=== PATIENT | female | born 1995 | race Caucasian/White ===

== ENCOUNTER 2019-06-24 11:21 | Emergency (ER) | payer OTHER, SELFPAY ==
[2019-06-24 11:31] VITALS: BP 129/71; PULSE 96; RESP 16; TEMP 36.8; O2SAT 99
--- NOTE | 2019-06-24 11:42 | ED.URI ---
HPI - URI/Sore Throat General Chief Complaint: Upper Respiratory Infection Stated Complaint: Sore Throat Time Seen by Provider: 06/24/19 11:42 Source: patient and RN notes reviewed History of Present Illness HPI Narrative: Patient is a 23-year-old female presents the urgent care with complaints of sore throat and fever for 2 days. Patient states she has been using Tylenol, throat spray, cough drops without much relief. No other acute complaints. No acute distress noted. Patient with a plan of care. Related Data Home Medications Medication Instructions Recorded Confirmed buspirone 15 mg DAILY 05/13/19 06/24/19 citalopram 40 mg DAILY 05/13/19 06/24/19 Allergies Allergy/AdvReac Type Severity Reaction Status Date / Time red (food color) Allergy Intermediate Hives / Verified 06/24/19 11:30 Red Face Guinea Pig Epithelium Allergy Intermediate Hives / Uncoded 06/24/19 11:30 Red Face rabbit Allergy Mild Hives / Uncoded 06/24/19 11:29 Red Face Review of Systems Review of Systems: Narrative: CONSTITUTIONAL: Reports a fever EYES: Denies visual changes, redness, or discharge. ENT: Reports of sore throat CARDIOVASCULAR: Denies chest pain, palpitations, or edema. RESPIRATORY: Denies cough or dyspnea. GASTROINTESTINAL: Denies abdominal pain, nausea, vomiting, or diarrhea. GENITOURINARY: Denies dysuria or hematuria. SKIN: Denies rash or itching. MUSCULOSKELETAL: Denies back pain, joint pain, or myalgia. NEUROLOGIC: Denies headache, numbness, or weakness. PMFSH Social History Social History (Updated 05/13/19 @ 12:55 by LIYA Mackey) Alcohol intake: never Substance use: never Gender identity (if verbalized by the patient): Female Comments At the time of my signature, I reviewed and agree with the nursing past medical, surgical, social, and family history. There is no relevant family history pertinent to the patient complaint. Exam Narrative: Exam Narrative: GENERAL: This is a well-nourished, well-developed patient, in no apparent distress. HEAD: normocephalic, atraumatic. EYES: PERRL. Sclera clear/white. Vision is grossly intact. EARS: External ears normal, auditory canals clear and without drainage, TMs normal without perforation. Hearing grossly intact. NOSE: External nose normal with no obvious nasal discharge, nares without redness, no rhinorrhea. THROAT: Mucous membranes moist, moderate erythema noted posterior oropharynx with moderate bilateral tonsillar edema, uvula midline. No exudate or ulceration noted. NECK: Neck supple, non-tender without lymphadenopathy CARDIOVASCULAR: Regular rate and rhythm without murmurs, gallops, or rubs. RESPIRATORY: Clear to auscultation. Breath sounds equal bilaterally. No wheezes, rales, or rhonchi. SKIN: warm, intact with no suspicious lesions or rash, good texture and turgor. NEURO: awake, alert, and oriented to person, place and time. There were no obvious focal neurologic abnormalities. EXTREMITIES: No clubbing, cyanosis, or edema. Course Vital Signs Vital signs: Vital Signs Temperature 98.2 F 06/24/19 11:31 Pulse Rate 96 06/24/19 11:31 Respiratory Rate 16 06/24/19 11:31 Blood Pressure 129/71 06/24/19 11:31 Pulse Oximetry 99 06/24/19 11:31 Temperature 98.2 F 06/24/19 11:31 Pulse Rate 96 06/24/19 11:31 Respiratory Rate 16 06/24/19 11:31 Blood Pressure 129/71 06/24/19 11:31 Pulse Oximetry 99 06/24/19 11:31 Reviewed MDM - URI/Sore Throat MDM Narrative Medical decision making narrative: Reviewed lab results with the patient. She is aware that strep swab was positive. Advised to complete antibiotic regimen as prescribed. Make sure to eat and drink with the medication. Use Tylenol/ibuprofen as needed for fever pain. Use Flonase and Zyrtec for postnasal drainage and sinus relief. Increase fluids and rest. Use humidifier at night. Follow-up with PCP within 2 to 5 days or for worsening symptoms or failure to imp
== END 2019-06-24 11:53 | disposition home or self-care (01) ==
PROVIDERS: Emergency Provider Nurse Practitioner Family; PCP Family Medicine
DX: J02.0 Streptococcal pharyngitis (principal); E28.2 Polycystic ovarian syndrome; F32.9 Major depressive disorder, single episode, unspecified; F41.9 Anxiety disorder, unspecified
CPT/HCPCS: 87880; 99213; G0463

== ENCOUNTER 2019-07-20 15:18 | Emergency (ER) | payer OTHER, SELFPAY ==
--- NOTE | ~2019-07-20 | XR_ITS ---
EXAMINATION: XR lumbar spine 2-3V DATE: 07/20/2019 18:26 INDICATION: Low back pain. TECHNIQUE: 3 views of lumbar spine were obtained. COMPARISON: Lumbar spine radiographs 01/28/2019, CT abdomen and pelvis 07/20/2019 FINDINGS: Bone alignment is normal. Vertebral body heights are normal. There is mildly decreased disc height at L1-L2. The facet joints are normal. IMPRESSION: 1. Mild lumbar spondylosis. Reviewed, dictated and finalized at location A. LEAD IMPRESSION: 1. Mild lumbar spondylosis.
--- NOTE | ~2019-07-20 | CT_ITS ---
EXAMINATION: CT abdomen pelvis w con DATE: 07/20/2019 18:11 INDICATION: Low abdominal pain. Blood in stool. TECHNIQUE: Computed tomography (CT) of the abdomen and pelvis was performed with 100 mL Omnipaque 350 intravenous contrast. Automated exposure control and iterative reconstruction technique were employe d. The dose-length product was 1528.19 mGy-cm. COMPARISON: CT abdomen and pelvis 06/28/2018 FINDINGS: The visualized portions of the lung bases are clear without pneumonia or pleural effusion. The heart size is normal. No pericardial effusion. The liver, gallbladder, spleen, pancreas, adrenal glands, and kidneys are normal. There are no dilated loops of bowel. The appendix is normal. There ar e no pathologically enlarged lymph nodes. There is no free intraperitoneal fluid. There is mild thora columbar spondylosis. IMPRESSION: 1. No etiology for the patient's symptoms. Reviewed, dictated and finalized at location A. T SERVICES DIRECTOR
[2019-07-20 16:03] VITALS: BP 148/84; PULSE 92; RESP 16; TEMP 37.4; O2SAT 100
[2019-07-20 16:18] LABS: Basophils Absolute Auto 0.1 K/mm3 (0.0-0.1); Basophils Percent Auto 1.1 % (0.2-1.2); Eosinophils Absolute Auto 0.6 K/mm3 (0-0.3); Eosinophils Percent Auto 5.8 % (0-4.4); Hematocrit 40.3 % (37.0-47.0); Hemoglobin 12.2 g/dL (12.0-15.0); Immature Granulocyte Absolute 0.04 K/mm3 (0.00-0.031); Immature Granulocyte Percent A 0.4 % (0-0.5); Lymphocytes Absolute Auto 2.67 K/mm3 (0.9-3.2); Lymphocytes Percent Auto 27.5 % (18.3-44.2); Mean Corpuscular HGB Conc 30.3 g/dl (32-36); Mean Corpuscular Hemoglobin 24.7 pg (26-34); Mean Corpuscular Volume 81.6 fl (80-100); Mean Platelet Volume 8.9 fl (7.4-10.4); Monocytes Absolute Auto 0.8 K/mm3 (0.1-0.6); Monocytes Percent Auto 8.1 % (2.6-8.5); Neutrophils Absolute Auto 5.6 K/mm3 (1.3-6.7); Neutrophils Percent Auto 57.1 % (45.5-73.1); Platelet Count Result 436 k/mm3 (150-375); Red Blood Count 4.94 M/mm3 (4.2-5.4); Red Cell Distribution Width 14.5 % (11.5-14.5); White Blood Count 9.7 K/mm3 (4.5-10.0)
[2019-07-20 16:25] LABS: Add Urine Microscopic? NO; Appearance Urine Clear (Clear); Bilirubin Urine Negative (Negative); Blood Urine Negative (Negative); Color Urine Yellow (Yellow); Glucose Urine UA Negative (Negative); Ketones Urine Negative (Negative); Leukocyte Esterase Ur Negative LEU/UL (Negative); Nitrate Urine Negative (Negative); Protein Urine Negative (Negative); Specific Grav Ur 1.023 (1.001-1.035); Urobilinogen Urine Negative mg/dL (<2.0)
[2019-07-20 16:32] LABS: Alanine Aminotransferase 22 U/L (4-35); Albumin Level 4.7 g/dL (3.5-5.1); Alkaline Phosphatase 91 U/L (38-126); Aspartate Amino Transferase 26 U/L (14-36); Bilirubin,Total 0.4 mg/dL (0.2-1.3); Blood Urea Nitrogen 10 mg/dL (7-17); Calcium 9.4 mg/dL (8.4-10.2); Carbon Dioxide 24 mmol/L (22-30); Chloride 103 mmol/L (98-107); Estimated CRCL calculation 145 ml/min; Estimated Glomerular Filt Rate > 60; Glucose 89 mg/dL (65-105); Lipase 42 U/L (23-300); Potassium 4.1 mmol/L (3.4-5.0); Sodium 139 mmol/L (137-145)
--- NOTE | 2019-07-20 17:45 | ED.ABDPAIN ---
HPI - Abdominal Pain General Chief Complaint: Abdominal Pain Stated Complaint: abd pain/back pain Time Seen by Provider: 07/20/19 17:35 Source: patient Mode of arrival: ambulatory Limitations: no limitations History of Present Illness HPI narrative: 23 yo female who presents with c/o bilateral lower abdominal pain with rectal bleeding. Patient states she noticed starting Saturday she develop bilateral lower abdominal pain. She also noticed bright red blood in her underwear and occasion blood with she wipes. She has increased frequency in stools today, and she reports 4 BMs. She reports nausea but no vomiting. She states she has a diagnosis of IBS. PAtient is also complaining lower back burning pain since Saturday. She reports chronic back issues in the past. MD elicited complaint: abdominal pain Onset (ago): day(s) Pain Consistency: constant Location: RLQ and LLQ Quality: burning Exacerbating factors: nothing Relieving factors: nothing Related Data Allergies Allergy/AdvReac Type Severity Reaction Status Date / Time red (food color) Allergy Intermediate Hives / Verified 07/20/19 17:43 Red Face Guinea Pig Epithelium Allergy Intermediate Hives / Uncoded 07/20/19 17:43 Red Face rabbit Allergy Mild Hives / Uncoded 07/20/19 17:43 Red Face Review of Systems Review of Systems: All systems reviewed & are unremarkable except as noted in HPI and below Constitutional: Constitutional: Denies chills and Denies fever(s) Cardiovascular: Cardiovascular: Denies chest pain Gastrointestinal: Gastrointestinal: Reports abdominal pain, Reports nausea and Denies vomiting Genitourinary: Genitourinary: Denies abnormal vaginal bleeding Comments: irregular menses present Musculoskeletal: Musculoskeletal: Reports back pain Neurologic: Denies dizziness and Denies weakness PMFSH Past Medical History Medical History (Updated 07/20/19 @ 19:19 by Sara Oliveira MD) Diverticulosis IBS (irritable bowel syndrome) Social History Social History (Updated 05/13/19 @ 12:55 by LIYA Mackey) Alcohol intake: never Substance use: never Gender identity (if verbalized by the patient): Female Exam Narrative: Exam Narrative: GENERAL: Well-appearing, well-nourished, and in no acute distress. obese HEAD: Normocephalic, atraumatic EYES: PERRLA and EOMI, conjunctiva clear without discharge THROAT:Mucous membranes moist, Oropharynx normal without erythema, exudate, peritonsillar swelling or fluctuance NECK: Supple, without lymphadenopathy or mass RESPIRATORY: No respiratory distress, Airway patent, Respirations non-labored, Clear to auscultation without rales, rhonchi or wheeze HEART: Regular rate and rhythm. No murmur heard. Normal peripheral pulses. ABDOMEN: Soft, Bilateral lower abdominal tenderness, nondistended, normal active bowel sounds. No masses. No rebound or guarding, No organomegaly. EXTREMITIES: No edema, normal strength with full range of motion. SKIN: Warm, dry, normal color without rash NEURO: Alert and oriented x3. CN 2-12 grossly intact. No focal deficits. PSYCH: Normal mood and affect. GI: Rectal Exam: normal sphincter tone Other: no blood on rectal exam Course Reevaluation(s) Reevaluation #1: I discussed with patient labs are unremarkable. CT is unremarkable. She denies lower extremity weakness, urinary retention, numbness or tingling. Date: 07/20/19 Time: 19:17 Vital Signs Vital signs: Vital Signs Temperature 99.4 F 07/20/19 16:03 Pulse Rate 92 07/20/19 16:03 Respiratory Rate 16 07/20/19 16:03 Blood Pressure 148/84 H 07/20/19 16:03 Pulse Oximetry 100 07/20/19 16:03 Temperature 98.1 F 07/20/19 19:39 Pulse Rate 85 07/20/19 19:39 Respiratory Rate 18 07/20/19 19:39 Blood Pressure 143/84 H 07/20/19 19:39 Pulse Oximetry 100 07/20/19 19:39 MDM - Abdominal Pain Lab Data Attestation: I reviewed the patient's lab results. Result diagrams: 0
--- NOTE | 2019-07-20 18:21 | PC.NURSE ---
RN attempted x2 to administer medication ordered, patient in radiology again.
[2019-07-20] MEDS: LACTATED RINGERS 1,000 ML 999 ML IV CONT (18:31)
[2019-07-20] MEDS: ONDANSETRON INJ 4 MG/2 ML VIAL IV PUSH (18:31)
[2019-07-20 18:32] VITALS: BP 129/71; PULSE 83; RESP 19; O2SAT 100
[2019-07-20] MEDS: MORPHINE SULFATE 4 MG/ML INJ IV PUSH (18:32)
[2019-07-20 19:02] VITALS: TEMP 37.4
[2019-07-20 19:12] VITALS: BP 128/78; PULSE 83; RESP 19; O2SAT 100
[2019-07-20 19:39] VITALS: BP 143/84; PULSE 85; RESP 18; TEMP 36.7; O2SAT 100
== END 2019-07-20 19:42 | disposition home or self-care (01) ==
PROVIDERS: Emergency Provider General Practice; PCP Family Medicine
DX: R10.32 Left lower quadrant pain (principal); R10.31 Right lower quadrant pain; K62.5 Hemorrhage of anus and rectum; M54.5 Low back pain; M47.816 Spondylosis without myelopathy or radiculopathy, lumbar region
CPT/HCPCS: 36415; 72100; 74177; 80053; 81003; 81025; 83690; 85025; 96361; 96374; 96375; 99284; J2270; J2405; J7120; Q9967

== ENCOUNTER 2019-07-31 14:42 | Emergency (ER) | payer OTHER, SELFPAY ==
--- NOTE | 2019-07-31 14:54 | ED.GENADULT ---
HPI - General Adult General Chief complaint: Upper Respiratory Infection Stated complaint: Cough/Fatigue/Wheezing Time Seen by Provider: 07/31/19 15:11 Source: patient Mode of arrival: ambulatory Limitations: no limitations History of Present Illness HPI narrative: 23-year-old female patient presents to the [facility] with complaints of cold symptoms for the past week. Patient states about a week ago she was diagnosed with influenza was placed on Tamiflu. Patient states she continues to have a cough. Patient denies any fevers at this time but states that she feels like her cough is getting worse. Patient does have history of bronchitis before in the past. Patient denies being a smoker. Patient states that she did get a flu shot this year. Patient denies any asthma, COPD or emphysema. Patient denies taking anything for her cough. Patient states that she does have an inhaler from a couple months ago when she had bronchitis but states that she has not used it yet for her cough. Related Data Home Medications Medication Instructions Recorded Confirmed buspirone 15 mg PO BID 07/31/19 07/31/19 norethindrone (contraceptive) 0.35 mg DAILY 07/31/19 07/31/19 [Ortho Micronor] Allergies Allergy/AdvReac Type Severity Reaction Status Date / Time red (food color) Allergy Intermediate Hives / Verified 07/20/19 17:43 Red Face nitrofurantoin Allergy Itching Verified 07/31/19 15:04 [From Macrobid] Guinea Pig Epithelium Allergy Intermediate Hives / Uncoded 07/20/19 17:43 Red Face rabbit Allergy Mild Hives / Uncoded 07/20/19 17:43 Red Face Review of Systems Review of Systems: Narrative: CONSTITUTIONAL: Denies fever, chills, or sweats. EYES: Denies visual changes, redness, or discharge. ENT: Denies rhinorrhea, congestion, sore throat, or otalgia. CARDIOVASCULAR: Denies chest pain, palpitations, or edema. RESPIRATORY: Positive cough, denies dyspnea. GASTROINTESTINAL: Denies abdominal pain, nausea, vomiting, or diarrhea. GENITOURINARY: Denies dysuria or hematuria. SKIN: Denies rash or itching. MUSCULOSKELETAL: Denies back pain, joint pain, or myalgia. NEUROLOGIC: Denies headache, numbness, or weakness. PSYCHIATRIC: Denies anxiety or depression. [facility] Past Medical History Medical History Diverticulosis IBS (irritable bowel syndrome) Social History Social History Alcohol intake: never Substance use: never Gender identity (if verbalized by the patient): Female Comments At the time of my signature I agree with nursing past medical history, surgical, social, and family history. There is no relevant family history pertinent to the presenting complaint. Exam Narrative: Exam Narrative: GENERAL: Well-appearing, well-nourished, and in no acute distress. HEAD: Normocephalic, atraumatic. EYES: PERRLA and EOMI. ENT: Nares clear, no rhinorrhea or epistaxis. Mucous membranes moist. Bilateral TMs with no erythema, tonsillar margin, exudates or lesions present. Posterior pharynx with no erythema, tonsillar margin, exudates or lesions present. NECK: Supple. No lymphadenopathy CHEST: Clear to auscultation. No respiratory distress. Patient able talk in clear complete sentences. No tripoding noted. HEART: Regular rate and rhythm. No murmur heard. Normal peripheral pulses. ABDOMEN: Soft, nontender, nondistended, normal active bowel sounds. EXTREMITIES: Normal range of motion. No edema. SKIN: Warm, dry, no rash. NEURO: No focal deficits. Alert and oriented x3. Course Vital Signs Vital signs: Vital Signs Temperature 37.4 C 07/31/19 14:58 Pulse Rate 98 07/31/19 14:58 Respiratory Rate 18 07/31/19 14:58 Blood Pressure 118/64 07/31/19 14:58 Temperature 37.4 C 07/31/19 14:58 Pulse Rate 98 07/31/19 14:58 Respiratory Rate 18 07/31/19 14:58 Blood Pressure 118/64 07/31/19 14:58 Lindy
[2019-07-31 14:58] VITALS: BP 118/64; PULSE 98; RESP 18; TEMP 37.4
== END 2019-07-31 15:20 | disposition home or self-care (01) ==
PROVIDERS: Emergency Provider Nurse Practitioner Family
DX: J06.9 Acute upper respiratory infection, unspecified (principal); E28.2 Polycystic ovarian syndrome; F41.9 Anxiety disorder, unspecified; F32.9 Major depressive disorder, single episode, unspecified
CPT/HCPCS: 99211; G0463

== ENCOUNTER 2019-09-18 17:52 | Emergency (ER) | payer OTHER, SELFPAY ==
--- NOTE | ~2019-09-18 | XR_ITS ---
EXAMINATION: XR wrist RT min 3V INDICATION: Right wrist pain TECHNIQUE: Four views of the right wrist are obtained. COMPARISON: None available FINDINGS: There is no fracture, dislocation, or subluxation. The bones, soft tissues, and joint space s are normal. Apparent mild dorsal displacement of the distal ulna is likely due to positioning. IMPRESSION: 1. No acute osseous abnormality. Reviewed, dictated and finalized at location A.
--- NOTE | ~2019-09-18 | XR_ITS ---
EXAMINATION: XR hand RT min 3V INDICATION: Right hand pain TECHNIQUE: Right hand pain COMPARISON: None available FINDINGS: There is no fracture, dislocation, or subluxation. The bones, soft tissues, and joint space s are normal. IMPRESSION: 1. No acute osseous abnormality. Reviewed, dictated and finalized at location A.
[2019-09-18 18:04] VITALS: BP 156/96; PULSE 125; RESP 20; TEMP 36.7; O2SAT 100
--- NOTE | 2019-09-18 18:26 | ED.GENADULT ---
HPI - General Adult General Chief complaint: Extremity Injury, Upper <ARELI Palacio Last Filed: 09/18/19 19:01> Stated complaint: R arm injury <ARELI Palacio Last Filed: 09/18/19 19:01> Time Seen by Provider: 09/18/19 18:07 <ARELI Palacio Last Filed: 09/18/19 19:01> Source: patient <ARELI Palacio Last Filed: 09/18/19 19:01> Mode of arrival: ambulatory <ARELI Palacio Last Filed: 09/18/19 19:01> Limitations: no limitations <ARELI Palacio Last Filed: 09/18/19 19:01> History of Present Illness HPI narrative: Patient is a 24-year-old female who presents to emergency department for evaluation of right wrist and hand pain that occurred after punching an object patient was frustrated when she struck the object has since had bruising swelling and tenderness along the lateral aspect of the right hand and wrist patient notes aching pain worse with activity and movement has not taken anything for symptoms and denies other complaints <ARELI Palacio Last Filed: 09/18/19 19:01> Related Data Home medications: Home Medications Medication Instructions Recorded Confirmed buspirone 15 mg PO BID 07/31/19 07/31/19 norethindrone (contraceptive) 0.35 mg DAILY 07/31/19 07/31/19 [Ortho Micronor] <ARELI Palacio Last Filed: 09/18/19 19:01> Allergies/adverse reactions: Allergies Allergy/AdvReac Type Severity Reaction Status Date / Time red (food color) Allergy Intermediate Hives / Verified 07/20/19 17:43 Red Face nitrofurantoin Allergy Itching Verified 07/31/19 15:04 [From Macrobid] Guinea Pig Epithelium Allergy Intermediate Hives / Uncoded 07/20/19 17:43 Red Face rabbit Allergy Mild Hives / Uncoded 07/20/19 17:43 Red Face <ARELI Palacio Last Filed: 09/18/19 19:01> Review of Systems Review of Systems: All systems reviewed & are unremarkable except as noted in HPI and below <Steve Solis PA-C - Last Filed: 09/18/19 19:01> [facility] Past Medical History Medical History: Medical History Diverticulosis IBS (irritable bowel syndrome) <Steve Solis PA-C - Last Filed: 09/18/19 19:01> Social History Social History: Social History Alcohol intake: never Substance use: never Gender identity (if verbalized by the patient): Female <Steve Solis PA-C - Last Filed: 09/18/19 19:01> Exam Narrative: Exam Narrative: GENERAL: Well-appearing, well-nourished, and in no acute distress. HEAD: Normocephalic, atraumatic. EYES: PERRLA and EOMI. ENT: Nares clear, no rhinorrhea or epistaxis. Mucous membranes moist. EXTREMITIES: Normal range of motion. No edema. Bruising swelling and tenderness along the ulnar aspect of the fifth metacarpal and ulnar aspect of the wrist SKIN: Warm, dry, no rash. NEURO: No focal deficits. Alert and oriented x3. Neurovascularly intact. Capillary refill less than 2 seconds PSYCH: Normal mood and affect. <Steve Solis PA-C - Last Filed: 09/18/19 19:01> Course Course Emergency Course: Patient in the room in no distress aware of case findings treatment plan and diagnosis agreeing to follow-up as directed or to return if symptoms worsen or concerns <Steve Solis PA-C - Last Filed: 09/18/19 19:01> Vital Signs Vital signs: Vital Signs Temperature 36.7 C 09/18/19 18:04 Pulse Rate 125 H 09/18/19 18:04 Respiratory Rate 09/18/19 18:04 Blood Pressure 156/96 H 09/18/19 18:04 Pulse Oximetry 100 09/18/19 18:04 Temperature 36.7 C 09/18/19 18:04 Pulse Rate 125 H 09/18/19 18:04 Respiratory Rate 09/18/19 18:04 Blood Pressure 156/96 H 09/18/19 18:04 Pulse Oximetry 100 09/18/19 18:04 <Steve Solis PA-C - Last Filed: 09/18/19 19:01> Vital Signs T
== END 2019-09-18 19:52 | disposition home or self-care (01) ==
PROVIDERS: Emergency Provider Emergency Medicine
DX: S63.501A Unspecified sprain of right wrist, initial encounter (principal); S66.911A Strain of unspecified muscle, fascia and tendon at wrist and hand level, right hand, initial encounter; K58.9 Irritable bowel syndrome, unspecified; W22.8XXA Striking against or struck by other objects, initial encounter
CPT/HCPCS: 73110; 73130; 99283

== ENCOUNTER 2019-11-10 16:55 | Emergency (ER) | payer OTHER, SELFPAY ==
[2019-11-10 17:06] VITALS: BP 145/87; PULSE 90; RESP 16; TEMP 36.8; O2SAT 99
--- NOTE | 2019-11-10 17:12 | ED.GENADULT ---
HPI - General Adult General Chief complaint: Urogenital-Female Stated complaint: posible Uti Time Seen by Provider: 11/10/19 17:12 Source: patient Mode of arrival: ambulatory Limitations: no limitations History of Present Illness HPI narrative: 24-year-old female patient presents to the [facility] with complaints of painful urination for the past 2 days. Patient states she has urgency frequency and at times she is not able to go but feels like she has a lot of pressure to her lower abdomen. Slight back pain. Denies any fevers, nausea, vomiting or diarrhea. Denies any or breast-feeding at this time Related Data Home Medications Medication Instructions Recorded Confirmed norethindrone (contraceptive) 0.35 mg DAILY 07/31/19 07/31/19 [Ortho Micronor] budesonide-formoterol [Symbicort] INHALATION 11/10/19 cetirizine mg 11/10/19 montelukast mg 11/10/19 Allergies Allergy/AdvReac Type Severity Reaction Status Date / Time red (food color) Allergy Intermediate Hives / Verified 07/20/19 17:43 Red Face nitrofurantoin Allergy Itching Verified 07/31/19 15:04 [From Macrobid] Guinea Pig Epithelium Allergy Intermediate Hives / Uncoded 07/20/19 17:43 Red Face rabbit Allergy Mild Hives / Uncoded 07/20/19 17:43 Red Face Review of Systems Review of Systems: Narrative: CONSTITUTIONAL: Denies fever, chills, or sweats. EYES: Denies visual changes, redness, or discharge. ENT: Denies rhinorrhea, congestion, sore throat, or otalgia. CARDIOVASCULAR: Denies chest pain, palpitations, or edema. RESPIRATORY: Denies cough or dyspnea. GASTROINTESTINAL: Denies abdominal pain, nausea, vomiting, or diarrhea. GENITOURINARY: Denies dysuria or hematuria. Positive pain with urination, urgency and frequency x2 days SKIN: Denies rash or itching. MUSCULOSKELETAL: Denies back pain, joint pain, or myalgia. NEUROLOGIC: Denies headache, numbness, or weakness. PSYCHIATRIC: Denies anxiety or depression. [facility] Past Medical History Medical History Diverticulosis IBS (irritable bowel syndrome) Social History Social History Alcohol intake: never Substance use: never Gender identity (if verbalized by the patient): Female Comments At the time of my signature I agree with nursing past medical history, surgical, social, and family history. There is no relevant family history pertinent to the presenting complaint. Exam Narrative: Exam Narrative: GENERAL: Well-appearing, well-nourished, and in no acute distress. HEAD: Normocephalic, atraumatic. EYES: PERRLA and EOMI. ENT: Nares clear, no rhinorrhea or epistaxis. Mucous membranes moist. NECK: Supple. No lymphadenopathy CHEST: Clear to auscultation. No respiratory distress. HEART: Regular rate and rhythm. No murmur heard. Normal peripheral pulses. ABDOMEN: Soft, flat, nondistended. No guarding, rebound tenderness, or rigid. No pulsatilla masses. Bowel sounds present in all four quadrants. No organomegaly. Negative Myrick?s sign. No periumbicial tenderness. Supra public tenderness. Good femoral pulses bilaterally. No hernia noted. No scars or surface trauma. Slight CVA tenderness on percussion to right side EXTREMITIES: Normal range of motion. No edema. SKIN: Warm, dry, no rash. NEURO: No focal deficits. Alert and oriented x3. Course Vital Signs Vital signs: Vital Signs Temperature 36.8 C 11/10/19 17:06 Pulse Rate 90 11/10/19 17:06 Respiratory Rate 16 11/10/19 17:06 Blood Pressure 145/87 H 11/10/19 17:06 Pulse Oximetry 99 11/10/19 17:06 Temperature 36.8 C 11/10/19 17:06 Pulse Rate 90 11/10/19 17:06 Respiratory Rate 16 11/10/19 17:06 Blood Pressure 145/87 H 11/10/19 17:06 Pulse Oximetry 99 11/10/19 17:06 Vital signs reviewed. The patient has been informed that they may have pre-hypertension or Hypertension based on a BP re
== END 2019-11-10 17:30 | disposition home or self-care (01) ==
PROVIDERS: Emergency Provider Nurse Practitioner Family
DX: N30.01 Acute cystitis with hematuria (principal); K58.9 Irritable bowel syndrome, unspecified; K57.90 Diverticulosis of intestine, part unspecified, without perforation or abscess without bleeding; E28.2 Polycystic ovarian syndrome; R03.0 Elevated blood-pressure reading, without diagnosis of hypertension
CPT/HCPCS: 81003; 87086; 99213; G0463

== ENCOUNTER 2020-03-14 06:29 | Emergency (ER) | payer OTHER, SELFPAY ==
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
--- NOTE | ~2020-03-14 | XR_ITS ---
XR knee RT min 4V, XR tibia fibula RT 2V 03/14/2020 08:25 INDICATION: Right knee and leg pain PROCEDURE: 4 views right knee and 2 views right tibia/fibula COMPARISON: No prior studies for comparison. FINDINGS: Fracture, dislocation or subluxation is not identified. The soft tissues appear within norm al limits. No foreign bodies are identified. IMPRESSION: 1: NO ACUTE BONE OR JOINT ABNORMALITY IDENTIFIED. Reviewed, dictated and finalized at location B. IMPRESSION: 1: NO ACUTE BONE OR JOINT ABNORMALITY IDENTIFIED.
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
[2020-03-14 06:39] VITALS: BP 153/83; PULSE 104; RESP 16; TEMP 37.1; O2SAT 100
[2020-03-14] MEDS: SODIUM CHLORIDE 0.9% IV 1,000 ML 999 ML IV CONT (06:59)
[2020-03-14] MEDS: MORPHINE SULFATE (*CRX) 4 MG/ML INJ IV PUSH (06:59)
[2020-03-14] MEDS: ONDANSETRON INJ 4 MG/2 ML VIAL IV PUSH (06:59)
--- NOTE | 2020-03-14 07:22 | PC.NURSE ---
patient unable to urinate at this time, will attempt again after x-ray.
[2020-03-14 07:27] LABS: Basophils Absolute Auto 0.1 K/mm3 (0.0-0.1); Basophils Percent Auto 0.5 % (0.2-1.2); Eosinophils Absolute Auto 0.2 K/mm3 (0-0.3); Eosinophils Percent Auto 1.4 % (0-4.4); Hematocrit 36.4 % (37.0-47.0); Hemoglobin 11.7 g/dL (12.0-15.0); Immature Granulocyte Absolute 0.07 K/mm3 (0.00-0.031); Immature Granulocyte Percent A 0.6 % (0-0.5); Lymphocytes Absolute Auto 1.54 K/mm3 (0.9-3.2); Mean Corpuscular HGB Conc 32.1 g/dl (32-36); Mean Corpuscular Hemoglobin 25.9 pg (26-34); Mean Corpuscular Volume 80.7 fl (80-100); Mean Platelet Volume 8.6 fl (7.4-10.4); Monocytes Absolute Auto 0.8 K/mm3 (0.1-0.6); Monocytes Percent Auto 7.3 % (2.6-8.5); Neutrophils Absolute Auto 8.4 K/mm3 (1.3-6.7); Neutrophils Percent Auto 76.2 % (45.5-73.1); Platelet Count Result 343 k/mm3 (150-375); Red Blood Count 4.51 M/mm3 (4.2-5.4); Red Cell Distribution Width 14.6 % (11.5-14.5)
[2020-03-14 07:33] LABS: Estimated CRCL calculation 145 ml/min; Estimated Glomerular Filt Rate > 60
[2020-03-14 07:39] LABS: Anion Gap 8 mmol/L (8-16); Blood Urea Nitrogen 10 mg/dL (7-17); Calcium 8.7 mg/dL (8.4-10.2); Carbon Dioxide 22 mmol/L (22-30); Chloride 108 mmol/L (98-107); Estimated CRCL calculation 145 ml/min; Estimated Glomerular Filt Rate > 60; Glucose 102 mg/dL (65-105); Potassium 3.8 mmol/L (3.4-5.0); Sodium 138 mmol/L (137-145)
[2020-03-14 08:39] VITALS: BP 129/66; PULSE 96; RESP 18; O2SAT 100
[2020-03-14 10:06] LABS: Add Urine Microscopic? NO; Appearance Urine Clear (Clear); Bacteria Urine Trace /hpf; Bilirubin Urine Negative (Negative); Blood Urine Negative (Negative); Color Urine Colorless (Yellow); Glucose Urine UA Negative (Negative); Ketones Urine Negative (Negative); Leukocyte Esterase Ur Negative LEU/UL (Negative); Mucus Urine Rare /lpf; Nitrate Urine Negative (Negative); Protein Urine Negative (Negative); Squamous Epithelial Cell Urine Few /hpf (Few); Urobilinogen Urine Negative mg/dL (<2.0); WBC Urine 0-3 /hpf
[2020-03-14 10:12] VITALS: BP 127/62; PULSE 98; RESP 24; O2SAT 100
[2020-03-14 10:16] LABS: Specific Grav Ur 1.032 (1.001-1.035)
[2020-03-14 10:22] LABS: Beta HCG Quantitative < 2.39 mIU/ML
[2020-03-14 10:36] VITALS: BP 146/87; PULSE 92; RESP 18; O2SAT 100
== END 2020-03-14 10:37 | disposition home or self-care (01) ==
PROVIDERS: Emergency Medicine; Emergency Provider Emergency Medicine
DX: R10.84 Generalized abdominal pain (principal); M25.561 Pain in right knee; S00.83XA Contusion of other part of head, initial encounter; V44.5XXA Car driver injured in collision with heavy transport vehicle or bus in traffic accident, initial encounter
CPT/HCPCS: 36415; 70450; 71046; 73564; 73590; 73610; 74177; 80048; 81003; 81025; 84702; 85025; 96361; 96374; 96375; 99284; J0131; J2270; J2405; J7030; Q9967

== ENCOUNTER 2020-04-14 12:48 | Emergency (ER) | payer OTHER, SELFPAY ==
[2020-04-14 12:55] VITALS: BP 129/94; PULSE 105; RESP 20; TEMP 36.7; O2SAT 100
--- NOTE | 2020-04-14 12:58 | ED.FEMALEGU ---
HPI - Female Genitourinary General Chief complaint: Urogenital-Female Stated complaint: UTI Time Seen by Provider: 04/14/20 12:58 Source: patient and RN notes reviewed History of Present Illness HPI Narrative: Patient is a 24-year-old female who presents the urgent care with complaints of urinary frequency and mid back pain. Patient states that started Saturday after not urinating after sex. Patient denies of any pain with urination, fever, nausea, vomiting, abdominal pain. Patient states that she took 1 dose of Azo last night and states that it did help her symptoms. No other acute complaints. No acute distress noted. Patient aware of the plan of care. Some parts of this dictation were generated by voice recognition software and may contain typographical and/or grammatical inaccuracies. Related Data Home Medications Medication Instructions Recorded Confirmed budesonide-formoterol [Symbicort] 2 puff INHALATION Q12H 04/14/20 04/14/20 cyclobenzaprine [Flexeril] 10 mg PO TID 04/14/20 04/14/20 etonogestrel [Nexplanon] 1 implant SUBDERMAL ONCE 04/14/20 04/14/20 montelukast [Singulair] 10 mg PO DAILY 04/14/20 04/14/20 tramadol [Ultram] 50 mg PO Q8-10H 04/14/20 04/14/20 Allergies Allergy/AdvReac Type Severity Reaction Status Date / Time red (food color) Allergy Intermediate Hives / Verified 07/20/19 17:43 Red Face nitrofurantoin Allergy Itching Verified 04/14/20 13:08 [From Macrobid] Guinea Pig Epithelium Allergy Intermediate Hives / Uncoded 07/20/19 17:43 Red Face rabbit Allergy Mild Hives / Uncoded 07/20/19 17:43 Red Face Review of Systems Review of Systems: Narrative: CONSTITUTIONAL: Denies fever, chills, or sweats. EYES: Denies visual changes, redness, or discharge. ENT: Denies rhinorrhea, congestion, sore throat, or otalgia. CARDIOVASCULAR: Denies chest pain, palpitations, or edema. RESPIRATORY: Denies cough or dyspnea. GASTROINTESTINAL: Denies abdominal pain, nausea, vomiting, or diarrhea. GENITOURINARY: Reports of urinary frequency SKIN: Denies rash or itching. MUSCULOSKELETAL: Reports of mid back pain NEUROLOGIC: Denies headache, numbness, or weakness. All other systems reviewed are negative, except as documented in HPI. [facility] Past Medical History Medical History Anxiety Depression Diverticulosis IBS (irritable bowel syndrome) Social History Social History Alcohol intake: never Substance use: never Gender identity (if verbalized by the patient): Female Comments At the time of my signature, I reviewed and agree with the nursing past medical, surgical, social, and family history. There is no relevant family history pertinent to the patient complaint. Exam Narrative: Exam Narrative: GENERAL: This is a well-nourished, well-developed patient, in no apparent distress. HEAD: normocephalic, atraumatic. EYES: PERRL. Sclera clear/white. Vision is grossly intact. EARS: External ears normal NOSE: External nose normal with no obvious nasal discharge, nares without redness, no rhinorrhea. THROAT: Mucous membranes moist NECK: Neck supple GASTROINTESTINAL: Abdomen soft, non-tender, nondistended. SKIN: warm, intact with no suspicious lesions or rash, good texture and turgor. NEURO: awake, alert, and oriented to person, place and time. There were no obvious focal neurologic abnormalities. EXTREMITIES: No clubbing, cyanosis, or edema. BACK: Mild bilateral CVA tenderness Course Vital Signs Vital signs: Vital Signs Temperature 98.1 F 04/14/20 12:55 Pulse Rate 105 H 04/14/20 12:55 Respiratory Rate 04/14/20 12:55 Blood Pressure 129/94 H 04/14/20 12:55 Pulse Oximetry 100 04/14/20 12:55 Temperature 98.1 F 04/14/20 12:55 Pulse Rate 105 H 04/14/20 12:55 Respiratory Rate 04/14/20 12:55 Blood Pressure 129/94 H 04/14/20 12:55 Pulse Oximetry 100 04/14/20
== END 2020-04-14 13:23 | disposition home or self-care (01) ==
PROVIDERS: Emergency Provider Nurse Practitioner Family; PCP Nurse Practitioner Family
DX: N39.0 Urinary tract infection, site not specified (principal)
CPT/HCPCS: 81003; 87077; 87086; 87088; 87186; 99213; G0463

== ENCOUNTER 2020-09-20 17:13 | Emergency (ER) | payer OTHER, SELFPAY ==
--- NOTE | ~2020-09-20 | XR_ITS ---
EXAMINATION: XR foot LT min 3V DATE: 09/20/2020 17:46 INDICATION: Pain, bruising and swelling at the left first metatarsal post fall one day prior. TECHNIQUE: Dorsoplantar, two oblique and lateral views of the left foot were obtained. COMPARISON: None. FINDINGS: Alignment is normal. No fracture. Joint spaces are normal. Soft tissues are unremarkable. IMPRESSION: 1. Negative left foot radiographs. Reviewed, dictated and finalized at location A.
[2020-09-20 17:15] VITALS: BP 157/95; PULSE 112; RESP 18; TEMP 36.1; O2SAT 100
[2020-09-20] MEDS: IBUPROFEN 600 MG TABLET PO (18:37)
--- NOTE | 2020-09-20 18:42 | ED.LOWEXIN ---
HPI - Extremity Injury (Lower) General Chief Complaint: Extremity Injury, Lower Stated Complaint: leg pain Time Seen by Provider: 09/20/20 18:17 Source: patient Mode of arrival: wheelchair Limitations: no limitations History of Present Illness HPI Narrative: This is a 25-year-old female that presents the emergency department for left foot pain after an injury today. Reports she slipped causing her to fall down a couple of steps. Reports since she has had pain on the medial aspect of her left foot. Worse with movement and relieved with rest. Denies hitting her head, loss consciousness, other injuries, decreased range of motion, or numbness. Related Data Home Medications Medication Instructions Recorded Confirmed budesonide-formoterol [Symbicort] 2 puff INHALATION Q12H 04/14/20 04/14/20 etonogestrel [Nexplanon] 1 implant SUBDERMAL ONCE 04/14/20 04/14/20 montelukast [Singulair] 10 mg PO DAILY 04/14/20 04/14/20 Zyrtec 09/20/20 famotidine 09/20/20 09/20/20 omeprazole 09/20/20 Allergies Allergy/AdvReac Type Severity Reaction Status Date / Time Rabbit Allergy Severe Hives,RED Verified 09/20/20 18:34 FACE red (food color) Allergy Intermediate Hives / Verified 07/20/19 17:43 Red Face nitrofurantoin Allergy Itching Verified 04/14/20 13:08 [From Macrobid] Guinea Pig Epithelium Allergy Intermediate Hives / Uncoded 07/20/19 17:43 Red Face Review of Systems Review of Systems: Narrative: CONSTITUTIONAL: Denies fever MUSCULOSKELETAL: Reports joint pain, and myalgia. NEUROLOGIC: Denies numbness All systems reviewed & are unremarkable except as noted in HPI and below PMFSH Past Medical History Medical History Anxiety Depression Diverticulosis IBS (irritable bowel syndrome) Social History Social History Alcohol intake: never Substance use: never Gender identity (if verbalized by the patient): Female Exam Narrative: Exam Narrative: GENERAL: Well-appearing, well-nourished, and in no acute distress. HEAD: Normocephalic, atraumatic. EYES: EOMI. EXTREMITIES: Normal range of motion. No edema or obvious deformity. Normal DP pulses, normal sensation SKIN: Warm, dry, no rash. NEURO: No focal deficits. Alert and oriented x3. PSYCH: Normal mood and affect Course Vital Signs Vital signs: Vital Signs Temperature 97.0 F L 09/20/20 17:15 Pulse Rate 112 H 09/20/20 17:15 Respiratory Rate 18 09/20/20 17:15 Blood Pressure 157/95 H 09/20/20 17:15 Pulse Oximetry 100 09/20/20 17:15 Temperature 97.0 F L 09/20/20 17:15 Pulse Rate 112 H 09/20/20 17:15 Respiratory Rate 18 09/20/20 17:15 Blood Pressure 157/95 H 09/20/20 17:15 Pulse Oximetry 100 09/20/20 17:15 MDM - Extremity Injury (Lower) MDM Narrative Medical decision making narrative: Patient presents the emergency department for left foot pain after an injury today. Left foot x-rays without acute osseous abnormalities. Patient instructed on care of foot sprain. She is to follow-up with her primary care doctor. She was given warnings to return to the ER Imaging Data Radiologist's impression: ITS Impressions Foot X-Ray 09/20/20 17:53 IMPRESSION: 1. Negative left foot radiographs. Critical Care Time Critical Care Time Critical Care Time: No Discharge Plan Discharge Clinical Impression: Sprain of foot, left Qualifiers: Encounter type: initial encounter Qualified Code(s): S93.602A - Unspecified sprain of left foot, initial encounter Patient Disposition: Home, Self-Care Condition: Stable Instructions: Foot Sprain (ED) Additional Instructions: Return to the emergency department if you experience fever, redness and swelling of your leg, numbness, or any other symptoms that are concerning to you Wear LELAND wrap and use crutches. No weight on the affected leg until able to bear
== END 2020-09-20 19:04 | disposition home or self-care (01) ==
PROVIDERS: Emergency Provider Emergency Medicine; PCP Nurse Practitioner Family
DX: S93.602A Unspecified sprain of left foot, initial encounter (principal); F41.9 Anxiety disorder, unspecified; F32.9 Major depressive disorder, single episode, unspecified; K58.9 Irritable bowel syndrome, unspecified; W10.9XXA Fall (on) (from) unspecified stairs and steps, initial encounter
CPT/HCPCS: 73630; 99283; A9270

== ENCOUNTER 2020-10-01 17:01 | Emergency (ER) | payer OTHER, SELFPAY ==
--- NOTE | ~2020-10-01 | XR_ITS ---
EXAMINATION: XR hip LT min 2V DATE: 10/01/2020 19:18 INDICATION: Left hip pain. TECHNIQUE: 2 views of left hip were obtained. COMPARISON: None. FINDINGS: Bone alignment is normal. No fracture. Left hip joint space is normal. IMPRESSION: 1. Normal left hip. Reviewed, dictated and finalized at location A. IMPRESSION: 1. Normal left hip.
--- NOTE | ~2020-10-01 | XR_ITS ---
EXAMINATION: XR knee LT 3V DATE: 10/01/2020 19:18 INDICATION: Left knee pain. TECHNIQUE: 3 views of left knee were obtained. COMPARISON: Left knee radiographs 03/14/2020 FINDINGS: Bone alignment is normal. No fracture. Joint spaces are well maintained. There is no knee j oint effusion. IMPRESSION: 1. Normal left knee. Reviewed, dictated and finalized at location A. IMPRESSION: 1. Normal left knee.
--- NOTE | ~2020-10-01 | XR_ITS ---
EXAMINATION: XR ankle LT min 3V DATE: 10/01/2020 19:18 INDICATION: Left ankle pain. TECHNIQUE: 4 views of left ankle were obtained. COMPARISON: Left ankle radiographs 03/14/2020 FINDINGS: Bone alignment is normal. No fracture. Joint spaces are well maintained. IMPRESSION: 1. Normal left ankle. Reviewed, dictated and finalized at location A. IMPRESSION: 1. Normal left ankle.
--- NOTE | ~2020-10-01 | XR_ITS ---
EXAMINATION: XR lumbar spine 2-3V DATE: 10/01/2020 19:18 INDICATION: Low back pain. TECHNIQUE: 2 views of lumbar spine were obtained. COMPARISON: Lumbar spine radiographs 07/20/2019 FINDINGS: There is 3 degrees dextrocurvature of lumbar spine. Vertebral body heights are normal. Ther e is mildly decreased disc height at L1-L2. The facet joints are normal. IMPRESSION: 1. Mild lumbar spondylosis. Reviewed, dictated and finalized at location A. IMPRESSION: 1. Mild lumbar spondylosis.
[2020-10-01 17:04] VITALS: BP 141/104; PULSE 118; RESP 16; TEMP 36.6; O2SAT 100
[2020-10-01 18:47] VITALS: BP 100/58; PULSE 108; RESP 18; O2SAT 100
--- NOTE | 2020-10-01 19:02 | ED.GENADULT ---
HPI - General Adult General Chief complaint: Extremity Injury, Lower Stated complaint: L LEG PAIN Time Seen by Provider: 10/01/20 17:17 Source: patient Mode of arrival: ambulatory Limitations: no limitations History of Present Illness HPI narrative: Patient presents for evaluation of pain in her left lower extremity. She was evaluated here on 09/20/20 following a fall. At that time she reported left foot pain. X-ray was negative for fracture. She indicates that she is experienced pain in the left lateral ankle since that time which is constant but worse with movement. She is also experienced pain in the left knee, left hip, and low back. States the pain in her left ankle is 6 out of 10 in severity, rating it 10 out of 10 in severity with movement. Pain in the left knee, left hip, low back is 4-10 in severity, which increases to 7 out of 10 with movement. She has experienced some numbness and tingling in the second, third, fourth, fifth digits of the left foot. She has been ambulating with crutches and has also been wearing an Medardo wrap. She states that Tylenol and ibuprofen have been ineffective and reducing her pain. She denies any pain in posterior aspect of the leg. Related Data Home Medications Medication Instructions Recorded Confirmed budesonide-formoterol [Symbicort] 2 puff INHALATION Q12H 04/14/20 04/14/20 etonogestrel [Nexplanon] 1 implant SUBDERMAL ONCE 04/14/20 04/14/20 montelukast [Singulair] 10 mg PO DAILY 04/14/20 04/14/20 Zyrtec 09/20/20 famotidine 09/20/20 09/20/20 omeprazole 09/20/20 Allergies Allergy/AdvReac Type Severity Reaction Status Date / Time Rabbit Allergy Severe Hives,RED Verified 10/01/20 17:03 FACE red (food color) Allergy Intermediate Hives / Verified 10/01/20 17:03 Red Face nitrofurantoin Allergy Itching Verified 10/01/20 17:03 [From Macrobid] Guinea Pig Epithelium Allergy Intermediate Hives / Uncoded 10/01/20 17:03 Red Face Review of Systems Review of Systems: Narrative: CONSTITUTIONAL: Denies fever, chills, or sweats. EYES: Denies visual changes, redness, or discharge. ENT: Denies rhinorrhea, congestion, sore throat, or otalgia. CARDIOVASCULAR: Denies chest pain, palpitations, or edema. RESPIRATORY: Denies cough or dyspnea. GASTROINTESTINAL: Denies abdominal pain, nausea, vomiting, or diarrhea. GENITOURINARY: Denies dysuria or hematuria. SKIN: Denies rash or itching. MUSCULOSKELETAL: Reports low back pain. Reports pain in the left hip, left knee, left ankle. Denies myalgia NEUROLOGIC: Denies headache, numbness, dizziness, or weakness. PSYCHIATRIC: Denies anxiety or depression. 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 HEAD: Normocephalic, atraumatic. EYES: PERRLA and EOMI. ENT: Nares clear, no rhinorrhea or epistaxis. Mucous membranes moist. Oropharynx without tonsillar hypertrophy exudate or other lesions. Bilateral TMs pearly bell nonbulging NECK: Supple. No adenopathy or masses. No carotid bruits or JVD CHEST: Leonardo
[2020-10-01] MEDS: HYDROcodone/acetaminophen (*CRX) 5-325 MG TABLET 2 TAB PO (19:03)
[2020-10-01 20:23] VITALS: BP 127/85; PULSE 88; RESP 18; TEMP 36.7; O2SAT 99
== END 2020-10-01 20:31 | disposition home or self-care (01) ==
PROVIDERS: Emergency Provider Nurse Practitioner; PCP Nurse Practitioner Family
DX: S93.402A Sprain of unspecified ligament of left ankle, initial encounter (principal); S86.912A Strain of unspecified muscle(s) and tendon(s) at lower leg level, left leg, initial encounter; S39.012A Strain of muscle, fascia and tendon of lower back, initial encounter; S70.02XA Contusion of left hip, initial encounter; K58.9 Irritable bowel syndrome, unspecified; M47.812 Spondylosis without myelopathy or radiculopathy, cervical region; W19.XXXA Unspecified fall, initial encounter
CPT/HCPCS: 72100; 73502; 73562; 73610; 99284; A9270

== ENCOUNTER 2021-09-23 08:30 | Emergency (ER) | payer OTHER, SELFPAY ==
--- NOTE | ~2021-09-23 | XR_ITS ---
XR wrist LT min 3V DATE: 09/23/2021 09:00 INDICATION: Fall 2 days ago. Left wrist pain. TECHNIQUE: 4 views COMPARISON: None FINDINGS: No fracture or dislocation, periosteal reaction or bone destruction, joint space narrowing, erosive change or chondrocalcinosis. IMPRESSION: Negative Reviewed, dictated and finalized at location A. IMPRESSION: Negative
--- NOTE | ~2021-09-23 | XR_ITS ---
XR elbow LT min 3V DATE: 09/23/2021 09:00 INDICATION: Fall. Left elbow pain, bruising TECHNIQUE: 4 views COMPARISON: None FINDINGS: No fracture or dislocation or joint effusion. No periosteal reaction or bone destruction. IMPRESSION: Negative Reviewed, dictated and finalized at location A. IMPRESSION: Negative
--- NOTE | ~2021-09-23 | XR_ITS ---
XR shoulder LT min 2V DATE: 09/23/2021 09:00 INDICATION: Fall 2 days ago. Left shoulder pain TECHNIQUE: 4 views COMPARISON: None FINDINGS: No fracture or dislocation, periosteal reaction or bone destruction or abnormal soft tissue calcification. IMPRESSION: Negative Reviewed, dictated and finalized at location A. IMPRESSION: Negative
[2021-09-23 08:40] VITALS: BP 127/80; PULSE 88; RESP 16; TEMP 36.4; O2SAT 100
--- NOTE | 2021-09-23 08:41 | ED.UPPEXIN ---
HPI - Extremity Injury (Upper) General Chief Complaint: Extremity Injury, Upper Stated Complaint: Left arm Pain Time Seen by Provider: 09/23/21 08:41 Source: patient, RN notes reviewed and old records reviewed Mode of arrival: ambulatory Limitations: no limitations History of Present Illness HPI narrative: 26-year-old female presents to the [facility] with complaints of left arm pain. Has bruising posterior distal humerus and elbow. Patient reports that she was in the shower when she lost her balance and fell into her left arm. Did not hit head. No loss of consciousness. No back or neck pain. Denies chest pain. Has full range of motion of the shoulder, elbow and wrist. Pain in the wrist, elbow and shoulder Has taken Tylenol with minimal relief. MD complaint: injury to: left, shoulder, elbow and wrist Related Data Home Medications Medication Instructions Recorded Confirmed budesonide-formoterol [Symbicort] 2 puff INHALATION Q12H 04/14/20 04/14/20 etonogestrel [Nexplanon] 1 implant SUBDERMAL ONCE 04/14/20 04/14/20 famotidine 09/20/20 09/20/20 albuterol sulfate INHALATION 09/23/21 09/23/21 bupropion HCl mg PO 09/23/21 norethindrone (contraceptive) mg 09/23/21 09/23/21 sertraline mg 09/23/21 trazodone 09/23/21 Allergies Allergy/AdvReac Type Severity Reaction Status Date / Time Rabbit Allergy Severe Hives,RED Verified 09/23/21 08:46 FACE red (food color) Allergy Intermediate Hives / Verified 09/23/21 08:46 Red Face nitrofurantoin Allergy Itching Verified 09/23/21 08:46 [From Macrobid] Guinea Pig Epithelium Allergy Intermediate Hives / Uncoded 09/23/21 08:46 Red Face Review of Systems Review of Systems: All systems reviewed & are unremarkable except as noted in HPI and below Constitutional: Constitutional: Reports no additional constitutional complaints, Denies chills, Denies fever(s), Denies headache(s) and Denies weakness Eyes: Eyes: Reports no additional eye complaints ENT: Reports system reviewed and no additional complaints, except as documented, Denies vertigo, Denies dizziness and Denies headache(s) Cardiovascular: Cardiovascular: Reports no additional cardiovascular complaints, Denies chest pain, Denies syncope and Denies dyspnea Respiratory: Respiratory: Reports no additional respiratory complaints, Denies cough and Denies dyspnea Gastrointestinal: Gastrointestinal: Reports no additional gastrointestinal complaints, Denies abdominal pain, Denies nausea and Denies vomiting Musculoskeletal: Musculoskeletal: Reports as per HPI, Reports arthralgias (Left shoulder, left elbow, left wrist), Denies joint swelling and Denies numbness Integumentary/Breasts: Skin/Breast: Reports as per HPI Comments: Bruising posterior elbow and distal humerus Neurologic: Reports system reviewed and no additional complaints, except as documented, Denies confusion, Denies vertigo, Denies dizziness, Denies syncope, Denies headache(s), Denies focal weakness, Denies numbness and Denies weakness Psychiatric: Psychiatric: Reports no additional psychiatric complaints and Denies confusion Allergic/Immunologic: Allergic/Immunologic: Reports no additional allergic/immunologic complaints PMFSH Past Medical History Medical History Anxiety Depression Diverticulosis IBS (irritable bowel syndrome) Surgical History Surgical History H/O oral surgery Family History Family History Mother COPD (chronic obstructive pulmonary disease) Social History Social History Smoking status: Never smoker Alcohol intake: never Substance use: never 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
== END 2021-09-23 09:17 | disposition home or self-care (01) ==
PROVIDERS: Emergency Provider Nurse Practitioner
DX: S40.022A Contusion of left upper arm, initial encounter (principal); F41.9 Anxiety disorder, unspecified; F32.9 Major depressive disorder, single episode, unspecified; W18.2XXA Fall in (into) shower or empty bathtub, initial encounter
CPT/HCPCS: 73030; 73080; 73110; 99214; G0463

== ENCOUNTER 2021-09-30 13:05 | Emergency (ER) | payer OTHER, SELFPAY ==
--- NOTE | ~2021-09-30 | XR_ITS ---
EXAMINATION:XR_[id number]_CR DATE: 09/30/2021 14:02 INDICATION: Cervical radiculopathy TECHNIQUE: AP, lateral, and odontoid views of the cervical spine are provided. COMPARISON: None FINDINGS: Alignment is normal. The odontoid is intact. No fracture is identified. Vertebral body heig hts and disk spaces are normal. Prevertebral soft tissues are normal. IMPRESSION: 1. No acute osseous abnormality. Reviewed, dictated and finalized at location A.
--- NOTE | ~2021-09-30 | XR_ITS ---
EXAMINATION: XR shoulder LT min 2V INDICATION: Left shoulder pain TECHNIQUE: Four views of the left shoulder are submitted. COMPARISON: 09/23/2021 FINDINGS: Normal alignment. No fracture. Glenohumeral and acromioclavicular joint spaces are normal. Soft tissues are unremarkable. IMPRESSION: 1. No acute osseous abnormality. Reviewed, dictated and finalized at location A.
[2021-09-30 13:08] VITALS: BP 134/94; PULSE 96; RESP 13; TEMP 36.8; O2SAT 99
--- NOTE | 2021-09-30 13:12 | PC.NURSE ---
pt to xray via w/c
--- NOTE | 2021-09-30 13:54 | ED.GENADULT ---
HPI - General Adult General Chief complaint: Extremity Injury, Upper <ARELI Gamble Last Filed: 09/30/21 15:26> Stated complaint: fall. arm pain <ARELI Gamble Last Filed: 09/30/21 15:26> Time Seen by Provider: 09/30/21 13:23 <ARELI Gamble Last Filed: 09/30/21 15:26> Source: patient <ARELI Gamble Last Filed: 09/30/21 15:26> Mode of arrival: ambulatory <ARELI Gamble Last Filed: 09/30/21 15:26> Limitations: no limitations <ARELI Gamble Last Filed: 09/30/21 15:26> History of Present Illness HPI narrative: Patient is a 26-year-old female who presents the ED with report of left shoulder pain. Patient reports she slipped and fell in the shower approximately 9 days ago landing on her shoulder. She did not hit her head or lose consciousness. She reports having pain mostly in her left shoulder that radiates down the left arm. Over the past 2 days, she has had tingling in her left hand. Denies any numbness or weakness. Patient denies any other injuries. Denies any neck or back pain or headache. She has been taking Tylenol and ibuprofen at home with mild relief of her pain. Patient does not have a primary care doctor. <ARELI Gamble Last Filed: 09/30/21 15:26> Related Data Home medications: Home Medications Medication Instructions Recorded Confirmed budesonide-formoterol [Symbicort] 2 puff INHALATION Q12H 04/14/20 09/23/21 etonogestrel [Nexplanon] 1 implant SUBDERMAL ONCE 04/14/20 09/23/21 famotidine 20 mg PO DAILY 09/20/20 09/23/21 albuterol sulfate 2 inh INHALATION DIRECTED 09/23/21 09/23/21 bupropion HCl 150 mg PO DIRECTED 09/23/21 09/23/21 norethindrone (contraceptive) mg 09/23/21 09/23/21 sertraline 100 mg PO DIRECTED 09/23/21 09/23/21 trazodone 50 mg PO DIRECTED 09/23/21 09/23/21 <Jayshree Greenwood PA-C - Last Filed: 09/30/21 15:26> Allergies/adverse reactions: Allergies Allergy/AdvReac Type Severity Reaction Status Date / Time Rabbit Allergy Severe Hives,RED Verified 09/30/21 13:11 FACE red (food color) Allergy Intermediate Hives / Verified 09/30/21 13:11 Red Face nitrofurantoin Allergy Itching Verified 09/30/21 13:11 [From Macrobid] fluoxetine [From Prozac] AdvReac Unknown Verified 09/30/21 13:11 Guinea Pig Epithelium Allergy Intermediate Hives / Uncoded 09/23/21 08:46 Red Face <Jayshree Greenwood PA-C - Last Filed: 09/30/21 15:26> Review of Systems Review of Systems: CONSTITUTIONAL: Denies fever, chills. CARDIOVASCULAR: Denies chest pain. RESPIRATORY: Denies dyspnea. GASTROINTESTINAL: Denies abdominal pain, nausea, vomiting. MUSCULOSKELETAL: Reports left shoulder pain, radiating down to left arm. Denies back or neck pain. NEUROLOGIC: Reports tingling to left hand. Denies headache, numbness, or weakness. <Jayshree Greenwood PA-C - Last Filed: 09/30/21 15:26> All systems reviewed & are unremarkable except as noted in HPI and below <Jayshree Greenwood PA-C - Last Filed: 09/30/21 15:26> [facility] Past Medical History Medical History: Medical History (Updated 09/30/21 @ 14:28 by Jayshree Greenwood PA-C) Anxiety Depression Diverticulosis IBS (irritable bowel syndrome) PCOS (polycystic ovarian syndrome) <Jayshree Greenwood PA-C - Last Filed: 09/30/21 15:26> Surgical History Surgical History: Surgical History H/O oral surgery <Jayshree Greenwood PA-C - Last Filed: 09/30/21 15:26> Family History Family History: Family History Mother COPD (chronic obstructive pulmonary disease) <Jayshree Greenwood PA-C - Last Filed: 09/30/21 15:26> Social History Social History: Social History Smoking status: Never smoker Alcohol intake: never Substance use: never Additional occupation/education com
== END 2021-09-30 14:33 | disposition home or self-care (01) ==
PROVIDERS: Emergency Provider Emergency Medicine
DX: S49.92XA Unspecified injury of left shoulder and upper arm, initial encounter (principal); R20.2 Paresthesia of skin; F41.9 Anxiety disorder, unspecified; F32.A Depression, unspecified; K58.9 Irritable bowel syndrome, unspecified; E28.2 Polycystic ovarian syndrome; W18.2XXA Fall in (into) shower or empty bathtub, initial encounter
CPT/HCPCS: 72040; 73030; 99283

== ENCOUNTER 2022-01-07 09:35 | Emergency (ER) | payer OTHER, SELFPAY ==
--- NOTE | ~2022-01-07 | XR_ITS ---
EXAMINATION: XR forearm LT 2V INDICATION: Left forearm pain TECHNIQUE: Two views of the left forearm are obtained. COMPARISON: None available FINDINGS: There is no fracture, dislocation, or subluxation. The bones, soft tissues, and joint space s are normal. IMPRESSION: 1. No acute osseous abnormality. Reviewed, dictated and finalized at location A.
--- NOTE | ~2022-01-07 | XR_ITS ---
EXAMINATION: XR humerus LT INDICATION: Left arm pain TECHNIQUE: Two views of the left humerus are obtained on three radiographs. COMPARISON: None available FINDINGS: Bone alignment is normal. There is no fracture. The soft tissues are unremarkable. IMPRESSION: 1. No acute osseous abnormality. Reviewed, dictated and finalized at location A.
[2022-01-07 09:43] VITALS: BP 113/57; PULSE 78; RESP 18; TEMP 36.5; O2SAT 100
--- NOTE | 2022-01-07 09:48 | ED.UPPEXIN ---
HPI - Extremity Injury (Upper) General Chief Complaint: Extremity Injury, Upper <Dionisio Roper APRN - Last Filed: 01/07/22 11:05> Stated Complaint: Left arm injury <Dionisio Roper APRN - Last Filed: 01/07/22 11:05> Time Seen by Provider: 01/07/22 09:50 <Dionisio Roper APRN - Last Filed: 01/07/22 11:05> Source: patient <Dionisio Roper APRN - Last Filed: 01/07/22 11:05> Mode of arrival: ambulatory <Dionisio Roper APRN - Last Filed: 01/07/22 11:05> Limitations: no limitations <Dionisio Roper APRN - Last Filed: 01/07/22 11:05> History of Present Illness HPI narrative: Mrs. Finney is a 26 year old female patient presenting to the clinic today with complaints of left arm pain. She reports that she fell on Saturday night when going down some steps. She reports she missed a couple steps and fell on her left arm. She reports there is a sharp pain going from her shoulder to her forearm. Denies any pain to the wrist but does have some periodic pain in the thumb. Also reports some pain over the left scapula. She denies any neck pain, or hitting her head, or any loss of consciousness when falling. Currently rates the pain 12/03. <Dionisio Roper APRN - Last Filed: 01/07/22 11:05> Related Data Home Medications: Home Medications Medication Instructions Recorded Confirmed budesonide-formoterol HFA 160 2 puff inhalation Q12H 04/14/20 01/07/22 mcg-4.5 mcg/actuation aerosol inhaler (Symbicort) albuterol sulfate 90 mcg/actuation 2 inh inhalation DIRECTED 09/23/21 01/07/22 aerosol inhaler norethindrone (contraceptive) 0.35 0.35 mg PO DAILY 09/23/21 01/07/22 mg tablet sertraline 100 mg tablet 200 mg PO DIRECTED 09/23/21 01/07/22 trazodone 50 mg tablet 100 mg PO DIRECTED 09/23/21 01/07/22 lamotrigine 100 mg tablet 100 mg PO DAILY 01/07/22 01/07/22 (Lamictal) <Dionisio Roper APRN - Last Filed: 01/07/22 11:05> Allergies/Adverse Reactions: Allergies Allergy/AdvReac Type Severity Reaction Status Date / Time Rabbit Allergy Severe Hives,RED Verified 01/07/22 09:41 FACE red (food color) Allergy Intermediate Hives / Verified 01/07/22 09:41 Red Face nitrofurantoin Allergy Itching Verified 01/07/22 09:41 [From Macrobid] fluoxetine [From Prozac] AdvReac Unknown Verified 01/07/22 09:41 Guinea Pig Epithelium Allergy Intermediate Hives / Uncoded 01/07/22 09:41 Red Face <Dionisio Roper APRN - Last Filed: 01/07/22 11:05> [facility] Past Medical History Medical History: Medical History (Updated 01/07/22 @ 10:06 by Dionisio Roper APRN) Anxiety Depression Diverticulosis IBS (irritable bowel syndrome) PCOS (polycystic ovarian syndrome) <Dionisio Roper APRN - Last Filed: 01/07/22 11:05> Surgical History Surgical History: Surgical History H/O oral surgery <Dionisio Roper APRN - Last Filed: 01/07/22 11:05> Family History Family History: Family History Mother COPD (chronic obstructive pulmonary disease) <Dionisio Roper APRN - Last Filed: 01/07/22 11:05> Social History Social History: Social History Smoking status: Never smoker Alcohol intake: never Substance use: never 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 There is no relevant family history pertinent to the patient complaint. <Dionisio Castro
--- NOTE | 2022-01-07 10:19 | PC.NURSE ---
Pt sent to [facility] for x-ray. Nurse report given to Teagan Griffith
== END 2022-01-07 11:08 | disposition home or self-care (01) ==
PROVIDERS: Emergency Provider Nurse Practitioner Family
DX: M79.622 Pain in left upper arm (principal); M79.632 Pain in left forearm; W10.9XXA Fall (on) (from) unspecified stairs and steps, initial encounter; F41.9 Anxiety disorder, unspecified; F32.A Depression, unspecified; E28.2 Polycystic ovarian syndrome
CPT/HCPCS: 73060; 73090; 99214; G0463

== ENCOUNTER 2022-08-05 15:12 | Emergency (ER) | payer OTHER, SELFPAY ==
--- NOTE | ~2022-08-05 | CT_ITS ---
Non-contrast CT scan of the Abdomen and Pelvis Clinical indication: Right flank pain Technique: 2.5 mm axial scans were obtained through the abdomen and pelvis without intravenous or or al contrast. Dose reduction technique was used on this scan by utilizing automated exposure control a nd iterative reconstruction technique. The dose-length product (DLP) was 1534.41 mGy-cm. COMPARISON: 03/14/2020 Findings: Images through the lung bases reveal no abnormalities. There is no evidence of renal or ureteral calculi. The kidneys and the ureters are nondilated. The liver, spleen, pancreas, gallbladder, and adrenals appear normal. There is no aortic aneurysm. There is no evidence of bowel obstruction. Normal appendix. Images through the pelvis were performed. There is no evidence of ascites or lymphadenopathy. Urinary bladder unremarkable. No adnexal mass seen. No ascites. Impression: Unremarkable exam. Reviewed, dictated and finalized at [facility]. Impression: Unremarkable exam.
[2022-08-05 15:18] VITALS: BP 122/64; PULSE 70; RESP 16; TEMP 36.8; O2SAT 100
[2022-08-05 15:40] LABS: Basophils Absolute Auto 0.1 K/mm3 (0.0-0.1); Basophils Percent Auto 0.6 % (0.2-1.2); Eosinophils Absolute Auto 0.2 K/mm3 (0-0.3); Eosinophils Percent Auto 1.4 % (0-4.4); Hematocrit 41.2 % (37.0-47.0); Hemoglobin 13.5 g/dL (12.0-15.0); Immature Granulocyte Absolute 0.03 K/mm3 (0.00-0.031); Immature Granulocyte Percent A 0.3 % (0-0.5); Lymphocytes Absolute Auto 2.48 K/mm3 (0.9-3.2); Lymphocytes Percent Auto 22.8 % (18.3-44.2); Mean Corpuscular HGB Conc 32.8 g/dl (32-36); Mean Corpuscular Hemoglobin 28.5 pg (26-34); Mean Corpuscular Volume 87.1 fl (80-100); Mean Platelet Volume 8.5 fl (7.4-10.4); Monocytes Percent Auto 9.1 % (2.6-8.5); Neutrophils Absolute Auto 7.2 K/mm3 (1.3-6.7); Neutrophils Percent Auto 65.8 % (45.5-73.1); Platelet Count Result 375 k/mm3 (150-375); Red Blood Count 4.73 M/mm3 (4.2-5.4); Red Cell Distribution Width 12.2 % (11.5-14.5); White Blood Count 10.9 K/mm3 (4.5-10.0)
[2022-08-05 15:49] LABS: Alanine Aminotransferase 16 U/L (6-35); Albumin Level 4.2 g/dL (3.5-5.1); Alkaline Phosphatase 86 U/L (38-126); Anion Gap 5 mmol/L (8-16); Aspartate Amino Transferase 22 U/L (14-36); Bilirubin,Total 0.5 mg/dL (0.2-1.3); Blood Urea Nitrogen 11 mg/dL (7-17); Calcium 8.7 mg/dL (8.4-10.2); Carbon Dioxide 30 mmol/L (22-30); Chloride 104 mmol/L (98-107); Estimated CRCL calculation 138 ml/min; Estimated Glomerular Filt Rate > 60; Glucose 103 mg/dL (65-110); Lipase 54 U/L (23-300); Potassium 4.1 mmol/L (3.4-5.0); Sodium 139 mmol/L (137-145)
[2022-08-05 16:40] LABS: Appearance Urine Turbid (Clear); Bacteria Urine Rare /hpf; Bilirubin Urine Negative (Negative); Blood Urine 3+ (Negative); Color Urine Dark Yellow (Yellow); Glucose Urine UA Negative (Negative); Ketones Urine Trace mg/dL (Negative); Leukocyte Esterase Ur Trace LEU/UL (Negative); Nitrate Urine Negative (Negative); Non Pathogenic Casts 0-2; Protein Urine 1+ mg/dL (Negative); RBC Urine >100 /hpf (0-2); Specific Grav Ur 1.021 (1.001-1.035); Squamous Epithelial Cell Urine Few /hpf (Few)
[2022-08-05 16:49] LABS: Add Urine Microscopic? YES
--- NOTE | 2022-08-05 18:11 | ED.ABDPAIN ---
HPI - Abdominal Pain General Chief Complaint: Abdominal Pain Stated Complaint: abodminal pain x 1 day Time Seen by Provider: 08/05/22 18:06 History of Present Illness HPI narrative: 26-year-old female with a history of kidney stones here for evaluation of right flank pain, lower abdominal pain nausea and vomiting today. Patient states that she woke up with a soreness in her right flank that has been intermittent in nature since developing. Patient states that when the pain comes it is severe in nature and occasionally radiates into her lower abdomen. 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 No fevers or chills, dysuria, urgency, frequency or hematuria. Denies any surgeries on her abdomen. Related Data Home Medications Medication Instructions Recorded Confirmed budesonide-formoterol HFA 160 2 puff inhalation Q12H 04/14/20 01/07/22 mcg-4.5 mcg/actuation aerosol inhaler (Symbicort) albuterol sulfate 90 mcg/actuation 2 inh inhalation DIRECTED 09/23/21 01/07/22 aerosol inhaler norethindrone (contraceptive) 0.35 0.35 mg PO DAILY 09/23/21 01/07/22 mg tablet sertraline 100 mg tablet 200 mg PO DIRECTED 09/23/21 01/07/22 trazodone 50 mg tablet 100 mg PO DIRECTED 09/23/21 01/07/22 lamotrigine 100 mg tablet 100 mg PO DAILY 01/07/22 01/07/22 (Lamictal) Allergies Allergy/AdvReac Type Severity Reaction Status Date / Time Rabbit Allergy Severe Hives,RED Verified 08/05/22 15:13 FACE red (food color) Allergy Intermediate Hives / Verified 08/05/22 15:13 Red Face adhesive Allergy Rash Verified 08/05/22 15:13 nitrofurantoin Allergy Itching Verified 08/05/22 15:13 [From Macrobid] fluoxetine [From Prozac] AdvReac Unknown Verified 08/05/22 15:13 Guinea Pig Epithelium Allergy Intermediate Hives / Uncoded 08/05/22 15:13 Red Face Review of Systems Review of Systems: Gen: Denies fevers or chills Eyes: Denies eye pain or visual change ENT: Denies congestion Respiratory: Denies shortness of breath or cough CV: Denies chest pain or palpitations GI: Reports lower abdominal pain, nausea, vomiting. Reports right flank pain. : Denies burning, urgency, frequency or hematuria Musculoskeletal: Denies back pain or muscle pain Neuro: Denies numbness, tingling, weakness or focal weakness Skin: Denies rash Except as documented, all other systems reviewed and negative [facility] Past Medical History Medical History Anxiety Depression Diverticulosis IBS (irritable bowel syndrome) PCOS (polycystic ovarian syndrome) Surgical History Surgical History H/O oral surgery Family History Family History Mother COPD (chronic obstructive pulmonary disease) Social History Social History Smoking status: Never smoker Alcohol intake: never Substance use: never Living arrangements: with family Occupation/Education: student 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 Obese. Head: Normocephalic and atraumatic. EYES: PERRLA/EOMI, conjunctivae clear NOSE: No nasal drainage EARS: External ear normal in appearance THROAT: Oropharynx is clear. Mucous membranes are moist. NECK: Supple. No adenopathy, no masses. RESPIRATORY: Airway patent, respirations nonlabored. Clear to auscultation bilaterally, no rales, rhonchi, wheezing. CARDIOVASCULAR: Regular rate and rhythm without murmurs, rubs, or gallops. ABDOMINAL: Slight tenderness to palpation in the supr
[2022-08-05] MEDS: SODIUM CHLORIDE 0.9% IV 1,000 ML 999 ML IV CONT ×2 (18:20→21:28)
[2022-08-05] MEDS: MORPHINE SULFATE (*CRX) 4 MG/ML INJ IV PUSH (18:21)
[2022-08-05 18:22] VITALS: BP 113/62; PULSE 71; RESP 15; O2SAT 100
[2022-08-05] MEDS: fentaNYL CITRATE INJ (*CRX) 100 MCG/2 ML VIAL 50 MCG IV PUSH (20:49)
[2022-08-05 20:54] VITALS: BP 103/63; PULSE 74; RESP 13; O2SAT 100
[2022-08-05 22:30] VITALS: BP 101/61; PULSE 69; RESP 15; O2SAT 99
== END 2022-08-05 22:56 | disposition home or self-care (01) ==
PROVIDERS: Emergency Medicine; Emergency Provider Physician Assistant
DX: N39.0 Urinary tract infection, site not specified (principal)
CPT/HCPCS: 36415; 74176; 80053; 81001; 81025; 83690; 85025; 87086; 87088; 96361; 96365; 96367; 96375; 99284; J0131; J0696; J2270; J3010; J7030

== ENCOUNTER 2022-09-17 08:36 | Emergency (ER) | payer OTHER, SELFPAY ==
--- NOTE | ~2022-09-17 | XR_ITS ---
EXAMINATION: XR chest 2V DATE: 09/17/2022 09:24 INDICATION: Shortness of breath. Congestion. TECHNIQUE: Frontal and lateral views of the chest were obtained. COMPARISON: Chest 2 views 03/14/2020 FINDINGS: The chest demonstrates clear lungs without pneumonia, pleural effusion, or pneumothorax. Th e heart size is normal. IMPRESSION: 1. No acute cardiopulmonary disease. Reviewed, dictated and finalized at location A.
[2022-09-17 08:48] VITALS: BP 130/73; PULSE 91; RESP 20; TEMP 36.7; O2SAT 100
--- NOTE | 2022-09-17 09:09 | ED.URI ---
HPI - URI/Sore Throat General Chief Complaint: Upper Respiratory Infection Stated Complaint: Sinus/Left Ear Irritation Time Seen by Provider: 09/17/22 09:09 Source: patient Mode of arrival: ambulatory Limitations: no limitations History of Present Illness HPI Narrative: 27-year-old female presents with complaint of nasal congestion, sinus pressure, bilateral ear pain, worse to left ear for the past 2 weeks. Patient reports that symptoms started after seeing summer intern and having allergy testing done. She reports that she has been coughing, using albuterol inhaler more than usual in the last week. Afebrile. States that drainage from nose has changed from clear to green. Is taking a daily antihistamine and Nasacort with no relief of symptoms. patient with like a chest x-ray today as she feels that she has pleurisy in her chest. All systems reviewed and negative except as noted above. Related Data Home Medications Medication Instructions Recorded Confirmed budesonide-formoterol HFA 160 2 puff inhalation Q12H 04/14/20 09/17/22 mcg-4.5 mcg/actuation aerosol inhaler (Symbicort) albuterol sulfate 90 mcg/actuation 2 inh inhalation DIRECTED 09/23/21 09/17/22 aerosol inhaler norethindrone (contraceptive) 0.35 0.35 mg PO DAILY 09/23/21 09/17/22 mg tablet sertraline 100 mg tablet 200 mg PO DIRECTED 09/23/21 09/17/22 trazodone 50 mg tablet 100 mg PO DIRECTED 09/23/21 09/17/22 lamotrigine 100 mg tablet 100 mg PO DAILY 01/07/22 09/17/22 (Lamictal) famotidine 40 mg tablet 40 mg PO DAILY 09/17/22 09/17/22 pantoprazole 40 mg tablet,delayed 40 mg PO DAILY 09/17/22 09/17/22 release propranolol 60 mg capsule,24 60 mg PO DAILY 09/17/22 09/17/22 hr,extended release triamcinolone acetonide 55 mcg 1 spray intranasal DIRECTED 09/17/22 09/17/22 nasal spray aerosol Allergies Allergy/AdvReac Type Severity Reaction Status Date / Time Rabbit Allergy Severe Hives,RED Verified 09/17/22 08:52 FACE red (food color) Allergy Intermediate Hives / Verified 09/17/22 08:52 Red Face adhesive Allergy Rash Verified 09/17/22 08:52 nitrofurantoin Allergy Itching Verified 09/17/22 08:52 [From Macrobid] fluoxetine [From Prozac] AdvReac Unknown Verified 09/17/22 08:52 Guinea Pig Epithelium Allergy Intermediate Hives / Uncoded 09/17/22 08:52 Red Face Review of Systems Review of Systems: CONSTITUTIONAL: Denies fever, chills, or sweats. EYES: Denies visual changes, redness, or discharge. ENT: Reports rhinorrhea, congestion, sore throat, or otalgia. CARDIOVASCULAR: Denies chest pain, palpitations, or edema. RESPIRATORY: reports cough. Denies dyspnea. GASTROINTESTINAL: Denies abdominal pain, nausea, vomiting, or diarrhea. GENITOURINARY: Denies dysuria or hematuria. SKIN: Denies rash or itching. MUSCULOSKELETAL: Denies back pain, joint pain, or myalgia. NEUROLOGIC: Denies headache, numbness, or weakness. PSYCHIATRIC: Denies anxiety or depression. All other systems reviewed are negative, except as documented in HPI. 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
== END 2022-09-17 09:40 | disposition home or self-care (01) ==
PROVIDERS: Emergency Provider Nurse Practitioner Family; PCP Family Medicine
DX: J01.90 Acute sinusitis, unspecified (principal); H65.02 Acute serous otitis media, left ear; E28.2 Polycystic ovarian syndrome; F41.9 Anxiety disorder, unspecified; F32.A Depression, unspecified
CPT/HCPCS: 71046; 99213; G0463

== ENCOUNTER 2023-04-06 23:40 | Emergency (ER) | payer OTHER, SELFPAY ==
--- NOTE | ~2023-04-06 | CT_ITS ---
EXAMINATION: CT abdomen pelvis w con DATE: 04/07/2023 01:40 INDICATION: Left lower quadrant abdominal pain. TECHNIQUE: Computed tomography (CT) of the abdomen and pelvis was performed with 100 mL Omnipaque 350 intravenous contrast. Automated exposure control and iterative reconstruction technique were employe d. The dose-length product was 1671.51 mGy-cm. COMPARISON: CT abdomen and pelvis 08/05/2022 FINDINGS: The visualized portions of the lung bases are clear without pneumonia or pleural effusion. The heart size is normal. No pericardial effusion. The liver, spleen, pancreas, gallbladder, adrenal glands, and kidneys are normal. There is fat stranding around an epiploic appendage of sigmoid colon, consistent with epiploic appendagitis. There are no dilated loops of bowel. The appendix is normal. There are no pathologically enlarged lymph nodes. There is no free intraperitoneal fluid. There is mi ld thoracic and lumbar spondylosis. IMPRESSION: 1. Epiploic appendagitis of sigmoid colon. Reviewed, dictated and finalized at location E. [employer] ASSA[employer] COUNSELOR
[2023-04-06 23:40] VITALS: BP 127/84; PULSE 88; RESP 20; TEMP 36.8; O2SAT 100
[2023-04-07] VITALS (21 sets, daily range): BP systolic 122–140; BP diastolic 64–80; PULSE 87–91; RESP 20–22; O2SAT 98–100
[2023-04-07 00:46] LABS: Basophils Absolute Auto 0.1 K/mm3 (0.0-0.1); Basophils Percent Auto 0.8 % (0.2-1.2); Eosinophils Absolute Auto 0.2 K/mm3 (0-0.3); Eosinophils Percent Auto 1.7 % (0-4.4); Hemoglobin 12.5 g/dL (12.0-15.0); Immature Granulocyte Absolute 0.05 K/mm3 (0.00-0.031); Immature Granulocyte Percent A 0.4 % (0-0.5); Lymphocytes Percent Auto 29.3 % (18.3-44.2); Mean Corpuscular HGB Conc 31.3 g/dl (32-36); Mean Corpuscular Hemoglobin 27.2 pg (26-34); Mean Platelet Volume 8.8 fl (7.4-10.4); Monocytes Absolute Auto 1.2 K/mm3 (0.1-0.6); Monocytes Percent Auto 10.6 % (2.6-8.5); Neutrophils Absolute Auto 6.4 K/mm3 (1.3-6.7); Neutrophils Percent Auto 57.2 % (45.5-73.1); Platelet Count Result 372 k/mm3 (150-375); Red Cell Distribution Width 12.6 % (11.5-14.5); White Blood Count 11.3 K/mm3 (4.5-10.0)
[2023-04-07 00:48] LABS: Appearance Urine Clear (Clear); Bilirubin Urine Negative (Negative); Blood Urine Negative (Negative); Color Urine Yellow (Yellow); Glucose Urine UA Negative (Negative); Ketones Urine Negative (Negative); Leukocyte Esterase Ur Negative LEU/UL (Negative); Nitrate Urine Negative (Negative); Protein Urine Negative (Negative); Specific Grav Ur 1.009 (1.001-1.035); Urobilinogen Urine 0.2 mg/dL (<2.0); pH Urine 5.5 (5.0-9.0)
[2023-04-07] MEDS: SODIUM CHLORIDE 0.9% IV 1,000 ML 999 ML IV CONT (00:48)
[2023-04-07] MEDS: ONDANSETRON INJ 4 MG/2 ML VIAL IV PUSH (00:48)
[2023-04-07] MEDS: MORPHINE SULFATE (*CRX) 4 MG/ML INJ IV PUSH ×2 (00:49→02:29)
[2023-04-07 00:58] LABS: Alanine Aminotransferase 20 U/L (6-35); Albumin Level 4.1 g/dL (3.5-5.1); Alkaline Phosphatase 80 U/L (38-126); Anion Gap 9 mmol/L (8-16); Aspartate Amino Transferase 23 U/L (14-36); Bilirubin,Total 0.4 mg/dL (0.2-1.3); Blood Urea Nitrogen 10 mg/dL (7-17); Carbon Dioxide 26 mmol/L (22-30); Chloride 105 mmol/L (98-107); Estimated CRCL calculation 113 ml/min; Estimated Glomerular Filt Rate > 60; Glucose 96 mg/dL (65-110); Lipase 72 U/L (23-300); Potassium 3.7 mmol/L (3.4-5.0); Sodium 140 mmol/L (137-145)
[2023-04-07 00:59] LABS: Add Urine Microscopic? NO
--- NOTE | 2023-04-07 04:12 | ED.GENADULT ---
HPI - General Adult General Chief complaint: Abdominal Pain Stated complaint: LLQ abd pain Time Seen by Provider: 04/07/23 00:14 History of Present Illness HPI narrative: Patient 14-year-old female who presents emerged from with chief complaint of abdominal pain. Patient reports around 2 AM started having pain in the left lower quadrant the patient reports that the pain is a sharp type pain reports is worse with movement and improved with rest. Patient states the symptoms are not improved by anything. Patient does report that she has history of polycystic ovarian disease reports no vomiting denies diarrhea reports that she had no prior intra-abdominal surgeries. Related Data Home Medications Medication Instructions Recorded Confirmed budesonide-formoterol HFA 160 2 puff inhalation Q12H 04/14/20 09/17/22 mcg-4.5 mcg/actuation aerosol inhaler (Symbicort) albuterol sulfate 90 mcg/actuation 2 inh inhalation DIRECTED 09/23/21 09/17/22 aerosol inhaler norethindrone (contraceptive) 0.35 0.35 mg PO DAILY 09/23/21 09/17/22 mg tablet sertraline 100 mg tablet 200 mg PO DIRECTED 09/23/21 09/17/22 trazodone 50 mg tablet 100 mg PO DIRECTED 09/23/21 09/17/22 lamotrigine 100 mg tablet 100 mg PO DAILY 01/07/22 09/17/22 (Lamictal) famotidine 40 mg tablet 40 mg PO DAILY 09/17/22 09/17/22 pantoprazole 40 mg tablet,delayed 40 mg PO DAILY 09/17/22 09/17/22 release propranolol 60 mg capsule,24 60 mg PO DAILY 09/17/22 09/17/22 hr,extended release triamcinolone acetonide 55 mcg 1 spray intranasal DIRECTED 09/17/22 09/17/22 nasal spray aerosol Allergies Allergy/AdvReac Type Severity Reaction Status Date / Time Rabbit Allergy Severe Hives,RED Verified 09/17/22 08:52 FACE red (food color) Allergy Intermediate Hives / Verified 09/17/22 08:52 Red Face adhesive Allergy Rash Verified 09/17/22 08:52 nitrofurantoin Allergy Itching Verified 09/17/22 08:52 [From Macrobid] fluoxetine [From Prozac] AdvReac Unknown Verified 09/17/22 08:52 Guinea Pig Epithelium Allergy Intermediate Hives / Uncoded 09/17/22 08:52 Red Face Review of Systems Review of Systems: A 10 system review of systems was completed on the patient and is negative except for what is stated in the HPI. Nursing and ancillary documentation was reviewed. 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 HEAD: Normocephalic, atraumatic. EYES: PERRLA and EOMI. ENT: Nares clear, no rhinorrhea or epistaxis. Mucous membranes moist. NECK: Supple. CHEST: Clear to auscultation. No respiratory distress. HEART: Regular rate and rhythm. No murmur heard. Normal peripheral pulses. ABDOMEN: Soft, tenderness to palpation in the left lower quadrant, nondistended, normal active bowel sounds. EXTREMITIES: Normal range of motion. No edema. SKIN: Warm, dry, no rash. NEURO: No focal deficits. Alert and oriented x3. PSYCH: Normal mood and affect. Course Vital Signs Vital signs:
[2023-04-07] MEDS: HYDROcodone/acetaminophen (*CRX) 5-325 MG TABLET 1 TAB PO (04:32)
== END 2023-04-07 04:45 | disposition home or self-care (01) ==
PROVIDERS: Emergency Provider Emergency Medicine; PCP Family Medicine
DX: K63.89 Other specified diseases of intestine (principal); K58.9 Irritable bowel syndrome, unspecified; E28.2 Polycystic ovarian syndrome; F41.9 Anxiety disorder, unspecified; F32.A Depression, unspecified
CPT/HCPCS: 36415; 74177; 80053; 81003; 81025; 83690; 85025; 96361; 96374; 96375; 96376; 99284; A9270; J2270; J2405; J7030; Q9967

== ENCOUNTER 2023-04-10 00:39 | Emergency (ER) | payer OTHER, SELFPAY ==
--- NOTE | ~2023-04-10 | CT_ITS ---
CT of the Abdomen and Pelvis: Indication: Abdominal pain Technique: 2.5 mm axial scans were obtained through the abdomen and pelvis following intravenous adm inistration of 100 cc of Omnipaque 350. Dose reduction technique was used on this scan by utilizing a utomated exposure control and iterative reconstruction technique. The dose-length product (DLP) was 1 889.04 mGy-cm. COMPARISON: 04/07/2023 Findings: Scans through the lung bases are unremarkable. The liver, spleen, pancreas, gallbladder, adrenals and kidneys are within normal limits. No evidence of aortic aneurysm. No lymphadenopathy. No bowel obstruction or bowel wall thickening. Again noted is probable subtle epiploic appendagitis a djacent to the proximal sigmoid colon. Normal appendix. Images through the pelvis were performed. Urinary bladder unremarkable. No adnexal mass seen. No asci joana. Impression: Subtle epiploic appendagitis adjacent to the proximal sigmoid colon, as seen on recent prior exam. Reviewed, dictated and finalized at [facility]. RNMENT OPERATIONS CONSULTANT Impression: Subtle epiploic appendagitis adjacent to the proximal sigmoid colon, as seen on recent prior exam.
[2023-04-10 00:50] VITALS: BP 130/88; PULSE 81; RESP 15; TEMP 37.1; O2SAT 100
[2023-04-10 00:58] LABS: Basophils Absolute Auto 0.1 K/mm3 (0.0-0.1); Basophils Percent Auto 0.6 % (0.2-1.2); Eosinophils Absolute Auto 0.2 K/mm3 (0-0.3); Hematocrit 40.3 % (37.0-47.0); Hemoglobin 12.8 g/dL (12.0-15.0); Immature Granulocyte Absolute 0.05 K/mm3 (0.00-0.031); Immature Granulocyte Percent A 0.4 % (0-0.5); Lymphocytes Absolute Auto 3.08 K/mm3 (0.9-3.2); Lymphocytes Percent Auto 26.5 % (18.3-44.2); Mean Corpuscular HGB Conc 31.8 g/dl (32-36); Mean Corpuscular Hemoglobin 27.4 pg (26-34); Mean Corpuscular Volume 86.3 fl (80-100); Mean Platelet Volume 8.8 fl (7.4-10.4); Monocytes Absolute Auto 0.8 K/mm3 (0.1-0.6); Neutrophils Absolute Auto 7.4 K/mm3 (1.3-6.7); Neutrophils Percent Auto 63.5 % (45.5-73.1); Platelet Count Result 422 k/mm3 (150-375); Red Blood Count 4.67 M/mm3 (4.2-5.4); Red Cell Distribution Width 12.4 % (11.5-14.5); White Blood Count 11.6 K/mm3 (4.5-10.0)
[2023-04-10 01:20] LABS: Alanine Aminotransferase 20 U/L (6-35); Albumin Level 4.2 g/dL (3.5-5.1); Alkaline Phosphatase 86 U/L (38-126); Anion Gap 11 mmol/L (8-16); Aspartate Amino Transferase 24 U/L (14-36); Bilirubin,Total 0.5 mg/dL (0.2-1.3); Blood Urea Nitrogen 8 mg/dL (7-17); Calcium 9.4 mg/dL (8.4-10.2); Carbon Dioxide 23 mmol/L (22-30); Chloride 106 mmol/L (98-107); Estimated CRCL calculation 143 ml/min; Estimated Glomerular Filt Rate > 60; Glucose 119 mg/dL (65-110); Lipase 56 U/L (23-300); Potassium 3.7 mmol/L (3.4-5.0); Sodium 140 mmol/L (137-145)
[2023-04-10 02:26] LABS: Appearance Urine Clear (Clear); Bilirubin Urine Negative (Negative); Blood Urine Negative (Negative); Color Urine Yellow (Yellow); Glucose Urine UA Negative (Negative); Ketones Urine Negative (Negative); Leukocyte Esterase Ur Negative LEU/UL (Negative); Nitrate Urine Negative (Negative); Protein Urine Negative (Negative); Urobilinogen Urine 0.2 mg/dL (<2.0); pH Urine 5.5 (5.0-9.0)
[2023-04-10 02:33] LABS: Add Urine Microscopic? NO
--- NOTE | 2023-04-10 04:09 | ED.ABDPAIN ---
HPI - Abdominal Pain General Chief Complaint: Abdominal Pain Stated Complaint: fever, abdominal pain, nausea Time Seen by Provider: 04/10/23 04:01 History of Present Illness HPI narrative: Patient presents to the emergency department with worsening left lower quadrant abdominal pain. She was seen in the emergency department 3 days ago and diagnosed with and epiploic appendagitis. She was sent home with Sheilayl for pain and she cannot take ibuprofen. She states pain has been gradually getting worse. She is also having fevers over 100 and diarrhea. Related Data Home Medications Medication Instructions Recorded Confirmed budesonide-formoterol HFA 160 2 puff inhalation Q12H 04/14/20 09/17/22 mcg-4.5 mcg/actuation aerosol inhaler (Symbicort) albuterol sulfate 90 mcg/actuation 2 inh inhalation DIRECTED 09/23/21 09/17/22 aerosol inhaler norethindrone (contraceptive) 0.35 0.35 mg PO DAILY 09/23/21 09/17/22 mg tablet sertraline 100 mg tablet 200 mg PO DIRECTED 09/23/21 09/17/22 trazodone 50 mg tablet 100 mg PO DIRECTED 09/23/21 09/17/22 lamotrigine 100 mg tablet 100 mg PO DAILY 01/07/22 09/17/22 (Lamictal) famotidine 40 mg tablet 40 mg PO DAILY 09/17/22 09/17/22 pantoprazole 40 mg tablet,delayed 40 mg PO DAILY 09/17/22 09/17/22 release propranolol 60 mg capsule,24 60 mg PO DAILY 09/17/22 09/17/22 hr,extended release triamcinolone acetonide 55 mcg 1 spray intranasal DIRECTED 09/17/22 09/17/22 nasal spray aerosol Allergies Allergy/AdvReac Type Severity Reaction Status Date / Time Rabbit Allergy Severe Hives,RED Verified 09/17/22 08:52 FACE red (food color) Allergy Intermediate Hives / Verified 09/17/22 08:52 Red Face adhesive Allergy Rash Verified 09/17/22 08:52 nitrofurantoin Allergy Itching Verified 09/17/22 08:52 [From Macrobid] fluoxetine [From Prozac] AdvReac Unknown Verified 09/17/22 08:52 Guinea Pig Epithelium Allergy Intermediate Hives / Uncoded 09/17/22 08:52 Red Face Review of Systems Review of Systems: Review of systems negative except what is documented in the [facility] Past Medical History Medical History Anxiety Depression Diverticulosis IBS (irritable bowel syndrome) PCOS (polycystic ovarian syndrome) Surgical History Surgical History H/O oral surgery Family History Family History Mother COPD (chronic obstructive pulmonary disease) Social History Social History Smoking status: Never smoker Alcohol intake: never Substance use: never Living arrangements: with family Occupation/Education: student 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 HEAD: Normocephalic, atraumatic. EYES: PERRLA and EOMI. ENT: Nares clear, no rhinorrhea or epistaxis. Mucous membranes moist. NECK: Supple. CHEST: Clear to auscultation. No respiratory distress. HEART: Regular rate and rhythm. ABDOMEN: Soft, nondistended, left side abdominal tenderness EXTREMITIES: Normal range of motion. No edema. SKIN: Warm, dry, no rash. NEURO: No focal deficits. Alert and oriented x3. PSYCH: Normal mood and affect. Course Course Emergency Course: Normally this will resolve spontaneously however patient's symptoms are getting worse and she reports low-grade fevers at home. Repeat CT ordered Vital Signs Vital signs: Vital Signs Temperature 37.1 C 04/10/23 00:50 Pulse Rate 81 04/10/23 00:50 Respiratory Rate 15 04/10/23 00:50 Blood Pressure
[2023-04-10 04:20] VITALS: BP 140/80; PULSE 82; RESP 15; TEMP 36.6; O2SAT 100
[2023-04-10] MEDS: HYDROcodone/acetaminophen (*CRX) 5-325 MG TABLET 1 TAB PO (04:20)
[2023-04-10] MEDS: ONDANSETRON INJ 4 MG/2 ML VIAL IV PUSH (04:58)
[2023-04-10 06:39] VITALS: BP 127/59; PULSE 81; RESP 15; O2SAT 100
[2023-04-10] MEDS: METOCLOPRAMIDE HCL INJ 10 MG/2 ML VIAL IV PUSH (07:08)
[2023-04-10] MEDS: MORPHINE SULFATE (*CRX) 2 MG/ML INJ IV PUSH (07:08)
[2023-04-10] MEDS: diphenhydrAMINE HCl INJ 50 MG/ML VIAL 25 MG IV PUSH (07:08)
[2023-04-10 07:09] VITALS: BP 125/67; PULSE 88; RESP 22; O2SAT 97
== END 2023-04-10 07:24 | disposition home or self-care (01) ==
PROVIDERS: Emergency Provider Emergency Medicine; PCP Family Medicine
DX: R10.32 Left lower quadrant pain (principal); K63.89 Other specified diseases of intestine; F41.9 Anxiety disorder, unspecified; F32.A Depression, unspecified; K57.90 Diverticulosis of intestine, part unspecified, without perforation or abscess without bleeding; E28.2 Polycystic ovarian syndrome
CPT/HCPCS: 36415; 74177; 80053; 81003; 81025; 83690; 85025; 96374; 96375; 99284; A9270; J1200; J2270; J2405; J2765; Q9967

== ENCOUNTER 2023-07-10 17:56 | Emergency (ER) | payer OTHER, SELFPAY ==
--- NOTE | ~2023-07-10 | XR_ITS ---
EXAMINATION: XR chest 2V DATE: 07/10/2023 18:34 INDICATION: COVID presenting with cough TECHNIQUE: PA and lateral views of the chest were obtained. COMPARISON: Chest radiograph dated 09/17/2022 FINDINGS: The lungs are clear with no focal airspace opacities, pulmonary edema, pleural effusion or pneumothor ax. The cardiomediastinal silhouette is normal. Mild thoracic and upper lumbar spondylosis. IMPRESSION: 1. No acute cardiopulmonary disease. Reviewed, dictated and finalized at location A. TRONEURODIAGNOSTIC TECHNOLOGIST
[2023-07-10 18:08] VITALS: BP 127/89; PULSE 78; RESP 22; TEMP 37.6; O2SAT 100
[2023-07-10 18:10] VITALS: RESP 16; O2SAT 100
--- NOTE | 2023-07-10 18:12 | ED.URI ---
HPI - URI/Sore Throat General Chief Complaint: Upper Respiratory Infection Stated Complaint: COVID + 07/07/2023, cough,fever,SOB Time Seen by Provider: 07/10/23 18:12 Source: patient Mode of arrival: ambulatory Limitations: no limitations History of Present Illness HPI Narrative: 27-year-old female pr presents today stating she is on day 7 of COVID symptoms. Tested positive for COVID on day 4. Was starting to feel better the past 2 days but today is feeling fatigue, cough worse. Was supposed to return to work today but does not feel like she can. Patient requesting chest x-ray, concern for pneumonia. Afebrile. Taking Dimetapp for cough and congestion symptoms. Patient reports history of asthma but recently had pulmonary function tests that were normal. Patient states that she has old albuterol inhaler that is not that she has been using for cough. All systems reviewed and negative except as noted above. Related Data Home Medications Medication Instructions Recorded Confirmed budesonide-formoterol HFA 160 2 puff inhalation Q12H 04/14/20 09/17/22 mcg-4.5 mcg/actuation aerosol inhaler (Symbicort) albuterol sulfate 90 mcg/actuation 2 inh inhalation DIRECTED 09/23/21 09/17/22 aerosol inhaler norethindrone (contraceptive) 0.35 0.35 mg PO DAILY 09/23/21 09/17/22 mg tablet sertraline 100 mg tablet 200 mg PO DIRECTED 09/23/21 09/17/22 trazodone 50 mg tablet 100 mg PO DIRECTED 09/23/21 09/17/22 lamotrigine 100 mg tablet 100 mg PO DAILY 01/07/22 09/17/22 (Lamictal) famotidine 40 mg tablet 40 mg PO DAILY 09/17/22 09/17/22 pantoprazole 40 mg tablet,delayed 40 mg PO DAILY 09/17/22 09/17/22 release propranolol 60 mg capsule,24 60 mg PO DAILY 09/17/22 09/17/22 hr,extended release triamcinolone acetonide 55 mcg 1 spray intranasal DIRECTED 09/17/22 09/17/22 nasal spray aerosol Allergies Allergy/AdvReac Type Severity Reaction Status Date / Time Rabbit Allergy Severe Hives,RED Verified 09/17/22 08:52 FACE red (food color) Allergy Intermediate Hives / Verified 09/17/22 08:52 Red Face adhesive Allergy Rash Verified 09/17/22 08:52 nitrofurantoin Allergy Itching Verified 09/17/22 08:52 [From Macrobid] fluoxetine [From Prozac] AdvReac Unknown Verified 09/17/22 08:52 Guinea Pig Epithelium Allergy Intermediate Hives / Uncoded 09/17/22 08:52 Red Face Review of Systems Review of Systems: CONSTITUTIONAL: Denies fever, chills, or sweats. reports fatigue EYES: Denies visual changes, redness, or discharge. ENT: Denies rhinorrhea, congestion, sore throat, or otalgia. CARDIOVASCULAR: Denies chest pain, palpitations, or edema. RESPIRATORY: Reports cough . Denies dyspnea. GASTROINTESTINAL: Denies abdominal pain, nausea, vomiting, or diarrhea. GENITOURINARY: Denies dysuria or hematuria. SKIN: Denies rash or itching. MUSCULOSKELETAL: Denies back pain, joint pain, or myalgia. NEUROLOGIC: Denies headache, numbness, or weakness. PSYCHIATRIC: Denies anxiety or depression. All other systems reviewed are negative, except as documented in HPI. 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
== END 2023-07-10 19:12 | disposition home or self-care (01) ==
PROVIDERS: Emergency Provider Nurse Practitioner Family; PCP Family Medicine
DX: U07.1 COVID-19 (principal); E28.2 Polycystic ovarian syndrome; F41.9 Anxiety disorder, unspecified; F32.A Depression, unspecified
CPT/HCPCS: 71046; 99213; G0463

== ENCOUNTER 2023-09-01 22:10 | Emergency (ER) | payer OTHER, SELFPAY ==
--- NOTE | ~2023-09-01 | XR_ITS ---
Portable chest x-ray Comparison: 07/10/2023 Clinical History: Cough, fever Findings: Lungs are clear, without focal consolidation or pleural effusion. Cardiomediastinal silho uette is stable. Bones and soft tissues are unremarkable. Impression: Normal chest. Reviewed, dictated and finalized at location . Impression: Normal chest.
[2023-09-01 22:42] VITALS: BP 138/73; PULSE 109; RESP 18; TEMP 38.4; O2SAT 97
[2023-09-01 23:19] VITALS: BP 135/75; PULSE 99; RESP 16; TEMP 36.7; O2SAT 99
[2023-09-01 23:29] LABS: Influenza A QL RT-PCR Negative (Negative); Influenza B QL RT-PCR Negative (Negative); RSV RNA, RT-PCR Negative (Negative); SARS-CoV-2 RNA PCR Negative (Negative)
--- NOTE | 2023-09-02 00:03 | ED.FEVER ---
HPI - Fever General Chief Complaint: Fever Stated Complaint: Fever, nausea, dizzy, JOHN Time Seen by Provider: 09/01/23 23:40 History of Present Illness HPI Narrative: 27-year-old female presents to emergency department for viral syndrome symptoms that started today. Patient is reporting nausea, congestion, sore throat, productive cough, diffuse intermittent abdominal cramping, diarrhea, headache and fevers. States her T-max today was 103.5. States she has been taking Tylenol and ibuprofen some improvement. Denies dysuria or hematuria, focal abdominal pain. Patient's last dose of Tylenol was at 6-1/2 hours ago., last dose of ibuprofen was 4 hours ago. Patient states she was treated for strep pharyngitis 2 weeks ago with amoxicillin. Related Data Home Medications Medication Instructions Recorded Confirmed budesonide-formoterol HFA 160 2 puff inhalation Q12H 04/14/20 09/17/22 mcg-4.5 mcg/actuation aerosol inhaler (Symbicort) albuterol sulfate 90 mcg/actuation 2 inh inhalation DIRECTED 09/23/21 09/17/22 aerosol inhaler norethindrone (contraceptive) 0.35 0.35 mg PO DAILY 09/23/21 09/17/22 mg tablet sertraline 100 mg tablet 200 mg PO DIRECTED 09/23/21 09/17/22 trazodone 50 mg tablet 100 mg PO DIRECTED 09/23/21 09/17/22 lamotrigine 100 mg tablet 100 mg PO DAILY 01/07/22 09/17/22 (Lamictal) famotidine 40 mg tablet 40 mg PO DAILY 09/17/22 09/17/22 pantoprazole 40 mg tablet,delayed 40 mg PO DAILY 09/17/22 09/17/22 release propranolol 60 mg capsule,24 60 mg PO DAILY 09/17/22 09/17/22 hr,extended release triamcinolone acetonide 55 mcg 1 spray intranasal DIRECTED 09/17/22 09/17/22 nasal spray aerosol Allergies Allergy/AdvReac Type Severity Reaction Status Date / Time Rabbit Allergy Severe Hives,RED Verified 09/17/22 08:52 FACE red (food color) Allergy Intermediate Hives / Verified 09/17/22 08:52 Red Face adhesive Allergy Rash Verified 09/17/22 08:52 nitrofurantoin Allergy Itching Verified 09/17/22 08:52 [From Macrobid] fluoxetine [From Prozac] AdvReac Unknown Verified 09/17/22 08:52 Guinea Pig Epithelium Allergy Intermediate Hives / Uncoded 09/17/22 08:52 Red Face Review of Systems Review of Systems: CONSTITUTIONAL: See HPI. EYES: Denies visual changes, redness, or discharge. ENT: See HPI CARDIOVASCULAR: Denies chest pain, palpitations, or edema. RESPIRATORY: See HPI GASTROINTESTINAL: See HPI GENITOURINARY: Denies dysuria or hematuria. SKIN: Denies rash or itching. MUSCULOSKELETAL: Denies back pain, joint pain, or myalgia. NEUROLOGIC: Denies headache, numbness, or weakness. PSYCHIATRIC: Denies anxiety or depression. 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 HEAD: Normocephalic, atraumatic. EYES: PERRLA and EOMI. ENT: Nares clear, no rhinorrhea or epistaxis. Mucous membranes moist. Posterior pharynx with erythema and edematous tonsils bilaterally. Uvula is midline. No tonsillar exudates. No airway compromise
[2023-09-02] MEDS: SODIUM CHLORIDE 0.9% IV 1,000 ML 999 ML IV CONT (00:14)
[2023-09-02] MEDS: FAMOTIDINE 20 MG/2 ML VIAL IV PUSH (00:15)
[2023-09-02] MEDS: ONDANSETRON INJ 4 MG/2 ML VIAL IV PUSH ×2 (00:15→01:17)
--- NOTE | 2023-09-02 00:19 | ECG_ITS ---
Measurements Intervals [place] Rate: 91 P: 36 MO: 141 QRS: -9 QRSD: 94 T: 18 QT: 366 AVG RR: 653 QTc: 415 QTCB: 452 QTCF: 421 Interpretive Statements SINUS RHYTHM NORMAL ECG SEE SCANNED COPY FOR SIGNATURE MTDD
[2023-09-02 00:22] LABS: Basophils Absolute Auto 0.1 K/mm3 (0.0-0.1); Basophils Percent Auto 0.4 % (0.2-1.2); Eosinophils Absolute Auto 0.1 K/mm3 (0-0.3); Eosinophils Percent Auto 0.5 % (0-4.4); Hematocrit 39.6 % (37.0-47.0); Hemoglobin 12.9 g/dL (12.0-15.0); Immature Granulocyte Percent A 0.7 % (0-0.5); Lymphocytes Absolute Auto 2.01 K/mm3 (0.9-3.2); Lymphocytes Percent Auto 14.3 % (18.3-44.2); Mean Corpuscular HGB Conc 32.6 g/dl (32-36); Mean Platelet Volume 8.8 fl (7.4-10.4); Monocytes Absolute Auto 1.2 K/mm3 (0.1-0.6); Monocytes Percent Auto 8.7 % (2.6-8.5); Neutrophils Absolute Auto 10.6 K/mm3 (1.3-6.7); Neutrophils Percent Auto 75.4 % (45.5-73.1); Platelet Count Result 336 k/mm3 (150-375); Red Blood Count 4.77 M/mm3 (4.2-5.4)
[2023-09-02 00:29] LABS: Alanine Aminotransferase 21 U/L (6-35); Albumin Level 4.2 g/dL (3.5-5.1); Alkaline Phosphatase 90 U/L (38-126); Anion Gap 5 mmol/L (4-12); Aspartate Amino Transferase 28 U/L (14-36); Bilirubin,Total 0.7 mg/dL (0.2-1.3); Blood Urea Nitrogen 8 mg/dL (7-17); Calcium 9.1 mg/dL (8.4-10.2); Carbon Dioxide 25 mmol/L (22-30); Chloride 106 mmol/L (98-107); Estimated CRCL calculation 178 ml/min; Estimated Glomerular Filt Rate > 60; Glucose 103 mg/dL (65-110); Lipase 38 U/L (23-300); Potassium 3.8 mmol/L (3.4-5.0); Sodium 136 mmol/L (137-145)
[2023-09-02 00:41] LABS: Strep Group A RT-PCR DETECTED (Negative)
[2023-09-02 01:05] VITALS: BP 106/68; PULSE 93; RESP 16; O2SAT 100
[2023-09-02] MEDS: KETOROLAC 30 MG/ML VIAL (*BKC) IV PUSH (01:12)
[2023-09-02] MEDS: AMOXICILLIN/CLAVULANATE K 875-125 MG TAB 1 TABLET PO (01:28)
[2023-09-02] MEDS: CAPSAICIN 0.025% CREAM 60 GM TUBE 1 APPLIC TOPICAL (01:28)
[2023-09-02 04:27] LABS: Monoscreen Negative (Negative); Negative Monotest Control Negative (Negative); Positive Monotest Control Positive (Positive)
== END 2023-09-02 01:49 | disposition home or self-care (01) ==
PROVIDERS: Emergency Medicine; Emergency Provider Physician Assistant; PCP Family Medicine
DX: J02.0 Streptococcal pharyngitis (principal); Z20.822 Contact with and (suspected) exposure to COVID-19; E28.2 Polycystic ovarian syndrome; K58.9 Irritable bowel syndrome, unspecified; F41.9 Anxiety disorder, unspecified; F32.A Depression, unspecified
CPT/HCPCS: 36415; 71045; 80053; 83605; 83690; 85025; 86308; 87637; 87651; 93005; 96361; 96374; 96375; 96376; 99284; A9270; J1885; J2405; J7030

== ENCOUNTER 2024-04-11 14:32 | Emergency (ER) | payer OTHER, SELFPAY ==
--- NOTE | ~2024-04-11 | XR_ITS ---
EXAMINATION: XR chest 2V Exam Date/Time: 04/11/2024 15:43 HEAD SULFIDE OPERATOR HISTORY: cough, wheeze,sob,aches x 1 week Comparison: 09/02/2023. RESULT: Lines, tubes, and devices: None. Lungs and pleura: Clear. Cardiomediastinal silhouette: Stable. Other: No acute osseous or upper abdominal finding. IMPRESSION: No acute cardiopulmonary process. Reviewed, dictated and finalized at location K. SULFIDE OPERATOR
[2024-04-11 15:13] VITALS: BP 139/65; PULSE 92; RESP 24; O2SAT 100
[2024-04-11 15:27] LABS: Basophils Absolute Auto 0.1 K/mm3 (0.0-0.1); Basophils Percent Auto 0.6 % (0.2-1.2); Eosinophils Absolute Auto 0.5 K/mm3 (0-0.3); Eosinophils Percent Auto 4.5 % (0-4.4); Hematocrit 43.2 % (37.0-47.0); Hemoglobin 13.8 g/dL (12.0-15.0); Immature Granulocyte Absolute 0.06 K/mm3 (0.00-0.031); Immature Granulocyte Percent A 0.5 % (0-0.5); Lymphocytes Absolute Auto 2.65 K/mm3 (0.9-3.2); Lymphocytes Percent Auto 23.9 % (18.3-44.2); Mean Corpuscular HGB Conc 31.9 g/dl (32-36); Mean Corpuscular Hemoglobin 26.6 pg (26-34); Mean Corpuscular Volume 83.4 fl (80-100); Mean Platelet Volume 8.6 fl (7.4-10.4); Monocytes Absolute Auto 0.6 K/mm3 (0.1-0.6); Monocytes Percent Auto 5.5 % (2.6-8.5); Neutrophils Absolute Auto 7.2 K/mm3 (1.3-6.7); Platelet Count Result 396 k/mm3 (150-375); Red Blood Count 5.18 M/mm3 (4.2-5.4); Red Cell Distribution Width 13.6 % (11.5-14.5); White Blood Count 11.1 K/mm3 (4.5-10.0)
[2024-04-11 15:37] LABS: Alanine Aminotransferase 19 U/L (6-35); Albumin Level 4.1 g/dL (3.5-5.1); Alkaline Phosphatase 93 U/L (38-126); Anion Gap 8 mmol/L (4-12); Aspartate Amino Transferase 25 U/L (14-36); Bilirubin,Total 0.6 mg/dL (0.2-1.3); Blood Urea Nitrogen 12 mg/dL (7-17); Calcium 9.1 mg/dL (8.4-10.2); Carbon Dioxide 26 mmol/L (22-30); Chloride 105 mmol/L (98-107); Estimated CRCL calculation 150 ml/min; Estimated Glomerular Filt Rate > 60; Glucose 111 mg/dL (65-110); Sodium 139 mmol/L (137-145)
--- NOTE | 2024-04-11 16:15 | ED.SOB ---
HPI - SOB/Dyspnea General Chief Complaint: Shortness of Breath/Dyspnea Stated Complaint: SOB Time Seen by Provider: 04/11/24 16:09 Source: patient Mode of arrival: ambulatory Limitations: no limitations History of Present Illness HPI Narrative: This is a 28-year-old female with PMH of anxiety, depression, IBS, PCOS who presents to the ED for chief complaint of worsening cough and shortness of breath x1 week. Patient reports she was seen in urgent care previously was placed on azithromycin and steroids. States that the cough and shortness of breath and just been worsening since then. States that she gets dyspneic with lying flat, walking distances and with cold air. States she is not bringing much up with the cough. Endorses chills but no recorded fevers. Denies chest pain, abdominal pain, nausea, vomiting, back pain, leg swelling, palpitations, syncope, hemoptysis. Related Data Home Medications Medication Instructions Recorded Confirmed budesonide-formoterol HFA 160 2 puff inhalation Q12H 04/14/20 09/17/22 mcg-4.5 mcg/actuation aerosol inhaler (Symbicort) albuterol sulfate 90 mcg/actuation 2 inh inhalation DIRECTED 09/23/21 09/17/22 aerosol inhaler norethindrone (contraceptive) 0.35 0.35 mg PO DAILY 09/23/21 09/17/22 mg tablet sertraline 100 mg tablet 200 mg PO DIRECTED 09/23/21 09/17/22 trazodone 50 mg tablet 100 mg PO DIRECTED 09/23/21 09/17/22 lamotrigine 100 mg tablet 100 mg PO DAILY 01/07/22 09/17/22 (Lamictal) famotidine 40 mg tablet 40 mg PO DAILY 09/17/22 09/17/22 pantoprazole 40 mg tablet,delayed 40 mg PO DAILY 09/17/22 09/17/22 release propranolol 60 mg capsule,24 60 mg PO DAILY 09/17/22 09/17/22 hr,extended release triamcinolone acetonide 55 mcg 1 spray intranasal DIRECTED 09/17/22 09/17/22 nasal spray aerosol Allergies Allergy/AdvReac Type Severity Reaction Status Date / Time Rabbit Allergy Severe Hives,RED Verified 09/17/22 08:52 FACE red (food color) Allergy Intermediate Hives / Verified 09/17/22 08:52 Red Face adhesive Allergy Rash Verified 09/17/22 08:52 nitrofurantoin Allergy Itching Verified 09/17/22 08:52 [From Macrobid] fluoxetine [From Prozac] AdvReac Unknown Verified 09/17/22 08:52 Guinea Pig Epithelium Allergy Intermediate Hives / Uncoded 09/17/22 08:52 Red Face Review of Systems Review of Systems: All systems as dictated in [facility] Past Medical History Medical History Anxiety Depression Diverticulosis IBS (irritable bowel syndrome) PCOS (polycystic ovarian syndrome) Surgical History Surgical History H/O oral surgery Family History Family History Mother COPD (chronic obstructive pulmonary disease) Social History Social History Smoking status: Never smoker Alcohol intake: never Substance use: never Living arrangements: with family Occupation/Education: student 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 HEAD: Normocephalic, atraumatic. EYES: PERRLA and EOMI. ENT: Nares clear, no rhinorrhea or epistaxis. Mucous membranes moist. Oropharynx without tonsillar hypertrophy exudate or other lesions. NECK: Supple. No adenopathy or masses. CHEST: No respiratory distress. Bilateral expiratory wheezes heard. Saturating 100% on room air. Speaks in full sentences. HEART: Regular rate and rhythm. No murmur heard. Normal peripheral pulses. ABDOMEN: Soft, nontender, nondistended, normal active bowel sounds. MSK: Normal range of motion. No edema. SKIN: Warm, dry, no rash. NEURO: Alert and oriented x4. No focal deficits. PSYCH: Normal mood and affect. Course Vital Signs Vital signs: Vital Signs Pulse Rate 92 04/11/24 15:13 Respiratory Rate 24 H 04/11/24 15:13 Blood Pressure 139/65 04/11/24 15:13 Pulse Oximetry 100 04/11/24 15:13 Pulse Rate 80 04/11/24 16:24 Respiratory Rate 20 04/11/24 16:23 Blood Pressure 139/65 04/11/24 15:13 Pulse Oximetry 99 04/11/24 16:23 Oxygen Delivery Room Air 04/11/24 16:23 Fraction of Inspired Oxygen 21 04/11/24 16:23 MDM - SOB/Dyspnea MDM Narrative Medical decision making narrative: This is a 28 yo female who presents to the ED for chief complaint of shortness of breath and cough worsening over the past week. Vitals are normal. Saturating well on room air with no respiratory distress. Exam shows bilateral expiratory wheezes. Lab work is unremarkable aside from mildly elevated count of 11.1. Chest x-ray shows no acute findings. PERC rule negative for PE Patient was previously on steroid pack and Z-Daron with minimal relief. Do feel that her presentation today is consistent with bronchitis. She was given hour long breathing treatment and IM dexamethasone here due to her exam findings. Patient will be discharged in stable condition. Supportive measures discussed and return precautions given. Patient is understanding and agreeable with plan for discharge with PCP follow-up. Lab Data 04/11/24 15:22 04/11/24 15:22 Labs: Lab Results 04/11/24 Range/Units 15:22 WBC 11.1 H (4.5-10.0) K/mm3 RBC 5.18 (4.2-5.4) M/mm3 Hgb 13.8 (12.0-15.0) g/dL Hct 43.2 (37.0-47.0) % MCV 83.4 (80-100) fl MCH 26.6 (26-34) pg MCHC 31.9 L (32-36) g/dl RDW 13.6 (11.5-14.5) % Plt Count 396 H (150-375) k/mm3 MPV 8.6 (7.4-10.4) fl Immature Gran % (Auto) 0.5 (0-0.5) % Neut % (Auto) 65.0 (45.5-73.1) % Lymph % (Auto) 23.9 (18.3-44.2) % [place] % (Auto) 5.5 (2.6-8.5) % Eos % (Auto) 4.5 H (0-4.4) % Baso % (Auto) 0.6 (0.2-1.2) % Lymph # (Auto) 2.65 (0.9-3.2) K/mm3 [place] # (Auto) 0.6 (0.1-0.6) K/mm3 Eos # (Auto) 0.5 H (0-0.3) K/mm3 Baso # (Auto) 0.1 (0.0-0.1) K/mm3 Abs Immat Gran (auto) 0.06 H (0.00-0.031) K/mm3 Absolute Neuts (auto) 7.2 H (1.3-6.7) K/mm3 Absolute Nucleated RBC 0.000 (0.0-0.012) K/mm3 Nucleated RBC % 0.0 (0.0-0.2) % Sodium 139 (137-145) mmol/L Potassium 4.0 (3.4-5.0) mmol/L Chloride 105 (98-107) mmol/L Carbon Dioxide 26 (22-30) mmol/L Anion Gap 8 (4-12) mmol/L BUN 12 (7-17) mg/dL Creatinine 0.70 (0.7-1.0) mg/dL Estim Creat Clear Calc 150 ml/min Estimated GFR > 60 (59 - ) Glucose 111 H (65-110) mg/dL Calcium 9.1 (8.4-10.2) mg/dL Total Bilirubin 0.6 (0.2-1.3) mg/dL AST 25 (14-36) U/L ALT 19 (6-35) U/L Alkaline Phosphatase 93 (38-126) U/L Total Protein 8.0 (6.3-8.2) g/dL Albumin 4.1 (3.5-5.1) g/dL Discharge Plan Discharge Clinical Impression: Acute bronchitis with asthma Patient Disposition: Home, Self-Care Condition: Stable Instructions: Antibiotic Form, Acute Bronchitis (ED) Additional Instructions: Your exam and imaging today are reassuring overall. Please take guaifenesin as needed for cough. This is most likely bronchitis and will self resolve over the next few weeks. Please schedule follow-up with PCP on this issue. If you have any new or worsening symptoms please return to the ER for further evaluation. Prescriptions: New guaifenesin 600 mg tablet extended release 12hr 600 mg PO Q12H PRN (Reason: cough) Qty: 30 0RF No Action trazodone 50 mg tablet 100 mg PO DIRECTED sertraline 100 mg tablet 200 mg PO DIRECTED norethindrone (contraceptive) 0.35 mg tablet 0.35 mg PO DAILY albuterol sulfate 90 mcg/actuation HFA aerosol inhaler 2 inh INHALATION DIRECTED lamotrigine [Lamictal] 100 mg Tablet 100 mg PO DAILY prednisone 20 mg tablet 40 mg PO DAILY 5 Days Qty: 10 0RF budesonide-formoterol [Symbicort] 160-4.5 mcg/actuation Hfa Aerosol Inhaler 2 puff INHALATION Q12H famotidine 40 mg tablet 40 mg PO DAILY propranolol 60 mg capsule,extended release 24 hr 60 mg PO DAILY pantoprazole 40 mg tablet,delayed release (DR/EC) 40 mg PO DAILY triamcinolone acetonide 55 mcg aerosol,spray 1 spray INTRANASAL DIRECTED prednisone 20 mg tablet 40 mg PO DAILY 5 Days Qty: 10 0RF amoxicillin-pot clavulanate 875-125 mg tablet 1 tablet PO Q12H 10 Days Qty: 20 0RF fluconazole [Diflucan] 150 mg tablet 150 mg PO Q72H Qty: 3 0RF Rx Instructions: as a single dose amoxicillin-pot clavulanate 875-125 mg tablet 1 tablet PO Q12H 10 Days Qty: 20 0RF ondansetron 4 mg tablet,disintegrating 4 mg PO Q8H Qty: 14 0RF fluconazole 150 mg tablet 150 mg PO ONCE Qty: 2 0RF Rx Instructions: Repeat dose in 72 hours if symptoms persist dicyclomine 20 mg tablet 20 mg PO QID PRN (Reason: abdominal discomfort) Qty: 20 0RF ondansetron 4 mg tablet,disintegrating 4 mg PO Q8H PRN (Reason: nausea and vomiting) Qty: 10 0RF oxycodone-acetaminophen [Percocet] 5-325 mg tablet 1 tablet PO Q6H PRN (Reason: pain) Qty: 20 0RF Follow-up/Referrals: Otf,DUDLEY Melo [Primary Care Provider] - Time of Disposition: 17:03
[2024-04-11] MEDS: dexAMETHasone SOD PHOS INJ 10 MG/ML 1 ML VIAL IM (16:20)
[2024-04-11 16:23] VITALS: PULSE 82; RESP 20; O2SAT 99
[2024-04-11] MEDS: ALBUTEROL SULFATE NEB 2.5 MG/3 ML INH 10 MG INHALATION (16:23)
[2024-04-11] MEDS: IPRATROPIUM BR 0.02% INH SOLN 0.5 MG/2.5 ML VIAL 1 MG INHALATION (16:23)
[2024-04-11 16:24] VITALS: PULSE 80
[2024-04-11 17:22] VITALS: PULSE 88; RESP 20
[2024-04-11 17:35] VITALS: BP 118/75; PULSE 85; RESP 19; O2SAT 97
== END 2024-04-11 17:36 | disposition home or self-care (01) ==
PROVIDERS: Emergency Medicine; Emergency Provider Physician Assistant; PCP Family Medicine
DX: J20.9 Acute bronchitis, unspecified (principal); J45.909 Unspecified asthma, uncomplicated; E28.2 Polycystic ovarian syndrome; K58.9 Irritable bowel syndrome, unspecified; F41.9 Anxiety disorder, unspecified; F32.A Depression, unspecified; Z79.899 Other long term (current) drug therapy
CPT/HCPCS: 36415; 71046; 80053; 85025; 94640; 96372; 99284; J1100

== ENCOUNTER 2024-05-30 | Emergency (ER) | payer OTHER, SELFPAY ==
--- NOTE | 2024-05-30 00:06 | ECG_ITS ---
Test Date: 2024-05-30 00:10:00 Measurements Intervals [place] Rate: 80 P: 14 [place]: 157 QRS: -5 QRSD: 98 T: 18 QT: 406 QTc: 471 Interpretive Statements SINUS RHYTHM WITH SINUS ARRHYTHMIA No previous ECG available for comparison Electronically Signed On 06-02-2024 17:52:30 NETWORK SECURITY ADMINISTRATOR by Bishnu Ayers M.D.
[2024-05-30 00:15] VITALS: BP 137/87; PULSE 84; RESP 16; TEMP 36.6; O2SAT 100
--- OUTSIDE RECORDS SUMMARY | 2024-06-06 00:20 | XMS_ITS | Encounter Summary ---
Author Organization [facility] Address [address] [place] [address] Care Team Providers Care Superintendent Meter Tests Name Role Phone David Santos MD Primary Care Provider Unavail able Reason for Visit * Reason Onset Date Comments COVID-19 IMMUNIZATION/INJECTION 06/17/2020 Encounter Details Date Type Department Care Team (Latest Contact Info) Description 06/17/2020 8:30 AM CLEAT FEEDER Clinical Support [facility] COVID Vaccination [address] [place] [address] Need for vaccination Social History Tobacco Use Types Packs/Day Years Used Date Smoking Tobacco: Never Smokeless Tobacco: Never Alcohol Use Standard Drinks/Week Comments Yes 0 (1 standard drink = 0.6 oz pur e alcohol) occ Sex and Gender Information Value Date Recorded Sex Assigned at Female 06/17/2020 8:40 AM CLEAT FEEDER Gender Identity Female 06/17/2020 8:40 AM CLEAT FEEDER Sexual Orientation Choose not to disclose 2020 8:40 AM CLEAT FEEDER documented as of this encounter Patient Instructions * Patient Instructions* Shefali Gilbert RN - 06/17/2020 8:35 AM CLEAT FEEDER Images from the original note were not included. Vaccine recipients are encouraged to enroll in the CDC V-SAFE program for post vaccination monitoring. Sign up with your smartphone's browser at [place]uz[place].cdc.gov or Aim your smartphone's camera at this code. T FEEDER documented in this encounter Progress Notes * Shefali Gilbert RN - 06/17/2020 8:35 AM CST COVID screening checklist was reviewed with the patient. The Information sheet was given prior to administration. Injection site aseptically cleansed and injection given per Immunization(s) protocol.See Imm/Injections activity for details. T FEEDER documented in this encounter Plan of Treatment Not on file documented as of this encounter Visit Diagnoses Diagnosis Need for vaccination- Primary Need for prophylactic vaccination and inoculation against unspecified single disease documented in this encounter Care Teams Superintendent Meter Tests Relationship Specialty Start Date End Date David Santos MD PCP - General 08/22/19 09/24/21 documented as of this encounter
--- OUTSIDE RECORDS SUMMARY | 2024-06-06 00:20 | XMS_ITS | Encounter Summary ---
Author Organization [facility] Address [address] [place] [address] Care Team Providers Care Ed Special Education Teacher Name Role Phone Unavailable Primary Care Provider Unavailabl e Reason for Visit * Reason Comments Respiratory Fit Exam Encounter Details Date Type Department Care Team (Latest Contact Info) Description 01/21/2018 3:00 PM CDT Clinical Support [address] [address] Device fitting or adjustment Social History Tobacco Use Types Packs/Day Years Used Date Smoking Tobacco: Never Assessed Sex and Gender Information Value Date Recorded Sex Assigned at Female 06/17/2020 8:40 AM HOME SCHOOL TEACHER Gender Identity Female 06/17/2020 8:40 AM HOME SCHOOL TEACHER Sexual Orientation Choose not to disclose 2020 8:40 AM HOME SCHOOL TEACHER documented as of this encounter Plan of Treatment Not on file documented as of this encounter Procedures Procedure Name Priority Date/Time Associated Diagnosis Comments MA RESPIRATORY FIT TEST Routine 01/21/2018 3:11 PM CDT Device fitting or adjustment documented in this encounter Results * MA RESPIRATORY FIT TEST (01/21/2018 3:11 PM CDT) 01/21/2018 3:11 PM CDT Wills Bharati Shah RN - 01/21/2018 3:11 PM CDT Patient fit with N95 particulate respirator size regular using the qualitative sweet. Patient demonstrated proper donning and doffing of the mask. Patient given a copy of the certificate of exam. Patient understands to bring certificate to their department. No further questions at this time. Hawa David MD MA - PROFESSIONAL SE RVICES documented in this encounter Visit Diagnoses Diagnosis Device fitting or adjustment- Primary Fitting and adjustment of unspecified device documented in this encounter
--- OUTSIDE RECORDS SUMMARY | 2024-06-06 00:20 | XMS_ITS | Encounter Summary ---
Author Organization [facility] Address [address] [place] [address] Care Team Providers Care Electric Gas Appliances Demonstrator Name Role Phone David Santos MD Primary Care Provider Unavail able Reason for Visit * Reason Comments Lower Extremity Problem pt stated last w [place] she fell down wooden stairs onto concrete, landed on left foot, left ankle, left knee, left hip. pt went to OSH received xrays to left ankle and left hip, dx sprain. increased pain to area. Encounter Details Date Type Department Care Team (Late st Contact Info) Description 09/26/2020 10:13 PM CDT - 09/27/2020 6:17 AM T Emergency [facility] EMERGENCY DEPARTMENT [address] [place] [address] Fall, initial encounter Discharge Disposition: Left Against Medical Advice/Discontinued Care Social History Tobacco Use Types Packs/Day Years Used Date Smoking Tobacco: Never Smokeless Tobacco: Never Alcohol Use Standard Drinks/Week Comments Yes 0 (1 standard drink = 0.6 oz pur e alcohol) occ Sex and Gender Information Value Date Recorded Sex Assigned at Female 06/17/2020 8:40 AM TUGBOAT ENGINEER Gender Identity Female 06/17/2020 8:40 AM TUGBOAT ENGINEER Sexual Orientation Choose not to disclose 2020 8:40 AM TUGBOAT ENGINEER documented as of this encounter Last Filed Vital Signs Vital Sign Reading Time Taken Comments Blood Pressure 145/79 09/26/2020 9:06 PM CDT Pulse 151 09/26/2020 9:06 PM CDT Temperature 37.4 ??C (99.4 ??F) 09/26/2020 9:06 PM CD T Respiratory Rate 20 09/26/2020 9:06 PM CDT Oxygen Saturation 100% 09/26/2020 9:06 PM CDT Inhaled Oxygen Concentration - - Weight 127 kg (280 lb) 09/26/2020 2:21 PM CDT Height 162.6 cm (5' 4 ) 09/26/2020 2:21 PM CDT Body Mass Index 48.06 09/26/2020 2:21 PM CDT documented in this encounter Medications at Time of Discharge Medication Sig Dispensed Refills Start Date End Date albuterol HFA (PROVENTIL;VENTOLIN;PROA IR) 108 (90 Base) MCG/ACT inhaler Inhale 2 puffs by mouth every 4 hours as needed for Wheezing 1 Inhaler 08/06/2019 busPIRone (BUSPAR) 10 MG tablet Take 10 mg by mouth 2 times daily famotidine (PEPCID) 10 MG tablet Take 10 mg by mouth once daily montelukast (SINGULAIR) 10 MG tablet Take 10 mg by mouth at bedtime OtherIndications: control Reasons: control documented as of this encounter ED Notes * Fly Rosas RN - 09/27/2020 6:15 AM CDT Called 3x no answer * Fly Rosas RN - 09/27/2020 6:00 AM CDT Call x2 no answer * Fly Rosas RN - 09/27/2020 5:30 AM CDT called x1 no answer * Victoria Gomez - 09/26/2020 7:57 PM CDT Pt in waiting area A&O4 in wheel chair * Victoria Gomez - 09/26/2020 7:57 PM CDT Pt given cup for urine sample * Gale Parker APRN-CNP - 09/26/2020 7:17 PM CDT Medical Screening Exam 09/26/2020 7:17 PM I have reviewed the patient's chief complaint, onset of chief complaints, vital signs, level of distress, allergies, current medications, immunization status, as well as completed a focused localizedexam. I have completed a focused limited exam, further evaluation will be necessary in the emergency department to determine if an emergency medical condition exists. This plan has been articulated to the patient/family. Vitals: 09/26/20 1421 09/26/20 1746 BP: 135/71 134/64 Pulse: (!) 123 99 Resp: 20 20 Temp: 98 ??F (36.7 ??C) 97.5 ??F (36.4 ??C) SpO2: 100% 100% Weight: 127 kg (280 lb) Height: 1.626 m (5' 4 ) Patient Evaluated: Pt is a heavy set young lady who presents to the emergency department for left leg pain. Pt reportsshe fell 4-5 days ago from wooden stairs onto concrete landed on left side. Pt complains of left hip, tib/fib and ankle pain. Pt reports she was seen at [facility]. She was given a foot x-ray and told it was sprained. She has jeff wrap and crutches provided from the OSH. Pt reports she has been taking tylenol and ibuprofen for pain control with no relief. No numbness or tingling. No head injury. No LOC. No neck or back pain. No loss of bowel or bladder. LCTA. HRRR. Unable to appreciative any true swelling to extremity. Limited ROM due to pain. * Abeba Vieyra - 09/26/2020 5:44 PM CDT Pt stated her pain has gotten worse pt stated her pain level was a 9/10 * Danita Somers RN - 09/26/2020 4:10 PM CDT Pt. Sitting in waiting room, no new complaints documented in this encounter Plan of Treatment Not on file documented as of this encounter Visit Diagnoses Diagnosis Fall, initial encounter Left leg pain Pain in limb Fall (on) (from) unspecified stairs and steps, initial encounter documented in this encounter Active and Recently Administered Medications Times are shown in CDT. Scheduled Medication Order 09/25/2020 09/26/2020 09/27/2020 ibuprofen (Motrin) tablet 600 mg 600 mg, Oral, NOW, 1 dose, On Sat09/26/20 at 1945, Maximum allowable amount = 3200 mg / 24 hours. 1944 (Due) lidocaine (Lidoderm) 5 % patch 1 patch 1 patch, Administer over 12 Hours, NOW, 1 dose, On Sat09/26/20 at 1945, Apply to Left hip and remove patch after a max of 12 hours of application within a 24 hour period. 1944 (Due) documented in this encounter Care Teams Electric Gas Appliances Demonstrator Relationship Specialty Start Date End Date David Santos MD PCP - General 08/22/19 09/24/21 documented as of this encounter
--- OUTSIDE RECORDS SUMMARY | 2024-06-06 00:20 | XMS_ITS | Encounter Summary ---
Author Organization [facility] Address [address] [place] [place] [address] Care Team Providers Care House Nurse Name Role Phone Unavailable Primary Care Provider Unavailabl e Reason for Visit * Reason Comments Shortness of Breath Pt reports SOB and n onproductive cough, chest pain for the past few weeks. States that she has been sick for the past few weeks and is taking prednisone and Zithromax. Hx of anxiety. Encounter Details Date Type Department Care Team (Late st Contact Info) Description 08/20/2019 5:55 PM CDT - 08/20/2019 11:22 PM CDT Emergency [facility] EMERGENCY DEPARTMENT [address] [place] [id number] João Rodriguez MD [address] [place] [address] [place] [address] Tachycardia; SOB (shortness of breath); Cough Discharge Disposition: Home or Self Care Social History Tobacco Use Types Packs/Day Years Used Date Smoking Tobacco: Never Smokeless Tobacco: Never Alcohol Use Standard Drinks/Week Comments Yes 0 (1 standard drink = 0.6 oz pur e alcohol) occ Sex and Gender Information Value Date Recorded Sex Assigned at Female 06/17/2020 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 Gender Identity Female 06/17/2020 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 Sexual Orientation Choose not to disclose 2020 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 documented as of this encounter Last Filed Vital Signs Vital Sign Reading Time Taken Comments Blood Pressure 152/94 08/20/2019 10:55 PM CDT Pulse 86 08/20/2019 10:55 PM CDT Temperature 37.1 ??C (98.7 ??F) 08/20/2019 10:55 PM C DT Respiratory Rate 20 08/20/2019 10:55 PM CDT Oxygen Saturation 100% 08/20/2019 10:55 PM CDT Inhaled Oxygen Concentration - - Weight 122.5 kg (270 lb) 08/20/2019 5:39 PM CDT Height 162.6 cm (5' 4 ) 08/20/2019 5:39 PM CDT Body Mass Index 46.35 08/20/2019 5:39 PM CDT documented in this encounter Discharge Instructions * Attachments The following attachments cannot be sent through Care Everywhere. * Acute Cough (AfterCare(R) Instructions(ER/ED)) (Malawian) * Shortness of Breath (AfterCare(R) Instructions(ER/ED)) (Malawian) documented in this encounter Medications at Time of Discharge Medication Sig Dispensed Refills Start Date End Date albuterol HFA (PROVENTIL;VENTOLIN;PROA IR) 108 (90 Base) MCG/ACT inhaler Inhale 2 puffs by mouth every 4 hours as needed for Wheezing 1 Inhaler 08/06/2019 busPIRone (BUSPAR) 10 MG tablet Take 10 mg by mouth 2 times daily OtherIndications: control Reasons: control documented as of this encounter ED Notes * Fiordaliza Raymond RN - 08/20/2019 11:22 PM CDT Pt provided d/c and follow-up instructions. IV d/c x2 with catheter intact per protocol. Pt verbalizes understanding. Ambulated outside with a steady gait. * João Rodriguez MD - 08/20/2019 10:03 PM CDT Medical Screening Exam 08/20/2019 10:03 PM I have reviewed the patient's chief complaint, onset of chief complaints, vital signs, level of distress, allergies, current medications, immunization status, as well as completed a focused localizedexam. I have completed a focused limited exam, further evaluation will be necessary in the emergency department to determine if an emergency medical condition exists. This plan has been articulated to the patient/family. Vitals: 08/20/19 1739 08/20/19 1944 08/20/19 2128 BP: 152/90 148/82 149/81 Pulse: (!) 120 76 82 Resp: 22 24 16 Temp: 98.3 ??F (36.8 ??C) 98.4 ??F (36.9 ??C) 98.5 ??F (36.9 ??C) SpO2: 98% 100% 100% Weight: 122.5 kg (270 lb) Height: 1.626 m (5' 4 ) HPI Dx with flu 3wks ago and took tamiflu; now w/ worsening cough & SOB. Also with chest pressure in mid chest when coughing. +SOB + GALEANO +chills, no fever No ill contacts Denies F/C; JOHN, lightheadedness, dizziness; CP; SOB; abdominal pain. All other ROS were reviewed and were negative, except as noted. PMH: anxiety, depression, PCOS PE: NAD NCAT PERR nl ROM neck, Lungs clear but coarse bilat RRR MAEW nl speech/nl mood Dx: viral URI, PNA, COVID Plan - labs, CXR, inhaler ED course: (All Labs/Imaging/ECG, other diagnostics independently interpreted by me.) WBC 16 Lactic 3.1 to 1.2 CXR neg Flu neg Procal neg Trops neg x 2 Will d/c home. Tolerating po Given inhaler. Clinical Impression: 1. Tachycardia 2. SOB (shortness of breath) 3. Cough 4. Other chest pain Dispo: Discharge * Fiordaliza Raymond RN - 08/20/2019 9:38 PM CDT Pt provided oral fluids. Reports that she is feeling better. * Brinda Benjamin RN - 08/20/2019 6:14 PM CDT Unable to obtain EKG at this time r/t pt being in tent outside, EKG unavailable at this time. * Gale Parker APRN-CNP - 08/20/2019 5:39 PM CDT Medical Screening Exam 08/20/2019 5:39 PM I have reviewed the patient's chief complaint, onset of chief complaints, vital signs, level of distress, allergies, current medications, immunization status, as well as completed a focused localizedexam. I have completed a focused limited exam, further evaluation will be necessary in the emergency department to determine if an emergency medical condition exists. This plan has been articulated to the patient/family. Patient Vitals for the past 6 hrs: Temp Pulse Resp BP 08/20/19 1739 98.3 ??F (36.8 ??C) (!) 120 22 152/90 Patient Evaluated: Arrives to the ER for chest pain, sob. Pt reports of productive cough x 2 weeks. Pt reports was treated for bronchitis with azithromycin and prednisone but is not experiencing any relief. Pt has coarse breath sounds on the right upper and mid area, clear on the left. Tachycardic and Tachpenic Pt triggered Sepsis. Code sepsis initiated. * Brinda Benjamin RN - 08/20/2019 5:34 PM CDT Pt reports SOB and nonproductive cough, chest pain for the past few weeks. States that she has beensick for the past few weeks and is taking prednisone and Zithromax. Hx of anxiety. documented in this encounter Plan of Treatment Not on file documented as of this encounter Procedures Procedure Name Priority Date/Time Associated Diagnosis Comments CARDIAC EKG ORDER 08/21/2019 7:0 0 AM CDT XR CHEST 1VW PORTABLE STAT 08/20/2019 10:34 PM CDT Tachycardia SOB (shortness of breath) EKG 12-LEAD STAT 08/20/2019 8:52 PM CDT Tachycardia TROPONIN I Timed 08/20/2019 8:17 PM CDT LACTIC ACID BLOOD Timed 08/20/2019 8:1 7 PM CDT SARS-COV-2 (COVID-19) IN HOUSE STAT 08/20/2019 6:01 PM CDT RESPIRATORY PATHOGEN PANEL BY PCR STAT 08/20/2019 6:01 PM CDT INFLUENZA A+B PCR STAT 08/20/2019 6:0 1 PM CDT PT-INR [facility] STAT 08/20/2019 6:00 PM CDT PROCALCITONIN LEVEL STAT 08/20/2019 6 :00 PM CDT TROPONIN I STAT 08/20/2019 6:00 PM CDT CBC W AUTO DIFFERENTIAL STAT 08/20/2019 6:00 PM CDT COMPREHENSIVE METABOLIC PANEL STAT 08/20/2019 6:00 PM CDT LACTIC ACID BLOOD STAT 08/20/2019 6:0 0 PM CDT CULTURE BLOOD STAT 08/20/2019 5:47 PM CDT CULTURE BLOOD STAT 08/20/2019 5:46 PM CDT HCG URINE QUAL POCT NOTIFICATION STAT 08/20/2019 5:42 PM CDT documented in this encounter Results * CARDIAC EKG ORDER (08/21/2019 7:00 AM CDT) Narrative 08/21/2019 7:00 AM CDT Ordered by an unspecified provider. Scanned Document CARDIAC SERVICES ORD ERABLES * XR CHEST 1VW PORTABLE (08/20/2019 10:34 PM CDT) Anatomical Region Laterality Modality Chest Radiographic Sapna ging 08/20/2019 10:3 1 PM CDT Impressions 08/21/2019 9:52 AM CDT FINDINGS/IMPRESSION: There is no focal consolidation, pleural effusion, or pneumothorax. The cardiomediastinal silhouette is normal. The visible bony thorax is intact. Dictated by Garrett Burch MD (residential appliance repair technician). Dr. AURORA Castelan M.D. have personally reviewed and interpreted this examination/study. This report was electronically signed by AURORA VASQUEZ M.D. ??on 08/21/2019 9:52 AM . Narrative 08/21/2019 9:52 AM CDT EXAMINATION: XR CHEST 1VW PORTABLE HISTORY: R00.0: Tachycardia R06.02: SOB (shortness of breath) COMPARISON: No prior study is available for comparison at the time of this dictation. Procedure Note Aurora Vasquez MD - 08/21/2019 EXAMINATION: XR CHEST 1VW PORTABLE HISTORY: R00.0: Tachycardia R06.02: SOB (shortness of breath) COMPARISON: No prior study is available for comparison at the time ofthis dictation. FINDINGS/IMPRESSION: There is no focal consolidation, pleural effusion, or pneumothorax. The cardiomediastinal silhouette is normal. The visible bony thorax isintact. Dictated by Garrett Burch MD (residential appliance repair technician). Dr. AURORA Castelan M.D. have personally reviewed and interpreted this examination/study. This report was electronically signed by AURORA VASQUEZ M.D. on 08/21/2019 9:52 AM . Gale Keith [facility] DIAGNOSTIC IMAGING ORDERABLES * EKG 12-LEAD (08/20/2019 8:52 PM CDT) Ventricular Rate 80 BPM [facility] MUSE Atrial Rate 80 BPM [facility] MUSE P-R Interval 134 ms [facility] MUSE QRS Duration ms 84 ms [facility] MUSE Q-T Interval ms 372 ms [facility] MUSE QTC Calculation (Bezet) 429 ms [facility] MUSE Calculated P Edison 31 degrees SL MUSE Calculated R Edison 7 degrees [facility] MUSE Calculated T Edison 23 degrees [facility] MUSE Interpretation EKG NORMAL SINUS RHYTHM CANNOT RULE OUT ANTERIOR INFARCT , AGE UNDETERMINED ABNORMAL ECG NO PREVIOUS ECGS AVAILABLE Confirmed by Demond Herman ([id number]) on 08/22/2019 9:19:24 AM [facility] 08/20/2019 8:52 PM CDT 08/22/2019 9:19 AM CDT João Rodriguez MD ECG ORDERABLES Performing Organization Address City/[facility] Co de Phone Number [facility] * TROPONIN I (08/20/2019 8:17 PM CDT) Troponin I <0.010 <0.032 ng/mL 08/20/2019 8:42 PM CDT [facility] Blood BLOOD SPECIMEN / Unknown Venipuncture / Unknown 08/20/2019 8:17 PM CDT 08/20/2019 8:17 PM CDT João Rodriguez MD LAB - CHEMISTRY KAREN HIGHTOWER Performing Organization Address [facility] Co de Phone Number [address] [phone] * LACTIC ACID BLOOD (08/20/2019 8:17 PM CDT) Lactic Acid-Stat 1.2 0.5 - 2.0 mmol/L 08/20/2019 8:30 PM CDT [facility] Blood BLOOD SPECIMEN / Unknown Venipuncture / Unknown 08/20/2019 8:17 PM CDT 08/20/2019 8:17 PM CDT João Rodriguez MD LAB - CHEMISTRY KAREN HIGHTOWER Performing Organization Address City/[facility]/ZIP Co de Phone Number [place] [address] [place] [address], [facility] [phone] * SARS-COV-2 (COVID-19) IN HOUSE (08/20/2019 6:01 PM CDT) COVID-19 PCR Not detected Not detected, Invalid 08/21/2019 9:46 PM CDT [facility] Microbiology SPECIMEN FROM NASOPHARYNGEAL STRUCTURE / Unknown Collection / Unknown 08/20/2019 6:01 PM CDT 08/20/2019 6:08 PM CDT Narrative [facility] - 08/21/2019 9:46 PM CDT This Real Time RT-PCR assay was developed and its performance characteristics determined by [facility]. This test has been authorized by the Food and Drug administration (FDA)under an Emergency Use Authorization (EUA). This test has been validated in accordance with the FDA's guidance document Policy for Diagnostic Testing in Laboratories Certified to perform High Complexity Testing under CLIA prior to Emergency Use Authorization for Coronavirus Disease-2019 during the Public Health Emergency issued on July 25, 2019. FDA independent review of this validation is pending. This test is only authorized for the duration of time the declaration that circumstances exist justifying the authorization of emergency use of in vitro diagnostic tests for detection of SARS-CoV-2 virus and/or diagnosis of COVID-19 infection under section 564(b)(1) of the Act, 21 U.S.C 360bbb-3 (b)(1), unless the authorization is terminated or revoked sooner. Gale Parker [facility] LAB - MICROBIOLOGY ORDERABLES [facility] [address] [place] [address], [facility] [phone] * RESPIRATORY PATHOGEN PANEL BY PCR (08/20/2019 6:01 PM CDT) Adenovirus PCR Not detected Not detected, Invalid, Indeterminate 08/21/2019 2:52 AM CDT [facility] Coronavirus PCR Not detected Not detected, Invalid, Indeterminate 08/21/2019 2:52 AM CDT [facility] Human Metapneumovirus PCR Not detected Not detected, Invalid, Indeterminate 08/21/2019 2:52 AM CDT [facility] Human Rhinovirus/Entero virus PCR Not detected Not detected, Invalid, Indeterminate 08/21/2019 2:52 AM CDT [facility] Influenza A PCR Not detected Not detected, Equivocal, Invalid, Indeterminate 08/21/2019 2:52 AM CDT [facility] Influenza B PCR Not detected Not detected, Invalid, Indeterminate 08/21/2019 2:52 AM CDT [facility] Parainfluenza Virus 1 PCR Not detected Not detected, Invalid, Indeterminate 08/21/2019 2:52 AM CDT [facility] Parainfluenza Virus 2 PCR Not detected Not detected, Invalid, Indeterminate 08/21/2019 2:52 AM CDT [facility] Parainfluenza Virus 3 PCR Not detected Not detected, Invalid, Indeterminate 08/21/2019 2:52 AM CDT [facility] Parainfluenza Virus 4 PCR Not detected Not detected, Invalid, Indeterminate 08/21/2019 2:52 AM CDT [facility] Respiratory Syncytial Virus PCR Not detected Not detected, Invalid, Indeterminate 08/21/2019 2:52 AM T [facility] Bordetella pertussis PCR Not detected Not detected, Invalid 08/21/2019 2:52 AM T [facility] Chlamydia pneumoniae PCR Not detected Not detected, Invalid, Indeterminate 08/21/2019 2:52 AM T [facility] Mycoplasma pneumoniae PCR Not detected Not detected, Invalid, Indeterminate 08/21/2019 2:52 AM T [facility] Microbiology SPECIMEN FROM NASOPHARYNGEAL STRUCTURE / Unknown Collection / Unknown 08/20/2019 6:01 PM CDT 08/20/2019 6:08 PM CDT Narrative [facility] - 08/21/2019 2:52 AM CDT This test is able to detect the following human coronaviruses: HKU1, NL63, 229E, and OC43. It will NOT detect 2019 Novel Coronavirus (2019-nCoV). If 2019-nCoV is suspected contact Infection Prevention for isolation and testing guidance. Gale Parker [facility] LAB - MICROBIOLOGY ORDERABLES [facility] [address] [place] [address], [facility] [phone] * INFLUENZA A+B PCR (08/20/2019 6:01 PM CDT) Pathologist [facility] Influenza A Rapid NICK Negative Negative 08/20/2019 6:37 PM CDT [facility] Influenza B NICK Rapid Negative Negative 08/20/2019 6:37 PM CDT [facility] Microbiology SPECIMEN FROM NASOPHARYNGEAL STRUCTURE / Unknown Collection / Unknown 08/20/2019 6:01 PM CDT 08/20/2019 6:08 PM CDT Narrative [facility] - 08/20/2019 6:37 PM CDT Assay performed by Nucleic Acid Amplification. Results do not exclude the possibility of a mixed viral infection. NOTE: ??Detecting and identifying specific viral nucleic acids from individuals exhibiting signs and symptoms of respiratory infection aids in the diagnosis of respiratory infection, if used in conjunction with other clinical and laboratory findings. The results of this test should not be used as the sole basis for diagnosis, treatment, or patient management decisions. Gale Parker [facility] - MICROBIOLOGY ORDERABLES [address] [address], [facility] [phone] * PROCALCITONIN LEVEL (08/20/2019 6:00 PM CDT) [facility] PROCALCITONIN <0.02 <=0.10 ng/mL 08/20/2019 6:57 PM CDT [facility] Blood BLOOD SPECIMEN / Unknown Venipuncture / Unknown 08/20/2019 6:00 PM CDT 08/20/2019 6:17 PM CDT Narrative [facility] - 08/20/2019 6:57 PM CDT The change in procalcitonin (PCT) concentration over time provides support in decision making on antibiotic discontinuation for suspected or confirmed septic patients. Follow-up samples should be tested once every 1-2 days based upon physician discretion taking into account the patient? s evolution and progress. Consider discontinuation of ??antibiotic therapy ??if the PCT current ??is <= 0.5 ng/mL or if the delta PCT is > 80%. ??Duration of antibiotics should not be determined solely on PCT; established guidelines for the indication should be followed. ? PCT peak: ??Highest observed PCT concentration ? PCT current: Most recent PCT concentration ? Calculate delta PCT using the following equation: ?Delta PCT ??= ?? PCT Peak ? PCT current ??X 100% ? PCT Peak The Change in Procalcitonin Calculator is available at [email or web address] ?? If clinical picture has not improved and PCT remains high, reevaluate and consider treatment failure or other causes. Gale BAEZA LAB - CHEMISTRY OR DERABLES Performing Organization Address [facility]/ZIP Co de Phone Number [address] [phone] * TROPONIN I (08/20/2019 6:00 PM CDT) [facility] Troponin I <0.010 <0.032 ng/mL 08/20/2019 6:29 PM CDT [facility] Blood BLOOD SPECIMEN / Unknown Venipuncture / Unknown 08/20/2019 6:00 PM CDT 08/20/2019 6:05 PM CDT João Rodriguez MD LAB - CHEMISTRY KAREN HIGHTOWER Performing Organization Address [facility]/[place] [address], [facility] [phone] * PT-INR [facility] (08/20/2019 6:00 PM CDT) PT 13.6 12.1 - 14.8 Seconds 08/20/2019 6:31 PM CDT [facility] INR 1.1 See Comment 08/20/2019 6:31 PM T [facility] Comment:The suggested therap eutic range for standard coumadin (warfarin) therapy is an INR of 2.0-3.0. For high-risk patients (Mechanical Mitral Valve Prosthesis, etc.), the suggested prophylactic therapeutic range is an INR of 2.5-3.5. Blood BLOOD SPECIMEN / Unknown Venipuncture / Unknown 08/20/2019 6:00 PM CDT 08/20/2019 6:17 PM CDT João Rodriguez MD LAB - COAGULATION OR DERABLES Performing Organization Address [facility]/ZIP Co de Phone Number [address] [phone] * (ABNORMAL) LACTIC ACID BLOOD (08/20/2019 6:00 PM CDT) [facility] Lactic Acid-Stat 3.1(HH) 0.5 - 2.0 mmol/L 08/20/2019 6:22 PM T [facility] Blood BLOOD SPECIMEN / Unknown Venipuncture / Unknown 08/20/2019 6:00 PM CDT 08/20/2019 6:05 PM CDT João Rodriguez MD LAB - CHEMISTRY ORDE RABLES Performing Organization Address [facility]/ZIP Co de Phone Number [address] [phone] * (ABNORMAL) COMPREHENSIVE METABOLIC PANEL (08/20/2019 6:00 PM CDT) Pathologist [facility] BUN 8 7 - 26 mg/dL 08/20/2019 6:23 PM T [facility] Creatinine 0.7 0.6 - 1.2 mg/dL 08/20/2019 6:23 PM CDT [facility] Sodium 140 136 - 145 mmol/L 08/20/2019 6:23 PM T [facility] Potassium 3.8 3.5 - 4.5 mmol/L 08/20/2019 6:23 PM [facility] Chloride 108(H) 98 - 107 mmol/L 08/20/2019 6:23 PM [facility] CO2 19(L) 22 - 29 mmol/L 08/20/2019 6:23 PM [facility] Glucose 132(H) 70 - 115 mg/dL 08/20/2019 6:23 PM [facility] Calcium 9.4 8.4 - 10.2 mg/dL 08/20/2019 6:23 PM [facility] Protein Total 7.9 6.0 - 8.3 g/dL 08/20/2019 6:23 PM [facility] Albumin 3.8 3.4 - 5.0 g/dL 08/20/2019 6:23 PM [facility] Bilirubin Total 0.3 0.2 - 1.2 mg/dL 08/20/2019 6:23 PM [facility] Alkaline Phosphatase 101 40 - 150 Units/L 08/20/2019 6:23 PM [facility] ALT 16 0 - 55 Units/L 08/20/2019 6:23 PM [facility] AST 13 5 - 34 Units/L 08/20/2019 6:23 PM [facility] Anion Gap 17 8 - 18 08/20/2019 6:23 PM [facility] BUN/Creatinine Ratio 11 7 - 23 08/20/2019 6:23 PM [facility] Osmolality Calculated 290 270 - 300 mOsm/kg 08/20/2019 6:23 PM [facility] Albumin/Globulin Ratio 0.9(L) 1.1 - 2.3 08/20/2019 6:23 PM [facility] eGFR >60 >60 mL/min/1.7 3 m2 08/20/2019 6:23 PM [facility] Blood BLOOD SPECIMEN / Unknown Venipuncture / Unknown 08/20/2019 6:00 PM CDT 08/20/2019 6:05 PM [facility] João Rodriguez MD LAB - CHEMISTRY KAREN Barragan Organization Address City/State/ZIP Co de Phone Number [facility] [address] [phone] * (ABNORMAL) CBC W AUTO DIFFERENTIAL (08/20/2019 6:00 PM T) WBC 15.9(H) 3.5 - 10.5 10? 3 /uL 08/20/2019 6:07 PM [facility] RBC 4.85 3.90 - 5.00 10? 6 /uL 08/20/2019 6:07 PM [facility] Hemoglobin 11.8(L) 12.0 - 15.5 g/dL 08/20/2019 6:07 PM [facility] Hematocrit 38.2 35.0 - 45.0 % 08/20/2019 6:07 PM [facility] MCV 78.8(L) 81.0 - 97.0 fL 08/20/2019 6:07 PM [facility] MCH 24.3(L) 28.0 - 34.0 pg 08/20/2019 6:07 PM [facility] MCHC 30.9(L) 32.0 - 36.0 g/dL 08/20/2019 6:07 PM [facility] Platelet Count 492(H) 150 - 400 10? 3 /uL 08/20/2019 6:07 PM [facility] RDW-SD 42.3 36.0 - 50.0 fL 08/20/2019 6:07 PM [facility] RDW-CV 14.8 11.2 - 14.8 % 08/20/2019 6:07 PM [facility] MPV 8.9(L) 9.3 - 12.8 fL 08/20/2019 6:07 PM [facility] nRBC Absolute 0.00 0 10? 3 /uL 08/20/2019 6:07 PM [facility] nRBC Auto 0.0 0 /100 WBC 08/20/2019 6:07 PM [facility] Neutrophils % 79.3(H) 35.0 - 70.0 % 08/20/2019 6:07 PM [facility] Lymphocytes % 15.2(L) 19.7 - 55.1 % 08/20/2019 6:07 PM [facility] Monocytes % 4.7 3.0 - 15.0 % 08/20/2019 6:07 PM [facility] Eosinophils % 0.0 0.0 - 6.0 % 08/20/2019 6:07 PM T [facility] Basophil % 0.4 0.0 - 1.5 % 08/20/2019 6:07 PM T [facility] Neutrophils Absolute 12.6(H) 1.6 - 7.0 10? 3 /uL 08/20/2019 6:07 PM T [facility] Lymphocyte Absolute 2.4 0.8 - 2.9 10? 3 /uL 08/20/2019 6:07 PM T [facility] Monocytes Absolute 0.75(H) 0.14 - 0.66 10? 3 /uL 08/20/2019 6:07 PM [facility] Eosinophils Absolute 0.00 0.00 - 0.45 10? 3 /uL 08/20/2019 6:07 PM CDT [facility] Basophils Absolute 0.06 0.00 - 0.06 10? 3 /uL 08/20/2019 6:07 PM [facility] Immature Granulocytes % 0.4 0.0 - 1.0 % 08/20/2019 6:07 PM [facility] Blood BLOOD SPECIMEN / Unknown Venipuncture / Unknown 08/20/2019 6:00 PM CDT 08/20/2019 6:05 PM CDT João Rodriguez MD LAB - HEMATOLOGY ORD ERABLES Performing Organization Address [facility]/State/[facility] Co de Phone Number [facility] [address] [place] [address] * CULTURE BLOOD (08/20/2019 5:47 PM CDT) Culture No growth day 5 ABRAHAM 08/25/2019 11:30 PM CDT [facility] Blood PERIPHERAL BLOOD / Unknown Venipuncture / Unknown 08/20/2019 5:47 PM CDT 08/20/2019 6:04 PM CDT João Rodriguez MD LAB - MICROBIOLOGY O RDERABLES Performing Organization Address City/[facility]/ZIP Co de Phone Number [facility] [address] [place] [address], [facility] [phone] * CULTURE BLOOD (08/20/2019 5:46 PM CDT) Culture No growth day 5 ABRAHAM 08/25/2019 11:30 PM CDT [facility] Blood PERIPHERAL BLOOD / Unknown Venipuncture / Unknown 08/20/2019 5:46 PM CDT 08/20/2019 6:04 PM CDT João Rodriguez MD LAB - MICROBIOLOGY O RDERABLES Performing Organization Address [facility] Co de Phone Number [facility] [address] [place] [address], [facility] [phone] * HCG URINE QUAL POCT NOTIFICATION (08/20/2019 5:42 PM CDT) Comment Notification Label Only - See Separate Report 08/20/2019 7:00 PM CDT [facility] Urine URINE / Unknown 08/20/2019 5 :42 PM CDT 08/20/2019 5:57 PM CDT João Rodriguez MD LAB - URINALYSIS ORD ERABLES Performing Organization Address [facility] Co de Phone Number [facility] [address] [place] [address], [facility] [phone] documented in this encounter Visit Diagnoses Diagnosis Tachycardia Tachycardia, unspecified SOB (shortness of breath) Shortness of breath Cough Other chest pain documented in this encounter Administered Medications Inactive Administered Medications - up to 3 most recent administrations Medication Order MAR Action Action Date Dose Rate Site 0.9% NaCl infusion at 125 mL/hr, Intravenous, CONTINUOUS, Starting on Irene 08/20/19 at 1800, Until Sat08/21/19 at 0023 0.9% NaCl injection 1-10 mL 1-10 mL, Intracatheter, PRN, Other, peripheral line flush, Starting on Irene 08/20/19 at 1741, Until Sat08/21/19 at 0023, Flush peripheral IV catheter with 1-10 mL of normal saline before and after medications and prn to clear blood from the line or to verify patency. 0.9% NaCl injection 1-10 mL 1-10 mL, Intracatheter, PRN, Other, peripheral line flush, Starting on Sat08/20/19 at 1741, Until Sat08/21/19 at 0023, Flush peripheral IV catheter with 1-10 mL of normal saline before and after medications and prn to clear blood from the line or to verify patency. 0.9% NaCl injection 3 mL 3 mL, Intracatheter, EVERY 8 HOURS, First dose on Irnee 08/20/19 at 2200, Until Discontinued, Flush peripheral IV catheter with 3 mL of normal saline every 8 hours. 0.9% NaCl injection 3 mL 3 mL, Intracatheter, EVERY 8 HOURS, First dose on Irene 08/20/19 at 2200, Until Discontinued, Flush peripheral IV catheter with 3 mL of normal saline every 8 hours. 0.9% NaCl IV Bolus 3,675 mL (30 mL/kg ? 122.5 kg), ONCE, 1 dose, On Irene 08/20/19 at 1800, Monitor closely and notify physician for persistent hypotension during initial 60 minutes after crystalloid 30 ml/kg bolus stop time. (hypotension = SBP LESS than 90 mmHg or MAP LESS than 65 mmHg or decrease in SBP by more than 40 mmHg from last SBP considered normal for patient) $ New Bag/Syringe 08/20/2019 5:55 PM CDT 3,675 mL albuterol HFA (PROVENTIL;VENTOLIN;PROAI R) 108 (90 Base) MCG/ACT inhaler 2 puff 2 puff, Inhalation, ONCE, 1 dose, On Irene 08/20/19 at 2230, Shake well before using. WASTE DISPOSAL INSTRUCTION: Send to Pharmacy for Disposal. $ Given 08/20/2019 10:31 PM CDT 2 puffs cefTRIAXone (ROCEPHIN) 2,000 mg in 0.9% NaCl 50 mL IVPB 2,000 mg (2 g), at 100 mL/hr, Intravenous, EVERY 24 HOURS, First dose on Irene 08/20/19 at 1815, Until Discontinued, Ceftriaxone can cause precipitation when administered with calcium-containing fluids, including LR. Flush lines with a compatible fluid, such as D5W or NS before and after ceftriaxone dose. Admin through separate lumens is acceptable. , Indication for anti-infective therapy: Suspected infection, Site of anti-infective therapy: Lower Respiratory, Other, Other site of infection (free text): Community Acquired Pneumonia $ New Bag/Syringe 08/20/2019 6:14 PM CDT 2,000 mg 100 mL/hr documented in this encounter Active and Recently Administered Medications Times are shown in CDT. Scheduled Medication Order 08/18/2019 08/19/2019 08/20/2019 0.9% NaCl injection 3 mL(Linked Group 1) 3 mL, Intracatheter, EVERY 8 HOURS, First dose on Irene 08/20/19 at 2200, Until Discontinued, Flush peripheral IV catheter with 3 mL of normal saline every 8 hours. 2050 (Not Administer ed - Provider: Fiordaliza Raymond RN - Reason: See Comments) 0.9% NaCl injection 3 mL(Linked Group 2) 3 mL, Intracatheter, EVERY 8 HOURS, First dose on Irene 08/20/19 at 2200, Until Discontinued, Flush peripheral IV catheter with 3 mL of normal saline every 8 hours. 2049 (Not Administer ed - Provider: Fiordaliza Raymond RN - Reason: See Comments) 0.9% NaCl IV Bolus (COMPLETED)(Linked Group 3) 3,675 mL (30 mL/kg ? 122.5 kg), ONCE, 1 dose, On Irene 08/20/19 at 1800, Monitor closely and notify physician for persistent hypotension during initial 60 minutes after crystalloid 30 ml/kg bolus stop time. (hypotension = SBP LESS than 90 mmHg or MAP LESS than 65 mmHg or decrease in SBP by more than 40 mmHg from last SBP considered normal for patient) 1755 ($ New Bag/Syri nge - Provider: Brinda Benjamin, KAYLEY)2230 (Stopped - Provider: Fiordaliza Raymond, KAYLEY) albuterol HFA (PROVENTIL;VENTOLIN;PROAIR) 108 (90 Base) MCG/ACT inhaler 2 puff (COMPLETED) 2 puff, Inhalation, ONCE, 1 dose, On Irene 08/20/19 at 2230, Shake well before using. WASTE DISPOSAL INSTRUCTION: Send to Pharmacy for Disposal. 2230 ($ Given - Prov ider: Fiordaliza Raymond RN - Comment: given in tent scanner broken) cefTRIAXone (ROCEPHIN) 2,000 mg in 0.9% NaCl 50 mL IVPB 2,000 mg (2 g), at 100 mL/hr, Intravenous, EVERY 24 HOURS, First dose on Irene 08/20/19 at 1815, Until Discontinued, Ceftriaxone can cause precipitation when administered with calcium-containing fluids, including LR. Flush lines with a compatible fluid, such as D5W or NS before and after ceftriaxone dose. Admin through separate lumens is acceptable. , Indication for anti-infective therapy: Suspected infection, Site of anti-infective therapy: Lower Respiratory, Other, Other site of infection (free text): Community Acquired Pneumonia 1813 ($ New Bag/Syri nge - Provider: Brinda Benjamin, RN)2024 (Stopped - Provider: Fiordaliza Raymond RN) Continuous Medication Order 08/18/2019 08/19/2019 08/20/2019 0.9% NaCl infusion(Linked Group 3) at 125 mL/hr, Intravenous, CONTINUOUS, Starting on Irene 08/20/19 at 1800, Until Sat08/21/19 at 0023 1800 (Due) PRN Medication Order 08/18/2019 08/19/2019 08/20/2019 0.9% NaCl injection 1-10 mL(Linked Group 1) 1-10 mL, Intracatheter, PRN, Other, peripheral line flush, Starting on Irene 08/20/19 at 1741, Until Sat08/21/19 at 0023, Flush peripheral IV catheter with 1-10 mL of normal saline before and after medications and prn to clear blood from the line or to verify patency. 0.9% NaCl injection 1-10 mL(Linked Group 2) 1-10 mL, Intracatheter, PRN, Other, peripheral line flush, Starting on Irene 08/20/19 at 1741, Until Sat08/21/19 at 0023, Flush peripheral IV catheter with 1-10 mL of normal saline before and after medications and prn to clear blood from the line or to verify patency. Linked Groups Order Group 1: SALINE LOCK, INSERT AND MAINTAIN (CANCELED) Routine, CONTINUOUS, Starting on Irene 08/20/19 at 1745, Until Specified, New collection And 0.9% NaCl injection 3 mLJump to med 3 mL, Intracatheter, EVERY 8 HOURS, First dose on Irene 08/20/19 at 2200, Until Discontinued, Flush peripheral IV catheter with 3 mL of normal saline every 8 hours. And 0.9% NaCl injection 1-10 mLJump to med 1-10 mL, Intracatheter, PRN, Other, peripheral line flush, Starting on Irene 08/20/19 at 1741, Until Sat08/21/19 at 0023, Flush peripheral IV catheter with 1-10 mL of normal saline before and after medications and prn to clear blood from the line or to verify patency. Group 2: SECOND SALINE LOCK, INSERT AND MAINTAIN (CANCELED) STAT, CONTINUOUS, Starting on Irene 08/20/19 at 1745, Until Specified, Insert 2nd IV, large bore (18 gauge or larger), New collection And 0.9% NaCl injection 3 mLJump to med 3 mL, Intracatheter, EVERY 8 HOURS, First dose on Irene 08/20/19 at 2200, Until Discontinued, Flush peripheral IV catheter with 3 mL of normal saline every 8 hours. And 0.9% NaCl injection 1-10 mLJump to med 1-10 mL, Intracatheter, PRN, Other, peripheral line flush, Starting on Irene 08/20/19 at 1741, Until Sat08/21/19 at 0023, Flush peripheral IV catheter with 1-10 mL of normal saline before and after medications and prn to clear blood from the line or to verify patency. Group 3: 0.9% NaCl IV Bolus (COMPLETED)Jump to med 3,675 mL (30 mL/kg ? 122.5 kg), ONCE, 1 dose, On Irene 08/20/19 at 1800, Monitor closely and notify physician for persistent hypotension during initial 60 minutes after crystalloid 30 ml/kg bolus stop time. (hypotension = SBP LESS than 90 mmHg or MAP LESS than 65 mmHg or decrease in SBP by more than 40 mmHg from last SBP considered normal for patient) Followed by 0.9% NaCl infusionJump to med at 125 mL/hr, Intravenous, CONTINUOUS, Starting on Irene 08/20/19 at 1800, Until Sat08/21/19 at 0023 documented in this encounter Additional Health Concerns Infection Onset Date Last Indicated Resolved Time COVID-19 Under Investigation 08/20/2019 08/20/2019 08/21/2019 9:46 PM CDT documented as of this encounter
--- OUTSIDE RECORDS SUMMARY | 2024-06-06 00:20 | XMS_ITS | Encounter Summary ---
Author Organization [facility] Address [address] [place] [address] Care Team Providers Care Flight Manager Name Role Phone Unavailable Primary Care Provider Unavailabl e Reason for Visit * Reason Onset Date Comments Follow-up 08/08/2019 Encounter Details Date Type Department Care Team (Late st Contact Info) Description 08/08/2019 Telephone [facility] [address] [place] [address] Mariola Bennett, EMBROIDERER-GARMENT LOOPER [address] [place] [address] Follow-up Social History Tobacco Use Types Packs/Day Years Used Date Smoking Tobacco: Never Smokeless Tobacco: Never Sex and Gender Information Value Date Recorded Sex Assigned at Female 06/17/2020 8:40 AM GLASS VIAL BENDING CONVEYOR FEEDER Gender Identity Female 06/17/2020 8:40 AM GLASS VIAL BENDING CONVEYOR FEEDER Sexual Orientation Choose not to disclose 2020 8:40 AM GLASS VIAL BENDING CONVEYOR FEEDER documented as of this encounter Plan of Treatment Not on file documented as of this encounter Visit Diagnoses Not on filedocumented in this encounter
--- OUTSIDE RECORDS SUMMARY | 2024-06-06 00:20 | XMS_ITS | Encounter Summary ---
Author Organization [facility] Address [address] [facility] [place] [address] Care Team Providers Care Java Programmer Name Role Phone Unavailable Primary Care Provider Unavailabl e Reason for Referral * - Closed Specialty Diagnoses / Procedures Referred By Cyn burnett Referred To Contact Diagnoses Headache(784.0) Procedures MRI BRAIN NON CONTRAST David Santos MD Referral ID Status Reason Start Date Expiration Date Visits Re quested Visits Authorized [id number] Closed 09/29/2012 03/28/2013 1 1 Reason for Visit * (Routine) - Closed Specialty Diagnoses / Procedures Referred By Cyn burnett Referred To Contact MRI [facility] [address] [place] [address] Mri [address] [place] [address] Referral ID Status Reason Start Date Expiration Date Visits Re quested Visits Authorized [id number] Closed 10/03/2012 04/01/2013 1 1 Encounter Details Date Type Department Care Team (Latest Contact Info) Description 10/03/2012 7:20 AM CDT - 10/03/2012 11:59 PM CDT Hospital Encounter [facility] - MRI [address] [place] [address] David Santos MD Discharge Disposition: Home or Self Care Social History Tobacco Use Types Packs/Day Years Used Date Smoking Tobacco: Never Assessed Sex and Gender Information Value Date Recorded Sex Assigned at Female 06/17/2020 8:40 AM SHOP ESTIMATOR Gender Identity Female 06/17/2020 8:40 AM SHOP ESTIMATOR Sexual Orientation Choose not to disclose 2020 8:40 AM SHOP ESTIMATOR documented as of this encounter Miscellaneous Notes * Miscellaneous Scans - Document, Scanned - 10/21/2012 8:51 AM CDT * Miscellaneous Scans - Document, Scanned - 10/10/2012 12:45 PM CDT * Miscellaneous Scans - Document, Scanned - 10/08/2012 2:16 PM CDT documented in this encounter Plan of Treatment Not on file documented as of this encounter Procedures Procedure Name Priority Date/Time Associated Diagnosis Comments MRI BRAIN WO CONTRAST Routine 10/03/2012 8:20 AM CDT Headache documented in this encounter Results * MRI BRAIN NON CONTRAST (10/03/2012 8:20 AM CDT) Anatomical Region Laterality Modality Head Magnetic Resonan ce 10/03/2012 8:55 AM CDT Impressions 10/03/2012 10:24 AM CDT 1. No evidence of intracranial mass or lesion. 2. Right sphenoid sinusitis, which could be the cause of headache. Narrative 10/03/2012 10:24 AM CDT EXAMINATION: Magnetic resonance imaging (MRI) of the brain without contrast HISTORY: 17-year-old female with headaches for 2 weeks. TECHNIQUE: MRI of the brain was performed without intravenous contrast according to standard protocol. FINDINGS: No prior study is available for comparison. No evidence of acute or chronic hemorrhage and no evidence of acute cerebral infarction is seen. Ventricles are of normal size, shape, and morphology. The corpus callosum and sella appear normal. The posterior fossa, brainstem, and craniocervical junction appear normal. There is moderate mucosal thickening in the right sphenoid sinus. The remaining paranasal sinuses are normal. The visualized portions of the orbits and mastoids appear normal. Normal flow voids are demonstrated in the carotid arteries and basilar artery. The calvarium and visualized cervical spine appear normal. Procedure Note Toya Brown MD - 10/03/2012 EXAMINATION: Magnetic resonance imaging (MRI) of the brain without contrast HISTORY: 17-year-old female with headaches for 2 weeks. TECHNIQUE: MRI of the brain was performed without intravenous contrast according to standard protocol. FINDINGS: No prior study is available for comparison. No evidence of acute or chronic hemorrhage and no evidence of acute cerebral infarction is seen. Ventricles are of normal size, shape, and morphology. The corpus callosum and sella appear normal. The posterior fossa, brainstem, and craniocervical junction appear normal. There is moderate mucosal thickening in the right sphenoid sinus. The remaining paranasal sinuses are normal. The visualized portions of the orbits and mastoids appear normal. Normal flow voids are demonstrated in the carotid arteries and basilar artery. The calvarium and visualized cervical spine appear normal. IMPRESSION 1. No evidence of intracranial mass or lesion. 2. Right sphenoid sinusitis, which could be the cause of headache. David Santos MD MR ORDERABLES documented in this encounter Visit Diagnoses Diagnosis Headache(784.0) Headache Other diseases of nasal cavity and sinuses(478.19) Other diseases of nasal cavity and sinuses documented in this encounter
--- OUTSIDE RECORDS SUMMARY | 2024-06-06 00:20 | XMS_ITS | Clinical Summary ---
Author Organization [facility] [employer] Address [address] [facility] [place] [address] Care Team Providers Care Edge Cutting Machine Operator Name Role Phone Siria Dunham MD Primary Care Provider Source Comments [facility],non-owned Affiliates and Associated Physician Practices is amultiple site organization consisting of ambulatory clinics and hospital sitesin [place], [place], [place] and [place]. This disclosure is being madepursuant to the Care Everywhere program and may not contain all information available regarding this patient. Last updated 18.[facility] [employer] Allergies Active Allergy Reactions Criticality Noted Date Comments Nitrofurantoin Itching 08/06/2019 Medications * Be aware that medications may not be up to date on this document. Alwaysverify current medications with the patient. Medication Sig Dispensed Refills Start Date End Date Status busPIRone (BUSPAR) 10 MG tablet Take 10 mg by mouth 2 times daily Active OtherIndications:bir th control Reasons: control Active albuterol HFA (PROVENTIL;VENTOLIN; PROAIR) 108 (90 Base) MCG/ACT inhaler Inhale 2 puffs by mouth every 4 hours as needed for Wheezing 1 Inhaler 08/06/2019 Active famotidine (PEPCID) 10 MG tablet Take 10 mg by mouth once daily Active montelukast (SINGULAIR) 10 MG tablet Take 10 mg by mouth at bedtime Active Immunizations Name Administration Dates Next Due Cov[employer] Labs primary monoval ent 12+ yr 0.3mL Purple cap 07/08/2020,06/17/2020 INFLUENZA VACCINE, QUADR. (A FLURIA, FLUZONE QUADRIVALENT; 6MO+) (IIV4) 03/11/2018 Social History Tobacco Use Types Packs/Day Years Used Date Smoking Tobacco: Never Smokeless Tobacco: Never Alcohol Use Standard Drinks/Week Comments Yes 0 (1 standard drink = 0.6 oz pur e alcohol) occ Sex and Gender Information Value Date Recorded Sex Assigned at Female 06/17/2020 8:40 AM BRIQUETTING MACHINE OPERATOR Gender Identity Female 06/17/2020 8:40 AM BRIQUETTING MACHINE OPERATOR Sexual Orientation Choose not to disclose 2020 8:40 AM BRIQUETTING MACHINE OPERATOR Last Filed Vital Signs Vital Sign Reading [...] Mass Index 48.06 09/26/2020 2:21 PM CDT Plan of Treatment Health Maintenance Due Date Last Done Comments PAP SMEAR 1997 HIV SCREENING 2012 HPV VACCINE (1 - 3-dose series) 2012 HEPATITIS C SCREENING 08/29/2015 DTAP/TDAP/TD VACCINES (1 - Tdap) 2016 HEPATITIS B VACCINE (1 of 3 - 19+ 3-dose series) 2016 COVID-19 VACCINE (3 - 2023-2 5 season) 2024 07/08/2020, 06/17/2020 INFLUENZA VACCINE (#1) 2024 03/11/2018 DEPRESSION SCREENING 05/27/2024 ZOSTER VACCINE (1 of 2) 09/03/2047 HIB VACCINE Aged Out No longer eligi ble based on patient's age to complete this topic MENINGOCOCCAL (Group B) VACCINE Aged Out No longer eligible b ased on patient's age to complete this topic MENINGOCOCCAL VACCINE Aged Out No denise jessica eligible based on patient's age to complete this topic PNEUMOCOCCAL VACCINE Aged Out No long er eligible based on patient's age to complete this topic Care Teams Edge Cutting Machine Operator Relationship Specialty Start Date End Date Siria Dunham MD [address] [place] [address] PCP - General 09/25/21
--- OUTSIDE RECORDS SUMMARY | 2024-06-06 00:20 | XMS_ITS | Encounter Summary ---
Author Organization [facility] Address [address] [facility] [address] Care Team Providers Care Online Merchandising Manager Name Role Phone Unavailable Primary Care Provider Unavailabl e Encounter Details Date Type Department Care Team (Late st Contact Info) Description 02/01/2016 Hospital Outpatient Visit [facility] - Orthopedics [address] [place] [address], [place] [address] Jh Gao MD [address] [place] [address] [place] [address] Discharge Disposition: Home or Self Care Social History Tobacco Use Types Packs/Day Years Used Date Smoking Tobacco: Never Assessed Sex and Gender Information Value Date Recorded Sex Assigned at Female 06/17/2020 8:40 AM TERMINAL SUPERVISOR Gender Identity Female 06/17/2020 8:40 AM TERMINAL SUPERVISOR Sexual Orientation Choose not to disclose 2020 8:40 AM TERMINAL SUPERVISOR documented as of this encounter Plan of Treatment Not on file documented as of this encounter Visit Diagnoses Not on filedocumented in this encounter
--- OUTSIDE RECORDS SUMMARY | 2024-06-06 00:20 | XMS_ITS | Referral Summary ---
Author Organization [facility] [employer] Address [address] [place] [address] Care Team Providers Care C.O.D. Biller Name Role Phone Siria Dunham MD Primary Care Provider Source Comments [facility],non-owned Affiliates and Associated Physician Practices is amultiple site organization consisting of ambulatory clinics and hospital sitesin [place], [place], [place] and [place]. This disclosure is being madepursuant to the Care Everywhere program and may not contain all information available regarding this patient. Last updated 18.[facility] [employer] Allergies Active Allergy Reactions Criticality Noted Date [...] Active Immunizations Name Administration Dates Next Due Michianant Txt4 primary monoval ent 12+ yr 0.3mL Purple [...] Sex Assigned at Female 06/17/2020 8:40 AM COMMERCIAL CENTER MANAGER Gender Identity Female 06/17/2020 8:40 AM COMMERCIAL CENTER MANAGER Sexual Orientation Choose not to disclose 2020 8:40 AM COMMERCIAL CENTER MANAGER Last Filed Vital Signs Vital Sign Reading [...] 09/26/2020 2:21 PM CDT Plan of Treatment Not on file Care Teams C.O.D. Biller Relationship Specialty Start Date End Date Siria Dunham MD [address] [place] [id number] PCP - General 09/25/21
--- OUTSIDE RECORDS SUMMARY | 2024-06-06 00:20 | XMS_ITS | Encounter Summary ---
Author Organization [facility] Address [address] [place] [address] Care Team Providers Care Leg Breaker Name Role Phone Unavailable Primary Care Provider Unavailabl e Reason for Visit * Reason Comments Imm Inj Encounter Details Date Type Department Care Team (Latest Contact Info) Description 03/11/2018 2:30 PM CDT Clinical Support [address] [address] Need for immunization against influenza Social History Tobacco Use Types Packs/Day Years Used Date Smoking Tobacco: Never Assessed Sex and Gender Information Value Date Recorded Sex Assigned at Female 06/17/2020 8:[address] STENOGRAPHER Gender Identity Female 06/17/2020 8:[address] STENOGRAPHER Sexual Orientation Choose not to disclose 2020 8:[address] STENOGRAPHER documented as of this encounter Patient Instructions * Patient Instructions* Bharati Shah RN - 03/11/2018 2:41 PM CDT Influenza Virus Vaccine (By injection) Influenza Virus Vaccine (sm-oakn-CX-za VYE-ina VAX-een) Helps prevent infection with influenza (flu) virus. Brand Name(s): Afluria 0680-1591 Formula, Afluria [id number] Formula, Afluria Quadrivalent 2015-2016Formula, Afluria Quadrivalent 1678-6766 Formula, FluLaval Quadrivalent 1499-9112 Formula, FluLaval Quadrivalent 0124-8611 Formula, Fluad 3002-1904 Formula, Fluad 6556-2480 Formula, Fluarix Quadrivalent 9394-8167 Formula, Fluarix Quadrivalent 1270-2291 Formula, Flublok 9199-1199 Formula, Flublok Quadrivalent [id number] Formula, Flucelvax Quadrivalent 8198-0156 Formula, Flucelvax Quadrivalent 1341-2090 Formula, Fluvirin 8987-1721 Formula There may be other brand names for this medicine. When This Medicine Should Not Be Used: This vaccine is not right for everyone. You should not receive it if you had an allergic reaction to flu vaccine. If you are allergic to eggs, tell the caregiver who is going to give you the injection. Some brands of this vaccine contain egg proteins and could cause an allergic reaction. How to Use This Medicine: Injectable ?? The vaccine is given as a shot into a muscle or into your skin, usually in the shoulder area. The shot could be given in the thigh for babies and young children. ?? A nurse or other health provider will give you this medicine. ?? Read and follow the patient instructions that come with this medicine. Talk to your doctor or pharmacist if you have any questions. ?? A child who is younger than 9 years old and who has not had a flu shot before may need 2 shots. The second shot should be given about 1 month after the first. ?? Missed dose: Most people need only 1 dose of the vaccine. If your child needs a second dose, it is important for the vaccine to be given on schedule. If you must cancel an appointment, make a new one right away. Drugs and Foods to Avoid: Ask your doctor or pharmacist before using any other medicine, including xysr-dud-xnzofof medicines, vitamins, and herbal products. ?? Tell your doctor if you are using a medicine or treatment that weakens your immune system, such as a steroid, radiation, or cancer treatment. This vaccine may not work as well if you are also using these medicines. However, your doctor may still want you to get the vaccine because it can give you some protection. Warnings While Using This Medicine: ?? Tell your doctor if you are or or if you have a weak immune system. ?? Tell your doctor if you ever had an unusual reaction to a flu shot, such as Guillain-Lawrenec?? syndrome, or if you are allergic to latex. ?? The flu vaccine may not protect everyone who receives it. This vaccine will not treat flu symptoms if you have already been infected with the virus. Possible Side Effects While Using This Medicine: Call your doctor right away if you notice any of these side effects: ?? Allergic reaction: Itching or hives, swelling in your face or hands, swelling or tingling in your mouth or throat, chest tightness, trouble breathing ?? Fainting, dizziness, or lightheadedness ?? Fever over 103 degrees F ?? Seizures ?? Severe muscle weakness If you notice these less serious side effects, talk with your doctor: ?? Headache, muscle pain, tiredness ?? Irritability or crying (in a child) ?? Redness, pain, swelling, soreness, or a lump where the shot was given If you notice other side effects that you think are caused by this medicine, tell your doctor. Call your doctor for medical advice about side effects. You may report side effects to FDA at 7-732-HNE-0087 ?? Copyright [employer] 2018 Information is for End User's use only and may not be sold, redistributed or otherwise used for commercial purposes. The above information is an occupational rehabilitation aide only. It is not intended as medical advice for individual conditions or treatments. Talk to your doctor, nurse or pharmacist before following any medical regimen to see if it is safe and effective for you. documented in this encounter Plan of Treatment Not on file documented as of this encounter Visit Diagnoses Diagnosis Need for immunization against influenza- Primary Need for prophylactic vaccination and inoculation against influenza documented in this encounter
--- OUTSIDE RECORDS SUMMARY | 2024-06-06 00:20 | XMS_ITS | Encounter Summary ---
Author Organization [facility] Address [address] [place] [address] Care Team Providers Care Lap Layer Name Role Phone David Santos MD Primary Care Provider Unavail able Reason for Visit * Reason Onset Date Comments COVID-19 IMMUNIZATION/INJECTION 07/08/2020 Encounter Details Date Type Department Care Team (Latest Contact Info) Description 07/08/2020 10:30 AM RESTAURANT FLOOR MANAGER Clinical Support [facility] COVID Vaccination [address] [place] [address] Need for vaccination Social History Tobacco Use Types Packs/Day Years Used Date Smoking Tobacco: Never Smokeless Tobacco: Never Alcohol Use Standard Drinks/Week Comments Yes 0 (1 standard drink = 0.6 oz pur e alcohol) occ Sex and Gender Information Value Date Recorded Sex Assigned at Female 06/17/2020 8:40 AM RESTAURANT FLOOR MANAGER Gender Identity Female 06/17/2020 8:40 AM RESTAURANT FLOOR MANAGER Sexual Orientation Choose not to disclose 2020 8:40 AM RESTAURANT FLOOR MANAGER documented as of this encounter Patient Instructions * Patient Instructions* Karly Capps, EMT-P - 07/08/2020 10:20 AM RESTAURANT FLOOR MANAGER Images from the original note were not included. Vaccine recipients are encouraged to enroll in the CDC V-SAFE program for post vaccination monitoring. Sign up with your smartphone's browser at [employer].cdc.gov or Aim your smartphone's camera at this code. AURANT FLOOR MANAGER documented in this encounter Progress Notes * Karly Capps EMT-P - 07/08/2020 10:20 AM CST COVID screening checklist was reviewed with the patient. The Information sheet was given prior to administration. Injection site aseptically cleansed and injection given per Immunization(s) protocol.See Imm/Injections activity for details. AURANT FLOOR MANAGER documented in this encounter Plan of Treatment Not on file documented as of this encounter Visit Diagnoses Diagnosis Need for vaccination- Primary Need for prophylactic vaccination and inoculation against unspecified single disease documented in this encounter Care Teams Lap Layer Relationship Specialty Start Date End Date David Santos MD PCP - General 08/22/19 09/24/21 documented as of this encounter
--- OUTSIDE RECORDS SUMMARY | 2024-06-06 00:20 | XMS_ITS | Patient Health Summary ---
Author Organization [facility] Address [address] [place] [address] Care Team Providers Care Beauty Sales Advisor Name Role Phone Siria Dunham MD Primary Care Provider [phone] Note from [facility],non-owned Affiliates and Associated Physician Practices is amultiple site organization consisting of ambulatory clinics and hospital sitesin [place], [place], [place] and [place]. This disclosure is being madepursuant to the Care Everywhere program and may not contain all information available regarding this patient. Last updated 18.[facility] Allergies * Nitrofurantoin(Itching) Medications * Be aware that medications may not be up to date on this document. Alwaysverify current medications with the patient. * busPIRone (BUSPAR) 10 MG tablet Take 10 mg by mouth 2 times daily * Other Reasons: control * albuterol HFA (PROVENTIL;VENTOLIN;PROAIR) 108 (90 Base) MCG/ACT inhaler (Started 08/06/2019) Inhale 2 puffs by mouth every 4 hours as needed for Wheezing * famotidine (PEPCID) 10 MG tablet Take 10 mg by mouth once daily * montelukast (SINGULAIR) 10 MG tablet Take 10 mg by mouth at bedtime Immunizations * Covid Pfizer primary monovalent 12+ yr 0.3mL Purple cap(Given 07/08/2020, 06/17/2020) * INFLUENZA VACCINE, QUADR. (AFLURIA, FLUZONE QUADRIVALENT; 6MO+) (IIV4)(Given 03/11/2018) Social History Tobacco Use Types Packs/Day Years Used Date Smoking Tobacco: Never Smokeless Tobacco: Never Alcohol Use Standard Drinks/Week Comments Yes 0 (1 standard drink = 0.6 oz pur e alcohol) occ Sex and Gender Information Value Date Recorded Sex Assigned at Female 06/17/2020 8:40 AM [employer] Gender Identity Female 06/17/2020 8:40 AM [employer] Sexual Orientation Choose not to disclose 2020 8:40 AM [employer] Last Filed Vital Signs Vital Sign Reading [...] Mass Index 48.06 09/26/2020 2:21 PM CDT Procedures * CARDIAC EKG ORDER(Performed 08/21/2019) * XR CHEST 1VW PORTABLE(Performed 08/20/2019) Performed for Tachycardia, SOB (shortness of breath) * EKG 12-LEAD(Performed 08/20/2019) Performed for Tachycardia * TROPONIN I(Performed 08/20/2019) * LACTIC ACID BLOOD(Performed 08/20/2019) * SARS-COV-2 (COVID-19) IN HOUSE(Performed 08/20/2019) * RESPIRATORY PATHOGEN PANEL BY PCR(Performed 08/20/2019) * INFLUENZA A+B PCR(Performed 08/20/2019) * PROCALCITONIN LEVEL(Performed 08/20/2019) * TROPONIN I(Performed 08/20/2019) * PT-INR [facility](Performed 08/20/2019) * LACTIC ACID BLOOD(Performed 08/20/2019) * COMPREHENSIVE METABOLIC PANEL(Performed 08/20/2019) * CBC W AUTO DIFFERENTIAL(Performed 08/20/2019) * CULTURE BLOOD(Performed 08/20/2019) * CULTURE BLOOD(Performed 08/20/2019) * HCG URINE QUAL POCT NOTIFICATION(Performed 08/20/2019) * [place] RESPIRATORY FIT TEST(Performed 01/21/2018) Performed for Device fitting or adjustment * DRUG SCREEN 10 URINE - POCT (AMB) [facility](Performed 01/22/2017) * MRI BRAIN WO CONTRAST(Performed 10/03/2012) Performed for Headache Results * CARDIAC EKG ORDER (08/21/2019 7:00 [...] is intact. Dictated by Garrett Burch MD (vice president media relations). I, Dr. AURORA VASQUEZ M.D. have personally reviewed and interpreted this [...] thorax isintact. Dictated by Garrett Burch MD (vice president media relations). I, Dr. AURORA VASQUEZ M.D. have personally reviewed and interpreted this examination/study. This report was electronically signed by AURORA VASQUEZ M.D. on 08/21/2019 9:52 AM . Gale Parker SHORT FILLER BUNCH MACHINE OPERATOR-HANDLE ATTACHER DIAGNOSTIC IMAGING ORDERABLES * EKG 12-LEAD (08/20/2019 8:52 PM CDT) [facility] Ventricular Rate 80 BPM SL MUSE Atrial Rate 80 BPM [facility] MUSE P-R Interval 134 ms [facility] MUSE QRS Duration ms 84 ms [facility] MUSE Q-T Interval ms 372 ms [facility] MUSE QTC Calculation (Bezet) 429 ms SL MUSE Calculated P [place] 31 degrees [facility] MUSE Calculated R [place] 7 degrees [facility] MUSE Calculated T [place] 23 degrees [facility] MUSE Interpretation EKG NORMAL SINUS RHYTHM CANNOT RULE OUT ANTERIOR INFARCT , AGE UNDETERMINED ABNORMAL ECG NO PREVIOUS ECGS AVAILABLE Confirmed by Demond Herman ([id number]) on 08/22/2019 9:19:24 AM [facility] MUSE 08/20/2019 8:52 PM CDT 08/22/2019 9:19 AM CDT João Rodriguez MD ECG ORDERABLES Performing Organization Address City/[facility]/ZIP Co de Phone Number [facility] MUSE * TROPONIN I (08/20/2019 8:17 PM CDT) Only the most recent of2 resultswithin the time period is included. [facility] Troponin I <0.010 <0.032 ng/mL 08/20/2019 8:42 PM CDT [facility] Blood BLOOD SPECIMEN / Unknown Venipuncture / Unknown 08/20/2019 8:17 PM CDT 08/20/2019 8:17 PM CDT João Rodriguez MD LAB - CHEMISTRY KAREN HIGHTOWER Performing Organization Address City/[facility]/ZIP Co de Phone Number [facility] [address] [place] [address] * LACTIC ACID BLOOD (08/20/2019 8:17 PM CDT) Only the most recent of2 resultswithin the time period is included. Pathologist [facility] Lactic Acid-Stat 1.2 0.5 - 2.0 mmol/L 08/20/2019 8:30 PM CDT [facility] Blood BLOOD SPECIMEN / Unknown Venipuncture / Unknown 08/20/2019 8:17 PM CDT 08/20/2019 8:17 PM CDT João Rodriguez MD LAB - CHEMISTRY KAREN HIGHTOWER [address] [phone] * SARS-COV-2 (COVID-19) IN HOUSE (08/20/2019 6:01 PM CDT) Pathologist [facility] COVID-19 PCR Not detected Not detected, Invalid 08/21/2019 9:[address] [facility] Microbiology SPECIMEN FROM NASOPHARYNGEAL STRUCTURE / Unknown Collection / Unknown 08/20/2019 6:01 PM CDT 08/20/2019 6:[address] [facility] - 08/21/2019 9:46 PM CDT This Real Time RT-PCR assay was developed and its performance characteristics determined by [facility]. This test has been [...] authorization is terminated or revoked sooner. Gale Aguirrelalo SHORT FILLER BUNCH MACHINE OPERATOR-HANDLE ATTACHER LAB - MICROBIOLOGY ORDERABLES [facility] [address] [place] [address], [place] [phone] * RESPIRATORY PATHOGEN PANEL BY PCR (08/20/2019 6:01 PM CDT) Adenovirus PCR Not detected Not detected, Invalid, Indeterminate 08/21/2019 2:[address] [facility] Coronavirus PCR Not detected Not detected, Invalid, Indeterminate 08/21/2019 2:[address] [facility] Human Metapneumovirus PCR Not detected Not detected, Invalid, Indeterminate 08/21/2019 2:[address] [facility] Human Rhinovirus/Entero virus PCR Not detected Not detected, Invalid, Indeterminate 08/21/2019 2:[address] [facility] Influenza A PCR Not detected Not detected, Equivocal, Invalid, Indeterminate 08/21/2019 2:[address] [facility] Influenza B PCR Not detected Not detected, Invalid, Indeterminate 08/21/2019 2:[address] [facility] Parainfluenza Virus 1 PCR Not detected Not detected, Invalid, Indeterminate 08/21/2019 2:[address] [facility] Parainfluenza Virus 2 PCR Not detected Not detected, Invalid, Indeterminate 08/21/2019 2:[address] [facility] Parainfluenza Virus 3 PCR Not detected Not detected, Invalid, Indeterminate 08/21/2019 2:[address] [facility] Parainfluenza Virus 4 PCR Not detected Not detected, Invalid, Indeterminate 08/21/2019 2:[address] [facility] Respiratory Syncytial Virus PCR Not detected Not detected, Invalid, Indeterminate 08/21/2019 2:[address] [facility] Bordetella pertussis PCR Not detected Not detected, Invalid 08/21/2019 2:[address] [facility] Chlamydia pneumoniae PCR Not detected Not detected, Invalid, Indeterminate 08/21/2019 2:[address] [facility] Mycoplasma pneumoniae PCR Not detected Not detected, Invalid, Indeterminate 08/21/2019 2:[address] [facility] Microbiology SPECIMEN FROM NASOPHARYNGEAL STRUCTURE / Unknown Collection / Unknown 08/20/2019 6:01 PM CDT 08/20/2019 6:[address] [facility] - 08/21/2019 2:52 AM CDT This test is able to detect the following human coronaviruses: HKU1, NL63, 229E, and OC43. It will NOT detect 2019 Novel Coronavirus (2019-nCoV). If 2019-nCoV is suspected contact Infection Prevention for isolation and testing guidance. Gale Parker [facility] LAB - MICROBIOLOGY ORDERABLES [facility] [address] [place] [address], [facility] [phone] * INFLUENZA A+B PCR (08/20/2019 6:01 PM CDT) Influenza A Rapid NICK Negative Negative 08/20/2019 6:37 PM CDT [facility] Influenza B NICK Rapid Negative Negative 08/20/2019 6:37 PM CDT [facility] Microbiology SPECIMEN FROM NASOPHARYNGEAL STRUCTURE / Unknown Collection / Unknown 08/20/2019 6:01 PM CDT 08/20/2019 6:08 PM CDT Narrative [facility] - 08/20/2019 6:37 PM CDT Assay [...] treatment, or patient management decisions. Gale Parker [facility] LAB - MICROBIOLOGY ORDERABLES Performing Organization Address City/[facility]/ZIP Co de Phone Number [facility] [address] [place] [address], [facility] [phone] * PT-INR [facility] (08/20/2019 6:00 PM CDT) PT 13.6 12.1 - 14.8 Seconds 08/20/2019 6:31 PM CDT [facility] INR 1.1 See Comment 08/20/2019 6:31 PM CDT [facility] Comment:The suggested therap eutic range for standard coumadin (warfarin) therapy is an INR of 2.0-3.0. For high-risk patients (Mechanical Mitral Valve Prosthesis, etc.), the suggested prophylactic therapeutic range is an INR of 2.5-3.5. Blood BLOOD SPECIMEN / Unknown Venipuncture / Unknown 08/20/2019 6:00 PM CDT 08/20/2019 6:17 PM CDT João Rodriguez MD LAB - COAGULATION OR DERABLES Performing Organization Address City/State/[facility] Co de Phone Number [address] [phone] * PROCALCITONIN LEVEL (08/20/2019 6:00 PM CDT) PROCALCITONIN <0.02 <=0.10 ng/mL 08/20/2019 6:57 PM CDT [facility] Blood BLOOD SPECIMEN / Unknown Venipuncture / Unknown 08/20/2019 6:00 PM CDT 08/20/2019 6:17 PM CDT Narrative [facility] - 08/20/2019 6:57 PM CDT The [...] Change in Procalcitonin Calculator is available at [email or web address] ?? If clinical picture has not improved and PCT remains high, reevaluate and consider treatment failure or other causes. Gale Parker APRN-HANDLE ATTACHER LAB - CHEMISTRY OR DERABLES [facility] [address] [place] [address], [facility] [phone] * (ABNORMAL) CBC W AUTO DIFFERENTIAL (08/20/2019 6:00 PM CDT) WBC 15.9(H) 3.5 - 10.5 10? 3 /uL 08/20/2019 6:07 PM CDT [facility] RBC 4.85 3.90 - 5.00 10? 6 /uL 08/20/2019 6:07 PM [facility] Hemoglobin 11.8(L) 12.0 - 15.5 g/dL 08/20/2019 6:07 PM T [facility] Hematocrit 38.2 35.0 - 45.0 % 08/20/2019 6:07 PM [facility] MCV 78.8(L) 81.0 - 97.0 fL 08/20/2019 6:07 PM T [facility] MCH 24.3(L) 28.0 - 34.0 pg 08/20/2019 6:07 PM T [facility] MCHC 30.9(L) 32.0 - 36.0 g/dL 08/20/2019 6:07 PM [facility] Platelet Count 492(H) 150 - 400 10? 3 /uL 08/20/2019 6:07 PM [facility] RDW-SD 42.3 36.0 - 50.0 fL 08/20/2019 6:07 PM [facility] RDW-CV 14.8 11.2 - 14.8 % 08/20/2019 6:07 PM [facility] MPV 8.9(L) 9.3 - 12.8 fL 08/20/2019 6:07 PM [facility] nRBC Absolute 0.00 0 10? 3 /uL 08/20/2019 6:07 PM [facility] nRBC Auto 0.0 0 /100 WBC 08/20/2019 6:07 PM [facility] Neutrophils % 79.3(H) 35.0 - 70.0 % 08/20/2019 6:07 PM [facility] Lymphocytes % 15.2(L) 19.7 - 55.1 % 08/20/2019 6:07 PM [facility] Monocytes % 4.7 3.0 - 15.0 % 08/20/2019 6:07 PM [facility] Eosinophils % 0.0 0.0 - 6.0 % 08/20/2019 6:07 PM [facility] Basophil % 0.4 0.0 - 1.5 % 08/20/2019 6:07 PM [facility] Neutrophils Absolute 12.6(H) 1.6 - 7.0 10? 3 /uL 08/20/2019 6:07 PM [facility] Lymphocyte Absolute 2.4 0.8 - 2.9 10? 3 /uL 08/20/2019 6:07 PM [facility] Monocytes Absolute 0.75(H) 0.14 - 0.66 10? 3 /uL 08/20/2019 6:07 PM [facility] Eosinophils Absolute 0.00 0.00 - 0.45 10? 3 /uL 08/20/2019 6:07 PM [facility] Basophils Absolute 0.06 0.00 - 0.06 10? 3 /uL 08/20/2019 6:07 PM [facility] Immature Granulocytes % 0.4 0.0 - 1.0 % 08/20/2019 6:07 PM [facility] Blood BLOOD SPECIMEN / Unknown Venipuncture / Unknown 08/20/2019 6:00 PM CDT 08/20/2019 6:05 PM CDT João Rodriguez MD LAB - HEMATOLOGY ORD ERABLES [facility] [address] [phone] * (ABNORMAL) COMPREHENSIVE METABOLIC PANEL (08/20/2019 6:00 PM CDT) BUN 8 7 - 26 mg/dL 08/20/2019 6:23 PM [facility] Creatinine 0.7 0.6 - 1.2 mg/dL 08/20/2019 6:23 PM [facility] Sodium 140 136 - 145 mmol/L 08/20/2019 6:23 PM [facility] Potassium 3.8 3.5 - 4.5 mmol/L 08/20/2019 6:23 PM [facility] Chloride 108(H) 98 - 107 mmol/L 08/20/2019 6:23 PM [facility] CO2 19(L) 22 - 29 mmol/L 08/20/2019 6:23 PM [facility] Glucose 132(H) 70 - 115 mg/dL 08/20/2019 6:23 PM [facility] Calcium 9.4 8.4 - 10.2 mg/dL 08/20/2019 6:23 PM [facility] Protein Total 7.9 6.0 - 8.3 g/dL 08/20/2019 6:23 PM [facility] Albumin 3.8 3.4 - 5.0 g/dL 08/20/2019 6:23 PM [facility] Bilirubin Total 0.3 0.2 - 1.2 mg/dL 08/20/2019 6:23 PM [facility] Alkaline Phosphatase 101 40 - 150 Units/L 08/20/2019 6:23 PM [facility] ALT 16 0 - 55 Units/L 08/20/2019 6:23 PM [facility] AST 13 5 - 34 Units/L 08/20/2019 6:23 PM [facility] Anion Gap 17 8 - 18 08/20/2019 6:23 PM [facility] BUN/Creatinine Ratio 11 7 - 23 08/20/2019 6:23 PM CDT [facility] Osmolality Calculated 290 270 - 300 mOsm/kg 08/20/2019 6:23 PM CDT [facility] Albumin/Globulin Ratio 0.9(L) 1.1 - 2.3 08/20/2019 6:23 PM CDT [facility] eGFR >60 >60 mL/min/1.7 3 m2 08/20/2019 6:23 PM CDT [facility] Blood BLOOD SPECIMEN / Unknown Venipuncture / Unknown 08/20/2019 6:00 PM CDT 08/20/2019 6:05 PM CDT João Rodriguez MD LAB - CHEMISTRY ORDE RABJONATHAN Performing Organization Address City/[facility]/ZIP Co de Phone Number [facility] [address] [phone] * CULTURE BLOOD (08/20/2019 5:47 PM CDT) Only the most recent of2 resultswithin the time period is included. Culture No growth day 5 ABRAHAM 08/25/2019 11:[address] [facility] Blood PERIPHERAL BLOOD / Unknown Venipuncture / Unknown 08/20/2019 5:47 PM CDT 08/20/2019 6:04 PM CDT João Rodriguez MD LAB - MICROBIOLOGY O RDERABLES [facility] [address] [phone] * HCG URINE QUAL POCT NOTIFICATION (08/20/2019 5:42 PM CDT) Comment Notification Label Only - See Separate Report 08/20/2019 7:00 PM CDT [facility] Urine URINE / Unknown 08/20/2019 5 :42 PM CDT 08/20/2019 5:57 PM CDT João Rodriguez MD LAB - URINALYSIS ORD ERABLES Performing Organization Address [facility]/State/ZIP Co de Phone Number [facility] [address] [phone] * [place] RESPIRATORY FIT TEST (01/21/2018 3:11 PM CDT) 01/21/2018 3:11 PM CDT Impressions Bharati Shah RN - 01/21/2018 3:11 PM CDT Patient fit with N95 particulate respirator size regular using the qualitative sweet. Patient demonstrated proper donning and doffing of the mask. Patient given a copy of the certificate of exam. Patient understands to bring certificate to their department. No further questions at this time. Hawa David MD [place] - PROFESSIONAL SE RVICES * DRUG SCREEN 10 URINE - POCT (AMB) [facility] (01/22/2017) THC negative REPLACED BY [facility] Opiates negative REPLACED BY [facility] Amphetamines negative REPLACED BY [facility] Cocaine Metabolite negative S [facility] Phencyclidine negative REPLACED BY [facility] Barbiturates Screen negative REPLACED BY [facility] Benzodiazepine negative REPLACED BY [facility] Oxycodone negative REPLACED BY [facility] Methamphetamine negative REPLACED BY [facility] Propoxyphene negaitve REPLACED BY [facility] Individual Analytes 8 Estriol negative REPLACED BY [facility] pH Urine 4 REPLACED BY [facility] Specific [place] 1.003 REPLACED BY [facility] Nitrite UA negative REPLACED BY [facility] Oxidant negative REPLACED BY [facility] Temperature 94 degrees C REPLACED BY [facility] 01/22/2017 Hawa David MD LAB - POINT OF CARE ORDERABLES Performing Organization Address [facility]/ZIP Co de Phone Number REPLACED BY [facility] * MRI BRAIN NON CONTRAST (10/03/2012 8:20 [...] of headache. David Santos MD MR ORDERABLES Care Teams Beauty Sales Advisor Relationship Specialty Start Date End Date Siria Dunham MD [address] [place] [phone] PCP - General 09/25/21
--- OUTSIDE RECORDS SUMMARY | 2024-06-06 00:20 | XMS_ITS | Encounter Summary ---
Author Organization [facility] Address [address] [place] [address] Care Team Providers Care Lang Interpreter Name Role Phone Unavailable Primary Care Provider Unavailabl e Reason for Visit * Reason Comments Cough Congestion Fever Breathing Problem Encounter Details Date Type Department Care Team (Late st Contact Info) Description 08/06/2019 4:20 PM CDT Office Visit [facility] AT [address] [address] Provider, [facility] Acute bronchitis, unspecified organism (Primary Dx) Social History Tobacco Use Types Packs/Day Years Used Date Smoking Tobacco: Never Smokeless Tobacco: Never Sex and Gender Information Value Date Recorded Sex Assigned at Female 06/17/2020 8:40 AM BIOSTATISTICS MANAGER Gender Identity Female 06/17/2020 8:40 AM BIOSTATISTICS MANAGER Sexual Orientation Choose not to disclose 2020 8:40 AM BIOSTATISTICS MANAGER documented as of this encounter Last Filed Vital Signs Vital Sign Reading Time Taken Comments Blood Pressure 110/70 08/06/2019 4:44 PM CDT Pulse 92 08/06/2019 4:44 PM CDT Temperature 36.6 ??C (97.9 ??F) 08/06/2019 4:44 PM CD T Respiratory Rate 24 08/06/2019 4:44 PM CDT Oxygen Saturation 99% 08/06/2019 4:44 PM CDT Inhaled Oxygen Concentration - - Weight 123.8 kg (273 lb) 08/06/2019 4:44 PM CDT Height 162.6 cm (5' 4 ) 08/06/2019 4:44 PM CDT Body Mass Index 46.86 08/06/2019 4:44 PM CDT documented in this encounter Patient Instructions * Patient Instructions* Mariola Bennett, SLURRY MIXER-DRYING UNIT FELTING MACHINE OPERATOR - 08/06/2019 5:02 PM CDT Images from the original note were not included. Patient Education Acute Bronchitis FILM PROJECTOR OPERATOR: Acute bronchitis is swelling and irritation in the air passages of your lungs. This irritation may cause you to cough or have other breathing problems. Acute bronchitis often starts because of another illness, such as a cold or the flu. The illness spreads from your nose and throat to your windpipeand airways. Bronchitis is often called a chest cold. Acute bronchitis lasts about 3 to 6 weeks andis usually not a serious illness. Your cough can last for several weeks. You may have any of the following symptoms: ?? A cough with sputum that may be clear, yellow, or green ?? Feeling more tired than usual, and body aches ?? A fever and chills ?? Wheezing when you breathe ?? A tight chest or pain when you breathe or cough Seek care immediately if: ?? You cough up blood. ?? Your lips or fingernails turn blue. ?? You feel like you are not getting enough air when you breathe. Contact your healthcare provider if: ?? You have a fever. ?? Your breathing problems do not go away or get worse. ?? Your cough does not get better within 4 weeks. ?? You have questions or concerns about your condition or care. Self-care: ?? Get more rest. Rest helps your body to heal. Slowly start to do more each day. Rest when you feel it is needed. ?? Avoid irritants in the air. Avoid chemicals, fumes, and dust. Wear a face mask if you must work around dust or fumes. Stay inside on days when air pollution levels are high. If you have allergies,stay inside when pollen counts are high. Do not use aerosol products, such as spray-on deodorant, bug spray, and hair spray. ?? Do not smoke or be around others who smoke. Nicotine and other chemicals in cigarettes and cigars damages the cilia that move mucus out of your lungs. Ask your healthcare provider for information if you currently smoke and need help to quit. E-cigarettes or smokeless tobacco still contain nicotine. Talk to your healthcare provider before you use these products. ?? Drink liquids as directed. Liquids help keep your air passages moist and help you cough up mucus. You may need to drink more liquids when you have acute bronchitis. Ask how much liquid to drink each day and which liquids are best for you. ?? Use a humidifier or vaporizer. Use a cool mist humidifier or a vaporizer to increase air moisture in your home. This may make it easier for you to breathe and help decrease your cough. Prevent acute bronchitis by doing the following: ?? Get the vaccinations you need. Ask your healthcare provider if you should get vaccinated againstthe flu or pneumonia. ?? Prevent the spread of germs. You can decrease your risk of acute bronchitis and other illnesses by doing the following: ? Wash your hands often with soap and water. Carry germ-killing hand lotion or gel with you. You can use the lotion or gel to clean your hands when soap and water are not available. ? Do not touch your eyes, nose, or mouth unless you have washed your hands first. ? Always cover your mouth when you cough to prevent the spread of germs. It is best to cough into atissue or your shirt sleeve instead of into your hand. Ask those around you cover their mouths whenthey cough. ? Try to avoid people who have a cold or the flu. If you are sick, stay away from others as much aspossible. Medicines: Your healthcare provider may give you any of the following: ?? Ibuprofen or acetaminophen are medicines that help lower your fever. They are available without a doctor's order. Ask your healthcare provider which medicine is right for you. Ask how much to takeand how often to take it. Follow directions. These medicines can cause stomach bleeding if not taken correctly. Ibuprofen can cause kidney damage. Do not take ibuprofen if you have kidney disease, anulcer, or allergies to aspirin. Acetaminophen can cause liver damage. Do not take more than 4,000 milligrams in 24 hours. ?? Decongestants help loosen mucus in your lungs and make it easier to cough up. This can help you breathe easier. ?? Cough suppressants decrease your urge to cough. If your cough produces mucus, do not take a cough suppressant unless your healthcare provider tells you to. Your healthcare provider may suggest that you take a cough suppressant at night so you can rest. ?? Inhalers may be given. Your healthcare provider may give you one or more inhalers to help you breathe easier and cough less. An inhaler gives your medicine to open your airways. Ask your healthcare provider to show you how to use your inhaler correctly. Follow up with your healthcare provider as directed: Write down questions you have so you will remember to ask them during your follow-up visits. ?? Copyright [employer] 2019 Information is for End User's use only and may not be sold, redistributed or otherwise used for commercial purposes. All illustrations and images included in CareNotes?? are the copyrighted property of [employer] or [employer] The above information is an elementary school teacher's aide only. It is not intended as medical advice for individual conditions or treatments. Talk to your doctor, nurse or pharmacist before following any medical regimen to see if it is safe and effective for you. documented in this encounter Progress Notes * Mariola Bennett APRN-CNP - 08/06/2019 4:52 PM CDT Subjective: Emily Guerrier is a 23 year old female who presents for evaluation: Chief Complaint Patient presents with ??? Cough ??? Congestion ??? Fever ??? Breathing Problem Primary Care Physician is David Santos MD. Symptoms include cough with thick sputum, generalized chest wall pain from coughing, SOB with coughing and exertion, nasal congestion/drainage Pt reports she had a 100 degree temp last night, none today. Reports some intermittent wheezing. Denies hx of asthma. Onset of symptoms was 1 week ago, stable, unchanged since that time. She is drinking moderate amounts of fluids. Evaluation to date: none. Treatment to date: Tylenol, Robitussin with minimal relief Pt has a hx of bronchitis last April and was given an Albuterol inhaler which she has been usingevery 4 hours with minimal improvement. Young cousin who lives with the patient has been sick with cold symptoms. Allergies Allergen Reactions ??? Macrobid [Nitrofurantoin] Itching Outpatient Medications Marked as Taking for the 08/06/19 encounter (Office Visit) with Provider, Mag [facility] [facility] Medication Sig ??? albuterol HFA (PROVENTIL;VENTOLIN;PROAIR) 108 (90 Base) MCG/ACT inhaler Inhale 2 puffs by mouthevery 4 hours as needed for Wheezing ??? busPIRone (BUSPAR) 10 MG tablet Take 10 mg by mouth 2 times daily ??? Other Reasons: control ??? predniSONE (DELTASONE) 20 MG tablet Take 2 tablets by mouth once daily for 3 days Past Medical History: Diagnosis Date ??? Anxiety ??? Bronchitis ??? Depression There is no problem list on file for this patient. Past Surgical History: Procedure Laterality Date ??? COLONOSCOPY ??? ORAL SURGERY Social History Socioeconomic History ??? Marital status: Single Spouse name: Not on file ??? Number of children: Not on file ??? Years of education: Not on file ??? Highest education level: Not on file Occupational History ??? Not on file Social Needs ??? Financial resource strain: Not on file ??? Food insecurity Worry: Not on file Inability: Not on file ??? Transportation needs Medical: Not on file Non-medical: Not on file Tobacco Use ??? Smoking status: Never Smoker ??? Smokeless tobacco: Never Used Substance and Sexual Activity ??? Alcohol use: Not on file ??? Drug use: Not on file ??? Sexual activity: Not on file Lifestyle ??? Physical activity Days per week: Not on file Minutes per session: Not on file ??? Stress: Not on file Relationships ??? Social connections Talks on phone: Not on file Gets together: Not on file Attends christian service: Not on file Active member of club or organization: Not on file Attends meetings of clubs or organizations: Not on file Relationship status: Not on file ??? Intimate partner violence Fear of current or ex partner: Not on file Emotionally abused: Not on file Physically abused: Not on file Forced sexual activity: Not on file Other Topics Concern ??? Not on file Social History Narrative ??? Not on file Medications reviewed. Review of Systems Pertinent items are noted in HPI Constitutional: Positive for feeling feverish Eyes: Negative Ears, nose, mouth, and throat: Positive for nasal congestion/drainage Respiratory: Positive for chronic cough, occasional sputum production, SOB with coughing and exertion, wheezing Cardiovascular: Negative Gastrointestinal: Negative Skin: Negative Musculoskeletal: Positive for generalized chest wall pain from coughing Neurological: Negative Objective: BP 110/70 (BP SITE: LEFT ARM, BP POSITION: SITTING, BP CUFF SIZE: 12) Pulse 92 Temp 97.9 ??F (36.6 ??C) (Oral) Resp 24 Ht 1.626 m (5' 4 ) Wt 123.8 kg (273 lb) SpO2 99% BMI 46.86 kg/m2 Skin: Physical Exam Exam General appearance: alert, cooperative, no distress, oriented to person, place, and time, wellappearing Head: normocephalic, without trauma Eyes: sclera and conjunctiva clear, EOMI and PERRLA, lids normal Ears: canals clear, tympanic membranes normal, hearing intact to voice Nose: nares open; no septal deviation is noted, mucosa erythematous and swollen, no frontal or maxillary tenderness Throat: no mucous membrane abnormalities, lips, mucosa, and tongue normal; teeth and gums normal, mild oropharyngeal erythema, post nasal drainage present, no tonsillar hypertrophy or exudates, uvulamidline Neck: range of motion is intact, no masses, no adenopathy Lungs: breath sounds normal and symmetric; no rhonchi, crackles or diminished breath sounds; mild expiratory wheezing noted to right and lower lower lobes Heart: regular rhythm, normal S1 and S2, without murmurs, gallops or rubs Neurologic: mental status normal; alert and oriented X 3 No results found for this or any previous visit (from the past 24 hour(s)). Assessment: . Encounter Diagnoses Name Primary? Acute bronchitis, unspecified organism Yes Plan: Discussed dx and tx of URIs Discussed the importance of avoiding unnecessary abx therapy. Suggested symptomatic OTC remedies. RTC prn. Take steroid with food. Use humidified air. Drink plenty of fluids. Honey is a natural cough suppressant. Follow-up for any worsening symptoms such as fever, shortness of breath, or worsening cough. Go to ED for any difficulty breathing. You have been diagnosed with a viral infection. -Viral infections do not improve with antibiotics. -Viral symptoms can linger from 7-14 days -The color of discharge does not always reflect the need for an antibiotic, even during a viral illness it is normal for drainage to change from yellow to green at times. -Please refer to the CDC Get Smart (cdc.gov/getsmart) campaign for more details. There are many OTC medications and supportive care measures you can try to treat your symptoms until your symptoms resolve. -Tylenol or Ibuprofen for aches, pains. Take per package directions -Antihistamines like Claritin or Benadryl as needed for drainage. Take per package directions -Delsym as needed for coughing. Follow package directions -Frequent cough drops and lozenges -Increase fluids, especially decaffeinated ones -Sleep with head of bed raised to promote drainage -Avoid spreading the virus by remaining at home and away from others until you are fever-free (temperature below 100) for 24 hours. Good handwashing and covering your mouth when coughing are also important. If you are not improving or worsening in the next 5-7 days you must RETURN to the clinic, go to your PCP, or Urgent Care/ER to be SEEN and reevaluated. No further prescriptions or refills will be given by phone without another evaluation. If you develop a high fever 103+, neck stiffness, trouble breathing, chest pain, or other life threatening symptoms GO TO THE ER IMMEDIATELY. Orders Placed This Encounter ??? albuterol HFA (PROVENTIL;VENTOLIN;PROAIR) 108 (90 Base) MCG/ACT inhaler Sig: Inhale 2 puffs by mouth every 4 hours as needed for Wheezing Dispense: 1 Inhaler Refill: 0 ??? predniSONE (DELTASONE) 20 MG tablet Sig: Take 2 tablets by mouth once daily for 3 days Dispense: 6 tablet Refill: 0 Continue to follow up with David Santos MD as directed. After Visit Summary reviewed with patient. The patient indicates understanding of these issues and agrees with the plan. Patient discharged to Home .FELISHA Silverman 08/06/2019 5:47 PM documented in this encounter Plan of Treatment Not on file documented as of this encounter Visit Diagnoses Diagnosis Acute bronchitis, unspecified organism- Primary documented in this encounter
--- OUTSIDE RECORDS SUMMARY | 2024-06-06 00:21 | XMS_ITS | Encounter Summary ---
Author Organization [facility] Address [address] [place], [place] [address] [place] [address] Care Team Providers Care Education Paraprofessional Name Role Phone Broderick Fernando TELEPHONE MESSENGER-C Primary Care Provider [phone] Reason for Visit * Imaging (Routine) - Closed Specialty Diagnoses / Procedures Referred By Cyn t Referred To Contact RADIOLOGY Diagnoses Abdominal pain Nausea Vomiting Procedures US ABD LIMITED US ABD COMPLETE Luana Guzman MD [address] [facility] [address] [place] [address] Phone: tel: fax: Referral ID Status Reason Start Date Expiration Date Visits Re quested Visits Authorized [id number] Closed 11/26/2018 12/26/2019 1 1 Encounter Details Date Type Department Care Team (Latest Contact Info) Description 12/02/2018 9:35 AM CDT - 12/02/2018 11:59 PM CDT Hospital Encounter [facility] [address] [place] [address] Luana Guzman MD [address] [facility] [address] [id number] [place] [address] Discharge Disposition: Home or Self Care (Routine Discharge) Social History Tobacco Use Types Packs/Day Years Used Date Smoking Tobacco: Never Assessed Comments Unknown Sex and Gender Information Value Date Recorded Sex Assigned at Not on file Legal Sex Female 7:19 PM CDT Gender Identity Not on file Sexual Orientation Not on file documented as of this encounter Medications at Time of Discharge citalopram 40 MG tablet 11/30/2018 medroxyPROGESTERon e 10 MG tablet TK 1 T PO QD WF FOR 7 DAYS PRN 4 07/30/2018 omeprazole 20 MG capsule Take 20 mg by mouth daily. 2 11/23/2018 ropinirole 0.5 MG tablet TK 1 T PO Q NIGHT HS 1 11/24/2018 documented as of this encounter Plan of Treatment Not on file documented as of this encounter Procedures Procedure Name Priority Date/Time Associated Diagnosis Comments US ABD LIMITED Routine 12/02/2018 10:11 AM CDT Abdominal pain Nausea Vomiting documented in this encounter Results * US ABD LIMITED (12/02/2018 10:11 AM CDT) Anatomical Region Laterality Modality Abdomen Ultrasound 12/02/2018 10:1 2 AM CDT Impressions 12/02/2018 10:32 AM CDT =====IMPRESSION:===== No sonographic abnormality identified. Narrative 12/02/2018 10:32 AM CDT EXAMINATION: Limited abdomen ultrasound: RUQ EXAM DATE/TIME: 12/02/2018 9:39 AM REASON FOR EXAM: ??ABDOMINAL PAIN ? Right upper quadrant pain. Nausea and vomiting. COMPARISON: No prior exam TECHNIQUE: An ultrasound examination of the RUQ was performed to assess grayscale appearance, color-flow characteristics and spectral doppler analysis. FINDINGS: Liver: Normal echogenicity. No masses. No intrahepatic duct dilatation. Liver measures 15cm. in length. Pancreas: Partially visualized with normal echogenicity. Portal vein: Spectral analysis reveals normal hepatopedal flow. Gallbladder: No wall thickening, cholecystic fluid, stones or sludge. Negative sonographic Myrick's sign.Gallbladder wall thickness measures 0.4cm. Common hepatic duct: Measure up to 0.3 mm. in diameter. ??No distinct intraluminal stone. Common bile duct ??Suboptimally visualized due to overlying bowel gas. Common bile duct measures 0.3cm in diameter Right kidney Measures: 11.5 cm X 4.0 cm X 4.7 cm. Normal echogenicity. Normal cortical perfusion. No masses, cysts, stones or hydronephrosis. Other findings: No ascites. Procedure Note Jh Lopez MD - 12/02/2018 EXAMINATION: Limited abdomen ultrasound: RUQ EXAM DATE/TIME: 12/02/2018 9:39 AM REASON FOR EXAM: ABDOMINAL PAIN Right upper quadrant pain. Nausea and vomiting. COMPARISON: No prior exam TECHNIQUE: An ultrasound examination of the RUQ was performed to assess grayscale appearance, color-flow characteristics and spectral doppler analysis. FINDINGS: Liver: Normal echogenicity. No masses. No intrahepatic duct dilatation. Liver measures 15cm. in length. Pancreas: Partially visualized with normal echogenicity. Portal vein: Spectral analysis reveals normal hepatopedal flow. Gallbladder: No wall thickening, cholecystic fluid, stones or sludge. Negative sonographic Myrick's sign.Gallbladder wall thickness measures 0.4cm. Common hepatic duct: Measure up to 0.3 mm. in diameter. No distinct intraluminal stone. Common bile duct Suboptimally visualized due to overlying bowel gas. Common bile duct measures 0.3cm in diameter Right kidney Measures: 11.5 cm X 4.0 cm X 4.7 cm. Normal echogenicity. Normal cortical perfusion. No masses, cysts, stones or hydronephrosis. Other findings: No ascites. =====IMPRESSION:===== No sonographic abnormality identified. Luana Guzman MD ULTRASOUND Final Result documented in this encounter Visit Diagnoses Diagnosis Abdominal pain Abdominal pain, unspecified site Nausea Nausea alone Vomiting Vomiting alone documented in this encounter Care Teams Education Paraprofessional Relationship Specialty Start Date End Date Broderick Fernando NP-C [address] [place] [address] PCP - General FAMILY PRACTICE 12/02/18 01/06/22 documented as of this encounter
--- OUTSIDE RECORDS SUMMARY | 2024-06-06 00:21 | XMS_ITS | Encounter Summary ---
Author Organization [facility] Address [address] [facility] [place], [place] [address] [place] [address] Care Team Providers Care Spark Tester Name Role Phone Reynaldo Gutierrez MD Primary Care Provider [phone] Encounter Details Date Type Department Care Team (Late st Contact Info) Description 05/10/2016 [facility] [address] [place] [address] Armando Richardson, APDUDLEY [address] [facility] [address] [place] [address] Social History Tobacco Use Types Packs/Day Years Used Date Smoking Tobacco: Never Assessed Comments Unknown Sex and Gender Information Value Date Recorded Sex Assigned at Not on file Legal Sex Female 7:19 PM CDT Gender Identity Not on file Sexual Orientation Not on file documented as of this encounter Plan of Treatment Not on file documented as of this encounter Visit Diagnoses Diagnosis Nasal congestion Other diseases of nasal cavity and sinuses documented in this encounter Care Teams Spark Tester Relationship Specialty Start Date End Date Reynaldo Gutierrez MD PCP - General 05/10/16 12/01/18 documented as of this encounter
--- OUTSIDE RECORDS SUMMARY | 2024-06-06 00:21 | XMS_ITS | Encounter Summary ---
Author Organization [facility] Address [address] [facility] [place], [place] [address] [place] [address] Care Team Providers Care Outside Upholsterer Name Role Phone Reynaldo Gutierrez MD Primary Care Provider [phone] Encounter Details Date Type Department Care Team (Late st Contact Info) Description 08/07/2008 Abstract [facility] [address] [place] [address] Wade Arreola MD Social History Tobacco Use Types Packs/Day Years [...] Diagnoses Not on filedocumented in this encounter Care Teams Outside Upholsterer Relationship Specialty Start Date End Date Reynaldo Gutierrez MD PCP - General 05/10/16 12/01/18 documented as of this encounter
--- OUTSIDE RECORDS SUMMARY | 2024-06-06 00:21 | XMS_ITS | Encounter Summary ---
Author Organization [facility] Address [address] [place] [address] [place] [address] Care Team Providers Care Tow Motor Driver Name Role Phone None, Provider Primary Care Provider Unavaila ble Reason for Visit * Reason Comments Arm Pain Left arm pain and ti ngling after falling down a couple stairs . Denies hitting head/LOC. PMS intact. Active/passive ROM tolerated. Encounter Details Date Type Department Care Team (Late st Contact Info) Description 01/07/2022 5:49 PM CDT - 01/07/2022 7:32 PM CDT Emergency [facility] Emergency Room [address] [place] [address] Samantha Montiel MD [address] [place] [id number] Arm Pain (Left arm pain and tingling after falling down a couple stairs . Denies hitting head/LOC. PMS intact. Active/passive ROM tolerated. ) Discharge Disposition: Home or Self Care (Routine Discharge) Social History Tobacco Use Types Packs/Day Years Used Date Smoking Tobacco: Never Smokeless Tobacco: Never Alcohol Use Standard Drinks/Week Comments No 0 (1 standard drink = 0.6 oz pur e alcohol) AUDIT-C Answer Date Recorded Frequency of Alcohol Consumption Never 01/05/2019 Average Number of Drinks Not on file 019 Frequency of Binge Drinking Not on file 12/25 Comments No Sex and Gender Information Value Date Recorded Sex Assigned at Not on file Legal Sex Female 7:19 PM CDT Gender Identity Not on file Sexual Orientation Not on file COVID-19 Exposure Response Date Recorded In the last 10 days, have yo u been in contact with someone who was confirmed or suspected to have Coronavirus/COVID-19? No / Unsure 01/07/2022 5:46 PM CDT documented as of this encounter Last Filed Vital Signs Vital Sign Reading Time Taken Comments Blood Pressure 132/87 01/07/2022 5:52 PM CDT Pulse 82 01/07/2022 5:52 PM CDT Temperature 36.9 ??C (98.4 ??F) 01/07/2022 5:52 PM CD T Respiratory Rate 18 01/07/2022 5:52 PM CDT Oxygen Saturation 99% 01/07/2022 5:52 PM CDT Inhaled Oxygen Concentration - - Weight 127 kg (280 lb) 01/07/2022 5:52 PM CDT Height 162.6 cm (5' 4 ) 01/07/2022 5:52 PM CDT Body Mass Index 48.06 01/07/2022 5:52 PM CDT documented in this encounter Discharge Instructions * Discharge Instructions* Samantha Montiel MD - 01/07/2022 7:13 PM CDT Wear sling for comfort. Ice, rest, and elevate. Can use an LELAND wrap for compression. Toradol and tylenol if needed for pain control. Please followup with your PCP. Return to ED if worse in any way * Attachments The following attachments cannot be sent through Care Everywhere. * Minor Contusion ED (Jordanian) documented in this encounter Medications at Time of Discharge busPIRone 10 MG tablet Take 10 mg by mouth 2 (two) times daily. citalopram 40 MG tablet 11/30/2018 medroxyPROGESTERo ne 10 MG tablet TK 1 T PO QD WF FOR 7 DAYS PRN 4 07/30/2018 omeprazole 20 MG capsule Take 20 mg by mouth daily. 2 11/23/2018 ropinirole 0.5 MG tablet TK 1 T PO Q NIGHT HS 1 11/24/2018 ketorolac (TORADOL) 10 MG tablet Take 1 tablet (10 mg total) by mouth 4 (four) times daily as needed for Pain. 20 tablet 01/07/2022 01/12/2022 documented as of this encounter ED Notes * Samantha Montiel MD - 01/07/2022 5:59 PM CDT Chief Complaint Chief Complaint Patient presents with ??? Arm Pain Left arm pain and tingling after falling down a couple stairs . Denies hitting head/LOC. PMS intact. Active/passive ROM tolerated. History of Present Illness 26-year-old female presenting with left elbow and forearm pain and some tingling sensation has beengoing on for the last 2 days after falling down a couple stairs and landing on the left arm. She denies falling on an outstretched arm. She states she fell on it it was underneath her. Denies striking her head or having loss of consciousness. She denies numbness but states it feels tingly. She is right-hand dominant. Has been using Tylenol and ibuprofen for pain control. States pain has been worsening. Was seen at another facility for the same issue earlier today. Medical History ALLERGIES: Allergies Allergen Reactions ??? Fluoxetine Hallucinations ??? Nitrofurantoin Itching MEDICATIONS: Prior to Admission medications Medication Sig Start Date End Date Taking? Authorizing Provider ketorolac (TORADOL) 10 MG tablet Take 1 tablet (10 mg total) by mouth 4 (four) times daily as needed for Pain. 01/07/22 01/12/22 Yes Samantha Montiel MD busPIRone 10 MG tablet Take 10 mg by mouth 2 (two) times daily. Doc Abstract citalopram 40 MG tablet 11/30/18 Doc Abstract medroxyPROGESTERone 10 MG tablet TK 1 T PO QD WF FOR 7 DAYS PRN 07/30/18 Doc Abstract omeprazole 20 MG capsule Take 20 mg by mouth daily. 11/23/18 Doc Abstract ropinirole 0.5 MG tablet TK 1 T PO Q NIGHT HS 11/24/18 Doc Abstract PAST MEDICAL HISTORY: Past Medical History: Diagnosis Date ??? Anxiety ??? Depression ??? GERD (gastroesophageal reflux disease) ??? PCOS (polycystic ovarian syndrome) PAST SURGICAL HISTORY: Past Surgical History: Procedure Laterality Date ??? NONE FAMILY HISTORY: Family History Problem Relation Name Age of Onset ??? Hypertension Father SOCIAL HISTORY: Social History Tobacco Use ??? Smoking status: Never Smoker ??? Smokeless tobacco: Never Used Substance Use Topics ??? Alcohol use: No ??? Drug use: No Review of Systems Review of Systems Constitutional: Negative for chills and fever. Respiratory: Negative for cough, chest tightness and shortness of breath. Cardiovascular: Negative for chest pain. Musculoskeletal: Positive for arthralgias and joint swelling. Negative for neck pain and neck stiffness. All other systems reviewed and are negative. Physical Exam Filed Vitals: 01/07/22 1752 BP: 132/87 Pulse: 82 Resp: 18 Temp: 98.4 ??F (36.9 ??C) TempSrc: Temporal SpO2: 99% Weight: 127 kg (280 lb) Height: 5' 4 (1.626 m) Physical Exam Vitals and nursing note reviewed. HENT: Head: Normocephalic and atraumatic. Right Ear: External ear normal. Left Ear: External ear normal. Eyes: Conjunctiva/sclera: Conjunctivae normal. Cardiovascular: Rate and Rhythm: Normal rate and regular rhythm. Pulmonary: Effort: Pulmonary effort is normal. Breath sounds: Normal breath sounds. Musculoskeletal: Cervical back: Normal range of motion and neck supple. No tenderness. Comments: Left arm exam: tenderness over the medial epicondyle of the left elbow with some lateral epicondylar tenderness although to a lesser degree. Tender diffusely over ulnar aspect of the forearm. No snuffbox tenderness. Able to wiggle fingers. No left shoulder or clavicular tenderness. No tenderness over the left humerus. No elbow bursal swelling. Mild pain with supination and pronation of the forearm. Pain with flexion and extension of the left elbow. Some mild pain with flexion and extension of the left wrist. Skin: Comments: Ecchymoses over ulnar aspect of left forearm Neurological: General: No focal deficit present. Mental Status: She is alert and oriented to person, place, and time. Diagnostic Studies / Procedures ELECTROCARDIOGRAMS: No results found for this visit on 01/07/22. LABORATORY STUDIES: No results found for this visit on 01/07/22. IMAGING STUDIES XR ELBOW LT M3V (Results Pending) XR FOREARM LT 2V (Results Pending) ED Course / Medical Decision Making MDM Number of Diagnoses or Management Options Diagnosis management comments: 26yo female presenting with left forearm and elbow pain after a fall2 days prior. NVI. Right hand dominant. ED Course as of 01/07/221913 Sun Jan 07, 2022 190 Xray of the left elbow and left forearm do not reveal acute evidence of fracture or dislocation. [GJ] 1910 Patient feeling improved after Toradol. She was reassured. Discussed sling, RICE and will giveprescription for Toradol for pain control. [GJ] ED Course User Index [GJ] Samantha Montiel MD Clinical Impression Contusion of left elbow and forearm (Primary) Disposition: Discharge Samantha Montiel MD 01/07/221913 * Pavan Valero RN - 01/07/2022 5:53 PM CDT Patient ambulatory to ED with Left arm pain and tingling after falling down a couple stairs . Denies hitting head/LOC. PMS intact. Active/passive ROM tolerated. Reports she was seen at today andhad negative XRs. Respirations are even/non-labored. Pt speaking in full/complete sentences. Pt A&Ox4. Skin PWD. Pt in no acute distress in triage. documented in this encounter Plan of Treatment Not on file documented as of this encounter Procedures Procedure Name Priority Date/Time Associated Diagnosis Comments XR FOREARM LT 2V STAT 01/07/2022 6:20 PM CDT XR ELBOW LT M3V STAT 01/07/2022 6:20 PM CDT documented in this encounter Results * XR FOREARM LT 2V (01/07/2022 6:20 PM CDT) Anatomical Region Laterality Modality Forearm Radiographic Sapna ging 01/08/2022 1:34 AM CDT Impressions 01/08/2022 1:34 AM CDT IMPRESSION: No fracture, dislocation, or bone destruction. Preliminary teleradiology report provided. Ordered By: SAMANTHA MONTIEL Interpreted By: Chris Iyer, 01/08/2022 1:34 AM Narrative 01/08/2022 1:34 AM CDT EXAMINATION: XR FOREARM LT 2V EXAM DATE/TIME: 01/07/2022 6:09 PM CLINICAL HISTORY: Fall with injury and pain. COMPARISON: 01/07/2022 left elbow x-rays. Procedure Note Chris Iyer MD - 01/08/2022 EXAMINATION: XR FOREARM LT 2V EXAM DATE/TIME: 01/07/2022 6:09 PM CLINICAL HISTORY: Fall with injury and pain. COMPARISON: 01/07/2022 left elbow x-rays. IMPRESSION: No fracture, dislocation, or bone destruction. Preliminary teleradiologyreport provided. Ordered By: SAMANTHA MONTIEL Interpreted By: Chris Iyer, 01/08/2022 1:34 AM Samantha Montiel MD GENERAL IMAGING Final Resu lt * XR ELBOW LT M3V (01/07/2022 6:20 PM CDT) Anatomical Region Laterality Modality Elbow Radiographic Sapna ging 01/07/2022 Impressions 01/08/2022 1:33 AM CDT IMPRESSION: No fracture, dislocation, or bone destruction identified. No apparent elbow joint effusion. Preliminary teleradiology report provided. Ordered By: SAMANTHA MONTIEL Interpreted By: Chris Iyer, 01/08/2022 1:31 AM Narrative 01/08/2022 1:33 AM CDT EXAMINATION: XR ELBOW LT M3V EXAM DATE/TIME: 01/07/2022 6:09 PM CLINICAL HISTORY: Fall with injury and pain. COMPARISON: 01/07/2022 left forearm x-rays. Procedure Note Chris Iyer MD - 01/08/2022 EXAMINATION: XR ELBOW LT M3V EXAM DATE/TIME: 01/07/2022 6:09 PM CLINICAL HISTORY: Fall with injury and pain. COMPARISON: 01/07/2022 left forearm x-rays. IMPRESSION: No fracture, dislocation, or bone destruction identified. No apparentelbow joint effusion. Preliminary teleradiology report provided. Ordered By: SAMANTHA MONTIEL Interpreted By: Chris Iyer, 01/08/2022 1:31 AM us Samantha Montiel MD GENERAL IMAGING Edited Res ult - Final documented in this encounter Visit Diagnoses Diagnosis Contusion of left elbow and forearm- Primary documented in this encounter Administered Medications Inactive Administered Medications - up to 3 most recent administrations Medication Order MAR Action Action Date Dose Rate Site ketorolac (TORADOL) injection 30 mg 30 mg, Intramuscular, Once, 1 dose, On 01/07/22 at 1800, For IV administration, give over 15 seconds. Given 01/07/2022 6:02 PM CDT 30 mg Right Deltoid documented in this encounter Active and Recently Administered Medications Times are shown in CDT. Scheduled Medication Order 01/05/2022 01/06/2022 01/07/2022 ketorolac (TORADOL) injection 30 mg (COMPLETED) 30 mg, Intramuscular, Once, 1 dose, On 01/07/22 at 1800, For IV administration, give over 15 seconds. 1802 (Given - Provid er: Pavan Valero RN) documented in this encounter Care Teams Tow Motor Driver Relationship Specialty Start Date End Date None, Provider, PCP - General 01/07/22 documented as of this encounter
--- OUTSIDE RECORDS SUMMARY | 2024-06-06 00:21 | XMS_ITS | Encounter Summary ---
Author Organization [facility] Address [address] [facility]. [place], [place] [address] [place] [address] Care Team Providers Care Supplier Development Manager Name Role Phone Reynaldo Gutierrez MD Primary Care Provider [phone] Encounter Details Date Type Department Care Team (Late st Contact Info) Description 02/02/1998 [place] [address] , Generic Conversion, Social History Tobacco Use Types Packs/Day Years [...] on filedocumented in this encounter Care Teams Supplier Development Manager Relationship Specialty Start Date End Date Reynaldo Gutierrez MD PCP - General 05/10/16 12/01/18 documented as of this encounter
--- OUTSIDE RECORDS SUMMARY | 2024-06-06 00:21 | XMS_ITS | Encounter Summary ---
Author Organization [facility] Address [address] [facility]. [place], [place] [address] [place] [address] Care Team Providers Care Assistant Brand Manager Name Role Phone Reynaldo Gutierrez MD Primary Care Provider [phone] Encounter Details Date Type Department Care Team (Late Contact Info) Description 03/30/2017 [place] [address] , Generic Conversion, Social History Tobacco Use [...] on filedocumented in this encounter Care Teams Assistant Brand Manager Relationship Specialty Start Date End Date Reynaldo Gutierrez MD PCP - General 05/10/16 12/01/18 documented as of this encounter
--- OUTSIDE RECORDS SUMMARY | 2024-06-06 00:21 | XMS_ITS | Encounter Summary ---
Author Organization [facility] Address [address] [facility] [place] [address] [place] [address] Care Team Providers Care Bundler Name Role Phone Reynaldo Gutierrez MD Primary Care Provider [phone] Encounter Details Date Type Department Care Team (Latest Contact Info) Description 07/29/2018 2:59 PM CAREER AGENT - 07/29/2018 11:[address] [facility] Hospital Encounter [facility] Diagnostic Imaging [address] [place], [place] [id number] Broderick Fernando, DUDLEY-C [address] [place] [address] Discharge Disposition: Home or Self Care (Routine [...] Name Priority Date/Time Associated Diagnosis Comments XR FOOT RT 3V Routine 07/29/2018 3:22 PM CAREER AGENT Flat foot, acquired, right XR FOOT LT 3V Routine 07/29/2018 3:22 PM CAREER AGENT Flat foot, acquired, left documented in this encounter Results * XR FOOT RT 3V (07/29/2018 3:22 PM CAREER AGENT) Anatomical Region Laterality Modality Foot Radiographic Sapna ging 07/30/2018 3:29 AM CAREER AGENT Impressions 07/30/2018 3:29 AM CAREER AGENT =====IMPRESSION:===== 1. No significant radiographic abnormality. Narrative 07/30/2018 3:29 AM CAREER AGENT Examination: Right foot 3 views Exam date/time: 07/29/2018 3:14 PM Reason For Exam: ??FLAT FOOT ? Comparison: None Technique: AP, oblique and lateral views of the right foot were obtained. Findings: No significant soft tissue abnormality. No evidence of acute fracture or dislocation. Joint spaces are well-maintained. Procedure Note Stalin Stahl MD - 07/30/2018 Examination: Right foot 3 views Exam date/time: 07/29/2018 3:14 PM Reason For Exam: FLAT FOOT Comparison: None Technique: AP, oblique and lateral views of the right foot wereobtained. Findings: No significant soft tissue abnormality. No evidence of acute fracture or dislocation. Joint spaces are well-maintained. =====IMPRESSION:===== 1. No significant radiographic abnormality. Broderick Abdullahi SOCIAL STUDIES TEACHER-C GENERAL IMAGING Final Result * XR FOOT LT 3V (07/29/2018 3:22 PM CAREER AGENT) Anatomical Region Laterality Modality Foot Radiographic Sapna ging 07/30/2018 3:28 AM CAREER AGENT Impressions 07/30/2018 3:28 AM CAREER AGENT =====IMPRESSION:===== 1. No significant radiographic abnormality. Narrative 07/30/2018 3:28 AM CAREER AGENT Examination: Left foot 3 views Exam date/time: 07/29/2018 3:14 PM Reason For Exam: ??FLAT FOOT ? Comparison: None Technique: AP, oblique and lateral views of the left foot were obtained. Findings: No significant soft tissue abnormality. No evidence of acute fracture or dislocation. Joint spaces are well-maintained. Procedure Note Stalin Stahl MD - 07/30/2018 Examination: Left foot 3 views Exam date/time: 07/29/2018 3:14 PM Reason For Exam: FLAT FOOT Comparison: None Technique: AP, oblique and lateral views of the left foot were obtained. Findings: No significant soft tissue abnormality. No evidence of acute fracture or dislocation. Joint spaces are well-maintained. =====IMPRESSION:===== 1. No significant radiographic abnormality. Broderick Fernando SOCIAL STUDIES TEACHER-C GENERAL IMAGING Final Result documented in this encounter Visit Diagnoses Diagnosis Flat foot, acquired, left Flat foot, acquired, right documented in this encounter Care Teams Bundler Relationship Specialty Start Date End Date Reynaldo Gutierrez MD PCP - General 05/10/16 12/01/18 documented as of this encounter
--- OUTSIDE RECORDS SUMMARY | 2024-06-06 00:21 | XMS_ITS | Clinical Summary ---
Author Organization [facility] Address [address] [facility] [place] [address] [place] [address] Care Team Providers Care Airport Planner Name Role Phone None, Provider MD Primary Care Provider Unavaila ble Allergies Active Allergy Reactions Criticality Noted Date Comments Fluoxetine Hallucinations Low 07/25/2017 Nitrofurantoin Itching Low 08/06/2019 Medications citalopram 40 MG tablet 11/30/2018 Active medroxyPROGESTER one 10 MG tablet TK 1 T PO QD WF FOR 7 DAYS PRN 4 07/30/2018 Active omeprazole 20 MG capsule Take 20 mg by mouth daily. 2 11/23/2018 Active ropinirole 0.5 MG tablet TK 1 T PO Q NIGHT HS 1 11/24/2018 Active busPIRone 10 MG tablet Take 10 mg by mouth 2 (two) times daily. Active Family History Medical History Relation Comments Hypertension Father Relation Status Comments Father Alive Mother Alive Social History Tobacco Use Types Packs/Day Years [...] on file Sexual Orientation Not on file Last Filed Vital Signs Vital Sign Reading [...] Mass Index 48.06 01/07/2022 5:52 PM CDT Plan of Treatment Health Maintenance Due Date Last Done Comments Annual Physical 2000 Hepatitis C 09/03/2015 DTaP, Tdap and Td Vaccines (7 - Td or Tdap) 05/12/2020 05/12/2010, 11/24/2002, 03/23/1999, Additional history exists COVID-19 Vaccine ( season) 2024 12/02/2021, 04/08/2021, 07/08/2020, Additional history exists Influenza Adult (#1) 2024 02/25/2020, 03/04/2019, 03/11/2018, Additional history exists Cervical Cancer Screening Pap Smear (Age 21 to 29) Every 3 Years 08/21/2024 08/21/2021 Cervical Cancer Screening 08/21/2024 Hepatitis B Vaccines Completed 07/25/1998, 1997, 1997 HPV Vaccines Completed 01/15/2012, 08/2009, 02/24/2009, Additional history exists Meningococcal Vaccine Completed 09/21/2014, 012 Pneumococcal Vaccine: Pediatrics (0 to 5 Years) and At-Risk Patients (6 to 64 Years) Aged Out No longer eligible based on patient's age to complete this topic RSV Immunizations Under 20 Months Aged Out No longer eligible based on patient's age to complete this topic Insurance [facility] Care Teams Airport Planner Relationship Specialty Start Date End Date None, Provider, PCP - General 01/07/22
--- OUTSIDE RECORDS SUMMARY | 2024-06-06 00:21 | XMS_ITS | Encounter Summary ---
Author Organization [facility] Address [address] [facility]. [place], [place] [address] [place] [address] Care Team Providers Care Wrapper Operator Name Role Phone Reynaldo Gutierrez MD Primary Care Provider [phone] Encounter Details Date Type Department Care Team (Late st Contact Info) Description [address] [facility] [place] [address] Hong Cardona MD Social History Tobacco Use Types Packs/Day [...] on filedocumented in this encounter Care Teams Wrapper Operator Relationship Specialty Start Date End Date Reynaldo Gutierrez MD PCP - General 05/10/16 12/01/18 documented as of this encounter
--- OUTSIDE RECORDS SUMMARY | 2024-06-06 00:21 | XMS_ITS | Encounter Summary ---
Author Organization [facility] Address [address] [facility]. [place], [place] [address] [place] [address] Care Team Providers Care Anodic Operator Name Role Phone Broderick Fernando ANATOMIC PATHOLOGY MANAGER-C Primary Care Provider [phone] Reason for Visit * Reason Comments Ear Problem Congestion Encounter Details Date Type Department Care Team (Latest Contact Info) Description 01/05/2019 1:13 PM CDT - 01/05/2019 1:49 PM CDT Hospital Encounter [facility] [address] [place], [place] [id number] Tere Evans, GREENHOUSE MANAGER- Ear Problem; Congestion Discharge Disposition: Home or Self Care (Routine [...] on file documented as of this encounter Last Filed Vital Signs Vital Sign Reading Time Taken Comments Blood Pressure 137/76 01/05/2019 1:17 PM CDT Pulse 74 01/05/2019 1:17 PM CDT Temperature 36.5 ??C (97.7 ??F) 01/05/2019 1:17 PM CD T Respiratory Rate 18 01/05/2019 1:17 PM CDT Oxygen Saturation 99% 01/05/2019 1:17 PM CDT Inhaled Oxygen Concentration - - Weight 127 kg (280 lb) 01/05/2019 1:17 PM CDT Height 162.6 cm (5' 4 ) 01/05/2019 1:17 PM CDT Body Mass Index 48.06 01/05/2019 1:17 PM CDT documented in this encounter Discharge Instructions * Discharge Instructions* LIYA Shepherd - 01/05/2019 1:42 PM CDT Infection of the middle ear. Take antibiotics as prescribed, follow up with primary care physician if symptoms have not resolved in 72 hours, otherwise if symptoms are improving follow up several days after completion of antibiotics. Keep ear clean and dry. May taking Tylenol or Ibuprofen for any pain or fever (if no allergy). You may take Tessalon perles if needed for cough. Use Ibuprofen as prescribed for pain. * Attachments The following attachments cannot be sent through Care Everywhere. * Ear Infections (Otitis Media) Discharge Instructions ([place]) * Cough Discharge Instructions, Adult ([place]) documented in this encounter Medications at Time [...] T PO Q NIGHT HS 1 11/24/2018 amoxicillin 875 MG tablet Take 1 tablet (875 mg total) by mouth 2 (two) times daily for 10 days. 20 tablet 01/05/2019 01/15/2019 benzonatate 200 MG capsule Take 1 capsule (200 mg total) by mouth 3 (three) times daily as needed for Cough. 20 capsule 01/05/2019 01/12/2019 ibuprofen 800 MG tablet Take 1 tablet (800 mg total) by mouth every 8 (eight) hours as needed. 40 tablet 01/05/2019 01/15/2019 documented as of this encounter ED Notes * Jacque Sosa RN - 01/05/2019 1:33 PM CDT AMB TO , C/O GENERAL CONGESTION X 4 DAYS, RT EAR DISCOMFORT AND CHANGE OF HEARING SINCE OFF PLANE2 DAYS AGO. PPS 0/10. TAKING TYLENOL COLD/FLU. * LIYA Shepherd - 01/05/2019 1:32 PM CDT History Chief Complaint Patient presents with ??? Ear Problem ??? Congestion Emily Guerrier is a 23-year-old female who presented to the with c/o generalized congestion for the past 4 days. Patient states however for the past 2 days she has had significant rightear pain. She reports that she flew home from [place] and has not been able to get her ear to pop . Patient denies fever. She states she has had a wet, productive cough. She reports she is been taking Tylenol Cold and flu without improvement. She denies wheezing or SOB. Past Medical History: Diagnosis Date ??? Anxiety ??? Depression ??? GERD (gastroesophageal reflux disease) ??? PCOS (polycystic ovarian syndrome) Prior to Admission medications Medication Sig Start Date End Date Taking? Authorizing Provider amoxicillin 875 MG tablet Take 1 tablet (875 mg total) by mouth 2 (two) times daily for 10 days. 01/05/19 01/15/19 Yes LIYA Shepherd benzonatate 200 MG capsule Take 1 capsule (200 mg total) by mouth 3 (three) times daily as needed for Cough. 01/05/19 01/12/19 Yes LIYA Shepherd busPIRone 10 MG tablet Take 10 mg by mouth 2 (two) times daily. Yes Doc Abstract ibuprofen 800 MG tablet Take 1 tablet (800 mg total) by mouth every 8 (eight) hours as needed. 01/05/19 01/15/19 Yes LIYA Shepherd citalopram 40 MG tablet 11/30/18 Doc Abstract medroxyPROGESTERone 10 MG tablet TK 1 T PO QD WF FOR 7 DAYS PRN 07/30/18 Doc Abstract omeprazole 20 MG capsule Take 20 mg by mouth daily. 11/23/18 Doc Abstract ropinirole 0.5 MG tablet TK 1 T PO Q NIGHT HS 11/24/18 Doc Abstract Past Surgical History: Procedure Laterality Date ??? NONE Family History Problem Relation Name Age of Onset ??? Hypertension Father Social History Tobacco Use ??? Smoking status: Never Smoker ??? Smokeless tobacco: Never Used Substance Use Topics ??? Alcohol use: No Frequency: Never ??? Drug use: No No LMP recorded. Patient has had an injection. Review of Systems Constitutional: Negative for fever. HENT: Positive for congestion, ear pain and rhinorrhea. Negative for ear discharge, sore throat andtrouble swallowing. Respiratory: Positive for cough. Negative for shortness of breath, wheezing and stridor. Cardiovascular: Negative for chest pain. Gastrointestinal: Negative for abdominal pain. Neurological: Negative for headaches. All other systems reviewed and are negative. Physical Exam Filed Vitals: 01/05/19 1317 BP: 137/76 Pulse: 74 Resp: 18 Temp: 97.7 ??F (36.5 ??C) TempSrc: Temporal SpO2: 99% Weight: 127 kg (280 lb) Height: 5' 4 (1.626 m) Physical Exam Constitutional: She is oriented to person, place, and time. She appears well- developed and well-nourished. HENT: Head: Normocephalic and atraumatic. Right Ear: External ear and ear canal normal. Tympanic membrane is erythematous and bulging. A middle ear effusion is present. Left Ear: Tympanic membrane, external ear and ear canal normal. Nose: Mucosal edema and rhinorrhea present. Right sinus exhibits no maxillary sinus tenderness and no frontal sinus tenderness. Left sinus exhibits no maxillary sinus tenderness and no frontal sinus tenderness. Mouth/Throat: Uvula is midline, oropharynx is clear and moist and mucous membranes are normal. No uvula swelling. No oropharyngeal exudate, posterior oropharyngeal edema or posterior oropharyngeal erythema. Eyes: Conjunctivae and EOM are normal. Pupils are equal, round, and reactive to light. Neck: Normal range of motion. Neck supple. Cardiovascular: Normal rate, regular rhythm, normal heart sounds and intact distal pulses. Pulmonary/Chest: Effort normal and breath sounds normal. No respiratory distress. She has no wheezes. She has no rales. She exhibits no tenderness. Wet, nonproductive cough noted during exam. Lungs clear to auscultation bilaterally. No increased respiratory effort noted. Abdominal: Soft. Bowel sounds are normal. There is no tenderness. Musculoskeletal: Normal range of motion. Lymphadenopathy: She has cervical adenopathy (Anterior cervical chain palpable bilaterally, soft, mobile, mildly tender with palpation.). Neurological: She is alert and oriented to person, place, and time. Skin: Skin is warm and dry. Psychiatric: She has a normal mood and affect. Her behavior is normal. Thought content normal. Vitals reviewed. ED Course Procedures Plan of care discussed with patient, patient agreeable. Results discussed. Red flags discussed reasons to return, patient verbalized understanding. Medications - No data to display Current Discharge Medication List START taking these medications Details amoxicillin 875 MG tablet Take 1 tablet (875 mg total) by mouth 2 (two) times daily for 10 days. Qty: 20 tablet, Refills: 0 Class: [facility] #[id number] [place] [address] [facility] & [facility] [address] (Ph #: [phone]) benzonatate 200 MG capsule Take 1 capsule (200 mg total) by mouth 3 (three) times daily as needed for Cough. Qty: 20 capsule, Refills: 0 Class: [facility] ST[facility] #[id number] [place] [address] [facility] [address] (Ph #: [phone]) ibuprofen 800 MG tablet Take 1 tablet (800 mg total) by mouth every 8 (eight) hours as needed. Qty: 40 tablet, Refills: 0 Class: [facility] STORE #[id number] [place] [address] [facility] [address] (Ph #: [phone]) MDM Number of Diagnoses or Management Options Cough: Otitis media, right: Patient Progress Patient progress: stable SNOMED CT(R) 1. Otitis media, right OTITIS MEDIA OF RIGHT EAR 2. Cough COUGH Disposition: Discharge Follow up instructions: RAFAEL Acosta [address] [phone] Call in 2 days If symptoms worsen and have your ear rechecked in 2 weeks LIYA SHEPHERD FNP 01/05/19 1345 Cosigned by Tyler Gracia MD at 01/05/2019 5:01 PM CDT documented in this encounter Plan of Treatment Not on file documented as of this encounter Visit Diagnoses Diagnosis Otitis media, right- Primary Unspecified otitis media Cough documented in this encounter Care Teams Anodic Operator Relationship Specialty Start Date End Date Broderick Fernando NP-C [address] [place] [phone] PCP - General FAMILY PRACTICE 12/02/18 01/06/22 documented as of this encounter
--- OUTSIDE RECORDS SUMMARY | 2024-06-06 00:21 | XMS_ITS | Encounter Summary ---
Author Organization [facility] Address [address] [facility]. [place], [place] [address] [place] [address] Care Team Providers Care Associate Media Director Name Role Phone None, Provider Primary Care Provider Unavaila ble Encounter Details Date Type Department Care Team (Latest Contact Info) Description 01/07/2022 Travel Social History Tobacco Use Types Packs/Day Years [...] PM CDT documented as of this encounter Plan of Treatment Not on file documented as of this encounter Visit Diagnoses Not on filedocumented in this encounter Care Teams Associate Media Director Relationship Specialty Start Date End Date None, Provider, PCP - General 01/07/22 documented as of this encounter
--- OUTSIDE RECORDS SUMMARY | 2024-06-06 00:23 | XMS_ITS | Clinical Summary ---
Author Organization [facility] Address [address] [place] [address] Phone Care Team Providers Care Training Officer Name Role Phone Unavailable Primary Care Provider Unavailabl e Allergies Active Allergy Reactions Criticality Noted Date Comments Fluoxetine Anxiety,Hallucinatio n,Other (See Comments) Low 07/25/2017 Nitrofurantoin Itching Low 08/06/2019 Medications Medication Sig Dispensed Refills Start Date End Date Status traZODone (DESYREL) 50 mg tablet TAKE 2 TABLETS BY MOUTH AT BEDTIME NEEDED 01/01/2022 Active sertraline (ZOLOFT) 100 mg tablet Take 200 mg by mouth daily. 12/28/2021 Active lamoTRIgine (LaMICtal) 100 mg tablet Take 100 mg by mouth daily. 12/28/2021 Active cetirizine (ZyrTEC) 10 mg tablet Take 10 mg by mouth daily. 01/13/2022 Active vit no.126-iron-fa 28 mg iron- 800 mcg Tablet Take 1 Tablet by mouth daily. 90 Tablet 3 01/24/2022 Active norethindrone, Contraceptive, 0.35 mg Tablet Take 1 Tablet by mouth daily. 84 Tablet 3 01/24/2022 Active Phentermine 37.5 mg CapsuleIndications: Morbid obesity with body mass index of 40.0-49.9 Take 1 Capsule by mouth daily. 30 Capsule 2 02/23/2022 Active exenatide microspheres (Bydureon BCise) 2 mg/0.85 mL Auto-Injector Inject 2 mg by subcutaneous injection every 7 days. 10.2 mL 3 06/25/2022 Active tranexamic acid (LYSTEDA) 650 mg Tablet tablet Take 2 Tablets (1,300 mg) by mouth 3 times daily. On heavy days of menses 30 Tablet 07/12/2022 Active metFORMIN (GLUCOPHAGE) 1,000 mg tablet Take 1 Tablet (1,000 mg) by mouth 2 times daily with meals. 180 Tablet 3 09/20/2022 Active daridorexant (Quviviq) 50 mg TabletIndications:S leep disturbance Take 1 Tablet by mouth nightly as needed for Other (See Comment). 30 Tablet 3 09/20/2022 Active Active Problems No known active problems Family History Medical History Relation Name Comments Cancer Father Tip Guerrier Sr. Squamous anderson l carcinoma in nasal sinuses Hypertension Mother Beth Guerrier Relation Name Status Comments Father Tip Guerrier Sr. Mother Beth Guerrier Social History Tobacco Use Types Packs/Day Years Used Date Smoking Tobacco: Never Alcohol Use Standard Drinks/Week Comments Yes 0 (1 standard drink = 0.6 oz pur e alcohol) social/occasional Sex and Gender Information Value Date Recorded Sex Assigned at Not on file Gender Identity Not on file Sexual Orientation Not on file Last Filed Vital Signs Vital Sign Reading Time Taken Comments Blood Pressure 120/66 07/12/2022 2:09 PM WAGE ANALYST Pulse - - Temperature - - Respiratory Rate - - Oxygen Saturation - - Inhaled Oxygen Concentration - - Weight 122.9 kg (271 lb) 07/12/2022 2:09 PM WAGE ANALYST Height 162.6 cm (5' 4 ) 07/12/2022 2:09 PM WAGE ANALYST Body Mass Index 46.52 07/12/2022 2:09 PM WAGE ANALYST Plan of Treatment Health Maintenance Due Date Last Done Comments CERVICAL CANCER SCREENING 2018 INFLUENZA VACCINE (#1) 2023 2, 02/25/2020, 03/04/2019, Additional history exists COVID-19 Vaccine ( season) 2024 07/08/2020, 06/17/2020 DTAP/TDAP/TD VACCINES (4 - Td or Tdap) 06/06/2032 06/06/2022, 05/12/2010, 11/24/2002, Additional history exists HPV VACCINES Completed 01/15/2012, 02/0 08/2009, 02/24/2009, Additional history exists HEPATITIS B VACCINES Completed 11/08/2016, 07/25/1998, 1997, Additional history exists PNEUMOCOCCAL VACCINE 0-64 YEARS Aged Out 06/06/2022 No longer eligible based on patient's age to complete this topic
--- OUTSIDE RECORDS SUMMARY | 2024-06-06 00:24 | XMS_ITS | Encounter Summary ---
Author Organization [facility] Address [address] [place]: Epic Prelude ADT [place] PE[place] [address] Care Team Providers Care Manager Of Internal Name Role Phone Unavailable Primary Care Provider Unavailabl e Encounter Details Date Type Department Care Team (Latest Contact Info) Description 07/12/2022 Travel Social History Tobacco Use Types Packs/Day [...] suspected to have Coronavirus/COVID-19? No / Unsure 07/12/2022 2:01 PM STRAINER MILL OPERATOR documented as of this encounter Plan of Treatment Not on file documented as of this encounter Visit Diagnoses Not on filedocumented in this encounter
--- OUTSIDE RECORDS SUMMARY | 2024-06-06 00:24 | XMS_ITS | Encounter Summary ---
Author Organization [facility] Address [address] [place] [address] Care Team Providers Care Lead Coater Name Role Phone Unavailable Primary Care Provider Unavailabl e Reason for Visit * Reason Comments Follow Up Encounter Details Date Type Department Care Team (Late st Contact Info) Description 06/19/2022 3:00 PM CONTRACTS SPECIALIST Video Visit [facility] [address] [address] Leny Garcia MD [address] [place] [address] Obesity (BMI 35.0-39.9 without comorbidity) (Primary Dx) Social History Tobacco Use Types Packs/Day Years Used Date Smoking Tobacco: Never Alcohol Use Standard Drinks/Week Comments Yes 0 (1 standard drink = 0.6 oz pur e alcohol) social/occasional Sex and Gender Information Value Date Recorded Sex Assigned at Not on file Gender Identity Not on file Sexual Orientation Not on file documented as of this encounter Progress Notes * Leny Garcia MD - 06/19/2022 4:17 PM CST 26-year-old here to follow-up regarding her weight. She strongly wants to conceive. She did phentermine for 6 months and has lost 17 pounds. She was that she had lost more weight. She is trying to conceive. She is over 275 pounds. After long discussion about treatment options and her desire to conceive we will plan for a GLP agonist. I will send in Ozempic. She will follow-up in 3 months. 20 minutes spent [id number] with patient. Over 50% of the time was spent counseling and/or coordinating care This encounter was completed via two-way synchronous audio and video communication. Patient expressed understanding that using technology outside of [facility] has higher potential tointroduce privacy risks: Yes Patient's identity confirmed yes Patient gave verbal consent to have these services billed to their insurance and expressed understanding that co-insurance and deductible may apply: yes RACTS SPECIALIST documented in this encounter Plan of Treatment Not on file documented as of this encounter Visit Diagnoses Diagnosis Obesity (BMI 35.0-39.9 without comorbidity)- Primary Obesity, unspecified documented in this encounter
--- OUTSIDE RECORDS SUMMARY | 2024-06-06 00:24 | XMS_ITS | Encounter Summary ---
Author Organization [facility] Address [address] [place] [address] Care Team Providers Care Material Control Associate Name Role Phone Unavailable Primary Care Provider Unavailabl e Reason for Visit * Reason Onset Date Comments Needs Appointment 07/10/2022 Encounter Details Date Type Department Care Team (Late st Contact Info) Description 07/10/2022 Telephone [facility] [address] [address] Leny Garcia MD [address] [place] [address] Needs Appointment Social History Tobacco Use Types Packs/Day Years Used Date Smoking Tobacco: Never Alcohol Use Standard Drinks/Week Comments Yes 0 (1 standard drink = 0.6 oz pur e alcohol) social/occasional Sex and Gender Information Value Date Recorded Sex Assigned at Not on file Gender Identity Not on file Sexual Orientation Not on file documented as of this encounter Miscellaneous Notes * Telephone Encounter - Fiordaliza Veloz NP - 07/10/2022 3:21 PM WETLANDS TECHNICIAN Pt states ovarian cyst was found in ER. She denies pain. Torsion precautions given. Advised patient to schedule pelvic ultrasound in 6 to 8 weeks in office to see if resolved. All questions answered patient verbalized understanding ANDS TECHNICIAN * Telephone Encounter - Fernando Braun - 07/10/2022 3:06 PM CST [facility]. She was seen for abdominal pain and they stated she had an ovarian cyst. She is out of office for next week. Sending message tosee when pt can schedule appointment. ANDS TECHNICIAN documented in this encounter Plan of Treatment Not on file documented as of this encounter Visit Diagnoses Not on filedocumented in this encounter
--- OUTSIDE RECORDS SUMMARY | 2024-06-06 00:24 | XMS_ITS | Encounter Summary ---
Author Organization [facility] Address [address] [place] [address] Care Team Providers Care Rn Utilization Management Um Name Role Phone Unavailable Primary Care Provider Unavailabl e Encounter Details Date Type Department Care Team (Late st Contact Info) Description 07/12/2023 External Device Data [place] ABSTRACTION Provider, Abstract NO ADDRESS ON FILE Social History Tobacco Use Types Packs/Day Years [...]
--- OUTSIDE RECORDS SUMMARY | 2024-06-06 00:24 | XMS_ITS | Encounter Summary ---
Author Organization [facility] Address [address] [place] [address] Care Team Providers Care Automotive Alignment Specialist Name Role Phone Unavailable Primary Care Provider Unavailabl e Reason for Visit * Reason Comments follow up Encounter Details Date Type Department Care Team ([facility] st Contact Info) Description 02/23/2022 3:00 PM CDT Video Visit [facility] [address] [address] Leny Garcia MD [address] [place] [address] Obesity (BMI 35.0-39.9 without comorbidity) (Primary Dx); Morbid obesity with body mass index of 40.0-49.9 Social History Tobacco Use Types Packs/Day Years [...] suspected to have Coronavirus/COVID-19? No / Unsure 01/24/2022 1:57 PM CDT documented as of this encounter Progress Notes * Fernando Braun - 03/12/2022 5:14 PM CDT I have made several unsuccessful attempts to reach patient to schedule an appointment. I have left several messages. She had not returned calls as of 03/12/22... GC * Fernando Braun - 03/09/2022 9:03 AM CDT Called and left a message * Fernando Braun - 03/08/2022 10:08 AM CDT Called and left a message * Leny Garcia MD - 02/23/2022 5:04 PM CDT 26-year-old here for a 4-week follow-up. When last seen she complained of weight gain and PCOS. Sheis getting in 1 year. Her weight was 287 1 month ago. She is been taking phentermine. She is now 275. She feels well. 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 She has no adverse side effects. She would like to continue phentermine. We will continue for another 2 months and follow-up then. 20 minutes spent [id number] with patient. Over 50% of the time [...] that co-insurance and deductible may apply: yes documented in this encounter Plan of Treatment Not on file documented as of this encounter Visit Diagnoses Diagnosis Obesity (BMI 35.0-39.9 without comorbidity)- Primary Obesity, unspecified Morbid obesity with body mass index of 40.0-49.9 documented in this encounter
--- OUTSIDE RECORDS SUMMARY | 2024-06-06 00:24 | XMS_ITS | Encounter Summary ---
Author Organization [facility] Address [address] [place] [address] Care Team Providers Care Master Deputy Sheriff Court Security Name Role Phone Unavailable Primary Care Provider Unavailabl e Encounter Details Date Type Department Care Team (Late st Contact Info) Description 09/17/2023 External Device Data [facility] ABSTRACTION Provider, Abstract [...]
--- OUTSIDE RECORDS SUMMARY | 2024-06-06 00:24 | XMS_ITS | Encounter Summary ---
Author Organization [facility] Address [address] [place] [address] Care Team Providers Care Hotel Or Motel Cleaning Supervisor Name Role Phone Unavailable Primary Care Provider Unavailabl e Encounter Details Date Type Department Care Team (Latest Contact Info) Description 09/20/2022 11:30 AM CDT Ancillary Procedure [facility] [address] [place] [address] Menorrhagia with irregular cycle; Hemorrhagic cyst of ovary; Morbid obesity with body mass index of [...] suspected to have Coronavirus/COVID-19? No / Unsure 09/20/2022 1:18 PM CDT documented as of this encounter Plan of Treatment Not on file documented as of this encounter Procedures Procedure Name Priority Date/Time Associated Diagnosis Comments US PELVIC TRANSVAGINAL Routine 09/20/2022 12:15 PM CDT Menorrhagia with irregular cycle Hemorrhagic cyst of ovary Morbid obesity with body mass index of 40.0-49.9 documented in this encounter Results * US PELVIC TRANSVAGINAL (09/20/2022 12:15 PM CDT) Anatomical Region Laterality Modality Pelvis Ultrasound 09/20/2022 11:4 8 AM CDT Narrative 10/04/2022 6:28 PM CDT [facility] PELVIC ULTRASOUND ----- Pat. Name: TERESA CERVANTES Study Date: 09/20/2022 11:48am Pat. NO: [id number] Referring ??MD: SIMEON GARCIA MD Site: [address] Urology Teacher: Lisandra Patel RDMS : 1995 Age: 27 ----- INDICATION ----- PCOS (Polycystic Ovarian Syndrome) Irregular Menstrual Cycle Ovarian Cyst, Left Side, Other CODING ----- Diagnoses ? N83.202: Unspecified ovarian cyst, left side ?N92.5: Other specified irregular menstruation ?E28.2: Polycystic ovarian syndrome Procedures ?[id number]: Ultrasound non OB transvaginal ASSESSMENT ----- Cycle: irregular cycle METHOD ----- Transvaginal ultrasound examination. View: Good view UTERUS ----- Long 61 mm x ap 28 mm x tr 36 mm. Vol 32.9 cm?? Position: midline , anteverted Malformations: none Myometrium: homogeneous Endometrial thickness, total 3.7 mm RIGHT OVARY ----- is normal size. Outline: Smooth contours. Size 12 mm x 13 mm x 6 mm. Vol 0.5 cm?? No cysts identified LEFT OVARY ----- is normal size. Outline: Smooth contours. Size 13 mm x 15 mm x 8 mm. Vol 0.8 cm?? No cysts identified No follicles identified SonoAVC Follicle(s): No follicles identified IMPRESSION ----- Uterus is midline , anteverted Myometrium appears homogeneous The endometrium measures 3.7 mm Right Ovary is normal size. [id number] Left Ovary is normal size. [id number] Procedure Note Simeon Garcia MD - 10/04/2022 [facility] PELVIC ULTRASOUND ----- Pat. Name:Cassidy CERVANTES Date:09/20/2022 11:48am Pat. NO: [id number] MD:SIMEON GARCIA MD [address]Lisandra Patel RDMS :1995Age:27 ----- INDICATION ----- PCOS (Polycystic Ovarian Syndrome) Irregular Menstrual Cycle Ovarian Cyst, Left Side, Other CODING ----- Diagnoses N83.202: Unspecified ovarian cyst, left side N92.5: Other specified irregular menstruation E28.2: Polycystic ovarian syndrome Procedures 97380: Ultrasound non OB transvaginal ASSESSMENT ----- Cycle: irregular cycle METHOD ----- Transvaginal ultrasound examination. View: Good view UTERUS ----- Long 61 mm x ap 28 mm x tr 36 mm. Vol 32.9 cm?? Position: midline , anteverted Malformations: none Myometrium: homogeneous Endometrial thickness, total 3.7 mm RIGHT OVARY ----- is normal size. Outline: Smooth contours. Size 12 mm x 13 mm x 6 mm. Vol 0.5 cm?? No cysts identified LEFT OVARY ----- is normal size. Outline: Smooth contours. Size 13 mm x 15 mm x 8 mm. Vol 0.8 cm?? No cysts identified No follicles identified SonoAVC Follicle(s): No follicles identified IMPRESSION ----- Uterus is midline , anteverted Myometrium appears homogeneous The endometrium measures 3.7 mm Right Ovary is normal size. [id number] Left Ovary is normal size. [id number] Simeon Garcia MD US ORDERABLES documented in this encounter Visit Diagnoses Diagnosis Menorrhagia with irregular cycle Excessive or frequent menstruation Hemorrhagic cyst of ovary Other and unspecified ovarian cyst Morbid obesity with body mass index of 40.0-49.9 documented in this encounter
--- OUTSIDE RECORDS SUMMARY | 2024-06-06 00:24 | XMS_ITS | Encounter Summary ---
Author Organization [facility] Address [address] Hartman: Epic Prelude ADT DEVIN PENA [address] Care Team Providers Care Motion Picture Equipment Machinist Name Role Phone Unavailable Primary Care Provider Unavailabl e Encounter Details Date Type Department Care Team (Latest Contact Info) Description 01/24/2022 Travel Social History Tobacco Use Types Packs/Day [...]
--- OUTSIDE RECORDS SUMMARY | 2024-06-06 00:24 | XMS_ITS | Encounter Summary ---
Author Organization [facility] Address [address] [place] [address] Care Team Providers Care Livestock Ranch Hand Name Role Phone Unavailable Primary Care Provider Unavailabl e Encounter Details Date Type Department Care Team (Late st Contact Info) Description 08/30/2023 External Device Data ST[facility] ABSTRACTION Provider, Abstract [...]
--- OUTSIDE RECORDS SUMMARY | 2024-06-06 00:24 | XMS_ITS | Encounter Summary ---
Author Organization [facility] Address [address] Hartman: Epic Prelude ADT [place]IN PE[place] [address] Care Team Providers Care Instrumentation Controls Engineer Name Role Phone Unavailable Primary Care Provider Unavailabl e Encounter Details Date Type Department Care Team (Latest Contact Info) Description 09/20/2022 Travel Social History Tobacco Use Types Packs/Day [...]
--- OUTSIDE RECORDS SUMMARY | 2024-06-06 00:24 | XMS_ITS | Encounter Summary ---
Author Organization [facility] Address [address] [place] [address] Care Team Providers Care Solar Designer Name Role Phone Unavailable Primary Care Provider Unavailabl e Reason for Visit * Reason Comments ER Follow Up Vaginal Bleeding Encounter Details Date Type Department Care Team (Late st Contact Info) Description 07/12/2022 2:00 PM SOIL FIELD TECHNICIAN Office Visit [facility] [address] [facility] [address] [place] [address] Fiordaliza Veloz, DUDLEY [address] [address] [place] [address] Menorrhagia with irregular cycle (Primary Dx); Hemorrhagic ovarian cyst Social History Tobacco Use Types Packs/Day Years [...] Coronavirus/COVID-19? No / Unsure 07/12/2022 2:01 PM SOIL FIELD TECHNICIAN documented as of this encounter Last Filed Vital Signs Vital Sign Reading Time Taken Comments Blood Pressure 120/66 07/12/2022 2:09 PM SOIL FIELD TECHNICIAN Pulse - - Temperature - - Respiratory Rate - - Oxygen Saturation - - Inhaled Oxygen Concentration - - Weight 122.9 kg (271 lb) 07/12/2022 2:09 PM SOIL FIELD TECHNICIAN Height 162.6 cm (5' 4 ) 07/12/2022 2:09 PM SOIL FIELD TECHNICIAN Body Mass Index 46.52 07/12/2022 2:09 PM SOIL FIELD TECHNICIAN documented in this encounter Progress Notes * Magdiel Fiordaliza Dos Santosy, GROCERY DEPARTMENT MANAGER - 07/12/2022 3:01 PM CST SUBJECTIVE: Emily Guerrier is a very pleasant 26 y.o. female who presents today with complaints of pelvic pain and heavy vaginal bleeding for the past 2 days. She has been to the ER on 07/07 and 07/11. US revealed left hemorrhagic cyst. She c/o very heavy vaginal bleeding, she is changing a saturated super tampon every few hours. Patient's last menstrual period was 03/11/2020. ROS: Feeling well. No dyspnea or chest pain on exertion. No abdominal pain, change in bowel habits.No excessive fatigue or significant changes in weight. No urinary tract symptoms. CUSTOMER ENGINEER ROS: she complains of pelvic pain and heavy vaginal bleeding. OBJECTIVE: The patient appears well, alert, in no distress. BP 120/66 Ht 5' 4 (1.626 m) Wt 122.9 kg (271 lb) LMP 03/11/2020 BMI 46.52 kg/m?? Resp: Lungs are clear to auscultation bilaterally. CV: regular rate and rhythm, no murmurs auscultated Abdomen: soft without tenderness, guarding, mass or organomegaly. ASSESSMENT: ICD-10-CM ICD-9-CM 1. Menorrhagia with irregular cycle N92.1 626.2 2. Hemorrhagic ovarian cyst N83.209 620.2 PLAN: Orders Placed This Encounter tranexamic acid (LYSTEDA) 650 mg Tablet tablet Discussed bleeding precautions. Advised to take Tylenol 1000 mg q 8hr and Ibuprofen 800 mg q 8hr, alternating. Discussed r/b of Lysteda, pt will trial. Advised to have US 6-8 to see if cyst has resolved. Answers submitted by the patient for this visit: Vaginal Bleeding (Submitted on 07/12/2022) How would you describe your bleeding?: heavier than menses How severe is your bleeding?: severe How would you describe the onset of your bleeding?: sudden How long have you had vaginal bleeding?: 2 Days Timing: constant Since your bleeding began, how has it changed?: improving Your vaginal bleeding is..: new How would you describe your menstrual cycle?: irregular Possible : No After intercourse: No After urination: No At rest: Yes During intercourse: No Foreign body: No Genital trauma: No Spontaneously: Yes What relieves your symptoms?: nothing What makes your symptoms worse?: nothing Which treatments have you tried for your symptoms but have not helped?: acetaminophen, ibuprofen, OTC medications, position abdominal pain: Yes back pain: Yes dizziness: Yes Painful intercourse: No dysuria: No fatigue: Yes fever: No nausea: Yes vaginal discharge: No Bleeding disorder: No History of ectopic or tubal : No History of endometriosis: No Gynecological surgery: No Multiple partners: No New sexual partner: No Ovarian cysts: Yes Ovarian torsion (twisting): No Pelvic inflammatory disease: No Prior miscarraige: No Sexually transmitted disease: No Sexually transmitted disease exposure: No Terminated : No Unprotected sex: Yes FIELD TECHNICIAN documented in this encounter Plan of Treatment Not on file documented as of this encounter Visit Diagnoses Diagnosis Menorrhagia with irregular cycle- Primary Excessive or frequent menstruation Hemorrhagic ovarian cyst Other and unspecified ovarian cyst documented in this encounter
--- OUTSIDE RECORDS SUMMARY | 2024-06-06 00:24 | XMS_ITS | Encounter Summary ---
Author Organization [facility] Address [address] [place] [address] Care Team Providers Care Banquet Coordinator Name Role Phone Unavailable Primary Care Provider [...]
--- OUTSIDE RECORDS SUMMARY | 2024-06-06 00:24 | XMS_ITS | Encounter Summary ---
Author Organization [facility] Address [address] [place] [address] Care Team Providers Care Cook Supervisor Name Role Phone Unavailable Primary Care Provider Unavailabl e Encounter Details Date Type Department Care Team (Late st Contact Info) Description 09/11/2023 External Device Data STL ABSTRACTION Provider, Abstract [...]
--- OUTSIDE RECORDS SUMMARY | 2024-06-06 00:24 | XMS_ITS | Encounter Summary ---
Author Organization [facility] Address [address] [place] [address] Care Team Providers Care Transfer Operator Name Role Phone Unavailable Primary Care Provider Unavailabl e Encounter Details Date Type Department Care Team (Late st Contact Info) Description 07/15/2023 External Device Data STL ABSTRACTION Provider, Abstract [...]
--- OUTSIDE RECORDS SUMMARY | 2024-06-06 00:24 | XMS_ITS | Encounter Summary ---
Author Organization [facility] Address [address] [place] [address] Care Team Providers Care Cut Out Operator Name Role Phone Unavailable Primary Care Provider Unavailabl e Reason for Visit * Reason Comments Well Woman Exam NEW PT. Discuss PCOS and fertility Encounter Details Date Type Department Care Team (Latest Contact Info) Description 01/24/2022 2:00 PM CDT Office Visit [facility] [address] [address] Leny Garcia MD [address] [place] [address] Encounter for gynecological examination with abnormal finding (Primary Dx); Morbid obesity with body mass index of 40.0-49.9; PCOS (polycystic ovarian syndrome) Social History Tobacco Use Types Packs/Day Years Used Date Smoking Tobacco: Never Tobacco Cessation:Counseling Given: Not Answered Alcohol Use Standard Drinks/Week Comments Yes 0 [...] Sign Reading Time Taken Comments Blood Pressure 128/82 01/24/2022 3:16 PM CDT Pulse - - Temperature - - Respiratory Rate - - Oxygen Saturation - - Inhaled Oxygen Concentration - - Weight 130.5 kg (287 lb 12.8 oz) 01/24/2022 3:16 PM CDT Height 162.6 cm (5' 4 ) 01/24/2022 3:16 PM CDT Body Mass Index 49.4 01/24/2022 3:16 PM CDT documented in this encounter Progress Notes * Leny Garcia MD - 01/24/2022 5:03 PM CDT HISTORY OF PRESENT ILLNESS Emily Guerrier, a 26 y.o. female presents with a Chief Complaint of Well Woman Exam (NEWPT. Discuss PCOS and fertility) Subjective 26-year-old new patient here to establish care and discuss her polycystic ovarian syndrome. She hasbeen taking norethindrone to treat it. She underwent an ultrasound about 6 months ago which confirmed PCOS. Notably she takes trazodone and Lamictal and Zoloft. She is interested in discussing how she can optimize a future . She is also interested in weight loss. She is sexually active without complaints. REVIEW OF SYSTEMS Review of Systems Constitutional: Negative for chills, fatigue, fever and unexpected weight change. HENT: Negative for congestion, ear pain, hearing loss, nosebleeds, rhinorrhea, sinus pressure, sorethroat and tinnitus. Eyes: Negative for photophobia, pain and visual disturbance. Respiratory: Negative for cough, shortness of breath, wheezing and stridor. Cardiovascular: Negative for chest pain and palpitations. Gastrointestinal: Negative for abdominal pain, blood in stool, constipation, diarrhea, nausea, rectal pain and vomiting. Endocrine: Negative for cold intolerance and heat intolerance. Genitourinary: Positive for menstrual problem. Negative for difficulty urinating, dyspareunia, dysuria, enuresis, frequency, genital sores, hematuria, pelvic pain, urgency, vaginal bleeding, vaginal discharge and vaginal pain. Musculoskeletal: Negative for arthralgias and back pain. Skin: Negative for rash and wound. Neurological: Negative for dizziness, seizures, syncope, weakness, light- headedness, numbness and headaches. Hematological: Negative for adenopathy. Does not bruise/bleed easily. Psychiatric/Behavioral: Negative for agitation, decreased concentration, sleep disturbance and suicidal ideas. The patient is not nervous/anxious. Objective PHYSICAL EXAM BP 128/82 Ht 5' 4 (1.626 m) Wt 130.5 kg (287 lb 12.8 oz) BMI 49.40 kg/m?? Physical Exam Vitals reviewed. Constitutional: Appearance: She is well-developed. HENT: Head: Normocephalic and atraumatic. Right Ear: External ear normal. Left Ear: External ear normal. Nose: Nose normal. Eyes: General: No scleral icterus. Conjunctiva/sclera: Conjunctivae normal. Neck: Thyroid: No thyromegaly. Trachea: No tracheal deviation. Cardiovascular: Rate and Rhythm: Normal rate and regular rhythm. Heart sounds: Normal heart sounds. No murmur heard. No friction rub. No gallop. Pulmonary: Effort: Pulmonary effort is normal. No respiratory distress. Breath sounds: Normal breath sounds. No stridor. No wheezing or rales. Chest: Chest wall: No deformity, swelling, tenderness or edema. Breasts: Right: No inverted nipple, mass, nipple discharge, skin change or tenderness. Left: No inverted nipple, mass, nipple discharge, skin change or tenderness. Abdominal: General: Bowel sounds are normal. There is no distension. Palpations: Abdomen is soft. There is no mass. Tenderness: There is no abdominal tenderness. There is no guarding or rebound. Hernia: No hernia is present. Musculoskeletal: General: No deformity. Normal range of motion. Cervical back: Normal range of motion and neck supple. Lymphadenopathy: Cervical: No cervical adenopathy. Skin: General: Skin is warm and dry. Coloration: Skin is not pale. Findings: No rash. Neurological: Mental Status: She is alert and oriented to person, place, and time. Cranial Nerves: No cranial nerve deficit. Coordination: Coordination normal. Psychiatric: Behavior: Behavior normal. Thought Content: Thought content normal. Judgment: Judgment normal. Procedures Assessment ASSESSMENT and PLAN: ICD-10-CM ICD-9-CM 1. Encounter for gynecological examination with abnormal finding Z01.411 V72.31 2. Morbid obesity with body mass index of 40.0-49.9 E66.01 278.01 Phentermine 37.5 mg Capsule 3. PCOS (polycystic ovarian syndrome) E28.2 256.4 Encouraged vitamins. Have deferred pelvic exam per patient request. She had a Pap smear in 2020 which was normal. Up-to-date on Gardasil. Long discussion about preconception and PCOS. We have decidedis best to focus on weight loss at this time. She will initiate vitamins and continue her norethindrone for now. We will focus on weight loss with phentermine. We discussed all treatment options. Cliffordll check her blood pressure daily and follow-up with me in 6 weeks. At that time we might continue phentermine and add metformin or consider this given her PCOS status. documented in this encounter Plan of Treatment Not on file documented as of this encounter Visit Diagnoses Diagnosis Encounter for gynecological examination with abnormal finding- Primary Routine gynecological examination Morbid obesity with body mass index of 40.0-49.9 PCOS (polycystic ovarian syndrome) Polycystic ovaries documented in this encounter
--- OUTSIDE RECORDS SUMMARY | 2024-06-06 00:24 | XMS_ITS | Encounter Summary ---
Author Organization [facility] Address [address] [place] [address] Care Team Providers Care Tool Marker Name Role Phone Unavailable Primary Care Provider Unavailabl e Encounter Details Date Type Department Care Team (Late st Contact Info) Description 05/28/2023 External Device Data STL ABSTRACTION Provider, Abstract [...]
--- OUTSIDE RECORDS SUMMARY | 2024-06-06 00:24 | XMS_ITS | Encounter Summary ---
Author Organization [facility] Address [address] [place] [address] Care Team Providers Care Claims Attorney Name Role Phone Unavailable Primary Care Provider Unavailabl e Reason for Visit * Reason Onset Date Comments medication denied 06/21/2022 Encounter Details Date Type Department Care Team (Late st Contact Info) Description 06/21/2022 Telephone [facility] [address] [address] Leny Garcia MD [address] [place] [address] medication denied Social History Tobacco Use Types Packs/Day Years Used Date Smoking Tobacco: Never Alcohol Use Standard Drinks/Week Comments Yes 0 (1 standard drink = 0.6 oz pur e alcohol) social/occasional Sex and Gender Information Value Date Recorded Sex Assigned at Not on file Gender Identity Not on file Sexual Orientation Not on file documented as of this encounter Miscellaneous Notes * Telephone Encounter - Quyen Fleming RN - 06/21/2022 4:02 PM CST Left message tof pt that per prior auth Ozempic was denied. I have options for her please return mycall K DESPATCHER documented in this encounter Plan of Treatment Not on file documented as of this encounter Visit Diagnoses Not on filedocumented in this encounter
--- OUTSIDE RECORDS SUMMARY | 2024-06-06 00:25 | XMS_ITS | Clinical Summary ---
Author Organization [facility] Address [address] [place] [address] Care Team Providers Care Supervisor Case Loading Name Role Phone No, Physician Unavailable Lorie Vanessa NP Primary Care Provider [phone] Allergies Active Allergy Reactions Criticality Noted Date Comments Adhesive Itching,Rash Medium 07/13/2022 Fluoxetine Mental status changes Low 07/25/2017 Influenza Virus Vaccines Itching,Rash,Redness Medium 1 Nitrofurantoin Itching Low 08/06/2019 Red Dye Hives Medium 05/27/2008 Medications clonazePAM (KlonoPIN) 0.5 mg tablet Take 1 tablet (0.5 mg total) by mouth daily as needed Active lamoTRIgine (LaMICtal) 100 mg tablet Take 1 tablet (100 mg total) by mouth nightly 12/29/19 22 Active sertraline (ZOLOFT) 100 mg tablet Take 2 tablets (200 mg total) by mouth nightly Active triamcinolone (NASACORT) 55 mcg nasal inhalerIndicati ons:Allergic Rhinitis,Chroni c Non-Allergic Rhinitis Administer 2 sprays into each nostril daily Can increase to twice daily if symptoms persist 16.9 mL 11 09/05/19 23 Active cholecalciferol 25 mcg (1,000 unit) tablet Take 1 tablet (1,000 Units total) by mouth daily Active cetirizine (ZyrTEC) 10 mg chewable tablet Take 4 tablets (40 mg total) by mouth daily Up to 40 daily PRN Active famotidine (PEPCID) 40 mg tabletIndicatio ns:Gastroesopha geal reflux disease without esophagitis TAKE 1 TABLET(40 MG) BY MOUTH EVERY NIGHT NEEDED FOR HEARTBURN 30 tablet 3 05/22/[address] (PROTONIX) 40 mg EC tabletIndicatio ns:Nausea,Right upper quadrant pain,Gastroesop hageal reflux disease without esophagitis Take 1 tablet (40 mg total) by mouth daily 30 tablet 3 07/23/19 24 Active magnesium oxide (MAG-OX) 400 mg (241.3 mg elemental magnesium) tablet TAKE 1 TABLET(400 MG) BY MOUTH DAILY 90 tablet 1 02/11/20 24 Active dicyclomine (BENTYL) 20 mg tablet Take 1 tablet (20 mg total) by mouth every 6 (six) hours for 7 days 28 tablet 03/05/20 24 Active Additional Information Patient not taking.Reported on 05/13/2024 ondansetron (ZOFRAN) 4 mg tablet Take 1 tablet (4 mg total) by mouth every 6 (six) hours as needed for nausea or vomiting 20 tablet 2 03/16/20 24 Active metoclopramide (REGLAN) 10 mg tablet Take 1 tablet (10 mg total) by mouth every 6 (six) hours 30 tablet 2 03/16/20 24 Active albuterol HFA (PROVENTIL HFA,VENTOLIN HFA,PROAIR HFA) 90 mcg/actuation inhaler Inhale 2 puffs every 4 (four) hours as needed for wheezing or shortness of breath 1 each 04/03/20 24 Active propranolol LA (INDERAL LA) 60 mg 24 hr capsule Take 1 capsule (60 mg total) by mouth daily 90 capsule 05/07/20 24 Active phentermine (ADIPEX-P) 37.5 mg tabletIndicatio ns:Weight Loss Management for Obese Patient (BMI >= 30) Take 1 tablet (37.5 mg total) by mouth daily before breakfast 90 tablet 1 05/13/20 24 025 Active predniSONE (DELTASONE) 10 mg tabletIndicatio ns:Rash and nonspecific skin eruption Take 4 tabs days 1&2, 3 tabs days 3 & 4, 2 tabs days 5 & 6, 1 tab days 7-10. 22 tablet 05/25/20 24 Active hydrOXYzine (ATARAX) 25 mg tabletIndicatio ns:Rash and nonspecific skin eruption Take 2 tablets (50 mg total) by mouth every 6 (six) hours as needed for itching 40 tablet 05/25/20 24 Active promethazine-DM (PROMETHAZINE-D M) 1.25-3 mg/mL syrup TAKE 5 ML BY MOUTH EVERY 4 TO 6 HOURS FOR 7 DAYS 04/08/20 24 024 Discontinu ed(Therapy completed) sulfamethoxazol e-trimethoprim (BACTRIM DS) 800-160 mg per tabletIndicatio ns:Rash and nonspecific skin eruption Take 1 tablet by mouth 2 (two) times a day for 10 days 20 tablet 05/25/20 24 025 Active Problems Problem Noted Date Diagnosed Date Increased frequency of headaches 04/13/2024 Assessment & Plan (04/13/2024 10:[address] MACHINE RUNNER): Recent onset/acute Referral made to neurology for further evaluation and management Fatigue 04/13/2024 Assessment & Plan (04/13/2024 10:[address] MACHINE RUNNER): Recent onset, likely multifactorial, currently, diagnosed with bronchitis states is improving Reviewed TSH level done in 09/2023 and most recent ER lab work from 03/16/24 Will monitor for stability Blurry vision 04/13/2024 Assessment & Plan (04/13/2024 10:[address] MACHINE RUNNER): Recent onset Encouraged to schedule an appointment with eye doctor and referral made to Neurology for further evaluation and management Low back pain 07/16/2023 Upper respiratory infection with cough and conge stion 05/31/2023 Assessment & Plan (05/31/2023 7:[address] MACHINE RUNNER): Instructed to increase clear liquids, rest, and vitamin C in diet. Advised to sleep with head elevated and use a cool mist vaporizer and Vicks VapoRub at bedtime for cough and congestion. Recommended follow-up if symptoms don't resolve, ER for new or worsening symptoms. Body aches 05/31/2023 Assessment & Plan (05/31/2023 7:[address] MACHINE RUNNER): COVID-19, influenza, and RSV test were negative, see plan of care for upper respiratory infection with cough and congestion. Cough 05/31/2023 Assessment & Plan (05/31/2023 7:[address] MACHINE RUNNER): COVID-19, influenza, and RSV test were negative, see plan of care for upper respiratory infection with cough and congestion. Chronic cough 03/08/2023 Closed fracture of fifth metatarsal bone of righ t foot 02/01/2023 Assessment & Plan (02/01/2023 9:37 AM CDT): New diagnosis, recent injury Reviewed ER reports and x-ray results, discussed findings with patient Advised can take ibuprofen in place of naproxen, but not to exceed 800 mg 3 times a day and to be sure to take with food, stopping if GI upset occurs Instructed can also alternate extra-strength Tylenol with ibuprofen as directed as needed Encouraged to continue to wear walking boot Advised to rest extremity when able Instructed to keep appointment with orthopedic surgeon and to go to ER if worsening or uncontrolled pain Sprain of right ankle 02/01/2023 Assessment & Plan (02/01/2023 9:36 AM CDT): New diagnosis, recent injury Reviewed ER reports and x-ray results, discussed findings with patient Advised can take ibuprofen in place of naproxen, but not to exceed 800 mg 3 times a day and to be sure to take with food, stopping if GI upset occurs Instructed can also alternate extra-strength Tylenol with ibuprofen as directed as needed Encouraged to continue to wear walking boot Advised to rest extremity when able Instructed to keep appointment with orthopedic surgeon and to go to ER if worsening or uncontrolled pain Hiatal hernia 01/09/2023 Overview (01/09/2023): 2 cm Class 3 severe obesity due t o excess calories without serious comorbidity with body mass index (BMI) of 50.0 to 59.9 in adult 12/12/2022 Assessment & Plan (04/13/2024 10:[address] MACHINE RUNNER): Chronic, improved Encouraged to: Make healthy food choices, limiting intake of concentrated sweets, cholesterol, and saturated fat Monitor daily caloric intake and portion sizes Exercise most days of the week for a goal of at least 150 minutes of exercise per week Assessment & Plan (12/12/2022 5:46 AM CDT): Chronic, worsened-encouraged to monitor daily caloric intake and portion sizes and to exercise most days of the week, for goal of at least 150 minutes of exercise per week. Ordered TSH level. Vitamin D deficiency 12/12/2022 Assessment & Plan (12/12/2022 5:44 AM CDT): Chronic, stable, controlled with supplement-continued on vitamin-D 1000 IU daily with a meal. Chronic left-sided low back pain without sciatic a 09/05/2022 Assessment & Plan (12/12/2022 5:36 AM CDT): Chronic, stable-encouraged to use OTC medication as directed as needed. Advised if worsening symptoms, can pursue imaging to further evaluate. Assessment & Plan (09/05/2022 7:50 AM CDT): Acute, stable since onset-ordered x-rays of lumbar spine. Advised can take Tylenol as recommended as needed for pain and can continue heat and/or ice. Informed can also use lcfa-jvl-jbyzvzo lidocaine patches OR topical analgesic creams as directed as needed, but NOT with heat or ice. Instructed that further recommendations will depend on outcome of xrays. Acute pain of right knee 09/05/2022 Assessment & Plan (12/12/2022 5:34 AM CDT): Acute, status post fall with abrasion, healing/improving-advised to monitor for resolution of pain and signs and symptoms of infection. Continue topical Bactroban as directed as needed. Assessment & Plan (09/05/2022 7:50 AM CDT): Acute, worsening-ordered x-rays of left knee. Advised can take Tylenol as recommended as needed for pain and can continue heat and/or ice. Informed can also use rjef-hwk-ekoarcs lidocaine patches OR topical analgesic creams as directed as needed, but NOT with heat or ice. Instructed that further recommendations will depend on outcome of xrays. Constipation 08/21/2022 Assessment & Plan (12/12/2022 5:37 AM CDT): Chronic, stable-encouraged diet high in fiber, 20-30 g per day. Advised to keep scheduled appointment for EGD/colonoscopy with automobile assembly supervisor, Dr. Thomas. Assessment & Plan (08/21/2022 8:42 AM CDT): Worsening constipation over the past few years. -high-fiber diet -MiraLax OTC daily p.r.n. Diarrhea 08/21/2022 Assessment & Plan (12/12/2022 5:37 AM CDT): Chronic, stable-encouraged diet high in fiber, 20-30 g per day. Advised to keep scheduled appointment for EGD/colonoscopy with automobile assembly supervisor, Dr. Thomas. Assessment & Plan (08/21/2022 8:41 AM CDT): Chronic diarrhea, alternates with constipation. -we will order stool studies further evaluation -schedule colonoscopy -The risks (risks of bleeding, infection, perforation requiring surgery, missed polyps/cancer, dental injury, aspiration pneumonia, anesthesia complications such as drug reaction and cardiopulmonary complications including rare chance of ), benefits, and alternatives of the planned procedure were explained to the patient who understands and consents to having procedure done. Gastroesophageal reflux disease without esophagi tis 08/21/2022 Assessment & Plan (12/12/2022 5:40 AM CDT): Chronic, stable, controlled with medication-continued on pantoprazole and famotidine. Assessment & Plan (08/21/2022 8:42 AM CDT): Chronic GERD for over 10 years, was on omeprazole in the past however this stopped working. PCP change to pantoprazole with some improvement. -continue pantoprazole 40 mg p.o. daily -we will start famotidine 40 mg p.o. q.h.s. -RECOMMENDATIONS given include: anti-reflux maneuvers, Avoid acidic foods like oranges and tomatoes., avoidance of spicy foods, avoid eating 3-4 hours before bed, elevation of the head of the bed, and weight loss Family history of CHF (congestive heart failure) 07/13/2022 Right upper quadrant pain 07/11/2022 Assessment & Plan (12/12/2022 5:42 AM CDT): Chronic, stable-continued on cromolyn, pantoprazole, and famotidine. Encouraged to keep appointment for EGD/colonoscopy and to follow-up with automobile assembly supervisor, Dr. Thomas, as recommended. Assessment & Plan (07/11/2022 5:[address] MACHINE RUNNER): Go to ER for further evaluation of your right upper abdominal pain. Amenorrhea 06/09/2022 Assessment & Plan (12/12/2022 5:36 AM CDT): Chronic-encouraged to keep appointment with infantryman, Dr. Lin, on 01/11/2023. Assessment & Plan (06/09/2022 2:[address] MACHINE RUNNER): Acute-ordered serum test. Nausea 04/15/2022 Assessment & Plan (12/12/2022 5:41 AM CDT): Chronic, stable-continued on Zofran as directed as needed, refills sent to pharmacy per patient request. Encouraged to keep scheduled appointment for EGD and to follow-up with automobile assembly supervisor, Dr. Thomas, as recommended. Assessment & Plan (08/21/2022 8:41 AM CDT): Chronic nausea and vomiting, not improved with PPI or Zofran. -we will order ultrasound as above -EGD as above Assessment & Plan (06/09/2022 2:[address] MACHINE RUNNER): Chronic, uncontrolled, despite starting treatment with Protonix 40 mg once daily-increased Protonix to 40 mg twice daily, new prescription sent to pharmacy along with a refill for Zofran per your request. A urine test has been ordered. Assessment & Plan (04/15/2022 11:[address] MACHINE RUNNER): Chronicity and stability unknown-prescribed pantoprazole once daily in morning 1/2 hour before mealtime. Advised to get fasting lab work done. Referred to gastroenterology, number provided to call and schedule appointment. Frequent infections 04/15/2022 Assessment & Plan (12/12/2022 5:39 AM CDT): Chronic, stable-continued on Augmentin, cetirizine, and Flonase per battery assembler, considering SCIT. Encouraged to follow-up with dietary clerk as recommended. Assessment & Plan (06/09/2022 2:[address] MACHINE RUNNER): Currently asymptomatic-reviewed strep pneumoniae antibody serotypes, immune to 12/23 types tested-recommended Pneumovax 23, given today. Advised if continues to get sick frequently after vaccination, can draw a post-vaccine titer to assess immune response to vaccination and/or refer to dietary clerk. Assessment & Plan (04/15/2022 11:[address] MACHINE RUNNER): Chronic, recurrent upper respiratory infections and gastrointestinal problems- ordered strep pneumoniae antibody serotype test. Tachycardia, unspecified 04/15/2022 Assessment & Plan (12/12/2022 5:42 AM CDT): Chronic, improved/controlled on medication-continued on propranolol per cardiology. Encouraged to follow-up with sales representative supervisor as recommended. Assessment & Plan (06/09/2022 2:[address] MACHINE RUNNER): Chronicity and stability unknown, heart rate 75 beats per minute and regular at today's visit-encouraged to keep scheduled appointment with sales representative supervisor. Assessment & Plan (04/15/2022 11:[address] MACHINE RUNNER): Chronicity and stability unknown, with increase in heart rate from 113 to 132 going from sitting to standing position-advised to get fasting lab work done. Referred to cardiology, number provided to call and schedule appointment. Dizziness 04/15/2022 Assessment & Plan (12/12/2022 5:38 AM CDT): Chronic, improved-will monitor for worsening symptoms, can pursue further testing if needed. Reviewed recent lab work. Encouraged to follow-up with sales representative supervisor as recommended. Assessment & Plan (07/11/2022 5:[address] MACHINE RUNNER): Go to ER for further evaluation of your dizziness/pre-syncopal episodes. Assessment & Plan (04/15/2022 11:[address] MACHINE RUNNER): Recent onset, occurs with standing, with orthostatic hypotension as evidenced by a 20 point drop in systolic pressure going from lying to standing-advised to get fasting lab work done. Referred to cardiology, number provided to call and schedule appointment. Orthostatic hypotension 04/15/2022 Assessment & Plan (12/12/2022 5:41 AM CDT): Chronic, stable-encouraged adequate hydration and to rise slowly from sitting to standing position. Assessment & Plan (04/15/2022 11:[address] MACHINE RUNNER): Chronicity and stability unknown, with 20 point drop in systolic from lying to standing-advised to get fasting lab work done. Referred to cardiology, number provided to call and schedule appointment. Hemorrhoids 04/15/2022 Overview (01/09/2023): Internal Assessment & Plan (12/12/2022 5:40 AM CDT): Chronic, currently asymptomatic-encouraged to keep scheduled appointment for colonoscopy and to follow-up with automobile assembly supervisor, Dr. Thomas, as recommended. GALEANO (dyspnea on exertion) 04/15/2022 Assessment & Plan (12/12/2022 5:39 AM CDT): Chronic, stable-will monitor for worsening symptoms and can pursue additional testing/refer to pulmonology if/when needed. Assessment & Plan (04/15/2022 11:[address] MACHINE RUNNER): Chronic, episodic, relieved with inhaler-refill for albuterol MDI sent to pharmacy per patient request. PCOS (polycystic ovarian syndrome) 07/02/2018 Assessment & Plan (12/12/2022 5:41 AM CDT): Chronic-encouraged to keep appointment with infantryman, Dr. Lin, on 01/11/2023. Resolved Problems Problem Noted Date Diagnosed Date Resolved Date Lipid screening 12/12/2022 05/17/2023 Annual physical exam 12/12/2022 023 Assessment & Plan (12/12/2022 5:45 AM CDT): Reviewed past and current medical history, surgical history, social history, family history, current medications, and allergies. The chart was updated to identify any changes in these areas. A ROS and PE were performed. Medication and labs were ordered. Discussed well woman exam/cervical cancer screening and monthly breast self-exams. Patient will follow-up annually for a physical exam, sooner if needed. Acute pain of left shoulder 09/05/2022 12/11/2022 Assessment & Plan (09/05/2022 7:49 AM CDT): Acute, worsening-ordered x-rays of left shoulder. Advised can take Tylenol as recommended as needed for pain and can continue heat and/or ice. Informed can also use ughr-wsz-knagvxl lidocaine patches OR topical analgesic creams as directed as needed, but NOT with heat or ice. Instructed that further recommendations will depend on outcome of xrays. Left elbow pain 09/05/2022 12/11/2022 Assessment & Plan (09/05/2022 7:49 AM CDT): Acute, worsening-ordered x-rays of left elbow. Advised can take Tylenol as recommended as needed for pain and can continue heat and/or ice. Informed can also use pvlg-qey-ujbyzxi lidocaine patches OR topical analgesic creams as directed as needed, but NOT with heat or ice. Instructed that further recommendations will depend on outcome of xrays. Acute hip pain, left 09/05/2022 023 Assessment & Plan (09/05/2022 7:50 AM CDT): Acute, worsening-ordered x-rays of left hip. Advised can take Tylenol as recommended as needed for pain and can continue heat and/or ice. Informed can also use myhc-jlp-hqdycty lidocaine patches OR topical analgesic creams as directed as needed, but NOT with heat or ice. Instructed that further recommendations will depend on outcome of xrays. Acute foot pain, left 09/05/20222022 Assessment & Plan (09/05/2022 7:50 AM CDT): Acute, worsening-ordered x-rays of left foot. Advised can take Tylenol as recommended as needed for pain and can continue heat and/or ice. Informed can also use rnzg-mfr-ftwffkr lidocaine patches OR topical analgesic creams as directed as needed, but NOT with heat or ice. Instructed that further recommendations will depend on outcome of xrays. Left lower quadrant pain 07/11/2022 Assessment & Plan (07/11/2022 5:[address] MACHINE RUNNER): Go to ER for further evaluation of your left lower abdominal pain. Need for vaccination 06/09/2022 023 Assessment & Plan (06/09/2022 2:[address] MACHINE RUNNER): Reviewed strep pneumoniae antibody serotypes, immune to 12/23 types tested-recommended Pneumovax 23, given today, also given Tdap, due. Advised if continues to get sick frequently after vaccination, can draw a post-vaccine titer to assess immune response to vaccination and/or refer to dietary clerk. Abrasion of neck 06/09/2022 12/11/2022 Assessment & Plan (06/09/2022 2:[address] MACHINE RUNNER): Acute-instructed to apply triple antibiotic ointment as directed as needed and avoid picking at area. Ingrown right big toenail 04/15/2022 Assessment & Plan (04/15/2022 11:[address] MACHINE RUNNER): Acute-prescribed cephalexin 500 mg BID x 1 week, Diflucan also sent to pharmacy per patient request. Upper abdominal pain 04/15/2022 Assessment & Plan (08/21/2022 8:41 AM CDT): Upper abdominal pain, intermittent, describes it as burning and cramping, radiates to lower abdomen, worse with meals, associated with nausea/vomiting, no alleviating factors. Has had multiple ER visits, labs are essentially unremarkable, CT scans were unremarkable with the exception of an ovarian cyst. Differential includes peptic ulcer disease versus GERD versus IBS. -avoid NSAIDs -continue PPI daily -we will order abdominal ultrasound -schedule EGD -The risks (risks of bleeding, infection, perforation requiring surgery, missed polyps/cancer, dental injury, aspiration pneumonia, anesthesia complications such as drug reaction and cardiopulmonary complications including rare chance of ), benefits, and alternatives of the planned procedure were explained to the patient who understands and consents to having procedure done. Assessment & Plan (06/09/2022 2:[address] MACHINE RUNNER): Chronicity unknown, resolved with Protonix, however epigastric area tender upon palpation-increase Protonix to 40 mg twice daily. Encouraged to keep scheduled appointment with automobile assembly supervisor. Assessment & Plan (04/15/2022 11:[address] MACHINE RUNNER): Chronicity and stability unknown-prescribed pantoprazole once daily in morning 1/2 hour before mealtime. Advised to get fasting lab work done. Referred to gastroenterology, number provided to call and schedule appointment. Morbid obesity with BMI of 45.0-49.9, adult 04/15/2022 12/12/2022 Assessment & Plan (12/12/2022 5:43 AM CDT): Preop cardiovascular exam 04/15/2022 Assessment & Plan (04/15/2022 11:[address] MACHINE RUNNER): Reviewed past and current medical history, surgical history, social history, family history, current medications, and allergies. A ROS and PE were performed. Medications and labs were ordered and referrals were made. Discussed well woman exam/cervical cancer screening. Patient will follow-up in 6 months for an annual physical exam or sooner if needed. Foreign body in ear 01/06/2014 04/15/20 22 Encounters Date Type Department Care Team Description 05/25/2024 3:[address] MACHINE RUNNER Office Visit [facility] at [address] [phone] Brittany Frances NP Rash and nonspecific skin eruption (Primary Dx) 05/13/2024 2:[address] MACHINE RUNNER Office Visit [facility] at [address] [place] [phone] Collin Valdez MD Class 3 severe obesity due to excess calories without serious comorbidity with body mass index (BMI) of 50.0 to 59.9 in adult (HCC) (Primary Dx) 04/14/2024 Orders Only [facility] [address] [place] [id number] Scanning, Provider 04/13/2024 10:[address] MACHINE RUNNER Telemedicine [facility] Care at [address] [place] [phone] Lorie Vanessa NP Increased frequency of headaches (Primary Dx); Fatigue, unspecified type; Encounter for hepatitis C screening test for low risk patient; Class 3 severe obesity due to excess calories without serious comorbidity with body mass index (BMI) of 50.0 to 59.9 in adult (HCC); Blurry vision 04/13/2024 Patient Self-Triage [facility] [address] [place] [phone] Mychart, Generic Provider 04/03/2024 Patient Self-Triage [facility] [address] [place] [phone] Mychart, Generic Provider 03/27/2024 Patient Self-Triage [facility] [address] [place] [phone] Mychart, Generic Provider 03/20/2024 Telephone [facility] at [address] [place] [phone] Lorie Vanessa NP 03/19/2024 Telephone [facility] at [place] [address] [place] [phone] Lorie Vanessa NP 03/16/2024 2:29 AM CDT - 03/16/2024 6:22 AM CDT Emergency [facility] Emergency Department [address] [place] [address] David Mishra Jr., MD Diarrhea, unspecified type (Primary Dx); Dehydration Discharge Disposition: Discharge to home or self care from Last 3 Months Immunizations Name Administration Dates Next Due DTaP 11/24/2002 DTaP, Unspecified 03/23/1999, 8,1997,10/28 HPV, Unspecified 01/15/2012, 0,02/24/2009,12/11 Hep A, Ped Unspecified 11/15/2001,05/17/2001 Hep B Vaccine 11/08/2016 Hep B, Unspecified 07/25/1998,1997, 998 HiB 11/22/1998, 8,1997,10/28 IPV 11/24/2002, 9,1997,10/28 Influenza, Quadrivalent, Kiki l Culture-based MDCK, Preservative Free, Antibiotic Free, Intramuscular 02/24/2022 Influenza, Quadrivalent, Spl it, Intramuscular 03/11/2018,03/18/2017 Influenza, Quadrivalent, Spl it, Preservative Free, Intramuscular 02/25/2020,03/04/2019,05/12/2015,02/18 Influenza, Split 05/12/2010,02/24/2009 Influenza, Trivalent, Preser vative Free, Intramuscular 03/26/2024 Influenza, Unspecified 03/01/2023,03/05/2009 MMR 11/08/2016,11/24/2002,11/22/1998 Meningococcal Conjugate (Menveo) 09/21/2014 Meningococcal MCV4, Unspecified 01/15/2012 Pneumococcal Polysaccharide PPV23 06/06/2022 Tdap 06/06/2022,05/12/2010 Varicella 12/11/2008,11/22/1998 Surgical History Surgery Date Site/Laterality Comments BAND HEMORRHOIDECTOMY COLONOSCOPY ESOPHAGOGASTRODUODENOSCOPY ENDOMETRIAL BIOPSY Medical History Medical History Date Comments Irritable bowel syndrome GERD (gastroesophageal reflux disease) Nausea Postural orthostatic tachyca rdia syndrome (POTS) Motion sickness Migraines Polycystic ovary syndrome Anxiety 2018 Depression 2018 Dysmenorrhea 2016 Seizures (HCC) History of febrile s eizures as an infant/toddler Infection Constantly sick Menstrual problem 2014 Asthma suspected, pending PFTs 2022 Brain concussion Family History Medical History Relation Name Comments Heart failure Brother 1 Alcohol abuse Brother 2 Tip Depression Brother 2 Tip Drug abuse Brother 2 Tip Early Brother 2 Tip Cancer Father tip sr. Depression Father tip sr. Obesity Father tip sr. Squamous cell carcinoma Father tip sr. Alzheimer's disease Maternal Grandmother kevon Diabetes Maternal Grandmother kevon Family history of diabetes mellitus - (Added by TW Conv) Mental illness Maternal Grandmother kevon Famil y history of mental disorder - (Added by TW Conv) Anemia Mother Beth COPD Mother Beth Depression Mother Beth Hypertension Mother Beth Breast cancer Mother's Sister Jacqueline Cancer Mother's Sister Jacqueline Alcohol abuse Paternal Grandfather Trae Heart disease Paternal Grandfather Trae Heart disease Paternal Grandmother Teresa Depression Sister 2 Luz Marina Drug abuse Sister 2 Luz Marina Colon cancer Neg Hx Ovarian cancer Neg Hx Uterine cancer Neg Hx Relation Name Status Comments Brother 1 Brother 2 Tip Father tip sr. Alive Maternal Grandmother kevon Mother Beth Alive Mother's Sister Jacqueline Paternal Grandfather Trae Paternal Grandmother Teresa Sister 1 Sister 2 Luz Marina Social History Tobacco Use Types Packs/Day Years Used Date Smoking Tobacco: Never Cigarettes Passive Smoke Exposure: Yes Smokeless Tobacco: Never Tobacco Cessation:Counseling Given: Not Answered Comments:Grew up with smokers - mom, sister, brother in law, brother, sister in law. Secondhand smoke AUDIT-C Answer Date Recorded Q1: How often do you have a drink containing alc ohol? Monthly or less 01/09/2023 Q2: How many drinks containi ng alcohol do you have on a typical day when you are drinking? 1 or 2 01/09/2023 Q3: How often do you have si x or more drinks on one occasion? Never 01/09/2023 PHQ-2 Answer Date Recorded PHQ-2 Total Score (If total score is 3 or more points, staff should administer the PHQ-9) 0 04/13/2024 Personal Safety Answer Date Recorded Have you ever been in or are you currently in a harmful physical or emotional relationship or is someone making you feel afraid or unsafe? Denies 03/16/2024 Comments No Sex and Gender Information Value Date Recorded Sex Assigned at Not on file Legal Sex Female 6:[address]NER Gender Identity Female 06/06/2022 7:[address] M[address] RUNNER Sexual Orientation Not on file Obstetrics History Para Term AB IAB SAB Ectopic Multiple Livin g Live Births 0 0 0 0 0 0 0 0 0 0 0 Last Filed Vital Signs Vital Sign Reading Time Taken Comments Blood Pressure 122/78 05/25/2024 3:[address] MACH[address] RUNNER Pulse 114 05/25/2024 3:[address] MACH[address] RUNNER Temperature 36.8 ??C (98.2 ??F) 05/25/2024 3:08 PM CS T Respiratory Rate 24 05/25/2024 3:[address] MACH[address] RUNNER Oxygen Saturation 99% 05/25/2024 3:[address] MACHINE RUNNER Inhaled Oxygen Concentration - - Weight 155.6 kg (343 lb) 05/25/2024 3:[address] MACH[address] RUNNER Height 162.6 cm (5' 4 ) 05/13/2024 1:[address] MACH[address] RUNNER Body Mass Index 58.88 05/13/2024 1:[address] MACHINE RUNNER Plan of Treatment Health Maintenance Due Date Last Done Comments Hepatitis C Screening 1997 Covid-19 Vaccine ( season) 2024 07/08/2020, 06/17/2020 Regular Well Visit/Exam 18-64 05/17/2024 05/17/2023, 12/11/2022 Depression Screening 04/13/2025 04/13/2024, 12/11/2022, 12/11/2022, Additional history exists Cervical Cancer Screening 05/17/2026 05/17/2023 DTaP/Tdap/Td Vaccine (8 - Td or Tdap) 06/06/2032 06/06/2022, 05/12/2010, 11/24/2002, Additional history exists Varicella Vaccines Completed 12/11/2008, 11/22/1998 HPV Vaccines Completed 01/15/2012, 02/0 08/2009, 02/24/2009, Additional history exists Pneumococcal vaccine <65 Aged Out 06/06/2022 No longer eligible based on patient's age to complete this topic Influenza Vaccine Completed 03/26/2024, , 02/24/2022, Additional history exists Procedures Procedure Name Priority Date/Time Associated Diagnosis Comments SCAN - RADIOLOGY/IMAGING 04/14/2024 9:[address] M[address] RUNNER LEUKOCYTES, FECAL Routine 03/16/2024 6:1 3 AM CDT STOOL CULTURE Routine 03/16/2024 6:[address] ABDOMEN PELVIS W CONTRAST ED 03/16/2024 2:39 AM CDT POCT HCG, URINE Routine 03/16/2024 1:46 AM CDT URINALYSIS, MICROSCOPIC ONLY STAT 03/16/2024 1:43 AM CDT URINALYSIS AND REFLEX TO MICROSCOPIC AND CULTURE STAT 03/16/2024 1:43 AM CDT EGFR STAT 03/16/2024 1:26 AM CDT DIFFERENTIAL AUTO STAT 03/16/2024 1:2 6 AM CDT LIPASE STAT 03/16/2024 1:26 AM CDT COMPREHENSIVE METABOLIC PANEL STAT 03/16/2024 1:26 AM CDT CBC WITH AUTO DIFFERENTIAL STAT 03/16/2024 1:26 AM CDT PAP WITH REFLEX TO HIGH RISK HPV Routine 05/17/2023 11:[address] MACH[address] RUNNER Well woman exam from Last 3 Months or Most Recently Relevant to Health Maintenance Results * SCAN - RADIOLOGY/IMAGING (04/14/2024 9:[address] MACHINE RUNNER) Anatomical Region Laterality Modality Other us Provider Scanning Final Result * Leukocytes, fecal (03/16/2024 6:13 AM CDT) WBC, fecal No leukocytes No leukocytes Comment: Interpretive Data Testing performed by microsopy. Current Interpretive Data was last revised on 2022 Testing performed by: [facility], [address] [place] [address]., [id number] Stool 03/16/2024 6:13 AM CDT 03/16/2024 1:26 PM CDT David Mishra Jr., MD LAB BODY FLUIDS AND STO OLS ORDERABLES Final Result FRAN [address] [facility] Department [place] [address] * Stool culture Stool Rectum (03/16/2024 6:13 AM CDT) Direct Specimen Exam Shiga Toxin Testing: Antigen detection assay for Shiga-toxin NEGATIVE for Shiga Toxin 1 and Shiga Toxin 2. Comment:Testing performed by : [facility], [address] [place] [address], [place]., [address] Report Final Report: No growth of enteric bacterial pathogens FRAN Comment:Testing performed by : [facility], [address] [place] [address]., [id number] Stool (Rectum) 03/16/2024 6: 13 AM CDT 03/16/2024 1:23 PM CDT Narrative FRAN HAYS - 03/20/2024 9:50 AM CDT Testing performed by [facility] Laboratory ([phone]). Routine stool cultures include procedures to detect Salmonella, Shigella, Edwardsiella, Aeromonas, Pleisiomonas, Campylobacter, Yersinia, E. coli O157, and Shiga-like toxins. ?? Vibrio is cultured only upon special request. ??If Vibrio is suspected, please call the laboratory at [phone]. Interpretive data was last updated October 01, 2016. us David Mishra Jr., MD LAB MICROBIOLOGY - GENE RAL ORDERABLES Final Result FRAN [address] [facility] Department [place] [address] * CT Abdomen Pelvis W Contrast (03/16/2024 2:39 AM CDT) Anatomical Region Laterality Modality Body N/A Computed Tomogra phy 03/16/2024 3:15 AM CDT Narrative 03/16/2024 3:23 AM CDT EXAM DESCRIPTION: ?? CT ABDOMEN PELVIS W CONTRAST REASON FOR STUDY: ?? Abdominal pain, acute, nonlocalized ?? Patient arrives with reports of n/v/d x2 weeks. ?? Ct on 03/05 showed a malabsorptive or secretory state. ??Has not followed up out patient yet. ? TECHNIQUE: CT scan of the abdomen and pelvis performed with intravenous and ?? without ??oral contrast using helical scanning technique with dynamic intravenous contrast injection. Reconstructed coronal and sagittal MPR images reviewed. All images stored on PACS. Automated exposure control was used as a dose optimization technique for this examination. CONTRAST TYPE/DOSE: ?? 100mL of IOVERSOL 350 MG IODINE/ML INTRAVENOUS SYRINGE ?? injected via ?? intravenous COMPARISON: ?? CT of the abdomen and pelvis March 05, 2024. REFERENCE: Per ACR white paper recommendations, unless otherwise specified no follow-up imaging is recommended for incidental renal and adrenal lesions per consensus recommendations based on imaging criteria. Further lab evaluation could be pursued based on clinical findings. FINDINGS: LOWER CHEST: ??The lung bases are clear. ? LIVER: ??The liver is normal in attenuation without focal lesion. GALLBLADDER: ??No stones identified. Normal wall. ??No evidence of pericholecystic fluid. BILE DUCTS: ??No intrahepatic or extrahepatic ductal dilatation. PANCREAS: ??Normal. SPLEEN: ??The spleen is enlarged, unchanged. ADRENALS: ??Normal. KIDNEYS/URINARY TRACT: ??No identified significant cystic or solid masses. No visualized stones. No hydronephrosis or hydroureter. ?? The bladder is collapsed. VASCULATURE: ??No acute abnormality seen. No abdominal aortic aneurysm. GI: ??The stomach appears normal. ?? There is no significant small bowel dilation or visible thickening. ?? There is fluid throughout the large bowel, unchanged. ?The appendix is normal. PERITONEUM/MESENTERY: ??No ascites or free air. ? LYMPH NODES: ??There are no enlarged lymph nodes seen by CT size criteria. REPRODUCTIVE: ??Uterus and adnexae are unremarkable. MUSCULOSKELETAL: ??No significant abnormality. OTHER: ??No other abnormality. IMPRESSION: Fluid throughout the large bowel, unchanged, consistent with diarrheal illness. Splenomegaly, unchanged. THIS IS AN ELECTRONICALLY VERIFIED FINAL REPORT 03/16/2024 3:23 AM - Electronically signed by ??Juany Salcido M.D. SN: SN D: ??03/16/2024 3:23 AM T: ??03/16/2024 3:23 AM Report ID: [id number] Reading Location: ??[id number] Procedure Note Juany Salcido MD - 03/16/2024 EXAM DESCRIPTION: CT ABDOMEN PELVIS W CONTRAST REASON FOR STUDY: Abdominal pain, acute, nonlocalized Patient arrives with reports of n/v/d x2 weeks. Ct on 03/05 showed a malabsorptive or secretory state. Has not followed up out patient yet. TECHNIQUE: CT scan of the abdomen and pelvis performed with intravenousand without oral contrast using helical scanning technique with dynamic intravenous contrast injection. Reconstructed coronal and sagittal MPRimages reviewed. All images stored on PACS. Automated exposure control was usedas a dose optimization technique for this examination. CONTRAST TYPE/DOSE: 100mL of IOVERSOL 350 MG IODINE/ML INTRAVENOUSSYRINGE injected via intravenous COMPARISON: CT of the abdomen and pelvis March 05, 2024. REFERENCE: Per ACR white paper recommendations, unless otherwise specifiedno follow-up imaging is recommended for incidental renal and adrenal lesionsper consensus recommendations based on imaging criteria. Further labevaluation could be pursued based on clinical findings. FINDINGS: LOWER CHEST: The lung bases are clear. LIVER: The liver is normal in attenuation without focal lesion. GALLBLADDER: No stones identified. Normal wall. No evidence of pericholecystic fluid. BILE DUCTS: No intrahepatic or extrahepatic ductal dilatation. PANCREAS: Normal. SPLEEN: The spleen is enlarged, unchanged. ADRENALS: Normal. KIDNEYS/URINARY TRACT: No identified significant cystic or solid masses.No visualized stones. No hydronephrosis or hydroureter. The bladder is collapsed. VASCULATURE: No acute abnormality seen. No abdominal aortic aneurysm. GI: The stomach appears normal. There is no significant small bowel dilation or visible thickening. There is fluid throughout the largebowel, unchanged. The appendix is normal. PERITONEUM/MESENTERY: No ascites or free air. LYMPH NODES: There are no enlarged lymph nodes seen by CT size criteria. REPRODUCTIVE: Uterus and adnexae are unremarkable. MUSCULOSKELETAL: No significant abnormality. OTHER: No other abnormality. IMPRESSION: Fluid throughout the large bowel, unchanged, consistent with diarrheal illness. Splenomegaly, unchanged. THIS IS AN ELECTRONICALLY VERIFIED FINAL REPORT 03/16/2024 3:23 AM - Electronically signed by Juany Salcido M.D. SN: Report ID: [id number] Reading Location: [place] [address] David Mishra Jr., MD IMG CT PROCEDURES Final Result * POCT hCG, urine (03/16/2024 1:46 AM CDT) Pathologist [facility] HCG, ur, POC Negative Negative Lot Number [id number] QC Backgroud Clear Acceptable QC Control Line Acceptable Urine 03/16/2024 1:46 AM CDT David Mishra Jr., MD POINT OF CARE TEST ORDE RABLES Final Result * (ABNORMAL) Urinalysis reflex to microscopic and culture Urine (03/16/2024 1:43 AM CDT) Color, ur Yellow Yellow Comment:Testing performed by : [facility], [address] [place] [address]., [address] Clarity, ur Clear Clear CERNER Comment:Testing performed by : [address] [address] Specific gravity, ur 1.012 1.003 - 1.030 FRAN Comment:Testing performed by : [address] [address] pH, urine 5.0 FRAN Comment: Interpretive Data ? Urine pH is affected by diet, medications, systemic acid-base disturbances, and renal tubular function. ??pH may affect urinary stone formation. ??For example, urine pH below 6.0 may help reduce the tendency for calcium phosphate stones and pH greater than 6.0 may reduce the tendency for uric acid stone formation. Source: [facility] Current Interpretive Data was last revised on 2017 Testing performed by: [address] [address] Protein, ur ql Negative Negative FRAN Comment:Testing performed by : [address] [address] Glucose, ur ql Negative Negative FRAN Comment:Testing performed by : [address] [address] Ketones, ur Negative Negative FRAN Comment:Testing performed by : [address] [address] Bilirubin, ur Negative Negative FRAN Comment:Testing performed by : [address] [address] Blood, ur Trace(A) Negative FRAN Comment:Testing performed by : [address] [address] Urobilinogen, ur <2.0 <2.0 mg/dL FRAN Comment:Testing performed by : [address] [address] Nitrite, ur Negative Negative FRAN Comment:Testing performed by : [address] [address] Leukocyte esterase, ur Negative Negative FRAN Comment:Testing performed by : [address] [address] UA reflex comment Reflex to microscopic UA will be performed. FRAN Comment:Testing performed by : [address] [address] Urine 03/16/2024 1:43 AM CDT 03/16/2024 1:54 AM CDT David Mishra Jr., MD LAB MICROBIOLOGY - GENE RAL ORDERABLES Final Result Performing Organization Address [facility] Co de Phone Number FRAN [address] [place] [address] * (ABNORMAL) Urinalysis, microscopic only (03/16/2024 1:43 AM CDT) WBC, ur 0-5 0 - 5 /HPF Comment:Testing performed by : [facility], [address] [place] [address]., [address] RBC, ur 0-2 0 - 2 /HPF FRAN Comment:Testing performed by : [address] [address] Epithelial cells, squamous, ur 1-5 0 - 5 /HPF FRAN Comment:Testing performed by : [address] [address] Bacteria, ur Trace(A) FRAN Comment:Testing performed by : [address] [address] Mucous, ur Present(A) FRAN Comment:Testing performed by : [address] [address] Culture Reflex Comment Reflex conditions for urine culture (WBC >10) not met. FRAN Comment:Testing performed by : [address] [address] Urine 03/16/2024 1:43 AM CDT 03/16/2024 1:54 AM CDT David Mishra Jr., MD LAB URINE ORDERABLES Fi nal Result Performing Organization Address [facility]/ZIP Co de Phone Number FRAN [facility] [place] [address] * eGFR (03/16/2024 1:26 AM CDT) eGFR >90 >=60 mL/min/1. 73 m2 Comment: Interpretive Data Reference Interval Normal ?>/= 90 mL/min/1.73m2 Mildly decreased* ? 60 - 89 mL/min/1.73m2 Mildly to moderately decreased ?45 - 59 mL/min/1.73m2 Moderately to severely decreased ??30 - 44 mL/min/1.73m2 Severely decreased ?15 - 29 mL/min/1.73m2 Kidney Failure ?< 15 ??mL/min/1.73m2 *Relative to young adult level Estimated glomerular filtration rate is determined by the 2020 CKD-EPI equation recommended by the National Kid[employer] (A Unifying Approach to GFR Estimation: Recommendations of the NKF-ASK Task Force on Reassessing the Inclusion of Race in Diagnosing Kidney Disease, JASN 2020). The CKD-EPI equation should not be used for patients with unstable renal function and has not been validated in children and those over 70. Current interpretive data was last reviewed 2021. Testing performed by: [facility], [address] [place] [address]., [address] Blood 03/16/2024 1:26 AM CDT 03/16/2024 1:44 AM CDT us David Mishra Jr., MD LAB BLOOD ORDERABLES Fi nal Result [id number] [address] [facility] Department [place] [address] * (ABNORMAL) Differential, auto (03/16/2024 1:26 AM CDT) Pathologist [facility] Neutrophil abs 9.0(H) 1.5 - 6.5 K/cumm Comment:Testing performed by : [address] [address] Imm gran abs 0.1 0.0 - 0.1 K/cumm FRAN Comment:Testing performed by : [address] [address] Lymphocyte abs 3.0 0.8 - 3.3 K/cumm [facility] by : [address] [address] Monocyte abs 0.9(H) 0.2 - 0.8 K/cumm [facility] Comment:Testing performed by : [address], [place]., [address] Eosinophil abs 0.3 0.0 - 0.5 K/cumm [facility] Comment:Testing performed by : [address] [address] Basophil abs 0.1 0.0 - 0.1 K/cumm [facility] Comment:Testing performed by : [address] [address] Neutrophil pct 67.1 % [facility] Comment: Interpretive Data Percent cell count reference ranges are not reported, since discordance with absolute values may lead to misinterpretation of CBC data. Current Interpretive Data was last revised on 2017. Testing performed by: [address] [address] Imm gran pct 1.0 % [facility] Comment: Interpretive Data Percent cell count reference ranges are not reported, since discordance with absolute values may lead to misinterpretation of CBC data. Current Interpretive Data was last revised on 2017. Testing performed by: [address] [address] Lymphocyte pct 22.2 % CERNER Comment: Interpretive Data Percent cell count reference ranges are not reported, since discordance with absolute values may lead to misinterpretation of CBC data. Current Interpretive Data was last revised on 2017. Testing performed by: [address] [address] Monocyte pct 6.8 % CERNER Comment: Interpretive Data Percent cell count reference ranges are not reported, since discordance with absolute values may lead to misinterpretation of CBC data. Current Interpretive Data was last revised on 2017. Testing performed by: [address] [address] Eosinophil pct 2.2 % FRAN Comment: Interpretive Data Percent cell count reference ranges are not reported, since discordance with absolute values may lead to misinterpretation of CBC data. Current Interpretive Data was last revised on 2017. Testing performed by: [address] [address] Basophil pct 0.7 % FRAN Comment: Interpretive Data Percent cell count reference ranges are not reported, since discordance with absolute values may lead to misinterpretation of CBC data. Current Interpretive Data was last revised on 2017. Testing performed by: [address] [address] Blood 03/16/2024 1:26 AM CDT 03/16/2024 1:44 AM CDT us David Mishra Jr., MD LAB BLOOD ORDERABLES Fi nal Result [facility] [address] [facility] Department of Laboratories [place], [place] [id number] * (ABNORMAL) CBC with auto differential (03/16/2024 1:26 AM CDT) [facility] WBC 13.3(H) 3.8 - 9.9 K/cumm Comment:Testing performed by : [address] [address] Hgb 13.5 11.9 - 15.5 g/dL FRAN Comment:Testing performed by : [address] [address] Hct 42.1 35.6 - 45.5 % FRAN Comment:Testing performed by : [address] [address] Plt 432(H) 150 - 400 K/cumm FRAN Comment:Testing performed by : [address] [address] MPV 9.0(L) 9.1 - 12.3 fL FRAN HAYS Comment:Testing performed by : [address], [address] RBC 5.15 3.90 - 5.20 M/cumm FRAN HAYS Comment:Testing performed by : [address] [address] MCV 81.7 81.3 - 96.4 fL FRAN HAYS Comment:Testing performed by : [address] [address] MCH 26.2(L) 27.1 - 33.3 pg FRAN HAYS Comment:Testing performed by : [address], [address] MCHC 32.1(L) 32.3 - 35.7 g/dL FRAN HAYS Comment:Testing performed by : [address], [address] RDW CV 13.5 11.1 - 14.9 % FRAN HAYS Comment:Testing performed by : [address], [address] RDW SD 39.8 35.7 - 48.1 fL FRAN Comment:Testing performed by : [address], [address] NRBC abs 0.00 0.00 - 0.01 K/cumm FRAN HAYS Comment:Testing performed by : [address], [address] Blood (Blood, Venous) 03/16/2024 1:26 AM CDT 03/16/2024 1:44 AM CDT us David Mishra Jr., MD LAB BLOOD ORDERABLES Fi nal Result FRAN [address] [facility] Department [place] [address] * Lipase (03/16/2024 1:26 AM CDT) [facility] Lipase 25 10 - 99 Units/L Comment:Testing performed by : [address] [address] Blood (Blood, Venous) 03/16/2024 1:26 AM CDT 03/16/2024 1:44 AM CDT David Mishra Jr., MD LAB BLOOD ORDERABLES Fi nal Result [facility] [address] [facility] Department [place] [address] * (ABNORMAL) Comprehensive metabolic panel (03/16/2024 1:26 AM CDT) Sodium 138 135 - 145 mmol/L Comment:Testing performed by : [address] [address] Potassium, pl 3.8 3.3 - 4.9 mmol/L FRAN Comment:Testing performed by : [address] [address] Chloride 103 97 - 110 mmol/L FRAN Comment:Testing performed by : [address] [address] CO2 21(L) 22 - 32 mmol/L FRAN Comment:Testing performed by : [address] [address] Anion gap 14 2 - 15 mmol/L FRAN Comment:Testing performed by : [address] [address] BUN 8 6 - 25 mg/dL FRAN Comment:Testing performed by : [address] [address] Creatinine 0.70 0.60 - 1.10 mg/dL FRAN Comment:Testing performed by : [address] [address] Glucose 94 70 - 199 mg/dL FRAN Comment: Interpretive Data Fasting glucose >/= 126 mg/dl is diagnostic for diabetes. ?? Fasting is defined as no caloric intake for at least 8 hours. Fasting glucose between 100 mg/dl to 125 mg/dl is diagnostic of prediabetes. In a patient with classic symptoms of hyperglycemia or hyperglycemic crisis, a random glucose >/= 200 mg/dl is diagnostic for diabetes. In the absence of unequivocal hyperglycemia, results should be confirmed by repeat testing. The classification and Diagnosis of Diabetes Diabetes Care 202; 46: S19-S40. Current interpretive data was last revised 2022. Testing performed by: [facility], [address] [place] [address]., [address] Calcium 9.4 8.5 - 10.3 mg/dL FRAN Comment:Testing performed by : [address] [address] Bilirubin, total 0.4 0.1 - 1.2 mg/dL FRAN Comment:Testing performed by : [address] [address] Protein, pl 7.9 6.5 - 8.5 g/dL FRAN Comment:Testing performed by : [address] [address] Albumin 4.4 3.5 - 5.0 g/dL [facility]:Testing performed by : [address] [address] Alk phos 111 40 - 130 Units/L [facility] Comment:Testing performed by : [address] [address] ALT 19 7 - 45 Units/L [facility] Comment:Testing performed by : [address] [address] AST 23 10 - 45 Units/L [facility] Comment:Testing performed by : [address] [address] Blood 03/16/2024 1:26 AM CDT 03/16/2024 1:44 AM CDT us David Mishra Jr., MD LAB BLOOD ORDERABLES Fi nal Result FRAN HAYS [address] [facility] Department of Laboratories [place], [place] [id number] * Pap with reflex to High Risk HPV and Genotyping (Cytology Component) (05/17/2023 11:[address] RUNNER) Endocervical (Pap test) 05/17/2023 11:[address] M[address] RUNNER 05/19/2023 11:[address] MACH[address] RUNNER [address]arr[address] PATH[address] [facility] - 05/23/2023 5:[address] M[address] RUNNER EPIC results best viewed via link to PDF [facility] [place] [address] Note to Patients: This report may contain a detailed description of human tissue sent by a health care provider to the laboratory for pathologic evaluation. The content of this report is essential for diagnosis and may provide important critical findings. This information may be unfamiliar to patients to review without a medical professional present. It is advised that the patient review this report in the presence of a health care provider who can answer questions and explain the details. CYTOPATHOLOGY REPORT FINAL Patient Name: ??TERESA CERVANTES Gender: ??F : ??1995 (Age: 27) Address: ??[address] [place] [address] ??[address] Hospital #: ??[id number] Service: ??DEFAULT Location: ?? Patient Type: [facility] Taken: ??05/17/2023 Received: ??05/19/2023 Accessioned: ??05/20/2023 Reported: ??05/23/2023 Physician(s): ??Jacque Lin M.D. ?? FINAL INTERPRETATION SOURCE OF SPECIMEN ? Liquid based Thin Prep pap with Reflex HPV: STATEMENT OF ADEQUACY ?- Satisfactory for evaluation ?- Endocervical cells/transformation zone sample absent ? GENERAL CATEGORIZATION: ?- Negative for squamous intraepithelial lesion or malignancy ? ml/05/23/2023 17:10 Kandis Wilson MS, CT (ASCP) Report Electronically Reviewed and Signed Out By Kandis Wilson MS, CT (ASCP) 05/23/2023 17:10:38 Cervicovaginal Cytology (Pap Test) Disclaimer: The Pap test is a screening test used to detect cervical cancer and its precursors; it is not a diagnostic procedure. False negative and false positive results do occur. Pap test results should be interpreted in the context of pertinent clinical information and biopsy results as indicated. [facility] Clinical Laboratory Improvement Amendments (CLIA) mandate that cytologic and histologic results be correlated for laboratory supplier quality engineering manager & improvement standards. ??FOR ALL HIGH-GRADE CASES we request submission of follow-up histological material and/or reports that have not been previously provided so that we may fulfill said required standards. ?? Gross Description A. ??Liquid based Thin Prep pap with Reflex HPV: ??Cervical/vaginal - Screening ThinPrep Clinical Diagnosis and History Last Menstrual Period: unknown The patient is a 27 year old female with routine exam. Report Images and scanned documents, if included only viewable in PDF version The performance characteristics of some immunohistochemical stains, in-situ hybridization and fluorescence in-situ hybridization tests and immunophenotyping by flow cytometry cited in this report (if any) were determined by the Surgical Pathology Department at [facility] as part of an ongoing quality auditor program and in compliance with federally mandated regulations drawn from the Clinical Laboratory Improvement Act of 1988 (CLIA '88). ??Some of these tests rely on the use of analyte specific reagents and are subject to specific labeling requirements by the US Food and Drug Administration. ??Such diagnostic tests may only be performed in a facility that is certified by the Department of Health and Human Services as a high complexity laboratory under CLIA '88. ??The FDA has determined that such clearance or approval is not necessary. ??This test is used for clinical purposes. ??It should not be regarded as investigational or for research. ??Nevertheless, federal rules concerning the medical use of analyte specific reagents require that the following disclaimer be attached to the report: This test was developed and its performance characteristics determined by the Surgical Pathology Department of [facility]. ??It has not been cleared or approved by the U. S. Food and Drug Administration. Sita Lin MD LAB CYTOLOGY ORDERABLES Magda moreau Result PATHOLOGY [facility] from Last 3 Months or Most Recently Relevant to Health Maintenance Insurance [employer] [facility] [facility] [address] [place] [address] [facility] Care Teams Supervisor Case Loading Relationship Specialty Start Date End Date Lorie Vanessa NP [address] [place] [id number] PCP - General Family Practice 05/29/22 No, Physician 06/08/21
--- OUTSIDE RECORDS SUMMARY | 2024-06-06 00:25 | XMS_ITS | Encounter Summary ---
Author Organization [facility] Healthcare Address [address] [place] [address] Care Team Providers Care Lining Folder Name Role Phone No, Physician Unavailable Lorie Vanessa NP Primary Care Provider [phone] Encounter Details Date Type Department Care Team (Late st Contact Info) Description 03/20/2024 Telephone [facility] [place] [address] [place] [address] [address] [place] [address] Lorie Vanessa NP [facility] [address] Social History Tobacco Use Types Packs/Day Years Used Date Smoking Tobacco: Never Cigarettes Passive Smoke Exposure: Yes Smokeless Tobacco: Never Comments:Grew up with smoker s - mom, sister, brother in law, brother, [...] more points, staff should administer the PHQ-9) 1 12/11/2022 Personal Safety Answer Date Recorded Have you ever been in or are you currently in a harmful physical or emotional relationship or is someone making you feel afraid or unsafe? 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 SPECIALIST Gender Identity Female 06/06/2022 7:40 AM ORIENTATION & MOBILITY SPECIALIST Sexual Orientation Not on file documented as of this encounter Miscellaneous Notes * Telephone Encounter - Lorie Vanessa NP - 03/20/2024 8:51 AM CDT Recommended patient schedule appointment to address concerns not on problem list documented in this encounter Plan of Treatment Not on file documented as of this encounter Visit Diagnoses Not on filedocumented in this encounter Care Teams Lining Folder Relationship Specialty Start Date End Date Lorie Vanessa NP [address] [place] [id number] PCP - General Family Practice 05/29/22 No, Physician 06/08/21 documented as of this encounter
--- OUTSIDE RECORDS SUMMARY | 2024-06-06 00:25 | XMS_ITS | Encounter Summary ---
Author Organization [facility] Healthcare Address [address] [place] [address] Care Team Providers Care Head Sawyer Automatic Name Role Phone No, Physician Unavailable Lorie Vanessa NP Primary Care Provider [phone] Encounter Details Date Type Department Care Team (Late st Contact Info) Description 04/13/2024 Patient Self-Triage [facility] Phys[facility] [address] [place] [address] Mychart, Generic Provider [address] [place] [address] Social History Tobacco Use Types Packs/Day Years [...] on file Legal Sex Female 6:55 PM MANAGER CARDIAC CATH Gender Identity Female 06/06/2022 7:40 AM MANAGER CARDIAC CATH Sexual Orientation Not on file documented as of this encounter Plan of Treatment Not on file documented as of this encounter Visit Diagnoses Not on filedocumented in this encounter Care Teams Head Sawyer Automatic Relationship Specialty Start Date End Date Lorie Vanessa NP [address] [place] [id number] PCP - General Family Practice 05/29/22 No, Physician 06/08/21 documented as of this encounter
--- OUTSIDE RECORDS SUMMARY | 2024-06-06 00:25 | XMS_ITS | Encounter Summary ---
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
--- OUTSIDE RECORDS SUMMARY | 2024-06-06 00:25 | XMS_ITS | Referral Summary ---
Author Organization [facility] Address [address] [place] [address] Care Team Providers Care Software Computer Specialist Name Role Phone No, Physician Unavailable Lorie Vanessa STUMP SHOOTER Primary Care Provider Encounters Date Type Department Care Team Description 05/25/2024 3:00 PM TARGET WORKER Office Visit [facility] at [address] [phone] Brittany Frances NP Rash and nonspecific skin eruption (Primary Dx) 05/13/2024 2:00 PM TARGET WORKER Office Visit [facility] Family Medicine at [address] [place] [address] Collin Valdez MD Class 3 severe obesity due to excess calories without serious comorbidity with body mass index (BMI) of 50.0 to 59.9 in adult (HCC) (Primary Dx) 04/14/[address] [facility] Health Information Management [address] [place] [address] Scanning, Provider 04/13/2024 Patient Self-Triage [facility] [address] [place] [address] Mychart, Generic Provider 04/13/2024 10:00 AM TARGET WORKER Telemedicine [facility] Primary Care at [address] [phone] Lorie Vanessa NP Increased frequency of headaches (Primary Dx); Fatigue, unspecified type; Encounter for hepatitis C screening test for low risk patient; Class 3 severe obesity due to excess calories without serious comorbidity with body mass index (BMI) of 50.0 to 59.9 in adult (HCC); Blurry vision 04/03/2024 Patient Self-Triage [facility]/ Physicians [address] [place] [id number] Mychart, Generic Provider 03/27/2024 Patient Self-Triage [facility]/ Physicians [address] [place] [address] Gabrielt, Generic Provider 03/20/2024 Telephone [facility] Primary Care at [address] [phone] Lorie Vanessa NP 03/19/2024 Telephone [facility] Primary Care at [address] [phone] Lorie Vanessa NP 03/16/2024 2:29 AM CDT - 03/16/2024 6:22 AM CDT [facility] Emergency Department [address] [place] [address] David Mishra Jr., MD Diarrhea, unspecified type (Primary Dx); Dehydration Discharge Disposition: Discharge to home or self care from Last 3 Months Allergies Active Allergy Reactions Criticality Noted Date [...] 04/13/2024 Assessment & Plan (04/13/2024 10:32 AM TARGET WORKER): Recent onset/acute Referral made to neurology for further evaluation and management Fatigue 04/13/2024 Assessment & Plan (04/13/2024 10:33 AM TARGET WORKER): Recent onset, likely multifactorial, currently, diagnosed with bronchitis states is improving Reviewed TSH level done in 09/2023 and most recent ER lab work from 03/16/24 Will monitor for stability Blurry vision 04/13/2024 Assessment & Plan (04/13/2024 10:34 AM TARGET WORKER): Recent onset Encouraged to schedule an appointment with eye doctor and referral made to Neurology for further evaluation and management Low back pain 07/16/2023 Upper respiratory infection with cough and conge stion 05/31/2023 Assessment & Plan (05/31/2023 7:26 AM TARGET WORKER): Instructed to increase clear liquids, rest, and vitamin C in diet. Advised to sleep with head elevated and use a cool mist vaporizer and Vicks VapoRub at bedtime for cough and congestion. Recommended follow-up if symptoms don't resolve, ER for new or worsening symptoms. Body aches 05/31/2023 Assessment & Plan (05/31/2023 7:27 AM TARGET WORKER): COVID-19, influenza, and RSV test were negative, see plan of care for upper respiratory infection with cough and congestion. Cough 05/31/2023 Assessment & Plan (05/31/2023 7:27 AM TARGET WORKER): COVID-19, influenza, and RSV test were negative, [...] 12/12/2022 Assessment & Plan (04/13/2024 10:30 AM TARGET WORKER): Chronic, improved Encouraged to: Make healthy food [...] heat and/or ice. Informed can also use qfrx-lku-iwjzpml lidocaine patches OR topical analgesic creams as [...] heat and/or ice. Informed can also use fixf-pke-xdbebbu lidocaine patches OR topical analgesic creams as directed as needed, but NOT with heat or ice. Instructed that further recommendations will depend on outcome of xrays. Constipation 08/21/2022 Assessment & Plan (12/12/2022 5:37 AM CDT): Chronic, stable-encouraged diet high in fiber, 20-30 g per day. Advised to keep scheduled appointment for EGD/colonoscopy with product development manager, Dr. Thomas. Assessment & Plan (08/21/2022 8:42 AM CDT): Worsening constipation over the past few years. -high-fiber diet -MiraLax OTC daily p.r.n. Diarrhea 08/21/2022 Assessment & Plan (12/12/2022 5:37 AM CDT): Chronic, stable-encouraged diet high in fiber, 20-30 g per day. Advised to keep scheduled appointment for EGD/colonoscopy with product development manager, Dr. Thomas. Assessment & Plan (08/21/2022 8:41 [...] appointment for EGD/colonoscopy and to follow-up with product development manager, Dr. Thomas, as recommended. Assessment & Plan (07/11/2022 5:53 PM TARGET WORKER): Go to ER for further evaluation of your right upper abdominal pain. Amenorrhea 06/09/2022 Assessment & Plan (12/12/2022 5:36 AM CDT): Chronic-encouraged to keep appointment with health practice manager, Dr. Lin, on 01/11/2023. Assessment & Plan (06/09/2022 2:34 PM TARGET WORKER): Acute-ordered serum test. Nausea 04/15/2022 Assessment & Plan (12/12/2022 5:41 AM CDT): Chronic, stable-continued on Zofran as directed as needed, refills sent to pharmacy per patient request. Encouraged to keep scheduled appointment for EGD and to follow-up with product development manager, Dr. Thomas, as recommended. Assessment & Plan (08/21/2022 8:41 AM CDT): Chronic nausea and vomiting, not improved with PPI or Zofran. -we will order ultrasound as above -EGD as above Assessment & Plan (06/09/2022 2:30 PM TARGET WORKER): Chronic, uncontrolled, despite starting treatment with Protonix 40 mg once daily-increased Protonix to 40 mg twice daily, new prescription sent to pharmacy along with a refill for Zofran per your request. A urine test has been ordered. Assessment & Plan (04/15/2022 11:47 AM TARGET WORKER): Chronicity and stability unknown-prescribed pantoprazole once daily in morning 1/2 hour before mealtime. Advised to get fasting lab work done. Referred to gastroenterology, number provided to call and schedule appointment. Frequent infections 04/15/2022 Assessment & Plan (12/12/2022 5:39 AM CDT): Chronic, stable-continued on Augmentin, cetirizine, and Flonase per motorcoach operator, considering SCIT. Encouraged to follow-up with senior analyst market intelligence as recommended. Assessment & Plan (06/09/2022 2:33 PM TARGET WORKER): Currently asymptomatic-reviewed strep pneumoniae antibody serotypes, immune to 12/23 types tested-recommended Pneumovax 23, given today. Advised if continues to get sick frequently after vaccination, can draw a post-vaccine titer to assess immune response to vaccination and/or refer to senior analyst market intelligence. Assessment & Plan (04/15/2022 11:48 AM TARGET WORKER): Chronic, recurrent upper respiratory infections and gastrointestinal problems- ordered strep pneumoniae antibody serotype test. Tachycardia, unspecified 04/15/2022 Assessment & Plan (12/12/2022 5:42 AM CDT): Chronic, improved/controlled on medication-continued on propranolol per cardiology. Encouraged to follow-up with marketing operations coordinator as recommended. Assessment & Plan (06/09/2022 2:30 PM TARGET WORKER): Chronicity and stability unknown, heart rate 75 beats per minute and regular at today's visit-encouraged to keep scheduled appointment with marketing operations coordinator. Assessment & Plan (04/15/2022 11:52 AM TARGET WORKER): Chronicity and stability unknown, with increase in [...] recent lab work. Encouraged to follow-up with marketing operations coordinator as recommended. Assessment & Plan (07/11/2022 5:53 PM TARGET WORKER): Go to ER for further evaluation of your dizziness/pre-syncopal episodes. Assessment & Plan (04/15/2022 11:52 AM TARGET WORKER): Recent onset, occurs with standing, with orthostatic [...] position. Assessment & Plan (04/15/2022 11:47 AM TARGET WORKER): Chronicity and stability unknown, with 20 point drop in systolic from lying to standing-advised to get fasting lab work done. Referred to cardiology, number provided to call and schedule appointment. Hemorrhoids 04/15/2022 Overview (01/09/2023): Internal Assessment & Plan (12/12/2022 5:40 AM CDT): Chronic, currently asymptomatic-encouraged to keep scheduled appointment for colonoscopy and to follow-up with product development manager, Dr. Thomas, as recommended. GALEANO (dyspnea on exertion) 04/15/2022 Assessment & Plan (12/12/2022 5:39 AM CDT): Chronic, stable-will monitor for worsening symptoms and can pursue additional testing/refer to pulmonology if/when needed. Assessment & Plan (04/15/2022 11:43 AM TARGET WORKER): Chronic, episodic, relieved with inhaler-refill for albuterol MDI sent to pharmacy per patient request. PCOS (polycystic ovarian syndrome) 07/02/2018 Assessment & Plan (12/12/2022 5:41 AM CDT): Chronic-encouraged to keep appointment with health practice manager, Dr. Lin, on 01/11/2023. Resolved Problems Problem [...] heat and/or ice. Informed can also use yjaa-crs-nvcufix lidocaine patches OR topical analgesic creams as [...] heat and/or ice. Informed can also use rddb-ikq-yllpign lidocaine patches OR topical analgesic creams as [...] heat and/or ice. Informed can also use bwll-hsw-mdktzcq lidocaine patches OR topical analgesic creams as [...] heat and/or ice. Informed can also use smpy-pnk-enmpbol lidocaine patches OR topical analgesic creams as directed as needed, but NOT with heat or ice. Instructed that further recommendations will depend on outcome of xrays. Left lower quadrant pain 07/11/2022 Assessment & Plan (07/11/2022 5:53 PM TARGET WORKER): Go to ER for further evaluation of your left lower abdominal pain. Need for vaccination 06/09/2022 023 Assessment & Plan (06/09/2022 2:34 PM TARGET WORKER): Reviewed strep pneumoniae antibody serotypes, immune to 12/ types tested-recommended Pneumovax 23, given today, also given Tdap, due. Advised if continues to get sick frequently after vaccination, can draw a post-vaccine titer to assess immune response to vaccination and/or refer to senior analyst market intelligence. Abrasion of neck 06/09/2022 12/11/2022 Assessment & Plan (06/09/2022 2:53 PM TARGET WORKER): Acute-instructed to apply triple antibiotic ointment as directed as needed and avoid picking at area. Ingrown right big toenail 04/15/2022 Assessment & Plan (04/15/2022 11:47 AM TARGET WORKER): Acute-prescribed cephalexin 500 mg BID x 1 week, Diflucan also sent to pharmacy per patient request. Upper abdominal pain 04/15/2022 023 Assessment & Plan (08/21/2022 8:41 AM CDT): [...] done. Assessment & Plan (06/09/2022 2:29 PM TARGET WORKER): Chronicity unknown, resolved with Protonix, however epigastric area tender upon palpation-increase Protonix to 40 mg twice daily. Encouraged to keep scheduled appointment with product development manager. Assessment & Plan (04/15/2022 11:45 AM TARGET WORKER): Chronicity and stability unknown-prescribed pantoprazole once daily in morning 1/2 hour before mealtime. Advised to get fasting lab work done. Referred to gastroenterology, number provided to call and schedule appointment. Morbid obesity with BMI of 45.0-49.9, adult 04/15/2022 12/12/2022 Assessment & Plan (12/12/2022 5:43 AM CDT): Preop cardiovascular exam 04/15/2022 Assessment & Plan (04/15/2022 11:49 AM TARGET WORKER): Reviewed past and current medical history, surgical history, social history, family history, current medications, and allergies. A ROS and PE were performed. Medications and labs were ordered and referrals were made. Discussed well woman exam/cervical cancer screening. Patient will follow-up in 6 months for an annual physical exam or sooner if needed. Foreign body in ear 01/06/2014 04/15/20 22 Immunizations Name Administration Dates Next Due DTaP [...] Polysaccharide PPV23 06/06/2022 Tdap 06/06/2022,05/12/2010 Varicella 12/11/2008,11/22/1998 Social History Tobacco Use Types Packs/Day Years [...] on file Legal Sex Female 6:55 PM TARGET WORKER Gender Identity Female 06/06/2022 7:40 AM TARGET WORKER Sexual Orientation Not on file Last Filed Vital Signs Vital Sign Reading Time Taken Comments Blood Pressure 122/78 05/25/2024 3:08 PM TARGET WORKER Pulse 114 05/25/2024 3:08 PM TARGET WORKER Temperature 36.8 ??C (98.2 ??F) 05/25/2024 3:08 PM CS T Respiratory Rate 24 05/25/2024 3:08 PM TARGET WORKER Oxygen Saturation 99% 05/25/2024 3:08 PM TARGET WORKER Inhaled Oxygen Concentration - - Weight 155.6 kg (343 lb) 05/25/2024 3:08 PM TARGET WORKER Height 162.6 cm (5' 4 ) 05/13/2024 1:57 PM TARGET WORKER Body Mass Index 58.88 05/13/2024 1:57 PM TARGET WORKER Plan of Treatment Not on file Procedures Procedure Name Priority Date/Time Associated Diagnosis Comments SCAN - RADIOLOGY/IMAGING 04/14/2024 9:17 PM TARGET WORKER LEUKOCYTES, FECAL Routine 03/16/2024 6:1 3 AM [...] HIGH RISK HPV Routine 05/17/2023 11:10 AM TARGET WORKER Well woman exam from Last 3 Months or Most Recently Relevant to Health Maintenance Results * SCAN - RADIOLOGY/IMAGING (04/14/2024 9:17 PM TARGET WORKER) Anatomical Region Laterality Modality Other us Provider Scanning Final Result * Leukocytes, fecal (03/16/2024 6:13 AM CDT) WBC, fecal No leukocytes No leukocytes Comment: Interpretive Data Testing performed by microsopy. Current Interpretive Data was last revised on 2022 Testing performed by: [facility], [address] [place]., [address] Stool 03/16/2024 6:13 AM CDT 03/16/2024 1:26 PM CDT David Mishra Jr., MD LAB BODY FLUIDS AND STO OLS ORDERABLES Final Result Performing Organization Address [facility] de Phone Number FRAN [address] [place] [address] [place] [address] * Stool culture Stool Rectum (03/16/2024 6:13 AM CDT) Direct Specimen Exam Shiga Toxin Testing: Antigen detection assay for Shiga-toxin NEGATIVE for Shiga Toxin 1 and Shiga Toxin 2. Comment:Testing performed by : [facility], [address] [place] [address], [id number] Report Final Report: No growth of enteric bacterial pathogens FRAN Comment:Testing performed by : [facility], [address] [place] [address]., [id number] Stool (Rectum) 03/16/2024 6: 13 AM CDT 03/16/2024 1:23 PM CDT Narrative FRAN - 03/20/2024 9:50 AM CDT Testing performed by [facility] Microbiology Laboratory ([phone]). Routine stool cultures include procedures to detect Salmonella, Shigella, Edwardsiella, Aeromonas, Pleisiomonas, Campylobacter, Yersinia, E. coli O157, and Shiga-like toxins. ?? Vibrio is cultured only upon special request. ??If Vibrio is suspected, please call the laboratory at [phone]. Interpretive data was last updated October 01, 2016. us David Mishra Jr., MD LAB MICROBIOLOGY - GENE RAL ORDERABLES Final Result Performing Organization Address [facility] Co de Phone Number FRAN [address] [facility] [place] [address] * CT Abdomen Pelvis W Contrast (03/16/2024 [...] AM T: ??03/16/2024 3:23 AM Report ID: [id number] Reading Location: ??[id number] Procedure Note Juany Salcido MD - 03/16/2024 [...] Electronically signed by Juany Salcido M.D. SN: SN Report ID: [id number] Reading Location: [place] [address] David Mishra Jr., MD IMG CT PROCEDURES Final Result * POCT hCG, urine (03/16/2024 1:46 AM CDT) HCG, ur, POC Negative Negative Lot Number [id number] QC Backgroud Clear Acceptable QC Control Line Acceptable Urine 03/16/2024 1:46 AM CDT David Mishra Jr., MD POINT OF CARE TEST ORDE RABLES Final Result * (ABNORMAL) Urinalysis reflex to microscopic and culture Urine (03/16/2024 1:43 AM CDT) Color, ur Yellow Yellow Comment:Testing performed by : [address] [address] Clarity, ur Clear Clear FRAN Comment:Testing performed by : [address] [address] Specific gravity, ur 1.012 1.003 - 1.030 FRAN Comment:Testing performed by : [address] [address] pH, urine 5.0 FRAN Comment: Interpretive Data ? Urine pH is affected by diet, medications, systemic acid-base disturbances, and renal tubular function. ??pH may affect urinary stone formation. ??For example, urine pH below 6.0 may help reduce the tendency for calcium phosphate stones and pH greater than 6.0 may reduce the tendency for uric acid stone formation. Source: [facility] Current Interpretive Data was last revised on 2017 Testing performed by: [facility], [address] [place] [address]., [id number] Protein, ur ql Negative Negative FRAN Comment:Testing performed by : [address], [place]., [address] Glucose, ur ql Negative Negative FRAN Comment:Testing performed by : [address] [address] Ketones, ur Negative Negative FRAN Comment:Testing performed by : [address], [place]., [address] Bilirubin, ur Negative Negative FRAN Comment:Testing performed by : [address], [place]., [address] Blood, ur Trace(A) Negative FRAN Comment:Testing performed by : [address] [address] Urobilinogen, ur <2.0 <2.0 mg/dL FRAN Comment:Testing performed by : [address] [address] Nitrite, ur Negative Negative FRAN Comment:Testing performed by : [address] [address] Leukocyte esterase, ur Negative Negative FRAN Comment:Testing performed by : [address] [address] UA reflex comment Reflex to microscopic UA will be performed. FRAN Comment:Testing performed by : [address] [address] Urine 03/16/2024 1:43 AM CDT 03/16/2024 1:54 AM CDT us David Mishra Jr., MD LAB MICROBIOLOGY - GENE RAL ORDERABLES Final Result FRAN [address] [facility] [place] [address] * (ABNORMAL) Urinalysis, microscopic only (03/16/2024 1:43 AM CDT) WBC, ur 0-5 0 - 5 /HPF Comment:Testing performed by : [facility], [address] [place] [address], [place]., [address] RBC, ur 0-2 0 - 2 /HPF FRAN Comment:Testing performed by : [facility], [address] [place] [address], [place]., [address] Epithelial cells, squamous, ur 1-5 0 - 5 /HPF FRAN Comment:Testing performed by : [facility], [address] [place] [address], [place]., [address] Bacteria, ur Trace(A) FRAN Comment:Testing performed by : [address], [place]., [address] Mucous, ur Present(A) FRAN Comment:Testing performed by : [address], [place]., [address] Culture Reflex Comment Reflex conditions for urine culture (WBC >10) not met. FRAN Comment:Testing performed by : [facility], [address] [place] [address], [place]., [address] Urine 03/16/2024 1:43 AM CDT 03/16/2024 1:54 AM CDT us David Mishra Jr., MD LAB URINE ORDERABLES Fi nal Result Performing Organization Address City/State/[facility] Co de Phone Number [facility] [place] [facility] [address] [facility] Department of Laboratories [place], [place] [id number] * eGFR (03/16/2024 1:26 AM CDT) eGFR [...] was last reviewed 2021. Testing performed by: [address] [address] Blood 03/16/2024 1:26 AM CDT 03/16/2024 1:44 AM CDT us David Mishra Jr., MD LAB BLOOD ORDERABLES Fi nal Result [facility] [place] [facility] [address] [facility] Department [place] [address] * (ABNORMAL) Differential, auto (03/16/2024 1:26 AM CDT) Neutrophil abs 9.0(H) 1.5 - 6.5 K/cumm Comment:Testing performed by : [address] [address] Imm gran abs 0.1 0.0 - 0.1 K/cumm RFAN Comment:Testing performed by : [address] [address] Lymphocyte abs 3.0 0.8 - 3.3 K/cumm FRAN Comment:Testing performed by : [address] [address] Monocyte abs 0.9(H) 0.2 - 0.8 K/cumm FRAN HAYS Comment:Testing performed by : [address] [address] Eosinophil abs 0.3 0.0 - 0.5 K/cumm FRAN Comment:Testing performed by : [address] [address] Basophil abs 0.1 0.0 - 0.1 K/cumm FRAN Comment:Testing performed by : [address] [address] Neutrophil pct 67.1 % [facility] Comment: Interpretive Data Percent cell count reference ranges are not reported, since discordance with absolute values may lead to misinterpretation of CBC data. Current Interpretive Data was last revised on 2017. Testing performed by: [address] [address] Imm gran pct 1.0 % [facility] Comment: Interpretive Data Percent cell count reference ranges are not reported, since discordance with absolute values may lead to misinterpretation of CBC data. Current Interpretive Data was last revised on 2017. Testing performed by: [address] [address] Lymphocyte pct 22.2 % [facility] Comment: Interpretive Data Percent cell count reference ranges are not reported, since discordance with absolute values may lead to misinterpretation of CBC data. Current Interpretive Data was last revised on 2017. Testing performed by: [address] [address] Monocyte pct 6.8 % [facility] Comment: Interpretive Data Percent cell count reference ranges are not reported, since discordance with absolute values may lead to misinterpretation of CBC data. Current Interpretive Data was last revised on 2017. Testing performed by: [address] [address] Eosinophil pct 2.2 % [facility] [place] [facility] Comment: Interpretive Data Percent cell count reference ranges are not reported, since discordance with absolute values may lead to misinterpretation of CBC data. Current Interpretive Data was last revised on 2017. Testing performed by: [address] [address] Basophil pct 0.7 % FRAN Comment: Interpretive Data Percent cell count reference ranges are not reported, since discordance with absolute values may lead to misinterpretation of CBC data. Current Interpretive Data was last revised on 2017. Testing performed by: [address] [address] Blood 03/16/2024 1:26 AM CDT 03/16/2024 1:44 AM CDT us David Mishra Jr., MD LAB BLOOD ORDERABLES nal Result [facility] [address] [facility] [place] [address] * (ABNORMAL) CBC with auto differential (03/16/2024 1:26 AM CDT) WBC 13.3(H) 3.8 - 9.9 K/cumm Comment:Testing performed by : [address] [address] Hgb 13.5 11.9 - 15.5 g/dL FRAN Comment:Testing performed by : [address] [address] Hct 42.1 35.6 - 45.5 % FRAN Comment:Testing performed by : [address] [address] Plt 432(H) 150 - 400 K/cumm FRAN Comment:Testing performed by : [address] [address] MPV 9.0(L) 9.1 - 12.3 fL FRAN Comment:Testing performed by : [address] [address] RBC 5.15 3.90 - 5.20 M/cumm FRAN Comment:Testing performed by : [address] [address] MCV 81.7 81.3 - 96.4 fL FRAN Comment:Testing performed by : [address] [address] MCH 26.2(L) 27.1 - 33.3 pg FRAN HAYS Comment:Testing performed by : [facility], [address] [place] [address]., [address] MCHC 32.1(L) 32.3 - 35.7 g/dL FRAN HAYS Comment:Testing performed by : [address], [address] RDW CV 13.5 11.1 - 14.9 % FRAN HAYS Comment:Testing performed by : [address] [address] RDW SD 39.8 35.7 - 48.1 fL FRAN HAYS Comment:Testing performed by : [address], [address] NRBC abs 0.00 0.00 - 0.01 K/cumm FRAN HAYS Comment:Testing performed by : [address] [address] Blood (Blood, Venous) 03/16/2024 1:26 AM CDT 03/16/2024 1:44 AM CDT us David Mishra Jr., MD LAB BLOOD ORDERABLES Fi nal Result Performing Organization Address City/[facility] Co de Phone Number [address] [place] [address] * Lipase (03/16/2024 1:26 AM CDT) Lipase 25 10 - 99 Units/L Comment:Testing performed by : [address] [address] Blood (Blood, Venous) 03/16/2024 1:26 AM CDT 03/16/2024 1:44 AM CDT David Mishra Jr., MD LAB BLOOD ORDERABLES Fi nal Result Performing Organization Address City/[facility] Co de Phone Number [address] [place] [address] * (ABNORMAL) Comprehensive metabolic panel (03/16/2024 1:26 AM CDT) Sodium 138 135 - 145 mmol/L Comment:Testing performed by : [address] [address] Potassium, pl 3.8 3.3 - 4.9 mmol/L FRAN Comment:Testing performed by : [address], [place]., [address] Chloride 103 97 - 110 mmol/L FRAN Comment:Testing performed by : [address], [place]., [address] CO2 21(L) 22 - 32 mmol/L FRAN Comment:Testing performed by : [address], [place]., [address] Anion gap 14 2 - 15 mmol/L FRAN Comment:Testing performed by : [address], [place]., [address] BUN 8 6 - 25 mg/dL FRAN Comment:Testing performed by : [address], [place]., [address] Creatinine 0.70 0.60 - 1.10 mg/dL FRAN Comment:Testing performed by : [address], [place]., [address] Glucose 94 70 - 199 mg/dL FRAN [...] was last revised 2022. Testing performed by: [address] [address] Calcium 9.4 8.5 - 10.3 mg/dL FRAN Comment:Testing performed by : [address] [address] Bilirubin, total 0.4 0.1 - 1.2 mg/dL FRAN HAYS Comment:Testing performed by : [facility], [address] [place] [address]., [address] Protein, pl 7.9 6.5 - 8.5 g/dL FRAN HAYS Comment:Testing performed by : [address] [address] Albumin 4.4 3.5 - 5.0 g/dL FRAN Comment:Testing performed by : [address] [address] Alk phos 111 40 - 130 Units/L FRAN Comment:Testing performed by : [address], [place]., [address] ALT 19 7 - 45 Units/L FRAN Comment:Testing performed by : [address] [address] AST 23 10 - 45 Units/L FRAN Comment:Testing performed by : [address] [address] Blood 03/16/2024 1:26 AM CDT 03/16/2024 1:44 AM CDT us David Mishra Jr., MD LAB BLOOD ORDERABLES nal Result FRAN [facility]9 [facility] Department [place] [address] * Pap with reflex to High Risk HPV and Genotyping (Cytology Component) (05/17/2023 11:10 AM TARGET WORKER) Endocervical (Pap test) 05/17/2023 11:10 AM TARGET WORKER 05/19/2023 11:35 PM TARGET WORKER Narrative PATHOLOGY [facility] - 05/23/2023 5:10 PM TARGET WORKER [facility] results best viewed via link to PDF [facility] Madina [facility] [place] [address] Note to Patients: This report may contain [...] Gender: ??F : ??1995 (Age: 27) Address: ??[address] [place] [address] ??[id number] Hospital #: ??[id number] Service: ??DEFAULT Location: ?? Patient Type: ??[facility] SPECIMEN Taken: ??05/17/2023 Received: ??05/19/2023 Accessioned: [...] clinical information and biopsy results as indicated. CMS Clinical Laboratory Improvement Amendments (CLIA) mandate that cytologic and histologic results be correlated for laboratory production quality analyst & improvement standards. ??FOR ALL HIGH-GRADE CASES [...] determined by the Surgical Pathology Department at [facility] as part of an ongoing quality tech program and in compliance with federally mandated [...] determined by the Surgical Pathology Department of [facility]. ??It has not been cleared or approved by the U. S. Food and Drug Administration. Sita Lin MD LAB CYTOLOGY ORDERABLES Magda l Result Performing Organization Address City/State/[facility] Co de Phone Number PATHOLOGY [facility] from Last 3 Months or Most Recently Relevant to Health Maintenance Insurance [employer] Address: [address] [place] [address] [employer] Address: [address] [place] [address] [employer] Address: [address] [place] [address] * Guarantor: [facility] Account Type Relation to Patient Date of Phone Billing Address Workers Comp 1995 [address] [id number] [facility] A Care Teams Software Computer Specialist Relationship Specialty Start Date End Date Lorie Vanessa NP [address] [place] [address] PCP - General Family Practice 05/29/22 No, Physician 06/08/21
--- OUTSIDE RECORDS SUMMARY | 2024-06-06 00:25 | XMS_ITS | Encounter Summary ---
Author Organization [facility] Address [address] [place] [address] Care Team Providers Care Clinical Assoc Name Role Phone No, Physician Unavailable Lorie Vanessa NP Primary Care Provider [phone] Reason for Referral * Consultation (Routine) - Authorized Specialty Diagnoses / Procedures Referred By Cyn burnett Referred To Contact Neurology Diagnoses Increased frequency of headaches Lorie Vanessa NP [facility] [address] Phone: tel: fax: [facility] Neurology [address] [place] [phone] Phone: tel: fax: Referral ID Status Reason Start Date Expiration Date Visits Requested Visits Authorized [id number] Authorized Specialty Services Required 05/13/2025 1 1 Question Answer Please select the performing region: [facility] [[id number]] Please select the performing department: [facility] NEURO BLVLE 250 [[id number]] # of visits: 1 ER HELPER Reason for Visit * Reason Comments Neuro Problem Encounter Details Date Type Department Care Team ([facility] st Contact Info) Description 04/13/2024 10:00 AM BENDER HELPER Telemedicine [facility] Primary Care at [facility] [address] [facility] [address] [place] [address] Lorie Vanessa NP [address] [facility] [address] [place] [address] Increased frequency of headaches (Primary Dx); Fatigue, unspecified type; Encounter for hepatitis C screening test for low risk patient; Class 3 severe obesity due to excess calories without serious comorbidity with body mass index (BMI) of 50.0 to 59.9 in adult (HCC); Blurry vision Social History Tobacco Use Types Packs/Day Years [...] on file Legal Sex Female 6:55 PM BENDER HELPER Gender Identity Female 06/06/2022 7:40 AM BENDER HELPER Sexual Orientation Not on file documented as of this encounter Last Filed Vital Signs Vital Sign Reading Time Taken Comments Blood Pressure - - Pulse 84 04/13/2024 9:52 AM BENDER HELPER Temperature - - Respiratory Rate - - Oxygen Saturation - - Inhaled Oxygen Concentration - - Weight 145.2 kg (320 lb) 04/13/2024 9:52 AM BENDER HELPER Height 162.6 cm (5' 4.02 ) 04/13/2024 9:52 AM CS T Body Mass Index 54.9 04/13/2024 9:52 AM BENDER HELPER documented in this encounter Patient Instructions * Patient Instructions* Lorie Vanessa NP - 04/13/2024 10:00 AM BENDER HELPER A referral has been made to neurology. Nonfasting lab work has been ordered to be done at your convenience. Be sure to: Get 7-9 hours of sleep a night Make healthy food choices, limiting concentrated sweets, fats, and cholesterol in diet Monitor daily caloric intake and portion sizes Exercise most days of the week for goal of at least 150 minutes of exercise per week ER HELPER ER HELPER documented in this encounter Progress Notes * Lorie Vanessa NP - 04/13/2024 10:00 AM CST Images from the original note were not included. Assessment/Plan: Assessment/Plan Diagnoses and all orders for this visit: Increased frequency of headaches (Primary) Assessment & Plan: Recent onset/acute Referral made to neurology for further evaluation and management Orders: - Ambulatory referral to Neurology; Future Fatigue, unspecified type Assessment & Plan: Recent onset, likely multifactorial, currently, diagnosed with bronchitis states is improving Reviewed TSH level done in 09/2023 and most recent ER lab work from 03/16/24 Will monitor for stability Orders: - Thyroid Function Howard; Future Encounter for hepatitis C screening test for low risk patient - Hepatitis C antibody Blood; Future Class 3 severe obesity due to excess calories without serious comorbidity with body mass index (BMI) of 50.0 to 59.9 in adult (HCC) Assessment & Plan: Chronic, improved Encouraged to: Make healthy food choices, limiting intake of concentrated sweets, cholesterol, and saturated fat Monitor daily caloric intake and portion sizes Exercise most days of the week for a goal of at least 150 minutes of exercise per week Blurry vision Assessment & Plan: Recent onset Encouraged to schedule an appointment with eye doctor and referral made to Neurology for further evaluation and management Return in about 8 weeks (around 06/08/2024) for Annual physical. Subjective: Emily Hahn is a 28 y.o. female here for increase in frequency of headaches, fatigue, and brain fog, forgetting what I'm doing, spacing out for the past several weeks. She is having headaches at least three times a week. She has a history of migraine headaches, however states these are not migraines, can occur on 1 or both sides of her head.She also reports episodic blurry vision. Her symptoms have been going on for a few week. Her CBC in 02/2024 was unremarkable except for elevated WBC and minimally elevated, but stable, platelets, had done in the ER, was being seen for nausea, vomiting, and diarrhea. Her TSH level in 09/2023 was normal. She currently takes propranolol LA 60 mg daily. HPI Chief Complaint Patient presents with Neuro Problem This was a telemedicine visit with Emily Hahn alone which took place via real-time video connection. During the visit, I was located in the office and the patient was located at home in the [facility]. The patient visit started at 10:08 AM and ended at 10:22 AM. My total encounter time on 04/13/2024 was 22 minutes which was spent in the activities documented in the note. This includes time spent prior to the visit and after the visit in direct care of the patient. This time does not include time spent in any separately reportable services. I have explained the option of participating in a telemedicine visit to the patient. After being given an opportunity to ask questions about and discuss this type of visit, the patient verbally consented to proceeding with the telemedicine visit. The patient understands that this service replaces an office visit and they may be billed and/or responsible for any applicable copayments. A guest was not included in this video visit. Objective: Review of Systems Constitutional: Positive for fatigue. Eyes: Positive for visual disturbance. Neurological: Positive for headaches. Psychiatric/Behavioral: Brain fog, forgetting what I'm doing, spacing out Vitals Pulse 84 Ht 162.6 cm (5' 4.02 ) Wt (!) 145.2 kg (320 lb) BMI 54.90 kg/m?? Physical Exam Vitals (Height, weight, BMI, and pulse reviewed) and nursing note reviewed. Constitutional: General: She is not in acute distress. Appearance: She is ill-appearing (coughing throughout visit, states was diagnosed with bronchitis).She is not toxic-appearing. HENT: Head: Normocephalic and atraumatic. Pulmonary: Effort: Pulmonary effort is normal. Comments: No respiratory distress noted at visit today Neurological: Mental Status: She is alert and oriented to person, place, and time. Psychiatric: Mood and Affect: Mood normal. Behavior: Behavior normal. Thought Content: Thought content normal. Return in about 8 weeks (around 06/08/2024) for Annual physical. Lorie Vanessa MUD JACK NOZZLE WORKER BC ER HELPER documented in this encounter Miscellaneous Notes * Assessment & Plan Note - Lorie Vanessa NP - 04/13/2024 10:34 AM CSTAssociated Problem(s): Blurry vision Recent onset Encouraged to schedule an appointment with eye doctor and referral made to Neurology for further evaluation and management ER HELPER * Assessment & Plan Note - Lorie Vanessa NP - 04/13/2024 10:33 AM CSTAssociated Problem(s): Fatigue Recent onset, likely multifactorial, currently, diagnosed with bronchitis states is improving Reviewed TSH level done in 09/2023 and most recent ER lab work from 03/16/24 Will monitor for stability ER HELPER * Assessment & Plan Note - Lorie Vanessa NP - 04/13/2024 10:32 AM CSTAssociated Problem(s): Increased frequency of headaches Recent onset/acute Referral made to neurology for further evaluation and management ER HELPER * Assessment & Plan Note - Lorie Vanessa NP - 04/13/2024 10:30 AM CSTAssociated Problem(s): Class 3 severe obesity due to excess calories without serious comorbidity with body mass index (BMI) of 50.0 to 59.9 in adult (HCC) Chronic, improved Encouraged to: Make healthy food choices, limiting intake of concentrated sweets, cholesterol, and saturated fat Monitor daily caloric intake and portion sizes Exercise most days of the week for a goal of at least 150 minutes of exercise per week ER HELPER documented in this encounter Plan of Treatment Scheduled Orders Name Type Priority Associated Diagnoses Orde r Schedule Hepatitis C antibody Blood Microbiology Routine Encounter for hepatitis C screening test for low risk patient Expected: 04/16/2024, Expires: 04/13/2025 Thyroid Function [facility] Routine Fatigue, unspecified type Expected: 04/16/2024, Expires: 04/13/2025 Scheduled Referrals Name Type Priority Associated Diagnoses Order Schedule Ambulatory referral to Neurology Outpatient Referral Routine Increased frequency of headaches Expected: 04/27/2024 (Approximate), Expires: 04/13/2025 documented as of this encounter Visit Diagnoses Diagnosis Increased frequency of headaches- Primary Fatigue, unspecified type Encounter for hepatitis C screening test for low risk patient Class 3 severe obesity due to excess calories without serious comorbidity with body mass index (BMI) of 50.0 to 59.9 in adult (HCC) Blurry vision Other specified visual disturbances documented in this encounter Discontinued Medications Medication Sig Discontinue Reason Start Date End Da te HYDROcodone-acetaminophen (NORCO) 5-325 mg per tabletIndications:Pain Take 1 tablet by mouth every 6 (six) hours as needed for pain Therapy completed 03/05/2024 04/13/2024 ondansetron ODT (ZOFRAN-ODT) 4 mg disintegrating tabletIndications:Viral gastroenteritis Take 1 tablet (4 mg total) by mouth every 8 (eight) hours as needed for nausea or vomiting Alternate therapy 02/25/2024 04/13/2024 cromolyn (GASTROCROM) 100 mg/5 mL solutionIndications:system ic mastocytosis Take 10 mL (200 mg total) by mouth 4 (four) times a day before meals and nightly Patient Reported 12/03/2022 04/13/2024 prochlorperazine (COMPAZINE) 10 mg tablet Take 1 tablet (10 mg total) by mouth 2 (two) times a day as needed for nausea or vomiting Patient Reported 03/05/2024 04/13/2024 documented as of this encounter Historical Medications * This list may reflect changes made after this encounter. promethazine-DM (PROMETHAZINE-DM) 1.25-3 mg/mL syrup TAKE 5 ML BY MOUTH EVERY 4 TO 6 HOURS FOR 7 DAYS 04/08/2024 05/25/2024 added in this encounter Care Teams Clinical Assoc Relationship Specialty Start Date End Date Lorie Vanessa NP [address] [place] [id number] PCP - General Family Practice 05/29/22 No, Physician 06/08/21 documented as of this encounter
--- OUTSIDE RECORDS SUMMARY | 2024-06-06 00:25 | XMS_ITS | Encounter Summary ---
Author Organization [facility] Healthcare Address [address] [place] [address] Care Team Providers Care Center Rep Name Role Phone No, Physician Unavailable Lorie Vanessa NP Primary Care Provider [phone] Encounter Details Date Type Department Care Team (Late st Contact Info) Description 04/14/2024 Orders Only [facility] Information Management [address] [place] [id number] Scanning, Provider Social History Tobacco Use Types Packs/Day Years [...] on file Legal Sex Female 6:55 PM DOCUMENT CONTROL COORDINATOR Gender Identity Female 06/06/2022 7:40 AM DOCUMENT CONTROL COORDINATOR Sexual Orientation Not on file documented as of this encounter Plan of Treatment Not on file documented as of this encounter Procedures Procedure Name Priority Date/Time Associated Diagnosis Comments SCAN - RADIOLOGY/IMAGING 04/14/2024 9:17 PM DOCUMENT CONTROL COORDINATOR documented in this encounter Results * SCAN - RADIOLOGY/IMAGING (04/14/2024 9:17 PM DOCUMENT CONTROL COORDINATOR) Anatomical Region Laterality Modality Other us Provider Scanning Final Result documented in this encounter Visit Diagnoses Not on filedocumented in this encounter Care Teams Center Rep Relationship Specialty Start Date End Date Lorie Vanessa NP [address] [place] [id number] PCP - General Family Practice 05/29/22 No, Physician 06/08/21 documented as of this encounter
--- OUTSIDE RECORDS SUMMARY | 2024-06-06 00:25 | XMS_ITS | Encounter Summary ---
Author Organization [facility] Healthcare Address [address] [place] [address] Care Team Providers Care Hopper Attendant Name Role Phone No, Physician Unavailable Lorie Vanessa NP Primary Care Provider [phone] Encounter Details Date Type Department Care Team (Late st Contact Info) Description 03/19/2024 Telephone [facility] Primary [place] at [place] [address] [place] [address] [address] [place] [address] Lorie Vanessa NP [facility] [address] Social History Tobacco Use Types [...] on file Legal Sex Female 6:55 PM PROFESSOR OF LAW Gender Identity Female 06/06/2022 7:40 AM PROFESSOR OF LAW Sexual Orientation Not on file documented as of this encounter Miscellaneous Notes * Telephone Encounter - Blanca Chopra - 03/19/2024 8:07 AM CDT Error/ts documented in this encounter Plan of Treatment Not on file documented as of this encounter Visit Diagnoses Not on filedocumented in this encounter Care Teams Hopper Attendant Relationship Specialty Start Date End Date Lorie Vanessa NP [address] [place] [address] PCP - General Family Practice 05/29/22 No, Physician 06/08/21 documented as of this encounter
--- OUTSIDE RECORDS SUMMARY | 2024-06-06 00:25 | XMS_ITS | Encounter Summary ---
Author Organization [facility] Healthcare Address [address] [place] [address] Care Team Providers Care Dye Blender Name Role Phone No, Physician Unavailable Lorie Vanessa NP Primary Care Provider [phone] Reason for Visit * Reason Comments weight/obesity management Encounter Details Date Type Department Care Team (Late st Contact Info) Description 05/13/2024 2:00 PM TECHNICAL PROGRAM MANAGER Office Visit [facility] Family Medicine at [address] [place] [address] Collin Valdez MD [address] [place] [address] [address] [place] [address] Class 3 severe obesity due to excess calories without serious comorbidity with body mass index (BMI) of 50.0 to 59.9 in adult (HCC) (Primary Dx) Social History Tobacco Use Types [...] on file Legal Sex Female 6:55 PM TECHNICAL PROGRAM MANAGER Gender Identity Female 06/06/2022 7:40 AM TECHNICAL PROGRAM MANAGER Sexual Orientation Not on file documented as of this encounter Last Filed Vital Signs Vital Sign Reading Time Taken Comments Blood Pressure 128/79 05/13/2024 1:57 PM TECHNICAL PROGRAM MANAGER Pulse 88 05/13/2024 1:57 PM TECHNICAL PROGRAM MANAGER Temperature 36.2 ??C (97.2 ??F) 05/13/2024 1:57 PM CS T Respiratory Rate 18 05/13/2024 1:57 PM TECHNICAL PROGRAM MANAGER Oxygen Saturation 97% 05/13/2024 1:57 PM TECHNICAL PROGRAM MANAGER Inhaled Oxygen Concentration - - Weight 157.9 kg (348 lb 1.6 oz) 05/13/2024 1:57 PM TECHNICAL PROGRAM MANAGER Height 162.6 cm (5' 4 ) 05/13/2024 1:57 PM TECHNICAL PROGRAM MANAGER Body Mass Index 59.75 05/13/2024 1:57 PM TECHNICAL PROGRAM MANAGER documented in this encounter Ordered Prescriptions Prescription Sig Dispense Quantity Refills Last Filled Start Date End Date phentermine (ADIPEX-P) 37.5 mg tabletIndications: Weight Loss Management for Obese Patient (BMI >= 30) Take 1 tablet (37.5 mg total) by mouth daily before breakfast 90 tablet 1 05/13/2024 5 documented in this encounter Progress Notes * Collin Valdez MD - 05/13/2024 2:00 PM CST Images from the original note were not included. Visit date: 05/13/2024 Patient ID: Emily Hahn is a 28 y.o. female. Chief Complaint. Chief Complaint Patient presents with weight/obesity management HPI. Patient is a 28 y.o. female HPI Lifestyle Medicine For Weight Management: Previous Dietary Approaches: Not on any specific Diet FRANDY: no Mental Health: Stable Diabetes: No Previous History of Weight Loss Surgery: None First Visit Date: 05/13/24 First Visit Weight: 348lb Dates: Weight (lb) Wt Readings from Last 3 Encounters: 05/13/24 (!) 157.9 kg (348 lb 1.6 oz) 04/13/24 (!) 145.2 kg (320 lb) 03/16/24 (!) 153 kg (337 lb 4.9 oz) Total Weight Loss: First VIist Treatment: Medication: Phentermine Meal Replacement/Delivery: No Specific Diet: Not on any specific Diet Food Diary: No Activity: is walking and Daily Steps [place] 5000 to [id number] Past Medical History: Diagnosis Date Anxiety 2017 Asthma suspected, pending PFTs 2022 Brain concussion Depression 2018 Dysmenorrhea 2016 GERD (gastroesophageal reflux disease) Infection Constantly sick Irritable bowel syndrome Menstrual problem 2014 Migraines Motion sickness Nausea Polycystic ovary syndrome Postural orthostatic tachycardia syndrome (POTS) Seizures (HCC) History of febrile seizures as an /toddler Past Surgical History: Procedure Laterality Date BAND HEMORRHOIDECTOMY COLONOSCOPY ENDOMETRIAL BIOPSY ESOPHAGOGASTRODUODENOSCOPY Allergies Allergen Reactions Adhesive Itching and Rash Influenza Virus Vaccines Itching, Rash and Redness Red Dye Hives Fluoxetine Mental status changes Nitrofurantoin Itching Social History Tobacco Use Smoking status: Never Passive exposure: Yes Smokeless tobacco: Never Tobacco comments: Grew up with smokers - mom, sister, brother in law, brother, sister in law. Secondhand smoke Substance and Sexual Activity Drug use: Never Sexual activity: Yes Partners: Male control/protection: OCP, None Alcohol Use: Not At Risk (01/09/2023) AUDIT-C Frequency of Alcohol Consumption: Monthly or less Average Number of Drinks: 1 or 2 Frequency of Binge Drinking: Never Family History Problem Relation Age of Onset Alcohol abuse Paternal Grandfather Heart disease Paternal Grandfather Heart disease Paternal Grandmother Diabetes Maternal Grandmother Family history of diabetes mellitus - (Added by TW Conv) Mental illness Maternal Grandmother Family history of mental disorder - (Added by TW Conv) Alzheimer's disease Maternal Grandmother Squamous cell carcinoma Father Cancer Father Depression Father Obesity Father Hypertension Mother COPD Mother Anemia Mother Depression Mother Heart failure Brother Alcohol abuse Brother Depression Brother Drug abuse Brother Early Brother Depression Sister Drug abuse Sister Breast cancer Mother's Sister Cancer Mother's Sister Uterine cancer Neg Hx Ovarian cancer Neg Hx Colon cancer Neg Hx Current Medications: Outpatient Encounter Medications as of 05/13/2024 Medication Sig Dispense Refill albuterol HFA (PROVENTIL HFA,VENTOLIN HFA,PROAIR HFA) 90 mcg/actuation inhaler Inhale 2 puffs every4 (four) hours as needed for wheezing or shortness of breath 1 each 0 cetirizine (ZyrTEC) 10 mg chewable tablet Take 4 tablets (40 mg total) by mouth daily Up to 40 daily PRN cholecalciferol 25 mcg (1,000 unit) tablet Take 1 tablet (1,000 Units total) by mouth daily clonazePAM (KlonoPIN) 0.5 mg tablet Take 1 tablet (0.5 mg total) by mouth daily as needed famotidine (PEPCID) 40 mg tablet TAKE 1 TABLET(40 MG) BY MOUTH EVERY NIGHT NEEDED FOR HEARTBURN 30 tablet 3 lamoTRIgine (LaMICtal) 100 mg tablet Take 1 tablet (100 mg total) by mouth nightly magnesium oxide (MAG-OX) 400 mg (241.3 mg elemental magnesium) tablet TAKE 1 TABLET(400 MG) BY MOUTH DAILY 90 tablet 1 metoclopramide (REGLAN) 10 mg tablet Take 1 tablet (10 mg total) by mouth every 6 (six) hours 30 tablet 2 ondansetron (ZOFRAN) 4 mg tablet Take 1 tablet (4 mg total) by mouth every 6 (six) hours as needed for nausea or vomiting [address] (PROTONIX) 40 mg EC tablet Take 1 tablet (40 mg total) by mouth daily 30 tablet 3 propranolol LA (INDERAL LA) 60 mg 24 hr capsule Take 1 capsule (60 mg total) by mouth daily 90 capsule 0 sertraline (ZOLOFT) 100 mg tablet Take 2 tablets (200 mg total) by mouth nightly triamcinolone (NASACORT) 55 mcg nasal inhaler Administer 2 sprays into each nostril daily Can increase to twice daily if symptoms persist 16.9 mL 11 dicyclomine (BENTYL) 20 mg tablet Take 1 tablet (20 mg total) by mouth every 6 (six) hours for 7 days (Patient not taking: Reported on 05/13/2024) 28 tablet 0 phentermine (ADIPEX-P) 37.5 mg tablet Take 1 tablet (37.5 mg total) by mouth daily before [id number] tablet 1 promethazine-DM (PROMETHAZINE-DM) 1.25-3 mg/mL syrup TAKE 5 ML BY MOUTH EVERY 4 TO 6 HOURS FOR 7 DAYS No facility-administered encounter medications on file as of 05/13/2024. Review of Systems: Review of Systems Constitutional: Positive for activity change, appetite change, fatigue and unexpected weight change. Negative for chills, diaphoresis and fever. HENT: Negative for trouble swallowing and voice change. Eyes: Negative for photophobia and visual disturbance. Respiratory: Negative for apnea, chest tightness and shortness of breath. Cardiovascular: Negative for chest pain, palpitations and leg swelling. Gastrointestinal: Negative for blood in stool, constipation and nausea. Endocrine: Negative for cold intolerance, heat intolerance, polydipsia, polyphagia and polyuria. Musculoskeletal: Negative for arthralgias, back pain, gait problem, myalgias, neck pain and neck stiffness. Skin: Negative for rash. Allergic/Immunologic: Negative for food allergies. Neurological: Negative for dizziness, seizures, weakness, light-headedness and headaches. Hematological: Negative for adenopathy. Psychiatric/Behavioral: Negative for agitation, behavioral problems and suicidal ideas. The patientis not nervous/anxious and is not hyperactive. BP 128/79 (BP Location: Left arm, Patient Position: Sitting) Pulse 88 Temp 36.2 ??C (97.2 ??F) (Temporal) Resp 18 Ht 162.6 cm (5' 4 ) Wt (!) 157.9 kg (348 lb 1.6 oz) SpO2 97% BMI 59.75 kg/m?? Physical Exam: Physical Exam Constitutional: He is oriented to person, place, and time. Vital signs are normal. He appears well-developed and well-nourished. HENT: Head: Normocephalic and atraumatic. Mouth/Throat: Oropharynx is clear and moist. Eyes: Pupils are equal, round, and reactive to light. Conjunctivae and EOM are normal. Neck: Normal range of motion. Neck supple. No thyromegaly present. Cardiovascular: Normal rate, regular rhythm, normal heart sounds and intact distal pulses. Pulmonary/Chest: Effort normal and breath sounds normal. Neurological: He is alert and oriented to person, place, and time. Psychiatric: He has a normal mood and affect. His behavior is normal. Judgment and thought content normal. Nursing note and vitals reviewed. Assessment & Plan: Diagnoses and all orders for this visit: Class 3 severe obesity due to excess calories without serious comorbidity with body mass index (BMI) of 50.0 to 59.9 in adult ([facility]) (Primary) Comments: Chronic. Uncontrolled. Goal: 150lb. Start Phentermine. Recommnd seminar Orders: - phentermine (ADIPEX-P) 37.5 mg tablet; Take 1 tablet (37.5 mg total) by mouth daily before breakfast Body mass index is 59.75 kg/m??. BMI Plan: Nutrition/Activities/Behavioral Counseling. Education Provided. Follow up 1-3 months. Collin Valdez MD NICAL PROGRAM MANAGER documented in this encounter Plan of Treatment Not on file documented as of this encounter Visit Diagnoses Diagnosis Class 3 severe obesity due to excess calories without serious comorbidity with body mass index (BMI) of 50.0 to 59.9 in adult ([facility])- Primary documented in this encounter Care Teams Dye Blender Relationship Specialty Start Date End Date Lorie Vanessa NP [address] [place] [id number] PCP - General Family Practice 05/29/22 No, Physician 06/08/21 documented as of this encounter
--- OUTSIDE RECORDS SUMMARY | 2024-06-06 00:25 | XMS_ITS | Encounter Summary ---
Author Organization [facility] Healthcare Address [address] [place] [address] Care Team Providers Care Engine Assembler Name Role Phone No, Physician Unavailable Lorie Vanessa NP Primary Care Provider [phone] Reason for Visit * Reason Comments Diarrhea Encounter Details Date Type Department Care Team (Late st Contact Info) Description 03/16/2024 2:29 AM CDT - 03/16/2024 6:22 AM CDT Emergency [facility] Emergency Department [address] [place] [address] David Mishra Jr., MD [address] [place] [address] Diarrhea, unspecified type (Primary Dx); Dehydration Discharge Disposition: Discharge to home or self care Social History Tobacco Use Types Packs/Day Years [...] on file Legal Sex Female 6:55 PM 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 Gender Identity Female 06/06/2022 7:40 AM 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 Sexual Orientation Not on file documented as of this encounter Last Filed Vital Signs Vital Sign Reading Time Taken Comments Blood Pressure 114/69 03/16/2024 4:00 AM CDT Pulse 91 03/16/2024 4:00 AM CDT Temperature 36.7 ??C (98 ??F) 03/16/2024 1:16 AM CDT Respiratory Rate 18 03/16/2024 3:29 AM CDT Oxygen Saturation 97% 03/16/2024 4:00 AM CDT Inhaled Oxygen Concentration - - Weight 153 kg (337 lb 4.9 oz) 03/16/2024 1:16 AM CDT Height - - Body Mass Index 57.9 03/05/2024 1:22 PM CDT documented in this encounter Discharge Instructions * Discharge Instructions* David Mishra Jr., MD - 03/16/2024 4:02 AM CDT Pepto-Bismol use as directed Metamucil to heaping tbsp in a glass of water twice a day Active culture yogurt 4 oz 4 times a day Probiotics to capsules 4 times a day Return to the emergency department if worsens * Attachments The following attachments cannot be sent through Care Everywhere. * Acute Diarrhea (General Information) (Canadian) documented in this encounter Medications at Time of Discharge cetirizine (ZyrTEC) 10 mg chewable tablet Take 4 tablets (40 mg total) by mouth daily Up to 40 daily PRN cholecalciferol 25 mcg (1,000 unit) tablet Take 1 tablet (1,000 Units total) by mouth daily clonazePAM (KlonoPIN) 0.5 mg tablet Take 1 tablet (0.5 mg total) by mouth daily as needed dicyclomine (BENTYL) 20 mg tablet Take 1 tablet (20 mg total) by mouth every 6 (six) hours for 7 days 28 tablet 03/05/2024 famotidine (PEPCID) 40 mg tabletIndications:Ga stroesophageal reflux disease without esophagitis TAKE 1 TABLET(40 MG) BY MOUTH EVERY NIGHT NEEDED FOR HEARTBURN 30 tablet 3 05/22/2023 lamoTRIgine (LaMICtal) 100 mg tablet Take 1 tablet (100 mg total) by mouth nightly 12/28/2021 magnesium oxide (MAG-OX) 400 mg (241.3 mg elemental magnesium) tablet TAKE 1 TABLET(400 MG) BY MOUTH DAILY 90 tablet 1 02/11/2024 metoclopramide (REGLAN) 10 mg tablet Take 1 tablet (10 mg total) by mouth every 6 (six) hours 30 tablet 2 03/16/2024 ondansetron (ZOFRAN) 4 mg tablet Take 1 tablet (4 mg total) by mouth every 6 (six) hours as needed for nausea or vomiting 20 tablet 2 03/16/[address] (PROTONIX) 40 mg EC tabletIndications:Na usea,Right upper quadrant pain,Gastroesophagea l reflux disease without esophagitis Take 1 tablet (40 mg total) by mouth daily 30 tablet 3 07/23/2023 sertraline (ZOLOFT) 100 mg tablet Take 2 tablets (200 mg total) by mouth nightly triamcinolone (NASACORT) 55 mcg nasal inhalerIndications:A llergic Rhinitis,Chronic Non-Allergic Rhinitis Administer 2 sprays into each nostril daily Can increase to twice daily if symptoms persist 16.9 mL 09/04/2022 cromolyn (GASTROCROM) 100 mg/5 mL solutionIndications: systemic mastocytosis Take 10 mL (200 mg total) by mouth 4 (four) times a day before meals and nightly 1200 mL 12/03/2022 04/13/20 24 HYDROcodone-acetamin ophen (NORCO) 5-325 mg per tabletIndications:Pa in Take 1 tablet by mouth every 6 (six) hours as needed for pain 8 tablet 03/05/2024 04/13/20 24 ondansetron ODT (ZOFRAN-ODT) 4 mg disintegrating tabletIndications:Vi ral gastroenteritis Take 1 tablet (4 mg total) by mouth every 8 (eight) hours as needed for nausea or vomiting 20 tablet 02/25/2024 04/13/20 24 prochlorperazine (COMPAZINE) 10 mg tablet Take 1 tablet (10 mg total) by mouth 2 (two) times a day as needed for nausea or vomiting 10 tablet 03/05/2024 04/13/20 24 propranolol LA (INDERAL LA) 60 mg 24 hr capsule TAKE 1 CAPSULE(60 MG) BY MOUTH DAILY 90 capsule 02/07/2024 05/07/20 24 documented as of this encounter Ordered Prescriptions Prescription Sig Dispense Quantity Refills Last Filled Start Date End Date metoclopramide (REGLAN) 10 mg tablet Take 1 tablet (10 mg total) by mouth every 6 (six) hours 30 tablet 2 03/16/2024 ondansetron (ZOFRAN) 4 mg tablet Take 1 tablet (4 mg total) by mouth every 6 (six) hours as needed for nausea or vomiting 20 tablet 2 03/16/2024 documented in this encounter Discharge Disposition Disposition Code Departure Means Destination Comment s Discharge to home or self care documented in this encounter ED Notes * David Mishra Jr., MD - 03/16/2024 3:29 AM CDT HPI Chief Complaint Patient presents with Diarrhea 28 yo wf presents with reports of n/v/d x2 weeks. Was seen in ed recently and Ct on 03/05 showed a malabsorptive or secretory state. Was dc wioth f/u with pcp but ariana ble to grt in and comes in todaywith ongoing symtptoms. Reports not eqating or drinking much, no fever or chills, no dysuria. Gets a little lightheaded when stands up to fqast.. Patient History: Patient Active Problem List Diagnosis Date Noted Low back pain 07/16/2023 Upper respiratory infection with cough and congestion 05/31/2023 Body aches 05/31/2023 Cough 05/31/2023 Chronic cough 03/08/2023 Closed fracture of fifth metatarsal bone of right foot 02/01/2023 Sprain of right ankle 02/01/2023 Hiatal hernia 01/09/2023 Morbid obesity with BMI of 50.0-59.9, adult ([facility]) 12/12/2022 Vitamin D deficiency 12/12/2022 Chronic left-sided low back pain without sciatica 09/05/2022 Acute pain of right knee 09/05/2022 Constipation 08/21/2022 Diarrhea 08/21/2022 Gastroesophageal reflux disease without esophagitis 08/21/2022 Family history of CHF (congestive heart failure) 07/13/2022 Right upper quadrant pain 07/11/2022 Amenorrhea 06/09/2022 Nausea 04/15/2022 Frequent infections 04/15/2022 Tachycardia, unspecified 04/15/2022 Dizziness 04/15/2022 Orthostatic hypotension 04/15/2022 Hemorrhoids 04/15/2022 GALEANO (dyspnea on exertion) 04/15/2022 PCOS (polycystic ovarian syndrome) 07/02/2018 Past Medical History: Diagnosis Date Anxiety 2018 Asthma suspected, pending PFTs 2022 Brain concussion Depression 2018 Dysmenorrhea 2016 GERD (gastroesophageal reflux disease) Infection Constantly sick Irritable bowel syndrome Menstrual problem 2014 Migraines Motion sickness Nausea Polycystic ovary syndrome Postural orthostatic tachycardia syndrome (POTS) Seizures ([facility]) History of febrile seizures as an /toddler Past Surgical History: Procedure Laterality Date BAND HEMORRHOIDECTOMY COLONOSCOPY ENDOMETRIAL BIOPSY ESOPHAGOGASTRODUODENOSCOPY Family History Problem Relation Age of Onset [...] cancer Neg Hx Colon cancer Neg Hx Social History Tobacco Use Smoking status: Never Passive exposure: Yes Smokeless tobacco: Never Tobacco comments: Grew up with smokers - mom, sister, brother in law, brother, sister in law. Secondhand smoke Vaping Use Vaping status: Never Used Substance and Sexual Activity Alcohol use: None Drug use: Never Sexual activity: Yes Partners: Male control/protection: OCP, None Social History Social History Narrative Merged History Encounter Lives with parents : (Added by MEGHNA Ramirez) Currently in 11th grade : (Added by [email or web address]) Sibling : (Added by MEGHNA [employer]) Pets/Animals: Dog (Added by [email or web address]) Pets/Animals: Cat (Added by [email or web address]) Review of Systems Review of Systems All other systems reviewed and are negative. Physical Exam ED Triage Vitals [03/16/24 0116] Temp Pulse Resp BP SpO2 36.7 ??C (98 ??F) 90 16 134/78 100 % Temp src Heart Rate Source Patient Position BP Location FiO2 (%) Oral -- -- -- -- Height Height Method Weight Weight Method -- -- (!) 153 kg (337 lb 4.9 oz) Standing scale Physical Exam Vitals and nursing note reviewed. Constitutional: Appearance: Normal appearance. She is well-developed. HENT: Head: Normocephalic and atraumatic. Nose: Nose normal. Mouth/Throat: Mouth: Mucous membranes are dry. Pharynx: No oropharyngeal exudate. Eyes: General: No scleral icterus. Extraocular Movements: Extraocular movements intact. Conjunctiva/sclera: Conjunctivae normal. Pupils: Pupils are equal, round, and reactive to light. Neck: Vascular: No JVD. Trachea: No tracheal deviation. Cardiovascular: Rate and Rhythm: Normal rate and regular rhythm. Heart sounds: Normal heart sounds. No murmur heard. No gallop. Pulmonary: Effort: Pulmonary effort is normal. Breath sounds: Normal breath sounds. No stridor. No wheezing, rhonchi or rales. Chest: Chest wall: No tenderness. Abdominal: General: Bowel sounds are normal. Palpations: Abdomen is soft. There is no mass. Tenderness: There is no abdominal tenderness. There is no guarding or rebound. Musculoskeletal: General: No tenderness. Normal range of motion. Cervical back: Normal range of motion and neck supple. Right lower leg: No edema. Left lower leg: No edema. Skin: General: Skin is warm and dry. Capillary Refill: Capillary refill takes less than 2 seconds. Neurological: General: No focal deficit present. Mental Status: She is alert and oriented to person, place, and time. Cranial Nerves: No cranial nerve deficit. Psychiatric: Mood and Affect: Mood normal. Behavior: Behavior normal. Thought Content: Thought content normal. Diff dx inc but not tovar to gastritis, enteritis, enteritis, colits, divert, infection inflammatory,dehydrwtion, abn electro, renal faiilure Labs Reviewed URINALYSIS AND REFLEX TO MICROSCOPIC AND CULTURE - Abnormal Result Value Color, ur Yellow Clarity, ur Clear Specific gravity, ur 1.012 pH, urine 5.0 Protein, ur ql Negative Glucose, ur ql Negative Ketones, ur Negative Bilirubin, ur Negative Blood, ur Trace (*) Urobilinogen, ur <2.0 Nitrite, ur Negative Leukocyte esterase, ur Negative UA reflex comment Reflex to microscopic UA will be performed. CBC WITH AUTO DIFFERENTIAL - Abnormal WBC 13.3 (*) Hgb 13.5 Hct 42.1 Plt 432 (*) MPV 9.0 (*) RBC 5.15 MCV 81.7 MCH 26.2 (*) MCHC 32.1 (*) RDW CV 13.5 RDW SD 39.8 NRBC abs 0.00 COMPREHENSIVE METABOLIC PANEL - Abnormal Sodium 138 Potassium, pl 3.8 Chloride 103 CO2 21 (*) Anion gap 14 BUN 8 Creatinine 0.70 Glucose 94 Calcium 9.4 Bilirubin, total 0.4 Protein, pl 7.9 Albumin 4.4 Alk phos 111 ALT 19 AST 23 DIFFERENTIAL AUTO - Abnormal Neutrophil abs 9.0 (*) Imm gran abs 0.1 Lymphocyte abs 3.0 Monocyte abs 0.9 (*) Eosinophil abs 0.3 Basophil abs 0.1 Neutrophil pct 67.1 Imm gran pct 1.0 Lymphocyte pct 22.2 Monocyte pct 6.8 Eosinophil pct 2.2 Basophil pct 0.7 URINALYSIS, MICROSCOPIC ONLY - Abnormal WBC, ur 0-5 RBC, ur 0-2 Epithelial cells, squamous, ur 1-5 Bacteria, ur Trace (*) Mucous, ur Present (*) Culture Reflex Comment Value: Reflex conditions for urine culture (WBC >10) not met. POCT HCG, URINE - Normal HCG, ur, POC Negative Lot Number [id number] QC Backgroud Clear Acceptable QC Control Line Acceptable STOOL CULTURE Direct Specimen Exam Value: Shiga Toxin Testing: Antigen detection assay for Shiga-toxin NEGATIVE for Shiga Toxin 1 and Shiga Toxin 2. Report Value: Final Report: No growth of enteric bacterial pathogens Narrative: Testing performed by [facility] ([phone]). Routine stool cultures include procedures to detect Salmonella, Shigella, Edwardsiella, Aeromonas, Pleisiomonas, Campylobacter, Yersinia, E. coli O157, and Shiga-like toxins. Vibrio is cultured only upon special request. If Vibrio is suspected, please call the laboratory at [phone]. Interpretive data was last updated October 01, 2016. LIPASE Lipase 25 EGFR eGFR >90 LEUKOCYTES, FECAL WBC, fecal No leukocytes CT Abdomen Pelvis W Contrast Final Result FINDINGS: LOWER CHEST: The lung bases are clear. LIVER: The liver is normal in attenuation without focal lesion. GALLBLADDER: No stones identified. Normal wall. No evidence of pericholecystic fluid. BILE DUCTS: No intrahepatic or extrahepatic ductal dilatation. PANCREAS: Normal. SPLEEN: The spleen is enlarged, unchanged. ADRENALS: Normal. KIDNEYS/URINARY TRACT: No identified significant cystic or solid masses. No visualized stones. No hydronephrosis or hydroureter. The bladder is Collapsed VASCULATURE: No acute abnormality seen. No abdominal aortic aneurysm. GI: The stomach appears normal. There is no significant small bowel dilation or visible thickening. There is fluid throughout the large bowel, unchanged. The appendix is normal. PERITONEUM/MESENTERY: No [...] - Electronically signed by Juany Salcido M.D. Work up c/w [persistant diarrheal illness, stool studies ordered, fluids and antiemetics given, elect reasonable, stable to treat as opt. Pepto-Bismol use as directed Metamucil to heaping tbsp in a glass of water twice a day Active culture yogurt 4 oz 4 times a day Probiotics to capsules 4 times a day Return to the emergency department if worsens Risk and comp of MDM moderate MDM Medical Decision Making Amount and/or Complexity of Data Reviewed Labs: ordered. Decision-making details documented in ED Course. Radiology: ordered. Decision-making details documented in ED Course. Risk Prescription drug management. Final diagnoses: Diarrhea, unspecified type Dehydration David Mishra Jr., MD 04/01/24 0811 NSION COURSE COUNSELOR * Chaya Castillo RN - 03/16/2024 1:15 AM CDT Patient arrives with reports of n/v/d x2 weeks. Ct on 03/05 showed a malabsorptive or secretory state. Has not followed up out patient yet. documented in this encounter Plan of Treatment Not on file documented as of this encounter Procedures Procedure Name Priority Date/Time Associated Diagnosis Comments LEUKOCYTES, FECAL Routine 03/16/2024 6:1 3 AM CDT STOOL CULTURE Routine 03/16/2024 6:[address] ABDOMEN PELVIS W CONTRAST ED 03/16/2024 2:39 AM CDT POCT HCG, URINE Routine 03/16/2024 1:46 AM CDT URINALYSIS AND REFLEX TO MICROSCOPIC AND CULTURE STAT 03/16/2024 1:43 AM CDT URINALYSIS, MICROSCOPIC ONLY STAT 03/16/2024 1:43 AM CDT EGFR STAT 03/16/2024 1:26 AM CDT DIFFERENTIAL AUTO STAT 03/16/2024 1:2 6 AM CDT CBC WITH AUTO DIFFERENTIAL STAT 03/16/2024 1:26 AM CDT LIPASE STAT 03/16/2024 1:26 AM CDT COMPREHENSIVE METABOLIC PANEL STAT 03/16/2024 1:26 AM CDT documented in this encounter Results * Leukocytes, fecal (03/16/2024 6:13 AM CDT) WBC, fecal No leukocytes No leukocytes Comment: Interpretive Data Testing performed by microsopy. Current Interpretive Data was last revised on 2022 Testing performed by: [facility], [address] [place]., [address] Stool 03/16/2024 6:13 AM CDT 03/16/2024 1:26 PM CDT us David Mishra Jr., MD LAB BODY FLUIDS AND STO OLS ORDERABLES Final Result FRAN [address] [facility] [place] [address] * Stool culture Stool Rectum (03/16/2024 6:13 AM CDT) Direct Specimen Exam Shiga Toxin Testing: Antigen detection assay for Shiga-toxin NEGATIVE for Shiga Toxin 1 and Shiga Toxin 2. Comment:Testing performed by : [facility], [address] [place] [address] Report Final Report: No growth of enteric bacterial pathogens FRAN Comment:Testing performed by : [facility], [address] [place] [address]., [id number] Stool (Rectum) 03/16/2024 6: 13 AM CDT 03/16/2024 1:23 PM CDT Narrative FRAN - 03/20/2024 9:50 AM CDT Testing performed by [facility] ([phone]). Routine stool cultures include procedures to detect Salmonella, Shigella, Edwardsiella, Aeromonas, Pleisiomonas, Campylobacter, Yersinia, E. coli O157, and Shiga-like toxins. ?? Vibrio is cultured only upon special request. ??If Vibrio is suspected, please call the laboratory at [phone]. Interpretive data was last updated October 01, 2016. us David Mishra Jr., MD LAB MICROBIOLOGY - GENE RAL ORDERABLES Final Result FRAN [address] [facility] [place] [address] * CT Abdomen Pelvis W Contrast (03/16/2024 [...] AM T: ??03/16/2024 3:23 AM Report ID: [id number] Reading Location: ??[id number] Procedure Note Juany Salcido MD - 03/16/2024 [...] by Juany Salcido M.D. SN: Report ID: [id number] Reading Location: [place] [address] David Mishra Jr., MD IMG CT PROCEDURES Final Result * POCT hCG, urine (03/16/2024 1:46 AM CDT) Pathologist [facility] HCG, ur, POC Negative Negative Lot Number [id number] QC Backgroud Clear Acceptable QC Control Line Acceptable Urine 03/16/2024 1:46 AM CDT David Mishra Jr., MD POINT OF CARE TEST ORDE CAMPBELL Final Result * (ABNORMAL) Urinalysis, microscopic only (03/16/2024 1:43 AM CDT) Pathologist [facility] WBC, ur 0-5 0 - 5 /HPF Comment:Testing performed by : [facility], [address] [place] [address]., [address] RBC, ur 0-2 0 - 2 /HPF FRAN HAYS Comment:Testing performed by : [address] [address] Epithelial cells, squamous, ur 1-5 0 - 5 /HPF FRAN HAYS Comment:Testing performed by : [address] [address] Bacteria, ur Trace(A) FRAN Comment:Testing performed by : [address] [address] Mucous, ur Present(A) FRAN HAYS Comment:Testing performed by : [address] [address] Culture Reflex Comment Reflex conditions for urine culture (WBC >10) not met. FRAN Comment:Testing performed by : [address] [address] Urine 03/16/2024 1:43 AM CDT 03/16/2024 1:54 AM CDT us David Mishra Jr., MD LAB URINE ORDERABLES Fi nal Result Performing Organization Address City/State/[facility] Co de Phone Number FRAN [address] [facility] Department [place] [address] * (ABNORMAL) Urinalysis reflex to microscopic and culture Urine (03/16/2024 1:43 AM CDT) Color, ur Yellow Yellow Comment:Testing performed by : [address] [address] Clarity, ur Clear Clear FRAN Comment:Testing performed by : [address] [address] Specific gravity, ur 1.012 1.003 - 1.030 FRAN Comment:Testing performed by : [address] [address] pH, urine 5.0 FRAN Comment: Interpretive Data ? Urine pH is affected by diet, medications, systemic acid-base disturbances, and renal tubular function. ??pH may affect urinary stone formation. ??For example, urine pH below 6.0 may help reduce the tendency for calcium phosphate stones and pH greater than 6.0 may reduce the tendency for uric acid stone formation. Source: [facility] [employer] Current Interpretive Data was last revised on 2017 Testing performed by: [address], [place]., [address] Protein, ur ql Negative Negative FRAN Comment:Testing performed by : [address], [place]., [address] Glucose, ur ql Negative Negative FRAN Comment:Testing performed by : [address], [place]., [address] Ketones, ur Negative Negative FRAN Comment:Testing performed by : [address], [place]., [address] Bilirubin, ur Negative Negative FRAN Comment:Testing performed by : [address], [place]., [address] Blood, ur Trace(A) Negative FRAN Comment:Testing performed by : [address], [place]., [address] Urobilinogen, ur <2.0 <2.0 mg/dL FRAN Comment:Testing performed by : [address], [place]., [address] Nitrite, ur Negative Negative FRAN Comment:Testing performed by : [address], [place]., [address] Leukocyte esterase, ur Negative Negative FRAN Comment:Testing performed by : [address], [place]., [address] UA reflex comment Reflex to microscopic UA will be performed. FRAN Comment:Testing performed by : [address], [place]., [address] Urine 03/16/2024 1:43 AM CDT 03/16/2024 1:54 AM CDT us David Mishra Jr., MD LAB MICROBIOLOGY - GENE RAL ORDERABLES Final Result FRAN HAYS [address] [facility] [place] [address] * eGFR (03/16/2024 1:26 AM CDT) eGFR [...] was last reviewed 2021. Testing performed by: [address] [address] Blood 03/16/2024 1:26 AM CDT 03/16/2024 1:44 AM CDT us David Mishra Jr., MD LAB BLOOD ORDERABLES Fi nal Result Performing Organization Address City/State/[facility] Co sd Phone Number [facility] [address] [facility] [place] [address] * (ABNORMAL) Differential, auto (03/16/2024 1:26 AM CDT) Neutrophil abs 9.0(H) 1.5 - 6.5 K/cumm Comment:Testing performed by : [address] [address] Imm gran abs 0.1 0.0 - 0.1 K/cumm FRAN HAYS Comment:Testing performed by : [address] [address] Lymphocyte abs 3.0 0.8 - 3.3 K/cumm CERNER Comment:Testing performed by : [address] [address] Monocyte abs 0.9(H) 0.2 - 0.8 K/cumm CERELDON Comment:Testing performed by : [address] [address] Eosinophil abs 0.3 0.0 - 0.5 K/cumm [facility] [place] Comment:Testing performed by : [address], [place]., [address] Basophil abs 0.1 0.0 - 0.1 K/cumm FRAN Comment:Testing performed by : [address] [address] Neutrophil pct 67.1 % [facility] [place] Comment: Interpretive Data Percent cell count reference ranges are not reported, since discordance with absolute values may lead to misinterpretation of CBC data. Current Interpretive Data was last revised on 2017. Testing performed by: [address] [address] Imm gran pct 1.0 % [facility] [place] Comment: Interpretive Data Percent cell count reference ranges are not reported, since discordance with absolute values may lead to misinterpretation of CBC data. Current Interpretive Data was last revised on 2017. Testing performed by: [address] [address] Lymphocyte pct 22.2 % [facility] Comment: Interpretive Data Percent cell count reference ranges are not reported, since discordance with absolute values may lead to misinterpretation of CBC data. Current Interpretive Data was last revised on 2017. Testing performed by: [address] [address] Monocyte pct 6.8 % CERNER Comment: Interpretive Data Percent cell count reference ranges are not reported, since discordance with absolute values may lead to misinterpretation of CBC data. Current Interpretive Data was last revised on 2017. Testing performed by: [address] [address] Eosinophil pct 2.2 % CERNER Comment: Interpretive Data Percent cell count reference ranges are not reported, since discordance with absolute values may lead to misinterpretation of CBC data. Current Interpretive Data was last revised on 2017. Testing performed by: [address] [address] Basophil pct 0.7 % FRAN Comment: Interpretive Data Percent cell count reference ranges are not reported, since discordance with absolute values may lead to misinterpretation of CBC data. Current Interpretive Data was last revised on 2017. Testing performed by: [address] [address] Blood 03/16/2024 1:26 AM CDT 03/16/2024 1:44 AM CDT David Mishra Jr., MD LAB BLOOD ORDERABLES Fi nal Result Performing Organization Address [facility] Co de Phone Number [address] [place] [address] * Lipase (03/16/2024 1:26 AM CDT) Pathologist [facility] Lipase 25 10 - 99 Units/L Comment:Testing performed by : [address] [address] Blood (Blood, Venous) 03/16/2024 1:26 AM CDT 03/16/2024 1:44 AM CDT David Mishra Jr., MD LAB BLOOD ORDERABLES Fi nal Result Performing Organization Address [facility]/ZIP Co de Phone Number [address] [place] [address] * (ABNORMAL) Comprehensive metabolic panel (03/16/2024 1:26 AM CDT) Sodium 138 135 - 145 mmol/L Comment:Testing performed by : [address] [address] Potassium, pl 3.8 3.3 - 4.9 mmol/L RFAN Comment:Testing performed by : [address], [place]., [address] Chloride 103 97 - 110 mmol/L FRAN Comment:Testing performed by : [address], [place]., [address] CO2 21(L) 22 - 32 mmol/L FRAN Comment:Testing performed by : [address], [place]., [address] Anion gap 14 2 - 15 mmol/L FRAN Comment:Testing performed by : [address] [address], [place]., [address] BUN 8 6 - 25 mg/dL FRAN Comment:Testing performed by : [address], [place]., [address] Creatinine 0.70 0.60 - 1.10 mg/dL FRAN Comment:Testing performed by : [address], [place]., [address] Glucose 94 70 - 199 mg/dL FRAN [...] classification and Diagnosis of Diabetes Diabetes Care 2021; 46: S19-S40. Current interpretive data was last revised 2022. Testing performed by: [address] [address] Calcium 9.4 8.5 - 10.3 mg/dL FRAN Comment:Testing performed by : [address] [address] Bilirubin, total 0.4 0.1 - 1.2 mg/dL FRAN Comment:Testing performed by : [address], [place]., [address] Protein, pl 7.9 6.5 - 8.5 g/dL FRAN Comment:Testing performed by : [address] [address] Albumin 4.4 3.5 - 5.0 g/dL FRAN HAYS Comment:Testing performed by : [address] [address] Alk phos 111 40 - 130 Units/L FRAN HAYS Comment:Testing performed by : [address] [address] ALT 19 7 - 45 Units/L FRAN HAYS Comment:Testing performed by : [address] [address] AST 23 10 - 45 Units/L FRAN HAYS Comment:Testing performed by : [address] [address] Blood 03/16/2024 1:26 AM CDT 03/16/2024 1:44 AM CDT us David Mishra Jr., MD LAB BLOOD ORDERABLES nal Result Performing Organization Address City/State/[facility] Co de Phone Number FRAN [address] [place] [address] * (ABNORMAL) CBC with auto differential (03/16/2024 1:26 AM CDT) [facility] WBC 13.3(H) 3.8 - 9.9 K/cumm Comment:Testing performed by : [address] [address] Hgb 13.5 11.9 - 15.5 g/dL FRAN HAYS Comment:Testing performed by : [address] [address] Hct 42.1 35.6 - 45.5 % FRAN HAYS Comment:Testing performed by : [address] [address] Plt 432(H) 150 - 400 K/cumm FRAN HAYS Comment:Testing performed by : [address] [address] MPV 9.0(L) 9.1 - 12.3 fL FRAN HAYS Comment:Testing performed by : [address] [address] RBC 5.15 3.90 - 5.20 M/cumm FRAN Comment:Testing performed by : [address] [address] MCV 81.7 81.3 - 96.4 fL FRAN Comment:Testing performed by : [address] [address] MCH 26.2(L) 27.1 - 33.3 pg FRAN Comment:Testing performed by : [address], [address] MCHC 32.1(L) 32.3 - 35.7 g/dL FRAN Comment:Testing performed by : [address], [address] RDW CV 13.5 11.1 - 14.9 % FRAN Comment:Testing performed by : [address], [address] RDW SD 39.8 35.7 - 48.1 fL FRAN Comment:Testing performed by : [address] [address] NRBC abs 0.00 0.00 - 0.01 K/cumm FRAN Comment:Testing performed by : [address], [address] Blood (Blood, Venous) 03/16/2024 1:26 AM CDT 03/16/2024 1:44 AM CDT David Mishra Jr., MD LAB BLOOD ORDERABLES nal Result FRAN [address] [facility] Department [place] [address] documented in this encounter Visit Diagnoses Diagnosis Diarrhea, unspecified type- Primary Dehydration documented in this encounter Administered Medications Inactive Administered Medications - up to 3 most recent administrations Medication Order MAR Action Action Date Dose Rate Site diphenhydrAMINE (BENADRYL) 50 mg/mL injection 50 mg 50 mg, intravenous, Administer over 2 Minutes, Once, On Sat03/16/24 at 0504, For 1 dose Given 03/16/2024 5:07 AM CDT 50 mg ioversoL (OPTIRAY 350) syringe 100 mL 100 mL, intravenous, Once in imaging, contrast, Starting on Sat03/16/24 at 0234, For 1 dose Contrast Given 03/16/2024 2:35 AM CDT 100 mL Left Forearm Lactated Ringer's (LR) bolus 1,000 mL 1,000 mL, intravenous, at 1,000 mL/hr, Administer over 1 Hours, Once, On Sat03/16/24 at 0301, For 1 dose New Bag 03/16/2024 3:12 AM CDT 1,000 mL 1000 mL/hr LORazepam (ATIVAN) 1 mg in sodium chloride 0.9% (further dilution required) injection 1 mg, intravenous, Once, On Sat03/16/24 at 0302, For 1 dose, Withdraw ordered dose amount then dilute with equal volume of 0.9% sodium chloride. Administer total volume to patient. Do not exceed a rate of 2 mg/minute. Given 03/16/2024 3:12 AM CDT 1 mg ondansetron (ZOFRAN) injection 8 mg 8 mg, intravenous, Administer over 2 Minutes, Once, On Sat03/16/24 at 0301, For 1 dose, Indications: Nausea, VomitingIndications:Na usea,Vomiting Given 03/16/2024 3:12 AM CDT 8 mg pantoprazole (PROTONIX) 80 mg in sodium chloride 0.9% 20 mL IV Syringe 80 mg, intravenous, at 600 mL/hr, Administer over 2 Minutes, Once, On Sat03/16/24 at 0302, For 1 dose, For IV administration, reconstitute 40 mg vial with 10 mL sodium chloride 0.9% for injection for a final concentration of 4 mg/mL, Indications: Treatment of Non-Bleeding Gastric DisorderIndications:Tr eatment of Non-Bleeding Gastric Disorder Given 03/16/2024 3:13 AM CDT 80 mg 600 mL/hr prochlorperazine (COMPAZINE) injection 10 mg 10 mg, intravenous, Administer over 2 Minutes, Once, On Sat03/16/24 at 0504, For 1 dose Given 03/16/2024 5:07 AM CDT 10 mg documented in this encounter Active and Recently Administered Medications Times are shown in CDT. Scheduled Medication Order 03/14/2024 03/15/2024 03/16/2024 diphenhydrAMINE (BENADRYL) 50 mg/mL injection 50 mg (COMPLETED) 50 mg, intravenous, Administer over 2 Minutes, Once, On Sat03/16/24 at 0504, For 1 dose 0507 (Given - Provid er: Adriana Mtz RN) Lactated Ringer's (LR) bolus 1,000 mL (COMPLETED) 1,000 mL, intravenous, at 1,000 mL/hr, Administer over 1 Hours, Once, On Sat03/16/24 at 0301, For 1 dose 031 (New Bag - Prov ider: Adriana Mtz RN)044 (Stopped - Provider: Adriana Mtz RN) LORazepam (ATIVAN) 1 mg in sodium chloride 0.9% (further dilution required) injection (COMPLETED) 1 mg, intravenous, Once, On Sat03/16/24 at 0302, For 1 dose, Withdraw ordered dose amount then dilute with equal volume of 0.9% sodium chloride. Administer total volume to patient. Do not exceed a rate of 2 mg/minute. 031 (Given - Provid er: Adriana Mtz RN) ondansetron (ZOFRAN) injection 8 mg (COMPLETED) 8 mg, intravenous, Administer over 2 Minutes, Once, On Sat03/16/24 at 0301, For 1 dose, Indications: Nausea, Vomiting 031 (Given - Provid er: Adriana Mtz RN) pantoprazole (PROTONIX) 80 mg in sodium chloride 0.9% 20 mL IV Syringe (COMPLETED) 80 mg, intravenous, at 600 mL/hr, Administer over 2 Minutes, Once, On Sat03/16/24 at 0302, For 1 dose, For IV administration, reconstitute 40 mg vial with 10 mL sodium chloride 0.9% for injection for a final concentration of 4 mg/mL, Indications: Treatment of Non-Bleeding Gastric Disorder 031 (Given - Provid er: Adriana Mtz RN) prochlorperazine (COMPAZINE) injection 10 mg (COMPLETED) 10 mg, intravenous, Administer over 2 Minutes, Once, On Sat03/16/24 at 0504, For 1 dose 050 (Given - Provid er: Adriana Mtz, KAYLEY) PRN Medication Order 03/14/2024 03/15/2024 03/16/2024 ioversoL (OPTIRAY 350) syringe 100 mL (COMPLETED) 100 mL, intravenous, Once in imaging, contrast, Starting on 03/16/24 at 0234, For 1 dose 0235 (Contrast Given - Provider: Milton Castillo, RT) documented in this encounter Orders Medications Ordered That Baldomero ht Not Have Been Administered Count Last Ordered Date First Ordered Date ondansetron (ZOFRAN) injection 4 mg 1 03/16 documented in this encounter Care Teams Engine Assembler Relationship Specialty Start Date End Date Lorie Vanessa NP [address] [place] [id number] PCP - General Family Practice 05/29/22 No, Physician 06/08/21 documented as of this encounter
--- OUTSIDE RECORDS SUMMARY | 2024-06-06 00:25 | XMS_ITS | Encounter Summary ---
Author Organization [facility] Healthcare Address [address] [place] [address] Care Team Providers Care Electro Mechanical Assembler Name Role Phone No, Physician Unavailable Lorie Vanessa NP Primary Care Provider [phone] Reason for Referral * Consultation (Routine) - Pending Review Specialty Diagnoses / Procedures Referred By Cyn burnett Referred To Contact Dermatology Diagnoses Rash and nonspecific skin eruption Brittany Frances NP [address] [facility] [address] [place] [address] Phone: tel: fax: Miguel Escalera MD [address] [place] [address] Phone: tel: fax: Referral ID Status Reason Start Date Expiration Date Visits Requested Visits Authorized [id number] Pending Review Specialty Services Required 06/24/2025 1 1 Question Answer Please select the performing region: External Order [171] To provider: MIGUEL ESCALERA [[id number]] # of visits: 1 TS INTERN Reason for Visit * Reason Comments Rash Rash on back of legs and both arms. Rash on legs and arms look different. C/o extreme itching. Saw derm on an E visit and tried steroids and antibiotics. Encounter Details Date Type Department Care Team (Late st Contact Info) Description 05/25/2024 3:00 PM EVENTS INTERN Office Visit [facility] at [address] [id number] Brittany Frances, MIXER OPERATOR HOT [employer]AL [address] [place] [address] [address] [place] [address] Rash and nonspecific skin eruption (Primary Dx) Social History Tobacco Use Types [...] on file Legal Sex Female 6:55 PM EVENTS INTERN Gender Identity Female 06/06/2022 7:40 AM EVENTS INTERN Sexual Orientation Not on file documented as of this encounter Last Filed Vital Signs Vital Sign Reading Time Taken Comments Blood Pressure 122/78 05/25/2024 3:08 PM EVENTS INTERN Pulse 114 05/25/2024 3:08 PM EVENTS INTERN Temperature 36.8 ??C (98.2 ??F) 05/25/2024 3:08 PM CS T Respiratory Rate 24 05/25/2024 3:08 PM EVENTS INTERN Oxygen Saturation 99% 05/25/2024 3:08 PM EVENTS INTERN Inhaled Oxygen Concentration - - Weight 155.6 kg (343 lb) 05/25/2024 3:08 PM EVENTS INTERN Height - - Body Mass Index 58.88 05/13/2024 1:57 PM EVENTS INTERN documented in this encounter Ordered Prescriptions Prescription Sig Dispense Quantity Refills Last Filled Start Date End Date hydrOXYzine (ATARAX) 25 mg tabletIndications: Rash and nonspecific skin eruption Take 2 tablets (50 mg total) by mouth every 6 (six) hours as needed for itching 40 tablet 05/25/2024 predniSONE (DELTASONE) 10 mg tabletIndications: Rash and nonspecific skin eruption Take 4 tabs days 1&2, 3 tabs days 3 & 4, 2 tabs days 5 & 6, 1 tab days 7-10. 22 tablet 05/25/2024 sulfamethoxazole-t rimethoprim (BACTRIM DS) 800-160 mg per tabletIndications: Rash and nonspecific skin eruption Take 1 tablet by mouth 2 (two) times a day for 10 days 20 tablet 05/25/2024 5 documented in this encounter Progress Notes * Brittany Frances, MIXER OPERATOR HOT METAL - 05/25/2024 3:00 PM CST Images from the original note were not included. Subjective/Objective Patient ID: Emily Hahn is a 28 y.o. female. Chief Complaint Rash (Rash on back of legs and both arms. Rash on legs and arms look different. C/o extreme itching. Saw derm on an E visit and tried steroids and antibiotics. ) 28 year old female patient presents today with complaints of rash on the back of her legs and both arms since February. Patient reports she initially felt that the reaction was possibly a reaction to the influenza vaccine. Patient reports she has been on doxycycline for the last 3 weeks. Reports shedid a telehealth visit was given a script for 3 months. Patient also reports she has taken a courseof prednisone and topical triamcinolone cream. Patient reports she is taking Atarax 50 mg every 4-6hours. Reports she has not seen Dermatology. Patient reports the rash continues to spread and is extremely itchy. Rash This is a new problem. The current episode started more than 1 month ago. The problem has been gradually worsening since onset. The affected locations include the torso, abdomen, left arm, left wrist, left hip, left buttock, left upper leg, right arm, right wrist, right hip, right buttock and rightupper leg. The rash is characterized by pain, redness, bruising, itchiness and scaling. She was exposed to nothing. Associated symptoms include fatigue. Pertinent negatives include no anorexia, congestion, cough, diarrhea, eye pain, facial edema, fever, joint pain, nail changes, rhinorrhea, shortness of breath, sore throat or vomiting. Review of Systems Constitutional: Positive for fatigue. Negative for fever. HENT: Negative for congestion, rhinorrhea and sore throat. Eyes: Negative for pain. Respiratory: Negative for cough and shortness of breath. Gastrointestinal: Negative for anorexia, diarrhea and vomiting. Musculoskeletal: Negative for joint pain. Skin: Positive for rash. Negative for nail changes. All other systems reviewed and are negative. Physical Exam Vitals reviewed. Constitutional: Appearance: Normal appearance. She is normal weight. HENT: Head: Normocephalic. Right Ear: External ear normal. Left Ear: External ear normal. Nose: Nose normal. Mouth/Throat: Mouth: Mucous membranes are moist. Eyes: Extraocular Movements: Extraocular movements intact. Cardiovascular: Rate and Rhythm: Normal rate. Pulses: Normal pulses. Pulmonary: Effort: Pulmonary effort is normal. Musculoskeletal: General: Normal range of motion. Cervical back: Normal range of motion. Skin: Capillary Refill: Capillary refill takes less than 2 seconds. Findings: Rash (small raised papular lesions with occasional scabbing) present. Neurological: General: No focal deficit present. Mental Status: She is alert and oriented to person, place, and time. Mental status is at baseline. Psychiatric: Mood and Affect: Mood normal. Behavior: Behavior normal. Thought Content: Thought content normal. Judgment: Judgment normal. Vitals: 05/25/24 1508 BP: 122/78 Pulse: 114 Resp: 24 Temp: 36.8 ??C (98.2 ??F) SpO2: 99% Weight: (!) 155.6 kg (343 lb) No results found. Past Medical History: Diagnosis Date Anxiety 2018 Asthma suspected, pending PFTs 2022 Brain concussion Depression 2018 Dysmenorrhea 2016 GERD (gastroesophageal reflux disease) Infection Constantly sick Irritable bowel syndrome Menstrual problem 2014 Migraines Motion sickness Nausea Polycystic ovary syndrome Postural orthostatic tachycardia syndrome (POTS) Seizures (HCC) History of febrile seizures as an infant/toddler Current Outpatient Medications: albuterol HFA (PROVENTIL HFA,VENTOLIN HFA,PROAIR HFA) 90 mcg/actuation inhaler, Inhale 2 puffs every 4 (four) hours as needed for wheezing or shortness of breath, Disp: 1 each, Rfl: 0 cetirizine (ZyrTEC) 10 mg chewable tablet, Take 4 tablets (40 mg total) by mouth daily Up to 40 daily PRN, Disp: , Rfl: cholecalciferol 25 mcg (1,000 unit) tablet, Take 1 tablet (1,000 Units total) by mouth daily, Disp:, Rfl: clonazePAM (KlonoPIN) 0.5 mg tablet, Take 1 tablet (0.5 mg total) by mouth daily as needed, Disp: ,Rfl: famotidine (PEPCID) 40 mg tablet, TAKE 1 TABLET(40 MG) BY MOUTH EVERY NIGHT NEEDED FOR HEARTBURN, Disp: 30 tablet, Rfl: 3 lamoTRIgine (LaMICtal) 100 mg tablet, Take 1 tablet (100 mg total) by mouth nightly, Disp: , Rfl: magnesium oxide (MAG-OX) 400 mg (241.3 mg elemental magnesium) tablet, TAKE 1 TABLET(400 MG) BY MOUTH DAILY, Disp: 90 tablet, Rfl: 1 metoclopramide (REGLAN) 10 mg tablet, Take 1 tablet (10 mg total) by mouth every 6 (six) hours, Disp: 30 tablet, Rfl: 2 ondansetron (ZOFRAN) 4 mg tablet, Take 1 tablet (4 mg total) by mouth every 6 (six) hours as neededfor nausea or vomiting, Disp: 20 tablet, Rfl: [address] (PROTONIX) 40 mg EC tablet, Take 1 tablet (40 mg total) by mouth daily, Disp: 30 tablet, Rfl: 3 phentermine (ADIPEX-P) 37.5 mg tablet, Take 1 tablet (37.5 mg total) by mouth daily before breakfast, Disp: 90 tablet, Rfl: 1 propranolol LA (INDERAL LA) 60 mg 24 hr capsule, Take 1 capsule (60 mg total) by mouth daily, Disp:90 capsule, Rfl: 0 sertraline (ZOLOFT) 100 mg tablet, Take 2 tablets (200 mg total) by mouth nightly, Disp: , Rfl: dicyclomine (BENTYL) 20 mg tablet, Take 1 tablet (20 mg total) by mouth every 6 (six) hours for 7 days (Patient not taking: Reported on 05/13/2024), Disp: 28 tablet, Rfl: 0 hydrOXYzine (ATARAX) 25 mg tablet, Take 2 tablets (50 mg total) by mouth every 6 (six) hours as needed for itching, Disp: 40 tablet, Rfl: 0 predniSONE (DELTASONE) 10 mg tablet, Take 4 tabs days 1&2, 3 tabs days 3 & 4, 2 tabs days 5& 6, 1 tab days 7-10., Disp: 22 tablet, Rfl: 0 sulfamethoxazole-trimethoprim (BACTRIM DS) 800-160 mg per tablet, Take 1 tablet by mouth 2 (two) times a day for 10 days, Disp: 20 tablet, Rfl: 0 triamcinolone (NASACORT) 55 mcg nasal inhaler, Administer 2 sprays into each nostril daily Can increase to twice daily if symptoms persist, Disp: 16.9 mL, Rfl: 11 Allergies Allergen Reactions Adhesive Itching and Rash [...] or 2 Frequency of Binge Drinking: Never Past Surgical History: Procedure Laterality Date BAND HEMORRHOIDECTOMY COLONOSCOPY ENDOMETRIAL BIOPSY ESOPHAGOGASTRODUODENOSCOPY Procedures Assessment/Plan No results found for this or any previous visit (from the past 4 hours). Diagnoses and all orders for this visit: Rash and nonspecific skin eruption (Primary) - sulfamethoxazole-trimethoprim (BACTRIM DS) 800-160 mg per tablet; Take 1 tablet by mouth 2 (two) times a day for 10 days - predniSONE (DELTASONE) 10 mg tablet; Take 4 tabs days 1&2, 3 tabs days 3 & 4, 2 tabs days5 & 6, 1 tab days 7-10. - hydrOXYzine (ATARAX) 25 mg tablet; Take 2 tablets (50 mg total) by mouth every 6 (six) hours as needed for itching - Ambulatory referral to Dermatology; Future Plan: Patient has multiple areas of scabbing with concern for secondary infection. We will treat patient with prednisone and Bactrim. Patient will stop the doxycycline. Discussed with patient importance of following up with Dermatology. Patient is requesting a refill on her Atarax. This is not appear to be contact dermatitis or secondary infection. Patient does not have any linear tracts to consider scabies. Patient denies any recent changes. Disposition Treatment plan including expectations, follow up, and return precautions discussed with patient/parent, verbalizes understanding. Medication dosage, use, and potential adverse reactions discussed with patient/parent. Advised to follow up with PCP if symptoms do not resolve as expected or sooner if condition worsens. Signs/symptoms warranting ER evaluation reviewed. Patient and/or guardian was given an opportunity to ask questions, questions answered. Brittany Frances NP TS INTERN documented in this encounter Plan of Treatment Scheduled Referrals Name Type Priority Associated Diagnoses Orde r Schedule Ambulatory referral to Dermatology Outpatient Referral Routine Rash and nonspecific skin eruption Expected: 06/08/2024 (Approximate), Expires: 05/25/2025 documented as of this encounter Visit Diagnoses Diagnosis Rash and nonspecific skin eruption- Primary Rash and other nonspecific skin eruption documented in this encounter Discontinued Medications Medication Sig Discontinue Reason Start Date End Da te promethazine-DM (PROMETHAZINE-DM) 1.25-3 mg/mL syrup TAKE 5 ML BY MOUTH EVERY 4 TO 6 HOURS FOR 7 DAYS Therapy completed 04/08/2024 05/25/2024 documented as of this encounter Care Teams Electro Mechanical Assembler Relationship Specialty Start Date End Date Lorie Vanessa NP [address] [place] [id number] PCP - General Family Practice 05/29/22 No, Physician 06/08/21 documented as of this encounter
--- OUTSIDE RECORDS SUMMARY | 2024-06-06 00:25 | XMS_ITS | Encounter Summary ---
Author Organization [facility] Healthcare Address [address] [place] [address] Care Team Providers Care Respiratory Therapy Instructor Name Role Phone No, Physician Unavailable Lorie Vanessa NP Primary Care Provider [phone] Encounter Details Date Type Department Care Team (Late st Contact Info) Description 04/03/2024 Patient Self-Triage [facility]/ Physicians [address] [place] [address] Mychart, Generic Provider [address] [place] [id number] Social History Tobacco Use Types Packs/Day [...] on file Legal Sex Female 6:55 PM BI REPORT DEVELOPER Gender Identity Female 06/06/2022 7:40 AM BI REPORT DEVELOPER Sexual Orientation Not on file documented as of this encounter Plan of Treatment Not on file documented as of this encounter Visit Diagnoses Not on filedocumented in this encounter Care Teams Respiratory Therapy Instructor Relationship Specialty Start Date End Date Lorie Vanessa NP [address] [place] [id number] PCP - General Family Practice 05/29/22 No, Physician 06/08/21 documented as of this encounter
--- OUTSIDE RECORDS SUMMARY | 2024-06-06 00:26 | XMS_ITS | Encounter Summary ---
Author Organization [facility] Healthcare Address [address] [place] [address] Care Team Providers Care Edge Inker Uppers Name Role Phone No, Physician Unavailable Lorie Vanessa NP Primary Care Provider [phone] Encounter Details Date Type Department Care Team (Late st Contact Info) Description 10/08/2023 11:30 AM CDT [facility] Building [address] [address] Secondary amenorrhea Social History Tobacco Use Types Packs/Day Years [...] making you feel afraid or unsafe? 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 Gender Identity Female 06/06/2022 7:40 AM AUTOMOBILE MECHANIC HELPER Sexual Orientation Not on file documented as of this encounter Plan of Treatment Not on file documented as of this encounter Procedures Procedure Name Priority Date/Time Associated Diagnosis Comments SEX HORMONE BINDING GLOBULIN Routine 10/08/2023 11:38 AM CDT Secondary amenorrhea 17 HYDROXYPROGESTERONE Routine 11:38 AM CDT Secondary amenorrhea PROLACTIN Routine 10/08/2023 11:38 AM CDT Secondary amenorrhea INSULIN, TOTAL Routine 10/08/2023 11:38 AM CDT Secondary amenorrhea DHEA-SULFATE Routine 10/08/2023 11:38 AM CDT Secondary amenorrhea ESTRADIOL Routine 10/08/2023 11:38 AM CDT Secondary amenorrhea RUBELLA IGG Routine 10/08/2023 11:38 AM CDT Secondary amenorrhea VARICELLA ZOSTER ANTIBODY, IGG Routine 10/08/2023 11:38 AM CDT Secondary amenorrhea TOTAL TESTOSTERONE Routine 10/08/2023 11 :38 AM CDT Secondary amenorrhea HEMOGLOBIN A1C Routine 10/08/2023 11:38 AM CDT Secondary amenorrhea LUTEINIZING HORMONE (LH) Routine 024 11:38 AM CDT Secondary amenorrhea FOLLICLE STIMULATING HORMONE Routine 10/08/2023 11:38 AM CDT Secondary amenorrhea documented in this encounter Results * Prolactin (10/08/2023 11:38 AM CDT) Prolactin 17.8 4.8 - 23.3 ng/mL Comment:Testing performed by : [facility], [address] [place]., [address] Blood 10/08/2023 11:3 8 AM CDT 10/08/2023 5:24 PM CDT Sita Lin MD LAB BLOOD ORDERABLES Final R esult Performing Organization Address [facility] de Phone Number JENN[address] [place] [employer] [place] [address] * Total testosterone (10/08/2023 11:38 AM CDT) Testosterone 29.90 8.40 - 48.10 ng/dL Blood 10/08/2023 11:3 8 AM CDT 10/08/2023 2:43 PM CDT Sita Lin MD LAB BLOOD ORDERABLES Final [facility] Performing Organization Address [facility] [place]/[facility] de Phone Number [address] [place] [employer] [place] [address] * 17-Hydroxyprogesterone (10/08/2023 11:38 AM CDT) 17-hydroxyprogestero ne <40 ng/dL [facility] Comment: REFERENCE VALUE < 80 (Follicular) <285 (Luteal) ADDITIONAL INFORMATION This test was developed and its performance characteristics determined by [facility] in a manner consistent with CLIA requirements. This test has not been cleared or approved by the U.S. Food and Drug Administration. Test Performed by: [facility] [address] [place] [address] Robotype Operator: Lexx Pierre M.D. Ph.D.; CLIA# [id number] Testing performed by: [facility], [address] [place] [address]., [address] Blood 10/08/2023 11:3 8 AM CDT 10/08/2023 1:50 PM CDT Sita Lin MD LAB BLOOD ORDERABLES Final R esult Performing Organization Address City/[facility]/ZIP Co de Phone Number FRAN [address] [place] [address] Power ref Lab * DHEA-sulfate (10/08/2023 11:38 AM CDT) DHEA-S 121.0 98.8 - 340.0 mcg/dL Comment:Testing performed by : [facility], [address] [place]., [address] Blood 10/08/2023 11:3 8 AM CDT 10/08/2023 5:24 PM CDT Sita Lin MD LAB BLOOD ORDERABLES Final R esult Performing Organization Address [facility] [place]/[facility] Co de Phone Number [address] [place] [address] * Insulin, total (10/08/2023 11:38 AM CDT) Insulin 18.5 2.6 - 25.0 mcIUnit/mL Blood 10/08/2023 11:3 8 AM CDT 10/08/2023 2:43 PM CDT Sita Lin MD LAB BLOOD ORDERABLES Final R esult JENNIFER[address] [place] [address] * Sex hormone binding globulin (10/08/2023 11:38 AM CDT) Sex steroid binding globulin 22.6 18.2 - 135.5 nmol/L [facility] Comment: Test Performed by: [facility] [address] [place] [address] Robotype Operator: Lexx Pierre M.D. Ph.D.; CLIA# [id number] Testing performed by: [address] [address] Blood 10/08/2023 11:3 8 AM CDT 10/08/2023 4:07 PM CDT Sita Lin MD LAB BLOOD ORDERABLES Final R esult Performing Organization Address [facility] de [place] Number [place] [phone] [facility] [place] [employer] [place] [address] Power ref Lab * Hemoglobin A1c (10/08/2023 11:38 AM CDT) Hgb A1C 5.3 4.0 - 5.6 % Comment:Testing performed by : [address] [address] Estimated Average Glucose 105 mg/dL FRAN Comment: The ADA recommends reporting an estimated Average Glucose (eAG) with all Hemoglobin A1c results using the equation derived from a study of 507 normal and diabetic adults. ??Minority populations were underrepresented and children were not included. ?? (Diabetes Care 31:2648-7136, 2008). ??The eAG is not equivalent to a fasting glucose. Testing performed by: [address] [address] Blood 10/08/2023 11:3 8 AM CDT 10/08/2023 1:50 PM CDT Sita Lin MD LAB BLOOD ORDERABLES Final R esult Performing Organization Address [facility] [place]/[facility] Co de Phone Number [facility] [address] [facility] [place] [address] * Rubella IgG antibody Blood (10/08/2023 11:38 AM CDT) Rubella IgG Reactive Reactive Blood 10/08/2023 11:3 8 AM CDT 10/08/2023 6:26 PM CDT Sita Lin MD LAB MICROBIOLOGY - GENERAL O RDERABLES Final Result Performing Organization Address [facility] Co de Phone Number [address] [place] [address] * Varicella Zoster IgG antibody Blood (10/08/2023 11:38 AM CDT) Pathologist [facility] IgG Reactive Reactive Comment: Reactive: Results suggest response to immunization or prior exposure to the virus. Testing performed by: [facility], [address] [place]., [address] Blood 10/08/2023 11:3 8 AM CDT 10/08/2023 5:24 PM CDT Sita Lin MD LAB MICROBIOLOGY - GENERAL O RDERABLES Final Result Performing Organization Address [facility] [place]/[facility] Co de Phone Number [address] [place] [address] * Follicle stimulating hormone (10/08/2023 11:38 AM CDT) Pathologist [facility] FSH 4.7 1.5 - 12.4 IUnits/L Blood 10/08/2023 11:3 8 AM CDT 10/08/2023 2:43 PM CDT Sita Lin MD LAB BLOOD ORDERABLES Final R esult Performing Organization Address [facility] [place]/[facility] Co de Phone Number [address] [address] * LH (10/08/2023 11:38 AM CDT) LH 4.7 mIUnits/mL Comment: Interpretive Data Males: ??Adults: ? 1.7 - 8.6 ?? IUnits/L Females: ?Follicular: ? 2.4 - 12.6 ??IUnits/L ??Ovulation: ? 14.0 - 95.6 ??IUnits/L ?Luteal: ? 1.0 - 11.4 ??IUnits/L ??Postmenopausal: 7.7 - 58.5 ??IUnits/L Current interpretive data was last revised on 2018. Blood 10/08/2023 11:3 8 AM CDT 10/08/2023 2:43 PM CDT us Sita Lin MD LAB BLOOD ORDERABLES Final R esult FRAN [address] [facility] Department [place] [address] * Estradiol (10/08/2023 11:38 AM CDT) Estradiol 33.9 pg/mL Comment: Interpretive Data Male: ?11 - 43 pg/mL Female: ??Follicular ? 31 - 90 pg/mL ??Ovulation ?60 - 533 pg/mL ??Luteal ? 60 - 232 pg/mL ??Postmenopausal ?? < 50 ??pg/mL Patients treated with Fluvestrant (Faslodex) should be tested using an alternate assay such as LC-MS. Contact the [facility], , to request analysis by LC-MS. Current interpretive data was last revised 2020. Blood 10/08/2023 11:3 8 AM CDT 10/08/2023 2:43 PM CDT Narrative FRAN - 10/08/2023 3:10 PM CDT Is patient taking Fulvestrant?->No us Sita Lin MD LAB BLOOD ORDERABLES Final R esult FRAN [address] [facility] Department [place] [address] documented in this encounter Visit Diagnoses Diagnosis Secondary amenorrhea Absence of menstruation documented in this encounter Care Teams Edge Inker Uppers Relationship Specialty Start Date End Date Lorie Vanessa NP [address] [place] [address] PCP - General Family Practice 05/29/22 No, Physician 06/08/21 documented as of this encounter
--- OUTSIDE RECORDS SUMMARY | 2024-06-06 00:26 | XMS_ITS | Encounter Summary ---
Author Organization [facility] Address [address] [place] [address] Phone Care Team Providers Care Protective Officer Name Role Phone No, Physician Unavailable Lorie Vanessa NP Primary Care Provider [phone] Encounter Details Date Type Department Care Team (Late st Contact Info) Description 07/22/2023 Telephone [facility] Allergy and Immunology [address] [facility] [address] [place] [address] Aimee Amaro Social History Tobacco Use Types Packs/Day Years [...] on file 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 PHONED PT @ [phone] @ 10:20 AM, LFT MSG STATING TO CALL NURSE COORDINATOR TO SCHEDULE CT. MACHINE OPERATOR documented in this encounter Plan of Treatment Not on file documented as of this encounter Visit Diagnoses Not on filedocumented in this encounter Care Teams Protective Officer Relationship Specialty Start Date End Date Lorie Vanessa NP [address] [place] [id number] PCP - General Family Practice 05/29/22 No, Physician 06/08/21 documented as of this encounter
--- OUTSIDE RECORDS SUMMARY | 2024-06-06 00:26 | XMS_ITS | Encounter Summary ---
Author Organization [facility] Healthcare Address [address] [place] [address] Care Team Providers Care Supervisor Packing Name Role Phone No, Physician Unavailable Lorie Vanessa NP Primary Care Provider [phone] Reason for Referral * Diagnostic Imaging (Routine) - Pending Review Specialty Diagnoses / Procedures Referred By Contac t Referred To Contact Diagnoses Pelvic and perineal pain Procedures US Pelvis W Endovaginal Sita Lin MD [address] [place] [address] Phone: tel: fax: [address] [address] Referral ID Status Reason Start Date Expiration Date V isits Requested Visits Authorized [id number] Pending Review 11/04/2023 12/03/2024 1 1 Reason for Visit * Diagnostic Imaging (Routine) - Pending Review Specialty Diagnoses / Procedures Referred By Contjonathan t Referred To Contact Diagnoses Pelvic and perineal pain Procedures US Pelvis W Endovaginal Sita Lin MD [address] [place] [address] Phone: tel: fax: 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 Gender Identity Female 06/06/2022 7:40 AM FOREST TECHNICIAN Sexual Orientation Not on file documented as [...] daily as needed famotidine (PEPCID) 40 mg tabletIndications: Gastroesophageal reflux disease without esophagitis TAKE 1 TABLET(40 MG) BY MOUTH EVERY NIGHT NEEDED FOR HEARTBURN 30 tablet 3 05/22/2023 lamoTRIgine (LaMICtal) 100 mg tablet Take 1 tablet (100 mg total) by mouth nightly 12/28/[address] (PROTONIX) 40 mg EC tabletIndications: Nausea,Right upper quadrant pain,Gastroesophag eal reflux disease without esophagitis Take 1 tablet (40 mg total) by mouth daily 30 tablet 3 07/23/2023 sertraline (ZOLOFT) 100 mg tablet Take 2 tablets (200 mg total) by mouth nightly triamcinolone (NASACORT) 55 mcg nasal inhalerIndications :Allergic Rhinitis,Chronic Non-Allergic Rhinitis Administer 2 sprays into each nostril daily Can increase to twice daily if symptoms persist 16.9 mL 11 09/04/2022 cromolyn (GASTROCROM) 100 mg/5 mL solutionIndication s:systemic mastocytosis Take 10 mL (200 mg total) by mouth 4 (four) times a day before meals and nightly 1200 mL 11 12/03/2022 4 magnesium oxide (MAG-OX) 400 mg (241.3 mg elemental magnesium) tablet TAKE 1 TABLET(400 MG) BY MOUTH DAILY 30 tablet 3 10/14/2023 4 medroxyPROGESTERon e (PROVERA) 10 mg tablet Take 1 tablet (10 mg total) by mouth daily Take 10 day course every 4-6 weeks 10 tablet 3 05/21/2023 4 ondansetron (ZOFRAN) 8 mg tabletIndications: Nausea Take 1 tablet (8 mg total) by mouth every 6 (six) hours as needed for nausea or vomiting 30 tablet 07/23/2023 4 propranolol LA (INDERAL LA) 60 mg 24 hr capsule TAKE 1 CAPSULE(60 MG) BY MOUTH DAILY 90 capsule 11/06/2023 4 sucralfate (CARAFATE) 1 gram tabletIndications: Nausea and vomiting, unspecified vomiting type,Abdominal pain Take 1 tablet (1 g total) by mouth 4 (four) times a day Take 1 hour before meals and at bedtime 120 tablet 3 01/03/2023 4 documented as of this encounter Discharge Disposition Disposition Code Departure Means Destination Discharge to home or self care documented in this encounter Plan of Treatment Not on file documented as of this encounter Procedures Procedure Name Priority Date/Time Associated Diagnosis Comments US PELVIS W ENDOVAGINAL Schedule Routine, Read Routine (OP Routine) 11/07/2023 1:35 PM CDT Pelvic and perineal pain documented in this encounter Results * US Pelvis W Endovaginal (11/07/2023 1:35 PM CDT) Anatomical Region Laterality Modality Pelvis N/A Ultrasound 11/07/2023 2:30 PM CDT Narrative 11/07/2023 2:33 PM CDT EXAM DESCRIPTION: US PELVIS W ENDOVAGINAL . REASON FOR STUDY: Pelvic pain. TECHNIQUE: Grayscale and color Doppler sonographic imaging of the pelvis using both transabdominal and transvaginal probes. COMPARISON: None. FINDINGS: The uterus is anteverted and normal in echogenicity measuring 2.5 x 3.4 x 7.0 cm. The endometrium measures ??0.4 ??cm. The right ovary is normal in echogenicity measuring ??2.2 x 1.9 x 3.1 ??cm. ?? There is normal color Doppler flow to the right ovary. The left ovary is normal in echogenicity measuring ??2.4 x 2.3 x 3.7 ??cm. ?? There is normal color Doppler flow to the left ovary. There are no suspicious adnexal lesions. There is no abnormal free pelvic fluid. IMPRESSION: No specific findings to account for the patient's symptoms. THIS IS AN ELECTRONICALLY VERIFIED FINAL REPORT 11/07/2023 2:33 PM - Electronically signed by ??Erasmo Gregory M.D. SN: D: ??11/07/2023 2:33 PM T: ??11/07/2023 2:33 PM Report ID: [id number] Reading Location: ??[id number] Procedure Note Erasmo Gregory MD - 11/07/2023 EXAM DESCRIPTION: US PELVIS W ENDOVAGINAL . REASON FOR STUDY: Pelvic pain. TECHNIQUE: Grayscale and color Doppler sonographic imaging of the pelvisusing both transabdominal and transvaginal probes. COMPARISON: None. FINDINGS: The uterus is anteverted and normal in echogenicity measuring2.5 x 3.4 x 7.0 cm. The endometrium measures 0.4 cm. The right ovary is normal in echogenicity measuring 2.2 x 1.9 x 3.1 cm. There is normal color Doppler flow to the right ovary. The left ovary is normal in echogenicity measuring 2.4 x 2.3 x 3.7 cm. There is normal color Doppler flow to the left ovary. There are no suspicious adnexal lesions. There is no abnormal free pelvic fluid. IMPRESSION: No specific findings to account for the patient's symptoms. THIS IS AN ELECTRONICALLY VERIFIED FINAL REPORT 11/07/2023 2:33 PM - Electronically signed by Erasmo Gregory M.D. SN: SN Report ID: [id number] Reading Location: [id number] Sita Lin MD IMG US PROCEDURES Final Resu lt documented in this encounter Visit Diagnoses Diagnosis Pelvic and perineal pain documented in this encounter Care Teams Supervisor Packing Relationship Specialty Start Date End Date Lorie Vanessa NP [address] [place] [id number] PCP - General Family Practice 05/29/22 No, Physician 06/08/21 documented as of this encounter
--- OUTSIDE RECORDS SUMMARY | 2024-06-06 00:26 | XMS_ITS | Encounter Summary ---
Author Organization [facility] Healthcare Address [address] [place] [address] Care Team Providers Care Pot Fireman Name Role Phone No, Physician Unavailable Lorie Vanessa NP Primary Care Provider Encounter Details Date Type Department Care Team (Late st Contact Info) Description 12/20/2023 Patient Self-Triage [facility] HealthCare/ Physicians [address] [place] [address] Mychart, Generic Provider [address] [place] [address] Social History Tobacco Use Types Packs/Day [...] on file Legal Sex Female 6:55 PM GUIDE TRAVEL Gender Identity Female 06/06/2022 7:40 AM GUIDE TRAVEL Sexual Orientation Not on file documented as of this encounter Plan of Treatment Not on file documented as of this encounter Visit Diagnoses Not on filedocumented in this encounter Care Teams Pot Fireman Relationship Specialty Start Date End Date Lorie Vanessa NP [address] [place] [address] PCP - General Family Practice 05/29/22 No, Physician 06/08/21 documented as of this encounter
--- OUTSIDE RECORDS SUMMARY | 2024-06-06 00:26 | XMS_ITS | Encounter Summary ---
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 Gender Identity Female 06/06/2022 7:40 AM PHARMACY DATA ANALYST Sexual Orientation Not on file documented as of this encounter Plan of Treatment Not on file documented as of this encounter Procedures Procedure Name Priority Date/Time Associated Diagnosis Comments THYROID FUNCTION CASCADE Routine 10/08/2023 11:42 AM CDT Morbid obesity with BMI of 50.0-59.9, adult (HCC) VITAMIN D 25 HYDROXY Routine 10/08/2023 11:42 AM CDT Vitamin D deficiency LIPID PANEL Routine 10/08/2023 11:42 AM CDT Lipid screening documented in this encounter Results * Thyroid Function [place] (10/08/2023 11:42 AM CDT) TSH 1.42 0.30 - 4.20 mcIUnit/mL Comment:Testing performed by : [facility], [address] [place] [address]., [address] Blood 10/08/2023 11:4 2 AM CDT 10/08/2023 1:50 PM CDT us Lorie Vanessa NP LAB BLOOD ORDERABLES Final Resul t [facility] [address] Department [place] [address] * (ABNORMAL) Lipid panel (10/08/2023 11:42 AM CDT) Cholesterol 179 30 - 199 mg/dL Comment: Interpretive Data Ages < or = 19 years ??Acceptable: ? <170 mg/dL ??Borderline high: ??170-199 mg/dL ??High: ? >or= 200 mg/dL Ages > or = 20 years ??Desirable: ?<200 mg/dL ??Borderline high: ??200-239 mg/dL ??High: ? >or= 240 mg/dL Literature References: 1. Expert Panel on Integrated Guidelines for Cardiovascular Health and Risk Reduction in Children and Adolescents. Pediatrics 2011;128:S213 2. NCEP Expert Panel. Circulation 2004;110:227 Current Interpretive Data was last revised on 2018. Testing performed by: [address] [address] Triglycerides 196(H) <=149 mg/dL FRAN Comment: Interpretive Data Ages < or = 9 years ??Acceptable: ? <75 mg/dL ??Borderline high: ??75-99 mg/dL ??High: ? >or= 100 mg/dL Ages 10 to 20 years ??Acceptable: ? <90 mg/dL ??Borderline high: ??90-129 mg/dL ??High: ? >or= 130 mg/dL Ages > or = 20 years ??Desirable: ?<150 mg/dL ??Borderline high: ??150-199 mg/dL ??High: ? 200-499 mg/dL ?Very high: ?? >or= 499 mg/dL Literature References: 1. Expert Panel on Integrated Guidelines for Cardiovascular Health and Risk Reduction in Children and Adolescents. Pediatrics 2011;128:S213 2. NCEP Expert Panel. Circulation 2004;110:227 Current Interpretive Data was last revised on 2018. Testing performed by: [address] [address] HDL 33(L) >=40 mg/dL FRAN Comment: Interpretive Data Ages < or = 19 years ??Acceptable: ? >45 mg/dL ??Borderline low: ?? 40-45 mg/dL ??Low: ? <40 mg/dL Ages > or = 20 years ??Desirable: ?>or= 60 mg/dL ??Low: ? <40 mg/dL Literature References: 1. Expert Panel on Integrated Guidelines for Cardiovascular Health and Risk Reduction in Children and Adolescents. Pediatrics 2011;128:S213 2. NCEP Expert Panel. Circulation 2004;110:227 Current Interpretive Data was last revised on 2018. Testing performed by: [address] [address] LDL, calculated 107 <=129 mg/dL [facility] Comment: Interpretive Data Ages < or = 19 years ??Acceptable: ? <110 mg/dL ??Borderline high: ??110-129 mg/dL ??High: ?>or= 130 mg/dL Ages > or = 20 years ??Optimal: ? <100 mg/dL ??Near optimal: ?100-129 mg/dL ??Borderline high: ?? 130-159 mg/dL ??High: ?>160 mg/dL Literature References: 1. Expert Panel on Integrated Guidelines for Cardiovascular Health and Risk Reduction in Children and Adolescents. Pediatrics 2011;128:S213 2. NCEP Expert Panel. Circulation 2004;110:227 Current Interpretive Data was last revised on 2018. Testing performed by: [address] [address] Non-HDL Cholesterol 146 mg/dL [facility] Comment: Interpretive Data Ages < or = 19 years ??Acceptable: ?<120 mg/dL ??Borderline high: ??120-144 mg/dL ??High: ?>145 mg/dL Ages > or = 20 years ??When triglycerides are >200 mg/dL, Non-HDL cholesterol is a secondary target of ? therapy with treatment goals that are 30 mg/dL greater than the LDL cholesterol target. ? Literature References: 1. Expert Panel on Integrated Guidelines for Cardiovascular Health and Risk Reduction in Children and Adolescents. Pediatrics 2011;128:S213 2. NCEP Expert Panel. Circulation 2004;110:227 Current Interpretive Data was last revised on 2018. Testing performed by: [facility], [address] [place] [address]., [address] Chol/HDL ratio 5 FRAN Comment:Testing performed by : [facility], [address] [place] [address]., [address] Blood 10/08/2023 11:4 2 AM CDT 10/08/2023 1:50 PM CDT us Lorie Vanessa WINE CELLAR STOCK CLERK LAB BLOOD ORDERABLES Final Resul t Performing Organization Address City/[facility]/ZIP Co de Phone Number [address] [place] [address] * Vitamin D 25 hydroxy (10/08/2023 11:42 AM CDT) Vitamin D 25-OH 35.0 30.0 - 80.0 ng/mL Blood 10/08/2023 11:4 2 AM CDT 10/08/2023 2:43 PM CDT us Lorie Vanessa WINE CELLAR STOCK CLERK LAB BLOOD ORDERABLES Final Resul t Performing Organization Address City/[facility] Co de Phone Number [address] [address] documented in this encounter Visit Diagnoses Diagnosis Vitamin D deficiency Lipid screening Screening for lipoid disorders Morbid obesity with BMI of 50.0-59.9, adult (HCC) documented in this encounter Care Teams Black And White Printer Operator Relationship Specialty Start Date End Date Lorie Vanessa NP [address] [place] [address] PCP - General Family Practice 05/29/22 No, Physician 06/08/21 documented as of this encounter
--- OUTSIDE RECORDS SUMMARY | 2024-06-06 00:26 | XMS_ITS | Encounter Summary ---
Author Organization [facility] Healthcare Address [address] [place] [address] Care Team Providers Care Variety Saw Operator Name Role Phone No, Physician Unavailable Lorie Vanessa NP Primary Care Provider [phone] Encounter Details Date Type Department Care Team (Late st Contact Info) Description 09/25/2023 Patient Self-Triage [facility] HealthCare/ Physicians [address] [place] [address] Mychart, Generic Provider [address] [place] [address] Social History Tobacco Use Types Packs/Day [...] on file Legal Sex Female 6:55 PM SUPERVISOR BLOOD DONOR RECRUITERS Gender Identity Female 06/06/2022 7:40 AM SUPERVISOR BLOOD DONOR RECRUITERS Sexual Orientation Not on file documented as of this encounter Plan of Treatment Not on file documented as of this encounter Visit Diagnoses Not on filedocumented in this encounter Care Teams Variety Saw Operator Relationship Specialty Start Date End Date Lorie Vanessa NP [address] [place] [address] PCP - General Family Practice 05/29/22 No, Physician 06/08/21 documented as of this encounter
--- OUTSIDE RECORDS SUMMARY | 2024-06-06 00:26 | XMS_ITS | Encounter Summary ---
Author Organization [facility] Healthcare Address [address] [place] [address] Care Team Providers Care Outsole Paraffiner Name Role Phone No, Physician Unavailable Lorie Vanessa NP Primary Care Provider [phone] Encounter Details Date Type Department Care Team (Late st Contact Info) Description 10/08/2023 Orders Only [facility] Medical Group Primary Care at [place] [address] [facility] [address] [place] [address] Lorie Vanessa NP [facility] [address] Social History Tobacco Use Types [...] on file Legal Sex Female 6:55 PM DOLL MAKER Gender Identity Female 06/06/2022 7:40 AM DOLL MAKER Sexual Orientation Not on file documented as of this encounter Plan of Treatment Not on file documented as of this encounter Visit Diagnoses Not on filedocumented in this encounter Discontinued Medications Medication Sig Discontinue Reason Start Date End Da te dicyclomine (BENTYL) 20 mg tablet TAKE 1 TABLET BY MOUTH FOUR TIMES DAILY NEEDED FOR ABDOMINAL DISCOMFORT Other 04/07/2023 10/08/2023 documented as of this encounter Care Teams Outsole Paraffiner Relationship Specialty Start Date End Date Lorie Vanessa NP [address] [place] [address] PCP - General Family Practice 05/29/22 No, Physician 06/08/21 documented as of this encounter
--- OUTSIDE RECORDS SUMMARY | 2024-06-06 00:26 | XMS_ITS | Encounter Summary ---
Author Organization [facility] Healthcare Address [address] [place] [address] Care Team Providers Care Business Planning Manager Name Role Phone No, Physician Unavailable Lorie Vanessa NP Primary Care Provider [phone] Reason for Visit * Reason Comments PT Treatment * Consultation (Routine) - Authorized Specialty Diagnoses / Procedures Referred By Cyn burnett Referred To Contact Physical Therapy Diagnoses Low back pain, unspecified back pain laterality, unspecified chronicity, unspecified whether [place] [address] [address] [facility] [address] [address] Phone: tel: fax: [address] [address] Referral ID Status Reason Start Date Expiration Date Visits Requested Visits Authorized [id number] Authorized Evaluate and Treat 07/01/2023 07/30/2024 9 9 Encounter Details Date Type Department Care Team (Late st Contact Info) Description 07/24/2023 5:15 PM NEONATOLOGIST Therapy [facility] Physical Therapy [address] [place] [phone] Jodi Gan PT Low back pain, unspecified back pain laterality, unspecified chronicity, unspecified whether sciatica present (Primary Dx) Social History Tobacco Use Types [...] on file Legal Sex Female 6:55 PM NEONATOLOGIST Gender Identity Female 06/06/2022 7:40 AM NEONATOLOGIST Sexual Orientation Not on file documented as of this encounter Progress Notes * Jodi Gan, PT - 07/24/2023 5:15 PM CST Images from the original note were not included. Physical Therapy Visit PT Daily Treatment Note 07/24/2023 Emily Guerrier 1995 ICD-9-CM ICD-10-CM 1. Low back pain, unspecified back pain laterality, unspecified chronicity, unspecified whether sciatica present 724.2 M54.50 Precautions: ADJUSTOR: SAMMY TURNER PHONE NUMBER: [phone] CLAIM #: [id number] DATE OF INJURY: 01/20/2023 VISIT LIMIT: 9 VISITS 07/02/2023 SPECIAL INSTRUCTIONS: FAX NOTES TO ADJUSTOR AND [facility] AFTER EVERY VISIT Climbin-25% Grasping, Pinching, Holdin-25% Lifting or Carryin-25% Pushing or Pullin-25% Reaching Overhead: 0-25% Sittin-25% Squatting, Bending, Kneelin-25% Standin-75% Walking or Movin-75% Weights Lifted: 10-35 lbs. Visit Info Next MD Visit: 08/21/23 Progress Report Completed: none Progress Report Due: visit Start Time: 1716 End Time: 1755 Patient ID verified. Subjective: Emily Guerrier states that she is feeling good today and flet good following her previous visit. Patient states I'm going to try to call my doctor that I have been working with and tell her I'm done with this light duty thing. Pain: 0/10 low back Objective: Patient is able to increase weight of chest press to 7 lbs. with sit <> stands plus added chest press. Treatment Provided: See flowsheet below Treatments 07/17/23 07/19/23 07/22/23 07/24/23 Visit Number 07/05 08/02 09/02 10/02 Arm bike (Seat 8) Level 4, x2 minutes forward revolutions & 2 minutes backward revolutions Level 4, x2 minutes forward revolutions & 2 minutes backward revolutions Treadmill walking on incline 1.0% incline, 2.0 mph, x5 minutes 1.0% incline, 2.5 mph, x5 minutes Posterior pelvic tilts X20 - reviewed for HEP Gluteal setting 20x3 hold Transverse abdominis isometrics 10x10 hold Transverse abdominis isometrics with alternating UE lifts 2x10 each ANA 2x10 each ANA 2x10 each ANA Low abdominal marching 2x10 each ANA 2x10 each ANA 2x10 each ANA 2x10 each ANA Deadbug marching X10 each ANA Bent knee fall outs X20 each ANA - reviewed for HEP Hip abduction isometrics 20x5 hold, Blue theraband 20x5 hold, Blue theraband Bridges 3x10, Green theraband around knees Clamshells (hips flexed) 2x12 each ANA 2x12 each ANA 2x12 each ANA, Yellow Clamshells (hips neutral) 2x12 each ANA, Yellow Pallof press 2x10 each ANA, Green X10 each, ANA, doubled Green X10 each, ANA, doubled Green X15 each, ANA, single Blue Sit <> stand from plinth 18 plinth, 3x10 with added chest press (5# medicine ball) 17 plinth, 3x10 with added chest press (5# medicine ball) 17 plinth, 3x10 with added chest press (7# medicine ball) Theraband rows with alternating LE march 2x10 each ANA, Green Theraband shoulder extension with ANA shoulder external rotation 2x10, Red 2x10, Red ANA leg press (Seat 3, Plate 8) 3x10, 75# HEP = home exercise program Home Exercise Program: 07/16/2023: posterior pelvic tilts, transverse abdominis isometrics, bent knee fall outs 07/17/23: Gluteal setting 07/19/23: Low abdominal marching 07/24/23: Clamshells (hips flexed), hip abduction isometrics Assessment: Emily Guerrier displays appropriate level of difficulty with core stability progressions this visit. Continues to display improved functional squat mechanics with sit <> stands from plinth and is able to progress Pallof press resistance this date with appropriate level of challenge. Patient demonstrates appropriate level of fatigue following treatment session and will benefitfrom further progression as tolerated. Patient Response to Treatment: Patient tolerates treatment well this visit. Rehab Prognosis/Potential: good. Patient would benefit from continued skilled Physical Therapy. Goals STG to be met by 08/06/2023 1) Patient will increase lumbar extension active ROM to > or equal to 75% for improved toleranceto lifting tasks. - Ongoing 2) Patient will report pain at worst as < or equal to 4/10 for reduced discomfort with functional mobility tasks & ADLs. - Ongoing 3) Patient will report ability to stand for > or equal to 30 minutes without back pain > 2/10for improved tolerance to prolonged positioning when performing work tasks. - Ongoing LTG to be met by discharge 1) Patient independent with home exercise program - Ongoing 2) Patient to improve function on Revised Oswestry to 19% or less - Ongoing 3) Patient will return to completing her occupational demands without limitation due to her currentsubjective complaints. - Ongoing Plan: Next visit consider band walks, increase weight with leg press as tolerated, body blade, alternating quadruped lower extremity raises, floor to waist lifting Jodi Gan PT Time Calculator Time-Based Code Calculator Minutes for Ther Ex/Ther Procedure (58857):: 39 minutes Timed Code Treatment Minutes:: 39 minutes Total Treatment Time: 39 ATOLOGIST documented in this encounter Plan of Treatment Not on file documented as of this encounter Visit Diagnoses Diagnosis Low back pain, unspecified back pain laterality, unspecified chronicity, unspecified whether sciatica present- Primary documented in this encounter Care Teams Business Planning Manager Relationship Specialty Start Date End Date Lorie Vanessa NP [address] [place] [address] PCP - General Family Practice 05/29/22 No, Physician 06/08/21 documented as of this encounter
--- OUTSIDE RECORDS SUMMARY | 2024-06-06 00:26 | XMS_ITS | Encounter Summary ---
Author Organization [facility] Address [address] [place] [address] Phone Care Team Providers Care Autism Specialist Name Role Phone No, Physician Unavailable Lorie Vanessa NP Primary Care Provider [phone] Encounter Details Date Type Department Care Team (Late st Contact Info) Description 07/31/2023 Telephone [facility] Allergy and Immunology [address] [facility] [address] [place] [address] Aimee Amaro Social History Tobacco [...] on file Legal Sex Female 6:55 PM ARMATURE WINDER AUTOMOTIVE Gender Identity Female 06/06/2022 7:40 AM ARMATURE WINDER AUTOMOTIVE Sexual Orientation Not on file documented as of this encounter Miscellaneous Notes * Telephone Encounter - Aimee Amaro - 07/31/2023 9:26 AM CST PHONED PT @ [phone] @ 10:20 AM, LFT MSG STATING TO CALL NURSE COORDINATOR TO SCHEDULE CT. TURE WINDER AUTOMOTIVE documented in this encounter Plan of Treatment Not on file documented as of this encounter Visit Diagnoses Not on filedocumented in this encounter Care Teams Autism Specialist Relationship Specialty Start Date End Date Lorie Vanessa NP [address] [place] [address] PCP - General Family Practice 05/29/22 No, Physician 06/08/21 documented as of this encounter
--- OUTSIDE RECORDS SUMMARY | 2024-06-06 00:26 | XMS_ITS | Encounter Summary ---
Author Organization [facility] Healthcare Address [address] [place] [address] Care Team Providers Care Cloth Folder Machine Name Role Phone No, Physician Unavailable Lorie Vanessa NP Primary Care Provider [phone] Reason for Visit * Reason Comments Diarrhea Entered automaticall y based on patient selection in [place]. 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 Emily Guerrier 09/25/2023 E-Visit Submission Subjective/Objective: Emily Guerrier contacted the office today via e-visit for Diarrhea. The patient-submitted questionnaire was assessed for pertinent information and the patient's problem list, medication list, and allergies were reviewed as part of the e-visit. The chart was updated to identify any changes in these areas. Reports began yesterday with diarrhea. Has had approx 5-8 episodes and also reports lower abd pain along with blood in her stool. Afebrile Does also admit to recent abx usage Assessment: No diagnosis found. Plan: Given reports of recent abx usage and blood in stool, would recommend in person eval for exam and stool sample. Patient Instructions were included in the message reply to patient. My total encounter time on 09/25/2023 was 5 minutes which was spent in the activities documented inthe note. Jayshree Carrizales NP documented in this encounter Plan of Treatment Not on file documented as of this encounter Visit Diagnoses Not on filedocumented in this encounter Care Teams Cloth Folder Machine Relationship Specialty Start Date End Date Lorie Vanessa NP [address] [place] [address] PCP - General Family Practice 05/29/22 No, Physician 06/08/21 documented as of this encounter
--- OUTSIDE RECORDS SUMMARY | 2024-06-06 00:26 | XMS_ITS | Encounter Summary ---
Author Organization [facility] Address [address] [place] [address] Phone Care Team Providers Care Advertising Material Distributor Name Role Phone No, Physician Unavailable Lorie Vanessa NP Primary Care Provider [phone] Encounter Details Date Type Department Care Team (Late st Contact Info) Description 08/06/2023 Telephone [facility] Allergy and Immunology [address] [facility] [address] [place] [address] Aimee Amaro Social History Tobacco [...] on file Legal Sex Female 6:55 PM LASER PRINT OPERATOR Gender Identity Female 06/06/2022 7:40 AM LASER PRINT OPERATOR Sexual Orientation Not on file documented as of this encounter Miscellaneous Notes * Telephone Encounter - Aimee Amaro - 08/06/2023 11:52 AM CDT 3RD ATTEMPT.. PHONED PT @ [phone] @ 11:52 AM, LFT MSG STATING TO RETURN CALL TO SCHEDULE CT. CLOSED REFERREAL AFTER 3 CALL ATTEMPTS. documented in this encounter Plan of Treatment Not on file documented as of this encounter Visit Diagnoses Not on filedocumented in this encounter Care Teams Advertising Material Distributor Relationship Specialty Start Date End Date Lorie Vanessa NP [address] [place] [address] PCP - General Family Practice 05/29/22 No, Physician 06/08/21 documented as of this encounter
--- OUTSIDE RECORDS SUMMARY | 2024-06-06 00:26 | XMS_ITS | Encounter Summary ---
Author Organization [facility] Healthcare Address [address] [place] [address] Care Team Providers Care Airbrush Artist Photography Name Role Phone No, Physician Unavailable Lorie Vanesas NP Primary Care Provider [phone] Encounter Details Date Type Department Care Team (Late st Contact Info) Description 07/31/2023 Telephone [facility] Physical Therapy [address] [place] [address] Jodi Gan PT Social History Tobacco Use Types Packs/Day Years [...] on file Legal Sex Female 6:55 PM SOFT SHOE DANCER Gender Identity Female 06/06/2022 7:40 AM SOFT SHOE DANCER Sexual Orientation Not on file documented as of this encounter Miscellaneous Notes * Telephone Encounter - Jodi Gan, PT - 07/31/2023 3:58 PM CST Left voicemail for patient informing her of missed appointment on 07/31/2023 and informing her of later appointment availability in same day in order for patient to meet her plan of care. SHOE DANCER documented in this encounter Plan of Treatment Not on file documented as of this encounter Visit Diagnoses Not on filedocumented in this encounter Care Teams Airbrush Artist Photography Relationship Specialty Start Date End Date Lorie Vanessa NP [address] [place] [address] PCP - General Family Practice 05/29/22 No, Physician 06/08/21 documented as of this encounter
--- OUTSIDE RECORDS SUMMARY | 2024-06-06 00:26 | XMS_ITS | Encounter Summary ---
Author Organization [facility] Healthcare Address [address] [place] [address] Care Team Providers Care Editor Department Name Role Phone No, Physician Unavailable Lorie Vanessa NP Primary Care Provider Reason for Visit * Reason Comments PT Treatment * Consultation (Routine) - Authorized Specialty Diagnoses / Procedures Referred By Cyn burnett Referred To Contact Physical Therapy Diagnoses Low back pain, unspecified back pain laterality, unspecified chronicity, unspecified whether [place] [address] [address] [facility] [address] [address] Phone: tel: fax: [address] [address] Referral ID Status Reason Start Date Expiration Date Visits Requested Visits Authorized [id number] Authorized Evaluate and Treat 07/01/2023 07/30/2024 9 9 Encounter Details Date Type Department Care Team (Late st Contact Info) Description 07/22/2023 2:00 PM FIRE EXTINGUISHER REPAIRER INSPECTOR Therapy [facility] Physical Therapy [address] [place] [phone] Jodi Gan PT Low back pain, [...] on file Legal Sex Female 6:55 PM FIRE EXTINGUISHER REPAIRER INSPECTOR Gender Identity Female 06/06/2022 7:40 AM FIRE EXTINGUISHER REPAIRER INSPECTOR Sexual Orientation Not on file documented as of this encounter Progress Notes * Jodi Gan, PT - 07/22/2023 2:00 PM CST Images from the original note were not included. Physical Therapy Visit PT Daily Treatment Note 07/22/2023 Emily Guerrier 1995 ICD-9-CM ICD-10-CM 1. Low back pain, unspecified back pain laterality, unspecified chronicity, unspecified whether sciatica present 724.2 M54.50 Precautions: ADJUSTOR: SAMMY TURNER PHONE NUMBER: [phone] CLAIM #: [id number] DATE OF INJURY: 01/20/2023 VISIT LIMIT: 9 VISITS 07/02/2023 SPECIAL INSTRUCTIONS: FAX NOTES TO ADJUSTOR AND BARNESCARE AFTER EVERY VISIT Climbin-25% Grasping, Pinching, Holdin-25% Lifting or Carryin-25% Pushing or Pullin-25% Reaching Overhead: 0-25% Sittin-25% Squatting, Bending, Kneelin-25% Standin-75% Walking or Movin-75% Weights Lifted: 10-35 lbs. Visit Info Next MD Visit: 08/21/23 Progress Report Completed: none Progress Report Due: 10th visit Start Time: 1358 End Time: 1437 Patient ID verified. Subjective: Emily Guerrier states that she felt good following her previous visit and continues to feel good today. She denies pain today. Pain: 0/10 low back Objective: Patient is able to progress sit <> stands from 17 plinth this date Treatment Provided: See flowsheet below Treatments 07/17/23 07/19/23 07/22/23 Visit Number 07/05 08/02 09/02 Arm bike (Seat 8) Level 4, x2 minutes forward revolutions & 2 minutes backward revolutions Level 4, x2 minutes forward revolutions & 2 minutes backward revolutions Treadmill walking on incline 1.0% incline, 2.0 mph, x5 minutes Posterior pelvic tilts X20 - reviewed for HEP Gluteal setting 20x3 hold Transverse abdominis isometrics 10x10 hold Transverse abdominis isometrics with alternating UE lifts 2x10 each ANA 2x10 each ANA Low abdominal marching 2x10 each ANA 2x10 each ANA 2x10 each ANA Bent knee fall outs X20 each ANA - reviewed for HEP Hip abduction isometrics 20x5 hold, Blue theraband 20x5 hold, Blue theraband Bridges 3x10, Green theraband around knees Clamshells (hips flexed) 2x12 each ANA 2x12 each ANA 2x12 each ANA, Yellow Pallof press 2x10 each ANA, Green X10 each, ANA, doubled Green X10 each, ANA, doubled Green Sit <> stand from plinth 18 plinth, 3x10 with added chest press (5# medicine ball) 17 plinth, 3x10 with added chest press (5# medicine ball) Theraband rows with alternating LE march 2x10 each ANA, Green Theraband shoulder extension with ANA shoulder external rotation 2x10, Red ANA leg press (Seat 3, Plate 8) 3x10, 75# HEP = home exercise program Home Exercise Program: 07/16/2023: posterior pelvic tilts, transverse abdominis isometrics, bent knee fall outs 07/17/23: Gluteal setting 07/19/23: Low abdominal marching Assessment: Emily Guerrier tolerates treatment well this visit, completing activities as plannedwithout symptom exacerbation demonstrated or reported. She is able to perform clamshells with increased resistance this visit and is able to increase squat depth with sit <> stands from plinth,displaying good biomechanics with performance. She is able to initiate leg press exercise this visit for improved lower extremity strength to aid in performance of transfers and lifting tasks with correct biomechanics. Patient is appropriately challenged by Pallof press this date. Patient Response to Treatment: Patient tolerates treatment [...] tolerated, body blade, alternating quadruped lower extremity raises Jodi Gan PT Time Calculator Time-Based Code Calculator Minutes for Ther Ex/Ther Procedure (66369):: 39 minutes Timed Code Treatment Minutes:: 39 minutes Total Treatment Time: 39 EXTINGUISHER REPAIRER INSPECTOR documented in this encounter Plan of Treatment Not on file documented as of this encounter Visit Diagnoses Diagnosis Low back pain, unspecified back pain laterality, unspecified chronicity, unspecified whether sciatica present- Primary documented in this encounter Care Teams Editor Department Relationship Specialty Start Date End Date Lorie Vanessa NP [address] [place] [address] PCP - General Family Practice 05/29/22 No, Physician 06/08/21 documented as of this encounter
--- OUTSIDE RECORDS SUMMARY | 2024-06-06 00:26 | XMS_ITS | Encounter Summary ---
Author Organization [facility] Healthcare Address [address] [place] [address] Care Team Providers Care Funeral Home Assistant Name Role Phone No, Physician Unavailable Lorie Vanessa NP Primary Care Provider [phone] Reason for Visit * Reason Comments PT Treatment PT Discharge * Consultation (Routine) - Authorized Specialty Diagnoses / Procedures Referred By Cyn burnett Referred To Contact Physical Therapy Diagnoses Low back pain, unspecified back pain laterality, unspecified chronicity, unspecified whether [place] [address] [address] [facility] [address] [address] Phone: tel: fax: [address] [phone] Referral ID Status Reason Start Date Expiration Date Visits Requested Visits Authorized [id number] Authorized Evaluate and Treat 07/01/2023 07/30/2024 9 9 Encounter Details Date Type Department Care Team (Late st Contact Info) Description 07/26/2023 3:30 PM INTERNAL REVENUE SERVICE AGENT Therapy [facility] Physical Therapy [address] [place] [phone] Jodi Gan PT Low back pain, [...] on file Legal Sex Female 6:55 PM INTERNAL REVENUE SERVICE AGENT Gender Identity Female 06/06/2022 7:40 AM INTERNAL REVENUE SERVICE AGENT Sexual Orientation Not on file documented as of this encounter Progress Notes * Jodi Gan, PT - 07/26/2023 3:30 PM CST Images from the original note were not included. Physical Therapy Discharge Summary 09/17/23 This patient has not returned to therapy since 07/26/2023. This patient is discharged from Physical Therapy. Goals could not be assessed. See previous notes for treatment details. The clinician has reviewed the treatment notes and agrees to discharge. Jodi Gan, PT PT Daily Treatment Note 07/26/2023 Emily Guerrier 1995 ICD-9-CM ICD-10-CM 1. Low back pain, unspecified back pain laterality, unspecified chronicity, unspecified whether sciatica present 724.2 M54.50 Precautions: ADJUSTOR: SAMMY TURNER PHONE NUMBER: [phone] CLAIM #: [id number] DATE OF INJURY: 01/20/2023 VISIT LIMIT: 9 VISITS 07/02/2023 SPECIAL INSTRUCTIONS: FAX NOTES TO ADJUSTOR AND BARNESCARE AFTER EVERY VISIT Climbin-25% Grasping, Pinching, Holdin-25% Lifting or Carryin-25% Pushing or Pullin-25% Reaching Overhead: 0-25% Sittin-25% Squatting, Bending, Kneelin-25% Standin-75% Walking or Movin-75% Weights Lifted: 10-35 lbs. Visit Info Next MD Visit: 08/21/23 Progress Report Completed: none Progress Report Due: visit Start Time: 1540 End Time: 1633 Patient ID verified. Subjective: Emily Guerrier states that she messaged her doctor yesterday regarding return to work and was cleared to return to her full work duty. She was instructed to complete her remaining physical therapy appointments. Patient states that tomorrow she will return to work at full duty. She states that her back feels good today. Pain: 0/10 low back Objective: Patient is able to increase weight with ANA leg press by 40# Treatment Provided: See flowsheet below Treatments 07/17/23 07/19/23 07/22/23 07/24/23 07/26/23 Visit Number 2 309/02 Arm bike (Seat 8) Level 4, x2 minutes forward revolutions & 2 minutes backward revolutions Level 4, x2 minutes forward revolutions & 2 minutes backward revolutions Treadmill walking on incline 1.0% incline, 2.0 mph, x5 minutes 1.0% incline, 2.5 mph, x5 minutes 1.0% incline, 2.5 mph, x5 minutes Posterior pelvic tilts X20 - reviewed for HEP Gluteal setting 20x3 hold Transverse abdominis isometrics 10x10 hold Transverse abdominis isometrics with alternating UE lifts 2x10 each ANA 2x10 each ANA 2x10 each ANA Low abdominal marching 2x10 each ANA 2x10 each ANA 2x10 each ANA 2x10 each ANA Deadbug marching X10 each ANA 2x10 each ANA Bent knee fall outs X20 each ANA - reviewed for HEP Hip abduction isometrics 20x5 hold, Blue theraband 20x5 hold, Blue theraband Bridges 3x10, Green theraband around knees Clamshells (hips flexed) 2x12 each ANA 2x12 each ANA 2x12 each ANA, Yellow Clamshells (hips neutral) 2x12 each ANA, Yellow 2x12 each ANA, Yellow Pallof press 2x10 each ANA, Green X10 each, ANA, doubled Green X10 each, ANA, doubled Green X15 each, ANA, single Blue X15 each, ANA, doubled Blue Sit <> stand from plinth 18 plinth, 3x10 with added chest press (5# medicine ball) 17 plinth, 3x10 with added chest press (5# medicine ball) 17 plinth, 3x10 with added chest press (7# medicine ball) 17 plinth, 3x10 with added chest press (7# medicine ball) Theraband rows with alternating LE march 2x10 each ANA, Green Theraband shoulder extension with ANA shoulder external rotation 2x10, Red 2x10, Red 2x10, Red ANA leg press (Seat 3, Plate 8) 3x10, 75# x10, 95# 2x10, 105# Floor to waist lift 2x10, 10# Waist to overhead lift 2x10, 5# HEP = home exercise program Home Exercise Program: 07/16/2023: posterior pelvic tilts, transverse abdominis isometrics, bent knee fall outs 07/17/23: Gluteal setting 07/19/23: Low abdominal marching 07/24/23: Clamshells (hips flexed), hip abduction isometrics 07/26/23: Pallof press Assessment: Emily Guerrier tolerates treatment well this visit, completing session as planned without adverse effects demonstrated or reported. She continues to demonstrate good squat mechanics with sit <> stands from plinth with added chest press this date and is able to increase weight with ANA leg press with appropriate level of challenge. She demonstrates fair to good biomechanics with floor to waist lifting to simulate lifting tasks performed at work, displaying improved lifting mechanics following verbal and visual cueing provided. Patient Response to Treatment: Patient tolerates treatment [...] Ongoing Plan: Next visit consider band walks, body blade, alternating quadruped lower extremity raises, lift and carry Jodi Gan PT Time Calculator Time-Based Code Calculator Minutes for Ther Ex/Ther Procedure (55633):: 39 minutes Minutes for Ther Act (32984):: 14 minutes Timed Code Treatment Minutes:: 53 minutes Total Treatment Time: 53 RNAL REVENUE SERVICE AGENT documented in this encounter Plan of Treatment Not on file documented as of this encounter Visit Diagnoses Diagnosis Low back pain, unspecified back pain laterality, unspecified chronicity, unspecified whether sciatica present- Primary documented in this encounter Care Teams Funeral Home Assistant Relationship Specialty Start Date End Date Lorie Vanessa NP [address] [place] [id number] PCP - General Family Practice 05/29/22 No, Physician 06/08/21 documented as of this encounter
--- OUTSIDE RECORDS SUMMARY | 2024-06-06 00:26 | XMS_ITS | Encounter Summary ---
Author Organization [facility] Healthcare Address [address] [place] [address] Care Team Providers Care Machine Taper Name Role Phone No, Physician Unavailable Lorie Vanessa NP Primary Care Provider [phone] Encounter Details Date Type Department Care Team (Late st Contact Info) Description 2023 Orders Only [facility] Health Information Management [address] [place] [address] Lorie Vanessa SURVEILLANCE SENSOR OFFICER [address] [address] Social History Tobacco Use Types [...] on file Legal Sex Female 6:55 PM WAREHOUSE CLERK Gender Identity Female 06/06/2022 7:40 AM WAREHOUSE CLERK Sexual Orientation Not on file documented as of this encounter Plan of Treatment Not on file documented as of this encounter Procedures Procedure Name Priority Date/Time Associated Diagnosis Comments SCAN - RADIOLOGY/IMAGING 2023 documented in this encounter Results * SCAN - RADIOLOGY/IMAGING (2023) Anatomical Region Laterality Modality Other us Lorie Vanessa NP Final Result documented in this encounter Visit Diagnoses Not on filedocumented in this encounter Care Teams Machine Taper Relationship Specialty Start Date End Date Lorie Vanessa NP [address] [place] [id number] PCP - General Family Practice 05/29/22 No, Physician 06/08/21 documented as of this encounter
--- OUTSIDE RECORDS SUMMARY | 2024-06-06 00:26 | XMS_ITS | Encounter Summary ---
Author Organization [facility] Healthcare Address [address] [place] [address] Care Team Providers Care Complex Care Nurse Practitioner Name Role Phone No, Physician Unavailable Lorie Vanessa NP Primary Care Provider [phone] Reason for Visit * Reason Comments PT Treatment * Consultation (Routine) - Authorized Specialty Diagnoses / Procedures Referred By Cyn burnett Referred To Contact Physical Therapy Diagnoses Low back pain, unspecified back pain laterality, unspecified chronicity, unspecified whether [place] [address] [address] [facility] [address] [address] Phone: tel: fax: [address] [address] Referral ID Status Reason Start Date Expiration Date Visits Requested Visits Authorized [id number] Authorized Evaluate and Treat 07/01/2023 07/30/2024 9 9 Encounter Details Date Type Department Care Team (Late st Contact Info) Description 07/19/2023 3:45 PM ASSET PROTECTION SPECIALIST Therapy [facility] Physical Therapy [address] [place] [phone] Jodi Gan PT Low back pain, [...] on file Legal Sex Female 6:55 PM ASSET PROTECTION SPECIALIST Gender Identity Female 06/06/2022 7:40 AM ASSET PROTECTION SPECIALIST Sexual Orientation Not on file documented as of this encounter Progress Notes * Jodi Gan, PT - 07/19/2023 3:45 PM CST Physical Therapy Visit PT Daily Treatment Note 07/19/2023 Emily Guerrier 1995 ICD-9-CM ICD-10-CM 1. Low back pain, unspecified back pain laterality, unspecified chronicity, unspecified whether sciatica present 724.2 M54.50 Precautions: ADJUSTOR: SMAMY TURNER PHONE NUMBER: [phone] CLAIM #: [id number] DATE OF INJURY: 01/20/2023 VISIT LIMIT: 9 VISITS 07/02/2023 SPECIAL INSTRUCTIONS: FAX NOTES TO ADJUSTOR AND BARNESCARE AFTER EVERY VISIT Climbin-25% Grasping, Pinching, Holdin-25% Lifting or Carryin-25% Pushing or Pullin-25% Reaching Overhead: 0-25% Sittin-25% Squatting, Bending, Kneelin-25% Standin-75% Walking or Movin-75% Weights Lifted: 10-35 lbs. Visit Info Next MD Visit: 08/21/23 Progress Report Completed: none Progress Report Due: visit Start Time: 1546 End Time: 1624 Patient ID verified. Subjective: Emily Guerrier states that her back is feeling pretty good today. She states that she felt good following her previous visit. When asked about pain, patient states I know it's there, but it's not bothering me at all. Pain: 06/05 low back Objective: Patient is able to initiate sit <> stands from 18 plinth this date Treatment Provided: See flowsheet below Treatments 07/17/23 07/19/23 Visit Number 07/05 08/02 Arm bike (Seat 8) Level 4, x2 minutes forward revolutions & 2 minutes backward revolutions Level 4, x2 minutes forward revolutions & 2 minutes backward revolutions Posterior pelvic tilts X20 - reviewed for HEP Gluteal setting 20x3 hold Transverse abdominis isometrics 10x10 hold Transverse abdominis isometrics with alternating UE lifts 2x10 each ANA Low abdominal marching 2x10 each ANA 2x10 each ANA Bent knee fall outs X20 each ANA - reviewed for HEP Hip abduction isometrics 20x5 hold, Blue theraband Bridges 3x10, Green theraband around knees Clamshells (hips flexed) 2x12 each ANA 2x12 each ANA Pallof press 2x10 each ANA, Green X10 each, ANA, doubled Green Sit <> stand from plinth 18 plinth, 3x10 with added chest press (5# medicine ball) Theraband rows with alternating LE march 2x10 each ANA, Green Theraband shoulder extension with ANA shoulder external rotation 2x10, Red HEP = home exercise program Home Exercise Program: 07/16/2023: posterior pelvic tilts, transverse abdominis isometrics, bent knee fall outs 07/17/23: Gluteal setting 07/19/23: Low abdominal marching Assessment: Emily Guerrier tolerates treatment well this visit, completing treatment session as planned without demonstration or verbal expression of adverse symptoms. Patient is able to progress verbal cueing for proper biomechanics with sit <> stands from plinth. She is appropriately challenged by increased resistance with Pallof press this visit, demonstrating appropriate level of muscular fatigue with performance. Patient displays difficulty with core control and single leg stability with theraband rows with added march but improved stability with later repetitions. She demonstrates lumbar extension with theraband shoulder extension which is improved following verbal cueing for core engagement. Patient Response to Treatment: Patient tolerates treatment [...] Ongoing Plan: Next visit consider band walks, leg press, body blade Jodi Gan PT Time Calculator Time-Based Code Calculator Minutes for Ther Ex/Ther Procedure (96815):: 38 minutes Timed Code Treatment Minutes:: 38 minutes T PROTECTION SPECIALIST documented in this encounter Plan of Treatment Not on file documented as of this encounter Visit Diagnoses Diagnosis Low back pain, unspecified back pain laterality, unspecified chronicity, unspecified whether sciatica present- Primary documented in this encounter Care Teams Complex Care Nurse Practitioner Relationship Specialty Start Date End Date Lorie Vanessa NP [address] [place] [id number] PCP - General Family Practice 05/29/22 Physician Mel 06/08/21 documented as of this encounter
--- OUTSIDE RECORDS SUMMARY | 2024-06-06 00:26 | XMS_ITS | Encounter Summary ---
Author Organization [facility] Healthcare Address [address] [place] [address] Care Team Providers Care Contact Center Agent Name Role Phone No, Physician Unavailable Lorie Vanessa NP Primary Care Provider [phone] Reason for Visit * Reason Comments PT Treatment * Consultation (Routine) - Authorized Specialty Diagnoses / Procedures Referred By Cyn burnett Referred To Contact Physical Therapy Diagnoses Low back pain, unspecified back pain laterality, unspecified chronicity, unspecified whether [place] [address] [address] [facility] [address] [address] Phone: tel: fax: [address] [phone] Referral ID Status Reason Start Date Expiration Date Visits Requested Visits Authorized [id number] Authorized Evaluate and Treat 07/01/2023 07/30/2024 9 9 Encounter Details Date Type Department Care Team (Late st Contact Info) Description 07/17/2023 3:30 PM AIR CONDITIONING ENGINEER Therapy [facility] Physical Therapy [address] [place] [phone] Jodi Gan PT Low back pain, [...] on file Legal Sex Female 6:55 PM AIR CONDITIONING ENGINEER Gender Identity Female 06/06/2022 7:40 AM AIR CONDITIONING ENGINEER Sexual Orientation Not on file documented as of this encounter Progress Notes * Jodi Gan, PT - 07/17/2023 3:30 PM CST Images from the original note were not included. Physical Therapy Visit PT Daily Treatment Note 07/17/2023 Emily Guerrier 1995 ICD-9-CM ICD-10-CM 1. Low back pain, unspecified back pain laterality, unspecified chronicity, unspecified whether sciatica present 724.2 M54.50 Precautions: ADJUSTOR: SAMMY TURNER PHONE NUMBER: [phone] CLAIM #: [id number] DATE OF INJURY: 01/20/2023 VISIT LIMIT: 9 VISITS 07/02/2023 SPECIAL INSTRUCTIONS: FAX NOTES TO ADJUSTOR AND BARNESCARE AFTER EVERY VISIT Climbin-25% Grasping, Pinching, Holdin-25% Lifting or Carryin-25% Pushing or Pullin-25% Reaching Overhead: 0-25% Sittin-25% Squatting, Bending, Kneelin-25% Standin-75% Walking or Movin-75% Weights Lifted: 10-35 lbs. Visit Info Next MD Visit: 08/21/23 Progress Report Completed: none Progress Report Due: visit Start Time: 1527 End Time: 160 Patient ID verified. Subjective: Emily Guerrier states that she fell this morning leaving her house, landing on her knee and skinning her knee. She states that her back feels fine today but reports noticing a jolt in her back when she fell. Pain: 07/06 low back Objective: Treatment Provided: See flowsheet below Treatments 07/17/23 Visit Number 2/ Arm bike (Seat 8) Level 4, x2 minutes forward revolutions & 2 minutes backward revolutions Posterior pelvic tilts X20 - reviewed for HEP Gluteal setting 20x3 hold Transverse abdominis isometrics 10x10 hold Low abdominal marching 2x10 each ANA Bent knee fall outs X20 each ANA - reviewed for HEP Bridges 3x10, Green theraband around knees Clamshells (hips flexed) 2x12 each ANA Pallof press 2x10 each ANA, Green HEP = home exercise program Home Exercise Program: 07/16/2023: posterior pelvic tilts, transverse abdominis isometrics, bent knee fall outs 07/17/23: Gluteal setting Assessment: Emily Guerrier demonstrates good transverse abdominis activation this visit. She demonstrates poor gluteal activation and decreased ROM with performance of bridges this date. She demonstrates appropriate level of fatigue following completion of session and will benefit from further progression as tolerated in future visits. Patient Response to Treatment: Patient tolerates treatment [...] Ongoing Plan: Next visit consider band walks, theraband shoulder extension with ANA shoulder external rotation Jodi Gan PT Time Calculator Time-Based Code Calculator Minutes for Ther Ex/Ther Procedure (77648):: 38 minutes Timed Code Treatment Minutes:: 38 minutes Total Treatment Time: 38 CONDITIONING ENGINEER documented in this encounter Plan of Treatment Not on file documented as of this encounter Visit Diagnoses Diagnosis Low back pain, unspecified back pain laterality, unspecified chronicity, unspecified whether sciatica present- Primary documented in this encounter Care Teams Contact Center Agent Relationship Specialty Start Date End Date Lorie Vanessa LIFE SCIENCE TECHNICIAN [address] [place] [phone] PCP - General Family Practice 05/29/22 No, Physician 06/08/21 documented as of this encounter
--- OUTSIDE RECORDS SUMMARY | 2024-06-06 00:26 | XMS_ITS | Encounter Summary ---
Author Organization [facility] Healthcare Address [address] [place] [address] Care Team Providers Care Senior Php Web Developer Name Role Phone No, Physician Unavailable Lorie Vanessa NP Primary Care Provider [phone] Reason for Visit * Reason Comments Palpitations Diarrhea Encounter Details Date Type Department Care Team (Late st Contact Info) Description 03/05/2024 2:57 PM CDT - 03/05/2024 6:[address] 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 Gender Identity Female 06/06/2022 7:40 AM CELL SUPPORT OPERATOR Sexual Orientation Not on file documented as of this encounter Last Filed Vital Signs Vital Sign Reading Time Taken Comments Blood Pressure 133/60 03/05/2024 4:45 PM CDT Pulse 70 03/05/2024 4:45 PM CDT Temperature 37.3 ??C (99.1 ??F) 03/05/2024 1:22 PM CD T Respiratory Rate 16 03/05/2024 4:45 PM CDT Oxygen Saturation 100% 03/05/2024 4:45 PM CDT Inhaled Oxygen Concentration - - Weight 153.1 kg (337 lb 8.4 oz) 03/05/2024 1:22 PM CDT Height 162.6 cm (5' 4 ) 03/05/2024 1:22 PM CDT Body Mass Index 57.94 03/05/2024 1:22 PM CDT documented in this encounter Discharge Instructions * Attachments The following attachments cannot be sent through Care Everywhere. * Acute Nausea and Vomiting (AfterCare(R) Instructions(ER/ED)) (Tajik) * Acute Diarrhea (AfterCare(R) Instructions(ER/ED)) (Tajik) documented in this encounter Medications at Time [...] BY MOUTH DAILY 90 tablet 1 02/11/[address] (PROTONIX) 40 mg EC tabletIndications:Na [...] 11 09/04/2022 cromolyn (GASTROCROM) 100 mg/5 mL solutionIndications: systemic mastocytosis Take 10 mL (200 mg total) by mouth 4 (four) times a day before meals and nightly 1200 mL 11 12/03/2022 04/13/20 24 HYDROcodone-acetamin ophen (NORCO) 5-325 [...] Refills Last Filled Start Date End Date dicyclomine (BENTYL) 20 mg tablet Take 1 tablet (20 mg total) by mouth every 6 (six) hours for 7 days 28 tablet 03/05/2024 HYDROcodone-acetam inophen (NORCO) 5-325 mg per tabletIndications: Pain Take 1 tablet by mouth every 6 (six) hours as needed for pain 8 tablet 03/05/2024 4 prochlorperazine (COMPAZINE) 10 mg tablet Take 1 tablet (10 mg total) by mouth 2 (two) times a day as needed for nausea or vomiting 10 tablet 03/05/2024 4 documented in this encounter Discharge Disposition Disposition Code Departure Means Destination Comment s Discharge to home or self care documented in this encounter ED Notes * Victoria Falk PA - 03/05/2024 3:09 PM CDT CHIEF COMPLAINT: Chief Complaint Patient presents with Palpitations Diarrhea HPI 6:21 PM Emily Hahn is a 28 y.o. female presenting to the ED c/o nausea, vomiting, and diarrhea. She states she has been having diarrhea several times a day for the last 10 days. She states today she started having heart palpitations but thinks this is due to dehydration and reports a hx of POTS. She denies chest pain. She c/o generalized abdominal pain she describes as cramping and burning. She reports a hx of IBS but states this feels different than her usual IBS flare up. She denies fever or any other complaints. PCP: Lorie Vanessa AMPOULE INSPECTOR PAST MEDICAL HISTORY Past Medical History: Diagnosis Date Anxiety 2018 Asthma suspected, pending PFTs 2022 Brain concussion Depression 2018 Dysmenorrhea 2016 GERD (gastroesophageal reflux disease) Infection Constantly sick Irritable bowel syndrome Menstrual problem 2014 Migraines Motion sickness Nausea Polycystic ovary syndrome Postural orthostatic tachycardia syndrome (POTS) Seizures (HCC) History of febrile seizures as an /toddler PAST SURGICAL HISTORY Past Surgical History: Procedure Laterality Date BAND HEMORRHOIDECTOMY COLONOSCOPY ENDOMETRIAL BIOPSY ESOPHAGOGASTRODUODENOSCOPY FAMILY HISTORY Family History Problem Relation Age of Onset [...] cancer Neg Hx Colon cancer Neg Hx MEDICATIONS GIVEN IN THE ED Medications sodium chloride 0.9% bolus 1,000 mL (1,000 mL intravenous New Bag 03/05/24 1512) metoclopramide (REGLAN) 5 mg/mL injection 5 mg (5 mg intravenous Given 03/05/24 1547) ketorolac (TORADOL) 30 mg/mL injection 30 mg (30 mg intravenous Given 03/05/24 1545) ondansetron (ZOFRAN) injection 4 mg (4 mg intravenous Given 03/05/24 1607) morphine injection 4 mg (4 mg intravenous Given 03/05/24 1703) prochlorperazine (COMPAZINE) injection 5 mg (5 mg intravenous Given 03/05/24 1704) ioversoL (OPTIRAY 350) syringe 100 mL (100 mL intravenous Contrast Given 03/05/24 1715) dicyclomine (BENTYL) tablet 20 mg (20 mg oral Given 03/05/24 1815) CURRENT HOME MEDICATIONS No current facility-administered medications for this encounter. Current Outpatient Medications: cetirizine (ZyrTEC) 10 mg chewable tablet, Take 4 tablets (40 mg total) by mouth daily Up to 40 daily PRN, Disp: , Rfl: cholecalciferol 25 mcg (1,000 unit) tablet, Take 1 tablet (1,000 Units total) by mouth daily, Disp:, Rfl: clonazePAM (KlonoPIN) 0.5 mg tablet, Take 1 tablet (0.5 mg total) by mouth daily as needed, Disp: ,Rfl: cromolyn (GASTROCROM) 100 mg/5 mL solution, Take 10 mL (200 mg total) by mouth 4 (four) times a daybefore meals and nightly, Disp: 1200 mL, Rfl: 11 dicyclomine (BENTYL) 20 mg tablet, Take 1 tablet (20 mg total) by mouth every 6 (six) hours for 7 days, Disp: 28 tablet, Rfl: 0 famotidine (PEPCID) 40 mg tablet, TAKE 1 TABLET(40 MG) BY MOUTH EVERY NIGHT NEEDED FOR HEARTBURN, Disp: 30 tablet, Rfl: 3 HYDROcodone-acetaminophen (NORCO) 5-325 mg per tablet, Take 1 tablet by mouth every 6 (six) hours as needed for pain, Disp: 8 tablet, Rfl: 0 lamoTRIgine (LaMICtal) 100 mg tablet, Take 1.5 tablets (150 mg total) by mouth daily 1/2 in AM and 1 in PM, Disp: , Rfl: magnesium oxide (MAG-OX) 400 mg (241.3 mg elemental magnesium) tablet, TAKE 1 TABLET(400 MG) BY MOUTH DAILY, Disp: 90 tablet, Rfl: 1 ondansetron ODT (ZOFRAN-ODT) 4 mg disintegrating tablet, Take 1 tablet (4 mg total) by mouth every 8 (eight) hours as needed for nausea or vomiting, Disp: 20 tablet, Rfl: [address] (PROTONIX) 40 mg EC tablet, Take 1 tablet (40 mg total) by mouth daily, Disp: 30 tablet, Rfl: 3 prochlorperazine (COMPAZINE) 10 mg tablet, Take 1 tablet (10 mg total) by mouth 2 (two) times a dayas needed for nausea or vomiting, Disp: 10 tablet, Rfl: 0 propranolol LA (INDERAL LA) 60 mg 24 hr capsule, TAKE 1 CAPSULE(60 MG) BY MOUTH DAILY, Disp: 90 capsule, Rfl: 0 sertraline (ZOLOFT) 100 mg tablet, Take 2 tablets (200 mg total) by mouth nightly, Disp: , Rfl: triamcinolone (NASACORT) 55 mcg nasal inhaler, Administer 2 sprays into each nostril daily Can increase to twice daily if symptoms persist, Disp: 16.9 mL, Rfl: 11 ALLERGIES Allergies Allergen Reactions Adhesive Itching and Rash Fluoxetine Mental status changes Nitrofurantoin Itching SOCIAL HISTORY Social History Tobacco Use Smoking status: Never [...] or 2 Frequency of Binge Drinking: Never PHYSICAL EXAM TRIAGE VITAL SIGNS: ED Triage Vitals [03/05/24 1322] Temp Pulse Resp BP SpO2 37.3 ??C (99.1 ??F) 80 18 153/91 100 % Temp src Heart Rate Source Patient Position BP Location FiO2 (%) Oral -- -- -- -- Height Height Method Weight Weight Method 1.626 m (5' 4 ) Stated (!) 153.1 kg (337 lb 8.4 oz) Standing scale Physical Exam Vitals and nursing note reviewed. Constitutional: General: She is not in acute distress. Appearance: She is well-developed. She is morbidly obese. HENT: Head: Normocephalic and atraumatic. Eyes: Conjunctiva/sclera: Conjunctivae normal. Cardiovascular: Rate and Rhythm: Normal rate and regular rhythm. Heart sounds: No murmur heard. Pulmonary: Effort: Pulmonary effort is normal. No respiratory distress. Breath sounds: Normal breath sounds. Abdominal: Palpations: Abdomen is soft. Tenderness: There is generalized abdominal tenderness. Musculoskeletal: General: No swelling. Cervical back: Neck supple. Skin: General: Skin is warm and dry. Neurological: Mental Status: She is alert. Psychiatric: Mood and Affect: Mood normal. LABS Labs Reviewed URINALYSIS AND REFLEX TO MICROSCOPIC AND CULTURE - Abnormal Result Value Color, ur Yellow Clarity, ur Cloudy (*) Specific gravity, ur 1.023 pH, urine 8.5 Protein, ur ql 1+ (*) Glucose, ur ql Negative Ketones, ur Negative Bilirubin, ur Negative Blood, ur Negative Urobilinogen, ur <2.0 Nitrite, ur Negative Leukocyte esterase, ur Negative UA reflex comment Reflex to microscopic UA will be performed. CBC WITH AUTO DIFFERENTIAL - Abnormal WBC 9.4 Hgb 13.3 Hct 40.9 Plt 421 (*) MPV 9.1 RBC 5.08 MCV 80.5 (*) MCH 26.2 (*) MCHC 32.5 RDW CV 13.3 RDW SD 38.6 NRBC abs 0.00 URINALYSIS, MICROSCOPIC ONLY - Abnormal WBC, ur 0-5 RBC, ur 11-20 (*) Epithelial cells, squamous, ur >50 (*) Bacteria, ur 3+ (*) Culture Reflex Comment Value: Reflex conditions for urine culture (WBC >10) not met. POCT HCG, URINE - Normal HCG, ur, POC Negative Lot Number [id number] QC Backgroud Clear Acceptable QC Control Line Acceptable C. DIFFICILE TESTING C. diff result Negative, DNA C. diff interp Value: Negative for toxigenic Clostridioides (Clostridium) difficile. Analysis performed by detection of gene(s) encoding C. difficile toxin(s). The nucleic acid detection assay used is cleared by the US Food and Drug administration and its performance characteristics have been verified by the performing laboratory. STOOL CULTURE COMPREHENSIVE METABOLIC PANEL Sodium 141 Potassium, pl 3.5 Chloride 103 CO2 24 Anion gap 14 BUN 6 Creatinine 0.70 Glucose 110 Calcium 9.4 Bilirubin, total 0.3 Protein, pl 7.8 Albumin 4.2 Alk phos 105 ALT 20 AST 21 TROPONIN T HIGH-SENSITIVITY SERIES (BASELINE, 2HR, 4HR, 6HR) Trop T hs <6 LIPASE Lipase 18 DIFFERENTIAL AUTO Neutrophil abs 5.9 Imm gran abs 0.0 Lymphocyte abs 2.5 Monocyte abs 0.6 Eosinophil abs 0.2 Basophil abs 0.1 Neutrophil pct 63.3 Imm gran pct 0.2 Lymphocyte pct 26.8 Monocyte pct 6.5 Eosinophil pct 2.5 Basophil pct 0.7 TROPONIN T HIGH-SENSITIVITY 2-HOUR Trop T hs <6 Trop T hs delta 0 Trop T hs interp Insignificant EGFR eGFR >[address] ABDOMEN PELVIS W CONTRAST Impression: There is fluid throughout non distended large and small bowel as evidence for a malabsorptive or secretory state. No wall thickening is evident. Otherwise no acute findings within the abdomen or pelvis. Mild splenomegaly. EKG 13:41 Rate 87 bpm NSR with sinus arrhythmia Inferior infarct, age undetermined ED COURSE/MEDICAL DECISION MAKING Differential diagnosis included but not limited to gastroenteritis, IBS, dehydration Patient's medical records were reviewed. ED Course as of 03/05/24 1821 Time: 03/05 476 Comment: Nausea resolved but pt still c/o pain. Will order a dose of Bentyl per pt's request. By: Victoria Falk PA Patient is a 28-year-old female presenting to the ED c/o nausea, vomiting, and diarrhea. She statesshe has been having diarrhea several times a day for the last 10 days. She states today she startedhaving heart palpitations but thinks this is due to dehydration and reports a hx of POTS. She denies chest pain. She c/o generalized abdominal pain she describes as cramping and burning. She reports a hx of IBS but states this feels different than her usual IBS flare up. She denies fever or any other complaints. Physical exam as noted above. Lab work unremarkable. UA is contaminated. CT abdomen and pelvis shows fluid throughout nondistended large and small bowel as evidence for a malabsorptive or secretory state. No other acute findings seen. Pt feeling better after IVF, nausea meds, and painmedication. She is requesting bentyl which was ordered. She has a GI doctor that she sees but is trying to get a new one currently. I sent her home with Bentyl, pain medicine, and Compazine. Instructed her to f/u with her GI and PCP. Strict return precautions given. Pt expressed understanding. Procedures FINAL IMPRESSION Nausea vomiting and diarrhea DISPOSITION: Home All findings were discussed with patient. Pt agreeable with plan. Non toxic appearing, vitals stable. Patient stable for discharge home. Given return to ER precautions Close outpatient follow-up with a low threshold to return has been mandated, concerning symptoms have been emphasized in detail, and this patient expresses understanding PATIENT INSTRUCTED TO FOLLOW UP Lorie Vanessa, AMPOULE INSPECTOR [address] [place] [id number] In 2 days DISCHARGE MEDICATIONS Your medication list START taking these medications Instructions Last Dose Given Next Dose Due dicyclomine 20 mg tablet Commonly known as: BENTYL Take 1 tablet (20 mg total) by mouth every 6 (six) hours for 7 days HYDROcodone-acetaminophen 5-325 mg per tablet Commonly known as: NORCO Take 1 tablet by mouth every 6 (six) hours as needed for pain prochlorperazine 10 mg tablet Commonly known as: COMPAZINE Take 1 tablet (10 mg total) by mouth 2 (two) times a day as needed for nausea or vomiting ASK your doctor about these medications Instructions Last Dose Given Next Dose Due cetirizine 10 mg chewable tablet Commonly known as: ZyrTEC Take 4 tablets (40 mg total) by mouth daily Up to 40 daily PRN cholecalciferol 25 mcg (1,000 unit) tablet Take 1 tablet (1,000 Units total) by mouth daily clonazePAM 0.5 mg tablet Commonly known as: KlonoPIN Take 1 tablet (0.5 mg total) by mouth daily as needed cromolyn 100 mg/5 mL solution Commonly known as: GASTROCROM Take 10 mL (200 mg total) by mouth 4 (four) times a day before meals and nightly famotidine 40 mg tablet Commonly known as: PEPCID TAKE 1 TABLET(40 MG) BY MOUTH EVERY NIGHT NEEDED FOR HEARTBURN lamoTRIgine 100 mg tablet Commonly known as: LaMICtal Take 1.5 tablets (150 mg total) by mouth daily 1/2 in AM and 1 in PM magnesium oxide 400 mg (241.3 mg elemental magnesium) tablet Commonly known as: MAG-OX TAKE 1 TABLET(400 MG) BY MOUTH DAILY ondansetron ODT 4 mg disintegrating tablet Commonly known as: ZOFRAN-ODT Take 1 tablet (4 mg total) by mouth every 8 (eight) hours as needed for nausea or vomiting pantoprazole DR 40 mg EC tablet Commonly known as: PROTONIX Take 1 tablet (40 mg total) by mouth daily propranolol LA 60 mg 24 hr capsule Doctor's comments: Patient requests 90 days supply Commonly known as: INDERAL LA TAKE 1 CAPSULE(60 MG) BY MOUTH DAILY sertraline 100 mg tablet Commonly known as: ZOLOFT Take 2 tablets (200 mg total) by mouth nightly triamcinolone 55 mcg nasal inhaler Commonly known as: NASACORT Administer 2 sprays into each nostril daily Can increase to twice daily if symptoms persist Where to Get Your Medications These medications were sent to [id number] - [place], [place] - [address] [facility] [address], [facility] [id number] dicyclomine 20 mg tablet HYDROcodone-acetaminophen 5-325 mg per tablet prochlorperazine 10 mg tablet This examination was transcribed using the [employer] voice recognition system without human rn wound. In an effort to expedite patient care, this report has not been adjusted for typographical, grammatical, and syntax by a trained director medical affairs. Victoria Falk PA 03/05/24 1821 Cosigned by Ursula Thomas MD at 03/06/2024 2:06 PM CDT * Aimee Ortiz RN - 03/05/2024 1:21 PM CDT Pt reports n/v/d for 10 days. Started having palpitations this morning. Thought her diarrhea was d/t her IBS documented in this encounter Plan of Treatment Not on file documented as of this encounter Procedures Procedure Name Priority Date/Time Associated Diagnosis Comments CT ABDOMEN PELVIS W CONTRAST ED 03/05/2024 5:11 PM CDT POCT HCG, URINE Routine 03/05/2024 4:05 PM CDT C. DIFFICILE TESTING STAT 03/05/2024 3:41 PM CDT STOOL CULTURE Routine 03/05/2024 3:41 PM CDT URINALYSIS AND REFLEX TO MICROSCOPIC AND CULTURE STAT 03/05/2024 3:40 PM CDT URINALYSIS, MICROSCOPIC ONLY STAT 03/05/2024 3:40 PM CDT TROPONIN T HIGH-SENSITIVITY 2-HOUR Timed 03/05/2024 3:14 PM CDT ECG 12-LEAD STAT 03/05/2024 1:41 PM CDT TROPONIN T HIGH-SENSITIVITY SERIES (BASELINE, 2HR, 4HR, 6HR) STAT 03/05/2024 1:38 PM CDT EGFR STAT 03/05/2024 1:38 PM CDT DIFFERENTIAL AUTO STAT 03/05/2024 1:3 8 PM CDT CBC WITH AUTO DIFFERENTIAL STAT 03/05/2024 1:38 PM CDT LIPASE STAT 03/05/2024 1:38 PM CDT COMPREHENSIVE METABOLIC PANEL STAT 03/05/2024 1:38 PM CDT documented in this encounter Results * CT Abdomen Pelvis W Contrast (03/05/2024 5:11 PM CDT) Anatomical Region Laterality Modality Body N/A Computed Tomogra phy 03/05/2024 5:24 PM CDT Narrative 03/05/2024 5:28 PM CDT EXAM DESCRIPTION: ?? CT ABDOMEN PELVIS W CONTRAST REASON FOR STUDY: ?? Nausea/vomiting, Abdominal pain, acute, nonlocalized ?? Pt reports n/v/d for 10 days. Started having palpitations this morning. Thought her diarrhea was d/t her IBS ? TECHNIQUE: CT scan of the abdomen [...] ?? injected via ?? intravenous COMPARISON: ?? 04/16/2023. FINDINGS: LOWER CHEST: ?? No significant pulmonary abnormalities. No effusion. LIVER: ?? Normal size. ??No identified cystic or solid masses. GALLBLADDER: ?? Unremarkable. BILE DUCTS: ?? No intrahepatic or extrahepatic ductal dilatation. SPLEEN: ?? Mildly enlarged. ??No focal lesion evident. PANCREAS: ?? No identified cystic or solid masses. No significant calcifications. No adjacent inflammation or peripancreatic fluid collections. Pancreatic duct not dilated. ?? ADRENALS: ?? Normal. KIDNEYS/URINARY TRACT: ?? No identified significant cystic or solid masses. No visualized stones. No hydronephrosis or hydroureter. Symmetric enhancement. ? Urinary bladder is decompressed. GI: ?? There is fluid throughout the large bowel which is nondistended. ??The appendix is normal in appearance. ??There is scattered fluid in non distended small bowel loops. ??No wall thickening is evident. PERITONEUM: ?? No ascites or free air. RETROPERITONEUM: ?? No mass or adenopathy. REPRODUCTIVE: ?? No significant abnormality. VASCULATURE: ?? No abdominal aortic aneurysm. MUSCULOSKELETAL: ?? No significant abnormality. OTHER: ?? No other abnormality. IMPRESSION: There is fluid throughout non distended large and small bowel as evidence for a malabsorptive or secretory state. ??No wall thickening is evident. Otherwise no acute findings within the abdomen or pelvis. Mild splenomegaly. THIS IS AN ELECTRONICALLY VERIFIED FINAL REPORT 03/05/2024 5:28 PM - Electronically signed by ??Segundo Bateman M.D., D.O. Segundo Bateman M.D., D.O. MW: MAGALYS D: ??03/05/2024 5:28 PM T: ??03/05/2024 5:28 PM Report ID: [id number] Reading Location: ??[id number] Procedure Note Segundo Bateman MD - 03/05/2024 EXAM DESCRIPTION: CT ABDOMEN PELVIS W CONTRAST REASON FOR STUDY: Nausea/vomiting, Abdominal pain, acute, nonlocalized Pt reports n/v/d for 10 days. Started having palpitations this morning. Thought her diarrhea was d/t her IBS TECHNIQUE: CT scan of the abdomen and pelvis performed with intravenousand without oral contrast using helical scanning technique with dynamic intravenous contrast injection. Reconstructed coronal and sagittal MPRimages reviewed. All images stored on PACS. Automated exposure control was usedas a dose optimization technique for this examination. CONTRAST TYPE/DOSE: 100mL of IOVERSOL 350 MG IODINE/ML INTRAVENOUSSYRINGE injected via intravenous COMPARISON: 04/16/2023. FINDINGS: LOWER CHEST: No significant pulmonary abnormalities. Noeffusion. LIVER: Normal size. No identified cystic or solid masses. GALLBLADDER: Unremarkable. BILE DUCTS: No intrahepatic or extrahepatic ductal dilatation. SPLEEN: Mildly enlarged. No focal lesion evident. PANCREAS: No identified cystic or solid masses. No significant calcifications. No adjacent inflammation or peripancreatic fluidcollections. Pancreatic duct not dilated. ADRENALS: Normal. KIDNEYS/URINARY TRACT: No identified significant cystic or solid masses.No visualized stones. No hydronephrosis or hydroureter. Symmetricenhancement. Urinary bladder is decompressed. GI: There is fluid throughout the large bowel which is nondistended.The appendix is normal in appearance. There is scattered fluid in nondistended small bowel loops. No wall thickening is evident. PERITONEUM: No ascites or free air. RETROPERITONEUM: No mass or adenopathy. REPRODUCTIVE: No significant abnormality. VASCULATURE: No abdominal aortic aneurysm. MUSCULOSKELETAL: No significant abnormality. OTHER: No other abnormality. IMPRESSION: There is fluid throughout non distended large and small bowel as evidencefor a malabsorptive or secretory state. No wall thickening is evident. Otherwise no acute findings within the abdomen or pelvis. Mild splenomegaly. THIS IS AN ELECTRONICALLY VERIFIED FINAL REPORT 03/05/2024 5:28 PM - Electronically signed by Segundo Bateman M.D., D.O. Segundo Bateman M.D., D.O. MW: MAGALYS Report ID: [id number] Reading Location: [id number] Victoria LEYVA [facility] CT PROCEDURES Final Re sult * POCT hCG, urine (03/05/2024 4:05 PM CDT) HCG, ur, POC Negative Negative Lot Number [id number] QC Backgroud Clear Acceptable QC Control Line Acceptable Urine 03/05/2024 4:05 PM CDT Victoria LEYVA POINT OF CARE TEST ORDERAB LES Final Result * C. difficile testing Stool (03/05/2024 3:41 PM CDT) C. diff result Negative, DNA Negative , DNA Comment:Testing performed by : [facility], [address] [place] [address]., [id number] C. diff interp Negative for toxigenic Clostridioides (Clostridium) difficile. ??Analysis performed by detection of gene(s) encoding C. difficile toxin(s). ??The nucleic acid detection assay used is cleared by the US Food and Drug administration and its performance characteristics have been verified by the performing laboratory. FRAN HAYS Comment:Testing performed by : [facility], [address] [place] [address]., [id number] Stool 03/05/2024 3:41 PM CDT 03/05/2024 3:48 PM CDT Victoria LEYVA LAB MICROBIOLOGY - GENERAL ORDERABLES Final Result FRAN HAYS [id number] [facility] Department [place] [address] * Stool culture Stool Rectum (03/05/2024 3:41 PM CDT) Direct Specimen Exam Shiga Toxin Testing: Antigen detection assay for Shiga-toxin NEGATIVE for Shiga Toxin 1 and Shiga Toxin 2. Comment:Testing performed by : [facility], [address] [place]., [address] Report Final Report: No growth of enteric bacterial pathogens FRAN HAYS Comment:Testing performed by : [facility], [address] [place] [address], [place]., [address] Stool (Rectum) 03/05/2024 3: 41 PM CDT 03/05/2024 7:46 PM CDT Narrative FRAN HAYS - 03/09/2024 10:41 AM CDT Specimen received in a sterile container. Testing performed by [facility] ([phone]). Routine stool cultures include procedures to detect Salmonella, Shigella, Edwardsiella, Aeromonas, Pleisiomonas, Campylobacter, Yersinia, E. coli O157, and Shiga-like toxins. ?? Vibrio is cultured only upon special request. ??If Vibrio is suspected, please call the laboratory at [phone]. Interpretive data was last updated October 01, 2016. Victoria LEYVA LAB MICROBIOLOGY - GENERAL ORDERABLES Final Result Performing Organization Address City/[facility]/ZIP Co de Phone Number FRAN [phone] [facility] [place] [address] * (ABNORMAL) Urinalysis, microscopic only (03/05/2024 3:40 PM CDT) WBC, ur 0-5 0 - 5 /HPF Comment:Testing performed by : [address] [address] RBC, ur 11-20(A) 0 - 2 /HPF FRAN Comment:Testing performed by : [address] [address] Epithelial cells, squamous, ur >50(A) 0 - 5 /HPF FRAN Comment:Testing performed by : [address] [address] Bacteria, ur 3+(A) FRAN Comment:Testing performed by : [address] [id number] Culture Reflex Comment Reflex conditions for urine culture (WBC >10) not met. FRAN Comment:Testing performed by : [address] [address] Urine, clean voided 03/05/2024 3:40 PM CDT 03/05/2024 3:45 PM CDT Victoria LEYVA LAB URINE ORDERABLES Final Result Performing Organization Address City/[facility]/ZIP Co de Phone Number FRAN [phone] [facility] [place] [address] * (ABNORMAL) Urinalysis reflex to microscopic and culture Urine, clean voided (03/05/2024 3:40 PM CDT) Color, ur Yellow Yellow Comment:Testing performed by : [address] [address] Clarity, ur Cloudy(A) Clear FRAN Comment:Testing performed by : [address] [address] Specific gravity, ur 1.023 1.003 - 1.030 FRAN Comment:Testing performed by : [address] [address] pH, urine 8.5 FRAN Comment: Interpretive Data ? Urine pH is affected by diet, medications, systemic acid-base disturbances, and renal tubular function. ??pH may affect urinary stone formation. ??For example, urine pH below 6.0 may help reduce the tendency for calcium phosphate stones and pH greater than 6.0 may reduce the tendency for uric acid stone formation. Source: [facility] [employer] Current Interpretive Data was last revised on 2017 Testing performed by: [address] [address] Protein, ur ql 1+(A) Negative FRAN Comment:Testing performed by : [address] [address] Glucose, ur ql Negative Negative FRAN Comment:Testing performed by : [address] [address] Ketones, ur Negative Negative FRAN Comment:Testing performed by : [address] [address] Bilirubin, ur Negative Negative FRAN Comment:Testing performed by : [address] [address] Blood, ur Negative Negative FRAN Comment:Testing performed by : [address] [address] Urobilinogen, ur <2.0 <2.0 mg/dL FRAN Comment:Testing performed by : [address] [address] Nitrite, ur Negative Negative FRAN Comment:Testing performed by : [facility], [address] [place] [address]., [address] Leukocyte esterase, ur Negative Negative FRAN Comment:Testing performed by : [address] [address] UA reflex comment Reflex to microscopic UA will be performed. FRAN Comment:Testing performed by : [address] [address] Urine, clean voided 03/05/2024 3:40 PM CDT 03/05/2024 3:45 PM CDT us Victoria LEYVA LAB MICROBIOLOGY - GENERAL ORDERABLES Final Result Performing Organization Address [facility] Co de Phone Number JENNIF[address] [place] [address] * Troponin T high-sensitivity 2-hour (03/05/2024 3:14 PM CDT) Trop T hs <6 <=14 ng/L Comment: Interpretive Data For further hscTnT resources including the diagnostic algorithm and an aid in interpretation, copy and paste this link: https://nrl.testcatalog.org/show/hsTrop Current Interpretive Data last revised 2020. Testing performed by: [address] [address] Trop T hs delta 0 ng/L FARN Comment:Testing performed by : [address] [address] Trop T hs interp Insignificant FRAN Comment:Testing performed by : [address] [address] Blood 03/05/2024 3:14 PM CDT 03/05/2024 3:24 PM CDT us Ursula Thomas MD LAB BLOOD ORDERABLES Fin al Result Performing Organization Address City/[facility]/ZIP Co de Phone Number [place] [phone] [facility] [place] [address] * ECG 12 lead (03/05/2024 1:41 PM CDT) Pathologist [facility] Ventricular Rate EKG/Min 87 BPM [facility] Atrial Rate 87 BPM [facility] AL-Interval (MSEC) 140 ms [facility] QRS-Interval (MSEC) 84 ms [facility] QT-Interval (MSEC) 366 ms [facility] QTc 440 ms [facility] P [place] 34 degrees [facility] R [place] -6 degrees [facility] T [place] 32 degrees [facility] Diagnosis Normal sinus rhythm with sinus arrhythmia Otherwise normal ECG When compared with ECG of 20-NOV-2022 20:16, Confirmed by ROCIO PONCE M.D. ([id number]) on 03/06/2024 8:00:48 PM [facility] 03/05/2024 1:41 PM CDT 03/06/2024 8:00 PM CDT us Ursula Thomas MD ECG ORDERABLES Final Re sult [facility] * eGFR (03/05/2024 1:38 PM CDT) [facility] eGFR >90 >=60 mL/min/1. 73 m2 Comment: [...] of Race in Diagnosing Kidney Disease, JASN 202). The CKD-EPI equation should not be used for patients with unstable renal function and has not been validated in children and those over 70. Current interpretive data was last reviewed 2021. Testing performed by: [address] [address] Blood 03/05/2024 1:38 PM CDT 03/05/2024 2:03 PM CDT us Ursula Thomas MD LAB BLOOD ORDERABLES Fin al Result [facility]AN [facility] [place] [address] * Differential, auto (03/05/2024 1:38 PM CDT) Neutrophil abs 5.9 1.5 - 6.5 K/cumm Comment:Testing performed by : [address] [address] Imm gran abs 0.0 0.0 - 0.1 K/cumm FRAN Comment:Testing performed by : [address] [address] Lymphocyte abs 2.5 0.8 - 3.3 K/cumm FRAN Comment:Testing performed by : [address] [address] Monocyte abs 0.6 0.2 - 0.8 K/cumm FRAN Comment:Testing performed by : [address] [address] Eosinophil abs 0.2 0.0 - 0.5 K/cumm FRAN Comment:Testing performed by : [address] [address] Basophil abs 0.1 0.0 - 0.1 K/cumm FRAN Comment:Testing performed by : [address] [address] Neutrophil pct 63.3 % [facility] Comment: Interpretive Data Percent cell count reference ranges are not reported, since discordance with absolute values may lead to misinterpretation of CBC data. Current Interpretive Data was last revised on 2017. Testing performed by: [address] [address] Imm gran pct 0.2 % [facility] Comment: Interpretive Data Percent cell count reference ranges are not reported, since discordance with absolute values may lead to misinterpretation of CBC data. Current Interpretive Data was last revised on 2017. Testing performed by: [address] [address] Lymphocyte pct 26.8 % [facility] Comment: Interpretive Data Percent cell count reference ranges are not reported, since discordance with absolute values may lead to misinterpretation of CBC data. Current Interpretive Data was last revised on 2017. Testing performed by: [address] [address] Monocyte pct 6.5 % [facility] Comment: Interpretive Data Percent cell count reference ranges are not reported, since discordance with absolute values may lead to misinterpretation of CBC data. Current Interpretive Data was last revised on 2017. Testing performed by: [address] [address] Eosinophil pct 2.5 % [facility] Comment: Interpretive Data Percent cell count reference ranges are not reported, since discordance with absolute values may lead to misinterpretation of CBC data. Current Interpretive Data was last revised on 2017. Testing performed by: [address] [address] Basophil pct 0.7 % [facility] Comment: Interpretive Data Percent cell count reference ranges are not reported, since discordance with absolute values may lead to misinterpretation of CBC data. Current Interpretive Data was last revised on 2017. Testing performed by: [address] [address] Blood 03/05/2024 1:38 PM CDT 03/05/2024 2:03 PM CDT Ursula Thomas MD LAB BLOOD ORDERABLES Fin al Result Performing Organization Address [facility] Co de Phone Number JENNIFER[address] [place] [address] * Lipase (03/05/2024 1:38 PM CDT) [facility] Lipase 18 10 - 99 Units/L Comment:Testing performed by : [address] [address] Blood 03/05/2024 1:38 PM CDT 03/05/2024 2:03 PM CDT Victoria LEYVA LAB BLOOD ORDERABLES Final Result Performing Organization Address [facility] de Phone Number [address] [address] * Troponin T high-sensitivity series (baseline, 2hr, 4hr, 6hr) (03/05/2024 1:38 PM CDT) [facility] Trop T hs <6 <=14 ng/L Comment: Interpretive Data For further hscTnT resources including the diagnostic algorithm and an aid in interpretation, copy and paste this link: https://nrl.testcatalog.org/show/hsTrop Current Interpretive Data last revised 2020. Testing performed by: [address] [address] Blood 03/05/2024 1:38 PM CDT 03/05/2024 2:03 PM CDT Ursula Thomas MD LAB BLOOD ORDERABLES Fin al Result Performing Organization Address [facility] Co de Phone Number [address] [place] [address] * (ABNORMAL) CBC with auto differential (03/05/2024 1:38 PM CDT) [facility] WBC 9.4 3.8 - 9.9 K/cumm Comment:Testing performed by : [address] [address] Hgb 13.3 11.9 - 15.5 g/dL FRAN Comment:Testing performed by : [address] [address] Hct 40.9 35.6 - 45.5 % FRAN Comment:Testing performed by : [address] [address] Plt 421(H) 150 - 400 K/cumm FRAN Comment:Testing performed by : [address] [address] MPV 9.1 9.1 - 12.3 fL FRAN Comment:Testing performed by : [address], [address] RBC 5.08 3.90 - 5.20 M/cumm FRAN Comment:Testing performed by : [address] [address] MCV 80.5(L) 81.3 - 96.4 fL FRAN Comment:Testing performed by : [address] [address] MCH 26.2(L) 27.1 - 33.3 pg FRAN Comment:Testing performed by : [address] [address] MCHC 32.5 32.3 - 35.7 g/dL FRAN Comment:Testing performed by : [address], [address] RDW CV 13.3 11.1 - 14.9 % FRAN Comment:Testing performed by : [address] [address] RDW SD 38.6 35.7 - 48.1 fL FRAN Comment:Testing performed by : [address] [address] NRBC abs 0.00 0.00 - 0.01 K/cumm FRAN Comment:Testing performed by : [address], [address] Blood 03/05/2024 1:38 PM CDT 03/05/2024 2:03 PM CDT us Ursula Thomas MD LAB BLOOD ORDERABLES Fin al Result FRAN [address] [facility] [place] [address] * Comprehensive metabolic panel (03/05/2024 1:38 PM CDT) Sodium 141 135 - 145 mmol/L Comment:Testing performed by : [address] [address] Potassium, pl 3.5 3.3 - 4.9 mmol/L FRAN Comment:Testing performed by : [address] [address] Chloride 103 97 - 110 mmol/L FRAN Comment:Testing performed by : [address] [address] CO2 24 22 - 32 mmol/L FRAN Comment:Testing performed by : [address] [address] Anion gap 14 2 - 15 mmol/L FRAN Comment:Testing performed by : [address] [address] BUN 6 6 - 25 mg/dL FRAN Comment:Testing performed by : [address] [address] Creatinine 0.70 0.60 - 1.10 mg/dL FRAN Comment:Testing performed by : [address] [address] Glucose 110 70 - 199 mg/dL FRAN Comment: Interpretive [...] was last revised 2022. Testing performed by: [facility], [address] [place] [address]., [address] Calcium 9.4 8.5 - 10.3 mg/dL FRAN Comment:Testing performed by : [address] [address] Bilirubin, total 0.3 0.1 - 1.2 mg/dL FRAN Comment:Testing performed by : [address] [address] Protein, pl 7.8 6.5 - 8.5 g/dL FRAN Comment:Testing performed by : [address], [place]., [address] Albumin 4.2 3.5 - 5.0 g/dL FRAN Comment:Testing performed by : [address] [address] Alk phos 105 40 - 130 Units/L FRAN Comment:Testing performed by : [address] [address] ALT 20 7 - 45 Units/L FRAN Comment:Testing performed by : [address] [address] AST 21 10 - 45 Units/L FRAN Comment:Testing performed by : [address] [address] Blood 03/05/2024 1:38 PM CDT 03/05/2024 2:03 PM CDT us Ursula Thomas MD LAB BLOOD ORDERABLES Fin al Result [facility] [address] [facility] Department [place] [address] documented in this encounter Visit Diagnoses Diagnosis Nausea vomiting and diarrhea- Primary documented in this encounter Administered Medications Inactive Administered Medications - up to 3 most recent administrations Medication Order MAR Action Action Date Dose Rate Site dicyclomine (BENTYL) tablet 20 mg 20 mg, oral, Once, On Irene 03/05/24 at 1808, For 1 dose Given 03/05/2024 6:15 PM CDT 20 mg ioversoL (OPTIRAY 350) syringe 100 mL 100 mL, intravenous, Once in imaging, contrast, Starting on Irene 03/05/24 at 1711, For 1 dose Contrast Given 03/05/2024 5:15 PM CDT 100 mL ketorolac (TORADOL) 30 mg/mL injection 30 mg 30 mg, intravenous, Once, On Irene 03/05/24 at 1524, For 1 dose, For Adult IV push, administer over 15 seconds Given 03/05/2024 3:45 PM CDT 30 mg metoclopramide (REGLAN) 5 mg/mL injection 5 mg 5 mg, intravenous, Administer over 1 Minutes, Once, On Irene 03/05/24 at 1524, For 1 dose Given 03/05/2024 3:47 PM CDT 5 mg morphine injection 4 mg 4 mg, intravenous, Administer over 4 Minutes, Once, On Irene 03/05/24 at 1657, For 1 dose Given 03/05/2024 5:03 PM CDT 4 mg ondansetron (ZOFRAN) injection 4 mg 4 mg, intravenous, Administer over 2 Minutes, Once, On Irene 03/05/24 at 1604, For 1 dose Given 03/05/2024 4:07 PM CDT 4 mg prochlorperazine (COMPAZINE) injection 5 mg 5 mg, intravenous, Administer over 2 Minutes, Once, On Irene 03/05/24 at 1657, For 1 dose Given 03/05/2024 5:04 PM CDT 5 mg sodium chloride 0.9% bolus 1,000 mL 1,000 mL, intravenous, at 1,000 mL/hr, Administer over 1 Hours, Once, On Irene 03/05/24 at 1506, For 1 dose New Bag 03/05/2024 3:12 PM CDT 1,000 mL 1000 mL/hr documented in this encounter Active and Recently Administered Medications Times are shown in CDT. Scheduled Medication Order 03/03/2024 03/04/2024 03/05/2024 dicyclomine (BENTYL) tablet 20 mg (COMPLETED) 20 mg, oral, Once, On Irene 03/05/24 at 1808, For 1 dose 1815 (Given - Provid er: Sarah Romero RN) ketorolac (TORADOL) 30 mg/mL injection 30 mg (COMPLETED) 30 mg, intravenous, Once, On Irene 03/05/24 at 1524, For 1 dose, For Adult IV push, administer over 15 seconds 1545 (Given - Provid er: Sarah Romero RN) metoclopramide (REGLAN) 5 mg/mL injection 5 mg (COMPLETED) 5 mg, intravenous, Administer over 1 Minutes, Once, On Irene 03/05/24 at 1524, For 1 dose 1547 (Given - Provid er: Sarah Romero RN) morphine injection 4 mg (COMPLETED) 4 mg, intravenous, Administer over 4 Minutes, Once, On Irene 03/05/24 at 1657, For 1 dose 1703 (Given - Provid er: Sarah Romero RN) ondansetron (ZOFRAN) injection 4 mg (COMPLETED) 4 mg, intravenous, Administer over 2 Minutes, Once, On Irene 24 at 1604, For 1 dose 1607 (Given - Provid er: Sarah Romero RN) prochlorperazine (COMPAZINE) injection 5 mg (COMPLETED) 5 mg, intravenous, Administer over 2 Minutes, Once, On Irene 03/05/24 at 1657, For 1 dose 1704 (Given - Provid er: Sarah Romero RN) sodium chloride 0.9% bolus 1,000 mL (COMPLETED) 1,000 mL, intravenous, at 1,000 mL/hr, Administer over 1 Hours, Once, On Irene 03/05/24 at 1506, For 1 dose 1512 (New Bag - Prov ider: Sarah Romero RN)1615 (Stopped - Provider: Sarah Romero RN) PRN Medication Order 03/03/2024 03/04/2024 03/05/2024 ioversoL (OPTIRAY 350) syringe 100 mL (COMPLETED) 100 mL, intravenous, Once in imaging, contrast, Starting on Irene 03/05/24 at 1711, For 1 dose 1715 (Contrast Given - Provider: Poonam Saavedra RT) documented in this encounter Orders Medications Ordered That Baldomero ht Not Have Been Administered Count Last Ordered Date First Ordered Date morphine injection 4 mg 1 03/05/2024 documented in this encounter Additional Health Concerns Infection Onset Date Last Indicated Resolved Time C. 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
--- OUTSIDE RECORDS SUMMARY | 2024-06-06 00:26 | XMS_ITS | Encounter Summary ---
Author Organization [facility] Healthcare Address [address] [place] [address] Care Team Providers Care Naval Aircrewman Operator Name Role Phone No, Physician Unavailable Lorie Vanessa NP Primary Care Provider [phone] Reason for Visit * Reason Comments Abdominal Pain Pt c/o diarrhea, shala sea, vomiting, abdominal pain and fatigue for 4 days. She is taking imodium, tums, tylenol and pedialyte Encounter Details Date Type Department Care Team (Late st Contact Info) Description 02/25/2024 4:30 PM CDT Office Visit [facility] at [address] [address] Brittany Frances NP [address] [place] [address] [address] [address] [place] [address] Viral gastroenteritis (Primary Dx) Social History Tobacco Use Types [...] file Legal Sex Female 6:55 PM MANAGER EXPRESS Gender Identity Female 06/06/2022 7:40 AM MANAGER EXPRESS Sexual Orientation Not on file documented as of this encounter Last Filed Vital Signs Vital Sign Reading Time Taken Comments Blood Pressure 106/90 02/25/2024 4:36 PM CDT Pulse 77 02/25/2024 4:36 PM CDT Temperature 36.8 ??C (98.2 ??F) 02/25/2024 4:36 PM CD T Respiratory Rate 24 02/25/2024 4:36 PM CDT Oxygen Saturation 98% 02/25/2024 4:36 PM CDT Inhaled Oxygen Concentration - - Weight 153.8 kg (339 lb) 02/25/2024 4:36 PM CDT Height 162.6 cm (5' 4 ) 02/25/2024 4:36 PM CDT Body Mass Index 58.19 02/25/2024 4:36 PM CDT documented in this encounter Patient Instructions * Patient Instructions* Brittany Frances, ROAD MIXER OPERATOR - 02/25/2024 4:30 PM CDT If you have no improvement or worsening of your symptoms, please follow up with your Primary Care Provider, Convenient Care and or Emergency Room. I strive to provide you with EXCELLENT service. You may receive a survey after your visit today. If you cannot rate your experience as EXCELLENT, please let us know how we can improve and better meet your needs. Thank you for choosing [facility]! It was my pleasure to see you today, I hope you feel better soon! Brittany Frances RELATIONSHIP CONSULTANT Abdominal Pain A serious cause of the abdominal pain can not be ruled out at this time. It is important that you carefully watch for changes in the abdominal pain that might suggest a serious condition (such as appendicitis that is difficult to diagnose early). See your doctor or return to the emergency department immediately if your condition gets worse. See your doctor tomorrow or as soon as possible if you are not getting better. These symptoms suggest serious causes of abdominal pain. Call your doctor or return to the emergency department if you are feeling worse or if: 1. You are unable to walk easily or are walking in a bent-over position. 2. Stepping or jumping results in severe pain. 3. You are experiencing pain in the right lower part of the abdomen. 4. The abdomen is hard and painful when you press on it. 5. There is severe abdominal pain when coughing. 6. You are vomiting or gagging. 7. Vomiting is bloody or green or looks like chocolate or coffee. 8. The belly looks very full or big. 9. You are experiencing severe pain every 3 to 20 minutes. 10. Stool (poop) is bloody or black. 11. You are drowsy, weak, fussy, or pale * Attachments The following attachments cannot be sent through Care Everywhere. * Gastroenteritis (AfterCare(R) Instructions(ER/ED)) (Albanian) documented in this encounter Ordered Prescriptions Prescription Sig Dispense Quantity Refills Last Filled Start Date End Date ondansetron ODT (ZOFRAN-ODT) 4 mg disintegrating tabletIndications:Vir al gastroenteritis Take 1 tablet (4 mg total) by mouth every 8 (eight) hours as needed for nausea or vomiting 20 tablet 02/25/2024 4 documented in this encounter Progress Notes * Brittany Frances NP - 02/25/2024 4:30 PM CDT Images from the original note were not included. Subjective/Objective Patient ID: Emily Guerrier is a 28 y.o. female. Chief Complaint Abdominal Pain (Pt c/o diarrhea, nausea, vomiting, abdominal pain and fatigue for 4 days. She is taking imodium, tums, tylenol and pedialyte ) 28 year old female patient presents today with complaints of diarrhea, nausea x 4 days. Patient reports that she began vomiting today. Patient any hematochezia or hematemesis. Reports she is unsure of her last menstrual cycle she does have a history of PCOS and does not regularly have cycles. Reports she has had ovarian cyst however this does not feel similar. Patient reports some lower abdominalpressure and tenderness. Denies any previous abdominal surgeries. Denies any urinary symptoms. Denies any vaginal discharge. Reports she does currently see GI for acid reflux. Reports she has been out of her Zofran due to not seeing GI recently. Abdominal Pain This is a new problem. The current episode started in the past 7 days. The onset quality is sudden.The problem occurs constantly. The problem has been gradually worsening. The pain is located in thegeneralized abdominal region. The pain is at a severity of 5/10. The quality of the pain is cramping. The abdominal pain radiates to the right shoulder and back. Associated symptoms include anorexia, belching, diarrhea, flatus, headaches, myalgias, nausea and vomiting. Pertinent negatives include no arthralgias, constipation, dysuria, fever, frequency, hematochezia, hematuria, melena or weight loss. The pain is aggravated by deep breathing, eating and movement. The pain is relieved by Nothing. Review of Systems Constitutional: Negative for fever and weight loss. Gastrointestinal: Positive for abdominal pain, anorexia, diarrhea, flatus, nausea and vomiting. Negative for constipation, hematochezia and melena. Genitourinary: Negative for dysuria, frequency and hematuria. Musculoskeletal: Positive for myalgias. Negative for arthralgias. Neurological: Positive for headaches. All other systems reviewed and are negative. Physical Exam Vitals reviewed. Constitutional: Appearance: Normal appearance. She is normal weight. She is not ill-appearing. HENT: Head: Normocephalic. Right Ear: Tympanic membrane, ear canal and external ear normal. Left Ear: Tympanic membrane, ear canal and external ear normal. Nose: Nose normal. Mouth/Throat: Mouth: Mucous membranes are moist. Pharynx: Oropharynx is clear. Eyes: Pupils: Pupils are equal, round, and reactive to light. Cardiovascular: Rate and Rhythm: Normal rate and regular rhythm. Pulses: Normal pulses. Heart sounds: Normal heart sounds. Pulmonary: Effort: Pulmonary effort is normal. Breath sounds: Normal breath sounds. Abdominal: Tenderness: There is abdominal tenderness in the right lower quadrant, suprapubic area and left lower quadrant. Musculoskeletal: General: Normal range of motion. Cervical back: Normal range of motion. Skin: General: Skin is warm and dry. Capillary Refill: Capillary refill takes less than 2 seconds. Neurological: General: No focal deficit present. Mental Status: She is alert and oriented to person, place, and time. Mental status is at baseline. Psychiatric: Mood and Affect: Mood normal. Behavior: Behavior normal. Thought Content: Thought content normal. Judgment: Judgment normal. Vitals: 02/25/24 1636 BP: 106/90 Pulse: 77 Resp: 24 Temp: 36.8 ??C (98.2 ??F) SpO2: 98% Weight: (!) 153.8 kg (339 lb) Height: 162.6 cm (5' 4 ) No results found. Past Medical History: Diagnosis Date Anxiety 2017 Asthma suspected, pending PFTs 2022 Brain concussion Depression 2018 Dysmenorrhea 2016 GERD (gastroesophageal reflux disease) Infection Constantly sick Irritable bowel syndrome Menstrual problem 2014 Migraines Motion sickness Nausea Polycystic ovary syndrome Postural orthostatic tachycardia syndrome (POTS) Seizures (HCC) History of febrile seizures as an /toddler Current Outpatient Medications: cetirizine (ZyrTEC) 10 mg [...] 3 lamoTRIgine (LaMICtal) 100 mg tablet, Take 1.5 tablets (150 mg total) by mouth daily 1/2 in AM and 1 in PM, Disp: , Rfl: magnesium oxide (MAG-OX) 400 mg (241.3 mg elemental magnesium) tablet, TAKE 1 TABLET(400 MG) BY MOUTH DAILY, Disp: 90 tablet, Rfl: [address] (PROTONIX) 40 mg EC tablet, Take 1 tablet (40 mg total) by mouth daily, Disp: 30 tablet, Rfl: 3 propranolol LA (INDERAL LA) 60 mg 24 hr capsule, TAKE 1 CAPSULE(60 MG) BY MOUTH DAILY, Disp: 90 capsule, Rfl: 0 sertraline (ZOLOFT) 100 mg tablet, Take 2 tablets (200 mg total) by mouth nightly, Disp: , Rfl: cromolyn (GASTROCROM) 100 mg/5 mL solution, Take 10 mL (200 mg total) by mouth 4 (four) times a daybefore meals and nightly, Disp: 1200 mL, Rfl: 11 ondansetron ODT (ZOFRAN-ODT) 4 mg disintegrating tablet, Take 1 tablet (4 mg total) by mouth every 8 (eight) hours as needed for nausea or vomiting, Disp: 20 tablet, Rfl: 0 triamcinolone (NASACORT) 55 mcg nasal inhaler, Administer 2 sprays into each nostril daily Can increase to twice daily if symptoms persist, Disp: 16.9 mL, Rfl: 11 Allergies Allergen Reactions Adhesive Itching and Rash Fluoxetine Mental status changes Nitrofurantoin Itching Social [...] any previous visit (from the past 4 hour(s)). Diagnoses and all orders for this visit: Viral gastroenteritis (Primary) - ondansetron ODT (ZOFRAN-ODT) 4 mg disintegrating tablet; Take 1 tablet (4 mg total) by mouth every 8 (eight) hours as needed for nausea or vomiting Plan: Patient has signs and symptoms of viral gastroenteritis. There is mild tenderness over the suprapubic and bilateral lower quadrants however no evidence of acute abdomen. We will give patient trial of Zofran. If patient has continued symptoms and is unable to keep down fluid, recommend ER evaluation. If patient's abdominal pain increases, patient will proceed to the ED. Disposition Treatment plan including expectations, follow up, and return precautions discussed with patient/parent, verbalizes understanding. Medication dosage, use, and potential adverse reactions discussed with patient/parent. Advised to follow up with PCP if symptoms do not resolve as expected or sooner if condition worsens. Signs/symptoms warranting ER evaluation reviewed. Patient and/or guardian was given an opportunity to ask questions, questions answered. Brittany Frances NP documented in this encounter Plan of Treatment Not on file documented as of this encounter Visit Diagnoses Diagnosis Viral gastroenteritis- Primary Intestinal infection due to other organism, NEC documented in this encounter Discontinued Medications Medication Sig Discontinue Reason Start Date End Da te sucralfate (CARAFATE) 1 gram tabletIndications:Nausea and vomiting, unspecified vomiting type,Abdominal pain Take 1 tablet (1 g total) by mouth 4 (four) times a day Take 1 hour before meals and at bedtime 01/03/2023 02/25/2024 medroxyPROGESTERone (PROVERA) 10 mg tablet Take 1 tablet (10 mg total) by mouth daily Take 10 day course every 4-6 weeks 05/21/2023 02/25/2024 ondansetron (ZOFRAN) 8 mg tabletIndications:Nausea Take 1 tablet (8 mg total) by mouth every 6 (six) hours as needed for nausea or vomiting Therapy completed 07/23/2023 02/25/2024 documented as of this encounter Care Teams Naval Aircrewman Operator Relationship Specialty Start Date End Date Lorie Vanessa NP [address] [place] [id number] PCP - General Family Practice 05/29/22 No, Physician 06/08/21 documented as of this encounter
--- OUTSIDE RECORDS SUMMARY | 2024-06-06 00:26 | XMS_ITS | Encounter Summary ---
Author Organization [facility] Healthcare Address [address] [place] [address] Care Team Providers Care Voice Intercept Technician Name Role Phone No, Physician Unavailable Lorie Vanessa NP Primary Care Provider [phone] Encounter Details Date Type Department Care Team (Late st Contact Info) Description 07/19/2023 Plan of Care Documentation [facility] [address] [place] [address] Social History Tobacco Use Types Packs/Day Years [...] file Legal Sex Female 6:55 PM MANAGER LICENSING Gender Identity Female 06/06/2022 7:40 AM MANAGER LICENSING Sexual Orientation Not on file documented as of this encounter Plan of Treatment Not on file documented as of this encounter Visit Diagnoses Not on filedocumented in this encounter Care Teams Voice Intercept Technician Relationship Specialty Start Date End Date Lorie Vanessa NP [address] [place] [phone] PCP - General Family Practice 05/29/22 No, Physician 06/08/21 documented as of this encounter
--- OUTSIDE RECORDS SUMMARY | 2024-06-06 00:26 | XMS_ITS | Encounter Summary ---
Author Organization [facility] Healthcare Address [address] [place] [address] Care Team Providers Care Regulatory Submissions Associate Name Role Phone No, Physician Unavailable Lorie Vanessa NP Primary Care Provider Encounter Details Date Type Department Care Team (Late st Contact Info) Description 12/20/2023 Patient Self-Triage [facility]/ Phys[facility] [address] [place] [address] Mychart, Generic Provider [address] [place] [id number] Social History Tobacco Use Types Packs/Day [...] on file Legal Sex Female 6:55 PM SOCK DRIER Gender Identity Female 06/06/2022 7:40 AM SOCK DRIER Sexual Orientation Not on file documented as of this encounter Plan of Treatment Not on file documented as of this encounter Visit Diagnoses Not on filedocumented in this encounter Care Teams Regulatory Submissions Associate Relationship Specialty Start Date End Date Lorie Vanessa NP [address] [place] [id number] PCP - General Family Practice 05/29/22 No, Physician 06/08/21 documented as of this encounter
--- OUTSIDE RECORDS SUMMARY | 2024-06-06 00:27 | XMS_ITS | Encounter Summary ---
Author Organization [facility] Healthcare Address [address] [place] [address] Care Team Providers Care Repairer Sash And Door Name Role Phone No, Physician Unavailable Lorie Vanessa NP Primary Care Provider [phone] Reason for Visit * Reason Comments COVID-19 EVALUATION Encounter Details Date Type Department Care Team (Latest Contact Info) Description 07/05/2023 3:00 PM SCREENING UNIT REGISTERED NURSE Clinical Support [facility] Medical [facility] Care at [address] [address] Encounter for screening for COVID-19 (Primary Dx) Social History Tobacco Use Types [...] on file Legal Sex Female 6:55 PM SCREENING UNIT REGISTERED NURSE Gender Identity Female 06/06/2022 7:40 AM SCREENING UNIT REGISTERED NURSE Sexual Orientation Not on file documented as of this encounter Progress Notes * Poonam Finn MA - 07/05/2023 3:00 PM CST Patient here for [facility] health testing ENING UNIT REGISTERED NURSE documented in this encounter Plan of Treatment Not on file documented as of this encounter Visit Diagnoses Diagnosis Encounter for screening for COVID-19- Primary documented in this encounter Additional Health Concerns Infection Onset Date Last Indicated Resolved Time COVID: Suspected 07/05/2023 07/05/2023 07/05/2023 8:07 PM SCREENING UNIT REGISTERED NURSE documented as of this encounter Care Teams Repairer Sash And Door Relationship Specialty Start Date End Date Lorie Vanessa NP [address] [place] [id number] PCP - General Family Practice 05/29/22 No, Physician 06/08/21 documented as of this encounter
--- OUTSIDE RECORDS SUMMARY | 2024-06-06 00:27 | XMS_ITS | Encounter Summary ---
Author Organization [facility] Healthcare Address [address] [place] [address] Care Team Providers Care Supervisor Machining Name Role Phone No, Physician Unavailable Lorie Vanessa NP Primary Care Provider [phone] Reason for Visit * Reason Comments URI Fatigue; runny nose; chills; Encounter Details Date Type Department Care Team (Late st Contact Info) Description 05/29/2023 4:00 PM POPULATION HEALTH COACH Office Visit [facility] Medical [facility] Primary Care at [address] [address] Lorie Vanessa NP [address] [place] [phone] Upper respiratory infection with cough and congestion (Primary Dx); Cough, unspecified type; Body aches Social History Tobacco Use Types Packs/Day Years [...] on file Legal Sex Female 6:55 PM POPULATION HEALTH COACH Gender Identity Female 06/06/2022 7:40 AM POPULATION HEALTH COACH Sexual Orientation Not on file documented as of this encounter Last Filed Vital Signs Vital Sign Reading Time Taken Comments Blood Pressure 127/83 05/29/2023 3:56 PM POPULATION HEALTH COACH Pulse 88 05/29/2023 3:56 PM POPULATION HEALTH COACH Temperature 35.6 ??C (96.1 ??F) 05/29/2023 3:56 PM CS T Respiratory Rate 14 05/29/2023 3:56 PM POPULATION HEALTH COACH Oxygen Saturation 97% 05/29/2023 3:56 PM POPULATION HEALTH COACH Inhaled Oxygen Concentration - - Weight 155.8 kg (343 lb 8 oz) 05/29/2023 3:56 PM POPULATION HEALTH COACH Height 162.6 cm (5' 4.02 ) 05/29/2023 3:56 PM CS T Body Mass Index 58.93 05/29/2023 3:56 PM POPULATION HEALTH COACH documented in this encounter Patient Instructions * Patient Instructions* Lorie Vanessa NP - 05/29/2023 4:00 PM POPULATION HEALTH COACH COVID-19, influenza, and RSV test were negative. Increase clear liquids, rest, and vitamin C in diet. Sleep with head elevated and use a cool mist vaporizer and Vicks VapoRub at bedtime for cough andcongestion. Follow-up if symptoms don't resolve, ER for new or worsening symptoms. LATION HEALTH COACH documented in this encounter Progress Notes * Lorie Vanessa NP - 05/29/2023 4:00 PM CST Images from the original note were not included. Assessment/Plan: Assessment/Plan Diagnoses and all orders for this visit: Upper respiratory infection with cough and congestion (Primary) Assessment & Plan: Instructed to increase clear liquids, rest, and vitamin C in diet. Advised to sleep with head elevated and use a cool mist vaporizer and Vicks VapoRub at bedtime for cough and congestion. Recommended follow-up if symptoms don't resolve, ER for new or worsening symptoms. Cough, unspecified type Assessment & Plan: COVID-19, influenza, and RSV test were negative, see plan of care for upper respiratory infection with cough and congestion. Orders: - POCT rapid RSV - POC Influenza A/B, COVID-19 antigen Body aches Assessment & Plan: COVID-19, influenza, and RSV test were negative, see plan of care for upper respiratory infection with cough and congestion. Orders: - POCT rapid RSV - POC Influenza A/B, COVID-19 antigen F/u if symptoms not improving or worsen. Strict return/ED precautions discussed. Subjective: Emily Guerrier is a 27 y.o. female here for a visit to discuss her acute symptoms consisting of the following: Cough This is a new problem. The current episode started in the past 7 days. The problem has been gradually worsening. The problem occurs every few minutes. The cough is Non-productive and productive of sputum. Associated symptoms include chills, a fever, headaches, myalgias, nasal congestion, postnasal drip and rhinorrhea. Pertinent negatives include no chest pain, ear congestion, ear pain, heartburn,hemoptysis, rash, sore throat, shortness of breath, sweats, weight loss or wheezing. Nothing aggravates the symptoms. Chief Complaint Patient presents with URI Fatigue; runny nose; chills; She went to the Urgent Care last Saturday, was not tested for COVID, influenza, or RSV, was treated aZpak and prednisone 40 mg daily for 5 days, states symptoms have not improved. 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 Review of Systems Constitutional: Positive for chills, fever and unexpected weight change (weight gain). Negative forweight loss. HENT: Positive for postnasal drip and rhinorrhea. Negative for ear pain and sore throat. No loss of taste or smell. Respiratory: Positive for cough. Negative for hemoptysis, chest tightness, shortness of breath and wheezing. Cardiovascular: Negative for chest pain. Gastrointestinal: Negative for diarrhea, heartburn, nausea and vomiting. Musculoskeletal: Positive for myalgias. Negative for arthralgias. Skin: Negative for rash. Neurological: Positive for headaches. Objective: Vital signs were reviewed. Vitals: 05/29/23 1556 BP: 127/83 BP Location: Left arm Patient Position: Sitting Pulse: 88 Resp: 14 Temp: (!) 35.6 ??C (96.1 ??F) TempSrc: Temporal SpO2: 97% Weight: (!) 155.8 kg (343 lb 8 oz) Height: 162.6 cm (5' 4.02 ) Physical Exam Vitals and nursing note reviewed. Constitutional: General: She is not in acute distress. Appearance: Normal appearance. She is not ill-appearing, toxic-appearing or diaphoretic. HENT: Head: Normocephalic and atraumatic. Right Ear: Tympanic membrane, ear canal and external ear normal. There is no impacted cerumen. Left Ear: Tympanic membrane, ear canal and external ear normal. There is no impacted cerumen. Nose: Nose normal. No congestion or rhinorrhea. Mouth/Throat: Mouth: Mucous membranes are moist. Pharynx: Oropharynx is clear. No oropharyngeal exudate or posterior oropharyngeal erythema. Eyes: General: No scleral icterus. Right eye: No discharge. Left eye: No discharge. Conjunctiva/sclera: Conjunctivae normal. Neck: Thyroid: No thyromegaly or thyroid tenderness. Cardiovascular: Rate and Rhythm: Normal rate and regular rhythm. Heart sounds: Normal heart sounds. No murmur heard. Pulmonary: Effort: Pulmonary effort is normal. Breath sounds: Normal breath sounds. No wheezing, rhonchi or rales. Musculoskeletal: Cervical back: Neck supple. Lymphadenopathy: Cervical: No cervical adenopathy. Skin: General: Skin is warm and dry. Coloration: Skin is not jaundiced or pale. Findings: No rash. Neurological: General: No focal deficit present. Mental Status: She is alert and oriented to person, place, and time. Psychiatric: Mood and Affect: Mood normal. Behavior: Behavior normal. Thought Content: Thought content normal. Lorie Vanessa MOBILE PHLEBOTOMIST BC LATION HEALTH COACH documented in this encounter Miscellaneous Notes * Assessment & Plan Note - Lorie Vaenssa NP - 05/31/2023 7:27 AM CSTAssociated Problem(s): Cough COVID-19, influenza, and RSV test were negative, see plan of care for upper respiratory infection with cough and congestion. LATION HEALTH COACH * Assessment & Plan Note - Lorie Vanessa NP - 05/31/2023 7:27 AM CSTAssociated Problem(s): Body aches COVID-19, influenza, and RSV test were negative, see plan of care for upper respiratory infection with cough and congestion. LATION HEALTH COACH * Assessment & Plan Note - Lorie Vanessa NP - 05/31/2023 7:26 AM CSTAssociated Problem(s): Upper respiratory infection with cough and congestion Instructed to increase clear liquids, rest, and vitamin C in diet. Advised to sleep with head elevated and use a cool mist vaporizer and Vicks VapoRub at bedtime for cough and congestion. Recommended follow-up if symptoms don't resolve, ER for new or worsening symptoms. LATION HEALTH COACH documented in this encounter Plan of Treatment Not on file documented as of this encounter Procedures Procedure Name Priority Date/Time Associated Diagnosis Comments POCT RAPID RSV Routine 05/29/2023 4:45 PM POPULATION HEALTH COACH Cough, unspecified type Body aches POC INFLUENZA A/B, COVID-19 ANTIGEN Routine 05/29/2023 4:20 PM POPULATION HEALTH COACH Cough, unspecified type Body aches documented in this encounter Results * POCT rapid RSV (05/29/2023 4:45 PM POPULATION HEALTH COACH) Rapid RSV, POC Negative Negative Lot Number [id number] Comment:Exp [id number] QC Control Line Acceptable Swab 05/29/2023 4:45 PM POPULATION HEALTH COACH Lorie Vanessa ADMINISTRATIVE SALES ASSISTANT POINT OF CARE TEST ORDERABLES Fi nal Result * POC Influenza A/B, COVID-19 antigen (05/29/2023 4:20 PM POPULATION HEALTH COACH) Influenza A Ag, POC Negative Negative [facility] [address] Influenza B Ag, POC Negative Negative [facility] COVID-19 Ag POC Presumptive Negative Presumptive Negative, Invalid [facility] [address] Comment:Lot [id number] Exp [id number] 24 Nasal 05/29/2023 4:20 PM POPULATION HEALTH COACH Lorie Vanessa ADMINISTRATIVE SALES ASSISTANT POINT OF CARE TEST ORDERABLES Fi nal Result Performing Organization Address City/State/[facility] Co de Phone Number [facility] [phone] documented in this encounter Visit Diagnoses Diagnosis Upper respiratory infection with cough and congestion- Primary Cough, unspecified type Body aches Generalized pain documented in this encounter Discontinued Medications Medication Sig Discontinue Reason Start Date End Da te azithromycin (ZITHROMAX) 250 mg tablet TAKE 2 TABLETS BY MOUTH FOR 1 DAY THEN TAKE 1 TABLET BY MOUTH EVERY DAY Therapy completed 05/24/2023 05/29/2023 benzonatate (TESSALON) 200 mg capsule TAKE 1 CAPSULE BY MOUTH 2 TO 3 TIMES PER DAY Other 05/24/2023 05/29/2023 fluconazole (DIFLUCAN) 150 mg tablet Take 1 tablet (150 mg total) by mouth daily Therapy completed 05/24/2023 05/29/2023 predniSONE (DELTASONE) 20 mg tablet TAKE 2 TABLETS BY MOUTH EVERY DAY FOR 5 DAYS Other 05/24/2023 05/29/2023 documented as of this encounter Historical Medications * This list may reflect changes made after this encounter. predniSONE (DELTASONE) 20 mg tablet TAKE 2 TABLETS BY MOUTH EVERY DAY FOR 5 DAYS 05/24/2023 05/29/2023 fluconazole (DIFLUCAN) 150 mg tablet Take 1 tablet (150 mg total) by mouth daily 05/24/2023 05/29/2023 benzonatate (TESSALON) 200 mg capsule TAKE 1 CAPSULE BY MOUTH 2 TO 3 TIMES PER DAY 05/24/2023 05/29/2023 azithromycin (ZITHROMAX) 250 mg tablet TAKE 2 TABLETS BY MOUTH FOR 1 DAY THEN TAKE 1 TABLET BY MOUTH EVERY DAY 05/24/2023 05/29/2023 added in this encounter Care Teams Supervisor Machining Relationship Specialty Start Date End Date Lorie Vanessa NP [address] [place] [address] PCP - General Family Practice 05/29/22 No, Physician 06/08/21 documented as of this encounter
--- OUTSIDE RECORDS SUMMARY | 2024-06-06 00:27 | XMS_ITS | Encounter Summary ---
Author Organization [facility] Healthcare Address [address] [place] [address] Care Team Providers Care Rotary Derrick Operator Name Role Phone No, Physician Unavailable Lorie Vanessa NP Primary Care Provider [phone] Reason for Visit * Reason Onset Date Comments COVID-19 EVALUATION 07/05/2023 Encounter Details Date Type Department Care Team (Late st Contact Info) Description 07/05/2023 Telephone [facility] Healthcare Occupatiuonal Health [address] [facility] [address] (Third Floor) [place] [address] Karen Ayala RN COVID-19 EVALUATION Social History Tobacco Use Types Packs/Day Years [...] on file Legal Sex Female 6:55 PM TIER LIFT TRUCK OPERATOR Gender Identity Female 06/06/2022 7:40 AM TIER LIFT TRUCK OPERATOR Sexual Orientation Not on file documented as of this encounter Miscellaneous Notes * Telephone Encounter - Anahi Main RN - 07/08/2023 8:07 AM TIER LIFT TRUCK OPERATOR Called to say she took a home Antigen test 07/07/2023 and it was Positive. Fatigue is new symptom. Positive COVID e-mail will be sent [facility] Covid Positive Test Result Employee will review guidance sent via email and reach out as needed with any questions. LIFT TRUCK OPERATOR LIFT TRUCK OPERATOR * Addendum Note - Lorie Atkinson CLT - 07/05/2023 7:25 PM CSTAddended by: LORIE ATKINSON on: 07/05/2023 07:25 PM Modules accepted: Orders LIFT TRUCK OPERATOR * Telephone Encounter - Karen Ayala RN - 07/05/2023 10:53 AM TIER LIFT TRUCK OPERATOR 05/26/2021 9:38 AM 06/12/2021 9:13 AM 07/05/2023 10:53 AM Employee COVID-19 Screening Email: [email or web address] Employee/Student ID# [id number] Slice Cutting Machine Operator Helper/Filtrose Crusher name [email or web address] email address: [email or web address] Kee Are you an employee or student? Employee Employee Employee Employer: [employer] Are you 100% JUDY? No Employee Facility: [facility] Are you okay receiving positive results and further instructions via email? 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 No Have you had a vaccine within the past 48 hours? No Have you been vaccinated against Covid-19? Yes Have you tested positive for COVID in the past 60 days? No Have you had a known, specific Covid exposure within the last 14 days? Yes Yes Did the exposure take place at work / on campus? Yes No Date of exposure: 05/18/2021 Name of the COVID-19 positive person to whom you were exposed: Coworker Was the person to whom you were exposed wearing a mask/face covering? No What PPE was employee wearing? None Description of exposure: not 15 minutes or more hh Employee Symptoms: Yes Yes Yes Date of employee symptom onset: 05/22/2021 06/07/2021 07/03/2023 Description of Symptoms: Cough;Sore Throat;Other;Fever Cough Cough;Fatigue;Runny Nose Other Symptoms: headache, chills, congestion Temperature: 99.6 Did you work on site 48 hours prior to symptom onset and/or any days while symptomatic? Yes Which date(s) did the employee work? 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 No Did you come within 6 feet for more than 15 minutes with any patients without wearing a mask duringthe 48 hours prior to symptom onset? And/or while symptomatic? No Plan: (A) Stay home and test for symptoms (A) Stay home and test for symptoms (A) Stay home and test for symptoms Testing Site Location: [facility] A0 (stay home and test) for symptomatic employees (HCW and Non-HCW) Thank you for calling the Occupational Health Call Center. This email contains the same informationand recommendations discussed during your call. You should also forward this information to your alterations supervisor as confirmation. Given your symptoms, you should not come to work and will be referred for combined COVID/Influenza/RSV testing. If you have had a COVID infection in the past 2 months, your COVID test will likely result positivedue to your prior infection. In this case, further guidance will be based solely on Influenza and RSV results. If you are at work on site, you must leave work now. Notify your alterations supervisor that you have been directed to do so by the Occupational Health Call Center. Please go to the employee testing site as directed for your test. They should be expecting you; if there is any confusion, please call us at [phone]. Since you are reporting symptoms, wear a hospital provided mask when reporting for your test. While you are awaiting testing and results, you must remain off work. You should isolate yourself at home, avoid contact with any household members as much as possible, and stay in your home without leaving except for medical care. You should let your alterations supervisor know that you will not be coming to work. Although we will email your alterations supervisor to confirm this, it is still your responsibility to notify your alterations supervisor as you wouldfor any other work absence. If you have the option to connection worker and you feel well enough, it must be approved by your alterations supervisor We will notify you of your test results, which are usually available within 24- 48 hours. Your results will also post to your [facility] My Chart account ([email or web address]). Once yourresults are back, you will receive further instruction from Occupational Health. All further communication, including test results and guidance on returning to work, will be through the email you provided us during your screening. You must follow any additional isolation or quarantine instructions provided to you by federal, state, or local health authorities. Sincerely, Occupational Health Call Center Additional resources around self-isolation and how to prevent spread are available at: www.cdc.gov/coronavirus/2019-ncov LIFT TRUCK OPERATOR documented in this encounter Plan of Treatment Not on file documented as of this encounter Results * Influenza A/B, RSV, and COVID-19 PCR Nasopharyngeal (07/05/2023 3:00 PM TIER LIFT TRUCK OPERATOR) COVID-19 RNA Negative Negative [facility] Influenza A RNA Negative Negative [facility] Influenza B RNA Negative Negative [facility] RSV RNA Negative Negative [facility] Comment: Interpretive data: Testing performed by [facility]. This test is performed using the [employer] Xpert Xpress CoV-2/Flu/RSV plus assay. This is a multiplex, real-time reverse transcriptase PCR assay intended for the qualitative detection of nucleic acid from SARS-CoV-2, influenza A, influenza B, and respiratory syncytial virus. This assay has been cleared by the [place] Food and Drug administration. The performance characteristics have been verified by the [facility]. ??Results must be considered in the clinical context, and a negative result does not rule out infection. Interpretive Data last revised 2023 Nasopharyngeal 07/05/2023 3: 00 PM TIER LIFT TRUCK OPERATOR 07/05/2023 7:29 PM TIER LIFT TRUCK OPERATOR Narrative [facility] - 07/05/2023 8:06 PM TIER LIFT TRUCK OPERATOR Bill to [facility] - 1520 Patient is employed by/enrolled at:->[employer] Is the patient experiencing any symptoms consistent with COVID (eg. Fever, cough, shortness of breath)?->Yes Reason for testing?->Symptomatic Is the Patient experiencing symptoms consistent with COVID?->Yes Quan Graf MD LAB MICROBIOLOGY - GENERAL OR DERABLES Final Result FRAN [address] Department of Laboratories [place], [place] [id number] documented in this encounter Visit Diagnoses Diagnosis Runny nose- Primary Other diseases of nasal cavity and sinuses Close exposure to COVID-19 virus Runny nose Other diseases of nasal cavity and sinuses Close exposure to COVID-19 virus documented in this encounter Additional Health Concerns Infection Onset Date Last Indicated Resolved Time COVID: Suspected 07/05/2023 07/05/2023 07/05/2023 8:07 PM TIER LIFT TRUCK OPERATOR documented as of this encounter Care Teams Rotary Derrick Operator Relationship Specialty Start Date End Date Brooks, Lorie R., DIESEL MOTOR MECHANIC [address] [place] [phone] PCP - General Family Practice 05/29/22 No, Physician 06/08/21 documented as of this encounter
--- OUTSIDE RECORDS SUMMARY | 2024-06-06 00:27 | XMS_ITS | Encounter Summary ---
Author Organization [facility] Healthcare Address [address] [place] [address] Care Team Providers Care Housekeeping Department Worker Name Role Phone No, Physician Unavailable Lorie Vanessa NP Primary Care Provider [phone] Encounter Details Date Type Department Care Team (Late st Contact Info) Description 07/02/2023 Patient Self-Triage [facility] HealthCare/ Physicians [address] [place] [address] Mychart, Generic Provider [address] [place] [address] Social History Tobacco Use Types Packs/Day [...] on file Legal Sex Female 6:55 PM APRICOT WASHER Gender Identity Female 06/06/2022 7:40 AM APRICOT WASHER Sexual Orientation Not on file documented as of this encounter Plan of Treatment Not on file documented as of this encounter Visit Diagnoses Not on filedocumented in this encounter Care Teams Housekeeping Department Worker Relationship Specialty Start Date End Date Lorie Vanessa NP [address] [place] [phone] PCP - General Family Practice 05/29/22 No, Physician 06/08/21 documented as of this encounter
--- OUTSIDE RECORDS SUMMARY | 2024-06-06 00:27 | XMS_ITS | Encounter Summary ---
Author Organization [facility] Address [address] [place] [address] Phone Care Team Providers Care Tea Blender Name Role Phone No, Physician Unavailable Lorie Vanessa NP Primary Care Provider [phone] Encounter Details Date Type Department Care Team (Late st Contact Info) Description 07/16/2023 Orders Only [facility] Orthopaedic Surgery [address] [facility] 1st Floor [address] [place] [address] Katey Guerrero, RN Closed displaced fracture of fifth metatarsal bone of right foot, initial encounter (Primary Dx) Social History Tobacco Use Types [...] on file Legal Sex Female 6:55 PM GOLF CLUB HEAD FORMER Gender Identity Female 06/06/2022 7:40 AM GOLF CLUB HEAD FORMER Sexual Orientation Not on file documented as of this encounter Plan of Treatment Not on file documented as of this encounter Visit Diagnoses Diagnosis Closed displaced fracture of fifth metatarsal bone of right foot, initial encounter- Primary documented in this encounter Care Teams Tea Blender Relationship Specialty Start Date End Date Lorie Vanessa NP [address] [place] [address] PCP - General Family Practice 05/29/22 No, Physician 06/08/21 documented as of this encounter
--- OUTSIDE RECORDS SUMMARY | 2024-06-06 00:27 | XMS_ITS | Encounter Summary ---
Author Organization [facility] Healthcare Address [address] [place] [address] Care Team Providers Care Medical Office Professional Instructor Name Role Phone No, Physician Unavailable Lorie Vanessa NP Primary Care Provider [phone] Reason for Visit * Reason Onset Date Comments Medical Question/Miscellaneous 07/02/2023 Encounter Details Date Type Department Care Team ([facility] st Contact Info) Description 07/02/2023 Telephone [facility] Medical Group Primary Care at [address] [place] [address] Lorie Vanessa NP [address] [place] [address] Medical Question/Miscellaneous Social History Tobacco Use Types Packs/Day Years [...] on file Legal Sex Female 6:55 PM LOG GETTER Gender Identity Female 06/06/2022 7:40 AM LOG GETTER Sexual Orientation Not on file documented as of this encounter Miscellaneous Notes * Telephone Encounter - Pili Finn - 07/02/2023 12:28 PM CST Coming to weight loss seminar on 07/30/2023 GETTER * Telephone Encounter - Afshan Mejia - 07/02/2023 12:20 PM CST Medical Question/Miscellaneous Caller???s Concern: New [facility] appointment scheduled for 09/05/23. Does message need to be routed? Yes-Action Needed GETTER documented in this encounter Plan of Treatment Not on file documented as of this encounter Visit Diagnoses Not on filedocumented in this encounter Additional Health Concerns Infection Onset Date Last Indicated Resolved Time COVID: Suspected 07/05/2023 07/05/2023 07/05/2023 8:07 PM LOG GETTER documented as of this encounter Care Teams Medical Office Professional Instructor Relationship Specialty Start Date End Date Lorie Vanessa NP [address] [place] [address] PCP - General Family Practice 05/29/22 No, Physician 06/08/21 documented as of this encounter
--- OUTSIDE RECORDS SUMMARY | 2024-06-06 00:27 | XMS_ITS | Encounter Summary ---
Author Organization [facility] Healthcare Address [address] [place] [address] Care Team Providers Care Outreach Consultant Name Role Phone No, Physician Unavailable Lorie Vanessa NP Primary Care Provider [phone] Encounter Details Date Type Department Care Team (Late st Contact Info) Description 06/17/2023 Orders Only [facility] Medical Group Obstetrical Gynecology [address] [facility] [address] [place] [phone] Sita Lin MD [address] [address] Secondary amenorrhea (Primary Dx) Social History Tobacco Use Types [...] on file Legal Sex Female 6:55 PM FINANCIAL SALES 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 Gender Identity Female 06/06/2022 7:40 AM FINANCIAL SALES ASSOCIATE Sexual Orientation Not on file documented as of this encounter Plan of Treatment Not on file documented as of this encounter Results * Estradiol (10/08/2023 11:38 AM CDT) Estradiol [...] CDT 10/08/2023 2:43 PM CDT Narrative FRAN HAYS - 10/08/2023 3:10 PM CDT Is patient taking Fulvestrant?->No us Sita Lin MD LAB BLOOD ORDERABLES Final R esult FRAN [address] [facility] Department [place] [address] * LH (10/08/2023 11:38 AM CDT) LH [...] ORDERABLES Final R esult Performing Organization Address [facility] Co de Phone Number FRAN [address] [place] [address] * Follicle stimulating hormone (10/08/2023 11:38 AM CDT) FSH 4.7 1.5 - 12.4 IUnits/L Blood 10/08/2023 11:3 8 AM CDT 10/08/2023 2:43 PM CDT Sita Lin MD LAB BLOOD ORDERABLES Final R esult Performing Organization Address City/[facility] Co de Phone Number [address] [place] [address] * Varicella Zoster IgG antibody Blood (10/08/2023 11:38 AM CDT) VZV IgG Reactive Reactive Comment: Reactive: Results suggest response to immunization or prior exposure to the virus. Testing performed by: [facility], [address] [facility], [place]., [address] Blood 10/08/2023 11:3 8 AM CDT 10/08/2023 5:24 PM CDT Sita Lin MD LAB MICROBIOLOGY - GENERAL O RDERABLES Final Result Performing Organization Address [facility] Co de Phone Number FRAN [address] [facility] [place] [address] * Rubella IgG antibody Blood (10/08/2023 11:38 AM CDT) Rubella IgG Reactive Reactive Blood 10/08/2023 11:3 8 AM CDT 10/08/2023 6:26 PM CDT Sita Lin MD LAB MICROBIOLOGY - GENERAL O RDERABLES Final Result Performing Organization Address [facility] de Phone Number [facility] [address] [facility] [place] [address] * Hemoglobin A1c (10/08/2023 11:38 AM CDT) Pathologist [facility] Hgb A1C 5.3 4.0 - 5.6 % Comment:Testing performed by : [address] [address] Estimated Average Glucose 105 mg/dL FRAN Comment: The ADA recommends reporting an estimated Average Glucose (eAG) with all Hemoglobin A1c results using the equation derived from a study of 507 normal and diabetic adults. ??Minority populations were underrepresented and children were not included. ?? (Diabetes Care 31:8622-7352, 2008). ??The eAG is not equivalent to a fasting glucose. Testing performed by: [address] [address] Blood 10/08/2023 11:3 8 AM CDT 10/08/2023 1:50 PM CDT Sita Lin MD LAB BLOOD ORDERABLES Final R esult Performing Organization Address [facility] Co de Phone Number [place] [address] [facility] [place] [address] * Sex hormone binding globulin (10/08/2023 11:38 AM CDT) Sex steroid binding globulin 22.6 18.2 - 135.5 nmol/L [facility] Comment: Test Performed by: [facility] [address] [place] [address] Commodities Trader: Lexx Pierre M.D. Ph.D.; CLIA# [id number] Testing performed by: [facility], [address] [place] [address]., [address] Blood 10/08/2023 11:3 8 AM CDT 10/08/2023 4:07 PM CDT Sita Lin MD LAB BLOOD ORDERABLES Final R esult Performing Organization Address City/[facility]/ZIP Co de Phone Number FRAN [address] [place] [address] [facility] * Insulin, total (10/08/2023 11:38 AM CDT) Pathologist [facility] Insulin 18.5 2.6 - 25.0 mcIUnit/mL Blood 10/08/2023 11:3 8 AM CDT 10/08/2023 2:43 PM CDT Sita Lin MD LAB BLOOD ORDERABLES Final R esult [address] [place] [address] * DHEA-sulfate (10/08/2023 11:38 AM CDT) DHEA-S 121.0 98.8 - 340.0 mcg/dL Comment:Testing performed by : [facility], [address] [facility], [place]., [address] Blood 10/08/2023 11:3 8 AM CDT 10/08/2023 5:24 PM CDT Sita Lin MD LAB BLOOD ORDERABLES Final R esult Performing Organization Address [facility] de Phone Number FRAN [address] [address] * 17-Hydroxyprogesterone (10/08/2023 11:38 AM CDT) 17-hydroxyprogestero ne <40 ng/dL [facility] Comment: REFERENCE VALUE < 80 (Follicular) <285 (Luteal) ADDITIONAL INFORMATION This test was developed and its performance characteristics determined by [facility] in a manner consistent with CLIA requirements. This test has not been cleared or approved by the U.S. Food and Drug Administration. Test Performed by: [facility] [address] [place] [address] Commodities Trader: Lexx Pierre M.D. Ph.D.; CLIA# [id number] Testing performed by: [facility], [address] [place] [address]., [address] Blood 10/08/2023 11:3 8 AM CDT 10/08/2023 1:50 PM CDT Sita Lin MD LAB BLOOD ORDERABLES Final R esult Performing Organization Address [facility] Co de Phone Number FRAN [address] [place] [address] [facility] * Total testosterone (10/08/2023 11:38 AM CDT) Testosterone 29.90 8.40 - 48.10 ng/dL Blood 10/08/2023 11:3 8 AM CDT 10/08/2023 2:43 PM CDT Sita Lin MD LAB BLOOD ORDERABLES Final R esult Performing Organization Address City/[facility]/ZIP Co de Phone Number FRAN [address] [place] [address] * Prolactin (10/08/2023 11:38 AM CDT) Prolactin 17.8 4.8 - 23.3 ng/mL Comment:Testing performed by : [facility], [address] [place]., [address] Blood 10/08/2023 11:3 8 AM CDT 10/08/2023 5:24 PM CDT Sita Lin MD LAB BLOOD ORDERABLES Final R esult Performing Organization Address [facility] Co de Phone Number FRAN [address] [address] documented in this encounter Visit Diagnoses Diagnosis Secondary amenorrhea- Primary Absence of menstruation Secondary amenorrhea Absence of menstruation documented in this encounter Care Teams Outreach Consultant Relationship Specialty Start Date End Date Lorie Vanessa NP [address] [place] [address] PCP - General Family Practice 05/29/22 No, Physician 06/08/21 documented as of this encounter
--- OUTSIDE RECORDS SUMMARY | 2024-06-06 00:27 | XMS_ITS | Encounter Summary ---
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 Gender Identity Female 06/06/2022 7:40 AM FORM BUILDER Sexual Orientation Not on file documented as of this encounter Plan of Treatment Not on file documented as of this encounter Procedures Procedure Name Priority Date/Time Associated Diagnosis Comments SCAN - RADIOLOGY/IMAGING 07/10/2023 documented in this encounter Results * SCAN - RADIOLOGY/IMAGING (07/10/2023) Anatomical Region Laterality Modality Other us Provider Scanning Final Result documented in this encounter Visit Diagnoses Not on filedocumented in this encounter Care Teams Butadiene Converter Utility Operator Relationship Specialty Start Date End Date Lorie Vanessa NP [address] [place] [address] PCP - General Family Practice 05/29/22 No, Physician 06/08/21 documented as of this encounter
--- OUTSIDE RECORDS SUMMARY | 2024-06-06 00:27 | XMS_ITS | Encounter Summary ---
Author Organization [facility] Healthcare Address [address] [place] [address] Care Team Providers Care Director On Air Name Role Phone No, Physician Unavailable Lorie Vanessa NP Primary Care Provider [phone] Encounter Details Date Type Department Care Team (Latest Contact Info) Description 05/17/2023 12:02 PM GAS CHARGER - 05/17/2023 11:59 PM GAS CHARGER Hospital Encounter [facility] Building [address] [address] Well woman exam Discharge Disposition: Discharge to home or self [...] on file Legal Sex Female 6:55 PM GAS CHARGER Gender Identity Female 06/06/2022 7:40 AM GAS CHARGER Sexual Orientation Not on file documented as [...] mg total) by mouth daily as needed lamoTRIgine (LaMICtal) 100 mg tablet Take 1 tablet (100 mg total) by mouth nightly 12/28/2021 sertraline (ZOLOFT) 100 mg tablet Take 2 tablets (200 mg total) by mouth nightly triamcinolone (NASACORT) 55 mcg nasal inhalerIndications :Allergic Rhinitis,Chronic Non-Allergic Rhinitis Administer 2 sprays into each nostril daily Can increase to twice daily if symptoms persist 16.9 mL 09/04/2022 cromolyn (GASTROCROM) 100 mg/5 mL solutionIndication s:systemic mastocytosis Take 10 mL (200 mg total) by mouth 4 (four) times a day before meals and nightly 1200 mL 11 12/03/2022 4 dicyclomine (BENTYL) 20 mg tablet TAKE 1 TABLET BY MOUTH FOUR TIMES DAILY NEEDED FOR ABDOMINAL DISCOMFORT 04/07/2023 4 famotidine (PEPCID) 40 mg tabletIndications: Gastroesophageal reflux disease without esophagitis TAKE 1 TABLET(40 MG) BY MOUTH EVERY NIGHT NEEDED FOR HEARTBURN 30 tablet 3 01/08/2023 3 magnesium oxide (MAG-OX) 400 mg (241.3 mg elemental magnesium) tablet TAKE 1 TABLET(400 MG) BY MOUTH DAILY 90 tablet 1 01/22/2023 4 medroxyPROGESTERon e (PROVERA) 10 mg tablet Take 1 tablet (10 mg total) by mouth daily Take once every 4-6 weeks 10 tablet 3 05/17/2023 3 medroxyPROGESTERon e (PROVERA) 10 mg tablet Take 1 tablet (10 mg total) by mouth daily Take 10 day course every 4-6 weeks 10 tablet 3 05/21/2023 4 ondansetron (ZOFRAN) 8 mg tabletIndications: Nausea Take 1 tablet (8 mg total) by mouth every 6 (six) hours as needed for nausea or vomiting 30 tablet 04/16/[address] (PROTONIX) 40 mg EC tabletIndications: Nausea,Right upper quadrant pain,Gastroesophag eal reflux disease without esophagitis Take 1 tablet (40 mg total) by mouth 2 (two) times a day 180 tablet 1 01/03/2023 4 propranolol LA (INDERAL LA) 60 mg 24 hr capsule Take 1 capsule (60 mg total) by mouth daily 30 capsule 11 07/13/2022 4 sucralfate (CARAFATE) 1 gram tabletIndications: Nausea [...] Procedure Name Priority Date/Time Associated Diagnosis Comments THINPREP PROCESSING (MOLECULAR COMPONENT) Routine 05/17/2023 11:10 AM GAS CHARGER Well woman exam PAP WITH REFLEX TO HIGH RISK HPV Routine 05/17/2023 11:10 AM GAS CHARGER Well woman exam documented in this encounter Results * ThinPrep processing (Molecular component) (05/17/2023 11:10 AM GAS CHARGER) ThinPrep processing (Molecular component) Specimen received for processing. FRAN HAYS Comment:Testing performed by : [facility], [address] [place]., [address] Endocervical 05/17/2023 11:1 0 AM GAS CHARGER 05/21/2023 8:31 AM GAS CHARGER us Sita Lin MD LAB BODY FLUIDS AND STOOLS O RDERABLES Final Result FRAN [address] [facility] [place] [address] * Pap with reflex to High Risk HPV and Genotyping (Cytology Component) (05/17/2023 11:10 AM GAS CHARGER) Endocervical (Pap test) 05/17/2023 11:10 AM GAS CHARGER 05/19/2023 11:35 PM GAS CHARGER Narrative PATHOLOGY [facility] - 05/23/2023 5:10 PM GAS CHARGER EPIC results best viewed via link to PDF [facility] Mad[facility] [place] [address] Note to Patients: This report may contain [...] Gender: ??F : ??1995 (Age: 27) Address: ??[address] [place] [id number] Hospital #: ??[id number] Service: ??DEFAULT Location: ?? Patient Type: ??[facility] SPECIMEN Taken: ??05/17/2023 Received: ??05/19/2023 Accessioned: [...] Report Electronically Reviewed and Signed Out By Kandsi Wilson MS, CT (ASCP) 05/23/2023 17:10:38 Cervicovaginal Cytology (Pap Test) Disclaimer: The Pap test is a screening test used to detect cervical cancer and its precursors; it is not a diagnostic procedure. False negative and false positive results do occur. Pap test results should be interpreted in the context of pertinent clinical information and biopsy results as indicated. [facility] Clinical Laboratory Improvement Amendments (CLIA) mandate that cytologic and histologic results be correlated for laboratory research quality assurance analyst & improvement standards. ??FOR ALL HIGH-GRADE [...] determined by the Surgical Pathology Department at [facility] as part of an ongoing quality assurance specialist program and in compliance with federally mandated [...] determined by the Surgical Pathology Department of [facility]. ??It has not been cleared or approved by the U. S. Food and Drug Administration. Sita Lin MD LAB CYTOLOGY ORDERABLES Magda moreau Result PATHOLOGY [facility] documented in this encounter Visit Diagnoses Diagnosis Well woman exam Routine general medical examination at a health care facility documented in this encounter Care Teams Director On Air Relationship Specialty Start Date End Date Lorie Vanessa NP [address] [place] [address] PCP - General Family Practice 05/29/22 No, Physician 06/08/21 documented as of this encounter
--- OUTSIDE RECORDS SUMMARY | 2024-06-06 00:27 | XMS_ITS | Encounter Summary ---
Author Organization [facility] Healthcare Address [address] [place] [address] Care Team Providers Care Payroll Accountant Name Role Phone No, Physician Unavailable Lorie Vanessa NP Primary Care Provider [phone] Encounter Details Date Type Department Care Team (Latest Contact Info) Description 07/05/2023 3:00 PM FRAME OPERATOR - 07/05/2023 11:59 PM FRAME OPERATOR Hospital Encounter [facility] [address] [place] [address] Runny nose; Close exposure to COVID-19 virus Discharge Disposition: Discharge to home or self [...] on file Legal Sex Female 6:55 PM FRAME OPERATOR Gender Identity Female 06/06/2022 7:40 AM FRAME OPERATOR Sexual Orientation Not on file documented [...] DAILY NEEDED FOR ABDOMINAL DISCOMFORT 04/07/2023 4 magnesium oxide (MAG-OX) 400 mg (241.3 [...] Procedure Name Priority Date/Time Associated Diagnosis Comments INFLUENZA A/B, RSV, AND COVID-19 PCR Routine 07/05/2023 3:00 PM FRAME OPERATOR Runny nose Close exposure to COVID-19 virus documented in this encounter Results * Influenza A/B, RSV, and COVID-19 PCR Nasopharyngeal (07/05/2023 3:00 PM FRAME OPERATOR) Pathologist [facility] COVID-19 RNA Negative Negative [facility] Influenza A RNA Negative Negative [facility] Influenza B RNA Negative Negative [facility] RSV RNA Negative Negative [facility] Comment: Interpretive data: Testing performed by [facility]. This test is performed using the [employer] Xpert Xpress CoV-2/Flu/RSV plus assay. This is a multiplex, real-time reverse transcriptase PCR assay intended for the qualitative detection of nucleic acid from SARS-CoV-2, influenza A, influenza B, and respiratory syncytial virus. This assay has been cleared by the [place] Food and Drug administration. The performance characteristics have been verified by the [facility]. ??Results must be considered in the clinical context, and a negative result does not rule out infection. Interpretive Data last revised 2023 Nasopharyngeal 07/05/2023 3: 00 PM FRAME OPERATOR 07/05/2023 7:29 PM FRAME OPERATOR Narrative FRAN - 07/05/2023 8:06 PM FRAME OPERATOR Bill to [facility] [employer] Patient is employed by/enrolled at:->[employer] Is the patient experiencing any symptoms consistent with COVID (eg. Fever, cough, shortness of breath)?->Yes Reason for testing?->Symptomatic Is the Patient experiencing symptoms consistent with COVID?->Yes Quan Graf MD LAB MICROBIOLOGY - GENERAL OR DERABLES Final Result FRAN [address] Department [place] [address] documented in this encounter Visit Diagnoses Diagnosis Runny nose Other diseases of nasal cavity and sinuses Close exposure to COVID-19 virus documented in this encounter Additional Health Concerns Infection Onset Date Last Indicated Resolved Time COVID: Suspected 07/05/2023 07/05/2023 07/05/2023 8:07 PM FRAME OPERATOR documented as of this encounter Care Teams Payroll Accountant Relationship Specialty Start Date End Date Lorie Vanessa NP [address] [place] [address] PCP - General Family Practice 05/29/22 No, Physician 06/08/21 documented as of this encounter
--- OUTSIDE RECORDS SUMMARY | 2024-06-06 00:27 | XMS_ITS | Encounter Summary ---
Author Organization [facility] Healthcare Address [address] [place] [address] Care Team Providers Care Inhalation Therapist Name Role Phone No, Physician Unavailable Lorie Vanessa NP Primary Care Provider [phone] Reason for Visit * Reason Comments PT Initial Eval * Consultation (Routine) - Authorized Specialty Diagnoses / Procedures Referred By Cyn burnett Referred To Contact Physical Therapy Diagnoses Low back pain, unspecified back pain laterality, unspecified chronicity, unspecified whether [place] [address] [facility] [address] [address] Phone: tel: fax: [address] [address] Referral ID Status Reason Start Date Expiration Date Visits Requested Visits Authorized [id number] Authorized Evaluate and Treat 07/01/2023 07/30/2024 9 9 Encounter Details Date Type Department Care Team (Late st Contact Info) Description 07/16/2023 3:00 PM SALES REPRESENTATIVE PRINTING Therapy [facility] [address] [place] [phone] Jodi Gan PT Low back pain, [...] on file Legal Sex Female 6:55 PM SALES REPRESENTATIVE PRINTING Gender Identity Female 06/06/2022 7:40 AM SALES REPRESENTATIVE PRINTING Sexual Orientation Not on file documented as of this encounter Progress Notes * Jodi Gan, PT - 07/16/2023 3:00 PM CST Images from the original note were not included. Physical Therapy Evaluation / Plan of Care 07/16/2023 Emily Guerrier 1995 27 [place] [address] [place] [address] ICD-9-CM ICD-10-CM 1. Low back pain, unspecified back pain laterality, unspecified chronicity, unspecified whether sciatica present 724.2 M54.50 Past Medical History: Diagnosis Date Anxiety 2018 Depression 2018 Dysmenorrhea 2016 GERD (gastroesophageal reflux disease) Infection Constantly sick Irritable bowel syndrome Menstrual problem 2014 Migraines Motion sickness Nausea Polycystic ovary syndrome Postural orthostatic tachycardia syndrome (POTS) Seizures (HCC) History of febrile seizures as an /toddler Past Surgical History: Procedure Laterality Date BAND HEMORRHOIDECTOMY COLONOSCOPY ENDOMETRIAL BIOPSY ESOPHAGOGASTRODUODENOSCOPY Number of PT Visits: 1 Reporting Period: N/A to 07/16/2023 Start Time: 1502 End Time: 1555 Subjective: History of Present Condition Date of onset: 01/20/2023 Description of Onset: Emily Guerrier states that on 01/20/2023 she was pulling up a 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 Patient states that she went to occupational health following and then participated in physical therapy. She states that she discontinued physical therapy in March 2023 after completing her prescribed visits. Patient states that she was not able to complete two follow up visits with her physician after completing physical therapy and was not able to follow up with her physician until 06/17/23 or 06/24/2023, but she is unable to remember specifically what date. Patient states that she was instructed to continue physi maxim therapy at that follow up visit. Patient states that she was scheduled to see her physician yesterday but her visit was moved due to patient not being able to begin physical therapy last week dueto having Covid. Patient states that she currently notices discomfort in her back but states it's getting better. I have been doing some of my therapy stuff at home and doing some low back strengthening at the gym. 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 She states I think I am feeling a little bit better to where I could do more. Patient states that she fractured her R fifth metatarsal on 01/26/2023 while walking and twisting her ankle crossing the street. She was placed in a cast and then transitioned to a boot. Patient states that she is now cleared tobear full weight on her R LE but that the fracture still remains present. Diagnostic Tests Lumbar MRI 03/04/2023: IMPRESSION: Mild degenerative disc disease at L1-L2 without high-grade spinal canal or foraminal stenoses. No visualized ligamentous injury. Previous Treatment: Previous participation in physical therapy for same injury. Concurrent Treatment: None identified Pain Current pain ratin/10 At best pain ratin/10 At worst pain ratin/10. Location: Midline low back Description: Achy Exacerbating Factors: Repeated lifting, long distance walking Relieving Factors: Resting, heat application Other Symptoms: Patient denies other symptoms Special Questions: Pt denies bowel and bladder changes,saddle paresthesia, pain provocation with cough/sneeze/Valsalva, unexplained weight loss >= 10 lbs, night pain Function Current Functional Deficits: Currently on light duty. 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 Required to lift up/pull 170-200pounds frequently and occasionally up to 300 pounds. Patient Goal: To return to full duty. Continue strengthening in my core area. Abuse and Neglect: No concerns noted by patient or therapist. Objective: Outcome Measure: Revised Oswestry: 32% Observation: Body type: endomorphic Posture: Hinge L4/5 with skin crease, slight right trunk lean, no appreciable trunk shift. Increased anterior pelvic tilt/lumbar lordosis. Increased thoracic kyphosis/cervical lordosis. Depressed anddownwardly slopping bilateral shoulders. Gait: Reduced hip extension on left during terminal stance with increased left pelvic rotation, increased base of support with ambulation. AROM: Lumbar AROM (% of Full) Flexion 100% Extension 25%* Right Lateral Flexion 100% Left Lateral Flexion 100% Right Rotation 75% Left Rotation 75*% Movement Analysis: Pain at end range with lumbar left rotation ROM Neurological Tests: Babinski (-), Clonus NT Dermatomes (light touch): NT Reflexes: 2+ ANA patellar and Achilles tendon reflexes Myotomes Right Left Iliopsoas (L1/2) 5/5 5/5 Quadriceps (L3) 5/5 5/5 Anterior Tibialis (L4) 4/5* 4+/5 Extensor Hallicus. Longus (L5) 5/5 5/5 Gluteus Medius (L5) 4-/5 4/5 Peroneals (L5/S1) 5/5 5/5 Hamstrings (L5-S2) 5/5 5/5 Gastrocnemius (S1/2) NT/5 5/5 Strength: Gastrocnemius strength assessment held on R LE due to foot pain Special Tests: Festus Signs (-) Joint Mobility: NT = not tested Palpation: Increased muscle tone demonstrated with palpation to lumbar paraspinals (L > R). Other: NT = not tested, * denotes pain Treatment Provided: Discussed evaluation findings and treatment plan with patient. Initiated home exercise program of posterior pelvic tilts, transverse abdominis isometrics, bent knee fall outs. Other treatment: soft tissue mobilization to lumbar paraspinals: x6 minutes Assessment: Therapy Impression: Emily Guerrier presents to physical therapy this date with signs & symptoms consistent with physician referring diagnosis of low back pain. Subjectively, she reports low back pain that has been present since injuring her back when assisting in a patient transfer in December2022. She reports symptom exacerbation with long distance walking and repeated lifting. Objectively, she demonstrates painful/limited lumbar active ROM, L4 myotomal weakness, gait abnormalities, and difficulty with functional mobility tasks & ADLs per outcome measure scoring. Patient was educated on an appropriate home exercise program to address her deficits. She demonstrates and verbalizes u nderstanding of home exercise program provided. Barriers to therapy: None identified Barriers to learning: None identified Prognosis/Rehab Potential: Good STG to be met by 08/06/2023 1) Patient will increase lumbar extension active ROM to > or equal to 75% for improved toleranceto lifting tasks. 2) Patient will report pain at worst as < or equal to 4/10 for reduced discomfort with functional mobility tasks & ADLs. 3) Patient will report ability to stand for > or equal to 30 minutes without back pain > 2/10for improved tolerance to prolonged positioning when performing work tasks. LTG to be met by discharge 1) Patient independent with home exercise program 2) Patient to improve function on Revised Oswestry to 19% or less 3) Patient will return to completing her occupational demands without limitation due to her currentsubjective complaints. Plan: Physical Therapy Interventions: Therapeutic Exercise, Therapeutic Activity, Neuromuscular Reeducation, Manual Therapy, and Hot/Cold Frequency/Duration 2-3 times per week for 3 weeks Next visit consider initiating Nustep, clamshells, low abdominal marching, bridging with band for hip abduction isometrics, pallof press, band walks Initial Certification Thank you for this referral. Jodi Gan PT Time Calculator Time-Based Code Calculator Minutes for Ther Ex/Ther Procedure (43152):: 8 minutes Minutes for Manual Therapy (62018):: 6 minutes Timed Code Treatment Minutes:: 14 minutes Total Treatment Time: 53 S REPRESENTATIVE PRINTING S REPRESENTATIVE PRINTING documented in this encounter Plan of Treatment Not on file documented as of this encounter Visit Diagnoses Diagnosis Low back pain, unspecified back pain laterality, unspecified chronicity, unspecified whether sciatica present- Primary documented in this encounter Care Teams Inhalation Therapist Relationship Specialty Start Date End Date Lorie Vanessa NP [address] [place] [id number] PCP - General Family Practice 05/29/22 No, Physician 06/08/21 documented as of this encounter
--- OUTSIDE RECORDS SUMMARY | 2024-06-06 00:27 | XMS_ITS | Encounter Summary ---
Author Organization [facility] Healthcare Address [address] [place] [address] Care Team Providers Care Geographic Information Systems Analyst Name Role Phone No, Physician Unavailable Lorie Vanessa NP Primary Care Provider [phone] Encounter Details Date Type Department Care Team (Latest Contact Info) Description 06/03/2023 10:57 AM RN HEDIS - 06/03/2023 11:59 PM [facility] Hospital Encounter [address] [phone] Closed displaced fracture of fifth metatarsal bone of right foot, initial encounter Discharge Disposition: Discharge to home or self [...] on file Legal Sex Female 6:55 PM RN HEDIS Gender Identity Female 06/06/2022 7:40 AM RN HEDIS Sexual Orientation Not on file documented as [...] BY MOUTH DAILY 90 tablet 1 01/22/2023 04/09/202 4 medroxyPROGESTERon e (PROVERA) 10 mg tablet [...] Priority Date/Time Associated Diagnosis Comments XR FOOT RIGHT 3 OR MORE VIEWS Schedule Routine, Read Routine (OP Routine) 06/03/2023 11:05 AM RN HEDIS Closed displaced fracture of fifth metatarsal bone of right foot, initial encounter documented in this encounter Results * XR Foot Right 3 or More Views (06/03/2023 11:05 AM RN HEDIS) Anatomical Region Laterality Modality Lower Extremities, Foot Right Digital Radiography 06/03/2023 1:46 PM RN HEDIS Impressions 06/03/2023 1:46 PM RN HEDIS Mild hallux valgus. ??Again noted is a base of the 5th metatarsal fracture which remains ununited to the rest of the 5th metatarsal. ??There is ??some evidence of healing. ??Alignment is unchanged and near-anatomic. ??No periosteal reaction. ??Continue follow-up. Electronically signed by: Thais Ortiz M.D. Narrative 06/03/2023 1:46 PM RN HEDIS EXAMINATION: 1. ??3 VIEWS OF THE RIGHT FOOT DATE: 06/03/2023 11:00 AM COMPARISON: 04/26/2023 HISTORY: right foot pain - WB right foot pain - WB Procedure Note Thais Ortiz MD - 06/03/2023 EXAMINATION: 1. 3 VIEWS OF THE RIGHT FOOT DATE: 06/03/2023 11:00 AM COMPARISON: 04/26/2023 HISTORY: right foot pain - WB right foot pain - WB IMPRESSION: Mild hallux valgus. Again noted is a base of the 5th metatarsal fracture which remains ununited to the rest of the 5th metatarsal. There is some evidence of healing. Alignment is unchanged and near-anatomic. No periosteal reaction. Continue follow-up. Electronically signed by: Thais Ortiz M.D. Marco Antonio Reynoso NP IMG XR PROCEDURES Final Re sult documented in this encounter Visit Diagnoses Diagnosis Closed displaced fracture of fifth metatarsal bone of right foot, initial encounter documented in this encounter Care Teams Geographic Information Systems Analyst Relationship Specialty Start Date End Date Lorie Vanessa NP [address] [place] [id number] PCP - General Family Practice 05/29/22 No, Physician 06/08/21 documented as of this encounter
--- OUTSIDE RECORDS SUMMARY | 2024-06-06 00:27 | XMS_ITS | Encounter Summary ---
Author Organization [facility] Address [address] [place] [address] Phone Care Team Providers Care Building Energy Consultant Name Role Phone No, Physician Unavailable Lorie Vanessa NP Primary Care Provider [phone] Reason for Visit * Reason Comments Follow-up Encounter Details Date Type Department Care Team (Late st Contact Info) Description 06/03/2023 10:45 AM MANAGER PROGRAM Office Visit [facility] [address] [place] [address] Medical Office Building [address] [place] [phone] [place] [address] [place] [address] Closed displaced fracture of fifth metatarsal bone [...] file Legal Sex Female 6:55 PM MANAGER PROGRAM Gender Identity Female 06/06/2022 7:40 AM MANAGER PROGRAM Sexual Orientation Not on file documented as of this encounter Progress Notes * Marco Antonio Reynoso, INSPECTOR POISING - 06/03/2023 10:45 AM CST RETURN PATIENT VISIT INTERIM HISTORY The patient is here for follow-up of her right foot. She has a fifth metatarsal base fracture. She had an injury January 26. She is out of the boot. She has been out of the boot for the last 1-2 weeks and doing better. PHYSICAL EXAMINATION On physical exam she is alert and oriented x3. Skin exam reveals no rashes, lesions or ulcers. Sensation is intact to light touch. She has intact dorsiflexion, plantar flexion, inversion and eversion. She has minimal tenderness at the fifth metatarsal base. No swelling. No redness or bruising. No tenderness on the plantar aspect of the foot. REVIEW OF X-RAYS/STUDIES I have ordered right foot x-ray and personally reviewed the images. My independent interpretation is healing mildly displaced intra-articular right fifth metatarsal base fracture. IMPRESSION/DIAGNOSIS Healing right fifth metatarsal base fracture TREATMENT/PLAN We discussed treatment options in the office today. Clinically she is doing better. She will stay out of the boot. She can slowly advance activity. She should let pain be her guide. If her pain returns she will call otherwise I will check her back in 4-6 weeks. She is agreeable with the plan. All questions were answered today. FOLLOW UP 4-6 weeks with new weight-bearing films of the right foot I was in collaboration with Dr. Walter today. Marco Antonio Reynoos, RN,BSN, MSN, YARD GOODS SALESPERSON, CERTIFIED HEARING INSTRUMENT DISPENSER-C, in collaborative practice with Dr. George Elizondo and Dr. Dionisio Walter Nurse Practitioner, Foot and Ankle Service [facility]. This is TONY Thomas dictating using [employer] Direct Software Program. Planning Assistant variances may occur. GER PROGRAM documented in this encounter Plan of Treatment Not on file documented as of this encounter Results * XR Foot Right 3 or More Views (06/03/2023 11:05 AM MANAGER PROGRAM) Anatomical Region Laterality Modality Lower Extremities, Foot Right Digital Radiography 06/03/2023 1:46 PM MANAGER PROGRAM Impressions 06/03/2023 1:46 PM MANAGER PROGRAM Mild hallux valgus. ??Again noted is a base of the 5th metatarsal fracture which remains ununited to the rest of the 5th metatarsal. ??There is ??some evidence of healing. ??Alignment is unchanged and near-anatomic. ??No periosteal reaction. ??Continue follow-up. Electronically signed by: Thais Ortiz M.D. Narrative 06/03/2023 1:46 PM MANAGER PROGRAM EXAMINATION: 1. ??3 VIEWS OF THE RIGHT [...] by: Thais Ortiz M.D. Marco Antonio Reynoso INSPECTOR POISING IMG XR PROCEDURES Final Re sult documented in this encounter Visit Diagnoses Diagnosis Closed displaced fracture of fifth metatarsal bone of right foot, initial encounter- Primary Closed displaced fracture of fifth metatarsal bone of right foot, initial encounter documented in this encounter Care Teams Building Energy Consultant Relationship Specialty Start Date End Date Lorie Vanessa NP [address] [place] [id number] PCP - General Family Practice 05/29/22 No, Physician 06/08/21 documented as of this encounter
--- OUTSIDE RECORDS SUMMARY | 2024-06-06 00:28 | XMS_ITS | Encounter Summary ---
Author Organization [facility] Healthcare Address [address] [place] [address] Care Team Providers Care Game Advisor Name Role Phone No, Physician Unavailable Lorie Vanessa NP Primary Care Provider [phone] Encounter Details Date Type Department Care Team (Late st Contact Info) Description 04/15/2023 Orders Only [facility] Medical Group Gastroenterology at [address] [place] [address] Cj Thomas MD [address] [place] [address] [address] [place] [address] Nausea (Primary Dx) Social History Tobacco Use Types Packs/Day Years Used Date Smoking Tobacco: Passive Smo ke Exposure - Never Smoker Cigarettes Smokeless Tobacco: Never Comments:Grew up with smoker [...] on file Legal Sex Female 6:55 PM FLOAT REMOVER Gender Identity Female 06/06/2022 7:40 AM FLOAT REMOVER Sexual Orientation Not on file documented as of this encounter Ordered Prescriptions Prescription Sig Dispense Quantity Refills Last Filled Start Date End Date ondansetron (ZOFRAN) 8 mg tabletIndications: Nausea Take 1 tablet (8 mg total) by mouth every 6 (six) hours as needed for nausea or vomiting 30 tablet 04/15/2023 documented in this encounter Plan of Treatment Not on file documented as of this encounter Visit Diagnoses Diagnosis Nausea- Primary Nausea alone documented in this encounter Discontinued Medications Medication Sig Discontinue Reason Start Date End Da te ondansetron ODT (ZOFRAN-ODT) 8 mg disintegrating tabletIndications:Nausea DISSOLVE 1 TABLET(8 MG) ON THE TONGUE EVERY 8 HOURS NEEDED FOR NAUSEA OR VOMITING 03/28/2023 04/15/2023 ondansetron ODT (ZOFRAN-ODT) 4 mg disintegrating tabletIndications:Nausea Take 2 tablets (8 mg total) by mouth every 6 (six) hours as needed for nausea or vomiting 04/15/2023 04/15/2023 documented as of this encounter Care Teams Game Advisor Relationship Specialty Start Date End Date Lorie Vanessa NP [address] [place] [phone] PCP - General Family Practice 05/29/22 No, Physician 06/08/21 documented as of this encounter
--- OUTSIDE RECORDS SUMMARY | 2024-06-06 00:28 | XMS_ITS | Encounter Summary ---
Author Organization [facility] Healthcare Address [address] [place] [address] Care Team Providers Care Creative Art Director Name Role Phone No, Physician Unavailable Lorie Vanessa NP Primary Care Provider [phone] Reason for Visit * Reason Comments New Patient WWE Encounter Details Date Type Department Care Team (Late st Contact Info) Description 05/17/2023 10:30 AM STAFFING RECRUITER Office Visit [facility] Obstetrical Gynecology [address] [place] [phone] Sita Lin MD [address] [place] [phone] Well woman exam (Primary Dx); PCOS (polycystic ovarian syndrome); Encounter for preconception consultation; Morbid obesity with BMI of 50.0-59.9, adult [...] on file Legal Sex Female 6:55 PM STAFFING RECRUITER Gender Identity Female 06/06/2022 7:40 AM STAFFING RECRUITER Sexual Orientation Not on file documented as of this encounter Last Filed Vital Signs Vital Sign Reading Time Taken Comments Blood Pressure 126/76 05/17/2023 10:25 AM STAFFING RECRUITER Pulse - - Temperature - - Respiratory Rate - - Oxygen Saturation - - Inhaled Oxygen Concentration - - Weight 151 kg (333 lb) 05/17/2023 10:25 AM STAFFING RECRUITER Height 162.6 cm (5' 4.02 ) 05/17/2023 10:[address] Body Mass Index 57.13 05/17/2023 10:25 AM STAFFING RECRUITER documented in this encounter Ordered Prescriptions Prescription Sig Dispense Quantity Refills Last Filled Start Date End Date medroxyPROGESTERon e (PROVERA) 10 mg tablet Take 1 tablet (10 mg total) by mouth daily Take 10 day course every 4-6 weeks 10 tablet 3 05/21/2023 02/25/2024 medroxyPROGESTERon e (PROVERA) 10 mg tablet Take 1 tablet (10 mg total) by mouth daily Take once every 4-6 weeks 10 tablet 3 05/17/2023 05/21/2023 documented in this encounter Progress Notes * Sita Lin MD - 05/17/2023 10:30 AM CST Annual Gynecologic Exam Chief Complaint Patient presents with New Patient WWE Subjective: Teresa Cervantes is a 27 y.o. who presents for annual exam. Past medical history is notable for BMI 57, PCOS, GERD, HLD, POTS, anxiety, depression. Doesn't have periods regularly. Is . Is on norethindrone, has had nexplanon in the past and did not like it. No periods on current pill Has had occasional spotting. Has tried metformin and phentermine with no weight loss. Wants to try to get soon. Has never tried before. 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 Maternal aunt - breast cancer in her 30s OB History 0 Para 0 Term 0 0 AB 0 Living 0 SAB 0 IAB 0 Ectopic 0 Multiple 0 Live Births 0 Past Surgical History: Procedure Laterality Date BAND [...] Neg Hx Colon cancer Neg Hx Current Outpatient Medications Medication Sig Dispense Refill cetirizine (ZyrTEC) 10 mg chewable tablet Take 4 tablets (40 mg total) by mouth daily Up to 40 daily PRN cholecalciferol 25 mcg (1,000 unit) tablet Take 1 tablet (1,000 Units total) by mouth daily clonazePAM (KlonoPIN) 0.5 mg tablet Take 1 tablet (0.5 mg total) by mouth daily as needed cromolyn (GASTROCROM) 100 mg/5 mL solution Take 10 mL (200 mg total) by mouth 4 (four) times a day before meals and nightly 1200 mL 11 dicyclomine (BENTYL) 20 mg tablet TAKE 1 TABLET BY MOUTH FOUR TIMES DAILY NEEDED FOR ABDOMINAL DISCOMFORT famotidine (PEPCID) 40 mg tablet TAKE 1 TABLET(40 MG) BY MOUTH EVERY NIGHT NEEDED FOR HEARTBURN 30 tablet 3 lamoTRIgine (LaMICtal) 100 mg tablet Take 1.5 tablets (150 mg total) by mouth daily 1/2 in AM and 1in PM magnesium oxide (MAG-OX) 400 mg (241.3 mg elemental magnesium) tablet TAKE 1 TABLET(400 MG) BY MOUTH DAILY 90 tablet 1 norethindrone (MICRONOR) 0.35 mg tablet Take 1 tablet (0.35 mg total) by mouth daily 28 tablet 1 ondansetron (ZOFRAN) 8 mg tablet Take 1 tablet (8 mg total) by mouth every 6 (six) hours as needed for nausea or vomiting [address] (PROTONIX) 40 mg EC tablet Take 1 tablet (40 mg total) by mouth 2 (two) times a [id number] tablet 1 propranolol LA (INDERAL LA) 60 mg 24 hr capsule Take 1 capsule (60 mg total) by mouth daily 30 capsule 11 sertraline (ZOLOFT) 100 mg tablet Take 2 tablets (200 mg total) by mouth nightly sucralfate (CARAFATE) 1 gram tablet Take 1 tablet (1 g total) by mouth 4 (four) times a day Take 1 hour before meals and at bedtime 120 tablet 3 triamcinolone (NASACORT) 55 mcg nasal inhaler Administer 2 sprays into each nostril daily Can increase to twice daily if symptoms persist 16.9 mL 11 No current facility-administered medications for this visit. Objective: PHYSICAL EXAM: Vitals: 05/17/23 1025 BP: 126/76 Weight: (!) 333 lb (151 kg) Height: 162.6 cm (5' 4.02 ) Physical Exam Vitals reviewed. Constitutional: Appearance: Normal appearance. She is obese. HENT: Head: Normocephalic. Eyes: Extraocular Movements: Extraocular movements intact. Cardiovascular: Rate and Rhythm: Normal rate. Pulmonary: Effort: Pulmonary effort is normal. Chest: Breasts: Right: Normal. Left: Normal. Genitourinary: Vagina normal. Right labia: normal. Left Labia: normal. Cervix: Normal exam. Musculoskeletal: Cervical back: Normal range of motion. Lymphadenopathy: Upper Body: Right upper body: No axillary adenopathy. Left upper body: No axillary adenopathy. Skin: General: Skin is warm and dry. Neurological: Mental Status: She is alert and oriented to person, place, and time. Assessment/Plan: WWE Pap: collected today STI screening: declines Gardasil: completed Breast Cancer Screening: Age 42 Colon Cancer Screening: Age 47 Contraception: micronor PCOS Diagnosed several years ago with prior provider Currently managed with micronor Desires , see below Reviewed importance of having a cycle at least every three months - provera prescribed Strongly encourage weight loss Morbid Obesity, BMI 57 We discussed that a BMI >30 has been associated with an increased time to spontaneous conceptionand decreased conception rate. We discussed that obesity has been linked to a number of complications, including gestational diabetes and development of gestational hypertension or pre-eclampsia. Obesity may cause complications in management of labor and delivery with increased maternal morbidity. Prolonged labor and increased risk of section are seen, in addition to higher rates of hemorrhage and infection. We discussed that even modest weight loss can improve outcome and decrease morbidity. Reviewed that I would not offer ovulation induction until her BMI is < 50. Patient plans to f/u with her PCP, has failed metformin and phentermine Desires Reviewed risks as detailed above, would recommend weight loss before attempting Needs to start vitamin Offered carrier screening, patient will consider Recommend rubella and varicella IgG, patient will also consider Asked her to discuss alternatives to propanolol (currently prescribed for POTS) with her physician as that would not be recommended in RTC in 6 months to further discuss fertility. Sita Lin MD FING RECRUITER documented in this encounter Miscellaneous Notes * Addendum Note - Erika Abad LPN - 05/17/2023 10:30 AM STAFFING RECRUITER Addended by: ERIKA ABAD on: 05/21/2023 10:42 AM Modules accepted: Orders FING RECRUITER documented in this encounter Plan of Treatment Not on file documented as of this encounter Results * ThinPrep processing (Molecular component) (05/17/2023 11:10 AM STAFFING RECRUITER) ThinPrep processing (Molecular component) Specimen received for processing. [facility] Comment:Testing performed by : [facility], [address] [place]., [address] Endocervical 05/17/2023 11:1 0 AM STAFFING RECRUITER 05/21/2023 8:31 AM STAFFING RECRUITER us Sita Lin MD LAB BODY FLUIDS AND STOOLS O RDERABLES Final Result [facility] [address] [facility] Department [place] [address] * Pap with reflex to High Risk HPV and Genotyping (Cytology Component) (05/17/2023 11:10 AM STAFFING RECRUITER) Endocervical (Pap test) 05/17/2023 11:10 AM STAFFING RECRUITER 05/19/2023 11:35 PM STAFFING RECRUITER Narrative [facility] - 05/23/2023 5:10 PM STAFFING RECRUITER EPIC results best viewed via link to PDF [facility] Erika [facility] [place] [address] Note to Patients: This report [...] Gender: ??F : ??1995 (Age: 27) Address: ??[address] [place] [id number] Hospital #: ??[id number] Service: ??DEFAULT Location: ?? Patient Type: ??[facility] SPECIMEN Taken: ??05/17/2023 Received: ??05/19/2023 Accessioned: [...] clinical information and biopsy results as indicated. [facility] Clinical Laboratory Improvement Amendments (CLIA) mandate that cytologic and histologic results be correlated for laboratory water quality control engineer & improvement standards. ??FOR ALL HIGH-GRADE CASES [...] determined by the Surgical Pathology Department at [facility] as part of an ongoing quality assurance consultant program and in compliance with federally mandated [...] Health and Human Services as a [facility] under CLIA '88. ??The FDA has [...] determined by the Surgical Pathology Department of [facility]. ??It has not been cleared or approved by the U. S. Food and Drug Administration. Sita Lin MD LAB CYTOLOGY ORDERABLES Magda l Result [facility]OLOG[facility] documented in this encounter Visit Diagnoses Diagnosis Well woman exam- Primary Routine general medical examination at a health care facility PCOS (polycystic ovarian syndrome) Polycystic ovaries Encounter for preconception consultation Morbid obesity with BMI of 50.0-59.9, adult (HCC) Well woman exam Routine general medical examination at a health care facility documented in this encounter Discontinued Medications Medication Sig Discontinue Reason Start Date End Da te fluconazole (DIFLUCAN) 150 mg tabletIndications:Chroni c Suppression,Urinary Tract/Genitourinary Infection Take 1 tab every other day for 3 doses if yeast infection starts, then weekly after to prevent recurrence Therapy completed 12/03/2022 05/17/2023 metoclopramide (REGLAN) 10 mg tablet Take 1 tablet (10 mg total) by mouth every 12 (twelve) hours for 7 days Therapy completed 04/17/2023 05/17/2023 ondansetron ODT (ZOFRAN-ODT) 4 mg disintegrating tablet Therapy completed 05/09/2023 05/17/20 traMADoL (ULTRAM) 50 mg tablet Take 1 tablet (50 mg total) by mouth every 12 (twelve) hours as needed for pain for up to 7 days Therapy completed 03/12/2023 05/17/2023 norethindrone (MICRONOR) 0.35 mg tablet Take 1 tablet (0.35 mg total) by mouth daily Alternate therapy 02/18/2023 05/17/2023 medroxyPROGESTERone (PROVERA) 10 mg tablet Take 1 tablet (10 mg total) by mouth daily Take once every 4-6 weeks 05/17/2023 05/21/2023 documented as of this encounter Historical Medications * This list may reflect changes made after this encounter. ondansetron ODT (ZOFRAN-ODT) 4 mg disintegrating tablet 05/09/2023 added in this encounter Care Teams Creative Art Director Relationship Specialty Start Date End Date Lorie Vanessa NP [address] [place] [phone] PCP - General Family Practice 05/29/22 No, Physician 06/08/21 documented as of this encounter
--- OUTSIDE RECORDS SUMMARY | 2024-06-06 00:28 | XMS_ITS | Encounter Summary ---
Author Organization [facility] Healthcare Address [address] [place] [address] Care Team Providers Care Imcu Specialist Name Role Phone No, Physician Unavailable Lorie Vanessa NP Primary Care Provider [phone] Encounter Details Date Type Department Care Team (Latest Contact Info) Description 04/26/2023 10:29 AM PARTS DESIGNER - 04/26/2023 11:59 PM [facility] Hospital Encounter [facility] [address] [place] [phone] Closed displaced fracture of fifth metatarsal bone [...] on file Legal Sex Female 6:55 PM PARTS DESIGNER Gender Identity Female 06/06/2022 7:40 AM PARTS DESIGNER Sexual Orientation Not on file documented as [...] FOR HEARTBURN 30 tablet 3 01/08/2023 3 fluconazole (DIFLUCAN) 150 mg tabletIndications: Chronic Suppression,Urinar y Tract/Genitourinar y Infection Take 1 tab every other day for 3 doses if yeast infection starts, then weekly after to prevent recurrence 15 tablet 12/03/2022 3 magnesium oxide (MAG-OX) 400 mg (241.3 mg elemental magnesium) tablet TAKE 1 TABLET(400 MG) BY MOUTH DAILY 90 tablet 1 01/22/2023 4 metoclopramide (REGLAN) 10 mg tablet Take 1 tablet (10 mg total) by mouth every 12 (twelve) hours for 7 days 14 tablet 04/17/2023 3 norethindrone (MICRONOR) 0.35 mg tablet Take 1 tablet (0.35 mg total) by mouth daily 28 tablet 1 02/18/2023 3 ondansetron (ZOFRAN) 8 mg tabletIndications: Nausea Take [...] at bedtime 120 tablet 3 01/03/2023 4 traMADoL (ULTRAM) 50 mg tablet Take 1 tablet (50 mg total) by mouth every 12 (twelve) hours as needed for pain for up to 7 days 14 tablet 03/12/2023 3 documented as of this encounter Discharge Disposition Disposition Code Departure Means Destination Discharge to home or self care documented in this encounter Plan of Treatment Not on file documented as of this encounter Procedures Procedure Name Priority Date/Time Associated Diagnosis Comments XR FOOT RIGHT 3 OR MORE VIEWS Schedule Routine, Read Routine (OP Routine) 04/26/2023 10:37 AM PARTS DESIGNER Closed displaced fracture of fifth metatarsal bone of right foot, initial encounter documented in this encounter Results * XR Foot Right 3 or More Views (04/26/2023 10:37 AM PARTS DESIGNER) Anatomical Region Laterality Modality Lower Extremities, Foot Right Computed Radiography 04/26/2023 11:3 0 AM PARTS DESIGNER Impressions 04/26/2023 11:30 AM PARTS DESIGNER 1. ??Unchanged mildly displaced, intra-articular fracture of the right 5th metatarsal base. Electronically signed by: Ray Cruz M.D. Narrative 04/26/2023 11:30 AM PARTS DESIGNER EXAMINATION: XR FOOT RIGHT 3 OR MORE VIEWS HISTORY: Right 5th metatarsal fracture FINDINGS: 3 view weightbearing examination the right foot is compared with a study from 03/27/2023. ??There is no change in a mildly displaced, intra-articular fracture of the 5th metatarsal base, with no new discrete callus formation at this time. ??There is mild pes planovalgus and hallux valgus. ??Joint spaces are normal. Procedure Note Ray Cruz MD - 04/26/2023 EXAMINATION: XR FOOT RIGHT 3 OR MORE VIEWS HISTORY: Right 5th metatarsal fracture FINDINGS: 3 view weightbearing examination the right foot is compared with a study from 03/27/2023. There is no change in a mildly displaced, intra-articular fracture of the 5th metatarsal base, with no new discrete callus formation at this time. There is mild pes planovalgus and hallux valgus. Joint spaces are normal. IMPRESSION: 1. Unchanged mildly displaced, intra-articular fracture of the right 5th metatarsal base. Electronically signed by: Ray Cruz M.D. Marco Antonio Reynoso WIRE REPAIRER IMG XR PROCEDURES Final Re sult documented in this encounter Visit Diagnoses Diagnosis Closed displaced fracture of fifth metatarsal bone of right foot, initial encounter documented in this encounter Care Teams Imcu Specialist Relationship Specialty Start Date End Date Lorie Vanessa NP [address] [place] [id number] PCP - General Family Practice 05/29/22 No, Physician 06/08/21 documented as of this encounter
--- OUTSIDE RECORDS SUMMARY | 2024-06-06 00:28 | XMS_ITS | Encounter Summary ---
Author Organization [facility] Healthcare Address [address] [place] [address] Care Team Providers Care General Handling Supervisor Name Role Phone No, Physician Unavailable Lorie Vanessa NP Primary Care Provider [phone] Encounter Details Date Type Department Care Team (Late st Contact Info) Description 04/11/2023 Orders Only [facility] Gastroenterology at [address] [place] [address] Cj Thomas MD [address] [place] [address] [address] [place] [address] Nausea (Primary Dx) Social History [...] on file Legal Sex Female 6:55 PM SMOKE CONTROL SUPERVISOR Gender Identity Female 06/06/2022 7:40 AM SMOKE CONTROL SUPERVISOR Sexual Orientation Not on file documented as of this encounter Plan of Treatment Not on file documented as of this encounter Visit Diagnoses Diagnosis Nausea- Primary Nausea alone documented in this encounter Care Teams General Handling Supervisor Relationship Specialty Start Date End Date Lroie Vanessa NP [address] [place] [phone] PCP - General Family Practice 05/29/22 No, Physician 06/08/21 documented as of this encounter
--- OUTSIDE RECORDS SUMMARY | 2024-06-06 00:28 | XMS_ITS | Encounter Summary ---
Author Organization [facility] Healthcare Address [address] [place] [address] Care Team Providers Care Loom Cleaner Name Role Phone No, Physician Unavailable Lorie Vanessa NP Primary Care Provider [phone] Reason for Visit * Reason Comments Abdominal Pain Encounter Details Date Type Department Care Team (Late st Contact Info) Description 04/17/2023 2:08 AM [facility] - 04/17/2023 4:38 AM [facility] Emergency [facility] Emergency Department [address] [place] [address] Zackery Lagos MD [address] [place] [id number] Abdominal pain (Primary Dx); Nausea and vomiting, unspecified vomiting type; Rectal bleeding Discharge Disposition: Discharge to home or self [...] on file Legal Sex Female 6:55 PM MOP MACHINE OPERATOR Gender Identity Female 06/06/2022 7:40 AM MOP MACHINE OPERATOR Sexual Orientation Not on file documented as of this encounter Last Filed Vital Signs Vital Sign Reading Time Taken Comments Blood Pressure 129/78 04/17/2023 3:00 AM MOP MACHINE OPERATOR Pulse 80 04/17/2023 4:15 AM MOP MACHINE OPERATOR Temperature 36.9 ??C (98.4 ??F) 04/17/2023 1:43 AM CS T Respiratory Rate 19 04/17/2023 4:15 AM MOP MACHINE OPERATOR Oxygen Saturation 97% 04/17/2023 4:15 AM MOP MACHINE OPERATOR Inhaled Oxygen Concentration - - Weight 151.8 kg (334 lb 10.5 oz) 04/16/2023 7:53 PM MOP MACHINE OPERATOR Height - - Body Mass Index 57.42 01/30/2023 9:54 AM CDT documented in this encounter Discharge Instructions * Discharge Instructions* Zackery Lagos MD - 04/17/2023 4:27 AM MOP MACHINE OPERATOR Today you were seen and evaluated for abdominal pain. Your labs and imaging were reassuring. Pleasefollow-up with your doctor as below and follow the instructions provided. Take the Percocet you were ordered for any breakthrough abdominal pain as your condition epiploic appendagitis will take up to 2 weeks to resolve. You have any worsening abdominal pain, nausea, vomiting, any trouble eating ordrinking, worsening blood or blood clots in her stool or any other worsening or concerning symptomsplease return to the emergency room. MACHINE OPERATOR MACHINE OPERATOR * Attachments The following attachments cannot be sent through Care Everywhere. * Abdominal Pain (AfterCare(R) Instructions(ER/ED)) (Bangladeshi) * Rectal Bleeding (AfterCare(R) Instructions(ER/ED)) (Bangladeshi) documented in this encounter Medications at Time [...] 03/12/2023 3 documented as of this encounter Ordered Prescriptions Prescription Sig Dispense Quantity Refills Last Filled Start Date End Date metoclopramide (REGLAN) 10 mg tablet Take 1 tablet (10 mg total) by mouth every 12 (twelve) hours for 7 days 14 tablet 04/17/2023 05/17/2023 documented in this encounter Discharge Disposition Disposition Code Departure Means Destination Comment s Discharge to home or self care documented in this encounter ED Notes * Zackery Lagos MD - 04/17/2023 2:11 AM CST HPI Chief Complaint Patient presents with Abdominal Pain HPI 4:55 AM Emily Guerrier is a 27 y.o. female presenting to the ED c/o abdominal pain. Patient's past medical history as below. Patient notes that she was diagnosed with epiploic appendagitis a week ago at an outside hospital and states he has been having abdominal pain since her discharge. Patientnotes that her abdominal pain feels similar to her previous abdominal pain with her diagnosis. Patient describes an aching pain across her abdomen worse in her left lower quadrant. Patient notes the pain is intermittent and worse with movement. Patient notes associated nausea and vomiting. Patient notes she is noticed streaks of blood in her vomit and states that she is also had streaks of bright red blood in her stool. Patient states she is had decreased p.o. intake. Patient denies any fevers or chills. Patient notes shortness of breath related to the pain. Patient denies any chest pain. Patient denies any dysuria, hematuria, blood in her stool. Patient denies smoke cigarettes, alcohol use, other drug use. Patient notes she is been taking Percocet at home for the pain with some relief. Patient History: Past Medical History: Diagnosis Date Anxiety 2018 Asthma 2019 Depression 2018 Dysmenorrhea 2016 GERD (gastroesophageal reflux disease) Infection Constantly sick Irritable bowel syndrome Menstrual problem 2014 Migraines Motion sickness Nausea Polycystic ovary syndrome Postural orthostatic tachycardia syndrome (POTS) Seizures (HCC) History of febrile seizures as an /toddler Past Surgical History: Procedure Laterality Date BAND HEMORRHOIDECTOMY COLONOSCOPY ESOPHAGOGASTRODUODENOSCOPY Family History Problem Relation Age of Onset Hypertension Mother COPD Mother Anemia Mother Depression Mother Squamous cell carcinoma Father Cancer Father Depression Father Obesity Father Heart failure Brother Diabetes Maternal Grandmother Family history of diabetes mellitus - (Added by TW Conv) Mental illness Maternal Grandmother Family history of mental disorder - (Added by TW Conv) Alzheimer's disease Maternal Grandmother Alcohol abuse Paternal Grandfather Heart disease Paternal Grandfather Heart disease Paternal Grandmother Alcohol abuse Brother Depression Brother Drug abuse Brother Early Brother Cancer Mother's Sister Depression Sister Drug abuse Sister Social History Tobacco Use Smoking status: Passive Smoke Exposure - Never Smoker Smokeless tobacco: Never Tobacco comments: Grew up with smokers - mom, sister, brother in law, brother, sister in law. Secondhand smoke Substance and Sexual Activity Drug use: Never Sexual activity: Yes Partners: Male control/protection: OCP Alcohol Use: Not At Risk (01/09/2023) AUDIT-C Frequency of Alcohol Consumption: Monthly or less Average Number of Drinks: 1 or 2 Frequency of Binge Drinking: Never These factors certainly contributing to social determinants of health No current facility-administered medications for this encounter. Current Outpatient Medications: cetirizine (ZyrTEC) 10 mg chewable tablet cholecalciferol 25 mcg (1,000 unit) tablet clonazePAM (KlonoPIN) 0.5 mg tablet cromolyn (GASTROCROM) 100 mg/5 mL solution dicyclomine (BENTYL) 20 mg tablet famotidine (PEPCID) 40 mg tablet fluconazole (DIFLUCAN) 150 mg tablet lamoTRIgine (LaMICtal) 100 mg tablet magnesium oxide (MAG-OX) 400 mg (241.3 mg elemental magnesium) tablet metoclopramide (REGLAN) 10 mg tablet norethindrone (MICRONOR) 0.35 mg tablet ondansetron (ZOFRAN) [address] (PROTONIX) 40 mg EC tablet propranolol LA (INDERAL LA) 60 mg 24 hr capsule sertraline (ZOLOFT) 100 mg tablet sucralfate (CARAFATE) 1 gram tablet traMADoL (ULTRAM) 50 mg tablet triamcinolone (NASACORT) 55 mcg nasal inhaler Review of Systems Review of Systems All systems reviewed and are neg or non contributory for this patients presentation today other than as stated in the HPI . Physical Exam ED Triage Vitals Temp Pulse Resp BP SpO2 04/16/23195204/16/23195204/16/23195204/16/23195204/16/231952 36.7 ??C (98.1 ??F) 86 24 129/70 97 % Temp src Heart Rate Source Patient Position BP Location FiO2 (%) 04/16/23195204/16/23212004/16/23212004/17/23 0238 -- Oral Pulse Oximetry Sitting Left arm Height Height Method Weight Weight Method -- -- 04/16/23195204/16/231952 (!) 151.8 kg (334 lb 10.5 oz) Standing scale Patient Vitals for the past 24 hrs: BP Temp Temp src Pulse Resp SpO2 Weight 04/17/23 0415 -- -- -- 80 19 97 % -- 04/17/23 0300 129/78 -- -- 86 16 100 % -- 04/17/23 0238 130/73 -- -- 88 16 99 % -- 04/17/23 0143 -- 36.9 ??C (98.4 ??F) Oral -- -- -- -- 04/16/23 2121 101/78 -- -- 84 16 100 % -- 04/16/23 1953 129/70 36.7 ??C (98.1 ??F) Oral 86 24 97 % (!) 151.8 kg (334 lb 10.5 oz) Physical Exam Vitals and nursing note reviewed. Constitutional: General: She is not in acute distress. Appearance: She is well-developed. Comments: Elevated BMI HENT: Head: Normocephalic and atraumatic. Mouth/Throat: Mouth: Mucous membranes are moist. Eyes: Extraocular Movements: Extraocular movements intact. Conjunctiva/sclera: Conjunctivae normal. Pupils: Pupils are equal, round, and reactive to light. Cardiovascular: Rate and Rhythm: Normal rate and regular rhythm. Heart sounds: No murmur heard. Pulmonary: Effort: Pulmonary effort is normal. No respiratory distress. Breath sounds: Normal breath sounds. Abdominal: General: Abdomen is flat. Palpations: Abdomen is soft. Tenderness: There is abdominal tenderness in the left upper quadrant and left lower quadrant. Thereis no guarding or rebound. Genitourinary: Rectum: Normal. Comments: Rectal exam shows no stool or blood Musculoskeletal: General: No swelling. Cervical back: Neck supple. Skin: General: Skin is warm and dry. Capillary Refill: Capillary refill takes less than 2 seconds. Neurological: General: No focal deficit present. Mental Status: She is alert and oriented to person, place, and time. Cranial Nerves: No cranial nerve deficit. Motor: No weakness. Psychiatric: Mood and Affect: Mood normal. Procedures MDM Labs Reviewed URINALYSIS AND REFLEX TO MICROSCOPIC AND CULTURE - Abnormal Result Value Color, ur Yellow Clarity, ur Cloudy (*) Specific gravity, ur 1.021 pH, urine 6.0 Protein, ur ql Negative Glucose, ur ql Negative Ketones, ur Trace Bilirubin, ur Negative Blood, ur Negative Urobilinogen, ur <2.0 Nitrite, ur Negative Leukocyte esterase, ur 1+ (*) UA reflex comment Reflex to microscopic UA will be performed. CBC WITH AUTO DIFFERENTIAL - Abnormal WBC 10.9 (*) Hgb 13.7 Hct 41.3 Plt 437 (*) MPV 8.5 (*) RBC 4.97 MCV 83.1 MCH 27.6 MCHC 33.2 RDW CV 12.4 RDW SD 37.7 NRBC abs 0.00 DIFFERENTIAL AUTO - Abnormal Neutrophil abs 7.0 (*) Imm gran abs 0.1 Lymphocyte abs 2.4 Monocyte abs 1.1 (*) Eosinophil abs 0.2 Basophil abs 0.1 Neutrophil pct 64.5 Imm gran pct 0.6 Lymphocyte pct 21.8 Monocyte pct 10.3 Eosinophil pct 2.0 Basophil pct 0.8 URINALYSIS, MICROSCOPIC ONLY - Abnormal WBC, ur 0-5 RBC, ur 3-5 (*) Epithelial cells, squamous, ur >50 (*) Bacteria, ur Trace (*) Mucous, ur Present (*) Culture Reflex Comment Value: Reflex conditions for urine culture (WBC >10) not met. POCT HCG, URINE - Normal HCG, ur, POC Negative Lot Number [id number] QC Backgroud Clear Acceptable QC Control Line Acceptable COMPREHENSIVE METABOLIC PANEL Sodium 138 Potassium, pl 3.8 Chloride 101 CO2 25 Anion gap 12 BUN 7 Creatinine 0.60 Glucose 91 Calcium 9.4 Bilirubin, total 0.3 Protein, pl 7.6 Albumin 4.1 Alk phos 109 ALT 18 AST 21 LIPASE Lipase [address] Abdomen Pelvis W Contrast Final Result BP 129/78 (BP Location: Left arm, Patient Position: Sitting) Pulse 80 Temp 36.9 ??C (98.4 ??F) (Oral) Resp 19 Wt (!) 151.8 kg (334 lb 10.5 oz) SpO2 97% BMI 57.42 kg/m?? MDM Amount and/or Complexity of Data Reviewed Decide to obtain previous medical records or to obtain history from someone other than the patient:yes Problem: Abdominal pain DDx includes but is not limited to: Epiploic appendagitis versus appendicitis versus diverticulitis versus intra- abdominal infection versus nephrolithiasis versus gastroenteritis versus metabolic abnormality versus other Plan: Labs CTs as ordered Sxs control Reassessment -Patient seen and evaluated, available studies reviewed -Prior available records reviewed, triage notes reviewed. -patient's labs were grossly unremarkable -patient's CT scan shows no acute abdominal process as per Radiology -on reassessment after antiemetics patient states that she is feeling better. -patient's symptoms are likely due to her recent diagnosis of epiploic appendagitis versus functional abdominal pain versus other. We will plan to discharge patient with outpatient follow-up and strict return precautions. -discussed with patient our symptoms are likely related to her recent diagnosis of epiploic appendagitis. Patient notes she is feeling better after antiemetics. Will plan to discharge her with antiemetics have her follow up with her primary care doctor for both her abdominal pain as well as her reports of rectal bleeding. Patient has lower risk for lower GI bleed given her stable hemoglobin and normal rectal exam. Patient is amenable to this discharge plan. Plan to p.o. challenge the patient and then discharge her should she pass. -patient tolerated p.o. challenge -patient discharged home with return precautions This examination was transcribed using the [employer] voice recognition system without human sheetmetal patternmaker. In an effort to expedite patient care, this report has not been adjusted for typographical, grammatical, and syntax by a trained medical typist. Close outpatient follow-up with a low threshold to return has been mandated , concerning symptoms have been emphasized in detail, and this patient expresses understanding Clinical Impression: Abdominal pain Nausea and vomiting, unspecified vomiting type Rectal bleeding Dispo Discharged home MD Demond Manzano Isaac Ignatius, MD 04/17/23 0456 MACHINE OPERATOR * Shanelle Can, RN - 04/16/2023 7:52 PM CST Pt to ED with c/o left lower abdominal pain, diarrhea, nausea and vomiting. Pt states on 04/07 she was diagnosed with epiploic appendagitis and followed up with GI. Pt was instructed to come here dueto the increased pain, NVD. MACHINE OPERATOR documented in this encounter Plan of Treatment Not on file documented as of this encounter Procedures Procedure Name Priority Date/Time Associated Diagnosis Comments CT ABDOMEN PELVIS W CONTRAST ED 04/16/2023 10:35 PM MOP MACHINE OPERATOR POCT HCG, URINE Routine 04/16/2023 9:10 PM MOP MACHINE OPERATOR URINALYSIS AND REFLEX TO MICROSCOPIC AND CULTURE STAT 04/16/2023 8:53 PM MOP MACHINE OPERATOR URINALYSIS, MICROSCOPIC ONLY STAT 04/16/2023 8:53 PM MOP MACHINE OPERATOR EGFR STAT 04/16/2023 7:57 PM MOP MACHINE OPERATOR DIFFERENTIAL AUTO STAT 04/16/2023 7:5 7 PM MOP MACHINE OPERATOR CBC WITH AUTO DIFFERENTIAL STAT 04/16/2023 7:57 PM MOP MACHINE OPERATOR LIPASE STAT 04/16/2023 7:57 PM MOP MACHINE OPERATOR COMPREHENSIVE METABOLIC PANEL STAT 04/16/2023 7:57 PM MOP MACHINE OPERATOR documented in this encounter Results * CT Abdomen Pelvis W Contrast (04/16/2023 10:35 PM MOP MACHINE OPERATOR) Anatomical Region Laterality Modality Body N/A Computed Tomogra phy 04/16/2023 10:3 8 PM MOP MACHINE OPERATOR Narrative 04/16/2023 10:45 PM MOP MACHINE OPERATOR EXAM DESCRIPTION: ?? CT ABDOMEN PELVIS W CONTRAST REASON FOR STUDY: ?? LLQ abdominal pain, diverticulitis suspected, Nausea/vomiting ?? Pt to ED with c/o left lower abdominal pain, diarrhea, nausea and vomiting. Pt states on 04/07 she was diagnosed with epiploic appendagitis and followed up with GI. Pt was instructed to come here due to the increased pain, NVD. ? TECHNIQUE: CT scan of the abdomen [...] ?? injected via ?? intravenous COMPARISON: ?? 02/26/2023 REFERENCE: Per ACR white paper recommendations, unless otherwise specified no follow-up imaging is recommended for incidental renal and adrenal lesions per consensus recommendations based on imaging criteria. Further lab evaluation could be pursued based on clinical findings. FINDINGS: LOWER CHEST: ??Lung bases are clear. ??Heart size normal. ??No effusion. LIVER/BILIARY: ??Hepatic steatosis. ?Biliary tree normal in caliber. GALLBLADDER: ??Normal. SPLEEN: ??Normal. PANCREAS: ??Normal. ADRENAL GLANDS: ??Normal. KIDNEYS/URINARY TRACT: ??Unremarkable. ?? GI: ??Stomach and small bowel appear normal. ??Colon and appendix unremarkable. ?? OTHER ABDOMINAL/PELVIS: ??Major vascular structures are grossly patent and normal in caliber. ??No enlarged lymph node or free fluid. MSK: ??Normal. ?? BODY WALL: ??Normal. ?? IMPRESSION: No diverticulitis or other acute abnormality identified. ?? THIS IS AN ELECTRONICALLY VERIFIED FINAL REPORT 04/16/2023 10:45 PM - Electronically signed by ??Dejan Rahman M.D. AR: ENE D: ??04/16/2023 10:45 PM T: ??04/16/2023 10:45 PM Report ID: [id number] Reading Location: ??[id number] Procedure Note Dejan Rahman MD - 04/16/2023 EXAM DESCRIPTION: CT ABDOMEN PELVIS W CONTRAST REASON FOR STUDY: LLQ abdominal pain, diverticulitis suspected, Nausea/vomiting Pt to ED with c/o left lower abdominal pain, diarrhea, nausea andvomiting. Pt states on 04/07 she was diagnosed with epiploic appendagitis and followedup with GI. Pt was instructed to come here due to the increased pain, NVD. TECHNIQUE: CT scan of the abdomen and pelvis performed with intravenousand without oral contrast using helical scanning technique with dynamic intravenous contrast injection. Reconstructed coronal and sagittal MPRimages reviewed. All images stored on PACS. Automated exposure control was usedas a dose optimization technique for this examination. CONTRAST TYPE/DOSE: 100mL of IOVERSOL 350 MG IODINE/ML INTRAVENOUSSYRINGE injected via intravenous COMPARISON: 02/26/2023 REFERENCE: Per ACR white paper recommendations, unless otherwise specifiedno follow-up imaging is recommended for incidental renal and adrenal lesionsper consensus recommendations based on imaging criteria. Further labevaluation could be pursued based on clinical findings. FINDINGS: LOWER CHEST: Lung bases are clear. Heart size normal. No effusion. LIVER/BILIARY: Hepatic steatosis. Biliary tree normal in caliber. GALLBLADDER: Normal. SPLEEN: Normal. PANCREAS: Normal. ADRENAL GLANDS: Normal. KIDNEYS/URINARY TRACT: Unremarkable. GI: Stomach and small bowel appear normal. Colon and appendixunremarkable. OTHER ABDOMINAL/PELVIS: Major vascular structures are grossly patent and normal in caliber. No enlarged lymph node or free fluid. MSK: Normal. BODY WALL: Normal. IMPRESSION: No diverticulitis or other acute abnormality identified. THIS IS AN ELECTRONICALLY VERIFIED FINAL REPORT 04/16/2023 10:45 PM - Electronically signed by Dejan Rahman M.D. AR: ENE Report ID: [id number] Reading Location: [place] [address] PROCEDURES Final Resu lt * POCT hCG, urine (04/16/2023 9:10 PM MOP MACHINE OPERATOR) Pathologist [facility] HCG, ur, POC Negative Negative Lot Number [id number] QC Backgroud Clear Acceptable QC Control Line Acceptable Urine 04/16/2023 9:10 PM MOP MACHINE OPERATOR Zackery Lagos MD POINT OF CARE TEST KAREN HIGHTOWER Final Result * (ABNORMAL) Urinalysis, microscopic only (04/16/2023 8:53 PM MOP MACHINE OPERATOR) WBC, ur 0-5 0 - 5 /HPF [facility] Comment:Testing performed by : [facility], [address] [place] [address]., [address] RBC, ur 3-5(A) 0 - 2 /HPF [facility]AN Comment:Testing performed by : [address] [address] Epithelial cells, squamous, ur >50(A) 0 - 5 /HPF [facility] Comment:Testing performed by : [address], [place]., [address] Bacteria, ur Trace(A) FRAN Comment:Testing performed by : [address] [address] Mucous, ur Present(A) FRAN Comment:Testing performed by : [address], [place]., [address] Culture Reflex Comment Reflex conditions for urine culture (WBC >10) not met. [facility]AN Comment:Testing performed by : [address] [address] Urine 04/16/2023 8:53 PM MOP MACHINE OPERATOR 04/16/2023 9:02 PM MOP MACHINE OPERATOR us Zackery Lagos MD LAB URINE ORDERABLES Fi nal Result [facility] Department [place] [address] * (ABNORMAL) Urinalysis reflex to microscopic and culture Urine (04/16/2023 8:53 PM MOP MACHINE OPERATOR) Color, ur Yellow Yellow [facility]AN Comment:Testing performed by : [address] [address] Clarity, ur Cloudy(A) Clear [facility]AN Comment:Testing performed by : [address] [address] Specific gravity, ur 1.021 1.003 - 1.030 [facility]AN Comment:Testing performed by : [address] [address] pH, urine 6.0 FRAN Comment: Interpretive Data ? Urine pH is affected by diet, medications, systemic acid-base disturbances, and renal tubular function. ??pH may affect urinary stone formation. ??For example, urine pH below 6.0 may help reduce the tendency for calcium phosphate stones and pH greater than 6.0 may reduce the tendency for uric acid stone formation. Source: [facility] Current Interpretive Data was last revised on 2017 Testing performed by: [facility], [address] [place] [address]., [address] Protein, ur ql Negative Negative FRAN Comment:Testing performed by : [address] [address] Glucose, ur ql Negative Negative FRAN Comment:Testing performed by : [address], [place]., [address] Ketones, ur Trace Negative FRAN Comment:Testing performed by : [address] [address] Bilirubin, ur Negative Negative FRAN Comment:Testing performed by : [address], [place]., [address] Blood, ur Negative Negative FRAN Comment:Testing performed by : [address], [place]., [address] Urobilinogen, ur <2.0 <2.0 mg/dL FRAN Comment:Testing performed by : [address] [address] Nitrite, ur Negative Negative FRAN Comment:Testing performed by : [address] [address] Leukocyte esterase, ur 1+(A) Negative FRAN Comment:Testing performed by : [address] [address] UA reflex comment Reflex to microscopic UA will be performed. FRAN Comment:Testing performed by : [address] [address] Urine 04/16/2023 8:53 PM MOP MACHINE OPERATOR 04/16/2023 9:02 PM MOP MACHINE OPERATOR us Zackery Lagos MD LAB MICROBIOLOGY - [facility] ORDERABLES Final Result [facility] [address] [facility] Department [place] [address] * eGFR (04/16/2023 7:57 PM MOP MACHINE OPERATOR) eGFR 128 mL/min/1. 73 m2 [facility] Comment: Interpretive Data Reference Interval Normal ?>/= [...] was last reviewed 2021. Testing performed by: [facility], [address] [place] [address]., [address] Blood 04/16/2023 7:57 PM MOP MACHINE OPERATOR 04/16/2023 8:02 PM MOP MACHINE OPERATOR us Zackery Lagos MD LAB BLOOD ORDERABLES Fi nal Result [facility] [address] [facility] Department [place] [address] * (ABNORMAL) Differential, auto (04/16/2023 7:57 PM MOP MACHINE OPERATOR) Pathologist [facility] Neutrophil abs 7.0(H) 1.7 - 6.5 K/cumm [facility] Comment:Testing performed by : [address] [address] Imm gran abs 0.1 0.0 - 0.1 K/cumm [facility] Comment:Testing performed by : [address] [address] Lymphocyte abs 2.4 0.8 - 3.3 K/cumm [facility] Comment:Testing performed by : [address] [address] Monocyte abs 1.1(H) 0.2 - 0.8 K/cumm [facility] Comment:Testing performed by : [address], [place]., [address] Eosinophil abs 0.2 0.0 - 0.5 K/cumm FRAN Comment:Testing performed by : [address] [address] Basophil abs 0.1 0.0 - 0.1 K/cumm [facility] Comment:Testing performed by : [address] [address] Neutrophil pct 64.5 % [facility] Comment: Interpretive Data Percent cell count reference ranges are not reported, since discordance with absolute values may lead to misinterpretation of CBC data. Current Interpretive Data was last revised on 2017. Testing performed by: [address] [address] Imm gran pct 0.6 % [facility] Comment: Interpretive Data Percent cell count reference ranges are not reported, since discordance with absolute values may lead to misinterpretation of CBC data. Current Interpretive Data was last revised on 2017. Testing performed by: [address] [address] Lymphocyte pct 21.8 % [facility] Comment: Interpretive Data Percent cell count reference ranges are not reported, since discordance with absolute values may lead to misinterpretation of CBC data. Current Interpretive Data was last revised on 2017. Testing performed by: [address] [address] Monocyte pct 10.3 % [facility] Comment: Interpretive Data Percent cell count reference ranges are not reported, since discordance with absolute values may lead to misinterpretation of CBC data. Current Interpretive Data was last revised on 2017. Testing performed by: [address] [address] Eosinophil pct 2.0 % [facility]AN Comment: Interpretive Data Percent cell count reference ranges are not reported, since discordance with absolute values may lead to misinterpretation of CBC data. Current Interpretive Data was last revised on 2017. Testing performed by: [address] [address] Basophil pct 0.8 % [facility]AN Comment: Interpretive Data Percent cell count reference ranges are not reported, since discordance with absolute values may lead to misinterpretation of CBC data. Current Interpretive Data was last revised on 2017. Testing performed by: [address] [address] Blood 04/16/2023 7:57 PM MOP MACHINE OPERATOR 04/16/2023 8:02 PM MOP MACHINE OPERATOR Zackery Lagos MD LAB BLOOD ORDERABLES Fi nal Result Performing Organization Address City/[facility] Co de Phone Number [address] [employer] [address] * Lipase (04/16/2023 7:57 PM MOP MACHINE OPERATOR) Lipase 20 10 - 99 Units/L FRAN Comment:Testing performed by : [address] [address] Blood (Blood, Venous) 04/16/2023 7:57 PM MOP MACHINE OPERATOR 04/16/2023 8:02 PM MOP MACHINE OPERATOR Zackery Lagos MD LAB BLOOD ORDERABLES Fi nal Result [address] [address] * Comprehensive metabolic panel (04/16/2023 7:57 PM MOP MACHINE OPERATOR) Sodium 138 135 - 145 mmol/L FRAN Comment:Testing performed by : [address], [place]., [address] Potassium, pl 3.8 3.3 - 4.9 mmol/L FRAN Comment:Testing performed by : [address], [place]., [address] Chloride 101 97 - 110 mmol/L FRAN Comment:Testing performed by : [address], [place]., [address] CO2 25 22 - 32 mmol/L FRAN Comment:Testing performed by : [address], [place]., [address] Anion gap 12 2 - 15 mmol/L FRAN Comment:Testing performed by : [address], [place]., [address] BUN 7 6 - 25 mg/dL FRAN Comment:Testing performed by : [address], [place]., [address] Creatinine 0.60 0.60 - 1.10 mg/dL FRAN Comment:Testing performed by : [address], [place]., [address] Glucose 91 70 - 199 mg/dL FRAN Comment: Interpretive [...] was last revised 2022. Testing performed by: [address] [address] Calcium 9.4 8.5 - 10.3 mg/dL FRAN Comment:Testing performed by : [address], [place]., [address] Bilirubin, total 0.3 0.1 - 1.2 mg/dL FRAN Comment:Testing performed by : [address] [address] Protein, pl 7.6 6.5 - 8.5 g/dL [facility]AN HAYS Comment:Testing performed by : [address] [address] Albumin 4.1 3.5 - 5.0 g/dL [facility]AN [facility]YS Comment:Testing performed by : [address], [place]., [address] Alk phos 109 40 - 130 Units/L [facility]AN [facility]YS Comment:Testing performed by : [address] [address] ALT 18 7 - 45 Units/L FRAN Comment:Testing performed by : [address] [address] AST 21 10 - 45 Units/L FRAN Comment:Testing performed by : [address] [address] Blood 04/16/2023 7:57 PM MOP MACHINE OPERATOR 04/16/2023 8:02 PM MOP MACHINE OPERATOR us Zackery Lagos MD LAB BLOOD ORDERABLES Fi nal Result [facility] Department of Laboratories [place], [place] [id number] * (ABNORMAL) CBC with auto differential (04/16/2023 7:57 PM MOP MACHINE OPERATOR) [facility] WBC 10.9(H) 3.8 - 9.9 K/cumm FRAN HAYS Comment:Testing performed by : [address] [address] Hgb 13.7 11.9 - 15.5 g/dL FRAN HAYS Comment: Interpretive Data A reference range for this assay has not been established for patients with an unknown legal sex. Please refer to the laboratory test catalog for established sex-specific reference intervals. Current interpretive data was last revised on 2023. Testing performed by: [address] [address] Hct 41.3 35.6 - 45.5 % FRAN HAYS Comment: Interpretive Data A reference range for this assay has not been established for patients with an unknown legal sex. Please refer to the laboratory test catalog for established sex-specific reference intervals. Current interpretive data was last revised on 2023. Testing performed by: [address] [address] Plt 437(H) 150 - 400 K/cumm FRAN Comment:Testing performed by : [address] [address] MPV 8.5(L) 9.1 - 12.3 fL FRAN Comment:Testing performed by : [address] [address] RBC 4.97 3.90 - 5.20 M/cumm FRAN Comment: Interpretive Data A reference range for this assay has not been established for patients with an unknown legal sex. Please refer to the laboratory test catalog for established sex-specific reference intervals. Current interpretive data was last revised on 2023. Testing performed by: [address] [address] MCV 83.1 81.3 - 96.4 fL FRAN Comment:Testing performed by : [address] [address] MCH 27.6 27.1 - 33.3 pg FRAN Comment:Testing performed by : [address] [address] MCHC 33.2 32.3 - 35.7 g/dL FRAN Comment:Testing performed by : [address] [address] RDW CV 12.4 11.1 - 14.9 % FRAN Comment:Testing performed by : [address] [address] RDW SD 37.7 35.7 - 48.1 fL FRAN Comment:Testing performed by : [address] [address] NRBC abs 0.00 0.00 - 0.01 K/cumm FRAN Comment:Testing performed by : [address] [address] Blood (Blood, Venous) 04/16/2023 7:57 PM MOP MACHINE OPERATOR 04/16/2023 8:02 PM MOP MACHINE OPERATOR us Zackery Lagos MD LAB BLOOD ORDERABLES Fi nal Result FRAN [facility] [address] [facility] Department [place] [address] documented in this encounter Visit Diagnoses Diagnosis Abdominal pain- Primary Abdominal pain, unspecified site Nausea and vomiting, unspecified vomiting type Rectal bleeding Hemorrhage of rectum and anus documented in this encounter Administered Medications Inactive Administered Medications - up to 3 most recent administrations Medication Order MAR Action Action Date Dose Rate Site diphenhydrAMINE (BENADRYL) 50 mg/mL injection 25 mg 25 mg, intravenous, Administer over 2 Minutes, Once, On Sat04/17/23 at 0300, For 1 dose Given 04/17/2023 3:22 AM MOP MACHINE OPERATOR 25 mg HYDROmorphone (DILAUDID) injection 0.5 mg 0.5 mg, intravenous, Administer over 2 Minutes, Once, On Sat04/17/23 at 0300, For 1 dose Given 04/17/2023 3:22 AM MOP MACHINE OPERATOR 0.5 mg ioversoL (OPTIRAY 350) syringe 100 mL 100 mL, intravenous, Once in imaging, contrast, Starting on Sat04/16/23 at 2230, For 1 dose Contrast Given 04/16/2023 10:30 PM MOP MACHINE OPERATOR 100 mL Right Antecubital prochlorperazine (COMPAZINE) injection 10 mg 10 mg, intravenous, Administer over 2 Minutes, Once, On Sat04/17/23 at 0300, For 1 dose Given 04/17/2023 3:22 AM MOP MACHINE OPERATOR 10 mg documented in this encounter Active and Recently Administered Medications Times are shown in MOP MACHINE OPERATOR. Scheduled Medication Order 04/15/2023 04/16/2023 04/17/2023 diphenhydrAMINE (BENADRYL) 50 mg/mL injection 25 mg (COMPLETED) 25 mg, intravenous, Administer over 2 Minutes, Once, On Sat04/17/23 at 0300, For 1 dose 0322 (Given - Provid er: Delfin Koch RN) HYDROmorphone (DILAUDID) injection 0.5 mg (COMPLETED) 0.5 mg, intravenous, Administer over 2 Minutes, Once, On Sat04/17/23 at 0300, For 1 dose 0322 (Given - Provid er: Delfin Koch RN) prochlorperazine (COMPAZINE) injection 10 mg (COMPLETED) 10 mg, intravenous, Administer over 2 Minutes, Once, On Sat04/17/23 at 0300, For 1 dose 0322 (Given - Provid er: Delfin Koch RN) PRN Medication Order 04/15/2023 04/16/2023 04/17/2023 ioversoL (OPTIRAY 350) syringe 100 mL (COMPLETED) 100 mL, intravenous, Once in imaging, contrast, Starting on Sat04/16/23 at 2230, For 1 dose 2230 (Contrast Given - Provider: Milton Castillo, RT) documented in this encounter Orders IV Count Last Ordered Date First Orde red Date SALINE LOCK IV 1 04/16/2023 documented in this encounter Care Teams Loom Cleaner Relationship Specialty Start Date End Date Lorie Vanessa NP [address] [place] [address] PCP - General Family Practice 05/29/22 No, Physician 06/08/21 documented as of this encounter
--- OUTSIDE RECORDS SUMMARY | 2024-06-06 00:28 | XMS_ITS | Encounter Summary ---
Author Organization [facility] Healthcare Address [address] [place] [address] Care Team Providers Care Car Top Bolter Name Role Phone No, Physician Unavailable Lorie Vanessa NP Primary Care Provider [phone] Encounter Details Date Type Department Care Team (Late st Contact Info) Description 04/15/2023 Orders Only [facility] Gastroenterology at [address] [place] [address] Cj Thomas MD [address] [place] [address] [address] [place] [address] Nausea (Primary Dx) Social History [...] file Legal Sex Female 6:55 PM FINANCIAL MANAGER Gender Identity Female 06/06/2022 7:40 AM FINANCIAL MANAGER Sexual Orientation Not on file documented as of this encounter Ordered Prescriptions Prescription Sig Dispense Quantity Refills Last Filled Start Date End Date ondansetron ODT (ZOFRAN-ODT) 4 mg disintegrating tabletIndications:Na usea Take 2 tablets (8 mg total) by mouth every 6 (six) hours as needed for nausea or vomiting 30 tablet 04/15/2023 3 documented in this encounter Plan of Treatment Not on file documented as of this encounter Visit Diagnoses Diagnosis Nausea- Primary Nausea alone documented in this encounter Care Teams Car Top Bolter Relationship Specialty Start Date End Date Lorie Vanessa NP [address] [place] [address] PCP - General Family Practice 05/29/22 Mel, Physician 06/08/21 documented as of this encounter
--- OUTSIDE RECORDS SUMMARY | 2024-06-06 00:28 | XMS_ITS | Encounter Summary ---
Author Organization [facility] Healthcare Address [address] [place] [address] Care Team Providers Care Director Veterinary Name Role Phone No, Physician Unavailable Lorie Vanessa NP Primary Care Provider [phone] Encounter Details Date Type Department Care Team (Late st Contact Info) Description 04/10/2023 Orders Only [facility] Gastroenterology at [address] [place] [address] Cj Thomas MD [address] [place] [address] [address] [place] [address] Epiploic appendagitis (Primary Dx) Social History Tobacco Use Types [...] on file Legal Sex Female 6:55 PM OVEN DUMPER Gender Identity Female 06/06/2022 7:40 AM OVEN DUMPER Sexual Orientation Not on file documented as of this encounter Plan of Treatment Not on file documented as of this encounter Visit Diagnoses Diagnosis Epiploic appendagitis- Primary documented in this encounter Care Teams Director Veterinary Relationship Specialty Start Date End Date Lorie Vanessa NP [address] [place] [address] PCP - General Family Practice 05/29/22 No, Physician 06/08/21 documented as of this encounter
--- OUTSIDE RECORDS SUMMARY | 2024-06-06 00:28 | XMS_ITS | Encounter Summary ---
Author Organization [facility] Healthcare Address [address] [place] [address] Care Team Providers Care Escrow Agent Name Role Phone No, Physician Unavailable Lorie Vanessa NP Primary Care Provider [phone] Encounter Details Date Type Department Care Team (Late st Contact Info) Description 04/11/2023 Orders Only [facility] Gastroenterology at [address] [place] [address] Cj Thomas MD [address] [place] [address] [address] [place] [address] Epiploic appendagitis (Primary Dx) Social [...] on file Legal Sex Female 6:55 PM GUEST EXPERIENCE MANAGER Gender Identity Female 06/06/2022 7:40 AM GUEST EXPERIENCE MANAGER Sexual Orientation Not on file documented as of this encounter Plan of Treatment Not on file documented as of this encounter Visit Diagnoses Diagnosis Epiploic appendagitis- Primary documented in this encounter Care Teams Escrow Agent Relationship Specialty Start Date End Date Lorie Vanessa NP [address] [place] [address] PCP - General Family Practice 05/29/22 No, Physician 06/08/21 documented as of this encounter
--- OUTSIDE RECORDS SUMMARY | 2024-06-06 00:28 | XMS_ITS | Encounter Summary ---
Author Organization [facility] Address [address] [place] [address] Phone Care Team Providers Care Auricular Therapist Name Role Phone No, Physician Unavailable Lorie Vanessa NP Primary Care Provider [phone] Encounter Details Date Type Department Care Team (Late st Contact Info) Description 04/24/2023 Orders Only [facility] Allergy and Immunology [address] [facility] [address] [place] [address] Jackson Dodd MD PhD [address] [facility] [address] [place] [address] Chronic cough (Primary Dx); Shortness of breath; Recurrent URI (upper respiratory infection) Social History Tobacco Use Types Packs/Day Years [...] on file Legal Sex Female 6:55 PM REVENUE INSPECTOR Gender Identity Female 06/06/2022 7:40 AM REVENUE INSPECTOR Sexual Orientation Not on file documented as of this encounter Progress Notes * Jackson Dodd MD PhD - 04/24/2023 4:17 PM CST She had normal PFTs, but still with persistent productive cough and shortness of breath. Requiring multiple courses of steroids and antibiotics. Will get chest CT to evaluate lung parenchyma and ruleout if there may be some developing bronchiectasis in setting of productive cough and recurrent URIs. (R05.3) Chronic cough (primary encounter diagnosis) Plan: CT Chest WO Contrast (R06.02) Shortness of breath Plan: CT Chest WO Contrast (J06.9) Recurrent URI (upper respiratory infection) Plan: CT Chest WO Contrast NUE INSPECTOR documented in this encounter Plan of Treatment Not on file documented as of this encounter Visit Diagnoses Diagnosis Chronic cough- Primary Cough Shortness of breath Recurrent URI (upper respiratory infection) documented in this encounter Care Teams Auricular Therapist Relationship Specialty Start Date End Date Lorie Vansesa NP [address] [place] [address] PCP - General Family Practice 05/29/22 No, Physician 06/08/21 documented as of this encounter
--- OUTSIDE RECORDS SUMMARY | 2024-06-06 00:28 | XMS_ITS | Encounter Summary ---
Author Organization [facility] Healthcare Address [address] [place] [address] Care Team Providers Care Registered Representative Name Role Phone No, Physician Unavailable Lorie Vanessa NP Primary Care Provider [phone] Reason for Visit * Reason Comments Diarrhea Entered automaticall y based on patient selection in [employer]. Encounter Details Date Type Department Care Team (Late st Contact Info) Description 04/14/2023 1:05 AM PHOTOENGRAVING HELPER E-Visit [facility] Virtual Care [address] [place] [address] Evy Ansari NP [address] [facility] [address] [place] [address] E-Visit for Diarrhea Social History Tobacco Use [...] on file Legal Sex Female 6:55 PM PHOTOENGRAVING HELPER Gender Identity Female 06/06/2022 7:40 AM PHOTOENGRAVING HELPER Sexual Orientation Not on file documented as of this encounter Miscellaneous Notes * E-Visit Note - Evy Alejandro NP - 04/14/2023 6:21 AM PHOTOENGRAVING HELPER Emily Guerrier 04/14/2023 E-Visit Submission Subjective/Objective: Emily Guerrier contacted the office today via e-visit for Diarrhea. The patient-submitted questionnaire was assessed for pertinent information and the patient's problem list, medication list, and allergies were reviewed as part of the e-visit. The chart was updated to identify any changes in these areas. Assessment: Diagnosis Plan 1. Viral gastroenteritis Plan: Needs to be seen for further evaluation. The patient was given information regarding any new medication(s) prescribed, if applicable, as well as any yalb-dfs-datqhdo remedies. She was given instructions regarding follow up and timeframe if symptoms worsen or don???t improve. These instructions were included in the [employer] message reply tothe patient. Patient Instructions were included in the message reply to patient. My total encounter time on 04/14/2023 was 5 minutes which was spent in the activities documented inthe note. Evy Alejandro NP OENGRAVING HELPER documented in this encounter Plan of Treatment Not on file documented as of this encounter Visit Diagnoses Diagnosis Viral gastroenteritis- Primary Intestinal infection due to other organism, NEC documented in this encounter Care Teams Registered Representative Relationship Specialty Start Date End Date Lorie Vanessa NP [address] [place] [address] PCP - General Family Practice 05/29/22 No, Physician 06/08/21 documented as of this encounter
--- OUTSIDE RECORDS SUMMARY | 2024-06-06 00:28 | XMS_ITS | Encounter Summary ---
Author Organization [facility] Healthcare Address [address] [place] [address] Care Team Providers Care Flight Coordinator Name Role Phone No, Physician Unavailable Lorie Vanessa NP Primary Care Provider [phone] Encounter Details Date Type Department Care Team (Late st Contact Info) Description 04/22/2023 Telephone [facility] Primary Care at [place] [address] [facility] [address] [place] [address] Lorie Vanessa NP [facility] [address] [address] Social History Tobacco Use Types [...] on file Legal Sex Female 6:55 PM ADVERTISING ANALYST Gender Identity Female 06/06/2022 7:40 AM ADVERTISING ANALYST Sexual Orientation Not on file documented as of this encounter Miscellaneous Notes * Telephone Encounter - Lorie Vanessa NP - 04/22/2023 1:13 PM CST Referral made to Dermatology for evaluation of recurrent skin lesions of buttock and breasts. RTISING ANALYST documented in this encounter Plan of Treatment Not on file documented as of this encounter Visit Diagnoses Diagnosis Skin lesion of breast- Primary Nodule of buttock documented in this encounter Care Teams Flight Coordinator Relationship Specialty Start Date End Date Lorie Vanessa NP [address] [place] [address] PCP - General Family Practice 05/29/22 No, Physician 06/08/21 documented as of this encounter
--- OUTSIDE RECORDS SUMMARY | 2024-06-06 00:28 | XMS_ITS | Encounter Summary ---
Author Organization [facility] Address [address] [place] [address] Phone Care Team Providers Care Appraiser Boats And Marine Name Role Phone No, Physician Unavailable Lorie Vanessa NP Primary Care Provider [phone] Reason for Visit * Reason Comments Follow-up Encounter Details Date Type Department Care Team (Late st Contact Info) Description 04/26/2023 10:45 AM MALTED MILK SUPERVISOR Office Visit [facility] Orthopaedic Surgery [address] [facility] [address] [place] [phone] [place] [address] [place] [address] Closed displaced fracture of fifth metatarsal bone [...] on file Legal Sex Female 6:55 PM MALTED MILK SUPERVISOR Gender Identity Female 06/06/2022 7:40 AM MALTED MILK SUPERVISOR Sexual Orientation Not on file documented as of this encounter Progress Notes * Marco Antonio Reynoso, SENIOR TERADATA DEVELOPER - 04/26/2023 10:45 AM CST RETURN PATIENT VISIT INTERIM HISTORY The patient is here for follow-up of her right foot. She is a fifth metatarsal base fracture. She would an injury January 26. She was originally treated in a boot. She was continuing to have pain and then a cast. She is back in the boot. She still is having some pain and swelling. She does take vitamin-D daily. PHYSICAL EXAMINATION On physical exam she is alert oriented x3. Skin exam reveals no rashes, lesions or ulcers. Sensation is intact to light touch. She chief operator lock tender at the base of the right fifth metatarsal. She has somemild swelling. No redness or bruising. Minimal tenderness on the plantar aspect of the foot. REVIEW OF X-RAYS/STUDIES I have ordered right foot x-ray and personally reviewed the images. My independent interpretation is healing mildly displaced intra-articular right fifth metatarsal base fracture. IMPRESSION/DIAGNOSIS Healing right fifth metatarsal base fracture TREATMENT/PLAN We discussed treatment options in the office today. She still has some pain and swelling. I would like for her to try to wean from the boot. Boot weaning instructions were provided. She should let pain be her guide. Once she can walk around all day without pain she can advance activity. If she continues to have pain and swelling she will need to stay in the boot. I recommend she ice 1 to 2 times a day for 10-15 minutes at a time. I will check her back in 4 weeks and if no healing could considera bone stimulator. Would also likely get her started on physical therapy. She is agreeable to plan.All her questions were answered today. FOLLOW UP Four weeks with new weight-bearing films of the right foot I was in collaboration with Dr. Walter today. Marco Antonio Reynoso RN,BSN, MSN, APPRAISER LAND, MERCHANDISING PROFESSOR-C, in collaborative practice with Dr. George Elizondo and Dr. Dionisio Walter Nurse Practitioner, Foot and Ankle Service [facility] Orthopedics. This is TONY Thomas dictating using [employer]. Starch And Prosize Mixer variances may occur. ED MILK SUPERVISOR documented in this encounter Plan of Treatment Not on file documented as of this encounter Results * XR Foot Right 3 or More Views (04/26/2023 10:37 AM MALTED MILK SUPERVISOR) Anatomical Region Laterality Modality Lower Extremities, Foot Right Computed Radiography 04/26/2023 11:3 0 AM MALTED MILK SUPERVISOR Impressions 04/26/2023 11:30 AM MALTED MILK SUPERVISOR 1. ??Unchanged mildly displaced, intra-articular fracture of the right 5th metatarsal base. Electronically signed by: Ray Cruz M.D. Narrative 04/26/2023 11:30 AM MALTED MILK SUPERVISOR EXAMINATION: XR FOOT RIGHT 3 OR MORE [...] by: Ray Cruz M.D. Marco Antonio Reynoso SENIOR TERADATA DEVELOPER IMG XR PROCEDURES Final Re sult documented in this encounter Visit Diagnoses Diagnosis Closed displaced fracture of fifth metatarsal bone of right foot, initial encounter- Primary Closed displaced fracture of fifth metatarsal bone of right foot, initial encounter documented in this encounter Care Teams Appraiser Boats And Marine Relationship Specialty Start Date End Date Lorie Vanessa NP [address] [place] [address] PCP - General Family Practice 05/29/22 No, Physician 06/08/21 documented as of this encounter
--- OUTSIDE RECORDS SUMMARY | 2024-06-06 00:28 | XMS_ITS | Encounter Summary ---
Author Organization [facility] Healthcare Address [address] [place] [address] Care Team Providers Care Senior Business Objects Developer Name Role Phone No, Physician Unavailable Lorie Vanessa NP Primary Care Provider [phone] Encounter Details Date Type Department Care Team (Late st Contact Info) Description 04/14/2023 Patient Self-Triage [facility] HealthCare/ Physicians [address] [place] [address] Mychart, Generic Provider [address] [place] [address] Social History Tobacco Use Types Packs/Day [...] on file Legal Sex Female 6:55 PM MEDICAL MANAGER Gender Identity Female 06/06/2022 7:40 AM MEDICAL MANAGER Sexual Orientation Not on file documented as of this encounter Plan of Treatment Not on file documented as of this encounter Visit Diagnoses Not on filedocumented in this encounter Care Teams Senior Business Objects Developer Relationship Specialty Start Date End Date Lorie Vanessa NP [address] [place] [address] PCP - General Family Practice 05/29/22 No, Physician 06/08/21 documented as of this encounter
--- OUTSIDE RECORDS SUMMARY | 2024-06-06 00:29 | XMS_ITS | Encounter Summary ---
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 Gender Identity Female 06/06/2022 7:40 AM DIRECTOR HARDWARE Sexual Orientation Not on file documented as [...] mouth nightly triamcinolone (NASACORT) 55 mcg nasal inhalerIndications: Allergic Rhinitis,Chronic Non-Allergic Rhinitis Administer 2 sprays into each nostril daily Can increase to twice daily if symptoms persist 16.9 mL 11 09/04/2022 cromolyn (GASTROCROM) 100 mg/5 mL solutionIndications :systemic mastocytosis Take 10 mL (200 mg total) by mouth 4 (four) times a day before meals and nightly 1200 mL 11 12/03/2022 4 famotidine (PEPCID) 40 mg tabletIndications:G astroesophageal reflux disease without esophagitis TAKE 1 TABLET(40 MG) BY MOUTH EVERY NIGHT NEEDED FOR HEARTBURN 30 tablet 3 01/08/2023 3 fluconazole (DIFLUCAN) 150 mg tabletIndications:C hronic Suppression,Urinary Tract/Genitourinary Infection Take 1 tab every other day for 3 doses if yeast infection starts, then weekly after to prevent recurrence 15 tablet 12/03/2022 3 magnesium oxide (MAG-OX) 400 mg (241.3 mg elemental magnesium) tablet TAKE 1 TABLET(400 MG) BY MOUTH DAILY 90 tablet 1 01/22/2023 4 norethindrone (MICRONOR) 0.35 mg tablet Take 1 tablet (0.35 mg total) by mouth daily 28 tablet 1 02/18/2023 3 ondansetron ODT (ZOFRAN-ODT) 8 mg disintegrating tabletIndications:N ausea DISSOLVE 1 TABLET(8 MG) ON THE TONGUE EVERY 8 HOURS NEEDED FOR NAUSEA OR VOMITING 30 tablet 1 02/07/[address] (PROTONIX) 40 mg EC tabletIndications:N ausea,Right upper quadrant pain,Gastroesophage al reflux disease without esophagitis Take 1 tablet (40 mg total) by mouth 2 (two) times a day 180 tablet 1 01/03/2023 4 propranolol LA (INDERAL LA) 60 mg 24 hr capsule Take 1 capsule (60 mg total) by mouth daily 30 capsule 11 07/13/2022 4 sucralfate (CARAFATE) 1 gram tabletIndications:N ausea and vomiting, unspecified vomiting type,Abdominal pain Take [...] VIEWS Schedule Routine, Read Routine (OP Routine) 03/27/2023 9:53 AM CDT Closed displaced fracture of fifth metatarsal bone of right foot, initial encounter documented in this encounter Results * XR Foot Right 3 or More Views (03/27/2023 9:53 AM CDT) Anatomical Region Laterality Modality Lower Extremities, Foot Right Computed Radiography 03/27/2023 10:1 6 AM CDT Impressions 03/27/2023 10:16 AM CDT 1. ??Unchanged mildly displaced intra-articular right 5th metatarsal base fracture. Electronically signed by: Philip Rosenbaum M.D. Narrative 03/27/2023 10:16 AM CDT EXAMINATION: XR FOOT RIGHT 3 OR MORE VIEWS HISTORY: ??Fracture follow-up FINDINGS: 3 views of the right foot are compared to radiograph 1123. There is unchanged mildly displaced intra-articular right 5th metatarsal base fracture. ??There is resorption along the fracture line without significant periosteal reaction or callus formation. Achilles enthesophyte. ??Calcification in the pretibial soft tissue. Joint spaces are preserved. ??No new fracture. Procedure Note Philip Rosenbaum MD - 03/27/2023 EXAMINATION: XR FOOT RIGHT 3 OR MORE VIEWS HISTORY: Fracture follow-up FINDINGS: 3 views of the right foot are compared to radiograph 1123. There is unchanged mildly displaced intra-articular right 5th metatarsal base fracture. There is resorption along the fracture line without significant periosteal reaction or callus formation. Achilles enthesophyte. Calcification in the pretibial soft tissue. Joint spaces are preserved. No new fracture. IMPRESSION: 1. Unchanged mildly displaced intra-articular right 5th metatarsal base fracture. Electronically signed by: Philip Rosenbaum M.D. Marco Antonio Reynoso SOLID TIRE FINISHER IMG XR PROCEDURES Final Re sult documented in this encounter Visit Diagnoses Diagnosis Closed displaced fracture of fifth metatarsal bone of right foot, initial encounter documented in this encounter Care Teams Security Systems Integrator Relationship Specialty Start Date End Date Lorie Vanessa NP [address] [place] [id number] PCP - General Family Practice 05/29/22 No, Physician 06/08/21 documented as of this encounter
--- OUTSIDE RECORDS SUMMARY | 2024-06-06 00:29 | XMS_ITS | Encounter Summary ---
Author Organization [facility] Healthcare Address [address] [place] [address] Care Team Providers Care Needle Loom Weaver Name Role Phone No, Physician Unavailable Lorie Vanessa NP Primary Care Provider [phone] Reason for Visit * Reason Onset Date Comments Discuss Test Results 03/20/2023 Encounter Details Date Type Department Care Team (Late st Contact Info) Description 03/20/2023 Telephone [facility] Medical Group Gastroenterology at [address] [phone] Cj Thomas MD [address] [place] [phone] Discuss Test Results Social History Tobacco Use Types Packs/Day Years [...] on file Legal Sex Female 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 She will call us back to schedule an appointment to discuss the results of the test in full. The patient's gastric emptying study was normal at the 4 hour rae. However, the impression at 60 and 120 had delayed emptying visualized.The patient will call back to schedule an appointment. * Telephone Encounter - Dahiana Campa CMA - 03/20/2023 1:08 PM CDT Attempted to call pt. No answer. Left message on the patient's voicemail to call our office back todiscuss the test results below. * Telephone Encounter - Dahiana Campa CMA - 03/20/2023 1:07 PM CDT ----- Message from Cj Thomas MD sent at 03/20/2023 12:18 PM CDT ----- Please call patient and inform gastric emptying study was normal at 4 hours. documented in this encounter Plan of Treatment Not on file documented as of this encounter Visit Diagnoses Not on filedocumented in this encounter Care Teams Needle Loom Weaver Relationship Specialty Start Date End Date Lorie Vanessa, FLUME RIDE OPERATOR [address] [place] [id number] PCP - General Family Practice 05/29/22 No, Physician 06/08/21 documented as of this encounter
--- OUTSIDE RECORDS SUMMARY | 2024-06-06 00:29 | XMS_ITS | Encounter Summary ---
Author Organization [facility] Healthcare Address [address] [place] [address] Care Team Providers Care Polishing Machine Tender Name Role Phone No, Physician Unavailable Lorie Vanessa NP Primary Care Provider [phone] Reason for Visit * Reason Comments PT Treatment * Consultation (Routine) - Closed Specialty Diagnoses / Procedures Referred By Cyn burnett Referred To Contact Physical Therapy Diagnoses Left lumbar pain Justin Grover NP [address] [place] [address] Phone: tel: fax: [address] [phone] Referral ID Status Reason Start Date Expiration Date V isits Requested Visits Authorized [id number] Closed Evaluate and Treat 02/11/2023 03/12/2024 18 Encounter Details Date Type Department Care Team (Late st Contact Info) Description 03/28/2023 2:00 PM CDT Therapy [facility] Physical Therapy [address] [place] [phone] Jodi Gan, GRACIELA Left lumbar pain (Primary Dx); Sprain of ligaments of lumbar spine, initial encounter Social History Tobacco Use Types Packs/Day Years [...] on file 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 Physical Therapy Visit PT Daily Treatment Note 03/28/2023 Emily Guerrier 1995 ICD-9-CM ICD-10-CM 1. Left lumbar pain 724.2 M54.50 2. 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 She was pulling to her left and felt a sharp pain and a popping sensation in her left low back. Initially started PT on 01/23/23 and had two sessions before she broke her foot. She reports I rolled my ankle and fractured the 5th metatarsal at the base. Wearing a boot daytime babysitter, but is allowed to remove with supine exercises. Followed back up with [facility] (02/11/23) and was referred back to PT with an additional back diagnosis. PMH: POTS. Job Description- Nurse: Lifting 10-35 lbs Climbing 0-25% Grasping, pinching, holding 0-25% Lifting or carrying 0-25% Pushing or pulling 0-25% Reaching overhead 0-25% Sitting 0-25% Squatting, bending, kneeling 0-25% Standing 26-75% Walking or moving 26-75% Visit Info Next MD Visit: 04/01/23 Progress Report Completed: 02/12/23 (3rd visit), 02/19/23 (7th visit) Progress Report Due: -- New Script from 03/06/2023: Physical therapy 3x/week for 2 weeks. Start Time: 1357 End Time: 1436 Patient ID verified. Subjective: Emily Guerrier states that her back is ok today. I haven't done much today. Patient states that she got the cast off her R foot yesterday. She states that though she was not able to attend her appointment yesterday, she did perform her home exercise program. She states that her doctor informed her that she can take her boot off unless she is walking. She states that she has spent most of the day sitting but continues to have soreness with walking increased distances. Pain: 08/03 Objective: Treatment Provided: See flowsheet below Treatments 03/21/23 03/22/23 03/28/23 Visit Number/Visits Ordered 06/01 (New script) 07/02 07/30 Received new script Posterior Pelvic Tilt Supine Gluteal Sets Hooklying lower trunk rotation Bent Knee Fallouts ANA hip external rotation in hooklying Yellow 2x10, performed ANA (boot & cast donned) Yellow 2x10, performed ANA (boot donned) Lower Abdominal Marching 2x10 reps 2x10 reps 2x10 reps Lower abdominal contraction with alternate UE lift 2x10 reps 2x10 reps 2x10 reps bugs UEs only, x1--discontinued due to reports of increased pain Lower abdominal contraction with ANA shoulder extension in supine (latissimus pull down) Clamshells Hips flexed & hips neutral, 2x12 each ANA, Yellow Hips flexed & hips neutral, 2x12 each ANA, Yellow Hips flexed & hips neutral, 2x12 each ANA, Yellow Side lying hip abduction X10 each, ANA 2x12 each, ANA x15 each, ANA Bridging with israeli ball X9--discontinued due to reports of increased pain Prone alternating hip extension with lower abdominal contraction Seated Nerve Glides Seated TA with alternating LE march, small ROM Seated rows Blue Armenian ball, 2x12, Green theraband Blue Armenian ball, 2x12, Green theraband Blue Armenian ball, 2x12, Green theraband Seated latissimus dorsi pull downs Blue Armenian ball, 2x12 Green theraband Blue Armenian ball, 2x12, Green theraband Blue Armenian ball, 2x12, Green theraband Pallof press X10 each, ANA, Green theraband 2x12 each, ANA, Green theraband, seated on Armenian ball Standing frontal plane leaning Stride stance transverse plane reaching Cold Pack- lumbar Home Exercise Program: 01/24/23: Posterior Pelvic Tilt, (02/12/23 stopped due to foot fracture), Clamshells, Bent Knee Fallouts Assessment: Emily Guerrier continues to be appropriately challenged by clamshells but continues to require minimal verbal cueing for avoidance of compensatory strategies. Verbal cueing to avoid upper trapezius hiking with rows is required this visit. She demonstrates good core stability with seated Armenian ball theraband exercises this visit. Patient Response to Treatment: Patient reports low back pain as 5/10 following treatment session & L hip pain as 6/10 following treatment session. Rehab Prognosis/Potential: good. Patient would benefit from continued skilled Physical Therapy. STG to be met by 04/13/23 1) Patient will demonstrate normalized roberts left L4 myotomal strength to improve her gait mechanics.-- PROGRESSING/ONGOING 2) Patient will demonstrate at least 75% of full lumbar AROM in all directions with no greater than2/10 low back pain to improve her tolerance for lifting. -- PROGRESSING/ONGOING 3) Patient will be able to stand for at least 20 minutes with no greater than 2/10 low back pain toimprove her tolerance to prolonged activity.-- ONGOING LTG to be met by discharge. 1) Patient independent with home exercise program -- ONGOING 2) Patient to improve function on RADHA to 19% or less -- ONGOING 3) Patient will return to completing her occupational demands without limitation due to her currentsubjective complaints.-- ONGOING 4) Patient will drive for at least 20 minutes with no reported low back or left lower extremity radicular complaints.-- ONGOING Plan: Perform progress note at next visit for physician follow up on 04/01/23. Jodi Gan PT Time Calculator Time-Based Code Calculator Minutes for Ther Ex/Ther Procedure (72096):: 31 minutes Minutes for Neuro Re-Ed (05615): : 8 minutes Timed Code Treatment Minutes:: 39 minutes Total Treatment Time: 39 documented in this encounter Plan of Treatment Not on file documented as of this encounter Visit Diagnoses Diagnosis Left lumbar pain- Primary Lumbago Sprain of ligaments of lumbar spine, initial encounter documented in this encounter Care Teams Polishing Machine Tender Relationship Specialty Start Date End Date Lorie Vanessa NP [address] [place] [id number] PCP - General Family Practice 05/29/22 No, Physician 06/08/21 documented as of this encounter
--- OUTSIDE RECORDS SUMMARY | 2024-06-06 00:29 | XMS_ITS | Encounter Summary ---
Author Organization [facility] Address [address] [place] [address] Phone Care Team Providers Care Garbage Man Name Role Phone No, Physician Unavailable Lorie Vanessa NP Primary Care Provider [phone] Reason for Visit * Reason Comments Follow-up Encounter Details Date Type Department Care Team (Late st Contact Info) Description 03/27/2023 9:45 AM CDT Office Visit [facility] Orthopaedic Surgery [address] [facility] Medical Office Building [address] [place] [address] [place] [address] [place] [address] Closed displaced fracture of fifth metatarsal bone [...] on file 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 She is a fifth metatarsal base fracture. She has been in a cast. She has been having some issues with her cast getting loose. Her injury occurred January 26. She was seen in the orthopedic injury clinic on February 04 and initially put intoa boot. She was casted on March 06 due to continued pain. PHYSICAL EXAMINATION On physical exam the cast was removed in the office today. Skin exam reveals no rashes, lesions or ulcers. Sensation is intact to light touch. She still has tenderness at the base of the right fifth metatarsal. Minimal swelling. No redness or bruising. No pain on the plantar aspect of the foot. REVIEW OF X-RAYS/STUDIES I have ordered right foot x-ray and personally reviewed the images. My independent interpretation is stable unchanged mildly displaced intra-articular right fifth metatarsal base fracture. IMPRESSION/DIAGNOSIS Right fifth metatarsal base fracture TREATMENT/PLAN We discussed treatment options in the office today. She will go into her boot today. She can be weight-bearing as tolerated. She can take the boot off to sleep, take a bath or shower and do [id number] exercises. She can continue to ice. We will have her do this for the next 3-4 weeks and checkher back at that time. Ideally we would like to have her wean from the boot then. She is agreeable with the plan. All of her questions were answered today. FOLLOW UP 3-4 weeks with new weight-bearing films of the right foot I was in collaboration with Dr. Walter today. Marco Antonio Reynoso, RN,BSN, MSN, SUPERVISOR BOTTLE MACHINES, RIBBON LAP MACHINE TENDER-C, in collaborative practice with Dr. George Elizondo and Dr. Dionisio Walter Nurse Practitioner, Foot and Ankle Service [facility]. This is TONY Thomas dictating using [employer] Software Program. Factory Maintenance Technician variances may occur. * Varun Saunders - 03/27/2023 9:45 AM CDTAssociated Order(s): Ortho Casting/Splinting Documentation Post-Procedure Diagnose(s): Closed displaced fracture of fifth metatarsal bone of right foot, initial encounter Ortho Casting/Splinting Documentation Date/Time: 03/27/2023 12:46 PM Performed by: Varun Saunders Authorized by: Marco Antonio Reynoso NP Sensation: Normal Skin Condition: Clean, dry, and intact [place]/Sutures Removed: No Pin Pulled: No Cast Removed: No Cast Applied: No Location: Foot Foot: R foot Supplies: Cast removed only Capillary Refill: Normal Patient tolerance of procedure: Tolerated well, no immediate complications Will return to her walker boot. documented in this encounter Plan of Treatment Not on file documented as of this encounter Procedures Procedure Name Priority Date/Time Associated Diagnosis Comments ORTHO CASTING/SPLINTING Routine 03/27/2023 12:46 PM CDT Closed displaced fracture of fifth metatarsal bone of right foot, initial encounter documented in this encounter Results * Ortho Casting/Splinting Documentation (03/27/2023 12:46 PM CDT) Narrative Varun Saunders - 03/27/2023 12:46 PM CDT Varun Saunders ? 03/27/2023 12:47 PM Ortho Casting/Splinting Documentation Date/Time: 03/27/2023 12:46 PM Performed by: Varun Saunders Authorized by: Marco Antonio Reynoso NP ?? Sensation: ??Normal Skin Condition: ??Clean, dry, and intact [place]/Sutures Removed: No ?? Pin Pulled: No ?? Cast Removed: No ?? Cast Applied: No ?? Location: ??Foot Foot: ??R foot Supplies: ??Cast removed only Capillary Refill: ??Normal Patient tolerance of procedure: ??Tolerated well, no immediate complications Will return to her walker boot. us Marco Antonio Reynoso NP IN CLINIC/BEDSIDE ORDERABL ES Final Result * XR Foot Right 3 or More [...] fracture. Electronically signed by: Philip Rosenbaum M.D. us Marco Antonio Reynoso HEEL SCORER IMG XR PROCEDURES Final Re sult documented in this encounter Visit Diagnoses Diagnosis Closed displaced fracture of fifth metatarsal bone of right foot, initial encounter- Primary Closed displaced fracture of fifth metatarsal bone of right foot, initial encounter documented in this encounter Care Teams Garbage Man Relationship Specialty Start Date End Date Lorie Vanessa NP [address] [place] [id number] PCP - General Family Practice 05/29/22 No, Physician 06/08/21 documented as of this encounter
--- OUTSIDE RECORDS SUMMARY | 2024-06-06 00:29 | XMS_ITS | Encounter Summary ---
Author Organization [facility] Healthcare Address [address] [place] [address] Care Team Providers Care Automobile Mechanic Assistant Name Role Phone No, Physician Unavailable Lorie Vanessa NP Primary Care Provider [phone] Reason for Visit * Reason Comments PT Progress Note PT Treatment PT Discharge * Consultation (Routine) - Closed Specialty Diagnoses / Procedures Referred By Cyn burnett Referred To Contact Physical Therapy Diagnoses Left lumbar pain Justin Grover NP [address] [place] [address] Phone: tel: fax: [address] [address] Referral ID Status Reason Start Date Expiration Date V isits Requested Visits Authorized [id number] Closed Evaluate and Treat 02/11/2023 03/12/2024 18 Encounter Details Date Type Department Care Team (Late st Contact Info) Description 03/29/2023 5:15 PM CDT Therapy [facility] Physical Therapy [address] [place] [phone] Jodi Gan, PT Left lumbar pain (Primary Dx); Sprain of [...] on file Legal Sex Female 6:55 PM DEFENCE 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 Physical Therapy Discharge Summary 05/16/23 This patient has not returned to therapy since 03/29/2023. This patient is discharged from Physical Therapy. Goals could not be assessed. See previous notes for treatment details. The clinician has reviewed the treatment notes and agrees to discharge. Jodi Gan, PT 03/29/2023 Emily Guerrier 1995 27 y.o. female Bhakti Bryson MSN, MANUFACTURING TEST TECHNICIAN-DC and Justin Grover FAMILY SUPPORT COORDINATOR, PRODUCTION SUPPORT SUPERVISOR [address] [place] [address] Case Adjustor: Sammy Doyle ICD-9-CM ICD-10-CM 1. Left lumbar pain 724.2 M54.50 2. Sprain of ligaments of lumbar spine, initial encounter 847.2 S33.5XXA Past Medical History: Diagnosis Date Anxiety 2018 Asthma 2020 Depression 2018 Dysmenorrhea 2016 GERD (gastroesophageal reflux disease) Infection Constantly sick Irritable bowel syndrome Menstrual problem 2014 Migraines Motion sickness Nausea Polycystic ovary syndrome Postural orthostatic tachycardia syndrome (POTS) Seizures (HCC) History of febrile seizures as an infant/toddler Past Surgical History: Procedure Laterality Date BAND HEMORRHOIDECTOMY COLONOSCOPY ESOPHAGOGASTRODUODENOSCOPY Number of PT Visits: 11 Reporting Period: 02/19/23 to 03/29/2023 Start Time: 1709 End Time: 1747 Updated measurements from 03/29/2023 in bolded text Subjective: History of Present Condition -- reviewed 02/12/23 Emily Guerrier reports that 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 She was pulling to her left and felt a sharp pain and a popping sensation in her left low back. She continued to work but she began to experience increasing left sided low back pain along with numbness and tinging around the left heel and inside of her left ankle. She finished her shift and was sent by occupational health to [facility] on 01/21/23. She was instructed by the nurse practitioner to attend PT, avoid bending/lifting/twisting, no lifting greater than 10 pounds, and she was placed on light duty. She received Naproxen and Flexeril. She has a chronic history of low back higher up in my low back but not similar to her current presentation. Updates 02/12/23: patient confirms above history. Reports she was started on a steroid taper for lowback pain on 02/11/23. Initially started PT on 01/24/23 and had two sessions before she broke her foot. She reports I rolled my ankle and fractured the 5th metatarsal at the base. Receiving treatmentfor this as well. Wearing a boot adjunct instructor chemistry, but is allowed to remove with supine exercises. Since her last visit of PT and since fracturing her foot, has tried to do some exercises here and there as able. Recently followed back up with [facility] (02/11/23) and was referred back to PT with another diagnosis. 03/29/2023: Emily Guerrier states that she is able to sit for longer periods of time with less pain. She states that she notices improved forward and side bending with reduced pain. However, she states that her back continues to be painful when she walks increased distances, specifically reporting increased back pain when she walks over 10 minutes continuously. Patient states that 10 minutes isthe longest time period she is able to stand without increased pain. She states that she is able toride in the car for up to 30 minutes but notices increased back pain with riding in the car for anylonger than that. She states that she has not attempted any lifting at this time. Diagnostic Tests No current imaging. X-ray from : Lumbar spine: There are no fractures. There is mild L1-L2 degenerative disc disease. Alignment is normal. Previous Treatment: PT for low back as teenager. Pain 03/29/23 Current pain ratin/10. At best pain ratin/10, which pt states her baseline prior to her injury from a chronic dull low back pain. At worst pain ratin-8/10. Location: Left lower back into left hip. Description: Achy, burning Exacerbating Factors: Prolonged walking, prolonged standing, prolonged driving Relieving Factors: Heat, lots of rest , Flexeril Other Symptoms: Patient states that she continues to notice numbness & tingling in her left lower extremity, but not as much Special Questions: Pt denies bowel and bladder changes,saddle paresthesia, pain provocation with cough/sneeze/Valsalva, unexplained weight loss >= 10 lbs, night pain Function Current Functional Deficits 03/29/23: Currently on light duty. She tolerates everything better in the mornings compared to later in the day. She states she's able to walk about 10 minutes. She's able to stand about 10 minutes. Pt states that she is able to ride in a car for approximately 30 minutes. 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 Required to lift up/pull 100- 200 pounds frequently and occasionally up to 300 pounds. Patient Goal: Symptom free or at least improved. Abuse and Neglect: No concerns noted by patient or therapist. Objective: Outcome Measure: Oswestry Disability Index (RADHA): 46% impaired. Posture: Hinge L4/5 with skin crease, slight right trunk lean, no appreciable trunk shift. Increased anterior pelvic tilt/lumbar lordosis. Increased thoracic kyphosis/cervical lordosis. Depressed anddownwardly slopping bilateral shoulders. Gait: Antalgic gait on left, reduced stance time on left with reduced step length on right, reducedhip extension on left during terminal stance with increased left pelvic rotation. -- ongoing with mildly reduced stance time on right LE with boot Lumbar AROM (% of Full) Flexion 50%* pull on left side Extension 50%* Right Lateral Flexion 100% Left Lateral Flexion 75%*pull on left side Right Rotation 90%*pull on left side Left Rotation 70%* pull on left side *-denotes pain Movement Analysis: Limited to minimal motion noted below L4/5 during standing trunk flexion and extension AROM, guarded motion with all trunk motion especially flexion/extension/left lateral flexion/left rotation. Neurological Tests: Babinski (-), Clonus (-) Reflexes: 2+ throughout bilateral L3-S1 lower extremity reflexes Myotomes Right Left Iliopsoas (L1/2) 5/5 4+/5* Quadriceps (L3) 5/5 5/5 with cogwheel Anterior Tibialis (L4) NT due to right foot fx 5/5 Extensor Hallicus. Longus (L5) NT due to right foot fx 5/5 Gluteus Medius (L5) 4/5 4/5* Peroneals (L5/S1) NT due to right foot fx 4/5 Hamstrings (L5-S2) 5/5 4/5 Gastrocnemius (S1/2) NT due to right foot fx NT/5 Other: Reports of increased pain noted with combined lumbar flexion and sidebending compared to combined flexion and right sidebending and extension left/right sidebending. Not reassessed 02/19/23. Reports of increased left lower extremity numbness/tingling with passive straight leg raise liftingat approximately 40-60 degrees of hip flexion. Not reassessed 02/19/23. Reports of increased left lower extremity numbness/tingling with seated trunk and neck flexion, left knee extension, and left ankle dorsiflexion. Resolution of symptoms with either return to neutral trunk positioning or left ankle plantarflexion. Festus Signs: 0/5 * denotes pain Joint Mobility: Did not complete manual assessment on lumbar spine. Palpation: Increased tenderness to palpation noted L>R L4/5 transverse processes and paraspinal musculature. Hypertonus noted left L3-5 lumbar paraspinals and multifdi. Treatment Provided: Evaluation, therapeutic procedures, neuromuscular reeducation, manual therapy, education, and HEP. Assessment: Therapy Impression: Emily Guerrier presents to physical therapy this date for reassessment. She has completed 4 of 6 additionally prescribed visits at this time. Subjectively, she reports improvedtolerance to prolonged sitting and decreased pain with lumbar forward & side bending. However, she reports continued low back pain with walking and/or standing over 10 minutes. She states that she is unable to ride/drive in the car for over 30 minutes without increase in low back pain and states that she has not yet attempted any lifting tasks. Objectively, she demonstrates continued painful/limited lumbar active ROM, lower extremity strength deficits as demonstrated by myotome assessment, and remaining difficulty with ADLs and mobility tasks per outcome measure scoring. Emily Guerrierhas met 1/3 long wall mining machine tender goals and 2/4 short term goals at this time. STG to be met by 03/13/23 1) Patient will demonstrate normalized roberts left L4 myotomal strength to improve her gait mechanics.- Goal met 2) Patient will demonstrate at least 75% [...] Patient independent with home exercise program -- Goal met/ongoing 2) Patient to improve function on RADHA to 19% or less -- ONGOING 3) Patient will return to completing her occupational demands without limitation due to her currentsubjective complaints.-- ONGOING 4) Patient will drive for at least 20 minutes with no reported low back or left lower extremity radicular complaints.-- goal met Plan: Patient returns to COMPUTER OPERATOR on 04/01/2023. Please advise Jodi Gan, PT Time-Based Code Calculator Minutes for Ther Ex/Ther Procedure (18752):: 38 minutes Timed Code Treatment Minutes:: 38 minutes Total Treatment Time: 38 PT Daily Treatment Note 03/29/2023 Emily Guerrier 1995 ICD-9-CM ICD-10-CM 1. Left lumbar pain 724.2 M54.50 2. Sprain of ligaments of lumbar spine, initial encounter 847.2 S33.5XXA Precautions: None ADJUSTOR: SAMMY DOYLE PHONE NUMBER: [phone] CLAIM #: [id number] DATE OF INJURY: 01/20/2023 History: working on 01/20/23 at [facility] as a staff nurse on the [...] metatarsal at the base. Wearing a boot adjunct instructor chemistry, but is allowed to remove with supine exercises. Followed back up with [facility] (02/11/23) and was referred back to PT [...] therapy 3x/week for 2 weeks. Start Time: 1709 End Time: 1746 Patient ID verified. Subjective: See progress note above Objective: See progress note above Treatment Provided: See flowsheet below Treatments 03/21/23 03/22/23 03/28/23 03/29/23 Visit Number/Visits Ordered 06/01 (New script) 07/02 07/30 08/30 Received new script Posterior Pelvic Tilt Supine Gluteal Sets Hooklying lower trunk rotation Bent Knee Fallouts ANA hip external rotation in hooklying Yellow 2x10, performed ANA (boot & cast donned) Yellow 2x10, performed ANA (boot donned) Yellow 2x10, performed ANA (boot donned) Lower Abdominal Marching 2x10 reps 2x10 reps 2x10 reps 2x10 reps Lower abdominal contraction with alternate UE lift 2x10 reps 2x10 reps 2x10 reps 2x10 reps bugs [...] each, ANA x15 each, ANA Bridging with botswanan ball X9--discontinued due to reports of increased pain Prone alternating hip extension with lower abdominal contraction Seated Nerve Glides Seated TA with alternating LE march, small ROM Seated rows Blue French ball, 2x12, Green theraband Blue French ball, 2x12, Green theraband Blue French ball, 2x12, Green theraband Blue French ball, 2x12, Green theraband Seated latissimus dorsi pull downs Blue French ball, 2x12 Green theraband Blue French ball, 2x12, Green theraband Blue French ball, 2x12, Green theraband Blue French ball, 2x12, Green theraband Pallof press X10 each, ANA, Green theraband 2x12 each, ANA, Green theraband, seated on French ball 2x12 each, ANA, Green theraband, seated on French ball Standing frontal plane leaning Stride stance transverse plane reaching Cold Pack- lumbar Home Exercise Program: 01/24/23: Posterior Pelvic Tilt, (02/12/23 stopped due to foot fracture), Clamshells, Bent Knee Fallouts Assessment: See progress note above Patient Response to Treatment: Patient reports low back pain as 5/10 following treatment session & L hip pain as 6/10 following treatment session. Rehab Prognosis/Potential: good. Patient would benefit from continued skilled Physical Therapy. Goals: STG to be met by 03/13/23 1) Patient will demonstrate normalized roberts left L4 myotomal strength to improve her gait mechanics.- Goal met 2) Patient will demonstrate at least 75% [...] Patient independent with home exercise program -- Goal met/ongoing 2) Patient to improve function on RADHA to 19% or less -- ONGOING 3) Patient will return to completing her occupational demands without limitation due to her currentsubjective complaints.-- ONGOING 4) Patient will drive for at least 20 minutes with no reported low back or left lower extremity radicular complaints.-- goal met Plan: Patient returns to COMPUTER OPERATOR on 04/01/2023. Please advise Jodi Gan PT Time Calculator Time-Based Code Calculator Minutes for Ther Ex/Ther Procedure (85145):: 38 minutes Timed Code Treatment Minutes:: 38 minutes Total Treatment Time: 38 NCE FORCE SENIOR OFFICER NCE FORCE SENIOR OFFICER documented in this encounter Plan of Treatment Not on file documented as of this encounter Visit Diagnoses Diagnosis Left lumbar pain- Primary Lumbago Sprain of ligaments of lumbar spine, initial encounter documented in this encounter Care Teams Automobile Mechanic Assistant Relationship Specialty Start Date End Date Lorie Vanessa NP [address] [place] [phone] PCP - General Family Practice 05/29/22 No, Physician 06/08/21 documented as of this encounter
--- OUTSIDE RECORDS SUMMARY | 2024-06-06 00:29 | XMS_ITS | Encounter Summary ---
Author Organization [facility] Healthcare Address [address] [place] [address] Care Team Providers Care Forensic Structural Engineer Name Role Phone No, Physician Unavailable Lorie Vanessa NP Primary Care Provider [phone] Encounter Details Date Type Department Care Team (Late st Contact Info) Description 04/08/2023 Patient Self-Triage [facility] HealthCare/ Physicians [address] [place] [address] Mychart, Generic Provider [address] [place] [address] Social History Tobacco Use Types Packs/Day [...] on file Legal Sex Female 6:55 PM SERVICER Gender Identity Female 06/06/2022 7:40 AM SERVICER Sexual Orientation Not on file documented as of this encounter Plan of Treatment Not on file documented as of this encounter Visit Diagnoses Not on filedocumented in this encounter Care Teams Forensic Structural Engineer Relationship Specialty Start Date End Date Lorie Vanessa NP [address] [place] [address] PCP - General Family Practice 05/29/22 No, Physician 06/08/21 documented as of this encounter
--- OUTSIDE RECORDS SUMMARY | 2024-06-06 00:29 | XMS_ITS | Encounter Summary ---
Author Organization [facility] Healthcare Address [address] [place] [address] Care Team Providers Care Sales Assistant Institutional Sales Name Role Phone No, Physician Unavailable Lorie Vanessa NP Primary Care Provider [phone] Reason for Visit * Diagnostic Imaging (Routine) - Closed Specialty Diagnoses / Procedures Referred By Cyn burnett Referred To Contact Diagnoses Nausea Procedures NM Gastric Emptying Cj Thomas MD [address] [place] [address] Phone: tel: fax: [address] [phone] Referral ID Status Reason Start Date Expiration Date Visits Re quested Visits Authorized [id number] Closed 03/07/2023 04/05/2024 5 5 Encounter Details Date Type Department Care Team (Latest Contact Info) Description 03/19/2023 10:19 AM CDT - 03/19/2023 11:59 PM CDT Hospital Encounter [facility] Nuclear Medicine [address] [place] [id number] Discharge Disposition: Discharge to home or self [...] on file Legal Sex Female 6:55 PM FISH ROE 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 NM GASTRIC EMPTYING STUDY REASON FOR STUDY: ?? Nausea vomiting, symptoms for 1 year. RADIOPHARMACEUTICAL: 1 ??uCi Tc-99m sulfur colloid incorporated into ??eggs ??p.o. TECHNIQUE: After oral ingestion of the radiolabeled meal, sequential anterior and posterior abdominal images were obtained. COMPARISON: ?? None. FINDINGS: At 60 minutes, the residual activity is ??91% ??(normal: 30-90%). At 120 minutes, the residual activity is ??64% ??(normal: less than 60%). At 180 minutes, the residual activity is ??20% ??(normal: less than 30%). At 240 minutes, the residual activity is ??3% ??(normal: less than 10%). T1/2 emptying time is 140 minutes. IMPRESSION: Abnormal delayed gastric emptying at 60 and 120 minutes. THIS IS AN ELECTRONICALLY VERIFIED FINAL REPORT 03/19/2023 3:08 PM - Electronically signed by ??Zaheer Berry M.D. D: ??03/19/2023 3:08 PM T: Report ID: [id number] Reading Location: ??[id number] Procedure Note Zaheer Berry Jr., MD - 03/19/2023 EXAM DESCRIPTION: NM GASTRIC EMPTYING STUDY REASON FOR STUDY: Nausea vomiting, symptoms for 1 year. RADIOPHARMACEUTICAL: 1 uCi Tc-99m sulfur colloid incorporated into eggsp.o. TECHNIQUE: After oral ingestion of the radiolabeled meal, sequentialanterior and posterior abdominal images were obtained. COMPARISON: None. FINDINGS: At 60 minutes, the residual activity is 91% (normal:30-90%). At 120 minutes, the residual activity is 64% (normal: less than 60%). At 180 minutes, the residual activity is 20% (normal: less than 30%). At 240 minutes, the residual activity is 3% (normal: less than 10%). T1/2 emptying time is 140 minutes. IMPRESSION: Abnormal delayed gastric emptying at 60 and 120 minutes. THIS IS AN ELECTRONICALLY VERIFIED FINAL REPORT 03/19/2023 3:08 PM - Electronically signed by Zaheer Berry M.D. T: Report ID: [id number] Reading Location: [place] [address] Cj William SALVADOR [facility] PROCED[facility] Final Result documented in this encounter Visit Diagnoses Not on filedocumented in this encounter Care Teams Sales Assistant Institutional Sales Relationship Specialty Start Date End Date Lorie Vanessa NP [address] [place] [phone] PCP - General Family Practice 05/29/22 No, Physician 06/08/21 documented as of this encounter
--- OUTSIDE RECORDS SUMMARY | 2024-06-06 00:29 | XMS_ITS | Encounter Summary ---
Author Organization [facility] Healthcare Address [address] [place] [address] Care Team Providers Care Satellite Installer Name Role Phone No, Physician Unavailable Lorie Vanessa NP Primary Care Provider [phone] Reason for Visit * Diagnostic Imaging (Routine) - Closed Specialty Diagnoses / Procedures Referred By Cyn burnett Referred To Contact Diagnoses Nausea Procedures NM Gastric Emptying Cj Thomas MD [address] [place] [address] Phone: tel: fax: [address] [phone] Referral ID Status Reason Start Date Expiration Date Visits Re quested Visits Authorized [id number] Closed 03/07/2023 04/05/2024 5 5 Encounter Details Date Type Department Care Team (Latest Contact Info) Description 03/19/2023 10:18 AM CDT - 03/19/2023 11:59 PM CDT Hospital Encounter [facility] Nuclear Medicine [address] [place] [address] Discharge Disposition: Discharge to home or [...] on file Legal Sex Female 6:55 PM 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 T: Report ID: [id number] Reading Location: [place] [address] Cj William SALVADOR [facility] PROC[facility] Final Result documented in this encounter Visit Diagnoses Not on filedocumented in this encounter Care Teams Satellite Installer Relationship Specialty Start Date End Date Lorie Vanessa NP [address] [place] [phone] PCP - General Family Practice 05/29/22 No, Physician 06/08/21 documented as of this encounter
--- OUTSIDE RECORDS SUMMARY | 2024-06-06 00:29 | XMS_ITS | Encounter Summary ---
Author Organization [facility] Healthcare Address [address] [place] [address] Care Team Providers Care Low Pressure Kettle Operator Name Role Phone No, Physician Unavailable Lorie Vanessa NP Primary Care Provider [phone] Reason for Visit * Diagnostic Imaging (Routine) - Closed Specialty Diagnoses / Procedures Referred By Cyn burnett Referred To Contact Diagnoses Nausea Procedures NM Gastric Emptying Cj Thomas MD [address] [place] [address] Phone: tel: fax: [address] [phone] Referral ID Status Reason Start Date Expiration Date Visits Re quested Visits Authorized [id number] Closed 03/07/2023 04/05/2024 5 5 Encounter Details Date Type Department Care Team (Latest Contact Info) Description 03/19/2023 10:19 AM CDT - 03/19/2023 11:59 PM CDT Hospital Encounter [facility] Nuclear Medicine [address] [place] [address] Discharge Disposition: Discharge to home or [...] on file Legal Sex Female 6:55 PM PIERCER Gender Identity Female 06/06/2022 7:40 AM PIERCER Sexual Orientation Not on file documented as [...] D: ??03/19/2023 3:08 PM T: Report ID: [id number] Reading Location: ??[id number] Procedure Note Zaheer Berry Jr., MD - [...] by Zaheer Berry M.D. T: Report ID: [id number] Reading Location: [place] [address] Cj William SALVADOR [facility] Final Result documented in this encounter Visit Diagnoses Not on filedocumented in this encounter Care Teams Low Pressure Kettle Operator Relationship Specialty Start Date End Date Lorie Vanessa NP [address] [place] [address] PCP - General Family Practice 05/29/22 No, Physician 06/08/21 documented as of this encounter
--- OUTSIDE RECORDS SUMMARY | 2024-06-06 00:29 | XMS_ITS | Encounter Summary ---
Author Organization [facility] Healthcare Address [address] [place] [address] Care Team Providers Care Skiff Operator Name Role Phone No, Physician Unavailable Lorie Vanessa NP Primary Care Provider [phone] Reason for Visit * Reason Comments PT Treatment * Consultation (Routine) - Closed Specialty Diagnoses / Procedures Referred By Cyn burnett Referred To Contact Physical Therapy Diagnoses Left lumbar pain Justin Grover NP [address] [place] [address] Phone: tel: fax: [address] [phone] Referral ID Status Reason Start Date Expiration Date V isits Requested Visits Authorized [id number] Closed Evaluate and Treat 02/11/2023 03/12/2024 18 18 Encounter Details Date Type Department Care Team (Late st Contact Info) Description 03/21/2023 4:30 PM CDT Therapy [facility] Physical Therapy [address] [place] [phone] Jodi Gan, GRACIELA Left lumbar pain [...] on file Legal Sex Female 6:55 PM BRASS BOBBIN WINDER Gender Identity Female 06/06/2022 7:40 AM BRASS BOBBIN WINDER Sexual Orientation Not on file documented as of this encounter Progress Notes * Jodi Gan, PT - 03/21/2023 4:30 PM CDT Images from the original note were not included. Physical Therapy Visit PT Daily Treatment Note 03/21/2023 Emily Guerrier 1995 ICD-9-CM ICD-10-CM 1. Left lumbar pain 724.2 M54.50 2. 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 Wearing a boot multimedia instructional designer, but is allowed to remove with supine exercises. Followed back up with [facility] (02/11/23) and was referred back to PT [...] therapy 3x/week for 2 weeks. Start Time: 8 End Time: 1707 Patient ID verified. Subjective: Emily Guerrier states that she followed up with her doctor 2 days ago and was instructed to continue physical therapy for 2 more weeks. She states that she did a little more today, and I can tell. I'm feeling in in my back today. Pain: 10/03 Objective: Treatment Provided: See flowsheet below Treatments 02/14/23 02/15/23 02/18/23 02/19/23 03/21/23 Visit Number/Visits Ordered 09/01 10/01 11/01 12/01 06/01 (New script) Progress Note Received new script -- Posterior Pelvic Tilt -- Supine Gluteal Sets Hooklying lower trunk rotation X30 ANA X30 ANA. -- Bent Knee Fallouts -- ANA hip external rotation in hooklying Yellow 2x10 Yellow 2x10 Reps Performed Unilaterally Yellow. 2x10 left. Yellow 2x10, performed ANA (boot & cast donned) Lower Abdominal Marching 2x10 ANA 2x10 ANA. 2x10 reps 2x10 reps 2x10 reps Lower abdominal contraction with alternate UE lift 2x10 ANA 2x10 ANA. 2x10 reps 2x10 reps 2x10 reps Lower abdominal contraction with ANA shoulder extension in supine (latissimus pull down) Yellow 2x10 Yellow 2x10 reps -- Clamshells Yellow x10 ANA Yellow 2x10 Reps Bilateral Yellow 2x10 Reps Bilateral Hips flexed & hips neutral, 2x12 each ANA, Yellow Side lying hip abduction X10 each, ANA Bridging with bahamian ball 2x10 2x10. Wincing and grimacing end of second set. -- Prone alternating hip extension with lower abdominal contraction 2x10 ANA X10 ANA. -- Seated Nerve Glides L 10 ankle pumps x5 sets, R slumping with knee flexion & erect with knee extension to glide nerve 2x10 -- Seated TA with alternating LE march, small ROM 2x10 ANA. Seated rows Blue Dutch ball, 2x12, Green theraband Seated latissimus dorsi pull downs Blue Dutch ball, 2x12 Green theraband Standing frontal plane leaning To left x30 -- Stride stance transverse plane reaching R foot in front, R hand reaching to back of left side of chair -- Cold Pack- lumbar 10 min post exercise in supine 10 min post exercise in hook- lying. Added additionpillow case barrier at 5 minutes. 5min Post Exercise Hooklying Home Exercise Program: 01/24/23: Posterior Pelvic Tilt, (02/12/23 stopped due to foot fracture), Clamshells, Bent Knee Fallouts Assessment: Emily Guerrier reports increased discomfort in hip with clamshells that is reduced following verbal cueing for positioning modification. Patient requires verbal cueing with side lying hip abduction to maintain knee extension but demonstrates poor gluteus medius strength with side lying hip strengthening exercises this visit. Patient requires moderate verbal cueing with seated core stability drills on Dutch ball this visit for correct biomechanics and avoidance of compensatory strategies. She will benefit from further progression of core stability drills as tolerated in future visits. Patient Response to Treatment: Patient tolerates treatment well this visit, reporting no exacerbation of symptoms following session's completion. Rehab Prognosis/Potential: good. Patient would benefit from [...] left lower extremity radicular complaints.-- ONGOING Plan: Further progression of core and pelvic girdle stability drills. Jodi Gan PT Time Calculator Time-Based Code Calculator Minutes for Ther Ex/Ther Procedure (52037):: 30 minutes Minutes for Neuro Re-Ed (96689): : 10 minutes Timed Code Treatment Minutes:: 40 minutes Total Treatment Time: 40 documented in this encounter Plan of Treatment Not on file documented as of this encounter Visit Diagnoses Diagnosis Left lumbar pain- Primary Lumbago Sprain of ligaments of lumbar spine, initial encounter documented in this encounter Care Teams Skiff Operator Relationship Specialty Start Date End Date Lorie Vanessa NP [address] [place] [address] PCP - General Family Practice 05/29/22 No, Physician 06/08/21 documented as of this encounter
--- OUTSIDE RECORDS SUMMARY | 2024-06-06 00:29 | XMS_ITS | Encounter Summary ---
Author Organization [facility] Healthcare Address [address] [place] [address] Care Team Providers Care Computer Systems Integrator Name Role Phone No, Physician Unavailable Lorie Vanessa NP Primary Care Provider [phone] Reason for Visit * Reason Comments Diarrhea Entered automaticall y based on patient selection in [employer]. Encounter Details Date Type Department Care Team (Late st Contact Info) Description 04/08/2023 4:[address] FOREMAN E-Visit [facility] Virtual Care [address] [place] [phone] Emily Clay MD [address] [place] [address] DR MURRELL [address] [place] [phone] E-Visit for Diarrhea Social History Tobacco Use [...] on file Legal Sex Female 6:[address] FOREMAN Gender Identity Female 06/06/2022 7:[address] FOREMAN Sexual Orientation Not on file documented as of this encounter Miscellaneous Notes * E-Visit Note - Emily Clay MD - 04/08/2023 4:37 PM CST Emily Guerrier 04/08/2023 E-Visit Submission Subjective/Objective: Emily Guerrier contacted the office today via e-visit for Diarrhea. C/o diarrhea that started yesterday. States she's had 1-4 stools in the last 24 hours. C/o low grade fever (<101 F) and lower belly pain. States her urine is dark colored. Doesn't think symptoms are clearly related to a meal. States her stool does contain pus or mucus and is vomiting occasionally. Denies recent hospitalization or abx. States Recently found (04/06) via CT scan that I have epiploic appendigitis. Severe pain. Had 3 episodes of liquid stool yesterday during the day (04/07) and have yet to have any other BMs. I have had decreased gas passing today as well. Pain has started radiating from my left lower abdomen to my back as well as generalized abdominal pain. I didn't know ifthese were common symptoms of this appendigitis or if it warrants a follow-up ER visit. The patient-submitted questionnaire was assessed for pertinent information and the patient's problem list, medication list, and allergies were reviewed as part of the e-visit. The chart was updated to identify any changes in these areas. Assessment: Diagnosis Plan 1. Diarrhea of presumed infectious origin 2. Nausea and vomiting, unspecified vomiting type Plan: Sx could be due to gastroenteritis vs epiploic appendagitis. Pt already has Zofran for nausea/vomiting. If sx persist or worsen, f/u with PCP, UC or ED. The patient was given information regarding any new medication(s) prescribed, if applicable, as well as any isuo-air-qaahdim remedies. She was given instructions regarding follow up and timeframe if symptoms worsen or don???t improve. These instructions were included in the [employer] message reply tothe patient. Patient Instructions were included in the message reply to patient. My total encounter time on 04/08/2023 was 5 minutes which was spent in the activities documented inthe note. Emily Clay MD TENANCE OF WAY FOREMAN documented in this encounter Plan of Treatment Not on file documented as of this encounter Visit Diagnoses Diagnosis Diarrhea of presumed infectious origin- Primary Nausea and vomiting, unspecified vomiting type documented in this encounter Care Teams Computer Systems Integrator Relationship Specialty Start Date End Date Lorie Vanessa NP [address] [place] [address] PCP - General Family Practice 05/29/22 No, Physician 06/08/21 documented as of this encounter
--- OUTSIDE RECORDS SUMMARY | 2024-06-06 00:29 | XMS_ITS | Encounter Summary ---
Author Organization [facility] Healthcare Address [address] [place] [address] Care Team Providers Care Rn Procedures Name Role Phone No, Physician Unavailable Lorie Vanessa NP Primary Care Provider [phone] Reason for Visit * Diagnostic Imaging (Routine) - Closed Specialty Diagnoses / Procedures Referred By Cyn burnett Referred To Contact Diagnoses Nausea Procedures NM Gastric Emptying Cj Thomas MD [address] [place] [address] Phone: tel: fax: [address] [phone] Referral ID Status Reason Start Date Expiration Date Visits Re quested Visits Authorized [id number] Closed 03/07/2023 04/05/2024 5 5 Encounter Details Date Type Department Care Team (Latest Contact Info) Description 03/19/2023 10:19 AM CDT - 03/19/2023 11:59 PM CDT Hospital Encounter [facility] Nuclear Medicine [address] [place] [id number] Discharge Disposition: Discharge to home or [...] on file Legal Sex Female 6:55 PM FIELD MARKETING REPRESENTATIVE Gender Identity Female 06/06/2022 7:40 AM FIELD MARKETING REPRESENTATIVE Sexual Orientation Not on file documented as [...] D: ??03/19/2023 3:08 PM T: Report ID: [id number] Reading Location: ??[id number] Procedure Note Zaheer Berry Jr., MD - [...] by Zaheer Berry M.D. T: Report ID: [id number] Reading Location: [place] [address] [address] William [facility] PROCEDURES Final Result documented in this encounter Visit Diagnoses Not on filedocumented in this encounter Care Teams Rn Procedures Relationship Specialty Start Date End Date Lorie Vanessa NP [address] [place] [address] PCP - General Family Practice 05/29/22 No, Physician 06/08/21 documented as of this encounter
--- OUTSIDE RECORDS SUMMARY | 2024-06-06 00:29 | XMS_ITS | Encounter Summary ---
Author Organization [facility] Healthcare Address [address] [place] [address] Care Team Providers Care Acoustical Installer Name Role Phone No, Physician Unavailable Lorie Vanessa NP Primary Care Provider [phone] Reason for Visit * Reason Comments PT Treatment * Consultation (Routine) - Closed Specialty Diagnoses / Procedures Referred By Cyn burnett Referred To Contact Physical Therapy Diagnoses Left lumbar pain Justin Grover NP [address] [place] [address] Phone: tel: fax: [address] [phone] Referral ID Status Reason Start Date Expiration Date V isits Requested Visits Authorized [id number] Closed Evaluate and Treat 02/11/2023 03/12/2024 18 Encounter Details Date Type Department Care Team (Late st Contact Info) Description 03/22/2023 11:00 AM CDT Therapy [facility] Physical Therapy [address] [place] [phone] Jodi Gan, GRACIELA Left lumbar pain [...] file Legal Sex Female 6:55 PM MEDICAL RECORD CONSULTANT Gender Identity Female 06/06/2022 7:40 AM MEDICAL RECORD CONSULTANT Sexual Orientation Not on file documented as of this encounter Progress Notes * Jodi Gan, PT - 03/22/2023 11:00 AM CDT Images from the original note were not included. Physical Therapy Visit PT Daily Treatment Note 03/22/2023 Emily Guerrier 1995 ICD-9-CM ICD-10-CM 1. Left lumbar pain 724.2 M54.50 2. 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 Wearing a boot night time babysitter, but is allowed to remove with supine exercises. Followed back up with [facility] (02/11/23) and was referred back to PT [...] therapy 3x/week for 2 weeks. Start Time: 1107 End Time: 1146 Patient ID verified. Subjective: Emily Guerrier states that she felt ok following her treatment session yesterday. She states that she felt it this morning, but I think it is more from the patient I was with yesterday. Pain: 10/03 Objective: Treatment Provided: See flowsheet below Treatments 02/15/23 02/18/23 02/19/23 03/21/23 03/22/23 Visit Number/Visits Ordered 10/01 11/01 12/01 06/01 (New script) 07/02 Progress Note Received new script -- Posterior Pelvic Tilt -- Supine Gluteal Sets Hooklying lower trunk rotation X30 ANA. -- Bent Knee Fallouts -- ANA hip external rotation in hooklying Yellow 2x10 Reps Performed Unilaterally Yellow. 2x10 left. Yellow 2x10, performed ANA (boot & cast donned) Lower Abdominal Marching 2x10 ANA. 2x10 reps 2x10 reps 2x10 reps 2x10 reps Lower abdominal contraction with alternate UE lift 2x10 ANA. 2x10 reps 2x10 reps 2x10 reps 2x10 reps bugs UEs only, x1--discontinued due to reports of increased pain Lower abdominal contraction with ANA shoulder extension in supine (latissimus pull down) Yellow 2x10 reps -- Clamshells Yellow 2x10 Reps Bilateral Yellow 2x10 Reps Bilateral Hips flexed & hips neutral, 2x12 each ANA, Yellow Hips flexed & hips neutral, 2x12 each ANA, Yellow Side lying hip abduction X10 each, ANA 2x12 each, ANA Bridging with scottish ball 2x10. Wincing and grimacing end of second set. -- Prone alternating hip extension with lower abdominal contraction X10 ANA. -- Seated Nerve Glides -- Seated TA with alternating LE march, small ROM 2x10 ANA. Seated rows Blue Mozambican ball, 2x12, Green theraband Blue Mozambican ball, 2x12, Green theraband Seated latissimus dorsi pull downs Blue Mozambican ball, 2x12 Green theraband Blue Mozambican ball, 2x12, Green theraband Pallof press X10 each, ANA, Green theraband Standing frontal plane leaning -- Stride stance transverse plane reaching -- Cold Pack- lumbar 10 min post exercise in hook-lying. Added addition pillow case barrier at 5 minutes. 5min Post Exercise Hooklying Home Exercise Program: 01/24/23: Posterior Pelvic Tilt, (02/12/23 stopped due to foot fracture), Clamshells, Bent Knee Fallouts Assessment: Emily Guerrier is limited in progression of supine core stability drills this visit secondary to reports of increased low back pain with attempts at modified bugs. She requires moderate verbal cueing with side lying hip abduction in order to avoid rolling posteriorly on table with performance. She reports increased pain following performance of side lying hip abduction on left lower extremity, rating pain as 6/10. Patient is able to progress standing theraband core stabilitydrills this visit with moderate verbal cueing for maintaining midline control with theraband. Patient Response to Treatment: Patient reports low [...] progression of core and pelvic girdle stability drills as tolerated. Jodi Gan PT Time Calculator Time-Based Code Calculator Minutes for Ther Ex/Ther Procedure (53047):: 31 minutes Minutes for Neuro Re-Ed (02855): : 8 minutes Timed Code Treatment Minutes:: 39 minutes Total Treatment Time: 39 documented in this encounter Plan of Treatment Not on file documented as of this encounter Visit Diagnoses Diagnosis Left lumbar pain- Primary Lumbago Sprain of ligaments of lumbar spine, initial encounter documented in this encounter Care Teams Acoustical Installer Relationship Specialty Start Date End Date Lorie Vanessa NP [address] [place] [address] PCP - General Family Practice 05/29/22 Mel, Physician 06/08/21 documented as of this encounter
--- OUTSIDE RECORDS SUMMARY | 2024-06-06 00:30 | XMS_ITS | Encounter Summary ---
Author Organization [facility] Address [address] [place] [address] Phone Care Team Providers Care Nickel Operator Name Role Phone No, Physician Unavailable Loire Vanessa NP Primary Care Provider Reason for Visit * Reason Comments Cast Problem Encounter Details Date Type Department Care Team (Late st Contact Info) Description 03/08/2023 2:30 PM CDT Office Visit [facility] Orthopaedic Surgery [address] [facility] 2[address] [place] [phone] [place] [address] [place] [address] Closed displaced fracture of fifth metatarsal bone [...] on file Legal Sex Female 6:55 PM STAFF PSYCHOLOGIST Gender Identity Female 06/06/2022 7:40 AM STAFF PSYCHOLOGIST Sexual Orientation Not on file documented as of this encounter Progress Notes * Marco Antonio Reynoso, WASH DRILLER HELPER - 03/08/2023 2:30 PM CDT RETURN PATIENT VISIT INTERIM HISTORY The patient is here for an unscheduled visit today. She has a fifth metatarsal base fracture. She is in a cast. Her cast got loose. She had an injury January 26 when she twisted the foot. She was seen in the orthopedic injury clinic on February 04 and put into a boot. She was continued to have quite a bit of pain and was put into a cast on March 06. PHYSICAL EXAMINATION On physical exam the cast was removed in the office today. Skin exam reveals no rashes, lesions or ulcers. Sensation is intact to light touch. She still has tenderness to palpation at the base of theright fifth metatarsal. Mild swelling. No redness or bruising. REVIEW OF X-RAYS/STUDIES No new radiographs were obtained today. IMPRESSION/DIAGNOSIS Right fifth metatarsal base fracture TREATMENT/PLAN We discussed treatment options in the office today. She will go back into a new short-leg fiberglass cast. She can weightbear as she feels comfortable. If she has pain with weight-bearing I recommendusing a scooter or crutches. She will keep her scheduled follow-up appointment. She is agreeable with the plan. All of her questions were answered today. FOLLOW UP As scheduled for cast off and new weight-bearing films of the right foot I was in collaboration with Dr. Walter today. Marco Antonio Reynoso, RN,BSN, MSN, BOILERMAKER FITTER, ARCHERY EQUIPMENT HAY SORTER-C, in collaborative practice with Dr. George Elizondo and Dr. Dionisio Walter Nurse Practitioner, Foot and Ankle Service [facility] Orthopedics. This is TONY Thomas dictating using [employer] Software Program. Yarding Supervisor variances may occur. * Young Leonardo - 03/08/2023 2:30 PM CDTAssociated Order(s): Ortho Casting/Splinting Documentation Post-Procedure Diagnose(s): Closed displaced fracture of fifth metatarsal bone of right foot, initial encounter Ortho Casting/Splinting Documentation Date/Time: 03/08/2023 3:40 PM Performed by: Young Leonardo Authorized by: Marco Antonio Reynoso NP Sensation: Normal Skin Condition: Clean, dry, and intact [place]/Sutures Removed: No Pin Pulled: No Cast Removed: Yes Cast Applied: Yes Location: Foot Foot: R foot Cast type: Short leg weightbearing cast Supplies: Fiberglass Additional Supplies: Cotton padding, cotton stocking/sleeve, felt tibia pads, felt malleolar pads, gauze and weightbearing strip Number of fiberglass rolls used: 5 Capillary Refill: Normal Patient tolerance of procedure: Tolerated well, no immediate complications documented in this encounter Plan of Treatment Not on file documented as of this encounter Procedures Procedure Name Priority Date/Time Associated Diagnosis Comments UT CAST SUP SHRT LEG FIBERGLASS Routine 03/08/2023 3:40 PM CDT Closed displaced fracture of fifth metatarsal bone of right foot, initial encounter UT APPLICATION SHORT LEG CAST WALKING/AMBULATORY Routine 03/08/2023 3:40 PM CDT Closed displaced fracture of fifth metatarsal bone of right foot, initial encounter documented in this encounter Results * UT APPLICATION SHORT LEG CAST WALKING/AMBULATORY, UT CAST SUP SHRT LEG FIBERGLASS (03/08/2023 3:40 PM CDT) Narrative Young Leonardo - 03/08/2023 3:40 PM CDT Young Leonardo ? 03/08/2023 ??3:41 PM Ortho Casting/Splinting Documentation Date/Time: 03/08/2023 3:40 PM Performed by: Young Leonardo Authorized by: Marco Antonio Reynoso NP ?? Sensation: ??Normal Skin Condition: ??Clean, dry, and intact [place]/Sutures Removed: No ?? Pin Pulled: No ?? Cast Removed: Yes ?? Cast Applied: Yes ?? Location: ??Foot Foot: ??R foot Cast type: ??Short leg weightbearing cast Supplies: ??Fiberglass Additional Supplies: ??Cotton padding, cotton stocking/sleeve, felt tibia pads, felt malleolar pads, gauze and weightbearing strip Number of fiberglass rolls used: ??5 Capillary Refill: ??Normal Patient tolerance of procedure: ??Tolerated well, no immediate complications us Marco Antonio Reynoso NP IN CLINIC/BEDSIDE ORDERABL ES Final Result documented in this encounter Visit Diagnoses Diagnosis Closed displaced fracture of fifth metatarsal bone of right foot, initial encounter- Primary documented in this encounter Care Teams Nickel Operator Relationship Specialty Start Date End Date Lorie Vanessa NP [address] [place] [address] PCP - General Family Practice 05/29/22 No, Physician 06/08/21 documented as of this encounter
--- OUTSIDE RECORDS SUMMARY | 2024-06-06 00:30 | XMS_ITS | Encounter Summary ---
Author Organization [facility] Address [address] [place] [address] Phone Care Team Providers Care Chief Of Hospital Medicine Name Role Phone No, Physician Unavailable Lorie Vanessa NP Primary Care Provider [phone] Reason for Referral * Procedure (Routine) - Closed Specialty Diagnoses / Procedures Referred By Cyn burnett Referred To Contact Pulmonology Diagnoses Chronic cough Procedures Pulmonary Function Test -[facility] Adult PFT Lab- [facility]; Spirometry with Bronchodilator, Lung Volumes; Pleth with Airway Resistance Jackson Dodd MD PhD [address] [place] [address] [address] [place] [address] Phone: tel: fax: Referral ID Status Reason Start Date Expiration Date Visits Re quested Visits Authorized [id number] Closed 03/04/2023 04/02/2024 1 1 Reason for Visit * Procedure (Routine) - Closed Specialty Diagnoses / Procedures Referred By Contac t Referred To Contact Pulmonology Diagnoses Chronic cough Procedures Pulmonary Function Test -[facility] Adult PFT Lab- [facility]; Spirometry with Bronchodilator, Lung Volumes; Pleth with Airway Resistance Jackson Dodd MD PhD [address] [facility] [address] [place] [address] Phone: tel: fax: Referral ID Status Reason Start Date Expiration Date Visits Re quested Visits Authorized [id number] Closed 03/04/2023 04/02/2024 1 1 Encounter Details Date Type Department Care Team (Late st Contact Info) Description 03/08/2023 12:28 PM CDT Hospital Encounter [facility] PFT Lab 10 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 Gender Identity Female 06/06/2022 7:40 AM CANAL EQUIPMENT MECHANIC Sexual Orientation Not on file documented as of this encounter Plan of Treatment Not on file documented as of this encounter Procedures Procedure Name Priority Date/Time Associated Diagnosis Comments PULMONARY FUNCTION TEST (PFT) Routine 03/08/2023 1:04 PM CDT Chronic cough documented in this encounter Results * Pulmonary Function Test - (03/08/2023 1:04 PM CDT) FVC PRE 4.25 L [facility] FVC %PRE PRED 111 % [facility] FVC POST 3.93 L [facility] FVC %POST PRED 103 % [facility] FEV1 PRE 3.34 L [facility] FEV1 %PRE PRED 101 % [facility] FEV1 POST 3.17 L [facility] FEV1 %POST PRED 96 % [facility] FEV1/FVC PRE 78.6 % [facility] FEV1/FVC POST 80.7 % [facility] FRC PL PRE 1.96 L [facility] FRC PL %PRE PRED 71 % [facility] RV PRE 1.27 L [facility] RV %PRE PRED 98 % [facility] TLC PRE 5.57 L [facility] TLC %PRE PRED 110 % [facility] DLCO PRE 26.8 ml/min/mmH g [facility] DLCO %PRE PRED 120 % [facility] Anatomical Region Laterality Modality PFT 03/08/2023 12:3 1 PM CDT Impressions 03/08/2023 1:12 PM CDT There is no ventilatory defect. There is no impairment of alveolar gas exchange by DLCO. The attending pulmonary physician certifies a physician presence in the [facility] during the administration of aerosolized bronchodilator. The attending pulmonary physician certifies that he/she has reviewed and interpreted the graphic and numerical data of this pulmonary function study and agrees with the written final report. The lower limit of normal for PO2 and %HbO2 is age dependent. However, the [facility] Pulmonary Function Laboratory defines hypoxemia as a PO2 <55 or a %HbO2 <89. Narrative 03/08/2023 1:12 PM CDT PFT performed at:->[facility] Adult PFT Lab- [facility] Procedure:->Spirometry with Bronchodilator Procedure:->Lung Volumes Lung Volumes via:->Pleth with Airway Resistance Pulmonary Function Test Interpretation SPIROMETRY: Spirometry is within normal limits. There is no significant improvement after inhaling a single nebulized dose of albuterol. FLOW VOLUME LOOPS: The inspiratory loop is normal. LUNG VOLUMES: TLC measured by plethysmography is normal. Overweight status may be the cause of the decreased ERV. ?? DIFFUSING CAPACITY: The diffusing capacity is increased. An increased diffusing capacity may be due to left ventricular failure, asthma, or obesity. us Jackson Elliott MD PhD PFT ORDERABLES Fin al Result documented in this encounter Visit Diagnoses Diagnosis Chronic cough Cough documented in this encounter Additional Health Concerns Infection Onset Date Last Indicated Resolved Time COVID: Suspected 05/29/2023 05/29/2023 05/29/2023 5:07 PM CANAL EQUIPMENT MECHANIC COVID: Suspected 07/05/2023 07/05/2023 07/05/2023 8:07 PM CANAL EQUIPMENT MECHANIC C. difficile suspected 03/05/2024 03/05/202403/05 5:29 PM CDT documented as of this encounter Care Teams Chief Of Hospital Medicine Relationship Specialty Start Date End Date Lorie Vanessa NP [address] [place] [address] PCP - General Family Practice 05/29/22 No, Physician 06/08/21 documented as of this encounter
--- OUTSIDE RECORDS SUMMARY | 2024-06-06 00:30 | XMS_ITS | Encounter Summary ---
Author Organization [facility] Address [address] [place] [address] Phone Care Team Providers Care Broiler Supervisor Name Role Phone No, Physician Unavailable Lorie Vanessa NP Primary Care Provider Encounter Details Date Type Department Care Team (Late st Contact Info) Description 03/01/2023 Orders Only [facility] Allergy and Immunology [address] [facility] [address] [place] [address] Candida Isabel, RN Social History Tobacco Use Types Packs/Day Years Used Date Smoking Tobacco: Never Smokeless Tobacco: Never AUDIT-C Answer Date Recorded Q1: How often [...] on file Legal Sex Female 6:55 PM LINING 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 [facility] or [facility], Sent her pt portal message back. documented in this encounter Plan of Treatment Not on file documented as of this encounter Visit Diagnoses Not on filedocumented in this encounter Care Teams Broiler Supervisor Relationship Specialty Start Date End Date Lorie Vanessa NP [address] [place] [address] PCP - General Family Practice 05/29/22 No, Physician 06/08/21 documented as of this encounter
--- OUTSIDE RECORDS SUMMARY | 2024-06-06 00:30 | XMS_ITS | Encounter Summary ---
Author Organization [facility] Healthcare Address [address] [place] [address] Care Team Providers Care Wood Heel Attacher Name Role Phone No, Physician Unavailable Lorie Vanessa NP Primary Care Provider [phone] Reason for Referral * Diagnostic Imaging (Routine) - Closed Specialty Diagnoses / Procedures Referred By Cyn burnett Referred To Contact Diagnoses Nausea Procedures NM Gastric Emptying Cj Thomas MD [address] [place] [address] DR MURRELL [address] [place] [address] Phone: tel: fax: [address] [phone] Referral ID Status Reason Start Date Expiration Date Visits Re quested Visits Authorized [id number] Closed 03/07/2023 04/05/2024 5 5 Reason for Visit * Diagnostic Imaging (Routine) - Closed Specialty Diagnoses / Procedures Referred By Cyn burnett Referred To Contact Diagnoses Nausea Procedures NM Gastric Emptying Cj Thomas MD [address] [place] [address] DR MURRELL [address] [place] [address] Phone: tel: fax: [address] [phone] Referral ID Status Reason Start Date Expiration Date Visits Re quested Visits Authorized [id number] Closed 03/07/2023 04/05/2024 5 5 Encounter Details Date Type Department Care Team (Latest Contact Info) Description 03/19/2023 10:17 AM CDT - 03/19/2023 11:59 PM CDT Hospital Encounter [facility] Nuclear Medicine [address] [place] [address] Nausea Discharge Disposition: Discharge to home or self [...] on file Legal Sex Female 6:55 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 No answer. Left message and asked patient to call our office to discuss test results. * Result Encounter Note - Dahiana Campa CMA - 03/19/2023 11:59 PM CDT The patient was notified of the doctor's finding. The patient will call back schedule an appointment to discuss the testing in its entirety. documented in this encounter Plan of Treatment [...] PM - Electronically signed by ??Zaheer Berry M.D., CH D: ??03/19/2023 3:08 PM T: Report ID: [id number] Reading Location: ??[id number] Procedure Note Zaheer Berry Jr., MD - [...] by Zaheer Berry M.D. T: Report ID: [id number] Reading Location: [id number] Cj William [facility] IMG NM PROCEDURES Final Result documented in this encounter Visit Diagnoses Diagnosis Nausea Nausea alone documented in this encounter Administered Medications Inactive Administered Medications - up to 3 most recent administrations Medication Order MAR Action Action Date Dose Rate Site tc-99m sulfur colloid egg 1 millicurie 1 millicurie, oral, Once in imaging, radiopharmaceutical, Starting on Sat03/19/23 at 1037, For 1 dose Given 03/19/2023 10:37 AM CDT 1 millicurie documented in this encounter Orders Medications Ordered That Baldomero ht Not Have Been Administered Count Last Ordered Date First Ordered Date tc-99m sulfur colloid egg 1 millicurie 1 documented in this encounter Care Teams Wood Heel Attacher Relationship Specialty Start Date End Date Lorie Vanessa NP [address] [place] [address] PCP - General Family Practice 05/29/22 No, Physician 06/08/21 documented as of this encounter
--- OUTSIDE RECORDS SUMMARY | 2024-06-06 00:30 | XMS_ITS | Encounter Summary ---
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 ??Unchanged mildly displaced right 5th metatarsal base fracture. Electronically signed by: Cindy Josue MD Narrative 03/06/2023 8:50 AM CDT EXAMINATION: XR FOOT RIGHT 3 OR MORE VIEWS HISTORY: ??Fracture. FINDINGS: 3 weightbearing views of the right foot are reviewed with comparison to 02/15/2023. There is an unchanged mildly displaced 5th metatarsal base zone 1 fracture. ??There is unchanged resorption at the fracture line without significant callus formation. ??No new fracture identified. 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 Small Achilles enthesophyte. Procedure Note Cindy Josue MD - 03/06/2023 EXAMINATION: XR FOOT RIGHT 3 OR MORE VIEWS HISTORY: Fracture. FINDINGS: 3 weightbearing views of the right foot are reviewed with comparison to 02/15/2023. There is an unchanged mildly displaced 5th metatarsal base zone 1 fracture. There is unchanged resorption at the fracture line without significant callus formation. No new fracture identified. 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 Small Achilles enthesophyte. IMPRESSION: 1. Unchanged mildly displaced right 5th metatarsal base fracture. Electronically signed by: Cindy Josue MD Marco Antonio Reynoso REED POLISHER IMG XR PROCEDURES Final Re sult documented in this encounter Visit Diagnoses Diagnosis Closed displaced fracture of fifth metatarsal bone of right foot, initial encounter documented in this encounter Care Teams Content Writer Relationship Specialty Start Date End Date Lorie Vanessa NP [address] [place] [address] PCP - General Family Practice 05/29/22 No, Physician 06/08/21 documented as of this encounter
--- OUTSIDE RECORDS SUMMARY | 2024-06-06 00:30 | XMS_ITS | Encounter Summary ---
Author Organization [facility] Healthcare Address [address] [place] [address] Care Team Providers Care Nut Processing Supervisor Name Role Phone No, Physician Unavailable Lorie Vanessa NP Primary Care Provider Reason for Visit * Diagnostic Imaging (Routine) - Closed Specialty Diagnoses / Procedures Referred By Cyn burnett Referred To Contact Diagnoses Nausea Procedures NM Gastric Emptying Cj Thomas MD [address] [place] [address] Phone: tel: fax: [address] [phone] Referral ID Status Reason Start Date Expiration Date Visits Re quested Visits Authorized [id number] Closed 03/07/2023 04/05/2024 5 5 Encounter Details Date Type Department Care Team (Latest Contact Info) Description 03/19/2023 10:18 AM CDT - 03/19/2023 11:59 PM CDT Hospital Encounter [facility] Nuclear Medicine [address] [place] [address] Discharge Disposition: Discharge to home or [...] on file Legal Sex Female 6:55 PM 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 T: Report ID: [id number] Reading Location: [place] [address] Cj William [facility] PROCEDURES Final Result documented in this encounter Visit Diagnoses Not on filedocumented in this encounter Care Teams Nut Processing Supervisor Relationship Specialty Start Date End Date Lorie Vanessa NP [address] [place] [address] PCP - General Family Practice 05/29/22 No, Physician 06/08/21 documented as of this encounter
--- OUTSIDE RECORDS SUMMARY | 2024-06-06 00:30 | XMS_ITS | Encounter Summary ---
Author Organization [facility] Address [address] [place] [address] Phone Care Team Providers Care Social Science Teacher Name Role Phone No, Physician Unavailable Lorie Vanessa NP Primary Care Provider [phone] Reason for Visit * Reason Comments Pain Encounter Details Date Type Department Care Team (Late st Contact Info) Description 03/06/2023 8:45 AM CDT Office Visit [facility] Orthopaedic Surgery [address] [facility] Medical Office Building [address] [place] [address] [place] [address] [place] [address] Closed displaced fracture of fifth metatarsal bone of right foot, initial encounter (Primary Dx) Social History Tobacco Use Types Packs/Day Years Used Date Smoking Tobacco: Passive Smo ke Exposure - Never Smoker Cigarettes Smokeless Tobacco: Never Tobacco Cessation:Counseling Given: Not [...] file Legal Sex Female 6:55 PM MANAGER 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 She would an injury on January 26 when she was walking and twisted the foot. She was seen in the orthopedic injury clinic on February 04. She is been in a boot. She is still having quite a bit of pain. Sheis been taking Tylenol. She has difficulty with anti-inflammatories. Weightbearing makes it worse. Rest make it better. She is not a diabetic. PAST MEDICAL HISTORY She Past Medical History: Diagnosis Date Anxiety 2018 Asthma 2019 Depression 2018 Dysmenorrhea 2016 GERD (gastroesophageal reflux disease) Infection Constantly sick Irritable bowel syndrome Menstrual problem 2014 Migraines Motion sickness Nausea Polycystic ovary syndrome Postural orthostatic tachycardia syndrome (POTS) Seizures (HCC) History of febrile seizures as an /toddler PAST SURGICAL HISTORY She Past Surgical History: Procedure Laterality Date BAND HEMORRHOIDECTOMY COLONOSCOPY ESOPHAGOGASTRODUODENOSCOPY INITIAL REVIEW OF MEDICATIONS She has a current medication list which includes the following prescription(s): cetirizine, cholecalciferol, clonazepam, cromolyn, famotidine, fluconazole, lamotrigine, magnesium oxide, norethindrone, ondansetron odt, pantoprazole dr, propranolol la, sertraline, sucralfate, and triamcinolone. DRUG ALLERGIES She is allergic to adhesive, fluoxetine, and nitrofurantoin. SOCIAL HISTORY She Social History Tobacco Use Smoking status: Passive [...] or 2 Frequency of Binge Drinking: Never FAMILY HISTORY Her Family History Problem Relation Age of Onset [...] Mother's Sister Depression Sister Drug abuse Sister REVIEW OF SYSTEMS Please see Orthopedic Patient Questionnaire reviewed by me today. PHYSICAL EXAMINATION On physical exam she is 5 ft 4 in and weighs 324 lb. She is alert and oriented x3. Respirations arenormal. Hearing is intact to the spoken word. Skin exam reveals no rashes, lesions or ulcers. Sensation is intact to light touch. DP and PT pulses are 2+. She has intact dorsiflexion, plantar flexion, inversion and eversion. Ankle strength is 5 out of 5. She has tenderness to palpation at the base of the right fifth metatarsal. Mild swelling. No redness or bruising. She does have some tenderness on the plantar aspect of the foot. No tenderness or swelling through the medial aspect or lateral aspect of her ankle. No tenderness at the insertion or midsubstance of her Achilles tendon. REVIEW OF X-RAYS/STUDIES I have ordered right foot x-ray and personally reviewed the images. My independent interpretation is unchanged mildly displaced right fifth metatarsal base fracture. IMPRESSION/DIAGNOSIS Right fifth metatarsal base fracture clinically still painful TREATMENT/PLAN We discussed treatment options in the office today. I recommend a cast. She is been in a boot and still having pain. A short-leg weight-bearing fiberglass cast was applied. She can weightbear she feels comfortable but did discuss if she has pain with weight-bearing to use a scooter. She should still elevate. We will do the cast for 3 weeks and check her back at that time for cast off and new weigh t-bearing films of the right foot. She is agreeable to plan. All her questions were answered today. I was in collaboration with Dr. Walter today. Marco Antonio Reynoso, RN,BSN, MSN, QUARANTINE INSPECTOR, FIRE CONTROL TECHNICIAN G-C, in collaborative practice with Dr. George Elizondo and Dr. Dionisio Walter Nurse Practitioner, Foot and Ankle Service [facility] Orthopedics. This is TONY Thomas dictating using Adaptive Digital [employer] Direct Software Program. Phlebotomy Coordinator variances may occur. Cosigned by Dionisio Walter MD at 03/08/2023 12:21 AM CDT * Varun Saunders - 03/06/2023 8:45 AM CDTAssociated Order(s): Ortho Casting/Splinting Documentation Post-Procedure Diagnose(s): Closed displaced fracture of fifth metatarsal bone of right foot, initial encounter Ortho Casting/Splinting Documentation Date/Time: 03/06/2023 9:56 AM Performed by: Varun Saunders Authorized by: Marco Antonio Reynoso NP Sensation: Normal Skin Condition: Clean, dry, and intact [place]/Sutures Removed: No Pin Pulled: No Cast Removed: No Cast Applied: Yes Overwrap: No Location: Foot Foot: R foot Cast type: Short leg weightbearing cast Supplies: Fiberglass Additional Supplies: Cotton padding, cotton stocking/sleeve, felt malleolar pads, felt padding, felt tibia pads and weightbearing strip Number of fiberglass rolls used: 6 Capillary Refill: Normal Patient tolerance of procedure: Tolerated well, no immediate complications Applied a cast shoe documented in this encounter Plan of Treatment Not on file documented as of this encounter Procedures Procedure Name Priority Date/Time Associated Diagnosis Comments MS CAST SUP SHRT LEG FIBERGLASS Routine 03/06/2023 9:56 AM CDT Closed displaced fracture of fifth metatarsal bone of right foot, initial encounter MS APPLICATION SHORT LEG CAST WALKING/AMBULATORY Routine 03/06/2023 9:56 AM CDT Closed displaced fracture of fifth metatarsal bone of right foot, initial encounter documented in this encounter Results * MS APPLICATION SHORT LEG CAST WALKING/AMBULATORY, MS CAST SUP SHRT LEG FIBERGLASS (03/06/2023 9:56 AM CDT) Narrative Varun Saunders - 03/06/2023 9:56 AM CDT Varun Saunders ? 03/06/2023 ??9:57 AM Ortho Casting/Splinting Documentation Date/Time: 03/06/2023 9:56 AM Performed by: Varun Saunders Authorized by: Marco Antonio Reynoso, GUEST EXPERIENCE SPECIALIST ?? Sensation: ??Normal Skin Condition: ??Clean, dry, and intact [place]/Sutures Removed: No ?? Pin Pulled: No ?? Cast Removed: No ?? Cast Applied: Yes ?? Overwrap: No ?? Location: ??Foot Foot: ??R foot Cast type: ??Short leg weightbearing cast Supplies: ??Fiberglass Additional Supplies: ??Cotton padding, cotton stocking/sleeve, felt malleolar pads, felt padding, felt tibia pads and weightbearing strip Number of fiberglass rolls used: ??6 Capillary Refill: ??Normal Patient tolerance of procedure: ??Tolerated well, no immediate complications Applied a cast shoe us Marco Antonio Reynoso NP IN CLINIC/BEDSIDE [...] by: Cindy Josue MD Marco Antonio Reynoso GUEST EXPERIENCE SPECIALIST IMG XR PROCEDURES Final Re sult documented in this encounter Visit Diagnoses Diagnosis Closed displaced fracture of fifth metatarsal bone of right foot, initial encounter- Primary Closed displaced fracture of fifth metatarsal bone of right foot, initial encounter documented in this encounter Care Teams Social Science Teacher Relationship Specialty Start Date End Date Lorie Vanessa NP [address] [place] [address] PCP - General Family Practice 05/29/22 No, Physician 06/08/21 documented as of this encounter
--- OUTSIDE RECORDS SUMMARY | 2024-06-06 00:30 | XMS_ITS | Encounter Summary ---
Author Organization [facility] Address [address] [place] [address] Phone Care Team Providers Care Deputy Probation Officer Name Role Phone No, Physician Unavailable Lorie Vanessa NP Primary Care Provider [phone] Reason for Referral * Procedure (Routine) - Closed Specialty Diagnoses / Procedures Referred By Cyn t Referred To Contact Pulmonology Diagnoses Chronic cough Procedures Pulmonary Function Test -[facility]FT [facility]- [facility]; Spirometry with Bronchodilator, Lung Volumes; Pleth with Airway Resistance Jackson Dodd MD PhD [address] [place] [address] [address] [place] [address] Phone: tel: fax: Referral ID Status Reason Start Date Expiration Date Visits Re quested Visits Authorized [id number] Closed 03/04/2023 04/02/2024 1 1 Encounter Details Date Type Department Care Team (Late st Contact Info) Description 03/04/2023 Orders Only [facility] Allergy and Immunology [address] [place] [id number] Jackson Dodd MD PhD [address] [place] [address] Chronic cough (Primary Dx) Social History Tobacco Use Types [...] on file 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 Gender Identity Female 06/06/2022 7:40 AM ALARM SIGNAL OPERATOR Sexual Orientation Not on file documented as of this encounter Progress Notes * Mary Anne Willis RN - 03/04/2023 10:53 AM CDT Pt requested WC location documented in this encounter Plan of Treatment Not on file documented as of this encounter Results * Pulmonary Function Test - (03/08/2023 1:04 PM CDT) FVC PRE 4.25 L [facility] FVC %PRE PRED 111 % [facility] FVC POST 3.93 L [facility] FVC %POST PRED 103 % [facility] FEV1 PRE 3.34 L [facility] FEV1 %PRE PRED 101 % [facility] FEV1 POST 3.17 L [facility] FEV1 %POST PRED 96 % [facility] FEV1/FVC PRE 78.6 % [facility] FEV1/FVC POST 80.7 % [facility] FRC PL PRE 1.96 L [facility] FRC PL %PRE PRED 71 % [facility] RV PRE 1.27 L [facility] RV %PRE PRED 98 % [facility] TLC PRE 5.57 L [facility] TLC %PRE PRED 110 % [facility] DLCO PRE 26.8 ml/min/mmH g [facility] DLCO %PRE PRED 120 % [facility] Anatomical Region Laterality Modality PFT 03/08/2023 12:3 [...] and %HbO2 is age dependent. However, the [facility] Pulmonary Function Laboratory defines hypoxemia as a PO2 <55 or a %HbO2 <89. Narrative 03/08/2023 1:12 PM CDT PFT performed at:->[facility] Adult PFT Lab- [facility] Procedure:->Spirometry with Bronchodilator Procedure:->Lung Volumes Lung Volumes [...] to left ventricular failure, asthma, or obesity. Jackson Elliott MD PhD PFT ORDERABLES Fin al Result documented in this encounter Visit Diagnoses Diagnosis Chronic cough- Primary Cough Chronic cough Cough documented in this encounter Care Teams Deputy Probation Officer Relationship Specialty Start Date End Date Lorie Vanessa NP [address] [place] [address] PCP - General Family Practice 05/29/22 No, Physician 06/08/21 documented as of this encounter
--- OUTSIDE RECORDS SUMMARY | 2024-06-06 00:30 | XMS_ITS | Encounter Summary ---
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
--- OUTSIDE RECORDS SUMMARY | 2024-06-06 00:30 | XMS_ITS | Encounter Summary ---
Author Organization [facility] Address [address] [place] [address] Care Team Providers Care Teacher Vocal Name Role Phone No, Physician Unavailable Lorie Vanessa NP Primary Care Provider [phone] Reason for Referral * MRI/CAT/PET Scan (Routine) - Closed Specialty Diagnoses / Procedures Referred By Contac t Referred To Contact Radiology Diagnoses Sprain of ligaments of lumbar spine, initial encounter Procedures MRI Lumbar Spine WO Contrast Justin Grover NP [address] [place] [address] Phone: tel: fax: [facility] [address] [place] [address] Referral ID Status Reason Start Date Expiration Date Visits Re quested Visits Authorized [id number] Closed 1 1 Reason for Visit * MRI/CAT/PET Scan (Routine) - Closed Specialty Diagnoses / Procedures Referred By Contac t Referred To Contact Radiology Diagnoses Sprain of ligaments of lumbar spine, initial encounter Procedures MRI Lumbar Spine WO Contrast Justin Grover NP [address] [place] [address] Phone: tel: fax: [address] [phone] Referral ID Status Reason Start Date Expiration Date Visits Re quested Visits Authorized [id number] Closed 1 1 Encounter Details Date Type Department Care Team (Latest Contact Info) Description 03/04/2023 3:18 PM CDT - 03/04/2023 11:59 PM CDT Hospital Encounter [facility] - Imaging [address] [place] [address] Sprain of ligaments of lumbar spine, initial encounter Discharge Disposition: Discharge to home [...] file 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 Gender Identity Female 06/06/2022 7:40 AM SENIOR RESEARCH PROJECT MANAGER Sexual Orientation Not on file documented [...] Name Priority Date/Time Associated Diagnosis Comments MRI LUMBAR SPINE WO CONTRAST Schedule Routine, Read Routine (OP Routine) 03/04/2023 4:20 PM CDT Sprain of ligaments of lumbar spine, initial encounter documented in this encounter Results * MRI Lumbar Spine WO Contrast (03/04/2023 4:20 PM CDT) Anatomical Region Laterality Modality Spine N/A Magnetic Resonan ce 03/05/2023 11:5 1 AM CDT Impressions 03/05/2023 11:51 AM CDT Mild degenerative disc disease at L1-L2 without high-grade spinal canal or foraminal stenoses. No visualized ligamentous injury. Electronically signed by: Garrett Burch MD Narrative 03/05/2023 11:51 AM CDT EXAMINATION: Magnetic resonance imaging (MRI) of the lumbar spine without contrast HISTORY: Sprain of ligaments. TECHNIQUE: Multiplanar multi-weighted MRI of the lumbar spine was performed without intravenous contrast using the standard lumbar spine protocol. COMPARISON: None available. FINDINGS: The alignment of the lumbar spine is normal. No aggressive marrow replacing osseous lesions or processes are visualized. There are no compression fractures. Intervertebral disks have normal height and signal intensity. The conus medullaris terminates at the level of L1-L2. The distal spinal cord signal intensity is normal. Limited views of the abdomen and pelvis show no soft tissue abnormality. No substantial MR evidence of ligamentous injury. L1-2: The disk is normal in configuration. No significant ligamentum flavum infolding. There is no facet arthropathy. There is no neuroforaminal stenosis. There is no spinal canal stenosis. L2-3: Mild disc bulge. No significant ligamentum flavum infolding. There is no facet arthropathy. There is no neuroforaminal stenosis. There is no spinal canal stenosis. L3-4: The disk is normal in configuration. No significant ligamentum flavum infolding. There is no facet arthropathy. There is no neuroforaminal stenosis. There is no spinal canal stenosis. L4-5: The disk is normal in configuration. No significant ligamentum flavum infolding. There is no facet arthropathy. There is no neuroforaminal stenosis. There is no spinal canal stenosis. L5-S1: The disk is normal in configuration. No significant ligamentum flavum infolding. There is no facet arthropathy. There is no neuroforaminal stenosis. There is no spinal canal stenosis. Procedure Note BurchGarrett MD - 03/05/2023 EXAMINATION: Magnetic resonance imaging (MRI) of the lumbar spine without contrast HISTORY: Sprain of ligaments. TECHNIQUE: Multiplanar multi-weighted MRI of the lumbar spine was performed without intravenous contrast using the standard lumbar spine protocol. COMPARISON: None available. FINDINGS: The alignment of the lumbar spine is normal. No aggressive marrow replacing osseous lesions or processes are visualized. There are no compression fractures. Intervertebral disks have normal height and signal intensity. The conus medullaris terminates at the level of L1-L2. The distal spinal cord signal intensity is normal. Limited views of the abdomen and pelvis show no soft tissue abnormality. No substantial MR evidence of ligamentous injury. L1-2: The disk is normal in configuration. No significant ligamentum flavum infolding. There is no facet arthropathy. There is no neuroforaminal stenosis. There is no spinal canal stenosis. L2-3: Mild disc bulge. No significant ligamentum flavum infolding. There is no facet arthropathy. There is no neuroforaminal stenosis. There is no spinal canal stenosis. L3-4: The disk is normal in configuration. No significant ligamentum flavum infolding. There is no facet arthropathy. There is no neuroforaminal stenosis. There is no spinal canal stenosis. L4-5: The disk is normal in configuration. No significant ligamentum flavum infolding. There is no facet arthropathy. There is no neuroforaminal stenosis. There is no spinal canal stenosis. L5-S1: The disk is normal in configuration. No significant ligamentum flavum infolding. There is no facet arthropathy. There is no neuroforaminal stenosis. There is no spinal canal stenosis. IMPRESSION: Mild degenerative disc disease at L1-L2 without high-grade spinal canal or foraminal stenoses. No visualized ligamentous injury. Electronically signed by: Garrett Burch MD Justin Grover NP IMG MRI PROCEDURES Final Result documented in this encounter Visit Diagnoses Diagnosis Sprain of ligaments of lumbar spine, initial encounter documented in this encounter Care Teams Teacher Vocal Relationship Specialty Start Date End Date Lorie Vanessa NP [address] [place] [address] PCP - General Family Practice 05/29/22 No, Physician 06/08/21 documented as of this encounter
--- OUTSIDE RECORDS SUMMARY | 2024-06-06 00:30 | XMS_ITS | Encounter Summary ---
Author Organization [facility] Address [address] [place] [address] Care Team Providers Care Weight Control Engineer Name Role Phone No, Physician Unavailable Lorie Vanessa NP Primary Care Provider [phone] Reason for Referral * Diagnostic Imaging (Routine) - Closed Specialty Diagnoses / Procedures Referred By Cyn burnett Referred To Contact Diagnoses Nausea Procedures NM Gastric Emptying Cj Thomas MD [address] [place] [address] DR MURRELL [address] [place] [address] Phone: tel: fax: [address] [address] Referral ID Status Reason Start Date Expiration Date Visits Re quested Visits Authorized [id number] Closed 03/07/2023 04/05/2024 5 5 Encounter Details Date Type Department Care Team (Late st Contact Info) Description 03/07/2023 Orders Only [facility] Gastroenterology at [address] [place] [phone] Cj Thomas MD [address] [place] [address] DR MURRELL [address] [place] [address] Nausea (Primary Dx) Social History Tobacco Use [...] on file 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 T: Report ID: [id number] Reading Location: [id number] Cj Thomas MD [facility] PROCEDURES Final Result documented in this encounter Visit Diagnoses Diagnosis Nausea- Primary Nausea alone Nausea Nausea alone documented in this encounter Care Teams Weight Control Engineer Relationship Specialty Start Date End Date Lorie Vanessa NP [address] [place] [address] PCP - General Family Practice 05/29/22 No, Physician 06/08/21 documented as of this encounter
--- OUTSIDE RECORDS SUMMARY | 2024-06-06 00:30 | XMS_ITS | Encounter Summary ---
Author Organization [facility] Healthcare Address [address] [place] [address] Care Team Providers Care [place] Laborer Name Role Phone No, Physician Unavailable Lorie Vanessa NP Primary Care Provider [phone] Reason for Visit * Reason Comments Abdominal Pain Vomiting Encounter Details Date Type Department Care Team (Late st Contact Info) Description 02/26/2023 9:50 PM CDT - 02/27/2023 1:54 AM CDT Emergency [facility] Emergency Department [address] [place] [address] Abdominal pain (Primary Dx); Nausea and vomiting, unspecified vomiting type Discharge Disposition: Discharge to home or self [...] on file 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 Gender Identity Female 06/06/2022 7:40 AM 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 Sexual Orientation Not on file documented as of this encounter Last Filed Vital Signs Vital Sign Reading Time Taken Comments Blood Pressure 115/75 02/27/2023 1:27 AM CDT Pulse 76 02/27/2023 1:27 AM CDT Temperature 36.8 ??C (98.2 ??F) 02/26/2023 9:09 PM CD T Respiratory Rate 21 02/27/2023 1:27 AM CDT Oxygen Saturation 99% 02/27/2023 1:27 AM CDT Inhaled Oxygen Concentration - - Weight 147 kg (324 lb 1.2 oz) 02/26/2023 9:09 PM CDT Height - - Body Mass Index 55.6 01/30/2023 9:54 AM CDT documented in this encounter Discharge Instructions * Discharge Instructions* Lakisha Mathis PA - 02/27/2023 1:50 AM CDT You were treated with IV fluids and nausea medication today in the ER. Follow clear liquid diet forthe remainder of the day today. Take Zofran as needed for nausea. Follow-up with the primary care doctor in the office in the next 3 days. Please call your GI doctor tomorrow to schedule an appointment. Return if worse. Please advance diet slowly. Continue your Zofran at home and Pepcid at home. Follow-up as recommended is mandatory. You have received emergency care only at your visit today. This is not a substitute for ongoing care, further evaluation and treatment and therefore follow-up as directed is not optional but mandatory You MUST follow up for further evaluation of all incidental abnormal radiographic and laboratory findings, Have your physician obtain records from this visit and address all the incidental abnormal findings. This may include final results of lab testing, cultures, final x-ray reports which may not have been available during the time of the visit. Return immediately for any new symptoms, worsening of symptoms, or persistent symptoms * Attachments The following attachments cannot be sent through Care Everywhere. * Abdominal Pain (AfterCare(R) Instructions(ER/ED)) ([place]) documented in this encounter Medications at Time [...] if symptoms persist 16.9 mL 11 09/04/2022 amoxicillin (AMOXIL) 500 mg tablet/capsuleIndic ations:Prophylaxis, Medical Take 1 tablet/capsule (500 mg total) by mouth 2 (two) times a day 60 tablet/capsul e 2 12/03/2022 3 cromolyn (GASTROCROM) 100 mg/5 mL solutionIndications :systemic [...] documented in this encounter ED Notes * Lakisha Mathis PA - 02/26/2023 10:58 PM CDT CHIEF COMPLAINT: Chief Complaint Patient presents with ??? Abdominal Pain ??? Vomiting HPI 2:04 AM Emily Guerrier is a 27 y.o. female history of GERD, irritable bowel syndrome, migraines,PCOS, pots presenting to the ED c/o abdominal pain and nausea x5 days. She has been vomiting since Saturday with abdominal pain. She is unable to keep food down but is tolerating clear liquids. Reportshaving scopes done in December for similar symptoms. EGDs found that she had gastritis but no sign ofH pylori or any ulcerations. Endorses fatigue and dizziness. Patient reports she is had previous episodes like this in the past but they have been unable to figure out the cause. Patient reports she did not eat any unusual foods, take any unusual medications. Denies chest pain, shortness of breath, recent sick contacts, headache. Pmhx of IBS with diarrhea and constipation. Patient's bowel movements have been at baseline for her. No blood in his stool. PCOS. Denies hx of diabetes, stomach ulcers, or gastroparesis. Denies hx of abdominal surgeries. Sx were previously well treated with ibuprofenand protonix. Did take Zofran today prior to arrival. Patient has this is home medication. History provided by patient. PCP: Lorie Vanessa NP PAST MEDICAL HISTORY Past Medical History: Diagnosis Date ??? GERD (gastroesophageal reflux disease) ??? Irritable bowel syndrome ??? Migraines ??? Motion sickness ??? Nausea ??? Polycystic ovary syndrome ??? Postural orthostatic tachycardia syndrome (POTS) PAST SURGICAL HISTORY Past Surgical History: Procedure Laterality Date ??? BAND HEMORRHOIDECTOMY ??? COLONOSCOPY ??? ESOPHAGOGASTRODUODENOSCOPY FAMILY HISTORY Family History Problem Relation Age of Onset ??? Hypertension Mother ??? COPD Mother ??? Squamous cell carcinoma Father ??? Heart failure Brother ??? Diabetes Maternal Grandmother Family history of diabetes mellitus - (Added by TW Conv) ??? Mental illness Maternal Grandmother Family history of mental disorder - (Added by TW Conv) MEDICATIONS GIVEN IN THE ED Medications ioversoL (OPTIRAY 350) syringe 100 mL (100 mL intravenous Contrast Given 02/26/23 2244) sodium chloride 0.9% bolus 1,000 mL (0 mL intravenous Stopped 02/27/23 0000) dicyclomine (BENTYL) tablet 20 mg (20 mg oral Given 02/26/23 2301) metoclopramide (REGLAN) 5 mg/mL injection 10 mg (10 mg intravenous Given 02/26/23 2318) famotidine (PEPCID) injection 20 mg (20 mg intravenous Given 02/27/23 0020) HYDROmorphone (DILAUDID) injection 0.5 mg (0.5 mg intravenous Given 02/27/23 0021) prochlorperazine (COMPAZINE) injection 5 mg (5 mg intravenous Given 10/4/23 0113) CURRENT HOME MEDICATIONS No current facility-administered medications for this encounter. Current Outpatient Medications: ??? amoxicillin (AMOXIL) 500 mg tablet/capsule, Take 1 tablet/capsule (500 mg total) by mouth 2 (two) times a day, Disp: 60 tablet/capsule, Rfl: 2 ??? cetirizine (ZyrTEC) 10 mg chewable tablet, Take 4 tablets (40 mg total) by mouth daily Up to 40daily PRN, Disp: , Rfl: ??? cholecalciferol 25 mcg (1,000 unit) tablet, Take 1 tablet (1,000 Units total) by mouth daily, Disp: , Rfl: ??? clonazePAM (KlonoPIN) 0.5 mg tablet, Take 1 tablet (0.5 mg total) by mouth daily as needed, Disp: , Rfl: ??? cromolyn (GASTROCROM) 100 mg/5 mL solution, Take 10 mL (200 mg total) by mouth 4 (four) times aday before meals and nightly, Disp: 1200 mL, Rfl: 11 ??? famotidine (PEPCID) 40 mg tablet, TAKE 1 TABLET(40 MG) BY MOUTH EVERY NIGHT NEEDED FOR HEARTBURN, Disp: 30 tablet, Rfl: 3 ??? fluconazole (DIFLUCAN) 150 mg tablet, Take 1 tab every other day for 3 doses if yeast infectionstarts, then weekly after to prevent recurrence (Patient not taking: Reported on 01/30/2023), Disp: 15 tablet, Rfl: 0 ??? lamoTRIgine (LaMICtal) 100 mg tablet, Take 1.5 tablets (150 mg total) by mouth daily 1/2 in AM and 1 in PM, Disp: , Rfl: ??? magnesium oxide (MAG-OX) 400 mg (241.3 mg elemental magnesium) tablet, TAKE 1 TABLET(400 MG) BYMOUTH DAILY, Disp: 90 tablet, Rfl: 1 ??? norethindrone (MICRONOR) 0.35 mg tablet, Take 1 tablet (0.35 mg total) by mouth daily, Disp: 28tablet, Rfl: 1 ??? ondansetron ODT (ZOFRAN-ODT) 8 mg disintegrating tablet, DISSOLVE 1 TABLET(8 MG) ON THE TONGUE EVERY 8 HOURS NEEDED FOR NAUSEA OR VOMITING, Disp: 30 tablet, Rfl: 1 ??? pantoprazole DR (PROTONIX) 40 mg EC tablet, Take 1 tablet (40 mg total) by mouth 2 (two) times a day, Disp: 180 tablet, Rfl: 1 ??? propranolol LA (INDERAL LA) 60 mg 24 hr capsule, Take 1 capsule (60 mg total) by mouth daily, Disp: 30 capsule, Rfl: 11 ??? sertraline (ZOLOFT) 100 mg tablet, Take 2 tablets (200 mg total) by mouth nightly, Disp: , Rfl: ??? sucralfate (CARAFATE) 1 gram tablet, Take 1 tablet (1 g total) by mouth 4 (four) times a day Take 1 hour before meals and at bedtime, Disp: 120 tablet, Rfl: 3 ??? triamcinolone (NASACORT) 55 mcg nasal inhaler, Administer 2 sprays into each nostril daily Can increase to twice daily if symptoms persist, Disp: 16.9 mL, Rfl: 11 ALLERGIES Allergies Allergen Reactions ??? Adhesive Itching and Rash ??? Fluoxetine Mental status changes ??? Nitrofurantoin Itching SOCIAL HISTORY Social History Tobacco Use ??? Smoking status: Never ??? Smokeless tobacco: Never Substance and Sexual Activity ??? Drug use: Not on file ??? Sexual activity: Not on file Alcohol Use: Not At Risk (01/09/2023) AUDIT-C ??? Frequency of Alcohol Consumption: Monthly or less ??? Average Number of Drinks: 1 or 2 ??? Frequency of Binge Drinking: Never PHYSICAL EXAM TRIAGE VITAL SIGNS: ED Triage Vitals Temp Pulse Resp BP SpO2 02/26/23210802/26/23210802/26/23210802/26/23210802/26/232108 36.8 ??C (98.2 ??F) 93 20 124/68 100 % Temp src Heart Rate Source Patient Position BP Location FiO2 (%) 02/26/232108 -- 02/26/232219 -- -- Oral Reclining Height Height Method Weight Weight Method -- -- 02/26/23210802/26/232108 (!) 147 kg (324 lb 1.2 oz) Standing scale Physical Exam Vitals and nursing note reviewed. Constitutional: General: She is not in acute distress. Appearance: Normal appearance. She is well-developed. She is obese. She is not ill-appearing, toxic-appearing or diaphoretic. HENT: Head: Normocephalic and atraumatic. Nose: Nose normal. Mouth/Throat: Mouth: Mucous membranes are moist. Pharynx: Oropharynx is clear. Eyes: Extraocular Movements: Extraocular movements intact. Conjunctiva/sclera: Conjunctivae normal. Pupils: Pupils are equal, round, and reactive to light. Cardiovascular: Rate and Rhythm: Normal rate and regular rhythm. Heart sounds: Normal heart sounds. No murmur heard. No friction rub. No gallop. Pulmonary: Effort: Pulmonary effort is normal. No respiratory distress. Breath sounds: Normal breath sounds. No stridor. No wheezing, rhonchi or rales. Abdominal: General: Abdomen is flat. Bowel sounds are normal. Palpations: Abdomen is soft. There is no mass. Tenderness: There is generalized abdominal tenderness. There is no guarding or rebound. Negative signs include Myrick's sign, Rovsing's sign and McBurney's sign. Hernia: No hernia is present. Musculoskeletal: General: Normal range of motion. Cervical back: Normal range of motion and neck supple. Skin: General: Skin is warm and dry. Neurological: General: No focal deficit present. Mental Status: She is alert and oriented to person, place, and time. Mental status is at baseline. Psychiatric: Mood and Affect: Mood normal. Behavior: Behavior normal. LABS Labs Reviewed URINALYSIS AND REFLEX TO MICROSCOPIC AND CULTURE - Abnormal Result Value Color, ur Yellow Clarity, ur Cloudy (*) Specific gravity, ur 1.023 pH, urine 5.0 Protein, ur ql Negative Glucose, ur ql Negative Ketones, ur Negative Bilirubin, ur Negative Blood, ur 1+ (*) Urobilinogen, ur <2.0 Nitrite, ur Negative Leukocyte esterase, ur Negative UA reflex comment Reflex to microscopic UA will be performed. CBC WITH AUTO DIFFERENTIAL - Abnormal WBC 12.0 (*) Hgb 13.8 Hct 42.2 Plt 408 (*) MPV 8.4 (*) RBC 4.93 MCV 85.6 MCH 28.0 MCHC 32.7 RDW CV 12.6 RDW SD 39.0 NRBC abs 0.00 DIFFERENTIAL AUTO - Abnormal Neutrophil abs 8.0 (*) Imm gran abs 0.1 Lymphocyte abs 2.9 Monocyte abs 0.8 Eosinophil abs 0.2 Basophil abs 0.1 Neutrophil pct 66.8 Imm gran pct 0.4 Lymphocyte pct 23.8 Monocyte pct 6.7 Eosinophil pct 1.7 Basophil pct 0.6 URINALYSIS, MICROSCOPIC ONLY - Abnormal WBC, ur 0-5 RBC, ur 6-10 (*) Epithelial cells, squamous, ur 21-50 (*) Mucous, ur Present (*) Culture Reflex Comment Value: Reflex conditions for urine culture (WBC >10) not met. POCT HCG, URINE - Normal HCG, ur, POC Negative Lot Number [id number] QC Backgroud Clear Acceptable QC Control Line Acceptable COMPREHENSIVE METABOLIC PANEL Sodium 140 Potassium, pl 4.0 Chloride 104 CO2 24 Anion gap 12 BUN 10 Creatinine 0.80 Glucose 94 Calcium 9.5 Bilirubin, total 0.5 Protein, pl 7.8 Albumin 4.3 Alk phos 96 ALT 16 AST 19 LIPASE Lipase 22 EGFR eGFR 105 RADIOLOGY XR Foot Right 3+ View Result Date: 02/15/2023 Narrative: EXAM: XR FOOT RIGHT 3 OR MORE VIEWS CLINICAL HISTORY: Right foot pain. Follow-up fracture. COMPARISON: Compared with previous right foot study dated 02/04/2023. FINDINGS: Stable alignment of a minimally displaced intra- articular fracture involving the base of the 5th metatarsal in zone 1with suggestion of mild progressive interval healing changes with the fracture line appearing slightly less distinct although remaining visible. No new/acute fractures or acute dislocation identified. Stable appearing minimal arthrosis involving the 1st metatarsophalangeal joint with the remainder the joint spaces appearing unremarkable. Stable small calcaneal spur at the distal Achilles tendon insertion. Persistent mild soft tissue swelling overlying the lateral aspect the proximal 5th metatarsal. Impression: 1. Stable alignment of a minimally displaced intra-articular fracture involving the base of the 5th metatarsal with mild progressive interval healing changes since the previous study witha persistent distinct visible fracture line. 2. No new abnormalities identified. Electronically signed by: Jacky Laughlin DO XR Foot Right 3 or More Views Result Date: 02/04/2023 Narrative: EXAMINATION: XR FOOT RIGHT 3 OR MORE VIEWS HISTORY: Right 5th metatarsal fracture FINDINGS: 3 view weightbearing examination the right foot is compared with a study from 01/26/2023. There is early resorption along the fracture line of a minimally displaced, intra-articular fracture of the 5th metatarsal base. This can be a sign of early healing. There is mild hallux valgus and mild 1stmetatarsophalangeal osteoarthritis. Impression: Early healing of a minimally displaced, intra-articular fracture of the right 5th metatarsal base. Electronically signed by: Ray Curz M.D. ED COURSE/MEDICAL DECISION MAKING Differential diagnosis included but not limited to Appendicitis, abdominal aortic aneurysm, surgical biliary disease, pancreatitis, SBO, mesenteric ischemia, serious intra-abdominal bacterial illness, UTI. Presentation also not typical of gynecologic emergencies such as TOA, Ovarian Torsion, PID. Not Ectopic. Doubt atypical ACS. Patient's medical records were reviewed. I discussed management or test interpretation with the following outside physician, caregiver, care home staff: n/a ED Course as of 02/27/23203 Time: 02/27 107 Comment: Patient is tolerating p.o.. Still feels nauseated. Will give her some Compazine and reassess. By: Lakisha Mathis PA Time: 02/27 149 Comment: Patient feeling much better. Requesting discharge home at this time. By: Lakisha Mathis PA Time: 02/27 203 Value: CBC with auto differential(!): WBC 12.0(!) Hgb 13.8 Hct 42.2 Plt 408(!) MPV 8.4(!) RBC 4.93 MCV 85.6 MCH 28.0 MCHC 32.7 RDW CV 12.6 RDW SD 39.0 NRBC abs 0.00 Comment: Mild elevation of white blood cell count. Likely reactive secondary to vomiting. By: Lakisha Mathis PA Time: 02/27 203 Value: Comprehensive metabolic panel: Sodium 140 Potassium, pl 4.0 Chloride 104 CO2 24 Anion gap 12 BUN 10 Creatinine 0.80 Glucose 94 Calcium 9.5 Bilirubin, total 0.5 Protein, pl 7.8 Albumin 4.3 Alk phos 96 ALT 16 AST 19 Comment: Electrolytes within normal limits. Enzymes within normal limits of the liver and creatinine within normal limits. By: Lakisha Mathis PA Time: 02/27 203 Value: Urinalysis reflex to microscopic and culture Urine(!): Color, ur Yellow Clarity, ur Cloudy(!) Specific gravity, ur 1.023 pH, urine 5.0 Protein, ur ql Negative Glucose, ur ql Negative Ketones, ur Negative Bilirubin, ur Negative Blood, ur 1+(!) Urobilinogen, ur <2.0 Nitrite, ur Negative Leukocyte esterase, ur Negative UA reflex comment Reflex to microscopic UA will be performed. Comment: No sign of urinary tract infection. Small amount of blood in the urine. Patient maybe starting menstrual cycle. By: Lakisha Mathis PA Time: 02/27 203 Value: CT Abdomen Pelvis W Contrast Comment: IMPRESSION: No acute finding. By: Lakisha Mathis PA Time: 02/27 203 Comment: Patient was able to tolerate p.o. food and liquids. Feeling okay on the stomach. No stomach pain at this time. No nausea at this time. Patient has Zofran at home for nausea. Instructed her to keep taking her Pepcid and follow up with Dr. Thomas tomorrow. Discussed returning to the ED if she is increased abdominal pain, blood in her vomit or stool, worsening of pain or worsening of any symptoms. Patient understands and is agreeable to the plan. By: Lakisha Mathis PA Time: 02/28 204 Comment: Patient's symptoms not typical for emergent causes of abdominal pain such as, but not limited to, appendicitis, abdominal aortic aneurysm, surgical biliary disease, pancreatitis, SBO, mesenteric ischemia, serious intra-abdominal bacterial illness. Presentation also not typical of gynecologic emergencies such as TOA, Ovarian Torsion, PID. Not Ectopic. Doubt atypical ACS. Pt tolerating PO. Disposition: Patient will be discharged with strict return precautions and follow up with primary MD within 12-24 hours for further evaluation. Patient understands that this still may have an early presentation of an emergent medical conditionsuch as appendicitis that will require a recheck. By: Lakisha Mathis PA Time: 02/28 204 Comment: Recheck on patient. Non toxic appearing, vitals stable. Patient stable for discharge home. Discussed with patient work up, relevant results, and plan for discharge. Patient was given ED warnings, discharge instructions, and follow up instructions. Patient understands and agrees with plan for discharge. Patient was informed and verbalizes understanding to return to ER immediately if sympto ms worsen or persist, new concerns arise, new symptoms develop or if follow up cannot be obtained. Any questions have been addressed. Patient feels comfortable going home at this time. By: Lakisha Mathis PA Procedures FINAL IMPRESSION Abdominal pain Nausea and vomiting, unspecified vomiting type DISPOSITION: Home All findings were discussed with patient. Pt agreeable with plan. Non toxic appearing, vitals stable. Patient stable for discharge home. Given return to ER precautions Close outpatient follow-up with a low threshold to return has been mandated , concerning symptoms have been emphasized in detail, and this patient expresses understanding PATIENT INSTRUCTED TO FOLLOW UP Lorie Vanessa, BREAKFAST AND ROOM ATTENDANT [address] [facility] [address] [facility] [address] Schedule an appointment as soon as possible for a visit in 3 days ER follow up, nausea and vomiting, abdominal pain Cj Thomas MD [address] [facility] [[email or web address] [address] [facility] [address] Schedule an appointment as soon as possible for a visit in 1 week ER follow-up, abdominal pain DISCHARGE MEDICATIONS Your medication list ASK your doctor about these medications Instructions Last Dose Given Next Dose Due amoxicillin 500 mg tablet/capsule Commonly known as: AMOXIL Take 1 tablet/capsule (500 mg total) by mouth 2 (two) times a day cetirizine 10 mg chewable tablet Commonly known as: ZyrTEC Take 4 tablets (40 mg total) by mouth daily Up to 40 daily PRN cholecalciferol 25 mcg (1,000 unit) tablet Generic drug: cholecalciferol Take 1 tablet (1,000 Units total) by [...] BY MOUTH EVERY NIGHT NEEDED FOR HEARTBURN fluconazole 150 mg tablet Commonly known as: DIFLUCAN Take 1 tab every other day for 3 doses if yeast infection starts, then weekly after to prevent recurrence lamoTRIgine 100 mg tablet Commonly known as: LaMICtal Take 1.5 tablets (150 mg total) by mouth daily 1/2 in AM and 1 in PM magnesium oxide 400 mg (241.3 mg elemental magnesium) tablet Commonly known as: MAG-OX TAKE 1 TABLET(400 MG) BY MOUTH DAILY norethindrone 0.35 mg tablet Commonly known as: MICRONOR Take 1 tablet (0.35 mg total) by mouth daily ondansetron ODT 8 mg disintegrating tablet Commonly known as: ZOFRAN-ODT DISSOLVE 1 TABLET(8 MG) ON THE TONGUE EVERY 8 HOURS NEEDED FOR NAUSEA OR VOMITING pantoprazole DR 40 mg EC tablet Commonly known as: PROTONIX Take 1 tablet (40 mg total) by mouth 2 (two) times a day propranolol LA 60 mg 24 hr capsule Commonly known as: INDERAL LA Take 1 capsule (60 mg total) by mouth daily sertraline 100 mg tablet Commonly known as: ZOLOFT Take 2 tablets (200 mg total) by mouth nightly sucralfate 1 gram tablet Commonly known as: CARAFATE Take 1 tablet (1 g total) by mouth 4 (four) times a day Take 1 hour before meals and at bedtime triamcinolone 55 mcg nasal inhaler Commonly known as: NASACORT Administer 2 sprays into each nostril daily Can increase to twice daily if symptoms persist This examination was transcribed using the ALENTY voice recognition system without human nursing clinical director. In an effort to expedite patient care, this report has not been adjusted for typographical, grammatical, and syntax by a trained lpn medical assistant. Lakisha Mathis PA 02/27/23 0204 Cosigned by Shefali Andrews DO at 02/28/2023 5:02 AM CDT Associated attestation - Shefali Andrews DO - 02/28/2023 5:02 AM CDT ED Attestation I did not see this patient. However, I was personally available for consultation in the ED for thispatient if the Advanced Practice Provider (HARVEY) needed any assistance. The HARVEY evaluated the patient independently and completed their own examination, documentation, and disposition. * Teresa Bryant, RN - 02/26/2023 9:08 PM CDT Pt arrives with c/o vomiting and nausea x 5 days. Pt reports upper abdominal pain as well. Pt has been taking zofran which was helping, until tonight. Pt reports that this has occurred before but they have not figured out why. Pt reports taking 8mg ODT zforan around 1600. documented in this encounter Plan of Treatment Not on file documented as of this encounter Procedures Procedure Name Priority Date/Time Associated Diagnosis Comments CT ABDOMEN PELVIS W CONTRAST ED 02/26/2023 10:47 PM CDT POCT HCG, URINE Routine 02/26/2023 9:34 PM CDT URINALYSIS AND REFLEX TO MICROSCOPIC AND CULTURE STAT 02/26/2023 9:22 PM CDT URINALYSIS, MICROSCOPIC ONLY STAT 02/26/2023 9:22 PM CDT EGFR STAT 02/26/2023 9:21 PM CDT DIFFERENTIAL AUTO STAT 02/26/2023 9:2 1 PM CDT CBC WITH AUTO DIFFERENTIAL STAT 02/26/2023 9:21 PM CDT LIPASE STAT 02/26/2023 9:21 PM CDT COMPREHENSIVE METABOLIC PANEL STAT 02/26/2023 9:21 PM CDT documented in this encounter Results * CT Abdomen Pelvis W Contrast (02/26/2023 10:47 PM CDT) Anatomical Region Laterality Modality Body N/A Computed Tomogra phy 02/26/2023 10:5 5 PM CDT Narrative 02/26/2023 11:03 PM CDT EXAM DESCRIPTION: ?? CT ABDOMEN PELVIS W CONTRAST REASON FOR STUDY: ?? Nausea/vomiting, Abdominal pain, acute, nonlocalized ?? Nausea and vomiting x 5 days. Denies surgical hx ?? TECHNIQUE: CT scan of the abdomen and [...] ?? injected via ?? intravenous COMPARISON: ?? 11/20/2022 REFERENCE: Per ACR white paper recommendations, unless otherwise specified no follow-up imaging is recommended for incidental renal and adrenal lesions per consensus recommendations based on imaging criteria. Further lab evaluation could be pursued based on clinical findings. FINDINGS: LOWER CHEST: ?? No significant pulmonary abnormalities. No effusion. LIVER: ?? Normal size. ??No identified cystic or solid masses. GALLBLADDER: ?? No stones identified. No wall thickening or inflammatory changes. BILE DUCTS: ?? No intrahepatic or extrahepatic ductal dilatation. SPLEEN: ?? Normal size. ??No focal lesions. PANCREAS: ?? No identified cystic or solid masses. No significant calcifications. No adjacent inflammation or peripancreatic fluid collections. Pancreatic duct not dilated. ?? ADRENALS: ?? Normal. KIDNEYS/URINARY TRACT: ?? No identified significant cystic or solid masses. No visualized stones. No hydronephrosis or hydroureter. Symmetric enhancement. ? Urinary bladder is unremarkable. GI: ?? No dilated bowel loops. No obvious wall thickening. ??Normal appendix. ?? No significant diverticular disease. PERITONEUM: ?? No ascites or free air. RETROPERITONEUM: ?? No mass or adenopathy. REPRODUCTIVE: ?? No significant abnormality. VASCULATURE: ?? No abdominal aortic aneurysm. MUSCULOSKELETAL: ?? No significant abnormality. OTHER: ?? No other abnormality. IMPRESSION: ?? No acute finding. THIS IS AN ELECTRONICALLY VERIFIED FINAL REPORT 02/26/2023 11:03 PM - Electronically signed by ??Tyler Glass M.D. KT: KEIRY D: ??02/26/2023 11:03 PM T: ??02/26/2023 11:03 PM Report ID: [id number] Reading Location: ??[id number] Procedure Note Tyler Glass MD - 02/26/2023 EXAM DESCRIPTION: CT ABDOMEN PELVIS W CONTRAST REASON FOR STUDY: Nausea/vomiting, Abdominal pain, acute, nonlocalized Nausea and vomiting x 5 days. Denies surgical hx TECHNIQUE: CT scan of the abdomen and pelvis performed with intravenousand without oral contrast using helical scanning technique with dynamic intravenous contrast injection. Reconstructed coronal and sagittal MPRimages reviewed. All images stored on PACS. Automated exposure control was usedas a dose optimization technique for this examination. CONTRAST TYPE/DOSE: 100mL of IOVERSOL 350 MG IODINE/ML INTRAVENOUSSYRINGE injected via intravenous COMPARISON: 11/20/2022 REFERENCE: Per ACR white paper recommendations, unless otherwise specifiedno follow-up imaging is recommended for incidental renal and adrenal lesionsper consensus recommendations based on imaging criteria. Further labevaluation could be pursued based on clinical findings. FINDINGS: LOWER CHEST: No significant pulmonary abnormalities. Noeffusion. LIVER: Normal size. No identified cystic or solid masses. GALLBLADDER: No stones identified. No wall thickening or inflammatory changes. BILE DUCTS: No intrahepatic or extrahepatic ductal dilatation. SPLEEN: Normal size. No focal lesions. PANCREAS: No identified cystic or solid masses. No significant calcifications. No adjacent inflammation or peripancreatic fluidcollections. Pancreatic duct not dilated. ADRENALS: Normal. KIDNEYS/URINARY TRACT: No identified significant cystic or solid masses.No visualized stones. No hydronephrosis or hydroureter. Symmetricenhancement. Urinary bladder is unremarkable. GI: No dilated bowel loops. No obvious wall thickening. Normalappendix. No significant diverticular disease. PERITONEUM: No ascites or free air. RETROPERITONEUM: No mass or adenopathy. REPRODUCTIVE: No significant abnormality. VASCULATURE: No abdominal aortic aneurysm. MUSCULOSKELETAL: No significant abnormality. OTHER: No other abnormality. IMPRESSION: No acute finding. THIS IS AN ELECTRONICALLY VERIFIED FINAL REPORT 02/26/2023 11:03 PM - Electronically signed by Tyler Glass M.D. KT: KEIRY Report ID: [id number] Reading Location: [id number] us Lakishafazal LEYVA IMG CT PROCEDURES Final Result * POCT hCG, urine (02/26/2023 9:34 PM CDT) HCG, ur, POC Negative Negative Lot Number [id number] QC Backgroud Clear Acceptable QC Control Line Acceptable Urine 02/26/2023 9:34 PM CDT us Lakishagenesis Mathis PA POINT OF CARE TEST ORDERABLES Fi nal Result * (ABNORMAL) Urinalysis, microscopic only (02/26/2023 9:22 PM CDT) Pathologist [facility] WBC, ur 0-5 0 - 5 /HPF FRAN Comment:Testing performed by : [address] [address] RBC, ur 6-10(A) 0 - 2 /HPF FRAN Comment:Testing performed by : [address] [address] Epithelial cells, squamous, ur 21-50(A) 0 - 5 /HPF FRAN Comment:Testing performed by : [address] [address] Mucous, ur Present(A) FRAN Comment:Testing performed by : [address] [address] Culture Reflex Comment Reflex conditions for urine culture (WBC >10) not met. FRAN Comment:Testing performed by : [address] [address] Urine 02/26/2023 9:22 PM CDT 02/26/2023 9:36 PM CDT us Lakisha [facility] LAB URINE ORDERABLES Final Resul t [facility]AN [facility]YS [address] [facility] Department of Laboratories [place], [place] [id number] * (ABNORMAL) Urinalysis reflex to microscopic and culture Urine (02/26/2023 9:22 PM CDT) Color, ur Yellow Yellow FRAN Comment:Testing performed by : [address] [address] Clarity, ur Cloudy(A) Clear FRAN Comment:Testing performed by : [address], [place]., [address] Specific gravity, ur 1.023 1.003 - 1.030 FRAN Comment:Testing performed by : [address] [address] pH, urine 5.0 FRAN Comment: Interpretive Data ? Urine pH is affected by diet, medications, systemic acid-base disturbances, and renal tubular function. ??pH may affect urinary stone formation. ??For example, urine pH below 6.0 may help reduce the tendency for calcium phosphate stones and pH greater than 6.0 may reduce the tendency for uric acid stone formation. Source: [facility] [employer] Current Interpretive Data was last revised on 2017 Testing performed by: [address] [address] Protein, ur ql Negative Negative FRAN Comment:Testing performed by : [address] [address] Glucose, ur ql Negative Negative FRAN Comment:Testing performed by : [address] [address] Ketones, ur Negative Negative FRAN Comment:Testing performed by : [address] [address] Bilirubin, ur Negative Negative FRAN Comment:Testing performed by : [address] [address] Blood, ur 1+(A) Negative FRAN Comment:Testing performed by : [address] [address] Urobilinogen, ur <2.0 <2.0 mg/dL FRAN Comment:Testing performed by : [address] [address] Nitrite, ur Negative Negative FRAN Comment:Testing performed by : [address] [address] Leukocyte esterase, ur Negative Negative FRAN HAYS Comment:Testing performed by : [facility], [address] [place] [address]., [address] UA reflex comment Reflex to microscopic UA will be performed. FRAN HAYS Comment:Testing performed by : [facility], [address] [place] [address]., [address] Urine 02/26/2023 9:22 PM CDT 02/26/2023 9:36 PM CDT us Lakisha [facility]YVA LAB MICROBIOLOGY - GENERAL ORDER DAVIN Final Result FRAN [address] [facility] Department [place] [address] * eGFR (02/26/2023 9:21 PM CDT) eGFR 105 mL/min/1. 73 m2 FRAN HAYS Comment: Interpretive [...] was last reviewed 2021. Testing performed by: [address] [address] Blood 02/26/2023 9:21 PM CDT 02/26/2023 9:35 PM CDT us Lakisha LEYVA LAB BLOOD ORDERABLES Final Resul t [facility] [address] [facility] Department [place] [address] * (ABNORMAL) Differential, auto (02/26/2023 9:21 PM CDT) Neutrophil abs 8.0(H) 1.7 - 6.5 K/cumm FRAN Comment:Testing performed by : [address] [address] Imm gran abs 0.1 0.0 - 0.1 K/cumm FRAN Comment:Testing performed by : [address] [address] Lymphocyte abs 2.9 0.8 - 3.3 K/cumm FRAN Comment:Testing performed by : [address] [address] Monocyte abs 0.8 0.2 - 0.8 K/cumm FRAN Comment:Testing performed by : [address] [address] Eosinophil abs 0.2 0.0 - 0.5 K/cumm FRAN Comment:Testing performed by : [address] [address] Basophil abs 0.1 0.0 - 0.1 K/cumm FRAN Comment:Testing performed by : [address] [address] Neutrophil pct 66.8 % FRAN Comment: Interpretive Data Percent cell count reference ranges are not reported, since discordance with absolute values may lead to misinterpretation of CBC data. Current Interpretive Data was last revised on 2017. Testing performed by: [address] [address] Imm gran pct 0.4 % [facility] Comment: Interpretive Data Percent cell count reference ranges are not reported, since discordance with absolute values may lead to misinterpretation of CBC data. Current Interpretive Data was last revised on 2017. Testing performed by: [address] [address] Lymphocyte pct 23.8 % [facility] Comment: Interpretive Data Percent cell count reference ranges are not reported, since discordance with absolute values may lead to misinterpretation of CBC data. Current Interpretive Data was last revised on 2017. Testing performed by: [address] [address] Monocyte pct 6.7 % [facility] Comment: Interpretive Data Percent cell count reference ranges are not reported, since discordance with absolute values may lead to misinterpretation of CBC data. Current Interpretive Data was last revised on 2017. Testing performed by: [address] [address] Eosinophil pct 1.7 % [facility] Comment: Interpretive Data Percent cell count reference ranges are not reported, since discordance with absolute values may lead to misinterpretation of CBC data. Current Interpretive Data was last revised on 2017. Testing performed by: [address] [address] Basophil pct 0.6 % [facility] Comment: Interpretive Data Percent cell count reference ranges are not reported, since discordance with absolute values may lead to misinterpretation of CBC data. Current Interpretive Data was last revised on 2017. Testing performed by: [address] [address] Blood 02/26/2023 9:21 PM CDT 02/26/2023 9:35 PM CDT us Lakisha LEYVA LAB BLOOD ORDERABLES Final Resul t [facility]AN [facility] [address] [facility] Department [place] [address] * Lipase (02/26/2023 9:21 PM CDT) Lipase 22 10 - 99 Units/L FRAN Comment:Testing performed by : [address] [address] Blood (Blood, Venous) 02/26/2023 9:21 PM CDT 02/26/2023 9:35 PM CDT us Lakisha LEYVA LAB BLOOD ORDERABLES Final Resul t FRAN [address] [facility] Department [place] [address] * Comprehensive metabolic panel (02/26/2023 9:21 PM CDT) Pathologist [facility] Sodium 140 135 - 145 mmol/L FRAN Comment:Testing performed by : [address] [address] Potassium, pl 4.0 3.3 - 4.9 mmol/L FRAN Comment:Testing performed by : [address] [address] Chloride 104 97 - 110 mmol/L FRAN Comment:Testing performed by : [address] [address] CO2 24 22 - 32 mmol/L FRAN Comment:Testing performed by : [address] [address] Anion gap 12 2 - 15 mmol/L RFAN Comment:Testing performed by : [address] [address] BUN 10 6 - 25 mg/dL FRAN Comment:Testing performed by : [address] [address] Creatinine 0.80 0.60 - 1.10 mg/dL FRAN Comment:Testing performed by : [address] [address] Glucose 94 70 - 199 mg/dL FRAN [...] was last revised 2022. Testing performed by: [address] [address] Calcium 9.5 8.5 - 10.3 mg/dL FRAN Comment:Testing performed by : [address] [address] Bilirubin, total 0.5 0.1 - 1.2 mg/dL FRAN Comment:Testing performed by : [address] [address] Protein, pl 7.8 6.5 - 8.5 g/dL FRAN Comment:Testing performed by : [address] [address] Albumin 4.3 3.5 - 5.0 g/dL FRAN Comment:Testing performed by : [address] [address] Alk phos 96 40 - 130 Units/L FRAN Comment:Testing performed by : [address] [address] ALT 16 7 - 45 Units/L FRAN Comment:Testing performed by : [address] [address] AST 19 10 - 45 Units/L FRAN Comment:Testing performed by : [address] [address] Blood 02/26/2023 9:21 PM CDT 02/26/2023 9:35 PM CDT us Lakisha LEYVA LAB BLOOD ORDERABLES Final Resul t FRAN [address] [facility] Department of Laboratories [place], [place] [id number] * (ABNORMAL) CBC with auto differential (02/26/2023 9:21 PM CDT) [facility] Signature WBC 12.0(H) 3.8 - 9.9 K/cumm FRAN Comment:Testing performed by : [address], [address] Hgb 13.8 11.9 - 15.5 g/dL FRAN Comment:Testing performed by : [address], [address] Hct 42.2 35.6 - 45.5 % FRAN Comment:Testing performed by : [address], [address] Plt 408(H) 150 - 400 K/cumm FRAN Comment:Testing performed by : [address], [address] MPV 8.4(L) 9.1 - 12.3 fL FRAN Comment:Testing performed by : [address], [address] RBC 4.93 3.90 - 5.20 M/cumm FRAN Comment:Testing performed by : [address] [address] MCV 85.6 81.3 - 96.4 fL FRAN Comment:Testing performed by : [address], [address] MCH 28.0 27.1 - 33.3 pg FRAN Comment:Testing performed by : [address], [address] MCHC 32.7 32.3 - 35.7 g/dL FRAN Comment:Testing performed by : [address], [address] RDW CV 12.6 11.1 - 14.9 % FRAN Comment:Testing performed by : [address], [address] RDW SD 39.0 35.7 - 48.1 fL FRAN Comment:Testing performed by : [address], [address] NRBC abs 0.00 0.00 - 0.01 K/cumm FRAN Comment:Testing performed by : [facility], [address] [place] [address]., [address] Blood (Blood, Venous) 02/26/2023 9:21 PM CDT 02/26/2023 9:35 PM CDT us Lakisha LEYVA LAB BLOOD ORDERABLES Final Resul t FRAN [address] [facility] Department [place] [address] documented in this encounter Visit Diagnoses Diagnosis Abdominal pain- Primary Abdominal pain, unspecified site Nausea and vomiting, unspecified vomiting type documented in this encounter Administered Medications Inactive Administered Medications - up to 3 most recent administrations Medication Order MAR Action Action Date Dose Rate Site dicyclomine (BENTYL) tablet 20 mg 20 mg, oral, Once, On Sat02/26/23 at 2259, For 1 dose Given 02/26/2023 11:01 PM CDT 20 mg famotidine (PEPCID) injection 20 mg 20 mg, intravenous, Administer over 2 Minutes, Once, On Sat02/27/23 at 0016, For 1 dose, Indications: gastroesophageal reflux diseaseIndications:gastr oesophageal reflux disease Given 02/27/2023 12:20 AM CDT 20 mg HYDROmorphone (DILAUDID) injection 0.5 mg 0.5 mg, intravenous, Administer over 2 Minutes, Once, On Sat02/27/23 at 0016, For 1 dose Given 02/27/2023 12:21 AM CDT 0.5 mg ioversoL (OPTIRAY 350) syringe 100 mL 100 mL, intravenous, Once in imaging, contrast, Starting on Sat02/26/23 at 2244, For 1 dose Contrast Given 02/26/2023 10:44 PM CDT 100 mL Right Antecubital metoclopramide (REGLAN) 5 mg/mL injection 10 mg 10 mg, intravenous, Administer over 1 Minutes, Once, On Sat02/26/23 at 2316, For 1 dose Given 02/26/2023 11:18 PM CDT 10 mg prochlorperazine (COMPAZINE) injection 5 mg 5 mg, intravenous, Administer over 2 Minutes, Once, On Sat02/27/23 at 0107, For 1 dose Given 02/27/2023 1:13 AM CDT 5 mg sodium chloride 0.9% bolus 1,000 mL 1,000 mL, intravenous, Once, On Sat02/26/23 at 2256, For 1 dose New Bag 02/26/2023 11:00 PM CDT 1,000 mL documented in this encounter Active and Recently Administered Medications Times are shown in CDT. Scheduled Medication Order 02/25/2023 02/26/2023 02/27/2023 dicyclomine (BENTYL) tablet 20 mg (COMPLETED) 20 mg, oral, Once, On Sat02/26/23 at 2259, For 1 dose 2301 (Given - Provider: Mali Morris RN) famotidine (PEPCID) injection 20 mg (COMPLETED) 20 mg, intravenous, Administer over 2 Minutes, Once, On Sat02/27/23 at 0016, For 1 dose, Indications: gastroesophageal reflux disease 0020 (Given - Provider: Mali Morris RN) HYDROmorphone (DILAUDID) injection 0.5 mg (COMPLETED) 0.5 mg, intravenous, Administer over 2 Minutes, Once, On Sat02/27/23 at 0016, For 1 dose 0021 (Given - Provider: Mali Morris RN) metoclopramide (REGLAN) 5 mg/mL injection 10 mg (COMPLETED) 10 mg, intravenous, Administer over 1 Minutes, Once, On Sat02/26/23 at 2316, For 1 dose 2318 (Given - Provider: Mali Morris RN) prochlorperazine (COMPAZINE) injection 5 mg (COMPLETED) 5 mg, intravenous, Administer over 2 Minutes, Once, On Sat02/27/23 at 0107, For 1 dose 0113 (Given - Provider: Brissa Serrano RN) sodium chloride 0.9% bolus 1,000 mL (COMPLETED) 1,000 mL, intravenous, Once, On Sat02/26/23 at 2256, For 1 dose 2300 (New Bag - Provider: Mali Morris RN) 0000 (Stopped - Provider: Mali Morris RN) PRN Medication Order 02/25/2023 02/26/2023 02/27/2023 ioversoL (OPTIRAY 350) syringe 100 mL (COMPLETED) 100 mL, intravenous, Once in imaging, contrast, Starting on Sat02/26/23 at 2244, For 1 dose 2244 (Contrast Given - Provider: Milton Castillo, RT) documented in this encounter Orders Medications Ordered That Baldomero ht Not Have Been Administered Count Last Ordered Date First Ordered Date famotidine (PEPCID) injection 20 mg 1 02/26 Nursing Count Last Ordered Date First Orde red Date MISCELLANEOUS NURSING CARE ORDER (SPECIFY) 1 02/26/2023 IV Count Last Ordered Date First Orde red Date SALINE LOCK IV 1 02/26/2023 documented in this encounter Care Teams [place] Laborer Relationship Specialty Start Date End Date Lorie Vanessa NP [address] [place] [id number] PCP - General Family Practice 05/29/22 No, Physician 06/08/21 documented as of this encounter
--- OUTSIDE RECORDS SUMMARY | 2024-06-06 00:31 | XMS_ITS | Encounter Summary ---
Author Organization [facility] Healthcare Address [address] [place] [address] Care Team Providers Care Core Drier Name Role Phone No, Physician Unavailable Lorie Vanessa NP Primary Care Provider [phone] Reason for Visit * Reason Comments PT Treatment * Consultation (Routine) - Closed Specialty Diagnoses / Procedures Referred By Cyn burnett Referred To Contact Physical Therapy Diagnoses Left lumbar pain Justin Grover NP [address] [place] [address] Phone: tel: fax: [address] [phone] Referral ID Status Reason Start Date Expiration Date V isits Requested Visits Authorized [id number] Closed Evaluate and Treat 02/11/2023 03/12/2024 18 Encounter Details Date Type Department Care Team (Late st Contact Info) Description 02/18/2023 3:15 PM CDT Therapy [facility] Physical Therapy [address] [place] [phone] Milton Love, PT Left lumbar pain (Primary Dx); Sprain [...] staff should administer the PHQ-9) 1 12/11/2022 Comments No Sex and Gender Information Value Date Recorded Sex Assigned at Not on file Legal Sex Female 6:55 PM BAG PRESSER Gender Identity Female 06/06/2022 7:40 AM BAG PRESSER Sexual Orientation Not on file documented as of this encounter Progress Notes * Milton Love, PT - 02/18/2023 3:15 PM CDT Physical Therapy Visit PT Daily Treatment Note 02/18/2023 Emily Guerrier 1995 ICD-9-CM ICD-10-CM 1. Left lumbar pain 724.2 M54.50 2. 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 Wearing a boot fruit peeler, but is allowed to remove with supine exercises. Followed back up with [facility] (02/11/23) and was referred back to PT with an additional back diagnosis. PMH: POTS. 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 Subjective: Emily Guerrier reports I'm feeling okay today today. It hasn't been hurting too bad. She continued to feel tightness and soreness into the left lower back and buttock this weekend with any prolonged sitting or standing. She rates her current discomfort at 3/10. Mrs. Guerrier anticipates receiving her Even Up for the left shoe later today. Objective: Therapy was conducted in a dark room today due to patient's complaints of a headache. Treatment Provided: See below. Treatments 02/12/23 02/14/23 02/15/23 02/18/23 Visit Number/Visits Ordered 08/01 09/01 10/01 11/01 Received new script X (used 2 visits, new order for 6 visits total 8 visits) -- Posterior Pelvic Tilt HEP -- Supine Gluteal Sets Hooklying lower trunk rotation X30 ANA X30 ANA. -- Bent Knee Fallouts HEP -- ANA hip external rotation in hooklying Yellow 2x10 Yellow 2x10 Reps Performed Unilaterally Lower Abdominal Marching 2x10 ANA 2x10 ANA. 2x10 reps Lower abdominal contraction with alternate UE lift 2x10 ANA 2x10 ANA. 2x10 reps Lower abdominal contraction with ANA shoulder extension in supine (latissimus pull down) Yellow 2x10 Yellow 2x10 reps Clamshells HEP Yellow x10 ANA Yellow 2x10 Reps Bilateral Bridging with kyrgyz ball 2x10 2x10. Wincing and grimacing end of second set. -- Prone alternating hip extension with lower abdominal contraction 2x10 ANA X10 ANA. -- Seated Nerve Glides L 10 ankle pumps x5 sets, R slumping with knee flexion & erect with knee extension to glide nerve 2x10 -- Standing frontal plane leaning To left x30 [...] Clamshells, Bent Knee Fallouts Assessment: Emily Guerrier arrived to the clinic today with reduced pain intensity. She completed all supine, hooklying exercises without any apparent difficulty or additional voiced discomfort. Bridging was deferred due to patient's inability to weight bear through the right foot. Mrs. Guerrier did express some mild discomfort near the left thoracolumbar junction with the first set of clamshells, but her second set was completed without complaints as she exhibited improved abdominal engagement. Mrs. Guerrier welcomed application of a cold pack in conclusion and rated her post-workout complaints at an unchanged 3/10. Patient Response to Treatment: Good. Rehab Prognosis/Potential: good. Patient would benefit from continued skilled Physical Therapy. STG to be met by 03/13/23 -- extended due to lapse in care after patient fracturing her foot -ongoing 1) Patient will demonstrate normalized roberts left L4 myotomal strength to improve her gait mechanics.-ongoing 2) Patient will demonstrate at least 75% of full lumbar AROM in all directions with no greater than2/10 low back pain to improve her tolerance for lifting.-ongoing 3) Patient will be able to stand for at least 20 minutes with no greater than 2/10 low back pain toimprove her tolerance to prolonged activity.-ongoing LTG to be met by discharge. 1) Patient independent with home exercise program-ongoing 2) Patient to improve function on RADHA to 19% or less -ongoing 3) Patient will return to completing her occupational demands without limitation due to her currentsubjective complaints. -ongoing 4) Patient will drive for at least 20 minutes with no reported low back or left lower extremity radicular complaints. -ongoing Plan: Continue with core and hip girdle stabilization and strengthening. Consider progressing HEP. Milton Love PT Time Calculator Time-Based Code Calculator Minutes for Ther Ex/Ther Procedure (17941):: 35 minutes Timed Code Treatment Minutes:: 35 minutes Total Treatment Time: 40 documented in this encounter Plan of Treatment Not on file documented as of this encounter Visit Diagnoses Diagnosis Left lumbar pain- Primary Lumbago Sprain of ligaments of lumbar spine, initial encounter documented in this encounter Care Teams Core Drier Relationship Specialty Start Date End Date Lorie Vanessa NP [address] [place] [id number] PCP - General Family Practice 05/29/22 No, Physician 06/08/21 documented as of this encounter
--- OUTSIDE RECORDS SUMMARY | 2024-06-06 00:31 | XMS_ITS | Encounter Summary ---
Author Organization [facility] Healthcare Address [address] [place] [address] Care Team Providers Care Diagnostic Medical Sonographer Name Role Phone No, Physician Unavailable Lorie Vanessa NP Primary Care Provider [phone] Reason for Visit * Reason Comments PT Progress Note * Consultation (Routine) - Closed Specialty Diagnoses / Procedures Referred By Cyn burnett Referred To Contact Physical Therapy Diagnoses Left lumbar pain Justin Grover NP [address] [place] [address] Phone: tel: fax: [address] [phone] Referral ID Status Reason Start Date Expiration Date V isits Requested Visits Authorized [id number] Closed Evaluate and Treat 02/11/2023 03/12/2024 Encounter Details Date Type Department Care Team (Late st Contact Info) Description 02/19/2023 7:30 AM CDT Therapy [facility] Physical Therapy [address] [place] [phone] Poonam Thompson, DPAndrew Left lumbar pain (Primary Dx); Sprain of ligaments of lumbar spine, initial encounter; Low back pain, unspecified back pain laterality, unspecified chronicity, unspecified whether sciatica present Social History Tobacco Use Types Packs/Day Years [...] on file Legal Sex Female 6:55 PM PATIENT ACCESS MANAGER Gender Identity Female 06/06/2022 7:40 AM PATIENT ACCESS MANAGER Sexual Orientation Not on file documented as of this encounter Progress Notes * Poonam Thompson, DPT - 02/19/2023 7:30 AM CDT Images from the original note were not included. Physical Therapy Progress Note 02/19/2023 Emily Guerrier 1995 27 y.o. female Bhakti Bryson MSN, NUCLEAR EQUIPMENT RESEARCH ENGINEER-DC and Justin Grover MAST MAKER, RECEIVING DOCK CHECKER [address] [place] [id number] Case Adjustor: Sammy Doyle ICD-9-CM ICD-10-CM 1. Left lumbar pain 724.2 M54.50 2. Sprain of ligaments of lumbar spine, initial encounter 847.2 S33.5XXA Past Medical History: Diagnosis Date GERD (gastroesophageal reflux disease) Irritable bowel syndrome Migraines Motion sickness Nausea Polycystic ovary syndrome Postural orthostatic tachycardia syndrome (POTS) Past Surgical History: Procedure Laterality Date BAND HEMORRHOIDECTOMY COLONOSCOPY ESOPHAGOGASTRODUODENOSCOPY Number of PT Visits: 7 Reporting Period: 02/12/23 to 02/19/2023 Start Time: 07 (pt arrived on time but had to use restroom) End Time: 816 Subjective: History of Present Condition -- reviewed 02/12/23 Emily Guerrier reports that 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 She was instructed by the [...] treatmentfor this as well. Wearing a boot time study clerk, but is allowed to remove with supine exercises. Since her last visit of PT and since fracturing her foot, has tried to do some exercises here and there as able. Recently followed back up with [facility] (02/11/23) and was referred back to PT with another diagnosis. Diagnostic Tests No current imaging. X-ray from : Lumbar spine: There are no fractures. There is mild L1-L2 degenerative disc disease. Alignment is normal. Previous Treatment: PT for low back as teenager. Pain 02/19/23 Current pain ratin/10. At best pain ratin/10, which pt states her baseline prior to her injury from a chronic dull low back pain. At worst pain ratin/10. Location: Left lower back into left hip. Description: Tight, pulling, burning. Exacerbating Factors: Sitting, walking, moving hip too far with some of the exercises causes pulling in the back, any prolonged position. Relieving Factors: Heat, medication (Tylenol, Ibuprofen, and muscle relaxer PRN but states it doesn't really help). Other Symptoms: N&T no longer constant, but still occurs intermittently. Pt states sitting for too long can cause the LLE N&T and other movements but not sure specifically because it can randomly happen. Pt states the symptoms travel down the lateral LLE all the way into the left foot. Special Questions: Pt denies bowel and bladder changes,saddle paresthesia, pain provocation with cough/sneeze/Valsalva, unexplained weight loss >= 10 lbs, night pain Function Current Functional Deficits 02/19/23: Currently on light duty. Pt states she's able to sit for [id number] minutes without shifting around. She tolerates everything better in the mornings compared to later in the day. She states she's able to walk about 10-15 minutes. She's able to stand about 10 minutes. Pt states driving is definitely better but still sore. When she's driving home it's worse. Her drive to/from work is about 35 minutes. Pt states she feels her overall soreness and pain is a little bit better since beginning PT but her function is about the same. 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 Posture: Hinge L4/5 with skin crease, [...] Flexion 50%* pull on left side Extension 40%* Right Lateral Flexion 100% Left Lateral Flexion 75%* Right Rotation 75%* Left Rotation 60%* *-denotes pain Movement Analysis: Limited to minimal motion noted below L4/5 during standing trunk flexion and extension AROM, guarded motion with all trunk motion especially flexion/extension/left lateral flexion/left rotation. Neurological Tests: Babinski (-), Clonus (-) Reflexes: 2+ throughout bilateral L3-S1 lower extremity reflexes Myotomes Right Left Iliopsoas (L1/2) 5/5 4+/5* Quadriceps (L3) 5/5 4+/5* with cogwheel Anterior Tibialis (L4) NT due to right foot fx 4+/5 Extensor Hallicus. Longus (L5) NT due to right foot fx 5/5 Gluteus Medius (L5) 4+/5 4/5* Peroneals (L5/S1) NT due to right foot fx 5/5 with encouragement Hamstrings (L5-S2) 5/5 4+/5* Gastrocnemius (S1/2) NT due to right foot [...] or left ankle plantarflexion. Festus Signs: 0/5 Joint Mobility: Did not complete manual assessment on lumbar spine. Palpation: Increased tenderness to palpation noted L>R L4/5 transverse processes and paraspinal musculature. Hypertonus noted left L3-5 lumbar paraspinals and multifdi. Treatment Provided: Evaluation, therapeutic procedures, neuromuscular reeducation, manual therapy, education, and HEP. Assessment: Therapy Impression: Emily Guerrier has completed 5 of the additional 6 prescribed PT visits ordered on 02/11/23. She verbalizes pain levels slightly better at best back down to her baseline of 2/10intensity. Her pain at worst decreased slightly as well to 7/10 intensity. Her RADHA improved by 4%, currently at 50% impairment. Her lumbar spine AROM is improving but still limited and painful throughout. Her LLE MMT this date was the same or slightly regressed. Her gait is impaired but she also ishaving to wear a CAM boot on right LE due to a fractured right 5th metatarsal. Encouraged pt to wear a tennis shoe and Even Up (has ordered, but received yet) to help level her leg lengths for improved gait pattern and less shifting of lumbar spine. She has not fully met any of the established PTgoals as of this time. She returns to referred ACCOUNT SERVICES ASSOCIATE tomorrow, 02/20/23. STG to be met by 03/13/23 1) [...] left lower extremity radicular complaints.-- ONGOING Plan: Pt returns to referred ACCOUNT SERVICES ASSOCIATE tomorrow, 02/19/23. Please advise. Poonam Thompson DPT Time-Based Code Calculator Minutes for Ther Ex/Ther Procedure (34644):: 38 minutes Minutes for Neuro Re-Ed (99136): : 2 minutes Timed Code Treatment Minutes:: 40 minutes Total Treatment Time: 40 PT Daily Treatment Note 02/19/2023 Emily Guerrier 1995 ICD-9-CM ICD-10-CM 1. Left lumbar pain 724.2 M54.50 2. 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 Wearing a boot time study clerk, but is allowed to remove with supine exercises. Followed back up with [facility] (02/11/23) and was referred back to PT with an additional back diagnosis. PMH: POTS. Job Description- Nurse: Lifting 10-35 lbs Climbing 0-25% Grasping, pinching, holding 0-25% Lifting or carrying 0-25% Pushing or pulling 0-25% Reaching overhead 0-25% Sitting 0-25% Squatting, bending, kneeling 0-25% Standing 26-75% Walking or moving 26-75% Visit Info Next MD Visit: 02/20/23 Progress Report Completed: 02/12/23 (3rd visit), 02/19/23 (7th visit) Progress Report Due: -- Start Time: 07 (pt arrived on time but had to use restroom) End Time: 816 Patient ID verified. Subjective: See progress note above. Objective: See progress note above. Encouraged pt to sit up tall with TA slightly engaged. Treatment Provided: See below. Treatments 02/14/23 02/15/23 02/18/23 02/19/23 Visit Number/Visits Ordered 09/01 10/01 11/01 12/01 Progress Note Received new script -- Posterior Pelvic Tilt -- Supine Gluteal Sets Hooklying lower trunk rotation X30 ANA X30 ANA. -- Bent Knee Fallouts -- ANA hip external rotation in hooklying Yellow 2x10 Yellow 2x10 Reps Performed Unilaterally Yellow. 2x10 left. Lower Abdominal Marching 2x10 ANA 2x10 ANA. 2x10 reps 2x10 reps Lower abdominal contraction with alternate UE lift 2x10 ANA 2x10 ANA. 2x10 reps 2x10 reps Lower abdominal contraction with ANA shoulder extension in supine (latissimus pull down) Yellow 2x10 Yellow 2x10 reps -- Clamshells Yellow x10 ANA Yellow 2x10 Reps Bilateral Yellow 2x10 Reps Bilateral Bridging with sierra [place] ball 2x10 2x10. Wincing and grimacing end of second set. -- Prone alternating hip extension with lower abdominal contraction 2x10 ANA X10 ANA. -- Seated Nerve Glides L 10 ankle pumps x5 sets, R slumping with knee flexion & erect with knee extension to glide nerve 2x10 -- Seated TA with alternating LE march, small ROM 2x10 ANA. Standing frontal plane leaning To left x30 [...] Bent Knee Fallouts Assessment: See progress note above. Patient Response to Treatment: Good. Pt reported same 2-3/10 pain upon exiting today's session. Rehab Prognosis/Potential: good. Patient would benefit from continued skilled Physical Therapy. STG to be met by 03/13/23 1) [...] left lower extremity radicular complaints.-- ONGOING Plan: Pt returns to referring ACCOUNT SERVICES ASSOCIATE tomorrow, 02/20/23. Await plan from ACCOUNT SERVICES ASSOCIATE. Poonam Thompson DPT Time Calculator Time-Based Code Calculator Minutes for Ther Ex/Ther Procedure (29857):: 38 minutes Minutes for Neuro Re-Ed (24579): : 2 minutes Timed Code Treatment Minutes:: 40 minutes Total Treatment Time: 40 documented in this encounter Plan of Treatment Not on file documented as of this encounter Visit Diagnoses Diagnosis Left lumbar pain- Primary Lumbago Sprain of ligaments of lumbar spine, initial encounter Low back pain, unspecified back pain laterality, unspecified chronicity, unspecified whether sciatica present documented in this encounter Orders Outpatient Referral Count Last Ordered Date Fir st Ordered Date AMB REFERRAL ORDER TO PHYSICAL THERAPY 1 documented in this encounter Care Teams Diagnostic Medical Sonographer Relationship Specialty Start Date End Date Lorie Vanessa NP [address] [place] [address] PCP - General Family Practice 05/29/22 No, Physician 06/08/21 documented as of this encounter
--- OUTSIDE RECORDS SUMMARY | 2024-06-06 00:31 | XMS_ITS | Encounter Summary ---
Author Organization [facility] Healthcare Address [address] [place] [address] Care Team Providers Care Lumber Cutter Name Role Phone No, Physician Unavailable Lorie Vanessa NP Primary Care Provider [phone] Encounter Details Date Type Department Care Team (Late st Contact Info) Description 01/29/2023 Telephone [facility] Physical Therapy [address] [place] [address] Kuldip Dempsey PT Social History Tobacco Use Types Packs/Day [...] on file Legal Sex Female 6:55 PM CO FOUNDER AND DIRECTOR Gender Identity Female 06/06/2022 7:40 AM CO FOUNDER AND DIRECTOR Sexual Orientation Not on file documented as of this encounter Miscellaneous Notes * Telephone Encounter - Kuldip Dempsey, PT - 01/29/2023 7:47 AM CDT Emailed intake counselor regarding patient not meeting her frequency last week due to illness. She also called to cancel her appointment this morning due to going to the ER/injury. She stated she willcall back to reschedule. She has two remaining scheduled appointments this week. documented in this encounter Plan of Treatment Not on file documented as of this encounter Visit Diagnoses Not on filedocumented in this encounter Care Teams Lumber Cutter Relationship Specialty Start Date End Date Lorie Vanessa NP [address] [place] [address] PCP - General Family Practice 05/29/22 No, Physician 06/08/21 documented as of this encounter
--- OUTSIDE RECORDS SUMMARY | 2024-06-06 00:31 | XMS_ITS | Encounter Summary ---
Author Organization [facility] Healthcare Address [address] [place] [address] Care Team Providers Care Christmas Bell Ringer Name Role Phone No, Physician Unavailable Lorie Vanessa NP Primary Care Provider [phone] Reason for Visit * Reason Comments PT Treatment * Consultation (Routine) - Closed Specialty Diagnoses / Procedures Referred By Cyn burnett Referred To Contact Physical Therapy Diagnoses Left lumbar pain Justin Grover NP [address] [place] [address] Phone: tel: fax: [address] [phone] Referral ID Status Reason Start Date Expiration Date V isits Requested Visits Authorized [id number] Closed Evaluate and Treat 02/11/2023 03/12/2024 Encounter Details Date Type Department Care Team (Late st Contact Info) Description 02/15/2023 1:[address] [facility] Physical Therapy [address] [place] [phone] Poonam Thompson, DPAndrew Left lumbar pain [...] on file Legal Sex Female 6:55 PM RESEARCH QUALITY ASSURANCE ANALYST Gender Identity Female 06/06/2022 7:40 AM RESEARCH QUALITY ASSURANCE ANALYST Sexual Orientation Not on file documented as of this encounter Progress Notes * Poonam Thompson, DPT - 02/15/2023 1:30 PM CDT Images from the original note were not included. Physical Therapy Visit PT Daily Treatment Note 02/15/2023 Emily Guerrier 1995 ICD-9-CM ICD-10-CM 1. Left lumbar pain 724.2 M54.50 2. 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 Wearing a boot lead shop operator, but is allowed to remove with supine exercises. Followed back up with [facility] (02/11/23) and was referred back to PT [...] Progress Report Due: 8th visit Start Time: 1330 End Time: 1412 Patient ID verified. Subjective: Emily Guerrier states she was pretty sore after yesterday's visit. She states it was just the fact that I did more than she had been doing. She states right now her pain is a 6/10, but it was up to 7/10 earlier. Pt states today has been a little easier of a day at work on light duty. She states her pain has decreased to 3/10 intensity at its best in the past week and this is usually when she wakes up in the morning and hasn't moved around a whole lot, yet. Pain: 6/10 Left LBP. Objective: Pt presents wearing CAM boot on right foot with Croc slip on clogs on left foot. CAM boot creating a longer RLE. Suggested pt use a tennis shoe and purchase an Even Up for left shoe to level her leg lengths. Palpation: Hypertonus left L3-5 lumbar paraspinals and multifdi. Treatment Provided: See below. Soft Tissue Mobilization - Left Lumbar Paraspinals x5 minutes. Treatments 02/12/23 02/14/23 02/15/23 Visit Number/Visits Ordered 08/01 09/01 10/01 Received new script X (used 2 visits, new order for 6 visits total 8 visits) Posterior Pelvic Tilt HEP Supine Gluteal Sets Hooklying lower trunk rotation X30 ANA X30 ANA. Bent Knee Fallouts HEP ANA hip external rotation in hooklying Yellow 2x10 Lower Abdominal Marching 2x10 ANA 2x10 ANA. Lower abdominal contraction with alternate UE lift 2x10 ANA 2x10 ANA. Lower abdominal contraction with ANA shoulder extension in supine (latissimus pull down) Yellow 2x10 Clamshells HEP Yellow x10 ANA Bridging with ugandan ball 2x10 2x10. Wincing and grimacing end of second set. Prone alternating hip extension with lower abdominal contraction 2x10 ANA X10 ANA. Seated Nerve Glides L 10 ankle pumps x5 sets, R slumping with knee flexion & erect with knee extension to glide nerve 2x10 Standing frontal plane leaning To left x30 Stride stance transverse plane reaching R foot in front, R hand reaching to back of left side of chair Cold Pack- lumbar 10 min post exercise in supine 10 min post exercise in hook- lying. Added additionpillow case barrier at 5 minutes. Home Exercise Program: 01/24/23: Posterior Pelvic Tilt, (02/12/23 stopped due to foot fracture), Clamshells, Bent Knee Fallouts Assessment: Emily Guerrier put forth good effort throughout today's session. Noticed pt's face wincing and grimacing toward the end of second set of ugandan ball bridges. Pt states it was hurting her left lateral hip and anterior hip but wasn't too bad until the end. She states the prone hip extension was more tough and sore today but denied needing to stop. Pt was advised to use a tennis shoe and even up on left side to help improve leg length symmetry with wearing the CAM boot on right foot. Her gait was altered due to the leg length difference with the boot with more pronounced lumbarlateral flexion ANA and firmer foot contact on left LE. She verbalizes understanding. Due to pt's increased pain/soreness after last visit and reporting 6-7/10 pain intensity today, performed less exercises and ended with cold pack to back. Pt verbalizes the cold pack seems to help.Pt verbalized decreased pain to 4/10 upon exiting. Patient Response to Treatment: Improved left low back pain decreased 6/10 to 4/10. Rehab Prognosis/Potential: good. Patient would benefit from [...] girdle stabilization and strengthening. Consider progressing HEP. Poonam Thompson DPT Time Calculator Time-Based Code Calculator Minutes for Ther Ex/Ther Procedure (92258):: 27 minutes Minutes for Manual Therapy (99390):: 5 minutes Timed Code Treatment Minutes:: 32 minutes Total Treatment Time: 42 documented in this encounter Plan of Treatment Not on file documented as of this encounter Visit Diagnoses Diagnosis Left lumbar pain- Primary Lumbago Sprain of ligaments of lumbar spine, initial encounter documented in this encounter Care Teams Christmas Bell Ringer Relationship Specialty Start Date End Date Lorie Vanessa NP [address] [place] [address] PCP - General Family Practice 05/29/22 No, Physician 06/08/21 documented as of this encounter
--- OUTSIDE RECORDS SUMMARY | 2024-06-06 00:31 | XMS_ITS | Encounter Summary ---
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 She has not called to reschedule her visits after needing to go the ER earlier this week for an injury. Madina Gonzalez, PT documented in this encounter Plan of Treatment Not on file documented as of this encounter Visit Diagnoses Not on filedocumented in this encounter Care Teams Stone Banker Relationship Specialty Start Date End Date Lorei Vanessa NP [address] [place] [phone] PCP - General Family Practice 05/29/22 No, Physician 06/08/21 documented as of this encounter
--- OUTSIDE RECORDS SUMMARY | 2024-06-06 00:31 | XMS_ITS | Encounter Summary ---
Author Organization [facility] Address [address] [place] [address] Care Team Providers Care Math Coach Name Role Phone No, Physician Unavailable Lorie Vanessa NP Primary Care Provider [phone] Reason for Visit * Reason Comments Follow-up ER; broken foot; ; Encounter Details Date Type Department Care Team ([facility] st Contact Info) Description 01/30/2023 9:45 AM CDT Office Visit [facility] Primary Care at [address] [place] [address] Lorie Vanessa NP [address] [place] [phone] Closed displaced fracture of fifth metatarsal bone of right foot, initial encounter (Primary Dx); Sprain of right ankle, unspecified ligament, initial encounter Social History Tobacco Use Types Packs/Day Years Used Date Smoking Tobacco: Never Smokeless Tobacco: Never Tobacco Cessation:Counseling Given: Not Answered AUDIT-C Answer Date Recorded Q1: How often [...] file 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 Gender Identity Female 06/06/2022 7:40 AM MEDICAL SUPERVISOR Sexual Orientation Not on file documented as of this encounter Last Filed Vital Signs Vital Sign Reading Time Taken Comments Blood Pressure 137/82 01/30/2023 9:54 AM CDT Pulse 86 01/30/2023 9:54 AM CDT Temperature 36.8 ??C (98.2 ??F) 01/30/2023 9:54 AM CD T Respiratory Rate 16 01/30/2023 9:54 AM CDT Oxygen Saturation 98% 01/30/2023 9:54 AM CDT Inhaled Oxygen Concentration - - Weight 145 kg (319 lb 10.7 oz) 01/30/2023 9:54 A M CDT Height 162.6 cm (5' 4.02 ) 01/30/2023 9:54 AM CD T Body Mass Index 54.84 01/30/2023 9:54 AM CDT documented in this encounter Patient Instructions * Patient Instructions* Lorie Vanessa NP - 01/30/2023 9:45 AM CDT Can try ibuprofen in place of naproxen, do not exceed 800 mg 3 times a day and be sure to take withfood, stopping if GI upset occurs. You can also alternate extra-strength Tylenol with ibuprofen as directed as needed. Continue to wear walking boot. Rest extremity when able. Keep appointment with orthopedic surgeon. Go to ER if worsening or uncontrolled pain. documented in this encounter Progress Notes * Lorie Vanessa NP - 01/30/2023 9:45 AM CDT Images from the original note were not included. Assessment/Plan: Assessment/Plan Diagnoses and all orders for this visit: Closed displaced fracture of fifth metatarsal bone of right foot, initial encounter (Primary) Assessment & Plan: New diagnosis, recent injury Reviewed ER reports [...] to go to ER if worsening or uncontrolledpain Sprain of right ankle, unspecified ligament, initial encounter Assessment & Plan: New diagnosis, recent injury Reviewed ER reports [...] to go to ER if worsening or uncontrolledpain F/u if symptoms not improving or worsen. Strict return/ED precautions discussed. Subjective: Emily Guerrier is a 27 y.o. female here for an ER follow-up visit, evaluated on 01/26/23. She states she was walking across a cross walk when she rolled her ankle, causing her to fall. She sustained no other injuries. She was diagnosed with a closed non-displaced fracture of the fifth metatarsal bone of the right foot and right ankle sprain. She is taking naproxen, with incomplete pain relief, currently rates pain a 2 while sitting, a 6-7 with movement. She is scheduled to see an orthopedic surgeon at [facility] in [place]. She is currently wearing a walking boot. She is getting on Saturday, 3 days from today. HPI Chief Complaint Patient presents with Follow-up ER; broken foot; 01/26; Review of Systems Constitutional: Negative for chills and fever. HENT: Negative for sore throat. No loss of taste or smell. Respiratory: Negative for cough and shortness of breath. Gastrointestinal: Negative for diarrhea, nausea and vomiting. Musculoskeletal: Positive for arthralgias (right foot pain, fracture 5th metatarsal) and gait problem (wearing a walking boot). Negative for myalgias. Skin: Positive for color change (bruising). Negative for rash. Neurological: Negative for headaches. Objective: Vital signs were reviewed. Vitals: 01/30/23 0954 BP: 137/82 BP Location: Left arm Patient Position: Sitting Pulse: 86 Resp: 16 Temp: 36.8 ??C (98.2 ??F) TempSrc: Temporal SpO2: 98% Weight: (!) 145 kg (319 lb 10.7 oz) Height: 162.6 cm (5' 4.02 ) Physical Exam Vitals and nursing note reviewed. Constitutional: General: She is not in acute distress. Appearance: Normal appearance. She is not ill-appearing, toxic-appearing or diaphoretic. HENT: Head: Normocephalic and atraumatic. Eyes: General: No scleral icterus. Right eye: No discharge. Left eye: No discharge. Conjunctiva/sclera: Conjunctivae normal. Cardiovascular: Rate and Rhythm: Normal rate and regular rhythm. Heart sounds: Normal heart sounds. No murmur heard. Pulmonary: Effort: Pulmonary effort is normal. Breath sounds: Normal breath sounds. No wheezing, rhonchi or rales. Musculoskeletal: General: Swelling and tenderness present. No deformity or signs of injury. Right lower leg: No edema. Left lower leg: No edema. Comments: Skin intact to right foot without erythema abrasions or rash noted. Edema noted to lateral aspect of right foot, ecchymosis to lateral and dorsal aspect of right foot. Decreased active range of motion to right ankle and toes of right foot. Skin warm to touch, sensation intact. Brisk capillary refill noted. Palpable dorsalis pedis and posterior tibialis pulses. Skin: Coloration: Skin is not jaundiced or pale. Findings: Bruising (to lateral and dorsal aspect of right foot) present. No rash. Neurological: General: No focal deficit present. Mental Status: She is alert and oriented to person, place, and time. Psychiatric: Mood and Affect: Mood normal. Behavior: Behavior normal. Thought Content: Thought content normal. Lorie Vanessa [facility] Cosigned by Sultana Kahn MD at 02/01/2023 10:19 AM CDT documented in this encounter Miscellaneous Notes * Assessment & Plan Note - Lorie Vanessa NP - 02/01/2023 9:37 AM CDTAssociated Problem(s): Closed fracture of fifth metatarsal bone of right foot New diagnosis, recent injury Reviewed ER reports [...] to go to ER if worsening or uncontrolledpain * Assessment & Plan Note - Lorie Vanessa NP - 02/01/2023 9:36 AM CDTAssociated Problem(s): Sprain of right ankle New diagnosis, recent injury Reviewed ER reports [...] to go to ER if worsening or uncontrolledpain documented in this encounter Plan of Treatment Not on file documented as of this encounter Visit Diagnoses Diagnosis Closed displaced fracture of fifth metatarsal bone of right foot, initial encounter- Primary Sprain of right ankle, unspecified ligament, initial encounter documented in this encounter Discontinued Medications Medication Sig Discontinue Reason Start Date End Da te mupirocin (BACTROBAN) 2 % ointment APPLY TOPICALLY TO THE AFFECTED AREA TWICE DAILY 12/02/2022 01/30/2023 levalbuterol (XOPENEX HFA) 45 mcg/actuation inhalerIndications:Technical Buyer shalini cough Inhale 1-2 puffs every 6 (six) hours as needed for wheezing Other 11/01/2022 01/30/2023 documented as of this encounter Care Teams Math Coach Relationship Specialty Start Date End Date Lorie Vanessa NP [address] [place] [address] PCP - General Family Practice 05/29/22 No, Physician 06/08/21 documented as of this encounter
--- OUTSIDE RECORDS SUMMARY | 2024-06-06 00:31 | XMS_ITS | Encounter Summary ---
Author Organization [facility] Address [address] [place] [address] Care Team Providers Care Bread Wrapping Machine Feeder Name Role Phone No, Physician Unavailable Lorie Vanessa NP Primary Care Provider [phone] Reason for Visit * Reason Comments PT Treatment * Consultation (Routine) - Closed Specialty Diagnoses / Procedures Referred By Cyn burnett Referred To Contact Physical Therapy Diagnoses Left lumbar pain Justin Grover NP [address] [place] [address] Phone: tel: fax: [address] [phone] Referral ID Status Reason Start Date Expiration Date V isits Requested Visits Authorized [id number] Closed Evaluate and Treat 02/11/2023 03/12/2024 Encounter Details Date Type Department Care Team (Late st Contact Info) Description 02/14/2023 2:00 PM CDT Therapy [facility] Physical Therapy [address] [place] [phone] Jen Kumar, DPT Left lumbar pain (Primary Dx); Sprain of [...] on file Legal 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 Left lumbar pain 724.2 M54.50 2. Sprain of ligaments of lumbar spine, initial encounter 847.2 S33.5XXA Precautions: None ADJUSTOR: SAMMY TURNER PHONE NUMBER: [phone] CLAIM #: [id number] DATE OF INJURY: 01/20/2023 Visit Info Next MD Visit: 02/20/23 Progress Report Completed: 02/12/23 Progress Report Due: 10th visit Start Time: 1401 End Time: 1457 Patient ID verified. 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 She was pulling to her left and felt a sharp pain and a popping sensation in her left low back. Initially started PT on 01/24/23 and had two sessions before she broke her foot. She reports I rolled my ankle and fractured the 5th metatarsal at the base. Wearing a boot carton counter feeder, but is allowed to remove with supine exercises. Followed back up with [facility] (02/11/23) and was referred back to PT with an additional back diagnosis. PMH: Miriam Job Description- Nurse: Lifting 10-35 lbs Climbing 0-25% Grasping, pinching, holding 0-25% Lifting or carrying 0-25% Pushing or pulling 0-25% Reaching overhead 0-25% Sitting 0-25% Squatting, bending, kneeling 0-25% Standing 26-75% Walking or moving 26-75% Subjective: Emily Guerrier reports her pain is up a little today as she has been doing light duty-passing meds and lab work. She reports compliance with her home program. Pain: 11/03 Left LBP Objective: Palpation: Hypertonus left L3-5 lumbar paraspinals and multifdi. Treatment Provided: See below. Soft Tissue Mobilization - Left Lumbar Paraspinals x 8 minutes. Treatments 01/24/23 02/12/23 02/14/23 Visit Number/Visits Ordered 07/02 08/01 09/01 Received new script X (used 2 visits, new order for 6 visits total 8 visits) Posterior Pelvic Tilt 2x10 reps HEP Supine Gluteal Sets 2x10 reps Hooklying lower trunk rotation X30 ANA Bent Knee Fallouts X10 reps HEP ANA hip external rotation in hooklying Yellow 2x10 Lower Abdominal Marching X10 reps 2x10 ANA Lower abdominal contraction with alternate UE lift 2x10 ANA Lower abdominal contraction with ANA shoulder extension in supine (latissimus pull down) Yellow 2x10 Clamshells X10 reps HEP Yellow x10 ANA Bridging with vincentian ball 2x10 Prone alternating hip extension with lower abdominal contraction 2x10 ANA Seated Nerve Glides 5 sets x10 reps L 10 ankle pumps x5 sets, R slumping with knee flexion & erect with knee extension to glide nerve 2x10 Standing frontal plane leaning To left x30 Stride stance transverse plane reaching R foot in front, R hand reaching to back of left side of chair Cold Pack- lumbar 10' Post- Exercise 10 min post exercise in supine Home Exercise Program: 01/24/23: Posterior Pelvic Tilt, (02/12/23 stopped due to foot fracture), Clamshells, Bent Knee Fallouts Assessment: Emily Guerrier was able to fully participate in the therapy session. She is limited somewhat due to the fracture in her right foot. She was able to start slight flexion with left rotation in a pain-free ROM with standing reaches in a transverse plane. Patient Response to Treatment: Improved left low back pain decreased 6/10 sharp to 4/10 ache. Rehab Prognosis/Potential: good. Patient would benefit from [...] left lower extremity radicular complaints. -ongoing Plan: May try frontal plane and transverse plane pelvic drivers. Jen Kumar DPT Time Calculator Time-Based Code Calculator Minutes for Ther Ex/Ther Procedure (34445):: 38 minutes Minutes for Manual Therapy (08828):: 8 minutes Timed Code Treatment Minutes:: 46 minutes Total Treatment Time: 56 documented in this encounter Plan of Treatment Not on file documented as of this encounter Visit Diagnoses Diagnosis Left lumbar pain- Primary Lumbago Sprain of ligaments of lumbar spine, initial encounter documented in this encounter Care Teams Bread Wrapping Machine Feeder Relationship Specialty Start Date End Date Lorie Vanessa NP [address] [place] [address] PCP - General Family Practice 05/29/22 No, Physician 06/08/21 documented as of this encounter
--- OUTSIDE RECORDS SUMMARY | 2024-06-06 00:31 | XMS_ITS | Encounter Summary ---
Author Organization [facility] Healthcare Address [address] [place] [address] Care Team Providers Care Generator Switchboard Operator Name Role Phone No, Physician Unavailable Lorie Vanessa NP Primary Care Provider [phone] Encounter Details Date Type Department Care Team (Late st Contact Info) Description 02/25/2023 Patient Self-Triage [facility] HealthCare/ Physicians [address] [place] [address] Myckyet, Generic Provider [address] [place] [id number] Social History Tobacco Use Types Packs/Day [...] on file Legal Sex Female 6:55 PM MEDIA MONITOR Gender Identity Female 06/06/2022 7:40 AM MEDIA MONITOR Sexual Orientation Not on file documented as of this encounter Plan of Treatment Not on file documented as of this encounter Visit Diagnoses Not on filedocumented in this encounter Care Teams Generator Switchboard Operator Relationship Specialty Start Date End Date Lorie Vanessa NP [address] [place] [id number] PCP - General Family Practice 05/29/22 No, Physician 06/08/21 documented as of this encounter
--- OUTSIDE RECORDS SUMMARY | 2024-06-06 00:31 | XMS_ITS | Encounter Summary ---
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
--- OUTSIDE RECORDS SUMMARY | 2024-06-06 00:31 | XMS_ITS | Encounter Summary ---
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 ??Stable alignment of a minimally displaced intra-articular fracture involving the base of the 5th metatarsal with mild progressive interval healing changes since the previous study with a persistent distinct visible fracture line. 2. ??No new abnormalities identified. Electronically signed by: Jacky Laughlin DO Narrative 02/15/2023 2:36 PM CDT EXAM: XR FOOT RIGHT 3 OR MORE VIEWS CLINICAL HISTORY: Right foot pain. ??Follow-up fracture. COMPARISON: Compared with previous right foot study dated 02/04/2023. FINDINGS: Stable alignment of a minimally displaced intra-articular fracture involving the base of the 5th metatarsal in zone 1 with suggestion of mild progressive interval healing changes with the fracture line appearing slightly less distinct although remaining visible. ??No new/acute fractures or acute dislocation identified. Stable appearing minimal arthrosis involving the 1st metatarsophalangeal joint with the remainder the joint spaces appearing unremarkable. ??Stable small calcaneal spur at the distal Achilles tendon insertion. ??Persistent mild soft tissue swelling overlying the lateral aspect the proximal 5th metatarsal. Procedure Note Jacky Laughlin DO - 02/15/2023 EXAM: XR FOOT RIGHT 3 OR MORE VIEWS CLINICAL HISTORY: Right foot pain. Follow-up fracture. COMPARISON: Compared with previous right foot study dated 02/04/2023. FINDINGS: Stable alignment of a minimally displaced intra-articular fracture involving the base of the 5th metatarsal in zone 1 with suggestion of mild progressive interval healing changes [...] the lateral aspect the proximal 5th metatarsal. IMPRESSION: 1. Stable alignment of a minimally displaced intra-articular fracture involving the base of the 5th metatarsal with mild progressive interval healing changes since the previous study with a persistent distinct visible fracture line. 2. No new abnormalities identified. Electronically signed by: Jacky Laughlin DO Venessa Robles NP [facility] XR PROCEDU RES Final Result documented in this encounter Visit Diagnoses Diagnosis Right foot pain Pain in soft tissues of limb documented in this encounter Care Teams People Greeter Relationship Specialty Start Date End Date Lorie Vanessa NP [address] [place] [phone] PCP - General Family Practice 05/29/22 No, Physician 06/08/21 documented as of this encounter
--- OUTSIDE RECORDS SUMMARY | 2024-06-06 00:31 | XMS_ITS | Encounter Summary ---
Author Organization [facility] Healthcare Address [address] [place] [address] Care Team Providers Care Boom Man Name Role Phone No, Physician Unavailable Lorie Vanessa NP Primary Care Provider [phone] Reason for Visit * Reason Comments PT Re-Eval * Consultation (Routine) - Closed Specialty Diagnoses / Procedures Referred By Cyn burnett Referred To Contact Physical Therapy Diagnoses Left lumbar pain Justin Grover NP [address] [place] [address] Phone: tel: fax: [address] [phone] Referral ID Status Reason Start Date Expiration Date V isits Requested Visits Authorized [id number] Closed Evaluate and Treat 02/11/2023 03/12/2024 Encounter Details Date Type Department Care Team (Late st Contact Info) Description 02/12/2023 3:30 PM CDT Therapy [facility] [address] [place] [phone] Madina Kenney, PT Left lumbar pain (Primary Dx); Sprain [...] on file Legal Sex Female 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 Physical Therapy Progress Note 02/12/2023 Emily Guerrier 1995 27 y.o. female Bhakti Bryson MSN, DRAW TENDER-DC and Justin Grover APRN, NETWORK OPERATIONS ANALYST [address] [place] [address] Case Adjustor: Stephania Doyle ICD-9-CM ICD-10-CM 1. Left lumbar pain 724.2 M54.50 Ambulatory referral order to Physical Therapy - 2. Sprain of ligaments of lumbar spine, initial encounter 847.2 S33.5XXA Past Medical History: Diagnosis Date GERD (gastroesophageal reflux disease) Irritable bowel syndrome Migraines Motion sickness Nausea Polycystic ovary syndrome Postural orthostatic tachycardia syndrome (POTS) Past Surgical History: Procedure Laterality Date BAND HEMORRHOIDECTOMY COLONOSCOPY ESOPHAGOGASTRODUODENOSCOPY Number of PT Visits: 3 Reporting Period: 01/24/23 to 02/12/2023 Start Time: 16:00 (arrived late due to traffic) End Time: 16:33 Subjective: History of Present Condition -- reviewed 02/12/23 Emily Guerrier reports that 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 She was instructed by the [...] treatmentfor this as well. 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 Since her last visit of PT and since fracturing her foot, has tried to do some exercises here and there as able. Recently followed back up with [facility] (02/11/23) and was referred back to PT with another diagnosis. Diagnostic Tests No current imaging. X-ray from : Lumbar spine: There are no fractures. There is mild L1-L2 degenerative disc disease. Alignment is normal. Previous Treatment: PT for low back as teenager. Pain 02/12/23 Current pain ratin/10 (was 7/10) At best pain ratin/10 At worst pain rating: (was 8/10). Location: Consistent left throbbing, sharp low back with occasional shooting pains down left anterior leg below the left knee. Exacerbating Factors: Walking, bending forward, prolonged sitting, sitting in a certain position. Relieving Factors: Heat, medication. Other Symptoms: Constant left heel/medial ankle numbness/tingling. Special Questions: Pt denies bowel and bladder changes,saddle paresthesia, pain provocation with cough/sneeze/Valsalva, unexplained weight loss >= 10 lbs, night pain Function Current Functional Deficits 02/12/23: currently on light duty and will be re- evaluated next Saturday for this. Difficulty sitting more than 10 minutes. Difficulty walking more than 10 minutes. Pain with driving car, bending, reaching forward. Current Functional Deficits: Currently on light duty. Difficulty tolerating sitting greater than 10minutes, walking greater than 10 minutes, driving in car, bending forward, reaching in front of body. 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 Required to lift up/pull 100-200 pounds frequently and occasionally up to 300 pounds. Patient Goal: Symptom free or at least improved. Abuse and Neglect: No concerns noted by patient or therapist. Objective: Outcome Measure: Oswestry Disability Index (RADHA): 54% impaired Posture: Hinge L4/5 with skin crease, slight [...] boot Lumbar AROM (% of Full) Flexion 25%* Extension 25%* Right Lateral Flexion 100% Left Lateral Flexion 50%* Right Rotation 75% Left Rotation 50%* *-denotes pain Movement Analysis: Limited to minimal motion noted below L4/5 during standing trunk flexion and extension AROM, guarded motion with all trunk motion especially flexion/extension/left lateral flexion/left rotation. Neurological Tests: Babinski (-), Clonus (-) Reflexes: 2+ throughout bilateral L3-S1 lower extremity reflexes Myotomes Right Left Iliopsoas (L1/2) 5/5 5/5 Quadriceps (L3) 5/5 5/5 Anterior Tibialis (L4) 5/5 4/5 Extensor Hallicus. Longus (L5) 5/5 4/5 Gluteus Medius (L5) 4+/5 4-/5 Peroneals (L5/S1) 5/5 5/5 Hamstrings (L5-S2) 5/5 5/5 Gastrocnemius (S1/2) NT/5 NT/5 Other: Reports of increased pain noted with combined lumbar flexion and sidebending compared to combined flexion and right sidebending and extension left/right sidebending. Reports of increased left lower extremity numbness/tingling with passive straight leg raise liftingat approximately 40-60 degrees of hip flexion. Reports of increased left lower extremity numbness/tingling [...] L3-5 lumbar paraspinals and multifdi. Treatment Provided: Discussed re-evaluation findings and treatment plan with patient. Performed 2x10x5 holds of gluteal sets, 2x10x5 holds, 2x10 bent knee fall outs each lower extremity, 1x10 each LE abdominal marches. Initiated HEP of gluteal sets, posterior pelvic tilts, and bent knee fall outs. Reviewed prior home exercise program. Issued handout. Assessment: Therapy Impression: Emily Guerrier presents back to PT this date after a 3 week lapse in care from fracturing her foot shortly after she started PT at the end of December. She continues to demonstrate a loss of lumbar AROM in all directions, especially flexion and extension, with reports of pain at attempts at end-range movements. She demonstrates an antalgic gait and right trunk lean during ambulation and in static standing and this is exacerbated by her ankle/ foot immobilization boot. She also exhibits appreciable roberts left L4 myotomal weakness and 0/5 on Wadell's Testing. These deficits are affecting her ability to tolerate prolonged standing, walking, sitting, driving in the car, lifting objects, forward reaching, and completing her occupational demands. Her subjective and objective remained consistent since her previous bout of therapy, and she was cooperative during today's session. She will benefit from skilled PT addressing her objective and functional deficits. STG to be met by 03/13/23 -- extended due to lapse in care after patient fracturing her foot 1) Patient will demonstrate normalized roberts left L4 myotomal strength to improve her gait mechanics.-- ONGOING 2) Patient will demonstrate at least 75% of full lumbar AROM in all directions with no greater than2/10 low back pain to improve her tolerance for lifting. -- ONGOING 3) Patient will be able to stand [...] left lower extremity radicular complaints.-- ONGOING Plan: Physical Therapy Interventions: Therapeutic Exercise, Therapeutic Activity, Neuromuscular Reeducation, Gait Training, Manual Therapy, Hot/Cold, and Interferential Electrical Stimulation Frequency/Duration 3 times per week for 2 weeks Thank you for this referral. Madina Gonzalez, PT Cc: Stephania Doyle - Case Adjustor Time-Based Code Calculator Minutes for Ther Ex/Ther Procedure (43884):: 33 minutes Timed Code Treatment Minutes:: 33 minutes Total Treatment Time: 33 documented in this encounter Plan of Treatment Not on file documented as of this encounter Visit Diagnoses Diagnosis Left lumbar pain- Primary Lumbago Sprain of ligaments of lumbar spine, initial encounter documented in this encounter Orders Outpatient Referral Count Last Ordered Date st Ordered Date AMB REFERRAL ORDER TO PHYSICAL THERAPY 1 documented in this encounter Care Teams Boom Man Relationship Specialty Start Date End Date Lorie Vanessa NP [address] [place] [id number] PCP - General Family Practice 05/29/22 No, Physician 06/08/21 documented as of this encounter
--- OUTSIDE RECORDS SUMMARY | 2024-06-06 00:31 | XMS_ITS | Encounter Summary ---
Author Organization [facility] Address [address] [place] [address] Care Team Providers Care Yarn Sorter Name Role Phone No, Physician Unavailable Lorie Vanessa NP Primary Care Provider [phone] Encounter Details Date Type Department Care Team (Late st Contact Info) Description 02/18/2023 Telephone [facility] [place] [address] [facility] [address] [place] [address] Lorie Vanessa NP [address] [place] [phone] Social History Tobacco Use Types Packs/Day [...] on file Legal Sex Female 6:55 PM BUN ICER Gender Identity Female 06/06/2022 7:40 AM BUN ICER Sexual Orientation Not on file documented as of this encounter Ordered Prescriptions Prescription Sig Dispense Quantity Refills Last Filled Start Date End Date norethindrone (MICRONOR) 0.35 mg tablet Take 1 tablet (0.35 mg total) by mouth daily 28 tablet 1 02/18/2023 05/17/2023 documented in this encounter Miscellaneous Notes * Telephone Encounter - Lorie Vanessa NP - 02/18/2023 1:02 PM CDT Refills sent to pharmacy for OCP per patient request. documented in this encounter Plan of Treatment Not on file documented as of this encounter Visit Diagnoses Not on filedocumented in this encounter Discontinued Medications Medication Sig Discontinue Reason Start Date End Da te norethindrone (MICRONOR) 0.35 mg tablet Take 1 tablet (0.35 mg total) by mouth daily Reorder 05/12/2021 02/18/2023 documented as of this encounter Care Teams Yarn Sorter Relationship Specialty Start Date End Date Lorie Vanessa NP [address] [place] [id number] PCP - General Family Practice 05/29/22 No, Physician 06/08/21 documented as of this encounter
--- OUTSIDE RECORDS SUMMARY | 2024-06-06 00:31 | XMS_ITS | Encounter Summary ---
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 Gender Identity Female 06/06/2022 7:40 AM GLOBAL MARKETING OPERATIONS MANAGER Sexual Orientation Not on file documented [...] ODT (ZOFRAN-ODT) 8 mg disintegrating tabletIndications:N ausea Take 1 tablet (8 mg total) by mouth every 8 (eight) hours as needed for nausea or vomiting 30 tablet 1 12/11/[address] (PROTONIX) 40 mg EC [...] VIEWS Schedule Routine, Read Routine (OP Routine) 02/04/2023 2:15 PM CDT Right foot pain documented in this encounter Results * XR Foot Right 3 or More Views (02/04/2023 2:15 PM CDT) Anatomical Region Laterality Modality Lower Extremities, Foot Right Computed Radiography 02/04/2023 4:14 PM CDT Impressions 02/04/2023 4:14 PM CDT Early healing of a minimally displaced, intra-articular fracture of the right 5th metatarsal base. Electronically signed by: Ray Cruz M.D. Narrative 02/04/2023 4:14 PM CDT EXAMINATION: XR FOOT RIGHT 3 OR MORE VIEWS HISTORY: Right 5th metatarsal fracture FINDINGS: 3 view weightbearing examination the right foot is compared with a study from 01/26/2023. ??There is early resorption along the fracture line of a minimally displaced, intra-articular fracture of the 5th metatarsal base. ??This can be a sign of early healing. 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 Procedure Note Ray Cruz MD - 02/04/2023 EXAMINATION: XR FOOT RIGHT 3 OR MORE VIEWS HISTORY: Right 5th metatarsal fracture FINDINGS: 3 view weightbearing examination the right foot is compared with a study from 01/26/2023. There is early resorption along the fracture line of a minimally displaced, intra-articular fracture of the 5th metatarsal base. This can be a sign of early healing. 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 IMPRESSION: Early healing of a minimally displaced, intra-articular fracture of the right 5th metatarsal base. Electronically signed by: Ray Cruz M.D. Venessa Robles NP IMG XR PROCEDU RES Final Result documented in this encounter Visit Diagnoses Diagnosis Right foot pain Pain in soft tissues of limb documented in this encounter Care Teams Lead Miner Blasting Relationship Specialty Start Date End Date Lorie Vanessa NP [address] [place] [id number] PCP - General Family Practice 05/29/22 No, Physician 06/08/21 documented as of this encounter
--- OUTSIDE RECORDS SUMMARY | 2024-06-06 00:31 | XMS_ITS | Encounter Summary ---
Author Organization [facility] Address [address] [place] [address] Phone Care Team Providers Care Shot Lighter Name Role Phone No, Physician Unavailable Lorie Vanessa NP Primary Care Provider [phone] Reason for Visit * Reason Comments Pain Encounter Details Date Type Department Care Team (Late st Contact Info) Description 02/04/2023 1:30 PM CDT Office Visit [facility] Orthopaedic Surgery [address] [place] [address] [place] [phone] [place] [address] Closed displaced fracture of fifth metatarsal bone of right foot, initial encounter (Primary Dx); Right foot pain Social History Tobacco Use Types Packs/Day Years [...] file 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 Closed displaced fracture of fifth metatarsal bone of right foot, initial encounter 2. Right foot pain RECOMMENDATIONS: Immobilization: You are to wear the short walking boot at all times when standing and walking. You may take the boot off for rest, icing, and hygiene purposes. Medications: May take over the counter NSAID: Advil (Ibuprofen) 3 tabs three times a day with food for 7-10 days - OR- Aleve (Naproxen) 2 tabs twice daily with food for 7 -10 days. It is important to take this medication with food to prevent potential side effects, such as stomach upset or ulcers. Do not take this medication if you have been instructed by your primary care physician to not take due to medical reasons. You may take tylenol 1-2 tabs three times/day as needed for additional pain control Ice the affected area for 20mins after activities and as needed for pain/swelling. Activity modification: No running, jumping, kicking, climbing, high impact activities. Follow up: 4-5 weeks If your symptoms worsen, please reach your provider through the office at [phone]. If you need to reschedule your appointment, please call [phone]. TONY Smith [facility] Department of Orthopaedics Working in collaborative practice with Pavan Alarcon M.D. Portions of this note were dictated using [employer] Direct speech recognition software. Please excuse any legal transcriptionist errors. documented in this encounter Progress Notes * Venessa De La Cruz NP - 02/04/2023 1:30 PM CDT Images from the original note were not included. NEW PATIENT VISIT [facility] CHIEF COMPLAINT Right foot pain REFERRING PROVIDER Lorie Vanessa NP HISTORY OF PRESENT ILLNESS Emily Guerrier is a 27 y.o. who presents to the orthopedic clinic with right foot pain. She states she tripped while crossing the road, causing her foot roll underneath her and her to fall to the ground. She would immediate onset of pain. She reports swelling and bruising that is still persistent but the swelling has improved. She went to the emergency room the day of her injury and was diagnosed with a fracture of her foot. She states they did not have a boot so she ordered one online. Sheis been in a boot as well as taking Tylenol, prescription naproxen, and Flexeril. She is also been trying to put compression over the area overnight. She states the pain is still persistent. She has a history of a 4th metatarsal fracture in this foot in 2016 that was managed nonoperatively. She hasbeen doing well up until this most recent injury. Original injury/onset of pain was: 01/26/2023 She is now 9 days from injury PAST MEDICAL HISTORY She has a past medical history of GERD (gastroesophageal reflux disease), Irritable bowel syndrome,Migraines, Motion sickness, Nausea, Polycystic ovary syndrome, and Postural orthostatic tachycardiasyndrome (POTS). PAST SURGICAL HISTORY She has a past surgical history that includes Band hemorrhoidectomy; Colonoscopy; and Esophagogastroduodenoscopy. INITIAL REVIEW OF MEDICATIONS She has a current medication list which includes the following prescription(s): amoxicillin, cetirizine, cholecalciferol, clonazepam, cromolyn, famotidine, fluconazole, lamotrigine, magnesium oxide, norethindrone, ondansetron odt, pantoprazole dr, propranolol la, sertraline, sucralfate, and triamcinolone. ALLERGIES She is allergic to adhesive, fluoxetine, and nitrofurantoin. SOCIAL HISTORY She reports that she has never smoked. She has never used smokeless tobacco. FAMILY HISTORY Her family history includes COPD in her mother; Diabetes in her maternal grandmother; Heart failurein her brother; Hypertension in her mother; Mental illness in her maternal grandmother; Squamous cell carcinoma in her father. PHYSICAL EXAMINATION CONSTITUTIONAL: Well-appearing, in no apparent distress PSYCHIATRIC: Alert, cooperative, appropriate mood and affect SKIN: Intact. No lesions or rashes on exposed skin. MUSCULOSKELETAL: Exam limited to right Foot and Ankle Inspection: There is swelling noted over the lateral aspect of the foot and ankle. Scattered areas of ecchymosis noted throughout the lateral foot and ankle, settling at the base of the toes. No deformity. Able to walk with antalgic gait. Palpation: Strong DP and PT pulses. There is tenderness over the base of the 5th metatarsal. No pain over the distal fibula. Minimal pain over the lateral ankle ligaments. No pain over the medial ankle or elsewhere in the foot. Range of Motion: Full including plantar flexion, dorsiflexion, inversion, and eversion. Strength: 5/5 ankle plantar flexion, eversion, and inversion. 4/5 resisted ankle dorsiflexion. Pain with resisted eversion. 5/5 great toe plantar flexion and dorsiflexion NEUROLOGIC: Sensation is intact to light touch in the involved extremity. VASCULAR: Brisk capillary refill intact distally in the involved extremity. REVIEW OF IMAGING/STUDIES X-rays ordered and interpreted by myself in the office today including 3 views of the right foot. Minimally displaced fracture of the base of the 5th metatarsal with likely early resorption. Overall alignment unchanged when compared to prior. No other osseous abnormality identified. X-rays reviewed dated 01/26/2023 and interpreted by myself in the office today including three views of the right foot. There is a minimally displaced fracture of the base of the 5th metatarsal. No other acute osseous abnormality noted IMPRESSION/DIAGNOSIS Minimally displaced fracture of the base of the 5th metatarsal TREATMENT/PLAN The physical exam findings, x-rays and impression are reviewed. Based on the findings, signs and symptoms are consistent with the above impression. I have discussed treatment options with patient. She was given a new short walking boot to be worn at all times when standing and walking. She can take the boot off for rest, icing, and hygiene purposes. She can take the prescription naproxen and Flexeril that she was previously prescribed as needed for pain. She also can take extra-strength Tylenol, 1000 mg, every 8 hours as needed for pain. Sheis to ice for 20 minutes after activities and as needed for pain and swelling. She is had no running, jumping, kicking, climbing, high impact activities at this time. She states she was already on light duty for work for her back and requests a note to remain on light duty and wear her boot until her next follow-up visit. A note was provided. She will follow up in 4-5 weeks for repeat x-rays, three views of the right foot. Patient requesting something stronger for pain but explained that per policy, APPs cannot write forcontrolled substances. Recommended she reach out to her PCP regarding this. The patient is in agreement with above treatment plan and all questions are answered today. TONY Smith [facility] Department of Orthopaedics Working in collaboration with Pavan Alarcon M.D. Portions of this note were dictated using [employer] Direct speech recognition software. Please excuse any legal transcriptionist errors. Cosigned by Pavan Alarcon MD at 02/04/2023 4:43 PM CDT documented in this encounter Plan [...] bone of right foot, initial encounter- Primary Right foot pain Pain in soft tissues of limb Right foot pain Pain in soft tissues of limb documented in this encounter Care Teams Shot Lighter Relationship Specialty Start Date End Date Lorie Vanessa NP [address] [place] [id number] PCP - General Family Practice 05/29/22 No, Physician 06/08/21 documented as of this encounter
--- OUTSIDE RECORDS SUMMARY | 2024-06-06 00:31 | XMS_ITS | Encounter Summary ---
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 There was a new diagnosis code added from the new script, but it is the same injury and workman's comp case as previous. Madina Gonzalez, PT documented in this encounter Plan of Treatment Not on file documented as of this encounter Visit Diagnoses Not on filedocumented in this encounter Care Teams Scouring Machine Operator Relationship Specialty Start Date End Date Lorie Vanessa NP [address] [place] [id number] PCP - General Family Practice 05/29/22 No, Physician 06/08/21 documented as of this encounter
--- OUTSIDE RECORDS SUMMARY | 2024-06-06 00:31 | XMS_ITS | Encounter Summary ---
Author Organization [facility] Address [address] [place] [address] Phone Care Team Providers Care Typist Name Role Phone No, Physician Unavailable Lorie Vanessa NP Primary Care Provider Encounter Details Date Type Department Care Team (Late st Contact Info) Description 02/15/2023 Orders Only 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
--- OUTSIDE RECORDS SUMMARY | 2024-06-06 00:32 | XMS_ITS | Encounter Summary ---
Author Organization [facility] Address [address] [place] [address] Care Team Providers Care Weighmaster Lead Name Role Phone No, Physician Unavailable Lorie Vanessa NP Primary Care Provider [phone] Encounter Details Date Type Department Care Team (Late st Contact Info) Description 01/03/2023 Orders Only [facility] Gastroenterology at [address] [place] [address] Cj Thomas MD [address] [place] [address] [address] [place] [address] Nausea and vomiting, unspecified vomiting type (Primary Dx); Abdominal pain Social History Tobacco Use Types Packs/Day Years Used Date Smoking Tobacco: Never Smokeless Tobacco: Never AUDIT-C Answer Date Recorded Q1: How often do you have a drink containing alc ohol? Monthly or less 01/03/2023 Q2: How many drinks containi ng alcohol do you have on a typical day when you are drinking? 1 or 2 01/03/2023 Q3: How often do you have si x or more drinks on one occasion? 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 Gender Identity Female 06/06/2022 7:40 AM LOG PEELER Sexual Orientation Not on file documented as of this encounter Ordered Prescriptions Prescription Sig Dispense Quantity Refills Last Filled Start Date End Date sucralfate (CARAFATE) 1 gram tabletIndications: Nausea and vomiting, unspecified vomiting type,Abdominal pain Take 1 tablet (1 g total) by mouth 4 (four) times a day Take 1 hour before meals and at bedtime 120 tablet 3 01/03/2023 4 documented in this encounter Plan of Treatment Not on file documented as of this encounter Visit Diagnoses Diagnosis Nausea and vomiting, unspecified vomiting type- Primary Abdominal pain Abdominal pain, unspecified site documented in this encounter Care Teams Weighmaster Lead Relationship Specialty Start Date End Date Lorie Vanessa NP [address] [place] [address] PCP - General Family Practice 05/29/22 No, Physician 06/08/21 documented as of this encounter
--- OUTSIDE RECORDS SUMMARY | 2024-06-06 00:32 | XMS_ITS | Encounter Summary ---
Author Organization [facility] Address 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 REASON FOR CALL: following up on VM left yesterday inform pt she needs to be seen at CC since Lorie is not in the office. CC # was provided again. Pt is still on schedule as walk in at this time sincewe have been unable to confirm she received the messages. documented in this encounter Plan of Treatment Not on file documented as of this encounter Visit Diagnoses Not on filedocumented in this encounter Care Teams Apprentice Plumber Relationship Specialty Start Date End Date Lorie Vanessa NP [address] [place] [address] PCP - General Family Practice 05/29/22 No, Physician 06/08/21 documented as of this encounter
--- OUTSIDE RECORDS SUMMARY | 2024-06-06 00:32 | XMS_ITS | Encounter Summary ---
Author Organization [facility] Address [address] [place] [address] Care Team Providers Care Terminal Operations Manager Name Role Phone No, Physician Unavailable Lorie Vanessa NP Primary Care Provider [phone] Reason for Visit * Reason Comments Foot Pain Fall Encounter Details Date Type Department Care Team (Late st Contact Info) Description 01/26/2023 7:06 PM CDT - 01/26/2023 10:13 PM CDT Emergency [facility] Emergency Department [address] [place] [address] Closed nondisplaced fracture of fifth metatarsal bone of right foot, initial encounter (Primary Dx); Sprain of right ankle, unspecified ligament, initial encounter Discharge Disposition: Discharge to home [...] file 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 Gender Identity Female 06/06/2022 7:40 AM SUPERVISOR CIGAR MAKING MACHINE Sexual Orientation Not on file documented as of this encounter Last Filed Vital Signs Vital Sign Reading Time Taken Comments Blood Pressure 130/90 01/26/2023 10:10 PM CDT Pulse 70 01/26/2023 10:10 PM CDT Temperature 36.8 ??C (98.3 ??F) 01/26/2023 6:01 PM CD T Respiratory Rate 19 01/26/2023 6:01 PM CDT Oxygen Saturation 100% 01/26/2023 10:10 PM CDT Inhaled Oxygen Concentration - - Weight 131.5 kg (290 lb) 01/26/2023 6:01 PM CDT Height - - Body Mass Index 49.75 12/11/2022 2:28 PM CDT documented in this encounter Discharge Instructions * Discharge Instructions* Eve Hendrix NP - 01/26/2023 9:51 PM CDT You do not have a broken at the base of your little toe, you also sprained her ankle. prain your ankle. Ice it a few times today and tomorrow, keep it wrapped with an LELAND wrap except when showering, and keep it elevated as much as possible. Use crutches as needed for comfort. Most sprains take 3-4 weeks to fully heal, but severe sprains can take longer to heal. Will take approximately 4-6 weeks for the bone in her foot to heal If in 1 week you are not starting to improve call your doctor or theclinic below to get an appointment. * Attachments The following attachments cannot be sent through Care Everywhere. * SPRAIN, ANKLE, WITH X-RAY (SAO TOMEAN) * Foot Fracture in Adults (Discharge Care) (Solomon Islander) documented in this encounter Medications at Time [...] daily if symptoms persist 16.9 mL 09/04/2022 amoxicillin (AMOXIL) 500 mg tablet/capsuleIndic ations:Prophylaxis, [...] to prevent recurrence 15 tablet 12/03/2022 3 levalbuterol (XOPENEX HFA) 45 mcg/actuation inhalerIndications: Chronic cough Inhale 1-2 puffs every 6 (six) hours as needed for wheezing 1 each 3 11/01/2022 3 magnesium oxide (MAG-OX) 400 mg (241.3 mg elemental magnesium) tablet TAKE 1 TABLET(400 MG) BY MOUTH DAILY 90 tablet 1 01/22/2023 4 mupirocin (BACTROBAN) 2 % ointment APPLY TOPICALLY TO THE AFFECTED AREA TWICE DAILY 12/02/2022 3 norethindrone (MICRONOR) 0.35 mg tablet Take [...] documented in this encounter ED Notes * Eev Hendrix NP - 01/26/2023 8:34 PM CDT Images from the original note were not included. HPI Chief Complaint Patient presents with Foot Pain Fall 27 y.o. female with PMH of GERD (gastroesophageal reflux disease), Irritable bowel syndrome, Migraines, Motion sickness, Nausea, Polycystic ovary syndrome, and Postural orthostatic tachycardia syndrome (POTS) who presents to the ED From home. Pt stated walking across a cross walk on some uneven payment and twisted her right ankle/foot and fell. Pt stated not being able to put any weight on her foot. Pt rated pain 10/10. Pt has swelling to ankle. She also notes an abrasion to her right knee fromanother recent fall. Denies fever, chills, CP, SOB, or other injury. Patient History: Patient Active Problem List Diagnosis Date Noted Hiatal hernia 01/09/2023 Morbid obesity with BMI of 50.0-59.9, adult (HCC) 12/12/2022 Vitamin D deficiency 12/12/2022 Lipid screening 12/12/2022 Annual physical exam 12/12/2022 Chronic left-sided low back pain without sciatica 09/05/2022 Acute pain of right knee 09/05/2022 Constipation 08/21/2022 Diarrhea 08/21/2022 Gastroesophageal reflux disease without esophagitis 08/21/2022 Family history of CHF (congestive heart failure) 07/13/2022 Right upper quadrant pain 07/11/2022 Amenorrhea 06/09/2022 Need for vaccination 06/09/2022 Nausea 04/15/2022 Frequent infections 04/15/2022 Tachycardia, unspecified 04/15/2022 Dizziness 04/15/2022 Orthostatic hypotension 04/15/2022 Hemorrhoids 04/15/2022 GALEANO (dyspnea on exertion) 04/15/2022 PCOS (polycystic ovarian syndrome) 07/02/2018 Past Medical History: Diagnosis Date GERD (gastroesophageal reflux disease) Irritable bowel syndrome Migraines Motion sickness Nausea Polycystic ovary syndrome Postural orthostatic tachycardia syndrome (POTS) Past Surgical History: Procedure Laterality Date BAND HEMORRHOIDECTOMY COLONOSCOPY ESOPHAGOGASTRODUODENOSCOPY Family History Problem Relation Age of Onset Hypertension Mother COPD Mother Squamous cell carcinoma Father Heart failure Brother Diabetes Maternal Grandmother Family history of diabetes mellitus - (Added by TW Conv) Mental illness Maternal Grandmother Family history of mental disorder - (Added by TW Conv) Social History Tobacco Use Smoking status: Never Smokeless tobacco: Never Vaping Use Vaping Use: Never used Substance and Sexual Activity Alcohol use: Not on file Drug use: Not on file Sexual activity: Not on file Social History Social History Narrative Merged History Encounter Lives with parents : (Added by TW Conv) Currently in 11th grade : (Added by TW Conv) Sibling : (Added by TW Conv) Pets/Animals: Dog (Added by TW Conv) Pets/Animals: Cat (Added by TW Conv) Review of Systems Review of Systems Musculoskeletal: Positive for arthralgias, gait problem and joint swelling. All other systems reviewed and are negative. Physical Exam ED Triage Vitals Temp Pulse Resp BP SpO2 01/26/23 1801 01/26/23 1801 01/26/23 1801 01/26/23 1804 01/26/231800 36.8 ??C (98.3 ??F) 95 19 138/86 98 % Temp src Heart Rate Source Patient Position BP Location FiO2 (%) 01/26/231800 -- -- -- -- Oral Height Height Method Weight Weight Method -- -- 01/26/231800 -- 131.5 kg (290 lb) Physical Exam Vitals and nursing note reviewed. Constitutional: General: She is not in acute distress. Appearance: She is well-developed. She is not ill-appearing. HENT: Head: Normocephalic and atraumatic. Eyes: Conjunctiva/sclera: Conjunctivae normal. Cardiovascular: Rate and Rhythm: Normal rate and regular rhythm. Pulses: Dorsalis pedis pulses are 2+ on the right side. Posterior tibial pulses are 2+ on the right side. Heart sounds: No murmur heard. Pulmonary: Effort: Pulmonary effort is normal. No respiratory distress. Breath sounds: Normal breath sounds. Abdominal: Palpations: Abdomen is soft. Tenderness: There is no abdominal tenderness. Musculoskeletal: General: Swelling, tenderness and signs of injury present. No deformity. Cervical back: Neck supple. Right ankle: No swelling, deformity, ecchymosis or lacerations. Tenderness present. Normal range ofmotion. Left ankle: Normal. Right foot: Decreased range of motion. Feet: Feet: Right foot: Skin integrity: Skin integrity normal. Skin: General: Skin is warm and dry. Capillary Refill: Capillary refill takes less than 2 seconds. Findings: Bruising present. Neurological: General: No focal deficit present. Mental Status: She is alert and oriented to person, place, and time. Motor: No weakness. Psychiatric: Mood and Affect: Mood normal. MDM Medical Decision Making Differential Dx: Musculoskeletal sprain strain, fracture break dislocation, contusion Plan: X-ray right foot ankle, no walking boot available in hospital at this time. Will give her a aircast, hard sole shoe and crutches. Labs Reviewed - No data to display XR Ankle Right 3 or More Views (Results Pending) XR Foot Right 3 or More Views (Results Pending) BP 130/90 Pulse 70 Temp 36.8 ??C (98.3 ??F) (Oral) Resp 19 Wt 131.5 kg (290 lb) SpO2 100% BMI 49.75 kg/m?? Problems Addressed: Closed nondisplaced fracture of fifth metatarsal bone of right foot, initial encounter: acute illness or injury Sprain of right ankle, unspecified ligament, initial encounter: acute illness or injury Amount and/or Complexity of Data Reviewed Radiology: ordered and independent interpretation performed. Decision-making details documented in ED Course. Risk Prescription drug management. ED Course as of 01/27/23455 Time: 01/26 2035 Comment: I have independently interpreted the patient's x-ray. There appears to be a nondisplaced fracture at the base of the 5th metatarsal. By: Eve Hendrix NP Time: 01/26 2201 Comment: Reviewed findings, plan of care and return precautions with pt. Shared decision making used. The patient and family if present had the opportunity to ask all questions. All questions were answered. Pt verbalizes understanding of all and agrees with POC. By: Eve Hendrix NP Final diagnoses: Closed nondisplaced fracture of fifth metatarsal bone of right foot, initial encounter Sprain of right ankle, unspecified ligament, initial encounter Eve Hendrix NP 01/27/23456 * Adilene Jon RN - 01/26/2023 7:06 PM CDT Bed: ED23 Expected date: Expected time: Means of arrival: Comments: Adilene Jon RN 01/26/23 1906 * Rommel Steel RN - 01/26/2023 5:59 PM CDT Pt arrived to the ED From home. Pt stated walking across a cross walk on some uneven payment and twisted her right ankle/foot and fell. Pt stated not being able to put any weight on her foot. Pt rated pain 10/10. Pt has swelling to ankle. Pt is awake and alert A/Ox4 documented in this encounter Plan of Treatment Not on file documented as of this encounter Procedures Procedure Name Priority Date/Time Associated Diagnosis Comments XR FOOT RIGHT 3 OR MORE VIEWS ED 01/26/2023 6:46 PM CDT XR ANKLE RIGHT 3 OR MORE VIEWS ED 01/26/2023 6:46 PM CDT documented in this encounter Results * XR Foot Right 3 or More Views (01/26/2023 6:46 PM CDT) Anatomical Region Laterality Modality Lower Extremities, Foot Right Computed Radiography 01/27/2023 7:40 AM CDT Impressions 01/27/2023 7:40 AM CDT Nondisplaced right proximal 5th metatarsal fracture. Electronically signed by: Cirilo Orta M.D. Narrative 01/27/2023 7:40 AM CDT EXAMINATION: 1. ??Right ankle 3 or more views 2. ??Right foot 3 or more views HISTORY: Right ankle trauma FINDINGS: 3 views of the right ankle without prior for comparison: No fracture or dislocation is identified in the right ankle. ??The ankle mortise is intact. 3 nonweightbearing views of the right foot without prior for comparison. ??There is a nondisplaced fracture of the proximal right 5th metatarsal with associated mild soft tissue swelling. ??No other fractures identified. Procedure Note Cirilo Orta MD - 01/27/2023 EXAMINATION: 1. Right ankle 3 or more views 2. Right foot 3 or more views HISTORY: Right ankle trauma FINDINGS: 3 views of the right ankle without prior for comparison: No fracture or dislocation is identified in the right ankle. The ankle mortise is intact. 3 nonweightbearing views of the right foot without prior for comparison. There is a nondisplaced fracture of the proximal right 5th metatarsal with associated mild soft tissue swelling. No other fractures identified. IMPRESSION: Nondisplaced right proximal 5th metatarsal fracture. Electronically signed by: Cirilo Orta M.D. Timi Godinez MD IMG XR PROCEDURES Final Resu lt * XR Ankle Right 3 or More Views (01/26/2023 6:46 PM CDT) Anatomical Region Laterality Modality Lower Extremities, Ankle Right Compute d Radiography 01/27/2023 7:40 AM CDT Impressions 01/27/2023 7:40 AM CDT Nondisplaced right proximal 5th metatarsal fracture. Electronically signed by: Cirilo Orta M.D. Narrative 01/27/2023 7:40 AM CDT EXAMINATION: 1. ??Right ankle 3 or more views 2. ??Right foot 3 or more views HISTORY: Right ankle trauma FINDINGS: 3 views of the right ankle without prior for comparison: No fracture or dislocation is identified in the right ankle. ??The ankle mortise is intact. 3 nonweightbearing views of the right foot without prior for comparison. ??There is a nondisplaced fracture of the proximal right 5th metatarsal with associated mild soft tissue swelling. ??No other fractures identified. Procedure Note Cirilo Orta MD - 01/27/2023 EXAMINATION: 1. Right ankle 3 or more views 2. Right foot 3 or more views HISTORY: Right ankle trauma FINDINGS: 3 views of the right ankle without prior for comparison: No fracture or dislocation is identified in the right ankle. The ankle mortise is intact. 3 nonweightbearing views of the right foot without prior for comparison. There is a nondisplaced fracture of the proximal right 5th metatarsal with associated mild soft tissue swelling. No other fractures identified. IMPRESSION: Nondisplaced right proximal 5th metatarsal fracture. Electronically signed by: Cirilo Otra M.D. Timi Godinez MD IMG XR PROCEDURES Final Resu lt documented in this encounter Visit Diagnoses Diagnosis Closed nondisplaced fracture of fifth metatarsal bone of right foot, initial encounter- Primary Sprain of right ankle, unspecified ligament, initial encounter documented in this encounter Administered Medications Inactive Administered Medications - up to 3 most recent administrations Medication Order MAR Action Action Date Dose Rate Site acetaminophen (TYLENOL) tablet 1,000 mg 1,000 mg, oral, Every 6 hours PRN, 1st line for pain, Contact provider if contraindication to acetaminophen or if pain unrelieved after 2 doses, Starting on 01/26/23 at 1805, For 2 doses, Do not administer if patient has taken greater than 3g of acetaminophen in the past 24 hours. Do not administer if patient has history of liver disease., Indications: Pain, Pain, Lower Extremity Injury or TraumaIndications:Pain,Pain, Lower Extremity Injury or Trauma HYDROcodone-acetaminophen (NORCO) 5-325 mg per tablet 1 tablet 1 tablet, oral, Once, On 01/26/23 at 2101, For 1 dose, Indications: PainIndications:Pain Given 01/26/2023 9:03 PM CDT 1 tablet ibuprofen (ADVIL,MOTRIN) tablet 600 mg 600 mg, oral, Once, On 01/26/23 at 1948, For 1 dose, Do not crush, break, or open. Given 01/26/2023 7:48 PM CDT 600 mg ondansetron ODT (ZOFRAN-ODT) disintegrating tablet 8 mg 8 mg, oral, Once, On 01/26/23 at 2111, For 1 dose Given 01/26/2023 9:12 PM CDT 8 mg documented in this encounter Active and Recently Administered Medications Times are shown in CDT. Scheduled Medication Order 01/24/2023 01/25/2023 01/26/2023 HYDROcodone-acetaminophen (NORCO) 5-325 mg per tablet 1 tablet (COMPLETED) 1 tablet, oral, Once, On 01/26/23 at 2101, For 1 dose, Indications: Pain 2102 (Given - Provid er: Africa Dunn RN) ibuprofen (ADVIL,MOTRIN) tablet 600 mg (COMPLETED) 600 mg, oral, Once, On 01/26/23 at 1948, For 1 dose, Do not crush, break, or open. 1947 (Given - Provid er: Africa Dunn RN) ondansetron ODT (ZOFRAN-ODT) disintegrating tablet 8 mg (COMPLETED) 8 mg, oral, Once, On 01/26/23 at 2110, For 1 dose 2111 (Given - Provid er: Africa Dunn RN) PRN Medication Order 01/24/2023 01/25/2023 01/26/2023 acetaminophen (TYLENOL) tablet 1,000 mg 1,000 mg, oral, Every 6 hours PRN, 1st line for pain, Contact provider if contraindication to acetaminophen or if pain unrelieved after 2 doses, Starting on 01/26/23 at 1805, For 2 doses, Do not administer if patient has taken greater than 3g of acetaminophen in the past 24 hours. Do not administer if patient has history of liver disease., Indications: Pain, Pain, Lower Extremity Injury or Trauma documented in this encounter Orders Medications Ordered That Baldomero ht Not Have Been Administered Count Last Ordered Date First Ordered Date acetaminophen (TYLENOL) tablet 1,000 mg 1 0 01/26/2023 General Supply Count Last Ordered Date First Or dered Date POST-OP SHOE MED SIZE 9-11 MALE ([id number]) 1 01/26/2023 Nursing Count Last Ordered Date First Orde red Date APPLY ICE TO AFFECTED AREA 1 01/26/2023 BRACE APPLICATION 1 01/26/2023 ED SUPPLY 1 01/26/2023 documented in this encounter Care Teams Terminal Operations Manager Relationship Specialty Start Date End Date oLrie Vanessa NP [address] [place] [id number] PCP - General Family Practice 05/29/22 No, Physician 06/08/21 documented as of this encounter
--- OUTSIDE RECORDS SUMMARY | 2024-06-06 00:32 | XMS_ITS | Encounter Summary ---
Author Organization [facility] Address [address] [place] [address] Care Team Providers Care Licensed Clinician Name Role Phone No, Physician Unavailable Lorie Vanessa NP Primary Care Provider [phone] Encounter Details Date Type Department Care Team (Late st Contact Info) Description 01/16/2023 Telephone [facility] Primary Care at [place] [address] [place] [address] Lorie Vanessa NP [address] [place] [address] Social History Tobacco Use Types Packs/Day [...] on file Legal Sex Female 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 LM informing pt of the above and advisingher to call CC at [phone] to be seen. documented in this encounter Plan of Treatment Not on file documented as of this encounter Visit Diagnoses Not on filedocumented in this encounter Care Teams Licensed Clinician Relationship Specialty Start Date End Date Lorie Vanessa NP [address] [place] [id number] PCP - General Family Practice 05/29/22 No, Physician 06/08/21 documented as of this encounter
--- OUTSIDE RECORDS SUMMARY | 2024-06-06 00:32 | XMS_ITS | Encounter Summary ---
Author Organization [facility] Address [address] [place] [address] Care Team Providers Care Higher Level Teaching Assistant Name Role Phone No, Physician Unavailable Lorie Vanessa NP Primary Care Provider [phone] Reason for Visit * Auth/Cert (Routine) Specialty Diagnoses / Procedures Referred By Cyn burnett Referred To Contact Diagnoses Upper abdominal pain Nausea Diarrhea, unspecified type Gastroesophageal reflux disease without esophagitis Upper abdominal pain [R10.10] Nausea [R11.0] Diarrhea, unspecified type [R19.7] Gastroesophageal reflux disease without esophagitis [K21.9] Procedures LA ESOPHAGOGASTRODUODENOSCOPY TRANSORAL DIAGNOSTIC LA COLONOSCOPY,DIAGNOSTIC ESOPHAGOGASTRODUODENOSCOPY COLONOSCOPY Referral ID Status Reason Start Date Expiration Date Visits Re quested Visits Authorized [id number] 1 1 Encounter Details Date Type Department Care Team (Latest Contact Info) Description 01/09/2023 10:00 AM CDT - 01/09/2023 10:30 AM CDT Surgery [facility] GI Lab [address] [place] [address] Cj Thomas MD [address] [address] ESOPHAGOGASTRODUODENOSCOPY BIOPSY Surgery Details Date/Time Status Location OR Service Patient Class Case Class Case Type Trauma Case? 01/09/2023 10:00 AM Posted [facility] ENDOSCOPY GI 06 Gastroenterology Outpatient Elective Panel 1 Procedure LRB Anes Op Region Wound Class Comments ESOPHAGOGASTRODUODENOSCOPY BIOPSY N/A Monitor Anesthesia Care Class II - Clean Contaminated COLON BIOPSY N/A Monitor Anesthesia Care Class II - Clean Contaminated Surgeon Surgeon Role Service Panel Cj Thomas MD Primary Gastroenterology 1 documented in this encounter Social History Tobacco Use Types Packs/Day [...] file Legal Sex Female 6:55 PM [employer] Gender Identity Female 06/06/2022 7:40 AM [employer] Sexual Orientation Not on file documented as of this encounter Last Filed Vital Signs Vital Sign Reading Time Taken Comments Blood Pressure 132/80 01/09/2023 9:04 AM CDT Pulse 87 01/09/2023 9:04 AM CDT Temperature 36.8 ??C (98.3 ??F) 01/09/2023 9:04 AM CD T Respiratory Rate 16 01/09/2023 9:04 AM CDT Oxygen Saturation 98% 01/09/2023 9:04 AM CDT Inhaled Oxygen Concentration - - Weight - - Height - - Body Mass Index - - documented in this encounter Medications at Time [...] TABLET(400 MG) BY MOUTH DAILY 90 tablet 10/08/2022 3 mupirocin (BACTROBAN) 2 % ointment APPLY TOPICALLY [...] or self care documented in this encounter H&P Notes * Cj Thomas MD - 01/09/2023 9:56 AM CDT Gastroenterology History and Physical SUBJECTIVE: Patient is a 27 y.o. female for EGD and Colonoscopy INDICATIONS: Abdominal pain Nausea Chronic GERD Chronic diarrhea alternating with constipation Past Medical History: Diagnosis Date GERD (gastroesophageal reflux disease) Irritable bowel syndrome Migraines Motion sickness Nausea Polycystic ovary syndrome Postural orthostatic tachycardia syndrome (POTS) Medications Prior to Admission Medication Sig Dispense Refill Last Dose cetirizine (ZyrTEC) 10 mg chewable tablet Take 4 tablets (40 mg total) by mouth daily Up to 40 daily PRN 01/07/2023 at 2200 cholecalciferol 25 mcg (1,000 unit) tablet Take 1 tablet (1,000 Units total) by mouth daily 01/08/2023 at 0800 cromolyn (GASTROCROM) 100 mg/5 mL solution Take 10 mL (200 mg total) by mouth 4 (four) times a day before meals and nightly 1200 mL 11 01/08/2023 at 1400 famotidine (PEPCID) 40 mg tablet TAKE 1 TABLET(40 MG) BY MOUTH EVERY NIGHT NEEDED FOR HEARTBURN 30 tablet 3 01/07/2023 at 2200 fluconazole (DIFLUCAN) 150 mg tablet Take 1 tab every other day for 3 doses if yeast infection starts, then weekly after to prevent recurrence 15 tablet 0 01/04/2023 at 2200 lamoTRIgine (LaMICtal) 100 mg tablet Take 1.5 tablets (150 mg total) by mouth daily 1/2 in AM and 1in PM 01/08/2023 at 1200 magnesium oxide (MAG-OX) 400 mg (241.3 mg elemental magnesium) tablet TAKE 1 TABLET(400 MG) BY MOUTH DAILY 90 tablet 0 01/03/2023 mupirocin (BACTROBAN) 2 % ointment APPLY TOPICALLY TO THE AFFECTED AREA TWICE DAILY 01/03/2023 norethindrone (MICRONOR) 0.35 mg tablet Take 1 tablet (0.35 mg total) by mouth daily 01/08/2023 at 0800 ondansetron ODT (ZOFRAN-ODT) 8 mg disintegrating tablet Take 1 tablet (8 mg total) by mouth every 8(eight) hours as needed for nausea or vomiting 30 tablet 1 01/08/[address] (PROTONIX) 40 mg EC tablet Take 1 tablet (40 mg total) by mouth 2 (two) times a [id number] tablet 1 01/08/2023 at 0800 propranolol LA (INDERAL LA) 60 mg 24 hr capsule Take 1 capsule (60 mg total) by mouth daily 30 capsule 11 01/07/2023 at 2200 sertraline (ZOLOFT) 100 mg tablet Take 2 tablets (200 mg total) by mouth nightly 01/08/2023 at 2200 triamcinolone (NASACORT) 55 mcg nasal inhaler Administer 2 sprays into each nostril daily Can increase to twice daily if symptoms persist 16.9 mL 11 01/08/2023 at 0800 amoxicillin (AMOXIL) 500 mg tablet/capsule Take 1 tablet/capsule (500 mg total) by mouth 2 (two) times a day (Patient not taking: Reported on 12/11/2022) 60 tablet/capsule 2 clonazePAM (KlonoPIN) 0.5 mg tablet Take 1 tablet (0.5 mg total) by mouth daily as needed More thana month levalbuterol (XOPENEX HFA) 45 mcg/actuation inhaler Inhale 1-2 puffs every 6 (six) hours as needed for wheezing (Patient not taking: Reported on 12/11/2022) 1 each 3 sucralfate (CARAFATE) 1 gram tablet Take 1 tablet (1 g total) by mouth 4 (four) times a day Take 1 hour before meals and at bedtime 120 tablet 3 Unknown Allergies Allergen Reactions Adhesive Itching and Rash Fluoxetine Mental status changes Nitrofurantoin Itching Review of Systems: Respiratory: negative Cardiovascular: negative Gastrointestinal: positive for abdominal pain, constipation, diarrhea, and GERD OBJECTIVE: Vitals: 01/09/23 0904 BP: 132/80 Pulse: 87 Resp: 16 Temp: 36.8 ??C (98.3 ??F) SpO2: 98% General Appearance: Well-developed, no distress Lungs: Clear to auscultation bilaterally, respirations unlabored Cardiovascular: Regular rate and rhythm, S1 and S2 normal Abdomen: Soft, non-tender, bowel sounds active all four quadrants, no masses, no organomegaly, non-distended Neurologic: Alert & oriented x 3 PLAN: EGD/Colonoscopy The risks (risks of bleeding, infection, perforation requiring surgery, missed polyps/cancer, dental injury, aspiration pneumonia, anesthesia complications such as drug reaction and cardiopulmonary complications including rare chance of ), benefits, and alternatives of the planned procedure were explained to the patient who understands and consents to having procedure done. documented in this encounter Procedure Notes * Cj Thomas MD - 01/09/2023 10:36 AM CDTAssociated Order(s): EGD [facility] GI ENDOSCOPY Patient Name: Teresa Finney Procedure Date: 01/09/2023 10:36 AM Date of : 1995 Admit Type: Outpatient Age: 27 Gender: Female Attending MD: Cj Thomas M.D. Room: [facility] 06 Note Status: Finalized Procedure: Upper GI endoscopy Indications: Abdominal pain, Gastro-esophageal reflux disease, Nausea Referring MD: Josue Sherwood Providers: Cj Thomas M.D. Medicines: Monitored Anesthesia Care Complications: No immediate complications. Estimated Blood Loss: Estimated blood loss: none. Procedure: The benefits, risks, and alternatives to the procedure and sedation were discussed and informed consent was obtained. The scope was passed under direct vision. The GIF-H180 upper endoscope was introduced through the mouth, and advanced to the second part of duodenum. The upper GI endoscopy was accomplished without difficulty. The patient tolerated the procedure well. Findings: The Z-line was irregular and was found in the distal esophagus. This was biopsied with a cold forceps for evaluation to rule out Blount's Esophagus. A 2 cm hiatal hernia was present. Mild inflammation characterized by erythema was found in the stomach. Biopsies were taken with a cold forceps for Helicobacter pylori testing. The examined duodenum was normal. Biopsies for histology were taken with a cold forceps for evaluation of celiac disease. The cardia and gastric fundus were normal on retroflexion. The exam was otherwise without abnormality. Impression: - Z-line irregular, in the distal esophagus. Biopsied. - 2 cm hiatal hernia. - Gastritis. Biopsied. - Normal examined duodenum. Biopsied. - The examination was otherwise normal. Recommendation: - Patient has a contact number available for emergencies. The signs and symptoms of potential delayed complications were discussed with the patient. Return to normal activities tomorrow. Written discharge instructions were provided to the patient. - Resume previous diet. - Continue present medications. - Await pathology results. - Return to GI clinic as previously scheduled. Cj Thomas M.D. Cj Thomas M.D. 01/09/2023 11:06:27 AM . Number of Addenda: 0 Note Initiated On: 01/09/2023 10:36 AM Recognized by the [place] [employer] for promoting quality in endoscopy * Cj Thomas MD - 01/09/2023 10:36 AM CDTAssociated Order(s): COLONOSCOPY [facility] GI ENDOSCOPY Patient Name: Teresa Finney Procedure Date: 01/09/2023 10:36 AM Date of : 1995 Admit Type: Outpatient Age: 27 Gender: Female Attending MD: Cj Thomas M.D. Room: [facility] 06 Note Status: Finalized Procedure: Colonoscopy Indications: Chronic diarrhea alternating with constipation Referring MD: Josue Sherwood Providers: Cj Thomas M.D. Medicines: Monitored Anesthesia Care Complications: No immediate complications. Estimated Blood Loss: Estimated blood loss: none. Procedure: The benefits, risks and alternatives of the procedure and sedation were discussed and informed consent was obtained. All questions were answered. Please refer to the signed informed consent document in the medical record. The scope was passed under direct vision. The [id number]-BS334J colonoscope was introduced through the anus and advanced to the terminal ileum. The colonoscopy was performed without difficulty. The patient tolerated the procedure well. The quality of the bowel preparation was good. Scope withdrawal time was 8 minutes. Prep was administered in a split dose. Findings: The perianal and digital rectal examinations were normal. The terminal ileum appeared normal. Non-bleeding internal hemorrhoids were found during retroflexion. The hemorrhoids were small. The exam was otherwise without abnormality. Biopsies for histology were taken with a cold forceps from the right colon and left colon for evaluation of microscopic colitis. Impression: - The examined portion of the ileum was normal. - Non-bleeding internal hemorrhoids. - The examination was otherwise normal. - Biopsies were taken with a cold forceps from the right colon and left colon for evaluation of microscopic colitis. Recommendation: - Patient has a contact number available for emergencies. The signs and symptoms of potential delayed complications were discussed with the patient. Return to normal activities tomorrow. Written discharge instructions were provided to the patient. - High fiber diet. - Continue present medications. - Await pathology results. - Return to GI clinic as previously scheduled. Cj Thomas M.D. Cj Thomas M.D. 01/09/2023 11:08:02 AM . Number of Addenda: 0 Note Initiated On: 01/09/2023 10:36 AM Recognized by the [place] [employer] for promoting quality in endoscopy documented in this encounter Miscellaneous Notes * Pre-Procedure Instructions - Courtney Hurtado RN - 01/03/2023 2:42 PM CDT NPO after Midnight No alcohol or smoking 12 hours before surgery [place] teeth but do not swallow Shower or bathe, do not apply powders or lotions Expect to remove wigs, dentures, partials, contact lenses, body piercings and prosthesis Leave all jewelry and valuables at home Bring your glasses and hearing aide/s Make plans for responsible adult to drive you home or accompany you home Bring living will and/or power of disability attorney paperwork if you have one Follow GI physician instructions regarding blood thinner and vitamins Bring inhalers Take prep according to GI physician Please take the following medications with a small sip of water the AM of procedure: none Covid - none Arriving at GI lab [facility] 1 ,Entrance A , 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 [place] 0900am documented in this encounter Plan of Treatment Not on file documented as of this encounter Procedures Procedure Name Priority Date/Time Associated Diagnosis Comments SURGICAL PATHOLOGY Routine 01/09/2023 10:45 AM CDT Gastroesophageal reflux disease without esophagitis Upper abdominal pain Nausea Diarrhea, unspecified type EGD 01/09/2023 10:36 AM CDT COLONOSCOPY 01/09/2023 10:36 AM CDT COLON BIOPSY 01/09/2023 10:09 AM CDT Upper abdominal pain Nausea Diarrhea, unspecified type Gastroesophageal reflux disease without esophagitis ESOPHAGOGASTRODUODENOSCOPY BIOPSY 01/09/2023 10:09 AM CDT Upper abdominal pain Nausea Diarrhea, unspecified type Gastroesophageal reflux disease without esophagitis POC BLOOD GAS AND CHEMISTRIE S, VENOUS Routine 01/09/2023 9:33 AM CDT POCT HCG, URINE Routine 01/09/2023 9:21 AM CDT documented in this encounter Results * Surgical pathology (01/09/2023 10:45 AM CDT) Tissue (Gastric/Stomach biopsy) 01/09/2023 10:45 AM CDT Tissue (Gastric/Stomach biopsy) 01/09/2023 10:45 AM CDT Tissue (Esophagus, Partial / Total Resection) 01/09/2023 10:46 AM CDT Tissue (Colon, Biopsy) 01/09/2023 10:54 AM CDT Narrative PATHOLOGY [facility] - 01/10/2023 1:04 PM CDT [facility] Department of Pathology [address] [place] [address] ?? Note to Patients: ??This report may contain a detailed description of human tissue sent by a health care provider to the laboratory for pathologic evaluation. ??The content of this report is essential for diagnosis and may provide important critical findings. ??This information may be unfamiliar to patients to review without a medical professional present. ?? It is advised that the patient review this report in the presence of a health care provider who can answer questions and explain the details. Final Report with Addendum Patient Name: TERESA FINNEY : ??1995 (Age: 27) Gender: ??F Address: ??[address], [place] [address] [facility] #: [id number] Service: Gastro Location: Patient Type: [facility] [address] OUTPATIENT ? Taken: 01/09/2023 Received: 01/09/2023 Accessioned: 01/09/2023 Reported: 01/10/2023 Physician(s): Pari Sofia F.N.P. Diagnosis: A. ??Duodenum, biopsy: ? - Duodenal mucosa, no diagnostic abnormalities are identified ? - No intraepithelial lymphocytosis or villous atrophy noted ?? B. ??Stomach, biopsy: ? - Antral and junctional mucosa with mild inactive chronic gastritis ? - Negative for intestinal metaplasia or dysplasia ? - Results for H. pylori immunostain will be reported in an addendum C. ??Distal esophagus, biopsy: ? - Esophageal squamous and gastric cardiofundic mucosa, no diagnostic abnormality identified ? - Negative for intestinal metaplasia or dysplasia ?? D. Colon, random, biopsies: ? - ??Colonic mucosa, no diagnostic abnormalities are identified Claudia Quiñones M.D. Report Electronically Reviewed and Signed Out By ??Claudia Quiñones M.D. 01/10/2023 13:04:54 Addenda: Addendum - 1 MH Addendum Comment An addendum is issued to reflect the results of an Helicobacter pylori immunostain, which is resulted as: Stomach biopsy : No Helicobacter pylori organisms identified on immunostain ?? Specimen(s) Received: A: Duodenal bxs B: Gastric body and antrum C: Distal esophagus D: Random colon bx Microscopic Description: Microscopic examination substantiates the above cited diagnosis. Clinical History: The patient is a 27-year-old woman with upper abdominal pain, nausea, unspecified diarrhea and GERD without esophagitis. ??Operative procedure: ??Upper GI endoscopy and colonoscopy with biopsy. Gross Description Received in four formalin jars labeled with the patient's identifiers. A. ??Labeled duodenal Bxs rule out celiac and consists of three rice-pink tissue fragments ranging from 0.2-0.3 cm. ??Entirely submitted. ?? Labeled A1. Jar 0. B. ??Labeled gastric body and antrum rule out H pylori and consists of three rice tissue fragments ranging from 0.2-0.5 cm. ??Entirely submitted. ?? Labeled B1. Jar 0. C. ??Labeled distal esophagus rule out Barretts and consists of two rice-pink tissue fragments measuring 0.2 cm and 0.4 cm. ??Entirely submitted. ?? Labeled C1. Jar 0. D. ??Labeled random colon Bx rule out colitis and consists of four rice-pink tissue fragments ranging from 0.3-0.6 cm. ??Entirely submitted. ?? Labeled D1. Jar 0. ?? jjb/01/09/2023 13:32 OGRDON Curiel Microscopic slide review and interpretation for this case was performed at [facility], Department of Surgical Pathology, [address] [facility] [place], [place] [id number], ??[facility], [place] ??[address] ?? CLIA # [id number] us Cj Thomas MD LAB PATHOLOGY ORDERABLES Final R esult PATHOLOGY [facility] * EGD (01/09/2023 10:36 AM CDT) Anatomical Region Laterality Modality Other Narrative Procedure Note Cj Thomas MD - 01/09/2023 10:36 AM CDT [facility] GI ENDOSCOPY Patient Name: Teresa Finney Procedure Date: 01/09/2023 10:36 AM Date of : 1995 Admit Type: Outpatient Age: 27 Gender: Female Attending MD: Cj Thomas M.D. Room: [facility] 06 Note Status: Finalized Procedure: Upper GI endoscopy Indications: Abdominal pain, Gastro-esophageal reflux disease, Nausea Referring MD: Josue Sherwood Providers: Cj Thomas M.D. Medicines: Monitored Anesthesia Care Complications: No immediate complications. Estimated Blood Loss: Estimated blood loss: none. Procedure: The benefits, risks, and alternatives to theprocedure and sedation were discussed and informed consentwas obtained. The scope was passed under direct vision. The GIF-H180 upper endoscope was introduced through the mouth, and advanced to the second part of duodenum. The upper GI endoscopy was accomplished without difficulty. The patient tolerated the procedure well. Findings: The Z-line was irregular and was found in the distal esophagus. Thiswas biopsied with a cold forceps for evaluation to rule out Blount's Esophagus. A 2 cm hiatal hernia was present. Mild inflammation characterized by erythema was found in the stomach. Biopsies were taken with a cold forceps for Helicobacter pyloritesting. The examined duodenum was normal. Biopsies for histology were takenwith a cold forceps for evaluation of celiac disease. The cardia and gastric fundus were normal on retroflexion. The exam was otherwise without abnormality. Impression: - Z-line irregular, in the distal esophagus.Biopsied. - 2 cm hiatal hernia. - Gastritis. Biopsied. - Normal examined duodenum. Biopsied. - The examination was otherwise normal. Recommendation: - Patient has a contact number available for emergencies. The signs and symptoms of potential delayed complications were discussed with thepatient. Return to normal activities tomorrow. Written discharge instructions were provided to thepatient. - Resume previous diet. - Continue present medications. - Await pathology results. - Return to GI clinic as previously scheduled. Cj Thomas M.D. Cj Thomas M.D. 01/09/2023 11:06:27 AM . Number of Addenda: 0 Note Initiated On: 01/09/2023 10:36 AM Recognized by the [place] [employer] for promoting quality in endoscopy us Cj Thomas MD ENDOSCOPY PROCEDURES Final Resul t * COLONOSCOPY (01/09/2023 10:36 AM CDT) Anatomical Region Laterality Modality Other Narrative Procedure Note Cj Thomas MD - 01/09/2023 10:36 AM CDT [facility] GI ENDOSCOPY Patient Name: Teresa Finney Procedure Date: 01/09/2023 10:36 AM Date of : 1995 Admit Type: Outpatient Age: 27 Gender: Female Attending MD: Cj Thomas M.D. Room: [facility] 06 Note Status: Finalized Procedure: Colonoscopy Indications: Chronic diarrhea alternating with constipation Referring MD: Lorie Vanessa F.N.PLaura Providers: Cj Thomas M.D. Medicines: Monitored Anesthesia Care Complications: No immediate complications. Estimated Blood Loss: Estimated blood loss: none. Procedure: The benefits, risks and alternatives of theprocedure and sedation were discussed and informed consentwas obtained. All questions were answered. Please referto the signed informed consent document in the medical record. The scope was passed under direct vision.The PCF-XG082M colonoscope was introduced through theanus and advanced to the terminal ileum. The colonoscopy was performed without difficulty. The patient tolerated the procedure well. The quality of thebowel preparation was good. Scope withdrawal time was 8 minutes. Prep was administered in a split dose. Findings: The perianal and digital rectal examinations were normal. The terminal ileum appeared normal. Non-bleeding internal hemorrhoids were found during retroflexion. The hemorrhoids were small. The exam was otherwise without abnormality. Biopsies for histology were taken with a cold forceps from the right colon and left colon for evaluation of microscopic colitis. Impression: - The examined portion of the ileum was normal. - Non-bleeding internal hemorrhoids. - The examination was otherwise normal. - Biopsies were taken with a cold forceps from the right colon and left colon for evaluation of microscopic colitis. Recommendation: - Patient has a contact number available for emergencies. The signs and symptoms of potential delayed complications were discussed with thepatient. Return to normal activities tomorrow. Written discharge instructions were provided to thepatient. - High fiber diet. - Continue present medications. - Await pathology results. - Return to GI clinic as previously scheduled. Cj Thomas M.D. Cj Thomas M.D. 01/09/2023 11:08:02 AM . Number of Addenda: 0 Note Initiated On: 01/09/2023 10:36 AM Recognized by the [place] [employer] for promoting quality in endoscopy us Cj Thomas MD ENDOSCOPY PROCEDURES Final Resul t * (ABNORMAL) POC Blood Gas and Chemistries, Venous - (01/09/2023 9:33 AM CDT) pH,mauro POC 7.37 7.32 - 7.43 [place] pCO2, mauro POC 38(L) 40 - 50 mmHg [place] pO2,mauro POC 58 mmHg [facility] Comment: Interpretive Data No reference range established. Current interpretive data was last revised 2020. HCO3, mauro (Calc) POC 22 20 - 30 mmol/L [facility] Base excess, mauro POC -3 mmol/L [facility] Comment: Interpretive Data No reference range established. Current interpretive data was last revised 2020. Hemoglobin, mauro POC 13.6 11.9 - 15.5 g/dL [facility] Hematocrit, mauro POC 40.0 35.6 - 45.5 % [facility] Sodium, mauro POC 140 135 - 145 mmol/L [facility] Potassium, mauro POC 3.8 3.3 - 4.9 mmol/L [facility] Comment: Interpretive Data This method is not able to assess for hemolysis, which may falsely increase potassium concentrations. If further testing is needed to evaluate this result, consider in-laboratory plasma potassium. Current Interpretive Data was last revised on 2022. Glucose, mauro POC 90 70 - 199 mg/dL [facility] Ionized Calcium, mauro POC 5.10 4.45 - 5.25 mg/dL [facility] Blood 01/09/2023 9:3 3 AM CDT 01/09/2023 9:33 AM CDT Cj Thomas MD LAB POCT ORDERABLES - DEVICE Fin al Result Performing Organization Address City/State/[facility] Co de Phone Number FRAN [address] [facility] Department [place] [address] * POCT hCG, urine (01/09/2023 9:21 AM CDT) HCG, ur, POC Negative Lot Number [id number] QC Backgroud Clear Acceptable QC Control Line Acceptable Urine 01/09/2023 9:21 AM CDT Trae Trent MD POINT OF CARE TEST ORDERABLES Final Result documented in this encounter Visit Diagnoses Diagnosis Gastroesophageal reflux disease without esophagitis Esophageal reflux Upper abdominal pain Nausea Nausea alone Diarrhea, unspecified type Upper abdominal pain Nausea Nausea alone Diarrhea, unspecified type Gastroesophageal reflux disease without esophagitis Esophageal reflux documented in this encounter Admitting Diagnoses Diagnosis Upper abdominal pain Nausea Nausea alone Diarrhea Gastroesophageal reflux disease without esophagitis Esophageal reflux documented in this encounter Administered Medications Inactive Administered Medications - up to 3 most recent administrations Medication Order MAR Action Action Date Dose Rate Site Lactated Ringer's (LR) infusion 30 mL/hr, intravenous, Continuous, Starting on Sat01/09/23 at 0945, Pre-Op, Restarted 01/09/2023 11:11 AM CDT Rate/Dose Verify 01/09/2023 10:35 AM CDT 30 mL/ hr Restarted 01/09/2023 10:08 AM CDT lidocaine (XYLOCAINE) 10 mg/mL (1 %) injection 2-10 mg 2-10 mg (0.2-1 mL), other, Once as needed, pain with IV placement, Starting on Sat01/09/23 at 0907, For 1 dose, Pre-Op, Administer volume needed to infiltrate IV site. meclizine (ANTIVERT) tablet 25 mg 25 mg, oral, Once, On Sat01/09/23 at 0945, For 1 dose, Pre-Op Given 01/09/2023 9:15 AM CDT 25 mg propranoloL (INDERAL) tablet 40 mg 40 mg, oral, 2 times daily, First dose on Sat01/09/23 at 1030, For 1 dose Given 01/09/2023 10:03 AM CDT 40 mg sodium chloride 0.9% flush 0.5-20 mL 0.5-20 mL, intra-catheter, As needed, line care, Starting on Sat01/09/23 at 0907, Pre-Op, Flush volume based on line type and size. Flush before and after each use. documented in this encounter Active and Recently Administered Medications Times are shown in CDT. Scheduled Medication Order 01/07/2023 01/08/2023 01/09/2023 meclizine (ANTIVERT) tablet 25 mg (COMPLETED) 25 mg, oral, Once, On Sat01/09/23 at 0945, For 1 dose, Pre-Op 0915 (Given - Provid er: Blanca Nelson RN) propranoloL (INDERAL) tablet 40 mg (COMPLETED) 40 mg, oral, 2 times daily, First dose on Sat01/09/23 at 1030, For 1 dose 1003 (Given - Provid er: Blanca Nelson RN) Continuous Medication Order 01/07/2023 01/08/2023 01/09/2023 Lactated Ringer's (LR) infusion 30 mL/hr, intravenous, Continuous, Starting on Sat01/09/23 at 0945, Pre-Op, 0930 (New Bag - Prov ider: Blanca Nelson RN)1007 (Paused - Provider: Sarah Mejia CRNA - Comment: Switch to gravity)1008 (Restarted - Provider: Sarah Mejia CRNA)1035 (Rate/Dose Verify - Provider: Sarah Mejia CRNA)1110 (Paused - Provider: Sarah Mejia CRNA - Comment: Switch to gravity)1111 (Restarted - Provider: Sarah Mejia CRNA)1617 (Due: Stopped) Lactated Ringer's (LR) infusion 125 mL/hr, intravenous, Continuous, Starting on Sat01/09/23 at 0945, Phase I, If on NS, continue with normal saline at 125 ml/hr 0945 (Due) PRN Medication Order 01/07/2023 01/08/2023 01/09/2023 lidocaine (XYLOCAINE) 10 mg/mL (1 %) injection 2-10 mg 2-10 mg (0.2-1 mL), other, Once as needed, pain with IV placement, Starting on Sat01/09/23 at 0907, For 1 dose, Pre-Op, Administer volume needed to infiltrate IV site. meperidine (DEMEROL) preservative free injection 12.5 mg 12.5 mg, intravenous, Administer over 5 Minutes, Every 10 min PRN, shivering, Starting on Sat01/09/23 at 0909, For 2 doses, Phase I, Max cumulative dose 25 mg., Indications: Shivering metoclopramide (REGLAN) 5 mg/mL injection 10 mg 10 mg, intravenous, Once as needed, nausea, vomiting, Starting on Sat01/09/23 at 0909, For 1 dose, Phase I, If nausea/vomiting not relieved by ondansetron within 30 minutes or if ondansetron has been given within the last 6 hours. naloxone (NARCAN) 0.4 mg/mL injection 0.04-0.4 mg 0.04-0.4 mg, intravenous, Once as needed, other, excessive sedation/respiratory depression, Starting on Sat01/09/23 at 0909, For 1 dose, Phase I, Dilute 0.4 mg with 9 mL NS (final concentration 0.04 mg/mL). For respiratory depression (respiratory rate less than 6), administer 0.4 mg IVP over 30 seconds. For excessive sedation administer 0.04 mg (1 mL) every 1 minute until desired level of alertness. For IV, administer over 30 seconds., Indications: Opioid Toxicity ondansetron (ZOFRAN) injection 4 mg 4 mg, intravenous, Administer over 2 Minutes, Once as needed, nausea, vomiting, Starting on Sat01/09/23 at 0909, For 1 dose, Phase I, Proceed to metoclopramide if ondansetron has been given within the last 6 hours. sodium chloride 0.9% flush 0.5-20 mL 0.5-20 mL, intra-catheter, As needed, line care, Starting on Sat01/09/23 at 0907, Pre-Op, Flush volume based on line type and size. Flush before and after each use. documented in this encounter Orders Medications Ordered That Baldomero ht Not Have Been Administered Count Last Ordered Date First Ordered Date Lactated Ringer's (LR) infusion 1 lidocaine (XYLOCAINE) 10 mg/ mL (1 %) injection 2-10 mg 1 01/09/2023 meperidine (DEMEROL) preserv ative free injection 12.5 mg 1 01/09/2023 metoclopramide (REGLAN) 5 mg /mL injection 10 mg 1 01/09/2023 naloxone (NARCAN) 0.4 mg/mL injection 0.04-0.4 mg 1 01/09/2023 ondansetron (ZOFRAN) injection 4 mg 1 01/09 sodium chloride 0.9% flush 0.5-20 mL 1 12/25 Diet Count Last Ordered Date First Orde red Date ADULT DISCHARGE DIET 1 01/09/2023 Nursing Count Last Ordered Date First Orde red Date DISCHARGE ACTIVITY 1 01/09/2023 DISCHARGE CALL PROVIDER 5 01/09/2023 Discharge Count Last Ordered Date First Orde red Date DISCHARGE PATIENT 1 01/09/2023 documented in this encounter Care Teams Higher Level Teaching Assistant Relationship Specialty Start Date End Date Lorie Vanessa, ASSISTED LIVING ADMINISTRATOR [address] [place] [id number] PCP - General Family Practice 05/29/22 No, Physician 06/08/21 documented as of this encounter
--- OUTSIDE RECORDS SUMMARY | 2024-06-06 00:32 | XMS_ITS | Encounter Summary ---
Author Organization [facility] Healthcare Address [address] [place] [address] Care Team Providers Care Shared Services And Outsourcing Manager Name Role Phone No, Physician Unavailable Lorie Vanessa NP Primary Care Provider [phone] Reason for Visit * Auth/Cert (Routine) Specialty Diagnoses / Procedures Referred By Cyn burnett Referred To Contact Diagnoses Upper abdominal pain Nausea Diarrhea, unspecified type Gastroesophageal reflux disease without esophagitis Upper abdominal pain [R10.10] Nausea [R11.0] Diarrhea, unspecified type [R19.7] Gastroesophageal reflux disease without esophagitis [K21.9] Procedures NE ESOPHAGOGASTRODUODENOSCOPY TRANSORAL DIAGNOSTIC NE COLONOSCOPY,DIAGNOSTIC ESOPHAGOGASTRODUODENOSCOPY COLONOSCOPY Referral ID Status Reason Start Date Expiration Date Visits Re quested Visits Authorized [id number] 1 1 Encounter Details Date Type Department Care Team (Late st Contact Info) Description 01/09/2023 10:35 AM CDT Anesthesia Event [facility] [address] [place] [address] Segundo Burciaga MD [address] [place] [address] Trae Trent MD [address] [facility] [address] [facility] [address] [place] [address] Anesthesia Record Procedure Summary Procedure Name Responsible Anesthesiologist Anesthesia Start Time Anesthesia Stop Time ESOPHAGOGASTRODUODENOSCOPY BIOPSY Seugndo Burciaga MD 01/09/23 1035 01/09/23 1111 Events Date Time Event Comment 01/09/2023 1008 An Start Data 1009 In Room 1010 Patient Positioned Laterally 1011 Anesthesia Ready 1031 1035 An Start 1040 Bite Block Placed 1041 An Induction The patient was reevaluated immediately before moderate or deep sedation use and before anesthesia induction. 1042 Proc Start 1050 Quick Note Start of colono scopy 1102 Proc Fin 1103 an stop data 1105 Out of Room 1111 Handoff to RN I completed my handoff to the receiving nurse during which we: 1. Patient identified 2. Responsible provider identified 3. Pertinent medical history reviewed 4. Procedure type and surgical course discussed 5. Intraoperative anesthetic management and any significant issues discussed 6. Expectations and concerns for postop period discussed 7. Questions solicited from receiving nurse 8. Patient disposition at the time of handoff: No value filed. 1111 An Stop Meds Name Total lidocaine (cardiac) syringe 2 % 100 mg propofol 525 mg Lactated Ringer's (LR) infusion 800 mL * Agents Name O2% N2O O2 N2O Air * Blood No blood administrations on file. 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 Gender Identity Female 06/06/2022 7:40 AM MILK INSPECTOR Sexual Orientation Not on file documented as of this encounter OR Notes * Anesthesia Postprocedure Evaluation - Segundo Burciaga MD - 01/09/2023 11:49 AM CDT Patient: Emily Guerrier Procedure Summary Date: 01/09/23 Room / Location: [facility] ROOM 06 / [facility] Anesthesia Start: 1035 Anesthesia Stop: 1111 Procedures: ESOPHAGOGASTRODUODENOSCOPY BIOPSY COLON BIOPSY Diagnosis: Upper abdominal pain Nausea Diarrhea, unspecified type Gastroesophageal reflux disease without esophagitis (Upper abdominal pain [R10.10]) (Nausea [R11.0]) (Diarrhea, unspecified type [R19.7]) (Gastroesophageal reflux disease without esophagitis [K21.9]) Providers: Cj Thomas MD Responsible Provider: Segundo Burciaga MD Anesthesia Type: MAC ASA Status: 3 Anesthesia Type: MAC Last vitals BP 114/82 (BP Location: Left arm) Pulse 71 Temp 36.6 ??C (97.8 ??F) (Tympanic) Resp 19 [id number]% Anesthesia Post Evaluation Patient location during evaluation: PACU Patient participation: complete - patient participated Level of consciousness: fully awake Pain management: adequate Airway patency: adequate Evidence of recall: no Cardiovascular status: acceptable Respiratory status: acceptable Hydration status: acceptable Pt is: normothermic Nausea/Vomiting status: none No notable events documented. * Anesthesia Preprocedure Evaluation - Segundo Burciaga MD - 01/08/2023 7:56 PM CDT Images from the original note were not included. Anesthesia Evaluation Emily E Fareed is a 27 y.o. female Procedure(s): ESOPHAGOGASTRODUODENOSCOPY COLONOSCOPY Pre-Op Diagnosis Codes: * Upper abdominal pain [R10.10] * Nausea [R11.0] * Diarrhea, unspecified type [R19.7] * Gastroesophageal reflux disease without esophagitis [K21.9] HISTORY Past Medical History Information obtained from: patient and chart. Neurological Pertinent negatives: CVA/stroke Seizures: febrile sz in childhood. Cardiovascular Comments: Orthostatic hypotension Respiratory Pertinent negatives: non-smoker Respiratory system: negative Hepatic / Heme Pertinent negatives: liver disease Gastrointestinal + GERD Renal / Pertinent negatives: renal disease Endocrine / Other + Obesity (BMI >30)- morbid obesity (BMI>40). Pertinent negatives: diabetes mellitus and thyroid disease Day of Surgery assessments + Possibility of assessed - HCG negative (see labs). Meclizine Istat noted Inderal? ordered Osmar's note from 08/23/22: Preoperative cardiac risk stratification: Based on findings of echocardiogram and extended Holter monitor, no apparent cardiac reservations to proceeding with planned upper GI endoscopy. EKG 11/20/22 with evidence of new inferior WI, new since 08/06/22 08/06/22 ECHO Interpretation Summary Ejection Fraction = 60-65%. The right ventricular systolic function is normal. E/E prime ratio is <8 suggesting normal pulmonary wedge pressure and no LV diastolic dysfunction. 08/06/22 stress test is non-diagnostic Patient Active Problem List Diagnosis PCOS (polycystic ovarian syndrome) Nausea Frequent infections Tachycardia, unspecified Dizziness Orthostatic hypotension Hemorrhoids GALEANO (dyspnea on exertion) Amenorrhea Need for vaccination Right upper quadrant pain Family history of CHF (congestive heart failure) Constipation Diarrhea Gastroesophageal reflux disease without esophagitis Chronic left-sided low back pain without sciatica Acute pain of right knee Morbid obesity with BMI of 50.0-59.9, adult (HCC) Vitamin D deficiency Lipid screening Annual physical exam Past Medical History: Diagnosis Date GERD (gastroesophageal reflux disease) Irritable bowel syndrome Migraines Motion sickness Nausea Polycystic ovary syndrome Postural orthostatic tachycardia syndrome (POTS) Past Surgical History: Procedure Laterality Date BAND HEMORRHOIDECTOMY COLONOSCOPY ESOPHAGOGASTRODUODENOSCOPY OB History No obstetric history on file. Allergies Allergen Reactions Adhesive Itching and Rash Fluoxetine Mental status changes Nitrofurantoin Itching Taking? Last Dose Start Date End Date Provider amoxicillin (AMOXIL) 500 mg tablet/capsule -- 12/03/22 03/03/23 Jackson Dodd MD PhD Take 1 tablet/capsule (500 mg total) by mouth 2 (two) times a day Patient not taking: Reported on 12/11/2022 cetirizine (ZyrTEC) 10 mg chewable tablet 01/02/2023 -- -- Marcela Delgado MD cholecalciferol 25 mcg (1,000 unit) tablet 01/03/2023 -- -- Marcela Delgado MD clonazePAM (KlonoPIN) 0.5 mg tablet 01/03/2023 -- -- Marcela Delgado MD cromolyn (GASTROCROM) 100 mg/5 mL solution 01/03/2023 12/03/22 12/03/23 Jackson Dodd MD PhD Take 10 mL (200 mg total) by mouth 4 (four) times a day before meals and nightly famotidine (PEPCID) 40 mg tablet -- 01/08/23 -- Cj Thomas MD TAKE 1 TABLET(40 MG) BY MOUTH EVERY NIGHT NEEDED FOR HEARTBURN fluconazole (DIFLUCAN) 150 mg tablet 01/03/2023 12/03/22 -- Jackson Dodd MD PhD Take 1 tab every other day for 3 doses if yeast infection starts, then weekly after to prevent recurrence lamoTRIgine (LaMICtal) 100 mg tablet 01/03/2023 12/28/21 -- Marcela Delgado MD magnesium oxide (MAG-OX) 400 mg (241.3 mg elemental magnesium) tablet 01/03/2023 10/08/22 -- Nile Prasad MD TAKE 1 TABLET(400 MG) BY MOUTH DAILY norethindrone (MICRONOR) 0.35 mg tablet 01/03/2023 05/12/21 -- Marcela Delgado MD ondansetron ODT (ZOFRAN-ODT) 8 mg disintegrating tablet Unknown 12/11/22 -- Lorie Vanessa NP Take 1 tablet (8 mg total) by mouth every 8 (eight) hours as needed for nausea or vomiting pantoprazole DR (PROTONIX) 40 mg EC tablet -- 01/03/23 07/02/23 Lorie Vanessa NP Take 1 tablet (40 mg total) by mouth 2 (two) times a day propranolol LA (INDERAL LA) 60 mg 24 hr capsule 01/03/2023 07/13/22 07/13/23 Nile Prasad MD Take 1 capsule (60 mg total) by mouth daily sertraline (ZOLOFT) 100 mg tablet 01/03/2023 -- -- Marcela Delgado MD sucralfate (CARAFATE) 1 gram tablet Unknown 01/03/23 01/03/24 Cj Thomas MD Take 1 tablet (1 g total) by mouth 4 (four) times a day Take 1 hour before meals and at bedtime triamcinolone (NASACORT) 55 mcg nasal inhaler 01/03/2023 09/04/22 09/04/23 Jackson Dodd MD PhD Administer 2 sprays into each nostril daily Can increase to twice daily if symptoms persist Flag for Review Taking? Last Dose Start Date End Date Provider levalbuterol (XOPENEX HFA) 45 mcg/actuation inhaler -- 11/01/22 11/01/23 Jackson Dodd [facility] Inhale 1-2 puffs every 6 (six) hours as needed for wheezing Patient not taking: Reported on 12/11/2022 mupirocin (BACTROBAN) 2 % ointment 01/03/2023 12/02/22 -- Marcela Delgado MD No current facility-administered medications for this encounter. Current Outpatient Medications: cetirizine (ZyrTEC) 10 mg chewable tablet cholecalciferol 25 mcg (1,000 unit) tablet clonazePAM (KlonoPIN) 0.5 mg tablet cromolyn (GASTROCROM) 100 mg/5 mL solution fluconazole (DIFLUCAN) 150 mg tablet lamoTRIgine (LaMICtal) 100 mg tablet magnesium oxide (MAG-OX) 400 mg (241.3 mg elemental magnesium) tablet mupirocin (BACTROBAN) 2 % ointment norethindrone (MICRONOR) 0.35 mg tablet propranolol LA (INDERAL LA) 60 mg 24 hr capsule sertraline (ZOLOFT) 100 mg tablet triamcinolone (NASACORT) 55 mcg nasal inhaler amoxicillin (AMOXIL) 500 mg tablet/capsule famotidine (PEPCID) 40 mg tablet levalbuterol (XOPENEX HFA) 45 mcg/actuation inhaler ondansetron ODT (ZOFRAN-ODT) 8 mg disintegrating tablet pantoprazole DR (PROTONIX) 40 mg EC tablet sucralfate (CARAFATE) 1 gram tablet Social History Tobacco Use Smoking Status Never Smokeless Tobacco Never Alcohol Use: Not At Risk (01/03/2023) AUDIT-C Frequency of Alcohol Consumption: Monthly or less Average Number of Drinks: 1 or 2 Frequency of Binge Drinking: Never Substance and Sexual Activity Drug Use Not on file Family History Problem Relation Age of Onset Hypertension Mother COPD Mother Squamous cell carcinoma Father Heart failure Brother Diabetes Maternal Grandmother Family history of diabetes mellitus - (Added by MEGHNA Conv) Mental illness Maternal Grandmother Family history of mental disorder - (Added by MEGHNA Conv) There were no vitals filed for this visit. PT: No results found for requested labs within last 30 days. INR: No results found for requested labs within last 30 days. APTT: No results found for requested labs within last 30 days. Hgb A1C: No results found for requested labs within last 30 days. CBC RBC: No results found for requested labs within last 30 days. RDW: No results found for requested labs within last 30 days. MCHC: No results found for requested labs within last 30 days. MCH: No results found for requested labs within last 30 days. MCV: No results found for requested labs within last 30 days. Hct: No results found for requested labs within last 30 days. Hgb: No results found for requested labs within last 30 days. WBC: No results found for requested labs within last 30 days. MPV: No results found for requested labs within last 30 days. Platelets: No results found for requested labs within last 30 days. RDW CV: No results found for requested labs within last 30 days. RDW Sd: No results found for requested labs within last 30 days. BMP Glucose: No results found for requested labs within last 30 days. Calcium: No results found for requested labs within last 30 days. Sodium: No results found for requested labs within last 30 days. Potassium: No results found for requested labs within last 30 days. CO2: No results found for requested labs within last 30 days. Chloride: No results found for requested labs within last 30 days. BUN: No results found for requested labs within last 30 days. Creatinine: No results found for requested labs within last 30 days. STOP-Bang Total Score: 1 DOS Physical Exam Medical history, medications, and allergies reviewed. Attestation: This PAT evaluation 01/09/2023. Airway Exam: Mallampati: III Cervical ROM: FROM Patient presents with thick neck. Cardiovascular Exam: Rate: regular Rhythm: regular Negative for Murmur JVD negative Pulmonary Exam: LCTA, bilat Coarse breath sounds negative Crackles negative Basilar Crackles negative Rhonchi negative EENT Exam: trachea midline Skin Exam: Skin is warm. Current state: Patient's current state is cooperative and interactive. Anesthesia Plan ASA 3 My patient is approved for the Anesthesia Controlled Medication protocol when under care of a QUALITY ASSURANCE PROJECT MANAGER Planned anesthesia: MAC Comments: prn general anesthesia Induction: Induction: intravenous. Postoperative Plan: Postoperative administration opioids intended. Patient's planned disposition post procedure is Outpatient. Informed Consent: Discussed plan with QUALITY ASSURANCE PROJECT MANAGER. Anesthesia plan and risks discussed with patient. Consent and Attending signature: I and/or my designee have discussed the anesthesia plan, benefits, possible alternatives, parental presence at time of induction (if indicated), and clinically relevant risks that may include dental injury, unintentional awareness, and/or other complications. The patient and/or parent/legal guardian understand, and agree to proceed. All questions answered. documented in this encounter Plan of Treatment Not on file documented as of this encounter Visit Diagnoses Not on filedocumented in this encounter Administered Medications Inactive Administered Medications - up to 3 most recent administrations Medication Order MAR Action Action Date Dose Rate Site Lactated Ringer's (LR) infusion 30 mL/hr, intravenous, Continuous, Starting on Sat01/09/23 at 0945, Pre-Op, Restarted 01/09/2023 11:11 AM CDT Rate/Dose Verify 01/09/2023 10:35 AM CDT 30 mL/ hr Restarted 01/09/2023 10:08 AM CDT lidocaine (cardiac) (XYLOCAINE) preservative free injection intravenous, As needed, Starting on Sat01/09/23 at 1041, Anesthesia Intra-op, Indications: Ventricular ArrhythmiasIndications:Ventricular Arrhythmias Given 01/09/2023 10:41 AM CDT 100 mg propofoL (DIPRIVAN) 10 mg/mL IV intravenous, As needed, Starting on Sat01/09/23 at 1041, Anesthesia Intra-op Given 01/09/2023 10:59 AM CDT 50 mg Given 01/09/2023 10:51 AM CDT 75 mg Given 01/09/2023 10:49 AM CDT 50 mg documented in this encounter Care Teams Shared Services And Outsourcing Manager Relationship Specialty Start Date End Date Lorie Vanessa NP [address] [place] [id number] PCP - General Family Practice 05/29/22 No, Physician 06/08/21 documented as of this encounter
--- OUTSIDE RECORDS SUMMARY | 2024-06-06 00:32 | XMS_ITS | Encounter Summary ---
Author Organization [facility] Healthcare Address [address] [place] [address] Care Team Providers Care Paleontological Helper Name Role Phone No, Physician Unavailable Lorie Vanessa NP Primary Care Provider [phone] Reason for Visit * Reason Comments PT Treatment * Consultation (Routine) - Canceled Specialty Diagnoses / Procedures Referred By Cyn burnett Referred To Contact Physical Therapy Diagnoses Sprain of ligaments of lumbar spine, initial encounter Ella Stephenson MD [address] [place] [phone] Phone: tel: fax: [address] [phone] Referral ID Status Reason Start Date Expiration Date V isits Requested Visits Authorized [id number] Canceled Evaluate and Treat 01/21/2023 02/20/2024 6 6 Encounter Details Date Type Department Care Team (Late st Contact Info) Description 01/24/2023 3:00 PM CDT Therapy [facility] Physical Therapy [address] [place] [phone] Kuldip Dempsey, GRACIELA Sprain of ligaments of lumbar spine, initial encounter (Primary Dx) Social History Tobacco [...] as of this encounter Progress Notes * Kuldip Dempsey, PT - 01/24/2023 3:00 PM CDT Images from the original note were not included. Physical Therapy Visit PT Daily Treatment Note 01/24/2023 Emily Guerrier 1995 ICD-9-CM ICD-10-CM 1. Sprain of ligaments of lumbar spine, initial encounter 847.2 S33.5XXA Precautions: None ADJUSTOR: SAMMY UTRNER PHONE NUMBER: [phone] CLAIM #: [id number] DATE OF INJURY: 01/20/2023 Visit Info Next MD Visit: 01/25/23 Initial Certification/Plan of Care Dates: 01/23/23 to discharge Re-Certification/Plan of Care Dates: none Progress Report Completed: none Progress Report Due: 10th visit Start Time: 1500 End Time: 1553 Patient ID verified. Subjective: Emily Guerrier reports that I haven't been as busy today but I've been sitting in ahard chair in a patient's room for 45 minutes so now I am hurting worse. I felt fine after my visitlast night. The symptoms down my left leg are about the same. Pain: 6/10. Objective: See below. Treatment Provided: Soft Tissue Mobilization - Left Lumbar Paraspinals - 6 minutes. Treatments 01/24/23 Visit Number 2/6 Posterior Pelvic Tilt 2x10 reps Supine Gluteal Sets 2x10 reps Bent Knee Fallouts X10 reps Lower Abdominal Marching X10 reps Clamshells X10 reps Bridging X10 reps Seated Nerve Glides 5 sets x10 reps Cold Pack 10' Lumbar Post- Exercise Home Exercise Program: 01/24/23: Posterior Pelvic Tilt, Bridging, Clamshells, Bent Knee Fallouts Assessment: Emily Guerrier did not voice or demonstrate any adverse effects from today's treatment session. Provided in-clinic and initial HEP focused on low level core and gluteal strengthening regimen promoting posterior pelvic tilt/reduction of her lumbar lordosis to reduce mechanical stress at her L4/5 segments. She was receptive to the use of ice post-session to help reduce her pain complaints. Patient Response to Treatment: Emily Guerrier reports her low back pain at 3/10 post-session with her primary complain being soreness in her left lower extremity. Rehab Prognosis/Potential: good. Patient would benefit from continued skilled Physical Therapy. Goals STG to be met by 02/06/23 1) Patient will demonstrate normalized roberts left L4 myotomal strength to improve her gait mechanics.ONGOING 2) Patient will demonstrate at least 75% of full lumbar AROM in all directions with no greater than2/10 low back pain to improve her tolerance for lifting. ONGOING 3) Patient will be able to stand for at least 20 minutes with no greater than 2/10 low back pain toimprove her tolerance to prolonged activity. ONGOING LTG to be met by discharge. 1) Patient independent with home exercise program. ONGOING 2) Patient to improve function on RADHA to 19% or less. ONGOING 3) Patient will return to completing her occupational demands without limitation due to her currentsubjective complaints. ONGOING 4) Patient will drive for at least 20 minutes with no reported low back or left lower extremity radicular complaints. ONGOING Plan: Add supine TA with UE Lifts, supine TA with upper extremity theraband extensions. Consider warmup pre-exercise. Kuldip Dempsey PT Time Calculator Time-Based Code Calculator Minutes for Ther Ex/Ther Procedure (39659):: 38 minutes Minutes for Manual Therapy (24958):: 5 minutes Timed Code Treatment Minutes:: 43 minutes Total Treatment Time: 53 documented in this encounter Plan of Treatment Not on file documented as of this encounter Visit Diagnoses Diagnosis Sprain of ligaments of lumbar spine, initial encounter- Primary documented in this encounter Care Teams Paleontological Helper Relationship Specialty Start Date End Date Lorie Vanessa NP [address] [place] [address] PCP - General Family Practice 05/29/22 No, Physician 06/08/21 documented as of this encounter
--- OUTSIDE RECORDS SUMMARY | 2024-06-06 00:32 | XMS_ITS | Encounter Summary ---
Author Organization [facility] Address [address] [place] [address] Care Team Providers Care Ore Crusher Name Role Phone No, Physician Unavailable Lorie Vanessa NP Primary Care Provider [phone] Encounter Details Date Type Department Care Team (Late st Contact Info) Description 01/11/2023 Documentation [facility] Gastroenterology at [address] [place] [phone] Della Vanessa NP [address] [place] [address] Social History Tobacco Use Types Packs/Day Years [...] on file Legal Sex Female 6:55 PM EXPORT FREIGHT SPECIALIST Gender Identity Female 06/06/2022 7:40 AM EXPORT FREIGHT SPECIALIST Sexual Orientation Not on file documented as of this encounter Progress Notes * Della Vanessa NP - 01/11/2023 12:03 PM CDT Spoke with pharmacist Hank pm phone about treatment of enteroccocus faecium. Pharmacist recommends no treatment and that bacteria is seen in stool cultures often. documented in this encounter Plan of Treatment Not on file documented as of this encounter Visit Diagnoses Not on filedocumented in this encounter Care Teams Ore Crusher Relationship Specialty Start Date End Date Lorie Vanessa NP [address] [place] [id number] PCP - General Family Practice 05/29/22 No, Physician 06/08/21 documented as of this encounter
--- OUTSIDE RECORDS SUMMARY | 2024-06-06 00:32 | XMS_ITS | Encounter Summary ---
Author Organization [facility] Healthcare Address [address] [place] [address] Care Team Providers Care Lime Hide Inspector Name Role Phone No, Physician Unavailable Lorie Vanessa NP Primary Care Provider [phone] Reason for Visit * Reason Comments PT Initial Eval * Consultation (Routine) - Canceled Specialty Diagnoses / Procedures Referred By Cyn burnett Referred To Contact Physical Therapy Diagnoses Sprain of ligaments of lumbar spine, initial encounter Ella Stephenson MD [address] [place] [address] Phone: tel: fax: [address] [phone] Referral ID Status Reason Start Date Expiration Date V isits Requested Visits Authorized [id number] Canceled Evaluate and Treat 01/21/2023 02/20/2024 6 6 Encounter Details Date Type Department Care Team (Late st Contact Info) Description 01/23/2023 3:00 PM CDT Therapy [facility] Physical Therapy [address] [place] [phone] Kuldip Dempsey, PT Sprain of ligaments of lumbar spine, initial [...] on file Legal Sex Female 6:55 PM INSTRUMENT TECHNOLOGIST Gender Identity Female 06/06/2022 7:40 AM INSTRUMENT TECHNOLOGIST Sexual Orientation Not on file documented as of this encounter Progress Notes * Kuldip Dempsey, PT - 01/23/2023 3:00 PM CDT Images from the original note were not included. Physical Therapy Evaluation / Plan of Care 01/23/2023 Emily Guerrier 1995 27 y.o. female Bhakti Bryson MSN, TRAILER TECHNICIAN-DC [address] [place] [address] ICD-9-CM ICD-10-CM 1. 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 She was instructed by the nurse practitioner to attend PT, avoid bending/lifting/twisting, no lifting greater than 10 pounds, and she was placed on light duty. She received Naproxen and Flexeril. She has a chronic history of low back higher up in my low back but not similar to her current presentation. RTD 01/25/23. Diagnostic Tests No current imaging. X-ray from : Lumbar spine: There are no fractures. There is mild L1-L2 degenerative disc disease. Alignment is normal. Previous Treatment: PT for low back as teenager. Pain Current pain ratin/10 At best pain ratin/10 At worst pain ratin/10. Location: Consistent eft throbbing, sharp low back with occasional shooting pains down left anterior leg below the left knee. Exacerbating Factors: Walking, bending forward, prolonged sitting. Relieving Factors: Heat, medication. 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 Required to lift up/pull 100-200 pounds frequently and occasionally up to 300 pounds. Patient Goal: Symptom free or at least improved. Abuse and Neglect: No concerns noted by patient or therapist. Objective: Outcome Measure: Oswestry Disability Index (RADHA): 40% Posture: Hinge L4/5 with skin crease, slight right trunk lean, no appreciable trunk shift. Increased anterior pelvic tilt/lumbar lordosis. Increased thoracic kyphosis/cervical lordosis. Depressed anddownwardly slopping bilateral shoulders. Gait: Antalgic gait on left, reduced stance time on left with reduced step length on right, reducedhip extension on left during terminal stance with increased left pelvic rotation. Lumbar AROM (% of Full) Flexion 25%* Extension 25%* Right Lateral Flexion 100% Left Lateral Flexion 50% Right Rotation 75% Left Rotation 50%* *-denotes [...] lumbar paraspinals and multifdi. Treatment Provided: Discussed evaluation findings and treatment plan with patient. Initiated home exercise program of posterior pelvic tilt and supine gluteal sets Other treatment: soft tissue mobilization - left lumbar paraspinals - 5 minutes. Assessment: Therapy Impression: Emily Guerrier demonstrates a loss of lumbar AROM in all directions, especially flexion and extension, with reports of pain at attempts at end-range movements. She demonstratesan antalgic gait and right trunk lean during ambulation and in static standing. She also exhibits appreciable roberts left L4 myotomal weakness and 0/5 on Wadell's Testing. These deficits are affecting her ability to tolerate prolonged standing, walking, sitting, driving in the car, lifting objects, and completing her occupational demands. Her subjective and objective remained consistent and she was cooperative during her initial evaluation. She will benefit from skilled PT addressing her objectiveand functional deficits. STG to be met by 02/06/23 1) Patient will demonstrate normalized roberts left L4 myotomal strength to improve her gait mechanics. 2) Patient will demonstrate at least 75% of full lumbar AROM in all directions with no greater than2/10 low back pain to improve her tolerance for lifting. 3) Patient will be able to stand for at least 20 minutes with no greater than 2/10 low back pain toimprove her tolerance to prolonged activity. LTG to be met by discharge. 1) Patient independent with home exercise program 2) Patient to improve function on RADHA to 19% or less 3) Patient will return to completing her occupational demands without limitation due to her currentsubjective complaints. 4) Patient will drive for at least 20 minutes with no reported low back or left lower extremity radicular complaints. Plan: Physical Therapy Interventions: Therapeutic Exercise, Therapeutic Activity, Neuromuscular Reeducation, Gait Training, Manual Therapy, Hot/Cold, and Interferential Electrical Stimulation Frequency/Duration 3 times per week for 2 weeks Initial Certification Thank you for this referral. Kuldip Dempsey, PT Cc: Stephania Doyle - Case Adjustor Time-Based Code Calculator Minutes for Ther Ex/Ther Procedure (34724):: 10 minutes Minutes for Manual Therapy (97017):: 5 minutes Timed Code Treatment Minutes:: 15 minutes Total Treatment Time: 60 documented in this encounter Plan of Treatment Not on file documented as of this encounter Visit Diagnoses Diagnosis Sprain of ligaments of lumbar spine, initial encounter documented in this encounter Orders Outpatient Referral Count Last Ordered Date st Ordered Date AMB REFERRAL ORDER TO PHYSICAL THERAPY 1 documented in this encounter Care Teams Lime Hide Inspector Relationship Specialty Start Date End Date Lorie Vanessa NP [address] [place] [address] PCP - General Family Practice 05/29/22 No, Physician 06/08/21 documented as of this encounter
--- OUTSIDE RECORDS SUMMARY | 2024-06-06 00:32 | XMS_ITS | Encounter Summary ---
Author Organization [facility] Address [address] [place] [address] Care Team Providers Care Highway Maintenance Worker Name Role Phone No, Physician Unavailable Lorie Vanessa NP Primary Care Provider [phone] Reason for Visit * Auth/Cert (Routine) Specialty Diagnoses / Procedures Referred By Cyn burnett Referred To Contact Diagnoses Upper abdominal pain Nausea Diarrhea, unspecified type Gastroesophageal reflux disease without esophagitis Upper abdominal pain [R10.10] Nausea [R11.0] Diarrhea, unspecified type [R19.7] Gastroesophageal reflux disease without esophagitis [K21.9] Procedures NV ESOPHAGOGASTRODUODENOSCOPY TRANSORAL DIAGNOSTIC NV COLONOSCOPY,DIAGNOSTIC ESOPHAGOGASTRODUODENOSCOPY COLONOSCOPY Referral ID Status Reason Start Date Expiration Date Visits Re quested Visits Authorized [id number] 1 1 Encounter Details Date Type Department Care Team (Latest Contact Info) Description 01/09/2023 8:53 AM CDT - 01/09/2023 12:17 PM CDT Hospital Encounter [facility] [address] [place] [address] Cj Thomas MD [address] [address] Gastroesophageal reflux disease without esophagitis; Upper abdominal pain; Nausea; Diarrhea, unspecified type Discharge Disposition: Discharge to home or [...] on file Legal Sex Female 6:55 PM MANUAL TESTER Gender Identity Female 06/06/2022 7:40 AM MANUAL TESTER Sexual Orientation Not on file documented as of this encounter Last Filed Vital Signs Vital Sign Reading Time Taken Comments Blood Pressure 114/82 01/09/2023 11:35 AM CDT Pulse 71 01/09/2023 11:35 AM CDT Temperature 36.6 ??C (97.8 ??F) 01/09/2023 11:05 AM C DT Respiratory Rate 19 01/09/2023 11:35 AM CDT Oxygen Saturation 100% 01/09/2023 11:35 AM CDT Inhaled Oxygen Concentration - - [...] total) by mouth 2 (two) times a [id number] tablet 1 01/08/2023 at 0800 propranolol LA [...] - 01/09/2023 10:36 AM CDTAssociated Order(s): EGD [facility] GI ENDOSCOPY Patient Name: Teresa Cervantes Procedure Date: 01/09/2023 10:36 AM Date of : 1995 Admit Type: Outpatient Age: 27 Gender: Female Attending MD: Cj Thomas M.D. Room: [facility] ENDOSCOPY ROOM 06 Note Status: Finalized [...] On: 01/09/2023 10:36 AM Recognized by the [employer] for promoting quality in endoscopy * Cj Thomas MD - 01/09/2023 10:36 AM CDTAssociated Order(s): COLONOSCOPY [facility] GI ENDOSCOPY Patient Name: Teresa Cervantes Procedure Date: 01/09/2023 10:36 AM Date of : 1995 Admit Type: Outpatient Age: 27 Gender: Female Attending MD: Cj Thomas M.D. Room: [facility] ENDOSCOPY ROOM 06 Note Status: Finalized Procedure: Colonoscopy Indications: Chronic diarrhea alternating with constipation Referring MD: Lorie Vanessa F.N.P. Providers: Cj Thomas M.D. Medicines: Monitored Anesthesia Care Complications: No immediate complications. Estimated Blood Loss: Estimated blood loss: none. Procedure: The benefits, risks and alternatives of the procedure and sedation were discussed and informed consent was obtained. All questions were answered. Please refer to the signed informed consent document in the medical record. The scope was passed under direct vision. The [id number] colonoscope was introduced through the anus and [...] On: 01/09/2023 10:36 AM Recognized by the [employer] for promoting quality in endoscopy documented in this encounter Miscellaneous Notes * Pre-Procedure Instructions - Courtney Hurtado RN - 01/03/2023 2:42 PM CDT NPO after Midnight No alcohol or smoking 12 hours before surgery Marine teeth but do not swallow Shower or bathe, do not apply powders or lotions Expect to remove wigs, dentures, partials, contact lenses, body piercings and prosthesis Leave all jewelry and valuables at home Bring your glasses and hearing aide/s Make plans for responsible adult to drive you home or accompany you home Bring living will and/or power of civil litigation attorney paperwork if you have one Follow GI physician instructions regarding blood thinner and vitamins Bring inhalers Take prep according to GI physician Please take the following medications with a small sip of water the AM of procedure: none Covid - none Arriving at GI lab [facility] Building 1 ,Entrance A , Go to Outpatient surgery washing machine mechanic desk and check in 0900am documented in [...] Biopsy) 01/09/2023 10:54 AM CDT Narrative PATHOLOGY [facility] - 01/10/2023 1:04 PM CDT [facility] Department of Pathology [address] [place] [address] ?? Note to Patients: ??This report may [...] Final Report with Addendum Patient Name: TERESA CERVANTES : ??1995 (Age: 27) Gender: ??F Address: ??[address], [place] [address] [facility] #: [id number] Service: Gastro Location: Patient Type: [facility] OUTPATIENT ? Taken: 01/09/2023 Received: 01/09/2023 Accessioned: [...] submitted. ?? Labeled D1. Jar 0. ?? jjmhb/01/09/2023 13:32 GORDON Curiel Microscopic slide review and interpretation for this case was performed at [facility], Department of Surgical Pathology, [address] [facility] [place], [place] [id number], ??[place], [place] ??[address] ?? CLIA # [id number] us Cj Thomas MD LAB PATHOLOGY ORDERABLES Final R esult PATHOLOGY [facility] * EGD (01/09/2023 10:36 AM CDT) Anatomical Region Laterality Modality Other Narrative Procedure Note Cj Thomas MD - 01/09/2023 10:36 AM CDT [facility] GI ENDOSCOPY Patient Name: Teresa Cervantes Procedure Date: 01/09/2023 10:36 AM Date of : 1995 Admit Type: Outpatient Age: 27 Gender: Female Attending MD: Cj Thomas M.D. Room: [facility] ENDOSCOPY ROOM 06 Note Status: Finalized Procedure: Upper GI endoscopy Indications: Abdominal pain, Gastro-esophageal reflux disease, Nausea Referring MD: Sathya SherwoodNArminda Providers: Cj Thomas M.D. Medicines: Monitored Anesthesia [...] On: 01/09/2023 10:36 AM Recognized by the [employer] for promoting quality in endoscopy us Cj Thomas MD ENDOSCOPY PROCEDURES Final Resul t * COLONOSCOPY (01/09/2023 10:36 AM CDT) Anatomical Region Laterality Modality Other Narrative Procedure Note Cj Thomas MD - 01/09/2023 10:36 AM CDT [facility] GI ENDOSCOPY Patient Name: Teresa Cervantes Procedure Date: 01/09/2023 10:36 AM Date of : 1995 Admit Type: Outpatient Age: 27 Gender: Female Attending MD: Cj Thomas M.D. Room: [facility] ENDOSCOPY ROOM 06 Note Status: Finalized [...] The scope was passed under direct vision.The [id number] colonoscope was introduced through theanus and advanced [...] On: 01/09/2023 10:36 AM Recognized by the [employer] for promoting quality in endoscopy Cj Thomas MD ENDOSCOPY PROCEDURES Final Resul t * (ABNORMAL) POC Blood Gas and Chemistries, Venous - (01/09/2023 9:33 AM CDT) pH,mauro POC 7.37 7.32 - 7.43 [facility] pCO2, maruo POC 38(L) 40 - 50 mmHg [facility] pO2,mauro POC 58 mmHg [facility] Comment: Interpretive Data No reference range established. Current interpretive data was last revised 2020. HCO3, mauro (Calc) POC 22 20 - 30 mmol/L [facility] Base excess, mauro POC -3 mmol/L [facility] Comment: Interpretive Data No reference range established. Current interpretive data was last revised 2020. Hemoglobin, mauro POC 13.6 11.9 - 15.5 g/dL [facility] Hematocrit, mauro POC 40.0 35.6 - 45.5 % [facility] Sodium, mauro POC 140 135 - 145 mmol/L [facility] Potassium, mauro POC 3.8 3.3 - 4.9 mmol/L [facility] Comment: Interpretive Data This method is not able to assess for hemolysis, which may falsely increase potassium concentrations. If further testing is needed to evaluate this result, consider in-laboratory plasma potassium. Current Interpretive Data was last revised on 2022. Glucose, mauro POC 90 70 - 199 mg/dL [facility] Ionized Calcium, mauro POC 5.10 4.45 - 5.25 mg/dL [facility] Blood 01/09/2023 9:33 AM CDT 01/09/2023 9:33 AM CDT Cj Thomas MD LAB POCT ORDERABLES - DEVICE Fin al Result Performing Organization Address City/State/[facility] Co de Phone Number [place] [phone] [facility] Department [place] [address] * POCT hCG, urine (01/09/2023 9:21 AM CDT) HCG, ur, POC Negative Lot Number [id number] QC Backgroud Clear Acceptable QC Control Line Acceptable Urine 01/09/2023 9:21 AM CDT Trae Trent MD POINT OF CARE TEST ORDERABLES Final Result documented in this encounter Visit Diagnoses Diagnosis Gastroesophageal reflux disease without esophagitis Esophageal reflux Upper abdominal pain Nausea Nausea alone Diarrhea, unspecified type documented in this encounter Admitting Diagnoses Diagnosis [...] Ordered Date Lactated Ringer's (LR) infusion 1 3 lidocaine (XYLOCAINE) 10 mg/ mL (1 %) [...] 01/09/2023 documented in this encounter Care Teams Highway Maintenance Worker Relationship Specialty Start Date End Date Lorie Vanessa NP [address] [place] [address] PCP - General Family Practice 05/29/22 No, Physician 06/08/21 documented as of this encounter
--- OUTSIDE RECORDS SUMMARY | 2024-06-06 00:32 | XMS_ITS | Encounter Summary ---
Author Organization [facility] Healthcare Address [address] [place] [address] Care Team Providers Care Bus Attendant Name Role Phone No, Physician Unavailable Lorie Vanessa NP Primary Care Provider [phone] Encounter Details Date Type Department Care Team (Late st Contact Info) Description 01/07/2023 12:05 PM CDT Lab [facility] Lab [facility] [place] [address] Diarrhea, unspecified type Social History Tobacco Use Types Packs/Day Years [...] on file Legal Sex Female 6:55 PM CONE CLASSIFIER TENDER Gender Identity Female 06/06/2022 7:40 AM CONE CLASSIFIER TENDER Sexual Orientation Not on file documented as of this encounter Plan of Treatment Not on file documented as of this encounter Procedures Procedure Name Priority Date/Time Associated Diagnosis Comments C. DIFFICILE TESTING Routine 01/07/2023 12:09 PM CDT Diarrhea, unspecified type LACTOFERRIN,QL,STOOL Routine 01/07/2023 12:09 PM CDT Diarrhea, unspecified type CRYPTOSPORIDIUM AND GIARDIA ANTIGEN ASSAY Routine 01/07/2023 12:09 PM CDT STOOL CULTURE Routine 01/07/2023 12:09 PM CDT Diarrhea, unspecified type documented in this encounter Results * Cryptosporidium and Giardia antigen assay Stool (01/07/2023 12:09 PM CDT) Giardia Ag Negative Negative FRAN HAYS Comment:Testing performed by : [facility], [address] [place] [address]., [address] Cryptosporidium Ag Negative Negative FRAN HAYS Comment: Interpretive data: Testing performed by the [facility] using an immunoassay that detects Cryptosporidium and Giardia antigens in stool specimens. ??If comprehensive examination for ova and parasites is required, please request Ova and Parasite Examination . Testing performed by: [facility], [address] [place] [address]., [address] Stool 01/07/2023 12:0 9 PM CDT 01/08/2023 1:45 PM CDT us Cj Thomas MD LAB MICROBIOLOGY - GENERAL ORDER DVAIN Final Result FRAN HAYS [address] [facility] Department [place] [address] * (ABNORMAL) Stool culture Stool Rectum (01/07/2023 12:09 PM CDT) Direct Specimen Exam Shiga Toxin Testing: Antigen detection assay for Shiga-toxin NEGATIVE for Shiga Toxin 1 and Shiga Toxin 2. FRAN Comment:Testing performed by : [facility], [address] [place]., [address] Report Final Report: Enterococcus faecium Vancomycin Resistant Predominant organism. No growth of enteric bacterial pathogens (.) FRAN Comment:Testing performed by : [facility], [address] [place]., [address] Organism ENTEROCOCCUS FAECIUM [facility] Stool (Rectum) 01/07/2023 12 :09 PM CDT 01/07/2023 5:58 PM CDT Narrative [facility] - 01/11/2023 6:10 PM CDT received in [facility] Testing performed by [facility] ([phone]). Routine stool cultures include procedures to detect Salmonella, Shigella, Edwardsiella, Aeromonas, Pleisiomonas, Campylobacter, Yersinia, E. coli O157, and Shiga-like toxins. ?? Vibrio is cultured only upon special request. ??If Vibrio is suspected, please call the laboratory at [phone]. Interpretive data was last updated October 01, 2016. Cj Thomas MD LAB MICROBIOLOGY - GENERAL ORDER DAVIN Final Result [facility] [address] [facility] Department [place] [address] * C. difficile testing Stool (01/07/2023 12:09 PM CDT) Pathologist [facility] C. diff result Negative, DNA Negative , DNA [facility] C. diff interp Negative for toxigenic Clostridioides (Clostridium) difficile. ??Analysis performed by detection of gene(s) encoding C. difficile toxin(s). ??The nucleic acid detection assay used is cleared by the [place] Food and Drug administration and its performance characteristics have been verified by the performing laboratory. FRAN Stool 01/07/2023 12:0 9 PM CDT 01/07/2023 1:48 PM CDT Cj Thomas MD LAB MICROBIOLOGY - GENERAL ORDER DAVIN Final Result FRAN [address] [place] [address] * Lactoferrin, Fecal (01/07/2023 12:09 PM CDT) Lactoferrin, fecal Negative Negative FRAN Stool 01/07/2023 12:0 9 PM CDT 01/07/2023 1:48 PM CDT us Cj Thomas MD LAB BODY FLUIDS AND STOOLS ORDER DAVIN Final Result Performing Organization Address [facility] Co de Phone Number FRAN [address] [address] documented in this encounter Visit Diagnoses Diagnosis Diarrhea, unspecified type documented in this encounter Orders Lab Orders Without Results Count Last Ordered D ate First Ordered Date CRYPTOSPORIDIUM AND GIARDIA ANTIGEN ASSAY 1 01/07/2023 documented in this encounter Care Teams Bus Attendant Relationship Specialty Start Date End Date Lorie Vanessa NP [address] [place] [id number] PCP - General Family Practice 05/29/22 No, Physician 06/08/21 documented as of this encounter
--- OUTSIDE RECORDS SUMMARY | 2024-06-06 00:32 | XMS_ITS | Encounter Summary ---
Author Organization [facility] Address [address] [facility] [address] [place] [address] Care Team Providers Care Chemical Process Equipment Operator Name Role Phone No, Physician Unavailable Lorie Vanessa NP Primary Care Provider [phone] Encounter Details Date Type Department Care Team (Late st Contact Info) Description 12/27/[address] [facility] Gastroenterology at [address] [place] [address] Cj Thomas MD [address] [place] [address] [address] [place], [place] [id number] Social History Tobacco Use Types Packs/Day Years Used Date Smoking Tobacco: Never Smokeless Tobacco: Never PHQ-2 Answer Date Recorded PHQ-2 Total Score (If total score is 3 or more points, staff should administer the PHQ-9) 1 12/11/2022 Comments No Sex and Gender Information Value Date Recorded Sex Assigned at Not on file Legal Sex Female 6:55 PM BAND DIRECTOR Gender Identity Female 06/06/2022 7:40 AM BAND DIRECTOR Sexual Orientation Not on file documented as of this encounter Progress Notes * Cj Thomas MD - 12/27/2022 12:32 PM CDT I would a prior authorization with Dr. Nawaf Yap, mentioned prior endoscopies without biopsiesof the esophagus, EGD has been improved, authorization # [id number], expires June 25, 2023. documented in this encounter Plan of Treatment Not on file documented as of this encounter Visit Diagnoses Not on filedocumented in this encounter Care Teams Chemical Process Equipment Operator Relationship Specialty Start Date End Date Lorie Vanessa NP [address] [place] [phone] PCP - General Family Practice 05/29/22 No, Physician 06/08/21 documented as of this encounter
--- OUTSIDE RECORDS SUMMARY | 2024-06-06 00:32 | XMS_ITS | Encounter Summary ---
Author Organization [facility] Address [address] [facility] [address] [place] [address] Care Team Providers Care Human Resources Coordinator Name Role Phone No, Physician Unavailable Lorie Vanessa NP Primary Care Provider [phone] Encounter Details Date Type Department Care Team (Late st Contact Info) Description 01/03/2023 Telephone [facility] Primary Care at [place] [address] [facility] [address] [place] [address] Lorie Vnaessa NP [address] [place] [address] Social History Tobacco Use Types Packs/Day [...] on file Legal Sex Female 6:55 PM CONTROL INSPECTOR Gender Identity Female 06/06/2022 7:40 AM CONTROL INSPECTOR Sexual Orientation Not on file documented as of this encounter Ordered Prescriptions Prescription Sig Dispense Quantity Refills Last Filled Start Date End Date pantoprazole DR (PROTONIX) 40 mg EC tabletIndications: Nausea,Right upper quadrant pain,Gastroesophag eal reflux disease without esophagitis Take 1 tablet (40 mg total) by mouth 2 (two) times a day 180 tablet 1 01/03/2023 07/23/2023 documented in this encounter Miscellaneous Notes * Telephone Encounter - Lorie Vanessa NP - 01/03/2023 11:41 AM CDT Sent prescription for pantoprazole 40 mg twice daily to pharmacy per patient request. documented in this encounter Plan of Treatment Not on file documented as of this encounter Visit Diagnoses Diagnosis Nausea- Primary Nausea alone Right upper quadrant pain Abdominal pain, right upper quadrant Gastroesophageal reflux disease without esophagitis Esophageal reflux documented in this encounter Discontinued Medications Medication Sig Discontinue Reason Start Date End Da te pantoprazole DR (PROTONIX) 40 mg EC tabletIndications:Nausea ,Upper abdominal pain Take 1 tablet (40 mg total) by mouth daily Dose adjustment 12/18/2022 01/03/2023 documented as of this encounter Care Teams Human Resources Coordinator Relationship Specialty Start Date End Date Lorie Vanessa NP [address] [place] [id number] PCP - General Family Practice 05/29/22 No, Physician 06/08/21 documented as of this encounter
--- OUTSIDE RECORDS SUMMARY | 2024-06-06 00:32 | XMS_ITS | Encounter Summary ---
Author Organization [facility] Address [address] [place] [address] Phone Care Team Providers Care Reed Worker Name Role Phone No, Physician Unavailable Lorie Vanessa NP Primary Care Provider [phone] Encounter Details Date Type Department Care Team (Late st Contact Info) Description 12/20/[address] [facility] Allergy and Immunology [address] [facility] [address] [place] [address] Karlene Montalvo MA Social History Tobacco Use Types Packs/Day Years Used Date Smoking Tobacco: Never Smokeless Tobacco: Never PHQ-2 Answer Date Recorded PHQ-2 Total Score (If total score is 3 or more points, staff should administer the PHQ-9) 1 12/11/2022 Comments No Sex and Gender Information Value Date Recorded Sex Assigned at Not on file Legal Sex Female 6:55 PM PRINCIPAL TECHNICAL WRITER Gender Identity Female 06/06/2022 7:40 AM PRINCIPAL TECHNICAL WRITER Sexual Orientation Not on file documented as of this encounter Miscellaneous Notes * Telephone Encounter - Karlene Montalvo MA - 12/20/2022 2:05 PM CDT Called Patient left VoiceMail about Injections getting started MALIKA GARCIA 12/20/22 2:07PM documented in this encounter Plan of Treatment Not on file documented as of this encounter Visit Diagnoses Not on filedocumented in this encounter Care Teams Reed Worker Relationship Specialty Start Date End Date Lorie Vanessa NP [address] [place] [phone] PCP - General Family Practice 05/29/22 No, Physician 06/08/21 documented as of this encounter
--- OUTSIDE RECORDS SUMMARY | 2024-06-06 00:32 | XMS_ITS | Encounter Summary ---
Author Organization [facility] Address [address] [place] [address] Phone Care Team Providers Care Municipal Clerk Name Role Phone No, Physician Unavailable Lorie Vanessa NP Primary Care Provider [phone] Encounter Details Date Type Department Care Team (Late st Contact Info) Description 12/20/2022 Treatment [facility] Allergy and Immunology [address] 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); Allergic conjunctivitis, bilateral; Seasonal allergic rhinitis, unspecified trigger Social History Tobacco Use Types Packs/Day Years Used Date Smoking Tobacco: Never Smokeless Tobacco: Never PHQ-2 Answer Date Recorded PHQ-2 Total Score (If total score is 3 or more points, staff should administer the PHQ-9) 1 12/11/2022 Comments No Sex and Gender Information Value Date Recorded Sex Assigned at Not on file Legal Sex Female 6:55 PM WHEELABRATOR OPERATOR Gender Identity Female 06/06/2022 7:40 AM WHEELABRATOR OPERATOR Sexual Orientation Not on file documented as of this encounter Progress Notes * Charmaine Weber CMA - 12/20/2022 11:59 PM CDT 12 vials 60 mL 105 doses documented in this encounter Plan of Treatment Not on file documented as of this encounter Procedures Procedure Name Priority Date/Time Associated Diagnosis Comments IMMUNOTHERAPY PRESCRIPTION Routine 12/20/2022 12:00 AM CDT Allergic rhinitis due to animal hair and dander Seasonal allergic rhinitis, unspecified trigger documented in this encounter Results * Immunotherapy prescription (12/20/2022 12:00 AM CDT) Jackson Elliott MD PhD IN CLINIC/BEDSIDE O RDERABLES Final Result documented in this encounter Visit Diagnoses Diagnosis Allergic rhinitis due to animal hair and dander- Primary Allergic rhinitis due to animal (cat) (dog) hair and dander Allergic conjunctivitis, bilateral Other chronic allergic conjunctivitis Seasonal allergic rhinitis, unspecified trigger documented in this encounter Care Teams Municipal Clerk Relationship Specialty Start Date End Date Lorie Vanessa NP [address] [place] [phone] PCP - General Family Practice 05/29/22 No, Physician 06/08/21 documented as of this encounter
--- OUTSIDE RECORDS SUMMARY | 2024-06-06 00:32 | XMS_ITS | Encounter Summary ---
Author Organization [facility] Address [address] [facility] [address] [place] [address] Care Team Providers Care Glaze Mixer Name Role Phone No, Physician Unavailable Lorie Vanessa NP Primary Care Provider [phone] Encounter Details Date Type Department Care Team (Late st Contact Info) Description 01/08/2023 Orders Only [facility] Gastroenterology at [address] [place] [address] Cj Thomas MD [address] [place] [address] [address] [place] [address] Diarrhea, unspecified type (Primary Dx) Social History Tobacco Use Types [...] on file Legal Sex Female 6:55 PM UAT TESTER Gender Identity Female 06/06/2022 7:40 AM UAT TESTER Sexual Orientation Not on file documented as of this encounter Plan of Treatment Not on file documented as of this encounter Visit Diagnoses Diagnosis Diarrhea, unspecified type- Primary documented in this encounter Care Teams Glaze Mixer Relationship Specialty Start Date End Date Lorie Vanessa NP [address] [place] [id number] PCP - General Family Practice 05/29/22 No, Physician 06/08/21 documented as of this encounter
--- OUTSIDE RECORDS SUMMARY | 2024-06-06 00:33 | XMS_ITS | Encounter Summary ---
Author Organization [facility] Healthcare Address [address] [place] [address] Care Team Providers Care Experimental Mechanic Electrical Name Role Phone No, Physician Unavailable Lorie Vanessa NP Primary Care Provider [phone] Encounter Details Date Type Department Care Team (Late st Contact Info) Description 11/21/2022 Orders Only [facility] Nuclear Medicine [address] [place] [address] Dereck Nichols, DO [address] [place] [address] Social History Tobacco Use Types Packs/Day Years Used Date Smoking Tobacco: Never Smokeless Tobacco: Never PHQ-2 Answer Date Recorded PHQ-2 Total Score (If total score is 3 or more points, staff should administer the PHQ-9) 0 04/12/2022 Comments No Sex and Gender Information Value Date Recorded Sex Assigned at Not on file Legal Sex Female 6:55 PM PLASTICS BENCH MECHANIC Gender Identity Female 06/06/2022 7:40 AM PLASTICS BENCH MECHANIC Sexual Orientation Not on file documented as of this encounter Plan of Treatment Not on file documented as of this encounter Procedures Procedure Name Priority Date/Time Associated Diagnosis Comments NM HEPATOBILIARY IMAGING W PHARMACEUTICAL INTERVENTION Schedule Routine, Read Routine (OP Routine) 11/23/2022 2:35 PM CDT documented in this encounter Results * NM Hepatobiliary Imaging W GBEF (11/23/2022 2:35 PM CDT) Anatomical Region Laterality Modality Body N/A Nuclear Medicine 11/23/2022 2:38 PM CDT Narrative 11/23/2022 2:48 PM CDT EXAM DESCRIPTION: ?? NM HEPATOBILIARY IMAGING W PHARMACEUTICAL INTERVENTION REASON FOR STUDY: Right upper quadrant abdominal pain with nausea vomiting and diarrhea for 1 week. RADIOPHARMACEUTICAL: 5 ??mCi Tc-99m mebrofenin via a ??right hand ??IV site and 8 oz Ensure Plus or equivalent p.o. COMPARISON: 11/21/2022 and right upper quadrant ultrasound 11/21/2022. ?? TECHNIQUE: Following the intravenous administration of the radiopharmaceutical, sequential abdominal images were obtained. ??A region of interest was drawn around the gallbladder with an ejection fraction calculated. FINDINGS: There is prompt, homogenous tracer localization throughout the liver. There is normal visualization of the intrahepatic ducts, common bile duct, and gallbladder. ??There is normal biliary to bowel transit. Following the oral administration of Ensure Plus, the gallbladder ejection fraction was calculated and was ??54 % (normal: greater than 40%, equivocal: 30-40%, and abnormal: less than 30%). IMPRESSION: 1. ?? No evidence of cystic duct obstruction. 2. ?? Normal gallbladder ejection fraction. ?? THIS IS AN ELECTRONICALLY VERIFIED FINAL REPORT 11/23/2022 2:48 PM - Electronically signed by ??Zaheer Berry M.D. CH: CH D: ??11/23/2022 2:48 PM T: ??11/23/2022 2:48 PM Report ID: [id number] Reading Location: ??[id number] Procedure Note Zaheer Berry Jr., MD - 11/23/2022 EXAM DESCRIPTION: NM HEPATOBILIARY IMAGING W PHARMACEUTICAL INTERVENTION REASON FOR STUDY: Right upper quadrant abdominal pain with nausea vomitingand diarrhea for 1 week. RADIOPHARMACEUTICAL: 5 mCi Tc-99m mebrofenin via a right hand IV siteand 8 oz Ensure Plus or equivalent p.o. COMPARISON: 11/21/2022 and right upper quadrant ultrasound 11/21/2022. TECHNIQUE: Following the intravenous administration of the radiopharmaceutical, sequential abdominal images were obtained. A regionof interest was drawn around the gallbladder with an ejection fraction calculated. FINDINGS: There is prompt, homogenous tracer localization throughout the liver. There is normal visualization of the intrahepatic ducts, commonbile duct, and gallbladder. There is normal biliary to bowel transit. Following the oral administration of Ensure Plus, the gallbladder ejection fraction was calculated and was 54 % (normal: greater than 40%,equivocal: 30-40%, and abnormal: less than 30%). IMPRESSION: 1. No evidence of cystic duct obstruction. 2. Normal gallbladder ejection fraction. THIS IS AN ELECTRONICALLY VERIFIED FINAL REPORT 11/23/2022 2:48 PM - Electronically signed by Zaheer Berry M.D. CH: CH Report ID: [id number] Reading Location: [id number] us Dereckmarlys Elaineik DO IMG NM PROCEDURES Final Result documented in this encounter Visit Diagnoses Not on filedocumented in this encounter Additional Health Concerns Infection Onset Date Last Indicated Resolved Time COVID: Suspected 05/29/2023 05/29/2023 05/29/2023 5:07 PM PLASTICS BENCH MECHANIC COVID: Suspected 07/05/2023 07/05/2023 07/05/2023 8:07 PM PLASTICS BENCH MECHANIC C. difficile suspected 03/05/2024 03/05/202403/05 5:29 PM CDT documented as of this encounter Care Teams Experimental Mechanic Electrical Relationship Specialty Start Date End Date Lorie Vanessa NP [address] [place] [phone] PCP - General Family Practice 05/29/22 No, Physician 06/08/21 documented as of this encounter
--- OUTSIDE RECORDS SUMMARY | 2024-06-06 00:33 | XMS_ITS | Encounter Summary ---
Author Organization [facility] Address [address] [facility] [address] [place] [address] Care Team Providers Care Vehicle Dismantler Name Role Phone No, Physician Unavailable Lorie Vanessa NP Primary Care Provider [phone] Encounter Details Date Type Department Care Team (Late st Contact Info) Description 10/08/2022 Telephone [facility] Primary Care at [place] [address] [facility] [address] [place] [address] Lorie Vanessa NP [address] [place] [address] Social History Tobacco Use Types Packs/Day Years Used Date Smoking Tobacco: Never Smokeless Tobacco: Never PHQ-2 Answer Date Recorded PHQ-2 Total Score (If total score is 3 or more points, staff should administer the PHQ-9) 0 04/12/2022 Comments No Sex and Gender Information Value Date Recorded Sex Assigned at Not on file Legal Sex Female 6:55 PM REPAIRER HAIRSPRING Gender Identity Female 06/06/2022 7:40 AM REPAIRER HAIRSPRING Sexual Orientation Not on file documented as of this encounter Miscellaneous Notes * Telephone Encounter - Shilo Michael MA - 10/08/2022 2:14 PM CDT 2nd pap Faxed request for most recent Refer to prior request for provider information. documented in this encounter Plan of Treatment Not on file documented as of this encounter Visit Diagnoses Not on filedocumented in this encounter Care Teams Vehicle Dismantler Relationship Specialty Start Date End Date Lorie Vanessa NP [address] [place] [phone] PCP - General Family Practice 05/29/22 No, Physician 06/08/21 documented as of this encounter
--- OUTSIDE RECORDS SUMMARY | 2024-06-06 00:33 | XMS_ITS | Encounter Summary ---
Author Organization [facility] Address [address] [place] [address] Phone Care Team Providers Care Winterizer Name Role Phone No, Physician Unavailable Lorie Vanessa NP Primary Care Provider [phone] Encounter Details Date Type Department Care Team (Late st Contact Info) Description 11/01/2022 Orders Only [facility] Allergy and Immunology [address] [facility] [address] [place] [address] Jakcson Dodd MD PhD [address] [facility] [address] [place] [address] Chronic cough Social History Tobacco Use Types Packs/Day Years Used Date Smoking Tobacco: Never Smokeless Tobacco: Never PHQ-2 Answer Date Recorded PHQ-2 Total Score (If total score is 3 or more points, staff should administer the PHQ-9) 0 04/12/2022 Comments No Sex and Gender Information Value Date Recorded Sex Assigned at Not on file Legal Sex Female 6:55 PM FLOORING MECHANIC Gender Identity Female 06/06/2022 7:40 AM FLOORING MECHANIC Sexual Orientation Not on file documented as of this encounter Ordered Prescriptions Prescription Sig Dispense Quantity Refills Last Filled Start Date End Date levalbuterol (XOPENEX HFA) 45 mcg/actuation inhalerIndications :Chronic cough Inhale 1-2 puffs every 6 (six) hours as needed for wheezing 1 each 3 11/01/2022 documented in this encounter Progress Notes * Vera Nolan, KAYLEY - 11/01/2022 9:36 AM CDT Patient requested change of pharmacy for levalbuterol prescription. documented in this encounter Plan of Treatment Not on file documented as of this encounter Visit Diagnoses Diagnosis Chronic cough Cough documented in this encounter Discontinued Medications Medication Sig Discontinue Reason Start Date End Da te levalbuterol (XOPENEX HFA) 45 mcg/actuation inhalerIndications:Registered Mail Clerk shalini cough Inhale 1-2 puffs every 6 (six) hours as needed for wheezing Reorder 09/04/2022 11/01/2022 documented as of this encounter Care Teams Winterizer Relationship Specialty Start Date End Date Lorie Vanessa NP [address] [place] [id number] PCP - General Family Practice 05/29/22 No, Physician 06/08/21 documented as of this encounter
--- OUTSIDE RECORDS SUMMARY | 2024-06-06 00:33 | XMS_ITS | Encounter Summary ---
Author Organization [facility] Address [address] [place] [address] Phone Care Team Providers Care Executive Officer Name Role Phone No, Physician Unavailable Lorie Vanessa NP Primary Care Provider [phone] Reason for Visit * Reason Onset Date Comments Approval Letter 10/02/2022 Encounter Details Date Type Department Care Team (Late st Contact Info) Description 10/02/2022 Documentation [facility] [address] [place] [address] Vera Nolan RN Approval Letter Social History Tobacco Use Types Packs/Day Years Used Date Smoking Tobacco: Never Smokeless Tobacco: Never PHQ-2 Answer Date Recorded PHQ-2 Total Score (If total score is 3 or more points, staff should administer the PHQ-9) 0 04/12/2022 Comments No Sex and Gender Information Value Date Recorded Sex Assigned at Not on file Legal Sex Female 6:55 PM POTATO BUCKER Gender Identity Female 06/06/2022 7:40 AM POTATO BUCKER Sexual Orientation Not on file documented as of this encounter Progress Notes * Vera Nolan RN - 10/02/2022 9:53 AM CDT Fax received from [employer] stating patient's Levalbuterol tartrate hfa 45 mcg HFA AER AD lila approved from 08/28/22-09/27/23. Patient notified. Approval letter sent for scanning documented in this encounter Plan of Treatment Not on file documented as of this encounter Visit Diagnoses Not on filedocumented in this encounter Care Teams Executive Officer Relationship Specialty Start Date End Date Lorie Vanessa NP [address] [place] [phone] PCP - General Family Practice 05/29/22 No, Physician 06/08/21 documented as of this encounter
--- OUTSIDE RECORDS SUMMARY | 2024-06-06 00:33 | XMS_ITS | Encounter Summary ---
Author Organization [facility] Address [address] [place] [id number] Care Team Providers Care Glass Carrier Name Role Phone No, Physician Unavailable Lorie Vanessa NP Primary Care Provider [phone] Encounter Details Date Type Department Care Team (Late st Contact Info) Description 10/11/2022 Telephone [facility] [place] [address] [place] [address] Lorie Vanessa NP [address] [place] [phone] Social History Tobacco Use Types Packs/Day Years Used Date Smoking Tobacco: Never Smokeless Tobacco: Never PHQ-2 Answer Date Recorded PHQ-2 Total Score (If total score is 3 or more points, staff should administer the PHQ-9) 0 04/12/2022 Comments No Sex and Gender Information Value Date Recorded Sex Assigned at Not on file Legal Sex Female 6:55 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 We need to know where her most recent pap was done. We contacted Dr Garcia ([facility]) and they said they do not see any results. documented in this encounter Plan of Treatment Not on file documented as of this encounter Visit Diagnoses Not on filedocumented in this encounter Care Teams Glass Carrier Relationship Specialty Start Date End Date Lorie Vanessa NP [address] [place] [id number] PCP - General Family Practice 05/29/22 No, Physician 06/08/21 documented as of this encounter
--- OUTSIDE RECORDS SUMMARY | 2024-06-06 00:33 | XMS_ITS | Encounter Summary ---
Author Organization [facility] Healthcare Address [address] [place] [address] Care Team Providers Care Gas Technician Name Role Phone No, Physician Unavailable Lorie Vanessa NP Primary Care Provider [phone] Reason for Referral * Diagnostic Imaging (Routine) - Closed Specialty Diagnoses / Procedures Referred By Cyn brunett Referred To Contact Procedures NM Hepatobiliary Imaging W Dereck Seymour DO [address] [place] [address] Phone: tel: fax: [address] [phone] Referral ID Status Reason Start Date Expiration Date Visits Re quested Visits Authorized [id number] Closed 11/21/2022 12/21/2023 2 1 * Diagnostic Imaging (Routine) - Closed Specialty Diagnoses / Procedures Referred By Cyn burnett Referred To Contact Procedures NM Hepatobiliary Imaging W Dereck Seymour DO [address] [place] [address] Phone: tel: fax: [address] [place] [address] Referral ID Status Reason Start Date Expiration Date Visits Re quested Visits Authorized [id number] Closed 11/21/2022 12/21/2023 2 2 Reason for Visit * Reason Comments Abdominal Pain Syncope Encounter Details Date Type Department Care Team (Late st Contact Info) Description 11/21/2022 12:03 AM CDT - 11/21/2022 4:47 PM CDT Emergency [facility] Emergency Department [address] [place] [id number] Milton Jin DO [address] [place] [address] Dereck Nichols DO [address] [place] [address] Abdominal pain (Primary Dx) Discharge Disposition: Discharge to home [...] on file 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 Gender Identity Female 06/06/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 Sexual Orientation Not on file documented as of this encounter Last Filed Vital Signs Vital Sign Reading Time Taken Comments Blood Pressure 111/64 11/21/2022 2:06 PM CDT Pulse 73 11/21/2022 2:06 PM CDT Temperature 36.7 ??C (98 ??F) 11/20/2022 8:11 PM CDT Respiratory Rate 16 11/21/2022 11:1 5 AM CDT Oxygen Saturation 99% 11/21/2022 2:06 PM CDT Inhaled Oxygen Concentration - - Weight 137.8 kg (303 lb 12.7 oz) 11/20/2022 8:11 PM CDT Height - - Body Mass Index 52.15 09/04/2022 8:54 AM CDT documented in this encounter Discharge Instructions * Discharge Instructions* Dereck Nichols DO - 11/21/2022 12:29 AM CDT Follow up for outpatient HIDA Scan. Will call when it is set up. * Attachments The following attachments cannot be sent through Care Everywhere. * Abdominal Pain (Discharge Care) (Haitian) documented in this encounter Medications at Time of Discharge clonazePAM (KlonoPIN) 0.5 mg tablet Take 1 [...] daily if symptoms persist 16.9 mL 09/04/2022 budesonide-formoter oL (Symbicort) 80-4.5 mcg/actuation inhalerIndications: Maintenance Therapy for Asthma Inhale 2 puffs 2 (two) times a day Rinse mouth with water after use to prevent thrush. Do not swallow. 1 each 11 09/04/2022 3 famotidine (PEPCID) 40 mg tabletIndications:G astroesophageal reflux disease without esophagitis Take 1 tablet (40 mg total) by mouth nightly as needed for heartburn 30 tablet 3 08/21/2022 3 levalbuterol (XOPENEX HFA) 45 mcg/actuation inhalerIndications: Chronic cough Inhale 1-2 puffs every 6 (six) hours as needed for wheezing 1 each 3 11/01/2022 3 magnesium oxide (MAG-OX) 400 mg (241.3 mg elemental magnesium) tablet TAKE 1 TABLET(400 MG) BY MOUTH DAILY 90 tablet 10/08/2022 3 norethindrone (MICRONOR) 0.35 mg tablet Take 1 tablet (0.35 mg total) by mouth daily 05/12/2021 3 ondansetron (ZOFRAN) 4 mg tablet Take 1 tablet (4 mg total) by mouth every 4 (four) hours as needed for nausea or vomiting 20 tablet 11/21/2022 3 ondansetron ODT (ZOFRAN-ODT) 8 mg disintegrating tabletIndications:N ausea DISSOLVE 1 TABLET(8 MG) ON THE TONGUE EVERY 8 HOURS NEEDED FOR NAUSEA OR VOMITING 30 tablet 11/05/2022 3 oxyCODONE (ROXICODONE) 5 mg immediate release tabletIndications:P ain Take 1 tablet (5 mg total) by mouth every 4 (four) hours as needed for pain 15 tablet 11/21/[address] (PROTONIX) 40 mg EC tabletIndications:N ausea,Upper abdominal pain TAKE 1 TABLET(40 MG) BY MOUTH TWICE DAILY 60 tablet 1 10/08/2022 3 promethazine (PHENERGAN) 25 mg tablet Take 1 tablet (25 mg total) by mouth every 6 (six) hours as needed for nausea or vomiting 20 tablet 07/07/2022 3 propranolol LA (INDERAL LA) 60 mg 24 hr capsule Take 1 capsule (60 mg total) by mouth daily 30 capsule 11 07/13/2022 4 traZODone (DESYREL) 150 mg tablet Take 1 tablet (150 mg total) by mouth nightly at bedtime 06/25/2022 3 documented as of this encounter Ordered Prescriptions Prescription Sig Dispense Quantity Refills Last Filled Start Date End Date oxyCODONE (ROXICODONE) 5 mg immediate release tabletIndications: Pain Take 1 tablet (5 mg total) by mouth every 4 (four) hours as needed for pain 15 tablet 11/21/2022 3 ondansetron (ZOFRAN) 4 mg tablet Take 1 tablet (4 mg total) by mouth every 4 (four) hours as needed for nausea or vomiting 20 tablet 11/21/2022 3 documented in this encounter Discharge Disposition Disposition Code Departure Means Destination Comment s Discharge to home or self care documented in this encounter ED Notes * Milton Jin, - 11/21/2022 12:23 AM CDT HPI Chief Complaint Patient presents with ??? Abdominal Pain ??? Syncope HPI 12:23 AM Emily Guerrier is a 27 y.o. female w/ PMHx including DM presenting to the ED w/ c/o abdominal pain. Pt endorses associated dizziness, nausea, vomiting, and diarrhea. Pt states she had an ultra sound done a couple of month ago, and was reportedly normal. Pt notes she fell today, secondary to lightheadedness. Pt states I stood up then I wasn't standing. Pt describes her pain as sharp/stabby and non radiating presenting in the RUQ. Pt denies headache or any other associated symptoms. PCP: Dr. Vanessa Patient History: No past medical history on file. Past Surgical History: Procedure Laterality Date ??? BAND HEMORRHOIDECTOMY Family History Problem Relation Age of Onset ??? Hypertension Mother ??? COPD Mother ??? Squamous cell carcinoma Father ??? Heart failure Brother ??? Diabetes Maternal Grandmother Family history of diabetes mellitus - (Added by TW Conv) ??? Mental illness Maternal Grandmother Family history of mental disorder - (Added by TW Conv) Social History Tobacco Use ??? Smoking status: Never ??? Smokeless tobacco: Never Substance and Sexual Activity ??? Drug use: Not on file ??? Sexual activity: Not on file Alcohol Use: Not on file No current facility-administered medications for this encounter. Current Outpatient Medications: ??? budesonide-formoteroL (Symbicort) 80-4.5 mcg/actuation inhaler ??? clonazePAM (KlonoPIN) 0.5 mg tablet ??? famotidine (PEPCID) 40 mg tablet ??? lamoTRIgine (LaMICtal) 100 mg tablet ??? levalbuterol (XOPENEX HFA) 45 mcg/actuation inhaler ??? magnesium oxide (MAG-OX) 400 mg (241.3 mg elemental magnesium) tablet ??? norethindrone (MICRONOR) 0.35 mg tablet ??? ondansetron ODT (ZOFRAN-ODT) 8 mg disintegrating tablet ??? pantoprazole DR (PROTONIX) 40 mg EC tablet ??? promethazine (PHENERGAN) 25 mg tablet ??? propranolol LA (INDERAL LA) 60 mg 24 hr capsule ??? sertraline (ZOLOFT) 100 mg tablet ??? traZODone (DESYREL) 150 mg tablet ??? triamcinolone (NASACORT) 55 mcg nasal inhaler Review of Systems Review of Systems Constitutional: Negative for chills and fever. HENT: Negative for ear pain and sore throat. Eyes: Negative for pain and visual disturbance. Respiratory: Negative for cough and shortness of breath. Cardiovascular: Negative for chest pain and palpitations. Gastrointestinal: Positive for abdominal pain, diarrhea, nausea and vomiting. Genitourinary: Negative for dysuria and hematuria. Musculoskeletal: Negative for arthralgias and back pain. Skin: Negative for color change and rash. Neurological: Positive for dizziness and light-headedness. Negative for seizures and syncope. All other systems reviewed and are negative. All systems reviewed and are negative or non contributory for this patients presentation today other than as stated in the HPI . Physical Exam ED Triage Vitals [11/20/222010] Temp Pulse Resp BP SpO2 36.7 ??C (98 ??F) 78 20 140/84 99 % Temp src Heart Rate Source Patient Position BP Location FiO2 (%) Oral -- -- -- -- Height Height Method Weight Weight Method -- -- (!) 137.8 kg (303 lb 12.7 oz) Standing scale Physical Exam Vitals and nursing note reviewed. Constitutional: General: She is not in acute distress. Appearance: She is morbidly obese. HENT: Head: Normocephalic and atraumatic. Eyes: Conjunctiva/sclera: Conjunctivae normal. Cardiovascular: Rate and Rhythm: Normal rate and regular rhythm. Heart sounds: No murmur heard. Pulmonary: Effort: Pulmonary effort is normal. No respiratory distress. Breath sounds: Normal breath sounds. Abdominal: Palpations: Abdomen is soft. Tenderness: There is abdominal tenderness in the right upper quadrant and epigastric area. There isno guarding or rebound. Musculoskeletal: General: No swelling. Cervical back: Neck supple. Skin: General: Skin is warm and dry. Capillary Refill: Capillary refill takes less than 2 seconds. Neurological: Mental Status: She is alert. Psychiatric: Mood and Affect: Mood normal. Procedures MDM Labs Reviewed CBC WITH AUTO DIFFERENTIAL - Abnormal Result Value WBC 11.4 (*) Hgb 13.9 Hct 42.5 Plt 416 (*) MPV 8.3 (*) RBC 4.93 MCV 86.2 MCH 28.2 MCHC 32.7 RDW CV 12.3 RDW SD 38.6 NRBC abs 0.00 DIFFERENTIAL AUTO - Abnormal Neutrophil abs 7.6 (*) Imm gran abs 0.0 Lymphocyte abs 2.7 Monocyte abs 0.8 Eosinophil abs 0.3 Basophil abs 0.1 Neutrophil pct 66.1 Imm gran pct 0.4 Lymphocyte pct 23.5 Monocyte pct 6.9 Eosinophil pct 2.2 Basophil pct 0.9 POCT HCG, URINE - Normal HCG, ur, POC Negative Lot Number [id number] QC Backgroud Clear Acceptable QC Control Line Acceptable URINALYSIS AND REFLEX TO MICROSCOPIC AND CULTURE Color, ur Yellow Clarity, ur Clear Specific gravity, ur 1.013 pH, urine 5.0 Protein, ur ql Negative Glucose, ur ql Negative Ketones, ur Negative Bilirubin, ur Negative Blood, ur Negative Urobilinogen, ur <2.0 Nitrite, ur Negative Leukocyte esterase, ur Negative UA reflex comment Value: Reflex conditions for microscopic UA and culture not met. Narrative: Urine pH is affected by diet, medications, systemic acid-base disturbances, and renal tubular function. pH may affect urinary stone formation. For example, urine pH below 6.0 may help reduce the tendency for calcium phosphate stones and pH greater than 6.0 may reduce the tendency for uric acid stone formation. Source: Arley zkipster.Last revised 06-06-2017 N. GONORRHOEAE/C. TRACHOMATIS AMPLIFICATION C. trachomatis Not Detected N. gonorrhoeae Not Detected TRICHOMONAS VAGINALIS PCR COMPREHENSIVE METABOLIC PANEL Sodium 140 Potassium, pl 4.2 Chloride 105 CO2 23 Anion gap 12 BUN 7 Creatinine 0.70 Glucose 138 Calcium 9.4 Bilirubin, total 0.3 Protein, pl 7.6 Albumin 4.3 Alk phos 83 ALT 18 AST 20 LIPASE Lipase 26 TROPONIN T HIGH-SENSITIVITY SERIES (BASELINE, 2HR, 4HR, 6HR) Trop T hs <6 TROPONIN T HIGH-SENSITIVITY 2-HOUR Trop T hs <6 Trop T hs delta 0 Trop T hs interp Insignificant EGFR eGFR 123 TROPONIN T HIGH-SENSITIVITY 4-HR TROPONIN T HIGH-SENSITIVITY 6-HOUR CT Abdomen Pelvis W Contrast EXAM DESCRIPTION: CT ABDOMEN PELVIS W CONTRAST REASON FOR STUDY: Nausea/vomiting, Abdominal pain, acute, nonlocalized Pt arrives with c/o RUQ abdominal pain for 1 week with accompanying N/V/D. Pt reports that today she had a syncopal episode prior to arrival. TECHNIQUE: CT scan of the abdomen and pelvis performed with intravenous and without oral contrast using helical scanning technique with dynamic intravenous contrast injection. Reconstructed coronal and sagittal MPR images reviewed. All images stored on PACS. Automated exposure control was used as a dose optimization technique for this examination. CONTRAST TYPE/DOSE: 100mL of IOVERSOL 350 MG IODINE/ML INTRAVENOUS SYRINGE injected via intravenous COMPARISON: None available scratch is CT dated July 07, 2022 REFERENCE: Per ACR white paper recommendations, unless otherwise specified no follow-up imaging is recommended for incidental renal and adrenal lesions per consensus recommendations based on imaging criteria. Further lab evaluation could be pursued based on clinical findings. FINDINGS: LOWER CHEST: No significant pulmonary abnormalities. No effusion. LIVER: Normal size. No identified cystic or solid masses. GALLBLADDER: No stones identified. No wall thickening or inflammatory changes. BILE DUCTS: No intrahepatic or extrahepatic ductal dilatation. SPLEEN: Normal size. No focal lesions. PANCREAS: No identified cystic or solid masses. No significant calcifications. No adjacent inflammation or peripancreatic fluid collections. Pancreatic duct not dilated. ADRENALS: Normal. KIDNEYS/URINARY TRACT: No identified significant cystic or solid masses. No visualized stones. No hydronephrosis or hydroureter. Symmetric enhancement. Urinary bladder is unremarkable. GI: No dilated bowel loops. No obvious wall thickening. Normal appendix. No significant diverticular disease. PERITONEUM: No ascites or free air. RETROPERITONEUM: No mass or adenopathy. REPRODUCTIVE: No significant abnormality. VASCULATURE: No abdominal aortic aneurysm. MUSCULOSKELETAL: No significant abnormality. OTHER: No other abnormality. IMPRESSION: No acute finding. THIS IS AN ELECTRONICALLY VERIFIED FINAL REPORT 11/20/2022 9:32 PM - Electronically signed by Homero Albert M.D. JA: YAMEL Report ID: [id number] Reading Location: [id number] BP 140/84 Pulse 78 Temp 36.7 ??C (98 ??F) (Oral) Resp 20 Wt (!) 137.8 kg (303 lb 12.7 oz) SpO2 99% BMI 52.15 kg/m?? MDM Amount and/or Complexity of Data Reviewed Clinical lab tests: reviewed Tests in the radiology section of CPT??: reviewed Independent visualization of images, tracings, or specimens: yes ED Course as of 11/21/22255 Time: 11/21 26 Comment: Pt is to have HIDA scan completed as OutPt By: Carl Francois Time: 11/21 252 Comment: Pt has been re-evaluated. Nuclear medicine arrives at 0700, 4 hours from now. Pt is still experiencing nausea, will have the Pt complete a HIDA scan here rather than complete it as OutPt. Ptagreeable and states she would like to stay overnight to receive HIDA scan By: Carl Francois Clinical Impression: No diagnosis found. This note was prepared by Carl Francois, acting as a Scribe for Milton Jin DO. I electronically signed this note at 12:23 AM on 11/21/2022. I, Milton Jin DO, personally performed the services described in this documentation, reviewed and edited the documentation which was dictated to the scribe in my presence, and it accurately records my words and actions. Carl Francois 11/21/2225 Milton Jin DO 11/21/22 0523 * Teresa Bryant RN - 11/20/2022 8:10 PM CDT Pt arrives with c/o abdominal pain for 1 week with accompanying N/V/D. Pt reports that today she had a syncopal episode prior to arrival. documented in this encounter Miscellaneous Notes * ED Re-evaluation Note - Dereck Nichols DO - 11/21/2022 6:30 AM CDT Pt was signed out to me by Dr. Jin at shift change. Emily Guerrier is a 27 y.o. female w/ PMHxincluding PCOS, hypotension, amenorrhea, GERD, and DM presenting to the ED w/ c/o RUQ abdominal pain onset one week ago. Pt describes pain as sharp and stabbing. Pt endorses associated nausea, vomiting, diarrhea, and dizziness. Pt denies headache. Pt reports she experienced a syncopal episode priorto ED arrival secondary to lightheadedness. Pt reports she received an US a few months ago, and theresults came back normal. Pending HIDA scan--- HIDA scan done but the once ordered overnight was not the one to calculate GBEF--- the study came back negative but did not have GBEF which was needed to tell function of GB (wrong HIDA ordered). Pt continued to have pain and nausea the whole time that was controlled with medications. The soonest they can redo the test is 48hrs till the old contrast is metabolized. I ordered the test for Saturday ---- Radiology working on scheduling and insurance authorization. -- Pt dc with oxycodone and zofran - come back in 2 days to get HIDA scan done outpatient. 1. Abdominal pain Labs Reviewed CBC WITH AUTO DIFFERENTIAL - Abnormal Result Value WBC 11.4 (*) Hgb 13.9 Hct 42.5 Plt 416 (*) MPV 8.3 (*) RBC 4.93 MCV 86.2 MCH 28.2 MCHC 32.7 RDW CV 12.3 RDW SD 38.6 NRBC abs 0.00 DIFFERENTIAL AUTO - Abnormal Neutrophil abs 7.6 (*) Imm gran abs 0.0 Lymphocyte abs 2.7 Monocyte abs 0.8 Eosinophil abs 0.3 Basophil abs 0.1 Neutrophil pct 66.1 Imm gran pct 0.4 Lymphocyte pct 23.5 Monocyte pct 6.9 Eosinophil pct 2.2 Basophil pct 0.9 POCT HCG, URINE - Normal HCG, ur, POC Negative Lot Number [id number] QC Backgroud Clear Acceptable QC Control Line Acceptable URINALYSIS AND REFLEX TO MICROSCOPIC AND CULTURE Color, ur Yellow Clarity, ur Clear Specific gravity, ur 1.013 pH, urine 5.0 Protein, ur ql Negative Glucose, ur ql Negative Ketones, ur Negative Bilirubin, ur Negative Blood, ur Negative Urobilinogen, ur <2.0 Nitrite, ur Negative Leukocyte esterase, ur Negative UA reflex comment Value: Reflex conditions for microscopic UA and culture not met. Narrative: Urine pH is affected by diet, medications, systemic acid-base disturbances, and renal tubular function. pH may affect urinary stone formation. For example, urine pH below 6.0 may help reduce the tendency for calcium phosphate stones and pH greater than 6.0 may reduce the tendency for uric acid stone formation. Source: Arley zkipster.Last revised 06-06-2017 N. GONORRHOEAE/C. TRACHOMATIS AMPLIFICATION C. trachomatis Not Detected N. gonorrhoeae Not Detected TRICHOMONAS VAGINALIS PCR COMPREHENSIVE METABOLIC PANEL Sodium 140 Potassium, pl 4.2 Chloride 105 CO2 23 Anion gap 12 BUN 7 Creatinine 0.70 Glucose 138 Calcium 9.4 Bilirubin, total 0.3 Protein, pl 7.6 Albumin 4.3 Alk phos 83 ALT 18 AST 20 LIPASE Lipase 26 TROPONIN T HIGH-SENSITIVITY SERIES (BASELINE, 2HR, 4HR, 6HR) Trop T hs <6 TROPONIN T HIGH-SENSITIVITY 2-HOUR Trop T hs <6 Trop T hs delta 0 Trop T hs interp Insignificant EGFR eGFR 123 CT Abdomen Pelvis W Contrast EXAM DESCRIPTION: CT ABDOMEN PELVIS W CONTRAST REASON FOR STUDY: Nausea/vomiting, Abdominal pain, acute, nonlocalized Pt arrives with c/o RUQ abdominal pain for 1 week with accompanying N/V/D. Pt reports that today she had a syncopal episode prior to arrival. TECHNIQUE: CT scan of the abdomen and pelvis performed with intravenous and without oral contrast using helical scanning technique with dynamic intravenous contrast injection. Reconstructed coronal and sagittal MPR images reviewed. All images stored on PACS. Automated exposure control was used as a dose optimization technique for this examination. CONTRAST TYPE/DOSE: 100mL of IOVERSOL 350 MG IODINE/ML INTRAVENOUS SYRINGE injected via intravenous COMPARISON: None available scratch is CT dated July 07, 2022 REFERENCE: Per ACR white paper recommendations, unless otherwise specified no follow-up imaging is recommended for incidental renal and adrenal lesions per consensus recommendations based on imaging criteria. Further lab evaluation could be pursued based on clinical findings. FINDINGS: LOWER CHEST: No significant pulmonary abnormalities. No effusion. LIVER: Normal size. No identified cystic or solid masses. GALLBLADDER: No stones identified. No wall thickening or inflammatory changes. BILE DUCTS: No intrahepatic or extrahepatic ductal dilatation. SPLEEN: Normal size. No focal lesions. PANCREAS: No identified cystic or solid masses. No significant calcifications. No adjacent inflammation or peripancreatic fluid collections. Pancreatic duct not dilated. ADRENALS: Normal. KIDNEYS/URINARY TRACT: No identified significant cystic or solid masses. No visualized stones. No hydronephrosis or hydroureter. Symmetric enhancement. Urinary bladder is unremarkable. GI: No dilated bowel loops. No obvious wall thickening. Normal appendix. No significant diverticular disease. PERITONEUM: No ascites or free air. RETROPERITONEUM: No mass or adenopathy. REPRODUCTIVE: No significant abnormality. VASCULATURE: No abdominal aortic aneurysm. MUSCULOSKELETAL: No significant abnormality. OTHER: No other abnormality. IMPRESSION: No acute finding. THIS IS AN ELECTRONICALLY VERIFIED FINAL REPORT 11/20/2022 9:32 PM - Electronically signed by Homero Albert M.D. JA: YAMEL Report ID: [id number] Reading Location: [id number] 1. Abdominal pain This note was prepared by Tracy Calzada, acting as a Scribe for Dereck Nichols DO. I electronically signed this note at 6:30 AM on 11/21/2022. I, Dereck Nichols DO, personally performed the services described in this documentation, reviewedand edited the documentation which was dictated to the scribe in my presence, and it accurately records my words and actions. Tracy Calzada 11/21/22 0632 Dereck Nichols DO 11/22/22 0619 * ED Procedure Note - Milton Jin DO - 11/21/2022 12:18 AM CDT Associated Order(s): ECG 12 lead Procedure ECG 12 lead Date/Time: 11/21/2022 12:18 AM Performed by: Milton Jin DO Authorized by: Milton Jin DO Rate: ECG rate: 80 ECG rate assessment: normal Rhythm: Rhythm: sinus rhythm Ectopy: Ectopy: none QRS: QRS axis: Normal QRS intervals: Normal Conduction: Conduction: normal ST segments: ST segments: Normal T waves: T waves: normal Milton Jin DO 11/21/22 0018 documented in this encounter Plan of Treatment Not on file documented as of this encounter Procedures Procedure Name Priority Date/Time Associated Diagnosis Comments NM HEPATOBILIARY IMAGING ED 11/21/2022 1:11 PM CDT US RUQ ED 11/21/2022 7:30 AM CDT N. GONORRHOEAE/C. TRACHOMATIS AMPLIFICATION STAT 11/20/2022 10:06 PM CDT TRICHOMONAS VAGINALIS PCR STAT 11/20/2022 10:06 PM CDT TROPONIN T HIGH-SENSITIVITY 2-HOUR Timed 11/20/2022 10:[address] ABDOMEN PELVIS W CONTRAST ED 11/20/2022 9:21 PM CDT POCT HCG, URINE Routine 11/20/2022 8:29 PM CDT URINALYSIS AND REFLEX TO MICROSCOPIC AND CULTURE STAT 11/20/2022 8:25 PM CDT TROPONIN T HIGH-SENSITIVITY SERIES (BASELINE, 2HR, 4HR, 6HR) STAT 11/20/2022 8:17 PM CDT EGFR STAT 11/20/2022 8:17 PM CDT DIFFERENTIAL AUTO STAT 11/20/2022 8:1 7 PM CDT CBC WITH AUTO DIFFERENTIAL STAT 11/20/2022 8:17 PM CDT LIPASE STAT 11/20/2022 8:17 PM CDT COMPREHENSIVE METABOLIC PANEL STAT 11/20/2022 8:17 PM CDT ECG 12-LEAD STAT 11/20/2022 8:16 PM CDT documented in this encounter Results [...] Electronically signed by ??Zaheer Berry M.D. CH: ARAM D: ??11/23/2022 2:48 PM T: ??11/23/2022 2:48 PM Report ID: [id number] Reading Location: ??[id number] Procedure Note Zaheer Berry Jr., MD - [...] Electronically signed by Zaheer Berry M.D. CH: ARAM Report ID: [id number] Reading Location: [id number] Dereck Nichols DO [facility] [place] PROCEDURES Final Result * NM Hepatobiliary Imaging (11/21/2022 1:11 PM CDT) Anatomical Region Laterality Modality Body N/A Nuclear Medicine 11/21/2022 1:28 PM CDT Narrative 11/21/2022 1:29 PM CDT EXAM DESCRIPTION: ?? NM HEPATOBILIARY IMAGING REASON FOR STUDY: Right upper quadrant abdominal pain with nausea vomiting and diarrhea for 1 week. RADIOPHARMACEUTICAL: 5.0 ??mCi Tc-99m mebrofenin via a ??left antecubital ??IV site TECHNIQUE: Following the intravenous administration of the radiopharmaceutical, sequential abdominal images were obtained. COMPARISON: CT abdomen and pelvis 11/20/2022. FINDINGS: There is prompt, homogenous tracer localization throughout the liver. There is normal visualization of the intrahepatic ducts, common bile duct, and gallbladder. There is normal biliary to bowel transit. IMPRESSION: No scintigraphic evidence of cystic duct obstruction. THIS IS AN ELECTRONICALLY VERIFIED FINAL REPORT 11/21/2022 1:29 PM - Electronically signed by ??Zaheer Berry M.D. CH: ARAM D: ??11/21/2022 1:29 PM T: ??11/21/2022 1:29 PM Report ID: [id number] Reading Location: ??[id number] Procedure Note Zaheer Berry Jr., MD - 11/21/2022 EXAM DESCRIPTION: NM HEPATOBILIARY IMAGING REASON FOR STUDY: Right upper quadrant abdominal pain with nausea vomitingand diarrhea for 1 week. RADIOPHARMACEUTICAL: 5.0 mCi Tc-99m mebrofenin via a left antecubitalIV site TECHNIQUE: Following the intravenous administration of the radiopharmaceutical, sequential abdominal images were obtained. COMPARISON: CT abdomen and pelvis 11/20/2022. FINDINGS: There is prompt, homogenous tracer localization throughout the liver. There is normal visualization of the intrahepatic ducts, commonbile duct, and gallbladder. There is normal biliary to bowel transit. IMPRESSION: No scintigraphic evidence of cystic duct obstruction. THIS IS AN ELECTRONICALLY VERIFIED FINAL REPORT 11/21/2022 1:29 PM - Electronically signed by Zaheer Berry M.D. CH: CH Report ID: [id number] Reading Location: [id number] us Milton Jin DO IMG NM PROCEDURES Magda l Result * US RUQ (11/21/2022 7:30 AM CDT) Anatomical Region Laterality Modality Abdomen N/A Ultrasound 11/21/2022 7:33 AM CDT Narrative 11/21/2022 7:38 AM CDT EXAM DESCRIPTION: ?? US RUQ REASON FOR STUDY: ?? Right upper quadrant abdominal pain, nausea, vomiting and diarrhea for 1 week, worse with eating. TECHNIQUE: Ultrasound of the right upper quadrant of the abdomen was performed with grayscale and color doppler. COMPARISON: ?? CT dated 11/20/2022 and ultrasound dated 09/14/2022 FINDINGS: PANCREAS: ?? Visualized aspects of the pancreas are within normal limits. ??The head/uncinate and tail are obscured by bowel gas on this study. LIVER: ?? There is mild increased echogenicity of the liver, as can be seen with steatosis. ??The liver is within normal limits in size. ??Hepatopetal flow is demonstrated within the main portal vein. ??No appreciable mass. GALLBLADDER: ?? The gallbladder is similarly distended compared to the previous examination. ??Gallbladder wall thickness is within normal limits. There is no shadowing calculus. ??Minimal sludge is suspected in the gallbladder. ??Negative sonographic Myrick sign. BILIARY: ?? There is no intrahepatic or extrahepatic biliary ductal dilatation. Common bile duct measures ??3.7 mm ??in diameter. RIGHT KIDNEY: ?? Normal size. Normal echogenicity. No solid mass or cyst. ??No hydronephrosis. ??Measures ??10.5 ??cm in length. OTHER: ?? No other significant findings. IMPRESSION: ?? 1. ?? No cholelithiasis and no definitive sonographic evidence of cholecystitis. ??If biliary dyskinesia is of concern, HIDA scan can be utilized for further evaluation. 2. ?? Mild increased echogenicity of the liver, as can be seen with steatosis. ?? No appreciable mass. 3. ?? Suboptimal visualization of the pancreas THIS IS AN ELECTRONICALLY VERIFIED FINAL REPORT 11/21/2022 7:38 AM - Electronically signed by ??Fannie Mcdermott M.D. TW: MEGHNA D: ??11/21/2022 7:38 AM T: ??11/21/2022 7:38 AM Report ID: [id number] Reading Location: ??[id number] Procedure Note Fannie Mcdermott MD - 11/21/2022 EXAM DESCRIPTION: US RUQ REASON FOR STUDY: Right upper quadrant abdominal pain, nausea, vomitingand diarrhea for 1 week, worse with eating. TECHNIQUE: Ultrasound of the right upper quadrant of the abdomen wasperformed with grayscale and color doppler. COMPARISON: CT dated 11/20/2022 and ultrasound dated 09/14/2022 FINDINGS: PANCREAS: Visualized aspects of the pancreas are within normal limits. The head/uncinate and tail are obscured by bowel gas on thisstudy. LIVER: There is mild increased echogenicity of the liver, as can be seen with steatosis. The liver is within normal limits in size. Hepatopetalflow is demonstrated within the main portal vein. No appreciable mass. GALLBLADDER: The gallbladder is similarly distended compared to theprevious examination. Gallbladder wall thickness is within normal limits. There isno shadowing calculus. Minimal sludge is suspected in the gallbladder.Negative sonographic Myrick sign. BILIARY: There is no intrahepatic or extrahepatic biliary ductaldilatation. Common bile duct measures 3.7 mm in diameter. RIGHT KIDNEY: Normal size. Normal echogenicity. No solid mass or cyst.No hydronephrosis. Measures 10.5 cm in length. OTHER: No other significant findings. IMPRESSION: 1. No cholelithiasis and no definitive sonographic evidence of cholecystitis. If biliary dyskinesia is of concern, HIDA scan can beutilized for further evaluation. 2. Mild increased echogenicity of the liver, as can be seen withsteatosis. No appreciable mass. 3. Suboptimal visualization of the pancreas THIS IS AN ELECTRONICALLY VERIFIED FINAL REPORT 11/21/2022 7:38 AM - Electronically signed by Fannie Mcdermott M.D. TW: TW Report ID: [id number] Reading Location: [id number] us Dereck Cheleik DO IMG US PROCEDURES Final Result * Trichomonas vaginalis PCR Urine (11/20/2022 10:06 PM CDT) Trichomonas DNA Not Detected Not Detected FRAN HAYS Comment: Interpretive Data Testing performed by [facility] using Nucleic Acid Amplification with the [employer] Xpert TV Assay. ??This assay detects DNA from Trichomonas vaginalis using Real-Time PCR. ??This test is cleared by the [facility] Food and Drug Administration for endocervical swabs, vaginal swabs, female urine (first-catch), and male urine (first-catch). ??The performance characteristics for these specimen types have been verified by the [facility]. ??Excess blood in specimens may be inhibitory and result in false negative results. ??The performance of this test has not been evaluated in women or individuals less than 18 years of age. Current Interpretive Data was last revised on 2019. Testing performed by: [facility], [address] [place]., [address] Urine 11/20/2022 10:0 6 PM CDT 11/21/2022 6:38 AM CDT us Lakisha LEYVA LAB MICROBIOLOGY - GENERAL ORDER DAVIN Final Result FRAN HAYS [address] [facility] [place] [address] * N. gonorrhoeae/C. trachomatis Amplification Urine (11/20/2022 10:06 PM CDT) Pathologist [facility] C. trachomatis Not Detected Not Detected FRAN HAYS Comment:Testing performed by : [address] [address] N. gonorrhoeae Not Detected Not Detected FRAN HAYS Comment: Interpretive Data Testing performed by the [facility]. This assay detects Chlamydia trachomatis and Neisseria gonorrhoeae by nucleic acid amplification testing (NAAT). This test is approved by the [facility] Food and Drug Administration and the performance characteristics have been verified by the laboratory. The performance characteristics of this test have not been evaluated in individuals less than 14 years of age. Current Interpretive Data was last revised on 2019. Testing performed by: [address] [address] Urine (None) 11/20/2022 10:0 6 PM CDT 11/20/2022 10:10 PM CDT Lakisha LEYVA LAB MICROBIOLOGY - GENERAL ORDER DAVIN Final Result Performing Organization Address City/[facility]/ZIP Co de Phone Number FRAN [address] [facility] [place] [address] * Troponin T high-sensitivity 2-hour (11/20/2022 10:03 PM CDT) Trop T hs <6 <=14 ng/L FRAN HAYS Comment: Interpretive Data For further hscTnT resources including the diagnostic algorithm and an aid in interpretation, copy and paste this link: https://nrl.testcatalog.org/show/hsTrop Current Interpretive Data last revised 2020. Testing performed by: [address] [address] Trop T hs delta 0 ng/L FRAN Comment:Testing performed by : [address] [address] Trop T hs interp Insignificant FRAN Comment:Testing performed by : [address] [address] Blood 11/20/2022 10:0 3 PM CDT 11/20/2022 10:10 PM CDT Milton Jin DO LAB BLOOD ORDERABLES F inal Result Performing Organization Address City/[facility]/ZIP Co de Phone Number FRAN [address] [facility] [place] [address] * CT Abdomen Pelvis W Contrast (11/20/2022 9:21 PM CDT) Anatomical Region Laterality Modality Body N/A Computed Tomogra phy 11/20/2022 9:29 PM CDT Narrative 11/20/2022 9:32 PM CDT EXAM DESCRIPTION: ?? CT ABDOMEN PELVIS W CONTRAST REASON FOR STUDY: ?? Nausea/vomiting, Abdominal pain, acute, nonlocalized ?? Pt arrives with c/o RUQ abdominal pain for 1 week with accompanying N/V/D. Pt reports that today she had a syncopal episode prior to arrival. ? TECHNIQUE: CT scan of the abdomen [...] ?? injected via ?? intravenous COMPARISON: ?? None available scratch is CT dated July 07, 2022 REFERENCE: Per ACR white paper recommendations, unless [...] THIS IS AN ELECTRONICALLY VERIFIED FINAL REPORT 11/20/2022 9:32 PM - Electronically signed by ??Homero MONTESINOS: JA D: ??11/20/2022 9:32 PM T: ??11/20/2022 9:32 PM Report ID: [id number] Reading Location: ??[id number] Procedure Note Homero Albert MD - 11/20/2022 EXAM DESCRIPTION: CT ABDOMEN PELVIS W CONTRAST REASON FOR STUDY: Nausea/vomiting, Abdominal pain, acute, nonlocalized Pt arrives with c/o RUQ abdominal pain for 1 week with accompanying N/V/D.Pt reports that today she had a syncopal episode prior to arrival. TECHNIQUE: CT scan of the abdomen and pelvis performed with intravenousand without oral contrast using helical scanning technique with dynamic intravenous contrast injection. Reconstructed coronal and sagittal MPRimages reviewed. All images stored on PACS. Automated exposure control was usedas a dose optimization technique for this examination. CONTRAST TYPE/DOSE: 100mL of IOVERSOL 350 MG IODINE/ML INTRAVENOUSSYRINGE injected via intravenous COMPARISON: None available scratch is CT dated July 07, 2022 REFERENCE: Per ACR white paper recommendations, unless [...] THIS IS AN ELECTRONICALLY VERIFIED FINAL REPORT 11/20/2022 9:32 PM - Electronically signed by Homero Albert M.D. JA: YAMEL Report ID: [id number] Reading Location: [id number] Lakisha LEYVA IMG CT PROCEDURES Final Result * POCT hCG, urine (11/20/2022 8:29 PM CDT) HCG, ur, POC Negative Lot Number [id number] QC Backgroud Clear Acceptable QC Control Line Acceptable Urine 11/20/2022 8:29 PM CDT Milton Jin DO POINT OF CARE TEST ORD ERABLES Final Result * Urinalysis reflex to microscopic and culture Urine (11/20/2022 8:25 PM CDT) Color, ur Yellow Yellow FRAN Comment:Testing performed by : [address] [address] Clarity, ur Clear Clear FRAN Comment:Testing performed by : [address] [address] Specific gravity, ur 1.013 1.003 - 1.030 FRAN Comment:Testing performed by : [address] [address] pH, urine 5.0 FRAN Comment:Testing performed by : [address] [address] Protein, ur ql Negative Negative FRAN Comment:Testing performed by : [address] [address] Glucose, ur ql Negative Negative FRAN Comment:Testing performed by : [address] [address] Ketones, ur Negative Negative FRAN Comment:Testing performed by : [address] [address] Bilirubin, ur Negative Negative FRAN Comment:Testing performed by : [address] [address] Blood, ur Negative Negative FRAN Comment:Testing performed by : [facility], [address] [place] [address]., [address] Urobilinogen, ur <2.0 <2.0 mg/dL FRAN Comment:Testing performed by : [address] [address] Nitrite, ur Negative Negative FRAN Comment:Testing performed by : [address] [address] Leukocyte esterase, ur Negative Negative FRAN Comment:Testing performed by : [address], [place]., [address] UA reflex comment Reflex conditions for microscopic UA and culture not met. FRAN Comment:Testing performed by : [address], [place]., [address] Urine 11/20/2022 8:25 PM CDT 11/20/2022 8:28 PM CDT Narrative FRAN - 11/20/2022 8:40 PM CDT ?? Urine pH is affected by diet, medications, systemic acid-base disturbances, and renal tubular function. ??pH may affect urinary stone formation. ??For example, urine pH below 6.0 may help reduce the tendency for calcium phosphate stones and pH greater than 6.0 may reduce the tendency for uric acid stone formation. Source: [facility] [place]. Last revised 06-06-2017 Milton Jin DO LAB MICROBIOLOGY - GEN ERAL ORDERABLES Final Result FRAN [address] [facility] [place] [address] * eGFR (11/20/2022 8:17 PM CDT) Pathologist [facility] eGFR 123 mL/min/1. 73 m2 FRAN Comment: Interpretive Data Reference Interval Normal ?>/= [...] was last reviewed 2021. Testing performed by: [address] [address] Blood 11/20/2022 8:17 PM CDT 11/20/2022 8:22 PM CDT us Milton Jin DO LAB BLOOD ORDERABLES F inal Result FRAN [address] [facility] [place] [address] * (ABNORMAL) Differential, auto (11/20/2022 8:17 PM CDT) Neutrophil abs 7.6(H) 1.7 - 6.5 K/cumm FRAN Comment:Testing performed by : [address] [address] Imm gran abs 0.0 0.0 - 0.1 K/cumm FRAN HAYS Comment:Testing performed by : [address] [address] Lymphocyte abs 2.7 0.8 - 3.3 K/cumm FRAN Comment:Testing performed by : [address] [address] Monocyte abs 0.8 0.2 - 0.8 K/cumm [facility] [place] Comment:Testing performed by : [address] [address] Eosinophil abs 0.3 0.0 - 0.5 K/cumm [facility] [place] Comment:Testing performed by : [address] [address] Basophil abs 0.1 0.0 - 0.1 K/cumm [facility] Comment:Testing performed by : [address] [address] Neutrophil pct 66.1 % [facility] Comment: Interpretive Data Percent cell count reference ranges are not reported, since discordance with absolute values may lead to misinterpretation of CBC data. Current Interpretive Data was last revised on 2017. Testing performed by: [address] [address] Imm gran pct 0.4 % [facility] Comment: Interpretive Data Percent cell count reference ranges are not reported, since discordance with absolute values may lead to misinterpretation of CBC data. Current Interpretive Data was last revised on 2017. Testing performed by: [address] [address] Lymphocyte pct 23.5 % [facility] Comment: Interpretive Data Percent cell count reference ranges are not reported, since discordance with absolute values may lead to misinterpretation of CBC data. Current Interpretive Data was last revised on 2017. Testing performed by: [address] [address] Monocyte pct 6.9 % [facility] Comment: Interpretive Data Percent cell count reference ranges are not reported, since discordance with absolute values may lead to misinterpretation of CBC data. Current Interpretive Data was last revised on 2017. Testing performed by: [address] [address] Eosinophil pct 2.2 % [facility] [place] Comment: Interpretive Data Percent cell count reference ranges are not reported, since discordance with absolute values may lead to misinterpretation of CBC data. Current Interpretive Data was last revised on 2017. Testing performed by: [address] [address] Basophil pct 0.9 % FRAN HAYS Comment: Interpretive Data Percent cell count reference ranges are not reported, since discordance with absolute values may lead to misinterpretation of CBC data. Current Interpretive Data was last revised on 2017. Testing performed by: [address] [address] Blood 11/20/2022 8:17 PM CDT 11/20/2022 8:22 PM CDT [facility] BLOOD ORDERABLES F inal Result Performing Organization Address [facility] Co de Phone Number FRAN [address] [place] [address] * Troponin T high-sensitivity series (baseline, 2hr, 4hr, 6hr) (11/20/2022 8:17 PM CDT) Trop T hs <6 <=14 ng/L FRAN HAYS Comment: Interpretive Data For further hscTnT resources including the diagnostic algorithm and an aid in interpretation, copy and paste this link: https://nrl.testcatalog.org/show/hsTrop Current Interpretive Data last revised 2020. Testing performed by: [address] [address] Blood 11/20/2022 8:17 PM CDT 11/20/2022 8:22 PM CDT [facility] BLOOD ORDERABLES E dited Result - Final Performing Organization Address [facility] Co de Phone Number JENNIFER[address] [place] [address] * Lipase (11/20/2022 8:17 PM CDT) Lipase 26 10 - 99 Units/L FRAN Comment:Testing performed by : [address] [address] Blood (Blood, Venous) 11/20/2022 8:17 PM CDT 11/20/2022 8:22 PM CDT Milton Jin DO LAB BLOOD ORDERABLES F inal Result [facility] [address] [facility] [place] [address] * Comprehensive metabolic panel (11/20/2022 8:17 PM CDT) Sodium 140 135 - 145 mmol/L FRAN Comment:Testing performed by : [address] [address] Potassium, pl 4.2 3.3 - 4.9 mmol/L FRAN Comment:Testing performed by : [address] [address] Chloride 105 97 - 110 mmol/L FRAN Comment:Testing performed by : [address] [address] CO2 23 22 - 32 mmol/L FRAN Comment:Testing performed by : [address] [address] Anion gap 12 2 - 15 mmol/L FRAN Comment:Testing performed by : [address] [address] BUN 7 6 - 25 mg/dL FRAN Comment:Testing performed by : [address] [address] Creatinine 0.70 0.60 - 1.10 mg/dL FRAN Comment:Testing performed by : [address] [address] Glucose 138 70 - 199 mg/dL FRAN Comment: Interpretive [...] was last revised 2022. Testing performed by: [address] [address] Calcium 9.4 8.5 - 10.3 mg/dL FRAN Comment:Testing performed by : [address] [address] Bilirubin, total 0.3 0.1 - 1.2 mg/dL FRAN Comment:Testing performed by : [address] [address] Protein, pl 7.6 6.5 - 8.5 g/dL FRAN Comment:Testing performed by : [address] [address] Albumin 4.3 3.5 - 5.0 g/dL FRAN Comment:Testing performed by : [address] [address] Alk phos 83 40 - 130 Units/L FRAN Comment:Testing performed by : [address] [address] ALT 18 7 - 45 Units/L FRAN Comment:Testing performed by : [address] [address] AST 20 10 - 45 Units/L [facility] Comment:Testing performed by : [address] [address] Blood 11/20/2022 8:17 PM CDT 11/20/2022 8:22 PM CDT us Milton Jin DO LAB BLOOD ORDERABLES F inal Result FRAN [address] [facility] [place] [address] * (ABNORMAL) CBC with auto differential (11/20/2022 8:17 PM CDT) Pathologist [facility] WBC 11.4(H) 3.8 - 9.9 K/cumm FRAN Comment:Testing performed by : [address], [address] Hgb 13.9 11.9 - 15.5 g/dL FRAN Comment:Testing performed by : [address] [address] Hct 42.5 35.6 - 45.5 % FRAN Comment:Testing performed by : [address] [address] Plt 416(H) 150 - 400 K/cumm FRAN Comment:Testing performed by : [address], [address] MPV 8.3(L) 9.1 - 12.3 fL FRAN Comment:Testing performed by : [address], [address] RBC 4.93 3.90 - 5.20 M/cumm FRAN Comment:Testing performed by : [address], [address] MCV 86.2 81.3 - 96.4 fL FRAN Comment:Testing performed by : [address], [address] MCH 28.2 27.1 - 33.3 pg FRAN Comment:Testing performed by : [address], [address] MCHC 32.7 32.3 - 35.7 g/dL FRAN Comment:Testing performed by : [address], [address] RDW CV 12.3 11.1 - 14.9 % FRAN Comment:Testing performed by : [address], [address] RDW SD 38.6 35.7 - 48.1 fL FRAN Comment:Testing performed by : [address], [address] NRBC abs 0.00 0.00 - 0.01 K/cumm FRAN Comment:Testing performed by : [address], [address] Blood (Blood, Venous) 11/20/2022 8:17 PM CDT 11/20/2022 8:22 PM CDT Milton Aragonhaniel Jin LAB BLOOD ORDERABLES F inal Result Performing Organization Address [facility] Co de Phone Number FRAN [facility] [facility] [place] [address] * ECG 12 lead (11/20/2022 8:16 PM CDT) Pathologist [facility] Ventricular Rate EKG/Min 80 BPM [facility] Atrial Rate 80 BPM [facility] IL-Interval (MSEC) 138 ms [facility] QRS-Interval (MSEC) 86 ms [facility] QT-Interval (MSEC) 376 ms [facility] QTc 433 ms [facility] P Perry 32 degrees [facility] R Perry -12 degrees [facility] T Perry 24 degrees [facility] Diagnosis Normal sinus rhythm 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 When compared with ECG of 06-AUG-2022 13:51, Inferior infarct is now Present [facility] 11/20/2022 8:16 PM CDT 11/21/2022 9:55 AM CDT Milton Lee Jin ECG ORDERABLES Final Result Performing Organization Address [facility] Phone Number [facility] documented in this encounter Visit Diagnoses Diagnosis Abdominal pain- Primary Abdominal pain, unspecified site documented in this encounter Administered Medications Inactive Administered Medications - up to 3 most recent administrations Medication Order JUL Action Action Date Dose Rate Site acetaminophen (TYLENOL) tablet 975 mg 975 mg (rounded from 1,000 mg), oral, Once, On Sat11/21/22 at 1423, For 1 dose Given 11/21/2022 2:41 PM CDT 975 mg diazePAM (VALIUM) injection 5 mg 5 mg, intravenous, Administer over 1 Minutes, Once, On Sat11/21/22 at 0351, For 1 dose Given 11/21/2022 3:55 AM CDT 5 mg diphenhydrAMINE (BENADRYL) 50 mg/mL injection 25 mg 25 mg, intravenous, Administer over 2 Minutes, Once, On Sat11/21/22 at 0132, For 1 dose Given 11/21/2022 1:37 AM CDT 25 mg HYDROmorphone (DILAUDID) injection 0.5 mg 0.5 mg, intravenous, Administer over 2 Minutes, Once, On Sat11/21/22 at 0545, For 1 dose Given 11/21/2022 5:51 AM CDT 0.5 mg HYDROmorphone (DILAUDID) injection 1 mg 1 mg, intravenous, Administer over 2 Minutes, Once, On Sat11/21/22 at 0024, For 1 dose Given 11/21/2022 12:29 AM CDT 1 mg HYDROmorphone (DILAUDID) injection 1 mg 1 mg, intravenous, Administer over 2 Minutes, Once, On Sat11/21/22 at 0132, For 1 dose Given 11/21/2022 1:38 AM CDT 1 mg HYDROmorphone (DILAUDID) injection 1 mg 1 mg, intravenous, Administer over 2 Minutes, Once, On Sat11/21/22 at 0342, For 1 dose Given 11/21/2022 3:45 AM CDT 1 mg ioversoL (OPTIRAY 350) syringe 100 mL 100 mL, intravenous, Once in imaging, contrast, Starting on Sat11/20/22 at 2118, For 1 dose Contrast Given 11/20/2022 9:19 PM CDT 100 mL Left Antecubital metoclopramide (REGLAN) 5 mg/mL injection 10 mg 10 mg, intravenous, Administer over 1 Minutes, Once, On Sat11/21/22 at 0132, For 1 dose Given 11/21/2022 1:38 AM CDT 10 mg ondansetron (ZOFRAN) injection 4 mg 4 mg, intravenous, Administer over 2 Minutes, Once, On Sat11/20/22 at 2204, For 1 dose Given 11/20/2022 10:09 PM CDT 4 mg ondansetron (ZOFRAN) injection 4 mg 4 mg, intravenous, Administer over 2 Minutes, Once, On Sat11/21/22 at 0024, For 1 dose Given 11/21/2022 12:29 AM CDT 4 mg ondansetron (ZOFRAN) injection 4 mg 4 mg, intravenous, Administer over 2 Minutes, Once, On Sat11/21/22 at 0545, For 1 dose Given 11/21/2022 5:51 AM CDT 4 mg ondansetron (ZOFRAN) injection 4 mg 4 mg, intravenous, Administer over 2 Minutes, Once, On Sat11/21/22 at 1423, For 1 dose, Indications: Nausea, VomitingIndication s:Nausea,Vomiting Given 11/21/2022 2:41 PM CDT 4 mg prochlorperazine (COMPAZINE) injection 5 mg 5 mg, intravenous, Administer over 2 Minutes, Once, On Sat11/21/22 at 0806, For 1 dose Given 11/21/2022 8:41 AM CDT 5 mg propranoloL (INDERAL) tablet 60 mg 60 mg, oral, Once, On Sat11/21/22 at 0806, For 1 dose Given 11/21/2022 8:41 AM CDT 60 mg sodium chloride 0.9% bolus 1,000 mL 1,000 mL, intravenous, at 1,000 mL/hr, Administer over 1 Hours, Once, On Sat11/21/22 at 0024, For 1 dose New Bag 11/21/2022 12:28 AM CDT 1,000 mL 1000 mL/hr sodium chloride 0.9% bolus 1,000 mL 1,000 mL, intravenous, at 1,000 mL/hr, Administer over 1 Hours, Once, On Sat11/21/22 at 0132, For 1 dose New Bag 11/21/2022 1:37 AM CDT 1,000 mL 1000 mL/hr tc-99m mebrofenin (choletec) injection 5 millicurie 5 millicurie, intravenous, Once in imaging, radiopharmaceutica l, Starting on Sat11/21/22 at 1300, For 1 dose, Indications: Diagnostic RadiographyIndicat ions:Diagnostic Radiography Given 11/21/2022 1:00 PM CDT 5 millicuries documented in this encounter Active and Recently Administered Medications Times are shown in CDT. Scheduled Medication Order 11/19/2022 11/20/2022 11/21/2022 acetaminophen (TYLENOL) tablet 975 mg (COMPLETED) 975 mg (rounded from 1,000 mg), oral, Once, On Sat11/21/22 at 1423, For 1 dose 1441 (Given - Provid er: Janie Mendez RN) diazePAM (VALIUM) injection 5 mg (COMPLETED) 5 mg, intravenous, Administer over 1 Minutes, Once, On Sat11/21/22 at 0351, For 1 dose 0355 (Given - Provid er: Naveen Norris RN) diphenhydrAMINE (BENADRYL) 50 mg/mL injection 25 mg (COMPLETED) 25 mg, intravenous, Administer over 2 Minutes, Once, On Sat11/21/22 at 0132, For 1 dose 0137 (Given - Provid er: Naveen Norris RN) HYDROmorphone (DILAUDID) injection 0.5 mg (COMPLETED) 0.5 mg, intravenous, Administer over 2 Minutes, Once, On Sat11/21/22 at 0545, For 1 dose 0551 (Given - Provid er: Naveen Norris RN) HYDROmorphone (DILAUDID) injection 1 mg (COMPLETED) 1 mg, intravenous, Administer over 2 Minutes, Once, On Sat11/21/22 at 0024, For 1 dose 0029 (Given - Provid er: Naveen Norris RN) HYDROmorphone (DILAUDID) injection 1 mg (COMPLETED) 1 mg, intravenous, Administer over 2 Minutes, Once, On Sat11/21/22 at 0132, For 1 dose 0138 (Given - Provid er: Naveen Norris RN) HYDROmorphone (DILAUDID) injection 1 mg (COMPLETED) 1 mg, intravenous, Administer over 2 Minutes, Once, On Sat11/21/22 at 0342, For 1 dose 0345 (Given - Provid er: Naveen Norris RN) metoclopramide (REGLAN) 5 mg/mL injection 10 mg (COMPLETED) 10 mg, intravenous, Administer over 1 Minutes, Once, On Sat11/21/22 at 0132, For 1 dose 013 (Given - Provid er: Naveen Norris RN) ondansetron (ZOFRAN) injection 4 mg (COMPLETED) 4 mg, intravenous, Administer over 2 Minutes, Once, On Sat11/20/22 at 2204, For 1 dose 2208 (Given - Provider: Shanel Cruz RN) ondansetron (ZOFRAN) injection 4 mg (COMPLETED) 4 mg, intravenous, Administer over 2 Minutes, Once, On Sat11/21/22 at 0024, For 1 dose 0029 (Given - Provid er: Naveen Norris RN) ondansetron (ZOFRAN) injection 4 mg (COMPLETED) 4 mg, intravenous, Administer over 2 Minutes, Once, On Sat11/21/22 at 0545, For 1 dose 0551 (Given - Provid er: Naveen Norris RN) ondansetron (ZOFRAN) injection 4 mg (COMPLETED) 4 mg, intravenous, Administer over 2 Minutes, Once, On Sat11/21/22 at 1423, For 1 dose, Indications: Nausea, Vomiting 1441 (Given - Provid er: Janie Mendez RN) prochlorperazine (COMPAZINE) injection 5 mg (COMPLETED) 5 mg, intravenous, Administer over 2 Minutes, Once, On Sat11/21/22 at 0806, For 1 dose 0841 (Given - Provid er: Adilene Ruiz RN) propranoloL (INDERAL) tablet 60 mg (COMPLETED) 60 mg, oral, Once, On Sat11/21/22 at 0806, For 1 dose 0841 (Given - Provid er: Adilene Ruiz RN) sodium chloride 0.9% bolus 1,000 mL (COMPLETED) 1,000 mL, intravenous, at 1,000 mL/hr, Administer over 1 Hours, Once, On Sat11/21/22 at 0024, For 1 dose 0028 (New Bag - Provider: Naveen Norris RN)0118 (Stopped - Provider: Naveen Norris RN) sodium chloride 0.9% bolus 1,000 mL (COMPLETED) 1,000 mL, intravenous, at 1,000 mL/hr, Administer over 1 Hours, Once, On Sat11/21/22 at 0132, For 1 dose 0137 (New Bag - Provider: Naveen Norris RN)[id number] (Stopped - Provider: Naveen Norris RN) PRN Medication Order 11/19/2022 11/20/2022 11/21/2022 ioversoL (OPTIRAY 350) syringe 100 mL (COMPLETED) 100 mL, intravenous, Once in imaging, contrast, Starting on Sat11/20/22 at 2118, For 1 dose 2118 (Contrast Given - Provider: Milton Castillo, RT) [id number] mebrofenin (choletec) injection 5 millicurie (COMPLETED) 5 millicurie, intravenous, Once in imaging, radiopharmaceutical, Starting on Sat11/21/22 at 1300, For 1 dose, Indications: Diagnostic Radiography 1300 (Given - Provid er: Elizabeth Ross, RT) documented in this encounter Orders Imaging Orders Without Results Count Last Order ed Date First Ordered Date NM HEPATOBILIARY IMAGING W P HARMACEUTICAL INTERVENTION 1 11/21/2022 Nursing Count Last Ordered Date First Orde red Date MISCELLANEOUS NURSING CARE ORDER (SPECIFY) 1 11/20/2022 IV Count Last Ordered Date First Orde red Date SALINE LOCK IV 1 11/20/2022 documented in this encounter Care Teams Gas Technician Relationship Specialty Start Date End Date Lorie Vanessa [address] VENDOR [address] [place] [id number] PCP - General Family Practice 05/29/22 No, Physician 06/08/21 documented as of this encounter
--- OUTSIDE RECORDS SUMMARY | 2024-06-06 00:33 | XMS_ITS | Encounter Summary ---
Author Organization [facility] Address [address] [place] [address] Phone Care Team Providers Care Newsperson Name Role Phone No, Physician Unavailable Lorie Vanessa NP Primary Care Provider [phone] Reason for Visit * Reason Comments Follow-up Encounter Details Date Type Department Care Team (Late st Contact Info) Description 12/03/2022 10:40 AM CDT Office Visit [facility] Allergy and Immunology [address] [place] [address] Jackson Dodd MD PhD [address] [facility] [address] [place] [address] Allergic conjunctivitis, bilateral (Primary Dx); Allergic rhinitis due to animal hair and dander; Recurrent sinusitis; Upper abdominal pain; Chronic cough; Vaginitis due to [place] Social History Tobacco Use Types Packs/Day Years Used Date Smoking Tobacco: Never Smokeless Tobacco: Never PHQ-2 Answer Date Recorded PHQ-2 Total Score (If total score is 3 or more points, staff should administer the PHQ-9) 0 04/12/2022 Comments No Sex and Gender Information Value Date Recorded Sex Assigned at Not on file Legal Sex 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 Gender Identity Female 06/06/2022 7:40 AM 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 Sexual Orientation Not on file documented as of this encounter Last Filed Vital Signs Vital Sign Reading Time Taken Comments Blood Pressure 127/87 12/03/2022 10:41 AM CDT Pulse 87 12/03/2022 10:41 AM CDT Temperature 36.8 ??C (98.2 ??F) 12/03/2022 1 0:41 AM CDT Respiratory Rate - - Oxygen Saturation 100% 12/03/2022 10: 41 AM CDT Inhaled Oxygen Concentration - - Weight 137.6 kg (303 lb 6.4 oz) 023 10:41 AM CDT Height - - Body Mass Index 52.08 09/04/2022 8:54 AM CDT documented in this encounter Ordered Prescriptions Prescription Sig Dispense Quantity Refills Last Filled Start Date End Date cromolyn (GASTROCROM) 100 mg/5 mL solutionIndication s:systemic mastocytosis Take 10 mL (200 mg total) by mouth 4 (four) times a day before meals and nightly 1200 mL 11 12/03/2022 4 fluconazole (DIFLUCAN) 150 mg tabletIndications: Chronic Suppression,Urinar y Tract/Genitourinar y Infection Take 1 tab every other day for 3 doses if yeast infection starts, then weekly after to prevent recurrence 15 tablet 12/03/2022 3 amoxicillin (AMOXIL) 500 mg tablet/capsuleIndi cations:Prophylaxi s, Medical Take 1 tablet/capsule (500 mg total) by mouth 2 (two) times a day 60 tablet/capsul e 2 12/03/2022 3 amoxicillin-clavul anate (AUGMENTIN) 875-125 mg per tabletIndications: Upper Respiratory/HEENT Infection Take 1 tablet by mouth 2 (two) times a day for 14 days Take complete course even if symptoms improve earlier. 28 tablet 12/03/2022 3 documented in this encounter Progress Notes * Fanta Pepper NP - 12/03/2022 10:40 AM CDT History of Present Illness: Emilyyenny Guerrier is a 27 y.o. year old female with recurrent sinusitis, frequent infections, seasonal allergic rhinitis, chronic cough, and abdominal pain who is seen for a follow up visit. She was last seen in our clinic 09/04/22. In the interim, she has not been doing well. The patient reports no improvement since her last visit. At that time she was prescribed antibiotics and steroids. Upon completion, she immediately felt all symptoms return. She reports sinus congestion and pressure, chronic cough, intermittent fevers and body achiness. She is tearful in the officetoday and reports feeling very poorly for a very long time. She is understandably frustrated because she is not feeling better and testing comes back mostly normal. 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 She continues to experience cough and shortness of breath. She was unable to pay for her Symbicort inhaler as it was not covered by insurance. She continues to use her rescue albuterol inhaler frequently. She continues to have allergic rhinitis symptoms that are not well controlled with medications. She uses Nasacort which does cause her some refractory headaches. However, the headaches are not as severe as they were when she used Flonase. She takes 40 mg of Zyrtec daily. She is interested in starting immunotherapy as discussed at previous visit. She is seen her PCP tomorrow for this. She also has chronic upper abdominal pain. Recent testing, including HIDA scan, which came back negative. She is following up with her GI and having an upper and lower scope next month. She reports significant gastric reflux symptoms as well as a feeling of a lump her throat when swallowing. She also reports significant dizziness and nausea/vomiting which has sent her to the emergency room for dehydration treatment. She takes Zofran several times a day. She is not able to identify any foods specifically trigger her gastrointestinal symptoms. She recently had a fall and skinned her knee and lower leg significantly. Review of Systems: Positive for fevers and chills, extreme fatigue, change in vision, sensitivity to light, runny nose, sore throat, rash, cough, shortness of breath, exercise intolerance, edema, palpitations, heat intolerance, difficulty swallowing, abdominal pain, nausea and vomiting, constipation, diarrhea, pain with urination, muscle and joint pain or swelling, headaches, weakness and numbness, depression, anxiety, and right lower leg wound. Medications: Current Outpatient Medications Medication Sig clonazePAM (KlonoPIN) 0.5 mg tablet Take 1 tablet (0.5 mg total) by mouth daily as needed famotidine (PEPCID) 40 mg tablet Take 1 tablet (40 mg total) by mouth nightly as needed for heartburn lamoTRIgine (LaMICtal) 100 mg tablet Take 1.5 tablets (150 mg total) by mouth daily 1/2 in AM and 1in PM levalbuterol (XOPENEX HFA) 45 mcg/actuation inhaler Inhale 1-2 puffs every 6 (six) hours as needed for wheezing magnesium oxide (MAG-OX) 400 mg (241.3 mg elemental magnesium) tablet TAKE 1 TABLET(400 MG) BY MOUTH DAILY norethindrone (MICRONOR) 0.35 mg tablet Take 1 tablet (0.35 mg total) by mouth daily ondansetron ODT (ZOFRAN-ODT) 8 mg disintegrating tablet DISSOLVE 1 TABLET(8 MG) ON THE TONGUE EVERY8 HOURS NEEDED FOR NAUSEA OR VOMITING oxyCODONE (ROXICODONE) 5 mg immediate release tablet Take 1 tablet (5 mg total) by mouth every 4 (four) hours as needed for pain pantoprazole DR (PROTONIX) 40 mg EC tablet TAKE 1 TABLET(40 MG) BY MOUTH TWICE DAILY propranolol LA (INDERAL LA) 60 mg 24 hr capsule Take 1 capsule (60 mg total) by mouth daily sertraline (ZOLOFT) 100 mg tablet Take 2 tablets (200 mg total) by mouth nightly triamcinolone (NASACORT) 55 mcg nasal inhaler Administer 2 sprays into each nostril daily Can increase to twice daily if symptoms persist Allergies: Allergies Allergen Reactions Adhesive Itching and Rash Fluoxetine Mental status changes Nitrofurantoin Itching Physical Exam: Vitals BP 127/87 Pulse 87 Temp 36.8 ??C (98.2 ??F) Wt (!) 137.6 kg (303 lb 6.4 oz) SpO2 100% BMI 52.08 kg/m?? Alert and oriented to person, place, and time. Left eye: no abnormality noted. Right eye: no abnormality noted. Left ear: TM pearly bell and with minimal effusion. Right ear: TM pearly bell and with minimal effusion. Nasal exam: no ulceration of septum noted. enlarged inferior turbinates. Bilateral turbinates swollen, boggy, mucosa is pale. Posterior pharynx crowded with cobblestones and bilateral tonsils enlarged, no oral ulcers, and no swelling/angioedema noted. Neck supple. Lung exam clear bilaterally, without wheezing, rhonchi or rales. Cardiac exam reveals normal rate, regular rhythm, and no murmurs. Abdomen non-distended. Extremities: warm and well-perfused no joint swelling or deformity on exam of the hands no cyanosisor clubbing. Skin: Right lower leg epidermal excoriation and wound, grossly 8x5 inch long, patchy. Erythematous,sanguinous discharge, scabbing, no pus or excessive swelling. No focal neurologic defects noted. Results: Testing from previous visits were reviewed in [facility]. Notably: CBC with Auto Differential 11/20/22 All values within normal limits except: WBC 11.4 Plt 416 MPV 8.3 Neutrophil abs 7.6 Labs 11/20/22 IgE, IgG, IgA, IgM, Immunoglobulin IgG Subclasses, Strep Pneumoniae antibody serotypes, Haemophilusinfluenza B Ab IgG, tetanus antibody IgG, Lymphocyte subpopulations 7, alpha gal, tryptase all within normal limits Skin Testing 09/04/22 Skin testing was positive to [place], oak, B[place] grass, brome grass, Jorge L grass, [place] bluegrass, [place] grass, cockleburr, lambs quarter, anderson aria, mohawk plantain, alternaria, aspergillus, cladosporium, curvularia, epicoccum, fusarium, penicillium, might DP, might DF, cat, dog, mike kroach, mouse Assessment and Plan: Emily Guerrier is a 27 y.o. year old female with recurrent sinusitis, frequent infections, seasonal allergic rhinitis, chronic cough, and abdominal pain. Recurrent sinusitis and infections: We discussed the immunological lab results with the patient which were largely negative. Because she did report improvement of symptoms while on antibiotics and return if symptoms immediately upon completion of antibiotics course, we discussed starting prophylactic antibiotics. The patient reports that with any antibiotics she developed a vaginal yeast infection. She would like to be prescribed Diflucan concurrently which has been successful for her in the past. We will need to look into how to best prescribe prophylactic antibiotics and Diflucan therapy concurrently. We have prescribed her a course of antibiotics and Diflucan for now and will address long-term therapy after researching the best methods for prophylactic administration. We have referred the patient to ENT for further evaluation. Chronic cough likely related to undiagnosed asthma: We discussed the suspicion for asthma given symptoms and history. We would like the patient to complete pulmonary function testing. We will hold off on prescribing a new inhaler until after pulmonary function test is completed for optimal test results. Chronic abdominal pain: We discussed her gastrointestinal symptoms and feeling of difficulty swallowing. We discussed possible causes such as eosinophilic esophagitis and a similar pathology that occurs in the bowel causing irritable bowel symptoms. She will start taking Gastrocrom 4 times daily before eating. She will follow-up with her GI physician next month with a upper/lower scope. We also discussed potential elimination diet for gluten and dairy. The patient has tested negative for celiac before, however we discussed potential food intolerance. She will attempt elimination diet after scope if she continues to have symptoms. Seasonal allergic rhinitis: The patient would like to start immunotherapy. Given that her symptoms are so severe, her allergy testing is very significant, and she is largely uncontrolled with traditional allergy medications, we will begin immunotherapy. The patient was informed about the risks and benefits of immunotherapy and a consent form was signed. An in office handout was given to the patient with additional information. She will need optimal asthma control prior to starting injections. Leg wound: The patient's right leg does have a significant area of excoriation with redness, scabbing and sanguinous drainage. The patient is able to bear weight and is able to perform her activitiesof daily living without limit from this injury. She is seeing her primary care physician tomorrow for further evaluation. She is using a topical antibacterial [id number] medication. Follow Up: Follow up in 4-6 weeks Orders Placed This Encounter Ambulatory referral to ENT Recurrent sinusitis Standing Status: Future Standing Expiration Date: 12/04/2023 Referral Priority: Routine Referral Type: Consultation Referral Reason: Specialty Services Required Referral Location: [facility] (All Locations) Requested Specialty: Otolaryngology Number of Visits Requested: 1 Pulmonary Function Test -[facility]; Spirometry with Bronchodilator, Lung Volumes; Pleth with Airway Resistance Standing Status: Future Standing Expiration Date: 12/04/2023 Order Specific Question: PFT performed at: Answer: [facility] Order Specific Question: Procedure: Answer: Spirometry with Bronchodilator Order Specific Question: Procedure: Answer: Lung Volumes Order Specific Question: Lung Volumes via: Answer: Pleth with Airway Resistance Fanta Pepper NP Cosigned by Jackson Dodd MD PhD at 12/03/2022 5:00 PM CDT documented in this encounter Plan of Treatment Not on file documented as of this encounter Visit Diagnoses Diagnosis Allergic conjunctivitis, bilateral- Primary Other chronic allergic conjunctivitis Allergic rhinitis due to animal hair and dander Allergic rhinitis due to animal (cat) (dog) hair and dander Recurrent sinusitis Unspecified sinusitis (chronic) Upper abdominal pain Chronic cough Cough Vaginitis due to [place] documented in this encounter Discontinued Medications Medication Sig Discontinue Reason Start Date End Da te traZODone (DESYREL) 150 mg tablet Take 1 tablet (150 mg total) by mouth nightly at bedtime 06/25/2022 12/03/2022 budesonide-formoteroL (Symbicort) 80-4.5 mcg/actuation inhalerIndications:Main tenance Therapy for Asthma Inhale 2 puffs 2 (two) times a day Rinse mouth with water after use to prevent thrush. Do not swallow. 09/04/2022 12/03/2022 ondansetron (ZOFRAN) 4 mg tablet Take 1 tablet (4 mg total) by mouth every 4 (four) hours as needed for nausea or vomiting 11/21/2022 12/03/2022 promethazine (PHENERGAN) 25 mg tablet Take 1 tablet (25 mg total) by mouth every 6 (six) hours as needed for nausea or vomiting Therapy completed 07/07/2022 12/03/2022 documented as of this encounter Care Teams Newsperson Relationship Specialty Start Date End Date Lorie Vanessa NP [address] [place] [id number] PCP - General Family Practice 05/29/22 No, Physician 06/08/21 documented as of this encounter
--- OUTSIDE RECORDS SUMMARY | 2024-06-06 00:33 | XMS_ITS | Encounter Summary ---
Author Organization [facility] Address [address] [facility] [address] [place] [address] Care Team Providers Care Psychology Instructor Name Role Phone No, Physician Unavailable Lorie Vanessa NP Primary Care Provider [phone] Reason for Visit * Reason Comments Annual Exam Encounter Details Date Type Department Care Team (Late st Contact Info) Description 12/11/2022 2:30 PM CDT Office Visit [facility] Primary Care at [address] [place] [address] Lorie Vanessa NP [address] [place] [phone] Annual physical exam (Primary Dx); Nausea; Morbid obesity with BMI of 50.0-59.9, adult (HCC); Vitamin D deficiency; Lipid screening; Acute pain of right knee; Amenorrhea; Chronic left-sided low back pain without sciatica; Constipation, unspecified constipation type; Diarrhea, unspecified type; Dizziness; GALEANO (dyspnea on exertion); Frequent infections; Hemorrhoids, unspecified hemorrhoid type; Gastroesophageal reflux disease without esophagitis; Orthostatic hypotension; Right upper quadrant pain; PCOS (polycystic ovarian syndrome); Tachycardia, unspecified Social History Tobacco Use Types Packs/Day Years Used Date Smoking Tobacco: Never Smokeless Tobacco: Never Tobacco Cessation:Counseling Given: Not Answered PHQ-2 Answer Date Recorded PHQ-2 Total Score (If total score is 3 or more points, staff should administer the PHQ-9) 1 12/11/2022 Comments No Sex and Gender Information Value Date Recorded Sex Assigned at Not on file Legal Sex Female 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 Gender Identity Female 06/06/2022 7:40 AM UNDERGROUND HEAVY EQUIPMENT OPERATOR Sexual Orientation Not on file documented as of this encounter Last Filed Vital Signs Vital Sign Reading Time Taken Comments Blood Pressure 112/70 12/11/2022 2:28 PM CDT Pulse 80 12/11/2022 2:28 PM CDT Temperature 36.7 ??C (98 ??F) 12/11/2022 2:28 PM CDT Respiratory Rate 14 12/11/2022 2:28 PM CDT Oxygen Saturation 99% 12/11/2022 2:28 PM CDT Inhaled Oxygen Concentration - - Weight 138.1 kg (304 lb 6.4 oz) 12/11/2022 2:28 PM CDT Height 162.6 cm (5' 4.02 ) 12/11/2022 2:28 PM CD T Body Mass Index 52.22 12/11/2022 2:28 PM CDT documented in this encounter Patient Instructions * Patient Instructions* Lorie Vanessa NP - 12/11/2022 2:30 PM CDT You had your annual physical exam today. Fasting lab work has been ordered, be sure to fast for 12 hours prior to getting lab work done, nothing to eat or drink but water, black coffee, or plain hot or iced tea. Recommend checking with insurance company before getting lab work done to verify preferred lab and coverage for lab work. Refills for Zofran will be sent to your pharmacy per your request. Monitor daily caloric intake and portion sizes and exercise most days of the week, for a goal of at least 150 minutes of exercise per week. Eat a diet high in fiber, 20-30 g/day. Recommend return in1 year for annual physical exam, sooner if needed. documented in this encounter Ordered Prescriptions Prescription Sig Dispense Quantity Refills Last Filled Start Date End Date ondansetron ODT (ZOFRAN-ODT) 8 mg disintegrating tabletIndications:Na usea Take 1 tablet (8 mg total) by mouth every 8 (eight) hours as needed for nausea or vomiting 30 tablet 1 12/11/2022 3 documented in this encounter Progress Notes * Lorie Vanessa NP - 12/11/2022 2:30 PM CDT Images from the original note were not included. Assessment/Plan: Assessment/Plan Diagnoses and all orders for this visit: Annual physical exam (Primary) Assessment & Plan: Reviewed past and current medical history, surgical history, social history, family history, current medications, and allergies. The chart was updated to identify any changes in these areas. A ROS and PE were performed. Medication and labs were ordered. Discussed well woman exam/cervical cancer screening and monthly breast self-exams. Patient will follow-up annually for a physical exam, sooner ifneeded. Nausea Assessment & Plan: Chronic, stable-continued on Zofran as directed as needed, refills sent to pharmacy per patient request. Encouraged to keep scheduled appointment for EGD and to follow-up with bookkeeping manager, , as recommended. Orders: - ondansetron ODT (ZOFRAN-ODT) 8 mg disintegrating tablet; Take 1 tablet (8 mg total) by mouth every 8 (eight) hours as needed for nausea or vomiting Morbid obesity with BMI of 50.0-59.9, adult (HCC) Assessment & Plan: Chronic, worsened-encouraged to monitor daily caloric intake and portion sizes and to exercise mostdays of the week, for goal of at least 150 minutes of exercise per week. Ordered TSH level. Orders: - TSH reflex to free T4; Future Vitamin D deficiency Assessment & Plan: Chronic, stable, controlled with supplement-continued on vitamin-D 1000 IU daily with a meal. Orders: - Vitamin D 25 hydroxy; Future Lipid screening - Lipid panel; Future Acute pain of right knee Assessment & Plan: Acute, status post fall with abrasion, healing/improving-advised to monitor for resolution of pain and signs and symptoms of infection. Continue topical Bactroban as directed as needed. Amenorrhea Assessment & Plan: Chronic-encouraged to keep appointment with business process consultant, Dr. Lin, on 01/11/2023. Chronic left-sided low back pain without sciatica Assessment & Plan: Chronic, stable-encouraged to use OTC medication as directed as needed. Advised if worsening symptoms, can pursue imaging to further evaluate. Constipation, unspecified constipation type Assessment & Plan: Chronic, stable-encouraged diet high in fiber, 20-30 g per day. Advised to keep scheduled appointment for EGD/colonoscopy with bookkeeping manager, Dr. Thomas. Diarrhea, unspecified type Assessment & Plan: Chronic, stable-encouraged diet high in fiber, 20-30 g per day. Advised to keep scheduled appointment for EGD/colonoscopy with bookkeeping manager, Dr. Thomas. Dizziness Assessment & Plan: Chronic, improved-will monitor for worsening symptoms, can pursue further testing if needed. Reviewed recent lab work. Encouraged to follow-up with estimator paperboard boxes as recommended. GALEANO (dyspnea on exertion) Assessment & Plan: Chronic, stable-will monitor for worsening symptoms and can pursue additional testing/refer to pulmonology if/when needed. Frequent infections Assessment & Plan: Chronic, stable-continued on Augmentin, cetirizine, and Flonase per underwriting clerk, considering SCIT. Encouraged to follow-up with pharmacist hospital as recommended. Hemorrhoids, unspecified hemorrhoid type Assessment & Plan: Chronic, currently asymptomatic-encouraged to keep scheduled appointment for colonoscopy and to follow-up with bookkeeping manager, Dr. Thomas, as recommended. Gastroesophageal reflux disease without esophagitis Assessment & Plan: Chronic, stable, controlled with medication-continued on pantoprazole and famotidine. Orthostatic hypotension Assessment & Plan: Chronic, stable-encouraged adequate hydration and to rise slowly from sitting to standing position. Right upper quadrant pain Assessment & Plan: Chronic, stable-continued on cromolyn, pantoprazole, and famotidine. Encouraged to keep appointmentfor EGD/colonoscopy and to follow-up with bookkeeping manager, Dr. Thomas, as recommended. PCOS (polycystic ovarian syndrome) Assessment & Plan: Chronic-encouraged to keep appointment with business process consultant, Dr. Lin, on 01/11/2023. Tachycardia, unspecified Assessment & Plan: Chronic, improved/controlled on medication-continued on propranolol per cardiology. Encouraged to follow-up with estimator paperboard boxes as recommended. BMI Follow-up includes: nutrition counseling and exercise counseling. Subjective: Emily Guerrier is a 27 y.o. female here for her annual PE, initially establish care 04/12/2022, last seen on 09/03/2022. HPI Chief Complaint Patient presents with Annual Exam Her chronic conditions/PMH includes PCOS (was seeing a business process consultant at [facility], will be establishing with Dr. Lin), tachycardia/palpitations (propranolol, magnesium) allergic rhinitis (cetirizine, Nasacort, seeing parcel wrapper, will be starting SCIT), recurrent infections (Augmentin, seeing underwriting clerk), vitamin-D deficiency (vitamin D3 1000 IU), bipolar/depression (Lamictal, sertraline), anxiety (sertraline, clonazepam), insomnia , nausea (Zofran), RUQ abdominal pain (cromolyn), and GERD (pantoprazole, famotidine). She has medication allergies to fluoxetine and nitrofurantoin. She hashad banding of her hemorrhoids, states still problematic at times. She has had the COVID series and her boosters are up-to-date, no record of last Tdap. 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 Her family history includes COPD (mother), hypertension (mother), squamous cell carcinoma (father), heart failure (brother), diabetes (maternal grandmother), and mental illness (maternal grandmother). Review of Systems Constitutional: Negative for chills, fatigue and fever. HENT: Negative for ear pain, rhinorrhea and sore throat. Eyes: Negative for visual disturbance. Respiratory: Positive for cough (chronic cough from drainage). Negative for chest tightness, shortness of breath and wheezing. Cardiovascular: Positive for palpitations (well-controlled with propranolol). Negative for chest pain and leg swelling. Gastrointestinal: Positive for abdominal pain (chronic upper, stable), constipation, diarrhea and nausea. GERD controlled with med Endocrine: Negative for cold intolerance and heat intolerance. Genitourinary: Negative for difficulty urinating, dysuria and hematuria. Musculoskeletal: Negative for arthralgias and joint swelling. Skin: Negative for rash. No change in moles. Allergic/Immunologic: Negative for food allergies. Neurological: Positive for dizziness. Negative for syncope, weakness, numbness and headaches. Hematological: Does not bruise/bleed easily. Psychiatric/Behavioral: Negative for dysphoric mood, self-injury, sleep disturbance and suicidal ideas. The patient is not nervous/anxious. PHQ-9=9, ALEJANDRA-7=7 Breast: Negative. Objective: Vital signs were reviewed. Vitals: 12/11/22 1428 BP: 112/70 BP Location: Left arm Patient Position: Sitting Pulse: 80 Resp: 14 Temp: 36.7 ??C (98 ??F) TempSrc: Temporal SpO2: 99% Weight: (!) 138.1 kg (304 lb 6.4 oz) Height: 162.6 cm (5' 4.02 ) [...] distress. Breath sounds: Normal breath sounds. No wheezing, rhonchi or rales. Abdominal: General: Abdomen is flat. Bowel sounds are normal. Palpations: Abdomen is soft. There is no mass. Tenderness: There is no abdominal tenderness. There is no guarding or rebound. Musculoskeletal: General: No swelling, tenderness, deformity or signs of injury. Normal range of motion. Cervical back: Normal range of motion and neck supple. Right lower leg: No edema. Left lower leg: No edema. Skin: General: Skin is warm and dry. Coloration: Skin is not jaundiced. Findings: No rash. Neurological: General: No focal deficit present. Mental Status: She is alert and oriented to person, place, and time. Cranial Nerves: No cranial nerve deficit. Sensory: No sensory deficit. Motor: No weakness. Coordination: Coordination normal. Gait: Gait normal. Deep Tendon Reflexes: Reflexes normal. Psychiatric: Mood and Affect: Mood normal. Behavior: Behavior normal. Thought Content: Thought content normal. Lorie Vanessa INFORMATION CODER BC documented in this encounter Miscellaneous Notes * Assessment & Plan Note - Lorie Vanessa NP - 12/12/2022 5:45 AM CDTAssociated Problem(s): Annual physical exam (Resolved 05/17/2023) Reviewed past and current medical history, surgical history, social history, family history, current medications, and allergies. The chart was updated to identify any changes in these areas. A ROS and PE were performed. Medication and labs were ordered. Discussed well woman exam/cervical cancer screening and monthly breast self-exams. Patient will follow-up annually for a physical exam, sooner ifneeded. * Assessment & Plan Note - Lorie Vanessa NP - 12/12/2022 5:44 AM CDTAssociated Problem(s): Vitamin D deficiency Chronic, stable, controlled with supplement-continued on vitamin-D 1000 IU daily with a meal. * Assessment & Plan Note - Lorie Vanessa NP - 12/12/2022 5:43 AM CDTAssociated Problem(s): Class 3 severe obesity due to excess calories without serious comorbidity with body mass index (BMI) of 50.0 to 59.9 in adult (HCC) Chronic, worsened-encouraged to monitor daily caloric intake and portion sizes and to exercise mostdays of the week, for goal of at least 150 minutes of exercise per week. Ordered TSH level. * Assessment & Plan Note - Lorie Vanessa NP - 12/12/2022 5:42 AM CDTAssociated Problem(s): Tachycardia, unspecified Chronic, improved/controlled on medication-continued on propranolol per cardiology. Encouraged to follow-up with estimator paperboard boxes as recommended. * Assessment & Plan Note - Lorie Vanessa NP - 12/12/2022 5:42 AM CDTAssociated Problem(s): Right upper quadrant pain Chronic, stable-continued on cromolyn, pantoprazole, and famotidine. Encouraged to keep appointmentfor EGD/colonoscopy and to follow-up with bookkeeping manager, Dr. Thomas, as recommended. * Assessment & Plan Note - Lorie Vanessa NP - 12/12/2022 5:41 AM CDTAssociated Problem(s): PCOS (polycystic ovarian syndrome) Chronic-encouraged to keep appointment with business process consultant, Dr. Lin, on 01/11/2023. * Assessment & Plan Note - Lorie Vanessa NP - 12/12/2022 5:41 AM CDTAssociated Problem(s): Orthostatic hypotension Chronic, stable-encouraged adequate hydration and to rise slowly from sitting to standing position. * Assessment & Plan Note - Lorie Vanessa NP - 12/12/2022 5:41 AM CDTAssociated Problem(s): Nausea Chronic, stable-continued on Zofran as directed as needed, refills sent to pharmacy per patient request. Encouraged to keep scheduled appointment for EGD and to follow-up with bookkeeping manager, , as recommended. * Assessment & Plan Note - Lorie Vanessa NP - 12/12/2022 5:40 AM CDTAssociated Problem(s): Morbid obesity with BMI of 45.0-49.9, adult (HCC) (Resolved 12/12/2022) * Assessment & Plan Note - Lorie Vanessa NP - 12/12/2022 5:40 AM CDTAssociated Problem(s): Hemorrhoids Chronic, currently asymptomatic-encouraged to keep scheduled appointment for colonoscopy and to follow-up with bookkeeping manager, Dr. Thomas, as recommended. * Assessment & Plan Note - Lorie Vanessa NP - 12/12/2022 5:40 AM CDTAssociated Problem(s): Gastroesophageal reflux disease without esophagitis Chronic, stable, controlled with medication-continued on pantoprazole and famotidine. * Assessment & Plan Note - Lorie Vanessa NP - 12/12/2022 5:39 AM CDTAssociated Problem(s): Frequent infections Chronic, stable-continued on Augmentin, cetirizine, and Flonase per underwriting clerk, considering SCIT. Encouraged to follow-up with pharmacist hospital as recommended. * Assessment & Plan Note - Lorie Vanessa NP - 12/12/2022 5:39 AM CDTAssociated Problem(s): GALEANO (dyspnea on exertion) Chronic, stable-will monitor for worsening symptoms and can pursue additional testing/refer to pulmonology if/when needed. * Assessment & Plan Note - Lorie Vanessa NP - 12/12/2022 5:38 AM CDTAssociated Problem(s): Dizziness Chronic, improved-will monitor for worsening symptoms, can pursue further testing if needed. Reviewed recent lab work. Encouraged to follow-up with estimator paperboard boxes as recommended. * Assessment & Plan Note - Lorie Vanessa NP - 12/12/2022 5:37 AM CDTAssociated Problem(s): Diarrhea Chronic, stable-encouraged diet high in fiber, 20-30 g per day. Advised to keep scheduled appointment for EGD/colonoscopy with bookkeeping manager, Dr. Thomas. * Assessment & Plan Note - Lorie Vanessa NP - 12/12/2022 5:37 AM CDTAssociated Problem(s): Constipation Chronic, stable-encouraged diet high in fiber, 20-30 g per day. Advised to keep scheduled appointment for EGD/colonoscopy with bookkeeping manager, Dr. Thomas. * Assessment & Plan Note - Lorie Vanessa NP - 12/12/2022 5:36 AM CDTAssociated Problem(s): Chronic left-sided low back pain without sciatica Chronic, stable-encouraged to use OTC medication as directed as needed. Advised if worsening symptoms, can pursue imaging to further evaluate. * Assessment & Plan Note - Lorie Vanessa NP - 12/12/2022 5:36 AM CDTAssociated Problem(s): Amenorrhea Chronic-encouraged to keep appointment with business process consultant, Dr. Lin, on 01/11/2023. * Assessment & Plan Note - Lorie Vanessa NP - 12/12/2022 5:34 AM CDTAssociated Problem(s): Acute pain of right knee Acute, status post fall with abrasion, healing/improving-advised to monitor for resolution of pain and signs and symptoms of infection. Continue topical Bactroban as directed as needed. documented in this encounter Plan of Treatment Not on file documented as of this encounter Results * Vitamin D 25 hydroxy (10/08/2023 11:42 AM CDT) Pathologist [facility] Vitamin D 25-OH 35.0 30.0 - 80.0 ng/mL Blood 10/08/2023 11:4 2 AM CDT 10/08/2023 2:43 PM CDT us Lorie Vanessa LABORATORY ANIMAL FACILITY SUPERVISOR LAB BLOOD ORDERABLES Final Resul t [facility] [address] [facility] Department [place] [address] * (ABNORMAL) Lipid panel (10/08/2023 [...] last revised on 2018. Testing performed by: [facility], [address] [place] [address]., [address] Triglycerides 196(H) <=149 mg/dL [facility] Comment: Interpretive Data Ages < or = [...] last revised on 2018. Testing performed by: [address] [address] HDL 33(L) >=40 mg/dL FRAN Comment: Interpretive [...] last revised on 2018. Testing performed by: [address] [address] LDL, calculated 107 <=129 mg/dL FRAN Comment: Interpretive Data Ages < [...] last revised on 2018. Testing performed by: [address] [address] Non-HDL Cholesterol 146 mg/dL FRAN Comment: Interpretive Data Ages < [...] last revised on 2018. Testing performed by: [address] [address] Chol/HDL ratio 5 FRAN Comment:Testing performed by : [address] [address] Blood 10/08/2023 11:4 2 AM CDT 10/08/2023 1:50 PM CDT us Lorie Vanessa NP LAB BLOOD ORDERABLES Final Resul t Performing Organization Address [facility] de Phone Number [facility] [address] [facility] Department [place] [address] * Thyroid Function [place] (10/08/2023 11:42 AM CDT) TSH 1.42 0.30 - 4.20 mcIUnit/mL Comment:Testing performed by : [address] [address] Blood 10/08/2023 11:4 2 AM CDT 10/08/2023 1:50 PM CDT Lorie Vanessa NP LAB BLOOD ORDERABLES Final Resul t Performing Organization Address [facility] Co de Phone Number [facility] [address] [facility] Department [place] [address] documented in this encounter Visit Diagnoses Diagnosis Annual physical exam- Primary Routine general medical examination at a health care facility Nausea Nausea alone Morbid obesity with BMI of 50.0-59.9, adult (HCC) Vitamin D deficiency Lipid screening Screening for lipoid disorders Acute pain of right knee Amenorrhea Absence of menstruation Chronic left-sided low back pain without sciatica Constipation, unspecified constipation type Diarrhea, unspecified type Dizziness Dizziness and giddiness GALEANO (dyspnea on exertion) Other dyspnea and respiratory abnormality Frequent infections Hemorrhoids, unspecified hemorrhoid type Gastroesophageal reflux disease without esophagitis Esophageal reflux Orthostatic hypotension Right upper quadrant pain Abdominal pain, right upper quadrant PCOS (polycystic ovarian syndrome) Polycystic ovaries Tachycardia, unspecified documented in this encounter Discontinued Medications Medication Sig Discontinue Reason Start Date End Da te triamcinolone (KENALOG) 0.025 % ointment APPLY TOPICALLY TO THE AFFECTED AREA TWICE DAILY Alternate therapy 12/02/2022 12/11/2022 oxyCODONE (ROXICODONE) 5 mg immediate release tabletIndications:Pain Take 1 tablet (5 mg total) by mouth every 4 (four) hours as needed for pain Other 11/21/2022 12/11/2022 ondansetron ODT (ZOFRAN-ODT) 8 mg disintegrating tabletIndications:Nausea DISSOLVE 1 TABLET(8 MG) ON THE TONGUE EVERY 8 HOURS NEEDED FOR NAUSEA OR VOMITING Reorder 11/05/2022 12/11/2022 documented as of this encounter Historical Medications * This list may reflect changes made after this encounter. cetirizine (ZyrTEC) 10 mg chewable tablet Take 4 tablets (40 mg total) by mouth daily Up to 40 daily PRN cholecalciferol 25 mcg (1,000 unit) tablet Take 1 tablet (1,000 Units total) by mouth daily mupirocin (BACTROBAN) 2 % ointment APPLY TOPICALLY TO THE AFFECTED AREA TWICE DAILY 12/02/2022 3 triamcinolone (KENALOG) 0.025 % ointment APPLY TOPICALLY TO THE AFFECTED AREA TWICE DAILY 12/02/2022 3 added in this encounter Care Teams Psychology Instructor Relationship Specialty Start Date End Date Clements, Lorie R., LABORATORY ANIMAL FACILITY SUPERVISOR [address] [place] [id number] PCP - General Family Practice 05/29/22 No, Physician 06/08/21 documented as of this encounter
--- OUTSIDE RECORDS SUMMARY | 2024-06-06 00:33 | XMS_ITS | Encounter Summary ---
Author Organization [facility] Healthcare Address [address] [place] [address] Care Team Providers Care Network Planner Name Role Phone No, Physician Unavailable Lorie Vanessa NP Primary Care Provider [phone] Encounter Details Date Type Department Care Team (Late st Contact Info) Description 11/15/2022 Patient Self-Triage [facility]/ Physicians [address] [place] [address] Mychart, Generic Provider [address] [place] [address] Social History Tobacco Use Types Packs/Day Years Used Date Smoking Tobacco: Never Smokeless Tobacco: Never PHQ-2 Answer Date Recorded PHQ-2 Total Score (If total score is 3 or more points, staff should administer the PHQ-9) 0 04/12/2022 Comments No Sex and Gender Information Value Date Recorded Sex Assigned at Not on file Legal Sex Female 6:55 PM MANAGER COMMERCIAL SALES Gender Identity Female 06/06/2022 7:40 AM MANAGER COMMERCIAL SALES Sexual Orientation Not on file documented as of this encounter Plan of Treatment Not on file documented as of this encounter Visit Diagnoses Not on filedocumented in this encounter Care Teams Network Planner Relationship Specialty Start Date End Date Lorie Vanessa NP [address] [place] [id number] PCP - General Family Practice 05/29/22 No, Physician 06/08/21 documented as of this encounter
--- OUTSIDE RECORDS SUMMARY | 2024-06-06 00:33 | XMS_ITS | Encounter Summary ---
Author Organization [facility] Healthcare Address [address] [place] [address] Care Team Providers Care Bond Clerk Name Role Phone No, Physician Unavailable Lorie Vanessa NP Primary Care Provider Reason for Visit * Diagnostic Imaging (Routine) - Closed Specialty Diagnoses / Procedures Referred By Cyn burnett Referred To Contact Procedures NM Hepatobiliary Imaging Dereck Rojo, DO [address] [place] [address] Phone: tel: fax: [address] [phone] Referral ID Status Reason Start Date Expiration Date Visits Re quested Visits Authorized [id number] Closed 11/21/2022 12/21/2023 2 1 Encounter Details Date Type Department Care Team (Latest Contact Info) Description 11/23/2022 11:46 AM CDT - 11/23/2022 11:59 PM CDT Hospital Encounter 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 Gender Identity Female 06/06/2022 7:40 AM LIGHTER CAPTAIN Sexual Orientation Not on file documented as [...] if symptoms persist 16.9 mL 11 09/04/2022 budesonide-formoter oL (Symbicort) 80-4.5 mcg/actuation inhalerIndications: [...] 06/25/2022 3 documented as of this encounter Discharge Disposition Disposition Code Departure Means Destination Discharge to home or self care documented in this encounter Plan of Treatment Not on file documented as of this encounter Procedures Procedure Name Priority Date/Time Associated Diagnosis Comments NM HEPATOBILIARY IMAGING W PHARMACEUTICAL INTERVENTION Schedule Routine, Read Routine (OP Routine) 11/23/2022 2:35 PM CDT documented in this encounter Visit Diagnoses Not on filedocumented in this encounter Administered Medications Inactive Administered Medications - up to 3 most recent administrations Medication Order MAR Action Action Date Dose Rate Site tc-99m mebrofenin (choletec) injection 5 millicurie 5 millicurie, intravenous, Once in imaging, radiopharmaceutical, Starting on Sat11/23/22 at 1200, For 1 dose, Indications: Diagnostic RadiographyIndications:Diagn ostic Radiography Given 11/23/2022 12:00 PM CDT 5 millicuries documented in this encounter Orders Medications Ordered That Baldomero ht Not Have Been Administered Count Last Ordered Date First Ordered Date tc-99m mebrofenin (choletec) injection 5 millicurie 1 11/23/2022 documented in this encounter Care Teams Bond Clerk Relationship Specialty Start Date End Date Lorie Vanessa NP [address] [place] [id number] PCP - General Family Practice 05/29/22 No, Physician 06/08/21 documented as of this encounter
--- OUTSIDE RECORDS SUMMARY | 2024-06-06 00:33 | XMS_ITS | Encounter Summary ---
Author Organization [facility] Address [address] [place] [address] Care Team Providers Care Rim Fire Priming Tool Setter Name Role Phone No, Physician Unavailable Lorie Vanessa NP Primary Care Provider [phone] Encounter Details Date Type Department Care Team (Late st Contact Info) Description 12/20/[address] 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 Pending pt response. documented in this encounter Plan of Treatment Not on file documented as of this encounter Visit Diagnoses Not on filedocumented in this encounter Care Teams Rim Fire Priming Tool Setter Relationship Specialty Start Date End Date Lorie Vanessa NP [address] [place] [phone] PCP - General Family Practice 05/29/22 No, Physician 06/08/21 documented as of this encounter
--- OUTSIDE RECORDS SUMMARY | 2024-06-06 00:34 | XMS_ITS | Encounter Summary ---
Author Organization 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 Name Role Phone No, Physician Unavailable Lorie Vanessa NP Primary Care Provider [phone] Reason for Visit * Reason Comments New Patient * Consultation (Routine) - Closed Specialty Diagnoses / Procedures Referred By Cyn t Referred To Contact Immunology / Allergy and Immunology Diagnoses Frequent infections Lorie Vanessa MANAGER [address] [address] Phone: tel: fax: [facility] [address] [facility] [address] [place] [address] Phone: tel: fax: Referral ID Status Reason Start Date Expiration Date V isits Requested Visits Authorized [id number] Closed Specialty Services Required 07/04/2022 08/03/2023 12 12 Encounter Details Date Type Department Care Team (Late st Contact Info) Description 09/04/2022 9:00 AM CDT Office Visit [facility] [address] [facility] [address] [place] [address] Jackson Dodd MD PhD [address] [facility] [address] [place] [address] Recurrent sinusitis (Primary Dx); Frequent infections; Allergic conjunctivitis, bilateral; Seasonal allergic rhinitis, unspecified trigger; Upper abdominal pain; Chronic cough Social History Tobacco Use Types Packs/Day Years Used Date Smoking Tobacco: Never Smokeless Tobacco: Never Tobacco Cessation:Counseling Given: No PHQ-2 Answer Date Recorded PHQ-2 Total Score (If total score is 3 or more points, staff should administer the PHQ-9) 0 04/12/2022 Comments No Sex and Gender Information Value Date Recorded Sex Assigned at Not on file Legal Sex Female 6:55 PM 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 STRINGER Gender Identity Female 06/06/2022 7:40 AM PEARL STRINGER Sexual Orientation Not on file documented as of this encounter Last Filed Vital Signs Vital Sign Reading Time Taken Comments Blood Pressure 116/74 09/04/2022 8:54 AM CDT Pulse 109 09/04/2022 8:54 AM CDT Temperature 36.9 ??C (98.4 ??F) 09/04/2022 8:54 AM CD T Respiratory Rate 20 09/04/2022 8:54 AM CDT Oxygen Saturation 97% 09/04/2022 8:54 AM CDT Inhaled Oxygen Concentration - - Weight 127.5 kg (281 lb) 09/04/2022 8:54 AM CDT Height 162.6 cm (5' 4 ) 09/04/2022 8:54 AM CDT Body Mass Index 48.23 09/04/2022 8:54 AM CDT documented in this encounter Ordered Prescriptions Prescription Sig Dispense Quantity Refills Last Filled Start Date End Date triamcinolone (NASACORT) 55 mcg nasal inhalerIndications :Allergic Rhinitis,Chronic Non-Allergic Rhinitis Administer 2 sprays into each nostril daily Can increase to twice daily if symptoms persist 16.9 mL 11 09/04/2022 levalbuterol (XOPENEX HFA) 45 mcg/actuation inhalerIndications :Chronic cough Inhale 1-2 puffs every 6 (six) hours as needed for wheezing 1 each 3 09/04/2022 3 budesonide-formote roL (Symbicort) 80-4.5 mcg/actuation inhalerIndications :Maintenance Therapy for Asthma Inhale 2 puffs 2 (two) times a day Rinse mouth with water after use to prevent thrush. Do not swallow. 1 each 11 09/04/2022 3 documented in this encounter Progress Notes * Vikki Odom RMA - 09/04/2022 10:55 AM CDT 09/04/22 1053 Test Information Method Intradermal Location Arm Panel 1: Trees Birch Mix (W/F in millimeters) neg Maple, Red ( W/F in millimeters) neg Panel 3: Grass & Weeds Isabel's Quarter (W/F in millimeters) 9w/15x12 Panel 4: Weeds & Molds Lao Plantain (W/F in millimeters) 8w/10x10 Ragweed Mix (W/F in millimeters) neg Aspergillus (W/F in millimeters) 7w/10x20f Panel 5: Molds Penicillium (W/F in millimeters) 9w/18x15f Panel 6: Mold, Pets & Insects Saline (W/F millimeters) neg * Vikki Odom RMA - 09/04/2022 10:53 AM CDT 09/04/22 1000 Test Information Last use of antihistamine (or other medication affecting response to to histamine)? 08/28/22 Allergen can line examiner Reese Method Epicutaneous Location Back Testing Nurse/RADHA Odom Reviewing Physician Dr Baker Panel 1: Trees Histamine (W/F millimeters) 9w/18x15f White Cole (W/F in millimeters) neg Birch Mix (W/F in millimeters) neg [place] Eastern (W/F in millimeters) 7w/9x9f Elm Mix (W/F in Millimeters) neg Ford (W/F in millimeters) neg Maple, Red ( W/F in millimeters) neg [place] (W/F in millimeters) neg Panel 2: Tree & Grass Saline (W/F millimeters) neg [place] Mix (W/F in millimeters) 7w/10x10f N[place]oma (W/F in millimeters) neg Cla[place]on (W/F in millimeters) neg Black Pateros (W/F in millimeters) neg Bermuda (W/F in millimeters) 10w/25x25f Brome Grass (W/F in millimeters) 10w/25x25f Jorge L (W/F in millimeters) 9w/25x25f Panel 3: Grass & Weeds Histamine (W/F millimeters) 9w/25x25f Kentucky Francisco (W/F in millimeters) 13w/25x25f Timi (W/F in millimeters) 11w/25x25f Cockelbur (W/F in millimeters) 9w/25x25f Firebush/Kochia (W/F in millimeters) neg Isabel's Quarter (W/F in millimeters) neg Marshelder, True (W/F in millimeters) 7w/10x10f Nettle (W/F in millimeters) neg Panel 4: Weeds & Molds Saline (W/F millimeters) neg Pigweed Spiny (W/F in millimeters) neg Lao Plantain (W/F in millimeters) neg Ragweed Mix (W/F in millimeters) neg Somali Thistle (W/F in millimeters) neg Sagebrush (W/F in millimeters) neg Alternaria Alternata (W/F in millimeters) 9w/15x15f Aspergillus (W/F in millimeters) neg Panel 5: Molds Histamine (W/F millimeters) 11w/25x20f Cladosporium (W/F in millimeters) 7w/18x18f Curvularia (W/F in millimeters) 7w/10x10f Epicoccum (W/F in millimeters) 7w/10x10f Fusarium (W/F in millimeters) 7w/15x10f Helminthosporium (W/F in millimeters) neg Bipolaris (W/F in millimeters) neg Penicillium (W/F in millimeters) neg Panel 6: Mold, Pets & Insects Saline (W/F millimeters) neg Rhizopus N. (W/F in millimeters) neg D. Pteronyssinus (W/F in millimeters) 9w/20x10f D. Farinae (W/F in millimeters) 11w/20x15f Cat Epithelium (W/F in millimeters) 7w/18x15f Dog AP* (W/F in millimeters) 7w/10x10f Cockroach Mix (W/F in millimeters) 7w/10x10f Mouse (W/F in Millimeters) neg * Jackson Dodd MD PhD - 09/04/2022 9:00 AM CDT Allergy/Immunology History and Physical Chief Complaint: Chief Complaint Patient presents with New Patient History of Present Illness: Emily Guerrier is a 27 y.o. female presenting to the Division of Allergy and Immunology at [facility] in consultation for environmental allergies/hay fever, cough, reactions to foods, sinus problems, and immunodeficiency. --- Her main reason for Establishing care today is because she is getting sick all the time. Her main issue is with constant upper respiratory infections. She has frequent sinus infections. She has at least four courses of antibiotics for sinus infections per year over the past several years. Often, these also progress to bronchitis. She has never had pneumonia and has never been hospitalized for anyof these infections. When she is treated with antibiotics, she often develops secondary yeast infections requiring treatment with fluconazole. She notes that after she got COVID in 2020, the frequency of all of her infections since then has increased. She notes one instance where she required antibiotics for a skin infection. She has not had abscesses or other issues with skin infections, but shedoes note that it takes a long time for wounds to heal. Recently, in March her primary care provider checked her pneumococcal titers. She subsequently got the pneumovax on June 06 2022. Titers have not been rechecked since then to assess response. She has significant environmental allergy symptoms. She notes itchy watery eyes runny nose nasal congestion and post nasal drainage year round, but with a peak in spring. She has never had allergy testing. She has not noticed a corresponding spike in sinus infections or bronchitis in the spring. For treatment, she uses cetirizine. She tried intranasal steroids, but the strong perfume smell from the Flonase gave her a migraine, so she stopped using intranasal steroids. She also does not toleratenasal saline washes, such as from a neti pot. She notes a chronic cough. This is worse when her post nasal drainage is severe. It also increases when she is sick with sinus infections and bronchitis. She's never been formally diagnosed with asthma or any other respiratory disease. She has never had pulmonary function testing. She has albuterol, but she does not like to use it because it causes palpitations. She does not have any food allergies, but she notes that she has a sensitivity to red dye 40. She tolerates other red dyes and other colors of dyes. She eats meat, but she notes that unless beef is very well done, it gives her an upset stomach. Beyond that, she has a long history of gastrointestinal symptoms. In the past, she noted that she had more chronic diarrhea, but this has since transitioned to where she now has more chronic Constipation. She also has chronic gastroesophageal reflux disease. This is despite being on intermediate therapy with a proton pump inhibitor. She has established recently with a mortgage loan originator and we'll begetting an EGD. --- Past Medical History: She has a past medical history of PCOS, POTS, GERD, anxiety and depression, IBS No past medical history on file. Past Surgical History: Procedure Laterality Date BAND HEMORRHOIDECTOMY Family History: She has a family history of seasonal allergies, asthma, and eczema. Negative for food allergies, immune problems, autoimmune diseases. Family History Problem Relation Age of Onset Hypertension Mother COPD Mother Squamous cell carcinoma Father Heart failure Brother Diabetes Maternal Grandmother Family history of diabetes mellitus - (Added by TW Conv) Mental illness Maternal Grandmother Family history of mental disorder - (Added by TW Conv) Environmental History:\ Her house has carpet. She has a pet cat. Her house has central air and heat. She does not use dust proof encasements. Her mattress is 5 months old. Current Outpatient Medications Medication Sig Dispense Refill clonazePAM (KlonoPIN) 0.5 mg tablet Take 1 tablet (0.5 mg total) by mouth daily as needed famotidine (PEPCID) 40 mg tablet Take 1 tablet (40 mg total) by mouth nightly as needed for heartburn 30 tablet 3 lamoTRIgine (LaMICtal) 100 mg tablet Take 1.5 tablets (150 mg total) by mouth daily 1/2 in AM and 1in PM magnesium oxide (MAG-OX) 400 mg (241.3 mg elemental magnesium) tablet Take 1 tablet (400 mg total) by mouth daily 90 tablet 0 norethindrone (MICRONOR) 0.35 mg tablet Take 1 tablet (0.35 mg total) by mouth daily ondansetron ODT (ZOFRAN-ODT) 8 mg disintegrating tablet DISSOLVE 1 TABLET(8 MG) ON THE TONGUE EVERY8 HOURS NEEDED FOR NAUSEA OR VOMITING 30 tablet 0 propranolol LA (INDERAL LA) 60 mg 24 hr capsule Take 1 capsule (60 mg total) by mouth daily 30 capsule 11 sertraline (ZOLOFT) 100 mg tablet Take 2 tablets (200 mg total) by mouth nightly traZODone (DESYREL) 150 mg tablet Take 1 tablet (150 mg total) by mouth nightly at bedtime budesonide-formoteroL (Symbicort) 80-4.5 mcg/actuation inhaler Inhale 2 puffs 2 (two) times a day Rinse mouth with water after use to prevent thrush. Do not swallow. 1 each 11 levalbuterol (XOPENEX HFA) 45 mcg/actuation inhaler Inhale 1-2 puffs every 6 (six) hours as needed for wheezing [address] (PROTONIX) 40 mg EC tablet Take 1 tablet (40 mg total) by mouth 2 (two) times a day(Patient not taking: Reported on 09/03/2022) 60 tablet 0 promethazine (PHENERGAN) 25 mg tablet Take 1 tablet (25 mg total) by mouth every 6 (six) hours as needed for nausea or vomiting (Patient not taking: Reported on 09/03/2022) 20 tablet 0 triamcinolone (NASACORT) 55 mcg nasal inhaler Administer 2 sprays into each nostril daily Can increase to twice daily if symptoms persist 16.9 mL 11 No current facility-administered medications for this visit. Allergies Allergen Reactions Adhesive Itching and Rash Fluoxetine Mental status changes Nitrofurantoin Itching Review of Systems: Positive for fevers and chills, extreme fatigue, change in vision, sensitivity to light, runny nose, sore throat, rash, cough, shortness of breath, exercise intolerance, edema, palpitations, heat intolerance, difficulty swallowing, abdominal pain, nausea and vomiting, Constipation, diarrhea, pain with urination, muscle and joint pain or swelling, headaches, weakness and numbness, depression and anxiety. Physical exam: Vitals BP 116/74 Pulse 109 Temp 36.9 ??C (98.4 ??F) (Oral) Resp 20 Ht 162.6 cm (5' 4 ) Wt 127.5 kg (281 lb) SpO2 97% BMI 48.23 kg/m?? Sitting comfortably on exam chair. Alert and oriented to person, place, and time. Left eye: no abnormality noted. Right eye: no abnormality noted. Left ear: TM pearly bell and with effusion. Right ear: TM pearly bell and with effusion. Nasal exam: no ulceration of septum noted. enlarged inferior turbinates. Left middle turbinate swollen, boggy, mucosa is pink,. Right middle turbinate swollen, boggy, mucosa is pink, mucosa is pale,. Posterior pharynx crowded, has many cobblestones, tonsils enlarged, no oral ulcers, and no swelling/angioedema noted. Neck supple. Lung exam clear bilaterally, without wheezing, rhonchi or rales. Cardiac exam reveals normal rate, regular rhythm, and no murmurs. Abdomen non-distended. Extremities: warm and well-perfused no joint swelling or deformity on exam of the hands no cyanosisor clubbing. Skin: no rashes or lesions noted. No focal neurologic defects noted. Lab/Radiology/Diagnostic Review: I reviewed previous medical records and my summary of relevant results is: Pneumococcal titers 04/12/22: measured, was not able to be measured. --- Impression/Plan: (J32.9) Recurrent sinusitis (primary encounter diagnosis) Plan: Allergy skin tests allergens, each (Z86.19) Frequent infections Plan: Ambulatory referral to Immunology, CBC with auto differential, Comprehensive metabolic panel, IgG, IgA, IgM, Immunoglobulin IgG subclasses, Strep pneumoniae antibody serotypes, Haemophilus influenzae B Ab IgG, Tetanus antibody, IgG, Lymphocyte subpopulation 7 (H10.13) Allergic conjunctivitis, bilateral Plan: IgE, Allergy skin tests allergens, each, Allergy skin tests allergens, each (J30.2) Seasonal allergic rhinitis, unspecified trigger Plan: IgE, Allergy skin tests allergens, each, Allergy skin tests allergens, each, triamcinolone (NASACORT) 55 mcg nasal inhaler (R10.10) Upper abdominal pain Plan: IgE, Galactose alpha 1,3 galactose IgE, Tryptase (R05.3) Chronic cough Plan: budesonide-formoteroL (Symbicort) 80-4.5 mcg/actuation inhaler, levalbuterol (XOPENEX HFA) 45 mcg/actuation inhaler Discussion: Skin testing was positive to [place], oak, Bermuda grass, brome grass, Jorge L grass, [place] bluegrass, Timi grass, cockleburr, lambs quarter, anderson aria, bhutanese plantain, alternaria, aspergillus, cladosporium, curvularia, epicoccum, fusarium, penicillium, might DP, might DF, cat, dog, mike kroach, mouse Skin testing was positive to [place], oak, [place] grass, brome grass, Jorge L grass, [place] bluegrass, Timi grass, cockleburr, lambs quarter, anderson aria, bhutanese plantain, alternaria, aspergillus, cladosporium, curvularia, epicoccum, fusarium, penicillium, might DP, might DF, cat, dog, mike kroach, mouse For her frequent infections, discussed that this could be due to multiple reasons. First, she has significant allergic sensitization on testing, and when allergies are poorly controlled it can lead to frequent sinus infections. Beyond that, high levels of allergic inflammation can also lead to increased susceptibility to viral infections leading to bronchitis. Similarly, her high levels of allergic sensitization suggest she might have asthma, which can also predispose to bronchitis and viral infections in addition to causing symptoms of cough on its own. Thus, one critical aspect of treatmentshould focus on reducing her nasal and airway inflammation. Suggested she use an intranasal steroid without perfume, such as nasacort or rhinocort. Suggested she try doing nasal washes again to see if she can tolerate them, because this could lead to significant benefit. However, some patients simply don't tolerate saline irrigation of their nose. If over the counter allergy medications aren't hel ping, I think she would be a great candidate for allergen immunotherapy. This could significantly reduce her symptom burden and may also reduce the frequency and severity of her sinus infections. In regard to her respiratory symptoms, I think her cough is most likely cough variant form of asthma, given her allergic sensitization ANS and respiratory symptoms. Thus, I suggest that she start using SMART therapy. Send in a prescription for symbicort. Discuss that smart therapy involves using that controller medication symbicort like you would normally use a rescue inhaler such as albuterol. Additionally, I switched her albuterol inhaler to levalbuterol, which will hopefully cause less side effects such as palpitations. She has not had pulmonary function testing, and i will see how she responds to the above therapies, but most likely we'll send for pulmonary function testing in dependingon the immune workup maybe also a chest CT. I sent a more involved immune workup, since immune globulins IgG subclasses repeat pneumococcal titers, tetanus titer, and hemophilus influenza titer. For now, I think it's worth seeing how she responds to treatment of her allergies and what shows up in this initial immune workup. Next steps shouldbe referral to ENT to make sure that she doesn't have a structural issue in her sinuses that could be fixed to reduce her sinus infections. I may also consider sending genetic testing if she does notrespond to treatment of her allergies and any potential sinus issues by ENT. Given some of her chronic gastrointestinal symptoms, I sent alpha gal. Also sent a tryptase. Return to clinic in 4-6 weeks documented in this encounter Plan of Treatment Scheduled Orders Name Type Priority Associated Diagnoses Orde r Schedule Allergy skin tests allergens, each Procedures Routine Allergic conjunctivitis, bilateral Seasonal allergic rhinitis, unspecified trigger Ordered: 09/04/2022 documented as of this encounter Procedures Procedure Name Priority Date/Time Associated Diagnosis Comments SCAN - LABS 09/04/2022 documented in this encounter Results * Lymphocyte subpopulation 7 (09/04/2022 11:30 AM CDT) WBC 8.2 3.8 - 9.9 K/cumm [facility] Lymphocyte pct 30.8 20.0 - 54.3 % [facility] Lymphocyte abs 2,526 /cumm [facility] CD3 pct 70 60 - 88 % [facility] CD3 abs 1,768 661 - 1,963 /cumm [facility] CD4 pct 46 31 - 64 % [facility] CD4 abs 1,162 365 - 1,294 /cumm [facility] CD8 pct 22 12 - 40 % [facility] CD8 abs 556 187 - 781 /cumm [facility] CD19 pct 10 6 - 25 % [facility] CD19 abs 253 86 - 488 /cumm [facility] [id number] pct 15 5 - 25 % [facility] [id number] abs 379 76 - 467 /cumm [facility] CD2 pct 84 % [facility] CD2 abs 2,122 /cumm [facility] HLA-DR pct 16 % [facility] HLA-DR abs 404 /cumm [facility] CD3 HLA-DR pct 2 % [facility] CD3 HLA-DR abs 51 /cumm [facility] CD4/CD8 ratio 2.1 0.9 - 4.4 [facility] Blood 09/04/2022 11:3 0 AM CDT 09/04/2022 1:05 PM CDT [facility] - 09/04/2022 3:32 PM CDT This test was developed and its performance characteristics determined by the [facility]. It has not been cleared or approved by the US Food and Drug Administration. This test is used for clinical purposes. It should not be regarded as investigational or for research. This laboratory is certified under the Clinical Laboratory Improvement Amendments (CLIA) as qualified to perform high complexity clinical laboratory testing. Jackson Elliott MD PhD LAB BLOOD ORDERABLE S Final Result [facility] Department [place] [address] * Tetanus antibody, IgG (09/04/2022 11:30 AM CDT) [facility] Tetanus IgG Ab Positive [facility] Comment: REFERENCE VALUE Vaccinated: Positive (>= 0.01 IU/mL) Unvaccinated: Negative (< 0.01 IU/mL) Tetanus IgG Value >2.24 IUnits/mL [facility] Comment: ADDITIONAL INFORMATION This test was developed and its performance characteristics determined by [facility] in a manner consistent with CLIA requirements. This test has not been cleared or approved by the U.S. Food and Drug Administration. Test Performed by: [facility] [place] [address] Restaurant Host: Lexx Pierre M.D. Ph.D.; CLIA# [id number] Blood 09/04/2022 11:3 0 AM CDT 09/04/2022 4:15 PM CDT Jackson Elliott MD PhD LAB BLOOD ORDERABLE S Final Result [facility] Department [place] [address] * Haemophilus influenzae B Ab IgG (09/04/2022 11:30 AM CDT) [facility] Haemophilus Influenza B, Leyla 0.24 >=0.15 mg/L [facility] Comment: ADDITIONAL INFORMATION The minimum level of protective antibody in the normal population is 0.15 mg/L. However, the optimum antibody level to confer intermediate immunity is >= 1.0 mg/L post vaccination. Test Performed by: [facility] - [address] [address] Restaurant Host: Lexx Pierre M.D. Ph.D.; CLIA# [id number] Blood 09/04/2022 11:3 0 AM CDT 09/04/2022 4:06 PM CDT us Jackson Elliott MD PhD LAB BLOOD ORDERABLE S Final Result [facility] Department [place] [address] * Strep pneumoniae antibody serotypes (09/04/2022 11:30 AM CDT) S. pneumo Type 1 (1) 10.2 >=2.3 mcg/mL [facility] S. pneumo Type 2 (2) 13.2 >=1.0 mcg/mL [facility] S. pneumo Type 3 (3) 4.5 >=1.8 mcg/mL [facility] S. pneumo Type 4 (4) 9.4 >=0.6 mcg/mL [facility] S. pneumo Type 5 (5) 2.6 >=10.7 mcg/mL [facility] S. pneumo Type 8 (8) 6.6 >=2.9 mcg/mL [facility] S. pneumo Type 9N (9) See Footnote >=9.2 mcg/mL [facility] Comment: Unable to perform testing on serotype 9N (9) due to reagent issue. S. pneumo Type 12F (12) 1.7 >=0.6 mcg/mL [facility] S. pneumo Type 14 (14) 1.6 >=7.0 mcg/mL [facility] S. pneumo Type 17F (17) 4.1 >=7.8 mcg/mL [facility] S. pneumo Type 19F (19) 65.2 >=15.0 mcg/mL [facility] S. pneumo Type 20 (20) 1.5 >=1.3 mcg/mL [facility] S. pneumo Type 22F (22) See Footnote >=7.2 mcg/mL [facility] Comment: No result available due to non-linear dilution response for this serotype. See Interpretation. S. pneumo Type 23F (23) 18.9 >=8.0 mcg/mL [facility] S. pneumo Type 6B (26) 7.2 >=4.7 mcg/mL [facility] S. pneumo Type 10A (34) 3.3 >=2.9 mcg/mL [facility] S. pneumo Type 11A (43) 3.1 >=2.4 mcg/mL [facility] S. pneumo Type 7F (51) 2.2 >=3.2 mcg/mL [facility] S. pneumo Type 15B (54) 5.6 >=3.3 mcg/mL [facility] S. pneumo Type 18C (56) <0.4 >=3.3 mcg/mL [facility] S. pneumo Type 19A (57) 8.1 >=17.1 mcg/mL [facility] S. pneumo Type 9V (68) 20.3 >=2.6 mcg/mL [facility] S. pneumo Type 33F (70) 1.6 >=1.7 mcg/mL [facility] Comment: Unable to quantitate serotype 22F (22) due to nonlinear dilution response of patient sample. Overall interpretation of pneumococcal antibody serology panel can be based on the reported 21 serotypes. Either of the two following conditions would be consistent with a normal response to Streptococcus pneumoniae vaccination: Antibody concentrations greater than or equal to the reference value for at least 50% of serotypes in either a pre- or post-vaccination sample. Antibody concentrations increased by 2-fold or greater for at least 50% of serotypes when comparing the pre- to the post-vaccination results. Optimal cut-offs (reference values) were derived by measuring serotype-specific IgG antibody levels in an adult cohort of 100 healthy individuals (previously unvaccinated) before and after pneumococcal vaccination and identifying the antibody level for each serotype that included the largest number of individuals with a negative response (below cut-off) pre-vaccination and a positive response (above cut-off) post-vaccination. ADDITIONAL INFORMATION All 23 serotypes assessed by this assay are included in the Pneumovax 23 vaccine. IgG antibody concentrations following Pneumovax 23 administration are a reflection of an individual's humoral immune response to polysaccharide antigens. Serotypes 1, 3, 4, 5, 6A (6), 14, 19F (19), 23F (23), 6B (26), 7F (51), 18C (56), 19A (57) and 9V (68) are included in the Prevnar-13 conjugate vaccine. Antibody concentrations following Prevnar-13 administration are a reflection of an individual's response to protein-conjugated antigens. Serotypes 2, 8, 9N (9), 12F (12), 17F (17), 20, 22F (22), 10A (34), 11A (43), 15B (54) and 33F (70) are present only in the Pneumovax 23 vaccine and not in Prevnar-13. Responses to these 11 serotypes are a reflection of an individual's response to polysaccharide antigens. Serotype 6A is only present in Prevnar-13. This test was developed and its performance characteristics determined by [facility] in a manner consistent with CLIA requirements. This test has not been cleared or approved by the U.S. Food and Drug Administration. Test Performed by: [place] [address] Restaurant Host: Lexx Pierre M.D. Ph.D.; CLIA# [id number] Blood 09/04/2022 11:3 0 AM CDT 09/04/2022 4:08 PM CDT us Jackson Elliott MD PhD LAB BLOOD ORDERABLE S Final Result [facility] Department [place] [address] * Immunoglobulin IgG subclasses (09/04/2022 11:30 AM CDT) [facility] IgG 1033 767 - 1590 mg/dL [facility] IgG, fraction 1 597 341 - 894 mg/dL [facility] IgG, fraction 2 283 171 - 632 mg/dL [facility] IgG, fraction 3 43.9 18.4 - 106.0 mg/dL [facility] IgG, fraction 4 11.6 2.4 - 121.0 mg/dL [facility] Comment: Test Performed by: [place] [address] [address] Restaurant Host: Lexx Pierre M.D. Ph.D.; [facility]# [id number] Blood 09/04/2022 11:3 0 AM CDT 09/04/2022 4:10 PM CDT Jackson Elliott MD PhD LAB BLOOD ORDERABLE S Final Result Performing Organization Address City/[facility]/ZIP Co de Phone Number [facility] Department [place] [address] * IgM (09/04/2022 11:30 AM CDT) Immunoglobulin M 85.0 40.0 - 230.0 mg/dL [facility] Blood 09/04/2022 11:3 0 AM CDT 09/04/2022 1:05 PM CDT Jackson Elliott MD PhD LAB BLOOD ORDERABLE S Final Result Performing Organization Address [facility] Co de Phone Number [facility] Department [place] [address] * IgA (09/04/2022 11:30 AM CDT) Pathologist [facility] [place] Immunoglobulin A 229.0 70.0 - 400.0 mg/dL [facility] Blood 09/04/2022 11:3 0 AM CDT 09/04/2022 1:05 PM CDT Narrative [facility] - 09/04/2022 2:33 PM CDT Send to [facility] lab for more sensitive test (lower limit of detection) Jackson Elliott MD PhD LAB BLOOD ORDERABLE S Final Result Performing Organization Address City/[facility] Co de Phone Number [facility] [place] [address] * IgG (09/04/2022 11:30 AM CDT) Immunoglobulin G 1,066.0 700.0 - 1,600.0 mg/dL [facility] Blood 09/04/2022 11:3 0 AM CDT 09/04/2022 1:05 PM CDT us Jackson Elliott MD PhD LAB BLOOD ORDERABLE S Final Result [facility] Department [place] [address] * Comprehensive metabolic panel (09/04/2022 11:30 AM CDT) Sodium 142 135 - 145 mmol/L [facility] Potassium, pl 3.9 3.3 - 4.9 mmol/L [facility] Chloride 106 97 - 110 mmol/L [facility] CO2 28 22 - 32 mmol/L [facility] Anion gap 8 2 - 15 mmol/L [facility] BUN 9 8 - 25 mg/dL [facility] Creatinine 0.68 0.60 - 1.10 mg/dL [facility] Glucose 85 70 - 199 mg/dL [facility] Comment: Interpretive Data Fasting glucose >/= 126 [...] Current interpretive data was last revised 2022. Calcium 9.2 8.5 - 10.3 mg/dL [facility] Bilirubin, total 0.2 0.1 - 1.2 mg/dL [facility] Protein, pl 7.3 6.5 - 8.5 g/dL [facility] Albumin 4.2 3.5 - 5.0 g/dL [facility] Alk phos 93 40 - 130 Units/L [facility] ALT 16 7 - 45 Units/L [facility] AST 16 10 - 45 Units/L [facility] Blood 09/04/2022 11:3 0 AM CDT 09/04/2022 1:05 PM CDT us Jackson Elliott MD PhD LAB BLOOD ORDERABLE S Final Result Performing Organization Address City/[facility] Co de Phone Number [facility] Department [place] [employer] [place] [address] * (ABNORMAL) CBC with auto differential (09/04/2022 11:30 AM CDT) [facility] WBC 8.2 3.8 - 9.9 K/cumm [facility] Hgb 13.1 11.9 - 15.5 g/dL [facility] Hct 40.7 35.6 - 45.5 % [facility] Plt 400 150 - 400 K/cumm [facility] MPV 9.0(L) 9.1 - 12.3 fL [facility] RBC 4.75 3.90 - 5.20 M/cumm [facility] MCV 85.7 81.3 - 96.4 fL [facility] MCH 27.6 27.1 - 33.3 pg [facility] MCHC 32.2(L) 32.3 - 35.7 g/dL [facility] RDW CV 12.6 11.1 - 14.9 % [facility] RDW SD 39.2 35.7 - 48.1 fL [facility] NRBC abs 0.00 0.00 - 0.01 K/cumm [facility] Blood 09/04/2022 11:3 0 AM CDT 09/04/2022 1:05 PM CDT us Jackson Elliott MD PhD LAB BLOOD ORDERABLE S Final Result Performing Organization Address City/[facility]/ZIP Co de Phone Number [facility] Department [place] [address] * Tryptase (09/04/2022 11:30 AM CDT) [facility] Tryptase Level 2.7 <11.5 ng/mL [facility] Comment: Test Performed by: [place] [address] Restaurant Host: Lexx Pierre M.D. Ph.D.; CLIA# [id number] Blood 09/04/2022 11:3 0 AM CDT 09/04/2022 4:15 PM CDT Jackson Elliott MD PhD LAB BLOOD ORDERABLE S Final Result Performing Organization Address City/[facility]/ZIP Co de Phone Number [facility] [place] [address] * Galactose alpha 1,3 galactose IgE (09/04/2022 11:30 AM CDT) [facility] RAST, zdexdbbgi-qiaom-6 ,3-galactose <0.10 <0.70 kUnits/L [facility] Comment: Class 0 (Negative <0.10) Test Performed by: [place] [address] Restaurant Host: Lexx Pierre M.D. Ph.D.; CLIA# [id number] Blood 09/04/2022 11:3 0 AM CDT 09/04/2022 4:03 PM CDT us Jackson Elliott MD PhD LAB BLOOD ORDERABLE S Final Result [facility] [place] [address] * IgE (09/04/2022 11:30 AM CDT) Pathologist [facility] [place] IgE 56.6 1.0 - 100.0 IUnits/mL [facility] Blood 09/04/2022 11:3 0 AM CDT 09/04/2022 1:05 PM CDT us Jackson Elliott MD PhD LAB BLOOD ORDERABLE S Final Result [facility] Department [place] [address] * SCAN - LABS (09/04/2022) us Provider Scanning Final Result documented in this encounter Visit Diagnoses Diagnosis Recurrent sinusitis- Primary Unspecified sinusitis (chronic) Frequent infections Allergic conjunctivitis, bilateral Other chronic allergic conjunctivitis Seasonal allergic rhinitis, unspecified trigger Upper abdominal pain Chronic cough Cough Frequent infections Upper abdominal pain Allergic conjunctivitis, bilateral Other chronic allergic conjunctivitis Seasonal allergic rhinitis, unspecified trigger documented in this encounter Discontinued Medications Medication Sig Discontinue Reason Start Date End Da te albuterol HFA (PROVENTIL HFA,VENTOLIN HFA,PROAIR HFA) 90 mcg/actuation inhalerIndications:Shor tness of breath Inhale 2 puffs every 4 (four) hours as needed for wheezing or shortness of breath Alternate therapy 04/12/2022 09/04/2022 documented as of this encounter Orders Outpatient Referral Count Last Ordered Date Fir st Ordered Date AMB REFERRAL TO IMMUNOLOGY 1 09/04/2022 documented in this encounter Care Teams Horizontal Boring Mill Set Up Operator Relationship Specialty Start Date End Date Lorie Vanessa NP [address] [place] [address] PCP - General Family Practice 05/29/22 No, Physician 06/08/21 documented as of this encounter
--- OUTSIDE RECORDS SUMMARY | 2024-06-06 00:34 | XMS_ITS | Encounter Summary ---
Author Organization [facility] Address [address] [place] [address] Care Team Providers Care District Leader Name Role Phone No, Physician Unavailable Lorie Vanessa NP Primary Care Provider [phone] Encounter Details Date Type Department Care Team (Late st Contact Info) Description 09/18/2022 Telephone [facility] Gastroenterology at [address] [place] [address] Cj Thomas MD [address] [place] [address] [address] [place], [place] [id number] Social History Tobacco Use Types Packs/Day Years Used Date Smoking Tobacco: Never Smokeless Tobacco: Never PHQ-2 Answer Date Recorded PHQ-2 Total Score (If total score is 3 or more points, staff should administer the PHQ-9) 0 04/12/2022 Comments No Sex and Gender Information Value Date Recorded Sex Assigned at Not on file Legal Sex Female 6:55 PM CLINICAL PROGRAM COORDINATOR Gender Identity Female 06/06/2022 7:40 AM CLINICAL PROGRAM COORDINATOR Sexual Orientation Not on file documented as of this encounter Miscellaneous Notes * Telephone Encounter - Ramya Castañeda MA - 09/18/2022 8:49 AM CDT Spoke to Pt. Regarding the US result. Pt is informed and verbally understood. * Telephone Encounter - Ramya Castañeda MA - 09/18/2022 8:49 AM CDT ----- Message from Cj Thomas MD sent at 09/14/2022 12:45 PM CDT ----- Please call patient and inform ultrasound shows fatty liver, otherwise unremarkable. Recommend avoiding alcohol, weight loss, and exercise daily. ??We will discuss further at follow up visit. documented in this encounter Plan of Treatment Not on file documented as of this encounter Visit Diagnoses Not on filedocumented in this encounter Care Teams District Leader Relationship Specialty Start Date End Date Lorie Vanessa NP [address] [place] [address] PCP - General Family Practice 05/29/22 No, Physician 06/08/21 documented as of this encounter
--- OUTSIDE RECORDS SUMMARY | 2024-06-06 00:34 | XMS_ITS | Encounter Summary ---
Author Organization [facility] Address [address] [place] [address] Care Team Providers Care Cone Baker Machine Name Role Phone No, Physician Unavailable Lorie Vanessa NP Primary Care Provider [phone] Encounter Details Date Type Department Care Team (Late st Contact Info) Description 09/17/2022 Telephone [facility] Gastroenterology at [address] [place] [address] Cj Thomas MD [address] [place] [address] [address] [place], [place] [id number] Social History Tobacco Use Types Packs/Day Years Used Date Smoking Tobacco: Never Smokeless Tobacco: Never PHQ-2 Answer Date Recorded PHQ-2 Total Score (If total score is 3 or more points, staff should administer the PHQ-9) 0 04/12/2022 Comments No Sex and Gender Information Value Date Recorded Sex Assigned at Not on file Legal Sex Female 6:55 PM BOWLING BALL ENGRAVER Gender Identity Female 06/06/2022 7:40 AM BOWLING BALL ENGRAVER Sexual Orientation Not on file documented as of this encounter Miscellaneous Notes * Telephone Encounter - Ramya Castañeda MA - 09/21/2022 3:12 PM CDT Spoke to Pt. Regarding the US result. Pt is informed and verbally understood. * Telephone Encounter - Ramya Castañdea MA - 09/17/2022 4:27 PM CDT LVM to Pt to call back our office for the US result. * Telephone Encounter - Ramya Castañeda MA - 09/17/2022 4:27 PM CDT ----- Message from Cj Thomas [...] on filedocumented in this encounter Care Teams Cone Baker Machine Relationship Specialty Start Date End Date Lorie Vanessa NP [address] [place] [address] PCP - General Family Practice 05/29/22 No, Physician 06/08/21 documented as of this encounter
--- OUTSIDE RECORDS SUMMARY | 2024-06-06 00:34 | XMS_ITS | Encounter Summary ---
Author Organization [facility] Address [address] [place] [address] Care Team Providers Care Outcomes Manager Name Role Phone No, Physician Unavailable Lorie Vanessa NP Primary Care Provider [phone] Encounter Details Date Type Department Care Team (Late st Contact Info) Description 09/13/2022 Patient Self-Triage [facility] HealthCare/ Physicians [address] [place] [address] Mychart, Generic Provider [address] [place] [address] Social History Tobacco Use Types Packs/Day Years Used Date Smoking Tobacco: Never Smokeless Tobacco: Never PHQ-2 Answer Date Recorded PHQ-2 Total Score (If total score is 3 or more points, staff should administer the PHQ-9) 0 04/12/2022 Comments No Sex and Gender Information Value Date Recorded Sex Assigned at Not on file Legal Sex Female 6:55 PM IC ENGINEER Gender Identity Female 06/06/2022 7:40 AM IC ENGINEER Sexual Orientation Not on file documented as of this encounter Plan of Treatment Not on file documented as of this encounter Visit Diagnoses Not on filedocumented in this encounter Care Teams Outcomes Manager Relationship Specialty Start Date End Date Lorie Vanessa NP [address] [place] [address] PCP - General Family Practice 05/29/22 No, Physician 06/08/21 documented as of this encounter
--- OUTSIDE RECORDS SUMMARY | 2024-06-06 00:34 | XMS_ITS | Encounter Summary ---
Author Organization [facility] Address [address] [place] [address] Care Team Providers Care Metal Shaping Machine Operator Name Role Phone No, Physician Unavailable Lorie Vanessa NP Primary Care Provider Reason for Referral * Diagnostic Imaging (Routine) - Closed Specialty Diagnoses / Procedures Referred By Cyn burnett Referred To Contact Diagnoses Acute left ankle pain Procedures XR Ankle Left 3+ Vw Lorie Vanessa NP [address] [place] [address] Phone: tel: fax: [address] [address] Referral ID Status Reason Start Date Expiration Date Visits Re quested Visits Authorized [id number] Closed 09/10/2022 10/10/2023 1 1 Encounter Details Date Type Department Care Team (Late st Contact Info) Description 09/10/2022 Telephone [facility] Primary Care at [place] [id number] [address] Lorie Vanessa NP [address] [address] Social History Tobacco Use Types Packs/Day Years Used Date Smoking Tobacco: Never Smokeless Tobacco: Never PHQ-2 Answer Date Recorded PHQ-2 Total Score (If total score is 3 or more points, staff should administer the PHQ-9) 0 04/12/2022 Comments No Sex and Gender Information Value Date Recorded Sex Assigned at Not on file Legal Sex Female 6:55 PM SAP INTEGRATION ARCHITECT Gender Identity Female 06/06/2022 7:40 AM SAP INTEGRATION ARCHITECT Sexual Orientation Not on file documented as of this encounter Miscellaneous Notes * Telephone Encounter - Shilo Michael MA - 09/10/2022 7:39 AM CDT [email or web address] message sent to pt. * Telephone Encounter - Lorie Vanessa NP - 09/10/2022 7:22 AM CDT I did not order an x-ray of her left ankle as she was having pain to the dorsal aspect of her left foot at the time of her office visit, order placed for left ankle x-ray. I also put in a referral for her to see orthopedic surgeon, , in [place]. * Telephone Encounter - Lorie Vanessa NP - 09/10/2022 7:20 AM CDT ----- Message from Shilo Michael MA sent at 09/10/2022 7:07 AM CDT ----- Regarding: FW: Recent fall Contact: Please advise. Appt? Teledoc? ----- Message ----- From: Emily Guerrier Sent: 09/06/2022 10:59 PM CDT To: [facility] [place] Subject: Recent fall I saw that all of my Xrays were negative for fractures. The pain in my knee and ankle are still very persistent. My back/hip/upper body pain is getting better with rest. The ankle swelling isn't going down either. Tonight is the first night i've attempted to wear a tennis shoe rather than sandals and it is painful to have the shoe on. I don't know what to do next in regards to the pain and swelling. documented in this encounter Plan of Treatment Not on file documented as of this encounter Results * XR Ankle Left 3+ Vw (09/14/2022 9:23 AM CDT) Anatomical Region Laterality Modality Lower Extremities, Ankle Left Compute d Radiography 09/14/2022 12:3 8 PM CDT Narrative 09/14/2022 12:39 PM CDT EXAM DESCRIPTION: ?XR ANKLE LEFT 3 OR MORE VIEWS REASON FOR STUDY: ?? Left ankle pain status post fall ?? Pt fell X 1 month, has Lt ankle swelling X 1 month worsens the longer she is on her feet towards the end of the day. No surgeries. ?? TECHNIQUE: ?? Total of 3 ??radiographic views acquired of the left ankle. COMPARISON: Left foot radiograph 09/03/2022. FINDINGS: BONES/JOINTS: ?? No acute fracture, malalignment or osseous abnormalities. ?? Joint spaces are maintained. SOFT TISSUES: ?? Unremarkable. OTHER: ?? No other significant finding. IMPRESSION: ?? No acute osseous abnormality. THIS IS AN ELECTRONICALLY VERIFIED FINAL REPORT 09/14/2022 12:39 PM - Electronically signed by ??Zaheer Berry M.D. D: ??09/14/2022 12:38 PM T: Report ID: [id number] Reading Location: ??[id number] Procedure Note Zaheer Berry Jr., MD - 09/14/2022 EXAM DESCRIPTION: XR ANKLE LEFT 3 OR MORE VIEWS REASON FOR STUDY: Left ankle pain status post fall Pt fell X 1 month, has Lt ankle swelling X 1 month worsens the longer sheis on her feet towards the end of the day. No surgeries. TECHNIQUE: Total of 3 radiographic views acquired of the left ankle. COMPARISON: Left foot radiograph 09/03/2022. FINDINGS: BONES/JOINTS: No acute fracture, malalignment or osseous abnormalities. Joint spaces are maintained. SOFT TISSUES: Unremarkable. OTHER: No other significant finding. IMPRESSION: No acute osseous abnormality. THIS IS AN ELECTRONICALLY VERIFIED FINAL REPORT 09/14/2022 12:39 PM - Electronically signed by Zaheer Berry M.D. T: Report ID: [id number] Reading Location: [place] [address] Lorie Vanessa NP IMG XR PROCEDURES Final Result documented in this encounter Visit Diagnoses Diagnosis Acute pain of left knee- Primary Acute left ankle pain Acute left ankle pain documented in this encounter Care Teams Metal Shaping Machine Operator Relationship Specialty Start Date End Date Lorie Vanessa, COREMAKER EXPERIMENTAL [address] [place] [id number] PCP - General Family Practice 05/29/22 No, Physician 06/08/21 documented as of this encounter
--- OUTSIDE RECORDS SUMMARY | 2024-06-06 00:34 | XMS_ITS | Encounter Summary ---
Author Organization [facility] Address [address] [place] [address] Phone Care Team Providers Care Graduate Assistant Athletic Trainer Name Role Phone No, Physician Unavailable Lorie Vanessa NP Primary Care Provider [phone] Encounter Details Date Type Department Care Team (Late st Contact Info) Description 09/27/2022 Telephone [facility] [address] [facility] [address] [address] [facility] Medical Office [address] [place] [phone] Rogelio Bonds RMA Social History Tobacco Use Types Packs/Day Years Used Date Smoking Tobacco: Never Smokeless Tobacco: Never PHQ-2 Answer Date Recorded PHQ-2 Total Score (If total score is 3 or more points, staff should administer the PHQ-9) 0 04/12/2022 Comments No Sex and Gender Information Value Date Recorded Sex Assigned at Not on file Legal Sex Female 6:55 PM CUSTODIAL WORKER Gender Identity Female 06/06/2022 7:40 AM CUSTODIAL WORKER Sexual Orientation Not on file documented as of this encounter Miscellaneous Notes * Telephone Encounter - Rogelio Hawk RMA - 09/27/2022 4:04 PM CDT error documented in this encounter Plan of Treatment Not on file documented as of this encounter Visit Diagnoses Not on filedocumented in this encounter Care Teams Graduate Assistant Athletic Trainer Relationship Specialty Start Date End Date Lorie Vanessa NP [address] [place] [id number] PCP - General Family Practice 05/29/22 No, Physician 06/08/21 documented as of this encounter
--- OUTSIDE RECORDS SUMMARY | 2024-06-06 00:34 | XMS_ITS | Encounter Summary ---
Author Organization [facility] Healthcare Address [address] [place] [address] Care Team Providers Care Equipment Inspector Name Role Phone No, Physician Unavailable Lorie Vanessa NP Primary Care Provider [phone] Reason for Referral * Diagnostic Imaging (Routine) - Closed Specialty Diagnoses / Procedures Referred By Cyn burnett Referred To Contact Diagnoses Acute left ankle pain Procedures XR Ankle Left 3+ Vw Lorie Vanessa NP [address] [place] [address] Phone: tel: fax: [address] [phone] Referral ID Status Reason Start Date Expiration Date Visits Re quested Visits Authorized [id number] Closed 09/10/2022 10/10/2023 1 1 Reason for Visit * Diagnostic Imaging (Routine) - Closed Specialty Diagnoses / Procedures Referred By Cyn burnett Referred To Contact Diagnoses Acute left ankle pain Procedures XR Ankle Left 3+ Vw Lorie Vanessa NP [address] [place] [address] Phone: tel: fax: [address] [phone] Referral ID Status Reason Start Date Expiration Date Visits Re quested Visits Authorized [id number] Closed 09/10/2022 10/10/2023 1 1 Encounter Details Date Type Department Care Team (Latest Contact Info) Description 09/14/2022 9:05 AM CDT - 09/14/2022 11:59 PM CDT Hospital Encounter [facility] [address] [place] [address] Acute left ankle pain Discharge Disposition: Discharge to home or [...] on file Legal Sex Female 6:55 PM CRUSHER SCREEN REPAIRER Gender Identity Female 06/06/2022 7:40 AM CRUSHER SCREEN REPAIRER Sexual Orientation Not on file documented [...] prevent thrush. Do not swallow. 1 each 09/04/2022 3 famotidine (PEPCID) 40 mg tabletIndications:G astroesophageal reflux disease without esophagitis Take 1 tablet (40 mg total) by mouth nightly as needed for heartburn 30 tablet 3 08/21/2022 3 levalbuterol (XOPENEX HFA) 45 mcg/actuation inhalerIndications: Chronic cough Inhale 1-2 puffs every 6 (six) hours as needed for wheezing 1 each 3 09/04/2022 3 magnesium oxide (MAG-OX) 400 mg (241.3 mg elemental magnesium) tablet Take 1 tablet (400 mg total) by mouth daily 90 tablet 07/13/2022 3 norethindrone (MICRONOR) 0.35 mg tablet Take 1 tablet (0.35 mg total) by mouth daily 05/12/2021 3 ondansetron ODT (ZOFRAN-ODT) 8 mg disintegrating tabletIndications:N ausea DISSOLVE 1 TABLET(8 MG) ON THE TONGUE EVERY 8 HOURS NEEDED FOR NAUSEA OR VOMITING 30 tablet 08/02/[address] (PROTONIX) 40 mg EC tabletIndications:N ausea,Upper abdominal pain Take 1 tablet (40 mg total) by mouth 2 (two) times a day 60 tablet 06/06/2022 3 promethazine (PHENERGAN) 25 mg tablet Take [...] Name Priority Date/Time Associated Diagnosis Comments XR ANKLE LEFT 3 OR MORE VIEWS Schedule Routine, Read Routine (OP Routine) 09/14/2022 9:23 AM CDT Acute left ankle pain documented in this encounter Results * XR Ankle Left [...] D: ??09/14/2022 12:38 PM T: Report ID: [id number] Reading Location: ??[id number] Procedure Note Zaheer Berry Jr., MD - [...] 12:39 PM - Electronically signed by Zaheer eBrry M.D. CH T: Report ID: [id number] Reading Location: [id number] us Lorie Vanessa FUSE SPOOLER IMG XR PROCEDURES Final Result documented in this encounter Visit Diagnoses Diagnosis Acute left ankle pain documented in this encounter Care Teams Equipment Inspector Relationship Specialty Start Date End Date Lorie Vanessa, DUDLEY [address] [place] [address] PCP - General Family Practice 05/29/22 No, Physician 06/08/21 documented as of this encounter
--- OUTSIDE RECORDS SUMMARY | 2024-06-06 00:34 | XMS_ITS | Encounter Summary ---
Author Organization [facility] Address [address] [place] [address] Care Team Providers Care Rn Charge Name Role Phone No, Physician Unavailable Lorie Vanessa NP Primary Care Provider [phone] Encounter Details Date Type Department Care Team (Late st Contact Info) Description 09/13/2022 E-Visit [facility] Virtual Care [address] [place] [address] Adriana Marshall NP [address] [place] [address] E-Visit for Sinus Infection Social History Tobacco Use Types Packs/Day Years Used Date Smoking Tobacco: Never Smokeless Tobacco: Never PHQ-2 Answer Date Recorded PHQ-2 Total Score (If total score is 3 or more points, staff should administer the PHQ-9) 0 04/12/2022 Comments No Sex and Gender Information Value Date Recorded Sex Assigned at Not on file Legal Sex Female 6:55 PM SINGER SONGWRITER Gender Identity Female 06/06/2022 7:40 AM SINGER SONGWRITER Sexual Orientation Not on file documented as of this encounter Miscellaneous Notes * E-Visit Note - Adriana Marshall NP - 09/13/2022 10:11 AM CDT Emily Guerrier 09/13/2022 E-Visit Submission Subjective/Objective: Emily Guerrier contacted the office today via e-visit for Sinusitis. The patient-submitted questionnaire was assessed for pertinent information and the patient's problem list, medication list, and allergies were reviewed as part of the e-visit. The chart was updated to identify any changes in these areas. Assessment: No diagnosis found. Plan: The patient was given information regarding any new medication(s) prescribed, if applicable, as well as any oicj-opk-wuvrsbk remedies. She was given instructions regarding follow up and timeframe if symptoms worsen or don???t improve. These instructions were included in the [facility] Mobile message reply tothe patient. Patient Instructions were included in the message reply to patient. My total encounter time on 09/13/2022 was 5 minutes which was spent in the activities documented inthe note. Adriana Marshall NP documented in this encounter Plan of Treatment Not on file documented as of this encounter Visit Diagnoses Not on filedocumented in this encounter Care Teams Rn Charge Relationship Specialty Start Date End Date Lorie Vanessa NP [address] [place] [address] PCP - General Family Practice 05/29/22 No, Physician 06/08/21 documented as of this encounter
--- OUTSIDE RECORDS SUMMARY | 2024-06-06 00:34 | XMS_ITS | Encounter Summary ---
Author Organization [facility] Address [address] [place] [address] Care Team Providers Care Business Development Associate Name Role Phone No, Physician Unavailable Lorie Vanessa NP Primary Care Provider [phone] Encounter Details Date Type Department Care Team (Late st Contact Info) Description 09/11/2022 Telephone [facility] Primary Care at [place] [address] [facility] [address] [place] [address] Lorie Vanessa NP [address] [place] [address] Social History Tobacco Use Types Packs/Day Years Used Date Smoking Tobacco: Never Smokeless Tobacco: Never PHQ-2 Answer Date Recorded PHQ-2 Total Score (If total score is 3 or more points, staff should administer the PHQ-9) 0 04/12/2022 Comments No Sex and Gender Information Value Date Recorded Sex Assigned at Not on file Legal Sex Female 6:55 PM CHIEF ENGINEER 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 REASON FOR CALL: Concerning prior note. Please ask pt questions in prior note. Thank you. * Telephone Encounter - Shilo Michael MA - 09/11/2022 2:37 PM CDT ----- Message from Lorie Vanessa NP sent at 09/05/2022 5:52 AM CDT ----- Regarding: Reason for visit Shilo, Upon review for reason for visit on 09/03/22, realized new prescription for pantoprazole was not addressed, please clarify a medication problem/new prescription for pantoprazole for daily as per insurance). Thank you. Pennie documented in this encounter Plan of Treatment Not on file documented as of this encounter Visit Diagnoses Not on filedocumented in this encounter Care Teams Business Development Associate Relationship Specialty Start Date End Date Lorie Vanessa NP [address] [place] [address] PCP - General Family Practice 05/29/22 No, Physician 06/08/21 documented as of this encounter
--- OUTSIDE RECORDS SUMMARY | 2024-06-06 00:34 | XMS_ITS | Encounter Summary ---
Author Organization [facility] Healthcare Address [address] [place] [address] Care Team Providers Care Slot Manager Name Role Phone No, Physician Unavailable Lorie Vanessa NP Primary Care Provider Reason for Visit * Diagnostic Imaging (Routine) - Closed Specialty Diagnoses / Procedures Referred By Cyn burnett Referred To Contact Diagnoses Upper abdominal pain Nausea Procedures US Abdomen Limited US Abdomen Complete Cj Thomas MD [address] [place] [address] Phone: tel: fax: [address] [phone] Referral ID Status Reason Start Date Expiration Date Visits Re quested Visits Authorized [id number] Closed 08/21/2022 09/20/2023 1 1 Encounter Details Date Type Department Care Team (Latest Contact Info) Description 09/14/2022 8:29 AM CDT - 09/14/2022 11:59 PM CDT Hospital Encounter [address] [address] Upper abdominal pain; Nausea Discharge Disposition: Discharge to home or [...] on file Legal Sex Female 6:55 PM BEHAVIORAL HEALTH CLINICIAN Gender Identity Female 06/06/2022 7:40 AM BEHAVIORAL HEALTH CLINICIAN Sexual Orientation Not on file documented as [...] hours as needed for wheezing 1 each 09/04/2022 3 magnesium oxide (MAG-OX) 400 mg (241.3 mg elemental magnesium) tablet Take 1 tablet (400 mg total) by mouth daily 90 tablet 07/13/2022 3 norethindrone (MICRONOR) 0.35 mg tablet Take 1 tablet (0.35 mg total) by mouth daily 05/12/2021 09/25/202 3 ondansetron ODT (ZOFRAN-ODT) 8 mg disintegrating [...] Name Priority Date/Time Associated Diagnosis Comments US ABDOMEN LIMITED Schedule Routine, Read Routine (OP Routine) 09/14/2022 8:56 AM CDT Upper abdominal pain Nausea documented in this encounter Results * US Abdomen Limited (09/14/2022 8:56 AM CDT) Anatomical Region Laterality Modality Abdomen N/A Ultrasound 09/14/2022 12:3 1 PM CDT Narrative 09/14/2022 12:37 PM CDT EXAM DESCRIPTION: ?? US ABDOMEN LIMITED REASON FOR STUDY: Abdominal pain, acute, for 4 years with nausea for 1 year. TECHNIQUE: Ultrasound of the right upper quadrant of the abdomen was performed with grayscale and color Doppler. COMPARISON: None. FINDINGS: PANCREAS: ??Visualized portions of the pancreas are within normal limits. Portions of the pancreatic body and tail are obscured due to bowel gas. LIVER: The liver is slightly increased ??in echogenicity. ??Liver measures ??16.2 cm. No focal hepatic lesions are seen. Antegrade direction of flow shown in the main portal vein. GALLBLADDER: ??No echogenic gallstones, gallbladder wall thickening, or pericholecystic fluid. No positive sonographic Myrick's sign reported. BILIARY: There is no intrahepatic biliary ductal dilatation. The common bile duct measures ??0.3 ??cm in diameter. RIGHT KIDNEY: Right kidney is ??10.5 ??cm in length. There is no hydronephrosis. The echogenicity is ??normal. OTHER: ??No other significant finding. IMPRESSION: Mild hepatic steatosis, otherwise negative right upper quadrant ultrasound. THIS IS AN ELECTRONICALLY VERIFIED FINAL REPORT 09/14/2022 12:37 PM - Electronically signed by ??Zaheer Berry M.D. D: ??09/14/2022 12:37 PM T: Report ID: [id number] Reading Location: ??[id number] Procedure Note Zaheer Berry Jr., MD - 09/14/2022 EXAM DESCRIPTION: US ABDOMEN LIMITED REASON FOR STUDY: Abdominal pain, acute, for 4 years with nausea for 1year. TECHNIQUE: Ultrasound of the right upper quadrant of the abdomen wasperformed with grayscale and color Doppler. COMPARISON: None. FINDINGS: PANCREAS: Visualized portions of the pancreas are within normal limits. Portions of the pancreatic body and tail are obscured due to bowel gas. LIVER: The liver is slightly increased in echogenicity. Liver zozemazz48.2 cm. No focal hepatic lesions are seen. Antegrade direction of flow shownin the main portal vein. GALLBLADDER: No echogenic gallstones, gallbladder wall thickening, or pericholecystic fluid. No positive sonographic Myrick's sign reported. BILIARY: There is no intrahepatic biliary ductal dilatation. The commonbile duct measures 0.3 cm in diameter. RIGHT KIDNEY: Right kidney is 10.5 cm in length. There is nohydronephrosis. The echogenicity is normal. OTHER: No other significant finding. IMPRESSION: Mild hepatic steatosis, otherwise negative right upperquadrant ultrasound. THIS IS AN ELECTRONICALLY VERIFIED FINAL REPORT 09/14/2022 12:37 PM - Electronically signed by Zaheer Berry M.D. T: Report ID: [id number] Reading Location: [id number] [facility]j [facility] PROCEDURES Final Result documented in this encounter Visit Diagnoses Diagnosis Upper abdominal pain Nausea Nausea alone documented in this encounter Care Teams Slot Manager Relationship Specialty Start Date End Date Lorie Vanessa NP [address] [place] [address] PCP - General Family Practice 05/29/22 No, Physician 06/08/21 documented as of this encounter
--- OUTSIDE RECORDS SUMMARY | 2024-06-06 00:34 | XMS_ITS | Encounter Summary ---
Author Organization [facility] Healthcare Address [address] [place] [address] Phone Care Team Providers Care Casino Floor Person Name Role Phone No, Physician Unavailable Lorie Vanessa NP Primary Care Provider [phone] Encounter Details Date Type Department Care Team (Late st Contact Info) Description 09/27/2022 Documentation [facility] Allergy and Immunology [address] [place] [id number] Rogelio Bonds RMA Social History Tobacco Use Types Packs/Day Years Used Date Smoking Tobacco: Never Smokeless Tobacco: Never PHQ-2 Answer Date Recorded PHQ-2 Total Score (If total score is 3 or more points, staff should administer the PHQ-9) 0 04/12/2022 Comments No Sex and Gender Information Value Date Recorded Sex Assigned at Not on file Legal Sex Female 6:55 PM AIR QUALITY ENGINEER Gender Identity Female 06/06/2022 7:40 AM AIR QUALITY ENGINEER Sexual Orientation Not on file documented as of this encounter Progress Notes * Rogelio Hawk RMA - 09/27/2022 4:04 PM CDT Symbicort and Levalbuterol approved Case#[id number] Dates 08-28-2022 thru 09-27-2023 Pharmacy notified documented in this encounter Plan of Treatment Not on file documented as of this encounter Visit Diagnoses Not on filedocumented in this encounter Care Teams Casino Floor Person Relationship Specialty Start Date End Date Lorie Vanessa NP [address] [place] [address] PCP - General Family Practice 05/29/22 No, Physician 06/08/21 documented as of this encounter
--- OUTSIDE RECORDS SUMMARY | 2024-06-06 00:34 | XMS_ITS | Encounter Summary ---
Author Organization [facility] Healthcare Address [address] [place] [address] Care Team Providers Care Team Guide Name Role Phone No, Physician Unavailable Lorie Vanessa NP Primary Care Provider [phone] Encounter Details Date Type Department Care Team (Late st Contact Info) Description 09/04/2022 11:10 AM CDT [facility] at the [address] [address] Frequent infections; Upper abdominal pain; Allergic conjunctivitis, bilateral; Seasonal allergic rhinitis, unspecified [...] file Legal Sex Female 6:55 PM SENIOR QUALITATIVE RESEARCHER Gender Identity Female 06/06/2022 7:40 AM SENIOR QUALITATIVE RESEARCHER Sexual Orientation Not on file documented as of this encounter Plan of Treatment Not on file documented as of this encounter Procedures Procedure Name Priority Date/Time Associated Diagnosis Comments LYMPHOCYTE SUBPOPULATION 7 Routine 09/04/2022 11:30 AM CDT Frequent infections IMMUNOGLOBULIN IGG SUBCLASSES Routine 09/04/2022 11:30 AM CDT Frequent infections EGFR Routine 09/04/2022 11:30 AM CDT Frequent infections DIFFERENTIAL AUTO Routine 09/04/2022 11: 30 AM CDT Frequent infections GALACTOSE ALPHA 1,3 GALACTOSE IGE Routine 09/04/2022 11:30 AM CDT Upper abdominal pain CBC WITH AUTO DIFFERENTIAL Routine 09/04/2022 11:30 AM CDT Frequent infections TETANUS ANTIBODY, IGG Routine 09/04/2022 11:30 AM CDT Frequent infections TRYPTASE Routine 09/04/2022 11:30 AM CDT Upper abdominal pain STREP PNEUMONIAE ANTIBODY SEROTYPES Routine 09/04/2022 11:30 AM CDT Frequent infections HAEMOPHILUS INFLUENZAE B AB IGG Routine 09/04/2022 11:30 AM CDT Frequent infections IGE Routine 09/04/2022 11:30 AM CDT Allergic conjunctivitis, bilateral Seasonal allergic rhinitis, unspecified trigger Upper abdominal pain IGA Routine 09/04/2022 11:30 AM CDT Frequent infections IGM Routine 09/04/2022 11:30 AM CDT Frequent infections IGG Routine 09/04/2022 11:30 AM CDT Frequent infections COMPREHENSIVE METABOLIC PANEL Routine 09/04/2022 11:30 AM CDT Frequent infections documented in this encounter Results * eGFR (09/04/2022 11:30 AM CDT) eGFR >90 90 - 130 mL/min/1. 73 m2 [facility] Comment: Interpretive Data Reference Interval Normal ?>/= [...] Current interpretive data was last reviewed 2021. Blood 09/04/2022 11:3 0 AM CDT 09/04/2022 1:10 PM CDT us Jackson Elilott MD PhD LAB BLOOD ORDERABLE S Final Result Performing Organization Address City/State/[facility] Co de Phone Number [facility] Department [place] [address] * Differential, auto (09/04/2022 11:30 AM CDT) Neutrophil abs 4.8 1.7 - 6.5 K/cumm [facility] Imm gran abs 0.0 0.0 - 0.1 K/cumm [facility] Lymphocyte abs 2.5 0.8 - 3.3 K/cumm [facility] Monocyte abs 0.7 0.2 - 0.8 K/cumm [facility] Eosinophil abs 0.2 0.0 - 0.5 K/cumm [facility] Basophil abs 0.1 0.0 - 0.1 K/cumm [facility] Neutrophil pct 57.9 % [facility] Comment: Interpretive Data Percent cell count reference ranges are not reported, since discordance with absolute values may lead to misinterpretation of CBC data. Current Interpretive Data was last revised on 2017. Imm gran pct 0.4 % [facility] Comment: Interpretive Data Percent cell count reference ranges are not reported, since discordance with absolute values may lead to misinterpretation of CBC data. Current Interpretive Data was last revised on 2017. Lymphocyte pct 30.8 % [facility] Comment: Interpretive Data Percent cell count reference ranges are not reported, since discordance with absolute values may lead to misinterpretation of CBC data. Current Interpretive Data was last revised on 2017. Monocyte pct 8.3 % [facility] Comment: Interpretive Data Percent cell count reference ranges are not reported, since discordance with absolute values may lead to misinterpretation of CBC data. Current Interpretive Data was last revised on 2017. Eosinophil pct 1.9 % [facility] Comment: Interpretive Data Percent cell count reference ranges are not reported, since discordance with absolute values may lead to misinterpretation of CBC data. Current Interpretive Data was last revised on 2017. Basophil pct 0.7 % [facility] Comment: Interpretive Data Percent cell count reference ranges are not reported, since discordance with absolute values may lead to misinterpretation of CBC data. Current Interpretive Data was last revised on 2017. Blood 09/04/2022 11:3 0 AM CDT 09/04/2022 1:05 PM CDT us Jackson Elliott MD PhD LAB BLOOD ORDERABLE S Final Result [facility] Department [place] [address] * IgE (09/04/2022 11:30 AM CDT) IgE 56.6 1.0 - 100.0 IUnits/mL [facility] Blood 09/04/2022 11:3 0 AM CDT 09/04/2022 1:05 PM CDT Jackson Elliott MD PhD LAB BLOOD ORDERABLE S Final Result Performing Organization Address [facility] de Phone Number [facility] [place] [address] * Galactose alpha 1,3 galactose IgE (09/04/2022 11:30 AM CDT) RAST, [id number] ,3-galactose <0.10 <0.70 kUnits/L [facility] Comment: Class 0 (Negative <0.10) Test Performed by: [place] [address] Bleach Boiler Packer: Lexx Pierre M.D. Ph.D.; CLIA# [id number] Blood 09/04/2022 11:3 0 AM CDT 09/04/2022 4:03 PM CDT Jackson Elliott MD PhD LAB BLOOD ORDERABLE S Final Result Performing Organization Address [facility] [place] [address] * Tryptase (09/04/2022 11:30 AM CDT) Tryptase Level 2.7 <11.5 ng/mL [facility] Comment: Test Performed by: [place] [address] Bleach Boiler Packer: Lexx Pierre M.D. Ph.D.; CLIA# [id number] Blood 09/04/2022 11:3 0 AM CDT 09/04/2022 4:15 PM CDT Jackson Elliott MD PhD LAB BLOOD ORDERABLE S Final Result Performing Organization Address [facility] Co de Phone Number [facility] Department [place] [address] * (ABNORMAL) CBC with auto differential (09/04/2022 11:30 AM CDT) [facility] WBC 8.2 3.8 - 9.9 K/cumm [facility] Hgb 13.1 11.9 - 15.5 g/dL [facility] Hct 40.7 35.6 - 45.5 % [facility] Plt 400 150 - 400 K/cumm [facility] MPV 9.0(L) 9.1 - 12.3 fL [facility] RBC 4.75 3.90 - 5.20 M/cumm [facility] MCV 85.7 81.3 - 96.4 fL [facility] MCH 27.6 27.1 - 33.3 pg [facility] MCHC 32.2(L) 32.3 - 35.7 g/dL [facility] RDW CV 12.6 11.1 - 14.9 % [facility] RDW SD 39.2 35.7 - 48.1 fL [facility] NRBC abs 0.00 0.00 - 0.01 K/cumm [facility] Blood 09/04/2022 11:3 0 AM CDT 09/04/2022 1:05 PM CDT Jackson Elliott MD PhD LAB BLOOD ORDERABLE S Final Result Performing Organization Address [facility]/ZIP Co de Phone Number [facility] Department [place] [address] * Comprehensive metabolic panel (09/04/2022 11:30 AM CDT) [facility] Sodium 142 135 - 145 mmol/L [facility] Potassium, pl 3.9 3.3 - 4.9 mmol/L [facility] Chloride 106 97 - 110 mmol/L [facility] CO2 28 22 - 32 mmol/L [facility] Anion gap 8 2 - 15 mmol/L [facility] BUN 9 8 - 25 mg/dL [facility] Creatinine 0.68 0.60 - 1.10 mg/dL [facility] Glucose 85 70 - 199 mg/dL [facility] Comment: Interpretive Data Fasting glucose >/= 126 [...] 2022. Calcium 9.2 8.5 - 10.3 mg/dL [facility] Bilirubin, total 0.2 0.1 - 1.2 mg/dL [facility] Protein, pl 7.3 6.5 - 8.5 g/dL [facility] Albumin 4.2 3.5 - 5.0 g/dL [facility] Alk phos 93 40 - 130 Units/L [facility] ALT 16 7 - 45 Units/L [facility] AST 16 10 - 45 Units/L [facility] Blood 09/04/2022 11:3 0 AM CDT 09/04/2022 1:05 PM CDT us Jackson Elliott MD PhD LAB BLOOD ORDERABLE S Final Result [facility] Department [place] [address] * IgG (09/04/2022 11:30 AM CDT) Immunoglobulin G 1,066.0 700.0 - 1,600.0 mg/dL [facility] Blood 09/04/2022 11:3 0 AM CDT 09/04/2022 1:05 PM CDT us Jackson Elliott MD PhD LAB BLOOD ORDERABLE S Final Result [facility] Department [place] [address] * IgA (09/04/2022 11:30 AM CDT) Pathologist [facility] Immunoglobulin A 229.0 70.0 - 400.0 mg/dL [facility] Blood 09/04/2022 11:3 0 AM CDT 09/04/2022 1:05 PM CDT Narrative [facility] - 09/04/2022 2:33 PM CDT Send to [facility] lab for more sensitive test (lower limit of detection) Jackson Elliott MD PhD LAB BLOOD ORDERABLE S Final Result Performing Organization Address City/[facility]/ZIP Co de Phone Number [facility] Department [place] [address] * IgM (09/04/2022 11:30 AM CDT) [facility] Immunoglobulin M 85.0 40.0 - 230.0 mg/dL [facility] Blood 09/04/2022 11:3 0 AM CDT 09/04/2022 1:05 PM CDT Jackson Elliott MD PhD LAB BLOOD ORDERABLE S Final Result [facility] Department [place] [address] * Immunoglobulin IgG subclasses (09/04/2022 11:30 AM CDT) IgG 1033 767 - 1590 mg/dL [facility] IgG, fraction 1 597 341 - 894 mg/dL [facility] IgG, fraction 2 283 171 - 632 mg/dL [facility] IgG, fraction 3 43.9 18.4 - 106.0 mg/dL [facility] IgG, fraction 4 11.6 2.4 - 121.0 mg/dL [facility] Comment: Test Performed by: [facility] [address] [place] [address] Bleach Boiler Packer: Lexx Pierre M.D. Ph.D.; IA# [id number] Blood 09/04/2022 11:3 0 AM CDT 09/04/2022 4:10 PM CDT us Jackson Elliott MD PhD LAB BLOOD ORDERABLE S Final Result [facility] Department [place] [address] * Strep pneumoniae antibody serotypes (09/04/2022 11:30 [...] developed and its performance characteristics determined by [facility] in a manner consistent with CLIA requirements. This test has not been cleared or approved by the U.S. Food and Drug Administration. Test Performed by: [place] [address] Bleach Boiler Packer: Lexx iPerre M.D. Ph.D.; CLIA# [id number] Blood 09/04/2022 11:3 0 AM CDT 09/04/2022 4:08 PM CDT us Jacskon Elliott MD PhD LAB BLOOD ORDERABLE S Final Result [facility] Department [place] [address] * Haemophilus influenzae B Ab IgG (09/04/2022 11:30 AM CDT) [facility] Haemophilus Influenza B, Leyla 0.24 >=0.15 mg/L [facility] Comment: ADDITIONAL INFORMATION The minimum level of protective antibody in the normal population is 0.15 mg/L. However, the optimum antibody level to confer penitentiary immunity is >= 1.0 mg/L post vaccination. Test Performed by: [facility] [place] [address] Bleach Boiler Packer: Lexx Pierre M.D. Ph.D.; CLIA# [id number] Blood 09/04/2022 11:3 0 AM CDT 09/04/2022 4:06 PM CDT Jackson Elliott MD PhD LAB BLOOD ORDERABLE S Final Result [facility] Department [place] [address] * Tetanus antibody, IgG (09/04/2022 11:30 AM CDT) Tetanus IgG Ab Positive [facility] Comment: REFERENCE VALUE Vaccinated: Positive (>= 0.01 IU/mL) Unvaccinated: Negative (< 0.01 IU/mL) Tetanus IgG Value >2.24 IUnits/mL [facility] Comment: ADDITIONAL INFORMATION This test was developed and its performance characteristics determined by [facility] in a manner consistent with CLIA requirements. This test has not been cleared or approved by the U.S. Food and Drug Administration. Test Performed by: [facility] - [address] [address] Bleach Boiler Packer: Lexx Pierre M.D. Ph.D.; CLIA# [id number] Blood 09/04/2022 11:3 0 AM CDT 09/04/2022 4:15 PM CDT us Jackson Elliott MD PhD LAB BLOOD ORDERABLE S Final Result [facility] Department [place] [address] * Lymphocyte subpopulation 7 (09/04/2022 11:30 AM CDT) WBC 8.2 3.8 - 9.9 K/cumm [facility] Lymphocyte pct 30.8 20.0 - 54.3 % [facility] Lymphocyte abs 2,526 /cumm [facility] CD3 pct 70 60 - 88 % [facility] CD3 abs 1,768 661 - 1,963 /cumm [facility] CD4 pct 46 31 - 64 % [facility] CD4 abs 1,162 365 - 1,294 /cumm [facility] CD8 pct 22 12 - 40 % [facility] CD8 abs 556 187 - 781 /cumm [facility] CD19 pct 10 6 - 25 % [facility] CD19 abs 253 86 - 488 /cumm [facility] [id number] pct 15 5 - 25 % [facility] [id number] abs 379 76 - 467 /cumm [facility] CD2 pct 84 % [facility] CD2 abs 2,122 /cumm [facility] HLA-DR pct 16 % [facility] HLA-DR abs 404 /cumm [facility] CD3 HLA-DR pct 2 % [facility] CD3 HLA-DR abs 51 /cumm [facility] CD4/CD8 ratio 2.1 0.9 - 4.4 [facility] Blood 09/04/2022 11:3 0 AM CDT 09/04/2022 1:05 PM CDT Narrative [facility] - 09/04/2022 3:32 PM CDT This test was developed and its performance characteristics determined by the [facility]. It has not been cleared or approved by the US Food and Drug Administration. This test is used for clinical purposes. It should not be regarded as investigational or for research. This laboratory is certified under the Clinical Laboratory Improvement Amendments (CLIA) as qualified to perform high complexity clinical laboratory testing. us Jackson Elliott MD PhD LAB BLOOD ORDERABLE S Final Result [facility] Department [place] [address] documented in this encounter Visit Diagnoses Diagnosis Frequent infections Upper abdominal pain Allergic conjunctivitis, bilateral Other chronic allergic conjunctivitis Seasonal allergic rhinitis, unspecified trigger documented in this encounter Care Teams Team Guide Relationship Specialty Start Date End Date Lorie Vanessa NP [address] [place] [id number] PCP - General Family Practice 05/29/22 No, Physician 06/08/21 documented as of this encounter
--- OUTSIDE RECORDS SUMMARY | 2024-06-06 00:35 | XMS_ITS | Encounter Summary ---
Author Organization [facility] Healthcare Address [address] [place] [address] Care Team Providers Care Director Of Preclinical Research Name Role Phone No, Physician Unavailable Lorie Vanessa NP Primary Care Provider [phone] Reason for Referral * Cardiology (Routine) - Closed Specialty Diagnoses / Procedures Referred By Cyn burnett Referred To Contact Diagnoses Orthostatic hypotension Dizziness Tachycardia, unspecified GALEANO (dyspnea on exertion) Family history of CHF (congestive heart failure) Procedures Stress Treadmill Test Nile Prasad MD Phone: tel: fax: [address] [address] Referral ID Status Reason Start Date Expiration Date Visits Re quested Visits Authorized [id number] Closed 07/13/2022 08/12/2023 1 1 Reason for Visit * Cardiology (Routine) - Closed Specialty Diagnoses / Procedures Referred By Cyn burnett Referred To Contact Diagnoses Orthostatic hypotension Dizziness Tachycardia, unspecified GALEANO (dyspnea on exertion) Family history of CHF (congestive heart failure) Procedures Stress Treadmill Test Nile Prasad MD Phone: tel: fax: [facility] [address] [place] [address] Referral ID Status Reason Start Date Expiration Date Visits Re quested Visits Authorized [id number] Closed 07/13/2022 08/12/2023 1 1 Encounter Details Date Type Department Care Team (Latest Contact Info) Description 08/06/2022 1:04 PM CDT - 08/06/2022 11:59 PM CDT Hospital Encounter [facility] OP Cardiac Testing [address] [place] [address] Nile Prasad MD [address] [address] Orthostatic hypotension; Dizziness; Tachycardia, unspecified; GALEANO (dyspnea on exertion); Family history of CHF (congestive heart failure) Discharge Disposition: Discharge to home or self care Social History Tobacco Use Types Packs/Day Years Used Date Smoking Tobacco: Never PHQ-2 Answer Date Recorded PHQ-2 Total Score (If total score is 3 or more points, staff should administer the PHQ-9) 0 04/12/2022 Comments No Sex and Gender Information Value Date Recorded Sex Assigned at Not on file Legal Sex Female 6:55 PM LABORATORY TECHNICIAN Gender Identity Female 06/06/2022 7:40 AM LABORATORY TECHNICIAN Sexual Orientation Not on file documented as of this encounter Last Filed Vital Signs Vital Sign Reading Time Taken Comments Blood Pressure 116/78 08/06/2022 2:11 PM CDT Pulse 80 08/06/2022 2:11 PM CDT Temperature - - Respiratory Rate - - Oxygen Saturation - - Inhaled Oxygen Concentration - - Weight - [...] tablets (200 mg total) by mouth nightly albuterol HFA (PROVENTIL HFA,VENTOLIN HFA,PROAIR HFA) 90 mcg/actuation inhalerIndications:S hortness of breath Inhale 2 puffs every 4 (four) hours as needed for wheezing or shortness of breath 1 each 1 04/12/2022 3 exenatide ER microspheres (Bydureon BCise) 2 mg/0.85 mL auto-injector Inject 2 mg under the skin once a week 06/25/2022 3 magnesium oxide (MAG-OX) 400 mg (241.3 mg elemental magnesium) tablet Take 1 tablet (400 mg total) by mouth daily 90 tablet 07/13/2022 3 norethindrone (MICRONOR) 0.35 mg tablet Take 1 tablet (0.35 mg total) by mouth daily 05/12/2021 3 ondansetron ODT (ZOFRAN-ODT) 8 mg disintegrating tabletIndications:Na usea DISSOLVE 1 TABLET(8 MG) ON THE TONGUE EVERY 8 HOURS NEEDED FOR NAUSEA OR VOMITING 30 tablet 08/02/[address] (PROTONIX) 40 mg EC tabletIndications:Na usea,Upper abdominal pain Take 1 tablet (40 mg total) by mouth 2 (two) times a day 60 tablet 06/06/2022 3 phentermine 37.5 mg capsule Take 1 capsule (37.5 mg total) by mouth daily 02/23/2022 3 promethazine (PHENERGAN) 25 mg tablet Take 1 tablet (25 mg total) by mouth every 6 (six) hours as needed for nausea or vomiting 20 tablet 07/07/2022 3 propranolol LA (INDERAL LA) 60 mg 24 hr capsule Take 1 capsule (60 mg total) by mouth daily 30 capsule 11 07/13/2022 4 tranexamic acid (LYSTEDA) 650 mg tablet Take 1,300 mg by mouth 3 (three) times a day 07/12/2022 3 traZODone (DESYREL) 150 mg tablet Take 1 tablet (150 mg total) by mouth nightly at bedtime 06/25/2022 3 documented as of this encounter Discharge Disposition Disposition Code Departure Means Destination Discharge to home or self care documented in this encounter Plan of Treatment Not on file documented as of this encounter Procedures Procedure Name Priority Date/Time Associated Diagnosis Comments STRESS TEST ONLY TREADMILL Routine 08/06/2022 2:55 PM CDT Orthostatic hypotension Dizziness Tachycardia, unspecified GALEANO (dyspnea on exertion) Family history of CHF (congestive heart failure) documented in this encounter Results * Stress Treadmill Test (08/06/2022 2:55 PM CDT) Anatomical Region Laterality Modality Ultrasound Narrative 08/06/2022 4:42 PM CDT Patient: Emily Guerrier is a 26 y.o. female. MR#: [id number] CLINICAL INDICATION: ??Orthostatic hypotension, dyspnea on exertion, palpitations, family history of Congestive Heart Failure SITE: ??[facility] STUDY DESCRIPTION: After reviewing benefits, risks and alternatives and obtaining informed consent, patient was exercised on the Jim protocol. ??Patient was only able to exercise for 1 minute, 9 seconds achieving a workload of 70% age predicted maximum heart rate, 4.9 METS. ??Test was terminated due to patient's symptoms of dizziness. ??Resting heart rate was 77 beats per minute which john to a maximum 139 beats per minute. ??Resting blood pressure 120/82 mmHg. ??Blood pressure at the time of dizziness was 138/78 mmHg. EKG: ??Resting EKG showed sinus rhythm. ??There were no EKG changes diagnostic for ischemia during exercise and recovery. ??There were no clinically significant arrhythmias. INTERPRETATION SUMMARY: Stress test is nondiagnostic for detection of myocardial ischemia due to exercise limiting dizziness at 1 minute, 9 seconds on the Jim protocol. During episodes of dizziness, patient was in sinus rhythm with heart rate 139 beats per minute and blood pressure 138/78 mmHg Nile Prasad MD, [facility] Cardiology Copy to: Lorie Vanessa NP ?? us Nile Prasad MD CV STRESS PROCEDURES Final Resul t documented in this encounter Visit Diagnoses Diagnosis Orthostatic hypotension Dizziness Dizziness and giddiness Tachycardia, unspecified GALEANO (dyspnea on exertion) Other dyspnea and respiratory abnormality Family history of CHF (congestive heart failure) Family history of other cardiovascular diseases documented in this encounter Care Teams Director Of Preclinical Research Relationship Specialty Start Date End Date Lorie Vanessa NP [address] [place] [address] PCP - General Family Practice 05/29/22 No, Physician 06/08/21 documented as of this encounter
--- OUTSIDE RECORDS SUMMARY | 2024-06-06 00:35 | XMS_ITS | Encounter Summary ---
Author Organization [facility] Address [address] [facility] [address] [place] [id number] Care Team Providers Care Loan Funder Name Role Phone No, Physician Unavailable Lorie Vanessa NP Primary Care Provider [phone] Encounter Details Date Type Department Care Team (Late st Contact Info) Description 07/13/2022 Telephone [facility] [place] [address] [facility] [address] [place] [address] Lorie Vanessa NP [address] [place] [phone] Social History Tobacco Use Types Packs/Day Years Used Date Smoking Tobacco: Never PHQ-2 Answer Date Recorded PHQ-2 Total Score (If total score is 3 or more points, staff should administer the PHQ-9) 0 04/12/2022 Comments No Sex and Gender Information Value Date Recorded Sex Assigned at Not on file Legal Sex Female 6:55 PM [employer] Gender Identity Female 06/06/2022 7:40 AM [employer] Sexual Orientation Not on file documented as of this encounter Miscellaneous Notes * Telephone Encounter - Lorie Vanessa NP - 07/13/2022 11:46 AM CST Called patient to check on status. She states she was seen by paint prepper, Dr. Prasad, today, has been placed on a 7-day monitor. She states she is being worked up for POTS. She was also started on propranolol and Mg+. She will be getting a stress test and an echo in the near future. She was told to increase her sodium intake and wear compression socks/hose. She also saw the FIELD CONTRACTOR at her automatic furnace operator's office yesterday regarding her ovarian cyst, does not feel like much was accomplished, statesher automatic furnace operator is out-of-town currently. She is feeling so-so. She is still having abdominal pain and dizziness. Offered meclizine for dizziness, however declined due to starting a new medication and Mg+. She was able to work last evening. Advised to send message with updates or if there is anything she needs. [employer]IST * Telephone Encounter - Lorie Vansesa NP - 07/13/2022 11:38 AM CST ----- Message from Shilo Michael MA sent at 07/12/2022 6:35 AM [employer]IST ----- Regarding: FW: Follow up Contact: Please advise. ----- Message ----- From: Emily Guerrier Sent: 07/12/2022 2:13 AM [employer] To: Surjit Pcp Cathy Metcalf Blain Subject: Follow up Hi, went to the ER after the appointment. Doctor in the ER was essentially dismissive over all of my concerns. No repeat CT or any imaging/testing for my RUQ pain. He did order a repeat ultrasound that showed my cyst was smaller. He discussed things related to my reproductive tract and PCOS as if Iwas dumb and knew nothing about my body. He didn???t address my issues with pre-syncope at all. I asked the nurse what to do if I end up getting dizzy and potentially faint since they were not doing any sort of work up and all she told me was ???come back to the ER or call I guess?? . She also suggested I call my OB to discuss a hysterectomy because that???s ???usually the end result of vaginal bleeding?? . I???m still having the pain both RUQ and LLQ, bleeding, and extreme dizziness. I feel incredibly ignored and am afraid to attempt to seek help again with this treatment. [employer]EV[employer] SPECIALIST * Telephone Encounter - Lorie Vanessa NP - 07/13/2022 11:32 AM CST Called patient to check on status. She states she saw her paint prepper today, has been placed on a 7-day monitor. She states she is being worked up for POTS. S yes I hurts him many getting see he eye hurts yet have her [employer] SPECIALIST * Telephone Encounter - Lorie Vanessa NP - 07/13/2022 11:32 AM CST ----- Message from Shilo Michael MA sent at 07/12/2022 6:35 AM [employer]IST ----- Regarding: FW: Follow up Contact: Please advise. ----- Message ----- From: Emily Guerrier Sent: 07/12/2022 2:13 AM [employer]IST To: Surjit Pcp Cathy Metcalf Blain Subject: Follow up Hi, went to the ER after the appointment. Doctor in the ER was essentially dismissive over all of my concerns. No repeat CT or any imaging/testing for my RUQ pain. He did order a repeat ultrasound that showed my cyst was smaller. He discussed things related to my reproductive tract and PCOS as if Iwas dumb and knew nothing about my body. He didn???t address my issues with pre-syncope at all. I asked the nurse what to do if I end up getting dizzy and potentially faint since they were not doing any sort of work up and all she told me was ???come back to the ER or call I guess?? . She also suggested I call my OB to discuss a hysterectomy because that???s ???usually the end result of vaginal bleeding?? . I???m still having the pain both RUQ and LLQ, bleeding, and extreme dizziness. I feel incredibly ignored and am afraid to attempt to seek help again with this treatment. [employer] SPECIALIST documented in this encounter Plan of Treatment Not on file documented as of this encounter Visit Diagnoses Not on filedocumented in this encounter Care Teams Loan Funder Relationship Specialty Start Date End Date Lorie Vanessa NP [address] [place] [id number] PCP - General Family Practice 05/29/22 No, Physician 06/08/21 documented as of this encounter
--- OUTSIDE RECORDS SUMMARY | 2024-06-06 00:35 | XMS_ITS | Encounter Summary ---
Author Organization [facility] Address [address] [facility] [address] [place] [address] Care Team Providers Care Position Clerk Name Role Phone No, Physician Unavailable Lorie Vanessa NP Primary Care Provider [phone] Reason for Referral * Diagnostic Imaging (Routine) - Closed Specialty Diagnoses / Procedures Referred By Contac t Referred To Contact Diagnoses Acute foot pain, left Procedures XR Foot Left 3+ Vw Lorie Vanessa NP [address] [place] [address] Phone: tel: fax: [address] [phone] Referral ID Status Reason Start Date Expiration Date Visits Re quested Visits Authorized [id number] Closed 09/03/2022 10/03/2023 1 1 * Diagnostic Imaging (Routine) - Closed Specialty Diagnoses / Procedures Referred By Contac t Referred To Contact Diagnoses Acute pain of left knee Procedures XR Knee Left 1 Or 2 Vw Lorie Vanessa NP [address] [place] [address] Phone: tel: fax: [address] [phone] Referral ID Status Reason Start Date Expiration Date Visits Re quested Visits Authorized [id number] Closed 09/03/2022 10/03/2023 1 1 * Diagnostic Imaging (Routine) - Closed Specialty Diagnoses / Procedures Referred By Contac t Referred To Contact Diagnoses Acute hip pain, left Procedures XR Hip Left 2+ Vw Lorie Vanessa NP [facility] [address] [address] Phone: tel: fax: [address] [phone] Referral ID Status Reason Start Date Expiration Date Visits Re quested Visits Authorized [id number] Closed 09/03/2022 10/03/2023 1 1 * Diagnostic Imaging (Routine) - Closed Specialty Diagnoses / Procedures Referred By Contac t Referred To Contact Diagnoses Acute left-sided low back pain without sciatica Procedures XR Spine Lumbar 2 Or 3 Vw Lorie Vanessa MEDICAID ANALYST [facility] [address] [address] Phone: tel: fax: [address] [phone] Referral ID Status Reason Start Date Expiration Date Visits Re quested Visits Authorized [id number] Closed 09/03/2022 10/03/2023 1 1 * Diagnostic Imaging (Routine) - Closed Specialty Diagnoses / Procedures Referred By Contac t Referred To Contact Diagnoses Left elbow pain Procedures XR Elbow Left 3+ Vw Lorie Vanessa NP [address] [place] [address] Phone: tel: fax: [address] [phone] Referral ID Status Reason Start Date Expiration Date Visits Re quested Visits Authorized [id number] Closed 09/03/2022 10/03/2023 1 1 * Diagnostic Imaging (Routine) - Closed Specialty Diagnoses / Procedures Referred By Contac t Referred To Contact Diagnoses Acute pain of left shoulder Procedures XR Shoulder Left 2+ Vw Lorie Vanessa NP [address] [place] [address] Phone: tel: fax: [address] [phone] Referral ID Status Reason Start Date Expiration Date Visits Re quested Visits Authorized [id number] Closed 09/03/2022 10/03/2023 1 1 Reason for Visit * Reason Comments Fall Leg and back pain; W -2; Medication Problem New Rx for pantopraz ole for daily as per ins. Encounter Details Date Type Department Care Team (Late st Contact Info) Description 09/03/2022 10:30 AM CDT Office Visit [facility] Primary Care at [address] [phone] Lorie Vanessa NP [address] [place] [address] Acute pain of left shoulder (Primary Dx); Left elbow pain; Acute left-sided low back pain without sciatica; Acute hip pain, left; Acute pain of left knee; Acute foot pain, left Social History Tobacco Use Types Packs/Day Years Used Date Smoking Tobacco: Never PHQ-2 Answer Date Recorded PHQ-2 Total Score (If total score is 3 or more points, staff should administer the PHQ-9) 0 04/12/2022 Comments No Sex and Gender Information Value Date Recorded Sex Assigned at Not on file Legal 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 Gender Identity Female 06/06/2022 7:40 AM 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 Sexual Orientation Not on file documented as of this encounter Last Filed Vital Signs Vital Sign Reading Time Taken Comments Blood Pressure 100/68 09/03/2022 10:37 AM CDT Pulse 79 09/03/2022 10:37 AM CDT Temperature 37.1 ??C (98.7 ??F) 09/03/2022 10:37 AM C DT Respiratory Rate 14 09/03/2022 10:37 AM CDT Oxygen Saturation 99% 09/03/2022 10:37 AM CDT Inhaled Oxygen Concentration - - Weight 126 kg (277 lb 11.2 oz) 09/03/2022 10:37 AM CDT Height 162.6 cm (5' 4.02 ) 09/03/2022 10:37 AM C DT Body Mass Index 47.64 09/03/2022 10:37 AM CDT documented in this encounter Patient Instructions * Patient Instructions* Lorie Vanessa NP - 09/03/2022 10:30 AM CDT Get xrays of left shoulder, left elbow, lumbar spine, left hip, left knee, and left foot. Can take Tylenol as recommended as needed for pain and can continue heat and/or ice. Can also use hjuj-vgd-wmhnvrs lidocaine patches OR topical analgesic creams as directed as needed, but NOT with heat or ice.Further recommendations will depend on outcome of xrays. documented in this encounter Progress Notes * Lorie Vanessa NP - 09/03/2022 10:30 AM CDT Images from the original note were not included. Subjective/Objective Patient ID: Emily Guerrier is a 27 y.o. female. Chief Complaint Fall (Leg and back pain; W-2; ) and Medication Problem (New Rx for pantoprazole for daily as per ins.) HPI She is an established patient who fell 2-3 weeks ago as she was stepping up onto a curb, landed on her left side on concrete. She states that since she fell, she has been having worsening left shoulder, left elbow, left hip, left knee, and left heel/foot pain and stable low back pain. She states she [place] the [place] the [place], was pushed in a wheelchair. She is accompanied by her significant other today, was brought to office in wheelchair. Fall The accident occurred More than 1 week ago. The fall occurred while walking. She fell from a heightof 3 to 5 ft. She landed on [place]. Point of impact: Fell onto left side. The pain is present in the left shoulder, left elbow, left hip, left knee, left foot and left heel. The pain is at a severity of 9/10. The pain is severe. The symptoms are aggravated by ambulation, movement and standing. Per tinent negatives include no fever, headaches, loss of consciousness, nausea, numbness, tingling or vomiting. She has tried rest, ice, heat and acetaminophen for the symptoms. The treatment provided mild relief. Review of Systems Constitutional: Negative for chills and fever. HENT: Negative for sore throat. No loss of taste or smell. Respiratory: Negative for cough and shortness of breath. Gastrointestinal: Negative for diarrhea, nausea and vomiting. Musculoskeletal: Positive for arthralgias (acute, worsening left shoulder pain, left elbow pain, left hip pain, left knee pain, and left foot/heel pain), back pain (acute, stable low back pain since fall) and gait problem (brought to office in wheelchair). Negative for myalgias. Skin: Negative for rash. Neurological: Negative for tingling, loss of consciousness, numbness and headaches. Vitals BP 100/68 (BP Location: Left arm, Patient Position: Sitting) Pulse 79 Temp 37.1 ??C (98.7 ??F) (Temporal) Resp 14 Ht 162.6 cm (5' 4.02 ) Wt 126 kg (277 lb 11.2 oz) SpO2 99% BMI 47.64 kg/m?? Physical Exam Vitals and nursing note reviewed. [...] sounds. No wheezing, rhonchi or rales. Musculoskeletal: Comments: Skin intact to left upper extremity without erythema, edema, ecchymosis, abrasions or rash. Left shoulder is tender upon palpation anteriorly and posteriorly, no pain with full AROM. Left elbow is tender upon palpation. Full AROM to left elbow. Left wrist and hand/fingers without deformity, full AROM noted. No pain upon palpation of left SI joint, but pain upon palpation of left hip. Pain with internal rotation and flexion of left hip. Pain to left lower back and left hip with left lateral leaning and bilateral rotation of spine. Skin intact to left lower extremity without erythema, edema, ecchymosis, abrasions, rash. Pain withflexion and full extension of left knee. Pain with plantar flexion of left foot to dorsal aspect of foot. Facial grimacing at various times throughout exam, tearful at times, verbalized due to pain. Skin: Coloration: Skin is not jaundiced or pale. Findings: No rash. Neurological: General: No focal deficit present. Mental Status: She is alert and oriented to person, place, and time. Psychiatric: Thought Content: Thought content normal. Comments: Tearful at various times throughout exam, verbalized due to pain. Assessment/Plan Return if symptoms worsen or fail to improve. Diagnoses and all orders for this visit: Acute pain of left shoulder (M25.512) (Primary) Assessment & Plan: Acute, worsening-ordered x-rays of left shoulder. Advised can take Tylenol as recommended as neededfor pain and can continue heat and/or ice. Informed can also use uyfv-ecf-egveksq lidocaine patchesOR topical analgesic creams as directed as needed, but NOT with heat or ice. Instructed that further recommendations will depend on outcome of xrays. Orders: - XR Shoulder Left 2+ Vw; Future Left elbow pain (M25.522) Assessment & Plan: Acute, worsening-ordered x-rays of left elbow. Advised can take Tylenol as recommended as needed for pain and can continue heat and/or ice. Informed can also use mdco-kaq-qqwolko lidocaine patches ORtopical analgesic creams as directed as needed, but NOT with heat or ice. Instructed that further re commendations will depend on outcome of xrays. Orders: - XR Elbow Left 3+ Vw; Future Acute left-sided low back pain without sciatica (M54.50) Assessment & Plan: Acute, stable since onset-ordered x-rays of lumbar spine. Advised can take Tylenol as recommended as needed for pain and can continue heat and/or ice. Informed can also use afyg-qpy-mzutxrl lidocainepatches OR topical analgesic creams as directed as needed, but NOT with heat or ice. Instructed that further recommendations will depend on outcome of xrays. Orders: - XR Spine Lumbar 2 Or 3 Vw; Future Acute hip pain, left (M25.552) Assessment & Plan: Acute, worsening-ordered x-rays of left hip. Advised can take Tylenol as recommended as needed for pain and can continue heat and/or ice. Informed can also use detz-abq-qouhqgm lidocaine patches OR topical analgesic creams as directed as needed, but NOT with heat or ice. Instructed that further velma mmendations will depend on outcome of xrays. Orders: - XR Hip Left 2+ Vw; Future Acute pain of left knee (M25.562) Assessment & Plan: Acute, worsening-ordered x-rays of left knee. Advised can take Tylenol as recommended as needed forpain and can continue heat and/or ice. Informed can also use qabs-nyt-yvolyyq lidocaine patches OR topical analgesic creams as directed as needed, but NOT with heat or ice. Instructed that further rec ommendations will depend on outcome of xrays. Orders: - XR Knee Left 1 Or 2 Vw; Future Acute foot pain, left (M79.672) Assessment & Plan: Acute, worsening-ordered x-rays of left foot. Advised can take Tylenol as recommended as needed forpain and can continue heat and/or ice. Informed can also use xwjo-fax-fiuhxgt lidocaine patches OR topical analgesic creams as directed as needed, but NOT with heat or ice. Instructed that further rec ommendations will depend on outcome of xrays. Orders: - XR Foot Left 3+ Vw; Future *This note is dictated using [employer] medical voice recognition software, variances in spelling and vocabulary are possible and unintentional.* Lorie Vanessa NP Answers submitted by the patient for this visit: Lower Extremity Injury Questionnaire (Submitted on 08/31/2022) Chief Complaint: Lower extremity pain Incident occurred: more than 1 week ago Incident location: at home Injury mechanism: a fall Pain location: left hip, left knee, left ankle, left heel, left foot, right hip Pain quality: burning, stabbing Pain - numeric: 9/10 Pain course: worsening tingling: Yes inability to bear weight: No loss of motion: No loss of sensation: No muscle weakness: Yes Foreign body present: no foreign bodies documented in this encounter Miscellaneous Notes * Assessment & Plan Note - Lorie Vanessa NP - 09/05/2022 7:50 AM CDTAssociated Problem(s): Acute foot pain, left (Resolved 12/11/2022) Acute, worsening-ordered x-rays of left foot. Advised can take Tylenol as recommended as needed forpain and can continue heat and/or ice. Informed can also use vlid-ryf-kbhoett lidocaine patches OR topical analgesic creams as directed as needed, but NOT with heat or ice. Instructed that further rec ommendations will depend on outcome of xrays. * Assessment & Plan Note - Lorie Vanessa NP - 09/05/2022 7:50 AM CDTAssociated Problem(s): Acute pain of right knee Acute, worsening-ordered x-rays of left knee. Advised can take Tylenol as recommended as needed forpain and can continue heat and/or ice. Informed can also use sfhu-wvk-tmnrclj lidocaine patches OR topical analgesic creams as directed as needed, but NOT with heat or ice. Instructed that further rec ommendations will depend on outcome of xrays. * Assessment & Plan Note - Lorie Vanessa NP - 09/05/2022 7:50 AM CDTAssociated Problem(s): Acute hip pain, left (Resolved 12/11/2022) Acute, worsening-ordered x-rays of left hip. Advised can take Tylenol as recommended as needed for pain and can continue heat and/or ice. Informed can also use dcpm-ewo-khmbwis lidocaine patches OR topical analgesic creams as directed as needed, but NOT with heat or ice. Instructed that further velma mmendations will depend on outcome of xrays. * Assessment & Plan Note - Lorie Vanessa NP - 09/05/2022 7:49 AM CDTAssociated Problem(s): Chronic left-sided low back pain without sciatica Acute, stable since onset-ordered x-rays of lumbar spine. Advised can take Tylenol as recommended as needed for pain and can continue heat and/or ice. Informed can also use ncny-xru-dsbnwfy lidocainepatches OR topical analgesic creams as directed as needed, but NOT with heat or ice. Instructed that further recommendations will depend on outcome of xrays. * Assessment & Plan Note - Lorie Vanessa NP - 09/05/2022 7:49 AM CDTAssociated Problem(s): Left elbow pain (Resolved 12/11/2022) Acute, worsening-ordered x-rays of left elbow. Advised can take Tylenol as recommended as needed for pain and can continue heat and/or ice. Informed can also use rkdq-vqm-asbmgnr lidocaine patches ORtopical analgesic creams as directed as needed, but NOT with heat or ice. Instructed that further re commendations will depend on outcome of xrays. * Assessment & Plan Note - Lorie Vanessa NP - 09/05/2022 7:48 AM CDTAssociated Problem(s): Acute pain of left shoulder (Resolved 12/11/2022) Acute, worsening-ordered x-rays of left shoulder. Advised can take Tylenol as recommended as neededfor pain and can continue heat and/or ice. Informed can also use fefi-zme-adkjulu lidocaine patchesOR topical analgesic creams as directed as needed, but NOT with heat or ice. Instructed that further recommendations will depend on outcome of xrays. documented in this encounter Plan of Treatment Not on file documented as of this encounter Results * XR Foot Left 3+ Vw (09/03/2022 11:54 AM CDT) Anatomical Region Laterality Modality Lower Extremities, Foot Left Computed Radiography 09/04/2022 7:47 AM CDT Narrative 09/04/2022 8:15 AM CDT EXAM DESCRIPTION: XR KNEE LEFT 1 OR 2 VIEWS; XR SHOULDER LEFT 2 OR MORE VIEWS; XR ELBOW LEFT 3 OR MORE VIEWS; XR SPINE LUMBAR 2 OR 3 VIEWS; XR HIP LEFT 2 OR 3 VIEWS; XR FOOT LEFT 3 OR MORE VIEWS REASON FOR STUDY: left knee pain, left elbow pain, left lower back pain, left hip pain, left heel pain and pain dorsal aspect of left foot. Worsening pain after a fall x 2 weeks ago ? FINDINGS: Two views left knee, three views left shoulder, three views left elbow, two views left hip, three views lumbar spine and three views left foot nonweightbearing submitted with comparison 07/07/2022. Left shoulder: There are no fractures. ??Alignment is normal. ??The glenohumeral and acromioclavicular joints are normal. Left elbow: There are no fractures. ??Alignment is normal. ??The joint spaces are normal. ?? There is no effusion. Lumbar spine: There are no fractures. ??There is mild L1-L2 degenerative disc disease. ?? Alignment is normal. Left hip: There are no fractures. ??Alignment is normal. ??Hip joint space is normal. Left foot: There are no fractures. ??The midfoot joint spaces are normal. ??There is suggestion of hallux valgus on this nonweightbearing exam with mild 1st metatarsophalangeal joint osteoarthritis. IMPRESSION: No acute fracture. Mild L1-L2 degenerative disc disease. 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 THIS IS AN ELECTRONICALLY VERIFIED FINAL REPORT 09/04/2022 8:15 AM - Electronically signed by ??Segundo Curry M.D. MF: [email or web address] D: ??09/04/2022 8:15 AM T: ??09/04/2022 8:15 AM Report ID: [id number] Reading Location: ??[id number] Procedure Note Segundo Curry MD - 09/04/2022 EXAM DESCRIPTION: XR KNEE LEFT 1 OR 2 VIEWS; XR SHOULDER LEFT 2 OR MORE VIEWS; XR ELBOW LEFT 3 OR MORE VIEWS; XR SPINE LUMBAR 2 OR 3 VIEWS; XR HIP LEFT 2 OR 3 VIEWS; XR FOOT LEFT 3 OR MORE VIEWS REASON FOR STUDY: left knee pain, left elbow pain, left lower back pain,left hip pain, left heel pain and pain dorsal aspect of left foot. Worsening pain after a fall x 2 weeks ago FINDINGS: Two views left knee, three views left shoulder, three views left elbow, two views left hip, three views lumbar spine and three views leftfoot nonweightbearing submitted with comparison 07/07/2022. Left shoulder: There are no fractures. Alignment is normal. The glenohumeral and acromioclavicular joints are normal. Left elbow: There are no fractures. Alignment is normal. The joint spaces arenormal. There is no effusion. Lumbar spine: There are no fractures. There is mild L1-L2 degenerative disc disease. Alignment is normal. Left hip: There are no fractures. Alignment is normal. Hip joint space is normal. Left foot: There are no fractures. The midfoot joint spaces are normal. There is suggestion of hallux valgus on this nonweightbearing exam with mild 1st metatarsophalangeal joint osteoarthritis. IMPRESSION: No acute fracture. Mild L1-L2 degenerative disc disease. Suggestion of left hallux valgus on this nonweightbearing exam with [id number] metatarsophalangeal joint osteoarthritis. THIS IS AN ELECTRONICALLY VERIFIED FINAL REPORT 09/04/2022 8:15 AM - Electronically signed by Segundo Curry M.D. MF: [email or web address] Report ID: [id number] Reading Location: [id number] Lorie Vanessa MEDICAID ANALYST IMG XR PROCEDURES Final Result * XR Knee Left 1 Or 2 Vw (09/03/2022 11:54 AM CDT) Anatomical Region Laterality Modality Lower Extremities, Knee Left Computed Radiography 09/04/2022 7:47 AM CDT Narrative 09/04/2022 8:15 AM CDT EXAM DESCRIPTION: XR KNEE LEFT 1 OR 2 VIEWS; XR SHOULDER LEFT 2 OR MORE VIEWS; XR ELBOW LEFT 3 OR MORE VIEWS; XR SPINE LUMBAR 2 OR 3 VIEWS; XR HIP LEFT 2 OR 3 VIEWS; XR FOOT LEFT 3 OR MORE VIEWS REASON FOR STUDY: left knee pain, left elbow pain, left lower back pain, left hip pain, left heel pain and pain dorsal aspect of left foot. Worsening pain after a fall x 2 weeks ago ? FINDINGS: Two views left knee, three views left shoulder, three views left elbow, two views left hip, three views lumbar spine and three views left foot nonweightbearing submitted with comparison 07/07/2022. Left shoulder: There are no fractures. ??Alignment is normal. ??The glenohumeral and acromioclavicular joints are normal. Left elbow: There are no fractures. ??Alignment is normal. ??The joint spaces are normal. ?? There is no effusion. Lumbar spine: There are no fractures. ??There is mild L1-L2 degenerative disc disease. ?? Alignment is normal. Left hip: There are no fractures. ??Alignment is normal. ??Hip joint space is normal. Left foot: There are no fractures. ??The midfoot joint spaces are normal. ??There is suggestion of hallux valgus on this nonweightbearing exam with mild 1st metatarsophalangeal joint osteoarthritis. IMPRESSION: No acute fracture. Mild L1-L2 degenerative disc disease. 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 THIS IS AN ELECTRONICALLY VERIFIED FINAL REPORT 09/04/2022 8:15 AM - Electronically signed by ??Segundo Curry M.D. MF: [email or web address] D: ??09/04/2022 8:15 AM T: ??09/04/2022 8:15 AM Report ID: [id number] Reading Location: ??[id number] Procedure Note Segundo Curry MD - 09/04/2022 EXAM DESCRIPTION: XR KNEE LEFT 1 OR 2 VIEWS; XR SHOULDER LEFT 2 OR MORE VIEWS; XR ELBOW LEFT 3 OR MORE VIEWS; XR SPINE LUMBAR 2 OR 3 VIEWS; XR HIP LEFT 2 OR 3 VIEWS; XR FOOT LEFT 3 OR MORE VIEWS REASON FOR STUDY: left knee pain, left elbow pain, left lower back pain,left hip pain, left heel pain and pain dorsal aspect of left foot. Worsening pain after a fall x 2 weeks ago FINDINGS: Two views left knee, three views left shoulder, three views left elbow, two views left hip, three views lumbar spine and three views leftfoot nonweightbearing submitted with comparison 07/07/2022. Left shoulder: There are no fractures. Alignment is normal. The glenohumeral and acromioclavicular joints are normal. Left elbow: There are no fractures. Alignment is normal. The joint spaces arenormal. There is no effusion. Lumbar spine: There are no fractures. There is mild L1-L2 degenerative disc disease. Alignment is normal. Left hip: There are no fractures. Alignment is normal. Hip joint space is normal. Left foot: There are no fractures. The midfoot joint spaces are normal. There is suggestion of hallux valgus on this nonweightbearing exam with mild 1st metatarsophalangeal joint osteoarthritis. IMPRESSION: No acute fracture. Mild L1-L2 degenerative disc disease. Suggestion of left hallux valgus on this nonweightbearing exam with [id number] metatarsophalangeal joint osteoarthritis. THIS IS AN ELECTRONICALLY VERIFIED FINAL REPORT 09/04/2022 8:15 AM - Electronically signed by Segundo Curry M.D. MF: [email or web address] Report ID: [id number] Reading Location: [id number] Lorie LyleLaura Vanessa MEDICAID ANALYST IMG XR PROCEDURES Final Result * XR Hip Left 2+ Vw (09/03/2022 11:54 AM CDT) Anatomical Region Laterality Modality Lower Extremities, Hip, Pelvis Left C omputed Radiography 09/04/2022 7:47 AM CDT Narrative 09/04/2022 8:15 AM CDT EXAM DESCRIPTION: XR KNEE LEFT 1 OR 2 VIEWS; XR SHOULDER LEFT 2 OR MORE VIEWS; XR ELBOW LEFT 3 OR MORE VIEWS; XR SPINE LUMBAR 2 OR 3 VIEWS; XR HIP LEFT 2 OR 3 VIEWS; XR FOOT LEFT 3 OR MORE VIEWS REASON FOR STUDY: left knee pain, left elbow pain, left lower back pain, left hip pain, left heel pain and pain dorsal aspect of left foot. Worsening pain after a fall x 2 weeks ago ? FINDINGS: Two views left knee, three views left shoulder, three views left elbow, two views left hip, three views lumbar spine and three views left foot nonweightbearing submitted with comparison 07/07/2022. Left shoulder: There are no fractures. ??Alignment is normal. ??The glenohumeral and acromioclavicular joints are normal. Left elbow: There are no fractures. ??Alignment is normal. ??The joint spaces are normal. ?? There is no effusion. Lumbar spine: There are no fractures. ??There is mild L1-L2 degenerative disc disease. ?? Alignment is normal. Left hip: There are no fractures. ??Alignment is normal. ??Hip joint space is normal. Left foot: There are no fractures. ??The midfoot joint spaces are normal. ??There is suggestion of hallux valgus on this nonweightbearing exam with mild 1st metatarsophalangeal joint osteoarthritis. IMPRESSION: No acute fracture. Mild L1-L2 degenerative disc disease. 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 THIS IS AN ELECTRONICALLY VERIFIED FINAL REPORT 09/04/2022 8:15 AM - Electronically signed by ??Segundo VILLA: DAISY D: ??09/04/2022 8:15 AM T: ??09/04/2022 8:15 AM Report ID: [id number] Reading Location: ??[id number] Procedure Note Segundo Curry MD - 09/04/2022 EXAM DESCRIPTION: XR KNEE LEFT 1 OR 2 VIEWS; XR SHOULDER LEFT 2 OR MORE VIEWS; XR ELBOW LEFT 3 OR MORE VIEWS; XR SPINE LUMBAR 2 OR 3 VIEWS; XR HIP LEFT 2 OR 3 VIEWS; XR FOOT LEFT 3 OR MORE VIEWS REASON FOR STUDY: left knee pain, left elbow pain, left lower back pain,left hip pain, left heel pain and pain dorsal aspect of left foot. Worsening pain after a fall x 2 weeks ago FINDINGS: Two views left knee, three views left shoulder, three views left elbow, two views left hip, three views lumbar spine and three views leftfoot nonweightbearing submitted with comparison 07/07/2022. Left shoulder: There are no fractures. Alignment is normal. The glenohumeral and acromioclavicular joints are normal. Left elbow: There are no fractures. Alignment is normal. The joint spaces arenormal. There is no effusion. Lumbar spine: There are no fractures. There is mild L1-L2 degenerative disc disease. Alignment is normal. Left hip: There are no fractures. Alignment is normal. Hip joint space is normal. Left foot: There are no fractures. The midfoot joint spaces are normal. There is suggestion of hallux valgus on this nonweightbearing exam with mild 1st metatarsophalangeal joint osteoarthritis. IMPRESSION: No acute fracture. Mild L1-L2 degenerative disc disease. Suggestion of left hallux valgus on this nonweightbearing exam with [id number] metatarsophalangeal joint osteoarthritis. THIS IS AN ELECTRONICALLY VERIFIED FINAL REPORT 09/04/2022 8:15 AM - Electronically signed by Segundo VILLA: DAISY Report ID: [id number] Reading Location: [id number] us Lorie Vanessa MEDICAID ANALYST IMG XR PROCEDURES Final Result * XR Spine Lumbar 2 Or 3 Vw (09/03/2022 11:54 AM CDT) Anatomical Region Laterality Modality Spine N/A Computed Radiogr aphy 09/04/2022 7:47 AM CDT Narrative 09/04/2022 8:15 AM CDT EXAM DESCRIPTION: XR KNEE LEFT 1 OR 2 VIEWS; XR SHOULDER LEFT 2 OR MORE VIEWS; XR ELBOW LEFT 3 OR MORE VIEWS; XR SPINE LUMBAR 2 OR 3 VIEWS; XR HIP LEFT 2 OR 3 VIEWS; XR FOOT LEFT 3 OR MORE VIEWS REASON FOR STUDY: left knee pain, left elbow pain, left lower back pain, left hip pain, left heel pain and pain dorsal aspect of left foot. Worsening pain after a fall x 2 weeks ago ? FINDINGS: Two views left knee, three views left shoulder, three views left elbow, two views left hip, three views lumbar spine and three views left foot nonweightbearing submitted with comparison 07/07/2022. Left shoulder: There are no fractures. ??Alignment is normal. ??The glenohumeral and acromioclavicular joints are normal. Left elbow: There are no fractures. ??Alignment is normal. ??The joint spaces are normal. ?? There is no effusion. Lumbar spine: There are no fractures. ??There is mild L1-L2 degenerative disc disease. ?? Alignment is normal. Left hip: There are no fractures. ??Alignment is normal. ??Hip joint space is normal. Left foot: There are no fractures. ??The midfoot joint spaces are normal. ??There is suggestion of hallux valgus on this nonweightbearing exam with mild 1st metatarsophalangeal joint osteoarthritis. IMPRESSION: No acute fracture. Mild L1-L2 degenerative disc disease. 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 THIS IS AN ELECTRONICALLY VERIFIED FINAL REPORT 09/04/2022 8:15 AM - Electronically signed by ??Segundo Curry M.D. MF: [email or web address] D: ??09/04/2022 8:15 AM T: ??09/04/2022 8:15 AM Report ID: [id number] Reading Location: ??[id number] Procedure Note Segundo Curry MD - 09/04/2022 EXAM DESCRIPTION: XR KNEE LEFT 1 OR 2 VIEWS; XR SHOULDER LEFT 2 OR MORE VIEWS; XR ELBOW LEFT 3 OR MORE VIEWS; XR SPINE LUMBAR 2 OR 3 VIEWS; XR HIP LEFT 2 OR 3 VIEWS; XR FOOT LEFT 3 OR MORE VIEWS REASON FOR STUDY: left knee pain, left elbow pain, left lower back pain,left hip pain, left heel pain and pain dorsal aspect of left foot. Worsening pain after a fall x 2 weeks ago FINDINGS: Two views left knee, three views left shoulder, three views left elbow, two views left hip, three views lumbar spine and three views leftfoot nonweightbearing submitted with comparison 07/07/2022. Left shoulder: There are no fractures. Alignment is normal. The glenohumeral and acromioclavicular joints are normal. Left elbow: There are no fractures. Alignment is normal. The joint spaces arenormal. There is no effusion. Lumbar spine: There are no fractures. There is mild L1-L2 degenerative disc disease. Alignment is normal. Left hip: There are no fractures. Alignment is normal. Hip joint space is normal. Left foot: There are no fractures. The midfoot joint spaces are normal. There is suggestion of hallux valgus on this nonweightbearing exam with mild 1st metatarsophalangeal joint osteoarthritis. IMPRESSION: No acute fracture. Mild L1-L2 degenerative disc disease. Suggestion of left hallux valgus on this nonweightbearing exam with [id number] metatarsophalangeal joint osteoarthritis. THIS IS AN ELECTRONICALLY VERIFIED FINAL REPORT 09/04/2022 8:15 AM - Electronically signed by Segundo Curry M.D. MF: [email or web address] Report ID: [id number] Reading Location: [id number] Lorie Vanessa NP IMG XR PROCEDURES Final Result * XR Elbow Left 3+ Vw (09/03/2022 11:54 AM CDT) Anatomical Region Laterality Modality Upper Extremities, Elbow Left Compute d Radiography 09/04/2022 7:47 AM CDT Narrative 09/04/2022 8:15 AM CDT EXAM DESCRIPTION: XR KNEE LEFT 1 OR 2 VIEWS; XR SHOULDER LEFT 2 OR MORE VIEWS; XR ELBOW LEFT 3 OR MORE VIEWS; XR SPINE LUMBAR 2 OR 3 VIEWS; XR HIP LEFT 2 OR 3 VIEWS; XR FOOT LEFT 3 OR MORE VIEWS REASON FOR STUDY: left knee pain, left elbow pain, left lower back pain, left hip pain, left heel pain and pain dorsal aspect of left foot. Worsening pain after a fall x 2 weeks ago ? FINDINGS: Two views left knee, three views left shoulder, three views left elbow, two views left hip, three views lumbar spine and three views left foot nonweightbearing submitted with comparison 07/07/2022. Left shoulder: There are no fractures. ??Alignment is normal. ??The glenohumeral and acromioclavicular joints are normal. Left elbow: There are no fractures. ??Alignment is normal. ??The joint spaces are normal. ?? There is no effusion. Lumbar spine: There are no fractures. ??There is mild L1-L2 degenerative disc disease. ?? Alignment is normal. Left hip: There are no fractures. ??Alignment is normal. ??Hip joint space is normal. Left foot: There are no fractures. ??The midfoot joint spaces are normal. ??There is suggestion of hallux valgus on this nonweightbearing exam with mild 1st metatarsophalangeal joint osteoarthritis. IMPRESSION: No acute fracture. Mild L1-L2 degenerative disc disease. 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 THIS IS AN ELECTRONICALLY VERIFIED FINAL REPORT 09/04/2022 8:15 AM - Electronically signed by ??Segundo Curry M.D. MF: [email or web address] D: ??09/04/2022 8:15 AM T: ??09/04/2022 8:15 AM Report ID: [id number] Reading Location: ??[id number] Procedure Note Segundo Curry MD - 09/04/2022 EXAM DESCRIPTION: XR KNEE LEFT 1 OR 2 VIEWS; XR SHOULDER LEFT 2 OR MORE VIEWS; XR ELBOW LEFT 3 OR MORE VIEWS; XR SPINE LUMBAR 2 OR 3 VIEWS; XR HIP LEFT 2 OR 3 VIEWS; XR FOOT LEFT 3 OR MORE VIEWS REASON FOR STUDY: left knee pain, left elbow pain, left lower back pain,left hip pain, left heel pain and pain dorsal aspect of left foot. Worsening pain after a fall x 2 weeks ago FINDINGS: Two views left knee, three views left shoulder, three views left elbow, two views left hip, three views lumbar spine and three views leftfoot nonweightbearing submitted with comparison 07/07/2022. Left shoulder: There are no fractures. Alignment is normal. The glenohumeral and acromioclavicular joints are normal. Left elbow: There are no fractures. Alignment is normal. The joint spaces arenormal. There is no effusion. Lumbar spine: There are no fractures. There is mild L1-L2 degenerative disc disease. Alignment is normal. Left hip: There are no fractures. Alignment is normal. Hip joint space is normal. Left foot: There are no fractures. The midfoot joint spaces are normal. There is suggestion of hallux valgus on this nonweightbearing exam with mild 1st metatarsophalangeal joint osteoarthritis. IMPRESSION: No acute fracture. Mild L1-L2 degenerative disc disease. Suggestion of left hallux valgus on this nonweightbearing exam with [id number] metatarsophalangeal joint osteoarthritis. THIS IS AN ELECTRONICALLY VERIFIED FINAL REPORT 09/04/2022 8:15 AM - Electronically signed by Segundo Curry M.D. MF: [email or web address] Report ID: [id number] Reading Location: [id number] Lorie Vanessa MEDICAID ANALYST IMG XR PROCEDURES Final Result * XR Shoulder Left 2+ Vw (09/03/2022 11:54 AM CDT) Anatomical Region Laterality Modality Upper Extremities, Shoulder Left Comp uted Radiography 09/04/2022 7:47 AM CDT Narrative 09/04/2022 8:15 AM CDT EXAM DESCRIPTION: XR KNEE LEFT 1 OR 2 VIEWS; XR SHOULDER LEFT 2 OR MORE VIEWS; XR ELBOW LEFT 3 OR MORE VIEWS; XR SPINE LUMBAR 2 OR 3 VIEWS; XR HIP LEFT 2 OR 3 VIEWS; XR FOOT LEFT 3 OR MORE VIEWS REASON FOR STUDY: left knee pain, left elbow pain, left lower back pain, left hip pain, left heel pain and pain dorsal aspect of left foot. Worsening pain after a fall x 2 weeks ago ? FINDINGS: Two views left knee, three views left shoulder, three views left elbow, two views left hip, three views lumbar spine and three views left foot nonweightbearing submitted with comparison 07/07/2022. Left shoulder: There are no fractures. ??Alignment is normal. ??The glenohumeral and acromioclavicular joints are normal. Left elbow: There are no fractures. ??Alignment is normal. ??The joint spaces are normal. ?? There is no effusion. Lumbar spine: There are no fractures. ??There is mild L1-L2 degenerative disc disease. ?? Alignment is normal. Left hip: There are no fractures. ??Alignment is normal. ??Hip joint space is normal. Left foot: There are no fractures. ??The midfoot joint spaces are normal. ??There is suggestion of hallux valgus on this nonweightbearing exam with mild 1st metatarsophalangeal joint osteoarthritis. IMPRESSION: No acute fracture. Mild L1-L2 degenerative disc disease. 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 THIS IS AN ELECTRONICALLY VERIFIED FINAL REPORT 09/04/2022 8:15 AM - Electronically signed by ??Segundo Curry M.D. MF: [email or web address] D: ??09/04/2022 8:15 AM T: ??09/04/2022 8:15 AM Report ID: [id number] Reading Location: ??[id number] Procedure Note Segundo Curry MD - 09/04/2022 EXAM DESCRIPTION: XR KNEE LEFT 1 OR 2 VIEWS; XR SHOULDER LEFT 2 OR MORE VIEWS; XR ELBOW LEFT 3 OR MORE VIEWS; XR SPINE LUMBAR 2 OR 3 VIEWS; XR HIP LEFT 2 OR 3 VIEWS; XR FOOT LEFT 3 OR MORE VIEWS REASON FOR STUDY: left knee pain, left elbow pain, left lower back pain,left hip pain, left heel pain and pain dorsal aspect of left foot. Worsening pain after a fall x 2 weeks ago FINDINGS: Two views left knee, three views left shoulder, three views left elbow, two views left hip, three views lumbar spine and three views leftfoot nonweightbearing submitted with comparison 07/07/2022. Left shoulder: There are no fractures. Alignment is normal. The glenohumeral and acromioclavicular joints are normal. Left elbow: There are no fractures. Alignment is normal. The joint spaces arenormal. There is no effusion. Lumbar spine: There are no fractures. There is mild L1-L2 degenerative disc disease. Alignment is normal. Left hip: There are no fractures. Alignment is normal. Hip joint space is normal. Left foot: There are no fractures. The midfoot joint spaces are normal. There is suggestion of hallux valgus on this nonweightbearing exam with mild 1st metatarsophalangeal joint osteoarthritis. IMPRESSION: No acute fracture. Mild L1-L2 degenerative disc disease. Suggestion of left hallux valgus on this nonweightbearing exam with [id number] metatarsophalangeal joint osteoarthritis. THIS IS AN ELECTRONICALLY VERIFIED FINAL REPORT 09/04/2022 8:15 AM - Electronically signed by Segundo Curry M.D. MF: [email or web address] Report ID: [id number] Reading Location: [place] [id number] Lorie Vanessa NP IMG XR PROCEDURES Final Result documented in this encounter Visit Diagnoses Diagnosis Acute pain of left shoulder- Primary Left elbow pain Pain in joint, upper arm Acute left-sided low back pain without sciatica Acute hip pain, left Acute pain of left knee Acute foot pain, left Acute pain of left shoulder Left elbow pain Pain in joint, upper arm Acute left-sided low back pain without sciatica Acute hip pain, left Acute pain of left knee Acute foot pain, left documented in this encounter Discontinued Medications Medication Sig Discontinue Reason Start Date End Da te exenatide ER microspheres (Bydureon BCise) 2 mg/0.85 mL auto-injector Inject 2 mg under the skin once a week Therapy completed 06/25/2022 09/03/2022 documented as of this encounter Care Teams Position Clerk Relationship Specialty Start Date End Date Lorie Vanessa NP [address] [place], [place] [id number] PCP - General Family Practice 05/29/22 No, Physician 06/08/21 documented as of this encounter
--- OUTSIDE RECORDS SUMMARY | 2024-06-06 00:35 | XMS_ITS | Encounter Summary ---
Author Organization [facility] Address [address] [place] [address] Care Team Providers Care Decal Decorator Name Role Phone No, Physician Unavailable Lorie Vanessa NP Primary Care Provider [phone] Reason for Visit * Reason Comments Shortness of Breath Encounter Details Date Type Department Care Team (Late st Contact Info) Description 08/23/2022 9:30 AM CDT Office Visit 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 Gender Identity Female 06/06/2022 7:40 AM AVIATION PROJECT ENGINEER Sexual Orientation Not on file documented as of this encounter Last Filed Vital Signs Vital Sign Reading Time Taken Comments Blood Pressure 90/60 08/23/2022 9:37 AM CDT Pulse 74 08/23/2022 9:37 AM CDT Temperature - - Respiratory Rate - - Oxygen Saturation 98% 08/23/2022 9:37 AM CDT Inhaled Oxygen Concentration - - Weight 125.6 kg (277 lb) 08/23/2022 9:37 AM CDT Height - - Body Mass Index 47.52 08/21/2022 8:23 AM CDT documented in this encounter Progress Notes * Nile Prasad MD - 08/23/2022 9:30 AM CDT Images from the original note were not included. Patient Name: Emily Guerrier : 1995 Date of Service: 08/23/2022 Referring: Lorie Vanessa NP CHIEF COMPLAINT: Shortness of Breath ASSESSMENT: Diagnoses and all orders for this visit: GALEANO (dyspnea on exertion) (Primary) Orthostatic hypotension Preop cardiovascular exam PLAN: Orthostatic dizziness: Encouraged lifestyle modification with hydration, postural precautions and compression stockings. In case of continued symptoms, will plan tilt-table testing. Continued effortsat lifestyle modifications and weight management will be beneficial Chest pain, dyspnea and tachycardia: Symptom complex suggestive of autonomic dysfunction/POTS. Propranolol 60 mg daily. Stress test 9 diagnostic for detection of myocardial ischemia due to low exercise tolerance. Pretest probability for Coronary Artery Disease low and continue medical management aft er shared decision-making Preoperative cardiac risk stratification: Based on findings of echocardiogram and extended Holter monitor, no apparent cardiac reservations to proceeding with planned upper GI endoscopy Will plan routine evaluation in 4 months and p.r.n.. SUBJECTIVE: Emily Guerrier is a 27 y.o. female who presents for ongoing evaluation and management of symptoms of orthostatic dizziness and dyspnea on exertion. NYHA class 2 symptoms. Chest pain off and on which is substernal, sharp, no exertional component and during episodes of tachycardia. No fevers/chills. No syncope but episodes of orthostatic dizziness. Requesting cardiac risk stratification for colonoscopy. CARDIAC DIAGNOSTICS: Transthoracic echocardiogram 08/08/2022: LVEF 60-65%, normal RV function, normal diastology, no pericardial effusion, no pulmonary hypertension Seven day Holter monitor, 07/17/2022: Average heart rate 89 beats per minute, PAC and PVC burden less than 1%, symptom triggered events correlated with sinus rhythm with heart rates between 85-136 beats per minute Treadmill stress test, 08/06/2022: Nondiagnostic for detection of myocardial ischemia due to exercise limiting dizziness at 1 minutes, 9 seconds. During episodes of dizziness, patient was in sinus rhythm with heart rate 139 beats per minute and blood pressure 138/78 mmHg. PROBLEM LIST: Patient Active Problem List Diagnosis PCOS (polycystic [...] D deficiency Lipid screening Annual physical exam FAMILY HISTORYfamily history includes COPD in her mother; Diabetes in her maternal grandmother; Heart failure in her brother; Hypertension in her mother; Mental illness in her maternal grandmother; Squamous cell carcinoma in her father. SOCIAL HISTORY reports that she has never smoked. She has never used smokeless tobacco. No alcohol history on file. ALLERGIES: Allergies Allergen Reactions Adhesive Itching and Rash Fluoxetine Mental status changes Nitrofurantoin Itching MEDICATIONS: Outpatient Encounter Medications as of 08/23/2022 Medication Sig Dispense Refill clonazePAM (KlonoPIN) 0.5 mg tablet Take 1 tablet (0.5 mg total) by mouth daily as needed famotidine (PEPCID) 40 mg tablet Take 1 tablet (40 mg total) by mouth nightly as needed for heartburn 30 tablet 3 lamoTRIgine (LaMICtal) 100 mg tablet Take 1.5 tablets (150 mg total) by mouth daily 1/2 in AM and 1in PM norethindrone (MICRONOR) 0.35 mg tablet Take 1 tablet (0.35 mg total) by mouth daily propranolol LA (INDERAL LA) 60 mg 24 hr capsule Take 1 capsule (60 mg total) by mouth daily 30 capsule 11 sertraline (ZOLOFT) 100 mg tablet Take 2 tablets (200 mg total) by mouth nightly [DISCONTINUED] albuterol HFA (PROVENTIL HFA,VENTOLIN HFA,PROAIR HFA) 90 mcg/actuation inhaler Inhale 2 puffs every 4 (four) hours as needed for wheezing or shortness of breath 1 each 1 [DISCONTINUED] magnesium oxide (MAG-OX) 400 mg (241.3 mg elemental magnesium) tablet Take 1 tablet (400 mg total) by mouth daily 90 tablet 0 [DISCONTINUED] ondansetron ODT (ZOFRAN-ODT) 8 mg disintegrating tablet DISSOLVE 1 TABLET(8 MG) ON THE TONGUE EVERY 8 HOURS NEEDED FOR NAUSEA OR VOMITING 30 tablet 0 [DISCONTINUED] pantoprazole DR (PROTONIX) 40 mg EC tablet Take 1 tablet (40 mg total) by mouth 2 (two) times a day (Patient not taking: Reported on 09/03/2022) 60 tablet 0 [DISCONTINUED] promethazine (PHENERGAN) 25 mg tablet Take 1 tablet (25 mg total) by mouth every 6 (six) hours as needed for nausea or vomiting (Patient not taking: Reported on 09/03/2022) 20 tablet 0 [DISCONTINUED] traZODone (DESYREL) 150 mg tablet Take 1 tablet (150 mg total) by mouth nightly at bedtime [DISCONTINUED] exenatide ER microspheres (Bydureon BCise) 2 mg/0.85 mL auto- injector Inject 2 mg under the skin once a week (Patient not taking: Reported on 08/23/2022) No facility-administered encounter medications on file as of 08/23/2022. PHYSICAL EXAM: Blood pressure 90/60, pulse 74, weight 125.6 kg (277 lb), SpO2 98 %. Body mass index is 47.52 kg/m??. General: Well appearing, No pain or distress Respiratory: Clear to auscultation bilaterally, no wheezing or rhonchi Cardiovascular: S1-S2 normal, no S3 or S4 Musculoskeletal: no obvious joint deformities Skin: No obvious rash or bruising on the exposed areas of the skin . Psychiatric: normal affect, oriented Neurologic: awake/alert, no focal deficits. On behalf of [facility] Cardiology at [facility], we appreciate the opportunity to participate in the care of your patient. Please feel free to contact us if if we can provide any further assistance in this patient's care. Nile Prasad MD, FACC [facility] Cardiology, [facility] [place] [employer] completed by using M*Modal Fluency Direct speaking software, inadvertent felt tipping machine tender variances may occur. documented in this encounter Plan of Treatment Not on file documented as of this encounter Visit Diagnoses Diagnosis GALEANO (dyspnea on exertion)- Primary Other dyspnea and respiratory abnormality Orthostatic hypotension Preop cardiovascular exam Pre-operative cardiovascular examination documented in this encounter Care Teams Decal Decorator Relationship Specialty Start Date End Date Lorie Vanessa NP [address] [place] [id number] PCP - General Family Practice 05/29/22 No, Physician 06/08/21 documented as of this encounter
--- OUTSIDE RECORDS SUMMARY | 2024-06-06 00:35 | XMS_ITS | Encounter Summary ---
Author Organization [facility] Address [address] [place] [address] Care Team Providers Care Impregnator And Drier Name Role Phone No, Physician Unavailable Lorie Vanessa NP Primary Care Provider [phone] Encounter Details Date Type Department Care Team (Late st Contact Info) Description 08/23/2022 10:20 AM CDT Lab [facility] Lab [address] [place] [id number] Orthostatic hypotension; Dizziness; Tachycardia, unspecified; GALEANO (dyspnea on exertion); Family history of CHF (congestive heart failure) Social History Tobacco Use Types Packs/Day Years Used Date Smoking Tobacco: Never PHQ-2 Answer Date Recorded PHQ-2 Total Score (If total score is 3 or more points, staff should administer the PHQ-9) 0 04/12/2022 Comments No Sex and Gender Information Value Date Recorded Sex Assigned at Not on file Legal Sex Female 6:55 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20 mcIUnit/mL [facility] Blood 08/23/2022 10:3 2 AM CDT 08/23/2022 10:49 AM CDT us Nile Prasad MD LAB BLOOD ORDERABLES Final Resul t FRAN [address] [facility] Department [place] [address] documented in this encounter Visit Diagnoses Diagnosis Orthostatic hypotension Dizziness Dizziness and giddiness Tachycardia, unspecified GALEANO (dyspnea on exertion) Other dyspnea and respiratory abnormality Family history of CHF (congestive heart failure) Family history of other cardiovascular diseases documented in this encounter Care Teams Impregnator And Drier Relationship Specialty Start Date End Date Lorie Vanessa NP [address] [place] [id number] PCP - General Family Practice 05/29/22 No, Physician 06/08/21 documented as of this encounter
--- OUTSIDE RECORDS SUMMARY | 2024-06-06 00:35 | XMS_ITS | Encounter Summary ---
Author Organization [facility] Address [address] [place] [address] Care Team Providers Care Dean Name Role Phone No, Physician Unavailable Lorie Vanessa NP Primary Care Provider [phone] Reason for Visit * Reason Comments Abdominal Pain Pt states that her a bd pain started since 2018, she also having diarrhea and constipation on and off. Pt had CSC/EGD last [address] Guzman. Constipation Diarrhea Nausea * Consultation (Routine) - Closed Specialty Diagnoses / Procedures Referred By Contac t Referred To Contact Gastroenterology Diagnoses Upper abdominal pain Nausea Lorie Vanessa, MOLD FILLING OPERATOR [facility] [address] Phone: tel: fax: [facility] Gastroenterology at [address] [place] [address] Phone: tel: Referral ID Status Reason Start Date Expiration Date V isits Requested Visits Authorized [id number] Closed Specialty Services Required 04/12/2022 05/12/2023 12 12 Encounter Details Date Type Department Care Team (Latest Contact Info) Description 08/21/2022 8:00 AM CDT Office Visit [facility] Gastroenterology at [address] [place] [id number] Cj Thomas MD [address] [place] [address] [address] [place] [address] Upper abdominal pain (Primary Dx); Nausea; Gastroesophageal reflux disease without esophagitis; Diarrhea, unspecified type; Constipation, unspecified constipation type Social History Tobacco Use Types Packs/Day Years Used Date Smoking Tobacco: Never PHQ-2 Answer Date Recorded PHQ-2 Total Score (If total score is 3 or more points, staff should administer the PHQ-9) 0 04/12/2022 Comments No Sex and Gender Information Value Date Recorded Sex Assigned at Not on file Legal Sex Female 6:55 PM CERTIFIED APPLIANCE SERVICE TECHNICIAN Gender Identity Female 06/06/2022 7:40 AM CERTIFIED APPLIANCE SERVICE TECHNICIAN Sexual Orientation Not on file documented as of this encounter Last Filed Vital Signs Vital Sign Reading Time Taken Comments Blood Pressure 107/71 08/21/2022 8:23 AM CDT Pulse 71 08/21/2022 8:23 AM CDT Temperature - - Respiratory Rate - - Oxygen Saturation - - Inhaled Oxygen Concentration - - Weight 127 kg (280 lb) 08/21/2022 8:23 AM CDT Height 162.6 cm (5' 4.02 ) 08/21/2022 8:23 AM CD T Body Mass Index 48.04 08/21/2022 8:23 AM CDT documented in this encounter Ordered Prescriptions Prescription Sig Dispense Quantity Refills Last Filled Start Date End Date famotidine (PEPCID) 40 mg tabletIndications: Gastroesophageal reflux disease without esophagitis Take 1 tablet (40 mg total) by mouth nightly as needed for heartburn 30 tablet 3 08/21/2022 3 sodium, potassium & mag sulfates (SUPREP BOWEL KIT) 17.5-3.13-1.6 gram recon solnIndications:Al wel Evacuation Take 360 mL by mouth once for 1 dose Take 180 mL by mouth daily for 2 days Mix 1 bottle with water and take at 6:00 the day prior to procedure. Drink 2nd bottle 4 hours prior to arrival. 180 mL 08/21/2022 3 documented in this encounter Progress Notes * Cj Thomas MD - 08/21/2022 8:00 AM CDT Images from the original note were not included. [facility] [place] [facility] [place] Subjective/Objective Patient ID: Emily Guerrier is a 26 y.o. White female. I am seeing this patient in consultation, requested by Lorie Vanessa NP for abdominal pain. Chief Complaint Patient presents with Abdominal Pain Pt states that her abd pain started since 2018, she also having diarrhea and constipation on and off. Pt had CSC/EGD last [address] Guzman. Constipation Diarrhea Nausea Chief Complaint Abdominal Pain (Pt states that her abd pain started since 2018, she also having diarrhea and constipation on and off. Pt had CSC/EGD last [address] Guzman.), Constipation, Diarrhea, and Nausea HPI Patient presents to GI clinic for evaluation of abdominal pain, alternating constipation and diarrhea, and nausea. Has been seen in the ER multiple times for abdominal pain, records reviewed. Upper abdominal pain, intermittent, describes it as burning and cramping, radiates to lower abdomen, worse with meals, associated with nausea/vomiting, no alleviating factors. Has tried PPIs without any benefit. Chronic GERD for over 10 years, was taking omeprazole, then PCP changed to pantoprazole. Tried to increase to twice a day, but denied by insurance. Has alternating constipation and diarrhea. Chronic diarrhea for years, now more constipated. Last EGD/colonoscopy [address] Guzman, no results available for review. Denies any rectal bleeding, melena, or any other complaints. History reviewed. No pertinent past medical history. Past Surgical History: Procedure Laterality Date BAND HEMORRHOIDECTOMY Social History Tobacco Use Smoking status: Never Smokeless tobacco: None Substance and Sexual Activity Drug use: None Sexual activity: None Alcohol Use: Not on file Family History Problem Relation Age of Onset Hypertension Mother COPD Mother Squamous cell carcinoma Father Heart failure Brother Diabetes Maternal Grandmother Family history of diabetes mellitus - (Added by TW Conv) Mental illness Maternal Grandmother Family history of mental disorder - (Added by TW Conv) Allergies Allergen Reactions Adhesive Itching and Rash Fluoxetine Mental status changes Nitrofurantoin Itching HOME MEDICATIONS : albuterol HFA (PROVENTIL HFA,VENTOLIN HFA,PROAIR HFA) 90 mcg/actuation inhaler clonazePAM (KlonoPIN) 0.5 mg tablet lamoTRIgine (LaMICtal) 100 mg tablet magnesium oxide (MAG-OX) 400 mg (241.3 mg elemental magnesium) tablet norethindrone (MICRONOR) 0.35 mg tablet ondansetron ODT (ZOFRAN-ODT) [address] tablet pantoprazole [address] (PROTONIX) 40 mg EC tablet promethazine (PHENERGAN) 25 mg tablet propranolol LA (INDERAL LA) 60 mg 24 hr capsule sertraline (ZOLOFT) 100 mg tablet traZODone (DESYREL) 150 mg tablet exenatide ER microspheres (Bydureon BCise) 2 mg/0.85 mL auto-injector famotidine (PEPCID) 40 mg tablet sodium, potassium & mag sulfates (SUPREP BOWEL KIT) 17.5-3.13-1.6 gram recon soln phentermine 37.5 mg capsule tranexamic acid (LYSTEDA) 650 mg tablet Review of Systems Constitutional: Negative for chills and fever. HENT: Negative for mouth sores and sore throat. Eyes: Negative for pain and redness. Respiratory: Negative for cough and shortness of breath. Cardiovascular: Negative for chest pain and palpitations. Gastrointestinal: See HPI Endocrine: Negative for cold intolerance and heat intolerance. Musculoskeletal: Negative for arthralgias and back pain. Skin: Negative for color change and rash. Neurological: Negative for dizziness and light-headedness. Hematological: Negative for adenopathy. Does not bruise/bleed easily. Blood pressure 107/71, pulse 71, height 162.6 cm (5' 4.02 ), weight 127 kg (280 lb). Body mass index is 48.04 kg/m??. Physical Exam Vitals reviewed. Constitutional: General: She is not in acute distress. HENT: Mouth/Throat: Mouth: Mucous membranes are moist. Pharynx: No oropharyngeal exudate. Eyes: Extraocular Movements: Extraocular movements intact. Conjunctiva/sclera: Conjunctivae normal. Cardiovascular: Rate and Rhythm: Normal rate and regular rhythm. Pulmonary: Effort: Pulmonary effort is normal. Breath sounds: Normal breath sounds. Abdominal: General: Bowel sounds are normal. There is no distension. Palpations: Abdomen is soft. There is no mass. Tenderness: There is no abdominal tenderness. There is no guarding or rebound. Skin: General: Skin is warm and dry. Neurological: General: No focal deficit present. Mental Status: She is alert and oriented to person, place, and time. Psychiatric: Mood and Affect: Mood normal. Behavior: Behavior normal. LABS Lab Results Component Value Date ALT 10 07/11/2022 AST 14 07/11/2022 ALKPHOS 90 07/11/2022 BILITOT 0.3 07/11/2022 Lab Results Component Value Date AMYLASE 33 04/12/2022 Lab Results Component Value Date WBC 9.6 07/11/2022 HGB 14.5 07/11/2022 HCT 43.4 07/11/2022 MCV 84.4 07/11/2022 Chemistry Component Value Date/Time SODIUM 139 07/11/2022 1850 POTASSIUM 3.9 07/11/2022 1850 CHLORIDE 104 07/11/2022 1850 CO2 25 07/11/2022 1850 BUNSER 7 (L) 07/11/2022 185 CREATININE 0.60 07/11/2022 1850 GLUCOSE 96 07/11/2022 1850 Component Value Date/Time CALCIUM 9.2 07/11/2022 1850 ALKPHOS 90 07/11/2022 1850 AST 14 07/11/2022 1850 ALT 10 07/11/2022 1850 BILITOT 0.3 07/11/2022 1850 Assessment/Plan Diagnoses and all orders for this visit: Upper abdominal pain (Primary) Assessment & Plan: Upper abdominal pain, intermittent, describes it as [...] understands and consents to having procedure done. Orders: - Ambulatory referral to Gastroenterology - Case Request Operating Room: ESOPHAGOGASTRODUODENOSCOPY, COLONOSCOPY - US Abdomen Complete; Future Nausea Assessment & Plan: Chronic nausea and vomiting, not improved with PPI or Zofran. -we will order ultrasound as above -EGD as above Orders: - Ambulatory referral to Gastroenterology - Case Request Operating Room: ESOPHAGOGASTRODUODENOSCOPY, COLONOSCOPY - US Abdomen Complete; Future Gastroesophageal reflux disease without esophagitis Assessment & Plan: Chronic GERD for over 10 years, was [...] head of the bed, and weight loss Orders: - Case Request Operating Room: ESOPHAGOGASTRODUODENOSCOPY, COLONOSCOPY - famotidine (PEPCID) 40 mg tablet; Take 1 tablet (40 mg total) by mouth nightly as needed for heartburn Diarrhea, unspecified type Assessment & Plan: Chronic diarrhea, alternates with constipation. -we will order stool studies further evaluation -schedule colonoscopy -The risks (risks of bleeding, infection, perforation requiring surgery, missed polyps/cancer, dental injury, aspiration pneumonia, anesthesia complications such as drug reaction and cardiopulmonary complications including rare chance of ), benefits, and alternatives of the planned procedure were explained to the patient who understands and consents to having procedure done. Orders: - sodium, potassium & mag sulfates (SUPREP BOWEL KIT) 17.5-3.13-1.6 gram recon soln; Take 360 mL by mouth once for 1 dose Take 180 mL by mouth daily for 2 days Mix 1 bottle with water and take at6:00 the day prior to procedure. Drink 2nd bottle 4 hours prior to arrival. - Case Request Operating Room: ESOPHAGOGASTRODUODENOSCOPY, COLONOSCOPY - Stool culture Stool Rectum; Future - Ova and parasite examination Stool; Future - Cryptosporidium and giardia antigen assay Stool; Future - C. difficile testing Stool; Future - LACTOFERRIN,QL,STOOL; Future Constipation, unspecified constipation type Assessment & Plan: Worsening constipation over the past few years. -high-fiber diet -MiraLax OTC daily p.r.n. Return in about 3 months (around 11/21/2022). Cj Thomas MD Voice recognition software ([employer]) was used to complete this document. Despite proofreading, forest manager variances and typographical errors may occur. documented in this encounter Miscellaneous Notes * Assessment & Plan Note - Cj Thomas MD - 08/21/2022 8:42 AM CDTAssociated Problem(s): Gastroesophageal reflux disease without esophagitis Chronic GERD for over 10 years, was [...] head of the bed, and weight loss * Assessment & Plan Note - Cj Thomas MD - 08/21/2022 8:41 AM CDTAssociated Problem(s): Constipation Worsening constipation over the past few years. -high-fiber diet -MiraLax OTC daily p.r.n. * Assessment & Plan Note - Cj Thomas MD - 08/21/2022 8:41 AM CDTAssociated Problem(s): Diarrhea Chronic diarrhea, alternates with constipation. -we will order stool studies further evaluation -schedule colonoscopy -The risks (risks of bleeding, infection, perforation requiring surgery, missed polyps/cancer, dental injury, aspiration pneumonia, anesthesia complications such as drug reaction and cardiopulmonary complications including rare chance of ), benefits, and alternatives of the planned procedure were explained to the patient who understands and consents to having procedure done. * Assessment & Plan Note - Cj Thomas MD - 08/21/2022 8:41 AM CDTAssociated Problem(s): Nausea Chronic nausea and vomiting, not improved with PPI or Zofran. -we will order ultrasound as above -EGD as above * Assessment & Plan Note - Cj Thomas MD - 08/21/2022 8:38 AM CDTAssociated Problem(s): Upper abdominal pain (Resolved 12/11/2022) Upper abdominal pain, intermittent, describes it as [...] having procedure done. documented in this encounter Plan of Treatment Scheduled Orders Name Type Priority Associated Diagnoses Orde r Schedule Cryptosporidium and giardia antigen assay Stool Microbiology Routine Diarrhea, unspecified type Expected: 08/21/2022, Expires: 08/22/2023 documented as of this encounter Results * Lactoferrin, Fecal (01/07/2023 12:09 PM CDT) Lactoferrin, fecal Negative Negative FRAN Stool 01/07/2023 12:0 9 PM CDT 01/07/2023 1:48 PM CDT us Cj Thomas MD LAB BODY FLUIDS AND STOOLS ORDER DAVIN Final Result Performing Organization Address [facility] de Phone Number FRAN [address] [address] * C. difficile testing Stool (01/07/2023 12:09 PM CDT) Pathologist [facility] C. diff result Negative, DNA Negative , DNA [facility] C. diff interp Negative for toxigenic [...] ORDER DAVIN Final Result Performing Organization Address [facility] de Phone Number FRAN [address] [address] * (ABNORMAL) Stool culture Stool Rectum (01/07/2023 12:09 PM CDT) [facility] Direct Specimen Exam Shiga Toxin Testing: Antigen detection assay for Shiga-toxin NEGATIVE for Shiga Toxin 1 and Shiga Toxin 2. 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 No growth of enteric bacterial pathogens (.) FRAN Comment:Testing performed by : [facility], [address] [place]., [address] Organism ENTEROCOCCUS FAECIUM FRAN Stool (Rectum) 01/07/2023 12 :09 PM CDT 01/07/2023 5:58 PM CDT Narrative FRAN - 01/11/2023 6:10 PM CDT received in [facility] Testing performed by [facility] Laboratory ([phone]). Routine stool cultures include procedures to detect Salmonella, Shigella, Edwardsiella, Aeromonas, Pleisiomonas, Campylobacter, Yersinia, E. coli O157, and Shiga-like toxins. ?? Vibrio is cultured only upon special request. ??If Vibrio is suspected, please call the laboratory at [phone]. Interpretive data was last updated October 01, 2016. Cj Thomas MD LAB MICROBIOLOGY - GENERAL ORDER DAVIN Final Result FRAN [address] [facility] Department [place] [address] documented in this encounter Visit Diagnoses Diagnosis Upper abdominal pain- Primary Nausea Nausea alone Gastroesophageal reflux disease without esophagitis Esophageal reflux Diarrhea, unspecified type Constipation, unspecified constipation type Diarrhea, unspecified type documented in this encounter Discontinued Medications Medication Sig Discontinue Reason Start Date End Da te phentermine 37.5 mg capsule Take 1 capsule (37.5 mg total) by mouth daily Therapy completed 02/23/2022 08/21/2022 tranexamic acid (LYSTEDA) 650 mg tablet Take 1,300 mg by mouth 3 (three) times a day Therapy completed 07/12/2022 08/21/2022 documented as of this encounter Orders Outpatient Referral Count Last Ordered Date Fir st Ordered Date AMB REFERRAL TO GASTROENTEROLOGY 1 08/22/19 Case Request Count Last Ordered Date First Orde red Date CASE REQUEST OPERATING ROOM 1 08/21/2022 documented in this encounter Care Teams Dean Relationship Specialty Start Date End Date Lorie Vanessa NP [address] [place] [id number] PCP - General Family Practice 05/29/22 No, Physician 06/08/21 documented as of this encounter
--- OUTSIDE RECORDS SUMMARY | 2024-06-06 00:35 | XMS_ITS | Encounter Summary ---
Author Organization [facility] Address [address] [place] [address] Care Team Providers Care Public Improvement Inspector Name Role Phone No, Physician Unavailable Lorie Vanessa NP Primary Care Provider [phone] Encounter Details Date Type Department Care Team (Late st Contact Info) Description 08/23/2022 Documentation [facility] Gastroenterology at [address] [place] [address] Cj Thomas MD [address] [place] [address] [address] [place], [place] [id number] Social History Tobacco Use Types Packs/Day Years Used Date Smoking Tobacco: Never PHQ-2 Answer Date Recorded PHQ-2 Total Score (If total score is 3 or more points, staff should administer the PHQ-9) 0 04/12/2022 Comments No Sex and Gender Information Value Date Recorded Sex Assigned at Not on file Legal Sex Female 6:55 PM IRON MINER Gender Identity Female 06/06/2022 7:40 AM IRON MINER Sexual Orientation Not on file documented as of this encounter Progress Notes * Cj Thomas MD - 08/23/2022 12:15 PM CDT Received prior EGD and colonoscopy records from Dr. Guzman, patient underwent EGD and colonoscopy on August 20, 2018. EGD notable for antral gastritis, colonoscopy to terminal ileum with internal hemorrhoids status post banding, otherwise unremarkable. Pathology negative for H pylori, negative for celiac disease, terminal ileum and colon biopsies were unremarkable. documented in this encounter Plan of Treatment Not on file documented as of this encounter Visit Diagnoses Not on filedocumented in this encounter Care Teams Public Improvement Inspector Relationship Specialty Start Date End Date Lorie Vanessa NP [address] [place] [id number] PCP - General Family Practice 05/29/22 No, Physician 06/08/21 documented as of this encounter
--- OUTSIDE RECORDS SUMMARY | 2024-06-06 00:35 | XMS_ITS | Encounter Summary ---
Author Organization [facility] Healthcare Address [address] [place] [address] Care Team Providers Care Hardwood Sawyer Name Role Phone No, Physician Unavailable Lorie Vanessa NP Primary Care Provider [phone] Reason for Referral * Diagnostic Imaging (Routine) - Closed Specialty Diagnoses / Procedures Referred By Contac t Referred To Contact Diagnoses Acute foot pain, left Procedures XR Foot Left 3+ Vw Lorie Vanessa NP [address] [place] [address] Phone: tel: fax: [address] [phone] Referral ID Status Reason Start Date Expiration Date Visits Re quested Visits Authorized [id number] Closed 09/03/2022 10/03/2023 1 1 * Diagnostic Imaging (Routine) - Closed Specialty Diagnoses / Procedures Referred By Contac t Referred To Contact Diagnoses Acute pain of left knee Procedures XR Knee Left 1 Or 2 Vw Lorie Vanessa NP [address] [place] [address] Phone: tel: fax: [address] [phone] Referral ID Status Reason Start Date Expiration Date Visits Re quested Visits Authorized [id number] Closed 09/03/2022 10/03/2023 1 1 * Diagnostic Imaging (Routine) - Closed Specialty Diagnoses / Procedures Referred By Contac t Referred To Contact Diagnoses Acute hip pain, left Procedures XR Hip Left 2+ Vw Lorie Vanessa NP [facility] [address] [address] Phone: tel: fax: [address] [phone] Referral ID Status Reason Start Date Expiration Date Visits Re quested Visits Authorized [id number] Closed 09/03/2022 10/03/2023 1 1 * Diagnostic Imaging (Routine) - Closed Specialty Diagnoses / Procedures Referred By Contac t Referred To Contact Diagnoses Acute left-sided low back pain without sciatica Procedures XR Spine Lumbar 2 Or 3 Vw Lorie Vanessa DRY WALL SPRAYER [address] [place] [address] Phone: tel: fax: [address] [phone] Referral ID Status Reason Start Date Expiration Date Visits Re quested Visits Authorized [id number] Closed 09/03/2022 10/03/2023 1 1 * Diagnostic Imaging (Routine) - Closed Specialty Diagnoses / Procedures Referred By Contac t Referred To Contact Diagnoses Left elbow pain Procedures XR Elbow Left 3+ Vw Lorie Vanessa NP [address] [place] [address] Phone: tel: fax: [address] [phone] Referral ID Status Reason Start Date Expiration Date Visits Re quested Visits Authorized [id number] Closed 09/03/2022 10/03/2023 1 1 * Diagnostic Imaging (Routine) - Closed Specialty Diagnoses / Procedures Referred By Contac t Referred To Contact Diagnoses Acute pain of left shoulder Procedures XR Shoulder Left 2+ Vw Lorie Vanessa NP [address] [place] [address] Phone: tel: fax: [address] [phone] Referral ID Status Reason Start Date Expiration Date Visits Re quested Visits Authorized [id number] Closed 09/03/2022 10/03/2023 1 1 Reason for Visit * Diagnostic Imaging (Routine) - Closed Specialty Diagnoses / Procedures Referred By Contac t Referred To Contact Diagnoses Acute pain of left shoulder Procedures XR Shoulder Left 2+ Vw Lorie Vanessa NP [address] [place] [address] Phone: tel: fax: [address] [phone] Referral ID Status Reason Start Date Expiration Date Visits Re quested Visits Authorized [id number] Closed 09/03/2022 10/03/2023 1 1 Encounter Details Date Type Department Care Team (Latest Contact Info) Description 09/03/2022 11:34 AM CDT - 09/03/2022 11:59 PM CDT Hospital Encounter [facility] MOB 1 DIAG IMG [address] [place] [id number] Acute pain of left shoulder; Left elbow pain; Acute left-sided low back pain without sciatica; Acute hip pain, left; Acute pain of left knee; Acute foot pain, left Discharge Disposition: Discharge to home or self care Social History Tobacco Use Types Packs/Day Years Used Date Smoking Tobacco: Never PHQ-2 Answer Date Recorded PHQ-2 Total Score (If total score is 3 or more points, staff should administer the PHQ-9) 0 04/12/2022 Comments No Sex and Gender Information Value Date Recorded Sex Assigned at Not on file Legal Sex Female 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 * Result Encounter Note - Lorie Vanessa NP - 09/03/2022 11:59 PM CDT Xray left knee not resulted, please contact radiology for addendum. 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 * Result Encounter Note - Lorie Vanessa NP - 09/03/2022 11:59 PM CDT No fractures to left elbow with normal alignment and joint spaces. * Result Encounter Note - Lorie Vanessa NP - 09/03/2022 11:59 PM CDT No fractures noted to left shoulder with normal alignment and glenohumeral/acromioclavicular are normal. * Result Encounter Note - Lorie Vanessa NP - 09/03/2022 11:59 PM CDT Mild L1-L2 DDD, no fractures and alignment is normal. documented in this encounter Plan of Treatment Not on file documented as of this encounter Procedures Procedure Name Priority Date/Time Associated Diagnosis Comments XR FOOT LEFT 3 OR MORE VIEWS Schedule Routine, Read Routine (OP Routine) 09/03/2022 11:54 AM CDT Acute foot pain, left XR KNEE LEFT 1 OR 2 VIEWS Schedule Routine, Read Routine (OP Routine) 09/03/2022 11:54 AM CDT Acute pain of left knee XR HIP LEFT 2 OR 3 VIEWS Schedule Routine, Read Routine (OP Routine) 09/03/2022 11:54 AM CDT Acute hip pain, left XR ELBOW LEFT 3 OR MORE VIEWS Schedule Routine, Read Routine (OP Routine) 09/03/2022 11:54 AM CDT Left elbow pain XR SHOULDER LEFT 2 OR MORE VIEWS Schedule Routine, Read Routine (OP Routine) 09/03/2022 11:54 AM CDT Acute pain of left shoulder XR SPINE LUMBAR 2 OR 3 VIEWS Schedule Routine, Read Routine (OP Routine) 09/03/2022 11:54 AM CDT Acute left-sided low back pain without sciatica documented in this encounter Results * XR Foot Left [...] AM T: ??09/04/2022 8:15 AM Report ID: [id number] Reading Location: ??[id number] Procedure Note Segundo Curry MD - 09/04/2022 [...] hallux valgus on this nonweightbearing exam with [id number] metatarsophalangeal joint osteoarthritis. THIS IS AN ELECTRONICALLY VERIFIED FINAL REPORT 09/04/2022 8:15 AM - Electronically signed by Segundo Curry M.D. MF: DAISY Report ID: [id number] Reading Location: [id number] Lorie Vanessa NP IMG XR PROCEDURES Final [...] AM T: ??09/04/2022 8:15 AM Report ID: [id number] Reading Location: ??[id number] Procedure Note Segundo Curry MD - 09/04/2022 [...] hallux valgus on this nonweightbearing exam with [id number] metatarsophalangeal joint osteoarthritis. THIS IS AN ELECTRONICALLY VERIFIED FINAL REPORT 09/04/2022 8:15 AM - Electronically signed by Segundo Curry M.D. MF: DAISY Report ID: [id number] Reading Location: [id number] Lorie Vanessa NP IMG XR PROCEDURES Final Result * XR Hip Left 2+ Vw (09/03/2022 11:54 AM CDT) Anatomical Region Laterality Modality Lower Extremities, Hip, Pelvis Left C omputed Radiography 09/04/2022 7:4 7 AM CDT Narrative 09/04/2022 8:15 AM CDT [...] Electronically signed by ??Segundo Curry M.D. MF: DAIYS D: ??09/04/2022 8:15 AM T: ??09/04/2022 8:15 AM Report ID: [id number] Reading Location: ??[id number] Procedure Note Segundo Curry MD - 09/04/2022 [...] hallux valgus on this nonweightbearing exam with [id number] metatarsophalangeal joint osteoarthritis. THIS IS AN ELECTRONICALLY VERIFIED FINAL REPORT 09/04/2022 8:15 AM - Electronically signed by Segundo Curry M.D. MF: DAISY Report ID: [id number] Reading Location: [id number] Lorie Vanessa NP IMG XR PROCEDURES Final [...] AM T: ??09/04/2022 8:15 AM Report ID: [id number] Reading Location: ??[id number] Procedure Note Segundo Curry MD - 09/04/2022 [...] hallux valgus on this nonweightbearing exam with [id number] metatarsophalangeal joint osteoarthritis. THIS IS AN ELECTRONICALLY VERIFIED FINAL REPORT 09/04/2022 8:15 AM - Electronically signed by Segundo Curry M.D. MF: DAISY Report ID: [id number] Reading Location: [id number] Lorie Vanessa NP IMG XR PROCEDURES Final [...] AM T: ??09/04/2022 8:15 AM Report ID: [id number] Reading Location: ??[id number] Procedure Note Segundo Curry MD - 09/04/2022 [...] hallux valgus on this nonweightbearing exam with [id number] metatarsophalangeal joint osteoarthritis. THIS IS AN ELECTRONICALLY VERIFIED FINAL REPORT 09/04/2022 8:15 AM - Electronically signed by Segundo Curry M.D. MF: DAISY Report ID: [id number] Reading Location: [place] [id number] Lorie Vanessa DRY WALL SPRAYER IMG XR PROCEDURES Final Result * XR [...] AM T: ??09/04/2022 8:15 AM Report ID: [id number] Reading Location: ??[id number] Procedure Note Segundo Curry MD - 09/04/2022 [...] hallux valgus on this nonweightbearing exam with choz4ci metatarsophalangeal joint osteoarthritis. THIS IS AN ELECTRONICALLY VERIFIED FINAL REPORT 09/04/2022 8:15 AM - Electronically signed by Segundo VILLA: DAISY Report ID: [id number] Reading Location: [id number] Lorie Vanessa NP IMG XR PROCEDURES Final Result documented in this encounter Visit Diagnoses Diagnosis Acute pain of left shoulder Left elbow pain Pain in joint, upper arm Acute left-sided low back pain without sciatica Acute hip pain, left Acute pain of left knee Acute foot pain, left documented in this encounter Care Teams Hardwood Sawyer Relationship Specialty Start Date End Date Lorie Vanessa, DRY WALL SPRAYER [address] [place] [address] PCP - General Family Practice 05/29/22 No, Physician 06/08/21 documented as of this encounter
--- OUTSIDE RECORDS SUMMARY | 2024-06-06 00:35 | XMS_ITS | Encounter Summary ---
Author Organization [facility] Healthcare Address [address] [place] [address] Care Team Providers Care Supervisor Type Photography Name Role Phone No, Physician Unavailable Lorie Vanessa NP Primary Care Provider [phone] Reason for Referral * Cardiology (Routine) - Closed Specialty Diagnoses / Procedures Referred By Cyn burnett Referred To Contact Diagnoses Orthostatic hypotension Dizziness Tachycardia, unspecified GALEANO (dyspnea on exertion) Family history of CHF (congestive heart failure) Procedures Transthoracic Echo (TTE) Complete W Doppler/CF Laurent Bueno MD Phone: tel: fax: [address] [phone] Referral ID Status Reason Start Date Expiration Date Visits Re quested Visits Authorized [id number] Closed 07/13/2022 08/12/2023 1 1 Reason for Visit * Cardiology (Routine) - Closed Specialty Diagnoses / Procedures Referred By Cyn burnett Referred To Contact Diagnoses Orthostatic hypotension Dizziness Tachycardia, unspecified GALEANO (dyspnea on exertion) Family history of CHF (congestive heart failure) Procedures Transthoracic Echo (TTE) Complete W Doppler/CF Laurent Bueno MD Phone: tel: fax: [facility] [address] [place] [address] Referral ID Status Reason Start Date Expiration Date Visits Re quested Visits Authorized [id number] Closed 07/13/2022 08/12/2023 1 1 Encounter Details Date Type Department Care Team (Latest Contact Info) Description 08/06/2022 1:04 PM CDT - 08/06/2022 11:59 PM CDT Hospital Encounter [facility] OP Cardiac Testing [address] [place] [address] Orthostatic hypotension; Dizziness; Tachycardia, unspecified; GALEANO (dyspnea [...] on file 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 Gender Identity Female 06/06/2022 7:40 AM HEALTH CLUB ATTENDANT Sexual Orientation Not on file documented as [...] shortness of breath 1 each 1 04/12/2022 exenatide ER microspheres (Bydureon BCise) 2 mg/0.85 [...] Procedure Name Priority Date/Time Associated Diagnosis Comments TRANSTHORACIC ECHO (TTE) COMPLETE W DOPPLER/CF WO CONTRAST Routine 08/06/2022 1:15 PM CDT Orthostatic hypotension Dizziness Tachycardia, unspecified GALEANO (dyspnea on exertion) Family history of CHF (congestive heart failure) documented in this encounter Results * TRANSTHORACIC ECHO (TTE) COMPLETE W DOPPLER/CF WO CONTRAST (08/06/2022 1:15 PM CDT) Anatomical Region Laterality Modality Ultrasound 08/06/2022 1:15 PM CDT Narrative 08/08/2022 4:26 PM CDT ? Adult Echocardiogram + ----- -------+ :Name: LESLIE CERVANTESRICIA Grace ??Study Date: 08/06/2022 ?Status: MHB ?: : ?Patient Location: [id number] CRDT^^^MHBHeight: 64 in ?: : ?Weight: 272 lbBP: 120/82 mmHg: :: 1995 ? Gender: Female ?BSA: 2.2 m2 ?: :Reason For Study: GALEANO, Tachycardia, Orthostatic Hypotension ?: :Ordering Physician: ?: :MYLES^LAURENT ? : :Referring Physician: ? : :MYLES, LAURENT ?: :Performed By: Luz Maria ?: :Reynoso, RDCS ?: + ----- -------+ Procedure A two-dimensional transthoracic echocardiogram with color flow and Doppler was performed. Left Ventricle The left ventricle is grossly normal size. There is normal left ventricular wall thickness. Left ventricular systolic function is normal. Ejection Fraction = 60-65%. No obvious regional wall motion abnormalities noted. Right Ventricle The right ventricle is normal size. The right ventricular systolic function is normal. Atria The left atrial size is normal. Right atrial size is normal. There is no Doppler evidence for an atrial septal defect. Mitral Valve The mitral valve leaflets appear normal. There is no evidence of stenosis, fluttering, or prolapse. There is no mitral valve stenosis. There is trace mitral regurgitation. Tricuspid Valve The tricuspid valve is normal. There is no tricuspid stenosis. There is trace tricuspid regurgitation. Right ventricular systolic pressure is '28' mm/HG. Aortic Valve Aortic valve structure is normal. No aortic stenosis . Trace aortic regurgitation. Pulmonic Valve The pulmonic valve is not well seen, but is grossly normal. There is no pulmonic valvular stenosis. Trace pulmonic valvular regurgitation. Great Vessels The aortic root is normal size. IVC appears normal in size. Diastology E/E prime ratio is <8 suggesting normal pulmonary wedge pressure and no LV diastolic dysfunction. Interpretation Summary Ejection Fraction = 60-65%. The right ventricular systolic function is normal. E/E prime ratio is <8 suggesting normal pulmonary wedge pressure and no LV diastolic dysfunction. + + :Measurements with Normals ?: :IVSd: ?(0.6-1.2 ?? LVIDd: ?(3.5-5.7 ?? Ao root diam: ?(2.0-3.7 ?? : :0.87 cm ?cm) ?5.3 cm ?cm) ?3.3 cm ? cm) ?: :LVPWd: ? (0.6-1.1 ?? LVIDs: ?(3.1-4.6 ?? LA dimension: ?(1.9-4.0 ?? : :0.82 cm ?cm) ?3.2 cm ?cm) ?3.6 cm ? cm) ?: + + MMode/2D Measurements & Calculations FS: 39.8 % ?LVOT diam: 2.1 cm EDV(Teich): 133.6 ml ? Ao root area: 8.6 cm2 ESV(Teich): 40.0 ml ? LVOT area: 3.5 cm2 Doppler Measurements & Calculations MV E max tha: ? MV dec time: ? Ao V2 max: ? LV V1 max P.5 cm/sec ? 0.25 sec ? 143.0 cm/sec ? 3.7 mmHg MV A max tha: ?Ao max P.2 mmHgLV V1 max: 52.9 cm/sec ?KELSEY(V,D): 2.3 cm2 ??96.5 cm/sec MV E/A: 1.5 ? TV V2 max: ?PA V2 max: ? RV V1 max: ? TR max tha: 63.5 cm/sec ? 116.0 cm/sec ? 71.1 cm/sec ?249.0 cm/sec TV max P.6 mmHg PA max P.4 mmHg ? TR max PG: ?24.8 mmHg ?RVSP(TR): 27.8 mmHg ? RAP systole: 3.0 mmHg Electronically signed by: Laurent Bueno MD 08/08/2022 04:26 PM Procedure Note Laurent Bueno MD - 08/08/2022 Adult Echocardiogram + ----- -------+ :Name: TERESA CERVANTES Study Date: 08/06/2022 Status: MHB: : Patient Location: [address]^MHBHeight: 64in : : Weight: 272lbBP: 120/82 mmHg: :: 1995 Gender: Female BSA: 2.2 m2: :Reason For Study: GALEANO, Tachycardia, Orthostatic Hypotension: :Ordering Physician:: :HALI: :Referring Physician:: :LAURENT BUENO: :Performed By: Luz Maria: :BRANDON Reynoso: + ----- -------+ Procedure A two-dimensional transthoracic echocardiogram with color flow and Dopplerwas performed. Left Ventricle The left ventricle is grossly normal size. There is normal leftventricular wall thickness. Left ventricular systolic function is normal. Ejection Fraction = 60-65%. No obvious regional wall motion abnormalities noted. Right Ventricle The right ventricle is normal size. The right ventricular systolicfunction is normal. Atria The left atrial size is normal. Right atrial size is normal. There is no Doppler evidence for an atrial septal defect. Mitral Valve The mitral valve leaflets appear normal. There is no evidence ofstenosis, fluttering, or prolapse. There is no mitral valve stenosis. There istrace mitral regurgitation. Tricuspid Valve The tricuspid valve is normal. There is no tricuspid stenosis. There istrace tricuspid regurgitation. Right ventricular systolic pressure is '28'mm/HG. Aortic Valve Aortic valve structure is normal. No aortic stenosis . Trace aortic regurgitation. Pulmonic Valve The pulmonic valve is not well seen, but is grossly normal. There is no pulmonic valvular stenosis. Trace pulmonic valvular regurgitation. Great Vessels The aortic root is normal size. IVC appears normal in size. Diastology E/E prime ratio is <8 suggesting normal pulmonary wedge pressure and noLV diastolic dysfunction. Interpretation Summary Ejection Fraction = 60-65%. The right ventricular systolic function is normal. E/E prime ratio is <8 suggesting normal pulmonary wedge pressure and noLV diastolic dysfunction. + + :Measurements with Normals: :IVSd: (0.6-1.2 LVIDd: (3.5-5.7 Ao root diam:(2.0-3.7 : :0.87 cm cm) 5.3 cm cm) 3.3 cm cm): :LVPWd: (0.6-1.1 LVIDs: (3.1-4.6 LA dimension:(1.9-4.0 : :0.82 cm cm) 3.2 cm cm) 3.6 cm cm): + + MMode/2D Measurements & Calculations FS: 39.8 % LVOT diam: 2.1 cm EDV(Teich): 133.6 ml Ao root area: 8.6 cm2 ESV(Teich): 40.0 ml LVOT area: 3.5 cm2 Doppler Measurements & Calculations MV E max tha: MV dec time: Ao V2 max: LV V1 max P.5 cm/sec 0.25 sec 143.0 cm/sec 3.7 mmHg MV A max tha: Ao max P.2 mmHgLV V1 max: 52.9 cm/sec KELSEY(V,D): 2.3 cm2 96.5 cm/sec MV E/A: 1.5 TV V2 max: PA V2 max: RV V1 max: TR max tha: 63.5 cm/sec 116.0 cm/sec 71.1 cm/sec 249.0 cm/sec TV max P.6 mmHg PA max P.4 mmHg TR max P.8 mmHg RVSP(TR): 27.8mmHg RAP systole: 3.0 mmHg Electronically signed by: Laurent Bueno MD 08/08/2022 04:26 PM us Laurent Bueno MD CV ECHO PROCEDURES Final Result documented in this encounter Visit Diagnoses Diagnosis Orthostatic hypotension Dizziness Dizziness and giddiness Tachycardia, unspecified GALEANO (dyspnea on exertion) Other dyspnea and respiratory abnormality Family history of CHF (congestive heart failure) Family history of other cardiovascular diseases documented in this encounter Care Teams Supervisor Type Photography Relationship Specialty Start Date End Date Lorie Vanessa NP [address] [place] [address] PCP - General Family Practice 05/29/22 No, Physician 06/08/21 documented as of this encounter
--- OUTSIDE RECORDS SUMMARY | 2024-06-06 00:36 | XMS_ITS | Encounter Summary ---
Author Organization [facility] Healthcare Address [address] [place] [address] Care Team Providers Care Barrel Filler Head Name Role Phone No, Physician Unavailable Lorie Vanessa NP Primary Care Provider [phone] Encounter Details Date Type Department Care Team (Late st Contact Info) Description 07/07/2022 Patient Self-Triage [facility] HealthCare/ Physicians [address] [place] [address] Mychart, Generic Provider [address] [place] [address] Social History Tobacco Use Types Packs/Day Years Used Date Smoking Tobacco: Never PHQ-2 Answer Date Recorded PHQ-2 Total Score (If total score is 3 or more points, staff should administer the PHQ-9) 0 04/12/2022 Comments No Sex and Gender Information Value Date Recorded Sex Assigned at Not on file Legal 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
--- OUTSIDE RECORDS SUMMARY | 2024-06-06 00:36 | XMS_ITS | Encounter Summary ---
Author Organization [facility] Address [address] [place] [address] Care Team Providers Care Corporate Specialist Name Role Phone No, Physician Unavailable Lorie Vanessa NP Primary Care Provider [phone] Reason for Visit * Cardiology (Routine) - Closed Specialty Diagnoses / Procedures Referred By Cyn burnett Referred To Contact Diagnoses Dizziness Tachycardia, unspecified GALEANO (dyspnea on exertion) Procedures Extended/[facility] Holter Patch (>48 hours up to 7 days) Nile Prasad MD Phone: tel: fax: [facility] Referral ID Status Reason Start Date Expiration Date Visits Re quested Visits Authorized [id number] Closed 07/13/2022 08/12/2023 1 1 Encounter Details Date Type Department Care Team (Latest Contact Info) Description 07/13/2022 10:30 AM TERMITE TREATER HELPER Ancillary Procedure [facility] Medical [facility] Cardiology [address] [address] Dizziness; Tachycardia, unspecified; GALEANO (dyspnea on exertion) Social History Tobacco Use Types Packs/Day Years Used Date Smoking Tobacco: Never PHQ-2 Answer Date Recorded PHQ-2 Total Score (If total score is 3 or more points, staff should administer the PHQ-9) 0 04/12/2022 Comments No Sex and Gender Information Value Date Recorded Sex Assigned at Not on file Legal Sex Female 6:55 PM TERMITE TREATER HELPER Gender Identity Female 06/06/2022 7:40 AM TERMITE TREATER HELPER Sexual Orientation Not on file documented as of this encounter Plan of Treatment Not on file documented as of this encounter Procedures Procedure Name Priority Date/Time Associated Diagnosis Comments EXTENDED/FCI HOLTER PATCH (>48 HOURS UP TO 7 DAYS) Routine 07/17/2022 2:43 PM TERMITE TREATER HELPER Dizziness Tachycardia, unspecified GALEANO (dyspnea on exertion) documented in this encounter Results * Extended/[facility] Holter Patch (>48 hours up to 7 days) (07/17/2022 2:43 PM TERMITE TREATER HELPER) Anatomical Region Laterality Modality Electrocardiogra phy Narrative 09/16/2022 4:30 PM CDT Cardiac Rhythm Monitor Monitor duration: ??7 days Clinical indication: ??Dizziness, tachycardia, palpitations, dyspnea Study Description: Minimum heart rate 53 bpm. ??Average heart rate 89 bpm. ??Maximum heart rate 172 bpm. PAC: ??47 PACs noted with burden less than 0.01% PVC: ??7 PVCs noted with burden less than 0.01% Atrial fibrillation: ??None noted Symptom triggered events: ??Symptom triggered events correlated with sinus rhythm with heart rates between 85-136 beats per minute Conclusions: Predominantly sinus rhythm with average heart rate of 89 bpm (range 53-172 bpm) PAC and PVC burden less than 1% No atrial fibrillation, atrial flutter, runs of atrial or ventricular ectopics or clinically significant pauses noted Symptom triggered events correlated with sinus rhythm with heart rates between 85-136 beats per minute us Nile Prasad MD CV CARDIAC SERVICES PROCEDURES F inal Result documented in this encounter Visit Diagnoses Diagnosis Dizziness Dizziness and giddiness Tachycardia, unspecified GALEANO (dyspnea on exertion) Other dyspnea and respiratory abnormality documented in this encounter Care Teams Corporate Specialist Relationship Specialty Start Date End Date Lorie Vanessa NP [address] [place] [address] PCP - General Family Practice 05/29/22 No, Physician 06/08/21 documented as of this encounter
--- OUTSIDE RECORDS SUMMARY | 2024-06-06 00:36 | XMS_ITS | Encounter Summary ---
Author Organization [facility] Address [address] [place] [address] Care Team Providers Care Pump Station Operator Name Role Phone No, Physician Unavailable Lorie Vanessa NP Primary Care Provider [phone] Reason for Referral * Consultation (Routine) - Closed Specialty Diagnoses / Procedures Referred By Cyn burnett Referred To Contact Immunology / Allergy and Immunology Diagnoses Frequent infections Lorie Vanessa NP [address] [address] Phone: tel: fax: [facility] All[facility] Immun[facility] [facility] [address] [place] [address] Phone: tel: fax: Referral ID Status Reason Start Date Expiration Date V isits Requested Visits Authorized [id number] Closed Specialty Services Required 07/04/2022 08/03/2023 12 12 Question Answer Please select the performing region: [facility] (All Locations) [167] # of visits: 1 SACTION ADVISORY SERVICES MANAGER Encounter Details Date Type Department Care Team (Late st Contact Info) Description 07/04/2022 Telephone [facility] Primary [facility] at [place] [address] [place] [address] Lorie Vanessa NP [address] [id number] Social History Tobacco Use Types Packs/Day Years Used Date Smoking Tobacco: Never PHQ-2 Answer Date Recorded PHQ-2 Total Score (If total score is 3 or more points, staff should administer the PHQ-9) 0 04/12/2022 Comments No Sex and Gender Information Value Date Recorded Sex Assigned at Not on file Legal Sex Female 6:55 PM TRANSACTION ADVISORY SERVICES MANAGER Gender Identity Female 06/06/2022 7:40 AM TRANSACTION ADVISORY SERVICES MANAGER Sexual Orientation Not on file documented as of this encounter Miscellaneous Notes * Telephone Encounter - Shilo Michael MA - 07/05/2022 8:23 AM CST [employer] message sent to pt. SACTION ADVISORY SERVICES MANAGER * Telephone Encounter - Lorie Vanessa NP - 07/04/2022 5:41 PM CST Referral made to immunology. SACTION ADVISORY SERVICES MANAGER * Telephone Encounter - Lorie Vanessa NP - 07/04/2022 5:39 PM CST ----- Message from Shilo Michael MA sent at 07/04/2022 10:50 AM TRANSACTION ADVISORY SERVICES MANAGER ----- Regarding: FW: Work question Contact: Referral request. ----- Message ----- From: Emily Guerrier Sent: 07/04/2022 10:30 AM TRANSACTION ADVISORY SERVICES MANAGER To: [facility] [place] [address] [facility] [place] Subject: Work question Alright. Can I get the referral to infectious disease then? SACTION ADVISORY SERVICES MANAGER documented in this encounter Plan of Treatment Scheduled Referrals Name Type Priority Associated Diagnoses Order Schedule Ambulatory referral to Immunology Outpatient Referral Routine Frequent infections Expected: 07/18/2022 (Approximate), Expires: 07/04/2023 documented as of this encounter Visit Diagnoses Diagnosis Frequent infections- Primary documented in this encounter Care Teams Pump Station Operator Relationship Specialty Start Date End Date Lorie Vanessa NP [address] [place] [id number] PCP - General Family Practice 05/29/22 No, Physician 06/08/21 documented as of this encounter
--- OUTSIDE RECORDS SUMMARY | 2024-06-06 00:36 | XMS_ITS | Encounter Summary ---
Author Organization [facility] Address [address] [place] [address] Care Team Providers Care Medical Staff Manager Name Role Phone No, Physician Unavailable Lorie Vanessa NP Primary Care Provider [phone] Encounter Details Date Type Department Care Team (Late st Contact Info) Description 07/12/2022 Patient Self-Triage [facility] [address] [place] [address] Mychart, Generic Provider [address] [place] [address] Social History Tobacco Use Types Packs/Day Years Used Date Smoking Tobacco: Never PHQ-2 Answer Date Recorded PHQ-2 Total Score (If total score is 3 or more points, staff should administer the PHQ-9) 0 04/12/2022 Comments No Sex and Gender Information Value Date Recorded Sex Assigned at Not on file Legal Sex Female 6:55 PM SPRAGGER Gender Identity Female 06/06/2022 7:40 AM SPRAGGER Sexual Orientation Not on file documented as of this encounter Plan of Treatment Not on file documented as of this encounter Visit Diagnoses Not on filedocumented in this encounter Care Teams Medical Staff Manager Relationship Specialty Start Date End Date Lorie Vanessa NP [address] [place], [place] [id number] PCP - General Family Practice 05/29/22 No, Physician 06/08/21 documented as of this encounter
--- OUTSIDE RECORDS SUMMARY | 2024-06-06 00:36 | XMS_ITS | Encounter Summary ---
Author Organization [facility] Address [address] [place] [address] Care Team Providers Care Commercial Internship Name Role Phone No, Physician Unavailable Lorie Vanessa NP Primary Care Provider Reason for Visit * Reason Comments Abdominal Pain Vomiting Diarrhea Encounter Details Date Type Department Care Team (Late st Contact Info) Description 07/07/2022 11:56 AM BOATBUILDER APPRENTICE WOOD - 07/07/2022 4:52 PM [facility] Emergency [facility] Emergency Department [address] [place] [address] RUQ pain (Primary Dx); Left ovarian cyst; Vomiting and diarrhea Discharge Disposition: Discharge to home or self care Social History Tobacco Use Types Packs/Day Years Used Date Smoking Tobacco: Never PHQ-2 Answer Date Recorded PHQ-2 Total Score (If total score is 3 or more points, staff should administer the PHQ-9) 0 04/12/2022 Comments No Sex and Gender Information Value Date Recorded Sex Assigned at Not on file Legal Sex Female 6:55 PM BOATBUILDER APPRENTICE WOOD Gender Identity Female 06/06/2022 7:40 AM BOATBUILDER APPRENTICE WOOD Sexual Orientation Not on file documented as of this encounter Last Filed Vital Signs Vital Sign Reading Time Taken Comments Blood Pressure 111/75 07/07/2022 4:40 PM BOATBUILDER APPRENTICE WOOD Pulse 91 07/07/2022 4:40 PM BOATBUILDER APPRENTICE WOOD Temperature 36.6 ??C (97.9 ??F) 07/07/2022 1 1:14 AM BOATBUILDER APPRENTICE WOOD Respiratory Rate 18 07/07/2022 4:40 PM BOATBUILDER APPRENTICE WOOD Oxygen Saturation 97% 07/07/2022 4:40 PM BOATBUILDER APPRENTICE WOOD Inhaled Oxygen Concentration - - Weight 121.8 kg (268 lb 8.3 oz) 023 11:14 AM BOATBUILDER APPRENTICE WOOD Height 162.6 cm (5' 4 ) 07/07/2022 11:1 4 AM BOATBUILDER APPRENTICE WOOD Body Mass Index 46.09 07/07/2022 11:14 AM BOATBUILDER APPRENTICE WOOD documented in this encounter Discharge Instructions * Discharge Instructions* Devorah Calhoun PA - 07/07/2022 4:41 PM BOATBUILDER APPRENTICE WOOD Take medication as prescribed. Follow up with her primary care physician on Saturday. Return to the ER for any new or worsening symptoms. Drink plenty of fluids and rest. Advance her diet as tolerated. Follow-up as recommended is mandatory. You have [...] symptoms, worsening of symptoms, or persistent symptoms BUILDER APPRENTICE WOOD * Attachments The following attachments cannot be sent through Care Everywhere. * Acute Nausea and Vomiting (AfterCare(R) Instructions(ER/ED)) (Sudanese) * Abdominal Pain (Driver) (Sudanese) * Ovarian Cyst (AfterCare(R) Instructions(ER/ED)) (Sudanese) documented in this encounter Medications at Time of Discharge clonazePAM (KlonoPIN) 0.5 mg tablet Take 1 tablet (0.5 mg total) by mouth daily as needed lamoTRIgine (LaMICtal) 100 mg tablet Take 1 tablet (100 mg total) by mouth nightly 12/28/2021 albuterol HFA (PROVENTIL HFA,VENTOLIN HFA,PROAIR HFA) 90 mcg/actuation inhalerIndications:S hortness of breath Inhale 2 puffs every 4 (four) hours as needed for wheezing or shortness of breath 1 each 1 04/12/2022 3 cetirizine (ZyrTEC) 10 mg tablet Take 1 tablet (10 mg total) by mouth daily 3 exenatide ER microspheres (Bydureon BCise) 2 mg/0.85 mL auto-injector Inject 2 mg under the skin once a week 06/25/2022 3 HYDROcodone-acetamin ophen (NORCO) 5-325 mg per tablet Take 1 tablet by mouth 06/25/2022 3 norethindrone (MICRONOR) 0.35 mg tablet Take 1 tablet (0.35 mg total) by mouth daily 05/12/2021 3 ondansetron ODT (ZOFRAN-ODT) 8 mg disintegrating tabletIndications:Na usea Take 1 tablet (8 mg total) by mouth every 8 (eight) hours as needed for nausea or vomiting 30 tablet 06/06/[address] (PROTONIX) 40 mg EC tabletIndications:Na usea,Upper abdominal pain Take 1 tablet (40 mg total) by mouth 2 (two) times a day 60 tablet 06/06/2022 3 phentermine 37.5 mg capsule Take 1 capsule (37.5 mg total) by mouth daily 02/23/2022 3 vit [id number] 28 mg iron- 800 mcg tablet Take 1 tablet by mouth daily 01/24/2022 3 promethazine (PHENERGAN) 25 mg tablet Take 1 tablet (25 mg total) by mouth every 6 (six) hours as needed for nausea or vomiting 20 tablet 07/07/2022 3 sertraline (ZOLOFT) 100 mg tablet Take 200 mg by mouth daily 3 traZODone (DESYREL) 150 mg tablet Take 1 tablet (150 mg total) by mouth nightly at bedtime 06/25/2022 3 traZODone (DESYREL) 50 mg tablet Take 2 tablets (100 mg total) by mouth nightly 01/01/2022 3 documented as of this encounter Ordered Prescriptions Prescription Sig Dispense Quantity Refills Last Filled Start Date End Date promethazine (PHENERGAN) 25 mg tablet Take 1 tablet (25 mg total) by mouth every 6 (six) hours as needed for nausea or vomiting 20 tablet 07/07/2022 3 documented in this encounter Discharge Disposition Disposition Code Departure Means Destination Discharge to home or self care documented in this encounter ED Notes * Devorah Calhoun PA - 07/07/2022 12:45 PM CST CHIEF COMPLAINT: Chief Complaint Patient presents with Abdominal Pain Vomiting Diarrhea HPI 4:55 PM Emily Guerrier is a 26 y.o. female presenting to the ED c/o RUQ abdominal pain x 3 days and vomiting/diarrhea x 8 hours. Patient reports 8/10 sharp RUQ abdominal pain that radiates around to her back, no relief with ibuprofen or tylenol. This morning woke at 0300 needing to vomit, has had multiple episodes of non-bloody vomiting and non-bloody diarrhea since waking. Unable to tolerate fluids or food. Also reports cold sweat, chills, and subjective fever since this am. Denies constipation, chest pain, SOB, and urinary symptoms. Hx of IBS with diarrhea, patient reports chronic 3/10 pain to lower abdomen but says this current pain is different. Hx of GERD, says this pain is different. Hx of PCOS. Has appointment with GI doctor next month. History provided by patient PCP: Lorie Vanessa NP PAST MEDICAL HISTORY No past medical history on file. PAST SURGICAL HISTORY Past Surgical History: Procedure Laterality Date BAND HEMORRHOIDECTOMY FAMILY HISTORY Family History Problem Relation Age of Onset Hypertension Mother COPD Mother Squamous cell carcinoma Father Heart failure Brother Diabetes Maternal Grandmother Family history of diabetes mellitus - (Added by TW Conv) Mental illness Maternal Grandmother Family history of mental disorder - (Added by TW Conv) MEDICATIONS GIVEN IN THE ED Medications sodium chloride 0.9% bolus 1,000 mL (0 mL intravenous Stopped 07/07/22 1249) ketorolac (TORADOL) 30 mg/mL (1 mL) injection 15 mg (15 mg intravenous Given 07/07/22 1213) ondansetron (ZOFRAN) injection 4 mg (4 mg intravenous Given 07/07/22 1214) morphine injection 2 mg (2 mg intravenous Given 07/07/22 1249) ioversoL (OPTIRAY 350) syringe 100 mL (100 mL intravenous Contrast Given 07/07/22 1407) morphine injection 2 mg (2 mg intravenous Given 07/07/22 1452) CURRENT HOME MEDICATIONS No current facility-administered medications for this encounter. Current Outpatient Medications: albuterol HFA (PROVENTIL HFA,VENTOLIN HFA,PROAIR HFA) 90 mcg/actuation inhaler, Inhale 2 puffs every 4 (four) hours as needed for wheezing or shortness of breath, Disp: 1 each, Rfl: 1 cetirizine (ZyrTEC) 10 mg tablet, Take 1 tablet (10 mg total) by mouth daily, Disp: , Rfl: clonazePAM (KlonoPIN) 0.5 mg tablet, Take 0.5 mg by mouth daily as needed, Disp: , Rfl: lamoTRIgine (LaMICtal) 100 mg tablet, Take 1 tablet (100 mg total) by mouth daily, Disp: , Rfl: norethindrone (MICRONOR) 0.35 mg tablet, Take 1 tablet (0.35 mg total) by mouth daily, Disp: , Rfl: ondansetron ODT (ZOFRAN-ODT) 8 mg disintegrating tablet, Take 1 tablet (8 mg total) by mouth every 8 (eight) hours as needed for nausea or vomiting, Disp: 30 tablet, Rfl: [address] (PROTONIX) 40 mg EC tablet, Take 1 tablet (40 mg total) by mouth 2 (two) times a day, Disp: 60 tablet, Rfl: 0 phentermine 37.5 mg capsule, Take 1 capsule (37.5 mg total) by mouth daily, Disp: , Rfl: vit no.[id number] 28 mg iron- 800 mcg tablet, Take 1 tablet by mouth daily (Patient not taking: Reported on 06/06/2022), Disp: , Rfl: promethazine (PHENERGAN) 25 mg tablet, Take 1 tablet (25 mg total) by mouth every 6 (six) hours as needed for nausea or vomiting, Disp: 20 tablet, Rfl: 0 sertraline (ZOLOFT) 100 mg tablet, Take 100 mg by mouth daily, Disp: , Rfl: traZODone (DESYREL) 50 mg tablet, Take 2 tablets (100 mg total) by mouth nightly, Disp: , Rfl: ALLERGIES Allergies Allergen Reactions Fluoxetine Mental status changes Nitrofurantoin Itching SOCIAL HISTORY Social History Tobacco Use Smoking status: Never Smokeless tobacco: Not on file Substance and Sexual Activity Drug use: Not on file Sexual activity: Not on file Alcohol Use: Not on file PHYSICAL EXAM TRIAGE VITAL SIGNS: ED Triage Vitals Temp Pulse Resp BP SpO2 07/07/22 1114 07/07/22 1114 07/07/22 1114 07/07/22 1114 07/07/22 1114 36.6 ??C (97.9 ??F) 108 18 117/76 99 % Temp src Heart Rate Source Patient Position BP Location FiO2 (%) 07/07/22 1114 07/07/22 1316 07/07/22 1316 07/07/22 1316 -- Oral Left;Monitor Lying Right arm Height Height Method Weight Weight Method 07/07/22 1114 -- 07/07/22 1114 07/07/22 1114 1.626 m (5' 4 ) 121.8 kg (268 lb 8.3 oz) Standing scale Physical Exam Constitutional: General: She is in acute distress. Appearance: She is well-developed. She is obese. She is not ill-appearing, toxic-appearing or diaphoretic. Comments: Patient grimacing throughout exam due to pain HENT: Head: Normocephalic. Right Ear: External ear normal. Left Ear: External ear normal. Nose: Nose normal. Eyes: Conjunctiva/sclera: Conjunctivae normal. Cardiovascular: Rate and Rhythm: Normal rate. Pulmonary: Effort: Pulmonary effort is normal. Abdominal: Palpations: Abdomen is soft. There is no mass. Tenderness: There is abdominal tenderness in the right upper quadrant. There is no right CVA tenderness, left CVA tenderness, guarding or rebound. Hernia: No hernia is [...] Yellow Clarity, ur Clear Specific gravity, ur >=1.030 (*) pH, urine 5.5 Protein, ur ql 1+ (*) Glucose, ur ql Negative Ketones, ur 1+ (*) Bilirubin, ur 1+ (*) Blood, ur Negative Urobilinogen, ur 0.2 Nitrite, ur Negative Leukocyte esterase, ur Trace (*) UA reflex comment Reflex to microscopic UA will be performed. Narrative: Urine pH is affected by diet, medications, systemic acid-base disturbances, and renal tubular function. pH may affect urinary stone formation. For example, urine pH below 6.0 may help reduce the tendency for calcium phosphate stones and pH greater than 6.0 may reduce the tendency for uric acid stone formation. Source: [employer].Last revised 06-06-2017 CBC WITH AUTO DIFFERENTIAL - Abnormal WBC 14.4 (*) Hgb 14.7 Hct 44.2 Plt 386 MPV 8.5 (*) RBC 5.23 (*) MCV 84.5 MCH 28.1 MCHC 33.3 RDW CV 12.3 RDW SD 37.4 NRBC abs 0.00 COMPREHENSIVE METABOLIC PANEL - Abnormal Sodium 136 Potassium, pl 4.2 Chloride 103 CO2 21 (*) Anion gap 12 BUN 10 Creatinine 0.60 Glucose 108 Calcium 9.3 Bilirubin, total 0.6 Protein, pl 7.8 Albumin 4.4 Alk phos 100 ALT 11 AST 16 URINALYSIS, MICROSCOPIC ONLY - Abnormal WBC, ur 6-10 (*) RBC, ur 6-10 (*) Epithelial cells, squamous, ur >50 (*) Bacteria, ur Trace (*) Mucous, ur Present (*) Culture Reflex Comment Value: Reflex conditions for urine culture (WBC >10) not met. DIFFERENTIAL AUTO - Abnormal Neutrophil abs 12.2 (*) Imm gran abs 0.1 Lymphocyte abs 1.0 Monocyte abs 0.9 (*) Eosinophil abs 0.2 Basophil abs 0.0 Neutrophil pct 84.8 Imm gran pct 0.3 Lymphocyte pct 7.2 Monocyte pct 6.4 Eosinophil pct 1.0 Basophil pct 0.3 POCT HCG, URINE - Normal HCG, ur, POC Negative Lot Number [id number] QC Backgroud Clear Acceptable QC Control Line Acceptable LIPASE Lipase 23 EGFR eGFR 128 ED COURSE/MEDICAL DECISION MAKING Differential diagnosis including but not limited to acute cholecystitis, gastritis, GERD, gastroenteritis, colitis, IBS, ovarian torsion Patient has white count of 14.4 but the remainder of her lab workup has been reassuring. CT showed concern for ovarian torsion. Ultrasound showed normal blood flow to both ovaries. She does have 4.5 cm complex left ovarian cyst with recommended follow-up pelvic ultrasound in 6-8 weeks. Patient is feeling better. Will discharge patient with strict return precautions and a prescription for nausea medication. Patient instructed to follow up with her primary care physician on Saturday. Pt tolerating PO. Disposition: Patient will be discharged with strict return precautions and follow up with primary MD within 12-24 hours for further evaluation. Patient understands that this still may have an early presentation of an emergent medical conditionsuch as appendicitis that will require a recheck. Patient's medical records were reviewed. FINAL IMPRESSION RUQ pain Left ovarian cyst Vomiting and diarrhea DISPOSITION: Home All findings were discussed with patient. Pt agreeable with plan. Non toxic appearing, vitals stable. Patient stable for discharge home. Given return to ER precautions Close outpatient follow-up with a low threshold to return has been mandated , concerning symptoms have been emphasized in detail, and this patient expresses understanding PATIENT INSTRUCTED TO FOLLOW UP Lorie Vanessa, [place] [address] [place] [id number] In 2 days for re-evaluation and further treatment DISCHARGE MEDICATIONS Your medication list START taking these medications Instructions Last Dose Given Next Dose Due promethazine 25 mg tablet Commonly known as: PHENERGAN Take 1 tablet (25 mg total) by mouth every 6 (six) hours as needed for nausea or vomiting ASK your doctor about these medications Instructions Last Dose Given Next Dose Due albuterol HFA 90 mcg/actuation inhaler Commonly known as: PROVENTIL HFA,VENTOLIN HFA,PROAIR HFA Inhale 2 puffs every 4 (four) hours as needed for wheezing or shortness of breath cetirizine 10 mg tablet Commonly known as: ZyrTEC Take 1 tablet (10 mg total) by mouth daily clonazePAM 0.5 mg tablet Commonly known as: KlonoPIN Take 0.5 mg by mouth daily as needed lamoTRIgine 100 mg tablet Commonly known as: LaMICtal Take 1 tablet (100 mg total) by mouth daily norethindrone 0.35 mg tablet Commonly known as: MICRONOR Take 1 tablet (0.35 mg total) by mouth daily ondansetron ODT 8 mg disintegrating tablet Commonly known as: ZOFRAN-ODT Take 1 tablet (8 mg total) by mouth every 8 (eight) hours as needed for nausea or vomiting pantoprazole DR 40 mg EC tablet Commonly known as: PROTONIX Take 1 tablet (40 mg total) by mouth 2 (two) times a day phentermine 37.5 mg capsule Take 1 capsule (37.5 mg total) by mouth daily vit no.[id number] 28 mg iron- 800 mcg tablet Take 1 tablet by mouth daily sertraline 100 mg tablet Commonly known as: ZOLOFT Take 100 mg by mouth daily traZODone 50 mg tablet Commonly known as: DESYREL Take 2 tablets (100 mg total) by mouth nightly Where to Get Your Medications These medications were sent to [id number] - [place], [place] - [address] [facility] [place] [address] [facility] [id number] promethazine 25 mg tablet This examination was transcribed using the [employer] voice recognition system without human head insulation board saw operator. In an effort to expedite patient care, this report has not been adjusted for typographical, grammatical, and syntax by a trained medical billing and coding instructor. Devorah Calhoun PA 07/07/22 [id number] Cosigned by Gopi Zaragoza MD at 07/07/2022 5:59 PM BOATBUILDER APPRENTICE WOOD BUILDER APPRENTICE WOOD BUILDER APPRENTICE WOOD * Tiffany Chavira, RN - 07/07/2022 11:12 AM CST RUQ pain that wraps around to the back for 3 days, worsening pain with N/V/D onset at 0400. Hx IBS BUILDER APPRENTICE WOOD documented in this encounter Plan of Treatment Not on file documented as of this encounter Procedures Procedure Name Priority Date/Time Associated Diagnosis Comments US TRANSVAGINAL ED 07/07/2022 3:37 [address] BO[address]BU[employer]DER APPRENTICE WOOD CT ABDOMEN PELVIS W CONTRAST ED 07/07/2022 2:07 PM BOATBUILDER APPRENTICE WOOD POCT HCG, URINE STAT 07/07/2022 12:07 PM BOATBUILDER APPRENTICE WOOD EGFR STAT 07/07/2022 11:28 AM BOATBUILDER APPRENTICE WOOD DIFFERENTIAL AUTO STAT 07/07/2022 11: 28 AM BOATBUILDER APPRENTICE WOOD URINALYSIS AND REFLEX TO MICROSCOPIC AND CULTURE STAT 07/07/2022 11:28 AM BOATBUILDER APPRENTICE WOOD CBC WITH AUTO DIFFERENTIAL STAT 07/07/2022 11:28 AM BOATBUILDER APPRENTICE WOOD URINALYSIS, MICROSCOPIC ONLY STAT 07/07/2022 11:28 AM BOATBUILDER APPRENTICE WOOD LIPASE STAT 07/07/2022 11:28 AM BOATBUILDER APPRENTICE WOOD COMPREHENSIVE METABOLIC PANEL STAT 07/07/2022 11:28 AM BOATBUILDER APPRENTICE WOOD documented in this encounter Results * US Transvaginal (07/07/2022 3:37 PM BOATBUILDER APPRENTICE WOOD) Anatomical Region Laterality Modality Pelvis N/A Ultrasound 07/07/2022 3:57 PM BOATBUILDER APPRENTICE WOOD Narrative 07/07/2022 4:05 PM BOATBUILDER APPRENTICE WOOD EXAM DESCRIPTION: ?? US TRANSVAGINAL REASON FOR STUDY: ?? Abnormal CT scan. ??Abdominal pain. ??Right sided abdominal pain for 3 days. ??Worsening nausea, vomiting, and diarrhea. TECHNIQUE: Grayscale ultrasound of the pelvic contents was performed with ?? transvaginal ??transducer. ?? COMPARISON: ?? CT abdomen and pelvis 07/07/2022, pelvic ultrasound 08/19/2021 FINDINGS: UTERUS: ?? The uterus is anteverted. ??The uterus is ??homogenous ??in echotexture and measures ??6.7 x 3.6 x 2.9 ??cm. ENDOMETRIUM: The endometrium measures ??0.6 cm ??in thickness. RIGHT OVARY: The right ovary measures ??3.2 x 2.4 x 1.8 ??cm. ??There is documentation of color Doppler flow in the right ovary. The right ovary appears unremarkable. LEFT OVARY: The left ovary measures ??5.8 x 5.4 x 3.8 ??cm. ??Blood flow is preserved to the left ovary. ??There is a mildly complex cyst within the left ovary measuring 4.5 x 4.2 x 2.8 cm. ??No internal vascularity. ??There are diffuse low level internal echoes. PELVIC FLUID: ?? Small to moderate amount of free fluid in the cul-de-sac. OTHER: ?? No other significant findings. IMPRESSION: ?? 1. ?? Mildly complex left ovarian cyst measuring 4.5 cm with low level internal echoes. ??This is favored to represent a hemorrhagic cyst or less likely endometrioma. ??Follow-up pelvic ultrasound in 6-8 weeks is recommended. 2. ?? Small to moderate amount of free pelvic fluid in the cul-de-sac and left adnexa. 3. ?? Normal sonographic appearance of the right ovary. THIS IS AN ELECTRONICALLY VERIFIED FINAL REPORT 07/07/2022 4:05 PM - Electronically signed by ??Aamir Reyes M.D. LB: YADIEL D: ??07/07/2022 4:05 PM T: ??07/07/2022 4:05 PM Report ID: [id number] Reading Location: ??[id number] Procedure Note Aamir Reyes MD - 07/07/2022 EXAM DESCRIPTION: US TRANSVAGINAL REASON FOR STUDY: Abnormal CT scan. Abdominal pain. Right sidedabdominal pain for 3 days. Worsening nausea, vomiting, and diarrhea. TECHNIQUE: Grayscale ultrasound of the pelvic contents was performed with transvaginal transducer. COMPARISON: CT abdomen and pelvis 07/07/2022, pelvic [id number]/26/2022 FINDINGS: UTERUS: The uterus is anteverted. The uterus is homogenousin echotexture and measures 6.7 x 3.6 x 2.9 cm. ENDOMETRIUM: The endometrium measures 0.6 cm in thickness. RIGHT OVARY: The right ovary measures 3.2 x 2.4 x 1.8 cm. There is documentation of color Doppler flow in the right ovary. The right ovary appears unremarkable. LEFT OVARY: The left ovary measures 5.8 x 5.4 x 3.8 cm. Blood flow is preserved to the left ovary. There is a mildly complex cyst within theleft ovary measuring 4.5 x 4.2 x 2.8 cm. No internal vascularity. There are diffuse low level internal echoes. PELVIC FLUID: Small to moderate amount of free fluid in the cul-de-sac. OTHER: No other significant findings. IMPRESSION: 1. Mildly complex left ovarian cyst measuring 4.5 cm with low levelinternal echoes. This is favored to represent a hemorrhagic cyst or less likely endometrioma. Follow-up pelvic ultrasound in 6-8 weeks is recommended. 2. Small to moderate amount of free pelvic fluid in the cul-de-sac andleft adnexa. 3. Normal sonographic appearance of the right ovary. THIS IS AN ELECTRONICALLY VERIFIED FINAL REPORT 07/07/2022 4:05 PM - Electronically signed by Aamir Reyes M.D. LB: YADIEL Report ID: [id number] Reading Location: [id number] us Devorah LEYVA IMG US PROCEDURES Final R esult * CT Abdomen Pelvis W Contrast (07/07/2022 2:07 PM BOATBUILDER APPRENTICE WOOD) Anatomical Region Laterality Modality Body N/A Computed Tomogra phy 07/07/2022 2:31 PM BOATBUILDER APPRENTICE WOOD Narrative 07/07/2022 2:49 PM BOATBUILDER APPRENTICE WOOD EXAM DESCRIPTION: ?? CT ABDOMEN PELVIS W CONTRAST REASON FOR STUDY: ?? Abdominal pain, acute, nonlocalized ?? Table formatting from the original note was not included. ?RUQ pain that wraps around to the back for 3 days, worsening pain with N/V/D onset at 0400. ?? Hx IBS ? TECHNIQUE: CT scan of the [...] ?? injected via ?? intravenous COMPARISON: ?? 03/21/2022 FINDINGS: The lung bases are clear. The heart is normal size without pericardial effusion. ??The aorta is normal in caliber and contour. ??The celiac trunk, superior mesenteric artery, and inferior mesenteric artery are patent. ??No suspicious lesions in the liver. ?? There is no intrahepatic or extrahepatic biliary ductal dilation. ??The portal vein, superior mesenteric vein, and splenic vein are patent. The gallbladder, pancreas, spleen, and bilateral adrenal glands are normal. ?? The kidneys enhance symmetrically without hydronephrosis. ??There is a 1 mm renal stone in the upper pole of the left kidney. ??There is a stable 1.2 cm hypoattenuating lesion in the right kidney, most likely a cyst. ??The bladder is decompressed. The left ovary is intervally enlarged with a new cystic lesion measuring 4.2 cm with small volume surrounding fluid tracking posteriorly into the posterior cul-de-sac. ??There is mild medial displacement of the left ovary resulting in mass effect on the uterus. ??The right ovary is normal. The bowel loops are normal in caliber without wall thickening. ??The appendix is normal. ??There is no free air or lymphadenopathy in the abdomen or pelvis. No suspicious osseous lesions. IMPRESSION: ?? 1. ?? Left ovary is intervally enlarged with a new cystic lesion measuring 4.2 cm with small volume surrounding fluid tracking posteriorly into the posterior cul-de-sac. ??There is mild medial displacement of the left ovary resulting in mass effect on the uterus. ??Finding is concerning for ovarian torsion and/or ruptured corpus luteal cyst. ??Recommend emergent sonogram of the left ovary for further evaluation. 2. ?? 1 mm nonobstructing renal stone in the upper pole of the left kidney. ??Critical finding was discussed with GORDON Calhoun by Dr. Marleen George at 2:45 p.m. on 07/07/2022. REFERENCE: Per ACR white paper recommendations, unless otherwise specified no follow-up imaging is recommended for incidental renal and adrenal lesions per consensus recommendations based on imaging criteria. Further lab evaluation could be pursued based on clinical findings. THIS IS AN ELECTRONICALLY VERIFIED FINAL REPORT 07/07/2022 2:49 PM - Electronically signed by ??Marleen George M.D. QX: QX D: ??07/07/2022 2:47 PM T: ??07/07/2022 2:49 PM Report ID: [id number] Reading Location: ??[id number] Procedure Note Marleen George MD - 07/07/2022 EXAM DESCRIPTION: CT ABDOMEN PELVIS W CONTRAST REASON FOR STUDY: Abdominal pain, acute, nonlocalized Table formatting from the original note was not included. RUQ painthat wraps around to the back for 3 days, worsening pain with N/V/D onset [id number]. Hx IBS TECHNIQUE: CT scan of the abdomen and pelvis performed with intravenousand without oral contrast using helical scanning technique with dynamic intravenous contrast injection. Reconstructed coronal and sagittal MPRimages reviewed. All images stored on PACS. Automated exposure control was used as a dose optimization technique forthis examination. CONTRAST TYPE/DOSE: 100mL of IOVERSOL 350 MG IODINE/ML INTRAVENOUSSYRINGE injected via intravenous COMPARISON: 03/21/2022 FINDINGS: The lung bases are clear. The heart is normal size without pericardial effusion. The aorta isnormal in caliber and contour. The celiac trunk, superior mesenteric artery, and inferior mesenteric artery are patent. No suspicious lesions in theliver. There is no intrahepatic or extrahepatic biliary ductal dilation. Theportal vein, superior mesenteric vein, and splenic vein are patent. The gallbladder, pancreas, spleen, and bilateral adrenal glands arenormal. The kidneys enhance symmetrically without hydronephrosis. There is a 1 mm renal stone in the upper pole of the left kidney. There is a stable 1.2cm hypoattenuating lesion in the right kidney, most likely a cyst. Thebladder is decompressed. The left ovary is intervally enlarged with a new cystic lesion measuring4.2 cm with small volume surrounding fluid tracking posteriorly into theposterior cul-de-sac. There is mild medial displacement of the left ovary resultingin mass effect on the uterus. The right ovary is normal. The bowel loops are normal in caliber without wall thickening. Theappendix is normal. There is no free air or lymphadenopathy in the abdomen orpelvis. No suspicious osseous lesions. IMPRESSION: 1. Left ovary is intervally enlarged with a new cystic lesion measuring4.2 cm with small volume surrounding fluid tracking posteriorly into theposterior cul-de-sac. There is mild medial displacement of the left ovary resultingin mass effect on the uterus. Finding is concerning for ovarian torsionand/or ruptured corpus luteal cyst. Recommend emergent sonogram of the leftovary for further evaluation. 2. 1 mm nonobstructing renal stone in the upper pole of the left kidney. Critical finding was discussed with GORDON Calhoun by Dr. Marleen Lubin 2:45 p.m. on 07/07/2022. REFERENCE: Per ACR white paper recommendations, unless otherwise specifiedno follow-up imaging is recommended for incidental renal and adrenal lesionsper consensus recommendations based on imaging criteria. Further labevaluation could be pursued based on clinical findings. THIS IS AN ELECTRONICALLY VERIFIED FINAL REPORT 07/07/2022 2:49 PM - Electronically signed by Marleen George M.D. QX: QX Report ID: [id number] Reading Location: [id number] us Devor[facility] CT PROCEDURES Final R esult * POCT hCG, urine (07/07/2022 12:07 PM [employer]) HCG, ur, POC Negative Lot Number [id number] QC Backgroud Clear Acceptable QC Control Line Acceptable Urine 07/07/2022 12:0 7 PM [employer] Devorah LEYVA POINT OF CARE TEST ORDERA BLES Final Result * eGFR (07/07/2022 11:28 AM [employer]) Pathologist [facility] eGFR 128 mL/min/1. 73 m2 FRAN HAYS [...] was last reviewed 2021. Testing performed by: [facility], [address] [place] [address], [place]., [address] Blood 07/07/2022 11:2 8 AM [employer] 07/07/2022 11:49 AM [employer] Devorah LEYVA LAB BLOOD ORDERABLES Magda l Result FRAN [address] [facility] Department [place] [address] * (ABNORMAL) Differential, auto (07/07/2022 11:28 AM [employer]) Neutrophil abs 12.2(H) 1.7 - 6.5 K/cumm FRAN Comment:Testing performed by : [address] [address] Imm gran abs 0.1 0.0 - 0.1 K/cumm FRAN Comment:Testing performed by : [address] [address] Lymphocyte abs 1.0 0.8 - 3.3 K/cumm FRAN Comment:Testing performed by : [address] [address] Monocyte abs 0.9(H) 0.2 - 0.8 K/cumm FRAN Comment:Testing performed by : [address] [address] Eosinophil abs 0.2 0.0 - 0.5 K/cumm FRAN Comment:Testing performed by : [address] [address] Basophil abs 0.0 0.0 - 0.1 K/cumm FRAN Comment:Testing performed by : [address] [address] Neutrophil pct 84.8 % FRAN Comment: Interpretive Data Percent cell count reference ranges are not reported, since discordance with absolute values may lead to misinterpretation of CBC data. Current Interpretive Data was last revised on 2017. Testing performed by: [address] [address] Imm gran pct 0.3 % FRAN Comment: Interpretive Data Percent cell count reference ranges are not reported, since discordance with absolute values may lead to misinterpretation of CBC data. Current Interpretive Data was last revised on 2017. Testing performed by: [address] [address] Lymphocyte pct 7.2 % FRAN Comment: Interpretive Data Percent cell count reference ranges are not reported, since discordance with absolute values may lead to misinterpretation of CBC data. Current Interpretive Data was last revised on 2017. Testing performed by: [address] [address] Monocyte pct 6.4 % FRAN Comment: Interpretive Data Percent cell count reference ranges are not reported, since discordance with absolute values may lead to misinterpretation of CBC data. Current Interpretive Data was last revised on 2017. Testing performed by: [address] [address] Eosinophil pct 1.0 % FRAN Comment: Interpretive Data Percent cell count reference ranges are not reported, since discordance with absolute values may lead to misinterpretation of CBC data. Current Interpretive Data was last revised on 2017. Testing performed by: [address] [address] Basophil pct 0.3 % FRAN Comment: Interpretive Data Percent cell count reference ranges are not reported, since discordance with absolute values may lead to misinterpretation of CBC data. Current Interpretive Data was last revised on 2017. Testing performed by: [address] [address] Blood 07/07/2022 11:2 8 AM [employer] 07/07/2022 11:49 AM [employer] Devorah LEYVA LAB BLOOD ORDERABLES Magda l Result [facility] [address] [facility] Department of Laboratories [place], [place] [id number] * (ABNORMAL) Urinalysis, microscopic only (07/07/2022 11:28 AM [employer]) WBC, ur 6-10(A) 0 - 5 /HPF FRAN Comment:Testing performed by : [address] [address] RBC, ur 6-10(A) 0 - 2 /HPF FRAN Comment:Testing performed by : [address] [address] Epithelial cells, squamous, ur >50(A) 0 - 5 /HPF FRAN Comment:Testing performed by : [address] [address] Bacteria, ur Trace(A) FRAN Comment:Testing performed by : [address] [address] Mucous, ur Present(A) FRAN Comment:Testing performed by : [address] [address] Culture Reflex Comment Reflex conditions for urine culture (WBC >10) not met. FRAN Comment:Testing performed by : [address] [address] Urine 07/07/2022 11:2 8 AM [employer] 07/07/2022 11:31 AM [employer] Devorah LEYVA LAB URINE ORDERABLES Magda l Result Performing Organization Address City/[facility]/ZIP Co de Phone Number [address] [place] [address] * Lipase (07/07/2022 11:28 AM [employer]) Lipase 23 10 - 99 Units/L FRAN Comment:Testing performed by : [address] [address] Blood 07/07/2022 11:2 8 AM [employer] 07/07/2022 11:49 AM [employer] Devorah LEYVA LAB BLOOD ORDERABLES Magda l Result Performing Organization Address City/[facility]/ZIP Co de Phone Number [address] [place] [address] * (ABNORMAL) Urinalysis reflex to microscopic and culture Urine (07/07/2022 11:28 AM [employer]) Color, ur Yellow Yellow FRAN Comment:Testing performed by : [address] [address] Clarity, ur Clear Clear FRAN Comment:Testing performed by : [facility], [address] [place] [address], [place]., [address] Specific gravity, ur >=1.030(A) 1.003 - 1.030 FRAN Comment:Testing performed by : [facility], [address] [place] [address], [place]., [address] pH, urine 5.5 FRAN Comment:Testing performed by : [address], [place]., [address] Protein, ur ql 1+(A) Negative FRAN Comment:Testing performed by : [address], [place]., [address] Glucose, ur ql Negative Negative FRAN Comment:Testing performed by : [address], [place]., [address] Ketones, ur 1+(A) Negative FRAN Comment:Testing performed by : [address], [place]., [address] Bilirubin, ur 1+(A) Negative FRAN Comment:Testing performed by : [address], [place]., [address] Blood, ur Negative Negative FRAN Comment:Testing performed by : [address] [address] Urobilinogen, ur 0.2 <2.0 mg/dL FRAN Comment:Testing performed by : [address] [address] Nitrite, ur Negative Negative FRAN Comment:Testing performed by : [address] [address] Leukocyte esterase, ur Trace(A) Negative FRAN Comment:Testing performed by : [address] [address] UA reflex comment Reflex to microscopic UA will be performed. FRAN Comment:Testing performed by : [address] [address] Urine 07/07/2022 11:2 8 AM [employer] 07/07/2022 11:31 AM [employer] Narrative FRAN - 07/07/2022 11:40 AM [employer] ?? Urine pH is affected by diet, medications, systemic acid-base disturbances, and renal tubular function. ??pH may affect urinary stone formation. ??For example, urine pH below 6.0 may help reduce the tendency for calcium phosphate stones and pH greater than 6.0 may reduce the tendency for uric acid stone formation. Source: [employer]. Last revised 06-06-2017 us Devorah LEYVA LAB MICROBIOLOGY - GENERA L ORDERABLES Final Result FRAN [address] [facility] Department [place] [address] * (ABNORMAL) Comprehensive metabolic panel (07/07/2022 11:28 AM [employer]) Sodium 136 135 - 145 mmol/L FRAN Comment:Testing performed by : [address] [address] Potassium, pl 4.2 3.3 - 4.9 mmol/L FRAN Comment:Testing performed by : [address] [address] Chloride 103 97 - 110 mmol/L FRAN Comment:Testing performed by : [address] [address] CO2 21(L) 22 - 32 mmol/L FRAN Comment:Testing performed by : [address] [address] Anion gap 12 2 - 15 mmol/L FRAN Comment:Testing performed by : [address] [address] BUN 10 8 - 25 mg/dL FRAN Comment:Testing performed by : [address] [address] Creatinine 0.60 0.60 - 1.10 mg/dL FRAN Comment:Testing performed by : [address] [address] Glucose 108 70 - 199 mg/dL FRAN Comment: Interpretive [...] was last revised 2022. Testing performed by: [address] [address] Calcium 9.3 8.5 - 10.3 mg/dL FRAN Comment:Testing performed by : [address] [address] Bilirubin, total 0.6 0.1 - 1.2 mg/dL FRAN Comment:Testing performed by : [address] [address] Protein, pl 7.8 6.5 - 8.5 g/dL FRAN Comment:Testing performed by : [address], [address] Albumin 4.4 3.5 - 5.0 g/dL [facility] Comment:Testing performed by : [address] [address] Alk phos 100 40 - 130 Units/L FRAN Comment:Testing performed by : [address] [address] ALT 11 7 - 45 Units/L FRAN Comment:Testing performed by : [address] [address] AST 16 10 - 45 Units/L [facility] Comment:Testing performed by : [address] [address] Blood 07/07/2022 11:2 8 AM [employer] 07/07/2022 11:49 AM [employer] us Devorah LEYVA LAB BLOOD ORDERABLES Magda l Result FRAN [address] [facility] Department of Laboratories [place], [place] [id number] * (ABNORMAL) CBC with auto differential (07/07/2022 11:28 AM [employer]) [facility] Signature WBC 14.4(H) 3.8 - 9.9 K/cumm FRAN Comment:Testing performed by : [address] [address] Hgb 14.7 11.9 - 15.5 g/dL FRAN Comment:Testing performed by : [address], [address] Hct 44.2 35.6 - 45.5 % FRAN Comment:Testing performed by : [address], [address] Plt 386 150 - 400 K/cumm FRAN Comment:Testing performed by : [address], [address] MPV 8.5(L) 9.1 - 12.3 fL FRAN Comment:Testing performed by : [address], [address] RBC 5.23(H) 3.90 - 5.20 M/cumm FRAN Comment:Testing performed by : [address], [address] MCV 84.5 81.3 - 96.4 fL FRAN Comment:Testing performed by : [address], [address] MCH 28.1 27.1 - 33.3 pg FRAN Comment:Testing performed by : [address], [address] MCHC 33.3 32.3 - 35.7 g/dL FRAN Comment:Testing performed by : [address], [address] RDW CV 12.3 11.1 - 14.9 % FRAN Comment:Testing performed by : [address], [address] RDW SD 37.4 35.7 - 48.1 fL FRAN Comment:Testing performed by : [address], [address] NRBC abs 0.00 0.00 - 0.01 K/cumm FRAN Comment:Testing performed by : [facility], [address] [place] [address], [place]., [address] Blood 07/07/2022 11:2 8 AM [employer] 07/07/2022 11:49 AM [employer] us Devorah LEYVA LAB BLOOD ORDERABLES Magda l Result FRAN [address] [facility] [place] [address] documented in this encounter Visit Diagnoses Diagnosis RUQ pain- Primary Abdominal pain, right upper quadrant Left ovarian cyst Other and unspecified ovarian cyst Vomiting and diarrhea documented in this encounter Administered Medications Inactive Administered Medications - up to 3 most recent administrations Medication Order MAR Action Action Date Dose Rate Site ioversoL (OPTIRAY 350) syringe 100 mL 100 mL, intravenous, Once in imaging, contrast, Starting on 07/07/22 at 1407, For 1 dose Contrast Given 07/07/2022 2:07 PM [employer] 100 mL ketorolac (TORADOL) 30 mg/mL (1 mL) injection 15 mg 15 mg, intravenous, Once, On 07/07/22 at 1121, For 1 dose, For Adult IV push, administer over 15 seconds, Indications: PainIndications:Pain Given 07/07/2022 12:13 PM [employer] 15 mg morphine injection 2 mg 2 mg, intravenous, Administer over 4 Minutes, Once, On 07/07/22 at 1244, For 1 dose Given 07/07/2022 12:49 PM [employer] 2 mg morphine injection 2 mg 2 mg, intravenous, Administer over 4 Minutes, Once, On 07/07/22 at 1450, For 1 dose Given 07/07/2022 2:52 PM [employer] 2 mg ondansetron (ZOFRAN) injection 4 mg 4 mg, intravenous, Administer over 2 Minutes, Once, On 07/07/22 at 1121, For 1 dose, Indications: Nausea, VomitingIndications:Nause a,Vomiting Given 07/07/2022 12:14 PM [employer] 4 mg sodium chloride 0.9% bolus 1,000 mL 1,000 mL, intravenous, at 1,000 mL/hr, Administer over 1 Hours, Once, On 07/07/22 at 1121, For 1 dose New Bag 07/07/2022 12:12 PM [employer] 1,000 mL 1000 mL/hr documented in this encounter Active and Recently Administered Medications Times are shown in [employer]. Scheduled Medication Order 07/05/2022 07/06/2022 07/07/2022 ketorolac (TORADOL) 30 mg/mL (1 mL) injection 15 mg (COMPLETED) 15 mg, intravenous, Once, On 07/07/22 at 1121, For 1 dose, For Adult IV push, administer over 15 seconds, Indications: Pain 1213 (Given - Provid er: Ernestine Gallardo RN) morphine injection 2 mg (COMPLETED) 2 mg, intravenous, Administer over 4 Minutes, Once, On 07/07/22 at 1244, For 1 dose 1249 (Given - Provid er: Katya Williamson, KAYLEY) morphine injection 2 mg (COMPLETED) 2 mg, intravenous, Administer over 4 Minutes, Once, On 07/07/22 at 1450, For 1 dose 1452 (Given - Provid er: Katya Williamson RN) ondansetron (ZOFRAN) injection 4 mg (COMPLETED) 4 mg, intravenous, Administer over 2 Minutes, Once, On 07/07/22 at 1121, For 1 dose, Indications: Nausea, Vomiting 1214 (Given - Provid er: Ernestine Gallardo RN) sodium chloride 0.9% bolus 1,000 mL (COMPLETED) 1,000 mL, intravenous, at 1,000 mL/hr, Administer over 1 Hours, Once, On 07/07/22 at 1121, For 1 dose 1212 (New Bag - Prov ider: Ernestine Gallardo RN)1249 (Stopped - Provider: Katya Williamson RN) PRN Medication Order 07/05/2022 07/06/2022 07/07/2022 ioversoL (OPTIRAY 350) syringe 100 mL (COMPLETED) 100 mL, intravenous, Once in imaging, contrast, Starting on 07/07/22 at 1407, For 1 dose 1407 (Contrast Given - Provider: Marco Antonio Guerrero, RT) documented in this encounter Care Teams [employer] Relationship Specialty Start Date End Date Lorie Vanessa NP [facility] [address] PCP - General Family Practice 05/29/22 No, Physician 06/08/21 documented as of this encounter
--- OUTSIDE RECORDS SUMMARY | 2024-06-06 00:36 | XMS_ITS | Encounter Summary ---
Author Organization [facility] Address [address] [facility] [address] [place] [id number] Care Team Providers Care Jailer Name Role Phone No, Physician Unavailable Lorie Vanessa NP Primary Care Provider [phone] Reason for Visit * Reason Comments Follow-up ER; 07/07 due to vom itus and severe abdominal pain; No fever; fiance also acquired same Sx; Encounter Details Date Type Department Care Team ([facility] st Contact Info) Description 07/11/2022 4:15 PM [facility] Office Visit [facility] [place] [address] [facility] [address] [place] [address] Lorie Vanessa NP [address] [place] [phone] Right upper quadrant pain (Primary Dx); Dizziness; Left lower quadrant pain Social History Tobacco Use Types Packs/Day Years Used Date Smoking Tobacco: Never Tobacco Cessation:Counseling Given: Not Answered PHQ-2 Answer Date Recorded PHQ-2 Total Score (If total score is 3 or more points, staff should administer the PHQ-9) 0 04/12/2022 Comments No Sex and Gender Information Value Date Recorded Sex Assigned at Not on file Legal Sex Female 6:55 PM [facility] Gender Identity Female 06/06/2022 7:40 AM [facility] Sexual Orientation Not on file documented as of this encounter Last Filed Vital Signs Vital Sign Reading Time Taken Comments Blood Pressure 112/75 07/11/2022 4:39 PM [facility] Pulse 113 07/11/2022 4:39 PM [facility] Temperature 36.7 ??C (98.1 ??F) 07/11/2022 4:39 PM CS T Respiratory Rate 14 07/11/2022 4:39 PM [facility] Oxygen Saturation 98% 07/11/2022 4:39 PM [facility] Inhaled Oxygen Concentration - - Weight 122.1 kg (269 lb 3.2 oz) 07/11/2022 4:39 PM [facility] Height 162.6 cm (5' 4.02 ) 07/11/2022 4:39 PM CS T Body Mass Index 46.18 07/11/2022 4:39 PM [facility] documented in this encounter Patient Instructions * Patient Instructions* Lorei Vanessa NP - 07/11/2022 4:15 PM [facility] Go to ER for further evaluation of your right upper abdominal pain, left lower abdominal pain, and dizziness/pre-syncopal episodes. ON GROWER ON GROWER documented in this encounter Progress Notes * Lorie Vanessa NP - 07/11/2022 4:15 PM CST Images from the original note were not included. Subjective/Objective Patient ID: Emily Guerrier is a 26 y.o. female. Chief Complaint Follow-up (ER; 07/07 due to vomitus and severe abdominal pain; No fever; fiance also acquired same Sx; ) HPI She is an established patient who is being seen today for an ER follow-up visit, seen in ER on 07/07/2022 for upper and lower abdominal pain, vomiting, and diarrhea. Her abdominal pain began on approximately 07/04/22 with vomiting and diarrhea present for 8 hours prior to her ER arrival. At the time of her ER evaluation, she rated her RUQ pain a 8/10, states today was a burning, cramping pain, and her lower abdomen a 3/10, described as cramping. She states currently her upper abdominal pain is a 4/10, her lower abdominal pain a 6/10, states it sun feels menstrual, but reports that she hasn't had a period in years. She states her nausea is intermittent, but nothing more than normal for me. She hasn't vomited since Saturday night at work and her diarrhea has resolved. She is feeling dizzy, states she almost fell twice last night, reports presyncopal symptoms, but has not had an episode of syncope.. She states she has been drinking a lot, trying to eat more, but is now having heavy vaginal bleeding, a mixture of old blood, red blood, and clots. She states she has been shaking, but doesn't feel cold. She states her boyfriend develop nausea vomiting and diarrhea after her, but his symptoms resolved in 1 day. She states she is felt terrible all day, does not feel that she doesnot feel able to go to work tonight and does not feel that she is capable of driving herself to theER for further evaluation. 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 Abdominal Pain This is a recurrent problem. The current episode started in the past 7 days. The onset quality is sudden. The problem has been waxing and waning. The pain is located in the RUQ and epigastric region.The pain is at a severity of 3/10. The quality of the pain is burning and cramping. The abdominal pain radiates to the back. Associated symptoms include belching, diarrhea, myalgias, nausea and vomiting. Pertinent negatives include no anorexia, arthralgias, constipation, dysuria, fever, flatus, frequency, headaches, hematochezia, hematuria, melena or weight loss. The pain is aggravated by certainpositions, coughing, eating and movement. The pain is relieved by Recumbency and vomiting. Prior diagnostic workup includes CT scan. Review of Systems Constitutional: Positive for activity change, appetite change, chills (improved/resolved, doesn't feel cold, but has been shaking ) and diaphoresis (resolved). Negative for fatigue, fever and weightloss. Respiratory: Positive for cough (since COVID last year). Negative for chest tightness, shortness ofbreath and wheezing. Cardiovascular: Negative. Gastrointestinal: Positive for abdominal distention ( slightly bloated ), abdominal pain, diarrhea,nausea and vomiting. Negative for anal bleeding, anorexia, blood in stool, constipation, flatus, hematochezia and melena. Does have hemorrhoids, s/p banding, with no recent bleeding. Endocrine: Negative for polydipsia. Genitourinary: Positive for menstrual problem (PCOS) and vaginal bleeding. Negative for dysuria, frequency and hematuria. Musculoskeletal: Positive for myalgias. Negative for arthralgias. Neurological: Positive for dizziness, weakness and light-headedness. Negative for headaches. Psychiatric/Behavioral: Positive for sleep disturbance (pain waking her up from sleep). Vitals BP 112/75 (BP Location: Right arm, Patient Position: Sitting) Pulse 113 Temp 36.7 ??C (98.1 ??F) (Tympanic) Resp 14 Ht 162.6 cm (5' 4.02 ) Wt 122.1 kg (269 lb 3.2 oz) LMP (LMP Unknown) SpO2 98% BMI 46.18 kg/m?? Physical Exam Vitals and nursing note reviewed. Constitutional: General: She is not in acute distress. Appearance: Normal appearance. She is not ill-appearing, toxic-appearing or diaphoretic. Comments: Becomes dizzy and lightheaded when she attempts to go from lying to sitting position. Howboyfriend, boyfriend is going to transport to ER. HENT: Head: Normocephalic and atraumatic. Eyes: General: [...] sounds are normal. Palpations: Abdomen is soft. Tenderness: There is abdominal tenderness. There is no guarding or rebound. Comments: RUQ and LLQ tenderness upon palpation. Musculoskeletal: Right lower leg: No edema. Left lower leg: No edema. Skin: Coloration: Skin is not jaundiced or pale. Findings: No rash. Neurological: General: No focal deficit present. Mental Status: She is alert and oriented to person, place, and time. Psychiatric: Mood and Affect: Mood normal. Behavior: Behavior normal. Thought Content: Thought content normal. Assessment/Plan Return if symptoms worsen or fail to improve. Diagnoses and all orders for this visit: Right upper quadrant pain (R10.11) (Primary) Assessment & Plan: Go to ER for further evaluation of your right upper abdominal pain. Dizziness (R42) Assessment & Plan: Go to ER for further evaluation of your dizziness/pre-syncopal episodes. Left lower quadrant pain (R10.32) Assessment & Plan: Go to ER for further evaluation of your left lower abdominal pain. *This note is dictated using [employer] voice recognition software, variances in spelling and vocabulary are possible and unintentional.* Lorie Vanessa NP [facility] documented in this encounter Miscellaneous Notes * Assessment & Plan Note - Lorie Vanessa NP - 07/11/2022 5:53 PM CSTAssociated Problem(s): Left lower quadrant pain (Resolved 12/11/2022) Go to ER for further evaluation of your left lower abdominal pain. ON GROWER * Assessment & Plan Note - Lorie Vanessa NP - 07/11/2022 5:53 PM CSTAssociated Problem(s): Dizziness Go to ER for further evaluation of your dizziness/pre-syncopal episodes. ON GROWER * Assessment & Plan Note - Lorie Vanessa NP - 07/11/2022 5:53 PM CSTAssociated Problem(s): Right upper quadrant pain Go to ER for further evaluation of your right upper abdominal pain. [facility] GR[facility] documented in this encounter Plan of Treatment Not on file documented as of this encounter Visit Diagnoses Diagnosis Right upper quadrant pain- Primary Abdominal pain, right upper quadrant Dizziness Dizziness and giddiness Left lower quadrant pain Abdominal pain, left lower quadrant documented in this encounter Discontinued Medications Medication Sig Discontinue Reason Start Date End Da te traZODone (DESYREL) 50 mg tablet Take 2 tablets (100 mg total) by mouth nightly Alternate therapy 01/01/2022 07/11/2022 vit [id number] 28 mg iron- 800 mcg tablet Take 1 tablet by mouth daily Alternate therapy 01/24/2022 07/11/2022 cetirizine (ZyrTEC) 10 mg tablet Take 1 tablet (10 mg total) by mouth daily Alternate therapy 07/11/2022 sertraline (ZOLOFT) 100 mg tablet Take 200 mg by mouth daily Other 07/11/2022 documented as of this encounter Historical Medications * This list may reflect changes made after this encounter. sertraline (ZOLOFT) 100 mg tablet Take 2 tablets (200 mg total) by mouth nightly exenatide ER microspheres (Bydureon BCi) 2 mg/0.85 mL auto-injector Inject 2 mg under the skin once a week 06/25/2022 3 HYDROcodone-acetam inophen (NORCO) 5-325 mg per tablet Take 1 tablet by mouth 06/25/2022 3 traZODone (DESYREL) 150 mg tablet Take 1 tablet (150 mg total) by mouth nightly at bedtime 06/25/2022 3 added in this encounter Care Teams Jailer Relationship Specialty Start Date End Date Lorie Vanessa NP [address] [place] [id number] PCP - General Family Practice 05/29/22 No, Physician 06/08/21 documented as of this encounter
--- OUTSIDE RECORDS SUMMARY | 2024-06-06 00:36 | XMS_ITS | Encounter Summary ---
Author Organization [facility] Address [address] [place] [address] Care Team Providers Care Tailings Worker Name Role Phone No, Physician Unavailable Lorie Vanessa NP Primary Care Provider [phone] Reason for Visit * Reason Comments Abdominal Pain Pt states seen Satur day and dx with cyst on left ovary. Today at pmd and started with vaginal bleeding/cramping. Still having upper abd pain. Encounter Details Date Type Department Care Team (Late st Contact Info) Description 07/11/2022 7:06 PM TECHNICIAN TERMINAL AND REPEATER - 07/12/2022 12:55 AM [facility] Emergency [facility] Emergency Department [address] [place] [address] Can Valdez MD [address] [place] [address] [place] [address] Abdominal pain (Primary Dx); Cyst of left ovary; Hemorrhagic cyst of left ovary Discharge Disposition: Discharge to home or self care Social History Tobacco Use Types Packs/Day Years Used Date Smoking Tobacco: Never PHQ-2 Answer Date Recorded PHQ-2 Total Score (If total score is 3 or more points, staff should administer the PHQ-9) 0 04/12/2022 Comments No Sex and Gender Information Value Date Recorded Sex Assigned at Not on file Legal Sex Female 6:55 PM TECHNICIAN TERMINAL AND REPEATER Gender Identity Female 06/06/2022 7:40 AM TECHNICIAN TERMINAL AND REPEATER Sexual Orientation Not on file documented as of this encounter Last Filed Vital Signs Vital Sign Reading Time Taken Comments Blood Pressure 121/87 07/12/2022 12:35 AM TECHNICIAN TERMINAL AND REPEATER Pulse 94 07/12/2022 12:50 AM TECHNICIAN TERMINAL AND REPEATER Temperature 36.9 ??C (98.4 ??F) 07/11/2022 6:01 PM CS T Respiratory Rate 20 07/12/2022 12:5 0 AM TECHNICIAN TERMINAL AND REPEATER Oxygen Saturation 97% 07/12/2022 12: 50 AM TECHNICIAN TERMINAL AND REPEATER Inhaled Oxygen Concentration - - Weight 122.2 kg (269 lb 6.4 oz) 07/11/2022 6:01 PM TECHNICIAN TERMINAL AND REPEATER Height 162.6 cm (5' 4 ) 07/11/2022 6:01 PM TECHNICIAN TERMINAL AND REPEATER Body Mass Index 46.24 07/11/2022 6:01 PM TECHNICIAN TERMINAL AND REPEATER documented in this encounter Discharge Instructions * Discharge Instructions* Can Valdez MD - 07/12/2022 12:30 AM TECHNICIAN TERMINAL AND REPEATER Please follow up with your primary care physician, as soon as possible and try your best to make anappointment in no less than 7 days. Please take your medications, as prescribed. Please drink plenty of water or and electrolyte solution. Please return to the emergency department for worsening of your symptoms or any new problems which may arise. It is mandatory that you must follow-up, as recommended. You have received emergency care only at your visit today. This is not a substitute for ongoing care, further evaluation and treatment and therefore follow-up as directed is not optional but mandatory. You MUST follow up for further evaluation of all incidental abnormal radiographic and laboratory findings. Have your physician obtain records from this visit and address all the incidental abnormal findings. This may include final results of lab testing, cultures and final x-ray reports, which may not have been available during the time of the visit. Return immediately for any new symptoms, worsening of symptoms, or persistent symptoms. We are open17/12 and will take care of you. NICIAN TERMINAL AND REPEATER * Attachments The following attachments cannot be sent through Care Everywhere. * Ovarian Cyst (AfterCare(R) Instructions(ER/ED)) (Malaysian) * Acute Abdominal Pain (AfterCare(R) Instructions(ER/ED)) (Malaysian) documented in this encounter Medications at Time of Discharge clonazePAM (KlonoPIN) 0.5 mg tablet Take 1 tablet (0.5 mg total) by mouth daily as needed lamoTRIgine (LaMICtal) 100 mg tablet Take 1 tablet (100 mg total) by mouth nightly 12/28/2021 sertraline (ZOLOFT) 100 mg tablet Take 2 tablets (200 mg total) by mouth nightly HYDROcodone-acetamin ophen (NORCO) 5-325 mg per tabletIndications:Pa in Take 1 tablet by mouth every 6 (six) hours as needed for pain for up to 3 days 12 tablet 07/12/2022 3 albuterol HFA (PROVENTIL HFA,VENTOLIN HFA,PROAIR HFA) 90 mcg/actuation inhalerIndications:S hortness of breath Inhale 2 puffs every 4 (four) hours as needed for wheezing or shortness of breath 1 each 1 04/12/2022 3 exenatide ER microspheres (Bydureon BCise) 2 mg/0.85 mL auto-injector Inject 2 mg under the skin once a week 06/25/2022 3 norethindrone (MICRONOR) 0.35 mg tablet [...] nausea or vomiting 20 tablet 07/07/2022 3 tranexamic acid (LYSTEDA) 650 mg tablet Take 1,300 mg by mouth 3 (three) times a day 07/12/2022 3 traZODone (DESYREL) 150 mg tablet Take 1 tablet (150 mg total) by mouth nightly at bedtime 06/25/2022 3 documented as of this encounter Ordered Prescriptions Prescription Sig Dispense Quantity Refills Last Filled Start Date End Date HYDROcodone-acetam inophen (NORCO) 5-325 mg per tabletIndications: Pain Take 1 tablet by mouth every 6 (six) hours as needed for pain for up to 3 days 12 tablet 07/12/2022 07/15/2022 documented in this encounter Discharge Disposition Disposition Code Departure Means Destination Discharge to home or self care documented in this encounter ED Notes * Can Valdez MD - 07/11/2022 8:30 PM CST Chief Complaint Patient presents with Abdominal Pain Pt states seen Saturday and dx with cyst on left ovary. Today at pmd and started with vaginal bleeding/cramping. Still having upper abd pain. KAILA Guerrier is a pleasant 26 y.o. female with known medical history of left ovarian cyst who presents today with abdominal pain. Patient went to her PCP today as a routine follow-up after her recent ER visit and was sent to the ED for further workup and rule out ovarian torsion. She has a known 4 cm left ovarian cyst. She states she started bleeding vaginally today. She complains of 10/10 pain. She has not had her menstrual cycle in greater than 6 months. She has known history of PCOS. She is currently on OCPs. She has follow-up with her OBGYN out of [facility] regularly. No past medical history on file. Past Surgical History: Procedure Laterality Date BAND HEMORRHOIDECTOMY Family History Problem Relation Age [...] mcg/actuation inhaler clonazePAM (KlonoPIN) 0.5 mg tablet exenatide ER microspheres (Bydureon BCise) 2 mg/0.85 mL auto-injector HYDROcodone-acetaminophen (NORCO) 5-325 mg per tablet lamoTRIgine (LaMICtal) 100 mg tablet norethindrone (MICRONOR) 0.35 mg tablet ondansetron ODT (ZOFRAN-ODT) 8 mg disintegrating tablet pantoprazole DR (PROTONIX) 40 mg EC tablet phentermine 37.5 mg capsule promethazine (PHENERGAN) 25 mg tablet sertraline (ZOLOFT) 100 mg tablet traZODone (DESYREL) 150 mg tablet Review of Systems Review of Systems All systems reviewed and are neg or non contributory for this patients presentation today other than as stated in the HPI . Physical Exam Vitals: 07/12/22 0050 BP: Pulse: 94 Resp: 20 Temp: SpO2: 97% Physical Exam Vitals and nursing note reviewed. Constitutional: General: She is not in acute distress. Appearance: Normal appearance. She is well-developed. She is not ill-appearing or toxic-appearing. HENT: Head: Normocephalic and atraumatic. Eyes: Conjunctiva/sclera: Conjunctivae normal. Cardiovascular: Rate and Rhythm: Normal rate and regular rhythm. Heart sounds: Normal heart sounds. No murmur heard. Pulmonary: Effort: Pulmonary effort is normal. No respiratory distress. Breath sounds: Normal breath sounds. No wheezing, rhonchi or rales. Abdominal: General: There is no distension. Palpations: Abdomen is soft. Tenderness: There is no abdominal tenderness. There is no right CVA tenderness, left CVA tenderness, guarding or rebound. Negative signs include Myrick's sign and McBurney's sign. Musculoskeletal: General: Normal range of motion. Cervical back: Normal range of motion. Skin: General: Skin is warm and dry. Capillary Refill: Capillary refill takes less than 2 seconds. Neurological: General: No focal deficit present. Mental Status: She is alert and oriented to person, place, and time. Mental status is at baseline. Procedures [facility] Labs Reviewed URINALYSIS AND REFLEX TO MICROSCOPIC AND CULTURE - Abnormal Result Value Color, ur Yellow Clarity, ur Clear Specific gravity, ur 1.025 pH, urine 7.0 Protein, ur ql Trace Glucose, ur ql Negative Ketones, ur Trace Bilirubin, ur Negative Blood, ur 2+ (*) Urobilinogen, ur 0.2 Nitrite, ur Negative Leukocyte esterase, ur Negative [...] tendency for uric acid stone formation. Source: [facility] [employer].Last revised 06-06-2017 CBC WITH AUTO DIFFERENTIAL - Abnormal WBC 9.6 Hgb 14.5 Hct 43.4 Plt 385 MPV 8.3 (*) RBC 5.14 MCV 84.4 MCH 28.2 MCHC 33.4 RDW CV 11.8 RDW SD 36.0 NRBC abs 0.00 COMPREHENSIVE METABOLIC PANEL - Abnormal Sodium 139 Potassium, pl 3.9 Chloride 104 CO2 25 Anion gap 10 BUN 7 (*) Creatinine 0.60 Glucose 96 Calcium 9.2 Bilirubin, total 0.3 Protein, pl 7.6 Albumin 4.4 Alk phos 90 ALT 10 AST 14 DIFFERENTIAL AUTO - Abnormal Neutrophil abs 6.9 (*) Imm gran abs 0.0 Lymphocyte abs 2.0 Monocyte abs 0.5 Eosinophil abs 0.1 Basophil abs 0.1 Neutrophil pct 71.7 Imm gran pct 0.4 Lymphocyte pct 20.8 Monocyte pct 5.6 Eosinophil pct 0.9 Basophil pct 0.6 URINALYSIS, MICROSCOPIC ONLY - Abnormal WBC, ur 0-5 RBC, ur 6-10 (*) Epithelial cells, squamous, ur >50 (*) Mucous, ur Present (*) Culture Reflex Comment Value: Reflex conditions for urine culture (WBC >10) not met. POCT HCG, URINE - Normal HCG, ur, POC Negative Lot Number [id number] QC Backgroud Clear Acceptable QC Control Line Acceptable SEPSIS LACTATE WITH REFLEX Sepsis Lactate 1.2 LIPASE Lipase 24 EGFR eGFR 128 US Transvaginal Final Result BP 121/87 Pulse 94 Temp 36.9 ??C (98.4 ??F) (Temporal) Resp 20 Ht 162.6 cm (5' 4 ) Wt 122.2 kg (269 lb 6.4 oz) LMP (LMP Unknown) Comment: PCOS SpO2 97% BMI 46.24 kg/m?? MDM Medical records reviewed. Vitals on arrival show no acute process. Labs are unremarkable - hgb is stable. CMP shows no acute process. Lactic is negative. UA is contaminated and shows blood, however this is likely from her menstrual cycle. I reviewed her recent CT abd/pelvis and her recent transvaginal US. I had a lengthy discussion with the patient that I do not clinically think this is ovarian torsion and her pain is likely from her hemorrhagic cyst. Patient is concerned this is torsion and states her PCP sent her in to rule out torsion. Given hx of known 4cm left ovarian cyst, I called in the remote sensing technologist from home for repeat TVUS.No torsion - hemorrhagic cyst is decreased in size. Her abd is not peritoneal. I discussed with her the need to f/u with her high pressure firer. Pt is visibly frustrated and states she won'tbe able to see her high pressure firer because she is out of town. I offered her referral to a new high pressure firer with this system but the patient adamantly declines. I offered her pain medications but she states they just make me sick . After a lengthy discussion, pt agreed to take pain medications. Pt will be discharged with pain medications and plan to f/u with her pcp and high pressure firer. Vitals stable on discharge. Clinical Impression: Abdominal pain Cyst of left ovary Hemorrhagic cyst of left ovary Can Valdez MD 07/12/22 0059 NICIAN TERMINAL AND REPEATER NICIAN TERMINAL AND REPEATER NICIAN TERMINAL AND REPEATER documented in this encounter Plan of Treatment Not on file documented as of this encounter Procedures Procedure Name Priority Date/Time Associated Diagnosis Comments US TRANSVAGINAL ED 07/11/2022 9:50 PM TECHNICIAN TERMINAL AND REPEATER POCT HCG, URINE STAT 07/11/2022 7:18 PM TECHNICIAN TERMINAL AND REPEATER URINALYSIS AND REFLEX TO MICROSCOPIC AND CULTURE STAT 07/11/2022 7:09 PM TECHNICIAN TERMINAL AND REPEATER URINALYSIS, MICROSCOPIC ONLY STAT 07/11/2022 7:09 PM TECHNICIAN TERMINAL AND REPEATER SEPSIS LACTATE WITH REFLEX STAT 07/11/2022 6:50 PM TECHNICIAN TERMINAL AND REPEATER EGFR STAT 07/11/2022 6:50 PM TECHNICIAN TERMINAL AND REPEATER DIFFERENTIAL AUTO STAT 07/11/2022 6:5 0 PM TECHNICIAN TERMINAL AND REPEATER CBC WITH AUTO DIFFERENTIAL STAT 07/11/2022 6:50 PM TECHNICIAN TERMINAL AND REPEATER LIPASE STAT 07/11/2022 6:50 PM TECHNICIAN TERMINAL AND REPEATER COMPREHENSIVE METABOLIC PANEL STAT 07/11/2022 6:50 PM TECHNICIAN TERMINAL AND REPEATER documented in this encounter Results * US Transvaginal (07/11/2022 9:50 PM TECHNICIAN TERMINAL AND REPEATER) Anatomical Region Laterality Modality Pelvis N/A Ultrasound 07/11/2022 11:0 3 PM TECHNICIAN TERMINAL AND REPEATER Narrative 07/11/2022 11:10 PM TECHNICIAN TERMINAL AND REPEATER EXAM DESCRIPTION: ?? US TRANSVAGINAL REASON FOR STUDY: ?? Pelvic pain since last night. ??Left ovarian cyst on prior ultrasound. ??Vaginal bleeding today. TECHNIQUE: Grayscale ultrasound of the pelvic contents was performed with ?? transvaginal ??transducer. ?? COMPARISON: ?? Pelvic ultrasound 07/07/2022 FINDINGS: UTERUS: ?? The uterus is anteverted. ??The uterus is ??homogenous ??in echotexture and measures ??2.7 x 3.1 x 6.7 ??cm. ??Tiny nabothian cyst in the cervix. ENDOMETRIUM: The endometrium measures ??7 mm ??in thickness. RIGHT OVARY: The right ovary measures ??1.5 x 2.4 x 3.4 ??cm. ??There is documentation of color Doppler flow in the right ovary. ??Multiple subcentimeter incidental follicular cysts. LEFT OVARY: The left ovary measures ?cm. ??There is documentation of color Doppler flow in the left ovary. ??Complex cyst containing debris, likely a hemorrhagic cyst in the left ovary measures 1.6 x 2.0 x 2.3 cm. ??This previously measured 2.8 x 4.2 x 4.5 cm on ultrasound 07/07/2022. ??Multiple additional tiny follicular cysts in the left ovary. PELVIC FLUID: ?? Small amount of free fluid in the cul-de-sac and in the left adnexa. OTHER: ?? No other significant findings. IMPRESSION: ?? Blood flow is noted in both ovaries on Doppler. Interval decrease in size of probable hemorrhagic cyst in the left ovary now measuring 2.3 cm in maximal dimension, previously 4.5 cm. Incidental small follicular cysts in both ovaries. Small amount of free fluid in the cul-de-sac and in the left adnexa, could be physiologic. THIS IS AN ELECTRONICALLY VERIFIED FINAL REPORT 07/11/2022 11:10 PM - Electronically signed by ??Shawn Renteria M.D. DL: GARRET D: ??07/11/2022 11:10 PM T: ??07/11/2022 11:10 PM Report ID: [id number] Reading Location: ??[id number] Procedure Note Shawn Renteria MD - 07/11/2022 EXAM DESCRIPTION: US TRANSVAGINAL REASON FOR STUDY: Pelvic pain since last night. Left ovarian cyst onprior ultrasound. Vaginal bleeding today. TECHNIQUE: Grayscale ultrasound of the pelvic contents was performed with transvaginal transducer. COMPARISON: Pelvic ultrasound 07/07/2022 FINDINGS: UTERUS: The uterus is anteverted. The uterus is homogenousin echotexture and measures 2.7 x 3.1 x 6.7 cm. Tiny nabothian cyst in the cervix. ENDOMETRIUM: The endometrium measures 7 mm in thickness. RIGHT OVARY: The right ovary measures 1.5 x 2.4 x 3.4 cm. There is documentation of color Doppler flow in the right ovary. Multiple subcentimeter incidental follicular cysts. LEFT OVARY: The left ovary measures cm. There is documentation ofcolor Doppler flow in the left ovary. Complex cyst containing debris, likely a hemorrhagic cyst in the left ovary measures 1.6 x 2.0 x 2.3 cm. This previously measured 2.8 x 4.2 x 4.5 cm on ultrasound 07/07/2022. Multiple additional tiny follicular cysts in the left ovary. PELVIC FLUID: Small amount of free fluid in the cul-de-sac and in theleft adnexa. OTHER: No other significant findings. IMPRESSION: Blood flow is noted in both ovaries on Doppler. Interval decrease in size of probable hemorrhagic cyst in the left ovarynow measuring 2.3 cm in maximal dimension, previously 4.5 cm. Incidental small follicular cysts in both ovaries. Small amount of free fluid in the cul-de-sac and in the left adnexa, couldbe physiologic. THIS IS AN ELECTRONICALLY VERIFIED FINAL REPORT 07/11/2022 11:10 PM - Electronically signed by Shawn Renteria M.D. DL: DL Report ID: [id number] Reading Location: [id number] Can Valdez MD IMG US PROCEDURES Final R esult * POCT hCG, urine (07/11/2022 7:18 PM TECHNICIAN TERMINAL AND REPEATER) Pathologist [facility] HCG, ur, POC Negative Lot Number [id number] QC Backgroud Clear Acceptable QC Control Line Acceptable Urine 07/11/2022 7:18 PM TECHNICIAN TERMINAL AND REPEATER us Charmaine LEYVA POINT OF CARE TEST ORDERABL ES Final Result * (ABNORMAL) Urinalysis, microscopic only (07/11/2022 7:09 PM TECHNICIAN TERMINAL AND REPEATER) Pathologist [facility] WBC, ur 0-5 0 - 5 /HPF [facility] Comment:Testing performed by : [facility], [address] [place] [address]., [id number] RBC, ur 6-10(A) 0 - 2 /HPF [facility] Comment:Testing performed by : [address] [address] Epithelial cells, squamous, ur >50(A) 0 - 5 /HPF [facility] Comment:Testing performed by : [address] [address] Mucous, ur Present(A) [facility] Comment:Testing performed by : [address] [address] Culture Reflex Comment Reflex conditions for urine culture (WBC >10) not met. [facility] Comment:Testing performed by : [address] [id number] Urine 07/11/2022 7:09 PM TECHNICIAN TERMINAL AND REPEATER 07/11/2022 7:12 PM TECHNICIAN TERMINAL AND REPEATER us Charmaine LEYVA LAB URINE ORDERABLES Final Result [facility] Department [place] [address] * (ABNORMAL) Urinalysis reflex to microscopic and culture Urine (07/11/2022 7:09 PM TECHNICIAN TERMINAL AND REPEATER) Color, ur Yellow Yellow FRAN Comment:Testing performed by : [address] [address] Clarity, ur Clear Clear FRAN Comment:Testing performed by : [address] [address] Specific gravity, ur 1.025 1.003 - 1.030 FRAN Comment:Testing performed by : [address] [address] pH, urine 7.0 FRAN Comment:Testing performed by : [address] [address] Protein, ur ql Trace Negative FRAN Comment:Testing performed by : [address] [address] Glucose, ur ql Negative Negative FRAN Comment:Testing performed by : [address] [address] Ketones, ur Trace Negative [facility] Comment:Testing performed by : [address] [address] Bilirubin, ur Negative Negative FRNA Comment:Testing performed by : [address], [place]., [address] Blood, ur 2+(A) Negative FRAN Comment:Testing performed by : [address], [place]., [address] Urobilinogen, ur 0.2 <2.0 mg/dL FRAN Comment:Testing performed by : [address], [place]., [address] Nitrite, ur Negative Negative FRAN Comment:Testing performed by : [address] [address] Leukocyte esterase, ur Negative Negative FRAN Comment:Testing performed by : [address], [place]., [address] UA reflex comment Reflex to microscopic UA will be performed. FRAN Comment:Testing performed by : [address] [address] Urine 07/11/2022 7:09 PM TECHNICIAN TERMINAL AND REPEATER 07/11/2022 7:12 PM TECHNICIAN TERMINAL AND REPEATER Narrative FRAN - 07/11/2022 7:31 PM TECHNICIAN TERMINAL AND REPEATER ?? Urine pH is affected by diet, medications, systemic acid-base disturbances, and renal tubular function. ??pH may affect urinary stone formation. ??For example, urine pH below 6.0 may help reduce the tendency for calcium phosphate stones and pH greater than 6.0 may reduce the tendency for uric acid stone formation. Source: [employer]. Last revised 06-06-2017 us Charmaine LEYVA LAB MICROBIOLOGY - GENERAL ORDERABLES Final Result FRAN [address] [facility] Department [place] [address] * eGFR (07/11/2022 6:50 PM TECHNICIAN TERMINAL AND REPEATER) [facility] eGFR 128 mL/min/1. 73 m2 [facility] [...] was last reviewed 2021. Testing performed by: [address] [address] Blood 07/11/2022 6:50 PM TECHNICIAN TERMINAL AND REPEATER 07/11/2022 7:01 PM TECHNICIAN TERMINAL AND REPEATER us Charmaine LEYVA LAB BLOOD ORDERABLES Final Result Performing Organization Address City/State/[facility] Co de Phone Number FRAN [address] [facility] Department [place] [address] * (ABNORMAL) Differential, auto (07/11/2022 6:50 PM TECHNICIAN TERMINAL AND REPEATER) Neutrophil abs 6.9(H) 1.7 - 6.5 K/cumm [facility] Comment:Testing performed by : [address] [address] Imm gran abs 0.0 0.0 - 0.1 K/cumm [facility] Comment:Testing performed by : [address] [address] Lymphocyte abs 2.0 0.8 - 3.3 K/cumm [facility] Comment:Testing performed by : [address] [address] Monocyte abs 0.5 0.2 - 0.8 K/cumm [facility] Comment:Testing performed by : [address], [place]., [address] Eosinophil abs 0.1 0.0 - 0.5 K/cumm [facility] Comment:Testing performed by : [address], [place]., [address] Basophil abs 0.1 0.0 - 0.1 K/cumm [facility] Comment:Testing performed by : [address] [address] Neutrophil pct 71.7 % [facility] Comment: Interpretive Data Percent cell count reference ranges are not reported, since discordance with absolute values may lead to misinterpretation of CBC data. Current Interpretive Data was last revised on 2017. Testing performed by: [address] [address] Imm gran pct 0.4 % [facility] Comment: Interpretive Data Percent cell count reference ranges are not reported, since discordance with absolute values may lead to misinterpretation of CBC data. Current Interpretive Data was last revised on 2017. Testing performed by: [address] [address] Lymphocyte pct 20.8 % [facility] Comment: Interpretive Data Percent cell count reference ranges are not reported, since discordance with absolute values may lead to misinterpretation of CBC data. Current Interpretive Data was last revised on 2017. Testing performed by: [address] [address] Monocyte pct 5.6 % [facility] Comment: Interpretive Data Percent cell count reference ranges are not reported, since discordance with absolute values may lead to misinterpretation of CBC data. Current Interpretive Data was last revised on 2017. Testing performed by: [address] [address] Eosinophil pct 0.9 % [facility] Comment: Interpretive Data Percent cell count reference ranges are not reported, since discordance with absolute values may lead to misinterpretation of CBC data. Current Interpretive Data was last revised on 2017. Testing performed by: [address] [address] Basophil pct 0.6 % FRAN Comment: Interpretive Data Percent cell count reference ranges are not reported, since discordance with absolute values may lead to misinterpretation of CBC data. Current Interpretive Data was last revised on 2017. Testing performed by: [address] [address] Blood 07/11/2022 6:50 PM TECHNICIAN TERMINAL AND REPEATER 07/11/2022 7:01 PM TECHNICIAN TERMINAL AND REPEATER Charmaine LEYVA LAB BLOOD ORDERABLES Final Result Performing Organization Address City/[facility]/ZIP Co de Phone Number [address] [employer] [place] [address] * Lipase (07/11/2022 6:50 PM TECHNICIAN TERMINAL AND REPEATER) Lipase 24 10 - 99 Units/L FRAN Comment:Testing performed by : [address] [address] Blood 07/11/2022 6:50 PM TECHNICIAN TERMINAL AND REPEATER 07/11/2022 7:01 PM TECHNICIAN TERMINAL AND REPEATER us Charmaine LEYVA LAB BLOOD ORDERABLES Final Result Performing Organization Address City/[facility]/ZIP Co de Phone Number [address] [address] * Sepsis Lactate w/ Reflex (07/11/2022 6:50 PM TECHNICIAN TERMINAL AND REPEATER) Sepsis Lactate 1.2 0.7 - 2.0 mmol/L FRAN Comment:Testing performed by : [address] [address] Blood 07/11/2022 6:50 PM TECHNICIAN TERMINAL AND REPEATER 07/11/2022 7:01 PM TECHNICIAN TERMINAL AND REPEATER us Charmaine LEYVA LAB BLOOD ORDERABLES Final Result [facility]AN [address] [facility] Department [place] [address] * (ABNORMAL) Comprehensive metabolic panel (07/11/2022 6:50 PM TECHNICIAN TERMINAL AND REPEATER) Sodium 139 135 - 145 mmol/L FRAN Comment:Testing performed by : [address] [address] Potassium, pl 3.9 3.3 - 4.9 mmol/L FRAN Comment:Testing performed by : [address] [address] Chloride 104 97 - 110 mmol/L FRAN Comment:Testing performed by : [address] [address] CO2 25 22 - 32 mmol/L FRAN Comment:Testing performed by : [address] [address] Anion gap 10 2 - 15 mmol/L FRAN Comment:Testing performed by : [address] [address] BUN 7(L) 8 - 25 mg/dL FRAN Comment:Testing performed by : [address] [address] Creatinine 0.60 0.60 - 1.10 mg/dL FRAN Comment:Testing performed by : [address] [address] Glucose 96 70 - 199 mg/dL FRAN Comment: Interpretive [...] was last revised 2022. Testing performed by: [address] [address] Calcium 9.2 8.5 - 10.3 mg/dL FRAN Comment:Testing performed by : [address] [address] Bilirubin, total 0.3 0.1 - 1.2 mg/dL FRAN Comment:Testing performed by : [address] [address] Protein, pl 7.6 6.5 - 8.5 g/dL FRAN Comment:Testing performed by : [address] [address] Albumin 4.4 3.5 - 5.0 g/dL FRAN Comment:Testing performed by : [address] [address] Alk phos 90 40 - 130 Units/L FRAN Comment:Testing performed by : [address] [address] ALT 10 7 - 45 Units/L FRAN Comment:Testing performed by : [address] [address] AST 14 10 - 45 Units/L FRAN Comment:Testing performed by : [address] [address] Blood 07/11/2022 6:50 PM TECHNICIAN TERMINAL AND REPEATER 07/11/2022 7:01 PM TECHNICIAN TERMINAL AND REPEATER us Charmaine LEYVA LAB BLOOD ORDERABLES Final Result [facility] [address] [facility] Department of Laboratories [place], [place] [id number] * (ABNORMAL) CBC with auto differential (07/11/2022 6:50 PM TECHNICIAN TERMINAL AND REPEATER) [facility] WBC 9.6 3.8 - 9.9 K/cumm FRAN Comment:Testing performed by : [address] [address] Hgb 14.5 11.9 - 15.5 g/dL FRAN Comment:Testing performed by : [address], [address] Hct 43.4 35.6 - 45.5 % FRAN Comment:Testing performed by : [address], [address] Plt 385 150 - 400 K/cumm FRAN Comment:Testing performed by : [address] [address] MPV 8.3(L) 9.1 - 12.3 fL FRAN Comment:Testing performed by : [address], [address] RBC 5.14 3.90 - 5.20 M/cumm FRAN Comment:Testing performed by : [address], [address] MCV 84.4 81.3 - 96.4 fL FRAN Comment:Testing performed by : [address], [address] MCH 28.2 27.1 - 33.3 pg FRAN Comment:Testing performed by : [address], [address] MCHC 33.4 32.3 - 35.7 g/dL FRAN Comment:Testing performed by : [address], [address] RDW CV 11.8 11.1 - 14.9 % FRAN Comment:Testing performed by : [address], [address] RDW SD 36.0 35.7 - 48.1 fL FRAN Comment:Testing performed by : [address], [address] NRBC abs 0.00 0.00 - 0.01 K/cumm FRAN Comment:Testing performed by : [address], [address] Blood 07/11/2022 6:50 PM TECHNICIAN TERMINAL AND REPEATER 07/11/2022 7:01 PM TECHNICIAN TERMINAL AND REPEATER us Charmaine LEYVA LAB BLOOD ORDERABLES Final Result [facility]AN HAYS [address] [facility] Department [place] [address] documented in this encounter Visit Diagnoses Diagnosis Abdominal pain- Primary Abdominal pain, unspecified site Cyst of left ovary Other and unspecified ovarian cyst Hemorrhagic cyst of left ovary documented in this encounter Administered Medications Inactive Administered Medications - up to 3 most recent administrations Medication Order MAR Action Action Date Dose Rate Site HYDROmorphone (DILAUDID) injection 0.5 mg 0.5 mg, intravenous, Administer over 2 Minutes, Once, On Irene 07/12/22 at 0025, For 1 dose Given 07/12/2022 12:34 AM TECHNICIAN TERMINAL AND REPEATER 0.5 mg ketorolac (TORADOL) 30 mg/mL (1 mL) injection 15 mg 15 mg, intravenous, Once, On Sat07/11/22 at 2028, For 1 dose, For Adult IV push, administer over 15 seconds Given 07/11/2022 8:37 PM TECHNICIAN TERMINAL AND REPEATER 15 mg morphine injection 4 mg 4 mg, intravenous, Administer over 4 Minutes, Once, On Sat07/11/22 at 8, For 1 dose Given 07/11/2022 9:20 PM TECHNICIAN TERMINAL AND REPEATER 4 mg ondansetron (ZOFRAN) injection 4 mg 4 mg, intravenous, Administer over 2 Minutes, Once, On Sat07/11/22 at 2028, For 1 dose Given 07/11/2022 8:37 PM TECHNICIAN TERMINAL AND REPEATER 4 mg sodium chloride 0.9% bolus 1,000 mL 1,000 mL, intravenous, at 1,000 mL/hr, Administer over 1 Hours, Once, On Sat07/11/22 at 2028, For 1 dose New Bag 07/11/2022 8:37 PM TECHNICIAN TERMINAL AND REPEATER 1,000 mL 100 0 mL/hr documented in this encounter Discontinued Medications Medication Sig Discontinue Reason Start Date End Da te HYDROcodone-acetaminophe n (NORCO) 5-325 mg per tablet Take 1 tablet by mouth 06/25/2022 07/12/2022 documented as of this encounter Active and Recently Administered Medications Times are shown in TECHNICIAN TERMINAL AND REPEATER. Scheduled Medication Order 07/10/2022 07/11/2022 07/12/2022 HYDROmorphone (DILAUDID) injection 0.5 mg (COMPLETED) 0.5 mg, intravenous, Administer over 2 Minutes, Once, On [facility] 07/12/22 at 0025, For 1 dose 0034 (Given - Provid er: Teresa Bryant, KAYLEY) ketorolac (TORADOL) 30 mg/mL (1 mL) injection 15 mg (COMPLETED) 15 mg, intravenous, Once, On Sat07/11/22 at 2028, For 1 dose, For Adult IV push, administer over 15 seconds 2036 (Given - Provider: Shankar Paulino RN) morphine injection 4 mg (COMPLETED) 4 mg, intravenous, Administer over 4 Minutes, Once, On Sat07/11/22 at 2117, For 1 dose 2119 (Given - Provider: Teresa Bryant, RN) ondansetron (ZOFRAN) injection 4 mg (COMPLETED) 4 mg, intravenous, Administer over 2 Minutes, Once, On Sat07/11/22 at 2028, For 1 dose 2036 (Given - Provider: Shankar Paulino RN) sodium chloride 0.9% bolus 1,000 mL (COMPLETED) 1,000 mL, intravenous, at 1,000 mL/hr, Administer over 1 Hours, Once, On Sat07/11/22 at 2028, For 1 dose 2036 (New Bag - Provider: Shankar Paulino RN)2120 (Stopped - Provider: Teresa Bryant, KAYLEY) documented in this encounter Care Teams Tailings Worker Relationship Specialty Start Date End Date Lorie Vanessa NP [address] [place] [address] PCP - General Family Practice 05/29/22 No, Physician 06/08/21 documented as of this encounter
--- OUTSIDE RECORDS SUMMARY | 2024-06-06 00:36 | XMS_ITS | Encounter Summary ---
Author Organization [facility] Address [address] [facility] [address] [place] [address] Care Team Providers Care Film Casting Operator Name Role Phone No, Physician Unavailable Lorie Vaenssa NP Primary Care Provider [phone] Reason for Referral * Cardiology (Routine) - Closed Specialty Diagnoses / Procedures Referred By Cyn burnett Referred To Contact Diagnoses Dizziness Tachycardia, unspecified GALEANO (dyspnea on exertion) Procedures Extended/Assisted Holter Patch (>48 hours up to 7 days) Laurent Bueno MD Phone: tel: fax: [facility] Referral ID Status Reason Start Date Expiration Date Visits Re quested Visits Authorized [id number] Closed 07/13/2022 08/12/2023 1 1 LBOARD OPERATOR * Cardiology (Routine) - Closed Specialty Diagnoses / Procedures Referred By Cyn burnett Referred To Contact Diagnoses Orthostatic hypotension Dizziness Tachycardia, unspecified GALEANO (dyspnea on exertion) Family history of CHF (congestive heart failure) Procedures Stress Treadmill Test Laurent Bueno MD Phone: tel: fax: [address] [phone] Referral ID Status Reason Start Date Expiration Date Visits Re quested Visits Authorized [id number] Closed 07/13/2022 08/12/2023 1 1 LBOARD OPERATOR * Cardiology (Routine) - Closed Specialty Diagnoses / Procedures Referred By Contac t Referred To Contact Diagnoses Orthostatic hypotension Dizziness Tachycardia, unspecified GALEANO (dyspnea on exertion) Family history of CHF (congestive heart failure) Procedures Transthoracic Echo (TTE) Complete W Doppler/CF Laurent Bueno MD Phone: tel: fax: [address] [phone] Referral ID Status Reason Start Date Expiration Date Visits Re quested Visits Authorized [id number] Closed 07/13/2022 08/12/2023 1 1 LBOARD OPERATOR Reason for Visit * Reason Comments Dizziness Rapid Heart Rate * Consultation (Routine) - Closed Specialty Diagnoses / Procedures Referred By Contac t Referred To Contact Cardiology Diagnoses Orthostatic hypotension Dizziness Tachycardia, unspecified Lorie Vanessa, FISCAL SPECIALIST [address] [address] Phone: tel: fax: Laurent Bueon MD Phone: tel: fax: Referral ID Status Reason Start Date Expiration Date V isits Requested Visits Authorized [id number] Closed Specialty Services Required 04/12/2022 05/12/2023 12 12 Encounter Details Date Type Department Care Team (Late st Contact Info) Description 07/13/2022 9:00 AM PANELBOARD OPERATOR Office Visit [facility] Cardiology [address] [phone] Laurent Bueno MD [address] [place] [address] [place] [id number] GALEANO (dyspnea on exertion) (Primary Dx); Orthostatic hypotension; Dizziness; Tachycardia, unspecified; Family history of CHF (congestive heart failure) [...] on file Legal Sex Female 6:55 PM PANELBOARD OPERATOR Gender Identity Female 06/06/2022 7:40 AM PANELBOARD OPERATOR Sexual Orientation Not on file documented as of this encounter Last Filed Vital Signs Vital Sign Reading Time Taken Comments Blood Pressure 98/72 07/13/2022 9:10 AM PANELBOARD OPERATOR Pulse 82 07/13/2022 9:10 AM PANELBOARD OPERATOR Temperature - - Respiratory Rate - - Oxygen Saturation 99% 07/13/2022 9:10 AM PANELBOARD OPERATOR Inhaled Oxygen Concentration - - Weight 123.6 kg (272 lb 6.4 oz) 07/13/2022 9:10 AM PANELBOARD OPERATOR Height - - Body Mass Index 46.76 07/11/2022 6:01 PM PANELBOARD OPERATOR documented in this encounter Ordered Prescriptions Prescription Sig Dispense Quantity Refills Last Filled Start Date End Date magnesium oxide (MAG-OX) 400 mg (241.3 mg elemental magnesium) tablet Take 1 tablet (400 mg total) by mouth daily 90 tablet 07/13/2022 3 propranolol LA (INDERAL LA) 60 mg 24 hr capsule Take 1 capsule (60 mg total) by mouth daily 30 capsule 11 07/13/2022 4 documented in this encounter Progress Notes * Laurent Bueno MD - 07/13/2022 9:00 AM CST Images from the original note were not included. Patient Name: Teresa Cervantes : 1995 Date of Service: 07/13/2022 Referring: Lorie Vanessa NP CHIEF COMPLIANT: Chief Complaint Patient presents with Dizziness Rapid Heart Rate Dear Lorie Vanessa NP HPI I had the pleasure of seeing your patient for evaluation of cardiac etiologies of dyspnea on exertion. Very pleasant 27-year-old with no previous cardiac history. Noticing NYHA class 2-3 dyspnea withactivity which improved with rest. Frequent episodes of tachycardia. Family history of Congestive Heart Failure. No recent COVID. Frequent episodes of orthostatic dizziness with concern for postural orthostatic tachycardia syndrome which have been initially improved on current dose of propranolol but noticing increasing palpitations. No overt syncope. Denies any chest pain or pressure at this juncture. Denies any DVT/PE. Cardiac diagnostics: Twelve lead EKG independently reviewed, sinus rhythm, low precordial voltages, no ST changes or Q-waves, normal QTC and QRS duration ASSESSMENT: Diagnoses and all orders for this visit: GALEANO (dyspnea on exertion) (Primary) - Transthoracic Echo (TTE) Complete W Doppler/CF; Future - Stress Treadmill Test; Future - TSH reflex to free T4; Future - Extended/Assisted Holter Patch (>48 hours up to 7 days); Future Orthostatic hypotension - Ambulatory referral to Cardiology - ECG 12 lead - Transthoracic Echo (TTE) Complete W Doppler/CF; Future - Stress Treadmill Test; Future - TSH reflex to free T4; Future Dizziness - Ambulatory referral to Cardiology - ECG 12 lead - Transthoracic Echo (TTE) Complete W Doppler/CF; Future - Stress Treadmill Test; Future - TSH reflex to free T4; Future - Extended/Assisted Holter Patch (>48 hours up to 7 days); Future Tachycardia, unspecified - Ambulatory referral to Cardiology - ECG 12 lead - Transthoracic Echo (TTE) Complete W Doppler/CF; Future - Stress Treadmill Test; Future - TSH reflex to free T4; Future - Extended/Assisted Holter Patch (>48 hours up to 7 days); Future Family history of CHF (congestive heart failure) - Transthoracic Echo (TTE) Complete W Doppler/CF; Future - Stress Treadmill Test; Future - TSH reflex to free T4; Future Other orders - propranolol LA (INDERAL LA) 60 mg 24 hr capsule; Take 1 capsule (60 mg total) by mouth daily - magnesium oxide (MAG-OX) 400 mg (241.3 mg elemental magnesium) tablet; Take 1 tablet (400 mg total) by mouth daily PLAN: In light of symptoms of dyspnea on exertion with family history of congestive heart failure: Obtainechocardiogram to assess for structural/valvular heart disease. Due to increasing episodes of palpitations with dizziness, obtain extended Holter monitor to assessarrhythmogenic etiology. Counseled hydration, postural precautions, lower extremity compression stockings and limiting caffeine/alcohol. Continue current dose of propranolol. Start magnesium oxide 400 mg daily. Based on results of echocardiogram, proceed with treadmill stress test to assess for exercise-induced arrhythmias and to exclude coronary artery disease. Diet/exercise will be beneficial for long-term cardiovascular risk reduction in the setting of morbid obesity. Will plan close interval follow-up based on results of above-mentioned evaluation to consider tilt-table testing if indicated PROBLEM LIST: Patient Active Problem List Diagnosis PCOS (polycystic ovarian syndrome) Nausea Ingrown right big toenail Frequent infections Upper abdominal pain Tachycardia, unspecified Dizziness Orthostatic hypotension Hemorrhoids Morbid obesity with BMI of 45.0-49.9, adult (HCC) GALEANO (dyspnea on exertion) Preop cardiovascular exam Amenorrhea Need for vaccination Abrasion of neck Right upper quadrant pain Left lower quadrant pain Family history of CHF (congestive heart failure) Constipation Diarrhea Gastroesophageal reflux disease without esophagitis PAST MEDICAL HISTORY:History reviewed. No pertinent past medical history. FAMILY HISTORY: family history includes COPD in her mother; Diabetes in her maternal grandmother; Heart failure in her brother; Hypertension in her mother; Mental illness in her maternal grandmother;Squamous cell carcinoma in her father. SOCIAL HISTORY reports that she has never smoked. She does not have any smokeless tobacco history on file. No alcohol history on file. Allergies Allergen Reactions Adhesive Itching and Rash Fluoxetine Mental status changes Nitrofurantoin Itching Current Outpatient Medications on File Prior to Visit Medication Sig Dispense Refill albuterol HFA (PROVENTIL HFA,VENTOLIN HFA,PROAIR HFA) 90 mcg/actuation inhaler Inhale 2 puffs every4 (four) hours as needed for wheezing or shortness of breath 1 each 1 clonazePAM (KlonoPIN) 0.5 mg tablet Take 1 tablet (0.5 mg total) by mouth daily as needed lamoTRIgine (LaMICtal) 100 mg tablet Take 1.5 tablets (150 mg total) by mouth daily 1/2 in AM and 1in PM norethindrone (MICRONOR) 0.35 mg tablet Take 1 tablet (0.35 mg total) by mouth daily pantoprazole DR (PROTONIX) 40 mg EC tablet Take 1 tablet (40 mg total) by mouth 2 (two) times a day60 tablet 0 promethazine (PHENERGAN) 25 mg tablet Take 1 tablet (25 mg total) by mouth every 6 (six) hours as needed for nausea or vomiting 20 tablet 0 sertraline (ZOLOFT) 100 mg tablet Take 2 tablets (200 mg total) by mouth nightly traZODone (DESYREL) 150 mg tablet Take 1 tablet (150 mg total) by mouth nightly at bedtime exenatide ER microspheres (Bydureon BCise) 2 mg/0.85 mL auto-injector Inject 2 mg under the skin once a week (Patient not taking: Reported on 08/23/2022) No current facility-administered medications on file prior to visit. REVIEW OF SYMPTOMS A comprehensive 12 point review of systems was performed and is negative except as mentioned in history of present illness. PHYSICAL EXAMINATION BP 98/72 Pulse 82 Wt 123.6 kg (272 lb 6.4 oz) LMP (LMP Unknown) Comment: PCOS SpO2 99% BMI 46.76 kg/m?? Body mass index is 46.76 kg/m??. General: No acute distress, well-appearing Eyes: DEBI/EOMI, Conjuctiva Clear Neck: Supple, nontender Respiratory: Clear to auscultation bilaterally, no wheezing or rales Cardiovascular: S1-S2 normal, no carotid bruit Gastrointestinal: soft, non-tender abdomen Extremities: no cyanosis or clubbing. Musculoskeletal: no obvious joint deformities Skin: no obvious rash or bruising Psychiatric: normal affect, normal mood Neurologic: awake/alert, no focal deficits On behalf of [facility] Cardiology at [facility], we appreciate the opportunity to participate in the care of your patient. Please feel free to contact us if if we can provide any further assistance in this patient's care. Laurent Bueno MD, [facility] Cardiology, [facility] Maribellh Auto Damage Trainee completed by using M*Modal Fluency Direct speaking software, inadvertent staff trainer variances may occur. documented in this encounter Plan of Treatment Not on file documented as of this encounter Procedures Procedure Name Priority Date/Time Associated Diagnosis Comments ECG 12-LEAD Routine 07/13/2022 Orthostatic hypotension Dizziness Tachycardia, unspecified documented in this encounter Results * TSH reflex to free T4 (08/23/2022 10:32 AM CDT) TSH 1.94 0.30 - 4.20 mcIUnit/mL [facility]AN HAYS Blood 08/23/2022 10:3 2 AM CDT 08/23/2022 10:49 AM CDT us Laurent Bueno MD LAB BLOOD ORDERABLES Final Resul t FRAN [address] [facility] Department [place] [address] * Stress Treadmill Test (08/06/2022 2:55 PM CDT) Anatomical Region Laterality Modality Ultrasound Narrative 08/06/2022 4:42 PM CDT Patient: Teresa Cervantes is a 26 y.o. female. MR#: [id number] CLINICAL INDICATION: ??Orthostatic hypotension, dyspnea on exertion, palpitations, family history of Congestive Heart Failure SITE: ??[facility] STUDY DESCRIPTION: After reviewing benefits, risks [...] per minute and blood pressure 138/78 mmHg Laurent Bueno MD, [facility] Cardiology Copy to: Lorie Vanessa NP ?? us Laurent Bueno MD CV STRESS PROCEDURES Final Resul t * TRANSTHORACIC ECHO (TTE) COMPLETE W DOPPLER/CF WO CONTRAST (08/06/2022 1:15 PM CDT) Anatomical Region Laterality Modality Ultrasound 08/06/2022 1:15 PM CDT Narrative 08/08/2022 4:26 PM CDT ? Adult Echocardiogram + ----- -------+ :Name: TERESA CERVANTES ??Study Date: 08/06/2022 ?Status: MHB ?: : [...] Date: 08/06/2022 Status: MHB: : [address]^MHBHeight: 64in : : Weight: 272lbBP: 120/82 [...] by: Laurent Bueno MD 08/08/2022 04:26 PM Laurent Bueno MD CV ECHO PROCEDURES Final Result * Extended/Assisted Holter Patch (>48 hours up to 7 days) (07/17/2022 2:43 PM PANELBOARD OPERATOR) Anatomical Region Laterality Modality Electrocardiogra phy Narrative [...] heart rates between 85-136 beats per minute Result [facility] Laurent Bueno MD CV CARDIAC SERVICES PROCEDURES F inal Result * ECG 12 lead (07/13/2022) Result [facility] Laurent Bueno MD ECG ORDERABLES Final Result documented in this encounter Visit Diagnoses Diagnosis GALEANO (dyspnea on exertion)- Primary Other dyspnea and respiratory abnormality Orthostatic hypotension Dizziness Dizziness and giddiness Tachycardia, unspecified Family history of CHF (congestive heart failure) Family history of other cardiovascular diseases Dizziness Dizziness and giddiness Tachycardia, unspecified GALEANO (dyspnea on exertion) Other dyspnea and respiratory abnormality Orthostatic hypotension Dizziness Dizziness and giddiness Tachycardia, unspecified GALEANO (dyspnea on exertion) Other dyspnea and respiratory abnormality Family history of CHF (congestive heart failure) Family history of other cardiovascular diseases Orthostatic hypotension Dizziness Dizziness and giddiness Tachycardia, unspecified GALEANO (dyspnea on exertion) Other dyspnea and respiratory abnormality Family history of CHF (congestive heart failure) Family history of other cardiovascular diseases documented in this encounter Historical Medications * This list may reflect changes made after this encounter. tranexamic acid (LYSTEDA) 650 mg tablet Take 1,300 mg by mouth 3 (three) times a day 07/12/2022 08/21/2022 added in this encounter Orders Outpatient Referral Count Last Ordered Date Fir st Ordered Date AMB REFERRAL TO CARDIOLOGY 1 07/13/2022 documented in this encounter Care Teams Film Casting Operator Relationship Specialty Start Date End Date Lorie Vanessa NP [address] [place] [id number] PCP - General Family Practice 05/29/22 No, Physician 06/08/21 documented as of this encounter
--- OUTSIDE RECORDS SUMMARY | 2024-06-06 00:36 | XMS_ITS | Encounter Summary ---
Author Organization [facility] Address [address] [facility] [address] [place] [address] Care Team Providers Care College Athlete Name Role Phone No, Physician Unavailable Lorie Vanessa NP Primary Care Provider [phone] Encounter Details Date Type Department Care Team (Late st Contact Info) Description 07/10/2022 Telephone [facility] Primary Care at [place] [address] [facility] [address] [place] [address] Lorie Vanessa NP [address] [place] [phone] Social History Tobacco Use Types Packs/Day Years Used Date Smoking Tobacco: Never PHQ-2 Answer Date Recorded PHQ-2 Total Score (If total score is 3 or more points, staff should administer the PHQ-9) 0 04/12/2022 Comments No Sex and Gender Information Value Date Recorded Sex Assigned at Not on file Legal Sex Female 6:55 PM EMBALMER ASSISTANT Gender Identity Female 06/06/2022 7:40 AM EMBALMER ASSISTANT Sexual Orientation Not on file documented as of this encounter Miscellaneous Notes * Telephone Encounter - Janelle Linda - 07/10/2022 9:37 AM CST Contacted pt and scheduled f/u LMER ASSISTANT * Telephone Encounter - Janelle Linda - 07/10/2022 9:36 AM CST ----- Message from Lorie Vanessa NP sent at 07/10/2022 6:05 AM EMBALMER ASSISTANT ----- Regarding: ER follow-up She needs an ER follow-up visit this week. LMER ASSISTANT documented in this encounter Plan of Treatment Not on file documented as of this encounter Visit Diagnoses Not on filedocumented in this encounter Care Teams College Athlete Relationship Specialty Start Date End Date Lorie Vanessa NP [address] [place] [id number] PCP - General Family Practice 05/29/22 No, Physician 06/08/21 documented as of this encounter
--- OUTSIDE RECORDS SUMMARY | 2024-06-06 00:36 | XMS_ITS | Encounter Summary ---
Author Organization [facility] Address [address] [place] [address] Care Team Providers Care Ready Mix Truck Driver Name Role Phone No, Physician Unavailable Lorie Vanessa NP Primary Care Provider [phone] Encounter Details Date Type Department Care Team (Late st Contact Info) Description 07/07/2022 E-Visit [facility] Virtual Care [address] [place] [address] Barb Otero NP [address] [facility] [address] [place] [address] E-Visit for Diarrhea Social History Tobacco Use Types Packs/Day Years Used Date Smoking Tobacco: Never PHQ-2 Answer Date Recorded PHQ-2 Total Score (If total score is 3 or more points, staff should administer the PHQ-9) 0 04/12/2022 Comments No Sex and Gender Information Value Date Recorded Sex Assigned at Not on file Legal Sex Female 6:55 PM STEWARD/STEWARDESS ECONOMY CLASS Gender Identity Female 06/06/2022 7:40 AM STEWARD/STEWARDESS ECONOMY CLASS Sexual Orientation Not on file documented as of this encounter Miscellaneous Notes * E-Visit Note - Barb Otero NP - 07/07/2022 7:29 AM CST Images from the original note were not included. Emily Guerrier 07/07/2022 E-Visit Submission Subjective/Objective: Emily Guerrier contacted the office today via e-visit for Diarrhea. The patient-submitted questionnaire was assessed for pertinent information and the patient's problem list, medication list, and allergies were reviewed as part of the e-visit. The chart was updated to identify any changes in these areas. Assessment: Diagnosis Plan 1. Abdominal pain 2. Vomiting, unspecified vomiting type, unspecified whether nausea present Plan: The patient was given information regarding any new medication(s) prescribed, if applicable, as well as any [id number] remedies. She was given instructions regarding follow up and timeframe if symptoms worsen or don???t improve. These instructions were included in the [employer] message reply tothe patient. Patient Instructions were included in the message reply to patient. My total encounter time on 07/07/2022 was 3 minutes which was spent in the activities documented inthe note. Barb Otero NP ARD/STEWARDESS ECONOMY CLASS documented in this encounter Plan of Treatment Not on file documented as of this encounter Visit Diagnoses Diagnosis Abdominal pain- Primary Abdominal pain, unspecified site Vomiting, unspecified vomiting type, unspecified whether nausea present documented in this encounter Care Teams Ready Mix Truck Driver Relationship Specialty Start Date End Date Lorie Vanessa NP [address] [place] [id number] PCP - General Family Practice 05/29/22 No, Physician 06/08/21 documented as of this encounter
--- OUTSIDE RECORDS SUMMARY | 2024-06-06 00:37 | XMS_ITS | Encounter Summary ---
Author Organization [facility] Address [address] [place] [address] Care Team Providers Care Product Transfer Pumper Name Role Phone No, Physician Unavailable Lorie Vanessa NP Primary Care Provider [phone] Encounter Details Date Type Department Care Team (Late st Contact Info) Description 06/15/2022 Telephone [facility] Primary Care at [place] [address] [facility] [address] [place] [address] Lorie Vanessa NP [address] [place] [address] Social History Tobacco Use Types Packs/Day Years Used Date Smoking Tobacco: Never PHQ-2 Answer Date Recorded PHQ-2 Total Score (If total score is 3 or more points, staff should administer the PHQ-9) 0 04/12/2022 Comments No Sex and Gender Information Value Date Recorded Sex Assigned at Not on file Legal Sex Female 6:55 PM SUPERVISOR METER SHOP Gender Identity Female 06/06/2022 7:40 AM SUPERVISOR METER SHOP Sexual Orientation Not on file documented as of this encounter Miscellaneous Notes * Telephone Encounter - Shilo Michael MA - 06/15/2022 8:38 AM CST Pantoprazole 40 mg BID PA submitted via CMM. Determination pending. RVISOR METER SHOP documented in this encounter Plan of Treatment Not on file documented as of this encounter Visit Diagnoses Not on filedocumented in this encounter Care Teams Product Transfer Pumper Relationship Specialty Start Date End Date Lorie Vanessa NP [address] [place] [id number] PCP - General Family Practice 05/29/22 No, Physician 06/08/21 documented as of this encounter
--- OUTSIDE RECORDS SUMMARY | 2024-06-06 00:37 | XMS_ITS | Encounter Summary ---
Author Organization [facility] Address [address] [facility] [address] [place] [address] Care Team Providers Care Chemical Dependency Attendant Name Role Phone No, Physician Unavailable Collin Valdez MD Primary Care Provider [phone] Encounter Details Date Type Department Care Team (Late st Contact Info) Description 05/02/2022 Telephone [facility] Primary Care [address] [place] [address] Collin Valdez MD [facility] [address] [address] Social History Tobacco Use Types Packs/Day Years Used Date Smoking Tobacco: Never PHQ-2 Answer Date Recorded PHQ-2 Total Score (If total score is 3 or more points, staff should administer the PHQ-9) 0 04/12/2022 Comments No Sex and Gender Information Value Date Recorded Sex Assigned at Not on file Legal Sex Female 6:55 PM MARKETING BUDGET ANALYST Gender Identity Female 06/06/2022 7:40 AM MARKETING BUDGET ANALYST Sexual Orientation Not on file documented as of this encounter Miscellaneous Notes * Telephone Encounter - Collin Valdez MD - 05/02/2022 10:10 AM CST Probably not good test for acute strep. She has antibody of serotype 1, history of previous infection. ETING BUDGET ANALYST * Telephone Encounter - Miranda Mack LPN - 05/02/2022 8:25 AM CST Pneumonia titer? ETING BUDGET ANALYST * Telephone Encounter - Miranda Mack LPN - 05/02/2022 8:24 AM CST ----- Message from Collin Valdez MD sent at 05/01/2022 5:00 PM MARKETING BUDGET ANALYST ----- Regarding: FW: pneumonia titer Contact: ----- Message ----- From: Miranda Mack LPN Sent: 05/01/2022 8:19 AM MARKETING BUDGET ANALYST To: Collin Valdez MD Subject: FW: pneumonia titer Please review and advise., ----- Message ----- From: Emily Guerrier Sent: 05/01/2022 1:57 AM MARKETING BUDGET ANALYST To: Bjg Pcp Cathy Castellanos [facility] [place] Subject: pneumonia titer hi, I was reaching out to see if i'm able to get these test results explained. I've never seen thistest before and am just curious about what the results mean. i attempted to reach out to Lorie Vanessa and she has not responded back. thanks ETING BUDGET ANALYST documented in this encounter Plan of Treatment Not on file documented as of this encounter Visit Diagnoses Not on filedocumented in this encounter Care Teams Chemical Dependency Attendant Relationship Specialty Start Date End Date Collin Valdez MD PCP - General Family Medicine 04/12/22 05/28/22 No, Physician 06/08/21 documented as of this encounter
--- OUTSIDE RECORDS SUMMARY | 2024-06-06 00:37 | XMS_ITS | Encounter Summary ---
Author Organization [facility] Address [address] [place] [address] Care Team Providers Care First Grade Teacher Name Role Phone No, Physician Unavailable Lorie Vanessa NP Primary Care Provider [phone] Encounter Details Date Type Department Care Team (Late st Contact Info) Description 06/06/2022 9:50 AM CUSTOMER OPERATIONS REPRESENTATIVE Lab [facility] Building [address] [address] Nausea; Amenorrhea Social History Tobacco Use Types Packs/Day Years Used Date Smoking Tobacco: Never PHQ-2 Answer Date Recorded PHQ-2 Total Score (If total score is 3 or more points, staff should administer the PHQ-9) 0 04/12/2022 Comments No Sex and Gender Information Value Date Recorded Sex Assigned at Not on file Legal Sex Female 6:55 PM CUSTOMER OPERATIONS REPRESENTATIVE Gender Identity Female 06/06/2022 7:40 AM CUSTOMER OPERATIONS REPRESENTATIVE Sexual Orientation Not on file documented as of this encounter Miscellaneous Notes * Result Encounter Note - Lorie Vanessa NP - 06/06/2022 12:12 PM CST Negative test. OMER OPERATIONS REPRESENTATIVE documented in this encounter Plan of Treatment Not on file documented as of this encounter Procedures Procedure Name Priority Date/Time Associated Diagnosis Comments HCG, BLOOD, QUANTITATIVE Routine 06/06/2022 9:52 AM CUSTOMER OPERATIONS REPRESENTATIVE Nausea Amenorrhea documented in this encounter Results * hCG, blood, quantitative (06/06/2022 9:52 AM CUSTOMER OPERATIONS REPRESENTATIVE) hCG, quant 0.3 0.0 - 5.0 IUnits/L [facility] Comment: Interpretive Data Non- Female premenopausal: < or = 5.0 IUnits/L Men: < 5.0 IUnits/L Weeks of Gestation ? Reference Interval ?? 3 to 6 ? 5.8-31,795 IUnits/L ?? 7 to 10 ? 3,697-186,977 IUnits/L ??12 to 15 ?27,832- 70,791 IUnits/L ??16 to 18 ? 9,040- 58,179 IUnits/L The Pauline hCG Beta Quant assay procedure was used. Results from different manufacturers or methods may not be comparable. Serial testing should be performed using the same method. Current Interpretive Data was last revised on 2021. Testing performed by: [facility], [address] [place] [address]., [id number] Blood 06/06/2022 9:52 AM CUSTOMER OPERATIONS REPRESENTATIVE 06/06/2022 10:44 AM CUSTOMER OPERATIONS REPRESENTATIVE us Lorie Vanessa NP LAB BLOOD ORDERABLES Edited Resu lt - Final [facility] [id number] [facility] [place] [address] documented in this encounter Visit Diagnoses Diagnosis Nausea Nausea alone Amenorrhea Absence of menstruation documented in this encounter Care Teams First Grade Teacher Relationship Specialty Start Date End Date Lorie Vanessa NP [address] [place] [id number] PCP - General Family Practice 05/29/22 No, Physician 06/08/21 documented as of this encounter
--- OUTSIDE RECORDS SUMMARY | 2024-06-06 00:37 | XMS_ITS | Encounter Summary ---
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 Role Phone No, Physician Unavailable Sourav Jones NP Primary Care Provider Reason for Visit * Reason Comments Abdominal Pain Nausea Weakness - Generalized Back Pain Encounter Details Date Type Department Care Team (Late st Contact Info) Description 08/21/2021 12:21 PM CDT - 08/21/2021 3:03 PM CDT Emergency [facility] Emergency Department [address] [place] [address] Abdominal pain (Primary Dx); Leg weakness, bilateral; Urinary tract infection without hematuria, site unspecified; Nausea; Irritable bowel syndrome, unspecified type Discharge Disposition: Discharge to home or self care Social History Tobacco Use Types Packs/Day Years Used Date Smoking Tobacco: Never Comments No Sex and Gender Information Value Date Recorded Sex Assigned at Not on file 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 Gender Identity Female 06/06/2022 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 Sexual Orientation Not on file documented as of this encounter Last Filed Vital Signs Vital Sign Reading Time Taken Comments Blood Pressure 105/68 08/21/2021 2:33 PM CDT Pulse 76 08/21/2021 2:33 PM CDT Temperature 36.8 ??C (98.2 ??F) 08/21/2021 1 2:10 PM CDT Respiratory Rate 16 08/21/2021 2:33 PM CDT Oxygen Saturation 99% 08/21/2021 2:33 PM CDT Inhaled Oxygen Concentration - - Weight 135.8 kg (299 lb 6.2 oz) 022 12:10 PM CDT Height 162.6 cm (5' 4 ) 08/21/2021 12:1 0 PM CDT Body Mass Index 51.39 08/21/2021 12:10 PM CDT documented in this encounter Discharge Instructions * Discharge Instructions* Ann Roberson PA - 08/21/2021 2:57 PM CDT Follow-up as recommended is mandatory. You have [...] be sent through Care Everywhere. * Acute Abdominal Pain (AfterCare(R) Instructions(ER/ED)) (Jamaican) * Urinary Tract Infection in Women (AfterCare(R) Instructions(ER/ED)) (Jamaican) documented in this encounter Medications at Time of Discharge albuterol HFA (PROVENTIL HFA,VENTOLIN HFA,PROAIR HFA) 90 mcg/actuation inhaler Ventolin HFA 90 mcg/actuation aerosol inhaler 08/06/2019 04/12/20 22 cetirizine (ZyrTEC) 10 mg tablet Take 1 tablet (10 mg total) by mouth daily 07/11/19 23 ciprofloxacin (CIPRO) 250 mg tablet Take 1 tablet (250 mg total) by mouth every 12 (twelve) hours 10 tablet 08/21/2021 04/12/20 22 fluconazole (DIFLUCAN) 150 mg tablet Take only if you get symptoms for a yeast infection due to antibiotics 1 tablet 08/19/2021 04/12/20 22 norethindrone (MICRONOR) 0.35 mg tablet Take 1 tablet (0.35 mg total) by mouth daily 05/12/2021 02/19/20 23 omeprazole (PriLOSEC) 20 mg capsule omeprazole 20 mg capsule,delayed release 11/23/2018 04/12/20 22 ondansetron ODT (ZOFRAN-ODT) 4 mg disintegrating tablet Dissolve 1 tablet for mild to moderate nausea or vomiting or 2 tablets for severe nausea or vomiting orally under tongue q 6 hours prn 20 tablet 08/19/2021 03/21/20 22 sertraline (ZOLOFT) 25 mg tablet 08/15/2021 04/12/20 documented as of this encounter Ordered Prescriptions Prescription Sig Dispense Quantity Refills Last Filled Start Date End Date ciprofloxacin (CIPRO) 250 mg tablet Take 1 tablet (250 mg total) by mouth every 12 (twelve) hours 10 tablet 08/21/2021 04/12/2022 documented in this encounter Discharge Disposition Disposition Code Departure Means Destination Discharge to home or self care documented in this encounter ED Notes * Ann Roberson PA - 08/21/2021 12:05 PM CDT HPI Chief Complaint Patient presents with ??? Abdominal Pain ??? Nausea ??? Weakness - Generalized ??? Back Pain HPI 2:57 PM Emily Guerrier is a 25 y.o. female presenting to the ED c/o right lower quadrant pain and nausea that has been persistent since she left here 2 days ago. I saw the patient on Saturday and at that time she had a CT of her abdomen as well as an ultrasound which was negative. She did have leukocytosis at that time. She states she has had chills but no fever. She reports her legs are feeling weak. She has not vomited. She denies dysuria, polyuria, hematuria, vaginal irritation or discharge. She is currently sexually active with 1 partner and does not use protection. Currently she ratespain at 10/03 she has been taking ibuprofen and Tylenol without much relief Patient History: History reviewed. No pertinent past medical history. History reviewed. No pertinent surgical history. Family History Problem Relation Age of Onset ??? Diabetes Maternal Grandmother Family history of diabetes mellitus - (Added by MEGHNA Conv) ??? Mental illness Maternal Grandmother Family history of mental disorder - (Added by MEGHNA Conv) Social History Tobacco Use ??? Smoking status: Never Smoker Review of Systems Review of Systems All systems reviewed and are neg or non contributory for this patients presentation today other than as stated in the HPI. Physical Exam ED Triage Vitals Temp Pulse Resp BP SpO2 08/21/21 1210 08/21/21 1210 08/21/21 1210 08/21/21 1210 08/21/21 1210 36.8 ??C (98.2 ??F) 91 20 143/85 99 % Temp src Heart Rate Source Patient Position BP Location FiO2 (%) 08/21/21 1210 08/21/21 1433 08/21/21 1433 08/21/21 1433 -- Oral Monitor Lying Left arm Physical Exam Vitals and nursing note reviewed. Constitutional: General: She is not in acute distress. Appearance: She is well-developed. HENT: Head: Normocephalic and atraumatic. Eyes: General: No scleral icterus. Right eye: No discharge. Left eye: No discharge. Conjunctiva/sclera: Conjunctivae normal. Pupils: Pupils are equal, round, and reactive to light. Neck: Thyroid: No thyromegaly. Cardiovascular: Rate and Rhythm: Normal rate and regular rhythm. Heart sounds: Normal heart sounds. No murmur heard. No friction rub. No gallop. Pulmonary: Effort: Pulmonary effort is normal. No respiratory distress. Breath sounds: Normal breath sounds. No wheezing or rales. Chest: Chest wall: No tenderness. Abdominal: General: Bowel sounds are normal. There is no distension. Palpations: Abdomen is soft. Tenderness: There is no abdominal tenderness. There is no guarding or rebound. Hernia: No hernia is present. Musculoskeletal: General: No tenderness or deformity. Normal range of motion. Cervical back: Normal range of motion and neck supple. Lymphadenopathy: Cervical: No cervical adenopathy. Skin: General: Skin is warm and dry. Capillary Refill: Capillary refill takes less than 2 seconds. Findings: No rash. Neurological: Mental Status: She is alert and oriented to person, place, and time. Cranial Nerves: No cranial nerve deficit. Sensory: No sensory deficit. Psychiatric: Behavior: Behavior normal. Thought Content: Thought content normal. Judgment: Judgment normal. Procedures [facility] Labs Reviewed URINALYSIS AND REFLEX TO MICROSCOPIC AND CULTURE - Abnormal Result Value Color, ur Brissa Clarity, ur Cloudy (*) Specific gravity, ur 1.023 pH, urine 8.0 Protein, ur ql Negative Glucose, ur ql Negative Ketones, ur Negative Bilirubin, ur Negative Blood, ur Negative Urobilinogen, ur <2.0 Nitrite, ur Positive (*) Leukocyte esterase, ur Negative UA reflex comment [...] tendency for uric acid stone formation. Source: [facility] [employer].Last revised 06-06-2017 CBC WITH AUTO DIFFERENTIAL - Abnormal WBC 10.3 (*) Hgb 13.7 Hct 42.2 Plt 418 (*) MPV 8.8 (*) RBC 4.84 MCV 87.2 MCH 28.3 MCHC 32.5 RDW CV 12.1 RDW SD 38.8 NRBC abs 0.00 DIFFERENTIAL AUTO - Abnormal Neutrophil abs 5.5 Imm gran abs 0.0 Lymphocyte abs 3.5 (*) Monocyte abs 0.9 (*) Eosinophil abs 0.2 Basophil abs 0.1 Neutrophil pct 53.9 Imm gran pct 0.3 Lymphocyte pct 33.7 Monocyte pct 9.2 Eosinophil pct 2.1 Basophil pct 0.8 URINALYSIS, MICROSCOPIC ONLY - Abnormal WBC, ur 0-5 RBC, ur 0-2 Epithelial cells, squamous, ur >50 (*) Mucous, ur Present (*) Amorphous crystals, ur 1+ (*) Culture Reflex Comment Value: Reflex conditions for urine culture (WBC >10) not met. N. GONORRHOEAE/C. TRACHOMATIS AMPLIFICATION C. trachomatis Not Detected N. gonorrhoeae Not Detected VAGINITIS PANEL Madiosn DNA probe Not Detected Gardnerella DNA probe Not Detected Trichomonas DNA probe Not Detected COMPREHENSIVE METABOLIC PANEL Sodium 140 Potassium, pl 3.9 Chloride 105 CO2 23 Anion gap 12 BUN 9 Creatinine 0.90 Glucose 80 Calcium 9.1 Bilirubin, total 0.2 Protein, pl 7.5 Albumin 4.4 Alk phos 94 ALT 17 AST 22 SEPSIS LACTATE WITH REFLEX Sepsis Lactate 1.2 EGFR eGFR 92 No orders to display BP 105/68 (BP Location: Left arm, Patient Position: Lying) Pulse 76 Temp 36.8 ??C (98.2 ??F) (Oral) Resp 16 Ht 162.6 cm (5' 4 ) Wt 135.8 kg (299 lb 6.2 oz) LMP 09/21/2020 (Approximate) SpO2 99% BMI 51.39 kg/m?? MDM Number of Diagnoses or Management Options Abdominal pain: new and requires workup Irritable bowel syndrome, unspecified type: new and requires workup Leg weakness, bilateral: new and requires workup Nausea: new and requires workup Urinary tract infection without hematuria, site unspecified: new and requires workup Diagnosis management comments: IN MY MEDICAL DECISION MAKING THE FOLLOWING DIFFERENTIAL DIAGNOSES WERE CONSIDERED BEFORE ARRIVING AT FINAL DIAGNOSIS AND MANY WERE EITHER RULED OUT OR APPEARED UNLIKELY: ACS / AMI, Appendicitis, Bowel Obstruction, Constipation, Diverticulitis, Hepatitis / Pancreatitis,Irritable Bowel Syndrome, Pneumonia, / Ectopic / Ovarian, Renal Colic /Ureteral Stone, AAA, GB, PID, PUD, UTI Amount and/or Complexity of Data Reviewed Clinical lab tests: reviewed Tests in the radiology section of CPT??: ordered and reviewed Risk of Complications, Morbidity, and/or Mortality Presenting problems: moderate Diagnostic procedures: moderate Management options: moderate Patient Progress Patient progress: stable US Transvaginal Status: Final result Study Result Narrative & Impression ?? EXAM DESCRIPTION: US TRANSVAGINAL REASON FOR STUDY: Right lower abdominal pain. Right flank pain. TECHNIQUE: Grayscale ultrasound of the pelvic contents was performed with transvaginal transducer. COMPARISON: CT abdomen and pelvis 08/19/2021 FINDINGS: UTERUS: The uterus is anteverted. The uterus is homogenous in echotexture and measures 7.1 x 3.7 x 2.9 cm. ?? ENDOMETRIUM: The endometrium measures 0.4 cm in thickness. ?? RIGHT OVARY: The right ovary measures 3.8 x 2.6 x 1.8 cm. There is documentation of color Doppler flow in the right ovary. The right ovary appears unremarkable. ?? LEFT OVARY: The left ovary measures 3.5 x 3.2 x 2.4 cm. There is documentation of color Doppler flow in the left ovary. The left ovary appears unremarkable. ?? PELVIC FLUID: There is no evidence of free fluid in the pelvis. ?? OTHER: No other significant findings. IMPRESSION: ?? 1. No acute sonographic abnormality. 2. No free pelvic fluid. ? THIS IS AN ELECTRONICALLY VERIFIED FINAL REPORT 08/19/2021 2:34 PM - Electronically signed by Aamir Reyes M.D. ?? LB: LB CT Abdomen Pelvis WO Contrast Status: Final result Study Result Narrative & Impression ?? EXAM DESCRIPTION: CT ABDOMEN PELVIS WO CONTRAST REASON FOR STUDY: Right-sided flank pain since last night and urinary urgency. TECHNIQUE: CT scan of the abdomen and pelvis performed without intravenous and without oral contrast using helical scanning technique. Reconstructed coronal and sagittal MPR images reviewed. All images stored on PACS. Automated exposure control was used as a dose optimization technique for this examination. COMPARISON: None available. FINDINGS: The sensitivity for detection of visceral lesions is diminished without the use of intravenous contrast. ?? LOWER CHEST: Lung bases are clear. No pleural effusion. Imaged portions of the heart are normal. No pericardial effusion. ?? LIVER: The liver is normal in size. No focal lesions are seen on this noncontrast examination. ?? GALLBLADDER: Unremarkable. ?? BILE DUCTS: No intrahepatic or extrahepatic ductal dilatation. ?? SPLEEN: Normal size. No focal lesions. ?? PANCREAS: Noncontrast appearance of the pancreas is unremarkable. No focal lesions, dilatation of the main pancreatic duct, or inflammatory changes noted. ?? ADRENALS: Normal. ?? KIDNEYS/URINARY TRACT: The kidneys are normal in size. No focal renal lesions are noted on this noncontrast examination. There is no right-sided hydronephrosis or nephrolithiasis. Punctate nonobstructing stone in the left kidney on image 51. No left-sided hydronephrosis. The ureters are normal in caliber. There are no ureteral stones. The urinary bladder is completely decompressed, limiting evaluation. ?? GI: The stomach has unremarkable appearance, accounting for decompressed status. The small bowel and colon are normal in caliber, demonstrating no signs of obstruction or inflammation. Normal appendix. ?? PERITONEUM: There is no free intraperitoneal fluid or gas. ?? RETROPERITONEUM: No lymphadenopathy or masses. ?? REPRODUCTIVE: The uterus and adnexa have normal appearance. ?? VASCULATURE: The abdominal aorta is normal in caliber. No significant vascular abnormality seen on this noncontrast study. ?? MUSCULOSKELETAL: Examination of bone windows demonstrates no suspicious lytic or blastic lesions. Schmorl nodes noted in the imaged portions of the spine. ?? OTHER: No other abnormality. IMPRESSION: ?? 1. No acute findings identified to account for patient's reported right flank pain. 2. Punctate nonobstructing stone in the upper pole of left kidney. 3. Other findings as described above. ? THIS IS AN ELECTRONICALLY VERIFIED FINAL REPORT 08/19/2021 12:25 PM - Electronically signed by Jone Mercado M.D. ?? RL: DAVID ?? Report ID: [id number] Reading Location: [id number] Urine culture Urine, clean voided Order: [id number] Collected 08/19/2021 09:21 ?? Status: Final result ?? Visible to patient: Yes (seen) ?? Dx: Urinary urgency ?? Specimen Information: Urine, clean voided ?? 1 Result Note Component Report Final Report: Less than 100,000 colonies/mL (clinically insignificant growth based on current clinical standards) Comment: Testing performed by: [facility], [address] [facility], [facility] [place]., [address] Organism (CLINICALLY INSIGNIFICANT GROWTH Resulting Agency Narrative Performed by: Testing performed by [facility] ([phone]) Specimen Collected: 08/19/21 09:21 Last Resulted: 08/21/21 07:05 Order Details ?? View Encounter ?? Lab and Collection Details ?? Routing ?? Result History ?? Result Care Coordination Result Notes oSnia Castro NP 08/21/2021 ??7:44 AM CDT Back to Top Please alert patient that urine culture was negative. ??She can stop taking antibiotics. If s/s persist, she should follow up with PCP. ED Course as of 08/21/21 [id number] Time: 08/21 1210 Comment: Patient's urine culture was negative for UTI. I will repeat labs and do a pelvic exam for further evaluation. By: Ann Roberson PA Time: 08/21 1306 Comment: Patient's white blood cell count has decreased since she was here last. She does have positive nitrites at this time and she did not have that before. Her last urine culture was negative. I will change her antibiotic. By: Ann Roberson PA Time: 08/21 1313 Comment: Awaiting rest of the patient's labs. I spoke with her about STD worse. She is not concerned for this. She has been with the same partner for 1 1/2 year and does not believe that is the cause. I explained to her that if anything comes up positive she will need to be treated her partner willneed to be treated and he other partner will need to be treated. Then no sex for 2 weeks then safe sex. She agrees. By: Ann Roberson PA Time: 08/21 1314 Comment: The patient states she normally has diarrhea regularly with her IBS. Today she only had 1 bowel movement. I told her I am not concerned for the fact that she is having last bowel movements. She is eating and drinking normally and did have 1 bowel movement today and has normal bowel sounds.I hesitate to do an x-ray because she just had a CT scan 2 days ago. She understands. By: Ann Roberson PA Time: 08/21 1451 Comment: I spoke with the lab. Her vaginitis panel is negative. The patient will be discharged and should follow-up with her OBGYN JAJA. By: Ann Roberson PA Clinical Impression: Abdominal pain Leg weakness, bilateral Urinary tract infection without hematuria, site unspecified Nausea Irritable bowel syndrome, unspecified type 2:57 PM Rechecked Emily Guerrier is resting comfortably and feeling better. I discussed the results of diagnostic studies, my clinical impression, and the plan for further treatment with Emily Guerrier. Patient agrees with plan and discharge at this time, all questions addressed. Pt is medically stable for discharge at this time. I have given Emily Guerrier instructions regarding the diagnosis, expectations, follow up, and return precautions. I explained to the patient that emergent conditions may arise and to return to the ER for new, worsening, or any persistent conditions. I've explained the importance of following upwith the referral physician as instructed. The patient verbalized understanding of the discharge instructions. New Medications: New Prescriptions CIPROFLOXACIN (CIPRO) 250 MG TABLET Take 1 tablet (250 mg total) by mouth every 12 (twelve) hours I have advised the patient to follow-up with: Vinicius King MD [address] [place] [id number] Schedule an appointment as soon as possible for a visit Sourav Caldwell NP [address] [facility] [address] Schedule an appointment as soon as possible for a visit DIAGNOSIS: 1. Abdominal pain 2. Leg weakness, bilateral 3. Urinary tract infection without hematuria, site unspecified 4. Nausea 5. Irritable bowel syndrome, unspecified type Disposition: Discharged Ann Roberson PA 08/21/21 1458 Cosigned by Mauro Ward MD at 10/01/2021 10:32 AM CDT Associated attestation - Mauro Ward MD - 10/01/2021 10:32 AM CDT ED Attestation This patient was independently evaluated by the APC. I was available for immediate consultation andin-person evaluation if required but was not asked to do so. * Sarah Romero RN - 08/21/2021 12:05 PM CDT Pt seen here on 08/19 with DX of rt flank pain, RLQ pain, nausea, acute cystitis, and leukocytosis. Pt states she offered to stay but chose to go home. Provided told her if she did not get better or she was worse to return. Pt here today because she feels worse. States she is feeling weaker with no improvement in abd or back pain and continues to be nauseated. Pt states she fell to her knees todaydue to the weakness. She is also feeling very shaky. documented in this encounter Plan of Treatment Not on file documented as of this encounter Procedures Procedure Name Priority Date/Time Associated Diagnosis Comments N. GONORRHOEAE/C. TRACHOMATIS AMPLIFICATION STAT 08/21/2021 1:16 PM CDT VAGINITIS PANEL STAT 08/21/2021 1:16 PM CDT SEPSIS LACTATE WITH REFLEX STAT 08/21/2021 12:33 PM CDT EGFR STAT 08/21/2021 12:33 PM CDT DIFFERENTIAL AUTO STAT 08/21/2021 12: 33 PM CDT URINALYSIS AND REFLEX TO MICROSCOPIC AND CULTURE STAT 08/21/2021 12:33 PM CDT CBC WITH AUTO DIFFERENTIAL STAT 08/21/2021 12:33 PM CDT URINALYSIS, MICROSCOPIC ONLY STAT 08/21/2021 12:33 PM CDT COMPREHENSIVE METABOLIC PANEL STAT 08/21/2021 12:33 PM CDT documented in this encounter Results * Vaginitis panel Vaginal (08/21/2021 1:16 PM CDT) Madison DNA probe Not Detected Not Detected FRAN HAYS Comment:Testing performed by : [facility], [address] [place] [address]., [id number] Gardnerella DNA probe Not Detected Not Detected FRAN HAYS Comment:Testing performed by : [facility], [address] [place] [address]., [id number] Trichomonas DNA probe Not Detected Not Detected FRAN Comment: Interpretive Data Testing performed by [facility] via [employer] VPIII Microbial Identification Test, a DNA probe test for use in the detection and identification of Madison species, Gardnerella vaginalis and Trichomonas vaginalis nucleic acid in vaginal fluid specimens from patients with symptoms of vaginitis/vaginosis. Negative results for these tests suggest the patient does not have candidiasis, bacterial vaginosis and/or trichomoniasis when consistent with clinical signs and symptoms. Current interpretive data was last revised on 2020. Testing performed by: [facility], [address] [place] [address]., [id number] Vaginal 08/21/2021 1:16 PM CDT 08/21/2021 1:21 PM CDT us Ann [facility] MICROBIOLOGY - GENERAL OR DERABLES Final Result FRAN [address] [facility] Department [place] [address] * N. gonorrhoeae/C. trachomatis Amplification Endocervical (08/21/2021 1:16 PM CDT) C. trachomatis Not Detected Not Detected FRAN HAYS Comment:Testing performed by : [facility], [address] [place] [address]., [id number] N. gonorrhoeae Not Detected Not Detected FRAN HAYS Comment: Interpretive Data Testing performed by the [facility]. This assay detects Chlamydia trachomatis and Neisseria gonorrhoeae by nucleic acid amplification testing (NAAT). This test is approved by the [place] Food and Drug Administration and the performance characteristics have been verified by the laboratory. The performance characteristics of this test have not been evaluated in individuals less than 14 years of age. Current Interpretive Data was last revised on 2019. Testing performed by: [facility], [address] [place] [address]., [id number] Endocervical (None) 08/22/19 1:16 PM CDT 08/21/2021 1:21 PM CDT us Ann [facility] MICROBIOLOGY - GENERAL OR DERABLES Final Result Performing Organization Address City/State/[facility] Co de Phone Number [facility] [address] [facility] Department [place] [address] * eGFR (08/21/2021 12:33 PM CDT) eGFR 92 mL/min/1. 73 m2 FRAN HAYS Comment: Interpretive [...] was last reviewed 2021. Testing performed by: [address] [address] Blood 08/21/2021 12:3 3 PM CDT 08/21/2021 12:47 PM CDT us Ann [facility] BLOOD ORDERABLES Final Re sult FRAN [address] [facility] Department [place] [address] * (ABNORMAL) Urinalysis, microscopic only (08/21/2021 12:33 PM CDT) WBC, ur 0-5 0 - 5 /HPF FRAN Comment:Testing performed by : [address] [address] RBC, ur 0-2 0 - 2 /HPF FRAN Comment:Testing performed by : [address] [address] Epithelial cells, squamous, ur >50(A) 0 - 5 /HPF FRAN Comment: Suggestive of contamination. Consider recollection by clean catch. Testing performed by: [address] [address] Mucous, ur Present(A) FRAN Comment:Testing performed by : [address] [address] Amorphous crystals, ur 1+(A) FRAN Comment:Testing performed by : [address] [address] Culture Reflex Comment Reflex conditions for urine culture (WBC >10) not met. FRAN Comment:Testing performed by : [address] [address] Urine 08/21/2021 12:3 3 PM CDT 08/21/2021 12:45 PM CDT us Ann [facility] URINE ORDERABLES Final Re sult FRAN [address] [facility] Department [place] [address] * (ABNORMAL) Differential, auto (08/21/2021 12:33 PM CDT) Neutrophil abs 5.5 1.7 - 6.5 K/cumm FRAN Comment:Testing performed by : [address] [address] Imm gran abs 0.0 0.0 - 0.1 K/cumm FRAN Comment:Testing performed by : [address] [address] Lymphocyte abs 3.5(H) 0.8 - 3.3 K/cumm FRAN Comment:Testing performed by : [address] [address] Monocyte abs 0.9(H) 0.2 - 0.8 K/cumm FRAN Comment:Testing performed by : [address] [address] Eosinophil abs 0.2 0.0 - 0.5 K/cumm FRAN Comment:Testing performed by : [address] [address] Basophil abs 0.1 0.0 - 0.1 K/cumm FRAN Comment:Testing performed by : [address] [address] Neutrophil pct 53.9 % FRAN Comment: Interpretive Data Percent cell count reference ranges are not reported, since discordance with absolute values may lead to misinterpretation of CBC data. Current Interpretive Data was last revised on 2017. Testing performed by: [address] [address] Imm gran pct 0.3 % [facility] Comment: Interpretive Data Percent cell count reference ranges are not reported, since discordance with absolute values may lead to misinterpretation of CBC data. Current Interpretive Data was last revised on 2017. Testing performed by: [address] [address] Lymphocyte pct 33.7 % [facility] Comment: Interpretive Data Percent cell count reference ranges are not reported, since discordance with absolute values may lead to misinterpretation of CBC data. Current Interpretive Data was last revised on 2017. Testing performed by: [address] [address] Monocyte pct 9.2 % [facility] Comment: Interpretive Data Percent cell count reference ranges are not reported, since discordance with absolute values may lead to misinterpretation of CBC data. Current Interpretive Data was last revised on 2017. Testing performed by: [address] [address] Eosinophil pct 2.1 % [facility] Comment: Interpretive Data Percent cell count reference ranges are not reported, since discordance with absolute values may lead to misinterpretation of CBC data. Current Interpretive Data was last revised on 2017. Testing performed by: [address] [address] Basophil pct 0.8 % [facility] Comment: Interpretive Data Percent cell count reference ranges are not reported, since discordance with absolute values may lead to misinterpretation of CBC data. Current Interpretive Data was last revised on 2017. Testing performed by: [address] [address] Blood 08/21/2021 12:3 3 PM CDT 08/21/2021 12:47 PM CDT us Ann LEYVA LAB BLOOD ORDERABLES Final Re sult [facility] [address] [facility] Department [place] [address] * (ABNORMAL) Urinalysis reflex to microscopic and culture Urine (08/21/2021 12:33 PM CDT) Color, ur Brissa Yellow [facility]AN Comment:Testing performed by : [address], [place]., [address] Clarity, ur Cloudy(A) Clear [facility]AN Comment:Testing performed by : [address], [place]., [address] Specific gravity, ur 1.023 1.003 - 1.030 [facility] Comment:Testing performed by : [address], [place]., [address] pH, urine 8.0 [facility] Comment:Testing performed by : [address], [place]., [address] Protein, ur ql Negative Negative [facility]AN Comment:Testing performed by : [address], [place]., [address] Glucose, ur ql Negative Negative [facility]AN Comment:Testing performed by : [address], [place]., [address] Ketones, ur Negative Negative [facility]AN Comment:Testing performed by : [address] [address] Bilirubin, ur Negative Negative [facility]AN Comment:Testing performed by : [address] [address] Blood, ur Negative Negative [facility]AN Comment:Testing performed by : [address] [address] Urobilinogen, ur <2.0 <2.0 mg/dL [facility] Comment:Testing performed by : [address] [address] Nitrite, ur Positive(A) Negative [facility]AN Comment:Testing performed by : [address] [address] Leukocyte esterase, ur Negative Negative [facility]AN Comment:Testing performed by : [address], [place]., [address] UA reflex comment Reflex to microscopic UA will be performed. [facility]AN Comment:Testing performed by : [address] [address] Urine 08/21/2021 12:3 3 PM CDT 08/21/2021 12:45 PM CDT Narrative [facility]AN - 08/21/2021 12:52 PM CDT ?? Urine pH is affected by diet, medications, systemic acid-base disturbances, and renal tubular function. ??pH may affect urinary stone formation. ??For example, urine pH below 6.0 may help reduce the tendency for calcium phosphate stones and pH greater than 6.0 may reduce the tendency for uric acid stone formation. Source: [facility]. Last revised 06-06-2017 Ann LEYVA LAB MICROBIOLOGY - GENERAL OR DERABLES Final Result Performing Organization Address [facility] Co de Phone Number [address] [phone] * Sepsis Lactate w/ Reflex (08/21/2021 12:33 PM CDT) Sepsis Lactate 1.2 0.7 - 2.0 mmol/L [facility]AN Comment:Testing performed by : [address] [address] Blood 08/21/2021 12:3 3 PM CDT 08/21/2021 12:47 PM CDT Ann LEYVA LAB BLOOD ORDERABLES Final Re sult Performing Organization Address [facility] Co de Phone Number [facility] [address] [place] [address] * Comprehensive metabolic panel (08/21/2021 12:33 PM CDT) Sodium 140 135 - 145 mmol/L [facility] Comment:Testing performed by : [address] [address] Potassium, pl 3.9 3.3 - 4.9 mmol/L [facility] Comment:Testing performed by : [address] [address] Chloride 105 97 - 110 mmol/L [facility] Comment:Testing performed by : [address] [address] CO2 23 22 - 32 mmol/L [facility] Comment:Testing performed by : [address] [address] Anion gap 12 2 - 15 mmol/L [facility] Comment:Testing performed by : [address] [address] BUN 9 8 - 25 mg/dL [facility]AN Comment:Testing performed by : [address], [place]., [address] Creatinine 0.90 0.60 - 1.10 mg/dL [facility] Comment:Testing performed by : [address] [address] Glucose 80 70 - 199 mg/dL [facility] Comment: Interpretive Data Fasting glucose >/= [...] classification and Diagnosis of Diabetes Diabetes Care 2017;40 (Suppl. 1):S11. Current interpretive data was last revised 2017. Testing performed by: [address] [address] Calcium 9.1 8.5 - 10.3 mg/dL [facility] Comment:Testing performed by : [address] [address] Bilirubin, total 0.2 0.1 - 1.2 mg/dL [facility] Comment:Testing performed by : [address] [address] Protein, pl 7.5 6.5 - 8.5 g/dL [facility] Comment:Testing performed by : [address] [address] Albumin 4.4 3.5 - 5.0 g/dL [facility] Comment:Testing performed by : [address] [address] Alk phos 94 40 - 130 Units/L [facility] Comment:Testing performed by : [address] [address] ALT 17 7 - 45 Units/L [facility] Comment:Testing performed by : [address] [address] AST 22 10 - 45 Units/L [facility] Comment:Testing performed by : [address] [address] Blood 08/21/2021 12:3 3 PM CDT 08/21/2021 12:47 PM CDT us Ann LEYVA LAB BLOOD ORDERABLES Final Re sult [facility] Department [place] [address] * (ABNORMAL) CBC with auto differential (08/21/2021 12:33 PM CDT) WBC 10.3(H) 3.8 - 9.9 K/cumm [facility] Comment:Testing performed by : [address] [address] Hgb 13.7 11.9 - 15.5 g/dL [facility] Comment:Testing performed by : [address] [address] Hct 42.2 35.6 - 45.5 % [facility] Comment:Testing performed by : [address] [address] Plt 418(H) 150 - 400 K/cumm [facility] Comment:Testing performed by : [address] [address] MPV 8.8(L) 9.1 - 12.3 fL [facility] Comment:Testing performed by : [address] [address] RBC 4.84 3.90 - 5.20 M/cumm [facility] Comment:Testing performed by : [address] [address] MCV 87.2 81.3 - 96.4 fL [facility] Comment:Testing performed by : [address] [address] MCH 28.3 27.1 - 33.3 pg [facility] Comment:Testing performed by : [address] [address] MCHC 32.5 32.3 - 35.7 g/dL [facility] Comment:Testing performed by : [address], [address] RDW CV 12.1 11.1 - 14.9 % [facility] Comment:Testing performed by : [address], [address] RDW SD 38.8 35.7 - 48.1 fL [facility] Comment:Testing performed by : [address], [address] NRBC abs 0.00 0.00 - 0.01 K/cumm [facility] Comment:Testing performed by : [address], [address] Blood 08/21/2021 12:3 3 PM CDT 08/21/2021 12:47 PM CDT Ann LEYVA LAB BLOOD ORDERABLES Final Re sult [facility] [address] [facility] Department [place] [address] documented in this encounter Visit Diagnoses Diagnosis Abdominal pain- Primary Abdominal pain, unspecified site Leg weakness, bilateral Muscle weakness (generalized) Urinary tract infection without hematuria, site unspecified Nausea Nausea alone Irritable bowel syndrome, unspecified type documented in this encounter Administered Medications Inactive Administered Medications - up to 3 most recent administrations Medication Order MAR Action Action Date Dose Rate Site morphine injection 2 mg 2 mg, intravenous, Administer over 4 Minutes, Once, On 08/21/21 at 1208, For 1 dose Given 08/21/2021 12:37 PM CDT 2 mg sodium chloride 0.9% bolus 1,000 mL 1,000 mL, intravenous, at 1,000 mL/hr, Administer over 1 Hours, Once, On Sat08/21/21 at 1208, For 1 dose New Bag 08/21/2021 12:36 PM CDT 1,000 mL 1000 mL/hr documented in this encounter Discontinued Medications Medication Sig Discontinue Reason Start Date End Da te sulfamethoxazole-trimeth oprim (BACTRIM DS) 800-160 mg per tablet Take 1 tablet by mouth 2 (two) times a day for 7 days smx-tmp DS (BACTRIM) 800-160 mg tabs 08/19/2021 08/21/2021 documented as of this encounter Active and Recently Administered Medications Times are shown in CDT. Scheduled Medication Order 08/19/2021 08/20/2021 08/21/2021 morphine injection 2 mg (COMPLETED) 2 mg, intravenous, Administer over 4 Minutes, Once, On Sat08/21/21 at 1208, For 1 dose 1237 (Given - Provid er: Marquita Miranda RN) sodium chloride 0.9% bolus 1,000 mL (COMPLETED) 1,000 mL, intravenous, at 1,000 mL/hr, Administer over 1 Hours, Once, On Sat08/21/21 at 1208, For 1 dose 1236 (New Bag - Prov ider: Marquita Miranda RN)1503 (Stopped - Provider: Marquita Miranda RN) documented in this encounter Orders Nursing Count Last Ordered Date First Orde red Date PROVIDE EQUIPMENT / SUPPLIES AT BEDSIDE 1 0 08/21/2021 IV Count Last Ordered Date First Orde red Date SALINE LOCK IV 1 08/21/2021 documented in this encounter Additional Health Concerns Infection Onset Date Last Indicated Resolved Time COVID: Recovered Comment:Added based on recent COVID infection. 06/23/2021 08/17/2021 10/21/2021 3:06 AM C DT documented as of this encounter Care Teams Level Glass Forming Machine Operator Relationship Specialty Start Date End Date Sourav Jones NP PCP - General Family Medicine 08/21/21 08/21/21 No, Physician 06/08/21 documented as of this encounter
--- OUTSIDE RECORDS SUMMARY | 2024-06-06 00:37 | XMS_ITS | Encounter Summary ---
Author Organization [facility] Address [address] [place] [address] Care Team Providers Care Repeater Operator Name Role Phone No, Physician Unavailable Collin Valdez MD Primary Care Provider [phone] Encounter Details Date Type Department Care Team (Late st Contact Info) Description 04/12/2022 10:25 AM PARTS REMOVER Lab [facility] Building [address] [address] Frequent infections; Upper abdominal pain Social History Tobacco Use Types Packs/Day Years Used Date Smoking Tobacco: Never PHQ-2 Answer Date Recorded PHQ-2 Total Score (If total score is 3 or more points, staff should administer the PHQ-9) 0 04/12/2022 Comments No Sex and Gender Information Value Date Recorded Sex Assigned at Not on file Legal Sex Female 6:55 PM PARTS REMOVER Gender Identity Female 06/06/2022 7:40 AM PARTS REMOVER Sexual Orientation Not on file documented as of this encounter Miscellaneous Notes * Result Encounter Note - Lorie Vanessa NP - 04/13/2022 4:35 AM CST 1) low vitamin-D (18), recommend vitamin D3 2000 IU daily with a meal 2) normal GFR, CMP, lipase level, and amylase level 3) minimally elevated white blood cell count, improved from 3 weeks ago, was 15.6, now 11 S REMOVER documented in this encounter Plan of Treatment Not on file documented as of this encounter Procedures Procedure Name Priority Date/Time Associated Diagnosis Comments BLOOD MISC TO FARGO Routine 04/12/2022 10 :38 AM PARTS REMOVER EGFR Routine 04/12/2022 10:38 AM PARTS REMOVER Upper abdominal pain DIFFERENTIAL AUTO Routine 04/12/2022 10: 38 AM PARTS REMOVER Upper abdominal pain CBC WITH AUTO DIFFERENTIAL Routine 04/12/2022 10:38 AM PARTS REMOVER Upper abdominal pain VITAMIN D 25 HYDROXY Routine 04/12/2022 10:38 AM PARTS REMOVER Frequent infections LIPASE Routine 04/12/2022 10:38 AM PARTS REMOVER Upper abdominal pain AMYLASE Routine 04/12/2022 10:38 AM PARTS REMOVER Upper abdominal pain COMPREHENSIVE METABOLIC PANEL Routine 04/12/2022 10:38 AM PARTS REMOVER Upper abdominal pain documented in this encounter Results * eGFR (04/12/2022 10:38 AM PARTS REMOVER) [facility] eGFR 105 mL/min/1. 73 m2 [facility] [...] was last reviewed 2021. Testing performed by: [address] [address] Blood 04/12/2022 10:3 8 AM PARTS REMOVER 04/12/2022 11:50 AM PARTS REMOVER us Lorie Vanessa FINANCIAL COORDINATOR LAB BLOOD ORDERABLES Final Resul t [facility] [address] [facility] Department [place] [address] * (ABNORMAL) Differential, auto (04/12/2022 10:38 AM PARTS REMOVER) Neutrophil abs 7.6(H) 1.7 - 6.5 K/cumm FRAN Comment:Testing performed by : [address] [address] Imm gran abs 0.1 0.0 - 0.1 K/cumm FRAN Comment:Testing performed by : [address] [address] Lymphocyte abs 2.3 0.8 - 3.3 K/cumm [facility]AN Comment:Testing performed by : [address] [address] Monocyte abs 0.8 0.2 - 0.8 K/cumm [facility]AN Comment:Testing performed by : [address] [address] Eosinophil abs 0.1 0.0 - 0.5 K/cumm [facility]AN Comment:Testing performed by : [address] [address] Basophil abs 0.1 0.0 - 0.1 K/cumm FRAN Comment:Testing performed by : [address] [address] Neutrophil pct 69.0 % [facility] Comment: Interpretive Data Percent cell count reference ranges are not reported, since discordance with absolute values may lead to misinterpretation of CBC data. Current Interpretive Data was last revised on 2017. Testing performed by: [address] [address] Imm gran pct 0.5 % [facility] Comment: Interpretive Data Percent cell count reference ranges are not reported, since discordance with absolute values may lead to misinterpretation of CBC data. Current Interpretive Data was last revised on 2017. Testing performed by: [address] [address] Lymphocyte pct 20.9 % [facility] Comment: Interpretive Data Percent cell count reference ranges are not reported, since discordance with absolute values may lead to misinterpretation of CBC data. Current Interpretive Data was last revised on 2017. Testing performed by: [address] [address] Monocyte pct 7.6 % [facility] Comment: Interpretive Data Percent cell count reference ranges are not reported, since discordance with absolute values may lead to misinterpretation of CBC data. Current Interpretive Data was last revised on 2017. Testing performed by: [address] [address] Eosinophil pct 1.3 % [facility] Comment: Interpretive Data Percent cell count reference ranges are not reported, since discordance with absolute values may lead to misinterpretation of CBC data. Current Interpretive Data was last revised on 2017. Testing performed by: [address] [address] Basophil pct 0.7 % [facility] Comment: Interpretive Data Percent cell count reference ranges are not reported, since discordance with absolute values may lead to misinterpretation of CBC data. Current Interpretive Data was last revised on 2017. Testing performed by: [address] [place] [address] Blood 04/12/2022 10:3 8 AM PARTS REMOVER 04/12/2022 11:49 AM PARTS REMOVER us Lorie Vanessa NP LAB BLOOD ORDERABLES Final Resul t [facility] [address] [facility] Department [place] [address] * BLOOD MISC TO FARGO (04/12/2022 10:38 AM PARTS REMOVER) Test name, chem PN23, Streptococcus pneumoniae IgG Antibodies, 23 [facility] Comment:Testing performed by : [facility], [address] [place] [address]., [address] Misc See Footnote FRAN Comment: Test ?Result ?Flag ??Unit ?RefValue S. pneumoniae IgG Ab,23 serotypes,S ??Serotype 1 (1) ?15.4 ?mcg/mL ??>=2.3 ?Serotype 2(2) ? 2.1 ? mcg/mL ??>=1.0 ?Serotype 3 (3) ?5.1 ? mcg/mL ??>=1.8 ?Serotype 4 (4) ?1.1 ? mcg/mL ??>=0.6 ?Serotype 5 (5) ?1.5 ? mcg/mL ??>=10.7 ?Serotype 8 (8) ?3.2 ? mcg/mL ??>=2.9 ?Serotype 9N (9) ? See Footnote ?mcg/mL ??>=9.2 ?Unable to perform testing on serotype 9N (9) due to reagent ?issue. ??Serotype 12F (12) ? <0.4 ?mcg/mL ??>=0.6 ?Serotype 14 (14) ?1.8 ? mcg/mL ??>=7.0 ?Serotype 17F (17) ? 3.1 ? mcg/mL ??>=7.8 ?Serotype 19F (19) ? 12.8 ?mcg/mL ??>=15.0 ?Serotype 20 (20) ?0.6 ? mcg/mL ??>=1.3 ?Serotype 22F (22) ? 22.1 ?mcg/mL ??>=7.2 ?Serotype 23F (23) ? 31.6 ?mcg/mL ??>=8.0 ?Serotype 6B (26) ?3.6 ? mcg/mL ??>=4.7 ?Serotype 10A (34) ? 4.4 ? mcg/mL ??>=2.9 ?Serotype 11A (43) ? 1.8 ? mcg/mL ??>=2.4 ?Serotype 7F (51) ?6.0 ? mcg/mL ??>=3.2 ?Serotype 15B (54) ? 2.6 ? mcg/mL ??>=3.3 ?Serotype 18C (56) ? <0.4 ?mcg/mL ??>=3.3 ?Serotype 19A (57) ? 8.4 ? mcg/mL ??>=17.1 ?Serotype 9V (68) ?3.3 ? mcg/mL ??>=2.6 ?Serotype 33F (70) ? 0.6 ? mcg/mL ??>=1.7 ?Overall interpretation of pneumococcal antibody serology ?panel can be based on the reported 22 serotypes. Either of ?the two following conditions would be consistent with a ?normal response to Streptococcus pneumoniae vaccination: ?Antibody concentrations greater than or equal to the ?reference value for at least 50% of serotypes in either a ?pre- or post-vaccination sample. Antibody concentrations ?increased by 2-fold or greater for at least 50% of ?serotypes when comparing the pre- to the post-vaccination ?results. Optimal cut-offs (reference values) were derived ?by measuring serotype-specific IgG antibody levels in an ?adult cohort of 100 healthy individuals (previously ?unvaccinated) before and after pneumococcal vaccination and ?identifying the antibody level for each serotype that ?included the largest number of individuals with a negative ?response (below cut-off) pre-vaccination and a positive ?response (above cut-off) post-vaccination. ? ADDITIONAL INFORMATION ?All 23 serotypes assessed by this assay are included in the ?Pneumovax 23 vaccine. IgG antibody concentrations following ?Pneumovax 23 administration are a reflection of an ?individual's humoral immune response to polysaccharide ?antigens. Serotypes 1, 3, 4, 5, 6A (6), 14, 19F (19), 23F ?(23), 6B (26), 7F (51), 18C (56), 19A (57) and 9V (68) are ?included in the Prevnar-13 conjugate vaccine. Antibody ?concentrations following Prevnar-13 administration are a ?reflection of an individual's response to ?protein-conjugated antigens. Serotypes 2, 8, 9N (9), 12F ?(12), 17F (17), 20, 22F (22), 10A (34), 11A (43), 15B (54) ?and 33F (70) are present only in the Pneumovax 23 vaccine ?and not in Prevnar-13. Responses to these 11 serotypes are ?a reflection of an individual's response to polysaccharide ?antigens. Serotype 6A is only present in Prevnar-13. ?This test was developed and its performance characteristics ?determined by [facility] in a manner consistent with CLIA ?requirements. This test has not been cleared or approved by ?the U.S. Food and Drug Administration. ?Test Performed by: ?[facility] ?[address] [place] [address] ?[place] [employer]: Lexx Pierre M.D. Ph.D.; CLIA# [id number] Testing performed by: [address], [address] Blood 04/12/2022 10:3 8 AM PARTS REMOVER 04/12/2022 11:07 AM PARTS REMOVER Collin Valdez MD LAB BLOOD ORDERABLES Final Resul t Performing Organization Address [facility] de Phone Number [address] [place] [address] * Lipase (04/12/2022 10:38 AM PARTS REMOVER) Lipase 20 10 - 99 Units/L [facility]AN Comment:Testing performed by : [address], [address] Blood 04/12/2022 10:3 8 AM PARTS REMOVER 04/12/2022 11:50 AM PARTS REMOVER us Lorie Vanessa NP LAB BLOOD ORDERABLES Final Resul t Performing Organization Address [facility] de Phone Number [address] [place] [address] * Amylase (04/12/2022 10:38 AM PARTS REMOVER) Amylase 33 30 - 99 Units/L [facility] Comment:Testing performed by : [address] [address] Blood 04/12/2022 10:3 8 AM PARTS REMOVER 04/12/2022 11:50 AM PARTS REMOVER us Lorie Vanessa NP LAB BLOOD ORDERABLES Final Resul t [facility] Department [place] [address] * (ABNORMAL) CBC with auto differential (04/12/2022 10:38 AM PARTS REMOVER) WBC 11.0(H) 3.8 - 9.9 K/cumm [facility] Comment:Testing performed by : [address] [address] Hgb 13.3 11.9 - 15.5 g/dL [facility]AN Comment:Testing performed by : [address] [address] Hct 40.7 35.6 - 45.5 % [facility] Comment:Testing performed by : [address] [address] Plt 373 150 - 400 K/cumm [facility]AN Comment:Testing performed by : [address] [address] MPV 8.9(L) 9.1 - 12.3 fL [facility] Comment:Testing performed by : [address] [address] RBC 4.65 3.90 - 5.20 M/cumm [facility]AN Comment:Testing performed by : [address] [address] MCV 87.5 81.3 - 96.4 fL [facility]AN Comment:Testing performed by : [address] [address] MCH 28.6 27.1 - 33.3 pg [facility] Comment:Testing performed by : [address] [address] MCHC 32.7 32.3 - 35.7 g/dL [facility]AN Comment:Testing performed by : [address] [address] RDW CV 12.2 11.1 - 14.9 % [facility] Comment:Testing performed by : [address] [address] RDW SD 38.9 35.7 - 48.1 fL [facility] Comment:Testing performed by : [address] [address] NRBC abs 0.00 0.00 - 0.01 K/cumm [facility] Comment:Testing performed by : [address] [address] Blood 04/12/2022 10:3 8 AM PARTS REMOVER 04/12/2022 11:49 AM PARTS REMOVER us Lorie Vanessa NP LAB BLOOD ORDERABLES Final Resul t [facility] Department [place] [address] * Comprehensive metabolic panel (04/12/2022 10:38 AM PARTS REMOVER) Sodium 141 135 - 145 mmol/L [facility] Comment:Testing performed by : [address] [address] Potassium, pl 4.4 3.3 - 4.9 mmol/L [facility] Comment:Testing performed by : [address] [address] Chloride 104 97 - 110 mmol/L [facility]AN Comment:Testing performed by : [address] [address] CO2 26 22 - 32 mmol/L [facility] Comment:Testing performed by : [address] [address] Anion gap 11 2 - 15 mmol/L [facility] Comment:Testing performed by : [address] [address] BUN 12 8 - 25 mg/dL [facility] Comment:Testing performed by : [address] [address] Creatinine 0.80 0.60 - 1.10 mg/dL [facility] Comment:Testing performed by : [address] [place] [address] Glucose 93 70 - 199 mg/dL [facility] Comment: Interpretive Data Fasting glucose >/= [...] was last revised 2017. Testing performed by: [address] [address] Calcium 9.4 8.5 - 10.3 mg/dL [facility] Comment:Testing performed by : [address] [address] Bilirubin, total 0.4 0.1 - 1.2 mg/dL [facility] Comment:Testing performed by : [address] [address] Protein, pl 7.2 6.5 - 8.5 g/dL [facility] Comment:Testing performed by : [address] [address] Albumin 4.1 3.5 - 5.0 g/dL [facility] Comment:Testing performed by : [address] [address] Alk phos 100 40 - 130 Units/L [facility] Comment:Testing performed by : [address] [address] ALT 7 7 - 45 Units/L [facility] Comment:Testing performed by : [address] [address] AST 15 10 - 45 Units/L [facility] Comment:Testing performed by : [address] [address] Blood 04/12/2022 10:3 8 AM PARTS REMOVER 04/12/2022 11:50 AM PARTS REMOVER us Lorie R. Otf FINANCIAL COORDINATOR LAB BLOOD ORDERABLES Final Resul t Performing Organization Address City/[facility]/ZIP Co de Phone Number FRAN [address] [place] [address] * (ABNORMAL) Vitamin D 25 hydroxy (04/12/2022 10:38 AM PARTS REMOVER) Vitamin D 25-OH 18.0(L) 30.0 - 80.0 ng/mL [facility] Comment:Below Ref Range Blood 04/12/2022 10:3 8 AM PARTS REMOVER 04/12/2022 2:50 PM PARTS REMOVER Lorie Vanessa NP LAB BLOOD ORDERABLES Final Resul t Performing Organization Address [facility] de Phone Number FRAN [address] [address] documented in this encounter Visit Diagnoses Diagnosis Frequent infections Upper abdominal pain documented in this encounter Care Teams Repeater Operator Relationship Specialty Start Date End Date Collin Valdez MD PCP - General Family Medicine 04/12/22 05/28/22 No, Physician 06/08/21 documented as of this encounter
--- OUTSIDE RECORDS SUMMARY | 2024-06-06 00:37 | XMS_ITS | Encounter Summary ---
Author Organization [facility] Address [address] [place] [id number] Care Team Providers Care Operations Coordinator Name Role Phone No, Physician Unavailable Collin Valdez MD Primary Care Provider [phone] Encounter Details Date Type Department Care Team (Late st Contact Info) Description 04/18/2022 Telephone [facility] at [address] [place] [address] Collin Valdez MD [facility] [address] [address] Social History Tobacco Use Types Packs/Day Years Used Date Smoking Tobacco: Never PHQ-2 Answer Date Recorded PHQ-2 Total Score (If total score is 3 or more points, staff should administer the PHQ-9) 0 04/12/2022 Comments No Sex and Gender Information Value Date Recorded Sex Assigned at Not on file Legal Sex Female 6:55 PM [employer] Gender Identity Female 06/06/2022 7:40 AM [employer]ESTER [employer] Sexual Orientation Not on file documented as of this encounter Miscellaneous Notes * Telephone Encounter - Shilo Michael MA - 04/18/2022 12:17 PM CST Faxed request for most recent pap to Dr. Campbell at [facility] at [phone]. STER CAPPER documented in this encounter Plan of Treatment Not on file documented as of this encounter Visit Diagnoses Not on filedocumented in this encounter Care Teams Operations Coordinator Relationship Specialty Start Date End Date Collin Valdez MD PCP - General Family Medicine 04/12/22 05/28/22 No, Physician 06/08/21 documented as of this encounter
--- OUTSIDE RECORDS SUMMARY | 2024-06-06 00:37 | XMS_ITS | Encounter Summary ---
Author Organization [facility] Address [address] [facility] [facility] [address] [place] [address] Care Team Providers Care Contract Management Specialist Name Role Phone No, Physician Unavailable Collin Valdez MD Primary Care Provider [phone] Reason for Referral * Consultation (Routine) - Closed Specialty Diagnoses / Procedures Referred By Cyn burnett Referred To Contact Gastroenterology Diagnoses Upper abdominal pain Nausea Loire Vanessa NP [facility] [address] Phone: tel: fax: [facility] Gastroenterology at [address] [place] [address] Phone: tel: Referral ID Status Reason Start Date Expiration Date V isits Requested Visits Authorized [id number] Closed Specialty Services Required 04/12/2022 05/12/2023 12 12 Question Answer Please select the performing region: External Order [[id number]] # of visits: 1 Comments Patient to call back with name of chosen provider. EL KILN OPERATOR * Consultation (Routine) - Closed Specialty Diagnoses / Procedures Referred By Cyn t Referred To Contact Cardiology Diagnoses Orthostatic hypotension Dizziness Tachycardia, unspecified Lorie Vanessa NP [address] [place] [address] Phone: tel: fax: Laurent Bueno MD Phone: tel: fax: Referral ID Status Reason Start Date Expiration Date V isits Requested Visits Authorized [id number] Closed Specialty Services Required 04/12/2022 05/12/2023 12 12 Question Answer Please select the performing region: [facility] [[id number]] Please select the performing department: [facility] [place] [facility] [[id number]] To provider: LAURENT BUENO [[id number]] # of visits: 1 EL KILN OPERATOR Reason for Visit * Reason Comments New Patient Encounter Details Date Type Department Care Team (Late st Contact Info) Description 04/12/2022 9:00 AM TUNNEL KILN OPERATOR Office Visit [facility] Primary Care at [address] [phone] Lorie Vanessa NP [address] [place] [address] Encounter to establish care (Primary Dx); Orthostatic hypotension; Dizziness; Tachycardia, unspecified; Upper abdominal pain; Frequent infections; Ingrown right big toenail; Nausea; Shortness of breath Social History Tobacco Use Types Packs/Day Years Used Date Smoking Tobacco: Never PHQ-2 Answer Date Recorded PHQ-2 Total Score (If total score is 3 or more points, staff should administer the PHQ-9) 0 04/12/2022 Comments No Sex and Gender Information Value Date Recorded Sex Assigned at Not on file Legal Sex Female 6:55 PM TUNNEL KILN OPERATOR Gender Identity Female 06/06/2022 7:40 AM TUNNEL KILN OPERATOR Sexual Orientation Not on file documented as of this encounter Last Filed Vital Signs Vital Sign Reading Time Taken Comments Blood Pressure 106/68 04/12/2022 8:55 AM TUNNEL KILN OPERATOR Pulse 95 04/12/2022 8:55 AM TUNNEL KILN OPERATOR Temperature 37.1 ??C (98.7 ??F) 04/12/2022 8:55 AM CS T Respiratory Rate - - Oxygen Saturation 98% 04/12/2022 8:55 AM TUNNEL KILN OPERATOR Inhaled Oxygen Concentration - - Weight 123.8 kg (273 lb) 04/12/2022 8:55 AM TUNNEL KILN OPERATOR Height 162.6 cm (5' 4.02 ) 04/12/2022 8:55 AM CS T Body Mass Index 46.84 04/12/2022 8:55 AM TUNNEL KILN OPERATOR documented in this encounter Patient Instructions * Patient Instructions* Lorie Vanessa NP - 04/12/2022 9:00 AM TUNNEL KILN OPERATOR Start antibiotic and Diflucan. Refills for your albuterol inhaler and for Zofran have been sent to your pharmacy per your request. You have also been prescribed pantoprazole once daily in morning 1/2hour before mealtime. Get fasting lab work done, be sure to fast for 12 hours prior to getting lab work done, nothing to eat or drink but water, black coffee, or plain hot or iced tea. Recommend checking with insurance company before getting lab work done to verify preferred lab and coverage for lab work. You have been referred to cardiology for evaluation of orthostatic hypotension, dizziness, and tachycardia and gastroenterology for evaluation of upper abdominal pain and nausea, numbers have been provided to call and schedule appointments. Recommend follow-up in 6 months for annual physicalexam. EL KILN OPERATOR EL KILN OPERATOR EL KILN OPERATOR EL KILN OPERATOR EL KILN OPERATOR documented in this encounter Ordered Prescriptions Prescription Sig Dispense Quantity Refills Last Filled Start Date End Date ondansetron ODT (ZOFRAN-ODT) 8 mg disintegrating tabletIndications:Na usea Take 1 tablet (8 mg total) by mouth every 8 (eight) hours as needed for nausea or vomiting 20 tablet 04/12/2022 3 albuterol HFA (PROVENTIL HFA,VENTOLIN HFA,PROAIR HFA) 90 mcg/actuation inhalerIndications:S hortness of breath Inhale 2 puffs every 4 (four) hours as needed for wheezing or shortness of breath 1 each 1 04/12/2022 3 fluconazole (DIFLUCAN) 150 mg tablet Take 1 tablet (150 mg total) by mouth once for 1 dose 1 tablet 04/12/2022 2 cephalexin (KEFLEX) 500 mg capsuleIndications:I ngrown right big toenail Take 1 capsule (500 mg total) by mouth 2 (two) times a day for 10 days 20 capsule 04/12/[address] (PROTONIX) 40 mg EC tabletIndications:Up per abdominal pain,Nausea Take 1 tablet (40 mg total) by mouth daily 30 tablet 04/12/2022 2 documented in this encounter Progress Notes * Lorie Vanessa, SUPERVISOR NEWSPAPER DELIVERIES - 04/12/2022 9:00 AM CST Subjective/Objective Patient ID: Emily Guerrier is a 26 y.o. female. Chief Complaint New Patient HPI She is a new patient here to establish care and to discuss: 1) upper abdominal pain for the past month, accompanied by nausea with vomiting, worse with eating or drinking, seen in ER in 07/2021 and most recently on 03/21/22 for abdominal pain, sent home with Farida (helps, taking 8 mg tablet TID PRN, requesting refill) and Riky (only took one dose). She hasalso tried omeprazole once daily x 2 weeks with no perceived benefit. Her pain is located in the center of her upper abdomen, comes and goes, describes as a burning, cramping-type thing, that radiates to her lower abdomen. She states she feels better when she doesn't eat, hasn't had much of an appetite, but is on phentermine prescribed by poiser balance. 2) I feel like I am constantly sick. I haven't had a day when I haven't had a respiratory or stomach issue in years. 3) ingrown toenail right great toe, has been worsening the past couple of days, noticed a small amount of purulent drainage 4) heart rate increases upon standing, not sure when it started, but has also had dizziness upon standing for the past month. Her past medical history, in addition to above, includes PCOS (sees a [facility] at [facility]), allergic rhinitis (cetirizine), bipolar/depression (Lamictal, sertraline), anxiety (sertraline, clonazepam), insomnia (trazodone) and GERD. She has medication allergies to fluoxetine and nitrofurantoin. She has had banding of her hemorrhoids, states still problematic at times. She has had the COVID series and her boosters are up-to-date, no record of last Tdap. 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 Her family history includes COPD (mother), hypertension (mother), squamous cell carcinoma (father), heart failure (brother), diabetes (maternal grandmother), and mental illness (maternal grandmother). Review of Systems Constitutional: Negative for chills, diaphoresis and fever. HENT: Negative for congestion, sneezing and sore throat. Eyes: Negative for redness and itching. Respiratory: Negative for cough and shortness of breath. Heart rate increases upon standing. Gastrointestinal: Positive for abdominal pain (epigastric), anal bleeding (states has palpable/visible hemorrhoids, had banding during colonoscopy in 2018 (Dr. Guzman)), nausea and vomiting. Negative for blood in stool, constipation, diarrhea and rectal pain. Musculoskeletal: Negative for myalgias. Skin: Positive for wound. Negative for rash. Ingrown toenail right foot. Allergic/Immunologic: Positive for immunocompromised state (states she is always sick). Neurological: Positive for dizziness. Negative for weakness and headaches. Facial asymmetry: upon standing. Vitals BP 106/68 (BP Location: Right arm, Patient Position: Sitting) Pulse 95 Temp 37.1 ??C (98.7 ??F) (Temporal) Ht 162.6 cm (5' 4.02 ) Wt 123.8 kg (273 lb) SpO2 98% BMI 46.84 kg/m?? Physical Exam Vitals and nursing note reviewed. Constitutional: General: She is not in acute distress. Appearance: Normal appearance. She is obese. She is not ill-appearing, toxic- appearing or diaphoretic. HENT: Head: Normocephalic and atraumatic. Eyes: General: No scleral icterus. Right eye: No discharge. Left eye: No discharge. Conjunctiva/sclera: Conjunctivae normal. Cardiovascular: Rate and Rhythm: Normal rate and regular rhythm. Heart sounds: Normal heart sounds. No murmur heard. Comments: Blood pressure lying-120/66, sitting 110/64, standing 100/62, pulse was 113 sitting, increased to 132 upon standing. Pulmonary: Effort: Pulmonary effort is normal. Breath sounds: Normal breath sounds. No wheezing, rhonchi or rales. Abdominal: General: Abdomen is flat. Bowel sounds are normal. Palpations: Abdomen is soft. Tenderness: There is abdominal tenderness (epigastric). There is no guarding or rebound. Musculoskeletal: General: Tenderness present. No swelling, deformity or signs of injury. Right lower leg: No edema. Left lower leg: No edema. Comments: Surrounding skin of right great toenail with mild erythema and edema with dried blood/exudate along medial and lateral sides of nail. Skin: Coloration: Skin is not jaundiced or pale. Neurological: General: No focal deficit present. Mental Status: She is alert and oriented to person, place, and time. Psychiatric: Mood and Affect: Mood normal. Behavior: Behavior normal. Thought Content: Thought content normal. Assessment/Plan Return in about 6 months (around 10/10/2022) for Annual physical. Diagnoses and all orders for this visit: Encounter to establish care (Z76.89) (Primary) Assessment & Plan: Reviewed past and current medical history, surgical history, social history, family history, current medications, and allergies. A ROS and PE were performed. Medications and labs were ordered and referrals were made. Discussed well woman exam/cervical cancer screening. Patient will follow-up in 6 months for an annual physical exam or sooner if needed. Orthostatic hypotension (I95.1) Assessment & Plan: Chronicity and stability unknown, with 20 point drop in systolic from lying to standing-advised to get fasting lab work done. Referred to cardiology, number provided to call and schedule appointment. Orders: - Ambulatory referral to Cardiology; Future - CBC with auto differential; Future - Comprehensive metabolic panel; Future Dizziness (R42) Assessment & Plan: Recent onset, occurs with standing, with orthostatic hypotension as evidenced by a 20 point drop insystolic pressure going from lying to standing-advised to get fasting lab work done. Referred to cardiology, number provided to call and schedule appointment. Orders: - Ambulatory referral to Cardiology; Future - CBC with auto differential; Future - Comprehensive metabolic panel; Future Tachycardia, unspecified (R00.0) Assessment & Plan: Chronicity and stability unknown, with increase in heart rate from 113 to 132 going from sitting tostanding position-advised to get fasting lab work done. Referred to cardiology, number provided to call and schedule appointment. Orders: - Ambulatory referral to Cardiology; Future - CBC with auto differential; Future - Comprehensive metabolic panel; Future Upper abdominal pain (R10.10) Assessment & Plan: Chronicity and stability unknown-prescribed pantoprazole once daily in morning 1/2 hour before mealtime. Advised to get fasting lab work done. Referred to gastroenterology, number provided to call and schedule appointment. Orders: - pantoprazole DR (PROTONIX) 40 mg EC tablet; Take 1 tablet (40 mg total) by mouth daily - Ambulatory referral to Gastroenterology; Future - Lipase; Future - Amylase; Future - CBC with auto differential; Future - Comprehensive metabolic panel; Future Frequent infections (Z86.19) Assessment & Plan: Chronic, recurrent upper respiratory infections and gastrointestinal problems- ordered strep pneumoniae antibody serotype test. Orders: - CBC with auto differential; Future - Vitamin D 25 hydroxy; Future - Strep pneumoniae antibody serotypes; Future Ingrown right big toenail (L60.0) Assessment & Plan: Acute-prescribed cephalexin 500 mg BID x 1 week, Diflucan also sent to pharmacy per patient request. Orders: - cephalexin (KEFLEX) 500 mg capsule; Take 1 capsule (500 mg total) by mouth 2 (two) times a day for 10 days Nausea (R11.0) Assessment & Plan: Chronicity and stability unknown-prescribed pantoprazole once daily in morning 1/2 hour before mealtime. Advised to get fasting lab work done. Referred to gastroenterology, number provided to call and schedule appointment. Orders: - pantoprazole DR (PROTONIX) 40 mg EC tablet; Take 1 tablet (40 mg total) by mouth daily - Ambulatory referral to Gastroenterology; Future - Lipase; Future - Amylase; Future - CBC with auto differential; Future - Comprehensive metabolic panel; Future - ondansetron ODT (ZOFRAN-ODT) 8 mg disintegrating tablet; Take 1 tablet (8 mg total) by mouth every 8 (eight) hours as needed for nausea or vomiting Shortness of breath (R06.02) Assessment & Plan: Chronic, episodic, relieved with inhaler-refill for albuterol MDI sent to pharmacy per patient request. Orders: - albuterol HFA (PROVENTIL HFA,VENTOLIN HFA,PROAIR HFA) 90 mcg/actuation inhaler; Inhale 2 puffs every 4 (four) hours as needed for wheezing or shortness of breath Other orders - fluconazole (DIFLUCAN) 150 mg tablet; Take 1 tablet (150 mg total) by mouth once for 1 dose *This note is dictated using Nonp[employer] voice recognition software, variances in spelling and vocabulary are possible and unintentional.* Lorie Vanessa NP EL KILN OPERATOR documented in this encounter Miscellaneous Notes * Assessment & Plan Note - Lorie Vanessa NP - 04/15/2022 11:50 AM CSTAssociated Problem(s): Dizziness Recent onset, occurs with standing, with orthostatic hypotension as evidenced by a 20 point drop insystolic pressure going from lying to standing-advised to get fasting lab work done. Referred to cardiology, number provided to call and schedule appointment. EL KILN OPERATOR EL KILN OPERATOR * Assessment & Plan Note - Lorie Vanessa NP - 04/15/2022 11:49 AM CSTAssociated Problem(s): Preop cardiovascular exam (Resolved 12/11/2022) Reviewed past and current medical history, surgical history, social history, family history, current medications, and allergies. A ROS and PE were performed. Medications and labs were ordered and referrals were made. Discussed well woman exam/cervical cancer screening. Patient will follow-up in 6 months for an annual physical exam or sooner if needed. EL KILN OPERATOR * Assessment & Plan Note - Lorie Vanessa NP - 04/15/2022 11:48 AM CSTAssociated Problem(s): Frequent infections Chronic, recurrent upper respiratory infections and gastrointestinal problems- ordered strep pneumoniae antibody serotype test. EL KILN OPERATOR * Assessment & Plan Note - Lorie Vanessa NP - 04/15/2022 11:47 AM CSTAssociated Problem(s): Ingrown right big toenail (Resolved 12/11/2022) Acute-prescribed cephalexin 500 mg BID x 1 week, Diflucan also sent to pharmacy per patient request. EL KILN OPERATOR * Assessment & Plan Note - Lorie Vanessa NP - 04/15/2022 11:47 AM CSTAssociated Problem(s): Nausea Chronicity and stability unknown-prescribed pantoprazole once daily in morning 1/2 hour before mealtime. Advised to get fasting lab work done. Referred to gastroenterology, number provided to call and schedule appointment. EL KILN OPERATOR * Assessment & Plan Note - Lorie Vanessa NP - 04/15/2022 11:43 AM CSTAssociated Problem(s): Orthostatic hypotension Chronicity and stability unknown, with 20 point drop in systolic from lying to standing-advised to get fasting lab work done. Referred to cardiology, number provided to call and schedule appointment. EL KILN OPERATOR EL KILN OPERATOR EL KILN OPERATOR * Assessment & Plan Note - Lorie Vanessa NP - 04/15/2022 11:43 AM CSTAssociated Problem(s): GALEANO (dyspnea on exertion) Chronic, episodic, relieved with inhaler-refill for albuterol MDI sent to pharmacy per patient request. EL KILN OPERATOR * Assessment & Plan Note - Lorie Vanessa NP - 04/15/2022 11:41 AM CSTAssociated Problem(s): Tachycardia, unspecified Chronicity and stability unknown, with increase in heart rate from 113 to 132 going from sitting tostanding position-advised to get fasting lab work done. Referred to cardiology, number provided to call and schedule appointment. EL KILN OPERATOR EL KILN OPERATOR EL KILN OPERATOR EL KILN OPERATOR EL KILN OPERATOR * Assessment & Plan Note - Lorie Vanessa NP - 04/15/2022 11:40 AM CSTAssociated Problem(s): Upper abdominal pain (Resolved 12/11/2022) Chronicity and stability unknown-prescribed pantoprazole once daily in morning 1/2 hour before mealtime. Advised to get fasting lab work done. Referred to gastroenterology, number provided to call and schedule appointment. EL KILN OPERATOR EL KILN OPERATOR EL KILN OPERATOR EL KILN OPERATOR documented in this encounter Plan of Treatment Scheduled Referrals Name Type Priority Associated Diagnoses Order Schedule Ambulatory referral to Cardiology Outpatient Referral Routine Orthostatic hypotension Dizziness Tachycardia, unspecified Expected: 04/26/2022 (Approximate), Expires: 04/12/2023 Ambulatory referral to Gastroenterology Outpatient Referral Routine Upper abdominal pain Nausea Expected: 04/26/2022 (Approximate), Expires: 04/12/2023 documented as of this encounter Results * (ABNORMAL) Vitamin D 25 hydroxy (04/12/2022 10:38 AM TUNNEL KILN OPERATOR) Pathologist [facility] Vitamin D 25-OH 18.0(L) 30.0 - 80.0 ng/mL [facility] Comment:Below Ref Range Blood 04/12/2022 10:3 8 AM TUNNEL KILN OPERATOR 04/12/2022 2:50 PM TUNNEL KILN OPERATOR us Lorie Vanessa SUPERVISOR [employer]SP[employer]IVER[employer] LAB BLOOD ORDERABLES Final Resul t [place] [address] [facility] Department [place] [address] * Comprehensive metabolic panel (04/12/2022 10:38 AM TUNNEL KILN OPERATOR) [facility] Sodium 141 135 - 145 mmol/L [facility] Comment:Testing performed by : [address] [address] Potassium, pl 4.4 3.3 - 4.9 mmol/L [facility] Comment:Testing performed by : [address] [address] Chloride 104 97 - 110 mmol/L [facility] Comment:Testing performed by : [address] [address] CO2 26 22 - 32 mmol/L [facility] Comment:Testing performed by : [address] [address] Anion gap 11 2 - 15 mmol/L [facility] Comment:Testing performed by : [address] [address] BUN 12 8 - 25 mg/dL [facility] Comment:Testing performed by : [address] [address] Creatinine 0.80 0.60 - 1.10 mg/dL [facility] Comment:Testing performed by : [address] [address] Glucose 93 70 - 199 mg/dL [facility] Comment: Interpretive Data Fasting glucose >/= [...] last revised 2017. Testing performed by: [address] [address] Calcium 9.4 8.5 - 10.3 mg/dL [facility] Comment:Testing performed by : [address] [address] Bilirubin, total 0.4 0.1 - 1.2 mg/dL [facility] Comment:Testing performed by : [address] [address] Protein, pl 7.2 6.5 - 8.5 g/dL [facility] Comment:Testing performed by : [address] [address] Albumin 4.1 3.5 - 5.0 g/dL [facility] Comment:Testing performed by : [address] [address] Alk phos 100 40 - 130 Units/L [facility] Comment:Testing performed by : [address] [address] ALT 7 7 - 45 Units/L [facility] Comment:Testing performed by : [address] [address] AST 15 10 - 45 Units/L [facility] Comment:Testing performed by : [address] [address] Blood 04/12/2022 10:3 8 AM TUNNEL KILN OPERATOR 04/12/2022 11:50 AM TUNNEL KILN OPERATOR us Lorie Vanessa NP LAB BLOOD ORDERABLES Final Resul t [facility] [address] [facility] Department [place] [address] * (ABNORMAL) CBC with auto differential (04/12/2022 10:38 AM TUNNEL KILN OPERATOR) WBC 11.0(H) 3.8 - 9.9 K/cumm [facility] Comment:Testing performed by : [address] [address] Hgb 13.3 11.9 - 15.5 g/dL [facility] Comment:Testing performed by : [address] [address] Hct 40.7 35.6 - 45.5 % [facility] Comment:Testing performed by : [address] [address] Plt 373 150 - 400 K/cumm [facility] Comment:Testing performed by : [address] [address] MPV 8.9(L) 9.1 - 12.3 fL [facility] Comment:Testing performed by : [address] [address] RBC 4.65 3.90 - 5.20 M/cumm [facility] Comment:Testing performed by : [address] [address] MCV 87.5 81.3 - 96.4 fL [facility] Comment:Testing performed by : [address] [address] MCH 28.6 27.1 - 33.3 pg [facility] Comment:Testing performed by : [address] [address] MCHC 32.7 32.3 - 35.7 g/dL [facility] Comment:Testing performed by : [address] [address] RDW CV 12.2 11.1 - 14.9 % [facility] Comment:Testing performed by : [address] [address] RDW SD 38.9 35.7 - 48.1 fL [facility] Comment:Testing performed by : [address] [address] NRBC abs 0.00 0.00 - 0.01 K/cumm [facility] Comment:Testing performed by : [address] [address] Blood 04/12/2022 10:3 8 AM TUNNEL KILN OPERATOR 04/12/2022 11:49 AM TUNNEL KILN OPERATOR us Lorie Vanessa NP LAB BLOOD ORDERABLES Final Resul t Performing Organization Address City/[facility]/ZIP Co de Phone Number [address] [place] [place] [address] * Amylase (04/12/2022 10:38 AM TUNNEL KILN OPERATOR) Amylase 33 30 - 99 Units/L [facility] Comment:Testing performed by : [address] [address] Blood 04/12/2022 10:3 8 AM TUNNEL KILN OPERATOR 04/12/2022 11:50 AM TUNNEL KILN OPERATOR us Lorie Vanessa NP LAB BLOOD ORDERABLES Final Resul t [address] [place] [address] * Lipase (04/12/2022 10:38 AM TUNNEL KILN OPERATOR) Lipase 20 10 - 99 Units/L [facility] Comment:Testing performed by : [address] [address] Blood 04/12/2022 10:3 8 AM TUNNEL KILN OPERATOR 04/12/2022 11:50 AM TUNNEL KILN OPERATOR us Lorie Vanessa NP LAB BLOOD ORDERABLES Final Resul t [facility] [address] [facility] Department [place] [address] documented in this encounter Visit Diagnoses Diagnosis Encounter to establish care- Primary Orthostatic hypotension Dizziness Dizziness and giddiness Tachycardia, unspecified Upper abdominal pain Frequent infections Ingrown right big toenail Ingrowing nail Nausea Nausea alone Shortness of breath documented in this encounter Discontinued Medications Medication Sig Discontinue Reason Start Date End Da te sertraline (ZOLOFT) 25 mg tablet 08/15/2021 04/12/2022 ondansetron ODT (ZOFRAN-ODT) 4 mg disintegrating tablet Take 1 tablet (4 mg total) by mouth every 8 (eight) hours as needed for nausea or vomiting 03/21/2022 04/12/2022 HYDROcodone-acetaminophe n (NORCO) 5-325 mg per tabletIndications:Pain Take 1 tablet by mouth every 6 (six) hours as needed for pain 03/21/2022 04/12/2022 ciprofloxacin (CIPRO) 250 mg tablet Take 1 tablet (250 mg total) by mouth every 12 (twelve) hours 08/21/2021 04/12/2022 fluconazole (DIFLUCAN) 150 mg tablet Take only if you get symptoms for a yeast infection due to antibiotics 08/19/2021 04/12/2022 omeprazole (PriLOSEC) 20 mg capsule omeprazole 20 mg capsule,delayed release Alternate therapy 11/23/2018 04/12/2022 albuterol HFA (PROVENTIL HFA,VENTOLIN HFA,PROAIR HFA) 90 mcg/actuation inhaler Ventolin HFA 90 mcg/actuation aerosol inhaler Reorder 08/06/2019 04/12/2022 documented as of this encounter Historical Medications * This list may reflect changes made after this encounter. lamoTRIgine (LaMICtal) 100 mg tablet Take 1 tablet (100 mg total) by mouth nightly 12/28/2021 clonazePAM (KlonoPIN) 0.5 mg tablet Take 1 tablet (0.5 mg total) by mouth daily as needed sertraline (ZOLOFT) 100 mg tablet Take 200 mg by mouth daily 3 traZODone (DESYREL) 50 mg tablet Take 2 tablets (100 mg total) by mouth nightly 01/01/2022 3 vit [id number] c 28 mg iron- 800 mcg tablet Take 1 tablet by mouth daily 01/24/2022 3 phentermine 37.5 mg capsule Take 1 capsule (37.5 mg total) by mouth daily 02/23/2022 3 omeprazole (PriLOSEC) 20 mg capsule omeprazole 20 mg capsule,delayed release 11/23/2018 2 albuterol HFA (PROVENTIL HFA,VENTOLIN HFA,PROAIR HFA) 90 mcg/actuation inhaler Ventolin HFA 90 mcg/actuation aerosol inhaler 08/06/2019 2 added in this encounter Care Teams Contract Management Specialist Relationship Specialty Start Date End Date Collin Valdez MD PCP - General Family Medicine 04/12/22 05/28/22 Mel Physician 06/08/21 documented as of this encounter
--- OUTSIDE RECORDS SUMMARY | 2024-06-06 00:37 | XMS_ITS | Encounter Summary ---
Author Organization [facility] Address [address] [facility] [address] [place] [address] Care Team Providers Care Oak Tanner Name Role Phone No, Physician Unavailable Lorie Vanessa NP Primary Care Provider Reason for Visit * Reason Comments Follow-up Gastro issues; Cyst R Neck; has been pi cking at it; W-1; OTC Rx neosporin; Encounter Details Date Type Department Care Team ([facility] st Contact Info) Description 06/06/2022 8:30 AM YARN SKEINS EXAMINER Office Visit [facility] Medical [facility] Primary Care at [place] [id number] [phone] Lorie Vanessa FLOORING MACHINE OPERATOR [address] [place] [phone] Nausea (Primary Dx); Amenorrhea; Need for vaccination; Upper abdominal pain; Tachycardia, unspecified; Frequent infections; Abrasion of neck, initial encounter Social History Tobacco Use Types Packs/Day Years Used Date Smoking Tobacco: Never PHQ-2 Answer Date Recorded PHQ-2 Total Score (If total score is 3 or more points, staff should administer the PHQ-9) 0 04/12/2022 Comments No Sex and Gender Information Value Date Recorded Sex Assigned at Not on file Legal Sex Female 6:55 PM YARN SKEINS EXAMINER Gender Identity Female 06/06/2022 7:40 AM YARN SKEINS EXAMINER Sexual Orientation Not on file documented as of this encounter Last Filed Vital Signs Vital Sign Reading Time Taken Comments Blood Pressure 120/74 06/06/2022 8:36 AM YARN SKEINS EXAMINER Pulse 75 06/06/2022 8:36 AM YARN SKEINS EXAMINER Temperature 36.6 ??C (97.9 ??F) 06/06/2022 8:36 AM CS T Respiratory Rate 14 06/06/2022 8:36 AM YARN SKEINS EXAMINER Oxygen Saturation 99% 06/06/2022 8:36 AM YARN SKEINS EXAMINER Inhaled Oxygen Concentration - - Weight 126.6 kg (279 lb 1.6 oz) 06/06/2022 8:36 AM YARN SKEINS EXAMINER Height 162.6 cm (5' 4.02 ) 06/06/2022 8:36 AM CS T Body Mass Index 47.88 06/06/2022 8:36 AM YARN SKEINS EXAMINER documented in this encounter Patient Instructions * Patient Instructions* Lorie Vanessa NP - 06/06/2022 8:30 AM YARN SKEINS EXAMINER Increase pantoprazole to 40 mg twice daily, new prescription sent to pharmacy along with a refill for Zofran per your request. Can apply Neosporin to abrasion on neck as directed as needed, monitor for signs of infection. A urine test has been ordered. Keep scheduled appointments with Cardiology and Gastroenterology. You have been given a Pneumovax 23 and Tdap vaccine today. Follow-up in 6 months for annual physical exam. SKEINS EXAMINER SKEINS EXAMINER SKEINS EXAMINER SKEINS EXAMINER documented in this encounter Ordered Prescriptions Prescription Sig Dispense Quantity Refills Last Filled Start Date End Date pantoprazole DR (PROTONIX) 40 mg EC tabletIndications:Na usea,Upper abdominal pain Take 1 tablet (40 mg total) by mouth 2 (two) times a day 60 tablet 06/06/2022 3 ondansetron ODT (ZOFRAN-ODT) 8 mg disintegrating tabletIndications:Na usea Take 1 tablet (8 mg total) by mouth every 8 (eight) hours as needed for nausea or vomiting 30 tablet 06/06/2022 3 documented in this encounter Progress Notes * Lorie Vanessa, FLOORING MACHINE OPERATOR - 06/06/2022 8:30 AM CST Images from the original note were not included. Subjective/Objective Patient ID: Emily Guerrier is a 26 y.o. female. Chief Complaint Follow-up (Gastro issues; ) and Cyst (R Neck; has been picking at it; W-1; OTC Rx neosporin; ) HPI She is an established patient, first/last seen on 04/12/22 for several concerns, who returns today for a follow-up visit for: 1) Upper abdominal pain, accompanied by nausea with vomiting, worse with eating or drinking, seen in ER twice in 2021, sent home with Zofran, prescribed Protonix 40 mg once daily at last visit, states the pain is fine, but the nausea won't go away. She had a negative at-home test 2 weeks ago, takes control daily, has missed a few doses, but I try to catch up when I do. She denies breast tenderness. She was previously referred to a general assembler installer, has an appointment on 08/21/22. 2) At her initial/last visit, she stated I feel like I am constantly sick. I haven't had a day when I haven't had a respiratory or stomach issue in years, ordered strep pneumoniae antibody serotypes, was immune to 12/23 serotypes tested, advised would benefit from Pneumovax 23 vaccination to helpboost immunity, and if continues to get sick frequently after vaccination, can draw a post-vaccine titer to assess immune response to vaccination and/or refer to pack worker supervisor. 3) Heart rate increase upon standing, chronicity unknown, states continues to happen, also with dizziness upon standing, negative when tested for orthostatic hypotension at last visit. She has an appointment with a wood machine carver on 07/13/22 for tachycardia and dizziness. 4) Sore on neck, states has been picking it, worried that it might be infected. Her past medical history, in addition to above, includes PCOS (sees a slice cutting machine operator helper at [facility]), allergic rhinitis (cetirizine), bipolar/depression (Lamictal, sertraline), anxiety (sertraline, clonazepam), insomnia (trazodone) and GERD. She has medication allergies to fluoxetine and nitrofurantoin. She has had banding of her hemorrhoids, still problematic at times. She has had the COVID series and her boosters are up-to-date, no record of last Tdap. 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 Her family history includes COPD(mother), hypertension (mother), squamous cell carcinoma (father), heart failure (brother), diabetes (maternal grandmother), and mental illness (maternal grandmother). Review of Systems Constitutional: Negative for chills, diaphoresis and fever. HENT: Negative for congestion, sneezing and sore throat. Eyes: Negative for redness and itching. Respiratory: Negative for cough and shortness of breath. Cardiovascular: Negative for chest pain, palpitations and leg swelling. Heart rate increases upon standing accompanied by dizziness. Gastrointestinal: Positive for nausea. Negative for abdominal pain (resolved with pantoprazole, awaiting GI consultation), diarrhea and vomiting. Musculoskeletal: Negative for myalgias. Skin: Negative for rash. Neurological: Positive for dizziness (with rising from sitting to standing accompanied by increase in HR). Negative for weakness and headaches. Vitals BP 120/74 (BP Location: Right arm, Patient Position: Sitting) Pulse 75 Temp 36.6 ??C (97.9 ??F) (Tympanic) Resp 14 Ht 162.6 cm (5' 4.02 ) Wt 126.6 kg (279 lb 1.6 oz) SpO2 99% BMI 47.88 kg/m?? Physical Exam Vitals and nursing note [...] Abdomen is flat. Bowel sounds are normal. There is no distension. Palpations: Abdomen is soft. There is no mass. Tenderness: There is abdominal tenderness (epigastric). There is no guarding or rebound. Skin: Coloration: Skin is not jaundiced or pale. Findings: Lesion present. No rash. Comments: 1-1.5 cm abrasion to right posterolateral neck without surrounding erythema or edema and no active drainage from site. Neurological: General: No focal deficit present. Mental Status: She is alert and oriented to person, place, and time. Psychiatric: Mood and Affect: Mood normal. Behavior: Behavior normal. Thought Content: Thought content normal. Assessment/Plan Return in about 6 months (around 12/04/2022) for Annual physical. Diagnoses and all orders for this visit: Nausea (R11.0) (Primary) Assessment & Plan: Chronic, uncontrolled, despite starting treatment with Protonix 40 mg once daily-increased Protonixto 40 mg twice daily, new prescription sent to pharmacy along with a refill for Zofran per your request. A urine test has been ordered. Orders: - ondansetron ODT (ZOFRAN-ODT) 8 mg disintegrating tablet; Take 1 tablet (8 mg total) by mouth every 8 (eight) hours as needed for nausea or vomiting - pantoprazole DR (PROTONIX) 40 mg EC tablet; Take 1 tablet (40 mg total) by mouth 2 (two) times a day - hCG, blood, quantitative; Future Amenorrhea (N91.2) Assessment & Plan: Acute-ordered serum test. Orders: - hCG, blood, quantitative; Future Need for vaccination (Z23) Assessment & Plan: Reviewed strep pneumoniae antibody serotypes, immune to 12/23 types tested- recommended Pneumovax 23, given today, also given Tdap, due. Advised if continues to get sick frequently after vaccination, can draw a post-vaccine titer to assess immune response to vaccination and/or refer to pack worker supervisor. Orders: - Tdap vaccine greater than or equal to 7yo IM - Pneumococcal polysaccharide vaccine 23-valent greater than or equal to 2yo subcutaneous/IM (PNEUMOVAX) Upper abdominal pain (R10.10) Assessment & Plan: Chronicity unknown, resolved with Protonix, however epigastric area tender upon palpation-increase Protonix to 40 mg twice daily. Encouraged to keep scheduled appointment with general assembler installer. Orders: - pantoprazole DR (PROTONIX) 40 mg EC tablet; Take 1 tablet (40 mg total) by mouth 2 (two) times a day Tachycardia, unspecified (R00.0) Assessment & Plan: Chronicity and stability unknown, heart rate 75 beats per minute and regular at today's visit-encouraged to keep scheduled appointment with wood machine carver. Frequent infections (Z86.19) Assessment & Plan: Currently asymptomatic-reviewed strep pneumoniae antibody serotypes, immune to 12/ types tested-recommended Pneumovax 23, given today. Advised if continues to get sick frequently after vaccination,can draw a post-vaccine titer to assess immune response to vaccination and/or refer to pack worker supervisor. Abrasion of neck, initial encounter (S10.91XA) Assessment & Plan: Acute-instructed to apply triple antibiotic ointment as directed as needed and avoid picking at area. *This note is dictated using [employer] voice recognition software, variances in spelling and vocabulary are possible and unintentional.* Lorie Vanessa NP Cosigned by Collin Valdez MD at 06/10/2022 5:51 PM YARN SKEINS EXAMINER SKEINS EXAMINER SKEINS EXAMINER SKEINS EXAMINER documented in this encounter Miscellaneous Notes * Assessment & Plan Note - Lorie Vanessa NP - 06/09/2022 2:52 PM CSTAssociated Problem(s): Abrasion of neck (Resolved 12/11/2022) Acute-instructed to apply triple antibiotic ointment as directed as needed and avoid picking at area. SKEINS EXAMINER * Assessment & Plan Note - Lorie Vanessa NP - 06/09/2022 2:34 PM CSTAssociated Problem(s): Amenorrhea Acute-ordered serum test. SKEINS EXAMINER * Assessment & Plan Note - Lorie Vanessa NP - 06/09/2022 2:31 PM CSTAssociated Problem(s): Frequent infections Currently asymptomatic-reviewed strep pneumoniae antibody serotypes, immune to 12/23 types tested-recommended Pneumovax 23, given today. Advised if continues to get sick frequently after vaccination,can draw a post-vaccine titer to assess immune response to vaccination and/or refer to pack worker supervisor. SKEINS EXAMINER * Assessment & Plan Note - Lorie Vanessa NP - 06/09/2022 2:31 PM CSTAssociated Problem(s): Need for vaccination (Resolved 05/17/2023) Reviewed strep pneumoniae antibody serotypes, immune to 12/23 types tested- recommended Pneumovax 23, given today, also given Tdap, due. Advised if continues to get sick frequently after vaccination, can draw a post-vaccine titer to assess immune response to vaccination and/or refer to pack worker supervisor. SKEINS EXAMINER SKEINS EXAMINER * Assessment & Plan Note - Lorie Vanessa NP - 06/09/2022 2:30 PM CSTAssociated Problem(s): Nausea Chronic, uncontrolled, despite starting treatment with Protonix 40 mg once daily-increased Protonixto 40 mg twice daily, new prescription sent to pharmacy along with a refill for Zofran per your request. A urine test has been ordered. SKEINS EXAMINER * Assessment & Plan Note - Lorie Vanessa NP - 06/09/2022 2:29 PM CSTAssociated Problem(s): Tachycardia, unspecified Chronicity and stability unknown, heart rate 75 beats per minute and regular at today's visit-encouraged to keep scheduled appointment with wood machine carver. SKEINS EXAMINER SKEINS EXAMINER * Assessment & Plan Note - Lorie Vanessa NP - 06/09/2022 2:28 PM CSTAssociated Problem(s): Upper abdominal pain (Resolved 12/11/2022) Chronicity unknown, resolved with Protonix, however epigastric area tender upon palpation-increase Protonix to 40 mg twice daily. Encouraged to keep scheduled appointment with general assembler installer. SKEINS EXAMINER documented in this encounter Plan of Treatment Not on file documented as of this encounter Results * hCG, blood, quantitative (06/06/2022 9:52 AM YARN SKEINS EXAMINER) hCG, quant 0.3 0.0 - 5.0 IUnits/L [...] last revised on 2021. Testing performed by: [facility], [address] [place] [address]., [id number] Blood 06/06/2022 9:52 AM YARN SKEINS EXAMINER 06/06/2022 10:44 AM YARN SKEINS EXAMINER us Lorie Vanessa NP LAB BLOOD ORDERABLES Edited Resu lt - Final FRAN [id number] [facility] Department [place] [address] documented in this encounter Visit Diagnoses Diagnosis Nausea- Primary Nausea alone Amenorrhea Absence of menstruation Need for vaccination Need for prophylactic vaccination and inoculation against unspecified single disease Upper abdominal pain Tachycardia, unspecified Frequent infections Abrasion of neck, initial encounter documented in this encounter Discontinued Medications Medication Sig Discontinue Reason Start Date End Da te pantoprazole DR (PROTONIX) 40 mg EC tabletIndications:Upper abdominal pain,Nausea TAKE 1 TABLET(40 MG) BY MOUTH DAILY Dose adjustment 05/17/2022 06/06/2022 ondansetron ODT (ZOFRAN-ODT) 4 mg disintegrating tablet Dose adjustment 05/29/2022 06/06/2022 ondansetron ODT (ZOFRAN-ODT) 8 mg disintegrating tabletIndications:Nausea Take 1 tablet (8 mg total) by mouth every 8 (eight) hours as needed for nausea or vomiting Reorder 04/12/2022 06/06/2022 documented as of this encounter Historical Medications * This list may reflect changes made after this encounter. ondansetron ODT (ZOFRAN-ODT) 4 mg disintegrating tablet 05/29/202203/2023 added in this encounter Orders Immunization/Injection Count Last Ordered Date First Ordered Date PNEUMOCOCCAL POLYSACCHARIDE VACCINE 23-VALENT =>2YO SQ IM 1 06/06/2022 TDAP VACCINE GREATER THAN OR EQUAL TO 7YO IM 1 06/06/2022 documented in this encounter Care Teams Oak Tanner Relationship Specialty Start Date End Date Lorie Vanessa NP [address] [place] [id number] PCP - General Family Practice 05/29/22 No, Physician 06/08/21 documented as of this encounter
--- OUTSIDE RECORDS SUMMARY | 2024-06-06 00:37 | XMS_ITS | Encounter Summary ---
Author Organization [facility] Medical [facility] Address [address] [facility] [address] [place] [address] Care Team Providers Care Director Of Curriculum Name Role Phone No, Physician Unavailable Lorie Vanessa NP Primary Care Provider [phone] Reason for Visit * Reason Onset Date Comments Patient Running Late For Apt 06/06/2022 Encounter Details Date Type Department Care Team (Late st Contact Info) Description 06/06/2022 Telephone [facility] Primary Care at [place] [id number] [phone] Lorie Vanessa THIRD LOADER [address] [place] [phone] Patient Running Late For Apt Social History Tobacco Use Types Packs/Day Years Used Date Smoking Tobacco: Never PHQ-2 Answer Date Recorded PHQ-2 Total Score (If total score is 3 or more points, staff should administer the PHQ-9) 0 04/12/2022 Comments No Sex and Gender Information Value Date Recorded Sex Assigned at Not on file Legal Sex Female 6:55 PM ASSISTANT SPA MANAGER Gender Identity Female 06/06/2022 7:40 AM ASSISTANT SPA MANAGER Sexual Orientation Not on file documented as of this encounter Miscellaneous Notes * Telephone Encounter - Janelle Linda - 06/06/2022 8:30 AM CST Noted. STANT SPA MANAGER * Telephone Encounter - Lorie Hall - 06/06/2022 7:49 AM CST Patient running late for appointment Date of Appointment: 06/06/2022 Time of Appointment: 8:30 Reason for running late: couldn't get out of work on time Patient???s estimated time of arrival: 8:30 -08:35 Did you attempt to reschedule the appointment? Pt declined Caller???s [phone] #: Does message need to be routed?Yes-Action Needed STANT SPA MANAGER documented in this encounter Plan of Treatment Not on file documented as of this encounter Visit Diagnoses Not on filedocumented in this encounter Care Teams Director Of Curriculum Relationship Specialty Start Date End Date Lorie Vanessa NP [address] [place] [id number] PCP - General Family Practice 05/29/22 No, Physician 06/08/21 documented as of this encounter
--- OUTSIDE RECORDS SUMMARY | 2024-06-06 00:37 | XMS_ITS | Encounter Summary ---
Author Organization [facility] Healthcare Address [address] [place] [address] Care Team Providers Care Stenotype Machine Operator Name Role Phone No, Physician Unavailable Unknown, Notinfile Primary Care Provider Unavail able Reason for Visit * Reason Comments Abdominal Pain Vomiting Nausea Encounter Details Date Type Department Care Team (Late st Contact Info) Description 03/21/2022 4:20 PM CDT - 03/21/2022 7:11 PM CDT Emergency [facility] [address] [place] [address] Abdominal pain (Primary Dx); Elevated lipase Discharge Disposition: Discharge to home or self care Social History Tobacco Use Types Packs/Day Years Used Date Smoking Tobacco: Never Comments No Sex and Gender Information Value Date Recorded Sex Assigned at Not on file Legal Sex 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 Gender Identity Female 06/06/2022 7:40 AM 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 Sexual Orientation Not on file documented as of this encounter Last Filed Vital Signs Vital Sign Reading Time Taken Comments Blood Pressure 110/73 03/21/2022 6:27 PM CDT Pulse 72 03/21/2022 6:27 PM CDT Temperature 36.6 ??C (97.9 ??F) 03/21/2022 2:52 PM CD T Respiratory Rate 16 03/21/2022 6:27 PM CDT Oxygen Saturation 100% 03/21/2022 6:27 PM CDT Inhaled Oxygen Concentration - - Weight 121.9 kg (268 lb 11.9 oz) 03/21/2022 2:52 PM CDT Height 162.6 cm (5' 4 ) 03/21/2022 2:52 PM CDT Body Mass Index 46.13 03/21/2022 2:52 PM CDT documented in this encounter Discharge Instructions * Discharge Instructions* Jennifer Keyes PA - 03/21/2022 7:01 PM CDT You can take Zofran every 8 hours as needed for nausea/vomiting. Please follow- up with your primarycare provider for persistent issues. Return to the ED if you experience severe/worsening pain, persistent vomiting and are unable to keep anything down despite Zofran, or persistent fever >100.4F. * Attachments The following attachments cannot be sent through Care Everywhere. * Acute Abdominal Pain (AfterCare(R) Instructions(ER/ED)) (Uzbek) documented in this encounter Medications at Time of Discharge lamoTRIgine (LaMICtal) 100 mg tablet Take 1 [...] to antibiotics 1 tablet 08/19/2021 04/12/20 22 HYDROcodone-acetami nophen (NORCO) 5-325 mg per tabletIndications:P ain Take 1 tablet by mouth every 6 (six) hours as needed for pain 5 tablet 03/21/2022 04/12/20 22 norethindrone (MICRONOR) 0.35 mg tablet Take 1 tablet (0.35 mg total) by mouth daily 05/12/2021 02/19/20 23 omeprazole (PriLOSEC) 20 mg capsule omeprazole 20 mg capsule,delayed release 11/23/2018 04/12/20 22 ondansetron ODT (ZOFRAN-ODT) 4 mg disintegrating tablet Take 1 tablet (4 mg total) by mouth every 8 (eight) hours as needed for nausea or vomiting 20 tablet 03/21/2022 04/12/20 22 phentermine 37.5 mg capsule Take 1 capsule (37.5 mg total) by mouth daily 02/23/2022 08/22/19 23 vit no.[id number] 28 mg iron- 800 mcg tablet Take 1 tablet by mouth daily 01/24/2022 07/11/19 23 sertraline (ZOLOFT) 25 mg tablet 08/15/2021 04/12/20 22 traZODone (DESYREL) 50 mg tablet Take 2 tablets (100 mg total) by mouth nightly 01/01/2022 07/11/19 23 documented as of this encounter Ordered Prescriptions Prescription Sig Dispense Quantity Refills Last Filled Start Date End Date HYDROcodone-acetamin ophen (NORCO) 5-325 mg per tabletIndications:Pa in Take 1 tablet by mouth every 6 (six) hours as needed for pain 5 tablet 03/21/2022 2 ondansetron ODT (ZOFRAN-ODT) 4 mg disintegrating tablet Take 1 tablet (4 mg total) by mouth every 8 (eight) hours as needed for nausea or vomiting 20 tablet 03/21/2022 2 documented in this encounter Discharge Disposition Disposition Code Departure Means Destination Comment s Discharge to home or self care d/c hm with instructions, rx. nadn, aaox3, vss, ambulatory at time of departure with family at . documented in this encounter ED Notes * Ruth Thompson RN - 03/21/2022 2:54 PM CDT Pt c/o mid/lower abdomen pain w/n/v. Onset x 1 week. Hx of IBS and PCOS. * Jennifer Keyes PA - 03/21/2022 2:51 PM CDT HPI Chief Complaint Patient presents with Abdominal Pain Vomiting Nausea HPI 5:43 PM Emily Guerrier is a 26 y.o. female presenting to the ED c/o generalized abdominal pain x1 week. States that pain has been fairly constant since onset and not improving. Now has been experiencing nausea and vomiting. Reports x1 episode of vomiting today. Denies history of similar previous episodes. No previous abdominal surgeries. No diarrhea but does have history of IBS. Denies drug use. States that she occasionally drinks alcohol, last drink a few days ago. Denies recent travel or suspicious food intake. No known sick contacts. Patient History: No past medical history on file. No past surgical history on file. Family History Problem Relation Age of Onset Diabetes Maternal Grandmother Family history of diabetes [...] Current Outpatient Medications: cetirizine (ZyrTEC) 10 mg tablet ciprofloxacin (CIPRO) 250 mg tablet fluconazole (DIFLUCAN) 150 mg tablet HYDROcodone-acetaminophen (NORCO) 5-325 mg per tablet norethindrone (MICRONOR) 0.35 mg tablet ondansetron ODT (ZOFRAN-ODT) 4 mg disintegrating tablet sertraline (ZOLOFT) 25 mg tablet Review of Systems Review of Systems Constitutional: Negative for fever. Gastrointestinal: Positive for abdominal pain, nausea and vomiting. Negative for diarrhea. All systems reviewed and are neg or non contributory for this patients presentation today other than as stated in the HPI . Physical Exam ED Triage Vitals Temp Pulse Resp BP SpO2 03/21/22 1452 03/21/22 1452 03/21/22 1452 03/21/22 1452 03/21/22 1452 36.6 ??C (97.9 ??F) 103 20 143/77 100 % Temp src Heart Rate Source Patient Position BP Location FiO2 (%) 03/21/22 1452 03/21/22 1721 03/21/22 1721 03/21/22 1721 -- Oral Monitor HOB 30 degrees Left arm Height Height Method Weight Weight Method 03/21/22 1452 03/21/22 1452 03/21/22 1452 03/21/22 1452 1.626 m (5' 4 ) Stated 121.9 kg (268 lb 11.9 oz) Standing scale Patient Vitals for the past 24 hrs: BP Pulse Resp SpO2 03/21/22 1827 110/73 72 16 100 % Physical Exam Vitals and nursing note reviewed. Constitutional: Appearance: She is obese. She is not toxic-appearing. HENT: Head: Normocephalic. Eyes: General: No scleral icterus. Cardiovascular: Rate and Rhythm: Normal rate. Pulmonary: Effort: Pulmonary effort is normal. No tachypnea, accessory muscle usage or respiratory distress. Breath sounds: Normal breath sounds. No wheezing. Abdominal: General: Bowel sounds are normal. There is no distension. Palpations: Abdomen is soft. Tenderness: There is generalized abdominal tenderness. There is no guarding. Musculoskeletal: Right lower leg: No edema. Left lower leg: No edema. Skin: General: Skin is warm and dry. Neurological: Mental Status: She is alert and oriented to person, place, and time. Psychiatric: Mood and Affect: Mood normal. Behavior: Behavior normal. Procedures MDM Labs Reviewed URINALYSIS AND REFLEX TO MICROSCOPIC AND CULTURE - Abnormal Result Value Color, ur Brissa Clarity, ur Cloudy (*) Specific gravity, ur 1.028 pH, urine 5.0 Protein, ur ql 1+ (*) Glucose, ur ql Negative Ketones, ur Trace Bilirubin, ur Negative Blood, ur 1+ (*) Urobilinogen, ur <2.0 Nitrite, ur Negative Leukocyte esterase, ur 4+ (*) UA reflex comment Reflex to microscopic UA will be performed. Narrative: Urine pH is affected by diet, medications, systemic acid-base disturbances, and renal tubular function. pH may affect urinary stone formation. For example, urine pH below 6.0 may help reduce the tendency for calcium phosphate stones and pH greater than 6.0 may reduce the tendency for uric acid stone formation. Source: [facility].Last revised 06-06-2017 CBC WITH AUTO DIFFERENTIAL - Abnormal WBC 15.6 (*) Hgb 15.1 Hct 45.7 (*) Plt 425 (*) MPV 8.6 (*) RBC 5.30 (*) MCV 86.2 MCH 28.5 MCHC 33.0 RDW CV 12.2 RDW SD 38.5 NRBC abs 0.00 LIPASE - Abnormal Lipase 194 (*) DIFFERENTIAL AUTO - Abnormal Neutrophil abs 12.3 (*) Imm gran abs 0.1 Lymphocyte abs 1.9 Monocyte abs 1.0 (*) Eosinophil abs 0.1 Basophil abs 0.1 Neutrophil pct 79.2 Imm gran pct 0.3 Lymphocyte pct 12.5 Monocyte pct 6.6 Eosinophil pct 0.9 Basophil pct 0.5 URINALYSIS, MICROSCOPIC ONLY - Abnormal WBC, ur 11-20 (*) RBC, ur 0-2 Epithelial cells, squamous, ur >50 (*) Bacteria, ur 2+ (*) Mucous, ur Present (*) Calcium oxalate crystals, ur 4+ (*) Culture Reflex Comment Reflex to urine culture will be performed. POCT HCG, URINE - Normal HCG, ur, POC Negative Lot Number [id number] QC Backgroud Clear Acceptable QC Control Line Acceptable INFLUENZA A/B, RSV, AND COVID-19 PCR COVID-19 RNA Negative Influenza A RNA Negative Influenza B RNA Negative RSV RNA Negative Narrative: Is the Patient experiencing symptoms consistent with COVID?->Yes Date of Symptom Onset->03/21/22 Reason for testing?->Symptomatic URINE CULTURE Report Value: Preliminary Report: Culture results pending. Narrative: Urine culture reflexed based upon urinalysis results. Testing performed by [facility] ([phone]) COMPREHENSIVE METABOLIC PANEL Sodium 137 Potassium, pl 4.0 Chloride 102 CO2 26 Anion gap 9 BUN 9 Creatinine 0.80 Glucose 95 Calcium 9.6 Bilirubin, total 0.4 Protein, pl 8.1 Albumin 4.6 Alk phos 103 ALT 10 AST 16 SEPSIS LACTATE WITH REFLEX Sepsis Lactate 1.[address] Abdomen Pelvis W Contrast Final Result BP 110/73 (BP Location: Left arm, Patient Position: HOB 30 degrees) Pulse 72 Temp 36.6 ??C (97.9 ??F) (Oral) Resp 16 Ht 162.6 cm (5' 4 ) Wt 121.9 kg (268 lb 11.9 oz) SpO2 100% BMI 46.13kg/m?? MDM WBC elevated 15.6. Lactate normal, afebrile CMP unremarkable Lipase elevated 194 CT abd/pelvis >>No acute findings identified in the abdomen or pelvis. No evidence of pancreatitis. Gallbladder appears grossly normal with no stones. Discussed all findings with patient including elevated lipase. Plan for discharge home with pain medication, antiemetics and continue po hydration. Return to the ED for worsening symptoms. Pt comfortable with plan and discharge home. This examination was transcribed using the RV ID voice recognition system without human welfare director. In an effort to expedite patient care, this report has not been adjusted for typographical, grammatical, and syntax by a trained medical resident. Close outpatient follow-up with a low threshold to return has been mandated , concerning symptoms have been emphasized in detail, and this patient expresses understanding Clinical Impression: Abdominal pain Elevated lipase Jennifer Keyes PA 03/22/22 174 Cosigned by Can Valdez MD at 03/23/2022 12:52 PM CDT Associated attestation - Can Valdez MD - 03/23/2022 12:52 PM CDT ED Attestation I did not see this patient. However, I was personally available for consultation in the ED for thispatient if the Advanced Practice Provider (HARVEY) needed any assistance. The HARVEY evaluated the patient independently and completed their own examination, documentation, and disposition. documented in this encounter Plan of Treatment Not on file documented as of this encounter Procedures Procedure Name Priority Date/Time Associated Diagnosis Comments CT ABDOMEN PELVIS W CONTRAST ED 03/21/2022 5:00 PM CDT POCT HCG, URINE Routine 03/21/2022 4:14 PM CDT INFLUENZA A/B, RSV, AND COVID-19 PCR Routine 03/21/2022 3:09 PM CDT SEPSIS LACTATE WITH REFLEX STAT 03/21/2022 3:09 PM CDT EGFR STAT 03/21/2022 3:09 PM CDT DIFFERENTIAL AUTO STAT 03/21/2022 3:0 9 PM CDT URINALYSIS AND REFLEX TO MICROSCOPIC AND CULTURE STAT 03/21/2022 3:09 PM CDT CBC WITH AUTO DIFFERENTIAL STAT 03/21/2022 3:09 PM CDT URINALYSIS, MICROSCOPIC ONLY STAT 03/21/2022 3:09 PM CDT URINE CULTURE STAT 03/21/2022 3:09 PM CDT LIPASE STAT 03/21/2022 3:09 PM CDT COMPREHENSIVE METABOLIC PANEL STAT 03/21/2022 3:09 PM CDT documented in this encounter Results * CT Abdomen Pelvis W Contrast (03/21/2022 5:00 PM CDT) Anatomical Region Laterality Modality Body N/A Computed Tomogra phy 03/21/2022 6:38 PM CDT Narrative 03/21/2022 6:43 PM CDT EXAM DESCRIPTION: ?? CT ABDOMEN PELVIS W CONTRAST REASON FOR STUDY: ?? Mid to lower abdominal pain with nausea and vomiting for 1 week. TECHNIQUE: CT scan of the abdomen and pelvis performed with intravenous and ?? without ??oral contrast using helical scanning technique with dynamic intravenous contrast injection. Reconstructed coronal and sagittal MPR images reviewed. All images stored on PACS. Automated exposure control was used as a dose optimization technique for this examination. CONTRAST TYPE/DOSE: 100 mL Optiray 350 COMPARISON: ?? CT of the abdomen and pelvis dated 08/19/2021. FINDINGS: LOWER CHEST: ?? Minimal areas of subsegmental atelectasis in the lingula. ??The lung bases are otherwise unremarkable. ??There is no pleural effusion on either side. ??Limited views of the heart are normal. LIVER: ?? The liver is normal in size. ??No focal hepatic lesions are seen. ??The hepatic veins and portal veins are patent. GALLBLADDER: ?? No stones identified. No wall thickening or inflammatory changes. BILE DUCTS: ?? No intrahepatic or extrahepatic ductal dilatation. SPLEEN: ?? Normal size. ??No focal lesions. PANCREAS: ?? No focal pancreatic lesions noted. ??No dilatation of the main pancreatic duct. ??No pancreatic or peripancreatic inflammatory changes identified. ?? ADRENALS: ?? Normal. KIDNEYS/URINARY TRACT: ?? The kidneys are normal in size and enhance symmetrically. ??No focal cystic or solid lesions are identified in either kidney. ??There is no hydronephrosis. ??No stones in the right kidney. ??A punctate stone is unchanged in the left kidney on axial image 48. ??Ureters are normal in caliber without stones. ?The urinary bladder is mostly decompressed, but otherwise unremarkable. GI: ?? The stomach has a normal appearance. ??The small bowel and colon are normal in caliber, demonstrating no signs of obstruction. ??There is also no evidence of inflammation. ??An appendicolith is seen, but the appendix is otherwise normal. PERITONEUM: ?? There is no free intraperitoneal fluid or gas. RETROPERITONEUM: ?? No lymphadenopathy or masses. REPRODUCTIVE: ?? CT appearance of the uterus and adnexa is unremarkable. VASCULATURE: ??The abdominal aorta is normal in caliber. No significant vascular abnormalities are seen. ?? MUSCULOSKELETAL: No suspicious lytic or blastic lesions. ??A few Schmorl nodes are redemonstrated throughout the imaged portions of the spine. OTHER: ?? No other abnormality. IMPRESSION: ?? 1. ?? No acute findings identified in the abdomen or pelvis. 2. ?? Unchanged punctate nonobstructing stone in the left kidney. 3. ?? Other findings as described above. REFERENCE: Unless otherwise specified, no follow-up imaging is recommended for incidental renal and adrenal lesions per consensus recommendations based on imaging criteria. Further lab evaluation could be pursued based on clinical findings. Management of the Incidental Renal Mass on CT: A White Paper of the ACR Incidental Findings Committee. J Am Dom Radiol. 2018 Jun;15(2):264-273. Management of Incidental Adrenal Masses: A White Paper of the ACR Incidental Findings Committee. J Am Dom Radiol. 2017 Dec;14(8):8645-5138. THIS IS AN ELECTRONICALLY VERIFIED FINAL REPORT 03/21/2022 6:43 PM - Electronically signed by ??Jone Mercado M.D. RL: DAVID D: ??03/21/2022 6:43 PM T: ??03/21/2022 6:43 PM Report ID: [id number] Reading Location: ??[id number] Procedure Note Jone García MD - 03/21/2022 EXAM DESCRIPTION: CT ABDOMEN PELVIS W CONTRAST REASON FOR STUDY: Mid to lower abdominal pain with nausea and vomitingfor 1 week. TECHNIQUE: CT scan of the abdomen and pelvis performed with intravenousand without oral contrast using helical scanning technique with dynamic intravenous contrast injection. Reconstructed coronal and sagittal MPRimages reviewed. All images stored on PACS. Automated exposure control was used as a dose optimization technique forthis examination. CONTRAST TYPE/DOSE: 100 mL Optiray 350 COMPARISON: CT of the abdomen and pelvis dated 08/19/2021. FINDINGS: LOWER CHEST: Minimal areas of subsegmental atelectasis in the lingula. The lung bases are otherwise unremarkable. There is no pleural effusion on either side. Limited views of the heart are normal. LIVER: The liver is normal in size. No focal hepatic lesions are seen.The hepatic veins and portal veins are patent. GALLBLADDER: No stones identified. No wall thickening or inflammatory changes. BILE DUCTS: No intrahepatic or extrahepatic ductal dilatation. SPLEEN: Normal size. No focal lesions. PANCREAS: No focal pancreatic lesions noted. No dilatation of the main pancreatic duct. No pancreatic or peripancreatic inflammatory changes identified. ADRENALS: Normal. KIDNEYS/URINARY TRACT: The kidneys are normal in size and enhance symmetrically. No focal cystic or solid lesions are identified in either kidney. There is no hydronephrosis. No stones in the right kidney. A punctate stone is unchanged in the left kidney on axial image 48. Uretersare normal in caliber without stones. The urinary bladder is mostly decompressed, but otherwise unremarkable. GI: The stomach has a normal appearance. The small bowel and colon are normal in caliber, demonstrating no signs of obstruction. There is alsono evidence of inflammation. An appendicolith is seen, but the appendix is otherwise normal. PERITONEUM: There is no free intraperitoneal fluid or gas. RETROPERITONEUM: No lymphadenopathy or masses. REPRODUCTIVE: CT appearance of the uterus and adnexa is unremarkable. VASCULATURE: The abdominal aorta is normal in caliber. No significant vascular abnormalities are seen. MUSCULOSKELETAL: No suspicious lytic or blastic lesions. A few Schmorlnodes are redemonstrated throughout the imaged portions of the spine. OTHER: No other abnormality. IMPRESSION: 1. No acute findings identified in the abdomen or pelvis. 2. Unchanged punctate nonobstructing stone in the left kidney. 3. Other findings as described above. REFERENCE: Unless otherwise specified, no follow-up imaging is recommendedfor incidental renal and adrenal lesions per consensus recommendations basedon imaging criteria. Further lab evaluation could be pursued based onclinical findings. Management of the Incidental Renal Mass on CT: A White Paper of the ACR Incidental Findings Committee. J Am Dom Radiol. 2018 Jun;15(2):264-273. Management of Incidental Adrenal Masses: A White Paper of the ACRIncidental Findings Committee. J Am Dom Radiol. 2017 Dec;14(8):9192-4002. THIS IS AN ELECTRONICALLY VERIFIED FINAL REPORT 03/21/2022 6:43 PM - Electronically signed by Jone Mercado M.D. RL: DAVID Report ID: [id number] Reading Location: [place] [address] [address] LEYVA IMG CT PROCEDURES Final Result * POCT hCG, urine (03/21/2022 4:14 PM CDT) HCG, ur, POC Negative Lot Number [id number] QC Backgroud Clear Acceptable QC Control Line Acceptable Urine 03/21/2022 4:14 PM CDT us Jennifer LEYVA POINT OF CARE TEST ORDERABLES F inal Result * Urine culture Urine (03/21/2022 3:09 PM CDT) Pathologist [facility] Report Final Report: Less than 100,000 colonies/mL (clinically insignificant growth based on current clinical standards) FRAN [facility]YS Comment:Testing performed by : [facility], [address] [facility] [place]., [address] Organism (CLINICALLY INSIGNIFICANT GROWTH [facility]AN [facility]YS Urine 03/21/2022 3:09 PM CDT 03/21/2022 10:36 PM CDT Narrative FRAN [facility]YS - 03/23/2022 8:04 AM CDT Urine culture reflexed based upon urinalysis results. Testing performed by [facility] ([phone]) Jennifer LEYVA LAB MICROBIOLOGY - GENERAL KAREN HIGHTOWER Final Result FRAN HAYS [address] [facility] [place] [address] * (ABNORMAL) Urinalysis, microscopic only (03/21/2022 3:09 PM CDT) WBC, ur 11-20(A) 0 - 5 /HPF FRAN [facility]YS Comment:Testing performed by : [address] [address] RBC, ur 0-2 0 - 2 /HPF FRAN Comment:Testing performed by : [address] [address] Epithelial cells, squamous, ur >50(A) 0 - 5 /HPF FRAN Comment: Suggestive of contamination. Consider recollection by clean catch. Testing performed by: [address] [address] Bacteria, ur 2+(A) FRAN Comment:Testing performed by : [address] [address] Mucous, ur Present(A) FRAN Comment:Testing performed by : [address] [address] Calcium oxalate crystals, ur 4+(A) FRAN Comment:Testing performed by : [address] [address] Culture Reflex Comment Reflex to urine culture will be performed. FRAN Comment:Testing performed by : [address] [id number] [place]., [address] Urine 03/21/2022 3:09 PM CDT 03/21/2022 3:18 PM CDT us Jennifer LEYVA LAB URINE ORDERABLES Final Resu lt FRAN [address] [facility] [place] [address] * eGFR (03/21/2022 3:09 PM CDT) eGFR 105 mL/min/1. 73 m2 [...] was last reviewed 2021. Testing performed by: [facility], [facility] [place]., [address] Blood 03/21/2022 3:09 PM CDT 03/21/2022 3:18 PM CDT us Jennifer LEYVA LAB BLOOD ORDERABLES Final Resu lt [facility] [address] [facility] [place] [address] * (ABNORMAL) Differential, auto (03/21/2022 3:09 PM CDT) Neutrophil abs 12.3(H) 1.7 - 6.5 K/cumm FRAN Comment:Testing performed by : [address] [address] Imm gran abs 0.1 0.0 - 0.1 K/cumm FRAN Comment:Testing performed by : [address] [address] Lymphocyte abs 1.9 0.8 - 3.3 K/cumm FRAN Comment:Testing performed by : [address] [address] Monocyte abs 1.0(H) 0.2 - 0.8 K/cumm FRAN Comment:Testing performed by : [address] [address] Eosinophil abs 0.1 0.0 - 0.5 K/cumm FRAN Comment:Testing performed by : [address] [address] Basophil abs 0.1 0.0 - 0.1 K/cumm FRAN Comment:Testing performed by : [address] [address] Neutrophil pct 79.2 % FRAN Comment: Interpretive Data Percent cell count reference ranges are not reported, since discordance with absolute values may lead to misinterpretation of CBC data. Current Interpretive Data was last revised on 2017. Testing performed by: [address] [address] Imm gran pct 0.3 % FRAN Comment: Interpretive Data Percent cell count reference ranges are not reported, since discordance with absolute values may lead to misinterpretation of CBC data. Current Interpretive Data was last revised on 2017. Testing performed by: [address] [address] Lymphocyte pct 12.5 % FRAN Comment: Interpretive Data Percent cell count reference ranges are not reported, since discordance with absolute values may lead to misinterpretation of CBC data. Current Interpretive Data was last revised on 2017. Testing performed by: [address] [address] Monocyte pct 6.6 % FRAN Comment: Interpretive Data Percent cell count reference ranges are not reported, since discordance with absolute values may lead to misinterpretation of CBC data. Current Interpretive Data was last revised on 2017. Testing performed by: [address] [address] Eosinophil pct 0.9 % FRAN Comment: Interpretive Data Percent cell count reference ranges are not reported, since discordance with absolute values may lead to misinterpretation of CBC data. Current Interpretive Data was last revised on 2017. Testing performed by: [address] [address] Basophil pct 0.5 % FRAN Comment: Interpretive Data Percent cell count reference ranges are not reported, since discordance with absolute values may lead to misinterpretation of CBC data. Current Interpretive Data was last revised on 2017. Testing performed by: [address] [address] Blood 03/21/2022 3:09 PM CDT 03/21/2022 3:18 PM CDT us Jennifer LEYVA LAB BLOOD ORDERABLES Final Resu lt [facility] [address] [facility] [place] [address] * Sepsis Lactate w/ Reflex (03/21/2022 3:09 PM CDT) Sepsis Lactate 1.2 0.7 - 2.0 mmol/L FRAN Comment:Testing performed by : [address] [address] Blood 03/21/2022 3:09 PM CDT 03/21/2022 3:18 PM CDT Jennifer LEYVA LAB BLOOD ORDERABLES Final Resu lt FRAN [address] [facility] [place] [address] * Influenza A/B, RSV, and COVID-19 PCR Nasopharyngeal (03/21/2022 3:09 PM CDT) [facility] COVID-19 RNA Negative Negative [facility] [facility] Comment:Testing performed by : [address] [address] Influenza A RNA Negative Negative [facility] Comment:Testing performed by : [address] [address] Influenza B RNA Negative Negative [facility] Comment:Testing performed by : [address] [address] RSV RNA Negative Negative [facility] Comment: Interpretive data: This test is performed using the [employer] Xpert Xpress CoV-2/Flu/RSV plus assay. This is a multiplex, real-time reverse transcriptase PCR assay intended for the qualitative detection of nucleic acid from SARS-CoV-2, influenza A, influenza B, and respiratory syncytial virus. This assay has been reviewed by the FDA for Emergency Use Authorization (EUA). The performance characteristics have been verified by the performing laboratory. Results must be considered in the clinical context, and a negative result does not rule out infection. Interpretive Data last revised 2021. Testing performed by: [address] [address] Nasopharyngeal 03/21/2022 3: 09 PM CDT 03/21/2022 3:19 PM CDT Narrative FRAN - 03/21/2022 4:09 PM CDT Is the Patient experiencing symptoms consistent with COVID?->Yes Date of Symptom Onset->03/21/22 Reason for testing?->Symptomatic Jennifer [facility] LAB MICROBIOLOGY - GENERAL ORDE RABLES Final Result [facility] [address] [facility] [place] [address] * (ABNORMAL) Urinalysis reflex to microscopic and culture Urine (03/21/2022 3:09 PM CDT) Color, ur Brissa Yellow [facility] Comment:Testing performed by : [address] [address] Clarity, ur Cloudy(A) Clear [facility] Comment:Testing performed by : [address] [address] Specific gravity, ur 1.028 1.003 - 1.030 [facility] Comment:Testing performed by : [address] [address] pH, urine 5.0 [facility] Comment:Testing performed by : [address] [address] Protein, ur ql 1+(A) Negative [facility] Comment:Testing performed by : [address] [address] Glucose, ur ql Negative Negative [facility] Comment:Testing performed by : [address] [address] Ketones, ur Trace Negative [facility] Comment:Testing performed by : [address] [address] Bilirubin, ur Negative Negative [facility] Comment:Testing performed by : [address] [address] Blood, ur 1+(A) Negative [facility] Comment:Testing performed by : [address] [address] Urobilinogen, ur <2.0 <2.0 mg/dL [facility] Comment:Testing performed by : [address] [address] Nitrite, ur Negative Negative [facility] Comment:Testing performed by : [address] [address] Leukocyte esterase, ur 4+(A) Negative [facility] Comment:Testing performed by : [address] [address] UA reflex comment Reflex to microscopic UA will be performed. [facility] Comment:Testing performed by : [address] [address] Urine 03/21/2022 3:09 PM CDT 03/21/2022 3:18 PM CDT Narrative [facility]AN - 03/21/2022 3:59 PM CDT ?? Urine pH is affected by diet, medications, systemic acid-base disturbances, and renal tubular function. ??pH may affect urinary stone formation. ??For example, urine pH below 6.0 may help reduce the tendency for calcium phosphate stones and pH greater than 6.0 may reduce the tendency for uric acid stone formation. Source: [facility] [employer]. Last revised 06-06-2017 Jennifer [facility] LAB MICROBIOLOGY - GENERAL ORDE RABLES Final Result Performing Organization Address City/[facility] Co de Phone Number FRAN [address] [place] [address] * (ABNORMAL) Lipase (03/21/2022 3:09 PM CDT) Lipase 194(H) 10 - 99 Units/L [facility] Comment:Testing performed by : [address] [address] Blood 03/21/2022 3:09 PM CDT 03/21/2022 3:18 PM CDT Jennifer LEYVA LAB BLOOD ORDERABLES Final Resu lt Performing Organization Address City/[facility]/ZIP Co de Phone Number JENNIFER[address] [place] [address] * Comprehensive metabolic panel (03/21/2022 3:09 PM CDT) Sodium 137 135 - 145 mmol/L [facility] Comment:Testing performed by : [address] [address] Potassium, pl 4.0 3.3 - 4.9 mmol/L [facility] Comment:Testing performed by : [address] [address] Chloride 102 97 - 110 mmol/L [facility] Comment:Testing performed by : [address], [place]., [address] CO2 26 22 - 32 mmol/L [facility] Comment:Testing performed by : [address] [address] Anion gap 9 2 - 15 mmol/L [facility] Comment:Testing performed by : [address], [place]., [address] BUN 9 8 - 25 mg/dL [facility] Comment:Testing performed by : [address] [address] Creatinine 0.80 0.60 - 1.10 mg/dL [facility] Comment:Testing performed by : [address] [address] Glucose 95 70 - 199 mg/dL [facility] Comment: Interpretive Data Fasting glucose >/= [...] was last revised 2017. Testing performed by: [address] [address] Calcium 9.6 8.5 - 10.3 mg/dL [facility] Comment:Testing performed by : [address] [address] Bilirubin, total 0.4 0.1 - 1.2 mg/dL [facility] Comment:Testing performed by : [address] [address] Protein, pl 8.1 6.5 - 8.5 g/dL [facility] Comment:Testing performed by : [address] [address] Albumin 4.6 3.5 - 5.0 g/dL [facility] Comment:Testing performed by : [address] [address] Alk phos 103 40 - 130 Units/L [facility] Comment:Testing performed by : [address] [address] ALT 10 7 - 45 Units/L [facility] Comment:Testing performed by : [address] [address] AST 16 10 - 45 Units/L [facility] Comment:Testing performed by : [address] [address] Blood 03/21/2022 3:09 PM CDT 03/21/2022 3:18 PM CDT Jennifer LEYVA LAB BLOOD ORDERABLES Final Resu lt FRAN [address] [place] [address] * (ABNORMAL) CBC with auto differential (03/21/2022 3:09 PM CDT) Pathologist [facility] WBC 15.6(H) 3.8 - 9.9 K/cumm [facility] Comment:Testing performed by : [address] [address] Hgb 15.1 11.9 - 15.5 g/dL [facility] Comment:Testing performed by : [address] [address] Hct 45.7(H) 35.6 - 45.5 % [facility] Comment:Testing performed by : [address] [address] Plt 425(H) 150 - 400 K/cumm [facility] Comment:Testing performed by : [address] [address] MPV 8.6(L) 9.1 - 12.3 fL [facility] Comment:Testing performed by : [address] [address] RBC 5.30(H) 3.90 - 5.20 M/cumm [facility] Comment:Testing performed by : [address] [address] MCV 86.2 81.3 - 96.4 fL [facility] Comment:Testing performed by : [address] [address] MCH 28.5 27.1 - 33.3 pg [facility] Comment:Testing performed by : [address] [address] MCHC 33.0 32.3 - 35.7 g/dL [facility] Comment:Testing performed by : [address] [address] RDW CV 12.2 11.1 - 14.9 % [facility] Comment:Testing performed by : [address] [address] RDW SD 38.5 35.7 - 48.1 fL [facility] Comment:Testing performed by : [address] [address] NRBC abs 0.00 0.00 - 0.01 K/cumm [facility] Comment:Testing performed by : [address] [address] Blood 03/21/2022 3:09 PM CDT 03/21/2022 3:18 PM CDT us Jennifer LEYVA LAB BLOOD ORDERABLES Final Resu lt [facility] [address] [facility] [place] [address] documented in this encounter Visit Diagnoses Diagnosis Abdominal pain- Primary Abdominal pain, unspecified site Elevated lipase documented in this encounter Administered Medications Inactive Administered Medications - up to 3 most recent administrations Medication Order MAR Action Action Date Dose Rate Site ioversoL (OPTIRAY 350) syringe 100 mL 100 mL, intravenous, Once in imaging, contrast, Starting on Sat03/21/22 at 1711, For 1 dose Contrast Given 03/21/2022 4:58 PM CDT 100 mL morphine injection 2 mg 2 mg, intravenous, Administer over 4 Minutes, Once, On Sat03/21/22 at 1714, For 1 dose Given 03/21/2022 5:15 PM CDT 2 mg morphine injection 2 mg 2 mg, intravenous, Administer over 4 Minutes, Once, On Sat03/21/22 at 1825, For 1 dose Given 03/21/2022 6:28 PM CDT 2 mg ondansetron (ZOFRAN) injection 4 mg 4 mg, intravenous, Administer over 2 Minutes, Once, On Sat03/21/22 at 1454, For 1 dose Given 03/21/2022 4:25 PM CDT 4 mg sodium chloride 0.9% bolus 1,000 mL 1,000 mL, intravenous, Once, On Sat03/21/22 at 1454, For 1 dose New Bag 03/21/2022 4:24 PM CDT 1,000 mL sodium chloride 0.9% flush 125 mL 125 mL, intravenous, Once in imaging, line care, Starting on Sat03/21/22 at 1711, For 1 dose Given 03/21/2022 4:55 PM CDT 125 mL documented in this encounter Discontinued Medications Medication Sig Discontinue Reason Start Date End Da te ondansetron ODT (ZOFRAN-ODT) 4 mg disintegrating tablet Dissolve 1 tablet for mild to moderate nausea or vomiting or 2 tablets for severe nausea or vomiting orally under tongue q 6 hours prn 08/19/2021 03/21/2022 documented as of this encounter Active and Recently Administered Medications Times are shown in CDT. Scheduled Medication Order 03/19/2022 03/20/2022 03/21/2022 morphine injection 2 mg (COMPLETED) 2 mg, intravenous, Administer over 4 Minutes, Once, On Sat03/21/22 at 1714, For 1 dose 1715 (Given - Provid er: Segundo Shelby RN) morphine injection 2 mg (COMPLETED) 2 mg, intravenous, Administer over 4 Minutes, Once, On Sat03/21/22 at 1825, For 1 dose 182 (Given - Provid er: Segundo Shelby RN) ondansetron (ZOFRAN) injection 4 mg (COMPLETED) 4 mg, intravenous, Administer over 2 Minutes, Once, On Sat03/21/22 at 1454, For 1 dose 1625 (Given - Provid er: Segundo Shelby RN) sodium chloride 0.9% bolus 1,000 mL (COMPLETED) 1,000 mL, intravenous, Once, On Sat03/21/22 at 1454, For 1 dose 1624 (New Bag - Prov ider: Segundo Shelby RN)1724 (Stopped - Provider: Segundo Shelby RN) PRN Medication Order 03/19/2022 03/20/2022 03/21/2022 ioversoL (OPTIRAY 350) syringe 100 mL (COMPLETED) 100 mL, intravenous, Once in imaging, contrast, Starting on Sat03/21/22 at 1711, For 1 dose 1658 (Contrast Given - Provider: RT Dong) sodium chloride 0.9% flush 125 mL (COMPLETED) 125 mL, intravenous, Once in imaging, line care, Starting on Sat03/21/22 at 1711, For 1 dose 1655 (Given - Provid er: RT Dong) documented in this encounter Care Teams Stenotype Machine Operator Relationship Specialty Start Date End Date Unknown, Notinfile PCP - General 08/22/21 04/11/22 No, Physician 06/08/21 documented as of this encounter
--- OUTSIDE RECORDS SUMMARY | 2024-06-06 00:38 | XMS_ITS | Encounter Summary ---
Author Organization [facility] Healthcare Address [address] [place] [address] Care Team Providers Care Supervisor Slitting And Shipping Name Role Phone Unknown, Notinfile Primary Care Provider Unavail able No, Physician Unavailable Encounter Details Date Type Department Care Team (Late st Contact Info) Description 06/13/2021 1:15 PM STAFF READINESS OFFICER Lab [address] [address] Cough Social History Tobacco Use Types Packs/Day Years Used Date Smoking Tobacco: Never Comments Unknown Sex and Gender Information Value Date Recorded Sex Assigned at Not on file Legal Sex Female 6:55 PM STAFF READINESS OFFICER Gender Identity Female 06/06/2022 7:40 AM STAFF READINESS OFFICER Sexual Orientation Not on file documented as of this encounter Plan of Treatment Not on file documented as of this encounter Procedures Procedure Name Priority Date/Time Associated Diagnosis Comments INFLUENZA A/B AND COVID-19 PCR Routine 06/13/2021 9:51 AM STAFF READINESS OFFICER Cough documented in this encounter Results * (ABNORMAL) Influenza A/B and COVID-19 PCR Nasopharyngeal (06/13/2021 9:51 AM STAFF READINESS OFFICER) COVID-19 RNA Detected(A) [facility] Comment: Interpretive Data Synonyms for this test include: PCR and NAAT . ??Testing performed by the [facility] Molecular Infectious Disease Laboratory. The 2019-Novel Coronavirus Assay (COVID-19) Real Time RT-PCR assay is for in vitro diagnostic use under FDA emergency use authorization only. A negative RT-PCR result does not preclude infection with COVID-19 and should not be used as the sole basis for treatment or other patient management decisions. ??Additional sample types have been validated according to CLIA regulations. ?? Current Interpretive Data was last revised on June 30, 2020. Influenza A RNA Not Detected [facility] Influenza B RNA Not Detected [facility] Comment: Interpretive Data Testing performed by the [facility] Molecular Infectious Disease Laboratory. This test is performed using the pieter Influenza A/B Assay. This is a real-time RT-PCR test for the qualitative detection of nucleic acid from Influenza A and Influenza B. This assay has been reviewed by the FDA for Emergency Use Authorization (EUA). The performance characteristics have been verified by the [facility] Laboratory. Results should be interpreted in combination with clinical context and a negative result does not rule out infection. ?? Interpretive data last revised 2020. First COVID-19 test? No [facility] Employeed in healthcare? Yes [facility] status? Unknown [facility] Group care resident? No [facility] Hospitalized? No [facility] Is patient in ICU? No [facility] Symptomatic as defined by CDC? Yes [facility] Nasopharyngeal 06/13/2021 9: 51 AM STAFF READINESS OFFICER 06/13/2021 1:33 PM STAFF READINESS OFFICER [facility]ative [facility] 06/13/2021 8:28 PM STAFF READINESS OFFICER Patient is employed by/enrolled at:->[employer] Date of Symptom Onset->06/07/21 Reason for testing?->Symptomatic Tanya Montaño MD LAB MICROBIOLOGY - GENERAL ORDERABLES Final Result [facility] Department [place] [address] documented in this encounter Visit Diagnoses Diagnosis Cough documented in this encounter Additional Health Concerns Infection Onset Date Last Indicated Resolved Time COVID: Suspected 06/12/2021 06/13/2021 06/13/2021 8:28 PM STAFF READINESS OFFICER documented as of this encounter Care Teams Supervisor Slitting And Shipping Relationship Specialty Start Date End Date Unknown, Notinfile PCP - General 06/08/21 08/18/21 No, Physician 06/08/21 documented as of this encounter
--- OUTSIDE RECORDS SUMMARY | 2024-06-06 00:38 | XMS_ITS | Encounter Summary ---
Author Organization [facility] Healthcare Address [address] [place] [address] Care Team Providers Care Mobile Sales Technician Name Role Phone Unavailable Primary Care Provider Unavailabl e Encounter Details Date Type Department Care Team (Latest Contact Info) Description 01/30/2018 3:55 PM CDT - 01/30/2018 4:16 PM CDT Hospital Encounter [facility] Miranda Mchugh, [address] [facility] [place] [address] Rash and other nonspecific skin eruption Social History Tobacco Use Types Packs/Day Years Used Date Smoking Tobacco: Never Assessed Comments Unknown Sex and Gender Information Value Date Recorded Sex Assigned at Not on file Legal Sex Female 6:55 PM JACKER FEEDER Gender Identity Female 06/06/2022 7:40 AM JACKER FEEDER Sexual Orientation Not on file documented as of this encounter Last Filed Vital Signs Vital Sign Reading Time Taken Comments Blood Pressure 169/82 01/30/2018 3:59 PM CDT Pulse 96 01/30/2018 3:59 PM CDT Temperature 36.9 ??C (98.4 ??F) 01/30/2018 3:59 PM CD T Respiratory Rate - - Oxygen Saturation 99% 01/30/2018 3:59 PM CDT Inhaled Oxygen Concentration - - Weight 115.3 kg (254 lb 3.1 oz) 01/30/2018 3:59 PM CDT Height 162.6 cm (5' 4 ) 01/30/2018 3:59 PM CDT Body Mass Index 43.63 01/30/2018 3:59 PM CDT documented in this encounter Plan of Treatment Not on file documented as of this encounter Visit Diagnoses Diagnosis Rash and other nonspecific skin eruption documented in this encounter
--- OUTSIDE RECORDS SUMMARY | 2024-06-06 00:38 | XMS_ITS | Encounter Summary ---
Author Organization [facility] Healthcare Address [address] [place] [address] Care Team Providers Care Gas Well Pumper Name Role Phone No, Physician Unavailable Sourav Jones NP Primary Care Provider Encounter Details Date Type Department Care Team (Late st Contact Info) Description 08/19/2021 1:40 PM CDT Lab [address] [address] Social History Tobacco Use Types Packs/Day Years Used Date Smoking Tobacco: Never Comments Unknown Sex and Gender Information Value Date Recorded Sex Assigned at Not on file Legal Sex Female 6:55 PM STOCK WORKER Gender Identity Female 06/06/2022 7:40 AM STOCK WORKER Sexual Orientation Not on file documented as of this encounter Plan of Treatment Not on file documented as of this encounter Visit Diagnoses Not on filedocumented in this encounter Additional Health Concerns Infection Onset Date Last Indicated Resolved Time COVID: Recovered Comment:Added based on recent COVID infection. 06/23/2021 08/17/2021 10/21/2021 3:06 AM C DT documented as of this encounter Care Teams Gas Well Pumper Relationship Specialty Start Date End Date Sourav Jones NP PCP - General Family Medicine 08/19/21 08/20/21 No, Physician 06/08/21 documented as of this encounter
--- OUTSIDE RECORDS SUMMARY | 2024-06-06 00:38 | XMS_ITS | Encounter Summary ---
Author Organization [facility] Address [address] [place] [id number] Care Team Providers Care Claim Investigator Name Role Phone No, Physician Unavailable Sourav Jones NP Primary Care Provider [phone] Reason for Visit * Reason Comments Cough Sx have gotten worse over last 7 days Flank Pain Bilateral Chest Pain Sharp pain on right side when coughing UTI Constant urge to uri flavio; never gets other sx's w/ UTI's Encounter Details Date Type Department Care Team (Late st Contact Info) Description 08/19/2021 8:30 AM CDT Office Visit [facility] [address] [id number] Sourav Jones NP [address] [place] [address] [phone] Urinary urgency (Primary Dx); Flank pain; Viral upper respiratory tract infection Social History Tobacco Use Types Packs/Day Years Used Date Smoking Tobacco: Never Comments Unknown Sex and Gender Information Value Date Recorded Sex Assigned at Not on file Legal Sex Female 6:55 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 Gender Identity Female 06/06/2022 7:40 AM 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 Sexual Orientation Not on file documented as of this encounter Last Filed Vital Signs Vital Sign Reading Time Taken Comments Blood Pressure 122/78 08/19/2021 8:48 AM CDT Pulse 99 08/19/2021 8:48 AM CDT Temperature 36.9 ??C (98.5 ??F) 08/19/2021 8:48 AM CD T Respiratory Rate - - Oxygen Saturation 99% 08/19/2021 8:48 AM CDT Inhaled Oxygen Concentration - - Weight 137.7 kg (303 lb 8 oz) 08/19/2021 8:48 AM CDT Height 162.6 cm (5' 4 ) 08/19/2021 8:48 AM CDT Body Mass Index 52.1 08/19/2021 8:48 AM CDT documented in this encounter Patient Instructions * Patient Instructions* Sourav Jones NP - 08/19/2021 8:30 AM CDT I am instructing patient to go to the ER for a possible kidney infection. She should take the Tessalon as prescribed by the provider during her virtual visit since it is helping. Drink plenty of fluids Get plenty of rest Cool mist humidifier Results for orders placed or performed in visit on 08/19/21 POCT urinalysis dipstick Result Value Ref Range Color, Urine, POC Dark Brissa Clarity, ur, POC Cloudy (A) Clear Glucose, ur, POC Negative Negative mg/dL Bilirubin, ur, POC Negative Negative, Small, Moderate, Large Ketones, ur, POC Negative Negative Specific [place], POC 1.030 1.005 - 1.030 Blood, ur, POC Negative Negative pH, ur, POC 5.5 5.0 - 8.0 Protein, ur, POC Negative Negative Urobilinogen, urine, POC 0.2 0.2 - 1.0 mg/dL Nitrite, ur, POC Negative Negative Leukocytes, ur, POC Negative Negative Lot Number [id number] documented in this encounter Progress Notes * Sourav Jones NP - 08/19/2021 8:30 AM CDT Images from the original note were not included. Subjective/Objective Patient ID: Emily Guerrier is a 25 y.o. female. Chief Complaint Cough (Sx have gotten worse over last 7 days), Flank Pain (Bilateral/), Chest Pain (Sharp pain on right side when coughing/), and UTI (Constant urge to urinate; never gets other sx's w/ UTI's /) Patient comes in today with multiple complaints. She is complaining of a cough for the last week, with sharp pains to the right side of her lungs when she coughs cough is sometimes productive and sometimes dry. Having PND and taking zyrtec. Blowing a clear drainage. She did a virtual visit a few days ago and they told her to watch her symptoms and they gave her Tessalon which did help. She has only taken it once. She is also complaining of UTI symptoms, with urinary urgency and frequency. Suprapubic tenderness and flank pain Review of Systems Constitutional: Positive for chills. Negative for appetite change, diaphoresis, fatigue and fever. HENT: Positive for postnasal drip and rhinorrhea. Negative for congestion, ear pain, sinus pressure, sinus pain, sneezing and sore throat. Respiratory: Positive for cough. Cardiovascular: Negative. Gastrointestinal: Suprapubic tenderness Genitourinary: Positive for flank pain, frequency and urgency. Negative for difficulty urinating, dysuria and hematuria. Neurological: Negative. Psychiatric/Behavioral: Negative. Physical Exam Constitutional: Appearance: Normal appearance. HENT: Nose: Rhinorrhea present. Mouth/Throat: Mouth: Mucous membranes are moist. Pharynx: Oropharynx is clear. No oropharyngeal exudate or posterior oropharyngeal erythema. Cardiovascular: Rate and Rhythm: Normal rate and regular rhythm. Pulmonary: Effort: Pulmonary effort is normal. Breath sounds: Normal breath sounds. Abdominal: General: Bowel sounds are normal. Palpations: Abdomen is soft. There is no mass. Tenderness: There is abdominal tenderness. There is right CVA tenderness and left CVA tenderness. There is no guarding or rebound. Musculoskeletal: Cervical back: Normal range of motion and neck supple. Skin: General: Skin is warm and dry. Neurological: General: No focal deficit present. Mental Status: She is alert and oriented to person, place, and time. Psychiatric: Mood and Affect: Mood normal. Behavior: Behavior normal. Vitals: 08/19/21 0848 BP: 122/78 BP Location: Right arm Patient Position: Sitting Pulse: 99 Temp: 36.9 ??C (98.5 ??F) TempSrc: Oral SpO2: 99% Weight: (!) 137.7 kg (303 lb 8 oz) Height: 162.6 cm (5' 4 ) No exam data present History reviewed. No pertinent past medical history. Current Outpatient Medications: ??? norethindrone (MICRONOR) 0.35 mg tablet, Take 1 tablet by mouth daily, Disp: , Rfl: ??? sertraline (ZOLOFT) 25 mg tablet, , Disp: , Rfl: ??? cetirizine (ZyrTEC) 10 mg tablet, Take 10 mg by mouth daily, Disp: , Rfl: Allergies Allergen Reactions ??? Fluoxetine Mental status changes ??? Nitrofurantoin Itching Social History Socioeconomic History ??? Marital status: Single Tobacco Use ??? Smoking status: Never Smoker Social History Narrative Merged History Encounter Lives with parents : (Added by Be Here) Currently in 11th grade : (Added by [employer] Here) Sibling : (Added by Be Here) Pets/Animals: Dog (Added by Be Here) Pets/Animals: Cat (Added by Be Here) Assessment/Plan Diagnoses and all orders for this visit: Urinary urgency (Primary) - POCT urinalysis dipstick - Urine culture Urine, clean voided; Future Flank pain Viral upper respiratory tract infection Recent Results (from the past 4 hour(s)) POCT urinalysis dipstick Collection Time: 08/19/21 9:08 AM Result Value Ref Range Color, Urine, POC Dark Brissa Clarity, ur, POC Cloudy (A) Clear Glucose, ur, POC Negative Negative mg/dL Bilirubin, ur, POC Negative Negative, Small, Moderate, Large Ketones, ur, POC Negative Negative Specific [place], POC 1.030 1.005 - 1.030 Blood, ur, POC Negative Negative pH, ur, POC 5.5 5.0 - 8.0 Protein, ur, POC Negative Negative Urobilinogen, urine, POC 0.2 0.2 - 1.0 mg/dL Nitrite, ur, POC Negative Negative Leukocytes, ur, POC Negative Negative Lot Number [id number] Patient Education: Patient has been instructed to report to the emergency room for further evaluation of her kidneys. We are going to send a urine culture, but with her urine dip being negative and her having chills, back pain, and abdominal discomfort, I would like her to report for further evaluation. She agreed. Patient should begin taking her Tessalon as prescribed by the provider during her virtual visit since it is helping. Drink plenty of fluids. Get plenty of rest. Cool mist humidifier. COMMON COLD Drink plenty of fluids and get plenty of rest You can take: ??? Cromolyn nasal spray per package directions as needed ??? An over the counter decongestant and/or antihistamine daily (per package directions) such as Zyrtec-D as needed ??? Tylenol or ibuprofen as needed for fever or pain (per package directions) ??? Elevate head of bed as needed ??? May use humidifier if congested Follow up with [facility] or your PCP if symptoms worsen or do not improve within 10-14 days from symptom onset. Disposition ??? Treatment plan including expectations, follow up, and return precautions discussed with patient/parent, verbalizes understanding. ??? Medication dosage, use, and potential adverse reactions discussed with patient/parent. ??? Advised to follow up with PCP if symptoms do not resolve as expected or sooner if condition worsens. ??? Signs/symptoms warranting ER evaluation reviewed. ??? Patient and/or guardian was given an opportunity to ask questions, questions answered. Sourav Jones NP documented in this encounter Plan of Treatment Not on file documented as of this encounter Procedures Procedure Name Priority Date/Time Associated Diagnosis Comments POCT URINALYSIS DIPSTICK Routine 08/19/2021 9:08 AM CDT Urinary urgency documented in this encounter Results * Urine culture Urine, clean voided (08/19/2021 9:21 AM CDT) Report Final Report: Less than 100,000 colonies/mL (clinically insignificant growth based on current clinical standards) [facility] Comment:Testing performed by : [facility], [address] [place]., [address] Organism (CLINICALLY INSIGNIFICANT GROWTH [facility]AN [facility] Urine, clean voided 08/19/2021 9:21 AM CDT 08/19/2021 4:44 PM CDT Narrative FRAN [facility]IU - 08/21/2021 7:05 AM CDT Testing performed by [facility] ([phone]) Sourav Jones NP LAB MICROBIOLOGY - GENERAL ORDERABLES Final Result [facility]AN [facility] [id number] [address] Department [place] [address] * (ABNORMAL) POCT urinalysis dipstick (08/19/2021 9:08 AM CDT) Color, Urine, POC Dark Brissa Clarity, ur, POC Cloudy(A) Clear Glucose, ur, POC Negative Negative mg/dL Bilirubin, ur, POC Negative Negative, Small, Moderate, Large Ketones, ur, POC Negative Negative Specific [place], POC 1.030 1.005 - 1.030 Blood, ur, POC Negative Negative pH, ur, POC 5.5 5.0 - 8.0 Protein, ur, POC Negative Negative Urobilinogen, urine, POC 0.2 0.2 - 1.0 mg/dL Nitrite, ur, POC Negative Negative Leukocytes, ur, POC Negative Negative Lot Number [id number] Urine 08/19/2021 9:08 AM CDT Sourav Jones NP POINT OF CARE TEST ORDERABL ES Final Result documented in this encounter Visit Diagnoses Diagnosis Urinary urgency- Primary Urgency of urination Flank pain Abdominal pain, unspecified site Viral upper respiratory tract infection Acute upper respiratory infections of unspecified site Urinary urgency Urgency of urination documented in this encounter Historical Medications * This list may reflect changes made after this encounter. sertraline (ZOLOFT) 25 mg tablet 08/15/2021 04/12/2022 cetirizine (ZyrTEC) 10 mg tablet Take 1 tablet (10 mg total) by mouth daily 07/11/2022 added in this encounter Additional Health Concerns Infection Onset Date Last Indicated Resolved Time COVID: Recovered Comment:Added based on recent COVID infection. 06/23/2021 08/17/2021 10/21/2021 3:06 AM C DT documented as of this encounter Care Teams Claim Investigator Relationship Specialty Start Date End Date Sourav Jones NP PCP - General Family Medicine 08/19/21 08/20/21 No, Physician 06/08/21 documented as of this encounter
--- OUTSIDE RECORDS SUMMARY | 2024-06-06 00:38 | XMS_ITS | Encounter Summary ---
Author Organization [facility] Address [address] [facility] [address] [place] [id number] Care Team Providers Care Milling Machine Set Up Operator Name Role Phone No, Physician Primary Care Provider [phone] Reason for Visit * Reason Comments URI started saturday, coug h, sore throat vaccinated. Encounter Details Date Type Department Care Team (Latest Contact Info) Description 05/25/2021 1:15 PM COIL FINISHER Office Visit [facility] [address] [address] Lynda Thompson NP [address] [place] [address] [address] [place] [address] Acute nasopharyngitis (Primary Dx) Social History Tobacco Use Types Packs/Day Years Used Date Smoking Tobacco: Never Assessed Comments Unknown Sex and Gender Information Value Date Recorded Sex Assigned at Not on file Legal Sex Female 6:55 PM COIL FINISHER Gender Identity Female 06/06/2022 7:40 AM COIL FINISHER Sexual Orientation Not on file documented as of this encounter Last Filed Vital Signs Vital Sign Reading Time Taken Comments Blood Pressure 136/83 05/25/2021 1:15 PM COIL FINISHER Pulse 97 05/25/2021 1:15 PM COIL FINISHER Temperature 37 ??C (98.6 ??F) 05/25/2021 1:15 PM COIL FINISHER Respiratory Rate 20 05/25/2021 1:15 PM COIL FINISHER Oxygen Saturation 98% 05/25/2021 1:15 PM COIL FINISHER Inhaled Oxygen Concentration - - Weight 134.3 kg (296 lb) 05/25/2021 1:15 PM COIL FINISHER Height 162.6 cm (5' 4 ) 05/25/2021 1:15 PM COIL FINISHER Body Mass Index 50.81 05/25/2021 1:15 PM COIL FINISHER documented in this encounter Patient Instructions * Patient Instructions* Fiordaliza Coats MA - 05/25/2021 1:15 PM COIL FINISHER Results for orders placed or performed in visit on 05/25/21 POC Influenza A/B, COVID-19 antigen Result Value Ref Range Inflenza A Ag, POC Negative Influenza B Ag, POC Negative COVID-19 Ag POC Presumptive Negative Presumptive Negative, Invalid POCT rapid strep A Result Value Ref Range Rapid Strep A, POC Negative Patient Education Cold Symptoms VIDEO GAME ANIMATOR: Cold symptoms include sneezing, dry throat, a stuffy nose, headache, watery eyes, and a cough. Yourcough may be dry, or you may cough up mucus. You may also have muscle aches, joint pain, and tiredness. Rarely, you may have a fever. Cold symptoms occur from inflammation in your upper respiratory system caused by a virus. Most colds go away without treatment. Seek care immediately if: ?? You have increased tiredness and weakness. ?? You are unable to eat. ?? Your heart is beating much faster than usual for you. ?? You see white spots in the back of your throat and your neck is swollen and sore to the touch. ?? You see pinpoint or larger reddish-purple dots on your skin. Contact your healthcare provider if: ?? You have a fever higher than 102??F (38.9??C). ?? You have new or worsening shortness of breath. ?? You have thick nasal drainage for more than 2 days. ?? Your symptoms do not improve or get worse within 5 days. ?? You have questions or concerns about your condition or care. Treatment for cold symptoms may include NSAIDS to decrease muscle aches and fever. Cold medicines may also be given to decrease coughing, nasal stuffiness, sneezing, and a runny nose. Manage your cold symptoms: The following may help relieve cold symptoms, such as a dry throat and congestion: ?? Gargle with mouthwash or warm salt water as directed. ?? Suck on throat lozenges or hard candy. ?? Use a cold or warm vaporizer or humidifier to ease your breathing. ?? Rest for at least 2 days and then as needed to decrease tiredness and weakness. ?? Use petroleum based jelly around your nostrils to decrease irritation from blowing your nose. ?? Drink plenty of liquids. Liquids will help thin and loosen thick mucus so you can cough it up. Liquids will also keep you hydrated. Ask your healthcare provider which liquids are best for you and how much to drink each day. Prevent the spread of germs by washing your hands often. You can spread your cold germs to others for at least 3 days after your symptoms start. Do not share items, such as eating utensils. Cover your nose and mouth when you cough or sneeze using the crook of your elbow instead of your hands. Throwused tissues in the garbage. Do not smoke: Smoking may worsen your symptoms and increase the length of time you feel sick. Talk with your healthcare provider if you need help to stop smoking. Follow up with your healthcare provider as directed: Write down your questions so you remember to ask them during your visits. ?? 2017 [employer] Information is for End User's use only and may not be sold, redistributed or otherwise used for commercial purposes. All illustrations and images included in CareNotes?? are the copyrighted property of [employer] or [employer]. The above information is an forestry aid only. It is not intended as medical advice for individual conditions or treatments. Talk to your doctor, nurse or pharmacist before following any medical regimen to see if it is safe and effective for you. FINISHER FINISHER documented in this encounter Ordered Prescriptions Prescription Sig Dispense Quantity Refills Last Filled Start Date End Date predniSONE (DELTASONE) 20 mg tabletIndications:Acu te nasopharyngitis Take 2 tablets (40 mg) by mouth daily for 5 days 10 tablet 05/25/2021 2 documented in this encounter Progress Notes * Lynda Thompson NP - 05/25/2021 1:15 PM CST Images from the original note were not included. Subjective/Objective Patient ID: Emily Guerrier is a 25 y.o. female. Chief Complaint URI (started saturday, cough, sore throat vaccinated. ) URI This is a new problem. Episode onset: saturday05/22/21. The problem has been gradually worsening. There has been no fever. Associated symptoms include congestion, coughing and a sore throat. Pertinentnegatives include no abdominal pain, chest pain, diarrhea, ear pain, headaches, nausea, neck pain, rash, rhinorrhea, shortness of breath, sinus pain, sneezing, vomiting or wheezing. Treatments tried:dayquil, sudafed, benadryl. The treatment provided mild relief. pt states she is coughing so much she can not sleep at all, pt states in the past prednisone and zpack work for her. Review of Systems Constitutional: Negative for appetite change, chills, diaphoresis, fatigue and fever (99F max x1). HENT: Positive for congestion and sore throat. Negative for ear discharge, ear pain, postnasal drip, rhinorrhea, sinus pressure, sinus pain and sneezing. Respiratory: Positive for cough. Negative for chest tightness, shortness of breath and wheezing. Cardiovascular: Negative for chest pain. Gastrointestinal: Negative for abdominal pain, diarrhea, nausea and vomiting. Musculoskeletal: Negative for myalgias, neck pain and neck stiffness. Skin: Negative for rash. Neurological: Negative for dizziness and headaches. Hematological: Negative for adenopathy. Physical Exam Vitals and nursing note reviewed. Constitutional: General: She is awake. She is not in acute distress. Appearance: Normal appearance. HENT: Head: Normocephalic and atraumatic. Right Ear: Tympanic membrane and ear canal normal. Left Ear: Tympanic membrane and ear canal normal. Nose: Congestion and rhinorrhea present. Right Sinus: No maxillary sinus tenderness or frontal sinus tenderness. Left Sinus: No maxillary sinus tenderness or frontal sinus tenderness. Mouth/Throat: Lips: [place]. Mouth: Mucous membranes are moist. Tongue: Tongue does not deviate from midline. Pharynx: Uvula midline. No pharyngeal swelling, oropharyngeal exudate, posterior oropharyngeal erythema or uvula swelling. Tonsils: No tonsillar exudate or tonsillar abscesses. Eyes: General: Lids are normal. Pupils: Pupils are equal, round, and reactive to light. Cardiovascular: Rate and Rhythm: Normal rate and regular rhythm. Pulses: Normal pulses. Heart sounds: Normal heart sounds. Pulmonary: Effort: Pulmonary effort is normal. No respiratory distress. Breath sounds: Normal breath sounds. No decreased breath sounds, wheezing, rhonchi or rales. Comments: Non productive cough noted through out exam and with deep breaths Musculoskeletal: Cervical back: Full passive range of motion without pain, normal range of motion and neck supple. Lymphadenopathy: Cervical: No cervical adenopathy. Skin: General: Skin is warm and dry. Neurological: Mental Status: She is alert and oriented to person, place, and time. Gait: Gait normal. Psychiatric: Behavior: Behavior is cooperative. Vitals: 05/25/21 1315 BP: 136/83 Pulse: 97 Resp: 20 Temp: 37 ??C (98.6 ??F) TempSrc: Oral SpO2: 98% Weight: 134.3 kg (296 lb) Height: 162.6 cm (5' 4 ) Assessment/Plan Diagnoses and all orders for this visit: Acute nasopharyngitis (Primary) - POC Influenza A/B, COVID-19 antigen - POCT rapid strep A - predniSONE (DELTASONE) 20 mg tablet; Take 2 tablets (40 mg) by mouth daily for 5 days Recent Results (from the past 4 hour(s)) POC Influenza A/B, COVID-19 antigen Collection Time: 05/25/21 1:33 PM Result Value Ref Range Inflenza A Ag, POC Negative Influenza B Ag, POC Negative COVID-19 Ag POC Presumptive Negative Presumptive Negative, Invalid POCT rapid strep A Collection Time: 05/25/21 1:33 PM Result Value Ref Range Rapid Strep A, POC Negative Patient Education: -You may try: ??? Nasal saline wash, either Neti Pot or Sinus Rinse DAILY or a saline nasal spray 3-4 times a day. ??? Guaifenesin expectorants (Maximum Strength Mucinex, Robitussin, store brand) to loosen secretions. ??? For cough you can use dextromethorphan (Delsym syrup, Robitussin cough capsules or store brand). Dextromethorphan is considered safe for and breast feeding women. ??? You may try decongestants such as Sudafed (purchase at pharmacy) or Sudafed PE for congestion relief. Decongestants can keep you awake at night. Do not use decongestants if you have high blood pressure or if you are . If you have high blood pressure you can take otc Coricidin per package directions -Increase fluid intake: drink 2 liters (2 quarts) of non-caffeinated, non- alcoholic beverages daily, drinking alcohol causes nasal and sinus membranes to swell -Steam inhalation and warm compress to face often help relieve pressure -Avoid allergens and excessively dry heat -Sleep with head of bed elevated to encourage drainage. -Use of a humidifier if environment is heated by dry forced - air system -Avoid smoking, second-hand smoke and air pollutants. -If you are not improving or worsening, or develop facial swelling, in the next 5-7 days you must RETURN to the clinic, go to your PCP, or Urgent Care/ER to be SEEN and reevaluated. No further prescriptions or refills will be given by phone without another evaluation. Prednisone Instructions Take this medication with food, preferably breakfast. If taken too late, this medication can cause sleeplessness. Common side effects include increased blood pressure, increased water and sodium retention, increased weight gain, mood changes, and increased blood sugar. Do not take NSAIDS while taking this medication. This includes aspirin, Aleve, Ibuprofen, Naproxen,Midol, Advil, or any medications containing Ibuprofen or aspirin. TAKE ANTACIDS 2 HOURS APART FROM PREDNISONE Go to the ER or call 911 if you experience new onset fevers, personality changes, chest pain, elevated blood pressure >160/90, uncontrollable blood sugars (in diabetics), stomach pain, severe generalized muscle pain, uncontrolled blood pressure, severe headaches, changes in vision, or seizures Risk and possible side effects of prednisone discussed with patient. Pt consents to treatment. Pt. Educated on how to take medication. Disposition ??? Treatment plan including expectations, follow [...] an opportunity to ask questions, questions answered. Lynda Thompson NP 05/25/21 1:55 PM Cosigned by Jacky Del Cid MD at 05/25/2021 2:08 PM COIL FINISHER FINISHER FINISHER documented in this encounter Plan of Treatment Not on file documented as of this encounter Procedures Procedure Name Priority Date/Time Associated Diagnosis Comments POC INFLUENZA A/B, COVID-19 ANTIGEN Routine 05/25/2021 1:33 PM COIL FINISHER Acute nasopharyngitis POCT RAPID STREP Routine 05/25/2021 1:33 PM COIL FINISHER Acute nasopharyngitis documented in this encounter Results * POCT rapid strep A (05/25/2021 1:33 PM COIL FINISHER) Rapid Strep A, POC Negative Swab 05/25/2021 1:33 PM COIL FINISHER Lynda Thompson PUBLIC HEALTH CLINICAL NURSE SPECIALIST POINT OF CARE TEST ORDERABLES F inal Result * POC Influenza A/B, COVID-19 antigen (05/25/2021 1:33 PM COIL FINISHER) Influenza A Ag, POC Negative [facility] Influenza B Ag, POC Negative [facility] COVID-19 Ag POC Presumptive Negative Presumptive Negative, Invalid [facility] Nasal 05/25/2021 1:33 PM COIL FINISHER Lynda Thompson PUBLIC HEALTH CLINICAL NURSE SPECIALIST POINT OF CARE TEST ORDERABLES F inal Result [facility] [address] [place] [address] documented in this encounter Visit Diagnoses Diagnosis Acute nasopharyngitis- Primary Acute nasopharyngitis (common cold) documented in this encounter Historical Medications * This list may reflect changes made after this encounter. norethindrone (MICRONOR) 0.35 mg tablet Take 1 tablet (0.35 mg total) by mouth daily 05/12/2021 02/18/2023 added in this encounter Additional Health Concerns Infection Onset Date Last Indicated Resolved Time COVID: Suspected 05/25/2021 05/25/2021 05/25/2021 1:34 PM COIL FINISHER documented as of this encounter Care Teams Milling Machine Set Up Operator Relationship Specialty Start Date End Date No, Physician PCP - General 05/25/21 06/07/21 documented as of this encounter
--- OUTSIDE RECORDS SUMMARY | 2024-06-06 00:38 | XMS_ITS | Encounter Summary ---
Author Organization [facility] Healthcare Address [address] [place] [address] Care Team Providers Care Continuous Drier Operator Name Role Phone Unavailable Primary Care Provider Unavailabl e Encounter Details Date Type Department Care Team (Latest Contact Info) Description 11/02/2014 11:59 AM CDT Hospital Encounter [facility] David Santos MD [address] [place] [address] Injury, other and unspecified, knee, leg, ankle, and foot Social History Tobacco Use Types Packs/Day Years Used Date Smoking Tobacco: Never Assessed Comments Unknown Sex and Gender Information Value Date Recorded Sex Assigned at Not on file Legal Sex Female 6:55 PM ELECTRICAL SOFTWARE ENGINEER Gender Identity Female 06/06/2022 7:40 AM ELECTRICAL SOFTWARE ENGINEER Sexual Orientation Not on file documented as of this encounter Plan of Treatment Not on file documented as of this encounter Procedures Procedure Name Priority Date/Time Associated Diagnosis Comments MRI LOWER EXT NON-JOINT RIGHT Routine 11/02/2014 12:15 PM CDT documented in this encounter Results * MRI Lower Ext Non-Joint Right (11/02/2014 12:15 PM CDT) Anatomical Region Laterality Modality Body N/A Magnetic Resonan ce 11/02/2014 12:1 5 PM CDT Impressions 11/02/2014 3:04 PM CDT ?? 1. ??No significant internal derangement of the right forefoot. 2. ??Fiducial marker placed by the patient over the area of concern along the dorsal aspect of the forefoot over the midshaft of the second metatarsal is seen. ??No underlying signal abnormality. No stress-related change or stress fracture. THIS IS AN ELECTRONICALLY VERIFIED REPORT 11/02/2014 2:59 PM: ??Segundo Tran M.D. Segundo Tran M.D. MJ:aleah 02:59 PM 02:59 PM BM [EOD] Narrative 11/02/2014 3:04 PM CDT EXAMINATION: ??MRI right foot without IV contrast. HISTORY: ??Right foot pain over several weeks. ??Pain starts at top of foot and radiates to plantar aspect. COMPARISON: ??X-ray 09/20/2014. TECHNIQUE: ??Multiplanar MRI images of the right foot were obtained without IV contrast. ??Forefoot protocol was utilized to best cover the area of pain. ??A fiducial marker was placed by the patient over the area concern. ??This is seen along the dorsal aspect of the mid shaft of the second metatarsal. FINDINGS: ??Fiducial marker is seen along the dorsal aspect of the forefoot over the area of pain along the midshaft of the second metatarsal. ??There is no underlying signal abnormality. ??The metatarsals demonstrate no evidence of stress-related change or of a stress fracture. ??Specifically, the second appears normal as well. ??The extensor tendons appear normal throughout as do the flexor tendons. ??Collateral ligaments about the MTP joints and phalanges demonstrate normal signal. ??Lisfranc ligament is intact. ??Sesamoids demonstrate normal signal. Procedure Note Provider, MD Marcela - 10/11/2020 EXAMINATION: MRI right foot without IV contrast. HISTORY: Right foot pain over several weeks. Pain starts at top of footand radiates to plantar aspect. COMPARISON: X-ray 09/20/2014. TECHNIQUE: Multiplanar MRI images of the right foot were obtained withoutIV contrast. Forefoot protocol was utilized to best cover the area of pain.A fiducial marker was placed by the patient over the area concern. This isseen along the dorsal aspect of the mid shaft of the second metatarsal. FINDINGS: Fiducial marker is seen along the dorsal aspect of the forefoot over the area of pain along the midshaft of the second metatarsal. Thereis no underlying signal abnormality. The metatarsals demonstrate no evidenceof stress-related change or of a stress fracture. Specifically, the second appears normal as well. The extensor tendons appear normal throughout asdo the flexor tendons. Collateral ligaments about the MTP joints andphalanges demonstrate normal signal. Lisfranc ligament is intact. Sesamoids demonstrate normal signal. IMPRESSION: 1. No significant internal derangement of the right forefoot. 2. Fiducial marker placed by the patient over the area of concern alongthe dorsal aspect of the forefoot over the midshaft of the second metatarsalis seen. No underlying signal abnormality. No stress-related change orstress fracture. THIS IS AN ELECTRONICALLY VERIFIED REPORT 11/02/2014 2:59 PM: Segundo Tran M.D. Segundo Tran M.D. MJ:aleah 02:59 PM 02:59 PM [facility] [EOD] David Santos MD IMG MRI PROCEDURES Final Resu lt documented in this encounter Visit Diagnoses Diagnosis Injury, other and unspecified, knee, leg, ankle, and foot documented in this encounter
--- OUTSIDE RECORDS SUMMARY | 2024-06-06 00:38 | XMS_ITS | Encounter Summary ---
Author Organization [facility] Healthcare Address [address] [place] [address] Care Team Providers Care Manager Of Revenue Name Role Phone Unavailable Primary Care Provider Unavailabl e Encounter Details Date Type Department Care Team (Latest Contact Info) Description 01/20/2016 3:09 PM CDT - 01/20/2016 5:02 PM CDT Hospital Encounter [facility] Carl[place], [address] [address] Closed nondisplaced fracture of fourth metatarsal bone of right foot; Striking against other stationary object, initial encounter Social History Tobacco Use Types Packs/Day Years Used Date Smoking Tobacco: Never Assessed Comments Unknown Sex and Gender Information Value Date Recorded Sex Assigned at Not on file Legal Sex Female 6:55 PM LABOR RELATIONS REPRESENTATIVE Gender Identity Female 06/06/2022 7:40 AM LABOR RELATIONS REPRESENTATIVE Sexual Orientation Not on file documented as of this encounter Last Filed Vital Signs Vital Sign Reading Time Taken Comments Blood Pressure 128/83 01/20/2016 3:10 PM CDT Pulse 100 01/20/2016 3:10 PM CDT Temperature 36.8 ??C (98.3 ??F) 01/20/2016 3:10 PM CD T Respiratory Rate - - Oxygen Saturation 98% 01/20/2016 3:10 PM CDT Inhaled Oxygen Concentration - - Weight 100.2 kg (221 lb) 01/20/2016 3:10 PM CDT Height 162.6 cm (5' 4 ) 01/20/2016 3:10 PM CDT Body Mass Index 37.93 01/20/2016 3:10 PM CDT Body Mass Index Percentile 98.44% 01/20/2016 3:1 0 PM CDT Growth Chart: [facility] (Girls, 2- 20 Years) documented in this encounter Plan of Treatment Not on file documented as of this encounter Procedures Procedure Name Priority Date/Time Associated Diagnosis Comments XR FOOT RIGHT 3 OR MORE VIEWS Routine 01/20/2016 12:00 AM CDT documented in this encounter Results * XR Foot Right 3 or More Views (01/20/2016 12:00 AM CDT) Anatomical Region Laterality Modality Lower Extremities, Foot Right [facility] 01/20/2016 Impressions 01/20/2016 4:48 PM CDT ?? Nondisplaced fracture of the head of the fourth metatarsal. THIS IS AN ELECTRONICALLY VERIFIED REPORT 01/20/2016 4:45 PM: ??Pavan Miles M.D. ?? Pavan Miles M.D. AT:at 04:45 PM 04:45 PM [facility] [EOD] Narrative 01/20/2016 4:48 PM CDT EXAMINATION: ??Three views of the right foot DATE: 01/20/2016 COMPARISON: ??09/20/2014 HISTORY: ??Kicked wall 12 days ago. ??Pain in distal first through fourth metatarsals. TECHNIQUE: ??AP, lateral, oblique views of the right foot were obtained. FINDINGS: ?? There is a nondisplaced fracture of the head of the fourth metatarsal seen on the AP and oblique views. ??Appearance is new from the prior examination. ??No radiopaque foreign bodies are identified. ??No focal soft tissue swelling is seen. ??Remaining osseous structures appear intact. Procedure Note Provider, Marecla, - 10/11/2020 EXAMINATION: Three views of the right foot DATE: 01/20/2016 COMPARISON: 09/20/2014 HISTORY: Kicked wall 12 days ago. Pain in distal first through fourth metatarsals. TECHNIQUE: AP, lateral, oblique views of the right foot were obtained. FINDINGS: There is a nondisplaced fracture of the head of the fourth metatarsal seenon the AP and oblique views. Appearance is new from the prior examination.No radiopaque foreign bodies are identified. No focal soft tissue swellingis seen. Remaining osseous structures appear intact. IMPRESSION: Nondisplaced fracture of the head of the fourth metatarsal. THIS IS AN ELECTRONICALLY VERIFIED REPORT 01/20/2016 4:45 PM: Pavan Miles M.D. Pavan Miles M.D. AT:at 04:45 PM 04:45 PM [facility] [EOD] Historical Provider IMG XR PROCEDURES Final R esult documented in this encounter Visit Diagnoses Diagnosis Closed nondisplaced fracture of fourth metatarsal bone of right foot Striking against other stationary object, initial encounter documented in this encounter
--- OUTSIDE RECORDS SUMMARY | 2024-06-06 00:38 | XMS_ITS | Encounter Summary ---
Author Organization [facility] Healthcare Address [address] [place] [address] Care Team Providers Care Rental Coordinator Name Role Phone Unknown, Notinfile Primary Care Provider Unavail able No, Physician Unavailable Reason for Visit * Reason Onset Date Comments COVID-19 EVALUATION 06/12/2021 Encounter Details Date Type Department Care Team (Late st Contact Info) Description 06/12/2021 Telephone [facility] [id number] Floor) [place] [address] Yuly Nice, RN COVID-19 EVALUATION Social History Tobacco Use Types Packs/Day Years Used Date Smoking Tobacco: Never Comments Unknown Sex and Gender Information Value Date Recorded Sex Assigned at Not on file Legal Sex Female 6:55 PM HEAD STOCK OPERATOR Gender Identity Female 06/06/2022 7:40 AM HEAD STOCK OPERATOR Sexual Orientation Not on file documented as of this encounter Miscellaneous Notes * Telephone Encounter - Yuly Nice RN - 06/12/2021 9:13 AM CST Employee COVID-19 Screening 05/26/2021 06/12/2021 Vaccine related call? No No Email: [email or web address] Employee/Student ID# [id number] Are you an employee or student? 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 On-site On-site Have you been tested for Covid-19 previously? Yes - Have you ever had a positive COVID-19 swab or saliva test? No - What was the date of your most recent negative test? 05/25/2021 - What was the date of your most recent negative test? rapid tested at [facility] - Have you been vaccinated against Covid-19? Yes - Who provided the vaccine: Other (specify) - Date of first vaccine dose: 06/17/2020 - Date of second vaccine dose: 07/08/2020 - Have you had a known, specific Covid exposure within the last 14 days? Yes - Did the exposure take place at work / on campus? Yes - Have you contacted your Occupational Health office or Student Health Services? Yes - Was your exposure to a patient, coworker or visitor Coworker - Date of exposure: 05/18/2021 - Name of the COVID-19 positive person to whom you were exposed: Coworker - Was the person to whom you were exposed wearing a mask/face covering? No - Date of the COVID-19 test for the person to whom you were exposed: (No Data) - Date of Patient Test Comment not sure when - Test result of the person to whom you were exposed: Positive - What PPE was employee wearing? None - Description of exposure: not 15 minutes or more - Employee Symptoms: Yes Yes Date of employee symptom onset: 05/22/2021 06/07/2021 Description of Symptoms: Cough;Sore Throat;Other;Fever Cough Temperature: 99.6 - Other Symptoms: headache, chills, congestion - Did you have symptoms at work? Yes - Date symptoms started: - 06/07/2021 Date last worked: 05/25/2021 - Do you currently live with, or have ongoing contact with, someone known or suspected to have Covid-19? No - Exposure Risk (See Exposure Guide): No known or low risk exposure - Assessment: Symptomatic, unknown exposure - Plan: (A) Stay home and test for symptoms (A) Stay home and test for symptoms Testing Site Location: [facility] Script A0 (Stay home and test) for symptomatic, exposed HCW, symptomatic, unexposed Non-HCW or Vaccinated Non-HCW Thank you for calling the Employee COVID-19 Call Center. This email contains the same information and recommendations discussed during your call. You should also forward this information to your cargo supervisor as confirmation. Given your symptoms, you should not come to work and will be referred for combined COVID/Influenza testing. Or, if you have had a COVID infection in the past 3 months, you will be tested for influenza only. ??? If you are at work on site, you must leave work now. Notify your cargo supervisor that you have been directed to do so by the Occupational Health Employee COVID- 19 Call Center. ??? Please go to the employee testing site as directed for your test. They should be expecting you;if there is any confusion, please call us at [phone]. ??? While you are awaiting testing and results, you must remain off work. You should isolate yourself at home, avoid contact with any household members as much as possible, and stay in your home without leaving except for medical care. ??? You should let your cargo supervisor know that you will not be coming to work. Although we will emailyour cargo supervisor to confirm this, it is still your responsibility to notify your cargo supervisor as you would for any other work absence. We will notify you of your test results, which are usually available within 24- 48 hours. Your results will also post to your [facility] My Chart account ([email or web address]). Once yourresults are back, you will receive further instruction from Occupational Health. If you test positive for COVID-19, you must be cleared by Occupational Health ([facility]) before you can return to work. [facility] will notify you and your education general manager when you can return to work. Should your test result positive, [facility] will work with you to identify any close contacts you may have had at work. [facility] willthen alert your work contacts directly; you do not have to. Your cargo supervisor should consult with [facility] if they have any questions and before any communication with coworkers about a positive test. [facility] will help ensure that coworkers potentially at risk are notified and given appropriate advice without unnecessary disclosure of personal health information. If you test negative for COVID-19, you may not return to work until you have been fever-free (temperature less than 100??F) for at least 24 hours and your other symptoms are improved. Occupational Health does not currently have the manpower to individually clear each employee with a negative test; once you are notified of a negative test result, you and your cargo supervisor must decide when it is appropriate for you to return to work, using the guidance that will be send with your negative test notification. STOCK OPERATOR documented in this encounter Plan of Treatment Not on file documented as of this encounter Results * (ABNORMAL) Influenza A/B and COVID-19 PCR Nasopharyngeal (06/13/2021 9:51 AM HEAD STOCK OPERATOR) COVID-19 RNA Detected(A) [facility] Comment: Interpretive Data Synonyms for this test include: PCR and NAAT . ??Testing performed by the [facility] Molecular Infectious Disease Laboratory. The 2019-Novel [...] 30, 2020. Influenza A RNA Not Detected [facility] Influenza B RNA Not Detected [facility] Comment: Interpretive Data Testing performed by the [facility] Molecular Infectious Disease Laboratory. This test is performed using the pieter Influenza A/B Assay. This is a real-time RT-PCR test for the qualitative detection of nucleic acid from Influenza A and Influenza B. This assay has been reviewed by the FDA for Emergency Use Authorization (EUA). The performance characteristics have been verified by the [facility] Laboratory. Results should be interpreted in combination with clinical context and a negative result does not rule out infection. ?? Interpretive data last revised 2020. First COVID-19 test? No [facility] Employeed in healthcare? Yes [facility] status? Unknown [facility] Group care resident? No [facility] Hospitalized? No [facility] Is patient in ICU? No [facility] Symptomatic as defined by CDC? Yes [facility] Nasopharyngeal 06/13/2021 9: 51 AM HEAD STOCK OPERATOR 06/13/2021 1:33 PM HEAD STOCK OPERATOR Narrative [facility] - 06/13/2021 8:28 PM HEAD STOCK OPERATOR Patient is employed by/enrolled at:->[employer] Date of Symptom Onset->06/07/21 Reason for testing?->Symptomatic us Tanya Montaño MD LAB MICROBIOLOGY - GENERAL ORDERABLES Final Result [facility] Department [place] [address] documented in this encounter Visit Diagnoses Diagnosis Cough- Primary Cough documented in this encounter Additional Health Concerns Infection Onset Date Last Indicated Resolved Time COVID: Suspected 06/12/2021 06/13/2021 06/13/2021 8:28 PM HEAD STOCK OPERATOR documented as of this encounter Care Teams Rental Coordinator Relationship Specialty Start Date End Date Unknown, Notinfile PCP - General 06/08/21 08/18/21 No, Physician 06/08/21 documented as of this encounter
--- OUTSIDE RECORDS SUMMARY | 2024-06-06 00:38 | XMS_ITS | Encounter Summary ---
Author Organization [facility] Healthcare Address [address] [place] [address] Care Team Providers Care Er Medical Technician Name Role Phone No, Physician Primary Care Provider [phone] Encounter Details Date Type Department Care Team (Late st Contact Info) Description 05/27/2021 6:50 AM DROP WIRE HANGER Lab [address] [address] Cough Social History Tobacco Use Types Packs/Day Years Used Date Smoking Tobacco: Never Assessed Comments Unknown Sex and Gender Information Value Date Recorded Sex Assigned at Not on file Legal Sex Female 6:55 PM DROP WIRE HANGER Gender Identity Female 06/06/2022 7:40 AM DROP WIRE HANGER Sexual Orientation Not on file documented as of this encounter Plan of Treatment Not on file documented as of this encounter Procedures Procedure Name Priority Date/Time Associated Diagnosis Comments INFLUENZA A/B AND COVID-19 PCR Routine 05/26/2021 10:54 AM DROP WIRE HANGER Cough documented in this encounter Results * Influenza A/B and COVID-19 PCR Nasopharyngeal (05/26/2021 10:54 AM DROP WIRE HANGER) COVID-19 RNA Not Detected [facility] Comment: Interpretive Data Synonyms for this test include: PCR and NAAT . ??Testing performed by the [facility] Molecular Infectious Disease Laboratory. The 2019-Novel Coronavirus [...] 30, 2020. Influenza A RNA Not Detected [facility] Influenza B RNA Not Detected [facility] Comment: Interpretive Data Testing performed by the [facility] Molecular Infectious Disease Laboratory. This test is performed using the pieter Influenza A/B Assay. This is a real-time RT-PCR test for the qualitative detection of nucleic acid from Influenza A and Influenza B. This assay has been reviewed by the FDA for Emergency Use Authorization (EUA). The performance characteristics have been verified by the [facility] Laboratory. Results should be interpreted in combination with clinical context and a negative result does not rule out infection. ?? Interpretive data last revised 2020. First COVID-19 test? No [facility] Employeed in healthcare? Yes [facility] status? No [facility] Group care resident? No [facility] Hospitalized? No [facility] Is patient in ICU? No [facility] Symptomatic as defined by CDC? Yes [facility] Nasopharyngeal 05/26/2021 10 :54 AM DROP WIRE HANGER 05/27/2021 8:34 AM DROP WIRE HANGER Narrative [facility] - 05/27/2021 6:57 PM DROP WIRE HANGER Patient is employed by/enrolled at:->[employer] Date of Symptom Onset->05/22/21 us Tanya Montaño MD LAB MICROBIOLOGY - GENERAL ORDERABLES Final Result [facility] Department [place] [address] documented in this encounter Visit Diagnoses Diagnosis Cough documented in this encounter Additional Health Concerns Infection Onset Date Last Indicated Resolved Time COVID: Suspected 05/26/2021 05/26/2021 05/27/2021 6:58 PM DROP WIRE HANGER documented as of this encounter Care Teams Er Medical Technician Relationship Specialty Start Date End Date No, Physician PCP - General 05/25/21 06/07/21 documented as of this encounter
--- OUTSIDE RECORDS SUMMARY | 2024-06-06 00:38 | XMS_ITS | Encounter Summary ---
Author Organization [facility] Address [address] [place] [address] Care Team Providers Care Field Service Tech Name Role Phone Unknown, Notinfile Primary Care Provider Unavail able No, Physician Unavailable Encounter Details Date Type Department Care Team (Late st Contact Info) Description 06/15/2021 Orders Only [facility] Accountable Care Organization [address] [place] [address] [address] [place], [address] [address] Social History Tobacco Use Types Packs/Day Years Used Date Smoking Tobacco: Never Comments Unknown Sex and Gender Information Value Date Recorded Sex Assigned at Not on file Legal Sex Female 6:55 PM CROP DUSTER Gender Identity Female 06/06/2022 7:40 AM CROP DUSTER Sexual Orientation Not on file documented as of this encounter Plan of Treatment Not on file documented as of this encounter Visit Diagnoses Not on filedocumented in this encounter Additional Health Concerns Infection Onset Date Last Indicated Resolved Time COVID19 06/13/2021 06/13/2021 06/23/2021 3:08 AM CROP DUSTER documented as of this encounter Care Teams Field Service Tech Relationship Specialty Start Date End Date Unknown, Notinfile PCP - General 06/08/21 08/18/21 No, Physician 06/08/21 documented as of this encounter
--- OUTSIDE RECORDS SUMMARY | 2024-06-06 00:38 | XMS_ITS | Encounter Summary ---
Author Organization [facility] Healthcare Address [address] [place] [address] Care Team Providers Care Engineering Consultant Name Role Phone No, Physician Unavailable Sourav Jones NP Primary Care Provider Reason for Visit * Reason Comments Flank Pain Right sided flank pa in started last night + urinary ugency. Went to [facility] urgent care, checked urine but did not did do bloodwork. Wanted pt to go to ED to further evaluation. Encounter Details Date Type Department Care Team (Late st Contact Info) Description 08/19/2021 11:33 AM CDT - 08/19/2021 3:29 PM T Emergency [facility] Emergency Department [facility] [place] [address] Right flank pain (Primary Dx); RLQ abdominal pain; Nausea; Acute cystitis without hematuria; Leukocytosis, unspecified type Discharge Disposition: Discharge to home or self care Social History Tobacco Use Types Packs/Day Years Used Date Smoking Tobacco: Never Comments Unknown Sex and Gender Information Value Date Recorded Sex Assigned at Not on file Legal Sex Female 6:55 PM TOUR AGENT Gender Identity Female 06/06/2022 7:40 AM TOUR AGENT Sexual Orientation Not on file documented as of this encounter Last Filed Vital Signs Vital Sign Reading Time Taken Comments Blood Pressure 134/78 08/19/2021 3:26 PM CDT Pulse 90 08/19/2021 3:26 PM CDT Temperature 36.5 ??C (97.7 ??F) 08/19/2021 1:04 PM CD T Respiratory Rate 18 08/19/2021 3:26 PM CDT Oxygen Saturation 98% 08/19/2021 3:26 PM CDT Inhaled Oxygen Concentration - - Weight 137.1 kg (302 lb 4 oz) 08/19/2021 11:02 A M CDT Height 162.6 cm (5' 4 ) 08/19/2021 11:02 AM CDT Body Mass Index 51.88 08/19/2021 11:02 AM CDT documented in this encounter Discharge Instructions * Discharge Instructions* Ann Robesron PA - 08/19/2021 2:58 PM CDT Follow-up as recommended is mandatory. [...] Everywhere. * Acute Abdominal Pain (AfterCare(R) Instructions(ER/ED)) ([place]izen [place]) * Urinary Tract Infection in Women (Shaker [place]her) (Citizen [place]) * Leukocytosis (AfterCare(R) Instructions(ER/ED)) (Citizen [place]) * Acute Nausea and Vomiting (AfterCare(R) Instructions(ER/ED)) (Citizen [place]) documented in this encounter Medications at Time of Discharge albuterol HFA (PROVENTIL HFA,VENTOLIN HFA,PROAIR HFA) 90 mcg/actuation inhaler Ventolin HFA 90 mcg/actuation aerosol inhaler 08/06/2019 04/12/20 22 cetirizine (ZyrTEC) 10 mg tablet Take 1 tablet (10 mg total) by mouth daily 07/11/19 23 fluconazole (DIFLUCAN) 150 mg tablet Take only [...] (ZOLOFT) 25 mg tablet 08/15/2021 04/12/20 22 sulfamethoxazole-tr imethoprim (BACTRIM DS) 800-160 mg per tablet Take 1 tablet by mouth 2 (two) times a day for 7 days smx-tmp DS (BACTRIM) 800-160 mg tabs 14 tablet 08/19/2021 08/22/19 22 documented as of this encounter Ordered Prescriptions Prescription Sig Dispense Quantity Refills Last Filled Start Date End Date fluconazole (DIFLUCAN) 150 mg tablet Take only if you get symptoms for a yeast infection due to antibiotics 1 tablet 08/19/2021 04/12/20 22 ondansetron ODT (ZOFRAN-ODT) 4 mg disintegrating tablet Dissolve 1 tablet for mild to moderate nausea or vomiting or 2 tablets for severe nausea or vomiting orally under tongue q 6 hours prn 20 tablet 08/19/2021 03/21/20 22 sulfamethoxazole-tr imethoprim (BACTRIM DS) 800-160 mg per tablet Take 1 tablet by mouth 2 (two) times a day for 7 days smx-tmp DS (BACTRIM) 800-160 mg tabs 14 tablet 08/19/2021 08/22/19 22 documented in this encounter Discharge Disposition Disposition Code Departure Means Destination Discharge to home or self care Other documented in this encounter ED Notes * Ann Roberson PA - 08/19/2021 11:07 AM CDT HPI Chief Complaint Patient presents with ??? Flank Pain Right sided flank pain started last night + urinary ugency. Went to [facility] urgent care, checked urine but did not did do bloodwork. Wanted pt to go to ED to further evaluation. HPI 3:19 PM Emily Guerrier is a 25 y.o. female presenting to the ED c/o right flank pain radiating around to her right lower abdomen that began last night. The patient states she went to urgent care because she thought she had a UTI but it was negative for that. They sent her here for further evaluation. She denies nausea or vomiting. She has had chills but no fever. She is having urinary urgency but no dysuria or hematuria. She has taken Tylenol for pain without relief. Currently she rates pain8/10. She denies as she has PCOS Patient History: History reviewed. No pertinent past [...] Triage Vitals Temp Pulse Resp BP SpO2 08/19/21 1102 08/19/21 1102 08/19/21 1102 08/19/21 1102 08/19/21 1102 36.8 ??C (98.3 ??F) 97 20 136/88 99 % Temp src Heart Rate Source Patient Position BP Location FiO2 (%) 08/19/21 1102 08/19/21 1304 08/19/21 1304 08/19/21 1304 -- Oral Monitor Lying Left arm Physical Exam Vitals and nursing note reviewed. Constitutional: General: She is in acute distress. Appearance: She is well-developed. She is morbidly obese. HENT: Head: Normocephalic and atraumatic. Mouth/Throat: Mouth: Mucous membranes are moist. Pharynx: Oropharynx is clear. Eyes: General: No scleral icterus. Right eye: [...] is abdominal tenderness. There is right CVA tenderness. There is no guarding or rebound. Hernia: No hernia is present. Comments: Tender to right lower quadrant Musculoskeletal: General: No tenderness or deformity. Normal range of motion. Cervical back: Normal range of motion and neck supple. Lymphadenopathy: Cervical: No cervical adenopathy. Skin: General: Skin is warm and dry. Capillary Refill: Capillary refill takes less than 2 seconds. Findings: No rash. Neurological: Mental Status: She is alert and oriented to person, place, and time. Sensory: No sensory deficit. Psychiatric: Behavior: Behavior normal. Thought Content: Thought content normal. Judgment: Judgment normal. Procedures MDM Labs Reviewed URINALYSIS AND REFLEX TO MICROSCOPIC AND CULTURE - Abnormal Result Value Color, ur Brissa Clarity, ur Cloudy (*) Specific gravity, ur 1.036 (*) pH, urine 5.0 Protein, ur ql 1+ [...] tendency for uric acid stone formation. Source: [facility] [employer].Last revised 06-06-2017 CBC WITH AUTO DIFFERENTIAL - Abnormal WBC 13.2 (*) Hgb 13.2 Hct 40.3 Plt 384 MPV 8.6 (*) RBC 4.68 MCV 86.1 MCH 28.2 MCHC 32.8 RDW CV 12.5 RDW SD 38.9 NRBC abs 0.00 DIFFERENTIAL AUTO - Abnormal Neutrophil abs 8.4 (*) Imm gran abs 0.1 Lymphocyte abs 3.5 (*) Monocyte abs 1.1 (*) Eosinophil abs 0.1 Basophil abs 0.1 Neutrophil pct 63.2 Imm gran pct 0.4 Lymphocyte pct 26.6 Monocyte pct 8.1 Eosinophil pct 1.1 Basophil pct 0.6 URINALYSIS, MICROSCOPIC ONLY - Abnormal WBC, ur 6-10 (*) RBC, ur 11-20 (*) Epithelial cells, squamous, ur >50 (*) Bacteria, ur 3+ (*) Mucous, ur Present (*) Culture Reflex Comment Value: Reflex conditions for urine culture (WBC >10) not met. POCT HCG, URINE - Normal HCG, ur, POC Negative Lot Number [id number] QC Backgroud Clear Acceptable QC Control Line Acceptable N. GONORRHOEAE/C. TRACHOMATIS AMPLIFICATION TRICHOMONAS VAGINALIS PCR URINALYSIS AND REFLEX TO MICROSCOPIC AND CULTURE COMPREHENSIVE METABOLIC PANEL Sodium 140 Potassium, pl 3.8 Chloride 104 CO2 23 Anion gap 13 BUN 10 Creatinine 0.60 Glucose 101 Calcium 9.4 Bilirubin, total 0.5 Protein, pl 7.7 Albumin 4.5 Alk phos 91 ALT 15 AST 19 LIPASE Lipase 21 EGFR eGFR 129 US Transvaginal Final Result CT Abdomen Pelvis WO Contrast Final Result BP 123/75 (BP Location: Left arm, Patient Position: Lying) Pulse 89 Temp 36.5 ??C (97.7 ??F) (Axillary) Resp 20 Ht 162.6 cm (5' 4 ) Wt (!) 137.1 kg (302 lb 4 oz) SpO2 98% BMI 51.88 kg/m?? MDM Number of Diagnoses or Management Options Acute cystitis without hematuria: new and requires workup Leukocytosis, unspecified type: new and requires workup Nausea: new and requires workup Right flank pain: new and requires workup RLQ abdominal pain: new and requires workup Diagnosis management comments: IN MY MEDICAL DECISION MAKING THE FOLLOWING DIFFERENTIAL DIAGNOSES WERE CONSIDERED BEFORE ARRIVING AT FINAL DIAGNOSIS AND MANY WERE EITHER RULED OUT OR APPEARED UNLIKELY: ACS / AMI, Bowel Obstruction, Constipation, Diverticulitis, Hepatitis / Pancreatitis, Irritable Bowel Syndrome, Pneumonia, / Ectopic / Ovarian, Renal Colic /Ureteral Stone, AAA, GB, PID, PUD, UTI Amount and/or Complexity of Data Reviewed Clinical lab tests: reviewed Tests in the radiology section of CPT??: reviewed Risk of Complications, Morbidity, and/or Mortality Presenting problems: high Diagnostic procedures: high Management options: high Patient Progress Patient progress: stable ED Course as of 08/19/21 1519 Time: 08/19 1141 Comment: The patient has been informed that they may have pre-hypertension or Hypertension based deangelo blood pressure reading in the emergency department. I recommend that the patient call the primarycare provider listed on their discharge instructions or a physician of their choice this week to arrange follow up for further evaluation of possible pre-hypertension or Hypertension. By: Ann Roberson PA Time: 08/19 1242 Comment: Patient is given as a contaminated urine sample. Her white blood cell count is elevated inshe is having symptoms of UTI. I will treat her at this time for UTI given her symptoms. She does not have a kidney stone. By: Ann Roberson PA Time: 08/19 1243 Comment: Patient states the Toradol did not help much with her pain. I reviewed her labs as well wilver CT. I can give her Tylenol for pain at this time. She states she has a very low pain tolerance.She will go home and try to apply heat to the areas to help with discomfort By: Ann Roberson PA Time: 08/19 1303 Comment: As the patient's pain is out of proportion to the physical findings I will obtain an ultrasound of her pelvis to rule out an ovarian torsion. By: Ann Roberson PA Time: 08/19 2824 Comment: The patient explicitly denies concern for STDs. No vaginal irritation or discharge. By: Ann Roberson PA Time: 08/19 8571 Comment: I spoke with the patient about admission as her white blood cell count is elevated in she does have a lot of pain to her right lower quadrant and right flank. I spoke with her about the possibility of appendicitis. She states she does not want to stay. She understands that if her pain worsens she should return. She also understands the risk of appendix rupture. She would like to be treated for UTI and to be discharged. She can return at any time. You must return to this emergency room immediately for any change in the pattern of pain, worsening pain, fever, loss of appetite, vomiting, or any pain located in the right lower part of the abdomen which is the appendix area. There is no tests other than an operation to determine appendicitis with 100% certainty and thus this is a very important. By: Ann Roberson PA Time: 08/19 6280 Comment: Patient told she can take ibuprofen and Tylenol for pain. I do not want to give her anything stronger because I want her to realize if her pain worsen she needs to return. She agrees. By: Ann Roberson PA Time: 08/19 5037 Comment: Patient's family member in the room and he heard the conversation of us discussing admission and the patient wanting to go home as she is feeling better. Again return if problems By: Ann Roberson PA Time: 08/19 5533 Comment: Spoke with my nurse about the patient and told her to reiterate the possibility of appendicitis. 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 New Medications: New Prescriptions ONDANSETRON ODT (ZOFRAN-ODT) 4 MG DISINTEGRATING TABLET Dissolve 1 tablet for mild to moderate nausea or vomiting or 2 tablets for severe nausea or vomiting orally under tongue q 6 hours prn SULFAMETHOXAZOLE-TRIMETHOPRIM (BACTRIM DS) 800-160 MG PER TABLET Take 1 tablet by mouth 2 (two) times a day for 7 days smx-tmp DS (BACTRIM) 800-160 mg tabs I have advised the patient to follow-up with: Sourav Jones, EXTRUDER OPERATOR HELPER [facility] [address] DIAGNOSIS: 1. Right flank pain 2. RLQ abdominal pain 3. Nausea 4. Acute cystitis without hematuria 5. Leukocytosis, unspecified type Disposition: Discharged Ann Roberson PA 08/19/21 1459 Ann Roberson PA 08/19/21 1519 Cosigned by Kev Mora II, MD at 08/19/2021 3:34 PM CDT documented in this encounter Plan of Treatment Scheduled Orders Name Type Priority Associated Diagnoses Orde r Schedule N. gonorrhoeae/C. trachomatis Amplification Urine Microbiology STAT STAT for 1 Occurrences starting 08/19/2021 until 08/19/2021 Trichomonas vaginalis PCR Urine Microbiology STAT STAT for 1 Occurrences starting 08/19/2021 until 08/19/2021 Urinalysis reflex to microscopic and culture Urine Microbiology STAT STAT for 1 Occurrences starting 08/19/2021 until 08/19/2021 documented as of this encounter Procedures Procedure Name Priority Date/Time Associated Diagnosis Comments US TRANSVAGINAL ED 08/19/2021 2:[address] ABDOMEN PELVIS WO CONTRAST ED 08/19/2021 12:01 PM CDT POCT HCG, URINE Routine 08/19/2021 11:32 AM CDT URINALYSIS AND REFLEX TO MICROSCOPIC AND CULTURE STAT 08/19/2021 11:25 AM CDT URINALYSIS, MICROSCOPIC ONLY STAT 08/19/2021 11:25 AM CDT EGFR STAT 08/19/2021 11:09 AM CDT DIFFERENTIAL AUTO STAT 08/19/2021 11: 09 AM CDT CBC WITH AUTO DIFFERENTIAL STAT 08/19/2021 11:09 AM CDT LIPASE STAT 08/19/2021 11:09 AM CDT COMPREHENSIVE METABOLIC PANEL STAT 08/19/2021 11:09 AM CDT documented in this encounter Results * US Transvaginal (08/19/2021 2:20 PM CDT) Anatomical Region Laterality Modality Pelvis N/A Ultrasound 08/19/2021 2:32 PM CDT Narrative 08/19/2021 2:34 PM CDT EXAM DESCRIPTION: ?? US TRANSVAGINAL REASON FOR STUDY: ?? Right lower abdominal pain. ??Right flank pain. TECHNIQUE: Grayscale ultrasound of the pelvic contents was performed with ?? transvaginal ??transducer. ?? COMPARISON: ?? CT abdomen and pelvis 08/19/2021 FINDINGS: UTERUS: ?? The uterus is anteverted. ??The uterus is ?? homogenous ??in echotexture and measures ?? 7.1 x 3.7 x 2.9 ??cm. ENDOMETRIUM: The endometrium measures ?? 0.4 cm ??in thickness. RIGHT OVARY: The right ovary measures ?? 3.8 x 2.6 x 1.8 ??cm. ?? There is documentation of color Doppler flow in the right ovary. The right ovary appears unremarkable. LEFT OVARY: The left ovary measures ?? 3.5 x 3.2 x 2.4 ??cm. ?? There is documentation of color Doppler flow in the left ovary. ??The left ovary appears unremarkable. PELVIC FLUID: ?? There is no evidence of free fluid in the pelvis. OTHER: ?? No other significant findings. IMPRESSION: ?? 1. ?? No acute sonographic abnormality. 2. ?? No free pelvic fluid. THIS IS AN ELECTRONICALLY VERIFIED FINAL REPORT 08/19/2021 2:34 PM - Electronically signed by ??Aamir Reyes M.D. LB: LB D: ??08/19/2021 2:34 PM T: ??08/19/2021 2:34 PM Report ID: [id number] Reading Location: ??[id number] Procedure Note Aamir Reyes MD - 08/19/2021 EXAM DESCRIPTION: US TRANSVAGINAL REASON FOR STUDY: Right lower abdominal pain. Right flank pain. TECHNIQUE: Grayscale ultrasound of the pelvic contents was performed with transvaginal transducer. COMPARISON: CT abdomen and pelvis 08/19/2021 FINDINGS: UTERUS: The uterus is anteverted. The uterus is homogenous in echotexture and measures 7.1 x 3.7 x 2.9 cm. ENDOMETRIUM: The endometrium measures 0.4 cm in thickness. RIGHT OVARY: The right ovary measures 3.8 x 2.6 x 1.8 cm. There is documentation of color Doppler flow in the right ovary. The right ovary appears unremarkable. LEFT OVARY: The left ovary measures 3.5 x 3.2 x 2.4 cm. There is documentation of color Doppler flow in the left ovary. The left ovaryappears unremarkable. PELVIC FLUID: There is no evidence of free fluid in the pelvis. OTHER: No other significant findings. IMPRESSION: 1. No acute sonographic abnormality. 2. No free pelvic fluid. THIS IS AN ELECTRONICALLY VERIFIED FINAL REPORT 08/19/2021 2:34 PM - Electronically signed by Aamir Reyes M.D. LB: LB Report ID: [id number] Reading Location: [id number] us Ann LEYVA IM[facility]ino US PROCEDURES Final Resul t * CT Abdomen Pelvis WO Contrast (08/19/2021 12:01 PM CDT) Anatomical Region Laterality Modality Body N/A Computed Tomogra phy 08/19/2021 12:1 8 PM CDT Narrative 08/19/2021 12:25 PM CDT EXAM DESCRIPTION: ?? CT ABDOMEN PELVIS WO CONTRAST REASON FOR STUDY: ?? Right-sided flank pain since last night and urinary urgency. TECHNIQUE: CT scan of the abdomen and pelvis performed without intravenous and ??without ??oral contrast using helical scanning technique. Reconstructed coronal and sagittal MPR images reviewed. All images stored on PACS. ?? Automated exposure control was used as a dose optimization technique for this examination. COMPARISON: ?? None available. FINDINGS: The sensitivity for detection of visceral lesions is diminished without the use of intravenous contrast. LOWER CHEST: ?? Lung bases are clear. ??No pleural effusion. ??Imaged portions of the heart are normal. ??No pericardial effusion. LIVER: ?? The liver is normal in size. ??No focal lesions are seen on this noncontrast examination. GALLBLADDER: ?? Unremarkable. BILE DUCTS: ?? No intrahepatic or extrahepatic ductal dilatation. SPLEEN: ?? Normal size. ??No focal lesions. PANCREAS: ?? Noncontrast appearance of the pancreas is unremarkable. ??No focal lesions, dilatation of the main pancreatic duct, or inflammatory changes noted. ADRENALS: ?? Normal. KIDNEYS/URINARY TRACT: ?? The kidneys are normal in size. ??No focal renal lesions are noted on this noncontrast examination. ??There is no right-sided hydronephrosis or nephrolithiasis. ??Punctate nonobstructing stone in the left kidney on image 51. ??No left-sided hydronephrosis. ?The ureters are normal in caliber. ??There are no ureteral stones. ??The urinary bladder is completely decompressed, limiting evaluation. GI: ?? The stomach has unremarkable appearance, accounting for decompressed status. ??The small bowel and colon are normal in caliber, demonstrating no signs of obstruction or inflammation. ??Normal appendix. PERITONEUM: ?? There is no free intraperitoneal fluid or gas. RETROPERITONEUM: ?? No lymphadenopathy or masses. REPRODUCTIVE: ?? The uterus and adnexa have normal appearance. VASCULATURE: ?? The abdominal aorta is normal in caliber. ??No significant vascular abnormality seen on this noncontrast study. MUSCULOSKELETAL: ?? Examination of bone windows demonstrates no suspicious lytic or blastic lesions. ??Schmorl nodes noted in the imaged portions of the spine. OTHER: ?? No other abnormality. IMPRESSION: ?? 1. ?? No acute findings identified to account for patient's reported right flank pain. 2. ?? Punctate nonobstructing stone in the upper pole of left kidney. 3. ?? Other findings as described above. THIS IS AN ELECTRONICALLY VERIFIED FINAL REPORT 08/19/2021 12:25 PM - Electronically signed by ??Jone Mercado M.D. RL: RL D: ??08/19/2021 12:25 PM T: ??08/19/2021 12:25 PM Report ID: [id number] Reading Location: ??[id number] Procedure Note Jone García MD - 08/19/2021 EXAM DESCRIPTION: CT ABDOMEN PELVIS WO CONTRAST REASON FOR STUDY: Right-sided flank pain since last night and urinary urgency. TECHNIQUE: CT scan of the abdomen and pelvis performed without intravenousand without oral contrast using helical scanning technique. Reconstructed coronal and sagittal MPR images reviewed. All images stored on PACS. Automated exposure control was used as a dose optimization technique forthis examination. COMPARISON: None available. FINDINGS: The sensitivity for detection of visceral lesions is diminished withoutthe use of intravenous contrast. LOWER CHEST: Lung bases are clear. No pleural effusion. Imagedportions of the heart are normal. No pericardial effusion. LIVER: The liver is normal in size. No focal lesions are seen on this noncontrast examination. GALLBLADDER: Unremarkable. BILE DUCTS: No intrahepatic or extrahepatic ductal dilatation. SPLEEN: Normal size. No focal lesions. PANCREAS: Noncontrast appearance of the pancreas is unremarkable. Nofocal lesions, dilatation of the main pancreatic duct, or inflammatory changes noted. ADRENALS: Normal. KIDNEYS/URINARY TRACT: The kidneys are normal in size. No focal renal lesions are noted on this noncontrast examination. There is noright-sided hydronephrosis or nephrolithiasis. Punctate nonobstructing stone in theleft kidney on image 51. No left-sided hydronephrosis. The ureters arenormal in caliber. There are no ureteral stones. The urinary bladder iscompletely decompressed, limiting evaluation. GI: The stomach has unremarkable appearance, accounting for decompressed status. The small bowel and colon are normal in caliber, demonstrating no signs of obstruction or inflammation. Normal appendix. PERITONEUM: There is no free intraperitoneal fluid or gas. RETROPERITONEUM: No lymphadenopathy or masses. REPRODUCTIVE: The uterus and adnexa have normal appearance. VASCULATURE: The abdominal aorta is normal in caliber. No significant vascular abnormality seen on this noncontrast study. MUSCULOSKELETAL: Examination of bone windows demonstrates no suspicious lytic or blastic lesions. Schmorl nodes noted in the imaged portions ofthe spine. OTHER: No other abnormality. IMPRESSION: 1. No acute findings identified to account for patient's reported right flank pain. 2. Punctate nonobstructing stone in the upper pole of left kidney. 3. Other findings as described above. THIS IS AN ELECTRONICALLY VERIFIED FINAL REPORT 08/19/2021 12:25 PM - Electronically signed by Jone Mercado M.D. RL: DAVID Report ID: [id number] Reading Location: [place] [address] PROCEDURES Final Resul t * POCT hCG, urine (08/19/2021 11:32 AM CDT) HCG, ur, POC Negative Lot Number [id number] QC Backgroud Clear Acceptable QC Control Line Acceptable Urine 08/19/2021 11:3 2 AM CDT Kev Mora II, MD POINT OF CARE TEST ORDERA BLES Final Result * (ABNORMAL) Urinalysis, microscopic only (08/19/2021 11:25 AM CDT) WBC, ur 6-10(A) 0 - 5 /HPF FRAN Comment:Testing performed by : [address] [address] RBC, ur 11-20(A) 0 - 2 /HPF FRAN Comment:Testing performed by : [address] [address] Epithelial cells, squamous, ur >50(A) 0 - 5 /HPF FRAN Comment: Suggestive of contamination. Consider recollection by clean catch. Testing performed by: [address] [address] Bacteria, ur 3+(A) FRAN Comment:Testing performed by : [address] [address] Mucous, ur Present(A) FRAN HAYS Comment:Testing performed by : [address] [address] Culture Reflex Comment Reflex conditions for urine culture (WBC >10) not met. FRAN Comment:Testing performed by : [address] [address] Urine 08/19/2021 11:2 5 AM CDT 08/19/2021 11:27 AM CDT us Kev Mora II, MD LAB URINE ORDERABLES Magda moreau Result FRAN [address] [facility] [place] [address] * (ABNORMAL) Urinalysis reflex to microscopic and culture Urine (08/19/2021 11:25 AM CDT) Color, ur Brissa Yellow FRAN Comment:Testing performed by : [address] [address] Clarity, ur Cloudy(A) Clear FRAN Comment:Testing performed by : [address] [address] Specific gravity, ur 1.036(H) 1.003 - 1.030 FRAN Comment:Testing performed by : [address] [address] pH, urine 5.0 FRAN Comment:Testing performed by : [address] [address] Protein, ur ql 1+(A) Negative FRAN Comment:Testing performed by : [address] [address] Glucose, ur ql Negative Negative FRAN Comment:Testing performed by : [address] [address] Ketones, ur Trace Negative FRAN Comment:Testing performed by : [facility], [address] [place] [address]., [address] Bilirubin, ur Negative Negative FRAN Comment:Testing performed by : [facility], [address] [place] [address], [place]., [address] Blood, ur Negative Negative FRAN Comment:Testing performed by : [address], [place]., [address] Urobilinogen, ur <2.0 <2.0 mg/dL FRAN Comment:Testing performed by : [address], [place]., [address] Nitrite, ur Negative Negative FRAN Comment:Testing performed by : [address] [address] [address] Leukocyte esterase, ur 1+(A) Negative FRAN HAYS Comment:Testing performed by : [address] [address] UA reflex comment Reflex to microscopic UA will be performed. FRAN Comment:Testing performed by : [facility], [address] [place] [address], [place]., [address] Urine 08/19/2021 11:2 5 AM CDT 08/19/2021 11:27 AM CDT Narrative FRAN - 08/19/2021 11:31 AM CDT ?? Urine pH is affected by diet, medications, systemic acid-base disturbances, and renal tubular function. ??pH may affect urinary stone formation. ??For example, urine pH below 6.0 may help reduce the tendency for calcium phosphate stones and pH greater than 6.0 may reduce the tendency for uric acid stone formation. Source: Conformity. Last revised 06-06-2017 us Kev Mora II, MD LAB MICROBIOLOGY - GENERA L ORDERABLES Final Result FRAN HAYS [address] [facility] [place] [address] * eGFR (08/19/2021 11:09 AM CDT) eGFR 129 mL/min/1. 73 m2 FRAN HAYS Comment: Interpretive [...] was last reviewed 2021. Testing performed by: [address] [address] Blood 08/19/2021 11:0 9 AM CDT 08/19/2021 11:12 AM CDT us Kev Mora II, MD LAB BLOOD ORDERABLES Magda l Result FRAN [address] [facility] [place] [address] * (ABNORMAL) Differential, auto (08/19/2021 11:09 AM CDT) Neutrophil abs 8.4(H) 1.7 - 6.5 K/cumm FRAN HAYS Comment:Testing performed by : [address] [address] Imm gran abs 0.1 0.0 - 0.1 K/cumm [facility] Comment:Testing performed by : [address] [address] Lymphocyte abs 3.5(H) 0.8 - 3.3 K/cumm [facility] Comment:Testing performed by : [address] [address] Monocyte abs 1.1(H) 0.2 - 0.8 K/cumm [facility] Comment:Testing performed by : [address] [address] Eosinophil abs 0.1 0.0 - 0.5 K/cumm [facility] Comment:Testing performed by : [address] [address] Basophil abs 0.1 0.0 - 0.1 K/cumm [facility] Comment:Testing performed by : [address] [address] Neutrophil pct 63.2 % [facility] Comment: Interpretive Data Percent cell count reference ranges are not reported, since discordance with absolute values may lead to misinterpretation of CBC data. Current Interpretive Data was last revised on 2017. Testing performed by: [address] [address] Imm gran pct 0.4 % [facility] Comment: Interpretive Data Percent cell count reference ranges are not reported, since discordance with absolute values may lead to misinterpretation of CBC data. Current Interpretive Data was last revised on 2017. Testing performed by: [address] [address] Lymphocyte pct 26.6 % [facility] Comment: Interpretive Data Percent cell count reference ranges are not reported, since discordance with absolute values may lead to misinterpretation of CBC data. Current Interpretive Data was last revised on 2017. Testing performed by: [address] [address] Monocyte pct 8.1 % [facility] Comment: Interpretive Data Percent cell count reference ranges are not reported, since discordance with absolute values may lead to misinterpretation of CBC data. Current Interpretive Data was last revised on 2017. Testing performed by: [address] [address] Eosinophil pct 1.1 % FRAN Comment: Interpretive Data Percent cell count reference ranges are not reported, since discordance with absolute values may lead to misinterpretation of CBC data. Current Interpretive Data was last revised on 2017. Testing performed by: [address] [address] Basophil pct 0.6 % FRAN Comment: Interpretive Data Percent cell count reference ranges are not reported, since discordance with absolute values may lead to misinterpretation of CBC data. Current Interpretive Data was last revised on 2017. Testing performed by: [address] [address] Blood 08/19/2021 11:0 9 AM CDT 08/19/2021 11:12 AM CDT Kev Mora II, MD LAB BLOOD ORDERABLES Magda l Result Performing Organization Address City/[facility] Co de Phone Number [address] [place] [address] * Lipase (08/19/2021 11:09 AM CDT) Pathologist [facility] Lipase 21 10 - 99 Units/L FRAN Comment:Testing performed by : [address] [address] Blood (Blood, Venous) 08/19/2021 11:09 AM CDT 08/19/2021 11:12 AM CDT Kev Mora II, MD LAB BLOOD ORDERABLES Magda l Result [address] [address] * Comprehensive metabolic panel (08/19/2021 11:09 AM CDT) Sodium 140 135 - 145 mmol/L FRAN Comment:Testing performed by : [address] [address] Potassium, pl 3.8 3.3 - 4.9 mmol/L [facility] Comment:Testing performed by : [address] [address] Chloride 104 97 - 110 mmol/L [facility] Comment:Testing performed by : [address], [place]., [address] CO2 23 22 - 32 mmol/L [facility] Comment:Testing performed by : [address], [place]., [address] Anion gap 13 2 - 15 mmol/L [facility] Comment:Testing performed by : [address], [place]., [address] BUN 10 8 - 25 mg/dL [facility] Comment:Testing performed by : [address], [place]., [address] Creatinine 0.60 0.60 - 1.10 mg/dL [facility] Comment:Testing performed by : [address] [address] Glucose 101 70 - 199 mg/dL [facility] Comment: Interpretive Data Fasting glucose >/= [...] was last revised 2017. Testing performed by: [address] [address] Calcium 9.4 8.5 - 10.3 mg/dL [facility] Comment:Testing performed by : [address] [address] Bilirubin, total 0.5 0.1 - 1.2 mg/dL [facility] Comment:Testing performed by : [address] [address] Protein, pl 7.7 6.5 - 8.5 g/dL [facility]AN [facility]YS Comment:Testing performed by : [address] [address] Albumin 4.5 3.5 - 5.0 g/dL [facility]YS Comment:Testing performed by : [address] [address] Alk phos 91 40 - 130 Units/L FRAN Comment:Testing performed by : [address] [address] ALT 15 7 - 45 Units/L FRAN Comment:Testing performed by : [address] [address] AST 19 10 - 45 Units/L FRAN Comment:Testing performed by : [address] [address] Blood 08/19/2021 11:0 9 AM CDT 08/19/2021 11:12 AM CDT us Kev Mora II, MD LAB BLOOD ORDERABLES Magda l Result [place] [address] [facility] [place] [address] * (ABNORMAL) CBC with auto differential (08/19/2021 11:09 AM CDT) [facility] WBC 13.2(H) 3.8 - 9.9 K/cumm FRAN HAYS Comment:Testing performed by : [address] [address] Hgb 13.2 11.9 - 15.5 g/dL [facility]AN [facility]YS Comment:Testing performed by : [address] [address] Hct 40.3 35.6 - 45.5 % [facility]AN [facility]YS Comment:Testing performed by : [address] [address] Plt 384 150 - 400 K/cumm [facility]AN [facility]YS Comment:Testing performed by : [address] [address] MPV 8.6(L) 9.1 - 12.3 fL [facility]AN HAYS Comment:Testing performed by : [address] [address] RBC 4.68 3.90 - 5.20 M/cumm [facility]AN [facility]YS Comment:Testing performed by : [address] [address] MCV 86.1 81.3 - 96.4 fL FRAN Comment:Testing performed by : [address] [address] MCH 28.2 27.1 - 33.3 pg [facility]AN HAYS Comment:Testing performed by : [address], [address] MCHC 32.8 32.3 - 35.7 g/dL FRAN Comment:Testing performed by : [address], [address] RDW CV 12.5 11.1 - 14.9 % FRAN Comment:Testing performed by : [address], [address] RDW SD 38.9 35.7 - 48.1 fL FRAN Comment:Testing performed by : [address], [address] NRBC abs 0.00 0.00 - 0.01 K/cumm [facility]AN HAYS Comment:Testing performed by : [address], [address] Blood (Blood, Venous) 08/19/2021 11:09 AM CDT 08/19/2021 11:12 AM CDT us Kev Mora II, MD LAB BLOOD ORDERABLES Magda moreau Result [place] [address] [facility] [place] [address] documented in this encounter Visit Diagnoses Diagnosis Right flank pain- Primary Abdominal pain, unspecified site RLQ abdominal pain Abdominal pain, right lower quadrant Nausea Nausea alone Acute cystitis without hematuria Leukocytosis, unspecified type documented in this encounter Administered Medications Inactive Administered Medications - up to 3 most recent administrations Medication Order MAR Action Action Date Dose Rate Site acetaminophen (TYLENOL) tablet 975 mg 975 mg (rounded from 1,000 mg), oral, Once, On 08/19/21 at 1248, For 1 dose Given 08/19/2021 1:03 PM CDT 975 mg cefTRIAXone (ROCEPHIN) 1,000 mg/10 mL in sterile water (premix) 1,000 mg 1,000 mg, intravenous, at 600 mL/hr, Administer over 1 Minutes, Once, On 08/19/21 at 1249, For 1 dose, Indications: Urinary Tract/Genitourinary InfectionIndications:Ur inary Tract/Genitourinary Infection Given 08/19/2021 1:04 PM CDT 1,000 mg 600 mL/hr Left Antecubital ketorolac (TORADOL) 30 mg/mL (1 mL) injection 30 mg 30 mg, intravenous, Once, On 08/19/21 at 1111, For 1 dose, Make sure UCG negative prior to administration For Adult IV push, administer over 15 seconds Given 08/19/2021 11:36 AM CDT 30 mg Left Antecubital morphine injection 4 mg 4 mg, intravenous, Administer over 4 Minutes, Once, On 08/19/21 at 1305, For 1 dose Given 08/19/2021 1:08 PM CDT 4 mg Left Antecubital ondansetron (ZOFRAN) injection 4 mg 4 mg, intravenous, Administer over 2 Minutes, Once, On 08/19/21 at 1141, For 1 dose, Indications: Nausea, VomitingIndications:[place] sea,Vomiting Given 08/19/2021 11:43 AM CDT 4 mg Left Antecubital documented in this encounter Active and Recently Administered Medications Times are shown in CDT. Scheduled Medication Order 08/17/2021 08/18/2021 08/19/2021 acetaminophen (TYLENOL) tablet 975 mg (COMPLETED) 975 mg (rounded from 1,000 mg), oral, Once, On 08/19/21 at 1248, For 1 dose 1303 (Given - Provid er: Ruth Thompson RN) cefTRIAXone (ROCEPHIN) 1,000 mg/10 mL in sterile water (premix) 1,000 mg (COMPLETED) 1,000 mg, intravenous, at 600 mL/hr, Administer over 1 Minutes, Once, On 08/19/21 at 1249, For 1 dose, Indications: Urinary Tract/Genitourinary Infection 1304 (Given - Provid er: Ruth Thompson, RN) ketorolac (TORADOL) 30 mg/mL (1 mL) injection 30 mg (COMPLETED) 30 mg, intravenous, Once, On 08/19/21 at 1111, For 1 dose, Make sure UCG negative prior to administration For Adult IV push, administer over 15 seconds 1136 (Given - Provid er: Ruth Thompson, RN) morphine injection 4 mg (COMPLETED) 4 mg, intravenous, Administer over 4 Minutes, Once, On 08/19/21 at 1305, For 1 dose 1308 (Given - Provid er: Ruth Thompson, RN) ondansetron (ZOFRAN) injection 4 mg (COMPLETED) 4 mg, intravenous, Administer over 2 Minutes, Once, On 08/19/21 at 1141, For 1 dose, Indications: Nausea, Vomiting 1143 (Given - Provid er: Ruth Thompson, KAYLEY) documented in this encounter Orders Medications Ordered That Baldomero ht Not Have Been Administered Count Last Ordered Date First Ordered Date fluconazole (DIFLUCAN) tablet 150 mg 1 07/26 IV Count Last Ordered Date First Orde red Date SALINE LOCK IV 1 08/19/2021 documented in this encounter Additional Health Concerns Infection Onset Date Last Indicated Resolved Time COVID: Recovered Comment:Added based on recent COVID infection. 06/23/2021 08/17/2021 10/21/2021 3:06 AM C DT documented as of this encounter Care Teams Engineering Consultant Relationship Specialty Start Date End Date Sourav Jones NP PCP - General Family Medicine 08/19/21 08/20/21 No, Physician 06/08/21 documented as of this encounter
--- OUTSIDE RECORDS SUMMARY | 2024-06-06 00:38 | XMS_ITS | Encounter Summary ---
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 She can stop taking antibiotics. If s/s persist, she should follow up with PCP. documented in this encounter Plan of Treatment Not on file documented as of this encounter Procedures Procedure Name Priority Date/Time Associated Diagnosis Comments URINE CULTURE Routine 08/19/2021 9:21 AM CDT Urinary urgency documented in this encounter Results * Urine culture Urine, clean voided (08/19/2021 9:21 AM CDT) Report Final Report: Less than 100,000 colonies/mL (clinically insignificant growth based on current clinical standards) FRAN CHIU Comment:Testing performed by : [facility], [address] [place]., [address] Organism (CLINICALLY INSIGNIFICANT GROWTH FRAN Urine, clean voided 08/19/2021 9:21 AM CDT 08/19/2021 4:44 PM CDT Narrative FRAN CHIU - 08/21/2021 7:05 AM CDT Testing performed by [facility] Microbiology Laboratory ([phone]) Sourav Jones NP LAB MICROBIOLOGY - GENERAL ORDERABLES Final Result FRAN [address] Department of Laboratories [place], [place] [id number] documented in this encounter Visit Diagnoses Diagnosis Urinary urgency Urgency of urination documented in this encounter Additional Health Concerns Infection Onset Date Last Indicated Resolved Time COVID: Recovered Comment:Added based on recent COVID infection. 06/23/2021 08/17/2021 10/21/2021 3:06 AM C DT documented as of this encounter Care Teams Salesperson [employer] Pet Supplies Relationship Specialty Start Date End Date Sourav Jones NP PCP - General Family Medicine 08/19/21 08/20/21 No, Physician 06/08/21 documented as of this encounter
--- OUTSIDE RECORDS SUMMARY | 2024-06-06 00:38 | XMS_ITS | Encounter Summary ---
Author Organization 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 tuberculosis). ??Patients with recent exposure to TB infected individuals exhibiting a negative T-SPOT.TB result should be considered for retesting within 6 weeks or if other relevant clinical symptoms indicate. ??Results from T-SPOT.TB testing must be used in conjunction with each individual's epidemiological history, current medical status, and results of other diagnostic evaluations. ??The T-SPOT.TB test is qualitative and results are reported as positive, borderline or negative, given that the test controls perform as expected. In line with the Centers for Disease Control and Prevention's 2010 recommendation to report quantitative measurements alongside the qualitative result, the laboratory provides spot counts for informational purposes only. ??The T-SPOT.TB test should not be interpreted as a quantitative test. T-SPOT.TB Panel A Spot Count 0 [facility] T-SPOT.TB Panel B Spot Count 0 [facility] T-SPOT.TB Negative Control Passed [facility] T-SPOT.TB Positive Control Passed [facility] Comment: Test Performed at: [facility] [employer] [address] [place] [address] ??[id number] ? DEYVI EDMONDS MD,PHD Blood specimen (specimen) 12/29/2020 1:20 PM CDT 12/29/2020 1:45 PM CDT us Notinfile Unknown LAB MICROBIOLOGY - GENERAL ORD ERABLES Final Result [facility] [address] Department of Laboratories [place], [place] [id number] documented in this encounter Visit Diagnoses Not on filedocumented in this encounter
--- OUTSIDE RECORDS SUMMARY | 2024-06-06 00:38 | XMS_ITS | Encounter Summary ---
Author Organization [facility] Healthcare Address [address] [place] [address] Care Team Providers Care Fender Repairer Name Role Phone Unavailable Primary Care Provider Unavailabl e Encounter Details Date Type Department Care Team (Latest Contact Info) Description 01/26/2016 12:24 PM CDT - 01/26/2016 1:01 PM CDT Hospital Encounter [facility] Amanda Horn MD [address] [place] [address] Fracture of right foot with routine healing Social History Tobacco Use Types Packs/Day Years Used Date Smoking Tobacco: Never Assessed Comments Unknown Sex and Gender Information Value Date Recorded Sex Assigned at Not on file Legal 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 Female 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 Gender Identity Female 06/06/2022 7:40 AM JUNIOR RECRUITER Sexual Orientation Not on file documented as of this encounter Last Filed Vital Signs Vital Sign Reading Time Taken Comments Blood Pressure 126/73 01/26/2016 12:26 PM CDT Pulse 86 01/26/2016 12:26 PM CDT Temperature 36.6 ??C (97.9 ??F) 01/26/2016 12:26 PM C DT Respiratory Rate - - Oxygen Saturation 99% 01/26/2016 12:26 PM CDT Inhaled Oxygen Concentration - - Weight - - Height - - Body Mass Index - - documented in this encounter Plan of Treatment Not on file documented as of this encounter Visit Diagnoses Diagnosis Fracture of right foot with routine healing documented in this encounter
--- OUTSIDE RECORDS SUMMARY | 2024-06-06 00:38 | XMS_ITS | Encounter Summary ---
Author Organization [facility] Healthcare Address [address] [place] [address] Care Team Providers Care [place]ch[place] Administrator Name Role Phone Unknown, Notinfile Primary Care Provider Unavail able No, Physician Unavailable Encounter Details Date Type Department Care Team (Late st Contact Info) Description 06/08/2021 8:35 PM COUNTER SALES REPRESENTATIVE Lab [address] [address] Cough; Myalgia Social History Tobacco Use Types Packs/Day Years Used Date Smoking Tobacco: Never Comments Unknown Sex and Gender Information Value Date Recorded Sex Assigned at Not on file Legal Sex Female 6:55 PM COUNTER SALES REPRESENTATIVE Gender Identity Female 06/06/2022 7:40 AM COUNTER SALES REPRESENTATIVE Sexual Orientation Not on file documented as of this encounter Plan of Treatment Not on file documented as of this encounter Procedures Procedure Name Priority Date/Time Associated Diagnosis Comments INFLUENZA A/B AND COVID-19 PCR Routine 06/08/2021 3:02 PM COUNTER SALES REPRESENTATIVE Cough Myalgia documented in this encounter Results * Influenza A/B and COVID-19 PCR Nasopharyngeal (06/08/2021 3:02 PM COUNTER SALES REPRESENTATIVE) COVID-19 RNA Not Detected [facility] Comment: Interpretive Data Synonyms for this test include: PCR and NAAT . ??Testing performed by the [facility] Molecular Infectious Disease Laboratory. The [...] 30, 2020. Influenza A RNA Not Detected [facility] Influenza B RNA Not Detected [facility] Comment: Interpretive Data Testing performed by the [facility] Molecular Infectious Disease Laboratory. This test is performed using the pieter Influenza A/B Assay. This is a real-time RT-PCR test for the qualitative detection of nucleic acid from Influenza A and Influenza B. This assay has been reviewed by the FDA for Emergency Use Authorization (EUA). The performance characteristics have been verified by the [facility] Laboratory. Results should be interpreted in combination with clinical context and a negative result does not rule out infection. ?? Interpretive data last revised 2020. First COVID-19 test? Unknown [facility] Employeed in healthcare? Yes [facility] status? Unknown [facility] Group care resident? No [facility] Hospitalized? No [facility] Is patient in ICU? No [facility] Symptomatic as defined by CDC? Yes [facility] Nasopharyngeal 06/08/2021 3: 02 PM COUNTER SALES REPRESENTATIVE 06/08/2021 11:07 PM COUNTER SALES REPRESENTATIVE Narrative [facility] - 06/09/2021 5:36 AM COUNTER SALES REPRESENTATIVE Patient is employed by/enrolled at:->[employer] Date of Symptom Onset->06/07/21 Reason for testing?->Symptomatic us Tanya Montaño MD LAB MICROBIOLOGY - GENERAL ORDERABLES Final Result [facility] Department [place] [address] documented in this encounter Visit Diagnoses Diagnosis Cough Myalgia Unspecified myalgia and myositis documented in this encounter Additional Health Concerns Infection Onset Date Last Indicated Resolved Time COVID: Suspected 06/08/2021 06/08/2021 06/09/2021 5:38 AM COUNTER SALES REPRESENTATIVE documented as of this encounter Care Teams [place] Administrator Relationship Specialty Start Date End Date Unknown, Notinfile PCP - General 06/08/21 08/18/21 No, Physician 06/08/21 documented as of this encounter
--- OUTSIDE RECORDS SUMMARY | 2024-06-06 00:38 | XMS_ITS | Encounter Summary ---
Author Organization [facility] Healthcare Address [address] [place] [address] Care Team Providers Care Survey Manager Name Role Phone No, Physician Primary Care Provider [phone] Reason for Visit * Reason Onset Date Comments COVID-19 EVALUATION 05/26/2021 Encounter Details Date Type Department Care Team (Late st Contact Info) Description 05/26/2021 Telephone [facility] [address] (Third Floor) [place] [address] Janie Timmons RN COVID-19 EVALUATION Social History Tobacco Use Types Packs/Day Years Used Date Smoking Tobacco: Never Assessed Comments Unknown Sex and Gender Information Value Date Recorded Sex Assigned at Not on file Legal Sex Female 6:55 PM COMPUTERIZED MACHINE FABRIC CUTTER Gender Identity Female 06/06/2022 7:40 AM COMPUTERIZED MACHINE FABRIC CUTTER Sexual Orientation Not on file documented as of this encounter Miscellaneous Notes * Telephone Encounter - Janie Timmons RN - 05/26/2021 9:38 AM CST Employee COVID-19 Screening 05/26/2021 Vaccine related call? No Email: [email or web address] Employee/Student ID# [id number] Are you an employee or student? Employee Employer: [facility] Employee Facility: [facility] Does your job primarily involve providing care for bone marrow transplant patients? 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 On-site Have you been tested for Covid-19 previously? Yes Have you ever had a positive COVID-19 swab or saliva test? No What was the date of your most recent negative test? 05/25/2021 What was the date of your most recent negative test? rapid tested at [facility] Have you been vaccinated against Covid-19? Yes Who provided the vaccine: Other (specify) Date of first vaccine dose: 06/17/2020 Date of second vaccine dose: 07/08/2020 Have you had a known, specific Covid exposure within the last 14 days? Yes Did the exposure take place at work / on campus? Yes Have you contacted your Occupational Health office or Student Health Services? Yes Was your exposure to a patient, coworker or visitor Coworker Date of exposure: 05/18/2021 Name of the COVID-19 positive person to whom you were exposed: Coworker Was the person to whom you were exposed wearing a mask/face covering? No Date of the COVID-19 test for the person to whom you were exposed: (No Data) Date of Patient Test Comment not sure when Test result of the person to whom you were exposed: Positive What PPE was employee wearing? None Description of exposure: not 15 minutes or more Employee Symptoms: Yes Date of employee symptom onset: 05/22/2021 Description of Symptoms: Cough;Sore Throat;Other;Fever Temperature: 99.6 Other Symptoms: headache, chills, congestion Did you have symptoms at work? Yes Date last worked: 05/25/2021 Do you currently live with, or have ongoing contact with, someone known or suspected to have Covid-19? No Exposure Risk (See Exposure Guide): No known or low risk exposure Assessment: Symptomatic, unknown exposure Plan: (A) Stay home and test for symptoms Testing Site Location: [facility] Patient referred by Occupational Health for Covid-19 testing. Script A0 (Stay home and test) for symptomatic, exposed HCW, symptomatic, unexposed Non-HCW or Vaccinated Non-HCW Given your symptoms, you should not come to work and will be referred for combined COVID/Influenza testing. If you have had a COVID infection in the past 4 months, you will be tested for influenza only. ??? Please go to the employee testing site at [facility] 05/26/21. ??? While you are awaiting testing and results, you must remain off work. ??? While waiting for results, home quarantine guidance still applies. You should isolate yourself at home, avoid contact with any household members as much as possible, and stay in your home withoutleaving except for medical care. If your symptoms worsen, please call back or call 911 - let your providers, ER or EMS know that you are being tested for COVID-19. ??? Once your results are back, you will receive further instruction from Occupational Health. Don't return to work until you hear from [place]. Occupational Health will notify you and your rehabilitation services manager when you can return to work. ??? Should your test result positive, OH will work with you to identify any close contacts you may have had at work. OH will then alert your work contacts directly; you do not have to. Your maintenance supervisor electrical should consult with [place] if they have any questions and before any communication with coworkers about a positive test. OH will help ensure that coworkers potentially at risk are notified and given appropriate advice without unnecessary disclosure of personal health information. ??? We will send you an email with self-quarantine instructions (see [facility] Guidance for At-Home Isolation: Employees). ??? You must follow any additional isolation or quarantine instructions provided to you from federal, state or local public health authorities. ??? You should let your maintenance supervisor electrical know that you will not be coming to work. Although the Call Center will email your maintenance supervisor electrical to confirm that you have been instructed not to come to work, it is still your responsibility to notify your maintenance supervisor electrical as you would for any other work absence. You should receive an email from the call center with these instructions. The email will come from [email or web address]; if you do not receive it, please check to see if your email gravity prospecting observer has automatically routed it to [place]. UTERIZED MACHINE FABRIC CUTTER documented in this encounter Plan of Treatment Not on file documented as of this encounter Results * Influenza A/B and COVID-19 PCR Nasopharyngeal (05/26/2021 10:54 AM COMPUTERIZED MACHINE FABRIC CUTTER) COVID-19 RNA Not Detected [facility] Comment: Interpretive Data Synonyms for this test include: PCR and NAAT . ??Testing performed by the [facility] Molecular Infectious Disease Laboratory. The [...] 30, 2020. Influenza A RNA Not Detected [facility] Influenza B RNA Not Detected [facility] Comment: Interpretive Data Testing performed by the [facility] Infectious Disease [facility]. This test is performed using the pieter Influenza A/B Assay. This is a real-time RT-PCR test for the qualitative detection of nucleic acid from Influenza A and Influenza B. This assay has been reviewed by the FDA for Emergency Use Authorization (EUA). The performance characteristics have been verified by the [facility]. Results should be interpreted in combination with clinical context and a negative result does not rule out infection. ?? Interpretive data last revised 2020. First COVID-19 test? No [facility] Employeed in healthcare? Yes [facility] status? No [facility] Group care resident? No [facility] Hospitalized? No [facility] Is patient in ICU? No [facility] Symptomatic as defined by CDC? Yes [facility] Nasopharyngeal 05/26/2021 10 :54 AM COMPUTERIZED MACHINE FABRIC CUTTER 05/27/2021 8:34 AM COMPUTERIZED MACHINE FABRIC CUTTER Narrative [facility] - 05/27/2021 6:57 PM COMPUTERIZED MACHINE FABRIC CUTTER Patient is employed by/enrolled at:->[employer] [facility] Date of Symptom Onset->05/22/21 us Tanya Montaño MD LAB MICROBIOLOGY - GENERAL ORDERABLES Final Result [facility] [place] [address] documented in this encounter Visit Diagnoses Diagnosis Cough- Primary Cough documented in this encounter Additional Health Concerns Infection Onset Date Last Indicated Resolved Time COVID: Suspected 05/26/2021 05/26/2021 05/27/2021 6:58 PM COMPUTERIZED MACHINE FABRIC CUTTER documented as of this encounter Care Teams Survey Manager Relationship Specialty Start Date End Date No, Physician PCP - General 05/25/21 06/07/21 documented as of this encounter
--- OUTSIDE RECORDS SUMMARY | 2024-06-06 00:38 | XMS_ITS | Encounter Summary ---
Author Organization [facility] Healthcare Address [address] [place] [address] Care Team Providers Care State Appellate Clerk Name Role Phone Unknown, Notinfile Primary Care Provider Unavail able No, Physician Unavailable Reason for Visit * Reason Onset Date Comments COVID-19 EVALUATION 06/08/2021 Encounter Details Date Type Department Care Team (Late st Contact Info) Description 06/08/2021 Telephone [facility] [address] (Third Floor) [place] [address] Jerilyn Hood, RN COVID-19 EVALUATION Social History Tobacco Use Types Packs/Day Years Used Date Smoking Tobacco: Never Comments Unknown Sex and Gender Information Value Date Recorded Sex Assigned at Not on file Legal Sex Female 6:55 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 Gender Identity Female 06/06/2022 7:40 AM LITHARGE MILL OPERATOR Sexual Orientation Not on file documented as of this encounter Miscellaneous Notes * Telephone Encounter - Jerilyn Hood, RN - 06/08/2021 2:06 PM CST Emily [email or web address] Does not have [facility] Medical Oncology floor- no BMT patients RN [facility] employee Business Continuity Management Director: Hoang [email or web address] Last day worked: 06/06/21 Boyfriend is COVID positive; tested on 06/04/21 SXS started: 06/07/21 SXS: Cough, sinus congestion, sneezing, headache, myalgia, chills Script A0 (Stay home and test) for symptomatic, exposed HCW, symptomatic, unexposed Non-HCW or Vaccinated Non-HCW Thank you for calling the Employee COVID-19 Call Center. This email contains the same information and recommendations discussed during your call. You should also forward this information to your supervisor advertising dispatch clerks as confirmation. Given your symptoms, you should not come to work and will be referred for combined COVID/Influenza testing. Or, if you have had a COVID infection in the past 3 months, you will be tested for influenza only. ??? If you are at work on site, you must leave work now. Notify your supervisor advertising dispatch clerks that you have been directed to do so by the Occupational Health Employee COVID- 19 Call Center. ??? Please go to the employee testing site as directed for your test. They should be expecting you;if there is any confusion, please call us at [phone]. ??? While you are awaiting testing and results, you must remain off work. You should isolate yourself at home, avoid contact with any household members as much as possible, and stay in your home without leaving except for medical care. ??? You should let your supervisor advertising dispatch clerks know that you will not be coming to work. Although we will emailyour supervisor advertising dispatch clerks to confirm this, it is still your responsibility to notify your supervisor advertising dispatch clerks as you would for any other work absence. We will notify you of your test results, which are usually available within 24- 48 hours. Your results will also post to your [facility] My Chart account ([email or web address]). Once yourresults are back, you will receive further instruction from Occupational Health. If you test positive for COVID-19, you must be cleared by Occupational Health (OH) before you can return to work. OH will notify you and your manager of purchasing when you can return to work. Should your test result positive, OH will work with you to identify any close contacts you may have had at work. OH willthen alert your work contacts directly; you do not have to. Your supervisor advertising dispatch clerks should consult with [place] if they have [...] a negative test result, you and your supervisor advertising dispatch clerks must decide when it is appropriate for you to return to work, using the guidance that will be send with your negative test notification. ARGE MILL OPERATOR ARGE MILL OPERATOR documented in this encounter Plan of Treatment Not on file documented as of this encounter Results * Influenza A/B and COVID-19 PCR Nasopharyngeal (06/08/2021 3:02 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 OPERATOR) Pathologist [facility] COVID-19 RNA Not Detected [facility] Comment: Interpretive Data Synonyms for this test include: PCR and NAAT . ??Testing performed by the [facility] Molecular Infectious Disease Laboratory. The 2019-Novel [...] 30, 2020. Influenza A RNA Not Detected [facility] Influenza B RNA Not Detected [facility] Comment: Interpretive Data Testing performed by the [facility] Molecular Infectious Disease Laboratory. This test is performed using the pieter Influenza A/B Assay. This is a real-time RT-PCR test for the qualitative detection of nucleic acid from Influenza A and Influenza B. This assay has been reviewed by the FDA for Emergency Use Authorization (EUA). The performance characteristics have been verified by the [facility] Laboratory. Results should be interpreted in combination with clinical context and a negative result does not rule out infection. ?? Interpretive data last revised 2020. First COVID-19 test? Unknown [facility] Employeed in healthcare? Yes [facility] status? Unknown [facility] Group care resident? No [facility] Hospitalized? No [facility] Is patient in ICU? No [facility] Symptomatic as defined by CDC? Yes [facility] Nasopharyngeal 06/08/2021 3: 02 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 OPERATOR 06/08/2021 11:07 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 OPERATOR Narrative [facility] - 06/09/2021 5:36 AM LITHARGE MILL OPERATOR Patient is employed by/enrolled at:->[facility] [employer] Date of Symptom Onset->06/07/21 Reason for testing?->Symptomatic Tanya Montaño MD LAB MICROBIOLOGY - GENERAL ORDERABLES Final Result [facility] Department [place] [address] documented in this encounter Visit Diagnoses Diagnosis Cough- Primary Myalgia Unspecified myalgia and myositis Cough Myalgia Unspecified myalgia and myositis documented in this encounter Additional Health Concerns Infection Onset Date Last Indicated Resolved Time COVID: Suspected 06/08/2021 06/08/2021 06/09/2021 5:38 AM LITHARGE MILL OPERATOR documented as of this encounter Care Teams State Appellate Clerk Relationship Specialty Start Date End Date Unknown, Notinfile PCP - General 06/08/21 08/18/21 No, Physician 06/08/21 documented as of this encounter
--- OUTSIDE RECORDS SUMMARY | 2024-06-06 00:38 | XMS_ITS | Encounter Summary ---
Author Organization [facility] Healthcare Address [address] [place] [address] Care Team Providers Care Sole Layer Hand Name Role Phone Unavailable Primary Care Provider Unavailabl e Encounter Details Date Type Department Care Team (Latest Contact Info) Description 09/20/2014 5:10 PM CDT Hospital Encounter [facility] OP David Santos MD [address] [place] [address] Radiological examination Social History Tobacco Use Types Packs/Day Years Used Date Smoking Tobacco: Never Assessed Comments Unknown Sex and Gender Information Value Date Recorded Sex Assigned at Not on file Legal Sex Female 6:55 PM GUARD CAPTAIN Gender Identity Female 06/06/2022 7:40 AM GUARD CAPTAIN Sexual Orientation Not on file documented as of this encounter Plan of Treatment Not on file documented as of this encounter Procedures Procedure Name Priority Date/Time Associated Diagnosis Comments XR FOOT RIGHT 3 OR MORE VIEWS Routine 09/20/2014 5:13 PM CDT documented in this encounter Results * XR Foot Right 3 or More Views (09/20/2014 5:13 PM CDT) Anatomical Region Laterality Modality Lower Extremities, Foot Right Radiogra phic Imaging 09/20/2014 5:13 PM CDT Impressions 09/21/2014 8:40 AM CDT ??No acute osseous abnormality of the right foot. THIS IS AN ELECTRONICALLY VERIFIED REPORT 09/21/2014 8:36 AM: ??Zaheer Berry M.D. Zaheer Berry M.D. CH:[place] 07:18 PM 08:13 AM [facility] [EOD] Narrative 09/21/2014 8:40 AM CDT EXAMINATION: ??Right foot series, three views HISTORY: ??Pain across the dorsal metatarsals. TECHNIQUE: ??Frontal, lateral, oblique views right foot. COMPARISON: ??09/13/2014. FINDINGS: ??No acute fracture or dislocation is seen. ??The joint spaces are preserved. ??There are no aggressive osseous lesions. Procedure Note Provider, MD Marcela - 10/11/2020 EXAMINATION: Right foot series, three views HISTORY: Pain across the dorsal metatarsals. TECHNIQUE: Frontal, lateral, oblique views right foot. COMPARISON: 09/13/2014. FINDINGS: No acute fracture or dislocation is seen. The joint spaces are preserved. There are no aggressive osseous lesions. IMPRESSION: No acute osseous abnormality of the right foot. THIS IS AN ELECTRONICALLY VERIFIED REPORT 09/21/2014 8:36 AM: Zaheer Berry M.D. Zaheer Berry M.D. CH:[place] 07:18 PM 08:13 AM [facility] [EOD] us David Santos MD IMG XR PROCEDURES Final Resul t documented in this encounter Visit Diagnoses Diagnosis Radiological examination documented in this encounter
--- OUTSIDE RECORDS SUMMARY | 2024-06-06 00:39 | XMS_ITS | Encounter Summary ---
Author Organization [facility] Healthcare Address [address] [place] [address] Care Team Providers Care Architectural Associate Name Role Phone Unavailable Primary Care Provider Unavailabl e Encounter Details Date Type Department Care Team (Late st Contact Info) Description 12/20/2013 2:25 PM CDT - 12/20/2013 3:49 PM CDT Hospital Encounter [facility] Jacky Turner MD [address] [address] Sprain of foot; Overexertion or strenuous or repetitive movements or loads Social History Tobacco Use Types Packs/Day Years Used Date Smoking Tobacco: Never Assessed Comments Unknown Sex and Gender Information Value Date Recorded Sex Assigned at Not on file Legal Sex Female 6:[address] REGISTRAR Gender Identity Female 06/06/2022 7:[address] REGISTRAR Sexual Orientation Not on file documented as of this encounter Last Filed Vital Signs Vital Sign Reading Time Taken Comments Blood Pressure 139/79 12/20/2013 2:28 PM CDT Pulse 86 12/20/2013 2:28 PM CDT Temperature 36.7 ??C (98.1 ??F) 12/20/2013 2:28 PM CD T Respiratory Rate - - Oxygen Saturation 99% 12/20/2013 2:28 PM CDT Inhaled Oxygen Concentration - - Weight 76.7 kg (169 lb) 12/20/2013 2:28 PM CDT Height 162.6 cm (5' 4 ) 12/20/2013 2:28 PM CDT Body Mass Index 29.01 12/20/2013 2:28 PM CDT Body Mass Index Percentile 94.90% 12/20/2013 2:2 8 PM CDT Growth Chart: [facility] (Girls, 2- 20 Years) documented in this encounter Plan of Treatment Not on file documented as of this encounter Procedures Procedure Name Priority Date/Time Associated Diagnosis Comments XR FOOT RIGHT 3 OR MORE VIEWS Routine 12/20/2013 12:00 AM CDT XR ANKLE RIGHT 3 OR MORE VIEWS Routine 12/20/2013 12:00 AM CDT documented in this encounter Results * XR Ankle Right 3 or More Views (12/20/2013 12:00 AM CDT) Anatomical Region Laterality Modality Lower Extremities, Ankle Right Radiogr aphic Imaging 12/20/2013 Impressions 12/20/2013 3:01 PM CDT ??Negative right ankle. THIS IS AN ELECTRONICALLY VERIFIED REPORT 12/20/2013 2:52 PM: ??Jacky Carmen M.D. Jacky Carmen M.D. DS:ds 02:52 PM 02:52 PM [facility] [EOD] Narrative 12/20/2013 3:01 PM CDT EXAMINATION: ??Three-view right ankle HISTORY: ??Injury, walking a lot COMPARISON: ??None FINDINGS: ??No fracture or dislocation. ??Normal alignment. ??No effusion. Procedure Note Provider, MD Marcela - 10/11/2020 EXAMINATION: Three-view right ankle HISTORY: Injury, walking a lot COMPARISON: None FINDINGS: No fracture or dislocation. Normal alignment. No effusion. IMPRESSION: Negative right ankle. THIS IS AN ELECTRONICALLY VERIFIED REPORT 12/20/2013 2:52 PM: Jacky Carmen M.D. Jacky Carmen M.D. DS:rosaline 02:52 PM 02:52 PM [facility] [EOD] Barbara LEYVA IMG XR PROCEDURES Final R esult * XR Foot Right 3 or More Views (12/20/2013 12:00 AM CDT) Anatomical Region Laterality Modality Lower Extremities, Foot Right [employer] [facility] 12/20/2013 Impressions 12/20/2013 3:01 PM CDT ??Negative right foot. THIS IS AN ELECTRONICALLY VERIFIED REPORT 12/20/2013 2:53 PM: ??Jacky Carmen M.D. Jacky Carmen M.D. DS:rosaline 02:53 PM 02:53 PM [facility] [EOD] Narrative 12/20/2013 3:01 PM CDT EXAMINATION: ??Three-view right foot HISTORY: ??Pain, walking, injury COMPARISON: ??None FINDINGS: ??No fracture or dislocation. ??Normal mineralization. Normal alignment. Procedure Note Provider, MD Marcela - 10/11/2020 EXAMINATION: Three-view right foot HISTORY: Pain, walking, injury COMPARISON: None FINDINGS: No fracture or dislocation. Normal mineralization. Normal alignment. IMPRESSION: Negative right foot. THIS IS AN ELECTRONICALLY VERIFIED REPORT 12/20/2013 2:53 PM: Jacky Carmen M.D. Jacky Carmen M.D. DS:ds 02:53 PM 02:53 PM [facility] [EOD] Barbara LEYVA IMG XR PROCEDURES Final R esult documented in this encounter Visit Diagnoses Diagnosis Sprain of foot Sprain and strain of unspecified site of foot Overexertion or strenuous or repetitive movements or loads documented in this encounter
--- OUTSIDE RECORDS SUMMARY | 2024-06-06 00:39 | XMS_ITS | Encounter Summary ---
Author Organization [facility] Healthcare Address [address] [place] [address] Care Team Providers Care Associate Producer Name Role Phone Unavailable Primary Care Provider Unavailabl e Encounter Details Date Type Department Care Team (Latest Contact Info) Description 02/18/2014 4:54 PM CDT Hospital Encounter [facility] OP David Santos MD [address] [place] [address] Pain in soft tissues of limb Social History Tobacco Use Types Packs/Day Years Used Date Smoking Tobacco: Never Assessed Comments Unknown Sex and Gender Information Value Date Recorded Sex Assigned at Not on file Legal Sex Female 6:55 PM POWERHOUSE TENDER Gender Identity Female 06/06/2022 7:40 AM POWERHOUSE TENDER Sexual Orientation Not on file documented as of this encounter Plan of Treatment Not on file documented as of this encounter Procedures Procedure Name Priority Date/Time Associated Diagnosis Comments XR FOOT RIGHT 3 OR MORE VIEWS Routine 02/18/2014 4:57 PM CDT documented in this encounter Results * XR Foot Right 3 or More Views (02/18/2014 4:57 PM CDT) Anatomical Region Laterality Modality Lower Extremities, Foot Right Radiogra phic Imaging 02/18/2014 4:57 PM CDT Impressions 02/18/2014 5:29 PM CDT ?? No fracture or other osseous abnormality in the right foot. THIS IS AN ELECTRONICALLY VERIFIED REPORT 02/18/2014 5:25 PM: ??Fly Moreira M.D. Fly Moreira M.D. CN:abad 05:25 PM 05:25 PM [facility] [EOD] Narrative 02/18/2014 5:29 PM CDT EXAMINATION: ??Right foot, 3 views HISTORY: ??Persistent right foot pain TECHNIQUE: ??Nonweightbearing frontal, lateral, and oblique views of the right foot are obtained COMPARISON: ??12/20/2013 FINDINGS: ?? There is no fracture or other osseous abnormality in the right foot. ??The joint spaces of the right foot are normal. ??There is no significant soft tissue swelling in the right foot. Procedure Note Provider, MD Marcela - 10/11/2020 EXAMINATION: Right foot, 3 views HISTORY: Persistent right foot pain TECHNIQUE: Nonweightbearing frontal, lateral, and oblique views of theright foot are obtained COMPARISON: 12/20/2013 FINDINGS: There is no fracture or other osseous abnormality in the right foot. The joint spaces of the right foot are normal. There is no significant soft tissue swelling in the right foot. IMPRESSION: No fracture or other osseous abnormality in the right foot. THIS IS AN ELECTRONICALLY VERIFIED REPORT 02/18/2014 5:25 PM: Fly Moreira M.D. Fly Moreira M.D. CN:[place] 05:25 PM 05:25 PM [facility] [EOD] us David Santos MD IMG XR PROCEDURES Final Resul t documented in this encounter Visit Diagnoses Diagnosis Pain in soft tissues of limb documented in this encounter
--- OUTSIDE RECORDS SUMMARY | 2024-06-06 00:39 | XMS_ITS | Encounter Summary ---
Author Organization [facility] Healthcare Address [address] [place] [address] Care Team Providers Care Calender Let Off Operator Name Role Phone Unavailable Primary Care Provider Unavailabl e Encounter Details Date Type Department Care Team (Late st Contact Info) Description 09/13/2014 7:38 PM CDT - 09/13/2014 10:18 PM CDT Hospital Encounter [facility] ER Rai Ferrera MD [address] [facility] [place] [address] Sprain of foot; Accident Social History Tobacco Use Types Packs/Day Years Used Date Smoking Tobacco: Never Assessed Comments Unknown Sex and Gender Information Value Date Recorded Sex Assigned at Not on file Legal Sex Female 6:55 PM SCIENTIFIC INVESTIGATOR Gender Identity Female 06/06/2022 7:40 AM SCIENTIFIC INVESTIGATOR Sexual Orientation Not on file documented as of this encounter Last Filed Vital Signs Vital Sign Reading Time Taken Comments Blood Pressure 137/83 09/13/2014 7:50 PM CDT Pulse 91 09/13/2014 7:50 PM CDT Temperature 36.9 ??C (98.4 ??F) 09/13/2014 7:50 PM CD T Respiratory Rate - - Oxygen Saturation 100% 09/13/2014 7:50 PM CDT Inhaled Oxygen Concentration - - Weight 77.1 kg (170 lb) 09/13/2014 7:50 PM CDT Height 162.6 cm (5' 4 ) 09/13/2014 7:50 PM CDT Body Mass Index 29.18 09/13/2014 7:50 PM CDT Body Mass Index Percentile 94.48% 09/13/2014 7:5 0 PM CDT Growth Chart: [facility] (Girls, 2- 20 Years) documented in this encounter Plan of Treatment Not on file documented as of this encounter Procedures Procedure Name Priority Date/Time Associated Diagnosis Comments XR FOOT RIGHT 3 OR MORE VIEWS Routine 09/13/2014 12:00 AM CDT documented in this encounter Results * XR Foot Right 3 or More Views (09/13/2014 12:00 AM CDT) Anatomical Region Laterality Modality Lower Extremities, Foot Right [facility] 09/13/2014 Impressions 09/13/2014 8:27 PM CDT ??No fracture or other osseous abnormality in the right foot. THIS IS AN ELECTRONICALLY VERIFIED REPORT 09/13/2014 8:24 PM: ??Fly Moreira M.D. Fly Moreira M.D. CN:abad 08:24 PM 08:[address] [facility] [EOD] Narrative 09/13/2014 8:27 PM CDT EXAMINATION: ??Right foot, 3 views HISTORY: ??Right mid foot pain TECHNIQUE: ??Nonweightbearing frontal, lateral, and oblique views of the right foot are obtained COMPARISON: ??02/18/2014 FINDINGS: ??There is no fracture or other osseous abnormality in the right foot. ??The joint spaces of the right foot are normal. ??There is no significant soft tissue swelling in the right foot. Procedure Note Provider, MD Marcela - 10/11/2020 EXAMINATION: Right foot, 3 views HISTORY: Right mid foot pain TECHNIQUE: Nonweightbearing frontal, lateral, and oblique views of theright foot are obtained COMPARISON: 02/18/2014 FINDINGS: There is no fracture or other osseous abnormality in the right foot. The joint spaces of the right foot are normal. There is nosignificant soft tissue swelling in the right foot. IMPRESSION: No fracture or other osseous abnormality in the right foot. THIS IS AN ELECTRONICALLY VERIFIED REPORT 09/13/2014 8:24 PM: Fly Moreira M.D. Fly Moreira M.D. CN:abad 08:24 PM 08:[address] [facility] [EOD] Luz Maria Harris NP IMG XR PROCEDURES Final Resul t documented in this encounter Visit Diagnoses Diagnosis Sprain of foot Sprain and strain of unspecified site of foot Accident Unspecified accident documented in this encounter
--- OUTSIDE RECORDS SUMMARY | 2024-06-06 00:54 | XMS_ITS ---
Author Organization [facility] [employer] Address [facility] [address] Care Team Providers Care C.O.D. Clerk Name Role Phone Rodrigo Richardson Unavailable [phone] Medications Medication SIG (Take, Route, Fr equency, Duration) Notes Start Date End Date Status lamoTRIgine 100 MG 1.5 tablet Orally On ce a day for 30 days Active Social History Sex Assigned At : Social History Observation Description Sex Assigned At Female Encounters Encounter Location Date Provider Diagnosis [facility] [employer] [facility] [address] [facility] [address] [address] 11/11/2023 Rodrigo Richardson Plan Of Treatment Medication Medication Name Sig Start Date Stop Date Notes lamoTRIgine 100 MG 1.5 tablet Orally On ce a day for 30 days Progress Notes * TERESA CERVANTESDOB:[birth year] (28 yo F)Acc No.[id number]:11/11/2023 Patient:?HELENLESLIETERESA :1995???Age:28 Y???Sex:Female Address:[address], [place], [address] * Refills? Refill lamoTRIgine Tablet, 100 MG, Orally, 45 Tablet, 1.5 tablet, Once a day, 30 days, Refills=0 * true * Date:? Generated for Printi ng/Faxing/eTransmitting on:?06/06/2024 12:54 AM GENERAL EDUCATION INSTRUCTOR
--- OUTSIDE RECORDS SUMMARY | 2024-06-06 00:54 | XMS_ITS ---
Author Organization [facility] [employer] Address [address] [facility] [address] [place] [address] Care Team Providers Care Acds Block 1 Operator Name Role Phone Rodrigo Richardson Unavailable [phone] REASON FOR VISIT Refills Medications Medication SIG (Take, Route, Fr equency, Duration) Notes Start Date End Date Status lamoTRIgine 100 MG 1.5 tablet Orally On ce a day for 30 days Active Social History Sex Assigned At : Social History Observation Description Sex Assigned At Female Encounters Encounter Location Date Provider Diagnosis [facility] [employer] [facility] [address] [facility] [address] [facility] [address] [place] [address] 11/11/2023 Rodrigo Richardson Major depressive disorder, recurrent, moderate F33.1 Assessments Encounter Date Diagnosis (ICD Code) Assessment Notes Treatment Notes Treatment Clinical Notes Section Notes 11/11/2023 Major depressive disorder, recurrent, moderate (ICD-10 - F33.1) Plan Of Treatment Medication Medication Name Sig Start Date Stop Date Notes lamoTRIgine 100 MG 1.5 tablet Orally On ce a day for 30 days Progress Notes * TERESA CERVANTESDOB:[birth year] (28 yo F)Acc No.[id number]:11/11/2023 Patient:?TERESA CERVANTES :1995???Age:28 Y???Sex:Female Address:[address], [place], [address] * Refills? Refill lamoTRIgine Tablet, 100 MG, Orally, 45 Tablet, 1.5 tablet, Once a day, 30 days, Refills=3 Subjective: * Chief Complaints: * ???Refills * Medical History:? * Surgical History:? * Hospitalization/Major Diagno stic Procedure:? * Medications:? Objective: * Vitals:? * Physical Examination:? Assessment: * Assessment: 1.?Major depressive disorder , recurrent, moderate - F33.1 (Primary)? Plan: * Treatment: * Procedure Codes:? * true * Date:? Generated for Feroz shelley/Lois/eTransmitting on:?06/06/2024 12:54 AM SEWER BUILDER
--- OUTSIDE RECORDS SUMMARY | 2024-06-06 00:54 | XMS_ITS ---
Author Organization [facility] [employer] Address [address] [address] Care Team Providers Care Iron Worker Apprentice Name Role Phone Richardson, Rodrigo Unavailable [phone] Social History Sex Assigned At : Social History Observation Description Sex Assigned At Female Encounters Encounter Location Date Provider Diagnosis [facility] [address] [address] 11/08/2023 Rodrigo Richardson Plan Of Treatment No Information Progress Notes * HELENLESLIE BLANDBENDOB:[birth year] (28 yo F)Acc No.[id number]:11/08/2023 Patient:?TERESA CERVANTES Provider:?JOSE KUNZ :1995???Age:28 Y???Sex:Female D ate:11/08/2023 Address[address], [facility] Subjective: * Chief Complaints: * ??? * Medical History:? Objective: * Vitals:? Assessment: Plan: * Treatment: * Procedure Codes:?NS NO SHOW * Billing Information: * Visit Code:? * Procedure Codes:? NS NO SHOW. * Sign off status: Completed true * Provider:?JOSE KUNZ Date:? Generated for Feroz shelley/Lois/eTlucianosmitting on:?06/06/2024 12:54 AM ADMISSIONS COUNSELOR
--- OUTSIDE RECORDS SUMMARY | 2024-06-06 05:19 | XMS_ITS | Encounter Summary ---
Author Organization [facility] Address [address] [facility] [place] [address] Care Team Providers Care Illuminating Engineer Name Role Phone Unavailable Primary Care Provider Unavailabl e Reason for Visit * Reason Comments Respiratory Fit Exam Encounter Details Date Type Department Care Team (Latest Contact Info) Description 01/21/2018 3:00 PM CDT Clinical Support [address] [address] Device fitting or adjustment Social History Tobacco Use Types Packs/Day Years Used Date Smoking Tobacco: Never Assessed Sex and Gender Information Value Date Recorded Sex Assigned at Female 06/17/2020 8:40 AM PATIENT FINANCIAL SERVICES SPECIALIST Gender Identity Female 06/17/2020 8:40 AM PATIENT FINANCIAL SERVICES SPECIALIST Sexual Orientation Choose not to disclose 2020 8:40 AM PATIENT FINANCIAL SERVICES SPECIALIST documented as of this encounter Plan of Treatment Not on file documented as of this encounter Procedures Procedure Name Priority Date/Time Associated Diagnosis Comments [place] RESPIRATORY FIT TEST Routine 01/21/2018 3:11 PM CDT Device fitting or adjustment documented in this encounter Results * [place] RESPIRATORY FIT TEST (01/21/2018 3:11 PM CDT) [...] questions at this time. Hawa David MD [place] - PROFESSIONAL SE RVICES documented in this encounter Visit Diagnoses Diagnosis Device fitting or adjustment- Primary Fitting and adjustment of unspecified device documented in this encounter
--- OUTSIDE RECORDS SUMMARY | 2024-06-06 05:19 | XMS_ITS | Encounter Summary ---
Author Organization [facility] Address [address] [facility] [place] [address] Care Team Providers Care Operations Systems Specialist Name Role Phone Unavailable Primary Care [...] CDT - 08/20/2019 11:22 PM CDT Emergency [facility] EM[facility]GENCY DEPARTMENT [address] [place] [id number] João Rodriguez MD [address] [place] [address] OF [place]ER[place]ENC[place] [address] Tachycardia; SOB (shortness of breath); Cough Discharge Disposition: Home or Self Care Social History Tobacco Use Types Packs/Day Years Used Date Smoking Tobacco: Never Smokeless Tobacco: Never Alcohol Use Standard Drinks/Week Comments Yes 0 (1 standard drink = 0.6 oz pur e alcohol) occ Sex and Gender Information Value Date Recorded Sex Assigned at Female 06/17/2020 8:40 AM WATER REUSE PROGRAM MANAGER Gender Identity Female 06/17/2020 8:40 AM WATER REUSE PROGRAM MANAGER Sexual Orientation Choose not to disclose 2020 8:40 AM WATER REUSE PROGRAM MANAGER documented as of this encounter Last [...] Care Everywhere. * Acute Cough (AfterCare(R) Instructions(ER/ED)) (Cypriot) * Shortness of Breath (AfterCare(R) Instructions(ER/ED)) (Cypriot) documented in this encounter Medications at Time [...] is intact. Dictated by Garrett Burch MD (radiology technologist). Dr. AURORA Castelan M.D. have personally reviewed [...] thorax isintact. Dictated by Garrett Burch MD (radiology technologist). Dr. AURORA Castelan M.D. have personally reviewed and interpreted this examination/study. This report was electronically signed by AURORA VASQUEZ M.D. on 08/21/2019 9:52 AM . Gale Keith CAPTION WRITER-LYRIC WRITER DIAGNOSTIC IMAGING ORDERABLES * EKG 12-LEAD (08/20/2019 8:52 PM CDT) Ventricular Rate 80 BPM [facility] MUSE Atrial Rate 80 BPM [facility] P-R Interval 134 ms [facility] M[facility] QRS Duration ms 84 ms [facility] MUSE Q-T Interval ms 372 ms [facility] MUSE QTC Calculation (Bezet) 429 ms [facility] MUSE Calculated P [place] 31 degrees SL MUSE Calculated R [place] 7 degrees [facility] MUSE Calculated T [place] 23 degrees [facility] MUSE Interpretation EKG NORMAL SINUS RHYTHM CANNOT RULE OUT ANTERIOR INFARCT , AGE UNDETERMINED ABNORMAL ECG NO PREVIOUS ECGS AVAILABLE Confirmed by Demond Herman ([id number]) on 08/22/2019 9:19:24 AM [facility] 08/20/2019 8:52 PM CDT 08/22/2019 9:19 AM CDT João Rodriguez MD ECG ORDERABLES Performing Organization Address City/[facility] Co de Phone Number [facility] * TROPONIN I (08/20/2019 8:17 PM CDT) Troponin I <0.010 <0.032 ng/mL 08/20/2019 8:42 PM CDT [facility] Blood BLOOD SPECIMEN / Unknown Venipuncture / Unknown 08/20/2019 8:17 PM CDT 08/20/2019 8:17 PM CDT João Rodriguez MD LAB - CHEMISTRY KAREN HIGHTOWER Performing Organization Address [facility] Co de Phone Number [address] [phone] * LACTIC ACID BLOOD (08/20/2019 8:17 PM CDT) Lactic Acid-Stat 1.2 0.5 - 2.0 mmol/L 08/20/2019 8:30 PM CDT [facility] Blood BLOOD SPECIMEN / Unknown Venipuncture / Unknown 08/20/2019 8:17 PM CDT 08/20/2019 8:17 PM CDT João Rodriguez MD LAB - CHEMISTRY KAREN HIGHTOWER Performing Organization Address City/[facility]/ZIP Co de Phone Number [place] [address] [place] [address], [facility] [phone] * SARS-COV-2 (COVID-19) IN HOUSE (08/20/2019 6:01 PM CDT) COVID-19 PCR Not detected Not detected, Invalid 08/21/2019 9:46 PM CDT [facility] Microbiology SPECIMEN FROM NASOPHARYNGEAL STRUCTURE / Unknown Collection / Unknown 08/20/2019 6:01 PM CDT 08/20/2019 6:08 PM CDT Narrative [facility] - 08/21/2019 9:46 PM CDT This Real Time RT-PCR assay was developed and its performance characteristics determined by [facility]. This test has been [...] is terminated or revoked sooner. Gale Parker CAPTION WRITER-LYRIC WRITER LAB - MICROBIOLOGY ORDERABLES [facility] [address] [place] [address], [facility] [phone] * RESPIRATORY PATHOGEN PANEL BY PCR (08/20/2019 6:01 PM CDT) Adenovirus PCR Not detected Not detected, Invalid, Indeterminate 08/21/2019 2:52 AM CDT [facility] Coronavirus PCR Not detected Not detected, Invalid, Indeterminate 08/21/2019 2:52 AM CDT [facility] Human Metapneumovirus PCR Not detected Not detected, Invalid, Indeterminate 08/21/2019 2:52 AM CDT [facility] Human Rhinovirus/Entero virus PCR Not detected Not detected, Invalid, Indeterminate 08/21/2019 2:52 AM CDT [facility] Influenza A PCR Not detected Not detected, Equivocal, Invalid, Indeterminate 08/21/2019 2:52 AM CDT [facility] Influenza B PCR Not detected Not detected, Invalid, Indeterminate 08/21/2019 2:52 AM CDT [facility] Parainfluenza Virus 1 PCR Not detected Not detected, Invalid, Indeterminate 08/21/2019 2:52 AM CDT [facility] Parainfluenza Virus 2 PCR Not detected Not detected, Invalid, Indeterminate 08/21/2019 2:52 AM CDT [facility] Parainfluenza Virus 3 PCR Not detected Not detected, Invalid, Indeterminate 08/21/2019 2:52 AM CDT [facility] Parainfluenza Virus 4 PCR Not detected Not detected, Invalid, Indeterminate 08/21/2019 2:52 AM CDT [facility] Respiratory Syncytial Virus PCR Not detected Not detected, Invalid, Indeterminate 08/21/2019 2:52 AM T [facility] Bordetella pertussis PCR Not detected Not detected, Invalid 08/21/2019 2:52 AM T [facility] Chlamydia pneumoniae PCR Not detected Not detected, Invalid, Indeterminate 08/21/2019 2:52 AM T [facility] Mycoplasma pneumoniae PCR Not detected Not detected, Invalid, Indeterminate 08/21/2019 2:52 AM T [facility] Microbiology SPECIMEN FROM NASOPHARYNGEAL STRUCTURE / Unknown Collection / Unknown 08/20/2019 6:01 PM CDT 08/20/2019 6:08 PM CDT Narrative [facility] - 08/21/2019 2:52 AM CDT This test is able to detect the following human coronaviruses: HKU1, NL63, 229E, and OC43. It will NOT detect 2019 Novel Coronavirus (2019-nCoV). If 2019-nCoV is suspected contact Infection Prevention for isolation and testing guidance. Gale Parker CAPTION WRITER-LYRIC WRITER LAB - MICROBIOLOGY ORDERABLES [facility] [address] [place] [address], [facility] [phone] * INFLUENZA A+B PCR (08/20/2019 6:01 PM CDT) Pathologist [facility] Influenza A Rapid NICK Negative Negative 08/20/2019 6:37 PM CDT [facility] Influenza B INCK Rapid Negative Negative 08/20/2019 6:37 PM CDT [facility] Microbiology SPECIMEN FROM NASOPHARYNGEAL STRUCTURE / Unknown Collection / Unknown 08/20/2019 6:01 PM CDT 08/20/2019 6:08 PM CDT Narrative [facility] - 08/20/2019 6:37 PM CDT Assay [...] treatment, or patient management decisions. Gale Parker CAPTION WRITER-LYRIC WRITER LAB - MICROBIOLOGY ORDERABLES [address] [address], [facility] [phone] * PROCALCITONIN LEVEL (08/20/2019 6:00 PM CDT) [facility] PROCALCITONIN <0.02 <=0.10 ng/mL 08/20/2019 6:57 PM CDT [facility] Blood BLOOD SPECIMEN / Unknown Venipuncture / Unknown 08/20/2019 6:00 PM CDT 08/20/2019 6:17 PM CDT Narrative [facility] - 08/20/2019 6:57 PM CDT The [...] Change in Procalcitonin Calculator is available at [email or web address] ?? If clinical picture has not improved and PCT remains high, reevaluate and consider treatment failure or other causes. Gale BAEZA LAB - CHEMISTRY OR DERABLES Performing Organization Address [facility]/ZIP Co de Phone Number [address] [phone] * TROPONIN I (08/20/2019 6:00 PM CDT) [facility] Troponin I <0.010 <0.032 ng/mL 08/20/2019 6:29 PM CDT [facility] Blood BLOOD SPECIMEN / Unknown Venipuncture / Unknown 08/20/2019 6:00 PM CDT 08/20/2019 6:05 PM CDT João Rodriguez MD LAB - CHEMISTRY KAREN HIGHTOWER Performing Organization Address [facility]/[place] [address], [facility] [phone] * PT-INR [facility] (08/20/2019 6:00 PM CDT) PT 13.6 12.1 - 14.8 Seconds 08/20/2019 6:31 PM CDT [facility] INR 1.1 See Comment 08/20/2019 6:31 PM T [facility] Comment:The suggested therap eutic range for standard coumadin (warfarin) therapy is an INR of 2.0-3.0. For high-risk patients (Mechanical Mitral Valve Prosthesis, etc.), the suggested prophylactic therapeutic range is an INR of 2.5-3.5. Blood BLOOD SPECIMEN / Unknown Venipuncture / Unknown 08/20/2019 6:00 PM CDT 08/20/2019 6:17 PM CDT João Rodriguez MD LAB - COAGULATION OR DERABLES Performing Organization Address [facility]/ZIP Co de Phone Number [address] [phone] * (ABNORMAL) LACTIC ACID BLOOD (08/20/2019 6:00 PM CDT) [facility] Lactic Acid-Stat 3.1(HH) 0.5 - 2.0 mmol/L 08/20/2019 6:22 PM T [facility] Blood BLOOD SPECIMEN / Unknown Venipuncture / Unknown 08/20/2019 6:00 PM CDT 08/20/2019 6:05 PM CDT João Rodriguez MD LAB - CHEMISTRY ORDE RABLES Performing Organization Address [facility]/ZIP Co de Phone Number [address] [phone] * (ABNORMAL) COMPREHENSIVE METABOLIC PANEL (08/20/2019 6:00 PM CDT) Pathologist [facility] BUN 8 7 - 26 mg/dL 08/20/2019 6:23 PM T [facility] Creatinine 0.7 0.6 - 1.2 mg/dL 08/20/2019 6:23 PM CDT [facility] Sodium 140 136 - 145 mmol/L 08/20/2019 6:23 PM T [facility] Potassium 3.8 3.5 - 4.5 mmol/L 08/20/2019 6:23 PM [facility] Chloride 108(H) 98 - 107 mmol/L 08/20/2019 6:23 PM [facility] CO2 19(L) 22 - 29 mmol/L 08/20/2019 6:23 PM [facility] Glucose 132(H) 70 - 115 mg/dL 08/20/2019 6:23 PM [facility] Calcium 9.4 8.4 - 10.2 mg/dL 08/20/2019 6:23 PM [facility] Protein Total 7.9 6.0 - 8.3 g/dL 08/20/2019 6:23 PM [facility] Albumin 3.8 3.4 - 5.0 g/dL 08/20/2019 6:23 PM [facility] Bilirubin Total 0.3 0.2 - 1.2 mg/dL 08/20/2019 6:23 PM [facility] Alkaline Phosphatase 101 40 - 150 Units/L 08/20/2019 6:23 PM [facility] ALT 16 0 - 55 Units/L 08/20/2019 6:23 PM [facility] AST 13 5 - 34 Units/L 08/20/2019 6:23 PM [facility] Anion Gap 17 8 - 18 08/20/2019 6:23 PM [facility] BUN/Creatinine Ratio 11 7 - 23 08/20/2019 6:23 PM [facility] Osmolality Calculated 290 270 - 300 mOsm/kg 08/20/2019 6:23 PM [facility] Albumin/Globulin Ratio 0.9(L) 1.1 - 2.3 08/20/2019 6:23 PM [facility] eGFR >60 >60 mL/min/1.7 3 m2 08/20/2019 6:23 PM [facility] Blood BLOOD SPECIMEN / Unknown Venipuncture / Unknown 08/20/2019 6:00 PM CDT 08/20/2019 6:05 PM [facility] João Rodriguez MD LAB - CHEMISTRY KAREN Barragan Organization Address City/State/ZIP Co de Phone Number [facility] [address] [phone] * (ABNORMAL) CBC W AUTO DIFFERENTIAL (08/20/2019 6:00 PM T) WBC 15.9(H) 3.5 - 10.5 10? 3 /uL 08/20/2019 6:07 PM [facility] RBC 4.85 3.90 - 5.00 10? 6 /uL 08/20/2019 6:07 PM [facility] Hemoglobin 11.8(L) 12.0 - 15.5 g/dL 08/20/2019 6:07 PM [facility] Hematocrit 38.2 35.0 - 45.0 % 08/20/2019 6:07 PM [facility] MCV 78.8(L) 81.0 - 97.0 fL 08/20/2019 6:07 PM [facility] MCH 24.3(L) 28.0 - 34.0 pg 08/20/2019 6:07 PM [facility] MCHC 30.9(L) 32.0 - 36.0 g/dL 08/20/2019 6:07 PM [facility] Platelet Count 492(H) 150 - 400 10? 3 /uL 08/20/2019 6:07 PM [facility] RDW-SD 42.3 36.0 - 50.0 fL 08/20/2019 6:07 PM [facility] RDW-CV 14.8 11.2 - 14.8 % 08/20/2019 6:07 PM [facility] MPV 8.9(L) 9.3 - 12.8 fL 08/20/2019 6:07 PM [facility] nRBC Absolute 0.00 0 10? 3 /uL 08/20/2019 6:07 PM [facility] nRBC Auto 0.0 0 /100 WBC 08/20/2019 6:07 PM [facility] Neutrophils % 79.3(H) 35.0 - 70.0 % 08/20/2019 6:07 PM [facility] Lymphocytes % 15.2(L) 19.7 - 55.1 % 08/20/2019 6:07 PM [facility] Monocytes % 4.7 3.0 - 15.0 % 08/20/2019 6:07 PM [facility] Eosinophils % 0.0 0.0 - 6.0 % 08/20/2019 6:07 PM T [facility] Basophil % 0.4 0.0 - 1.5 % 08/20/2019 6:07 PM T [facility] Neutrophils Absolute 12.6(H) 1.6 - 7.0 10? 3 /uL 08/20/2019 6:07 PM T [facility] Lymphocyte Absolute 2.4 0.8 - 2.9 10? 3 /uL 08/20/2019 6:07 PM T [facility] Monocytes Absolute 0.75(H) 0.14 - 0.66 10? 3 /uL 08/20/2019 6:07 PM [facility] Eosinophils Absolute 0.00 0.00 - 0.45 10? 3 /uL 08/20/2019 6:07 PM CDT [facility] Basophils Absolute 0.06 0.00 - 0.06 10? 3 /uL 08/20/2019 6:07 PM [facility] Immature Granulocytes % 0.4 0.0 - 1.0 % 08/20/2019 6:07 PM [facility] Blood BLOOD SPECIMEN / Unknown Venipuncture / Unknown 08/20/2019 6:00 PM CDT 08/20/2019 6:05 PM CDT João Rodriguez MD LAB - HEMATOLOGY ORD ERABLES Performing Organization Address [facility]/State/[facility] Co de Phone Number [facility] [address] [place] [address] * CULTURE BLOOD (08/20/2019 5:47 PM CDT) Culture No growth day 5 ABRAHAM 08/25/2019 11:30 PM CDT [facility] Blood PERIPHERAL BLOOD / Unknown Venipuncture / Unknown 08/20/2019 5:47 PM CDT 08/20/2019 6:04 PM CDT João Rodriguez MD LAB - MICROBIOLOGY O RDERABLES Performing Organization Address City/[facility]/ZIP Co de Phone Number [facility] [address] [place] [address], [facility] [phone] * CULTURE BLOOD (08/20/2019 5:46 PM CDT) Culture No growth day 5 ABRAHAM 08/25/2019 11:30 PM CDT [facility] Blood PERIPHERAL BLOOD / Unknown Venipuncture / Unknown 08/20/2019 5:46 PM CDT 08/20/2019 6:04 PM CDT João Rodriguez MD LAB - MICROBIOLOGY O RDERABLES Performing Organization Address [facility] Co de Phone Number [facility] [address] [place] [address], [facility] [phone] * HCG URINE QUAL POCT NOTIFICATION (08/20/2019 5:42 PM CDT) Comment Notification Label Only - See Separate Report 08/20/2019 7:00 PM CDT [facility] Urine URINE / Unknown 08/20/2019 5 :42 PM CDT 08/20/2019 5:57 PM CDT João Rodriguez MD LAB - URINALYSIS ORD ERABLES Performing Organization Address [facility] Co de Phone Number [facility] [address] [place] [address], [facility] [phone] documented in this encounter Visit Diagnoses Diagnosis [...] 2230 ($ Given - Prov ider: Fiordaliza Raymnod RN - Comment: given in tent scanner [...]
--- OUTSIDE RECORDS SUMMARY | 2024-06-06 05:19 | XMS_ITS | Encounter Summary ---
Author Organization [facility] Address [address] [facility] [place] [address] Care Team Providers Care Market Consultant Name Role Phone David Santos MD Primary Care Provider Unavail able Reason for Visit * Reason Onset Date Comments COVID-19 IMMUNIZATION/INJECTION 07/08/2020 Encounter Details Date Type Department Care Team (Latest Contact Info) Description 07/08/2020 10:30 AM CELLARS SUPERVISOR Clinical Support [facility] COVID Vaccination 2nd Floor [address] [place] [address] Need for vaccination Social History Tobacco Use Types Packs/Day Years Used Date Smoking Tobacco: Never Smokeless Tobacco: Never Alcohol Use Standard Drinks/Week Comments Yes 0 (1 standard drink = 0.6 oz pur e alcohol) occ Sex and Gender Information Value Date Recorded Sex Assigned at Female 06/17/2020 8:40 AM CELLARS SUPERVISOR Gender Identity Female 06/17/2020 8:40 AM CELLARS SUPERVISOR Sexual Orientation Choose not to disclose 2020 8:40 AM CELLARS SUPERVISOR documented as of this encounter Patient Instructions * Patient Instructions* Karly Capps, EMT-P - 07/08/2020 10:20 AM CELLARS SUPERVISOR Images from the original note were not included. Vaccine recipients are encouraged to enroll in the CDC V-SAFE program for post vaccination monitoring. Sign up with your smartphone's browser at [employer]cdc.gov or Aim your smartphone's camera at this code. ARS SUPERVISOR documented in this encounter Progress Notes * Karly Capps EMT-P - 07/08/2020 10:20 AM CST COVID screening checklist was reviewed with the patient. The Information sheet was given prior to administration. Injection site aseptically cleansed and injection given per Immunization(s) protocol.See Imm/Injections activity for details. ARS SUPERVISOR documented in this encounter Plan of Treatment Not on file documented as of this encounter Visit Diagnoses Diagnosis Need for vaccination- Primary Need for prophylactic vaccination and inoculation against unspecified single disease documented in this encounter Care Teams Market Consultant Relationship Specialty Start Date End Date David Santos MD PCP - General 08/22/19 09/24/21 documented as of this encounter
--- OUTSIDE RECORDS SUMMARY | 2024-06-06 05:19 | XMS_ITS | Encounter Summary ---
Author Organization [facility] Address [address] [facility] [place] [address] Care Team Providers Care Icing And Glaze Maker Name Role Phone David Santos MD Primary Care Provider Unavail able Reason for Visit * Reason Comments Lower Extremity Problem pt stated last w [place]-[facility] palms she fell down wooden stairs onto concrete, landed on left foot, left ankle, left knee, left hip. pt went to OSH received xrays to left ankle and left hip, dx sprain. increased pain to area. Encounter Details Date Type Department Care Team (Late st Contact Info) Description 09/26/2020 10:13 PM CDT - 09/27/2020 6:17 AM T Emergency [facility] EMERGENCY [facility]PARTMENT [address] [place] [address] Fall, initial encounter Discharge Disposition: Left Against Medical Advice/Discontinued Care Social History Tobacco Use Types Packs/Day Years Used Date Smoking Tobacco: Never Smokeless Tobacco: Never Alcohol Use Standard Drinks/Week Comments Yes 0 (1 standard drink = 0.6 oz pur e alcohol) occ Sex and Gender Information Value Date Recorded Sex Assigned at Female 06/17/2020 8:40 AM WHEELCHAIR RENTAL CLERK Gender Identity Female 06/17/2020 8:40 AM WHEELCHAIR RENTAL CLERK Sexual Orientation Choose not to disclose 2020 8:40 AM WHEELCHAIR RENTAL CLERK documented as of this encounter Last Filed [...] pain. Pt reports she was seen at [facility]. She was given a foot x-ray and [...] (Due) documented in this encounter Care Teams Icing And Glaze Maker Relationship Specialty Start Date End Date David Santos MD PCP - General 08/22/19 09/24/21 documented as of this encounter
--- OUTSIDE RECORDS SUMMARY | 2024-06-06 05:19 | XMS_ITS | Clinical Summary ---
Author Organization [facility] Address [address] [place] [address] Care Team Providers Care Gluer Machine Operator Name Role Phone Siria Dunham MD Primary Care Provider Source Comments [facility],non-owned Affiliates and Associated Physician Practices is amultiple site organization consisting of ambulatory clinics and hospital sitesin [place], [place], [place] and [place]. This disclosure is being madepursuant to the Care Everywhere program and may not contain all information available regarding this patient. Last updated 18.[facility] Allergies Active Allergy Reactions Criticality Noted Date [...] Active Immunizations Name Administration Dates Next Due Cov23andMe primary monoval ent 12+ yr 0.3mL Purple [...] Sex Assigned at Female 06/17/2020 8:40 AM TACKING STITCH REMOVER Gender Identity Female 06/17/2020 8:40 AM TACKING STITCH REMOVER Sexual Orientation Choose not to disclose 2020 8:40 AM TACKING STITCH REMOVER Last Filed Vital Signs Vital Sign Reading [...] age to complete this topic Care Teams Gluer Machine Operator Relationship Specialty Start Date End Date Siria Duhnam MD [address] [place] [address] PCP - General 09/25/21
--- OUTSIDE RECORDS SUMMARY | 2024-06-06 05:19 | XMS_ITS | Encounter Summary ---
Author Organization [facility] Address [address] [facility] [place] [address] Care Team Providers Care Gas System Operator Name Role Phone David Santos MD Primary Care Provider Unavail able Reason for Visit * Reason Onset Date Comments COVID-19 IMMUNIZATION/INJECTION 06/17/2020 Encounter Details Date Type Department Care Team (Latest Contact Info) Description 06/17/2020 8:30 AM TARGET NETWORK ANALYST Clinical Support [facility] COVID Vaccination 2nd Floor [address] [place] [address] Need for vaccination Social History Tobacco Use Types Packs/Day Years Used Date Smoking Tobacco: Never Smokeless Tobacco: Never Alcohol Use Standard Drinks/Week Comments Yes 0 (1 standard drink = 0.6 oz pur e alcohol) occ Sex and Gender Information Value Date Recorded Sex Assigned at Female 06/17/2020 8:40 AM TARGET NETWORK ANALYST Gender Identity Female 06/17/2020 8:40 AM TARGET NETWORK ANALYST Sexual Orientation Choose not to disclose 2020 8:40 AM TARGET NETWORK ANALYST documented as of this encounter Patient Instructions * Patient Instructions* Shefali Gilbert RN - 06/17/2020 8:35 AM TARGET NETWORK ANALYST Images from the original note were not included. Vaccine recipients are encouraged to enroll in the CDC V-SAFE program for post vaccination monitoring. Sign up with your smartphone's browser at [employer].cdc.gov or Aim your smartphone's camera at this code. ET NETWORK ANALYST documented in this encounter Progress Notes * Shefali Gilbert RN - 06/17/2020 8:35 AM CST COVID screening checklist was reviewed with the patient. The Information sheet was given prior to administration. Injection site aseptically cleansed and injection given per Immunization(s) protocol.See Imm/Injections activity for details. ET NETWORK ANALYST documented in this encounter Plan of Treatment Not on file documented as of this encounter Visit Diagnoses Diagnosis Need for vaccination- Primary Need for prophylactic vaccination and inoculation against unspecified single disease documented in this encounter Care Teams Gas System Operator Relationship Specialty Start Date End Date David Santos MD PCP - General 08/22/19 09/24/21 documented as of this encounter
--- OUTSIDE RECORDS SUMMARY | 2024-06-06 05:19 | XMS_ITS | Referral Summary ---
Author Organization [facility] Address [address] [place] [address] Care Team Providers Care Pss Delivery Professional Name Role Phone Siria Dunham MD Primary Care Provider Source Comments [facility],non-owned Affiliates and Associated Physician Practices is amultiple site organization consisting of ambulatory clinics and hospital sitesin [place], [place], [place] and [place]. This disclosure is being madepursuant to the Care Everywhere program and may not contain all information available regarding this patient. Last updated 18.[facility] Allergies Active Allergy Reactions Criticality Noted Date [...] Immunizations Name Administration Dates Next Due [employer] primary monoval ent 12+ yr 0.3mL Purple [...] Sex Assigned at Female 06/17/2020 8:40 AM NEUROLOGY TECH Gender Identity Female 06/17/2020 8:40 AM NEUROLOGY TECH Sexual Orientation Choose not to disclose 2020 8:40 AM NEUROLOGY TECH Last Filed Vital Signs Vital Sign Reading [...] of Treatment Not on file Care Teams Pss Delivery Professional Relationship Specialty Start Date End Date Siria Dunham MD [address] [place] [id number] PCP - General 09/25/21
--- OUTSIDE RECORDS SUMMARY | 2024-06-06 05:19 | XMS_ITS | Encounter Summary ---
Author Organization [facility] Address [address] [place] [address] Care Team Providers Care Spaghetti Press Helper Name Role Phone Unavailable Primary Care Provider Unavailabl e Reason for Visit * Reason Onset Date Comments Follow-up 08/08/2019 Encounter Details Date Type Department Care Team (Late st Contact Info) Description 08/08/2019 Telephone [facility] [address] [place] [address] Mariola Bennett, QUILLER RUNNER-LINING SETTER [address] [place] [address] Follow-up Social History Tobacco Use Types Packs/Day Years Used Date Smoking Tobacco: Never Smokeless Tobacco: Never Sex and Gender Information Value Date Recorded Sex Assigned at Female 06/17/2020 8:40 AM ASSET PROTECTION OFFICER Gender Identity Female 06/17/2020 8:40 AM ASSET PROTECTION OFFICER Sexual Orientation Choose not to disclose 2020 8:40 AM ASSET PROTECTION OFFICER documented as of this encounter Plan of Treatment Not on file documented as of this encounter Visit Diagnoses Not on filedocumented in this encounter
--- OUTSIDE RECORDS SUMMARY | 2024-06-06 05:19 | XMS_ITS | Patient Health Summary ---
Author Organization [facility] Address [address] [place] [address] Care Team Providers Care Hr Generalist Name Role Phone Siria Dunham MD Primary Care Provider [phone] Note from [facility],non-owned Affiliates and Associated Physician Practices is amultiple site organization consisting of ambulatory clinics and hospital sitesin [place], [place], [place] and [place]. This disclosure is being madepursuant to the Care Everywhere program and may not contain all information available regarding this patient. Last updated 18.[facility] Allergies * Nitrofurantoin(Itching) Medications [...] Sex Assigned at Female 06/17/2020 8:40 AM PIERCING SPECIALIST Gender Identity Female 06/17/2020 8:40 AM PIERCING SPECIALIST Sexual Orientation Choose not to disclose 2020 8:40 AM PIERCING SPECIALIST Last Filed Vital Signs Vital Sign Reading [...] HCG URINE QUAL POCT NOTIFICATION(Performed 08/20/2019) * [place] RESPIRATORY FIT TEST(Performed 01/21/2018) Performed for Device [...] intact. Dictated by Garrett Burch MD (radiology teacher). I, Dr. AURORA VASQUEZ M.D. have personally [...] isintact. Dictated by Garrett Burch MD (radiology teacher). I, Dr. AURORA VASQUEZ M.D. have personally reviewed and interpreted this examination/study. This report was electronically signed by AURORA VASQUEZ M.D. on 08/21/2019 9:52 AM . Gale Parker DRY CANS BACK TENDER-CONVEYOR LOADER DIAGNOSTIC IMAGING ORDERABLES * EKG 12-LEAD (08/20/2019 8:52 PM CDT) [facility] Ventricular Rate 80 BPM SL MUSE Atrial Rate 80 BPM [facility] MUSE P-R Interval 134 ms [facility] MUSE QRS Duration ms 84 ms [facility] MUSE Q-T Interval ms 372 ms [facility] MUSE QTC Calculation (Bezet) 429 ms SL MUSE Calculated P Henderson 31 degrees [facility] MUSE Calculated R Henderson 7 degrees [facility] MUSE Calculated T Henderson 23 degrees [facility] MUSE Interpretation EKG NORMAL SINUS RHYTHM CANNOT RULE OUT ANTERIOR INFARCT , AGE UNDETERMINED ABNORMAL ECG NO PREVIOUS ECGS AVAILABLE Confirmed by Demond Herman ([id number]) on 08/22/2019 9:19:24 AM [facility] MUSE 08/20/2019 8:52 PM CDT 08/22/2019 9:19 AM CDT João Rodriguez MD ECG ORDERABLES Performing Organization Address City/[facility]/ZIP Co de Phone Number [facility] MUSE * TROPONIN I (08/20/2019 8:17 PM CDT) Only the most recent of2 resultswithin the time period is included. [facility] Troponin I <0.010 <0.032 ng/mL 08/20/2019 8:42 PM CDT [facility] Blood BLOOD SPECIMEN / Unknown Venipuncture / Unknown 08/20/2019 8:17 PM CDT 08/20/2019 8:17 PM CDT João Rodriguez MD LAB - CHEMISTRY KAREN HIGHTOWER Performing Organization Address City/[facility]/ZIP Co de Phone Number [facility] [address] [place] [address] * LACTIC ACID BLOOD (08/20/2019 8:17 PM CDT) Only the most recent of2 resultswithin the time period is included. Pathologist [facility] Lactic Acid-Stat 1.2 0.5 - 2.0 mmol/L 08/20/2019 8:30 PM CDT [facility] Blood BLOOD SPECIMEN / Unknown Venipuncture / Unknown 08/20/2019 8:17 PM CDT 08/20/2019 8:17 PM CDT João Rodriguez MD LAB - CHEMISTRY KAREN HIGHTOWER [address] [phone] * SARS-COV-2 (COVID-19) IN HOUSE (08/20/2019 6:01 PM CDT) Pathologist [facility] COVID-19 PCR Not detected Not detected, Invalid 08/21/2019 9:[address] [facility] Microbiology SPECIMEN FROM NASOPHARYNGEAL STRUCTURE / Unknown Collection / Unknown 08/20/2019 6:01 PM CDT 08/20/2019 6:[address] [facility] - 08/21/2019 9:46 PM CDT This Real Time RT-PCR assay was developed and its performance characteristics determined by [facility]. This test has been authorized [...] is terminated or revoked sooner. Gale Aguirrelalo DRY CANS BACK TENDER-CONVEYOR LOADER LAB - MICROBIOLOGY ORDERABLES [facility] [address] [place] [address], [place] [phone] * RESPIRATORY PATHOGEN PANEL BY PCR (08/20/2019 6:01 PM CDT) Adenovirus PCR Not detected Not detected, Invalid, Indeterminate 08/21/2019 2:[address] [facility] Coronavirus PCR Not detected Not detected, Invalid, Indeterminate 08/21/2019 2:[address] [facility] Human Metapneumovirus PCR Not detected Not detected, Invalid, Indeterminate 08/21/2019 2:[address] [facility] Human Rhinovirus/Entero virus PCR Not detected Not detected, Invalid, Indeterminate 08/21/2019 2:[address] [facility] Influenza A PCR Not detected Not detected, Equivocal, Invalid, Indeterminate 08/21/2019 2:[address] [facility] Influenza B PCR Not detected Not detected, Invalid, Indeterminate 08/21/2019 2:[address] [facility] Parainfluenza Virus 1 PCR Not detected Not detected, Invalid, Indeterminate 08/21/2019 2:[address] [facility] Parainfluenza Virus 2 PCR Not detected Not detected, Invalid, Indeterminate 08/21/2019 2:[address] [facility] Parainfluenza Virus 3 PCR Not detected Not detected, Invalid, Indeterminate 08/21/2019 2:[address] [facility] Parainfluenza Virus 4 PCR Not detected Not detected, Invalid, Indeterminate 08/21/2019 2:[address] [facility] Respiratory Syncytial Virus PCR Not detected Not detected, Invalid, Indeterminate 08/21/2019 2:[address] [facility] Bordetella pertussis PCR Not detected Not detected, Invalid 08/21/2019 2:[address] [facility] Chlamydia pneumoniae PCR Not detected Not detected, Invalid, Indeterminate 08/21/2019 2:[address] [facility] Mycoplasma pneumoniae PCR Not detected Not detected, Invalid, Indeterminate 08/21/2019 2:[address] [facility] Microbiology SPECIMEN FROM NASOPHARYNGEAL STRUCTURE / Unknown Collection / Unknown 08/20/2019 6:01 PM CDT 08/20/2019 6:[address] [facility] - 08/21/2019 2:52 AM CDT This test is able to detect the following human coronaviruses: HKU1, NL63, 229E, and OC43. It will NOT detect 2019 Novel Coronavirus (2019-nCoV). If 2019-nCoV is suspected contact Infection Prevention for isolation and testing guidance. Gale Parker [facility] - MICROBIOLOGY ORDERABLES [facility] [address] [place] [address], [facility] [phone] * INFLUENZA A+B PCR (08/20/2019 6:01 PM CDT) Influenza A Rapid NICK Negative Negative 08/20/2019 6:37 PM CDT [facility] Influenza B NICK Rapid Negative Negative 08/20/2019 6:37 PM CDT [facility] Microbiology SPECIMEN FROM NASOPHARYNGEAL STRUCTURE / Unknown Collection / Unknown 08/20/2019 6:01 PM CDT 08/20/2019 6:08 PM CDT Narrative [facility] - 08/20/2019 6:37 PM CDT Assay [...] treatment, or patient management decisions. Gale Parker [facility] - MICROBIOLOGY ORDERABLES Performing Organization Address City/[facility]/ZIP Co de Phone Number [facility] [address] [place] [address], [facility] [phone] * PT-INR [facility] (08/20/2019 6:00 PM CDT) PT 13.6 12.1 - 14.8 Seconds 08/20/2019 6:31 PM CDT [facility] INR 1.1 See Comment 08/20/2019 6:31 PM CDT [facility] Comment:The suggested therap eutic range for standard coumadin (warfarin) therapy is an INR of 2.0-3.0. For high-risk patients (Mechanical Mitral Valve Prosthesis, etc.), the suggested prophylactic therapeutic range is an INR of 2.5-3.5. Blood BLOOD SPECIMEN / Unknown Venipuncture / Unknown 08/20/2019 6:00 PM CDT 08/20/2019 6:17 PM CDT João Rodriguez MD LAB - COAGULATION OR DERABLES Performing Organization Address City/State/[facility] Co de Phone Number [address] [phone] * PROCALCITONIN LEVEL (08/20/2019 6:00 PM CDT) PROCALCITONIN <0.02 <=0.10 ng/mL 08/20/2019 6:57 PM CDT [facility] Blood BLOOD SPECIMEN / Unknown Venipuncture / Unknown 08/20/2019 6:00 PM CDT 08/20/2019 6:17 PM CDT Narrative [facility] - 08/20/2019 6:57 PM CDT The [...] Change in Procalcitonin Calculator is available at [email or web address] ?? If clinical picture has not improved and PCT remains high, reevaluate and consider treatment failure or other causes. Gale Parker APRN-CONVEYOR LOADER LAB - CHEMISTRY OR DERABLES [facility] [address] [place] [address], [facility] [phone] * (ABNORMAL) CBC W AUTO DIFFERENTIAL (08/20/2019 6:00 PM CDT) WBC 15.9(H) 3.5 - 10.5 10? 3 /uL 08/20/2019 6:07 PM CDT [facility] RBC 4.85 3.90 - 5.00 10? 6 /uL 08/20/2019 6:07 PM [facility] Hemoglobin 11.8(L) 12.0 - 15.5 g/dL 08/20/2019 6:07 PM T [facility] Hematocrit 38.2 35.0 - 45.0 % 08/20/2019 6:07 PM [facility] MCV 78.8(L) 81.0 - 97.0 fL 08/20/2019 6:07 PM T [facility] MCH 24.3(L) 28.0 - 34.0 pg 08/20/2019 6:07 PM T [facility] MCHC 30.9(L) 32.0 - 36.0 g/dL [...] 3.0 - 15.0 % 08/20/2019 6:07 PM [facility] Eosinophils % 0.0 0.0 - 6.0 % 08/20/2019 6:07 PM [facility] Basophil % 0.4 0.0 - 1.5 % 08/20/2019 6:07 PM [facility] Neutrophils Absolute 12.6(H) 1.6 - 7.0 10? 3 /uL 08/20/2019 6:07 PM [facility] Lymphocyte Absolute 2.4 0.8 - 2.9 10? 3 /uL 08/20/2019 6:07 PM [facility] Monocytes Absolute 0.75(H) 0.14 - 0.66 10? 3 /uL 08/20/2019 6:07 PM [facility] Eosinophils Absolute 0.00 0.00 - 0.45 10? 3 /uL 08/20/2019 6:07 PM [facility] Basophils Absolute 0.06 0.00 - 0.06 10? 3 /uL 08/20/2019 6:07 PM [facility] Immature Granulocytes % 0.4 0.0 - 1.0 % 08/20/2019 6:07 PM [facility] Blood BLOOD SPECIMEN / Unknown Venipuncture / Unknown 08/20/2019 6:00 PM CDT 08/20/2019 6:05 PM CDT João Rodriguez MD LAB - HEMATOLOGY ORD ERABLES [facility] [address] [phone] * (ABNORMAL) COMPREHENSIVE METABOLIC PANEL (08/20/2019 6:00 PM CDT) BUN 8 7 - 26 mg/dL 08/20/2019 6:23 PM [facility] Creatinine 0.7 0.6 - 1.2 mg/dL 08/20/2019 6:23 PM [facility] Sodium 140 136 - 145 mmol/L 08/20/2019 6:23 PM [facility] Potassium 3.8 3.5 - 4.5 mmol/L 08/20/2019 [...] 7 - 23 08/20/2019 6:23 PM CDT [facility] Osmolality Calculated 290 270 - 300 mOsm/kg 08/20/2019 6:23 PM CDT [facility] Albumin/Globulin Ratio 0.9(L) 1.1 - 2.3 08/20/2019 6:23 PM CDT [facility] eGFR >60 >60 mL/min/1.7 3 m2 08/20/2019 6:23 PM CDT [facility] Blood BLOOD SPECIMEN / Unknown Venipuncture / Unknown 08/20/2019 6:00 PM CDT 08/20/2019 6:05 PM CDT João Rodriguez MD LAB - CHEMISTRY ORDE RABJONATHAN Performing Organization Address City/[facility]/ZIP Co de Phone Number [facility] [address] [phone] * CULTURE BLOOD (08/20/2019 5:47 PM CDT) Only the most recent of2 resultswithin the time period is included. Culture No growth day 5 ABRAHAM 08/25/2019 11:[address] [facility] Blood PERIPHERAL BLOOD / Unknown Venipuncture / Unknown 08/20/2019 5:47 PM CDT 08/20/2019 6:04 PM CDT João Rodriguez MD LAB - MICROBIOLOGY O RDERABLES [facility] [address] [phone] * HCG URINE QUAL POCT NOTIFICATION (08/20/2019 5:42 PM CDT) Comment Notification Label Only - See Separate Report 08/20/2019 7:00 PM CDT [facility] Urine URINE / Unknown 08/20/2019 5 :42 PM CDT 08/20/2019 5:57 PM CDT João Rodriguez MD LAB - URINALYSIS ORD ERABLES Performing Organization Address [facility]/State/ZIP Co de Phone Number [facility] [address] [phone] * [place] RESPIRATORY FIT TEST (01/21/2018 3:11 PM CDT) [...] questions at this time. Hawa David MD [place] - PROFESSIONAL SE RVICES * DRUG SCREEN 10 URINE - POCT (AMB) [facility] (01/22/2017) THC negative [facility] Opiates negative [facility] Amphetamines negative [facility] Cocaine Metabolite negative [facility] Phencyclidine negative [facility] Barbiturates Screen negative [facility] Benzodiazepine negative [facility] Oxycodone negative [facility] Methamphetamine negative [facility] Propoxyphene negaitve [facility] Individual Analytes 8 Estriol negative [facility] pH Urine 4 [facility] Specific [place] 1.003 [facility] Nitrite UA negative [facility] Oxidant negative [facility] Temperature 94 degrees C [facility] 01/22/2017 Hawa David MD LAB - POINT OF CARE ORDERABLES Performing Organization Address [facility]/ZIP Co de Phone Number [facility] * MRI BRAIN NON CONTRAST (10/03/2012 8:20 [...] David Santos MD MR ORDERABLES Care Teams Hr Generalist Relationship Specialty Start Date End Date Siria Dunham MD [address] [place] [address] PCP - General 09/25/21
--- OUTSIDE RECORDS SUMMARY | 2024-06-06 05:19 | XMS_ITS | Encounter Summary ---
Author Organization [facility] Address [address] [facility] [place] [address] Care Team Providers Care Stone Rubber Name Role Phone Unavailable Primary Care Provider Unavailabl e Reason for Visit * Reason Comments Imm Inj Encounter Details Date Type Department Care Team (Latest Contact Info) Description 03/11/2018 2:30 PM CDT Clinical Support [address] [address] Need for immunization against influenza Social History Tobacco Use Types Packs/Day Years Used Date Smoking Tobacco: Never Assessed Sex and Gender Information Value Date Recorded Sex Assigned at Female 06/17/2020 8:40 AM AUDIO VIDEO MECHANIC Gender Identity Female 06/17/2020 8:40 AM AUDIO VIDEO MECHANIC Sexual Orientation Choose not to disclose 2020 8:40 AM AUDIO VIDEO MECHANIC documented as of this encounter Patient Instructions * Patient Instructions* Bharati Shah RN - 03/11/2018 2:41 PM CDT Influenza Virus Vaccine (By injection) Influenza Virus Vaccine ([id number] VYE-ina VAX-een) Helps prevent infection with influenza (flu) virus. Brand Name(s): Afluria [id number] Formula, Afluria [id number] Formula, Afluria Quadrivalent 2015-2016Formula, Afluria Quadrivalent [id number] Formula, FluLaval Quadrivalent [id number] Formula, FluLaval Quadrivalent [id number] Formula, Fluad 4964-2547 Formula, Fluad 3280-1221 Formula, Fluarix Quadrivalent [id number] Formula, Fluarix Quadrivalent 5095-2940 Formula, Flublok [id number] Formula, Flublok Quadrivalent 9409-3536 Formula, Flucelvax Quadrivalent [id number] Formula, Flucelvax Quadrivalent 6329-2514 Formula, Fluvirin [id number] Formula There may be other brand names [...] pharmacist before using any other medicine, including xmug-kir-mdrzjom medicines, vitamins, and herbal products. ?? Tell [...] reaction to a flu shot, such as Guillain-Lawrence?? syndrome, or if you are allergic to [...] may report side effects to FDA at 2-766-KYT-3364 ?? Copyright [employer] 2018 Information is for End User's use only and may not be sold, redistributed or otherwise used for commercial purposes. The above information is an instructional aide only. It is not intended as [...]
--- OUTSIDE RECORDS SUMMARY | 2024-06-06 05:19 | XMS_ITS | Encounter Summary ---
Author Organization [facility] Address [address] [place] [address] Care Team Providers Care Vp Global Marketing Solutions Name Role Phone Unavailable Primary Care Provider Unavailabl e Reason for Visit * Reason Comments Cough Congestion Fever Breathing Problem Encounter Details Date Type Department Care Team (Late st Contact Info) Description 08/06/2019 4:20 PM CDT Office Visit [facility] [address] [address] Provider, Mag [facility] Acute bronchitis, unspecified organism (Primary Dx) Social History Tobacco Use Types Packs/Day Years Used Date Smoking Tobacco: Never Smokeless Tobacco: Never Sex and Gender Information Value Date Recorded Sex Assigned at Female 06/17/2020 8:40 AM SLOT SUPERVISOR Gender Identity Female 06/17/2020 8:40 AM SLOT SUPERVISOR Sexual Orientation Choose not to disclose 2020 8:40 AM SLOT SUPERVISOR documented as of this encounter Last Filed [...] Patient Instructions * Patient Instructions* Mariola Bennett, HEALTH AND SAFETY TECH-CHIEF MECHANICAL OFFICER - 08/06/2019 5:02 PM CDT Images from the original note were not included. Patient Education Acute Bronchitis DIRECTOR WEB: Acute bronchitis is swelling and irritation in [...] them during your follow-up visits. ?? Copyright [employer] 2019 Information is for End User's use only and may not be sold, redistributed or otherwise used for commercial purposes. All illustrations and images included in CareNotes?? are the copyrighted property of [employer] or [employer] The above information is an care aid only. It is not intended as [...] file Gets together: Not on file Attends holiness service: Not on file Active member of [...]
--- OUTSIDE RECORDS SUMMARY | 2024-06-06 05:20 | XMS_ITS | Encounter Summary ---
Author Organization [facility] Address [address] [facility] [place], [place] [address] [place] [address] Care Team Providers Care Floral Designer Salesperson Name Role Phone None, Provider Primary Care [...] on filedocumented in this encounter Care Teams Floral Designer Salesperson Relationship Specialty Start Date End Date None, Provider, PCP - General 01/07/22 documented as of this encounter
--- OUTSIDE RECORDS SUMMARY | 2024-06-06 05:20 | XMS_ITS | Encounter Summary ---
Author Organization [facility] Address [address] [facility] [place] [address] [place] [address] Care Team Providers Care Shrink Pit Operator Name Role Phone None, Provider Primary Care Provider Unavaila ble Reason for Visit * Reason Comments Arm Pain Left arm pain and ti ngling after falling down a couple stairs . Denies hitting head/LOC. PMS intact. Active/passive ROM tolerated. Encounter Details Date Type Department Care Team (Late st Contact Info) Description 01/07/2022 5:49 PM CDT - 01/07/2022 7:32 PM CDT Emergency [facility] Emergency Room [address] [place] [address] Samantha Montiel MD [address] [place] [id number] Arm Pain (Left arm pain and [...] through Care Everywhere. * Minor Contusion ED (Namibian) documented in this encounter Medications at Time [...] RN) documented in this encounter Care Teams Shrink Pit Operator Relationship Specialty Start Date End Date None, Provider, PCP - General 01/07/22 documented as of this encounter
--- OUTSIDE RECORDS SUMMARY | 2024-06-06 05:20 | XMS_ITS | Clinical Summary ---
Author Organization [facility] Address [address] [facility] [place] [address] [place] [address] Care Team Providers Care Asset Card Clerk Name Role Phone None, Provider MD Primary [...] to complete this topic Insurance [facility] Care Teams Asset Card Clerk Relationship Specialty Start Date End Date None, Provider, PCP - General 01/07/22
--- OUTSIDE RECORDS SUMMARY | 2024-06-06 05:20 | XMS_ITS | Encounter Summary ---
Author Organization [facility] Address [address] [facility] [place] [address] Care Team Providers Care Inspector Assemblies And Installations Name Role Phone Unavailable Primary Care Provider Unavailabl e Reason for Referral * - Closed Specialty Diagnoses / Procedures Referred By Cyn burnett Referred To Contact Diagnoses Headache(784.0) Procedures MRI BRAIN NON CONTRAST David Santos MD Referral ID Status Reason Start Date Expiration Date Visits Re quested Visits Authorized [id number] Closed 09/29/2012 03/28/2013 1 1 Reason for Visit * (Routine) - Closed Specialty Diagnoses / Procedures Referred By Cyn burnett Referred To Contact MRI [facility] OP [address] [place] [address] Mri [address] [place] [address] Referral ID Status Reason Start Date Expiration Date Visits Re quested Visits Authorized [id number] Closed 10/03/2012 04/01/2013 1 1 Encounter Details Date Type Department Care Team (Latest Contact Info) Description 10/03/2012 7:20 AM CDT - 10/03/2012 11:59 PM CDT Hospital Encounter [facility] - MRI [address] [place] [address] David Santos MD Discharge Disposition: Home or Self Care Social History Tobacco Use Types Packs/Day Years Used Date Smoking Tobacco: Never Assessed Sex and Gender Information Value Date Recorded Sex Assigned at Female 06/17/2020 8:40 AM CHORE TENDER Gender Identity Female 06/17/2020 8:40 AM CHORE TENDER Sexual Orientation Choose not to disclose 2020 8:40 AM CHORE TENDER documented as of this encounter Miscellaneous Notes [...]
--- OUTSIDE RECORDS SUMMARY | 2024-06-06 05:20 | XMS_ITS | Encounter Summary ---
Author Organization [facility] Address [address] [facility]. [place], [place] [address] [place] [address] Care Team Providers Care Trust Mail Clerk Name Role Phone Reynaldo Gutierrez MD Primary Care Provider [phone] Encounter Details Date Type Department Care Team (Late st Contact Info) Description 02/02/1998 [place] [address] , Generic Conversion, Social History Tobacco Use [...] on filedocumented in this encounter Care Teams Trust Mail Clerk Relationship Specialty Start Date End Date Reynaldo Gutierrez MD PCP - General 05/10/16 12/01/18 documented as of this encounter
--- OUTSIDE RECORDS SUMMARY | 2024-06-06 05:20 | XMS_ITS | Encounter Summary ---
Author Organization [facility] Address [address] [facility]. [place], [place] [address] [place] [address] Care Team Providers Care Glass Worker Name Role Phone Broderick Fernando BROKE MAN-C Primary Care Provider [phone] Reason for Visit * Imaging (Routine) - Closed Specialty Diagnoses / Procedures Referred By Cyn t Referred To Contact RADIOLOGY Diagnoses Abdominal pain Nausea Vomiting Procedures US ABD LIMITED US ABD COMPLETE Luana Guzman MD [address] [facility] [address] [place] [address] Phone: tel: fax: Referral ID Status Reason Start Date Expiration Date Visits Re quested Visits Authorized [id number] Closed 11/26/2018 12/26/2019 1 1 Encounter Details Date Type Department Care Team (Latest Contact Info) Description 12/02/2018 9:35 AM CDT - 12/02/2018 11:59 PM CDT Hospital Encounter [facility] [place] [address] Luana Guzman MD [address] [facility] [address] [place] [address] Discharge Disposition: Home or Self [...] alone documented in this encounter Care Teams Glass Worker Relationship Specialty Start Date End Date Broderick Fernando NP-C [address] [place] [address] PCP - General FAMILY PRACTICE 12/02/18 01/06/22 documented as of this encounter
--- OUTSIDE RECORDS SUMMARY | 2024-06-06 05:20 | XMS_ITS | Encounter Summary ---
Author Organization [facility] Address [address] [facility]. [place], [place] [address] [place] [address] Care Team Providers Care Studio Manager Name Role Phone Reynaldo Gutierrez MD Primary Care Provider [phone] Encounter Details Date Type Department Care Team (Late st Contact Info) Description 1997 Abstract [facility] [place] [address] Hong Cardona MD Social History Tobacco Use [...] on filedocumented in this encounter Care Teams Studio Manager Relationship Specialty Start Date End Date Reynaldo Gutierrez MD PCP - General 05/10/16 12/01/18 documented as of this encounter
--- OUTSIDE RECORDS SUMMARY | 2024-06-06 05:20 | XMS_ITS | Encounter Summary ---
Author Organization [facility] Address [address] [facility]. [place], [place] [address] [place] [address] Care Team Providers Care Flag Signalman Name Role Phone Reynaldo Gutierrez MD Primary Care Provider [phone] Encounter Details Date Type Department Care Team (Late st Contact Info) Description 05/10/2016 Abstract [facility] [address] [place] [address] Armando Richardson, APDUDLEY [address] [facility] [address] [place] [address] Social History Tobacco Use Types Packs/Day Years [...] sinuses documented in this encounter Care Teams Flag Signalman Relationship Specialty Start Date End Date Reynaldo Gutierrez MD PCP - General 05/10/16 12/01/18 documented as of this encounter
--- OUTSIDE RECORDS SUMMARY | 2024-06-06 05:20 | XMS_ITS | Patient Health Record ---
Author Organization [facility] [employer] Address [address] [place] [address] Care Team Providers Care Svp Group Director Name Role Phone Rodrigo Richardson Unavailable [phone] Migration, Provider Unavailable Unavailable Reason For Referral No Information Medications Medication SIG (Take, Route, Frequency, Duration) Notes Start Date End Date Status Cephalexin 500 MG Oral 12/03/2022 A ctive oxyCODONE HCl 5 MG Oral 12/03/2022 Active Norethindrone 0.35 MG Oral 12/03/2022 Active clonazePAM 0.5 MG Oral 12/03/2022 A ctive ProAir HFA 108 (90 Base) MCG/ACT Inhalation 12/03/2022 Active Fluconazole 150 MG Oral 12/03/2022 Active Triamcinolone Acetonide 55 MCG/ACT Nasal 12/03/2022 Active buPROPion HCl ER (XL) 150 MG Oral 12/03/2022 Active Amoxicillin-Pot Clavulanate 875-125 MG Oral 12/03/2022 Active Cetirizine HCl 10 MG Oral 12/03/2022 Active traZODone HCl 150 MG Oral 12/03/2022 Active Ondansetron 8 MG Oral 12/03/2022 Ac tive Promethazine HCl 25 MG Oral 12/03/2022 Active predniSONE 20 MG Oral 12/03/2022 Ac tive Mupirocin 2% External 12/03/2022 Active Cromolyn Sodium 100 MG/5ML Oral 12/03/2022 Active Amoxicillin 500 MG Oral 12/03/2022 Active Fluconazole 100 MG Oral 12/03/2022 Active HYDROcodone-Acetamino phen 5-325 MG Oral 12/03/2022 Active metFORMIN HCl 1000 MG Oral 12/03/2022 Active Symbicort 80-4.5 MCG/ACT Inhalation 12/03/2022 Active Magnesium Oxide (Elemental) 400 MG Oral *Reorder from [facility] for eRx and Interaction Alerts* 12/03/2022 Active lamoTRIgine 100 MG 1.5 tablet Orally Once a day for 30 days Active traZODone HCl 50 MG Oral 12/03/2022 Active Benzonatate 200 MG Oral 12/03/2022 Active Phentermine HCl 37.5 MG Oral 12/03/2022 Active Sertraline HCl 100 MG Oral 12/03/2022 Active LEVALBUTEROL TARTRATE HFA 45 mcg/actuation Inhalation *Reorder from [facility] for eRx and Interaction Alerts* 12/03/2022 Active Famotidine 40 MG Oral 12/03/2022 Ac tive Triamcinolone Acetonide 0.025 % External 12/03/2022 Active Pantoprazole Sodium 40 MG Oral 12/03/2022 Active Propranolol HCl ER 60 MG Oral 12/03/2022 Active Immunizations Vaccine Route Administration Date Status Comme nts MMR Unknown 07/25/2016 Administered Pfizer Biontech Covid-19 Vac cine 2nd dose Unknown 04/08/2021 Administered Pfizer [employer]ion[employer] Covid-19 Vac cine 2nd dose Unknown 12/02/2021 Administered Tdap Unknown 07/28/2018 Administered Social History Sex Assigned At : Social History Observation Description Sex Assigned At Female Encounters Encounter Location Date Provider Diagnosis [facility] [address] [place] [address] 11/08/2023 Rodrigo Richardson [facility] [address] [place] [address] 06/12/2023 Provider Migration [facility] [address] [place] [address] 07/10/2023 Provider Migration [facility] [address] [place] [address] 07/17/2023 Provider Migration [facility] [address] [place] [address] 07/23/2023 Provider Migration [facility] [address] [place] [address] 07/31/2023 Provider Migration [facility] [address] [facility] [address] [place] [address] 08/14/2023 Provider Migration [facility] [address] [facility] [address] [place] [address] 10/12/2023 Provider Migration [facility] [address] [facility] [address] [facility] [address] [place] [address] 10/13/2023 Provider Migration [facility] [address] [facility] [address] [place] [address] 11/11/2023 Rodrigo Richardson Major depressive disorder, recurrent, moderate F33.1 [facility] [address] [facility] [address] [facility] [address] [place] [address] 11/11/2023 Rodrigo Richardson [facility] [address] [address] 11/04/2023 Rodrigo Richardson [facility] [address] [address] 11/06/2023 Rodrigo Richardson Assessments Encounter Date Diagnosis (ICD Code) Assessment Notes Treatment Notes Treatment Clinical Notes Section Notes 11/11/2023 Major depressive disorder, recurrent, moderate (ICD-10 - F33.1) Plan Of Treatment No Information Insurance Providers Payer Name Payer Address Payer Phone Subscriber Number Group Number Insured Name Patient Relationship to Insured Coverage Start Date Coverage End Date [employer] [address] [place] [address] [id number] TERESA CERVANTES Self - patient is the insured
--- OUTSIDE RECORDS SUMMARY | 2024-06-06 05:20 | XMS_ITS | Encounter Summary ---
Author Organization [facility] Address [address] [facility]. [place], [place] [address] [place] [address] Care Team Providers Care Pharmacy Technology Instructor Name Role Phone Broderick Fernando LABORER RAGS-C Primary Care Provider Reason for Visit * Reason Comments Ear Problem Congestion Encounter Details Date Type Department Care Team (Latest Contact Info) Description 01/05/2019 1:13 PM CDT - 01/05/2019 1:49 PM CDT [facility] [address] [place], [place] [id number] Tere Evans, AUTO WINDER- Ear Problem; Congestion Discharge Disposition: Home or [...] * Ear Infections (Otitis Media) Discharge Instructions (Malaysian) * Cough Discharge Instructions, Adult (Malaysian) documented in this encounter Medications at [...] She reports that she flew home from [place] and has not been able to get [...] days. Qty: 20 tablet, Refills: 0 Class: [facility]God [facility] ST[facility] #[id number] [place] [address] [facility] & [facility] [address] (Ph #: [phone]) benzonatate 200 MG capsule Take 1 capsule (200 mg total) by mouth 3 (three) times daily as needed for Cough. Qty: 20 capsule, Refills: 0 Class: DeskGod [facility]: [facility] STORE #[id number] [place] [address] [facility] [address] (Ph #: [phone]) ibuprofen 800 MG tablet Take 1 tablet (800 mg total) by mouth every 8 (eight) hours as needed. Qty: 40 tablet, Refills: 0 Class: DropmysitecribCh[facility] Pharm[facility]: [facility] STORE #[id number] [place] [address] [facility] [address] (Ph #: [phone]) MDM Number of Diagnoses or Management Options Cough: Otitis media, right: Patient Progress Patient progress: stable SNOMED CT(R) 1. Otitis media, right OTITIS MEDIA OF RIGHT EAR 2. Cough COUGH Disposition: Discharge Follow up instructions: RAFAEL Acosta [address] [phone] Call in 2 days If symptoms worsen and have your ear rechecked in 2 weeks LIYA SHEPHERD FNP 01/05/19 1345 Cosigned by Tyler Gracia MD at 01/05/2019 5:01 PM CDT documented in this encounter Plan of Treatment Not on file documented as of this encounter Visit Diagnoses Diagnosis Otitis media, right- Primary Unspecified otitis media Cough documented in this encounter Care Teams Pharmacy Technology Instructor Relationship Specialty Start Date End Date Broderick Fernando NP-C [address] [place] [address] PCP - General FAMILY PRACTICE 12/02/18 01/06/22 documented as of this encounter
--- OUTSIDE RECORDS SUMMARY | 2024-06-06 05:20 | XMS_ITS | Encounter Summary ---
Author Organization [facility] Address [address] [facility]. [place], [place] [address] [place] [address] Care Team Providers Care Auto Transmission Mechanic Name Role Phone Reynaldo Gutierrez MD Primary Care Provider [phone] Encounter Details Date Type Department Care Team (Late Contact Info) Description 03/30/2017 [place] [address] , Generic Conversion, Social History Tobacco Use [...] on filedocumented in this encounter Care Teams Auto Transmission Mechanic Relationship Specialty Start Date End Date Reynaldo Gutierrez MD PCP - General 05/10/16 12/01/18 documented as of this encounter
--- OUTSIDE RECORDS SUMMARY | 2024-06-06 05:20 | XMS_ITS | Encounter Summary ---
Author Organization [facility] Address [address] [facility] [place] [address] [place] [address] Care Team Providers Care Quality Assurance Monitor Name Role Phone Reynaldo Gutierrez MD Primary Care Provider Encounter Details Date Type Department Care Team (Latest Contact Info) Description 07/29/2018 2:59 PM STAPLE PROCESSING MACHINE OPERATOR - 07/29/2018 11:59 PM [facility] Hospital Encounter [facility] [address] [place], [place] [id number] Broderick Fernando, DUDLEY-C [address] [place] [address] Discharge Disposition: Home or Self [...] FOOT RT 3V Routine 07/29/2018 3:22 PM STAPLE PROCESSING MACHINE OPERATOR Flat foot, acquired, right XR FOOT LT 3V Routine 07/29/2018 3:22 PM STAPLE PROCESSING MACHINE OPERATOR Flat foot, acquired, left documented in this encounter Results * XR FOOT RT 3V (07/29/2018 3:22 PM STAPLE PROCESSING MACHINE OPERATOR) Anatomical Region Laterality Modality Foot Radiographic Sapna ging 07/30/2018 3:29 AM STAPLE PROCESSING MACHINE OPERATOR Impressions 07/30/2018 3:29 AM STAPLE PROCESSING MACHINE OPERATOR =====IMPRESSION:===== 1. No significant radiographic abnormality. Narrative 07/30/2018 3:29 AM STAPLE PROCESSING MACHINE OPERATOR Examination: Right foot 3 views Exam date/time: [...] 1. No significant radiographic abnormality. Broderick Abdullahi MATCHER OPERATOR-C GENERAL IMAGING Final Result * XR FOOT LT 3V (07/29/2018 3:22 PM STAPLE PROCESSING MACHINE OPERATOR) Anatomical Region Laterality Modality Foot Radiographic Sapna ging 07/30/2018 3:28 AM STAPLE PROCESSING MACHINE OPERATOR Impressions 07/30/2018 3:28 AM STAPLE PROCESSING MACHINE OPERATOR =====IMPRESSION:===== 1. No significant radiographic abnormality. Narrative 07/30/2018 3:28 AM STAPLE PROCESSING MACHINE OPERATOR Examination: Left foot 3 views Exam date/time: [...] 1. No significant radiographic abnormality. Broderick Fernando MATCHER OPERATOR-C GENERAL IMAGING Final Result documented in this encounter Visit Diagnoses Diagnosis Flat foot, acquired, left Flat foot, acquired, right documented in this encounter Care Teams Quality Assurance Monitor Relationship Specialty Start Date End Date Reynaldo Gutierrez MD PCP - General 05/10/16 12/01/18 documented as of this encounter
--- OUTSIDE RECORDS SUMMARY | 2024-06-06 05:20 | XMS_ITS | Encounter Summary ---
Author Organization [facility] Address [address] [facility]. [place], [place] [address] [place] [address] Care Team Providers Care Storage Battery Inspector Name Role Phone Reynaldo Gutierrez MD Primary Care Provider [phone] Encounter Details Date Type Department Care Team (Late st Contact Info) Description 08/07/2008 Abstract [facility] [address] [place] [address] Wade Arreola MD Social History Tobacco Use [...] on filedocumented in this encounter Care Teams Storage Battery Inspector Relationship Specialty Start Date End Date Reynaldo Gutierrez MD PCP - General 05/10/16 12/01/18 documented as of this encounter
--- OUTSIDE RECORDS SUMMARY | 2024-06-06 05:20 | XMS_ITS | Encounter Summary ---
Author Organization [facility] Address [address] [facility] [place] [address] Care Team Providers Care Communications Designer Name Role Phone Unavailable Primary Care Provider Unavailabl e Encounter Details Date Type Department Care Team (Late st Contact Info) Description 02/01/2016 Hospital Outpatient Visit [facility] - Orthopedics [address] [place] [address], [facility] [place] [address] Jh Gao MD [address] [place] [address] [place] [address] Discharge Disposition: Home or Self Care Social History Tobacco Use Types Packs/Day Years Used Date Smoking Tobacco: Never Assessed Sex and Gender Information Value Date Recorded Sex Assigned at Female 06/17/2020 8:40 AM FERN CUTTER Gender Identity Female 06/17/2020 8:40 AM FERN CUTTER Sexual Orientation Choose not to disclose 2020 8:40 AM FERN CUTTER documented as of this encounter Plan of Treatment Not on file documented as of this encounter Visit Diagnoses Not on filedocumented in this encounter
--- OUTSIDE RECORDS SUMMARY | 2024-06-06 05:21 | XMS_ITS | Encounter Summary ---
Author Organization [facility] Address [address] [place] [address] Care Team Providers Care Senior Oracle Applications Developer Name Role Phone Unavailable Primary Care Provider Unavailabl e Encounter Details Date Type Department Care Team (Latest Contact Info) Description 09/20/2022 11:30 AM CDT Ancillary Procedure [facility] [address] [facility] [address] [place] [address] Menorrhagia with irregular cycle; Hemorrhagic [...] AM CDT Narrative 10/04/2022 6:28 PM CDT [facility] ----- Pat. Name: TERESA CERVANTES Study Date: 09/20/2022 11:48am Pat. NO: [id number] Referring ??MD: SIMEON GARCIA MD Site: [address] Inside Plant Supervisor: Lisandra Patel RDMS : 1995 Age: 27 ----- INDICATION ----- PCOS (Polycystic Ovarian Syndrome) Irregular Menstrual Cycle Ovarian Cyst, Left Side, Other CODING ----- Diagnoses ? N83.202: Unspecified ovarian cyst, left side ?N92.5: Other specified irregular menstruation ?E28.2: Polycystic ovarian syndrome Procedures ?90921: Ultrasound non OB transvaginal ASSESSMENT ----- Cycle: [...] 3.7 mm Right Ovary is normal size. [id number] Left Ovary is normal size. [id number] Procedure Note Simeon Garcia MD - 10/04/2022 [facility] ----- Pat. Name:Cassidy CERVANTES Date:09/20/2022 11:48am Pat. NO: [id number] MD:SIMEON GARCIA MD [address]:Lisandra Patel RDMS :1995Age:27 ----- INDICATION ----- PCOS (Polycystic Ovarian Syndrome) Irregular Menstrual Cycle Ovarian Cyst, Left Side, Other CODING ----- Diagnoses N83.202: Unspecified ovarian cyst, left side N92.5: Other specified irregular menstruation E28.2: Polycystic ovarian syndrome Procedures 51449: Ultrasound non OB transvaginal ASSESSMENT ----- Cycle: [...] 3.7 mm Right Ovary is normal size. [id number] Left Ovary is normal size. [id number] Simeon Garcia MD US ORDERABLES documented in this encounter Visit Diagnoses Diagnosis Menorrhagia with irregular cycle Excessive or frequent menstruation Hemorrhagic cyst of ovary Other and unspecified ovarian cyst Morbid obesity with body mass index of 40.0-49.9 documented in this encounter
--- OUTSIDE RECORDS SUMMARY | 2024-06-06 05:21 | XMS_ITS | Encounter Summary ---
Author Organization [facility] Address [address] [place] [address] Care Team Providers Care Skate Boarder Name Role Phone Unavailable Primary Care Provider [...]
--- OUTSIDE RECORDS SUMMARY | 2024-06-06 05:21 | XMS_ITS | Encounter Summary ---
Author Organization [facility] Address [address] [place] [address] Care Team Providers Care Metal Stamper Name Role Phone Unavailable Primary Care Provider Unavailabl e Reason for Visit * Reason Comments Follow Up Encounter Details Date Type Department Care Team (Late st Contact Info) Description 06/19/2022 3:00 PM SPEAKING UNIT ASSEMBLER Video Visit [facility] [address] [address] Leny Garcia MD [address] [place] [address] Obesity (BMI 35.0-39.9 without comorbidity) [...] follow-up in 3 months. 20 minutes spent [id number] with patient. Over 50% of the time [...] that co-insurance and deductible may apply: yes KING UNIT ASSEMBLER documented in this encounter Plan of Treatment Not on file documented as of this encounter Visit Diagnoses Diagnosis Obesity (BMI 35.0-39.9 without comorbidity)- Primary Obesity, unspecified documented in this encounter
--- OUTSIDE RECORDS SUMMARY | 2024-06-06 05:21 | XMS_ITS | Encounter Summary ---
Author Organization [facility] Address [address] [place] [address] Care Team Providers Care Customer Resource Specialist Name Role Phone Unavailable Primary Care Provider Unavailabl e Reason for Visit * Reason Onset Date Comments medication denied 06/21/2022 Encounter Details Date Type Department Care Team (Late st Contact Info) Description 06/21/2022 Telephone [facility] [address] [address] Leny Garcia MD [address] [place] [address] medication denied Social History Tobacco [...] have options for her please return mycall Y MACHINE TENDER documented in this encounter Plan of Treatment Not on file documented as of this encounter Visit Diagnoses Not on filedocumented in this encounter
--- OUTSIDE RECORDS SUMMARY | 2024-06-06 05:21 | XMS_ITS | Encounter Summary ---
Author Organization [facility] Address [address] [place] [address] Care Team Providers Care Drill Presser Name Role Phone Unavailable Primary Care Provider Unavailabl e Reason for Visit * Reason Comments follow up Encounter Details Date Type Department Care Team ([facility] st Contact Info) Description 02/23/2022 3:00 PM CDT Video Visit [facility] [address] [address] Leny Garcia MD [address] [place] [address] Obesity (BMI 35.0-39.9 without comorbidity) [...] months and follow-up then. 20 minutes spent [id number] with patient. Over 50% of the time [...]
--- OUTSIDE RECORDS SUMMARY | 2024-06-06 05:21 | XMS_ITS | Encounter Summary ---
Author Organization [facility] Address [address] [place] [address] Care Team Providers Care Extracting Machine Operator Name Role Phone Unavailable Primary Care Provider Unavailabl e Reason for Visit * Reason Comments ER Follow Up Vaginal Bleeding Encounter Details Date Type Department Care Team (Late st Contact Info) Description 07/12/2022 2:00 PM ADVERTISING SALES ASSISTANT Office Visit [facility] [address] [facility] [address] [place] [address] Fiordaliza Veloz, DUDLEY [address] [facility] [address] [place] [address] Menorrhagia with irregular cycle (Primary [...] Coronavirus/COVID-19? No / Unsure 07/12/2022 2:01 PM ADVERTISING SALES ASSISTANT documented as of this encounter Last Filed Vital Signs Vital Sign Reading Time Taken Comments Blood Pressure 120/66 07/12/2022 2:09 PM ADVERTISING SALES ASSISTANT Pulse - - Temperature - - Respiratory Rate - - Oxygen Saturation - - Inhaled Oxygen Concentration - - Weight 122.9 kg (271 lb) 07/12/2022 2:09 PM ADVERTISING SALES ASSISTANT Height 162.6 cm (5' 4 ) 07/12/2022 2:09 PM ADVERTISING SALES ASSISTANT Body Mass Index 46.52 07/12/2022 2:09 PM ADVERTISING SALES ASSISTANT documented in this encounter Progress Notes * Magdiel Fiordaliza Dos Santosy, MARKETING RESEARCH COORDINATOR - 07/12/2022 3:01 PM CST SUBJECTIVE: Emily [...] changes in weight. No urinary tract symptoms. ADMISSIONS SUPERVISOR ROS: she complains of pelvic pain and [...] No Terminated : No Unprotected sex: Yes RTISING SALES ASSISTANT documented in this encounter Plan of Treatment Not on file documented as of this encounter Visit Diagnoses Diagnosis Menorrhagia with irregular cycle- Primary Excessive or frequent menstruation Hemorrhagic ovarian cyst Other and unspecified ovarian cyst documented in this encounter
--- OUTSIDE RECORDS SUMMARY | 2024-06-06 05:21 | XMS_ITS | Encounter Summary ---
Author Organization [facility] Address [address] [place]man: Epic Prelude ADT DEVIN PENA [address] Care Team Providers Care Pulverizer Tender Name Role Phone Unavailable Primary Care Provider [...] Coronavirus/COVID-19? No / Unsure 07/12/2022 2:01 PM HUB ASSOCIATE documented as of this encounter Plan of Treatment Not on file documented as of this encounter Visit Diagnoses Not on filedocumented in this encounter
--- OUTSIDE RECORDS SUMMARY | 2024-06-06 05:21 | XMS_ITS | Encounter Summary ---
Author Organization [facility] Address [address] [place] [address] Care Team Providers Care Tire Adjuster Name Role Phone Unavailable Primary Care Provider [...]
--- OUTSIDE RECORDS SUMMARY | 2024-06-06 05:21 | XMS_ITS | Encounter Summary ---
Author Organization [facility] Address [address] [place] [address] Care Team Providers Care Funeral Service Practitioner/Embalmer Name Role Phone Unavailable Primary Care Provider [...]
--- OUTSIDE RECORDS SUMMARY | 2024-06-06 05:21 | XMS_ITS | Encounter Summary ---
Author Organization [facility] Address [address] [place] [address] Care Team Providers Care Clerk Of Court Name Role Phone Unavailable Primary Care Provider [...]
--- OUTSIDE RECORDS SUMMARY | 2024-06-06 05:21 | XMS_ITS | Encounter Summary ---
Author Organization [facility] Address [address] [place] [address] Care Team Providers Care Buggy Man Name Role Phone Unavailable Primary Care Provider [...]
--- OUTSIDE RECORDS SUMMARY | 2024-06-06 05:21 | XMS_ITS | Encounter Summary ---
Author Organization [facility] Address [address] [place] [address] Care Team Providers Care Equipment Validation Engineer Name Role Phone Unavailable Primary Care [...]
--- OUTSIDE RECORDS SUMMARY | 2024-06-06 05:21 | XMS_ITS | Encounter Summary ---
Author Organization [facility] Address [address] [place] [address] Care Team Providers Care Vocational Evaluator Name Role Phone Unavailable Primary Care Provider [...]
--- OUTSIDE RECORDS SUMMARY | 2024-06-06 05:21 | XMS_ITS | Clinical Summary ---
Author Organization [facility] Address [address] [place] [address] Phone Care Team Providers Care Italian Teacher Name Role Phone Unavailable Primary Care [...] Comments Blood Pressure 120/66 07/12/2022 2:09 PM QUILLER HAND Pulse - - Temperature - - Respiratory Rate - - Oxygen Saturation - - Inhaled Oxygen Concentration - - Weight 122.9 kg (271 lb) 07/12/2022 2:09 PM QUILLER HAND Height 162.6 cm (5' 4 ) 07/12/2022 2:09 PM QUILLER HAND Body Mass Index 46.52 07/12/2022 2:09 PM QUILLER HAND Plan of Treatment Health Maintenance Due Date [...]
--- OUTSIDE RECORDS SUMMARY | 2024-06-06 05:21 | XMS_ITS | Encounter Summary ---
Author Organization [facility] Address [address] [place] [address] Care Team Providers Care Accounting File Clerk Name Role Phone Unavailable Primary Care Provider Unavailabl e Reason for Visit * Reason Onset Date Comments Needs Appointment 07/10/2022 Encounter Details Date Type Department Care Team (Late st Contact Info) Description 07/10/2022 Telephone [facility] [address] [address] Leny Garcia MD [address] [place] [address] Needs Appointment Social History Tobacco [...] Fiordaliza Veloz NP - 07/10/2022 3:21 PM ASSEMBLY TECHNICIAN Pt states ovarian cyst was found in ER. She denies pain. Torsion precautions given. Advised patient to schedule pelvic ultrasound in 6 to 8 weeks in office to see if resolved. All questions answered patient verbalized understanding MBLY TECHNICIAN * Telephone Encounter - Fernando Braun - 07/10/2022 3:06 PM CST [facility] Dr. Garcia. She was seen for abdominal pain and they stated she had an ovarian cyst. She is out of office for next week. Sending message tosee when pt can schedule appointment. MBLY TECHNICIAN documented in this encounter Plan of Treatment Not on file documented as of this encounter Visit Diagnoses Not on filedocumented in this encounter
--- OUTSIDE RECORDS SUMMARY | 2024-06-06 05:21 | XMS_ITS | Encounter Summary ---
Author Organization [facility] Address [address] [place]man: Epic Prelude ADT DEVIN [place] [address] Care Team Providers Care Pullman Car Clerk Name Role Phone Unavailable Primary Care [...]
--- OUTSIDE RECORDS SUMMARY | 2024-06-06 05:22 | XMS_ITS | Encounter Summary ---
Author Organization [facility] Address [address] [place] [address] Care Team Providers Care Lining Printer Name Role Phone No, Physician Unavailable Lorie Vanessa NP Primary Care Provider [phone] Encounter Details Date Type Department Care Team (Late st Contact Info) Description 03/19/2024 Telephone [facility] [place] [address] [place] [address] [address] [place] [address] Lorie Vanessa NP [facility] [address] [address] Social History Tobacco Use Types [...] on file Legal Sex Female 6:55 PM FIBERGLASS BONDING MACHINE TENDER Gender Identity Female 06/06/2022 7:40 AM FIBERGLASS BONDING MACHINE TENDER Sexual Orientation Not on file documented as of this encounter Miscellaneous Notes * Telephone Encounter - Blanca Chopra - 03/19/2024 8:07 AM CDT Error/ts documented in this encounter Plan of Treatment Not on file documented as of this encounter Visit Diagnoses Not on filedocumented in this encounter Care Teams Lining Printer Relationship Specialty Start Date End Date Lorie Vanessa NP [address] [place] [address] PCP - General Family Practice 05/29/22 No, Physician 06/08/21 documented as of this encounter
--- OUTSIDE RECORDS SUMMARY | 2024-06-06 05:22 | XMS_ITS | Encounter Summary ---
Author Organization [facility] Address [address] [place] [address] Care Team Providers Care Leadership Coach Name Role Phone No, Physician Unavailable Lorie Vanessa NP Primary Care Provider [phone] Encounter Details Date Type Department Care Team (Late st Contact Info) Description 03/20/2024 Telephone [facility] [place] [address] [place] [address] [address] [place] [address] Lorie Vanessa NP [facility] [address] [address] Social History Tobacco Use Types [...] on file Legal Sex Female 6:55 PM IT DESKTOP SUPPORT TECHNICIAN Gender Identity Female 06/06/2022 7:40 AM IT DESKTOP SUPPORT TECHNICIAN Sexual Orientation Not on file documented as of this encounter Miscellaneous Notes * Telephone Encounter - Lorie Vanessa NP - 03/20/2024 8:51 AM CDT Recommended patient schedule appointment to address concerns not on problem list documented in this encounter Plan of Treatment Not on file documented as of this encounter Visit Diagnoses Not on filedocumented in this encounter Care Teams Leadership Coach Relationship Specialty Start Date End Date Lorie Vanessa NP [address] [place] [address] PCP - General Family Practice 05/29/22 No, Physician 06/08/21 documented as of this encounter
--- OUTSIDE RECORDS SUMMARY | 2024-06-06 05:22 | XMS_ITS | Clinical Summary ---
Author Organization [facility] Address [address] [place] [address] Care Team Providers Care Bowling Ball Mold Assembler Name Role Phone No, Physician Unavailable Lorie Vanessa NP Primary Care Provider [phone] Allergies Active Allergy Reactions Criticality Noted Date [...] 04/13/2024 Assessment & Plan (04/13/2024 10:32 AM SLAG PRODUCTION WORKER): Recent onset/acute Referral made to neurology for further evaluation and management Fatigue 04/13/2024 Assessment & Plan (04/13/2024 10:33 AM SLAG PRODUCTION WORKER): Recent onset, likely multifactorial, currently, diagnosed with bronchitis states is improving Reviewed TSH level done in 09/2023 and most recent ER lab work from 03/16/24 Will monitor for stability Blurry vision 04/13/2024 Assessment & Plan (04/13/2024 10:34 AM SLAG PRODUCTION WORKER): Recent onset Encouraged to schedule an appointment with eye doctor and referral made to Neurology for further evaluation and management Low back pain 07/16/2023 Upper respiratory infection with cough and conge stion 05/31/2023 Assessment & Plan (05/31/2023 7:26 AM SLAG PRODUCTION WORKER): Instructed to increase clear liquids, rest, and vitamin C in diet. Advised to sleep with head elevated and use a cool mist vaporizer and Vicks VapoRub at bedtime for cough and congestion. Recommended follow-up if symptoms don't resolve, ER for new or worsening symptoms. Body aches 05/31/2023 Assessment & Plan (05/31/2023 7:27 AM SLAG PRODUCTION WORKER): COVID-19, influenza, and RSV test were negative, see plan of care for upper respiratory infection with cough and congestion. Cough 05/31/2023 Assessment & Plan (05/31/2023 7:27 AM SLAG PRODUCTION WORKER): COVID-19, influenza, and RSV test were [...] 12/12/2022 Assessment & Plan (04/13/2024 10:30 AM SLAG PRODUCTION WORKER): Chronic, improved Encouraged to: Make healthy [...] heat and/or ice. Informed can also use pcum-rsq-glduxpw lidocaine patches OR topical analgesic creams as [...] heat and/or ice. Informed can also use gjga-yig-vonaddg lidocaine patches OR topical analgesic creams as directed as needed, but NOT with heat or ice. Instructed that further recommendations will depend on outcome of xrays. Constipation 08/21/2022 Assessment & Plan (12/12/2022 5:37 AM CDT): Chronic, stable-encouraged diet high in fiber, 20-30 g per day. Advised to keep scheduled appointment for EGD/colonoscopy with solution coordinator, Dr. Thomas. Assessment & Plan (08/21/2022 8:42 AM CDT): Worsening constipation over the past few years. -high-fiber diet -MiraLax OTC daily p.r.n. Diarrhea 08/21/2022 Assessment & Plan (12/12/2022 5:37 AM CDT): Chronic, stable-encouraged diet high in fiber, 20-30 g per day. Advised to keep scheduled appointment for EGD/colonoscopy with solution coordinator, Dr. Thomas. Assessment & Plan (08/21/2022 8:41 [...] appointment for EGD/colonoscopy and to follow-up with solution coordinator, Dr. Thomas, as recommended. Assessment & Plan (07/11/2022 5:53 PM SLAG PRODUCTION WORKER): Go to ER for further evaluation of your right upper abdominal pain. Amenorrhea 06/09/2022 Assessment & Plan (12/12/2022 5:36 AM CDT): Chronic-encouraged to keep appointment with mental health program director, Dr. Lin, on 01/11/2023. Assessment & Plan (06/09/2022 2:34 PM SLAG PRODUCTION WORKER): Acute-ordered serum test. Nausea 04/15/2022 Assessment & Plan (12/12/2022 5:41 AM CDT): Chronic, stable-continued on Zofran as directed as needed, refills sent to pharmacy per patient request. Encouraged to keep scheduled appointment for EGD and to follow-up with solution coordinator, Dr. Thomas, as recommended. Assessment & Plan (08/21/2022 8:41 AM CDT): Chronic nausea and vomiting, not improved with PPI or Zofran. -we will order ultrasound as above -EGD as above Assessment & Plan (06/09/2022 2:30 PM SLAG PRODUCTION WORKER): Chronic, uncontrolled, despite starting treatment with Protonix 40 mg once daily-increased Protonix to 40 mg twice daily, new prescription sent to pharmacy along with a refill for Zofran per your request. A urine test has been ordered. Assessment & Plan (04/15/2022 11:47 AM SLAG PRODUCTION WORKER): Chronicity and stability unknown-prescribed pantoprazole once daily in morning 1/2 hour before mealtime. Advised to get fasting lab work done. Referred to gastroenterology, number provided to call and schedule appointment. Frequent infections 04/15/2022 Assessment & Plan (12/12/2022 5:39 AM CDT): Chronic, stable-continued on Augmentin, cetirizine, and Flonase per candy maker, considering SCIT. Encouraged to follow-up with personnel and payroll technician as recommended. Assessment & Plan (06/09/2022 2:33 PM SLAG PRODUCTION WORKER): Currently asymptomatic-reviewed strep pneumoniae antibody serotypes, immune to 12/23 types tested-recommended Pneumovax 23, given today. Advised if continues to get sick frequently after vaccination, can draw a post-vaccine titer to assess immune response to vaccination and/or refer to personnel and payroll technician. Assessment & Plan (04/15/2022 11:48 AM SLAG PRODUCTION WORKER): Chronic, recurrent upper respiratory infections and gastrointestinal problems- ordered strep pneumoniae antibody serotype test. Tachycardia, unspecified 04/15/2022 Assessment & Plan (12/12/2022 5:42 AM CDT): Chronic, improved/controlled on medication-continued on propranolol per cardiology. Encouraged to follow-up with tufting machine operator single needle as recommended. Assessment & Plan (06/09/2022 2:30 PM SLAG PRODUCTION WORKER): Chronicity and stability unknown, heart rate 75 beats per minute and regular at today's visit-encouraged to keep scheduled appointment with tufting machine operator single needle. Assessment & Plan (04/15/2022 11:52 AM SLAG PRODUCTION WORKER): Chronicity and stability unknown, with increase [...] recent lab work. Encouraged to follow-up with tufting machine operator single needle as recommended. Assessment & Plan (07/11/2022 5:53 PM SLAG PRODUCTION WORKER): Go to ER for further evaluation of your dizziness/pre-syncopal episodes. Assessment & Plan (04/15/2022 11:52 AM SLAG PRODUCTION WORKER): Recent onset, occurs with standing, with [...] position. Assessment & Plan (04/15/2022 11:47 AM SLAG PRODUCTION WORKER): Chronicity and stability unknown, with 20 point drop in systolic from lying to standing-advised to get fasting lab work done. Referred to cardiology, number provided to call and schedule appointment. Hemorrhoids 04/15/2022 Overview (01/09/2023): Internal Assessment & Plan (12/12/2022 5:40 AM CDT): Chronic, currently asymptomatic-encouraged to keep scheduled appointment for colonoscopy and to follow-up with solution coordinator, Dr. Thomas, as recommended. GALEANO (dyspnea on exertion) 04/15/2022 Assessment & Plan (12/12/2022 5:39 AM CDT): Chronic, stable-will monitor for worsening symptoms and can pursue additional testing/refer to pulmonology if/when needed. Assessment & Plan (04/15/2022 11:43 AM SLAG PRODUCTION WORKER): Chronic, episodic, relieved with inhaler-refill for albuterol MDI sent to pharmacy per patient request. PCOS (polycystic ovarian syndrome) 07/02/2018 Assessment & Plan (12/12/2022 5:41 AM CDT): Chronic-encouraged to keep appointment with mental health program director, Dr. Lin, on 01/11/2023. Resolved Problems Problem [...] heat and/or ice. Informed can also use awmw-dov-higvqfg lidocaine patches OR topical analgesic creams as [...] heat and/or ice. Informed can also use xoum-jvt-ignfgxf lidocaine patches OR topical analgesic creams as [...] heat and/or ice. Informed can also use mukv-irs-yssyzvl lidocaine patches OR topical analgesic creams as [...] heat and/or ice. Informed can also use tzef-dry-oszlnsw lidocaine patches OR topical analgesic creams as directed as needed, but NOT with heat or ice. Instructed that further recommendations will depend on outcome of xrays. Left lower quadrant pain 07/11/2022 Assessment & Plan (07/11/2022 5:53 PM SLAG PRODUCTION WORKER): Go to ER for further evaluation of your left lower abdominal pain. Need for vaccination 06/09/2022 023 Assessment & Plan (06/09/2022 2:34 PM SLAG PRODUCTION WORKER): Reviewed strep pneumoniae antibody serotypes, immune to 12/23 types tested-recommended Pneumovax 23, given today, also given Tdap, due. Advised if continues to get sick frequently after vaccination, can draw a post-vaccine titer to assess immune response to vaccination and/or refer to personnel and payroll technician. Abrasion of neck 06/09/2022 12/11/2022 Assessment & Plan (06/09/2022 2:53 PM SLAG PRODUCTION WORKER): Acute-instructed to apply triple antibiotic ointment as directed as needed and avoid picking at area. Ingrown right big toenail 04/15/2022 Assessment & Plan (04/15/2022 11:47 AM SLAG PRODUCTION WORKER): Acute-prescribed cephalexin 500 mg BID x [...] done. Assessment & Plan (06/09/2022 2:29 PM SLAG PRODUCTION WORKER): Chronicity unknown, resolved with Protonix, however epigastric area tender upon palpation-increase Protonix to 40 mg twice daily. Encouraged to keep scheduled appointment with solution coordinator. Assessment & Plan (04/15/2022 11:45 AM SLAG PRODUCTION WORKER): Chronicity and stability unknown-prescribed pantoprazole once daily in morning 1/2 hour before mealtime. Advised to get fasting lab work done. Referred to gastroenterology, number provided to call and schedule appointment. Morbid obesity with BMI of 45.0-49.9, adult 04/15/2022 12/12/2022 Assessment & Plan (12/12/2022 5:43 AM CDT): Preop cardiovascular exam 04/15/2022 Assessment & Plan (04/15/2022 11:49 AM SLAG PRODUCTION WORKER): Reviewed past and current medical history, [...] Department Care Team Description 05/25/2024 3:00 PM SLAG PRODUCTION WORKER Office Visit [facility] at [address] [phone] Brittany Frances NP Rash and nonspecific skin eruption (Primary Dx) 05/13/2024 2:00 PM SLAG PRODUCTION WORKER Office Visit [facility] at [address] [place] [phone] Collin Valdez MD Class 3 severe obesity due to excess calories without serious comorbidity with body mass index (BMI) of 50.0 to 59.9 in adult (HCC) (Primary Dx) 04/14/2024 Orders Only [facility] [facility] [address] [place] [id number] Scanning, Provider 04/13/2024 10:00 AM SLAG PRODUCTION WORKER Telemedicine [facility] at [address] [place] [phone] Lorie Vanessa NP Increased frequency of headaches (Primary Dx); Fatigue, unspecified type; Encounter for hepatitis C screening test for low risk patient; Class 3 severe obesity due to excess calories without serious comorbidity with body mass index (BMI) of 50.0 to 59.9 in adult (HCC); Blurry vision 04/13/2024 Patient Self-Triage [facility] [address] [place] [id number] Mychart, Generic Provider 04/03/2024 Patient Self-Triage [facility] [address] [place] [id number] Mychart, Generic Provider 03/27/2024 Patient Self-Triage [facility] [address] [place] [address] Mychart, Generic Provider 03/20/2024 Telephone [facility] at [address] [place] [phone] Lorie Vanessa NP 03/19/2024 Telephone [facility] [place] [address] [facility] [address] [place] [phone] Lorie Vanessa NP 03/16/2024 2:29 AM CDT - 03/16/2024 6:22 AM CDT Emergency [facility] Emergency Department [address] [place] [address] David Mishra Jr., MD Diarrhea, unspecified type [...] on file Legal Sex Female 6:55 PM SLAG PRODUCTION WORKER Gender Identity Female 06/06/2022 7:40 AM SLAG PRODUCTION WORKER Sexual Orientation Not on file Obstetrics History Para Term AB IAB SAB Ectopic Multiple Livin g Live Births 0 0 0 0 0 0 0 0 0 0 0 Last Filed Vital Signs Vital Sign Reading Time Taken Comments Blood Pressure 122/78 05/25/2024 3:08 PM SLAG PRODUCTION WORKER Pulse 114 05/25/2024 3:08 PM SLAG PRODUCTION WORKER Temperature 36.8 ??C (98.2 ??F) 05/25/2024 3:08 PM CS T Respiratory Rate 24 05/25/2024 3:08 PM SLAG PRODUCTION WORKER Oxygen Saturation 99% 05/25/2024 3:08 PM SLAG PRODUCTION WORKER Inhaled Oxygen Concentration - - Weight 155.6 kg (343 lb) 05/25/2024 3:08 PM SLAG PRODUCTION WORKER Height 162.6 cm (5' 4 ) 05/13/2024 1:57 PM SLAG PRODUCTION WORKER Body Mass Index 58.88 05/13/2024 1:57 PM SLAG PRODUCTION WORKER Plan of Treatment Health Maintenance Due Date [...] Comments SCAN - RADIOLOGY/IMAGING 04/14/2024 9:17 PM SLAG PRODUCTION WORKER LEUKOCYTES, FECAL Routine 03/16/2024 6:1 3 [...] HIGH RISK HPV Routine 05/17/2023 11:10 AM SLAG PRODUCTION WORKER Well woman exam from Last 3 Months or Most Recently Relevant to Health Maintenance Results * SCAN - RADIOLOGY/IMAGING (04/14/2024 9:17 PM SLAG PRODUCTION WORKER) Anatomical Region Laterality Modality Other us Provider Scanning Final Result * Leukocytes, fecal (03/16/2024 6:13 AM CDT) WBC, fecal No leukocytes No leukocytes Comment: Interpretive Data Testing performed by microsopy. Current Interpretive Data was last revised on 2022 Testing performed by: [facility], [address] [place] [address]., [id number] Stool 03/16/2024 6:13 AM CDT 03/16/2024 1:26 PM CDT David Mishra Jr., MD LAB BODY FLUIDS AND STO OLS ORDERABLES Final Result FRAN [address] [facility] Department [place] [address] * Stool culture Stool Rectum (03/16/2024 6:13 AM CDT) Direct Specimen Exam Shiga Toxin Testing: Antigen detection assay for Shiga-toxin NEGATIVE for Shiga Toxin 1 and Shiga Toxin 2. Comment:Testing performed by : [facility], [address] [place] [address], [place]., [id number] Report Final Report: No growth of enteric bacterial pathogens FRAN Comment:Testing performed by : [facility], [address] [place] [address]., [address] Stool (Rectum) 03/16/2024 6: 13 AM CDT 03/16/2024 1:23 PM CDT Narrative FRAN HAYS - 03/20/2024 9:50 AM CDT Testing performed by [facility] ([phone]). Routine stool cultures include procedures to detect Salmonella, Shigella, Edwardsiella, Aeromonas, Pleisiomonas, Campylobacter, Yersinia, E. coli O157, and Shiga-like toxins. ?? Vibrio is cultured only upon special request. ??If Vibrio is suspected, please call the laboratory at [phone]. Interpretive data was last updated October 01, 2016. us David Mishra Jr., MD LAB MICROBIOLOGY - GENE RAL ORDERABLES Final Result FRAN [address] [facility] [place] [address] * CT Abdomen Pelvis W Contrast (03/16/2024 [...] AM T: ??03/16/2024 3:23 AM Report ID: [id number] Reading Location: ??[id number] Procedure Note Juany Salcido MD - 03/16/2024 [...] by Juany Salcido M.D. SN: Report ID: [id number] Reading Location: [place] [address] David Mishra Jr., MD IMG CT PROCEDURES Final Result * POCT hCG, urine (03/16/2024 1:46 AM CDT) Pathologist [facility] HCG, ur, POC Negative Negative Lot Number [id number] QC Backgroud Clear Acceptable QC Control Line Acceptable Urine 03/16/2024 1:46 AM CDT David Mishra Jr., MD POINT OF CARE TEST ORDE RABLES Final Result * (ABNORMAL) Urinalysis reflex to microscopic and culture Urine (03/16/2024 1:43 AM CDT) Color, ur Yellow Yellow Comment:Testing performed by : [facility], [address] [place] [address]., [address] Clarity, ur Clear Clear CERNER Comment:Testing performed by : [address] [address] Specific gravity, ur 1.012 1.003 - 1.030 FRAN Comment:Testing performed by : [address] [address] pH, urine 5.0 FRAN Comment: Interpretive Data ? Urine pH is affected by diet, medications, systemic acid-base disturbances, and renal tubular function. ??pH may affect urinary stone formation. ??For example, urine pH below 6.0 may help reduce the tendency for calcium phosphate stones and pH greater than 6.0 may reduce the tendency for uric acid stone formation. Source: [facility] [employer] Current Interpretive Data was last revised on 2017 Testing performed by: [address] [address] Protein, ur ql Negative Negative FRAN Comment:Testing performed by : [address] [address] Glucose, ur ql Negative Negative FRAN Comment:Testing performed by : [address] [address] Ketones, ur Negative Negative FRAN Comment:Testing performed by : [address] [address] Bilirubin, ur Negative Negative FRAN Comment:Testing performed by : [address] [address] Blood, ur Trace(A) Negative FRAN Comment:Testing performed by : [address] [address] Urobilinogen, ur <2.0 <2.0 mg/dL FRAN Comment:Testing performed by : [address] [address] Nitrite, ur Negative Negative FRAN Comment:Testing performed by : [address] [address] Leukocyte esterase, ur Negative Negative FRAN Comment:Testing performed by : [address] [address] UA reflex comment Reflex to microscopic UA will be performed. FRAN Comment:Testing performed by : [address] [address] Urine 03/16/2024 1:43 AM CDT 03/16/2024 1:54 AM CDT David Mishra Jr., MD LAB MICROBIOLOGY - GENE RAL ORDERABLES Final Result Performing Organization Address [facility] Co de Phone Number FRAN [address] [place] [address] * (ABNORMAL) Urinalysis, microscopic only (03/16/2024 1:43 AM CDT) WBC, ur 0-5 0 - 5 /HPF Comment:Testing performed by : [facility], [address] [place] [address]., [address] RBC, ur 0-2 0 - 2 /HPF FRAN Comment:Testing performed by : [address] [address] Epithelial cells, squamous, ur 1-5 0 - 5 /HPF FRAN Comment:Testing performed by : [address] [address] Bacteria, ur Trace(A) FRAN Comment:Testing performed by : [address] [address] Mucous, ur Present(A) FRAN Comment:Testing performed by : [address] [address] Culture Reflex Comment Reflex conditions for urine culture (WBC >10) not met. FRAN Comment:Testing performed by : [address] [address] Urine 03/16/2024 1:43 AM CDT 03/16/2024 1:54 AM CDT David Mishra Jr., MD LAB URINE ORDERABLES Fi nal Result Performing Organization Address [facility]/ZIP Co de Phone Number FRAN [facility] [address] * eGFR (03/16/2024 1:26 AM CDT) eGFR [...] was last reviewed 2021. Testing performed by: [facility], [address] [place] [address]., [address] Blood 03/16/2024 1:26 AM CDT 03/16/2024 1:44 AM CDT us David Mishra Jr., MD LAB BLOOD ORDERABLES Fi nal Result [facility] [id number] [facility] Department [place] [address] * (ABNORMAL) Differential, auto (03/16/2024 1:26 AM CDT) Pathologist [facility] Neutrophil abs 9.0(H) 1.5 - 6.5 K/cumm Comment:Testing performed by : [address] [address] Imm gran abs 0.1 0.0 - 0.1 K/cumm FRAN Comment:Testing performed by : [address] [address] Lymphocyte abs 3.0 0.8 - 3.3 K/cumm [facility] Comment:Testing performed by : [address] [address] Monocyte abs 0.9(H) 0.2 - 0.8 K/cumm [facility] Comment:Testing performed by : [address], [place]., [address] Eosinophil abs 0.3 0.0 - 0.5 K/cumm [facility] Comment:Testing performed by : [address] [address] Basophil abs 0.1 0.0 - 0.1 K/cumm [facility] Comment:Testing performed by : [address] [address] Neutrophil pct 67.1 % [facility] Comment: Interpretive Data Percent cell count reference ranges are not reported, since discordance with absolute values may lead to misinterpretation of CBC data. Current Interpretive Data was last revised on 2017. Testing performed by: [address] [address] Imm gran pct 1.0 % [facility] Comment: Interpretive Data Percent cell count reference ranges are not reported, since discordance with absolute values may lead to misinterpretation of CBC data. Current Interpretive Data was last revised on 2017. Testing performed by: [address] [address] Lymphocyte pct 22.2 % CERNER Comment: Interpretive Data Percent cell count reference ranges are not reported, since discordance with absolute values may lead to misinterpretation of CBC data. Current Interpretive Data was last revised on 2017. Testing performed by: [address] [address] Monocyte pct 6.8 % CERNER Comment: Interpretive Data Percent cell count reference ranges are not reported, since discordance with absolute values may lead to misinterpretation of CBC data. Current Interpretive Data was last revised on 2017. Testing performed by: [address] [address] Eosinophil pct 2.2 % FRAN Comment: Interpretive Data Percent cell count reference ranges are not reported, since discordance with absolute values may lead to misinterpretation of CBC data. Current Interpretive Data was last revised on 2017. Testing performed by: [address] [address] Basophil pct 0.7 % FRAN Comment: Interpretive Data Percent cell count reference ranges are not reported, since discordance with absolute values may lead to misinterpretation of CBC data. Current Interpretive Data was last revised on 2017. Testing performed by: [address] [address] Blood 03/16/2024 1:26 AM CDT 03/16/2024 1:44 AM CDT us David Mishra Jr., MD LAB BLOOD ORDERABLES Fi nal Result [facility] [address] [facility] Department of Laboratories [place], [place] [id number] * (ABNORMAL) CBC with auto differential (03/16/2024 1:26 AM CDT) [facility] WBC 13.3(H) 3.8 - 9.9 K/cumm Comment:Testing performed by : [address] [address] Hgb 13.5 11.9 - 15.5 g/dL FRAN Comment:Testing performed by : [address] [address] Hct 42.1 35.6 - 45.5 % FRAN Comment:Testing performed by : [address] [address] Plt 432(H) 150 - 400 K/cumm FRAN Comment:Testing performed by : [address] [address] MPV 9.0(L) 9.1 - 12.3 fL FRAN HAYS Comment:Testing performed by : [address], [address] RBC 5.15 3.90 - 5.20 M/cumm FRAN HAYS Comment:Testing performed by : [address] [address] MCV 81.7 81.3 - 96.4 fL FRAN HAYS Comment:Testing performed by : [address] [address] MCH 26.2(L) 27.1 - 33.3 pg FRAN HAYS Comment:Testing performed by : [address], [address] MCHC 32.1(L) 32.3 - 35.7 g/dL FRAN HAYS Comment:Testing performed by : [address], [address] RDW CV 13.5 11.1 - 14.9 % FRAN HAYS Comment:Testing performed by : [address], [address] RDW SD 39.8 35.7 - 48.1 fL FRAN Comment:Testing performed by : [address], [address] NRBC abs 0.00 0.00 - 0.01 K/cumm FRAN HAYS Comment:Testing performed by : [address], [address] Blood (Blood, Venous) 03/16/2024 1:26 AM CDT 03/16/2024 1:44 AM CDT us David Mishra Jr., MD LAB BLOOD ORDERABLES Fi nal Result FRAN [address] [facility] Department [place] [address] * Lipase (03/16/2024 1:26 AM CDT) [facility] Lipase 25 10 - 99 Units/L Comment:Testing performed by : [address] [address] Blood (Blood, Venous) 03/16/2024 1:26 AM CDT 03/16/2024 1:44 AM CDT David Mishra Jr., MD LAB BLOOD ORDERABLES Fi nal Result [facility] [address] [facility] Department [place] [address] * (ABNORMAL) Comprehensive metabolic panel (03/16/2024 1:26 AM CDT) Sodium 138 135 - 145 mmol/L Comment:Testing performed by : [address] [address] Potassium, pl 3.8 3.3 - 4.9 mmol/L FRAN Comment:Testing performed by : [address] [address] Chloride 103 97 - 110 mmol/L FRAN Comment:Testing performed by : [address] [address] CO2 21(L) 22 - 32 mmol/L FRAN Comment:Testing performed by : [address] [address] Anion gap 14 2 - 15 mmol/L FRAN Comment:Testing performed by : [address] [address] BUN 8 6 - 25 mg/dL FRAN Comment:Testing performed by : [address] [address] Creatinine 0.70 0.60 - 1.10 mg/dL FRAN Comment:Testing performed by : [address] [address] Glucose 94 70 - 199 mg/dL FRAN [...] was last revised 2022. Testing performed by: [facility], [address] [place] [address]., [address] Calcium 9.4 8.5 - 10.3 mg/dL FRAN Comment:Testing performed by : [address] [address] Bilirubin, total 0.4 0.1 - 1.2 mg/dL FRAN Comment:Testing performed by : [address] [address] Protein, pl 7.9 6.5 - 8.5 g/dL FRAN Comment:Testing performed by : [address] [address] Albumin 4.4 3.5 - 5.0 g/dL [facility] Comment:Testing performed by : [address] [address] Alk phos 111 40 - 130 Units/L [facility] Comment:Testing performed by : [address] [address] ALT 19 7 - 45 Units/L [facility] Comment:Testing performed by : [address] [address] AST 23 10 - 45 Units/L [facility] Comment:Testing performed by : [address] [address] Blood 03/16/2024 1:26 AM CDT 03/16/2024 1:44 AM CDT us David Mishra Jr., MD LAB BLOOD ORDERABLES Fi nal Result [facility] [address] [facility] Department of Laboratories [place], [place] [id number] * Pap with reflex to High Risk HPV and Genotyping (Cytology Component) (05/17/2023 11:10 AM SLAG PRODUCTION WORKER) Endocervical (Pap test) 05/17/2023 11:10 AM SLAG PRODUCTION WORKER 05/19/2023 11:35 PM SLAG PRODUCTION WORKER Narrative PATHOLOGY [facility] - 05/23/2023 5:10 PM SLAG PRODUCTION WORKER EPIC results best viewed via link to PDF [facility] Madina [facility] [place] [address] Note to Patients: This report may contain [...] Gender: ??F : ??1995 (Age: 27) Address: ??[address] [place] [address] Hospital #: ??[id number] Service: ??DEFAULT Location: ?? Patient Type: ??[facility] SPECIMEN Taken: ??05/17/2023 Received: ??05/19/2023 Accessioned: [...] clinical information and biopsy results as indicated. [facility] Clinical Laboratory Improvement Amendments (CLIA) mandate that cytologic and histologic results be correlated for laboratory research associate quality control qc & improvement standards. ??FOR ALL HIGH-GRADE CASES [...] determined by the Surgical Pathology Department at [facility] as part of an ongoing research associate quality control qc program and in compliance with federally mandated [...] determined by the Surgical Pathology Department of [facility]. ??It has not been cleared or approved by the U. S. Food and Drug Administration. Sita Lin MD LAB CYTOLOGY ORDERABLES Magda moreau Result PATHOLOGY [facility] from Last 3 Months or Most Recently Relevant to Health Maintenance Insurance [employer] Address: [address] [place] [address] [employer] Address: [address] [place] [address] [employer] Address: [address] [place] [address] [facility] [place] [address] [facility] Care Teams Bowling Ball Mold Assembler Relationship Specialty Start Date End Date Lorie Vanessa NP [address] [place] [address] PCP - General Family Practice 05/29/22 No, Physician 06/08/21
--- OUTSIDE RECORDS SUMMARY | 2024-06-06 05:22 | XMS_ITS | Encounter Summary ---
Author Organization [facility] Healthcare Address [address] [place] [address] Care Team Providers Care Lead Qa Analyst Name Role Phone No, Physician Unavailable Lorie Vanessa NP Primary Care Provider [phone] Reason for Visit * Reason Comments weight/obesity management Encounter Details Date Type Department Care Team (Late st Contact Info) Description 05/13/2024 2:00 PM MONOGRAM MAKER Office Visit [facility] Medical Group Family Medicine at [address] [place] [address] Collin Valdez MD [address] [place] [address] [address] [place] [address] Class 3 severe obesity due [...] on file Legal Sex Female 6:55 PM MONOGRAM MAKER Gender Identity Female 06/06/2022 7:40 AM MONOGRAM MAKER Sexual Orientation Not on file documented as of this encounter Last Filed Vital Signs Vital Sign Reading Time Taken Comments Blood Pressure 128/79 05/13/2024 1:57 PM MONOGRAM MAKER Pulse 88 05/13/2024 1:57 PM MONOGRAM MAKER Temperature 36.2 ??C (97.2 ??F) 05/13/2024 1:57 PM CS T Respiratory Rate 18 05/13/2024 1:57 PM MONOGRAM MAKER Oxygen Saturation 97% 05/13/2024 1:57 PM MONOGRAM MAKER Inhaled Oxygen Concentration - - Weight 157.9 kg (348 lb 1.6 oz) 05/13/2024 1:57 PM MONOGRAM MAKER Height 162.6 cm (5' 4 ) 05/13/2024 1:57 PM MONOGRAM MAKER Body Mass Index 59.75 05/13/2024 1:57 PM MONOGRAM MAKER documented in this encounter Ordered Prescriptions Prescription [...] and Daily Steps [place] about 5000 to [address] Past Medical History: Diagnosis Date Anxiety 2017 [...] (37.5 mg total) by mouth daily before [id number] tablet 1 promethazine-DM (PROMETHAZINE-DM) 1.25-3 mg/mL syrup [...] (BMI) of 50.0 to 59.9 in adult ([facility]) (Primary) Comments: Chronic. Uncontrolled. Goal: 150lb. Start Phentermine. Recommnd seminar Orders: - phentermine (ADIPEX-P) 37.5 mg tablet; Take 1 tablet (37.5 mg total) by mouth daily before breakfast Body mass index is 59.75 kg/m??. BMI Plan: Nutrition/Activities/Behavioral Counseling. Education Provided. Follow up 1-3 months. Collin Valdez MD GRAM MAKER documented in this encounter Plan of Treatment Not on file documented as of this encounter Visit Diagnoses Diagnosis Class 3 severe obesity due to excess calories without serious comorbidity with body mass index (BMI) of 50.0 to 59.9 in adult ([facility])- Primary documented in this encounter Care Teams Lead Qa Analyst Relationship Specialty Start Date End Date Lorie Vanessa NP [address] [place] [address] PCP - General Family Practice 05/29/22 No, Physician 06/08/21 documented as of this encounter
--- OUTSIDE RECORDS SUMMARY | 2024-06-06 05:22 | XMS_ITS | Encounter Summary ---
Author Organization [facility] Address [address] [place] [address] Care Team Providers Care Garnett Machine Operator Name Role Phone Unavailable Primary Care Provider Unavailabl e Reason for Visit * Reason Comments Well Woman Exam NEW PT. Discuss PCOS and fertility Encounter Details Date Type Department Care Team (Latest Contact Info) Description 01/24/2022 2:00 PM CDT Office Visit [facility] [address] [address] Leny Garcia MD [address] [place] [address] Encounter for gynecological examination with [...]
--- OUTSIDE RECORDS SUMMARY | 2024-06-06 05:22 | XMS_ITS | Encounter Summary ---
Author Organization [facility] Healthcare Address [address] [place] [address] Care Team Providers Care Linen Checker Name Role Phone No, Physician Unavailable Lorie Vanessa NP Primary Care Provider [phone] Encounter Details Date Type Department Care Team (Late st Contact Info) Description 04/14/2024 Orders Only [facility] Health Information Management [address] [place] [address] Scanning, Provider Social History Tobacco Use Types [...] on file Legal Sex Female 6:55 PM COORDINATOR OF REHABILITATION SERVICES Gender Identity Female 06/06/2022 7:40 AM COORDINATOR OF REHABILITATION SERVICES Sexual Orientation Not on file documented as of this encounter Plan of Treatment Not on file documented as of this encounter Procedures Procedure Name Priority Date/Time Associated Diagnosis Comments SCAN - RADIOLOGY/IMAGING 04/14/2024 9:17 PM COORDINATOR OF REHABILITATION SERVICES documented in this encounter Results * SCAN - RADIOLOGY/IMAGING (04/14/2024 9:17 PM COORDINATOR OF REHABILITATION SERVICES) Anatomical Region Laterality Modality Other us Provider Scanning Final Result documented in this encounter Visit Diagnoses Not on filedocumented in this encounter Care Teams Linen Checker Relationship Specialty Start Date End Date Lorie Vanessa NP [address] [place] [address] PCP - General Family Practice 05/29/22 No, Physician 06/08/21 documented as of this encounter
--- OUTSIDE RECORDS SUMMARY | 2024-06-06 05:22 | XMS_ITS | Encounter Summary ---
Author Organization [facility] Healthcare Address [address] [place] [address] Care Team Providers Care Highway Painter Helper Name Role Phone No, Physician Unavailable Lorie Vanessa NP Primary Care Provider [phone] Reason for Referral * Consultation (Routine) - Pending Review Specialty Diagnoses / Procedures Referred By Cyn burnett Referred To Contact Dermatology Diagnoses Rash and nonspecific skin eruption Brittany Frances NP [address] [facility] [address] [place] [address] Phone: tel: fax: Miguel Escalera MD [address] [place] [address] Phone: tel: fax: Referral ID Status Reason Start Date Expiration Date Visits Requested Visits Authorized [id number] Pending Review Specialty Services Required 06/24/2025 1 1 Question Answer Please select the performing region: External Order [171] To provider: MIGUEL ESCALERA [[id number]] # of visits: 1 TION TECHNICIAN AIRCRAFT Reason for Visit * Reason Comments Rash Rash on back of legs and both arms. Rash on legs and arms look different. C/o extreme itching. Saw derm on an E visit and tried steroids and antibiotics. Encounter Details Date Type Department Care Team (Late st Contact Info) Description 05/25/2024 3:00 PM AVIATION TECHNICIAN AIRCRAFT Office Visit [facility] Medical Group Convenient Care at [address] [address] Brittany Frances, STREETS AND BUILDINGS DECORATOR [address] [place] [address] [address] [place] [address] Rash and nonspecific skin eruption [...] file Legal Sex Female 6:55 PM AVIATION TECHNICIAN AIRCRAFT Gender Identity Female 06/06/2022 7:40 AM AVIATION TECHNICIAN AIRCRAFT Sexual Orientation Not on file documented as of this encounter Last Filed Vital Signs Vital Sign Reading Time Taken Comments Blood Pressure 122/78 05/25/2024 3:08 PM AVIATION TECHNICIAN AIRCRAFT Pulse 114 05/25/2024 3:08 PM AVIATION TECHNICIAN AIRCRAFT Temperature 36.8 ??C (98.2 ??F) 05/25/2024 3:08 PM CS T Respiratory Rate 24 05/25/2024 3:08 PM AVIATION TECHNICIAN AIRCRAFT Oxygen Saturation 99% 05/25/2024 3:08 PM AVIATION TECHNICIAN AIRCRAFT Inhaled Oxygen Concentration - - Weight 155.6 kg (343 lb) 05/25/2024 3:08 PM AVIATION TECHNICIAN AIRCRAFT Height - - Body Mass Index 58.88 05/13/2024 1:57 PM AVIATION TECHNICIAN AIRCRAFT documented in this encounter Ordered Prescriptions Prescription [...] this encounter Progress Notes * Brittany Frances, STREETS AND BUILDINGS DECORATOR - 05/25/2024 3:00 PM CST Images from [...] ask questions, questions answered. Brittany Frances NP TION TECHNICIAN AIRCRAFT documented in this encounter Plan of Treatment [...] documented as of this encounter Care Teams Highway Painter Helper Relationship Specialty Start Date End Date Lorie Vanessa NP [address] [place] [address] PCP - General Family Practice 05/29/22 No, Physician 06/08/21 documented as of this encounter
--- OUTSIDE RECORDS SUMMARY | 2024-06-06 05:22 | XMS_ITS | Encounter Summary ---
Author Organization [facility] Healthcare Address [address] [place] [address] Care Team Providers Care Price Analyst Name Role Phone No, Physician Unavailable Lorie Vanessa NP Primary Care Provider Encounter Details Date Type Department Care Team (Late st Contact Info) Description 04/03/2024 Patient Self-Triage [facility] HealthCare/ Physicians [address] [place] [address] Mychart, Generic Provider [address] [place] [address] Social History Tobacco Use Types Packs/Day [...] on file Legal Sex Female 6:55 PM OXYGEN EQUIPMENT TECHNICIAN Gender Identity Female 06/06/2022 7:40 AM OXYGEN EQUIPMENT TECHNICIAN Sexual Orientation Not on file documented as of this encounter Plan of Treatment Not on file documented as of this encounter Visit Diagnoses Not on filedocumented in this encounter Care Teams Price Analyst Relationship Specialty Start Date End Date Lorie Vanessa NP [address] [place] [address] PCP - General Family Practice 05/29/22 No, Physician 06/08/21 documented as of this encounter
--- OUTSIDE RECORDS SUMMARY | 2024-06-06 05:22 | XMS_ITS | Encounter Summary ---
Author Organization [facility] Address [address] [place]man: Epic Prelude ADT DEVIN PENA [address] Care Team Providers Care Nuclear Fuels Reclamation Engineer Name Role Phone Unavailable Primary Care [...]
--- OUTSIDE RECORDS SUMMARY | 2024-06-06 05:22 | XMS_ITS | Encounter Summary ---
Author Organization [facility] Healthcare Address [address] [place] [address] Care Team Providers Care Warp Preparer Name Role Phone No, Physician Unavailable Lorie Vanessa NP Primary Care Provider [phone] Encounter Details Date Type Department Care Team (Late st Contact Info) Description 04/13/2024 Patient Self-Triage [facility] HealthCare/ Physicians [address] [place] [address] Mychart, Generic Provider [address] [place] [address] Social History Tobacco Use Types Packs/Day [...] on file Legal Sex Female 6:55 PM GLAZIER STAINED GLASS Gender Identity Female 06/06/2022 7:40 AM GLAZIER STAINED GLASS Sexual Orientation Not on file documented as of this encounter Plan of Treatment Not on file documented as of this encounter Visit Diagnoses Not on filedocumented in this encounter Care Teams Warp Preparer Relationship Specialty Start Date End Date Lorie Vanessa NP [address] [place] [address] PCP - General Family Practice 05/29/22 No, Physician 06/08/21 documented as of this encounter
--- OUTSIDE RECORDS SUMMARY | 2024-06-06 05:22 | XMS_ITS | Encounter Summary ---
Author Organization [facility] Healthcare Address [address] [place] [address] Care Team Providers Care Welfare Aide Name Role Phone No, Physician Unavailable Lorie Vanessa NP Primary Care Provider [phone] Reason for Visit * Reason Comments Diarrhea Encounter Details Date Type Department Care Team (Late st Contact Info) Description 03/16/2024 2:29 AM CDT - 03/16/2024 6:22 AM CDT Emergency [facility] Emergency Department [address] [place] [address] David Mishra Jr., MD [address] [place] [address] Diarrhea, unspecified type (Primary Dx); [...] on file Legal Sex Female 6:55 PM FILLER MIXER Gender Identity Female 06/06/2022 7:40 AM FILLER MIXER Sexual Orientation Not on file documented as [...] Care Everywhere. * Acute Diarrhea (General Information) (Montenegrin) documented in this encounter Medications at Time [...] Morbid obesity with BMI of 50.0-59.9, adult ([facility]) 12/12/2022 Vitamin D deficiency 12/12/2022 Chronic left-sided [...] syndrome Postural orthostatic tachycardia syndrome (POTS) Seizures ([facility]) History of febrile seizures as an /toddler [...] Currently in 11th grade : (Added by [employer]) Sibling : (Added by MEGHNA [employer]) Pets/Animals: Dog (Added by [employer]) Pets/Animals: Cat (Added by [employer]) Review of Systems Review of Systems All [...] enteric bacterial pathogens Narrative: Testing performed by [facility] ([phone]). Routine stool cultures include procedures to detect Salmonella, Shigella, Edwardsiella, Aeromonas, Pleisiomonas, Campylobacter, Yersinia, E. coli O157, and Shiga-like toxins. Vibrio is cultured only upon special request. If Vibrio is suspected, please call the laboratory at [phone]. Interpretive data was last updated October 01, [...] Dehydration David Mishra Jr., MD 04/01/24 0811 ER MIXER * Chaya Castillo RN - 03/16/2024 1:15 [...] last revised on 2022 Testing performed by: [facility], [address] [place]., [address] Stool 03/16/2024 6:13 AM CDT 03/16/2024 1:26 PM CDT us David Mishra Jr., MD LAB BODY FLUIDS AND STO OLS ORDERABLES Final Result FRAN [address] [facility] Department [place] [address] * Stool culture Stool Rectum (03/16/2024 6:13 AM CDT) Direct Specimen Exam Shiga Toxin Testing: Antigen detection assay for Shiga-toxin NEGATIVE for Shiga Toxin 1 and Shiga Toxin 2. Comment:Testing performed by : [facility], [address] [facility] [place] [address] Report Final Report: No growth of enteric bacterial pathogens FRAN Comment:Testing performed by : [facility], [address] [place] [address]., [address] Stool (Rectum) 03/16/2024 6: 13 AM CDT 03/16/2024 1:23 PM CDT Narrative FRAN - 03/20/2024 9:50 AM CDT Testing performed by [facility] ([phone]). Routine stool cultures include procedures to detect Salmonella, Shigella, Edwardsiella, Aeromonas, Pleisiomonas, Campylobacter, Yersinia, E. coli O157, and Shiga-like toxins. ?? Vibrio is cultured only upon special request. ??If Vibrio is suspected, please call the laboratory at [phone]. Interpretive data was last updated October 01, 2016. us David Mishra Jr., MD LAB MICROBIOLOGY - GENE RAL ORDERABLES Final Result FRAN [address] [facility] Department [place] [address] * CT Abdomen Pelvis W Contrast (03/16/2024 [...] AM T: ??03/16/2024 3:23 AM Report ID: [id number] Reading Location: ??[id number] Procedure Note Juany Salcido MD - 03/16/2024 [...] 03/16/2024 3:23 AM - Electronically signed by uJany Salcido M.D. SN: Report ID: [id number] Reading Location: [place] [address] David Mishra Jr., MD IMG CT PROCEDURES Final Result * POCT hCG, urine (03/16/2024 1:46 AM CDT) Pathologist [facility] HCG, ur, POC Negative Negative Lot Number [id number] QC Backgroud Clear Acceptable QC Control Line Acceptable Urine 03/16/2024 1:46 AM CDT David Mishra Jr., MD POINT OF CARE TEST ORDE CAMPBELL Final Result * (ABNORMAL) Urinalysis, microscopic only (03/16/2024 1:43 AM CDT) Pathologist [facility] WBC, ur 0-5 0 - 5 /HPF Comment:Testing performed by : [facility], [address] [place] [address]., [address] RBC, ur 0-2 0 - 2 /HPF FRAN [place]YS Comment:Testing performed by : [address] [address] Epithelial cells, squamous, ur 1-5 0 - 5 /HPF FRAN [place]YS Comment:Testing performed by : [address] [address] Bacteria, ur Trace(A) FRAN Comment:Testing performed by : [address] [address] Mucous, ur Present(A) FRAN [place]YS Comment:Testing performed by : [address] [address] Culture Reflex Comment Reflex conditions for urine culture (WBC >10) not met. FRAN Comment:Testing performed by : [address] [address] Urine 03/16/2024 1:43 AM CDT 03/16/2024 1:54 AM CDT us David Mishra Jr., MD LAB URINE ORDERABLES Fi nal Result Performing Organization Address City/State/[facility] Co de Phone Number FRAN [address] [facility] Department [place] [address] * (ABNORMAL) Urinalysis reflex to microscopic and culture Urine (03/16/2024 1:43 AM CDT) Color, ur Yellow Yellow Comment:Testing performed by : [address] [address] Clarity, ur Clear Clear FRAN Comment:Testing performed by : [address] [address] Specific gravity, ur 1.012 1.003 - 1.030 FRAN Comment:Testing performed by : [address] [address] pH, urine 5.0 FRAN Comment: Interpretive Data ? Urine pH is affected by diet, medications, systemic acid-base disturbances, and renal tubular function. ??pH may affect urinary stone formation. ??For example, urine pH below 6.0 may help reduce the tendency for calcium phosphate stones and pH greater than 6.0 may reduce the tendency for uric acid stone formation. Source: [facility] Current Interpretive Data was last revised on 2017 Testing performed by: [address], [place]., [address] Protein, ur ql Negative Negative FRAN Comment:Testing performed by : [address], [place]., [address] Glucose, ur ql Negative Negative FRAN Comment:Testing performed by : [address], [place]., [address] Ketones, ur Negative Negative FRAN Comment:Testing performed by : [address], [place]., [address] Bilirubin, ur Negative Negative FRAN Comment:Testing performed by : [address], [place]., [address] Blood, ur Trace(A) Negative FRAN Comment:Testing performed by : [address], [place]., [address] Urobilinogen, ur <2.0 <2.0 mg/dL FRAN Comment:Testing performed by : [address], [place]., [address] Nitrite, ur Negative Negative FRAN Comment:Testing performed by : [address], [place]., [address] Leukocyte esterase, ur Negative Negative FRAN Comment:Testing performed by : [address], [place]., [address] UA reflex comment Reflex to microscopic UA will be performed. FRAN Comment:Testing performed by : [address], [place]., [address] Urine 03/16/2024 1:43 AM CDT 03/16/2024 1:54 AM CDT us David Mishra Jr., MD LAB MICROBIOLOGY - GENE RAL ORDERABLES Final Result FRAN HAYS [address] [facility] Department [place] [address] * eGFR (03/16/2024 1:26 AM [...] was last reviewed 2021. Testing performed by: [address] [address] Blood 03/16/2024 1:26 AM CDT 03/16/2024 1:44 AM CDT us David Mishra Jr., MD LAB BLOOD ORDERABLES Fi nal Result Performing Organization Address City/State/[facility] Co ga Phone Number [facility] [address] [facility] Department [place] [address] * (ABNORMAL) Differential, auto (03/16/2024 1:26 AM CDT) Neutrophil abs 9.0(H) 1.5 - 6.5 K/cumm Comment:Testing performed by : [address] [address] Imm gran abs 0.1 0.0 - 0.1 K/cumm FRAN HAYS Comment:Testing performed by : [address] [address] Lymphocyte abs 3.0 0.8 - 3.3 K/cumm CERNER Comment:Testing performed by : [address] [address] Monocyte abs 0.9(H) 0.2 - 0.8 K/cumm CERELDON Comment:Testing performed by : [address] [address] Eosinophil abs 0.3 0.0 - 0.5 K/cumm [facility] Comment:Testing performed by : [address], [place]., [address] Basophil abs 0.1 0.0 - 0.1 K/cumm FRAN Comment:Testing performed by : [address] [address] Neutrophil pct 67.1 % [facility] Comment: Interpretive Data Percent cell count reference ranges are not reported, since discordance with absolute values may lead to misinterpretation of CBC data. Current Interpretive Data was last revised on 2017. Testing performed by: [address] [address] Imm gran pct 1.0 % [facility] Comment: Interpretive Data Percent cell count reference ranges are not reported, since discordance with absolute values may lead to misinterpretation of CBC data. Current Interpretive Data was last revised on 2017. Testing performed by: [address] [address] Lymphocyte pct 22.2 % [facility] Comment: Interpretive Data Percent cell count reference ranges are not reported, since discordance with absolute values may lead to misinterpretation of CBC data. Current Interpretive Data was last revised on 2017. Testing performed by: [address] [address] Monocyte pct 6.8 % CERNER Comment: Interpretive Data Percent cell count reference ranges are not reported, since discordance with absolute values may lead to misinterpretation of CBC data. Current Interpretive Data was last revised on 2017. Testing performed by: [address] [address] Eosinophil pct 2.2 % CERNER Comment: Interpretive Data Percent cell count reference ranges are not reported, since discordance with absolute values may lead to misinterpretation of CBC data. Current Interpretive Data was last revised on 2017. Testing performed by: [address] [address] Basophil pct 0.7 % FRAN Comment: Interpretive Data Percent cell count reference ranges are not reported, since discordance with absolute values may lead to misinterpretation of CBC data. Current Interpretive Data was last revised on 2017. Testing performed by: [address] [address] Blood 03/16/2024 1:26 AM CDT 03/16/2024 1:44 AM CDT David Mishra Jr., MD LAB BLOOD ORDERABLES Fi nal Result Performing Organization Address [facility] Co de Phone Number [address] [place] [address] * Lipase (03/16/2024 1:26 AM CDT) Pathologist [facility] Lipase 25 10 - 99 Units/L Comment:Testing performed by : [address] [address] Blood (Blood, Venous) 03/16/2024 1:26 AM CDT 03/16/2024 1:44 AM CDT David Mishra Jr., MD LAB BLOOD ORDERABLES Fi nal Result Performing Organization Address [facility]/ZIP Co de Phone Number [address] [place] [address] * (ABNORMAL) Comprehensive metabolic panel (03/16/2024 1:26 AM CDT) Sodium 138 135 - 145 mmol/L Comment:Testing performed by : [address] [address] Potassium, pl 3.8 3.3 - 4.9 mmol/L FRAN Comment:Testing performed by : [address], [place]., [address] Chloride 103 97 - 110 mmol/L FRAN Comment:Testing performed by : [address], [place]., [address] CO2 21(L) 22 - 32 mmol/L FRAN Comment:Testing performed by : [address], [place]., [address] Anion gap 14 2 - 15 mmol/L FRAN Comment:Testing performed by : [address], [place]., [address] BUN 8 6 - 25 mg/dL FRAN Comment:Testing performed by : [address], [place]., [address] Creatinine 0.70 0.60 - 1.10 mg/dL FRAN Comment:Testing performed by : [address], [place]., [address] Glucose 94 70 - 199 mg/dL FRAN [...] was last revised 2022. Testing performed by: [address] [address] Calcium 9.4 8.5 - 10.3 mg/dL FRAN Comment:Testing performed by : [address] [address] Bilirubin, total 0.4 0.1 - 1.2 mg/dL FRAN Comment:Testing performed by : [address], [place]., [address] Protein, pl 7.9 6.5 - 8.5 g/dL FRAN Comment:Testing performed by : [address] [address] Albumin 4.4 3.5 - 5.0 g/dL FRAN HAYS Comment:Testing performed by : [address] [address] Alk phos 111 40 - 130 Units/L FRAN HAYS Comment:Testing performed by : [address] [address] ALT 19 7 - 45 Units/L FRAN HAYS Comment:Testing performed by : [address] [address] AST 23 10 - 45 Units/L FRAN HAYS Comment:Testing performed by : [address] [address] Blood 03/16/2024 1:26 AM CDT 03/16/2024 1:44 AM CDT us David Mishra Jr., MD LAB BLOOD ORDERABLES nal Result Performing Organization Address City/State/[facility] Co de Phone Number FRAN [address] Department [place] [address] * (ABNORMAL) CBC with auto differential (03/16/2024 1:26 AM CDT) [facility] WBC 13.3(H) 3.8 - 9.9 K/cumm Comment:Testing performed by : [address] [address] Hgb 13.5 11.9 - 15.5 g/dL FRAN HAYS Comment:Testing performed by : [address] [address] Hct 42.1 35.6 - 45.5 % FRAN HAYS Comment:Testing performed by : [address] [address] Plt 432(H) 150 - 400 K/cumm FRAN HAYS Comment:Testing performed by : [address] [address] MPV 9.0(L) 9.1 - 12.3 fL FRAN HAYS Comment:Testing performed by : [address] [address] RBC 5.15 3.90 - 5.20 M/cumm FRAN Comment:Testing performed by : [address] [address] MCV 81.7 81.3 - 96.4 fL FRAN Comment:Testing performed by : [address] [address] MCH 26.2(L) 27.1 - 33.3 pg FRAN Comment:Testing performed by : [address], [address] MCHC 32.1(L) 32.3 - 35.7 g/dL FRAN Comment:Testing performed by : [address], [address] RDW CV 13.5 11.1 - 14.9 % FRAN Comment:Testing performed by : [address], [address] RDW SD 39.8 35.7 - 48.1 fL FRAN Comment:Testing performed by : [address] [address] NRBC abs 0.00 0.00 - 0.01 K/cumm FRNA Comment:Testing performed by : [address], [address] Blood (Blood, Venous) 03/16/2024 1:26 AM CDT 03/16/2024 1:44 AM CDT David Mishra Jr., MD LAB BLOOD ORDERABLES nal Result FRAN [address] [facility] Department [place] [address] documented in this encounter Visit [...] 03/16 documented in this encounter Care Teams Welfare Aide Relationship Specialty Start Date End Date Lorie Vanessa NP [address] [place] [address] PCP - General Family Practice 05/29/22 No, Physician 06/08/21 documented as of this encounter
--- OUTSIDE RECORDS SUMMARY | 2024-06-06 05:22 | XMS_ITS | Encounter Summary ---
Author Organization [facility] Healthcare Address [address] [place] [address] Care Team Providers Care Cold Mill Supervisor Name Role Phone No, Physician Unavailable Lorie Vanessa NP Primary Care Provider [phone] Encounter Details Date Type Department Care Team (Late st Contact Info) Description 03/27/2024 Patient Self-Triage [facility] HealthCare/ Physicians [address] [place] [address] Mychart, Generic Provider [address] [place] [address] Social History Tobacco Use Types Packs/Day [...] on file Legal Sex Female 6:55 PM PROGRAMMING DIRECTOR Gender Identity Female 06/06/2022 7:40 AM PROGRAMMING DIRECTOR Sexual Orientation Not on file documented as of this encounter Plan of Treatment Not on file documented as of this encounter Visit Diagnoses Not on filedocumented in this encounter Care Teams Cold Mill Supervisor Relationship Specialty Start Date End Date Lorie Vanessa NP [address] [place] [address] PCP - General Family Practice 05/29/22 No, Physician 06/08/21 documented as of this encounter
--- OUTSIDE RECORDS SUMMARY | 2024-06-06 05:22 | XMS_ITS | Encounter Summary ---
Author Organization [facility] Address [address] [place] [address] Care Team Providers Care Algology Teacher Name Role Phone No, Physician Unavailable Lorie Vanessa NP Primary Care Provider [phone] Reason for Referral * Consultation (Routine) - Authorized Specialty Diagnoses / Procedures Referred By Cyn burnett Referred To Contact Neurology Diagnoses Increased frequency of headaches Lorie Vanessa NP [facility] [address] Phone: tel: fax: [facility] Neurology [address] [place] [phone] Phone: tel: fax: Referral ID Status Reason Start Date Expiration Date Visits Requested Visits Authorized [id number] Authorized Specialty Services Required 05/13/2025 1 1 Question Answer Please select the performing region: [facility] Medical Group [[id number]] Please select the performing department: [facility] NEURO BLVLE 250 [[id number]] # of visits: 1 ICIST ACOUSTICS Reason for Visit * Reason Comments Neuro Problem Encounter Details Date Type Department Care Team ([facility] st Contact Info) Description 04/13/2024 10:00 AM PHYSICIST ACOUSTICS Telemedicine [facility] Medical [facility] Primary Care at [place] [address] [facility] [address] [place] [address] Lorie Vanessa NP [address] [facility] [address] [place] [address] Increased frequency of headaches (Primary [...] on file Legal Sex Female 6:55 PM PHYSICIST ACOUSTICS Gender Identity Female 06/06/2022 7:40 AM PHYSICIST ACOUSTICS Sexual Orientation Not on file documented as of this encounter Last Filed Vital Signs Vital Sign Reading Time Taken Comments Blood Pressure - - Pulse 84 04/13/2024 9:52 AM PHYSICIST ACOUSTICS Temperature - - Respiratory Rate - - Oxygen Saturation - - Inhaled Oxygen Concentration - - Weight 145.2 kg (320 lb) 04/13/2024 9:52 AM PHYSICIST ACOUSTICS Height 162.6 cm (5' 4.02 ) 04/13/2024 9:52 AM CS T Body Mass Index 54.9 04/13/2024 9:52 AM PHYSICIST ACOUSTICS documented in this encounter Patient Instructions * Patient Instructions* Lorie Vanessa NP - 04/13/2024 10:00 AM PHYSICIST ACOUSTICS A referral has been made to neurology. [...] least 150 minutes of exercise per week ICIST ACOUSTICS ICIST ACOUSTICS documented in this encounter Progress Notes * [...] monitor for stability Orders: - Thyroid Function [place]; Future Encounter for hepatitis C screening test [...] (around 06/08/2024) for Annual physical. Lorie Vanessa EXCHANGE ENGINEER BC ICIST ACOUSTICS documented in this encounter Miscellaneous Notes * Assessment & Plan Note - Lorie Vanessa NP - 04/13/2024 10:34 AM CSTAssociated Problem(s): Blurry vision Recent onset Encouraged to schedule an appointment with eye doctor and referral made to Neurology for further evaluation and management ICIST ACOUSTICS * Assessment & Plan Note - Lorie Vanessa NP - 04/13/2024 10:33 AM CSTAssociated Problem(s): Fatigue Recent onset, likely multifactorial, currently, diagnosed with bronchitis states is improving Reviewed TSH level done in 09/2023 and most recent ER lab work from 03/16/24 Will monitor for stability ICIST ACOUSTICS * Assessment & Plan Note - Lorie Vanessa NP - 04/13/2024 10:32 AM CSTAssociated Problem(s): Increased frequency of headaches Recent onset/acute Referral made to neurology for further evaluation and management ICIST ACOUSTICS * Assessment & Plan Note - Lorie [...] least 150 minutes of exercise per week ICIST ACOUSTICS documented in this encounter Plan of Treatment Scheduled Orders Name Type Priority Associated Diagnoses Orde r Schedule Hepatitis C antibody Blood Microbiology Routine Encounter for hepatitis C screening test for low risk patient Expected: 04/16/2024, Expires: 04/13/2025 Thyroid Function [place] Lab Routine Fatigue, unspecified type Expected: 04/16/2024, [...] 05/25/2024 added in this encounter Care Teams Algology Teacher Relationship Specialty Start Date End Date Lorie Vanessa NP [address] [place] [address] PCP - General Family Practice 05/29/22 No, Physician 06/08/21 documented as of this encounter
--- OUTSIDE RECORDS SUMMARY | 2024-06-06 05:22 | XMS_ITS | Referral Summary ---
Author Organization [facility] Address [address] [place] [address] Care Team Providers Care Medical Education Specialist Name Role Phone No, Physician Unavailable Lorie Vanessa COCONUT JELLY ROLLER Primary Care Provider [phone] Encounters Date Type Department Care Team Description 05/25/2024 3:00 PM [employer] Office Visit [facility] Care at [address] [phone] Brittany Frances NP Rash and nonspecific skin eruption (Primary Dx) 05/13/2024 2:00 PM [employer] Office Visit [facility] Family Medicine at [address] [place] [address] Collin Valdez MD Class 3 severe obesity due to excess calories without serious comorbidity with body mass index (BMI) of 50.0 to 59.9 in adult (HCC) (Primary Dx) 04/14/2024 Orders Only [facility] Information Management [address] [place] [address] Scanning, Provider 04/13/2024 Patient Self-Triage [facility] [address] [place] [address] Mychart, Generic Provider 04/13/2024 10:00 AM [employer] Telemedicine [facility] Primary Care at [address] [phone] Lorie Vanessa NP Increased frequency of headaches (Primary Dx); Fatigue, unspecified type; Encounter for hepatitis C screening test for low risk patient; Class 3 severe obesity due to excess calories without serious comorbidity with body mass index (BMI) of 50.0 to 59.9 in adult (HCC); Blurry vision 04/03/2024 Patient Self-Triage [facility]/ Physicians [address] [place] [id number] Mychart, Generic Provider 03/27/2024 Patient Self-Triage [facility]/ Physicians [address] [place] [phone] Gabrielt, Generic Provider 03/20/2024 Telephone [facility] Primary Care at [address] [phone] Lorie Vanessa NP 03/19/2024 Telephone [facility] Primary Care at [address] [phone] Lorie Vanessa NP 03/16/2024 2:29 AM CDT - 03/16/2024 6:22 AM CDT Emergency [facility] Emergency Department [address] [place] [address] David Mishra Jr., MD Diarrhea, unspecified type [...] 04/13/2024 Assessment & Plan (04/13/2024 10:32 AM [employer]): Recent onset/acute Referral made to neurology for further evaluation and management Fatigue 04/13/2024 Assessment & Plan (04/13/2024 10:33 AM [employer]): Recent onset, likely multifactorial, currently, diagnosed with bronchitis states is improving Reviewed TSH level done in 09/2023 and most recent ER lab work from 03/16/24 Will monitor for stability Blurry vision 04/13/2024 Assessment & Plan (04/13/2024 10:34 AM [employer]): Recent onset Encouraged to schedule an appointment with eye doctor and referral made to Neurology for further evaluation and management Low back pain 07/16/2023 Upper respiratory infection with cough and conge stion 05/31/2023 Assessment & Plan (05/31/2023 7:26 AM [employer]): Instructed to increase clear liquids, rest, and vitamin C in diet. Advised to sleep with head elevated and use a cool mist vaporizer and Vicks VapoRub at bedtime for cough and congestion. Recommended follow-up if symptoms don't resolve, ER for new or worsening symptoms. Body aches 05/31/2023 Assessment & Plan (05/31/2023 7:27 AM [employer]): COVID-19, influenza, and RSV test were negative, see plan of care for upper respiratory infection with cough and congestion. Cough 05/31/2023 Assessment & Plan (05/31/2023 7:27 AM [employer]): COVID-19, influenza, and RSV test were negative, [...] 12/12/2022 Assessment & Plan (04/13/2024 10:30 AM [employer]): Chronic, improved Encouraged to: Make healthy food [...] heat and/or ice. Informed can also use iejk-mkd-znjrbpv lidocaine patches OR topical analgesic creams as [...] heat and/or ice. Informed can also use cjok-qev-byvkyil lidocaine patches OR topical analgesic creams as directed as needed, but NOT with heat or ice. Instructed that further recommendations will depend on outcome of xrays. Constipation 08/21/2022 Assessment & Plan (12/12/2022 5:37 AM CDT): Chronic, stable-encouraged diet high in fiber, 20-30 g per day. Advised to keep scheduled appointment for EGD/colonoscopy with intelligence chief, Dr. Thomas. Assessment & Plan (08/21/2022 8:42 AM CDT): Worsening constipation over the past few years. -high-fiber diet -MiraLax OTC daily p.r.n. Diarrhea 08/21/2022 Assessment & Plan (12/12/2022 5:37 AM CDT): Chronic, stable-encouraged diet high in fiber, 20-30 g per day. Advised to keep scheduled appointment for EGD/colonoscopy with intelligence chief, Dr. Thomas. Assessment & Plan (08/21/2022 8:41 [...] appointment for EGD/colonoscopy and to follow-up with intelligence chief, Dr. Thomas, as recommended. Assessment & Plan (07/11/2022 5:53 PM [employer]): Go to ER for further evaluation of your right upper abdominal pain. Amenorrhea 06/09/2022 Assessment & Plan (12/12/2022 5:36 AM CDT): Chronic-encouraged to keep appointment with telesales team leader, Dr. Lin, on 01/11/2023. Assessment & Plan (06/09/2022 2:34 PM [employer]): Acute-ordered serum test. Nausea 04/15/2022 Assessment & Plan (12/12/2022 5:41 AM CDT): Chronic, stable-continued on Zofran as directed as needed, refills sent to pharmacy per patient request. Encouraged to keep scheduled appointment for EGD and to follow-up with intelligence chief, Dr. Thomas, as recommended. Assessment & Plan (08/21/2022 8:41 AM CDT): Chronic nausea and vomiting, not improved with PPI or Zofran. -we will order ultrasound as above -EGD as above Assessment & Plan (06/09/2022 2:30 PM [employer]): Chronic, uncontrolled, despite starting treatment with Protonix 40 mg once daily-increased Protonix to 40 mg twice daily, new prescription sent to pharmacy along with a refill for Zofran per your request. A urine test has been ordered. Assessment & Plan (04/15/2022 11:47 AM [employer]): Chronicity and stability unknown-prescribed pantoprazole once daily in morning 1/2 hour before mealtime. Advised to get fasting lab work done. Referred to gastroenterology, number provided to call and schedule appointment. Frequent infections 04/15/2022 Assessment & Plan (12/12/2022 5:39 AM CDT): Chronic, stable-continued on Augmentin, cetirizine, and Flonase per cassandra consultant, considering SCIT. Encouraged to follow-up with fire safety inspector as recommended. Assessment & Plan (06/09/2022 2:33 PM [employer]): Currently asymptomatic-reviewed strep pneumoniae antibody serotypes, immune to 12/23 types tested-recommended Pneumovax 23, given today. Advised if continues to get sick frequently after vaccination, can draw a post-vaccine titer to assess immune response to vaccination and/or refer to fire safety inspector. Assessment & Plan (04/15/2022 11:48 AM [employer]): Chronic, recurrent upper respiratory infections and gastrointestinal problems- ordered strep pneumoniae antibody serotype test. Tachycardia, unspecified 04/15/2022 Assessment & Plan (12/12/2022 5:42 AM CDT): Chronic, improved/controlled on medication-continued on propranolol per cardiology. Encouraged to follow-up with antenna installer as recommended. Assessment & Plan (06/09/2022 2:30 PM [employer]): Chronicity and stability unknown, heart rate 75 beats per minute and regular at today's visit-encouraged to keep scheduled appointment with antenna installer. Assessment & Plan (04/15/2022 11:52 AM [employer]): Chronicity and stability unknown, with increase in [...] recent lab work. Encouraged to follow-up with antenna installer as recommended. Assessment & Plan (07/11/2022 5:53 PM [employer]): Go to ER for further evaluation of your dizziness/pre-syncopal episodes. Assessment & Plan (04/15/2022 11:52 AM [employer]): Recent onset, occurs with standing, with orthostatic [...] position. Assessment & Plan (04/15/2022 11:47 AM [employer]): Chronicity and stability unknown, with 20 point drop in systolic from lying to standing-advised to get fasting lab work done. Referred to cardiology, number provided to call and schedule appointment. Hemorrhoids 04/15/2022 Overview (01/09/2023): Internal Assessment & Plan (12/12/2022 5:40 AM CDT): Chronic, currently asymptomatic-encouraged to keep scheduled appointment for colonoscopy and to follow-up with intelligence chief, Dr. Thomas, as recommended. GALEANO (dyspnea on exertion) 04/15/2022 Assessment & Plan (12/12/2022 5:39 AM CDT): Chronic, stable-will monitor for worsening symptoms and can pursue additional testing/refer to pulmonology if/when needed. Assessment & Plan (04/15/2022 11:43 AM [employer]): Chronic, episodic, relieved with inhaler-refill for albuterol MDI sent to pharmacy per patient request. PCOS (polycystic ovarian syndrome) 07/02/2018 Assessment & Plan (12/12/2022 5:41 AM CDT): Chronic-encouraged to keep appointment with telesales team leader, Dr. Lin, on 01/11/2023. Resolved Problems Problem [...] heat and/or ice. Informed can also use lhtt-vgl-xecfith lidocaine patches OR topical analgesic creams as [...] heat and/or ice. Informed can also use tdmi-zic-gxbtnym lidocaine patches OR topical analgesic creams as [...] heat and/or ice. Informed can also use rpne-edk-seoqfgu lidocaine patches OR topical analgesic creams as [...] heat and/or ice. Informed can also use vmjx-nle-qdnxtfh lidocaine patches OR topical analgesic creams as directed as needed, but NOT with heat or ice. Instructed that further recommendations will depend on outcome of xrays. Left lower quadrant pain 07/11/2022 Assessment & Plan (07/11/2022 5:53 PM [employer]): Go to ER for further evaluation of your left lower abdominal pain. Need for vaccination 06/09/2022 023 Assessment & Plan (06/09/2022 2:34 PM [employer]): Reviewed strep pneumoniae antibody serotypes, immune to 12/ types tested-recommended Pneumovax 23, given today, also given Tdap, due. Advised if continues to get sick frequently after vaccination, can draw a post-vaccine titer to assess immune response to vaccination and/or refer to fire safety inspector. Abrasion of neck 06/09/2022 12/11/2022 Assessment & Plan (06/09/2022 2:53 PM [employer]): Acute-instructed to apply triple antibiotic ointment as directed as needed and avoid picking at area. Ingrown right big toenail 04/15/2022 Assessment & Plan (04/15/2022 11:47 AM [employer]): Acute-prescribed cephalexin 500 mg BID x 1 [...] done. Assessment & Plan (06/09/2022 2:29 PM [employer]): Chronicity unknown, resolved with Protonix, however epigastric area tender upon palpation-increase Protonix to 40 mg twice daily. Encouraged to keep scheduled appointment with intelligence chief. Assessment & Plan (04/15/2022 11:45 AM [employer]): Chronicity and stability unknown-prescribed pantoprazole once daily in morning 1/2 hour before mealtime. Advised to get fasting lab work done. Referred to gastroenterology, number provided to call and schedule appointment. Morbid obesity with BMI of 45.0-49.9, adult 04/15/2022 12/12/2022 Assessment & Plan (12/12/2022 5:43 AM CDT): Preop cardiovascular exam 04/15/2022 Assessment & Plan (04/15/2022 11:49 AM [employer]): Reviewed past and current medical history, surgical [...] on file Legal Sex Female 6:55 PM [employer] Gender Identity Female 06/06/2022 7:40 AM [employer] Sexual Orientation Not on file Last Filed Vital Signs Vital Sign Reading Time Taken Comments Blood Pressure 122/78 05/25/2024 3:08 PM [employer] Pulse 114 05/25/2024 3:08 PM [employer] Temperature 36.8 ??C (98.2 ??F) 05/25/2024 3:08 PM CS T Respiratory Rate 24 05/25/2024 3:08 PM [employer] Oxygen Saturation 99% 05/25/2024 3:08 PM [employer] Inhaled Oxygen Concentration - - Weight 155.6 kg (343 lb) 05/25/2024 3:08 PM [employer] Height 162.6 cm (5' 4 ) 05/13/2024 1:57 PM [employer] Body Mass Index 58.88 05/13/2024 1:57 PM [employer] Plan of Treatment Not on file Procedures Procedure Name Priority Date/Time Associated Diagnosis Comments SCAN - RADIOLOGY/IMAGING 04/14/2024 9:17 PM [employer] LEUKOCYTES, FECAL Routine 03/16/2024 6:1 3 AM [...] HIGH RISK HPV Routine 05/17/2023 11:10 AM [employer] Well woman exam from Last 3 Months or Most Recently Relevant to Health Maintenance Results * SCAN - RADIOLOGY/IMAGING (04/14/2024 9:17 PM [employer]) Anatomical Region Laterality Modality Other us Provider Scanning Final Result * Leukocytes, fecal (03/16/2024 6:13 AM CDT) WBC, fecal No leukocytes No leukocytes Comment: Interpretive Data Testing performed by microsopy. Current Interpretive Data was last revised on 2022 Testing performed by: [facility], [address] [place]., [address] Stool 03/16/2024 6:13 AM CDT 03/16/2024 1:26 PM CDT David Mishra Jr., MD LAB BODY FLUIDS AND STO OLS ORDERABLES Final Result Performing Organization Address [facility] de Phone Number FRAN [address] [place] [address] [address] [address] * Stool culture Stool Rectum (03/16/2024 6:13 AM CDT) Direct Specimen Exam Shiga Toxin Testing: Antigen detection assay for Shiga-toxin NEGATIVE for Shiga Toxin 1 and Shiga Toxin 2. Comment:Testing performed by : [facility], [address] [place] [address], [id number] Report Final Report: No growth of enteric bacterial pathogens FRAN Comment:Testing performed by : [facility], [address] [place] [address]., [address] Stool (Rectum) 03/16/2024 6: 13 AM CDT 03/16/2024 1:23 PM CDT Narrative FRAN - 03/20/2024 9:50 AM CDT Testing performed by [facility] ([phone]). Routine stool cultures include procedures to detect Salmonella, Shigella, Edwardsiella, Aeromonas, Pleisiomonas, Campylobacter, Yersinia, E. coli O157, and Shiga-like toxins. ?? Vibrio is cultured only upon special request. ??If Vibrio is suspected, please call the laboratory at [phone]. Interpretive data was last updated October 01, 2016. us David Mishra Jr., MD LAB MICROBIOLOGY - GENE RAL ORDERABLES Final Result Performing Organization Address [facility] [[email or web address]] Co de Phone Number FRAN [address] [facility] [address] [address] * CT Abdomen Pelvis W Contrast (03/16/2024 [...] AM T: ??03/16/2024 3:23 AM Report ID: [id number] Reading Location: ??[id number] Procedure Note Juany Salcido MD - 03/16/2024 [...] Juany Salcido M.D. SN: SN Report ID: [id number] Reading Location: [place] [address] David Mishra Jr., MD IMG CT PROCEDURES [...] ur Yellow Yellow Comment:Testing performed by : [address] [address] Clarity, ur Clear Clear FRAN Comment:Testing performed by : [address] [address] Specific gravity, ur 1.012 1.003 - 1.030 FRAN Comment:Testing performed by : [address] [address] pH, urine 5.0 FRAN Comment: Interpretive Data ? Urine pH is affected by diet, medications, systemic acid-base disturbances, and renal tubular function. ??pH may affect urinary stone formation. ??For example, urine pH below 6.0 may help reduce the tendency for calcium phosphate stones and pH greater than 6.0 may reduce the tendency for uric acid stone formation. Source: [facility] Current Interpretive Data was last revised on 2017 Testing performed by: [facility], [address] [place] [address]., [address] Protein, ur ql Negative Negative FRAN Comment:Testing performed by : [address], [place]., [address] Glucose, ur ql Negative Negative FRAN Comment:Testing performed by : [address] [address] Ketones, ur Negative Negative FRAN Comment:Testing performed by : [address], [place]., [address] Bilirubin, ur Negative Negative FRAN Comment:Testing performed by : [address], [place]., [address] Blood, ur Trace(A) Negative FRAN Comment:Testing performed by : [address] [address] Urobilinogen, ur <2.0 <2.0 mg/dL FRAN Comment:Testing performed by : [address] [address] Nitrite, ur Negative Negative FRAN Comment:Testing performed by : [address] [address] Leukocyte esterase, ur Negative Negative FRAN Comment:Testing performed by : [address] [address] UA reflex comment Reflex to microscopic UA will be performed. FRAN Comment:Testing performed by : [address] [address] Urine 03/16/2024 1:43 AM CDT 03/16/2024 1:54 AM CDT us David Mishra Jr., MD LAB MICROBIOLOGY - GENE RAL ORDERABLES Final Result FRAN [address] [facility] Department [place] [address] * (ABNORMAL) Urinalysis, microscopic only (03/16/2024 1:43 AM CDT) WBC, ur 0-5 0 - 5 /HPF Comment:Testing performed by : [facility], [address] [place] [address], [place]., [address] RBC, ur 0-2 0 - 2 /HPF FRAN Comment:Testing performed by : [facility], [address] [place] [address], [place]., [address] Epithelial cells, squamous, ur 1-5 0 - 5 /HPF FRAN Comment:Testing performed by : [facility], [address] [place] [address], [place]., [address] Bacteria, ur Trace(A) FRAN Comment:Testing performed by : [address], [place]., [address] Mucous, ur Present(A) FRAN Comment:Testing performed by : [address], [place]., [address] Culture Reflex Comment Reflex conditions for urine culture (WBC >10) not met. FRAN Comment:Testing performed by : [facility], [address] [place] [address], [place]., [address] Urine 03/16/2024 1:43 AM CDT 03/16/2024 1:54 AM CDT us David Mishra Jr., MD LAB URINE ORDERABLES Fi nal Result Performing Organization Address City/State/[facility] [[email or web address]] Co de Phone Number [facility] [address] [facility] Department of Laboratories [place], [place] [id number] * eGFR (03/16/2024 1:26 AM CDT) eGFR [...] was last reviewed 2021. Testing performed by: [address] [address] Blood 03/16/2024 1:26 AM CDT 03/16/2024 1:44 AM CDT us David Mishra Jr., MD LAB BLOOD ORDERABLES Fi nal Result [facility] [address] [facility] Department [place] [address] * (ABNORMAL) Differential, auto (03/16/2024 1:26 AM CDT) Neutrophil abs 9.0(H) 1.5 - 6.5 K/cumm Comment:Testing performed by : [address] [address] Imm gran abs 0.1 0.0 - 0.1 K/cumm FRAN Comment:Testing performed by : [address] [address] Lymphocyte abs 3.0 0.8 - 3.3 K/cumm FRAN Comment:Testing performed by : [address] [address] Monocyte abs 0.9(H) 0.2 - 0.8 K/cumm FRAN HAYS Comment:Testing performed by : [address] [address] Eosinophil abs 0.3 0.0 - 0.5 K/cumm FRAN Comment:Testing performed by : [address] [address] Basophil abs 0.1 0.0 - 0.1 K/cumm FRAN Comment:Testing performed by : [address] [address] Neutrophil pct 67.1 % [facility] Comment: Interpretive Data Percent cell count reference ranges are not reported, since discordance with absolute values may lead to misinterpretation of CBC data. Current Interpretive Data was last revised on 2017. Testing performed by: [address] [address] Imm gran pct 1.0 % [facility] Comment: Interpretive Data Percent cell count reference ranges are not reported, since discordance with absolute values may lead to misinterpretation of CBC data. Current Interpretive Data was last revised on 2017. Testing performed by: [address] [address] Lymphocyte pct 22.2 % [facility] Comment: Interpretive Data Percent cell count reference ranges are not reported, since discordance with absolute values may lead to misinterpretation of CBC data. Current Interpretive Data was last revised on 2017. Testing performed by: [address] [address] Monocyte pct 6.8 % [facility] Comment: Interpretive Data Percent cell count reference ranges are not reported, since discordance with absolute values may lead to misinterpretation of CBC data. Current Interpretive Data was last revised on 2017. Testing performed by: [address] [address] Eosinophil pct 2.2 % [facility] Comment: Interpretive Data Percent cell count reference ranges are not reported, since discordance with absolute values may lead to misinterpretation of CBC data. Current Interpretive Data was last revised on 2017. Testing performed by: [address] [address] Basophil pct 0.7 % FRAN Comment: Interpretive Data Percent cell count reference ranges are not reported, since discordance with absolute values may lead to misinterpretation of CBC data. Current Interpretive Data was last revised on 2017. Testing performed by: [address] [address] Blood 03/16/2024 1:26 AM CDT 03/16/2024 1:44 AM CDT us David Mishra Jr., MD LAB BLOOD ORDERABLES nal Result [facility] [address] [facility] [place] [address] * (ABNORMAL) CBC with auto differential (03/16/2024 1:26 AM CDT) WBC 13.3(H) 3.8 - 9.9 K/cumm Comment:Testing performed by : [address] [address] Hgb 13.5 11.9 - 15.5 g/dL FRAN Comment:Testing performed by : [address] [address] Hct 42.1 35.6 - 45.5 % FRAN Comment:Testing performed by : [address] [address] Plt 432(H) 150 - 400 K/cumm FRAN Comment:Testing performed by : [address] [address] MPV 9.0(L) 9.1 - 12.3 fL FRAN Comment:Testing performed by : [address] [address] RBC 5.15 3.90 - 5.20 M/cumm FRAN Comment:Testing performed by : [address] [address] MCV 81.7 81.3 - 96.4 fL FRAN Comment:Testing performed by : [address] [address] MCH 26.2(L) 27.1 - 33.3 pg FRAN HAYS Comment:Testing performed by : [facility], [address] [place] [address]., [address] MCHC 32.1(L) 32.3 - 35.7 g/dL FRAN HAYS Comment:Testing performed by : [address], [address] RDW CV 13.5 11.1 - 14.9 % FRAN HAYS Comment:Testing performed by : [address] [address] RDW SD 39.8 35.7 - 48.1 fL FRAN HAYS Comment:Testing performed by : [address], [address] NRBC abs 0.00 0.00 - 0.01 K/cumm FRAN HAYS Comment:Testing performed by : [address] [address] Blood (Blood, Venous) 03/16/2024 1:26 AM CDT 03/16/2024 1:44 AM CDT us David Mishra Jr., MD LAB BLOOD ORDERABLES Fi nal Result Performing Organization Address City/[facility] [[email or web address]] Co de Phone Number [address] [place] [address] * Lipase (03/16/2024 1:26 AM CDT) Lipase 25 10 - 99 Units/L Comment:Testing performed by : [address] [address] Blood (Blood, Venous) 03/16/2024 1:26 AM CDT 03/16/2024 1:44 AM CDT David Mishra Jr., MD LAB BLOOD ORDERABLES Fi nal Result Performing Organization Address City/[facility] [[email or web address]] Co de Phone Number [address] [place] [address] * (ABNORMAL) Comprehensive metabolic panel (03/16/2024 1:26 AM CDT) Sodium 138 135 - 145 mmol/L Comment:Testing performed by : [address] [address] Potassium, pl 3.8 3.3 - 4.9 mmol/L FRAN Comment:Testing performed by : [address], [place]., [address] Chloride 103 97 - 110 mmol/L FRAN Comment:Testing performed by : [address] [address], [place] [address] CO2 21(L) 22 - 32 mmol/L FRAN Comment:Testing performed by : [address], [place] [address] Anion gap 14 2 - 15 mmol/L FRAN Comment:Testing performed by : [address], [place]., [address] BUN 8 6 - 25 mg/dL FRAN Comment:Testing performed by : [address], [place]., [address] Creatinine 0.70 0.60 - 1.10 mg/dL FRAN Comment:Testing performed by : [address], [place]., [address] Glucose 94 70 - 199 mg/dL FRAN [...] was last revised 2022. Testing performed by: [address] [address] Calcium 9.4 8.5 - 10.3 mg/dL FRAN Comment:Testing performed by : [address] [address] Bilirubin, total 0.4 0.1 - 1.2 mg/dL FRAN HAYS Comment:Testing performed by : [facility], [address] [place] [address]., [address] Protein, pl 7.9 6.5 - 8.5 g/dL FRAN HAYS Comment:Testing performed by : [address] [address] Albumin 4.4 3.5 - 5.0 g/dL FRAN Comment:Testing performed by : [address] [address] Alk phos 111 40 - 130 Units/L FRAN Comment:Testing performed by : [address], [place]., [address] ALT 19 7 - 45 Units/L FRAN Comment:Testing performed by : [address] [address] AST 23 10 - 45 Units/L FRAN Comment:Testing performed by : [address] [address] Blood 03/16/2024 1:26 AM CDT 03/16/2024 1:44 AM CDT us David Mishra Jr., MD LAB BLOOD ORDERABLES nal Result FRAN [facility] Department [place] [address] * Pap with reflex to High Risk HPV and Genotyping (Cytology Component) (05/17/2023 11:10 AM SETTER AUTOMATIC SPINNING LATHE) Endocervical (Pap test) 05/17/2023 11:10 AM SETTER AUTOMATIC SPINNING LATHE 05/19/2023 11:35 PM SETTER AUTOMATIC SPINNING LATHE Narrative PATHOLOGY [facility] - 05/23/2023 5:10 PM SETTER AUTOMATIC SPINNING LATHE [facility] results best viewed via link to PDF [facility] Madina [facility] of Surgical [place] [address] Note to Patients: This report may contain [...] Gender: ??F : ??1995 (Age: 27) Address: ??[address] [place] [address] ??[id number] Hospital #: ??[id number] Service: ??DEFAULT Location: ?? Patient Type: ??[facility] SPECIMEN Taken: ??05/17/2023 Received: ??05/19/2023 Accessioned: ??05/20/2023 [...] and histologic results be correlated for laboratory clinical quality assurance associate & improvement standards. ??FOR ALL HIGH-GRADE CASES [...] determined by the Surgical Pathology Department at [facility] as part of an ongoing air quality specialist program and in compliance with federally [...] determined by the Surgical Pathology Department of [facility]. ??It has not been cleared or approved by the U. S. Food and Drug Administration. Sita Lin MD LAB CYTOLOGY ORDERABLES Magda l Result Performing Organization Address City/State/[facility] [[email or web address]] Co de Phone Number PATHOLOGY [facility] from Last 3 Months or Most Recently Relevant to Health Maintenance Insurance [employer] Address: [address] [place] [address] [employer] Address: [address] [place] [address] [employer] Address: [address] [place] [address] * Guarantor: [facility] Account Type Relation to Patient Date of Phone Billing Address Workers Comp 1995 [address] [id number] [facility] Care Teams Medical Education Specialist Relationship Specialty Start Date End Date Lorie Vanessa NP [address] [place] [address] PCP - General Family Practice 05/29/22 No, Physician 06/08/21
--- OUTSIDE RECORDS SUMMARY | 2024-06-06 05:23 | XMS_ITS | Encounter Summary ---
Author Organization [facility] Healthcare Address [address] [place] [address] Care Team Providers Care Product Test Engineer Name Role Phone No, Physician Unavailable Lorie Vanessa NP Primary Care Provider [phone] Encounter Details Date Type Department Care Team (Latest Contact Info) Description 04/26/2023 10:29 AM SILK PRINTER - 04/26/2023 11:59 PM [facility] Hospital Encounter [facility] [address] [place] [address] Closed displaced fracture of fifth metatarsal bone [...] on file Legal Sex Female 6:55 PM SILK PRINTER Gender Identity Female 06/06/2022 7:40 AM SILK PRINTER Sexual Orientation Not on file documented as [...] Read Routine (OP Routine) 04/26/2023 10:37 AM SILK PRINTER Closed displaced fracture of fifth metatarsal bone of right foot, initial encounter documented in this encounter Results * XR Foot Right 3 or More Views (04/26/2023 10:37 AM SILK PRINTER) Anatomical Region Laterality Modality Lower Extremities, Foot Right Computed Radiography 04/26/2023 11:3 0 AM SILK PRINTER Impressions 04/26/2023 11:30 AM SILK PRINTER 1. ??Unchanged mildly displaced, intra-articular fracture of the right 5th metatarsal base. Electronically signed by: Ray Cruz M.D. Narrative 04/26/2023 11:30 AM SILK PRINTER EXAMINATION: XR FOOT RIGHT 3 OR MORE [...] by: Ray Cruz M.D. Marco Antonio Reynoso ELECTROLOG OPERATOR IMG XR PROCEDURES Final Re sult documented in this encounter Visit Diagnoses Diagnosis Closed displaced fracture of fifth metatarsal bone of right foot, initial encounter documented in this encounter Care Teams Product Test Engineer Relationship Specialty Start Date End Date Lorie Vanessa NP [address] [place] [address] PCP - General Family Practice 05/29/22 No, Physician 06/08/21 documented as of this encounter
--- OUTSIDE RECORDS SUMMARY | 2024-06-06 05:23 | XMS_ITS | Encounter Summary ---
Author Organization [facility] Healthcare Address [address] [place] [address] Care Team Providers Care Rod Welder Name Role Phone No, Physician Unavailable Lorie Vanessa NP Primary Care Provider [phone] Reason for Visit * Reason Comments PT Treatment * Consultation (Routine) - Authorized Specialty Diagnoses / Procedures Referred By Cyn burnett Referred To Contact Physical Therapy Diagnoses Low back pain, unspecified back pain laterality, unspecified chronicity, unspecified whether [place] [address] [address] [facility] [address] [address] Phone: tel: fax: [address] [address] Referral ID Status Reason Start Date Expiration Date Visits Requested Visits Authorized [id number] Authorized Evaluate and Treat 07/01/2023 07/30/2024 9 9 Encounter Details Date Type Department Care Team (Late st Contact Info) Description 07/22/2023 2:00 PM MANAGER AUTO Therapy [facility] Physical Therapy [address] [place] [phone] Jodi Gan PT Low back pain, [...] file Legal Sex Female 6:55 PM MANAGER AUTO Gender Identity Female 06/06/2022 7:40 AM MANAGER AUTO Sexual Orientation Not on file documented as of this encounter Progress Notes * Jodi Gan, PT - 07/22/2023 2:00 PM CST Images from the original note were not included. Physical Therapy Visit PT Daily Treatment Note 07/22/2023 Emily Guerrier 1995 ICD-9-CM ICD-10-CM 1. Low back pain, unspecified back pain laterality, unspecified chronicity, unspecified whether sciatica present 724.2 M54.50 Precautions: ADJUSTOR: SAMMY TRUNER PHONE NUMBER: [phone] CLAIM #: [id number] DATE OF INJURY: 01/20/2023 VISIT LIMIT: 9 [...] Code Calculator Minutes for Ther Ex/Ther Procedure (53491):: 39 minutes Timed Code Treatment Minutes:: 39 minutes Total Treatment Time: 39 GER AUTO documented in this encounter Plan of Treatment Not on file documented as of this encounter Visit Diagnoses Diagnosis Low back pain, unspecified back pain laterality, unspecified chronicity, unspecified whether sciatica present- Primary documented in this encounter Care Teams Rod Welder Relationship Specialty Start Date End Date Lorie Vanessa NP [address] [place] [address] PCP - General Family Practice 05/29/22 No, Physician 06/08/21 documented as of this encounter
--- OUTSIDE RECORDS SUMMARY | 2024-06-06 05:23 | XMS_ITS | Encounter Summary ---
Author Organization [facility] Healthcare Address [address] [place] [address] Care Team Providers Care Acoustical Installer Name Role Phone No, Physician Unavailable Lorie Vanessa NP Primary Care Provider [phone] Encounter Details Date Type Department Care Team (Late st Contact Info) Description 07/10/2023 Orders Only [facility] Health Information Management [address] [place] [address] Scanning, Provider Social History Tobacco Use Types [...] on file Legal Sex Female 6:55 PM HYDROMETALLURGICAL ENGINEER Gender Identity Female 06/06/2022 7:40 AM HYDROMETALLURGICAL ENGINEER Sexual Orientation Not on file documented [...] on filedocumented in this encounter Care Teams Acoustical Installer Relationship Specialty Start Date End Date Lorie Vanessa NP [address] [place] [address] PCP - General Family Practice 05/29/22 No, Physician 06/08/21 documented as of this encounter
--- OUTSIDE RECORDS SUMMARY | 2024-06-06 05:23 | XMS_ITS | Encounter Summary ---
Author Organization [facility] Healthcare Address [address] [place] [address] Care Team Providers Care Doll Wigs Hackler Name Role Phone No, Physician Unavailable Lorie Vanessa NP Primary Care Provider [phone] Encounter Details Date Type Department Care Team (Late st Contact Info) Description 09/25/2023 Patient Self-Triage [facility] HealthCare/ Physicians [address] [place] [address] Mychart, Generic Provider [address] [place] [address] Social History Tobacco Use Types Packs/Day [...] on file Legal Sex Female 6:55 PM INTERNET MARKETING MANAGER Gender Identity Female 06/06/2022 7:40 AM INTERNET MARKETING MANAGER Sexual Orientation Not on file documented as of this encounter Plan of Treatment Not on file documented as of this encounter Visit Diagnoses Not on filedocumented in this encounter Care Teams Doll Wigs Hackler Relationship Specialty Start Date End Date Lorie Vanessa NP [address] [place] [address] PCP - General Family Practice 05/29/22 No, Physician 06/08/21 documented as of this encounter
--- OUTSIDE RECORDS SUMMARY | 2024-06-06 05:23 | XMS_ITS | Encounter Summary ---
Author Organization [facility] Address [address] [place] [address] Phone Care Team Providers Care Business Development Intern Name Role Phone No, Physician Unavailable Lorie Vanessa NP Primary Care Provider [phone] Encounter Details Date Type Department Care Team (Late st Contact Info) Description 07/16/2023 Orders Only [facility] Orthopaedic Surgery [address] [facility] 1st Floor [address] [place] [address] Katey Guerrero, RN Closed displaced fracture of [...] on file Legal Sex Female 6:55 PM REAL ESTATE OFFICER Gender Identity Female 06/06/2022 7:40 AM REAL ESTATE OFFICER Sexual Orientation Not on file documented as of this encounter Plan of Treatment Not on file documented as of this encounter Visit Diagnoses Diagnosis Closed displaced fracture of fifth metatarsal bone of right foot, initial encounter- Primary documented in this encounter Care Teams Business Development Intern Relationship Specialty Start Date End Date Lorie Vanessa NP [address] [place] [address] PCP - General Family Practice 05/29/22 No, Physician 06/08/21 documented as of this encounter
--- OUTSIDE RECORDS SUMMARY | 2024-06-06 05:23 | XMS_ITS | Encounter Summary ---
Author Organization [facility] Healthcare Address [address] [place] [address] Care Team Providers Care Name Plate Stamping Machine Operator Name Role Phone No, Physician Unavailable Lorie Vanessa NP Primary Care Provider [phone] Encounter Details Date Type Department Care Team (Late st Contact Info) Description 07/02/2023 Patient Self-Triage [facility] HealthCare/ Physicians [address] [place] [address] Mychart, Generic Provider [address] [place] [address] Social History Tobacco Use Types Packs/Day [...] on file Legal Sex Female 6:55 PM ELECTROSTATIC POWDER COATING TECHNICIAN Gender Identity Female 06/06/2022 7:40 AM ELECTROSTATIC POWDER COATING TECHNICIAN Sexual Orientation Not on file documented as of this encounter Plan of Treatment Not on file documented as of this encounter Visit Diagnoses Not on filedocumented in this encounter Care Teams Name Plate Stamping Machine Operator Relationship Specialty Start Date End Date Lorie Vanessa NP [address] [place] [address] PCP - General Family Practice 05/29/22 No, Physician 06/08/21 documented as of this encounter
--- OUTSIDE RECORDS SUMMARY | 2024-06-06 05:23 | XMS_ITS | Encounter Summary ---
Author Organization [facility] Healthcare Address [address] [place] [address] Care Team Providers Care Pmp Name Role Phone No, Physician Unavailable Lorie Vanessa NP Primary Care Provider [phone] Reason for Visit * Reason Onset Date Comments Medical Question/Miscellaneous 07/02/2023 Encounter Details Date Type Department Care Team ([facility] st Contact Info) Description 07/02/2023 Telephone [facility] Medical Group Primary Care at [address] [place] [address] Lorie Vanessa NP [address] [place] [address] Medical Question/Miscellaneous Social History Tobacco Use [...] on file Legal Sex Female 6:55 PM ONLINE SERVICES MANAGER Gender Identity Female 06/06/2022 7:40 AM ONLINE SERVICES MANAGER Sexual Orientation Not on file documented as of this encounter Miscellaneous Notes * Telephone Encounter - Pili Finn - 07/02/2023 12:28 PM CST Coming to weight loss seminar on 07/30/2023 NE SERVICES MANAGER * Telephone Encounter - Afshan Mejia - 07/02/2023 12:20 PM CST Medical Question/Miscellaneous Caller???s Concern: New [facility] appointment scheduled for 09/05/23. Does message need to be routed? Yes-Action Needed NE SERVICES MANAGER documented in this encounter Plan of Treatment Not on file documented as of this encounter Visit Diagnoses Not on filedocumented in this encounter Additional Health Concerns Infection Onset Date Last Indicated Resolved Time COVID: Suspected 07/05/2023 07/05/2023 07/05/2023 8:07 PM ONLINE SERVICES MANAGER documented as of this encounter Care Teams Pmp Relationship Specialty Start Date End Date Lorie Vanessa NP [address] [place] [address] PCP - General Family Practice 05/29/22 No, Physician 06/08/21 documented as of this encounter
--- OUTSIDE RECORDS SUMMARY | 2024-06-06 05:23 | XMS_ITS | Encounter Summary ---
Author Organization [facility] Healthcare Address [address] [place] [address] Care Team Providers Care Computer Training Specialist Name Role Phone No, Physician Unavailable Lorie Vanessa NP Primary Care Provider [phone] Encounter Details Date Type Department Care Team (Late st Contact Info) Description 07/31/2023 Telephone [facility] Physical Therapy [address] [place] [address] Jodi Gan PT Social History [...] on file Legal Sex Female 6:55 PM CONSUMER MARKETING ANALYST Gender Identity Female 06/06/2022 7:40 AM CONSUMER MARKETING ANALYST Sexual Orientation Not on file documented as of this encounter Miscellaneous Notes * Telephone Encounter - Jodi Gan, PT - 07/31/2023 3:58 PM CST Left voicemail for patient informing her of missed appointment on 07/31/2023 and informing her of later appointment availability in same day in order for patient to meet her plan of care. UMER MARKETING ANALYST documented in this encounter Plan of Treatment Not on file documented as of this encounter Visit Diagnoses Not on filedocumented in this encounter Care Teams Computer Training Specialist Relationship Specialty Start Date End Date Lorie Vanessa NP [address] [place] [address] PCP - General Family Practice 05/29/22 No, Physician 06/08/21 documented as of this encounter
--- OUTSIDE RECORDS SUMMARY | 2024-06-06 05:23 | XMS_ITS | Encounter Summary ---
Author Organization [facility] Healthcare Address [address] [place] [address] Care Team Providers Care Rv Servicer Name Role Phone No, Physician Unavailable Lorie Vanessa NP Primary Care Provider [phone] Reason for Visit * Reason Onset Date Comments COVID-19 EVALUATION 07/05/2023 Encounter Details Date Type Department Care Team (Late st Contact Info) Description 07/05/2023 Telephone [facility] Healthcare Occupatiuonal Health [address] [facility] Room [address] (Third Floor) [place] [address] Karen Ayala RN COVID-19 EVALUATION Social History [...] file Legal Sex Female 6:55 PM BRASS PLATER Gender Identity Female 06/06/2022 7:40 AM BRASS PLATER Sexual Orientation Not on file documented as of this encounter Miscellaneous Notes * Telephone Encounter - Anhai Main RN - 07/08/2023 8:07 AM BRASS PLATER Called to say she took a home Antigen test 07/07/2023 and it was Positive. Fatigue is new symptom. Positive COVID e-mail will be sent [facility] Covid Positive Test Result Employee will review guidance sent via email and reach out as needed with any questions. S PLATER S PLATER * Addendum Note - Lorie Atkinson CLT - 07/05/2023 7:25 PM CSTAddended by: LORIE ATKINSON on: 07/05/2023 07:25 PM Modules accepted: Orders S PLATER * Telephone Encounter - Karen Ayala RN - 07/05/2023 10:53 AM BRASS PLATER 05/26/2021 9:38 AM 06/12/2021 9:13 AM 07/05/2023 10:53 AM Employee COVID-19 Screening Email: [email or web address] Employee/Student ID# [id number] Fire Truck Driver/R And D Lab Technician name and email address: [email or web address] Tiffany Kee Are you an employee or student? Employee Employee Employee Employer: [employer] Are you 100% JUDY? No Employee Facility: [facility] Are you okay receiving positive results and further instructions via email? 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 Given your symptoms, you [...] you must leave work now. Notify your estimator and drafter supervisor that you have been directed to do so by the Occupational Health Call Center. Please go to the employee testing site as directed for your test. They should be expecting you; if there is any confusion, please call us at [phone]. Since you are reporting symptoms, wear a hospital provided mask when reporting for your test. While you are awaiting testing and results, you must remain off work. You should isolate yourself at home, avoid contact with any household members as much as possible, and stay in your home without leaving except for medical care. You should let your estimator and drafter supervisor know that you will not be coming to work. Although we will email your estimator and drafter supervisor to confirm this, it is still your responsibility to notify your estimator and drafter supervisor as you wouldfor any other work absence. If you have the option to garage worker and you feel well enough, it must be approved by your estimator and drafter supervisor We will notify you of your test results, which are usually available within 24- 48 hours. Your results will also post to your [facility] My Chart account ([email or web address]). Once yourresults [...] to prevent spread are available at: www.cdc.gov/coronavirus/2019-ncov S PLATER documented in this encounter Plan of Treatment Not on file documented as of this encounter Results * Influenza A/B, RSV, and COVID-19 PCR Nasopharyngeal (07/05/2023 3:00 PM BRASS PLATER) COVID-19 RNA Negative Negative [facility] Influenza A RNA Negative Negative [facility] Influenza B RNA Negative Negative [facility] RSV RNA Negative Negative [facility] Comment: Interpretive data: Testing performed by [facility]. This test is performed using the Corengi Xpert Xpress CoV-2/Flu/RSV plus assay. This is a multiplex, real-time reverse transcriptase PCR assay intended for the qualitative detection of nucleic acid from SARS-CoV-2, influenza A, influenza B, and respiratory syncytial virus. This assay has been cleared by the [place] Food and Drug administration. The performance characteristics have been verified by the [facility]. ??Results must be considered in the clinical context, and a negative result does not rule out infection. Interpretive Data last revised 2023 Nasopharyngeal 07/05/2023 3: 00 PM BRASS PLATER 07/05/2023 7:29 PM BRASS PLATER Narrative [facility] - 07/05/2023 8:06 PM BRASS PLATER Bill to [facility] - 1520 Patient is employed by/enrolled at:->[employer] Is the patient experiencing any symptoms consistent with COVID (eg. Fever, cough, shortness of breath)?->Yes Reason for testing?->Symptomatic Is the Patient experiencing symptoms consistent with COVID?->Yes Quan Graf MD LAB MICROBIOLOGY - GENERAL OR DERABLES Final Result [facility] [address] [address] Department of Laboratories [place], [place] [id number] documented in this encounter Visit Diagnoses Diagnosis Runny nose- Primary Other diseases of nasal cavity and sinuses Close exposure to COVID-19 virus Runny nose Other diseases of nasal cavity and sinuses Close exposure to COVID-19 virus documented in this encounter Additional Health Concerns Infection Onset Date Last Indicated Resolved Time COVID: Suspected 07/05/2023 07/05/2023 07/05/2023 8:07 PM BRASS PLATER documented as of this encounter Care Teams Rv Servicer Relationship Specialty Start Date End Date Charles, Lorie R., PRIMER CHARGING TOOL SETTER [address] [place] [address] PCP - General Family Practice 05/29/22 No, Physician 06/08/21 documented as of this encounter
--- OUTSIDE RECORDS SUMMARY | 2024-06-06 05:23 | XMS_ITS | Encounter Summary ---
Author Organization [facility] Healthcare Address [address] [place] [address] Care Team Providers Care Broacher Name Role Phone No, Physician Unavailable Lorie Vanessa NP Primary Care Provider [phone] Encounter Details Date Type Department Care Team (Late st Contact Info) Description 10/08/2023 11:45 AM CDT [facility] Building [address] [address] Vitamin D deficiency; Lipid screening; Morbid obesity [...] on file Legal Sex Female 6:55 PM DRY YARD WORKER Gender Identity Female 06/06/2022 7:40 AM DRY YARD WORKER Sexual Orientation Not on file documented [...] in this encounter Results * Thyroid Function [place] (10/08/2023 11:42 AM CDT) TSH 1.42 0.30 - 4.20 mcIUnit/mL Comment:Testing performed by : [facility], [address] [place] [address]., [address] Blood 10/08/2023 11:4 2 AM CDT 10/08/2023 1:50 PM CDT us Lorie Vanessa NP LAB BLOOD ORDERABLES Final Resul t [employer] [facility] [employer] [facility] [address] [facility] Department [place] [address] * (ABNORMAL) Lipid panel (10/08/2023 [...] last revised on 2018. Testing performed by: [address] [address] Triglycerides 196(H) <=149 mg/dL FRAN Comment: Interpretive [...] last revised on 2018. Testing performed by: [address] [address] HDL 33(L) >=40 mg/dL FRAN Comment: Interpretive [...] last revised on 2018. Testing performed by: [address] [address] LDL, calculated 107 <=129 mg/dL [facility] Comment: Interpretive Data Ages < or [...] last revised on 2018. Testing performed by: [address] [address] Non-HDL Cholesterol 146 mg/dL [facility] Comment: Interpretive Data Ages < or [...] last revised on 2018. Testing performed by: [facility], [address] [place] [address]., [address] Chol/HDL ratio 5 FRAN Comment:Testing performed by : [facility], [address] [place] [address]., [address] Blood 10/08/2023 11:4 2 AM CDT 10/08/2023 1:50 PM CDT us Lorie Vanessa RELEASE OF INFORMATION SPECIALIST LAB BLOOD ORDERABLES Final Resul t Performing Organization Address City/[facility]/ZIP Co de Phone Number [address] [employer] [address] * Vitamin D 25 hydroxy (10/08/2023 11:42 AM CDT) Vitamin D 25-OH 35.0 30.0 - 80.0 ng/mL Blood 10/08/2023 11:4 2 AM CDT 10/08/2023 2:43 PM CDT us Lorie Vanessa RELEASE OF INFORMATION SPECIALIST LAB BLOOD ORDERABLES Final Resul t Performing Organization Address City/[facility] Co de Phone Number [address] [address] documented in this encounter Visit Diagnoses Diagnosis Vitamin D deficiency Lipid screening Screening for lipoid disorders Morbid obesity with BMI of 50.0-59.9, adult (HCC) documented in this encounter Care Teams Broacher Relationship Specialty Start Date End Date Lorie Vanessa NP [address] [place] [address] PCP - General Family Practice 05/29/22 No, Physician 06/08/21 documented as of this encounter
--- OUTSIDE RECORDS SUMMARY | 2024-06-06 05:23 | XMS_ITS | Encounter Summary ---
Author Organization [facility] Healthcare Address [address] [place] [address] Care Team Providers Care Sport Psychologist Name Role Phone No, Physician Unavailable Lorie Vanessa NP Primary Care Provider [phone] Encounter Details Date Type Department Care Team (Late st Contact Info) Description 10/08/2023 Orders Only [facility] Medical [facility] [place] [address] [facility] [address] [place] [address] Lorie Vanessa NP [facility] [address] Social History Tobacco Use Types [...] on file Legal Sex Female 6:55 PM HAND ASSEMBLER FOR PULLER OVER Gender Identity Female 06/06/2022 7:40 AM HAND ASSEMBLER FOR PULLER OVER Sexual Orientation Not on file documented as [...] documented as of this encounter Care Teams Sport Psychologist Relationship Specialty Start Date End Date Lorie Vanessa NP [address] [place] [address] PCP - General Family Practice 05/29/22 No, Physician 06/08/21 documented as of this encounter
--- OUTSIDE RECORDS SUMMARY | 2024-06-06 05:23 | XMS_ITS | Encounter Summary ---
Author Organization [facility] Healthcare Address [address] [place] [address] Care Team Providers Care Secretarial Teacher Name Role Phone No, Physician Unavailable Lorie Vanessa NP Primary Care Provider Encounter Details Date Type Department Care Team (Late st Contact Info) Description 10/08/2023 11:30 AM CDT [facility] Building [address] [address] Secondary amenorrhea Social History Tobacco Use Types [...] on file Legal Sex Female 6:55 PM SOFTBALL CORE MOLDER Gender Identity Female 06/06/2022 7:40 AM SOFTBALL CORE MOLDER Sexual Orientation Not on file documented as [...] - 23.3 ng/mL Comment:Testing performed by : [facility], [address] [place]., [address] Blood 10/08/2023 11:3 8 AM CDT 10/08/2023 5:24 PM CDT Sita Lin MD LAB BLOOD ORDERABLES Final R esult Performing Organization Address [facility] de Phone Number JENNIFER[address] [employer] [place] [address] * Total testosterone (10/08/2023 11:38 AM CDT) Testosterone 29.90 8.40 - 48.10 ng/dL Blood 10/08/2023 11:3 8 AM CDT 10/08/2023 2:43 PM CDT Sita Lin MD LAB BLOOD ORDERABLES [facility] Performing Organization Address [facility] de Phone Number [address] [employer] [place] [address] * 17-Hydroxyprogesterone (10/08/2023 11:38 AM CDT) 17-hydroxyprogestero ne <40 ng/dL [facility] Comment: REFERENCE VALUE < 80 (Follicular) <285 (Luteal) ADDITIONAL INFORMATION This test was developed and its performance characteristics determined by [facility] in a manner consistent with CLIA requirements. This test has not been cleared or approved by the U.S. Food and Drug Administration. Test Performed by: [facility] [address] [place] [address] Counter Clerk [employer]: [employer] Pierre M.D. Ph.D.; CLIA# [id number] Testing performed by: [facility], [address] [place] [address]., [address] Blood 10/08/2023 11:3 8 AM CDT 10/08/2023 1:50 PM CDT Sita Lin MD LAB BLOOD ORDERABLES Final R esult Performing Organization Address City/[facility]/ZIP Co de Phone Number FRAN [address] [facility] [place] [address] [facility] * DHEA-sulfate (10/08/2023 11:38 AM CDT) DHEA-S 121.0 98.8 - 340.0 mcg/dL Comment:Testing performed by : [facility], [address] [place]., [address] Blood 10/08/2023 11:3 8 AM CDT 10/08/2023 5:24 PM CDT Sita Lin MD LAB BLOOD ORDERABLES Final R esult Performing Organization Address City/[facility] Co de Phone Number [address] [facility] [place] [address] * Insulin, total (10/08/2023 11:38 AM CDT) Insulin 18.5 2.6 - 25.0 mcIUnit/mL Blood 10/08/2023 11:3 8 AM CDT 10/08/2023 2:43 PM CDT Sita Lin MD LAB BLOOD ORDERABLES Final R esult JENNIFER[address] [facility] [place] [address] * Sex hormone binding globulin (10/08/2023 11:38 AM CDT) Sex steroid binding globulin 22.6 18.2 - 135.5 nmol/L [facility] Comment: Test Performed by: [facility] [address] [place] [address] Counter Clerk [employer]: [employer] Pierre M.D. Ph.D.; CLIA# [id number] Testing performed by: [address] [address] Blood 10/08/2023 11:3 8 AM CDT 10/08/2023 4:07 PM CDT Sita Lin MD LAB BLOOD ORDERABLES Final R esult Performing Organization Address City/[facility] de Phone Number [place] [address] [facility] [employer] [address] [facility] ref [facility] * Hemoglobin A1c (10/08/2023 11:38 AM CDT) Hgb A1C 5.3 4.0 - 5.6 % Comment:Testing performed by : [address] [address] Estimated Average Glucose 105 mg/dL FRAN Comment: The ADA recommends reporting an estimated Average Glucose (eAG) with all Hemoglobin A1c results using the equation derived from a study of 507 normal and diabetic adults. ??Minority populations were underrepresented and children were not included. ?? (Diabetes Care 31:6336-1812, 2008). ??The eAG is not equivalent to a fasting glucose. Testing performed by: [address] [address] Blood 10/08/2023 11:3 8 AM CDT 10/08/2023 1:50 PM CDT Sita Lin MD LAB BLOOD ORDERABLES Final R esult Performing Organization Address City/[facility] Co de Phone Number [facility] [address] [facility] [place] [address] * Rubella IgG antibody Blood (10/08/2023 11:38 AM CDT) Rubella IgG Reactive Reactive Blood 10/08/2023 11:3 8 AM CDT 10/08/2023 6:26 PM CDT Sita Lin MD LAB MICROBIOLOGY - GENERAL O RDERABLES Final Result Performing Organization Address City/[facility] Co de Phone Number [address] [facility] [place] [address] * Varicella Zoster IgG antibody Blood (10/08/2023 11:38 AM CDT) Pathologist [facility] VZV IgG Reactive Reactive Comment: Reactive: Results suggest response to immunization or prior exposure to the virus. Testing performed by: [facility], [address] [place]., [address] Blood 10/08/2023 11:3 8 AM CDT 10/08/2023 5:24 PM CDT Sita Lin MD LAB MICROBIOLOGY - GENERAL O RDERABLES Final Result Performing Organization Address [facility] Co de Phone Number [address] [facility] [place] [address] * Follicle stimulating hormone (10/08/2023 11:38 AM CDT) Pathologist [facility] FSH 4.7 1.5 - 12.4 IUnits/L Blood 10/08/2023 11:3 8 AM CDT 10/08/2023 2:43 PM CDT Sita Lin MD LAB BLOOD ORDERABLES Final R esult Performing Organization Address City/[facility] Co de Phone Number [address] [address] * LH (10/08/2023 11:38 AM CDT) LH [...] LAB BLOOD ORDERABLES Final R esult FRAN [address] [facility] Department [place] [address] * Estradiol (10/08/2023 11:38 AM [...] LAB BLOOD ORDERABLES Final R esult FRAN [address] [facility] Department [place] [address] documented in this encounter Visit Diagnoses Diagnosis Secondary amenorrhea Absence of menstruation documented in this encounter Care Teams Secretarial Teacher Relationship Specialty Start Date End Date Lorie Vanessa NP [address] [place] [address] PCP - General Family Practice 05/29/22 No, Physician 06/08/21 documented as of this encounter
--- OUTSIDE RECORDS SUMMARY | 2024-06-06 05:23 | XMS_ITS | Encounter Summary ---
Author Organization [facility] Healthcare Address [address] [place] [address] Care Team Providers Care Boat Tester Name Role Phone No, Physician Unavailable Lorie Vanessa NP Primary Care Provider [phone] Reason for Visit * Reason Comments PT Initial Eval * Consultation (Routine) - Authorized Specialty Diagnoses / Procedures Referred By Cyn burnett Referred To Contact Physical Therapy Diagnoses Low back pain, unspecified back pain laterality, unspecified chronicity, unspecified whether [place] [address] [address] [facility] [address] [address] Phone: tel: fax: [address] [phone] Referral ID Status Reason Start Date Expiration Date Visits Requested Visits Authorized [id number] Authorized Evaluate and Treat 07/01/2023 07/30/2024 9 9 Encounter Details Date Type Department Care Team (Late st Contact Info) Description 07/16/2023 3:00 PM FAC ENGINEER Therapy [facility] Physical Therapy [address] [place] [phone] Jodi Gan PT Low back pain, [...] on file Legal Sex Female 6:55 PM FAC ENGINEER Gender Identity Female 06/06/2022 7:40 AM FAC ENGINEER Sexual Orientation Not on file documented as of this encounter Progress Notes * Jodi Gan, PT - 07/16/2023 3:00 PM CST Images from the original note were not included. Physical Therapy Evaluation / Plan of Care 07/16/2023 Emily Guerrier 1995 27 [place] [address] [place] [address] ICD-9-CM ICD-10-CM 1. 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, pulling [...] Code Calculator Minutes for Ther Ex/Ther Procedure (56092):: 8 minutes Minutes for Manual Therapy (00248):: 6 minutes Timed Code Treatment Minutes:: 14 minutes Total Treatment Time: 53 ENGINEER ENGINEER documented in this encounter Plan of Treatment Not on file documented as of this encounter Visit Diagnoses Diagnosis Low back pain, unspecified back pain laterality, unspecified chronicity, unspecified whether sciatica present- Primary documented in this encounter Care Teams Boat Tester Relationship Specialty Start Date End Date Lorie Vanessa NP [address] [place] [address] PCP - General Family Practice 05/29/22 No, Physician 06/08/21 documented as of this encounter
--- OUTSIDE RECORDS SUMMARY | 2024-06-06 05:23 | XMS_ITS | Encounter Summary ---
Author Organization [facility] Healthcare Address [address] [place] [address] Care Team Providers Care Supervisor Final Name Role Phone No, Physician Unavailable Lorie Vanessa NP Primary Care Provider [phone] Reason for Visit * Reason Comments PT Treatment * Consultation (Routine) - Authorized Specialty Diagnoses / Procedures Referred By Cyn burnett Referred To Contact Physical Therapy Diagnoses Low back pain, unspecified back pain laterality, unspecified chronicity, unspecified whether [place] [address] [address] [facility] [address] [address] Phone: tel: fax: [address] [phone] Referral ID Status Reason Start Date Expiration Date Visits Requested Visits Authorized [id number] Authorized Evaluate and Treat 07/01/2023 07/30/2024 9 9 Encounter Details Date Type Department Care Team (Late st Contact Info) Description 07/17/2023 3:30 PM ADJUSTMENT EXAMINER Therapy [facility] Physical Therapy [address] [place] [phone] Jodi Gan PT Low back pain, [...] on file Legal Sex Female 6:55 PM ADJUSTMENT EXAMINER Gender Identity Female 06/06/2022 7:40 AM ADJUSTMENT EXAMINER Sexual Orientation Not on file documented [...] M54.50 Precautions: ADJUSTOR: SAMMY TURNER PHONE NUMBER: [phone] CLAIM #: [id number] DATE OF INJURY: 01/20/2023 VISIT LIMIT: 9 [...] Code Calculator Minutes for Ther Ex/Ther Procedure (40770):: 38 minutes Timed Code Treatment Minutes:: 38 minutes Total Treatment Time: 38 STMENT EXAMINER documented in this encounter Plan of Treatment Not on file documented as of this encounter Visit Diagnoses Diagnosis Low back pain, unspecified back pain laterality, unspecified chronicity, unspecified whether sciatica present- Primary documented in this encounter Care Teams Supervisor Final Relationship Specialty Start Date End Date Lorie Vanessa PLANT TECHNICIAN/CONTROL ROOM OPERATOR [address] [place] [address] PCP - General Family Practice 05/29/22 No, Physician 06/08/21 documented as of this encounter
--- OUTSIDE RECORDS SUMMARY | 2024-06-06 05:23 | XMS_ITS | Encounter Summary ---
Author Organization [facility] Healthcare Address [address] [place] [address] Care Team Providers Care Tractor Distributor Name Role Phone No, Physician Unavailable Lorie Vanessa NP Primary Care Provider [phone] Encounter Details Date Type Department Care Team (Latest Contact Info) Description 07/05/2023 3:00 PM FRINGE MAKER - 07/05/2023 11:59 PM FRINGE MAKER Hospital Encounter [facility] [address] [place] [address] Runny nose; Close exposure to COVID-19 virus [...] on file Legal Sex Female 6:55 PM FRINGE MAKER Gender Identity Female 06/06/2022 7:40 AM FRINGE MAKER Sexual Orientation Not on file documented [...] AND COVID-19 PCR Routine 07/05/2023 3:00 PM FRINGE MAKER Runny nose Close exposure to COVID-19 virus documented in this encounter Results * Influenza A/B, RSV, and COVID-19 PCR Nasopharyngeal (07/05/2023 3:00 PM FRINGE MAKER) Pathologist [facility] COVID-19 RNA Negative Negative [facility] Influenza A RNA Negative Negative [facility] Influenza B RNA Negative Negative [facility] RSV RNA Negative Negative [facility] Comment: Interpretive data: Testing performed by [facility]. This test is performed using the Neurolink Xpert Xpress CoV-2/Flu/RSV plus assay. This is a multiplex, real-time reverse transcriptase PCR assay intended for the qualitative detection of nucleic acid from SARS-CoV-2, influenza A, influenza B, and respiratory syncytial virus. This assay has been cleared by the [place] Food and Drug administration. The performance characteristics have been verified by the [facility]. ??Results must be considered in the clinical context, and a negative result does not rule out infection. Interpretive Data last revised 2023 Nasopharyngeal 07/05/2023 3: 00 PM FRINGE MAKER 07/05/2023 7:29 PM FRINGE MAKER Narrative FRAN - 07/05/2023 8:06 PM FRINGE MAKER Bill to [facility] [employer] Patient is employed by/enrolled at:->[employer] Is the patient experiencing any symptoms consistent with COVID (eg. Fever, cough, shortness of breath)?->Yes Reason for testing?->Symptomatic Is the Patient experiencing symptoms consistent with COVID?->Yes Quan Graf MD LAB MICROBIOLOGY - GENERAL OR DERABLES Final Result FRAN [address] [address] Department [place] [address] documented in this encounter Visit Diagnoses Diagnosis Runny nose Other diseases of nasal cavity and sinuses Close exposure to COVID-19 virus documented in this encounter Additional Health Concerns Infection Onset Date Last Indicated Resolved Time COVID: Suspected 07/05/2023 07/05/2023 07/05/2023 8:07 PM FRINGE MAKER documented as of this encounter Care Teams Tractor Distributor Relationship Specialty Start Date End Date Lorie Vanessa NP [address] [place] [address] PCP - General Family Practice 05/29/22 No, Physician 06/08/21 documented as of this encounter
--- OUTSIDE RECORDS SUMMARY | 2024-06-06 05:23 | XMS_ITS | Encounter Summary ---
Author Organization [facility] Healthcare Address [address] [place] [address] Care Team Providers Care Pediatric Ophthalmologist Name Role Phone No, Physician Unavailable Lorie Vanessa NP Primary Care Provider [phone] Encounter Details Date Type Department Care Team (Latest Contact Info) Description 06/03/2023 10:57 AM BUTTON CUTTING MACHINE OPERATOR - 06/03/2023 11:59 PM [facility] Hospital Encounter [address] [phone] Closed displaced fracture of fifth metatarsal bone [...] on file Legal Sex Female 6:55 PM BUTTON CUTTING MACHINE OPERATOR Gender Identity Female 06/06/2022 7:40 AM BUTTON CUTTING MACHINE OPERATOR Sexual Orientation Not on file [...] Read Routine (OP Routine) 06/03/2023 11:05 AM BUTTON CUTTING MACHINE OPERATOR Closed displaced fracture of fifth metatarsal bone of right foot, initial encounter documented in this encounter Results * XR Foot Right 3 or More Views (06/03/2023 11:05 AM BUTTON CUTTING MACHINE OPERATOR) Anatomical Region Laterality Modality Lower Extremities, Foot Right Digital Radiography 06/03/2023 1:46 PM BUTTON CUTTING MACHINE OPERATOR Impressions 06/03/2023 1:46 PM BUTTON CUTTING MACHINE OPERATOR Mild hallux valgus. ??Again noted is a base of the 5th metatarsal fracture which remains ununited to the rest of the 5th metatarsal. ??There is ??some evidence of healing. ??Alignment is unchanged and near-anatomic. ??No periosteal reaction. ??Continue follow-up. Electronically signed by: Thais Ortiz M.D. Narrative 06/03/2023 1:46 PM BUTTON CUTTING MACHINE OPERATOR EXAMINATION: 1. ??3 VIEWS OF THE RIGHT [...] encounter documented in this encounter Care Teams Pediatric Ophthalmologist Relationship Specialty Start Date End Date Lorie Vanessa NP [address] [place] [address] PCP - General Family Practice 05/29/22 No, Physician 06/08/21 documented as of this encounter
--- OUTSIDE RECORDS SUMMARY | 2024-06-06 05:23 | XMS_ITS | Encounter Summary ---
Author Organization [facility] Healthcare Address [address] [place] [address] Care Team Providers Care Audit Lead Name Role Phone No, Physician Unavailable Lorie Vanessa NP Primary Care Provider [phone] Reason for Visit * Reason Comments PT Treatment * Consultation (Routine) - Authorized Specialty Diagnoses / Procedures Referred By Cyn burnett Referred To Contact Physical Therapy Diagnoses Low back pain, unspecified back pain laterality, unspecified chronicity, unspecified whether [place] [address] [address] [facility] [address] [address] Phone: tel: fax: [address] [phone] Referral ID Status Reason Start Date Expiration Date Visits Requested Visits Authorized [id number] Authorized Evaluate and Treat 07/01/2023 07/30/2024 9 9 Encounter Details Date Type Department Care Team (Late st Contact Info) Description 07/19/2023 3:45 PM TIE BINDER Therapy [facility] Physical Therapy [address] [place] [phone] Jodi Gan PT Low back pain, [...] on file Legal Sex Female 6:55 PM TIE BINDER Gender Identity Female 06/06/2022 7:40 AM TIE BINDER Sexual Orientation Not on file documented as of this encounter Progress Notes * Jodi Gan, PT - 07/19/2023 3:45 PM CST Physical Therapy Visit PT Daily Treatment Note 07/19/2023 Emily Guerrier 1995 ICD-9-CM ICD-10-CM 1. Low back pain, unspecified back pain laterality, unspecified chronicity, unspecified whether sciatica present 724.2 M54.50 Precautions: ADJUSTOR: SAMMY TURNER PHONE NUMBER: [phone] CLAIM #: [id number] DATE OF INJURY: 01/20/2023 VISIT LIMIT: 9 [...] Code Calculator Minutes for Ther Ex/Ther Procedure (79770):: 38 minutes Timed Code Treatment Minutes:: 38 minutes BINDER documented in this encounter Plan of Treatment Not on file documented as of this encounter Visit Diagnoses Diagnosis Low back pain, unspecified back pain laterality, unspecified chronicity, unspecified whether sciatica present- Primary documented in this encounter Care Teams Audit Lead Relationship Specialty Start Date End Date Lorie Vanessa NP [address] [place] [address] PCP - General Family Practice 05/29/22 Physician Mel 06/08/21 documented as of this encounter
--- OUTSIDE RECORDS SUMMARY | 2024-06-06 05:23 | XMS_ITS | Encounter Summary ---
Author Organization [facility] Healthcare Address [address] [place] [address] Care Team Providers Care Load Out Supervisor Name Role Phone No, Physician Unavailable Lorie Vanessa NP Primary Care Provider [phone] Reason for Visit * Reason Comments URI Fatigue; runny nose; chills; Encounter Details Date Type Department Care Team (Late st Contact Info) Description 05/29/2023 4:00 PM PARTS SALES ASSOCIATE Office Visit [facility] Medical Group Primary Care at [address] [address] Lorie Vanessa NP [address] [place] [address] Upper respiratory infection with cough and [...] file Legal Sex Female 6:55 PM PARTS SALES ASSOCIATE Gender Identity Female 06/06/2022 7:40 AM PARTS SALES ASSOCIATE Sexual Orientation Not on file documented as of this encounter Last Filed Vital Signs Vital Sign Reading Time Taken Comments Blood Pressure 127/83 05/29/2023 3:56 PM PARTS SALES ASSOCIATE Pulse 88 05/29/2023 3:56 PM PARTS SALES ASSOCIATE Temperature 35.6 ??C (96.1 ??F) 05/29/2023 3:56 PM CS T Respiratory Rate 14 05/29/2023 3:56 PM PARTS SALES ASSOCIATE Oxygen Saturation 97% 05/29/2023 3:56 PM PARTS SALES ASSOCIATE Inhaled Oxygen Concentration - - Weight 155.8 kg (343 lb 8 oz) 05/29/2023 3:56 PM PARTS SALES ASSOCIATE Height 162.6 cm (5' 4.02 ) 05/29/2023 3:56 PM CS T Body Mass Index 58.93 05/29/2023 3:56 PM PARTS SALES ASSOCIATE documented in this encounter Patient Instructions * Patient Instructions* Lorie Vanessa NP - 05/29/2023 4:00 PM PARTS SALES ASSOCIATE COVID-19, influenza, and RSV test were negative. Increase clear liquids, rest, and vitamin C in diet. Sleep with head elevated and use a cool mist vaporizer and Vicks VapoRub at bedtime for cough andcongestion. Follow-up if symptoms don't resolve, ER for new or worsening symptoms. S SALES ASSOCIATE documented in this encounter Progress Notes * [...] Thought Content: Thought content normal. Lorie Vanessa EMAIL ADMINISTRATOR BC S SALES ASSOCIATE documented in this encounter Miscellaneous Notes * Assessment & Plan Note - Lorie Vanessa NP - 05/31/2023 7:27 AM CSTAssociated Problem(s): Cough COVID-19, influenza, and RSV test were negative, see plan of care for upper respiratory infection with cough and congestion. S SALES ASSOCIATE * Assessment & Plan Note - Lorie Vanessa NP - 05/31/2023 7:27 AM CSTAssociated Problem(s): Body aches COVID-19, influenza, and RSV test were negative, see plan of care for upper respiratory infection with cough and congestion. S SALES ASSOCIATE * Assessment & Plan Note - Lorie [...] resolve, ER for new or worsening symptoms. S SALES ASSOCIATE documented in this encounter Plan of Treatment Not on file documented as of this encounter Procedures Procedure Name Priority Date/Time Associated Diagnosis Comments POCT RAPID RSV Routine 05/29/2023 4:45 PM PARTS SALES ASSOCIATE Cough, unspecified type Body aches POC INFLUENZA A/B, COVID-19 ANTIGEN Routine 05/29/2023 4:20 PM PARTS SALES ASSOCIATE Cough, unspecified type Body aches documented in this encounter Results * POCT rapid RSV (05/29/2023 4:45 PM PARTS SALES ASSOCIATE) Rapid RSV, POC Negative Negative Lot Number [id number] Comment:Exp [id number] QC Control Line Acceptable Swab 05/29/2023 4:45 PM PARTS SALES ASSOCIATE Lorie Vanessa FRAME STRIPPER POINT OF CARE TEST ORDERABLES Fi nal Result * POC Influenza A/B, COVID-19 antigen (05/29/2023 4:20 PM PARTS SALES ASSOCIATE) Influenza A Ag, POC Negative Negative [facility] [place] 210 Influenza B Ag, POC Negative Negative [facility] 210 COVID-19 Ag POC Presumptive Negative Presumptive Negative, Invalid [facility] PCP [facility] 210 Comment:Lot [id number] Exp [id number] 24 Nasal 05/29/2023 4:20 PM PARTS SALES ASSOCIATE Lorie Vanessa FRAME STRIPPER POINT OF CARE TEST ORDERABLES Fi nal Result Performing Organization Address City/State/[facility] Co de Phone Number [facility] [phone] documented in this encounter Visit Diagnoses [...] 05/29/2023 added in this encounter Care Teams Load Out Supervisor Relationship Specialty Start Date End Date Lorie Vanessa NP [address] [place] [address] PCP - General Family Practice 05/29/22 No, Physician 06/08/21 documented as of this encounter
--- OUTSIDE RECORDS SUMMARY | 2024-06-06 05:23 | XMS_ITS | Encounter Summary ---
Author Organization [facility] Healthcare Address [address] [place] [address] Care Team Providers Care Tin Assorter Name Role Phone No, Physician Unavailable Lorie Vanessa NP Primary Care Provider [phone] Encounter Details Date Type Department Care Team (Late st Contact Info) Description 12/20/2023 Patient Self-Triage [facility] HealthCare/ Physicians [address] [place] [address] Mychart, Generic Provider [address] [place] [address] Social History Tobacco Use Types Packs/Day [...] on file Legal Sex Female 6:55 PM MAT CUTTER Gender Identity Female 06/06/2022 7:40 AM MAT CUTTER Sexual Orientation Not on file documented as of this encounter Plan of Treatment Not on file documented as of this encounter Visit Diagnoses Not on filedocumented in this encounter Care Teams Tin Assorter Relationship Specialty Start Date End Date Lorie Vanessa NP [address] [place] [address] PCP - General Family Practice 05/29/22 No, Physician 06/08/21 documented as of this encounter
--- OUTSIDE RECORDS SUMMARY | 2024-06-06 05:23 | XMS_ITS | Encounter Summary ---
Author Organization [facility] Healthcare Address [address] [place] [address] Care Team Providers Care First Aid Instructor Name Role Phone No, Physician Unavailable Lorie Vanessa NP Primary Care Provider [phone] Reason for Referral * Diagnostic Imaging (Routine) - Pending Review Specialty Diagnoses / Procedures Referred By Contac t Referred To Contact Diagnoses Pelvic and perineal pain Procedures US Pelvis W Endovaginal Sita Lin MD [address] [place] [address] Phone: tel: fax: [address] [phone] Referral ID Status Reason Start Date Expiration Date V isits Requested Visits Authorized [id number] Pending Review 11/04/2023 12/03/2024 1 1 Reason for Visit * Diagnostic Imaging (Routine) - Pending Review Specialty Diagnoses / Procedures Referred By Contjonathan t Referred To Contact Diagnoses Pelvic and perineal pain Procedures US Pelvis W Endovaginal Sita Lin MD [address] [place] [address] Phone: tel: fax: [facility] [address] [place] [phone] Referral ID Status Reason Start Date Expiration Date V isits Requested Visits Authorized [id number] Pending Review 11/04/2023 12/03/2024 1 1 Encounter Details Date Type Department Care Team (Latest Contact Info) Description 11/07/2023 1:06 PM CDT - 11/07/2023 11:59 PM CDT Hospital Encounter [facility] Ultrasound [address] [place] [phone] Pelvic and perineal pain Discharge Disposition: Discharge [...] on file Legal Sex Female 6:55 PM FOREIGN STUDENT ADVISER Gender Identity Female 06/06/2022 7:40 AM FOREIGN STUDENT ADVISER Sexual Orientation Not on file documented as [...] PM T: ??11/07/2023 2:33 PM Report ID: [id number] Reading Location: ??[id number] Procedure Note Erasmo Gregory MD - 11/07/2023 [...] Erasmo Gregory M.D. SN: SN Report ID: [id number] Reading Location: [id number] Sita Lin MD IMG US PROCEDURES Final Resu lt documented in this encounter Visit Diagnoses Diagnosis Pelvic and perineal pain documented in this encounter Care Teams First Aid Instructor Relationship Specialty Start Date End Date Lorie Vanessa NP [address] [place] [address] PCP - General Family Practice 05/29/22 No, Physician 06/08/21 documented as of this encounter
--- OUTSIDE RECORDS SUMMARY | 2024-06-06 05:23 | XMS_ITS | Encounter Summary ---
Author Organization [facility] Address [address] [place] [address] Phone Care Team Providers Care Tare Weigher Name Role Phone No, Physician Unavailable Lorie Vanessa NP Primary Care Provider [phone] Encounter Details Date Type Department Care Team (Late st Contact Info) Description 07/22/2023 Telephone [facility] Allergy and Immunology [address] [facility] [address] [place] [address] Aimee Amaro Social History Tobacco [...] on file Legal Sex Female 6:55 PM TRIAL ATTORNEY Gender Identity Female 06/06/2022 7:40 AM TRIAL ATTORNEY Sexual Orientation Not on file documented as of this encounter Miscellaneous Notes * Telephone Encounter - Aimee Amaro - 07/22/2023 11:01 AM CST VRFD PT HAS NOT BEEN SCHEDULED FOR CT. PHONED PT @ [phone] @ 10:20 AM, LFT MSG STATING TO CALL NURSE COORDINATOR TO SCHEDULE CT. L ATTORNEY documented in this encounter Plan of Treatment Not on file documented as of this encounter Visit Diagnoses Not on filedocumented in this encounter Care Teams Tare Weigher Relationship Specialty Start Date End Date Lorie Vanessa NP [address] [place] [address] PCP - General Family Practice 05/29/22 No, Physician 06/08/21 documented as of this encounter
--- OUTSIDE RECORDS SUMMARY | 2024-06-06 05:23 | XMS_ITS | Encounter Summary ---
Author Organization [facility] Healthcare Address [address] [place] [address] Care Team Providers Care Production Stage Manager Name Role Phone No, Physician Unavailable Lorie Vanessa NP Primary Care Provider Reason for Visit * Reason Comments Diarrhea Entered automaticall y based on patient selection in [employer]. Encounter Details Date Type Department Care Team (Late st Contact Info) Description 09/25/2023 11:15 AM CDT E-Visit [facility] Medical Group Virtual Care [address] [place] [phone] Jayshree Carrizales NP [address] [place] [address] E-Visit for Diarrhea Social History Tobacco Use [...] on file Legal Sex Female 6:55 PM NURSING UNIT MANAGER Gender Identity Female 06/06/2022 7:40 AM NURSING UNIT MANAGER Sexual Orientation Not on file documented [...] on filedocumented in this encounter Care Teams Production Stage Manager Relationship Specialty Start Date End Date Lorie Vanessa NP [address] [place] [address] PCP - General Family Practice 05/29/22 No, Physician 06/08/21 documented as of this encounter
--- OUTSIDE RECORDS SUMMARY | 2024-06-06 05:23 | XMS_ITS | Encounter Summary ---
Author Organization [facility] Healthcare Address [address] [place] [address] Care Team Providers Care Gambreler Name Role Phone No, Physician Unavailable Lorie Vanessa NP Primary Care Provider Encounter Details Date Type Department Care Team (Late st Contact Info) Description 06/17/2023 Orders Only [facility] Medical Group Obstetrical Gynecology [address] [facility] [address] [place] [phone] Sita Lin MD [address] [address] Secondary amenorrhea (Primary Dx) Social [...] on file Legal Sex Female 6:55 PM OIL WELL CABLE TOOL DRILLER Gender Identity Female 06/06/2022 7:40 AM OIL WELL CABLE TOOL DRILLER Sexual Orientation Not on file documented as [...] LAB BLOOD ORDERABLES Final R esult FRAN [address] [facility] [place] [address] * LH (10/08/2023 11:38 AM [...] ORDERABLES Final R esult Performing Organization Address [facility] Co de Phone Number FRAN [address] [place] [address] * Follicle stimulating hormone (10/08/2023 11:38 AM CDT) FSH 4.7 1.5 - 12.4 IUnits/L Blood 10/08/2023 11:3 8 AM CDT 10/08/2023 2:43 PM CDT Sita Lin MD LAB BLOOD ORDERABLES Final R esult Performing Organization Address City/[facility] Co de Phone Number [address] [place] [address] * Varicella Zoster IgG antibody Blood (10/08/2023 11:38 AM CDT) VZV IgG Reactive Reactive Comment: Reactive: Results suggest response to immunization or prior exposure to the virus. Testing performed by: [facility], [address] [facility], [place]., [address] Blood 10/08/2023 11:3 8 AM CDT 10/08/2023 5:24 PM CDT Sita Lin MD LAB MICROBIOLOGY - GENERAL O RDERABLES Final Result Performing Organization Address City/[facility] Co de Phone Number FRAN [address] [facility] [place] [address] * Rubella IgG antibody Blood (10/08/2023 11:38 AM CDT) Rubella IgG Reactive Reactive Blood 10/08/2023 11:3 8 AM CDT 10/08/2023 6:26 PM CDT Sita Lin MD LAB MICROBIOLOGY - GENERAL O RDERABLES Final Result Performing Organization Address [facility] de Phone Number JENNIFERFORMERLY NAMED [facility] [address] [facility] [place] [address] * Hemoglobin A1c (10/08/2023 11:38 AM CDT) Pathologist [facility] Hgb A1C 5.3 4.0 - 5.6 % Comment:Testing performed by : [address] [address] Estimated Average Glucose 105 mg/dL FRAN Comment: The ADA recommends reporting an estimated Average Glucose (eAG) with all Hemoglobin A1c results using the equation derived from a study of 507 normal and diabetic adults. ??Minority populations were underrepresented and children were not included. ?? (Diabetes Care 31:9114-6423, 2008). ??The eAG is not equivalent to a fasting glucose. Testing performed by: [address] [address] Blood 10/08/2023 11:3 8 AM CDT 10/08/2023 1:50 PM CDT Sita Lin MD LAB BLOOD ORDERABLES Final R esult Performing Organization Address City/[facility] Co de Phone Number [place] [address] [facility] [place] [address] * Sex hormone binding globulin (10/08/2023 11:38 AM CDT) Sex steroid binding globulin 22.6 18.2 - 135.5 nmol/L [facility] Comment: Test Performed by: [facility] [address] [place] [address] Log Peeler: Lexx Pierre M.D. Ph.D.; CLIA# [id number] Testing performed by: [facility], [address] [place] [address]., [address] Blood 10/08/2023 11:3 8 AM CDT 10/08/2023 4:07 PM CDT Sita Lin MD LAB BLOOD ORDERABLES Final R esult Performing Organization Address City/[facility]/ZIP Co de Phone Number FRAN [address] [place] [address] [place] ref Lab * Insulin, total (10/08/2023 11:38 AM CDT) Pathologist [facility] Insulin 18.5 2.6 - 25.0 mcIUnit/mL Blood 10/08/2023 11:3 8 AM CDT 10/08/2023 2:43 PM CDT Sita Lin MD LAB BLOOD ORDERABLES Final R esult [address] [place] [address] * DHEA-sulfate (10/08/2023 11:38 AM CDT) DHEA-S 121.0 98.8 - 340.0 mcg/dL Comment:Testing performed by : [facility], [address] [facility], [place]., [address] Blood 10/08/2023 11:3 8 AM CDT 10/08/2023 5:24 PM CDT Sita Lin MD LAB BLOOD ORDERABLES Final R esult Performing Organization Address [facility] de Phone Number FRAN [address] [address] * 17-Hydroxyprogesterone (10/08/2023 11:38 AM CDT) 17-hydroxyprogestero ne <40 ng/dL [facility] Comment: REFERENCE VALUE < 80 (Follicular) <285 (Luteal) ADDITIONAL INFORMATION This test was developed and its performance characteristics determined by [facility] in a manner consistent with CLIA requirements. This test has not been cleared or approved by the U.S. Food and Drug Administration. Test Performed by: [facility] [address] [place] [address] Log Peeler: Lexx Pierre M.D. Ph.D.; CLIA# [id number] Testing performed by: [facility], [address] [place] [address]., [address] Blood 10/08/2023 11:3 8 AM CDT 10/08/2023 1:50 PM CDT Sita Lin MD LAB BLOOD ORDERABLES Final R esult Performing Organization Address [facility] Co de Phone Number FRAN [address] [place] [address] [place] ref Lab * Total testosterone (10/08/2023 11:38 AM CDT) Testosterone 29.90 8.40 - 48.10 ng/dL Blood 10/08/2023 11:3 8 AM CDT 10/08/2023 2:43 PM CDT Sita Lin MD LAB BLOOD ORDERABLES Final R esult Performing Organization Address City/[facility]/ZIP Co de Phone Number FRAN [address] [place] [address] * Prolactin (10/08/2023 11:38 AM CDT) Prolactin 17.8 4.8 - 23.3 ng/mL Comment:Testing performed by : [facility], [address] [place]., [address] Blood 10/08/2023 11:3 8 AM CDT 10/08/2023 5:24 PM CDT Sita Lin MD LAB BLOOD ORDERABLES Final R esult Performing Organization Address City/[facility] Co de Phone Number FRAN [address] [address] documented in this encounter Visit Diagnoses Diagnosis Secondary amenorrhea- Primary Absence of menstruation Secondary amenorrhea Absence of menstruation documented in this encounter Care Teams Gambreler Relationship Specialty Start Date End Date Lorie Vanessa NP [address] [place] [address] PCP - General Family Practice 05/29/22 No, Physician 06/08/21 documented as of this encounter
--- OUTSIDE RECORDS SUMMARY | 2024-06-06 05:23 | XMS_ITS | Encounter Summary ---
Author Organization [facility] Healthcare Address [address] [place] [address] Care Team Providers Care Linux Administrator Name Role Phone No, Physician Unavailable Lorie Vanessa NP Primary Care Provider Encounter Details Date Type Department Care Team (Latest Contact Info) Description 05/17/2023 12:02 PM FUDGER - 05/17/2023 11:59 PM FUDGER Hospital Encounter [facility] Building [address] [address] Well woman exam Discharge Disposition: Discharge to [...] on file Legal Sex Female 6:55 PM FUDGER Gender Identity Female 06/06/2022 7:40 AM FUDGER Sexual Orientation Not on file documented as [...] PROCESSING (MOLECULAR COMPONENT) Routine 05/17/2023 11:10 AM FUDGER Well woman exam PAP WITH REFLEX TO HIGH RISK HPV Routine 05/17/2023 11:10 AM FUDGER Well woman exam documented in this encounter Results * ThinPrep processing (Molecular component) (05/17/2023 11:10 AM FUDGER) ThinPrep processing (Molecular component) Specimen received for processing. FRAN HAYS Comment:Testing performed by : [facility], [address] [place]., [address] Endocervical 05/17/2023 11:1 0 AM FUDGER 05/21/2023 8:31 AM FUDGER us Sita Lin MD LAB BODY FLUIDS AND STOOLS O RDERABLES Final Result FRAN [address] [facility] Department [place] [address] * Pap with reflex to High Risk HPV and Genotyping (Cytology Component) (05/17/2023 11:10 AM FUDGER) Endocervical (Pap test) 05/17/2023 11:10 AM FUDGER 05/19/2023 11:35 PM FUDGER Narrative PATHOLOGY [facility] - 05/23/2023 5:10 PM FUDGER EPIC results best viewed via link to PDF [facility] [place] [address] Note to Patients: This report [...] Gender: ??F : ??1995 (Age: 27) Address: ??[address] [place] [address] ??[address] Hospital #: ??[id number] Service: ??DEFAULT Location: ?? Patient Type: ??[facility] SPECIMEN Taken: ??05/17/2023 Received: ??05/19/2023 [...] clinical information and biopsy results as indicated. [facility] Clinical Laboratory Improvement Amendments (CLIA) mandate that cytologic and histologic results be correlated for laboratory microbiology quality control technician & improvement standards. ??FOR ALL HIGH-GRADE CASES [...] determined by the Surgical Pathology Department at [facility] as part of an ongoing software quality manager program and in compliance with federally mandated [...] determined by the Surgical Pathology Department of [facility]. ??It has not been cleared or approved by the U. S. Food and Drug Administration. Sita Lin MD LAB CYTOLOGY ORDERABLES Magda moreau Result PATHOLOGY [facility] documented in this encounter Visit Diagnoses Diagnosis Well woman exam Routine general medical examination at a health care facility documented in this encounter Care Teams Linux Administrator Relationship Specialty Start Date End Date Lorie Vanessa NP [address] [place] [address] PCP - General Family Practice 05/29/22 No, Physician 06/08/21 documented as of this encounter
--- OUTSIDE RECORDS SUMMARY | 2024-06-06 05:23 | XMS_ITS | Encounter Summary ---
Author Organization [facility] Healthcare Address [address] [place] [address] Care Team Providers Care Lpc Name Role Phone No, Physician Unavailable Lorie Vanessa NP Primary Care Provider Encounter Details Date Type Department Care Team (Late st Contact Info) Description 07/19/2023 Plan of Care Documentation [facility] Physical Therapy [address] [place] [address] Social History Tobacco Use Types [...] on file Legal Sex Female 6:55 PM MECHANICAL SYSTEMS DESIGNER Gender Identity Female 06/06/2022 7:40 AM MECHANICAL SYSTEMS DESIGNER Sexual Orientation Not on file documented as of this encounter Plan of Treatment Not on file documented as of this encounter Visit Diagnoses Not on filedocumented in this encounter Care Teams Lpc Relationship Specialty Start Date End Date Lorie Vanessa NP [address] [place] [phone] PCP - General Family Practice 05/29/22 No, Physician 06/08/21 documented as of this encounter
--- OUTSIDE RECORDS SUMMARY | 2024-06-06 05:23 | XMS_ITS | Encounter Summary ---
Author Organization [facility] Healthcare Address [address] [place] [address] Care Team Providers Care Logging Tractor Operator Swamp Name Role Phone No, Physician Unavailable Lorie Vanessa NP Primary Care Provider [phone] Encounter Details Date Type Department Care Team (Late st Contact Info) Description 12/20/2023 Patient Self-Triage [facility] HealthCare/ Physicians [address] [place] [address] Mychart, Generic Provider [address] [place] [address] Social History Tobacco Use Types Packs/Day [...] on file Legal Sex Female 6:55 PM PRODUCTION SOUND MIXER Gender Identity Female 06/06/2022 7:40 AM PRODUCTION SOUND MIXER Sexual Orientation Not on file documented as of this encounter Plan of Treatment Not on file documented as of this encounter Visit Diagnoses Not on filedocumented in this encounter Care Teams Logging Tractor Operator Swamp Relationship Specialty Start Date End Date Lorie Vanessa NP [address] [place] [address] PCP - General Family Practice 05/29/22 No, Physician 06/08/21 documented as of this encounter
--- OUTSIDE RECORDS SUMMARY | 2024-06-06 05:23 | XMS_ITS | Encounter Summary ---
Author Organization [facility] Healthcare Address [address] [place] [address] Care Team Providers Care Motor Vehicle Assembler Name Role Phone No, Physician Unavailable Lorie Vanessa NP Primary Care Provider [phone] Reason for Visit * Reason Comments COVID-19 EVALUATION Encounter Details Date Type Department Care Team (Latest Contact Info) Description 07/05/2023 3:00 PM USER EXPERIENCE MANAGER Clinical Support [facility] Care at [address] [address] Encounter for screening for COVID-19 [...] on file Legal Sex Female 6:55 PM USER EXPERIENCE MANAGER Gender Identity Female 06/06/2022 7:40 AM USER EXPERIENCE MANAGER Sexual Orientation Not on file documented as of this encounter Progress Notes * Poonam Finn MA - 07/05/2023 3:00 PM CST Patient here for [facility] health testing EXPERIENCE MANAGER documented in this encounter Plan of Treatment Not on file documented as of this encounter Visit Diagnoses Diagnosis Encounter for screening for COVID-19- Primary documented in this encounter Additional Health Concerns Infection Onset Date Last Indicated Resolved Time COVID: Suspected 07/05/2023 07/05/2023 07/05/2023 8:07 PM USER EXPERIENCE MANAGER documented as of this encounter Care Teams Motor Vehicle Assembler Relationship Specialty Start Date End Date Lorie Vanessa NP [address] [place] [address] PCP - General Family Practice 05/29/22 No, Physician 06/08/21 documented as of this encounter
--- OUTSIDE RECORDS SUMMARY | 2024-06-06 05:23 | XMS_ITS | Encounter Summary ---
Author Organization [facility] Healthcare Address [address] [place] [address] Care Team Providers Care Mold Bunch Trimmer Name Role Phone No, Physician Unavailable Lorie Vanessa NP Primary Care Provider [phone] Reason for Visit * Reason Comments Palpitations Diarrhea Encounter Details Date Type Department Care Team (Late st Contact Info) Description 03/05/2024 2:57 PM CDT - 03/05/2024 6:27 PM CDT Emergency [facility] Emergency Department [address] [place] [address] Nausea vomiting and diarrhea (Primary [...] file Legal Sex Female 6:55 PM PARTS CLERK Gender Identity Female 06/06/2022 7:40 AM PARTS CLERK Sexual Orientation Not on file documented [...] * Acute Nausea and Vomiting (AfterCare(R) Instructions(ER/ED)) (Kyrgyz) * Acute Diarrhea (AfterCare(R) Instructions(ER/ED)) (Kyrgyz) documented in this encounter Medications at Time [...] or any other complaints. PCP: Lorie Vanessa FISHERIES TECHNICIAN PAST MEDICAL HISTORY Past Medical History: Diagnosis [...] Course as of 03/05/24 1821 Time: 03/05 485 Comment: Nausea resolved but pt still c/o [...] PATIENT INSTRUCTED TO FOLLOW UP Lorie Vanessa, FISHERIES TECHNICIAN [address] [place] [address] In 2 days DISCHARGE MEDICATIONS Your [...] Your Medications These medications were sent to [id number] - [place], [place] - [address] [facility] [address], [facility] [phone] dicyclomine 20 mg tablet HYDROcodone-acetaminophen 5-325 mg per tablet prochlorperazine 10 mg tablet This examination was transcribed using the SpunLive voice recognition system without human supervisor rough end. In an effort to expedite patient care, this report has not been adjusted for typographical, grammatical, and syntax by a trained medical records manager. Victoria Falk PA 03/05/24 1821 Cosigned by [...] PM T: ??03/05/2024 5:28 PM Report ID: [id number] Reading Location: ??[id number] Procedure Note Segundo Bateman MD - 03/05/2024 [...] Bateman M.D., D.O. MW: MAGALYS Report ID: [id number] Reading Location: [id number] Victoria LEYVA [facility] CT PROCEDURES Final Re sult * POCT [...] , DNA Comment:Testing performed by : [facility], [address] [place] [address]., [address] C. diff interp Negative for toxigenic Clostridioides (Clostridium) difficile. ??Analysis performed by detection of gene(s) encoding C. difficile toxin(s). ??The nucleic acid detection assay used is cleared by the [place] Food and Drug administration and its performance characteristics have been verified by the performing laboratory. FRAN HAYS Comment:Testing performed by : [facility], [address] [place] [address]., [address] Stool 03/05/2024 3:41 PM CDT 03/05/2024 3:48 PM CDT Victoria LEYVA LAB MICROBIOLOGY - GENERAL ORDERABLES Final Result FRAN HAYS [address] [facility] Department [place] [address] * Stool culture Stool Rectum (03/05/2024 3:41 PM CDT) Direct Specimen Exam Shiga Toxin Testing: Antigen detection assay for Shiga-toxin NEGATIVE for Shiga Toxin 1 and Shiga Toxin 2. Comment:Testing performed by : [facility], [address] [place]., [address] Report Final Report: No growth of enteric bacterial pathogens FRAN HAYS Comment:Testing performed by : [facility], [address] [place] [address], [place]., [address] Stool (Rectum) 03/05/2024 3: 41 PM CDT 03/05/2024 7:46 PM CDT Narrative FRAN HAYS - 03/09/2024 10:41 AM CDT Specimen received in a sterile container. Testing performed by [facility] ([phone]). Routine stool cultures include procedures to detect Salmonella, Shigella, Edwardsiella, Aeromonas, Pleisiomonas, Campylobacter, Yersinia, E. coli O157, and Shiga-like toxins. ?? Vibrio is cultured only upon special request. ??If Vibrio is suspected, please call the laboratory at [phone]. Interpretive data was last updated October 01, 2016. Victoria LEYVA LAB MICROBIOLOGY - GENERAL ORDERABLES Final Result Performing Organization Address City/[facility]/ZIP Co de Phone Number FRAN [address] [facility] [employer] [address] * (ABNORMAL) Urinalysis, microscopic only (03/05/2024 3:40 PM CDT) WBC, ur 0-5 0 - 5 /HPF Comment:Testing performed by : [address] [address] RBC, ur 11-20(A) 0 - 2 /HPF FRAN Comment:Testing performed by : [address] [address] Epithelial cells, squamous, ur >50(A) 0 - 5 /HPF FRAN Comment:Testing performed by : [address] [address] Bacteria, ur 3+(A) FRAN Comment:Testing performed by : [address] [address] Culture Reflex Comment Reflex conditions for urine culture (WBC >10) not met. FRAN Comment:Testing performed by : [address] [address] Urine, clean voided 03/05/2024 3:40 PM CDT 03/05/2024 3:45 PM CDT Victoria LEYVA LAB URINE ORDERABLES Final Result Performing Organization Address City/[facility]/ZIP Co de Phone Number FRAN [address] [facility] [employer] [place] [address] * (ABNORMAL) Urinalysis reflex to microscopic and culture Urine, clean voided (03/05/2024 3:40 PM CDT) Color, ur Yellow Yellow Comment:Testing performed by : [address] [address] Clarity, ur Cloudy(A) Clear FRAN Comment:Testing performed by : [address] [address] Specific gravity, ur 1.023 1.003 - 1.030 FRAN Comment:Testing performed by : [address] [address] pH, urine 8.5 FRAN Comment: Interpretive Data ? Urine pH is affected by diet, medications, systemic acid-base disturbances, and renal tubular function. ??pH may affect urinary stone formation. ??For example, urine pH below 6.0 may help reduce the tendency for calcium phosphate stones and pH greater than 6.0 may reduce the tendency for uric acid stone formation. Source: [facility] Jeeran Current Interpretive Data was last revised on 2017 Testing performed by: [address] [address] Protein, ur ql 1+(A) Negative FRAN Comment:Testing performed by : [address] [address] Glucose, ur ql Negative Negative FRAN Comment:Testing performed by : [address] [address] Ketones, ur Negative Negative FRAN Comment:Testing performed by : [address] [address] Bilirubin, ur Negative Negative FRAN Comment:Testing performed by : [address] [address] Blood, ur Negative Negative FRAN Comment:Testing performed by : [address] [address] Urobilinogen, ur <2.0 <2.0 mg/dL FRAN Comment:Testing performed by : [address] [address] Nitrite, ur Negative Negative FRAN Comment:Testing performed by : [facility], [address] [place] [address]., [address] Leukocyte esterase, ur Negative Negative FRAN Comment:Testing performed by : [address] [address] UA reflex comment Reflex to microscopic UA will be performed. FRAN Comment:Testing performed by : [address] [address] Urine, clean voided 03/05/2024 3:40 PM CDT 03/05/2024 3:45 PM CDT us Victoria LEYVA LAB MICROBIOLOGY - GENERAL ORDERABLES Final Result Performing Organization Address [facility] Co de Phone Number JENNIFER[address] [employer] [place] [address] * Troponin T high-sensitivity 2-hour (03/05/2024 3:14 PM CDT) Trop T hs <6 <=14 ng/L Comment: Interpretive Data For further hscTnT resources including the diagnostic algorithm and an aid in interpretation, copy and paste this link: https://nrl.testcatalog.org/show/hsTrop Current Interpretive Data last revised 2020. Testing performed by: [address] [address] Trop T hs delta 0 ng/L FRAN Comment:Testing performed by : [address] [address] Trop T hs interp Insignificant FRAN Comment:Testing performed by : [address] [address] Blood 03/05/2024 3:14 PM CDT 03/05/2024 3:24 PM CDT us Ursula Thomas MD LAB BLOOD ORDERABLES Fin al Result Performing Organization Address City/[facility]/ZIP Co de Phone Number [place] [phone] [facility] [place] [place] [address] * ECG 12 lead (03/05/2024 1:41 PM CDT) Pathologist [facility] Ventricular Rate EKG/Min 87 BPM [facility] Atrial Rate 87 BPM [facility] LA-Interval (MSEC) 140 ms [facility] QRS-Interval (MSEC) 84 ms [facility] QT-Interval (MSEC) 366 ms [facility] QTc 440 ms [facility] P [place] 34 degrees [facility] R [place] -6 degrees [facility] T [place] 32 degrees [facility] Diagnosis Normal sinus rhythm with sinus arrhythmia Otherwise normal ECG When compared with ECG of 20-NOV-2022 20:16, Confirmed by ROCIO PONCE M.D. ([id number]) on 03/06/2024 8:00:48 PM [facility] 03/05/2024 1:41 PM CDT 03/06/2024 8:00 PM CDT us Ursula Thomas MD ECG ORDERABLES Final Re sult [facility] [place] * eGFR (03/05/2024 1:38 PM CDT) [facility] eGFR >90 >=60 mL/min/1. 73 m2 Comment: [...] was last reviewed 2021. Testing performed by: [address] [address] Blood 03/05/2024 1:38 PM CDT 03/05/2024 2:03 PM CDT us Ursula Thomas MD LAB BLOOD ORDERABLES Fin al Result FRAN [facility] Department [place] [address] * Differential, auto (03/05/2024 1:38 PM CDT) Neutrophil abs 5.9 1.5 - 6.5 K/cumm Comment:Testing performed by : [address] [address] Imm gran abs 0.0 0.0 - 0.1 K/cumm FRAN Comment:Testing performed by : [address] [address] Lymphocyte abs 2.5 0.8 - 3.3 K/cumm FRAN Comment:Testing performed by : [address] [address] Monocyte abs 0.6 0.2 - 0.8 K/cumm FRAN Comment:Testing performed by : [address] [address] Eosinophil abs 0.2 0.0 - 0.5 K/cumm FRAN Comment:Testing performed by : [address] [address] Basophil abs 0.1 0.0 - 0.1 K/cumm FRAN Comment:Testing performed by : [address] [address] Neutrophil pct 63.3 % [facility] Comment: Interpretive Data Percent cell count reference ranges are not reported, since discordance with absolute values may lead to misinterpretation of CBC data. Current Interpretive Data was last revised on 2017. Testing performed by: [address] [address] Imm gran pct 0.2 % [facility] Comment: Interpretive Data Percent cell count reference ranges are not reported, since discordance with absolute values may lead to misinterpretation of CBC data. Current Interpretive Data was last revised on 2017. Testing performed by: [address] [address] Lymphocyte pct 26.8 % [facility] Comment: Interpretive Data Percent cell count reference ranges are not reported, since discordance with absolute values may lead to misinterpretation of CBC data. Current Interpretive Data was last revised on 2017. Testing performed by: [address] [address] Monocyte pct 6.5 % [facility] Comment: Interpretive Data Percent cell count reference ranges are not reported, since discordance with absolute values may lead to misinterpretation of CBC data. Current Interpretive Data was last revised on 2017. Testing performed by: [address] [address] Eosinophil pct 2.5 % [facility] Comment: Interpretive Data Percent cell count reference ranges are not reported, since discordance with absolute values may lead to misinterpretation of CBC data. Current Interpretive Data was last revised on 2017. Testing performed by: [address] [address] Basophil pct 0.7 % [facility] Comment: Interpretive Data Percent cell count reference ranges are not reported, since discordance with absolute values may lead to misinterpretation of CBC data. Current Interpretive Data was last revised on 2017. Testing performed by: [address] [address] Blood 03/05/2024 1:38 PM CDT 03/05/2024 2:03 PM CDT Ursula Thomas MD LAB BLOOD ORDERABLES Fin al Result Performing Organization Address [facility] Co de Phone Number JENNIFER[address] [place] [address] * Lipase (03/05/2024 1:38 PM CDT) [facility] Lipase 18 10 - 99 Units/L Comment:Testing performed by : [address] [address] Blood 03/05/2024 1:38 PM CDT 03/05/2024 2:03 PM CDT Victoria LEYVA LAB BLOOD ORDERABLES Final Result Performing Organization Address [facility] Phone Number [address] [address] * Troponin T high-sensitivity series (baseline, 2hr, 4hr, 6hr) (03/05/2024 1:38 PM CDT) [facility] Trop T hs <6 <=14 ng/L Comment: Interpretive Data For further hscTnT resources including the diagnostic algorithm and an aid in interpretation, copy and paste this link: https://nrl.testcatalog.org/show/hsTrop Current Interpretive Data last revised 2020. Testing performed by: [address] [address] Blood 03/05/2024 1:38 PM CDT 03/05/2024 2:03 PM CDT Ursula Thomas MD LAB BLOOD ORDERABLES Fin al Result Performing Organization Address [facility] Co de Phone Number [address] [place] [address] * (ABNORMAL) CBC with auto differential (03/05/2024 1:38 PM CDT) [facility] WBC 9.4 3.8 - 9.9 K/cumm Comment:Testing performed by : [address] [address] Hgb 13.3 11.9 - 15.5 g/dL FRAN Comment:Testing performed by : [address] [address] Hct 40.9 35.6 - 45.5 % FRAN Comment:Testing performed by : [address] [address] Plt 421(H) 150 - 400 K/cumm FRAN Comment:Testing performed by : [address] [address] MPV 9.1 9.1 - 12.3 fL FRAN Comment:Testing performed by : [address], [address] RBC 5.08 3.90 - 5.20 M/cumm FRAN Comment:Testing performed by : [address] [address] MCV 80.5(L) 81.3 - 96.4 fL FRAN Comment:Testing performed by : [address] [address] MCH 26.2(L) 27.1 - 33.3 pg FRAN Comment:Testing performed by : [address] [address] MCHC 32.5 32.3 - 35.7 g/dL FRAN Comment:Testing performed by : [address], [address] RDW CV 13.3 11.1 - 14.9 % FRAN Comment:Testing performed by : [address] [address] RDW SD 38.6 35.7 - 48.1 fL FRAN Comment:Testing performed by : [address] [address] NRBC abs 0.00 0.00 - 0.01 K/cumm FRAN Comment:Testing performed by : [address], [address] Blood 03/05/2024 1:38 PM CDT 03/05/2024 2:03 PM CDT us Ursula Thomas MD LAB BLOOD ORDERABLES Fin al Result FRAN [address] [facility] Department [place] [address] * Comprehensive metabolic panel (03/05/2024 1:38 PM CDT) Sodium 141 135 - 145 mmol/L Comment:Testing performed by : [address] [address] Potassium, pl 3.5 3.3 - 4.9 mmol/L FRAN Comment:Testing performed by : [address] [address] Chloride 103 97 - 110 mmol/L FRAN Comment:Testing performed by : [address] [address] CO2 24 22 - 32 mmol/L FRAN Comment:Testing performed by : [address] [address] Anion gap 14 2 - 15 mmol/L FRAN Comment:Testing performed by : [address] [address] BUN 6 6 - 25 mg/dL FRAN Comment:Testing performed by : [address] [address] Creatinine 0.70 0.60 - 1.10 mg/dL FRAN Comment:Testing performed by : [address] [address] Glucose 110 70 - 199 mg/dL FRAN [...] last revised 2022. Testing performed by: [facility], [address] [place] [address]., [address] Calcium 9.4 8.5 - 10.3 mg/dL FRAN Comment:Testing performed by : [address] [address] Bilirubin, total 0.3 0.1 - 1.2 mg/dL FRAN Comment:Testing performed by : [address] [address] Protein, pl 7.8 6.5 - 8.5 g/dL FRAN Comment:Testing performed by : [address], [place]., [address] Albumin 4.2 3.5 - 5.0 g/dL FRAN Comment:Testing performed by : [address] [address] Alk phos 105 40 - 130 Units/L FRAN Comment:Testing performed by : [address] [address] ALT 20 7 - 45 Units/L FRAN Comment:Testing performed by : [address] [address] AST 21 10 - 45 Units/L FRAN Comment:Testing performed by : [address] [address] Blood 03/05/2024 1:38 PM CDT 03/05/2024 2:03 PM CDT us Ursula Thomas MD LAB BLOOD ORDERABLES Fin al Result [facility] [address] [facility] Department [place] [address] documented in this encounter Visit [...] documented as of this encounter Care Teams Mold Bunch Trimmer Relationship Specialty Start Date End Date Lorie Vanessa NP [address] [address] PCP - General Family Practice 05/29/22 No, Physician 06/08/21 documented as of this encounter
--- OUTSIDE RECORDS SUMMARY | 2024-06-06 05:23 | XMS_ITS | Encounter Summary ---
Author Organization [facility] Address [address] [place] [address] Phone Care Team Providers Care Chart Reader Name Role Phone No, Physician Unavailable Lorie Vanessa NP Primary Care Provider [phone] Encounter Details Date Type Department Care Team (Late st Contact Info) Description 07/31/2023 Telephone [facility] Allergy and Immunology [address] [facility] [address] [place] [address] Aimee Amaro Social History Tobacco [...] file Legal Sex Female 6:55 PM FISH BIN TENDER Gender Identity Female 06/06/2022 7:40 AM FISH BIN TENDER Sexual Orientation Not on file documented as of this encounter Miscellaneous Notes * Telephone Encounter - Aimee Amaro - 07/31/2023 9:26 AM CST PHONED PT @ [phone] @ 10:20 AM, LFT MSG STATING TO CALL NURSE COORDINATOR TO SCHEDULE CT. BIN TENDER documented in this encounter Plan of Treatment Not on file documented as of this encounter Visit Diagnoses Not on filedocumented in this encounter Care Teams Chart Reader Relationship Specialty Start Date End Date Lorie Vanessa NP [address] [place] [address] PCP - General Family Practice 05/29/22 No, Physician 06/08/21 documented as of this encounter
--- OUTSIDE RECORDS SUMMARY | 2024-06-06 05:23 | XMS_ITS | Encounter Summary ---
Author Organization [facility] Address [address] [place] [address] Phone Care Team Providers Care Cath Lab Radiology Technician Name Role Phone No, Physician Unavailable Lorie Vanessa NP Primary Care Provider [phone] Reason for Visit * Reason Comments Follow-up Encounter Details Date Type Department Care Team (Late st Contact Info) Description 06/03/2023 10:45 AM IMPACT HAMMER OPERATOR Office Visit [facility] [address] [place] [address] Medical Office Building [address] [place] [phone] [place] [address] [place] [address] Closed displaced fracture of fifth metatarsal bone [...] on file Legal Sex Female 6:55 PM IMPACT HAMMER OPERATOR Gender Identity Female 06/06/2022 7:40 AM IMPACT HAMMER OPERATOR Sexual Orientation Not on file documented as of this encounter Progress Notes * Marco Antonio Reynoso, IMMIGRATION SPECIALIST - 06/03/2023 10:45 AM CST RETURN PATIENT [...] Walter today. Marco Antonio Reynoso, RN,BSN, MSN, HAM STRIPPER, COLLEGE TEACHER-C, in collaborative practice with Dr. George Elizondo and Dr. Dionisio Walter Nurse Practitioner, Foot and Ankle Service [facility]. This is TONY Thomas dictating using [employer] Direct Software Program. System Configuration Specialist variances may occur. CT HAMMER OPERATOR documented in this encounter Plan of Treatment Not on file documented as of this encounter Results * XR Foot Right 3 or More Views (06/03/2023 11:05 AM IMPACT HAMMER OPERATOR) Anatomical Region Laterality Modality Lower Extremities, Foot Right Digital Radiography 06/03/2023 1:46 PM IMPACT HAMMER OPERATOR Impressions 06/03/2023 1:46 PM IMPACT HAMMER OPERATOR Mild hallux valgus. ??Again noted is a base of the 5th metatarsal fracture which remains ununited to the rest of the 5th metatarsal. ??There is ??some evidence of healing. ??Alignment is unchanged and near-anatomic. ??No periosteal reaction. ??Continue follow-up. Electronically signed by: Thais Ortiz M.D. Narrative 06/03/2023 1:46 PM IMPACT HAMMER OPERATOR EXAMINATION: 1. ??3 VIEWS OF THE [...] by: Thais Ortiz M.D. Marco Antonio Reynoso IMMIGRATION SPECIALIST IMG XR PROCEDURES Final Re sult documented in this encounter Visit Diagnoses Diagnosis Closed displaced fracture of fifth metatarsal bone of right foot, initial encounter- Primary Closed displaced fracture of fifth metatarsal bone of right foot, initial encounter documented in this encounter Care Teams Cath Lab Radiology Technician Relationship Specialty Start Date End Date Lorie Vanessa NP [address] [place] [address] PCP - General Family Practice 05/29/22 No, Physician 06/08/21 documented as of this encounter
--- OUTSIDE RECORDS SUMMARY | 2024-06-06 05:23 | XMS_ITS | Encounter Summary ---
Author Organization [facility] Address [address] [place] [address] Phone Care Team Providers Care Retail Consultant Name Role Phone No, Physician Unavailable Lorie Vanessa NP Primary Care Provider [phone] Encounter Details Date Type Department Care Team (Late st Contact Info) Description 08/06/2023 Telephone [facility] Allergy and Immunology [address] [facility] [address] [place] [address] Aimee Amaro Social History Tobacco [...] on file Legal Sex Female 6:55 PM FACILITIES DIRECTOR Gender Identity Female 06/06/2022 7:40 AM FACILITIES DIRECTOR Sexual Orientation Not on file documented as of this encounter Miscellaneous Notes * Telephone Encounter - Aimee Amaro - 08/06/2023 11:52 AM CDT 3RD ATTEMPT.. PHONED PT @ [phone] @ 11:52 AM, LFT MSG STATING TO RETURN CALL TO SCHEDULE CT. CLOSED REFERREAL AFTER 3 CALL ATTEMPTS. documented in this encounter Plan of Treatment Not on file documented as of this encounter Visit Diagnoses Not on filedocumented in this encounter Care Teams Retail Consultant Relationship Specialty Start Date End Date Lorie Vanessa NP [address] [place] [address] PCP - General Family Practice 05/29/22 No, Physician 06/08/21 documented as of this encounter
--- OUTSIDE RECORDS SUMMARY | 2024-06-06 05:23 | XMS_ITS | Encounter Summary ---
Author Organization [facility] Healthcare Address [address] [place] [address] Care Team Providers Care Garment Sorter Name Role Phone No, Physician Unavailable Lorie Vanessa NP Primary Care Provider [phone] Reason for Visit * Reason Comments PT Treatment PT Discharge * Consultation (Routine) - Authorized Specialty Diagnoses / Procedures Referred By Cyn burnett Referred To Contact Physical Therapy Diagnoses Low back pain, unspecified back pain laterality, unspecified chronicity, unspecified whether [place] [address] [address] [facility] [address] [address] Phone: tel: fax: [address] [address] Referral ID Status Reason Start Date Expiration Date Visits Requested Visits Authorized [id number] Authorized Evaluate and Treat 07/01/2023 07/30/2024 9 9 Encounter Details Date Type Department Care Team (Late st Contact Info) Description 07/26/2023 3:30 PM WIRE COILER Therapy [facility] Physical Therapy [address] [place] [phone] Jodi Gan PT Low back pain, [...] on file Legal Sex Female 6:55 PM WIRE COILER Gender Identity Female 06/06/2022 7:40 AM WIRE COILER Sexual Orientation Not on file documented as [...] Gan, PT PT Daily Treatment Note 07/26/2023 Emiyl Guerrier 1995 ICD-9-CM ICD-10-CM 1. Low back pain, unspecified back pain laterality, unspecified chronicity, unspecified whether sciatica present 724.2 M54.50 Precautions: ADJUSTOR: SAMMY TURNER PHONE NUMBER: [phone] CLAIM #: [id number] DATE OF INJURY: 01/20/2023 VISIT LIMIT: 9 [...] Code Calculator Minutes for Ther Ex/Ther Procedure (30775):: 39 minutes Minutes for Ther Act (06458):: 14 minutes Timed Code Treatment Minutes:: 53 minutes Total Treatment Time: 53 COILER documented in this encounter Plan of Treatment Not on file documented as of this encounter Visit Diagnoses Diagnosis Low back pain, unspecified back pain laterality, unspecified chronicity, unspecified whether sciatica present- Primary documented in this encounter Care Teams Garment Sorter Relationship Specialty Start Date End Date Lorie Vanessa NP [address] [place] [address] PCP - General Family Practice 05/29/22 No, Physician 06/08/21 documented as of this encounter
--- OUTSIDE RECORDS SUMMARY | 2024-06-06 05:23 | XMS_ITS | Encounter Summary ---
Author Organization [facility] Healthcare Address [address] [place] [address] Care Team Providers Care Program Admin Name Role Phone No, Physician Unavailable Lorie Vanessa NP Primary Care Provider [phone] Reason for Visit * Reason Comments PT Treatment * Consultation (Routine) - Authorized Specialty Diagnoses / Procedures Referred By Cyn burnett Referred To Contact Physical Therapy Diagnoses Low back pain, unspecified back pain laterality, unspecified chronicity, unspecified whether [place] [address] [address] [facility] [address] [address] Phone: tel: fax: [address] [address] Referral ID Status Reason Start Date Expiration Date Visits Requested Visits Authorized [id number] Authorized Evaluate and Treat 07/01/2023 07/30/2024 9 9 Encounter Details Date Type Department Care Team (Late st Contact Info) Description 07/24/2023 5:15 PM SENIOR CLERK Therapy [facility] Physical Therapy [address] [place] [phone] Jodi Gan PT Low back pain, [...] file Legal Sex Female 6:55 PM SENIOR CLERK Gender Identity Female 06/06/2022 7:40 AM SENIOR CLERK Sexual Orientation Not on file documented [...] M54.50 Precautions: ADJUSTOR: SAMMY TURNER PHONE NUMBER: [phone] CLAIM #: [id number] DATE OF INJURY: 01/20/2023 VISIT LIMIT: 9 [...] each ANA 2x12 each ANA 2x12 each NAA, Yellow Clamshells (hips neutral) 2x12 each ANA, [...] Code Calculator Minutes for Ther Ex/Ther Procedure (56153):: 39 minutes Timed Code Treatment Minutes:: 39 minutes Total Treatment Time: 39 OR CLERK documented in this encounter Plan of Treatment Not on file documented as of this encounter Visit Diagnoses Diagnosis Low back pain, unspecified back pain laterality, unspecified chronicity, unspecified whether sciatica present- Primary documented in this encounter Care Teams Program Admin Relationship Specialty Start Date End Date Lorie Vanessa NP [address] [place] [address] PCP - General Family Practice 05/29/22 No, Physician 06/08/21 documented as of this encounter
--- OUTSIDE RECORDS SUMMARY | 2024-06-06 05:23 | XMS_ITS | Encounter Summary ---
Author Organization [facility] Healthcare Address [address] [place] [address] Care Team Providers Care Crop Production Advisor Name Role Phone No, Physician Unavailable Lorie Vanessa NP Primary Care Provider [phone] Reason for Visit * Reason Comments Abdominal Pain Pt c/o diarrhea, shala sea, vomiting, abdominal pain and fatigue for 4 days. She is taking imodium, tums, tylenol and pedialyte Encounter Details Date Type Department Care Team (Late st Contact Info) Description 02/25/2024 4:30 PM CDT Office Visit [facility] Medical Group Convenient Care at [address] [phone] Brittany Frances NP [address] [place] [address] [address] [place] [address] Viral gastroenteritis (Primary Dx) Social [...] on file Legal Sex Female 6:55 PM MAJOR CASE DETECTIVE Gender Identity Female 06/06/2022 7:40 AM MAJOR CASE DETECTIVE Sexual Orientation Not on file documented as [...] Patient Instructions * Patient Instructions* Brittany Frances, SALESPERSON FURS - 02/25/2024 4:30 PM CDT If you [...] meet your needs. Thank you for choosing [facility]! It was my pleasure to see you today, I hope you feel better soon! Brittany Frances SOA ENGINEER Abdominal Pain A serious cause of the [...] through Care Everywhere. * Gastroenteritis (AfterCare(R) Instructions(ER/ED)) (Danish) documented in this encounter Ordered Prescriptions Prescription [...] documented as of this encounter Care Teams Crop Production Advisor Relationship Specialty Start Date End Date Lorie Vanessa NP [address] [place] [address] PCP - General Family Practice 05/29/22 No, Physician 06/08/21 documented as of this encounter
--- OUTSIDE RECORDS SUMMARY | 2024-06-06 05:23 | XMS_ITS | Encounter Summary ---
Author Organization [facility] Address [address] [place] [address] Phone Care Team Providers Care Styrene Dehydration Reactor Operator Name Role Phone No, Physician Unavailable Lorie Vanessa NP Primary Care Provider [phone] Reason for Visit * Reason Comments Follow-up Encounter Details Date Type Department Care Team (Late st Contact Info) Description 04/26/2023 10:45 AM CENTRAL STERILIZATION TECHNICIAN Office Visit [facility] Orthopaedic Surgery [address] [facility] 2nd Floor [address] [place] [phone] [place] [address] [place] [address] [place] [address] Closed displaced fracture of fifth metatarsal bone [...] on file Legal Sex Female 6:55 PM CENTRAL STERILIZATION TECHNICIAN Gender Identity Female 06/06/2022 7:40 AM CENTRAL STERILIZATION TECHNICIAN Sexual Orientation Not on file documented as of this encounter Progress Notes * Marco Antonio Reynoso, RAIL FLAW DETECTOR OPERATOR - 04/26/2023 10:45 AM CST RETURN PATIENT [...] Sensation is intact to light touch. She draw tender at the base of the right [...] Walter today. Marco Antonio Reynoso RN,BSN, MSN, CHARGE MASTER COORDINATOR, MANAGER LATIN-C, in collaborative practice with Dr. George Elizondo and Dr. Dionisio Walter Nurse Practitioner, Foot and Ankle Service [facility] Orthopedics. This is TONY Thomas dictating using [employer] Software Program. Trouble Operator variances may occur. RAL STERILIZATION TECHNICIAN documented in this encounter Plan of Treatment Not on file documented as of this encounter Results * XR Foot Right 3 or More Views (04/26/2023 10:37 AM CENTRAL STERILIZATION TECHNICIAN) Anatomical Region Laterality Modality Lower Extremities, Foot Right Computed Radiography 04/26/2023 11:3 0 AM CENTRAL STERILIZATION TECHNICIAN Impressions 04/26/2023 11:30 AM CENTRAL STERILIZATION TECHNICIAN 1. ??Unchanged mildly displaced, intra-articular fracture of the right 5th metatarsal base. Electronically signed by: Ray Cruz M.D. Narrative 04/26/2023 11:30 AM CENTRAL STERILIZATION TECHNICIAN EXAMINATION: XR FOOT RIGHT 3 OR MORE [...] by: Ray Cruz M.D. Marco Antonio Reynoso RAIL FLAW DETECTOR OPERATOR IMG XR PROCEDURES Final Re sult documented in this encounter Visit Diagnoses Diagnosis Closed displaced fracture of fifth metatarsal bone of right foot, initial encounter- Primary Closed displaced fracture of fifth metatarsal bone of right foot, initial encounter documented in this encounter Care Teams Styrene Dehydration Reactor Operator Relationship Specialty Start Date End Date Lorie Vanessa NP [address] [place] [address] PCP - General Family Practice 05/29/22 No, Physician 06/08/21 documented as of this encounter
--- OUTSIDE RECORDS SUMMARY | 2024-06-06 05:23 | XMS_ITS | Encounter Summary ---
Author Organization [facility] Healthcare Address [address] [place] [address] Care Team Providers Care Hand Shoes Sewer Name Role Phone No, Physician Unavailable Lorie Vanessa NP Primary Care Provider [phone] Reason for Visit * Reason Comments New Patient WWE Encounter Details Date Type Department Care Team (Late st Contact Info) Description 05/17/2023 10:30 AM ATTIC FANS MECHANIC Office Visit [facility] Medical Group Obstetrical Gynecology [address] [place] [phone] Sita Lin MD [address] [place] [address] Well woman exam (Primary Dx); PCOS [...] on file Legal Sex Female 6:55 PM ATTIC FANS MECHANIC Gender Identity Female 06/06/2022 7:40 AM ATTIC FANS MECHANIC Sexual Orientation Not on file documented as of this encounter Last Filed Vital Signs Vital Sign Reading Time Taken Comments Blood Pressure 126/76 05/17/2023 10:25 AM ATTIC FANS MECHANIC Pulse - - Temperature - - Respiratory Rate - - Oxygen Saturation - - Inhaled Oxygen Concentration - - Weight 151 kg (333 lb) 05/17/2023 10:25 AM ATTIC FANS MECHANIC Height 162.6 cm (5' 4.02 ) 05/17/2023 10:[address] Body Mass Index 57.13 05/17/2023 10:25 AM ATTIC FANS MECHANIC documented in this encounter Ordered Prescriptions Prescription [...] to get soon. Has never tried before. STEAM BOILER FIREMAN History: Menarche: 13 Menses: irregular Last pap [...] total) by mouth 2 (two) times a [id number] tablet 1 propranolol LA (INDERAL LA) 60 [...] to further discuss fertility. Sita Lin MD C FANS MECHANIC documented in this encounter Miscellaneous Notes * Addendum Note - Erika Abad LPN - 05/17/2023 10:30 AM ATTIC FANS MECHANIC Addended by: ERIKA ABAD on: 05/21/2023 10:42 AM Modules accepted: Orders C FANS MECHANIC documented in this encounter Plan of Treatment Not on file documented as of this encounter Results * ThinPrep processing (Molecular component) (05/17/2023 11:10 AM ATTIC FANS MECHANIC) ThinPrep processing (Molecular component) Specimen received for processing. [facility] Comment:Testing performed by : [facility], [address] [place]., [address] Endocervical 05/17/2023 11:1 0 AM ATTIC FANS MECHANIC 05/21/2023 8:31 AM ATTIC FANS MECHANIC us Sita Lin MD LAB BODY FLUIDS AND STOOLS O RDERABLES Final Result [facility] [address] [facility] Department [place] [address] * Pap with reflex to High Risk HPV and Genotyping (Cytology Component) (05/17/2023 11:10 AM ATTIC FANS MECHANIC) Endocervical (Pap test) 05/17/2023 11:10 AM ATTIC FANS MECHANIC 05/19/2023 11:35 PM ATTIC FANS MECHANIC Narrative PATHOLOGY [facility] - 05/23/2023 5:10 PM ATTIC FANS MECHANIC EPIC results best viewed via link to PDF [facility] Erika Buck Laboratory [place] [address] Note to Patients: This report [...] Gender: ??F : ??1995 (Age: 27) Address: ??[address] [place] [address] Hospital #: ??[id number] Service: ??DEFAULT Location: ?? Patient Type: ??[facility] SPECIMEN Taken: ??05/17/2023 Received: ??05/19/2023 Accessioned: ??05/20/2023 [...] clinical information and biopsy results as indicated. [facility] Clinical Laboratory Improvement Amendments (CLIA) mandate that cytologic and histologic results be correlated for laboratory quality assurance clerk & improvement standards. ??FOR ALL HIGH-GRADE CASES [...] determined by the Surgical Pathology Department at [facility] as part of an ongoing quality checker program and in compliance with federally mandated [...] Health and Human Services as a [facility] laboratory under CLIA '88. ??The [...] determined by the Surgical Pathology Department of [facility]. ??It has not been cleared or approved by the U. S. Food and Drug Administration. Sita Lin MD LAB CYTOLOGY ORDERABLES Magda l Result PATHOLOGY [facility] documented in this encounter Visit Diagnoses [...] 05/09/2023 added in this encounter Care Teams Hand Shoes Sewer Relationship Specialty Start Date End Date Lorie Vanessa NP [address] [place] [phone] PCP - General Family Practice 05/29/22 No, Physician 06/08/21 documented as of this encounter
--- OUTSIDE RECORDS SUMMARY | 2024-06-06 05:23 | XMS_ITS | Encounter Summary ---
Author Organization [facility] Healthcare Address [address] [place] [address] Care Team Providers Care Inspector Government Property Name Role Phone No, Physician Unavailable Lorie Vanessa NP Primary Care Provider [phone] Encounter Details Date Type Department Care Team (Late st Contact Info) Description 2023 Orders Only [facility] Information Management [address] [place] [address] Lorie Vanessa COPY LATHE OPERATOR [address] [address] Social History Tobacco Use Types [...] on file Legal Sex Female 6:55 PM TELEPHONE SUPERVISOR Gender Identity Female 06/06/2022 7:40 AM TELEPHONE SUPERVISOR Sexual Orientation Not on file documented [...] on filedocumented in this encounter Care Teams Inspector Government Property Relationship Specialty Start Date End Date Lorie Vanessa NP [address] [place] [address] PCP - General Family Practice 05/29/22 No, Physician 06/08/21 documented as of this encounter
--- OUTSIDE RECORDS SUMMARY | 2024-06-06 05:24 | XMS_ITS | Encounter Summary ---
Author Organization [facility] Address [address] [place] [address] Phone Care Team Providers Care Residential Nurse Name Role Phone No, Physician Unavailable Lorie Vanessa NP Primary Care Provider [phone] Reason for Referral * Procedure (Routine) - Closed Specialty Diagnoses / Procedures Referred By Cyn burnett Referred To Contact Pulmonology Diagnoses Chronic cough Procedures Pulmonary Function Test -[facility] PFT Lab- [facility]; Spirometry with Bronchodilator, Lung Volumes; Pleth with Airway Resistance Jackson Dodd MD PhD [address] [place] [address] [address] [place] [address] Phone: tel: fax: Referral ID Status Reason Start Date Expiration Date Visits Re quested Visits Authorized [id number] Closed 03/04/2023 04/02/2024 1 1 Reason for Visit * Procedure (Routine) - Closed Specialty Diagnoses / Procedures Referred By Contac t Referred To Contact Pulmonology Diagnoses Chronic cough Procedures Pulmonary Function Test -[facility]FT [facility]- [facility]; Spirometry with Bronchodilator, Lung Volumes; Pleth with Airway Resistance Jackson Dodd MD PhD [address] [facility] [address] [place] [address] Phone: tel: fax: Referral ID Status Reason Start Date Expiration Date Visits Re quested Visits Authorized [id number] Closed 03/04/2023 04/02/2024 1 1 Encounter Details Date Type Department Care Team (Late st Contact Info) Description 03/08/2023 12:28 PM CDT Hospital Encounter [facility] PFT Lab [address] [facility] Office Building [address] [place] [address] Chronic cough Social History Tobacco Use Types [...] on file Legal Sex Female 6:55 PM PETS AND PET SUPPLIES SALESPERSON Gender Identity Female 06/06/2022 7:40 AM PETS AND PET SUPPLIES SALESPERSON Sexual Orientation Not on file documented as of this encounter Plan of Treatment Not on file documented as of this encounter Procedures Procedure Name Priority Date/Time Associated Diagnosis Comments PULMONARY FUNCTION TEST (PFT) Routine 03/08/2023 1:04 PM CDT Chronic cough documented in this encounter Results * Pulmonary Function Test - (03/08/2023 1:04 PM CDT) FVC PRE 4.25 L [facility] FVC %PRE PRED 111 % [facility] FVC POST 3.93 L [facility] FVC %POST PRED 103 % [facility] FEV1 PRE 3.34 L [facility] FEV1 %PRE PRED 101 % [facility] FEV1 POST 3.17 L [facility] FEV1 %POST PRED 96 % [facility] FEV1/FVC PRE 78.6 % [facility] FEV1/FVC POST 80.7 % [facility] FRC PL PRE 1.96 L [facility] FRC PL %PRE PRED 71 % [facility] RV PRE 1.27 L [facility] RV %PRE PRED 98 % [facility] TLC PRE 5.57 L [facility] TLC %PRE PRED 110 % [facility] DLCO PRE 26.8 ml/min/mmH g [facility] DLCO %PRE PRED 120 % [facility] Anatomical Region Laterality Modality PFT 03/08/2023 [...] and %HbO2 is age dependent. However, the [facility] Pulmonary Function Laboratory defines hypoxemia as a PO2 <55 or a %HbO2 <89. Narrative 03/08/2023 1:12 PM CDT PFT performed at:->[facility] U Adult PFT Lab- [facility] Procedure:->Spirometry with Bronchodilator Procedure:->Lung Volumes Lung [...] COVID: Suspected 05/29/2023 05/29/2023 05/29/2023 5:07 PM PETS AND PET SUPPLIES SALESPERSON COVID: Suspected 07/05/2023 07/05/2023 07/05/2023 8:07 PM PETS AND PET SUPPLIES SALESPERSON C. difficile suspected 03/05/2024 03/05/202403/05 5:29 PM CDT documented as of this encounter Care Teams Residential Nurse Relationship Specialty Start Date End Date Lorie Vanessa NP [address] [place] [address] PCP - General Family Practice 05/29/22 No, Physician 06/08/21 documented as of this encounter
--- OUTSIDE RECORDS SUMMARY | 2024-06-06 05:24 | XMS_ITS | Encounter Summary ---
Author Organization [facility] Healthcare Address [address] [place] [address] Care Team Providers Care Middle School Music Teacher Name Role Phone No, Physician Unavailable Lorie Vanessa NP Primary Care Provider [phone] Encounter Details Date Type Department Care Team (Late st Contact Info) Description 04/14/2023 Patient Self-Triage [facility] HealthCare/ Physicians [address] [place] [address] Mychart, Generic Provider [address] [place] [address] Social History Tobacco Use Types Packs/Day [...] on file Legal Sex Female 6:55 PM RESOLUTION EXPERT Gender Identity Female 06/06/2022 7:40 AM RESOLUTION EXPERT Sexual Orientation Not on file documented as of this encounter Plan of Treatment Not on file documented as of this encounter Visit Diagnoses Not on filedocumented in this encounter Care Teams Middle School Music Teacher Relationship Specialty Start Date End Date Lorie Vanessa NP [address] [place] [address] PCP - General Family Practice 05/29/22 No, Physician 06/08/21 documented as of this encounter
--- OUTSIDE RECORDS SUMMARY | 2024-06-06 05:24 | XMS_ITS | Encounter Summary ---
Author Organization [facility] Healthcare Address [address] [place] [address] Care Team Providers Care Design Engineering Specialist Name Role Phone No, Physician Unavailable Lorie Vanessa NP Primary Care Provider [phone] Encounter Details Date Type Department Care Team (Late st Contact Info) Description 04/15/2023 Orders Only [facility] Medical Group Gastroenterology at [address] [place] [address] Cj Thomas MD [address] [place] [address] [address] [place] [address] Nausea (Primary Dx) Social History [...] on file Legal Sex Female 6:55 PM ASSISTED LIVING CARE MANAGER Gender Identity Female 06/06/2022 7:40 AM ASSISTED LIVING CARE MANAGER Sexual Orientation Not on file documented [...] alone documented in this encounter Care Teams Design Engineering Specialist Relationship Specialty Start Date End Date Lorie Vanessa NP [address] [place] [address] PCP - General Family Practice 05/29/22 Mel, Physician 06/08/21 documented as of this encounter
--- OUTSIDE RECORDS SUMMARY | 2024-06-06 05:24 | XMS_ITS | Encounter Summary ---
Author Organization [facility] Healthcare Address [address] [place] [address] Care Team Providers Care Beef Grader Name Role Phone No, Physician Unavailable Lorie Vanessa NP Primary Care Provider [phone] Encounter Details Date Type Department Care Team (Late st Contact Info) Description 04/15/2023 Orders Only [facility] Medical Group Gastroenterology at [address] [place] [address] Cj Thomas MD [address] [place] [address] [address] [place] [address] Nausea (Primary Dx) Social History [...] on file Legal Sex Female 6:55 PM LACQUER POLISHER Gender Identity Female 06/06/2022 7:40 AM LACQUER POLISHER Sexual Orientation Not on file documented as [...] documented as of this encounter Care Teams Beef Grader Relationship Specialty Start Date End Date Lorie Vanessa NP [address] [place] [address] PCP - General Family Practice 05/29/22 No, Physician 06/08/21 documented as of this encounter
--- OUTSIDE RECORDS SUMMARY | 2024-06-06 05:24 | XMS_ITS | Encounter Summary ---
Author Organization [facility] Healthcare Address [address] [place] [address] Care Team Providers Care Phlebotomy Tech Name Role Phone No, Physician Unavailable Lorie Vanessa NP Primary Care Provider [phone] Encounter Details Date Type Department Care Team (Late st Contact Info) Description 04/10/2023 Orders Only [facility] Medical Group Gastroenterology at [address] [place] [address] Cj Thomas MD [address] [place] [address] [address] [place] [address] Epiploic appendagitis (Primary Dx) Social [...] on file Legal Sex Female 6:55 PM CHARGING BOARD OPERATOR Gender Identity Female 06/06/2022 7:40 AM CHARGING BOARD OPERATOR Sexual Orientation Not on file documented as of this encounter Plan of Treatment Not on file documented as of this encounter Visit Diagnoses Diagnosis Epiploic appendagitis- Primary documented in this encounter Care Teams Phlebotomy Tech Relationship Specialty Start Date End Date Lorie Vanessa NP [address] [place] [address] PCP - General Family Practice 05/29/22 No, Physician 06/08/21 documented as of this encounter
--- OUTSIDE RECORDS SUMMARY | 2024-06-06 05:24 | XMS_ITS | Encounter Summary ---
Author Organization [facility] Healthcare Address [address] [place] [address] Care Team Providers Care Manufacturing Mechanic Name Role Phone No, Physician Unavailable Lorie Vanessa NP Primary Care Provider [phone] Reason for Visit * Diagnostic Imaging (Routine) - Closed Specialty Diagnoses / Procedures Referred By Cyn burnett Referred To Contact Diagnoses Nausea Procedures NM Gastric Emptying Cj Thomas MD [address] [place] [address] Phone: tel: fax: [address] [address] Referral ID Status Reason Start Date Expiration Date Visits Re quested Visits Authorized [id number] Closed 03/07/2023 04/05/2024 5 5 Encounter Details Date Type Department Care Team (Latest Contact Info) Description 03/19/2023 10:19 AM CDT - 03/19/2023 11:59 PM CDT Hospital Encounter [facility] Nuclear Medicine [address] [place] [address] Discharge Disposition: Discharge to home or [...] file Legal Sex Female 6:55 PM DIRECTOR ENTERPRISE SALES Gender Identity Female 06/06/2022 7:40 AM DIRECTOR ENTERPRISE SALES Sexual Orientation Not on file documented [...] D: ??03/19/2023 3:08 PM T: Report ID: [id number] Reading Location: ??[id number] Procedure Note Zaheer Berry Jr., MD - [...] by Zaheer Berry M.D. T: Report ID: [id number] Reading Location: [place] [address] Cj William [facility] Final Result documented in this encounter Visit Diagnoses Not on filedocumented in this encounter Care Teams Manufacturing Mechanic Relationship Specialty Start Date End Date Lorie Vanessa NP [address] [place] [address] PCP - General Family Practice 05/29/22 No, Physician 06/08/21 documented as of this encounter
--- OUTSIDE RECORDS SUMMARY | 2024-06-06 05:24 | XMS_ITS | Encounter Summary ---
Author Organization [facility] Address [address] [place] [address] Phone Care Team Providers Care Manager Resource Name Role Phone No, Physician Unavailable Lorie Vanessa NP Primary Care Provider [phone] Reason for Visit * Reason Comments Cast Problem Encounter Details Date Type Department Care Team (Late st Contact Info) Description 03/08/2023 2:30 PM CDT Office Visit [facility] Orthopaedic Surgery [address] [facility] 2nd Floor [address] [place] [phone] [place] [address] [place] [address] Closed displaced fracture of fifth metatarsal bone [...] on file Legal Sex Female 6:55 PM AUTO PARKER Gender Identity Female 06/06/2022 7:40 AM AUTO PARKER Sexual Orientation Not on file documented as of this encounter Progress Notes * Marco Antonio Reynoso, MEDIATION COMMISSIONER - 03/08/2023 2:30 PM CDT RETURN PATIENT [...] Walter today. Marco Antonio Reynoso, RN,BSN, MSN, USED CAR SALESPERSON, RESTAURANT ASSISTANT MANAGER-C, in collaborative practice with Dr. George Elizondo and Dr. Dionisio [place] Nurse Practitioner, Foot and Ankle Service [facility]. This is TONY Thomas dictating using rVita Direct Software Program. Cobol Application Developer variances may occur. * Young Leonardo - 03/08/2023 2:30 PM CDTAssociated Order(s): Ortho Casting/Splinting Documentation Post-Procedure Diagnose(s): Closed displaced fracture of fifth metatarsal bone of right foot, initial encounter Ortho Casting/Splinting Documentation Date/Time: 03/08/2023 3:40 PM Performed by: Young Leonardo Authorized by: Marco Antonio Reynoso NP Sensation: Normal Skin Condition: Clean, dry, and intact [place]/Sutures Removed: No Pin Pulled: No Cast Removed: [...] Procedure Name Priority Date/Time Associated Diagnosis Comments TX CAST SUP SHRT LEG FIBERGLASS Routine 03/08/2023 3:40 PM CDT Closed displaced fracture of fifth metatarsal bone of right foot, initial encounter TX APPLICATION SHORT LEG CAST WALKING/AMBULATORY Routine 03/08/2023 3:40 PM CDT Closed displaced fracture of fifth metatarsal bone of right foot, initial encounter documented in this encounter Results * TX APPLICATION SHORT LEG CAST WALKING/AMBULATORY, TX CAST SUP SHRT LEG FIBERGLASS (03/08/2023 3:40 PM CDT) Narrative Young Leonardo - 03/08/2023 3:40 PM CDT Young Leonardo ? 03/08/2023 ??3:41 PM Ortho Casting/Splinting Documentation Date/Time: 03/08/2023 3:40 PM Performed by: Young Leonardo Authorized by: Marco Antonio Reynoso NP ?? Sensation: ??Normal Skin Condition: ??Clean, dry, and intact [place]/Sutures Removed: No ?? Pin Pulled: No ?? [...] Primary documented in this encounter Care Teams Manager Resource Relationship Specialty Start Date End Date Lorie Vanessa NP [address] [place] [address] PCP - General Family Practice 05/29/22 No, Physician 06/08/21 documented as of this encounter
--- OUTSIDE RECORDS SUMMARY | 2024-06-06 05:24 | XMS_ITS | Encounter Summary ---
Author Organization [facility] Healthcare Address [address] [place] [address] Care Team Providers Care Director Broadcast Name Role Phone No, Physician Unavailable Lorie Vanessa NP Primary Care Provider Reason for Visit * Reason Comments Abdominal Pain Encounter Details Date Type Department Care Team (Late st Contact Info) Description 04/17/2023 2:08 AM [facility] - 04/17/2023 4:38 AM [facility] Emergency [facility] Emergency Department [address] [place] [address] Zackery Lagos MD [address] [place] [address] Abdominal pain (Primary Dx); Nausea and [...] on file Legal Sex Female 6:55 PM HAULAGE BOSS Gender Identity Female 06/06/2022 7:40 AM HAULAGE BOSS Sexual Orientation Not on file documented as of this encounter Last Filed Vital Signs Vital Sign Reading Time Taken Comments Blood Pressure 129/78 04/17/2023 3:00 AM HAULAGE BOSS Pulse 80 04/17/2023 4:15 AM HAULAGE BOSS Temperature 36.9 ??C (98.4 ??F) 04/17/2023 1:43 AM CS T Respiratory Rate 19 04/17/2023 4:15 AM HAULAGE BOSS Oxygen Saturation 97% 04/17/2023 4:15 AM HAULAGE BOSS Inhaled Oxygen Concentration - - Weight 151.8 kg (334 lb 10.5 oz) 04/16/2023 7:53 PM HAULAGE BOSS Height - - Body Mass Index 57.42 01/30/2023 9:54 AM CDT documented in this encounter Discharge Instructions * Discharge Instructions* Zcakery Lagos MD - 04/17/2023 4:27 AM HAULAGE BOSS Today you were seen and evaluated for [...] concerning symptomsplease return to the emergency room. AGE BOSS AGE BOSS * Attachments The following attachments cannot be sent through Care Everywhere. * Abdominal Pain (AfterCare(R) Instructions(ER/ED)) (Uruguayan) * Rectal Bleeding (AfterCare(R) Instructions(ER/ED)) (Uruguayan) documented in this encounter Medications at Time [...] precautions This examination was transcribed using the idemama voice recognition system without human boatbuilder supervisor. In an effort to expedite patient care, this report has not been adjusted for typographical, grammatical, and syntax by a trained medical cost consultant. Close outpatient follow-up with a low threshold to return has been mandated , concerning symptoms have been emphasized in detail, and this patient expresses understanding Clinical Impression: Abdominal pain Nausea and vomiting, unspecified vomiting type Rectal bleeding Dispo Discharged home MD Demond Manzano Isaac Ignatius, MD 04/17/23 0456 AGE BOSS * Shanelle Can, RN - 04/16/2023 7:52 PM CST Pt to ED with c/o left lower abdominal pain, diarrhea, nausea and vomiting. Pt states on 04/07 she was diagnosed with epiploic appendagitis and followed up with GI. Pt was instructed to come here dueto the increased pain, NVD. AGE BOSS documented in this encounter Plan of Treatment Not on file documented as of this encounter Procedures Procedure Name Priority Date/Time Associated Diagnosis Comments CT ABDOMEN PELVIS W CONTRAST ED 04/16/2023 10:35 PM HAULAGE BOSS POCT HCG, URINE Routine 04/16/2023 9:10 PM HAULAGE BOSS URINALYSIS AND REFLEX TO MICROSCOPIC AND CULTURE STAT 04/16/2023 8:53 PM HAULAGE BOSS URINALYSIS, MICROSCOPIC ONLY STAT 04/16/2023 8:53 PM HAULAGE BOSS EGFR STAT 04/16/2023 7:57 PM HAULAGE BOSS DIFFERENTIAL AUTO STAT 04/16/2023 7:5 7 PM HAULAGE BOSS CBC WITH AUTO DIFFERENTIAL STAT 04/16/2023 7:57 PM HAULAGE BOSS LIPASE STAT 04/16/2023 7:57 PM HAULAGE BOSS COMPREHENSIVE METABOLIC PANEL STAT 04/16/2023 7:57 PM HAULAGE BOSS documented in this encounter Results * CT Abdomen Pelvis W Contrast (04/16/2023 10:35 PM HAULAGE BOSS) Anatomical Region Laterality Modality Body N/A Computed Tomogra phy 04/16/2023 10:3 8 PM HAULAGE BOSS Narrative 04/16/2023 10:45 PM HAULAGE BOSS EXAM DESCRIPTION: ?? CT ABDOMEN PELVIS W [...] PM T: ??04/16/2023 10:45 PM Report ID: [id number] Reading Location: ??[id number] Procedure Note Dejan Rahman MD - 04/16/2023 [...] Dejan Rahman M.D. AR: ENE Report ID: [id number] Reading Location: [place] [address] PROCEDURES Final Resu lt * POCT hCG, urine (04/16/2023 9:10 PM HAULAGE BOSS) Pathologist [facility] HCG, ur, POC Negative Negative Lot Number [id number] QC Backgroud Clear Acceptable QC Control Line Acceptable Urine 04/16/2023 9:10 PM HAULAGE BOSS Zackery Lagos MD POINT OF CARE TEST KAREN HIGHTOWER Final Result * (ABNORMAL) Urinalysis, microscopic only (04/16/2023 8:53 PM HAULAGE BOSS) WBC, ur 0-5 0 - 5 /HPF [facility] Comment:Testing performed by : [facility], [address] [place] [address]., [address] RBC, ur 3-5(A) 0 - 2 /HPF FRAN Comment:Testing performed by : [address] [address] Epithelial cells, squamous, ur >50(A) 0 - 5 /HPF FRAN Comment:Testing performed by : [address], [place]., [address] Bacteria, ur Trace(A) FRAN Comment:Testing performed by : [address] [address] Mucous, ur Present(A) FRAN Comment:Testing performed by : [address], [place]., [address] Culture Reflex Comment Reflex conditions for urine culture (WBC >10) not met. FRAN Comment:Testing performed by : [address] [address] Urine 04/16/2023 8:53 PM HAULAGE BOSS 04/16/2023 9:02 PM HAULAGE BOSS us Zackery Lagos MD LAB URINE ORDERABLES Fi nal Result [facility] Department [place] [address] * (ABNORMAL) Urinalysis reflex to microscopic and culture Urine (04/16/2023 8:53 PM HAULAGE BOSS) Color, ur Yellow Yellow FRAN Comment:Testing performed by : [address] [address] Clarity, ur Cloudy(A) Clear FRAN Comment:Testing performed by : [address] [address] Specific gravity, ur 1.021 1.003 - 1.030 FRAN Comment:Testing performed by : [address] [address] pH, urine 6.0 FRAN Comment: Interpretive Data ? Urine pH is affected by diet, medications, systemic acid-base disturbances, and renal tubular function. ??pH may affect urinary stone formation. ??For example, urine pH below 6.0 may help reduce the tendency for calcium phosphate stones and pH greater than 6.0 may reduce the tendency for uric acid stone formation. Source: [facility] Current Interpretive Data was last revised on 2017 Testing performed by: [facility], [address] [place] [address]., [address] Protein, ur ql Negative Negative FRAN Comment:Testing performed by : [address] [address] Glucose, ur ql Negative Negative FRAN Comment:Testing performed by : [address], [place]., [address] Ketones, ur Trace Negative FRAN Comment:Testing performed by : [address] [address] Bilirubin, ur Negative Negative FRAN Comment:Testing performed by : [address], [place]., [address] Blood, ur Negative Negative FRAN Comment:Testing performed by : [address], [place]., [address] Urobilinogen, ur <2.0 <2.0 mg/dL FRAN Comment:Testing performed by : [address] [address] Nitrite, ur Negative Negative FRAN Comment:Testing performed by : [address] [address] Leukocyte esterase, ur 1+(A) Negative FRAN Comment:Testing performed by : [address] [address] UA reflex comment Reflex to microscopic UA will be performed. FRAN Comment:Testing performed by : [address] [address] Urine 04/16/2023 8:53 PM HAULAGE BOSS 04/16/2023 9:02 PM HAULAGE BOSS us Zackery Lagos MD LAB MICROBIOLOGY - GENE [facility] ORDERABLES Final Result FRAN [address] [facility] Department [place] [address] * eGFR (04/16/2023 7:57 PM HAULAGE BOSS) eGFR 128 mL/min/1. 73 m2 [facility]AN [facility]YS [...] was last reviewed 2021. Testing performed by: [facility], [address] [place] [address]., [address] Blood 04/16/2023 7:57 PM HAULAGE BOSS 04/16/2023 8:02 PM HAULAGE BOSS us Zackery Lagos MD LAB BLOOD ORDERABLES Fi nal Result [facility]AN [facility] [address] [facility] Department [place] [address] * (ABNORMAL) Differential, auto (04/16/2023 7:57 PM HAULAGE BOSS) Pathologist [facility] Neutrophil abs 7.0(H) 1.7 - 6.5 K/cumm [facility] Comment:Testing performed by : [address] [address] Imm gran abs 0.1 0.0 - 0.1 K/cumm CERNER Comment:Testing performed by : [address] [address] Lymphocyte abs 2.4 0.8 - 3.3 K/cumm CERNER Comment:Testing performed by : [address] [address] Monocyte abs 1.1(H) 0.2 - 0.8 K/cumm [facility] Comment:Testing performed by : [address], [place]., [address] Eosinophil abs 0.2 0.0 - 0.5 K/cumm FRAN Comment:Testing performed by : [address] [address] Basophil abs 0.1 0.0 - 0.1 K/cumm [facility] Comment:Testing performed by : [address] [address] Neutrophil pct 64.5 % [facility] Comment: Interpretive Data Percent cell count reference ranges are not reported, since discordance with absolute values may lead to misinterpretation of CBC data. Current Interpretive Data was last revised on 2017. Testing performed by: [address] [address] Imm gran pct 0.6 % [facility] Comment: Interpretive Data Percent cell count reference ranges are not reported, since discordance with absolute values may lead to misinterpretation of CBC data. Current Interpretive Data was last revised on 2017. Testing performed by: [address] [address] Lymphocyte pct 21.8 % C[facility]ER Comment: Interpretive Data Percent cell count reference ranges are not reported, since discordance with absolute values may lead to misinterpretation of CBC data. Current Interpretive Data was last revised on 2017. Testing performed by: [address] [address] Monocyte pct 10.3 % C[facility]ER Comment: Interpretive Data Percent cell count reference ranges are not reported, since discordance with absolute values may lead to misinterpretation of CBC data. Current Interpretive Data was last revised on 2017. Testing performed by: [address] [address] Eosinophil pct 2.0 % FRAN Comment: Interpretive Data Percent cell count reference ranges are not reported, since discordance with absolute values may lead to misinterpretation of CBC data. Current Interpretive Data was last revised on 2017. Testing performed by: [address] [address] Basophil pct 0.8 % FRAN Comment: Interpretive Data Percent cell count reference ranges are not reported, since discordance with absolute values may lead to misinterpretation of CBC data. Current Interpretive Data was last revised on 2017. Testing performed by: [address] [address] Blood 04/16/2023 7:57 PM HAULAGE BOSS 04/16/2023 8:02 PM HAULAGE BOSS Zackery Laogs MD LAB BLOOD ORDERABLES Fi nal Result Performing Organization Address City/[facility] Co de Phone Number [address] [place] [address] * Lipase (04/16/2023 7:57 PM HAULAGE BOSS) Lipase 20 10 - 99 Units/L FRAN Comment:Testing performed by : [address] [address] Blood (Blood, Venous) 04/16/2023 7:57 PM HAULAGE BOSS 04/16/2023 8:02 PM HAULAGE BOSS Zackery Lagos MD LAB BLOOD ORDERABLES Fi nal Result [address] [address] * Comprehensive metabolic panel (04/16/2023 7:57 PM HAULAGE BOSS) Sodium 138 135 - 145 mmol/L FRAN Comment:Testing performed by : [address], [place]., [address] Potassium, pl 3.8 3.3 - 4.9 mmol/L FRAN Comment:Testing performed by : [address], [place]., [address] Chloride 101 97 - 110 mmol/L FRAN Comment:Testing performed by : [address], [place]., [address] CO2 25 22 - 32 mmol/L FRAN Comment:Testing performed by : [address], [place]., [address] Anion gap 12 2 - 15 mmol/L FRAN Comment:Testing performed by : [address], [place]., [address] BUN 7 6 - 25 mg/dL FRAN Comment:Testing performed by : [address], [place]., [address] Creatinine 0.60 0.60 - 1.10 mg/dL FRAN Comment:Testing performed by : [address], [place]., [address] Glucose 91 70 - 199 mg/dL FRAN [...] was last revised 2022. Testing performed by: [address] [address] Calcium 9.4 8.5 - 10.3 mg/dL FRAN Comment:Testing performed by : [address], [place]., [address] Bilirubin, total 0.3 0.1 - 1.2 mg/dL FRAN Comment:Testing performed by : [address] [address] Protein, pl 7.6 6.5 - 8.5 g/dL [facility] Comment:Testing performed by : [address] [address] Albumin 4.1 3.5 - 5.0 g/dL [facility] Comment:Testing performed by : [address], [place]., [address] Alk phos 109 40 - 130 Units/L [facility] Comment:Testing performed by : [address] [address] ALT 18 7 - 45 Units/L FRAN Comment:Testing performed by : [address] [address] AST 21 10 - 45 Units/L FRAN Comment:Testing performed by : [address] [address] Blood 04/16/2023 7:57 PM HAULAGE BOSS 04/16/2023 8:02 PM HAULAGE BOSS us Zackery Lagos MD LAB BLOOD ORDERABLES Fi nal Result FRAN [facility] Department of Laboratories [place], [place] [id number] * (ABNORMAL) CBC with auto differential (04/16/2023 7:57 PM HAULAGE BOSS) [facility] WBC 10.9(H) 3.8 - 9.9 K/cumm [facility] Comment:Testing performed by : [address] [address] Hgb 13.7 11.9 - 15.5 g/dL [facility] Comment: Interpretive Data A reference range for this assay has not been established for patients with an unknown legal sex. Please refer to the laboratory test catalog for established sex-specific reference intervals. Current interpretive data was last revised on 2023. Testing performed by: [address] [address] Hct 41.3 35.6 - 45.5 % [facility] Comment: Interpretive Data A reference range for this assay has not been established for patients with an unknown legal sex. Please refer to the laboratory test catalog for established sex-specific reference intervals. Current interpretive data was last revised on 2023. Testing performed by: [address] [address] Plt 437(H) 150 - 400 K/cumm FRAN Comment:Testing performed by : [address] [address] MPV 8.5(L) 9.1 - 12.3 fL FRAN Comment:Testing performed by : [address] [address] RBC 4.97 3.90 - 5.20 M/cumm FRAN Comment: Interpretive Data A reference range for this assay has not been established for patients with an unknown legal sex. Please refer to the laboratory test catalog for established sex-specific reference intervals. Current interpretive data was last revised on 2023. Testing performed by: [address] [address] MCV 83.1 81.3 - 96.4 fL FRAN Comment:Testing performed by : [address] [address] MCH 27.6 27.1 - 33.3 pg FRAN Comment:Testing performed by : [address] [address] MCHC 33.2 32.3 - 35.7 g/dL FRAN Comment:Testing performed by : [address] [address] RDW CV 12.4 11.1 - 14.9 % FRAN Comment:Testing performed by : [address] [address] RDW SD 37.7 35.7 - 48.1 fL FRAN Comment:Testing performed by : [address] [address] NRBC abs 0.00 0.00 - 0.01 K/cumm FRAN Comment:Testing performed by : [address] [address] Blood (Blood, Venous) 04/16/2023 7:57 PM HAULAGE BOSS 04/16/2023 8:02 PM HAULAGE BOSS us Zackery Lagos MD LAB BLOOD ORDERABLES Fi nal Result FRAN [facility] [address] [facility] [place] [address] documented in this encounter Visit Diagnoses Diagnosis [...] For 1 dose Given 04/17/2023 3:22 AM HAULAGE BOSS 25 mg HYDROmorphone (DILAUDID) injection 0.5 mg 0.5 mg, intravenous, Administer over 2 Minutes, Once, On Sat04/17/23 at 0300, For 1 dose Given 04/17/2023 3:22 AM HAULAGE BOSS 0.5 mg ioversoL (OPTIRAY 350) syringe 100 mL 100 mL, intravenous, Once in imaging, contrast, Starting on Sat04/16/23 at 2230, For 1 dose Contrast Given 04/16/2023 10:30 PM HAULAGE BOSS 100 mL Right Antecubital prochlorperazine (COMPAZINE) injection 10 mg 10 mg, intravenous, Administer over 2 Minutes, Once, On Sat04/17/23 at 0300, For 1 dose Given 04/17/2023 3:22 AM HAULAGE BOSS 10 mg documented in this encounter Active and Recently Administered Medications Times are shown in HAULAGE BOSS. Scheduled Medication Order 04/15/2023 04/16/2023 04/17/2023 diphenhydrAMINE [...] 04/16/2023 documented in this encounter Care Teams Director Broadcast Relationship Specialty Start Date End Date Lorie Vanessa NP [address] [place] [address] PCP - General Family Practice 05/29/22 No, Physician 06/08/21 documented as of this encounter
--- OUTSIDE RECORDS SUMMARY | 2024-06-06 05:24 | XMS_ITS | Encounter Summary ---
Author Organization [facility] Healthcare Address [address] [place] [address] Care Team Providers Care Glass Bead Maker Name Role Phone No, Physician Unavailable Lorie Vanessa NP Primary Care Provider [phone] Reason for Visit * Reason Comments Diarrhea Entered automaticall y based on patient selection in Gravie. Encounter Details Date Type Department Care Team (Late st Contact Info) Description 04/08/2023 4:30 PM VENDING MACHINE COLLECTOR E-Visit [facility] Medical Group Virtual Care [address] [place] [phone] Emily Clay MD [address] [place] [address] [address] MURRELL [address] [place] [id number] E-Visit for Diarrhea Social History Tobacco [...] on file Legal Sex Female 6:55 PM VENDING MACHINE COLLECTOR Gender Identity Female 06/06/2022 7:40 AM VENDING MACHINE COLLECTOR Sexual Orientation Not on file documented as [...] prescribed, if applicable, as well as any [id number] remedies. She was given instructions regarding follow up and timeframe if symptoms worsen or don???t improve. These instructions were included in the Gravie message reply tothe patient. Patient Instructions were included in the message reply to patient. My total encounter time on 04/08/2023 was 5 minutes which was spent in the activities documented inthe note. Emily Clay MD ING MACHINE COLLECTOR documented in this encounter Plan of Treatment Not on file documented as of this encounter Visit Diagnoses Diagnosis Diarrhea of presumed infectious origin- Primary Nausea and vomiting, unspecified vomiting type documented in this encounter Care Teams Glass Bead Maker Relationship Specialty Start Date End Date Lorie Vanessa NP [address] [place] [address] PCP - General Family Practice 05/29/22 No, Physician 06/08/21 documented as of this encounter
--- OUTSIDE RECORDS SUMMARY | 2024-06-06 05:24 | XMS_ITS | Encounter Summary ---
Author Organization [facility] Healthcare Address [address] [place] [address] Care Team Providers Care Canvas Products Sales Representative Name Role Phone No, Physician Unavailable Lorie Vanessa NP Primary Care Provider [phone] Encounter Details Date Type Department Care Team (Late st Contact Info) Description 04/11/2023 Orders Only [facility] Gastroenterology at [address] [place] [address] Cj Thomas MD [address] [place] [address] [address] [place] [address] Epiploic appendagitis (Primary Dx) Social [...] on file Legal Sex Female 6:55 PM STAGE RIGGER Gender Identity Female 06/06/2022 7:40 AM STAGE RIGGER Sexual Orientation Not on file documented as of this encounter Plan of Treatment Not on file documented as of this encounter Visit Diagnoses Diagnosis Epiploic appendagitis- Primary documented in this encounter Care Teams Canvas Products Sales Representative Relationship Specialty Start Date End Date Lorie Vanessa NP [address] [place] [address] PCP - General Family Practice 05/29/22 No, Physician 06/08/21 documented as of this encounter
--- OUTSIDE RECORDS SUMMARY | 2024-06-06 05:24 | XMS_ITS | Encounter Summary ---
Author Organization [facility] Healthcare Address [address] [place] [address] Care Team Providers Care Continuous Conveyor Screen Drier Name Role Phone No, Physician Unavailable Lorie Vanessa NP Primary Care Provider [phone] Reason for Visit * Diagnostic Imaging (Routine) - Closed Specialty Diagnoses / Procedures Referred By Cyn burnett Referred To Contact Diagnoses Nausea Procedures NM Gastric Emptying Cj Thomas MD [address] [place] [address] Phone: tel: fax: [address] [phone] Referral ID Status Reason Start Date Expiration Date Visits Re quested Visits Authorized [id number] Closed 03/07/2023 04/05/2024 5 5 Encounter Details Date Type Department Care Team (Latest Contact Info) Description 03/19/2023 10:18 AM CDT - 03/19/2023 11:59 PM CDT Hospital Encounter [facility] Nuclear Medicine [address] [place] [address] Discharge Disposition: Discharge to home or [...] on file Legal Sex Female 6:55 PM RAT EXTERMINATOR Gender Identity Female 06/06/2022 7:40 AM RAT EXTERMINATOR Sexual Orientation Not on file documented as [...] D: ??03/19/2023 3:08 PM T: Report ID: [id number] Reading Location: ??[id number] Procedure Note Zaheer Berry Jr., MD - [...] by Zaheer Berry M.D. T: Report ID: [id number] Reading Location: [place] [address] Cj William [facility] Final Result documented in this encounter Visit Diagnoses Not on filedocumented in this encounter Care Teams Continuous Conveyor Screen Drier Relationship Specialty Start Date End Date Lorie Vansesa NP [address] [place] [address] PCP - General Family Practice 05/29/22 No, Physician 06/08/21 documented as of this encounter
--- OUTSIDE RECORDS SUMMARY | 2024-06-06 05:24 | XMS_ITS | Encounter Summary ---
Author Organization [facility] Healthcare Address [address] [place] [address] Care Team Providers Care Watch Guard Gate Name Role Phone No, Physician Unavailable Lorie Vanessa NP Primary Care Provider [phone] Reason for Visit * Reason Comments PT Treatment * Consultation (Routine) - Closed Specialty Diagnoses / Procedures Referred By Cyn burnett Referred To Contact Physical Therapy Diagnoses Left lumbar pain Justin Grover NP [address] [place] [address] Phone: tel: fax: [address] [phone] Referral ID Status Reason Start Date Expiration Date V isits Requested Visits Authorized [id number] Closed Evaluate and Treat 02/11/2023 03/12/2024 18 18 Encounter Details Date Type Department Care Team (Late st Contact Info) Description 03/21/2023 4:30 PM CDT Therapy [facility] Physical Therapy [address] [place] [phone] Jodi Gan, GRACIELA Left lumbar pain [...] on file Legal Sex Female 6:55 PM PRESSURE DISPATCHER Gender Identity Female 06/06/2022 7:40 AM PRESSURE DISPATCHER Sexual Orientation Not on file documented [...] Precautions: None ADJUSTOR: SAMMY TURNER PHONE NUMBER: [phone] CLAIM #: [id number] DATE OF INJURY: 01/20/2023 History: 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 Followed back up with [facility] (02/11/23) and was referred back to PT [...] hip abduction X10 each, ANA Bridging with mexican ball 2x10 2x10. Wincing and grimacing end of second set. -- Prone alternating hip extension with lower abdominal contraction 2x10 ANA X10 ANA. -- Seated Nerve Glides L 10 ankle pumps x5 sets, R slumping with knee flexion & erect with knee extension to glide nerve 2x10 -- Seated TA with alternating LE march, small ROM 2x10 ANA. Seated rows Blue Zambian ball, 2x12, Green theraband Seated latissimus dorsi pull downs Blue Zambian ball, 2x12 Green theraband Standing frontal plane [...] cueing with seated core stability drills on Zambian ball this visit for correct biomechanics and [...] Code Calculator Minutes for Ther Ex/Ther Procedure (08803):: 30 minutes Minutes for Neuro Re-Ed (03923): : 10 minutes Timed Code Treatment Minutes:: 40 minutes Total Treatment Time: 40 documented in this encounter Plan of Treatment Not on file documented as of this encounter Visit Diagnoses Diagnosis Left lumbar pain- Primary Lumbago Sprain of ligaments of lumbar spine, initial encounter documented in this encounter Care Teams Watch Guard Gate Relationship Specialty Start Date End Date Lorie Vanessa NP [address] [place] [address] PCP - General Family Practice 05/29/22 No, Physician 06/08/21 documented as of this encounter
--- OUTSIDE RECORDS SUMMARY | 2024-06-06 05:24 | XMS_ITS | Encounter Summary ---
Author Organization [facility] Healthcare Address [address] [place] [address] Care Team Providers Care Open Cut Examiner Name Role Phone No, Physician Unavailable Lorie Vanessa NP Primary Care Provider [phone] Encounter Details Date Type Department Care Team (Late st Contact Info) Description 04/22/2023 Telephone [facility] Primary Care at [place] [address] [facility] [address] [place] [address] Lorie Vanessa NP [facility] [address] [address] Social History Tobacco Use Types [...] file Legal Sex Female 6:55 PM DIRECTOR OF LOSS PREVENTION Gender Identity Female 06/06/2022 7:40 AM DIRECTOR OF LOSS PREVENTION Sexual Orientation Not on file documented as of this encounter Miscellaneous Notes * Telephone Encounter - Lorie Vanessa NP - 04/22/2023 1:13 PM CST Referral made to Dermatology for evaluation of recurrent skin lesions of buttock and breasts. CTOR OF LOSS PREVENTION documented in this encounter Plan of Treatment Not on file documented as of this encounter Visit Diagnoses Diagnosis Skin lesion of breast- Primary Nodule of buttock documented in this encounter Care Teams Open Cut Examiner Relationship Specialty Start Date End Date Lorie Vanessa NP [address] [place] [address] PCP - General Family Practice 05/29/22 No, Physician 06/08/21 documented as of this encounter
--- OUTSIDE RECORDS SUMMARY | 2024-06-06 05:24 | XMS_ITS | Encounter Summary ---
Author Organization [facility] Healthcare Address [address] [place] [address] Care Team Providers Care Stretcher And Drier Name Role Phone No, Physician Unavailable Lorie Vanessa NP Primary Care Provider [phone] Reason for Visit * Reason Comments PT Treatment * Consultation (Routine) - Closed Specialty Diagnoses / Procedures Referred By Cyn burnett Referred To Contact Physical Therapy Diagnoses Left lumbar pain Justin Grover NP [address] [place] [address] Phone: tel: fax: [address] [phone] Referral ID Status Reason Start Date Expiration Date V isits Requested Visits Authorized [id number] Closed Evaluate and Treat 02/11/2023 03/12/2024 18 Encounter Details Date Type Department Care Team (Late st Contact Info) Description 03/22/2023 11:00 AM CDT Therapy [facility] Physical Therapy [address] [place] [phone] Jodi Gan, GRACIELA Left lumbar pain [...] on file Legal Sex Female 6:55 PM PRECISE WINDER Gender Identity Female 06/06/2022 7:40 AM PRECISE WINDER Sexual Orientation Not on file documented [...] Precautions: None ADJUSTOR: SAMMY TURNER PHONE NUMBER: [phone] CLAIM #: [id number] DATE OF INJURY: 01/20/2023 History: working on [...] metat[place]. Wearing a boot real time operator, but is allowed to remove with supine exercises. Followed back up with [facility] (02/11/23) and was referred back to [...] each, ANA 2x12 each, ANA Bridging with prydeinig ball 2x10. Wincing and grimacing end of second set. -- Prone alternating hip extension with lower abdominal contraction X10 ANA. -- Seated Nerve Glides -- Seated TA with alternating LE march, small ROM 2x10 ANA. Seated rows Blue Samoan ball, 2x12, Green theraband Blue Samoan ball, 2x12, Green theraband Seated latissimus dorsi pull downs Blue Samoan ball, 2x12 Green theraband Blue Samoan ball, 2x12, Green theraband Pallof press X10 [...] Code Calculator Minutes for Ther Ex/Ther Procedure (08390):: 31 minutes Minutes for Neuro Re-Ed (49024): : 8 minutes Timed Code Treatment Minutes:: 39 minutes Total Treatment Time: 39 documented in this encounter Plan of Treatment Not on file documented as of this encounter Visit Diagnoses Diagnosis Left lumbar pain- Primary Lumbago Sprain of ligaments of lumbar spine, initial encounter documented in this encounter Care Teams Stretcher And Drier Relationship Specialty Start Date End Date Lorie Vanessa NP [address] [place] [address] PCP - General Family Practice 05/29/22 Mel, Physician 06/08/21 documented as of this encounter
--- OUTSIDE RECORDS SUMMARY | 2024-06-06 05:24 | XMS_ITS | Encounter Summary ---
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 * Abdominal Pain (AfterCare(R) Instructions(ER/ED)) (Cook Islander) documented in this encounter Medications at [...] Normal HCG, ur, POC Negative Lot Number [id number] QC Backgroud Clear Acceptable QC Control Line [...] base. Electronically signed by: Ray Cruz M.D. ED COURSE/MEDICAL DECISION MAKING Differential diagnosis included but not limited to Appendicitis, abdominal aortic aneurysm, surgical biliary disease, pancreatitis, SBO, mesenteric ischemia, serious intra-abdominal bacterial illness, UTI. Presentation also not typical of gynecologic emergencies such as TOA, Ovarian Torsion, PID. Not Ectopic. Doubt atypical ACS. Patient's medical records were reviewed. I discussed management or test interpretation with the following outside physician, caregiver, long term staff: n/a ED Course as of 02/27/23203 [...] PATIENT INSTRUCTED TO FOLLOW UP Lorie Vanessa, HVAC SPECIALIST [address] [facility] 210 [facility] [address] Schedule an appointment as soon as possible for a visit in 3 days ER follow up, nausea and vomiting, abdominal pain Cj Thomas MD [address] [facility] 280 [facility] [address] Schedule an appointment as soon as [...] persist This examination was transcribed using the [employer] Meister voice recognition system without human animal killer. In an effort to expedite patient care, this report has not been adjusted for typographical, grammatical, and syntax by a trained medical corps officer. Lakisha Mathis PA 02/27/23 0204 Cosigned by [...] PM T: ??02/26/2023 11:03 PM Report ID: [id number] Reading Location: ??[id number] Procedure Note Tyler Glass MD - 02/26/2023 [...] Tyler Glass M.D. KT: KEIRY Report ID: [id number] Reading Location: [id number] us Lakishafazal LEYVA IMG CT PROCEDURES Final Result * POCT hCG, urine (02/26/2023 9:34 PM CDT) HCG, ur, POC Negative Negative Lot Number [id number] QC Backgroud Clear Acceptable QC Control Line Acceptable Urine 02/26/2023 9:34 PM CDT us Lakishagenesis Mathis PA POINT OF CARE TEST ORDERABLES Fi nal Result * (ABNORMAL) Urinalysis, microscopic only (02/26/2023 9:22 PM CDT) Pathologist [facility] WBC, ur 0-5 0 - 5 /HPF FRAN Comment:Testing performed by : [address] [address] RBC, ur 6-10(A) 0 - 2 /HPF FRAN Comment:Testing performed by : [address] [address] Epithelial cells, squamous, ur 21-50(A) 0 - 5 /HPF FRAN Comment:Testing performed by : [address] [address] Mucous, ur Present(A) FRAN Comment:Testing performed by : [address] [address] Culture Reflex Comment Reflex conditions for urine culture (WBC >10) not met. FRAN Comment:Testing performed by : [address] [address] Urine 02/26/2023 9:22 PM CDT 02/26/2023 9:36 PM CDT us Lakisha LEYVA LAB URINE ORDERABLES Final Resul t FRAN HAYS [address] [facility] Department of Laboratories [place], [place] [id number] * (ABNORMAL) Urinalysis reflex to microscopic and culture Urine (02/26/2023 9:22 PM CDT) Color, ur Yellow Yellow FRAN Comment:Testing performed by : [address] [address] Clarity, ur Cloudy(A) Clear FRAN Comment:Testing performed by : [address], [place]., [address] Specific gravity, ur 1.023 1.003 - 1.030 FRAN Comment:Testing performed by : [address] [address] pH, urine 5.0 FRAN Comment: Interpretive Data ? Urine pH is affected by diet, medications, systemic acid-base disturbances, and renal tubular function. ??pH may affect urinary stone formation. ??For example, urine pH below 6.0 may help reduce the tendency for calcium phosphate stones and pH greater than 6.0 may reduce the tendency for uric acid stone formation. Source: [facility] LoginRadius Current Interpretive Data was last revised on 2017 Testing performed by: [address] [address] Protein, ur ql Negative Negative FRAN Comment:Testing performed by : [address] [address] Glucose, ur ql Negative Negative FRAN Comment:Testing performed by : [address] [address] Ketones, ur Negative Negative FRAN Comment:Testing performed by : [address] [address] Bilirubin, ur Negative Negative FRAN Comment:Testing performed by : [address] [address] Blood, ur 1+(A) Negative FRAN Comment:Testing performed by : [address] [address] Urobilinogen, ur <2.0 <2.0 mg/dL FRAN Comment:Testing performed by : [address] [address] Nitrite, ur Negative Negative FRAN Comment:Testing performed by : [address] [address] Leukocyte esterase, ur Negative Negative FRAN HAYS Comment:Testing performed by : [facility], [address] [place] [address]., [address] UA reflex comment Reflex to microscopic UA will be performed. FRAN HAYS Comment:Testing performed by : [facility], [address] [place] [address]., [address] Urine 02/26/2023 9:22 PM CDT 02/26/2023 9:36 PM CDT us Lakisha LEYVA LAB MICROBIOLOGY - GENERAL ORDER DAVIN Final Result FRAN [address] [facility] Department [place] [address] * eGFR (02/26/2023 9:21 PM [...] was last reviewed 2021. Testing performed by: [address] [address] Blood 02/26/2023 9:21 PM CDT 02/26/2023 9:35 PM CDT us Lakisha LEYVA LAB BLOOD ORDERABLES Final Resul t [facility] [address] [facility] Department [place] [address] * (ABNORMAL) Differential, auto (02/26/2023 9:21 PM CDT) Neutrophil abs 8.0(H) 1.7 - 6.5 K/cumm FRAN Comment:Testing performed by : [address] [address] Imm gran abs 0.1 0.0 - 0.1 K/cumm FRAN Comment:Testing performed by : [address] [address] Lymphocyte abs 2.9 0.8 - 3.3 K/cumm FRAN Comment:Testing performed by : [address] [address] Monocyte abs 0.8 0.2 - 0.8 K/cumm FRAN Comment:Testing performed by : [address] [address] Eosinophil abs 0.2 0.0 - 0.5 K/cumm FRAN Comment:Testing performed by : [address] [address] Basophil abs 0.1 0.0 - 0.1 K/cumm FRAN Comment:Testing performed by : [address] [address] Neutrophil pct 66.8 % FRAN Comment: Interpretive Data Percent cell count reference ranges are not reported, since discordance with absolute values may lead to misinterpretation of CBC data. Current Interpretive Data was last revised on 2017. Testing performed by: [address] [address] Imm gran pct 0.4 % [facility] Comment: Interpretive Data Percent cell count reference ranges are not reported, since discordance with absolute values may lead to misinterpretation of CBC data. Current Interpretive Data was last revised on 2017. Testing performed by: [address] [address] Lymphocyte pct 23.8 % [facility] Comment: Interpretive Data Percent cell count reference ranges are not reported, since discordance with absolute values may lead to misinterpretation of CBC data. Current Interpretive Data was last revised on 2017. Testing performed by: [address] [address] Monocyte pct 6.7 % [facility] Comment: Interpretive Data Percent cell count reference ranges are not reported, since discordance with absolute values may lead to misinterpretation of CBC data. Current Interpretive Data was last revised on 2017. Testing performed by: [address] [address] Eosinophil pct 1.7 % [facility] Comment: Interpretive Data Percent cell count reference ranges are not reported, since discordance with absolute values may lead to misinterpretation of CBC data. Current Interpretive Data was last revised on 2017. Testing performed by: [address] [address] Basophil pct 0.6 % [facility] Comment: Interpretive Data Percent cell count reference ranges are not reported, since discordance with absolute values may lead to misinterpretation of CBC data. Current Interpretive Data was last revised on 2017. Testing performed by: [address] [address] Blood 02/26/2023 9:21 PM CDT 02/26/2023 9:35 PM CDT us Lakisha LEYVA LAB BLOOD ORDERABLES Final Resul t FRAN HAYS [address] [facility] Department [place] [address] * Lipase (02/26/2023 9:21 PM CDT) Lipase 22 10 - 99 Units/L FRAN Comment:Testing performed by : [address] [address] Blood (Blood, Venous) 02/26/2023 9:21 PM CDT 02/26/2023 9:35 PM CDT us Lakisha LEYVA LAB BLOOD ORDERABLES Final Resul t FRAN [address] [facility] Department [place] [address] * Comprehensive metabolic panel (02/26/2023 9:21 PM CDT) Pathologist [facility] Sodium 140 135 - 145 mmol/L FRAN Comment:Testing performed by : [address] [address] Potassium, pl 4.0 3.3 - 4.9 mmol/L FRAN Comment:Testing performed by : [address] [address] Chloride 104 97 - 110 mmol/L FRAN Comment:Testing performed by : [address] [address] CO2 24 22 - 32 mmol/L FRAN Comment:Testing performed by : [address] [address] Anion gap 12 2 - 15 mmol/L FRAN Comment:Testing performed by : [address] [address] BUN 10 6 - 25 mg/dL FRAN Comment:Testing performed by : [address] [address] Creatinine 0.80 0.60 - 1.10 mg/dL FRAN Comment:Testing performed by : [address] [address] Glucose 94 70 - 199 mg/dL FRAN [...] was last revised 2022. Testing performed by: [address] [address] Calcium 9.5 8.5 - 10.3 mg/dL FRAN Comment:Testing performed by : [address] [address] Bilirubin, total 0.5 0.1 - 1.2 mg/dL FRAN Comment:Testing performed by : [address] [address] Protein, pl 7.8 6.5 - 8.5 g/dL FRAN Comment:Testing performed by : [address] [address] Albumin 4.3 3.5 - 5.0 g/dL FRAN Comment:Testing performed by : [address] [address] Alk phos 96 40 - 130 Units/L FRAN Comment:Testing performed by : [address] [address] ALT 16 7 - 45 Units/L FRAN Comment:Testing performed by : [address] [address] AST 19 10 - 45 Units/L FRAN Comment:Testing performed by : [address] [address] Blood 02/26/2023 9:21 PM CDT 02/26/2023 9:35 PM CDT us Lakisha LEYVA LAB BLOOD ORDERABLES Final Resul t FRAN [address] [facility] Department of Laboratories [place], [place] [id number] * (ABNORMAL) CBC with auto differential (02/26/2023 9:21 PM CDT) [facility] Signature WBC 12.0(H) 3.8 - 9.9 K/cumm FRAN Comment:Testing performed by : [address], [address] Hgb 13.8 11.9 - 15.5 g/dL FRAN Comment:Testing performed by : [address], [address] Hct 42.2 35.6 - 45.5 % FRAN Comment:Testing performed by : [address], [address] Plt 408(H) 150 - 400 K/cumm FRAN Comment:Testing performed by : [address], [address] MPV 8.4(L) 9.1 - 12.3 fL FRAN Comment:Testing performed by : [address], [address] RBC 4.93 3.90 - 5.20 M/cumm FRAN Comment:Testing performed by : [address] [address] MCV 85.6 81.3 - 96.4 fL FRAN Comment:Testing performed by : [address], [address] MCH 28.0 27.1 - 33.3 pg FRAN Comment:Testing performed by : [address], [address] MCHC 32.7 32.3 - 35.7 g/dL FRAN Comment:Testing performed by : [address], [address] RDW CV 12.6 11.1 - 14.9 % FRAN Comment:Testing performed by : [address], [address] RDW SD 39.0 35.7 - 48.1 fL FRAN Comment:Testing performed by : [address], [address] NRBC abs 0.00 0.00 - 0.01 K/cumm FRAN Comment:Testing performed by : [facility], [address] [place] [address]., [address] Blood (Blood, Venous) 02/26/2023 9:21 PM CDT 02/26/2023 9:35 PM CDT us Lakisha LEYVA LAB BLOOD ORDERABLES Final Resul t FRAN [address] [facility] Department [place] [address] documented in this encounter Visit [...] 02/26/2023 documented in this encounter Care Teams Lime Hide Inspector Relationship Specialty Start Date End Date Lorie Vanessa NP [address] [place] [address] PCP - General Family Practice 05/29/22 No, Physician 06/08/21 documented as of this encounter
--- OUTSIDE RECORDS SUMMARY | 2024-06-06 05:24 | XMS_ITS | Encounter Summary ---
Author Organization [facility] Healthcare Address [address] [place] [address] Care Team Providers Care Chip Drier Name Role Phone No, Physician Unavailable Lorie Vanessa NP Primary Care Provider [phone] Encounter Details Date Type Department Care Team (Latest Contact Info) Description 03/27/2023 9:15 AM CDT - 03/27/2023 11:59 PM CDT Hospital Encounter [facility]iology [address] [facility] [address] [place] [id number] Closed displaced fracture of fifth metatarsal bone [...] on file Legal Sex Female 6:55 PM KETTLE HAND Gender Identity Female 06/06/2022 7:40 AM KETTLE HAND Sexual Orientation Not on file documented as [...] by: Philip Rosenbaum M.D. Marco Antonio Reynoso FIBERGLASS ROVING WINDER IMG XR PROCEDURES Final Re sult documented in this encounter Visit Diagnoses Diagnosis Closed displaced fracture of fifth metatarsal bone of right foot, initial encounter documented in this encounter Care Teams Chip Drier Relationship Specialty Start Date End Date Lorie Vanessa NP [address] [place] [address] PCP - General Family Practice 05/29/22 No, Physician 06/08/21 documented as of this encounter
--- OUTSIDE RECORDS SUMMARY | 2024-06-06 05:24 | XMS_ITS | Encounter Summary ---
Author Organization [facility] Address [address] [place] [address] Phone Care Team Providers Care Inside Sales Advisor Name Role Phone No, Physician Unavailable Lorie Vanessa NP Primary Care Provider [phone] Encounter Details Date Type Department Care Team (Late st Contact Info) Description 04/24/2023 Orders Only [facility] Allergy and Immunology [address] [address] [place] [address] Jackson Dodd MD PhD [address] 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 Gender Identity Female 06/06/2022 7:40 AM COMPUTER SCIENCE TEACHER Sexual Orientation Not on file documented as [...] respiratory infection) Plan: CT Chest WO Contrast UTER SCIENCE TEACHER documented in this encounter Plan of Treatment Not on file documented as of this encounter Visit Diagnoses Diagnosis Chronic cough- Primary Cough Shortness of breath Recurrent URI (upper respiratory infection) documented in this encounter Care Teams Inside Sales Advisor Relationship Specialty Start Date End Date Lorie Vanessa NP [address] [place] [address] PCP - General Family Practice 05/29/22 No, Physician 06/08/21 documented as of this encounter
--- OUTSIDE RECORDS SUMMARY | 2024-06-06 05:24 | XMS_ITS | Encounter Summary ---
Author Organization [facility] Healthcare Address [address] [place] [address] Care Team Providers Care Roaster Supervisor Name Role Phone No, Physician Unavailable Lorie Vanessa NP Primary Care Provider [phone] Reason for Referral * MRI/CAT/PET Scan (Routine) - Closed Specialty Diagnoses / Procedures Referred By Contac t Referred To Contact Radiology Diagnoses Sprain of ligaments of lumbar spine, initial encounter Procedures MRI Lumbar Spine WO Contrast Justin Grover NP [address] [place] [address] Phone: tel: fax: [facility] [address] [place] [address] Referral ID Status Reason Start Date Expiration Date Visits Re quested Visits Authorized [id number] Closed 1 1 Reason for Visit * MRI/CAT/PET Scan (Routine) - Closed Specialty Diagnoses / Procedures Referred By Contac t Referred To Contact Radiology Diagnoses Sprain of ligaments of lumbar spine, initial encounter Procedures MRI Lumbar Spine WO Contrast Justin Grover NP [address] [place] [address] Phone: tel: fax: [address] [address] Referral ID Status Reason Start Date Expiration Date Visits Re quested Visits Authorized [id number] Closed 1 1 Encounter Details Date Type Department Care Team (Latest Contact Info) Description 03/04/2023 3:18 PM CDT - 03/04/2023 11:59 PM CDT Hospital Encounter [facility] - Imaging [address] [place] [address] Sprain of ligaments of lumbar [...] file Legal Sex Female 6:55 PM MANAGER LSW Gender Identity Female 06/06/2022 7:40 AM MANAGER LSW Sexual Orientation Not on file documented as [...] encounter documented in this encounter Care Teams Roaster Supervisor Relationship Specialty Start Date End Date Lorie Vanessa NP [address] [place] [address] PCP - General Family Practice 05/29/22 No, Physician 06/08/21 documented as of this encounter
--- OUTSIDE RECORDS SUMMARY | 2024-06-06 05:24 | XMS_ITS | Encounter Summary ---
Author Organization [facility] Healthcare Address [address] [place] [address] Care Team Providers Care Disease Intervention Specialist Name Role Phone No, Physician Unavailable Lorie Vanessa NP Primary Care Provider [phone] Reason for Visit * Reason Onset Date Comments Discuss Test Results 03/20/2023 Encounter Details Date Type Department Care Team (Late st Contact Info) Description 03/20/2023 Telephone [facility] Gastroenterology at [address] [address] Cj Thomas MD [address] [place] [address] Discuss Test Results Social History Tobacco [...] on file Legal Sex Female 6:55 PM SERVICE 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
--- OUTSIDE RECORDS SUMMARY | 2024-06-06 05:24 | XMS_ITS | Encounter Summary ---
Author Organization [facility] Address [address] [place] [address] Phone Care Team Providers Care Mud Mixer Helper Name Role Phone No, Physician Unavailable Lorie Vanessa NP Primary Care Provider [phone] Reason for Visit * Reason Comments Pain Encounter Details Date Type Department Care Team (Late st Contact Info) Description 03/06/2023 8:45 AM CDT Office Visit [facility] Orthopaedic Surgery [address] [facility] [address] [place] [address] [place] [address] [place] [address] Closed displaced fracture of fifth metatarsal bone [...] on file Legal Sex Female 6:55 PM 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 Marco Antonio Reynoso, RN,BSN, MSN, FUMIGATOR AND STERILIZER, WIRE WINDER-C, in collaborative practice with Dr. George Elizondo and Dr. Dionisio Walter Nurse Practitioner, Foot and Ankle Service [facility] Orthopedics. This is TONY Thomas dictating using qcue Direct Software Program. Warehouse Worker 2Nd Shift variances may occur. Cosigned by Dionisio Walter [...] Normal Skin Condition: Clean, dry, and intact [place]/Sutures Removed: No Pin Pulled: No Cast Removed: [...] Procedure Name Priority Date/Time Associated Diagnosis Comments HI CAST SUP SHRT LEG FIBERGLASS Routine 03/06/2023 9:56 AM CDT Closed displaced fracture of fifth metatarsal bone of right foot, initial encounter HI APPLICATION SHORT LEG CAST WALKING/AMBULATORY Routine 03/06/2023 9:56 AM CDT Closed displaced fracture of fifth metatarsal bone of right foot, initial encounter documented in this encounter Results * HI APPLICATION SHORT LEG CAST WALKING/AMBULATORY, HI CAST SUP SHRT LEG FIBERGLASS (03/06/2023 9:56 AM CDT) Narrative Varun Saunders - 03/06/2023 9:56 AM CDT Varun Saunders ? 03/06/2023 ??9:57 AM Ortho Casting/Splinting Documentation Date/Time: 03/06/2023 9:56 AM Performed by: Varun Saunders Authorized by: Marco Antonio Reynoso, RESEARCH PROJECT COORDINATOR ?? Sensation: ??Normal Skin Condition: ??Clean, dry, [...] by: Cindy Josue MD Marco Antonio Reynoso RESEARCH PROJECT COORDINATOR IMG XR PROCEDURES Final Re sult documented in this encounter Visit Diagnoses Diagnosis Closed displaced fracture of fifth metatarsal bone of right foot, initial encounter- Primary Closed displaced fracture of fifth metatarsal bone of right foot, initial encounter documented in this encounter Care Teams Mud Mixer Helper Relationship Specialty Start Date End Date Lorie Vanessa NP [address] [place] [address] PCP - General Family Practice 05/29/22 No, Physician 06/08/21 documented as of this encounter
--- OUTSIDE RECORDS SUMMARY | 2024-06-06 05:24 | XMS_ITS | Encounter Summary ---
Author Organization [facility] Address [address] [facility] [address] [place] [address] Care Team Providers Care Allergist/Immunologist Name Role Phone No, Physician Unavailable Lorie Vanessa NP Primary Care Provider [phone] Encounter Details Date Type Department Care Team (Late st Contact Info) Description 02/18/2023 Telephone [facility] Primary Care at [place] [address] [facility] [address] [place] [address] Lorie Vanessa NP [address] [place] [address] Social History Tobacco Use Types Packs/Day [...] file Legal Sex Female 6:55 PM MEDIA PRODUCTION MANAGER Gender Identity Female 06/06/2022 7:40 AM MEDIA PRODUCTION MANAGER Sexual Orientation Not on file documented [...] documented as of this encounter Care Teams Allergist/Immunologist Relationship Specialty Start Date End Date Lorie Vanessa NP [address] [place] [address] PCP - General Family Practice 05/29/22 No, Physician 06/08/21 documented as of this encounter
--- OUTSIDE RECORDS SUMMARY | 2024-06-06 05:24 | XMS_ITS | Encounter Summary ---
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
--- OUTSIDE RECORDS SUMMARY | 2024-06-06 05:24 | XMS_ITS | Encounter Summary ---
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
--- OUTSIDE RECORDS SUMMARY | 2024-06-06 05:24 | XMS_ITS | Encounter Summary ---
Author Organization [facility] of [facility] Address [address] [place] [address] Phone Care Team Providers Care Sound Person Name Role Phone No, Physician Unavailable Lorie Vanessa NP Primary Care Provider [phone] Reason for Visit * Reason Comments Follow-up Encounter Details Date Type Department Care Team (Late st Contact Info) Description 03/27/2023 9:45 AM CDT Office Visit 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 She can continue to ice. We [...] Walter today. Marco Antonio Reynoso, RN,BSN, MSN, CONTAMINATION CONSULTANT, FISCAL ASSISTANT-C, in collaborative practice with Dr. George Elizondo and Dr. Dionisio Walter Nurse Practitioner, Foot and Ankle Service [facility] Orthopedics. This is TONY Thomas dictating using [employer] Software Program. Manager Business Planning variances may occur. * Varun Saunders - 03/27/2023 9:45 AM CDTAssociated Order(s): Ortho Casting/Splinting Documentation Post-Procedure Diagnose(s): Closed displaced fracture of fifth metatarsal bone of right foot, initial encounter Ortho Casting/Splinting Documentation Date/Time: 03/27/2023 12:46 PM Performed by: Varun Saunders Authorized by: Marco Antonio Reynoso NP Sensation: Normal Skin Condition: Clean, dry, and intact [place]/Sutures Removed: No Pin Pulled: No Cast Removed: [...] Philip Rosenbaum M.D. us Marco Antonio Reynoso ENTHONE SOLDER STRIPPER IMG XR PROCEDURES Final Re sult documented in this encounter Visit Diagnoses Diagnosis Closed displaced fracture of fifth metatarsal bone of right foot, initial encounter- Primary Closed displaced fracture of fifth metatarsal bone of right foot, initial encounter documented in this encounter Care Teams Sound Person Relationship Specialty Start Date End Date Lorie Vanessa NP [address] [place] [address] PCP - General Family Practice 05/29/22 No, Physician 06/08/21 documented as of this encounter
--- OUTSIDE RECORDS SUMMARY | 2024-06-06 05:24 | XMS_ITS | Encounter Summary ---
Author Organization [facility] Healthcare Address [address] [place] [address] Care Team Providers Care C Programmer Name Role Phone No, Physician Unavailable Lorie Vnaessa NP Primary Care Provider [phone] Encounter Details Date Type Department Care Team (Late st Contact Info) Description 02/25/2023 Patient Self-Triage [facility] HealthCare/ Physicians [address] [place] [address] Myckyet, Generic Provider [address] [place] [address] Social History Tobacco Use Types Packs/Day [...] on file Legal Sex Female 6:55 PM YARD HAND Gender Identity Female 06/06/2022 7:40 AM YARD HAND Sexual Orientation Not on file documented as of this encounter Plan of Treatment Not on file documented as of this encounter Visit Diagnoses Not on filedocumented in this encounter Care Teams C Programmer Relationship Specialty Start Date End Date Lorie Vanessa NP [address] [place] [address] PCP - General Family Practice 05/29/22 No, Physician 06/08/21 documented as of this encounter
--- OUTSIDE RECORDS SUMMARY | 2024-06-06 05:24 | XMS_ITS | Encounter Summary ---
Author Organization [facility] Healthcare Address [address] [place] [address] Care Team Providers Care Patternmaker Metal Bench Name Role Phone No, Physician Unavailable Lorie Vanessa NP Primary Care Provider [phone] Reason for Visit * Reason Comments PT Treatment * Consultation (Routine) - Closed Specialty Diagnoses / Procedures Referred By Cyn burnett Referred To Contact Physical Therapy Diagnoses Left lumbar pain Justin Grover NP [address] [place] [address] Phone: tel: fax: [address] [address] Referral ID Status Reason Start Date Expiration Date V isits Requested Visits Authorized [id number] Closed Evaluate and Treat 02/11/2023 03/12/2024 18 Encounter Details Date Type Department Care Team (Late st Contact Info) Description 03/28/2023 2:00 PM CDT Therapy [facility] Physical Therapy [address] [place] [address] Jodi Gan, GRACIELA Left lumbar pain [...] on file Legal Sex Female 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 Wearing a boot furniture upholstery mechanic, but is allowed to remove with supine exercises. Followed back up with [facility] (02/11/23) and was referred back to PT [...] each, ANA x15 each, ANA Bridging with honduran ball X9--discontinued due to reports of increased pain Prone alternating hip extension with lower abdominal contraction Seated Nerve Glides Seated TA with alternating LE march, small ROM Seated rows Blue Panamanian ball, 2x12, Green theraband Blue Panamanian ball, 2x12, Green theraband Blue Panamanian ball, 2x12, Green theraband Seated latissimus dorsi pull downs Blue Panamanian ball, 2x12 Green theraband Blue Panamanian ball, 2x12, Green theraband Blue Panamanian ball, 2x12, Green theraband Pallof press X10 each, ANA, Green theraband 2x12 each, ANA, Green theraband, seated on Panamanian ball Standing frontal plane leaning Stride stance [...] She demonstrates good core stability with seated Panamanian ball theraband exercises this visit. Patient Response [...] Code Calculator Minutes for Ther Ex/Ther Procedure (69547):: 31 minutes Minutes for Neuro Re-Ed (77712): : 8 minutes Timed Code Treatment Minutes:: 39 minutes Total Treatment Time: 39 documented in this encounter Plan of Treatment Not on file documented as of this encounter Visit Diagnoses Diagnosis Left lumbar pain- Primary Lumbago Sprain of ligaments of lumbar spine, initial encounter documented in this encounter Care Teams Patternmaker Metal Bench Relationship Specialty Start Date End Date Lorie Vanessa NP [address] [place] [address] PCP - General Family Practice 05/29/22 No, Physician 06/08/21 documented as of this encounter
--- OUTSIDE RECORDS SUMMARY | 2024-06-06 05:24 | XMS_ITS | Encounter Summary ---
Author Organization [facility] Healthcare Address [address] [place] [address] Care Team Providers Care Supervisor Speech Name Role Phone No, Physician Unavailable Lorie Vanessa NP Primary Care Provider [phone] Reason for Visit * Reason Comments PT Progress Note * Consultation (Routine) - Closed Specialty Diagnoses / Procedures Referred By Cyn burnett Referred To Contact Physical Therapy Diagnoses Left lumbar pain Justin Grover NP [address] [place] [address] Phone: tel: fax: [address] [address] Referral ID Status Reason Start Date Expiration Date V isits Requested Visits Authorized [id number] Closed Evaluate and Treat 02/11/2023 03/12/2024 Encounter Details Date Type Department Care Team (Late st Contact Info) Description 02/19/2023 7:30 AM CDT Therapy [facility] Physical Therapy [address] [place] [address] Poonam Thompson, DPAndrew Left lumbar pain [...] on file 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 Physical Therapy Progress Note 02/19/2023 Emily Guerrier 1995 27 y.o. female Bhakti Bryson MSN, HOSPICE NURSE PRACTITIONER-DC and Justin Grover INFORMATION SECURITY ARCHITECT, AIR PRESS OPERATOR [address] [place] [address] Case Adjustor: Sammy Doyle ICD-9-CM ICD-10-CM 1. [...] and was sent by occupational health to [facility] on 01/21/23. She was instructed by the [...] treatmentfor this as well. Wearing a boot multimedia artist, but is allowed to remove with supine exercises. Since her last visit of PT and since fracturing her foot, has tried to do some exercises here and there as able. Recently followed back up with [facility] (02/11/23) and was referred back [...] Pt states she's able to sit for [id number] minutes without shifting around. She tolerates everything [...] of this time. She returns to referred [facility]ALTH [facility]ARE COACH tomorrow, 02/20/23. STG to be met by [...] complaints.-- ONGOING Plan: Pt returns to referred HEALTH CARE COACH tomorrow, 02/19/23. Please advise. Poonam Thompson DPT Time-Based Code Calculator Minutes for Ther Ex/Ther Procedure (10204):: 38 minutes Minutes for Neuro Re-Ed (97559): : 2 minutes Timed Code Treatment Minutes:: 40 minutes Total Treatment Time: 40 PT Daily Treatment Note 02/19/2023 Emily Guerrier 1995 ICD-9-CM ICD-10-CM 1. Left lumbar pain 724.2 M54.50 2. Sprain of ligaments of lumbar spine, initial encounter 847.2 S33.5XXA Precautions: None ADJUSTOR: SAMMY DOYLE PHONE NUMBER: [phone] CLAIM #: [id number] DATE OF INJURY: 01/20/2023 History: working on 01/20/23 at [facility] [...] at the base. Wearing a boot multimedia artist, but is allowed to remove with supine exercises. Followed back up with [facility] (02/11/23) and was referred back [...] Bilateral Yellow 2x10 Reps Bilateral Bridging with kenyan ball 2x10 2x10. Wincing and grimacing end [...] complaints.-- ONGOING Plan: Pt returns to referring HEALTH CARE COACH tomorrow, 02/20/23. Await plan from HEALTH CARE COACH. Poonam Thompson DPT Time Calculator Time-Based Code Calculator Minutes for Ther Ex/Ther Procedure (50259):: 38 minutes Minutes for Neuro Re-Ed (87101): : 2 minutes Timed Code Treatment Minutes:: [...] 1 documented in this encounter Care Teams Supervisor Speech Relationship Specialty Start Date End Date Lorie Vanessa NP [address] [place] [address] PCP - General Family Practice 05/29/22 No, Physician 06/08/21 documented as of this encounter
--- OUTSIDE RECORDS SUMMARY | 2024-06-06 05:24 | XMS_ITS | Encounter Summary ---
Author Organization [facility] Healthcare Address [address] [place] [address] Care Team Providers Care E Commerce Solution Architect Name Role Phone No, Physician Unavailable Lorie Vanessa NP Primary Care Provider [phone] Reason for Visit * Diagnostic Imaging (Routine) - Closed Specialty Diagnoses / Procedures Referred By Cyn burnett Referred To Contact Diagnoses Nausea Procedures NM Gastric Emptying Cj Thomas MD [address] [place] [address] Phone: tel: fax: [address] [address] Referral ID Status Reason Start Date Expiration Date Visits Re quested Visits Authorized [id number] Closed 03/07/2023 04/05/2024 5 5 Encounter Details Date Type Department Care Team (Latest Contact Info) Description 03/19/2023 10:19 AM CDT - 03/19/2023 11:59 PM CDT Hospital Encounter [facility] Nuclear Medicine [address] [place] [address] Discharge Disposition: Discharge to home or [...] D: ??03/19/2023 3:08 PM T: Report ID: [id number] Reading Location: ??[id number] Procedure Note Zaheer Berry Jr., MD - [...] by Zaheer Berry M.D. T: Report ID: [id number] Reading Location: [place] [address] Cj William [facility] Final Result documented in this encounter Visit Diagnoses Not on filedocumented in this encounter Care Teams E Commerce Solution Architect Relationship Specialty Start Date End Date Lorie Vanessa NP [address] [place] [address] PCP - General Family Practice 05/29/22 No, Physician 06/08/21 documented as of this encounter
--- OUTSIDE RECORDS SUMMARY | 2024-06-06 05:24 | XMS_ITS | Encounter Summary ---
Author Organization [facility] Healthcare Address [address] [place] [address] Care Team Providers Care Rug Inspector Name Role Phone No, Physician Unavailable Lorie Vanessa NP Primary Care Provider Reason for Visit * Diagnostic Imaging (Routine) - Closed Specialty Diagnoses / Procedures Referred By Cyn burnett Referred To Contact Diagnoses Nausea Procedures NM Gastric Emptying Cj Thomas MD [address] [place] [address] Phone: tel: fax: [address] [phone] Referral ID Status Reason Start Date Expiration Date Visits Re quested Visits Authorized [id number] Closed 03/07/2023 04/05/2024 5 5 Encounter Details Date Type Department Care Team (Latest Contact Info) Description 03/19/2023 10:19 AM CDT - 03/19/2023 11:59 PM CDT Hospital Encounter [facility] Nuclear Medicine [address] [place] [address] Discharge Disposition: Discharge to home or [...] on file 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 T: Report ID: [id number] Reading Location: [place] [address] Cj William [facility] Final Result documented in this encounter Visit Diagnoses Not on filedocumented in this encounter Care Teams Rug Inspector Relationship Specialty Start Date End Date Lorie Vanessa NP [address] [place] [address] PCP - General Family Practice 05/29/22 No, Physician 06/08/21 documented as of this encounter
--- OUTSIDE RECORDS SUMMARY | 2024-06-06 05:24 | XMS_ITS | Encounter Summary ---
Author Organization [facility] Healthcare Address [address] [place] [address] Care Team Providers Care Candy Catcher Name Role Phone No, Physician Unavailable Lorie Vanessa NP Primary Care Provider [phone] Reason for Visit * Reason Comments PT Treatment * Consultation (Routine) - Closed Specialty Diagnoses / Procedures Referred By Cyn burnett Referred To Contact Physical Therapy Diagnoses Left lumbar pain Justin Grover NP [address] [place] [address] Phone: tel: fax: [address] [phone] Referral ID Status Reason Start Date Expiration Date V isits Requested Visits Authorized [id number] Closed Evaluate and Treat 02/11/2023 03/12/2024 18 Encounter Details Date Type Department Care Team (Late st Contact Info) Description 02/18/2023 3:15 PM CDT Therapy [facility] Physical Therapy [address] [place] [phone] Milton Love, PT Left lumbar pain [...] on file Legal Sex Female 6:55 PM PAINT 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 Left lumbar pain 724.2 M54.50 2. 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 Wearing a boot multimedia assistant, but is allowed to remove with supine exercises. Followed back up with [facility] (02/11/23) and was referred back to [...] ANA Yellow 2x10 Reps Bilateral Bridging with danish ball 2x10 2x10. Wincing and grimacing end [...] Code Calculator Minutes for Ther Ex/Ther Procedure (52557):: 35 minutes Timed Code Treatment Minutes:: 35 minutes Total Treatment Time: 40 documented in this encounter Plan of Treatment Not on file documented as of this encounter Visit Diagnoses Diagnosis Left lumbar pain- Primary Lumbago Sprain of ligaments of lumbar spine, initial encounter documented in this encounter Care Teams Candy Catcher Relationship Specialty Start Date End Date Lorie Vanessa NP [address] [place] [address] PCP - General Family Practice 05/29/22 No, Physician 06/08/21 documented as of this encounter
--- OUTSIDE RECORDS SUMMARY | 2024-06-06 05:24 | XMS_ITS | Encounter Summary ---
Author Organization [facility] Address [address] [place] [address] Phone Care Team Providers Care Game Programer Name Role Phone No, Physician Unavailable Lorie Vanessa NP Primary Care Provider [phone] Reason for Referral * Procedure (Routine) - Closed Specialty Diagnoses / Procedures Referred By Cyn t Referred To Contact Pulmonology Diagnoses Chronic cough Procedures Pulmonary Function Test -[facility] Adult PFT Lab- [facility]; Spirometry with Bronchodilator, Lung Volumes; Pleth with Airway Resistance Jackson Dodd MD PhD [address] [place] [address] [address] [place] [address] Phone: tel: fax: Referral ID Status Reason Start Date Expiration Date Visits Re quested Visits Authorized [id number] Closed 03/04/2023 04/02/2024 1 1 Encounter Details Date Type Department Care Team (Late st Contact Info) Description 03/04/[address] 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 However, the [facility] defines hypoxemia as a PO2 <55 or a %HbO2 <89. Narrative 03/08/2023 1:12 PM CDT PFT performed at:->[facility] Adult PFT Lab- [facility] Procedure:->Spirometry with Bronchodilator Procedure:->Lung Volumes Lung [...] Cough documented in this encounter Care Teams Game Programer Relationship Specialty Start Date End Date Lorie Vanessa NP [address] [place] [address] PCP - General Family Practice 05/29/22 No, Physician 06/08/21 documented as of this encounter
--- OUTSIDE RECORDS SUMMARY | 2024-06-06 05:24 | XMS_ITS | Encounter Summary ---
Author Organization [facility] Healthcare Address [address] [place] [address] Care Team Providers Care Insurance Account Representative Name Role Phone No, Physician Unavailable Lorie Vanessa NP Primary Care Provider [phone] Encounter Details Date Type Department Care Team (Late st Contact Info) Description 04/08/2023 Patient Self-Triage [facility] HealthCare/ Physicians [address] [place] [address] Mychart, Generic Provider [address] [place] [address] Social History Tobacco Use Types Packs/Day [...] file Legal Sex Female 6:55 PM STAFF AUDITOR Gender Identity Female 06/06/2022 7:40 AM STAFF AUDITOR Sexual Orientation Not on file documented as of this encounter Plan of Treatment Not on file documented as of this encounter Visit Diagnoses Not on filedocumented in this encounter Care Teams Insurance Account Representative Relationship Specialty Start Date End Date Lorie Vanessa NP [address] [place] [address] PCP - General Family Practice 05/29/22 No, Physician 06/08/21 documented as of this encounter
--- OUTSIDE RECORDS SUMMARY | 2024-06-06 05:24 | XMS_ITS | Encounter Summary ---
Author Organization [facility] Healthcare Address [address] [place] [address] Care Team Providers Care Stain Applicator Name Role Phone No, Physician Unavailable Lorie Vanessa NP Primary Care Provider [phone] Reason for Referral * Diagnostic Imaging (Routine) - Closed Specialty Diagnoses / Procedures Referred By Cyn burnett Referred To Contact Diagnoses Nausea Procedures NM Gastric Emptying Cj Thomas MD [address] [place] [address] DR MURRELL [address] [place] [address] Phone: tel: fax: [address] [phone] Referral ID Status Reason Start Date Expiration Date Visits Re quested Visits Authorized [id number] Closed 03/07/2023 04/05/2024 5 5 Reason for Visit * Diagnostic Imaging (Routine) - Closed Specialty Diagnoses / Procedures Referred By Cyn burnett Referred To Contact Diagnoses Nausea Procedures NM Gastric Emptying Cj Thomas MD [address] [place] [address] DR MURRELL [address] [place] [address] Phone: tel: fax: [address] [phone] Referral ID Status Reason Start Date Expiration Date Visits Re quested Visits Authorized [id number] Closed 03/07/2023 04/05/2024 5 5 Encounter Details Date Type Department Care Team (Latest Contact Info) Description 03/19/2023 10:17 AM CDT - 03/19/2023 11:59 PM CDT Hospital Encounter [facility] Nuclear Medicine [address] [place] [address] Nausea Discharge Disposition: Discharge to home or [...] on file Legal Sex Female 6:55 PM CONVEYOR 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 T: Report ID: [id number] Reading Location: [id number] Cj William SALVADOR IMG [place] PROCEDURES Final [...] 1 documented in this encounter Care Teams Stain Applicator Relationship Specialty Start Date End Date Lorie Vanessa NP [address] [place] [address] PCP - General Family Practice 05/29/22 No, Physician 06/08/21 documented as of this encounter
--- OUTSIDE RECORDS SUMMARY | 2024-06-06 05:24 | XMS_ITS | Encounter Summary ---
Author Organization [facility] Healthcare Address [address] [place] [address] Care Team Providers Care Manager Of Manufacturing Name Role Phone No, Physician Unavailable Lorie Vanessa NP Primary Care Provider [phone] Reason for Visit * Diagnostic Imaging (Routine) - Closed Specialty Diagnoses / Procedures Referred By Cyn burnett Referred To Contact Diagnoses Nausea Procedures NM Gastric Emptying Cj Thomas MD [address] [place] [address] Phone: tel: fax: [address] [phone] Referral ID Status Reason Start Date Expiration Date Visits Re quested Visits Authorized [id number] Closed 03/07/2023 04/05/2024 5 5 Encounter Details Date Type Department Care Team (Latest Contact Info) Description 03/19/2023 10:18 AM CDT - 03/19/2023 11:59 PM CDT Hospital Encounter [facility] Nuclear Medicine [address] [place] [address] Discharge Disposition: Discharge to home or [...] on file Legal Sex Female 6:55 PM WALLPAPERER Gender Identity Female 06/06/2022 7:40 AM WALLPAPERER Sexual Orientation Not on file documented as [...] D: ??03/19/2023 3:08 PM T: Report ID: [id number] Reading Location: ??[id number] Procedure Note Zaheer Berry Jr., MD - [...] by Zaheer Berry M.D. T: Report ID: [id number] Reading Location: [place] [address] Cj William SAL[facility]ADOR [facility] PROCEDURES Final Result documented in this encounter Visit Diagnoses Not on filedocumented in this encounter Care Teams Manager Of Manufacturing Relationship Specialty Start Date End Date Lorie Vanessa NP [address] [place] [address] PCP - General Family Practice 05/29/22 No, Physician 06/08/21 documented as of this encounter
--- OUTSIDE RECORDS SUMMARY | 2024-06-06 05:24 | XMS_ITS | Encounter Summary ---
Author Organization [facility] Healthcare Address [address] [place] [address] Care Team Providers Care Clerk Stenographer Name Role Phone No, Physician Unavailable Lorie Vanessa NP Primary Care Provider [phone] Reason for Visit * Reason Comments PT Progress Note PT Treatment PT Discharge * Consultation (Routine) - Closed Specialty Diagnoses / Procedures Referred By Cyn burnett Referred To Contact Physical Therapy Diagnoses Left lumbar pain Justin Grover NP [address] [place] [address] Phone: tel: fax: [address] [phone] Referral ID Status Reason Start Date Expiration Date V isits Requested Visits Authorized [id number] Closed Evaluate and Treat 02/11/2023 03/12/2024 18 Encounter Details Date Type Department Care Team (Late st Contact Info) Description 03/29/2023 5:15 PM CDT Therapy [facility] Physical Therapy [address] [place] [phone] Jodi Gan, PT Left lumbar pain [...] on file Legal Sex Female 6:55 PM TAMPER OPERATOR Gender Identity Female 06/06/2022 7:40 AM TAMPER OPERATOR Sexual Orientation Not on file documented [...] agrees to discharge. Jodi Gan, PT 03/29/2023 mEily Guerrier 1995 27 y.o. female Bhakti Bryson MSN, BROADCASTING EQUIPMENT MECHANIC-DC and Justin Grover RADIATION ONCOLOGY THERAPIST, ENTRY ENGINEER [address] [place] [address] Case Adjustor: Sammy Doyle ICD-9-CM ICD-10-CM 1. 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 on 01/21/23. She was instructed by the [...] this as well. Wearing a boot multimedia services manager, but is allowed to remove with supine exercises. Since her last visit of PT and since fracturing her foot, has tried to do some exercises here and there as able. 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 Emily Guerrierhas met 1/3 intermediate card tender goals and 2/4 short term goals [...] complaints.-- goal met Plan: Patient returns to LIGHTING TECHNICIAN on 04/01/2023. Please advise Jodi Gan, PT Time-Based Code Calculator Minutes for Ther Ex/Ther Procedure (47552):: 38 minutes Timed Code Treatment Minutes:: 38 minutes Total Treatment Time: 38 PT Daily Treatment Note 03/29/2023 Emily Guerrier 1995 ICD-9-CM ICD-10-CM 1. Left lumbar pain 724.2 M54.50 2. 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 Wearing a boot multimedia services manager, but is allowed to remove with supine [...] LE march, small ROM Seated rows Blue [place] Citizen ball, 2x12, Green theraband Blue [place] Citizen ball, 2x12, Green theraband Blue [place] Citizen ball, 2x12, Green theraband Blue [place] Citizen ball, 2x12, Green theraband Seated latissimus dorsi pull downs Blue [place] Citizen ball, 2x12 Green theraband Blue [place] Citizen ball, 2x12, Green theraband Blue [place] Citizen ball, 2x12, Green theraband Blue [place] Citizen ball, 2x12, Green theraband Pallof press X10 each, ANA, Green theraband 2x12 each, ANA, Green theraband, seated on [place] Citizen ball 2x12 each, ANA, Green theraband, seated on [place] Citizen ball Standing frontal plane leaning Stride stance [...] complaints.-- goal met Plan: Patient returns to LIGHTING TECHNICIAN on 04/01/2023. Please advise Jodi Gan PT Time Calculator Time-Based Code Calculator Minutes for Ther Ex/Ther Procedure (52812):: 38 minutes Timed Code Treatment Minutes:: 38 minutes Total Treatment Time: 38 ER OPERATOR ER OPERATOR documented in this encounter Plan of Treatment Not on file documented as of this encounter Visit Diagnoses Diagnosis Left lumbar pain- Primary Lumbago Sprain of ligaments of lumbar spine, initial encounter documented in this encounter Care Teams Clerk Stenographer Relationship Specialty Start Date End Date Lorie Vanessa NP [address] [place] [address] PCP - General Family Practice 05/29/22 No, Physician 06/08/21 documented as of this encounter
--- OUTSIDE RECORDS SUMMARY | 2024-06-06 05:24 | XMS_ITS | Encounter Summary ---
Author Organization [facility] Healthcare Address [address] [place] [address] Care Team Providers Care Concrete Buster Operator Name Role Phone No, Physician Unavailable Lorie Vanessa NP Primary Care Provider [phone] Reason for Visit * Reason Comments Diarrhea Entered automaticall y based on patient selection in RECUPYL. Encounter Details Date Type Department Care Team (Late st Contact Info) Description 04/14/2023 1:05 AM JUNIOR AUTOMATION ENGINEER E-Visit [facility] Medical Group Virtual Care [address] [place] [phone] Evy Ansari NP [address] [facility] [address] [place] [address] E-Visit for Diarrhea Social History Tobacco Use [...] file Legal Sex Female 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 AUTOMATION ENGINEER Gender Identity Female 06/06/2022 7:40 AM JUNIOR AUTOMATION ENGINEER Sexual Orientation Not on file documented as of this encounter Miscellaneous Notes * E-Visit Note - Evy Alejandro NP - 04/14/2023 6:21 AM JUNIOR AUTOMATION ENGINEER Emily Guerrier 04/14/2023 E-Visit Submission Subjective/Objective: Emily [...] prescribed, if applicable, as well as any [id number] remedies. She was given instructions regarding follow up and timeframe if symptoms worsen or don???t improve. These instructions were included in the RECUPYL message reply tothe patient. Patient Instructions were included in the message reply to patient. My total encounter time on 04/14/2023 was 5 minutes which was spent in the activities documented inthe note. Evy Alejandro NP OR AUTOMATION ENGINEER documented in this encounter Plan of Treatment Not on file documented as of this encounter Visit Diagnoses Diagnosis Viral gastroenteritis- Primary Intestinal infection due to other organism, NEC documented in this encounter Care Teams Concrete Buster Operator Relationship Specialty Start Date End Date Lorie Vanessa NP [address] [place] [address] PCP - General Family Practice 05/29/22 No, Physician 06/08/21 documented as of this encounter
--- OUTSIDE RECORDS SUMMARY | 2024-06-06 05:24 | XMS_ITS | Encounter Summary ---
Author Organization [facility] Address [address] [place] [address] Phone Care Team Providers Care Lumber Straightener Name Role Phone No, Physician Unavailable Lorie Vanessa NP Primary Care Provider [phone] Encounter Details Date Type Department Care Team (Late st Contact Info) Description 03/01/2023 Orders Only [facility] Allergy and Immunology [address] [facility] [address] [place] [address] Candida Isabel, RN Social History [...] on file Legal Sex Female 6:55 PM MEMORIAL DESIGNER Gender Identity Female 06/06/2022 7:40 AM MEMORIAL DESIGNER Sexual Orientation Not on file documented as of this encounter Progress Notes * Candida Isabel RN - 03/01/2023 3:53 PM CDT Pulmonary Function Test -[facility] Adult PFT [facility]- [facility]; Spirometry with Bronchodilator, Lung Volumes; Pleth with Airway Resistance (Order [id number]) Pt trying to see if she can complete this at another loc. [facility] or [employer], Sent her pt portal message back. documented in this encounter Plan of Treatment Not on file documented as of this encounter Visit Diagnoses Not on filedocumented in this encounter Care Teams Lumber Straightener Relationship Specialty Start Date End Date Lorie Vanessa NP [address] [place] [address] PCP - General Family Practice 05/29/22 No, Physician 06/08/21 documented as of this encounter
--- OUTSIDE RECORDS SUMMARY | 2024-06-06 05:24 | XMS_ITS | Encounter Summary ---
Author Organization [facility] Healthcare Address [address] [place] [address] Care Team Providers Care Wafer Fabricator Name Role Phone No, Physician Unavailable Lorie Vanessa NP Primary Care Provider Reason for Referral * Diagnostic Imaging (Routine) - Closed Specialty Diagnoses / Procedures Referred By Cyn burnett Referred To Contact Diagnoses Nausea Procedures NM Gastric Emptying Cj Thomas MD [address] [place] [address] DR MURRELL [address] [place] [address] Phone: tel: fax: [address] [phone] Referral ID Status Reason Start Date Expiration Date Visits Re quested Visits Authorized [id number] Closed 03/07/2023 04/05/2024 5 5 Encounter Details Date Type Department Care Team (Late st Contact Info) Description 03/07/2023 Orders Only [facility] Medical Group Gastroenterology at [address] [place] [phone] Cj Thomas MD [address] [place] [address] DR MURRELL [address] [place] [address] Nausea (Primary Dx) Social History Tobacco Use [...] on file Legal Sex Female 6:55 PM GRAPHICS PROGRAMMER Gender Identity Female 06/06/2022 7:40 AM GRAPHICS PROGRAMMER Sexual Orientation Not on file documented as [...] D: ??03/19/2023 3:08 PM T: Report ID: [id number] Reading Location: ??[id number] Procedure Note Zaheer Berry Jr., MD - [...] by Zaheer Berry M.D. T: Report ID: [id number] Reading Location: [id number] Cj Thomas MD [facility] PROCEDURES Final Result documented in this encounter Visit Diagnoses Diagnosis Nausea- Primary Nausea alone Nausea Nausea alone documented in this encounter Care Teams Wafer Fabricator Relationship Specialty Start Date End Date Lorie Vanessa NP [address] [place] [address] PCP - General Family Practice 05/29/22 No, Physician 06/08/21 documented as of this encounter
--- OUTSIDE RECORDS SUMMARY | 2024-06-06 05:24 | XMS_ITS | Encounter Summary ---
Author Organization [facility] Healthcare Address [address] [place] [address] Care Team Providers Care Hospital Nurse Name Role Phone No, Physician Unavailable Lorie Vanessa NP Primary Care Provider [phone] Encounter Details Date Type Department Care Team (Latest Contact Info) Description 03/06/2023 8:15 AM CDT - 03/06/2023 11:59 PM CDT Hospital Encounter [id number] [address] [facility] [address] [place] [phone] Closed displaced fracture of fifth metatarsal bone [...] on file Legal Sex Female 6:55 PM STREETCAR STARTER Gender Identity Female 06/06/2022 7:40 AM STREETCAR STARTER Sexual Orientation Not on file documented as [...] by: Cindy Josue MD Marco Antonio Reynoso TYPEWRITER ASSEMBLER IMG XR PROCEDURES Final Re sult documented in this encounter Visit Diagnoses Diagnosis Closed displaced fracture of fifth metatarsal bone of right foot, initial encounter documented in this encounter Care Teams Hospital Nurse Relationship Specialty Start Date End Date Lorie Vanessa NP [address] [place] [address] PCP - General Family Practice 05/29/22 No, Physician 06/08/21 documented as of this encounter
--- OUTSIDE RECORDS SUMMARY | 2024-06-06 05:24 | XMS_ITS | Encounter Summary ---
Author Organization [facility] Healthcare Address [address] [place] [address] Care Team Providers Care Community Service Specialist Name Role Phone No, Physician Unavailable Lorie Vanessa NP Primary Care Provider [phone] Encounter Details Date Type Department Care Team (Late st Contact Info) Description 04/11/2023 Orders Only [facility] Medical Group Gastroenterology at [address] [place] [address] Cj Thomas MD [address] [place] [address] [address] [place] [address] Nausea (Primary Dx) Social History [...] file Legal Sex Female 6:55 PM MANAGER FINANCIAL PLANNING Gender Identity Female 06/06/2022 7:40 AM MANAGER FINANCIAL PLANNING Sexual Orientation Not on file documented as of this encounter Plan of Treatment Not on file documented as of this encounter Visit Diagnoses Diagnosis Nausea- Primary Nausea alone documented in this encounter Care Teams Community Service Specialist Relationship Specialty Start Date End Date Lorie Vanessa NP [address] [place] [address] PCP - General Family Practice 05/29/22 No, Physician 06/08/21 documented as of this encounter
--- OUTSIDE RECORDS SUMMARY | 2024-06-06 05:25 | XMS_ITS | Encounter Summary ---
Author Organization [facility] Healthcare Address [address] [place] [address] Care Team Providers Care Creel Selector Name Role Phone No, Physician Unavailable Lorie Vanessa NP Primary Care Provider [phone] Reason for Visit * Reason Comments PT Initial Eval * Consultation (Routine) - Canceled Specialty Diagnoses / Procedures Referred By Cyn burnett Referred To Contact Physical Therapy Diagnoses Sprain of ligaments of lumbar spine, initial encounter Ella Stephenson MD [address] [place] [address] Phone: tel: fax: [address] [address] Referral ID Status Reason Start Date Expiration Date V isits Requested Visits Authorized [id number] Canceled Evaluate and Treat 01/21/2023 02/20/2024 6 6 Encounter Details Date Type Department Care Team (Late st Contact Info) Description 01/23/2023 3:00 PM CDT Therapy [facility] Physical Therapy [address] [place] [phone] Kuldip Dempsey, PT Sprain of ligaments [...] on file Legal Sex Female 6:55 PM DYNAMIC BALANCER Gender Identity Female 06/06/2022 7:40 AM DYNAMIC BALANCER Sexual Orientation Not on file documented as of this encounter Progress Notes * Kuldip Dempsey, PT - 01/23/2023 3:00 PM CDT Images from the original note were not included. Physical Therapy Evaluation / Plan of Care 01/23/2023 Emily Guerrier 1995 27 y.o. female Bhakti Bryson MSN, CASEWORK MANAGER-DC [address] [place] [address] ICD-9-CM ICD-10-CM 1. 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
--- OUTSIDE RECORDS SUMMARY | 2024-06-06 05:25 | XMS_ITS | Encounter Summary ---
Author Organization [facility] Healthcare Address [address] [place] [address] Care Team Providers Care Smart Energy Specialist Name Role Phone No, Physician Unavailable Lorie Vanessa NP Primary Care Provider Encounter Details Date Type Department Care Team (Latest Contact Info) Description 02/04/2023 2:08 PM CDT - 02/04/2023 11:59 PM CDT Hospital Encounter [facility] [address] [place] [address] [phone] Right foot pain Discharge Disposition: Discharge to [...] on file Legal Sex Female 6:55 PM SLOT AMBASSADOR Gender Identity Female 06/06/2022 7:40 AM SLOT AMBASSADOR Sexual Orientation Not on file documented as [...] limb documented in this encounter Care Teams Smart Energy Specialist Relationship Specialty Start Date End Date Lorie Vanessa NP [address] [place] [address] PCP - General Family Practice 05/29/22 No, Physician 06/08/21 documented as of this encounter
--- OUTSIDE RECORDS SUMMARY | 2024-06-06 05:25 | XMS_ITS | Encounter Summary ---
Author Organization [facility] Medical Group Address [address] [facility] [address] [place] [address] Care Team Providers Care Scientific Software Engineer Name Role Phone No, Physician Unavailable Lorie Vanessa NP Primary Care Provider [phone] Encounter Details Date Type Department Care Team (Late st Contact Info) Description 01/03/2023 Orders Only [facility] Gastroenterology at [address] [place] [address] Cj Thomas MD [address] [place] [address] [place] [address] [place] [address] Nausea and vomiting, unspecified vomiting [...] on file Legal Sex Female 6:55 PM ELECTROLYSIS INVESTIGATOR Gender Identity Female 06/06/2022 7:40 AM ELECTROLYSIS INVESTIGATOR Sexual Orientation Not on file documented [...] site documented in this encounter Care Teams Scientific Software Engineer Relationship Specialty Start Date End Date Lorie Vanessa NP [address] [place] [address] PCP - General Family Practice 05/29/22 No, Physician 06/08/21 documented as of this encounter
--- OUTSIDE RECORDS SUMMARY | 2024-06-06 05:25 | XMS_ITS | Encounter Summary ---
Author Organization [facility] Medical Group Address [address] [facility] [address] [place] [address] Care Team Providers Care Breaker Tender Name Role Phone No, Physician Unavailable Lorie Vanessa NP Primary Care Provider [phone] Encounter Details Date Type Department Care Team (Late st Contact Info) Description 01/03/2023 Telephone [facility] Primary Care at [place] [address] [facility] [address] [place] [address] Lorie Vanessa NP [address] [place] [address] Social History Tobacco Use Types Packs/Day [...] file Legal Sex Female 6:[address]ACKER OPERATOR Gender Identity Female 06/06/2022 7:[address] PACKER OPERATOR Sexual Orientation Not on file documented [...] documented as of this encounter Care Teams Breaker Tender Relationship Specialty Start Date End Date Lorie Vanessa NP [address] [place] [address] PCP - General Family Practice 05/29/22 No, Physician 06/08/21 documented as of this encounter
--- OUTSIDE RECORDS SUMMARY | 2024-06-06 05:25 | XMS_ITS | Encounter Summary ---
Author Organization [facility] Address [address] [place] [address] Care Team Providers Care Sulfuric Acid Plant Operator Name Role Phone No, Physician Unavailable Lorie Vanessa NP Primary Care Provider [phone] Reason for Visit * Auth/Cert (Routine) Specialty Diagnoses / Procedures Referred By Cyn burnett Referred To Contact Diagnoses Upper abdominal pain Nausea Diarrhea, unspecified type Gastroesophageal reflux disease without esophagitis Upper abdominal pain [R10.10] Nausea [R11.0] Diarrhea, unspecified type [R19.7] Gastroesophageal reflux disease without esophagitis [K21.9] Procedures ME ESOPHAGOGASTRODUODENOSCOPY TRANSORAL DIAGNOSTIC ME COLONOSCOPY,DIAGNOSTIC ESOPHAGOGASTRODUODENOSCOPY COLONOSCOPY Referral ID Status Reason Start Date Expiration Date Visits Re quested Visits Authorized [id number] 1 1 Encounter Details Date Type Department Care Team (Latest Contact Info) Description 01/09/2023 10:00 AM CDT - 01/09/2023 10:30 AM CDT Surgery [facility] GI Lab [address] [place] [address] Cj Thomas MD [address] [address] ESOPHAGOGASTRODUODENOSCOPY BIOPSY Surgery Details Date/Time Status Location [...] on file Legal Sex Female 6:55 PM TOOL AND DIE MANAGER Gender Identity Female 06/06/2022 7:40 AM TOOL AND DIE MANAGER Sexual Orientation Not on file documented [...] total) by mouth 2 (two) times a [id number] tablet 1 01/08/2023 at 0800 propranolol [place] [...] - 01/09/2023 10:36 AM CDTAssociated Order(s): EGD [facility] GI ENDOSCOPY Patient Name: Teresa Finney Procedure Date: 01/09/2023 10:36 AM Date of : 1995 Admit Type: Outpatient Age: 27 Gender: Female Attending MD: Cj Thomas M.D. Room: [facility] ENDOSCOPY ROOM 06 Note Status: Finalized Procedure: [...] On: 01/09/2023 10:36 AM Recognized by the [employer] for promoting quality in endoscopy * Cj Thomas MD - 01/09/2023 10:36 AM CDTAssociated Order(s): COLONOSCOPY [facility] GI ENDOSCOPY Patient Name: Teresa Finney Procedure Date: 01/09/2023 10:36 AM Date of : 1995 Admit Type: Outpatient Age: 27 Gender: Female Attending MD: Cj Thomas M.D. Room: [facility] ENDOSCOPY ROOM 06 Note Status: Finalized Procedure: [...] scope was passed under direct vision. The [id number]-[id number] colonoscope was introduced through the anus and [...] On: 01/09/2023 10:36 AM Recognized by the [employer] for promoting quality in endoscopy documented in this encounter Miscellaneous Notes * Pre-Procedure Instructions - Courtney Hurtado RN - 01/03/2023 2:42 PM CDT NPO after Midnight No alcohol or smoking 12 hours before surgery [place] teeth but do not swallow Shower or bathe, do not apply powders or lotions Expect to remove wigs, dentures, partials, contact lenses, body piercings and prosthesis Leave all jewelry and valuables at home Bring your glasses and hearing aide/s Make plans for responsible adult to drive you home or accompany you home Bring living will and/or power of reel system operator paperwork if you have one Follow GI physician instructions regarding blood thinner and vitamins Bring inhalers Take prep according to GI physician Please take the following medications with a small sip of water the AM of procedure: none Covid - none Arriving at GI lab [facility] 1 ,Entrance A , Go to Outpatient surgery concierge receptionist desk and check in 0900am documented in [...] Biopsy) 01/09/2023 10:54 AM CDT Narrative PATHOLOGY [facility] - 01/10/2023 1:04 PM CDT [facility] Department of Pathology [address] [place] [address] ?? Note to Patients: ??This report may [...] (Age: 27) Gender: ??F Address: ??[address] [place], [place] [address] [facility] #: [id number] Service: Gastro Location: Patient Type: [facility] OUTPATIENT ? Taken: 01/09/2023 Received: 01/09/2023 Accessioned: [...] Labeled D1. Jar 0. ?? jjb/01/09/2023 13:32 GORDON Curiel Microscopic slide review and interpretation for this case was performed at [facility], Department of Surgical Pathology, [address] [facility] [place], [place] [id number], ??[facility], [place] ??[address] ?? CLIA # [id number] us Cj Thomas MD LAB PATHOLOGY ORDERABLES Final R esult PATHOLOGY [facility] * EGD (01/09/2023 10:36 AM CDT) Anatomical Region Laterality Modality Other Narrative Procedure Note Cj Thomas MD - 01/09/2023 10:36 AM CDT [facility] GI ENDOSCOPY Patient Name: Teresa Finney Procedure Date: 01/09/2023 10:36 AM Date of : 1995 Admit Type: Outpatient Age: 27 Gender: Female Attending MD: Cj Thomas M.D. Room: [facility] ENDOSCOPY ROOM 06 Note Status: Finalized Procedure: [...] On: 01/09/2023 10:36 AM Recognized by the [employer] for promoting quality in endoscopy us Cj Thomas MD ENDOSCOPY PROCEDURES Final Resul t * COLONOSCOPY (01/09/2023 10:36 AM CDT) Anatomical Region Laterality Modality Other Narrative Procedure Note Cj Thomas MD - 01/09/2023 10:36 AM CDT [facility] GI ENDOSCOPY Patient Name: Teresa Finney Procedure Date: 01/09/2023 10:36 AM Date of : 1995 Admit Type: Outpatient Age: 27 Gender: Female Attending MD: Cj Thomas M.D. Room: [facility] ENDOSCOPY ROOM 06 Note Status: Finalized Procedure: [...] The scope was passed under direct vision.The [id number] colonoscope was introduced through theanus and advanced [...] On: 01/09/2023 10:36 AM Recognized by the [employer] for promoting quality [...] (Calc) POC 22 20 - 30 mmol/L [facility] Base excess, mauro POC -3 mmol/L [facility] Comment: Interpretive Data No reference range established. Current interpretive data was last revised 2020. Hemoglobin, mauro POC 13.6 11.9 - 15.5 g/dL [facility] Hematocrit, mauro POC 40.0 35.6 - 45.5 % [facility] Sodium, mauro POC 140 135 - 145 mmol/L [facility] Potassium, mauro POC 3.8 3.3 - 4.9 mmol/L [facility] Comment: Interpretive Data This method is not able to assess for hemolysis, which may falsely increase potassium concentrations. If further testing is needed to evaluate this result, consider in-laboratory plasma potassium. Current Interpretive Data was last revised on 2022. Glucose, mauro POC 90 70 - 199 mg/dL [facility] Ionized Calcium, mauro POC 5.10 4.45 - 5.25 mg/dL [facility] Blood 01/09/2023 9:3 3 AM CDT 01/09/2023 9:33 AM CDT Cj Thomas MD LAB POCT ORDERABLES - DEVICE Fin al Result Performing Organization Address City/State/[facility] Co de Phone Number FRAN [address] [facility] Department [place] [address] * POCT hCG, urine (01/09/2023 9:21 AM CDT) HCG, ur, POC Negative Lot Number [id number] QC Backgroud Clear Acceptable QC Control Line [...] 01/09/2023 documented in this encounter Care Teams Sulfuric Acid Plant Operator Relationship Specialty Start Date End Date Lorie Vanessa, CREATIVE ASSISTANT [address] [place] [address] PCP - General Family Practice 05/29/22 No, Physician 06/08/21 documented as of this encounter
--- OUTSIDE RECORDS SUMMARY | 2024-06-06 05:25 | XMS_ITS | Encounter Summary ---
Author Organization [facility] Healthcare Address [address] [place] [address] Care Team Providers Care Vault Person Name Role Phone No, Physician Unavailable Lorie Vanessa NP Primary Care Provider [phone] Encounter Details Date Type Department Care Team (Late st Contact Info) Description 02/14/2023 Telephone [facility] Physical Therapy [address] [place] [address] Madina Kenney, PT Social History [...] on file Legal Sex Female 6:55 PM METAL TILE SETTER Gender Identity Female 06/06/2022 7:40 AM METAL TILE SETTER Sexual Orientation Not on file documented as [...] on filedocumented in this encounter Care Teams Vault Person Relationship Specialty Start Date End Date Lorie Vanessa NP [address] [place] [address] PCP - General Family Practice 05/29/22 No, Physician 06/08/21 documented as of this encounter
--- OUTSIDE RECORDS SUMMARY | 2024-06-06 05:25 | XMS_ITS | Encounter Summary ---
Author Organization [facility] Healthcare Address [address] [place] [address] Care Team Providers Care Cyber Security Analyst Name Role Phone No, Physician Unavailable Lorie Vanessa NP Primary Care Provider [phone] Reason for Visit * Reason Comments PT Treatment * Consultation (Routine) - Canceled Specialty Diagnoses / Procedures Referred By Cyn burnett Referred To Contact Physical Therapy Diagnoses Sprain of ligaments of lumbar spine, initial encounter Ella Stephenson MD [address] [place] [address] Phone: tel: fax: [address] [address] Referral ID Status Reason Start Date Expiration Date V isits Requested Visits Authorized [id number] Canceled Evaluate and Treat 01/21/2023 02/20/2024 6 6 Encounter Details Date Type Department Care Team (Late st Contact Info) Description 01/24/2023 3:00 PM CDT Therapy [facility] Physical Therapy [address] [place] [address] Kuldip Dempsey, GRACIELA Sprain of ligaments [...] on file Legal Sex Female 6:55 PM PUSH BUTTON SWITCH ASSEMBLER Gender Identity Female 06/06/2022 7:40 AM PUSH BUTTON SWITCH ASSEMBLER Sexual Orientation Not on file documented as of this encounter Progress Notes * Kuldip eDmpsey, PT - 01/24/2023 3:00 PM CDT Images from the original note were not included. Physical Therapy Visit PT Daily Treatment Note 01/24/2023 Emily Guerrier 1995 ICD-9-CM ICD-10-CM 1. Sprain of ligaments of lumbar spine, initial encounter 847.2 S33.5XXA Precautions: None ADJUSTOR: SAMMY TURNER PHONE NUMBER: [phone] CLAIM #: [id number] DATE OF INJURY: 01/20/2023 Visit Info Next [...] Code Calculator Minutes for Ther Ex/Ther Procedure (95560):: 38 minutes Minutes for Manual Therapy (29160):: 5 minutes Timed Code Treatment Minutes:: 43 minutes Total Treatment Time: 53 documented in this encounter Plan of Treatment Not on file documented as of this encounter Visit Diagnoses Diagnosis Sprain of ligaments of lumbar spine, initial encounter- Primary documented in this encounter Care Teams Cyber Security Analyst Relationship Specialty Start Date End Date Lorie Vanessa NP [address] [place] [address] PCP - General Family Practice 05/29/22 No, Physician 06/08/21 documented as of this encounter
--- OUTSIDE RECORDS SUMMARY | 2024-06-06 05:25 | XMS_ITS | Encounter Summary ---
Author Organization [facility] Healthcare Address [address] [place] [address] Care Team Providers Care Circular Knitter Helper Name Role Phone No, Physician Unavailable Lorie Vanessa NP Primary Care Provider [phone] Encounter Details Date Type Department Care Team (Late st Contact Info) Description 02/01/2023 Telephone [facility] Physical Therapy [address] [place] [address] Madina Kenney, PT Social History [...] on file Legal Sex Female 6:55 PM SECURITY SYSTEMS SPECIALIST Gender Identity Female 06/06/2022 7:40 AM SECURITY SYSTEMS SPECIALIST Sexual Orientation Not on file documented as of this encounter Miscellaneous Notes * Telephone Encounter - Madina Gonzalez, PT - 02/01/2023 10:23 AM CDT Emailed property claims adjuster, Stephania Doyle, to let her know that [...] on filedocumented in this encounter Care Teams Circular Knitter Helper Relationship Specialty Start Date End Date Lorie Vanessa NP [address] [place] [address] PCP - General Family Practice 05/29/22 No, Physician 06/08/21 documented as of this encounter
--- OUTSIDE RECORDS SUMMARY | 2024-06-06 05:25 | XMS_ITS | Encounter Summary ---
Author Organization [facility] Healthcare Address [address] [place] [address] Care Team Providers Care Validation Architect Name Role Phone No, Physician Unavailable Lorie Vanessa NP Primary Care Provider [phone] Encounter Details Date Type Department Care Team (Late st Contact Info) Description 01/07/2023 12:05 PM CDT Lab [facility] Lab [facility] [place] [address] Diarrhea, unspecified type Social History Tobacco Use [...] file Legal Sex Female 6:55 PM HEALTH SCIENCES MANAGER Gender Identity Female 06/06/2022 7:40 AM HEALTH SCIENCES MANAGER Sexual Orientation Not on file documented [...] Negative [facility]YS Comment:Testing performed by : [facility], [address] [place] [address]., [address] Cryptosporidium Ag Negative Negative [facility]AN [place]YS Comment: Interpretive data: Testing performed by the [facility] Microbiology Laboratory using an immunoassay that detects Cryptosporidium and Giardia antigens in stool specimens. ??If comprehensive examination for ova and parasites is required, please request Ova and Parasite Examination . Testing performed by: [facility], [address] [place] [address]., [address] Stool 01/07/2023 12:0 9 PM CDT 01/08/2023 1:45 PM CDT us Cj Thomas MD LAB MICROBIOLOGY - GENERAL ORDER DAVIN Final Result [facility] [address] [facility] Department [place] [address] * (ABNORMAL) Stool culture Stool Rectum (01/07/2023 12:09 PM CDT) Direct Specimen Exam Shiga Toxin Testing: Antigen detection assay for Shiga-toxin NEGATIVE for Shiga Toxin 1 and Shiga Toxin 2. FRAN Comment:Testing performed by : [facility], [address] [place]., [address] Report Final Report: Enterococcus faecium Vancomycin Resistant Predominant organism. No growth of enteric bacterial pathogens (.) FRAN Comment:Testing performed by : [facility], [address] [place]., [address] Organism ENTEROCOCCUS FAECIUM [facility] Stool (Rectum) 01/07/2023 12 :09 PM CDT 01/07/2023 5:58 PM CDT Narrative [facility] - 01/11/2023 6:10 PM CDT received in [facility] Testing performed by [facility] Microbiology Laboratory ([phone]). Routine stool cultures include procedures to detect Salmonella, Shigella, Edwardsiella, Aeromonas, Pleisiomonas, Campylobacter, Yersinia, E. coli O157, and Shiga-like toxins. ?? Vibrio is cultured only upon special request. ??If Vibrio is suspected, please call the laboratory at [phone]. Interpretive data was last updated October 01, 2016. Cj Thomas MD LAB MICROBIOLOGY - GENERAL ORDER DAVIN Final Result [facility] [address] [facility] Department [place] [address] * C. difficile testing Stool (01/07/2023 12:09 PM CDT) Pathologist [facility] C. diff result Negative, DNA Negative , DNA [facility] C. diff interp Negative for toxigenic [...] - GENERAL ORDER DAVIN Final Result FRAN [address] [place] [address] * Lactoferrin, Fecal (01/07/2023 12:09 PM CDT) Lactoferrin, fecal Negative Negative FRAN Stool 01/07/2023 12:0 9 PM CDT 01/07/2023 1:48 PM CDT us Cj Thomas MD LAB BODY FLUIDS AND STOOLS ORDER DAVIN Final Result Performing Organization Address [facility] Co de Phone Number FRAN [address] [address] documented in this encounter Visit Diagnoses Diagnosis Diarrhea, unspecified type documented in this encounter Orders Lab Orders Without Results Count Last Ordered D ate First Ordered Date CRYPTOSPORIDIUM AND GIARDIA ANTIGEN ASSAY 1 01/07/2023 documented in this encounter Care Teams Validation Architect Relationship Specialty Start Date End Date Lorie Vanessa NP [address] [place] [address] PCP - General Family Practice 05/29/22 No, Physician 06/08/21 documented as of this encounter
--- OUTSIDE RECORDS SUMMARY | 2024-06-06 05:25 | XMS_ITS | Encounter Summary ---
Author Organization [facility] Healthcare Address [address] [place] [address] Care Team Providers Care Motor Electrician Name Role Phone No, Physician Unavailable oLrie Vanessa NP Primary Care Provider [phone] Reason for Visit * Reason Comments PT Treatment * Consultation (Routine) - Closed Specialty Diagnoses / Procedures Referred By Cyn burnett Referred To Contact Physical Therapy Diagnoses Left lumbar pain Justin Grover NP [address] [place] [address] Phone: tel: fax: [address] [address] Referral ID Status Reason Start Date Expiration Date V isits Requested Visits Authorized [id number] Closed Evaluate and Treat 02/11/2023 03/12/2024 Encounter Details Date Type Department Care Team (Late st Contact Info) Description 02/15/2023 1:30 PM CDT Therapy [facility] Physical Therapy [address] [place] [address] Poonam Thompson, DPAndrew Left lumbar pain [...] on file Legal Sex Female 6:55 PM MASTER PLANNER Gender Identity Female 06/06/2022 7:40 AM MASTER PLANNER Sexual Orientation Not on file documented as [...] Precautions: None ADJUSTOR: SAMMY TURNER PHONE NUMBER: [phone] CLAIM #: [id number] DATE OF INJURY: 01/20/2023 History: 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 Followed back up with [facility] (02/11/23) and was referred back to PT [...] Clamshells HEP Yellow x10 ANA Bridging with pap[place] new guinean ball 2x10 2x10. Wincing and grimacing end [...] toward the end of second set of papua new guinean ball bridges. Pt states it was hurting [...] Code Calculator Minutes for Ther Ex/Ther Procedure (03351):: 27 minutes Minutes for Manual Therapy (31314):: 5 minutes Timed Code Treatment Minutes:: 32 minutes Total Treatment Time: 42 documented in this encounter Plan of Treatment Not on file documented as of this encounter Visit Diagnoses Diagnosis Left lumbar pain- Primary Lumbago Sprain of ligaments of lumbar spine, initial encounter documented in this encounter Care Teams Motor Electrician Relationship Specialty Start Date End Date Lorie Vanessa NP [address] [place] [address] PCP - General Family Practice 05/29/22 No, Physician 06/08/21 documented as of this encounter
--- OUTSIDE RECORDS SUMMARY | 2024-06-06 05:25 | XMS_ITS | Encounter Summary ---
Author Organization [facility] Healthcare Address [address] [place] [address] Care Team Providers Care Product Marketing Director Name Role Phone No, Physician Unavailable Lorie Vanessa NP Primary Care Provider [phone] Encounter Details Date Type Department Care Team (Late st Contact Info) Description 01/29/2023 Telephone [facility] Physical Therapy [address] [place] [address] Kuldip Dempsey PT Social History [...] on file Legal Sex Female 6:55 PM TODDLER GUIDE Gender Identity Female 06/06/2022 7:40 AM TODDLER GUIDE Sexual Orientation Not on file documented as of this encounter Miscellaneous Notes * Telephone Encounter - Kuldip Dempsey, PT - 01/29/2023 7:47 AM CDT Emailed worker's compensation claims examiner regarding patient not meeting her frequency last [...] filedocumented in this encounter Care Teams Product Marketing Director Relationship Specialty Start Date End Date Lorie Vanessa NP [address] [place] [address] PCP - General Family Practice 05/29/22 No, Physician 06/08/21 documented as of this encounter
--- OUTSIDE RECORDS SUMMARY | 2024-06-06 05:25 | XMS_ITS | Encounter Summary ---
Author Organization [facility] Healthcare Address [address] [place] [address] Care Team Providers Care Purchase Price Analyst Name Role Phone No, Physician Unavailable Lorie Vanessa NP Primary Care Provider [phone] Reason for Visit * Reason Comments Foot Pain Fall Encounter Details Date Type Department Care Team (Late st Contact Info) Description 01/26/2023 7:06 PM CDT - 01/26/2023 10:13 PM CDT Emergency [facility] Emergency Department [address] [place] [address] Closed nondisplaced fracture of fifth [...] on file Legal Sex Female 6:55 PM FACULTY CRIMINAL JUSTICE Gender Identity Female 06/06/2022 7:40 AM FACULTY CRIMINAL JUSTICE Sexual Orientation Not on file documented as [...] Care Everywhere. * SPRAIN, ANKLE, WITH X-RAY (GABONESE) * Foot Fracture in Adults (Discharge Care) (Belizean) documented in this encounter Medications at Time [...] documented in this encounter ED Notes * Eve Hendrix NP - 01/26/2023 8:34 PM CDT [...] Date POST-OP SHOE MED SIZE 9-11 MALE (S47023) 1 01/26/2023 Nursing Count Last Ordered Date First Orde red Date APPLY ICE TO AFFECTED AREA 1 01/26/2023 BRACE APPLICATION 1 01/26/2023 ED SUPPLY 1 01/26/2023 documented in this encounter Care Teams Purchase Price Analyst Relationship Specialty Start Date End Date Lorie Vanessa NP [address] [place] [address] PCP - General Family Practice 05/29/22 No, Physician 06/08/21 documented as of this encounter
--- OUTSIDE RECORDS SUMMARY | 2024-06-06 05:25 | XMS_ITS | Encounter Summary ---
Author Organization [facility] Address [address] [place] [address] Phone Care Team Providers Care Still Operator Gin Name Role Phone No, Physician Unavailable Lorie Vanessa NP Primary Care Provider [phone] Reason for Visit * Reason Comments Pain Encounter Details Date Type Department Care Team (Late st Contact Info) Description 02/04/2023 1:30 PM CDT Office Visit [facility] Orthopaedic Surgery [address] [place] [address] [place] [address] [place] [address] Closed displaced fracture of fifth metatarsal bone [...] on file Legal Sex Female 6:55 PM SHEET METAL OPERATOR Gender Identity Female 06/06/2022 7:40 AM SHEET METAL OPERATOR Sexual Orientation Not on file documented [...] reach your provider through the office at [phone]. If you need to reschedule your appointment, please call [phone]. TONY Smith [facility] Department of Orthopaedics Working in collaborative practice with Pavan Alarcon M.D. Portions of this note were dictated using [employer] Direct speech recognition software. Please excuse any sociology professor errors. documented in this encounter Progress Notes * Venessa De La Cruz NP - 02/04/2023 1:30 PM CDT Images from the original note were not included. NEW PATIENT VISIT [facility] ORTH[facility] CHIEF COMPLAINT Right foot pain REFERRING [...] all questions are answered today. TONY Smith [facility] Department of Orthopaedics Working in collaboration with Pavan Alarcon M.D. Portions of this note were dictated using [employer] Direct speech recognition software. Please excuse any sociology professor errors. Cosigned by Pavan Alarcon MD at [...] limb documented in this encounter Care Teams Still Operator Gin Relationship Specialty Start Date End Date Lorie Vanessa NP [address] [place] [address] PCP - General Family Practice 05/29/22 No, Physician 06/08/21 documented as of this encounter
--- OUTSIDE RECORDS SUMMARY | 2024-06-06 05:25 | XMS_ITS | Encounter Summary ---
Author Organization [facility] Healthcare Address [address] [place] [address] Care Team Providers Care Management Lecturer Name Role Phone No, Physician Unavailable Lorie Vanessa NP Primary Care Provider Reason for Visit * Reason Comments PT Treatment * Consultation (Routine) - Closed Specialty Diagnoses / Procedures Referred By Cyn burnett Referred To Contact Physical Therapy Diagnoses Left lumbar pain Justin Grover NP [address] [place] [address] Phone: tel: fax: [address] [phone] Referral ID Status Reason Start Date Expiration Date V isits Requested Visits Authorized [id number] Closed Evaluate and Treat 02/11/2023 03/12/2024 Encounter Details Date Type Department Care Team (Late st Contact Info) Description 02/14/2023 2:00 PM CDT Therapy [facility] Physical Therapy [address] [place] [phone] Jen Kumar, DPT Left lumbar pain [...] file Legal Sex Female 6:55 PM DIRECTOR SOFTWARE Gender Identity Female 06/06/2022 7:40 AM DIRECTOR SOFTWARE Sexual Orientation Not on file documented as of this encounter Progress Notes * Jen Kumar, DPT - 02/14/2023 2:00 PM CDT Physical Therapy Visit PT Daily Treatment Note 02/14/2023 Emily Guerrier 1995 ICD-9-CM ICD-10-CM 1. Left lumbar pain 724.2 M54.50 2. Sprain of ligaments of lumbar spine, initial encounter 847.2 S33.5XXA Precautions: None ADJUSTOR: SAMMY TURNER PHONE NUMBER: [phone] CLAIM #: [id number] DATE OF INJURY: 01/20/2023 Visit Info Next MD Visit: 02/20/23 Progress Report Completed: 02/12/23 Progress Report Due: 10th visit Start Time: 1401 End Time: 1457 Patient ID verified. History: working on [facility]20/23 at [facility] [...] metatarsal at the base. 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 Followed back up with [facility] (02/11/23) and was referred back to PT [...] lift 2x10 ANA Lower abdominal contraction with AAN shoulder extension in supine (latissimus pull down) Yellow 2x10 Clamshells X10 reps HEP Yellow x10 ANA Bridging with cape verdean ball 2x10 Prone alternating hip extension with [...] Code Calculator Minutes for Ther Ex/Ther Procedure (58224):: 38 minutes Minutes for Manual Therapy (02487):: 8 minutes Timed Code Treatment Minutes:: 46 minutes Total Treatment Time: 56 documented in this encounter Plan of Treatment Not on file documented as of this encounter Visit Diagnoses Diagnosis Left lumbar pain- Primary Lumbago Sprain of ligaments of lumbar spine, initial encounter documented in this encounter Care Teams Management Lecturer Relationship Specialty Start Date End Date Lorie Vanessa NP [address] [place] [address] PCP - General Family Practice 05/29/22 No, Physician 06/08/21 documented as of this encounter
--- OUTSIDE RECORDS SUMMARY | 2024-06-06 05:25 | XMS_ITS | Encounter Summary ---
Author Organization [facility] Healthcare Address [address] [place] [address] Care Team Providers Care Mail Room Name Role Phone No, Physician Unavailable Lorie Vanessa NP Primary Care Provider [phone] Reason for Visit * Auth/Cert (Routine) Specialty Diagnoses / Procedures Referred By Cyn burnett Referred To Contact Diagnoses Upper abdominal pain Nausea Diarrhea, unspecified type Gastroesophageal reflux disease without esophagitis Upper abdominal pain [R10.10] Nausea [R11.0] Diarrhea, unspecified type [R19.7] Gastroesophageal reflux disease without esophagitis [K21.9] Procedures IA ESOPHAGOGASTRODUODENOSCOPY TRANSORAL DIAGNOSTIC IA COLONOSCOPY,DIAGNOSTIC ESOPHAGOGASTRODUODENOSCOPY COLONOSCOPY Referral ID Status Reason Start Date Expiration Date Visits Re quested Visits Authorized [id number] 1 1 Encounter Details Date Type Department Care Team (Late st Contact Info) Description 01/09/2023 10:35 AM CDT Anesthesia Event [facility] GI Lab [address] [place] [address] Segundo Burciaga MD [address] [place] [address] Trae Trent MD [address] [facility] [address] [facility] [address] [place] [address] Anesthesia Record Procedure Summary Procedure Name Responsible Anesthesiologist Anesthesia Start Time Anesthesia Stop Time ESOPHAGOGASTRODUODENOSCOPY BIOPSY Segundo Burciaga MD 01/09/23 1035 01/09/23 1111 Events [...] file Legal Sex Female 6:55 PM MAINTENANCE TECH Gender Identity Female 06/06/2022 7:40 AM MAINTENANCE TECH Sexual Orientation Not on file documented as of this encounter OR Notes * Anesthesia Postprocedure Evaluation - Segundo Burciaga MD - 01/09/2023 11:49 AM CDT Patient: Emily Guerrier Procedure Summary Date: 01/09/23 Room / Location: [facility] ENDOSCOPY ROOM 06 / [facility] ENDOSCOPY Anesthesia Start: 1035 Anesthesia Stop: 1111 Procedures: ESOPHAGOGASTRODUODENOSCOPY BIOPSY COLON BIOPSY Diagnosis: Upper abdominal pain Nausea Diarrhea, unspecified type Gastroesophageal reflux disease without esophagitis (Upper abdominal pain [R10.10]) (Nausea [R11.0]) (Diarrhea, unspecified type [R19.7]) (Gastroesophageal reflux disease without esophagitis [K21.9]) Providers: jC Thomas MD Responsible Provider: Segundo Burciaga MD Anesthesia Type: MAC ASA Status: 3 Anesthesia Type: MAC Last vitals BP 114/82 (BP Location: Left arm) Pulse 71 Temp 36.6 ??C (97.8 ??F) (Tympanic) Resp 19 [id number]% Anesthesia Post Evaluation Patient location during evaluation: [...] EKG 11/20/22 with evidence of new inferior AL, new since 08/06/22 08/06/22 ECHO Interpretation Summary [...] mcg/actuation inhaler -- 11/01/22 11/01/23 Jackson Dodd [facility] Inhale 1-2 puffs every 6 (six) hours [...] Medication protocol when under care of a PIANO PLAYER Planned anesthesia: MAC Comments: prn general anesthesia Induction: Induction: intravenous. Postoperative Plan: Postoperative administration opioids intended. Patient's planned disposition post procedure is Outpatient. Informed Consent: Discussed plan with PIANO PLAYER. Anesthesia plan and risks discussed with patient. [...] mg documented in this encounter Care Teams Mail Room Relationship Specialty Start Date End Date Lorie Vanessa NP [address] [place] [address] PCP - General Family Practice 05/29/22 No, Physician 06/08/21 documented as of this encounter
--- OUTSIDE RECORDS SUMMARY | 2024-06-06 05:25 | XMS_ITS | Encounter Summary ---
Author Organization [facility] Address [address] [facility] [address] [place] [address] Care Team Providers Care Helminthologist Name Role Phone No, Physician Unavailable Lorie Vanessa NP Primary Care Provider [phone] Encounter Details Date Type Department Care Team (Late st Contact Info) Description 01/16/2023 Telephone [facility] Primary Care at [place] [address] [facility] [address] [place] [address] Lorie Vanessa NP [address] [place] [address] Social History Tobacco Use Types Packs/Day [...] Legal Sex Female 6:55 PM REAL ESTATE UNDERWRITER Gender Identity Female 06/06/2022 7:40 AM REAL ESTATE UNDERWRITER Sexual Orientation Not on file documented as of this encounter Miscellaneous Notes * Telephone Encounter - Shilo Michael MA - 01/16/2023 10:26 AM CDT Called pt regarding appt tomorrow as Lorie is not on site. LM informing pt of the above and advisingher to call CC at [phone] to be seen. documented in this encounter Plan of Treatment Not on file documented as of this encounter Visit Diagnoses Not on filedocumented in this encounter Care Teams Helminthologist Relationship Specialty Start Date End Date Lorie Vanessa NP [address] [place] [address] PCP - General Family Practice 05/29/22 No, Physician 06/08/21 documented as of this encounter
--- OUTSIDE RECORDS SUMMARY | 2024-06-06 05:25 | XMS_ITS | Encounter Summary ---
Author Organization [facility] Healthcare Address [address] [place] [address] Care Team Providers Care Safety Assistant Name Role Phone No, Physician Unavailable Lorie Vanessa NP Primary Care Provider [phone] Encounter Details Date Type Department Care Team (Latest Contact Info) Description 02/15/2023 2:18 PM CDT - 02/15/2023 11:59 PM CDT Hospital Encounter [facility] - Imaging [address] [place] [address] Right foot pain Discharge Disposition: [...] on file Legal Sex Female 6:55 PM SCOURING MACHINE TENDER Gender Identity Female 06/06/2022 7:40 AM SCOURING MACHINE TENDER Sexual Orientation Not on file [...] limb documented in this encounter Care Teams Safety Assistant Relationship Specialty Start Date End Date Lorie Vanessa NP [address] [place] [address] PCP - General Family Practice 05/29/22 No, Physician 06/08/21 documented as of this encounter
--- OUTSIDE RECORDS SUMMARY | 2024-06-06 05:25 | XMS_ITS | Encounter Summary ---
Author Organization [facility] Address [address] [facility] [address] [place] [address] Care Team Providers Care In Class Special Education Teacher Name Role Phone No, Physician Unavailable Lorie Vanessa NP Primary Care Provider [phone] Encounter Details Date Type Department Care Team (Late st Contact Info) Description 01/11/2023 Documentation [facility] Gastroenterology at [address] [place] [address] Della Vanessa NP [address] [place] [address] Social History Tobacco Use Types Packs/Day Years [...] file Legal Sex Female 6:55 PM SUPERVISOR RECEIVING AND PROCESSING Gender Identity Female 06/06/2022 7:40 AM SUPERVISOR RECEIVING AND PROCESSING Sexual Orientation Not on file documented as [...] on filedocumented in this encounter Care Teams In Class Special Education Teacher Relationship Specialty Start Date End Date Lorie Vanessa NP [address] [place] [address] PCP - General Family Practice 05/29/22 No, Physician 06/08/21 documented as of this encounter
--- OUTSIDE RECORDS SUMMARY | 2024-06-06 05:25 | XMS_ITS | Encounter Summary ---
Author Organization formerly [facility] Address [address] [place] [address] Care Team Providers Care Hydrogeologist Name Role Phone No, Physician Unavailable Lorie Vanessa NP Primary Care Provider [phone] Reason for Visit * Auth/Cert (Routine) Specialty Diagnoses / Procedures Referred By Cyn burnett Referred To Contact Diagnoses Upper abdominal pain Nausea Diarrhea, unspecified type Gastroesophageal reflux disease without esophagitis Upper abdominal pain [R10.10] Nausea [R11.0] Diarrhea, unspecified type [R19.7] Gastroesophageal reflux disease without esophagitis [K21.9] Procedures [place] ESOPHAGOGASTRODUODENOSCOPY TRANSORAL DIAGNOSTIC [place] COLONOSCOPY,DIAGNOSTIC ESOPHAGOGASTRODUODENOSCOPY COLONOSCOPY Referral ID Status Reason Start Date Expiration Date Visits Re quested Visits Authorized [id number] 1 1 Encounter Details Date Type Department Care Team (Latest Contact Info) Description 01/09/2023 8:53 AM CDT - 01/09/2023 12:17 PM CDT Hospital Encounter [facility] GI Lab [address] [place] [address] Cj Thomas MD [address] [address] Gastroesophageal reflux disease without esophagitis; Upper abdominal [...] on file Legal Sex Female 6:55 PM SPEECH AND LANGUAGE SPECIALIST Gender Identity Female 06/06/2022 7:40 AM SPEECH AND LANGUAGE SPECIALIST Sexual Orientation Not on file documented [...] total) by mouth 2 (two) times a [id number] tablet 1 01/08/2023 at 0800 propranolol [place] [...] - 01/09/2023 10:36 AM CDTAssociated Order(s): EGD [facility] GI ENDOSCOPY Patient Name: Teresa Cervantes Procedure Date: 01/09/2023 10:36 AM Date of : 1995 Admit Type: Outpatient Age: 27 Gender: Female Attending MD: Cj Thomas M.D. Room: [facility] ENDOSCOPY ROOM 06 Note Status: Finalized [...] On: 01/09/2023 10:36 AM Recognized by the [place] for promoting quality in endoscopy * Cj Thomas MD - 01/09/2023 10:36 AM CDTAssociated Order(s): COLONOSCOPY [facility] GI ENDOSCOPY Patient Name: Teresa Cervantes Procedure Date: 01/09/2023 10:36 AM Date of : 1995 Admit Type: Outpatient Age: 27 Gender: Female Attending MD: Cj Thomas M.D. Room: [facility] ENDOSCOPY ROOM 06 Note Status: Finalized [...] scope was passed under direct vision. The [id number]-[id number] colonoscope was introduced through the anus and [...] On: 01/09/2023 10:36 AM Recognized by the [place] for promoting quality in endoscopy documented in this encounter Miscellaneous Notes * Pre-Procedure Instructions - Courtney Hurtado RN - 01/03/2023 2:42 PM CDT NPO after Midnight No alcohol or smoking 12 hours before surgery [place] teeth but do not swallow Shower or bathe, do not apply powders or lotions Expect to remove wigs, dentures, partials, contact lenses, body piercings and prosthesis Leave all jewelry and valuables at home Bring your glasses and hearing aide/s Make plans for responsible adult to drive you home or accompany you home Bring living will and/or power of attorney law clerk paperwork if you have one Follow GI physician instructions regarding blood thinner and vitamins Bring inhalers Take prep according to GI physician Please take the following medications with a small sip of water the AM of procedure: none Covid - none Arriving at GI lab [facility] Building 1 ,Entrance A , Go to Outpatient surgery data capture specialist desk and check in 0900am documented in [...] Biopsy) 01/09/2023 10:54 AM CDT Narrative PATHOLOGY [facility] - 01/10/2023 1:04 PM CDT [facility] Department of Pathology [address] [place] [address] ?? Note to Patients: ??This report may [...] (Age: 27) Gender: ??F Address: ??[address], [place] [address] [facility] #: [id number] Service: Gastro Location: Patient Type: [facility] OUTPATIENT ? Taken: 01/09/2023 Received: 01/09/2023 Accessioned: [...] interpretation for this case was performed at [facility], Department of Surgical Pathology, [address] [facility] [place], [place] [id number], ??[place], [place] ??[address] ?? CLIA # [id number] us Cj Thomas MD LAB PATHOLOGY ORDERABLES Final R esult PATHOLOGY [facility] * EGD (01/09/2023 10:36 AM CDT) Anatomical Region Laterality Modality Other Narrative Procedure Note Cj Thomas MD - 01/09/2023 10:36 AM CDT [facility] GI ENDOSCOPY Patient Name: Teresa Cervantes Procedure Date: 01/09/2023 10:36 AM Date of : 1995 Admit Type: Outpatient Age: 27 Gender: Female Attending MD: Cj Thomas M.D. Room: [facility] ENDOSCOPY ROOM 06 Note Status: Finalized [...] On: 01/09/2023 10:36 AM Recognized by the [place] [employer] for promoting quality in endoscopy us Cj Thomas MD ENDOSCOPY PROCEDURES Final Resul t * COLONOSCOPY (01/09/2023 10:36 AM CDT) Anatomical Region Laterality Modality Other Narrative Procedure Note Cj Thomas MD - 01/09/2023 10:36 AM CDT [facility] GI ENDOSCOPY Patient Name: Teresa Cervantes Procedure Date: 01/09/2023 10:36 AM Date of : 1995 Admit Type: Outpatient Age: 27 Gender: Female Attending MD: Cj Thomas M.D. Room: [facility] ENDOSCOPY ROOM 06 Note Status: Finalized [...] The scope was passed under direct vision.The PCF-[id number] colonoscope was introduced through theanus and advanced [...] On: 01/09/2023 10:36 AM Recognized by the [place] for promoting quality in endoscopy Cj Thomas MD ENDOSCOPY PROCEDURES Final Resul t * (ABNORMAL) POC Blood Gas and Chemistries, Venous - (01/09/2023 9:33 AM CDT) pH,mauro POC 7.37 7.32 - 7.43 [facility] pCO2, mauro POC 38(L) 40 - 50 mmHg [facility] pO2,mauro POC 58 mmHg [facility] Comment: Interpretive Data No reference range established. Current interpretive data was last revised 2020. HCO3, mauro (Calc) POC 22 20 - 30 mmol/L [facility] Base excess, mauro POC -3 mmol/L [facility] Comment: Interpretive Data No reference range established. Current interpretive data was last revised 2020. Hemoglobin, mauro POC 13.6 11.9 - 15.5 g/dL [facility] Hematocrit, mauro POC 40.0 35.6 - 45.5 % [facility] Sodium, mauro POC 140 135 - 145 mmol/L [facility] Potassium, mauro POC 3.8 3.3 - 4.9 mmol/L [facility] Comment: Interpretive Data This method is not able to assess for hemolysis, which may falsely increase potassium concentrations. If further testing is needed to evaluate this result, consider in-laboratory plasma potassium. Current Interpretive Data was last revised on 2022. Glucose, mauro POC 90 70 - 199 mg/dL [facility] Ionized Calcium, mauro POC 5.10 4.45 - 5.25 mg/dL [facility] Blood 01/09/2023 9:33 AM CDT 01/09/2023 9:33 AM CDT Cj Thomas MD LAB POCT ORDERABLES - DEVICE Fin al Result Performing Organization Address City/State/[facility] Co de Phone Number [place] [phone] [facility] Department [place] [address] * POCT hCG, urine (01/09/2023 9:21 AM CDT) HCG, ur, POC Negative Lot Number [id number] QC Backgroud Clear Acceptable QC Control Line [...] 01/09/2023 documented in this encounter Care Teams Hydrogeologist Relationship Specialty Start Date End Date Lorie Vanessa NP [address] [place] [address] PCP - General Family Practice 05/29/22 No, Physician 06/08/21 documented as of this encounter
--- OUTSIDE RECORDS SUMMARY | 2024-06-06 05:25 | XMS_ITS | Encounter Summary ---
Author Organization [facility] Address [address] [place] [address] Care Team Providers Care Hat Lacer Name Role Phone No, Physician Unavailable Lorie Vanessa NP Primary Care Provider [phone] Encounter Details Date Type Department Care Team (Late st Contact Info) Description 01/08/2023 Orders Only [facility] Gastroenterology at [address] [place] [address] Cj Thomas MD [address] [place] [address] [address] [place] [address] Diarrhea, unspecified type (Primary Dx) [...] on file Legal Sex Female 6:55 PM ICE HANDLER Gender Identity Female 06/06/2022 7:40 AM ICE HANDLER Sexual Orientation Not on file documented as of this encounter Plan of Treatment Not on file documented as of this encounter Visit Diagnoses Diagnosis Diarrhea, unspecified type- Primary documented in this encounter Care Teams Hat Lacer Relationship Specialty Start Date End Date Lorie Vanessa NP [address] [place] [address] PCP - General Family Practice 05/29/22 No, Physician 06/08/21 documented as of this encounter
--- OUTSIDE RECORDS SUMMARY | 2024-06-06 05:25 | XMS_ITS | Encounter Summary ---
Author Organization [facility] Address [address] [place] [address] Phone Care Team Providers Care Glaze Grinder Name Role Phone No, Physician Unavailable Lorie Vanessa NP Primary Care Provider [phone] Encounter Details Date Type Department Care Team (Late st Contact Info) Description 02/15/2023 Orders Only [facility] Orthopaedic Surgery [address] 2[address] [place] [phone] [place] [address] [place] [address] [place] [address] Right foot pain (Primary Dx) Social History [...] on file Legal Sex Female 6:55 PM BUS AIDE Gender Identity Female 06/06/2022 7:40 AM BUS AIDE Sexual Orientation Not on file documented as [...] limb documented in this encounter Care Teams Glaze Grinder Relationship Specialty Start Date End Date Lorie Vanessa NP [address] [place] [address] PCP - General Family Practice 05/29/22 No, Physician 06/08/21 documented as of this encounter
--- OUTSIDE RECORDS SUMMARY | 2024-06-06 05:25 | XMS_ITS | Encounter Summary ---
Author Organization [facility] Healthcare Address [address] [place] [address] Care Team Providers Care Matrix Supervisor Name Role Phone No, Physician Unavailable Lorie Vanessa NP Primary Care Provider [phone] Reason for Visit * Reason Comments PT Re-Eval * Consultation (Routine) - Closed Specialty Diagnoses / Procedures Referred By Cyn burnett Referred To Contact Physical Therapy Diagnoses Left lumbar pain Justin Grover NP [address] [place] [address] Phone: tel: fax: [address] [address] Referral ID Status Reason Start Date Expiration Date V isits Requested Visits Authorized [id number] Closed Evaluate and Treat 02/11/2023 03/12/2024 Encounter Details Date Type Department Care Team (Late st Contact Info) Description 02/12/2023 3:30 PM CDT Therapy [facility] Physical Therapy [address] [place] [phone] Madina Kenney, PT Left lumbar pain [...] on file Legal Sex Female 6:55 PM RADIO DIVISION OFFICER Gender Identity Female 06/06/2022 7:40 AM RADIO DIVISION OFFICER Sexual Orientation Not on file documented as of this encounter Progress Notes * Madina Gonzalez, PT - 02/12/2023 3:30 PM CDT Images from the original note were not included. Physical Therapy Progress Note 02/12/2023 Emily Guerrier 1995 27 y.o. female Bhakti Bryson MSN, ELECTRONIC ASSEMBLER-DC and Justin Grover APRN, COLOR TELEVISION CONSOLE MONITOR [address] [place] [address] Case Adjustor: Stephania Doyle ICD-9-CM ICD-10-CM 1. 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 She was instructed [...] treatmentfor this as well. 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 Since her last visit of PT and since fracturing her foot, has tried to do some exercises here and there as able. 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
--- OUTSIDE RECORDS SUMMARY | 2024-06-06 05:25 | XMS_ITS | Encounter Summary ---
Author Organization [facility] Address [address] [place] [address] Care Team Providers Care Third Rail Installer Name Role Phone No, Physician Unavailable Lorie Vanessa NP Primary Care Provider [phone] Reason for Visit * Reason Comments Follow-up ER; broken foot; ; Encounter Details Date Type Department Care Team ([facility] st Contact Info) Description 01/30/2023 9:45 AM CDT Office Visit [facility] Primary Care at [address] [place] [address] Lorie Vanessa NP [address] [place] [address] Closed displaced fracture of fifth metatarsal [...] on file Legal Sex Female 6:55 PM 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 She is currently wearing a walking boot. [...] Thought Content: Thought content normal. Lorie Vanessa [facility] BC Cosigned by Sultana Kahn [...] 12/02/2022 01/30/2023 levalbuterol (XOPENEX HFA) 45 mcg/actuation inhalerIndications:Housecalls Nurse shalini cough Inhale 1-2 puffs every 6 (six) hours as needed for wheezing Other 11/01/2022 01/30/2023 documented as of this encounter Care Teams Third Rail Installer Relationship Specialty Start Date End Date Lorie Vanessa NP [address] [place] [address] PCP - General Family Practice 05/29/22 No, Physician 06/08/21 documented as of this encounter
--- OUTSIDE RECORDS SUMMARY | 2024-06-06 05:25 | XMS_ITS | Encounter Summary ---
Author Organization [facility] Address [address] [place] [address] Care Team Providers Care Cutter Operator Asbestos Shingle Name Role Phone No, Physician Unavailable Lorie Vanessa NP Primary Care Provider Encounter Details Date Type Department Care Team (Late st Contact Info) Description 12/27/2022 Documentation [facility] Gastroenterology at [address] [place] [address] Cj Thomas MD [address] [place] [address] [address] [place], [place] [id number] Social History Tobacco Use Types Packs/Day Years Used Date Smoking Tobacco: Never Smokeless Tobacco: Never PHQ-2 Answer Date Recorded PHQ-2 Total Score (If total score is 3 or more points, staff should administer the PHQ-9) 1 12/11/2022 Comments No Sex and Gender Information Value Date Recorded Sex Assigned at Not on file Legal Sex Female 6:55 PM BANBURY MIXER OPERATOR Gender Identity Female 06/06/2022 7:40 AM BANBURY MIXER OPERATOR Sexual Orientation Not on file documented as of this encounter Progress Notes * Cj Thomas MD - 12/27/2022 12:32 PM CDT I would a prior authorization with Dr. Nawaf Yap, mentioned prior endoscopies without biopsiesof the esophagus, EGD has been improved, authorization # [id number], expires June 25, 2023. documented in this encounter Plan of Treatment Not on file documented as of this encounter Visit Diagnoses Not on filedocumented in this encounter Care Teams Cutter Operator Asbestos Shingle Relationship Specialty Start Date End Date Lorie Vanessa NP [address] [place] [id number] PCP - General Family Practice 05/29/22 No, Physician 06/08/21 documented as of this encounter
--- OUTSIDE RECORDS SUMMARY | 2024-06-06 05:25 | XMS_ITS | Encounter Summary ---
Author Organization [facility] Address [address] [place] [address] Phone Care Team Providers Care Deer Farmer Name Role Phone No, Physician Unavailable Lorie Vanessa NP Primary Care Provider [phone] Encounter Details Date Type Department Care Team (Late st Contact Info) Description 12/20/2022 Treatment [facility] Allergy and Immunology [address] [place] [address] Jackson Dodd MD PhD [address] [facility] [address] [place] [address] Allergic rhinitis due to animal hair and [...] on file Legal Sex Female 6:55 PM JOWL TRIMMER Gender Identity Female 06/06/2022 7:40 AM JOWL TRIMMER Sexual Orientation Not on file documented [...] trigger documented in this encounter Care Teams Deer Farmer Relationship Specialty Start Date End Date Lorie Vanessa NP [address] [place] [address] PCP - General Family Practice 05/29/22 No, Physician 06/08/21 documented as of this encounter
--- OUTSIDE RECORDS SUMMARY | 2024-06-06 05:25 | XMS_ITS | Encounter Summary ---
Author Organization [facility] Address [address] [place] [address] Care Team Providers Care Service Unit Operator Name Role Phone No, Physician Unavailable Lorie Vanessa NP Primary Care Provider [phone] Encounter Details Date Type Department Care Team (Late st Contact Info) Description 01/17/[address] [facility] Primary Care at [place] [address] [facility] [address] [place] [address] Lorie Vanessa NP [address] [place] [address] Social History Tobacco Use Types Packs/Day [...] file Legal Sex Female 6:55 PM ONLINE MERCHANDISING MANAGER Gender Identity Female 06/06/2022 7:40 AM ONLINE MERCHANDISING MANAGER Sexual Orientation Not on file documented [...] on filedocumented in this encounter Care Teams Service Unit Operator Relationship Specialty Start Date End Date Lorie Vanessa NP [address] [place] [address] PCP - General Family Practice 05/29/22 No, Physician 06/08/21 documented as of this encounter
--- OUTSIDE RECORDS SUMMARY | 2024-06-06 05:26 | XMS_ITS | Encounter Summary ---
Author Organization [facility] Healthcare Address [address] [place] [address] Care Team Providers Care Mine Inspector Federal Name Role Phone No, Physician Unavailable Lorie Vanessa NP Primary Care Provider Encounter Details Date Type Department Care Team (Late st Contact Info) Description 11/15/2022 Patient Self-Triage [facility] HealthCare/ Physicians [address] [place] [address] Mychart, Generic Provider [address] [place] [address] Social History Tobacco Use Types Packs/Day Years Used Date Smoking Tobacco: Never Smokeless Tobacco: Never PHQ-2 Answer Date Recorded PHQ-2 Total Score (If total score is 3 or more points, staff should administer the PHQ-9) 0 04/12/2022 Comments No Sex and Gender Information Value Date Recorded Sex Assigned at Not on file Legal Sex Female 6:55 PM MUSIC INDUSTRY INTERN Gender Identity Female 06/06/2022 7:40 AM MUSIC INDUSTRY INTERN Sexual Orientation Not on file documented as of this encounter Plan of Treatment Not on file documented as of this encounter Visit Diagnoses Not on filedocumented in this encounter Care Teams Mine Inspector Federal Relationship Specialty Start Date End Date Lorie Vanessa NP [address] [place] [address] PCP - General Family Practice 05/29/22 No, Physician 06/08/21 documented as of this encounter
--- OUTSIDE RECORDS SUMMARY | 2024-06-06 05:26 | XMS_ITS | Encounter Summary ---
Author Organization [facility] Address [address] [place] [address] Phone Care Team Providers Care Video Production Engineer Name Role Phone No, Physician Unavailable Lorie Vanessa NP Primary Care Provider [phone] Encounter Details Date Type Department Care Team (Late st Contact Info) Description 09/27/2022 Documentation [facility] Allergy and Immunology [address] [facility] [address] [place] [phone] Rogelio Bonds RMA Social History Tobacco Use Types Packs/Day Years Used Date Smoking Tobacco: Never Smokeless Tobacco: Never PHQ-2 Answer Date Recorded PHQ-2 Total Score (If total score is 3 or more points, staff should administer the PHQ-9) 0 04/12/2022 Comments No Sex and Gender Information Value Date Recorded Sex Assigned at Not on file Legal Sex Female 6:55 PM PATIENT SERVICES MANAGER Gender Identity Female 06/06/2022 7:40 AM PATIENT SERVICES MANAGER Sexual Orientation Not on file documented as of this encounter Progress Notes * Rogelio Hawk RMA - 09/27/2022 4:04 PM CDT Symbicort and Levalbuterol approved Case#[id number] Dates 08-28-2022 thru 09-27-2023 Pharmacy notified documented in this encounter Plan of Treatment Not on file documented as of this encounter Visit Diagnoses Not on filedocumented in this encounter Care Teams Video Production Engineer Relationship Specialty Start Date End Date Lorie Vanessa NP [address] [place] [address] PCP - General Family Practice 05/29/22 No, Physician 06/08/21 documented as of this encounter
--- OUTSIDE RECORDS SUMMARY | 2024-06-06 05:26 | XMS_ITS | Encounter Summary ---
Author Organization [facility] Address [address] [facility] [facility] [address] [place] [address] Care Team Providers Care Combine Driver Name Role Phone No, Physician Unavailable Lorie Vanessa NP Primary Care Provider [phone] Encounter Details Date Type Department Care Team (Late st Contact Info) Description 10/11/2022 Telephone [facility] Primary Care at [place] [address] [facility] [address] [place] [address] Lorie Vanessa NP [address] [place] [address] Social History Tobacco Use Types Packs/Day Years Used Date Smoking Tobacco: Never Smokeless Tobacco: Never PHQ-2 Answer Date Recorded PHQ-2 Total Score (If total score is 3 or more points, staff should administer the PHQ-9) 0 04/12/2022 Comments No Sex and Gender Information Value Date Recorded Sex Assigned at Not on file Legal Sex Female 6:55 PM CLOTH BLEACHING SUPERVISOR Gender Identity Female 06/06/2022 7:40 AM CLOTH BLEACHING SUPERVISOR Sexual Orientation Not on file documented as of this encounter Miscellaneous Notes * Telephone Encounter - Janelle Linda - 10/11/2022 1:00 PM CDT LVM for pt. We need to know where her most recent pap was done. We contacted Dr Garcia ([facility]) and they said they do not see any results. documented in this encounter Plan of Treatment Not on file documented as of this encounter Visit Diagnoses Not on filedocumented in this encounter Care Teams Combine Driver Relationship Specialty Start Date End Date Lorie Vanessa NP [address] [place] [address] PCP - General Family Practice 05/29/22 No, Physician 06/08/21 documented as of this encounter
--- OUTSIDE RECORDS SUMMARY | 2024-06-06 05:26 | XMS_ITS | Encounter Summary ---
Author Organization [facility] Address [address] [place] [address] Phone Care Team Providers Care Flat Lock Machine Operator Name Role Phone No, Physician Unavailable Lorie Vanessa NP Primary Care Provider [phone] Encounter Details Date Type Department Care Team (Late st Contact Info) Description 09/27/2022 [address]phone [facility] Allergy and Immunology [address] [facility] Medical Office Building [address] [place] [id number] Rogelio Bonds RMA Social History Tobacco Use Types Packs/Day Years Used Date Smoking Tobacco: Never Smokeless Tobacco: Never PHQ-2 Answer Date Recorded PHQ-2 Total Score (If total score is 3 or more points, staff should administer the PHQ-9) 0 04/12/2022 Comments No Sex and Gender Information Value Date Recorded Sex Assigned at Not on file Legal Sex Female 6:55 PM SPORTS INTERN Gender Identity Female 06/06/2022 7:40 AM SPORTS INTERN Sexual Orientation Not on file documented as of this encounter Miscellaneous Notes * Telephone Encounter - Rogelio Hawk RMA - 09/27/2022 4:04 PM CDT error documented in this encounter Plan of Treatment Not on file documented as of this encounter Visit Diagnoses Not on filedocumented in this encounter Care Teams Flat Lock Machine Operator Relationship Specialty Start Date End Date Lorie Vanessa NP [address] [place] [address] PCP - General Family Practice 05/29/22 No, Physician 06/08/21 documented as of this encounter
--- OUTSIDE RECORDS SUMMARY | 2024-06-06 05:26 | XMS_ITS | Encounter Summary ---
Author Organization [facility] Address [address] [place] [address] Phone Care Team Providers Care Tax Representative Name Role Phone No, Physician Unavailable Lorie Vanessa NP Primary Care Provider [phone] Encounter Details Date Type Department Care Team (Late st Contact Info) Description 12/20/2022 Telephone [facility] Allergy and Immunology [address] [facility] [address] [place] [address] Karlene Montalvo MA Social History Tobacco Use Types Packs/Day Years Used Date Smoking Tobacco: Never Smokeless Tobacco: Never PHQ-2 Answer Date Recorded PHQ-2 Total Score (If total score is 3 or more points, staff should administer the PHQ-9) 1 12/11/2022 Comments No Sex and Gender Information Value Date Recorded Sex Assigned at Not on file Legal Sex Female 6:55 PM BAKERY CHEF Gender Identity Female 06/06/2022 7:40 AM BAKERY CHEF Sexual Orientation Not on file documented as of this encounter Miscellaneous Notes * Telephone Encounter - Karlene Montalvo MA - 12/20/2022 2:05 PM CDT Called Patient left VoiceMail about Injections getting started MALIKA GARCIA 12/20/22 2:07PM documented in this encounter Plan of Treatment Not on file documented as of this encounter Visit Diagnoses Not on filedocumented in this encounter Care Teams Tax Representative Relationship Specialty Start Date End Date Lorie Vanessa NP [address] [place] [phone] PCP - General Family Practice 05/29/22 No, Physician 06/08/21 documented as of this encounter
--- OUTSIDE RECORDS SUMMARY | 2024-06-06 05:26 | XMS_ITS | Encounter Summary ---
Author Organization [facility] Address [address] [place] [address] Care Team Providers Care Metal Bonding Crib Attendant Name Role Phone No, Physician Unavailable Lorie Vanessa NP Primary Care Provider Encounter Details Date Type Department Care Team (Late st Contact Info) Description 11/21/2022 Orders Only [facility] Nuclear Medicine [address] [place] [address] Dereck Nichols, DO [address] [place] [address] Social History Tobacco Use Types Packs/Day Years Used Date Smoking Tobacco: Never Smokeless Tobacco: Never PHQ-2 Answer Date Recorded PHQ-2 Total Score (If total score is 3 or more points, staff should administer the PHQ-9) 0 04/12/2022 Comments No Sex and Gender Information Value Date Recorded Sex Assigned at Not on file Legal Sex Female 6:55 PM PEDIATRIC DENTAL HYGIENIST Gender Identity Female 06/06/2022 7:40 AM PEDIATRIC DENTAL HYGIENIST Sexual Orientation Not on file documented as [...] PM T: ??11/23/2022 2:48 PM Report ID: [id number] Reading Location: ??[id number] Procedure Note Zaheer Berry Jr., MD - [...] Zaheer Berry M.D. CH: CH Report ID: [id number] Reading Location: [id number] us Dereckmarlys Elaineik DO IMG NM PROCEDURES Final Result documented in this encounter Visit Diagnoses Not on filedocumented in this encounter Additional Health Concerns Infection Onset Date Last Indicated Resolved Time COVID: Suspected 05/29/2023 05/29/2023 05/29/2023 5:07 PM PEDIATRIC DENTAL HYGIENIST COVID: Suspected 07/05/2023 07/05/2023 07/05/2023 8:07 PM PEDIATRIC DENTAL HYGIENIST C. difficile suspected 03/05/2024 03/05/202403/05 5:29 PM CDT documented as of this encounter Care Teams Metal Bonding Crib Attendant Relationship Specialty Start Date End Date Lorie Vanessa NP [address] [place] [address] PCP - General Family Practice 05/29/22 No, Physician 06/08/21 documented as of this encounter
--- OUTSIDE RECORDS SUMMARY | 2024-06-06 05:26 | XMS_ITS | Encounter Summary ---
Author Organization [facility] Address [address] [facility] [address] [place] [address] Care Team Providers Care Shooter'S Helper Name Role Phone No, Physician Unavailable Lorie Vanessa NP Primary Care Provider [phone] Reason for Referral * Diagnostic Imaging (Routine) - Closed Specialty Diagnoses / Procedures Referred By Cyn burnett Referred To Contact Diagnoses Acute left ankle pain Procedures XR Ankle Left 3+ Vw Lorie Vanessa NP [address] [place] [address] Phone: tel: fax: [address] [address] Referral ID Status Reason Start Date Expiration Date Visits Re quested Visits Authorized [id number] Closed 09/10/2022 10/10/2023 1 1 Encounter Details Date Type Department Care Team (Late st Contact Info) Description 09/10/2022 Telephone [facility] Primary Care at [place] [id number] [address] Lorie Vanessa NP [address] [address] Social History Tobacco Use Types Packs/Day Years Used Date Smoking Tobacco: Never Smokeless Tobacco: Never PHQ-2 Answer Date Recorded PHQ-2 Total Score (If total score is 3 or more points, staff should administer the PHQ-9) 0 04/12/2022 Comments No Sex and Gender Information Value Date Recorded Sex Assigned at Not on file Legal Sex Female 6:55 PM CROSSING FLAGMAN Gender Identity Female 06/06/2022 7:40 AM CROSSING FLAGMAN Sexual Orientation Not on file documented as of this encounter Miscellaneous Notes * Telephone Encounter - Shilo Michael MA - 09/10/2022 7:39 AM CDT [employer] message sent to pt. * Telephone Encounter [...] her to see orthopedic surgeon, , in [place]. * Telephone Encounter - Lorie Vanessa NP - 09/10/2022 7:20 AM CDT ----- Message from Shilo Michael MA sent at 09/10/2022 7:07 AM CDT ----- Regarding: FW: Recent fall Contact: Please advise. Appt? Teledoc? ----- Message ----- From: Emily Guerrier Sent: 09/06/2022 10:59 PM CDT To: [facility] Pcp [place] Subject: Recent fall I saw that [...] D: ??09/14/2022 12:38 PM T: Report ID: [id number] Reading Location: ??[id number] Procedure Note Zaheer Berry Jr., MD - [...] by Zaheer Berry M.D. T: Report ID: [id number] Reading Location: [place] [address] Lorie Vanessa NP IMG XR PROCEDURES Final Result documented in this encounter Visit Diagnoses Diagnosis Acute pain of left knee- Primary Acute left ankle pain Acute left ankle pain documented in this encounter Care Teams Shooter'S Helper Relationship Specialty Start Date End Date Lorie Vanessa, SHOTBLASTER [address] [place] [address] PCP - General Family Practice 05/29/22 No, Physician 06/08/21 documented as of this encounter
--- OUTSIDE RECORDS SUMMARY | 2024-06-06 05:26 | XMS_ITS | Encounter Summary ---
Author Organization [facility] Address [address] [facility] [address] [place] [address] Care Team Providers Care Attending Anesthesiologist Name Role Phone No, Physician Unavailable Lorie Vanessa NP Primary Care Provider [phone] Encounter Details Date Type Department Care Team (Late st Contact Info) Description 10/08/2022 Telephone [facility] Primary Care at [place] [address] [facility] [address] [place] [address] Lorie Vanessa NP [address] [place] [address] Social History Tobacco Use Types Packs/Day Years Used Date Smoking Tobacco: Never Smokeless Tobacco: Never PHQ-2 Answer Date Recorded PHQ-2 Total Score (If total score is 3 or more points, staff should administer the PHQ-9) 0 04/12/2022 Comments No Sex and Gender Information Value Date Recorded Sex Assigned at Not on file Legal Sex Female 6:55 PM SCHOOL CAFETERIA COOK HEAD Gender Identity Female 06/06/2022 7:40 AM SCHOOL CAFETERIA COOK HEAD Sexual Orientation Not on file documented as of this encounter Miscellaneous Notes * Telephone Encounter - Shilo Michael MA - 10/08/2022 2:14 PM CDT 2nd pap Faxed request for most recent Refer to prior request for provider information. documented in this encounter Plan of Treatment Not on file documented as of this encounter Visit Diagnoses Not on filedocumented in this encounter Care Teams Attending Anesthesiologist Relationship Specialty Start Date End Date Lorie Vanessa NP [address] [place] [address] PCP - General Family Practice 05/29/22 No, Physician 06/08/21 documented as of this encounter
--- OUTSIDE RECORDS SUMMARY | 2024-06-06 05:26 | XMS_ITS | Encounter Summary ---
Author Organization [facility] Address [address] [facility] [address] [place] [address] Care Team Providers Care Operations Project Manager Name Role Phone No, Physician Unavailable Lorie Vanessa NP Primary Care Provider [phone] Reason for Visit * Reason Comments Annual Exam Encounter Details Date Type Department Care Team (Late st Contact Info) Description 12/11/2022 2:30 PM CDT Office Visit [facility] Primary Care at [address] [place] [address] Lorie Vanessa NP [address] [place] [address] Annual physical exam (Primary Dx); Nausea; [...] on file Legal Sex Female 6:55 PM PAPER ROLLER Gender Identity Female 06/06/2022 7:40 AM PAPER ROLLER Sexual Orientation Not on file documented as [...] appointment for EGD and to follow-up with snack stewardess, , as recommended. Orders: - ondansetron ODT [...] & Plan: Chronic-encouraged to keep appointment with cost manager, Dr. Lin, on 01/11/2023. Chronic left-sided low back pain without sciatica Assessment & Plan: Chronic, stable-encouraged to use OTC medication as directed as needed. Advised if worsening symptoms, can pursue imaging to further evaluate. Constipation, unspecified constipation type Assessment & Plan: Chronic, stable-encouraged diet high in fiber, 20-30 g per day. Advised to keep scheduled appointment for EGD/colonoscopy with snack stewardess, Dr. Thomas. Diarrhea, unspecified type Assessment & Plan: Chronic, stable-encouraged diet high in fiber, 20-30 g per day. Advised to keep scheduled appointment for EGD/colonoscopy with snack stewardess, Dr. Thomas. Dizziness Assessment & Plan: Chronic, improved-will monitor for worsening symptoms, can pursue further testing if needed. Reviewed recent lab work. Encouraged to follow-up with information systems security manager as recommended. GALEANO (dyspnea on exertion) Assessment & Plan: Chronic, stable-will monitor for worsening symptoms and can pursue additional testing/refer to pulmonology if/when needed. Frequent infections Assessment & Plan: Chronic, stable-continued on Augmentin, cetirizine, and Flonase per supervisor quality control, considering SCIT. Encouraged to follow-up with fermentologist as recommended. Hemorrhoids, unspecified hemorrhoid type Assessment & Plan: Chronic, currently asymptomatic-encouraged to keep scheduled appointment for colonoscopy and to follow-up with snack stewardess, Dr. Thomas, as recommended. Gastroesophageal reflux disease without esophagitis Assessment & Plan: Chronic, stable, controlled with medication-continued on pantoprazole and famotidine. Orthostatic hypotension Assessment & Plan: Chronic, stable-encouraged adequate hydration and to rise slowly from sitting to standing position. Right upper quadrant pain Assessment & Plan: Chronic, stable-continued on cromolyn, pantoprazole, and famotidine. Encouraged to keep appointmentfor EGD/colonoscopy and to follow-up with snack stewardess, Dr. Thomas, as recommended. PCOS (polycystic ovarian syndrome) Assessment & Plan: Chronic-encouraged to keep appointment with cost manager, Dr. Lin, on 01/11/2023. Tachycardia, unspecified Assessment & Plan: Chronic, improved/controlled on medication-continued on propranolol per cardiology. Encouraged to follow-up with information systems security manager as recommended. BMI Follow-up includes: nutrition counseling and exercise counseling. Subjective: Emily Guerrier is a 27 y.o. female here for her annual PE, initially establish care 04/12/2022, last seen on 09/03/2022. HPI Chief Complaint Patient presents with Annual Exam Her chronic conditions/PMH includes PCOS (was seeing a cost manager at [facility], will be establishing with Dr. Lin), tachycardia/palpitations (propranolol, magnesium) allergic rhinitis (cetirizine, Nasacort, seeing switchboard wire worker helper, will be starting SCIT), recurrent infections (Augmentin, seeing supervisor quality control), vitamin-D deficiency (vitamin D3 1000 IU), bipolar/depression [...] Thought Content: Thought content normal. Lorie Vanessa SNOW PLOW TRACTOR OPERATOR BC documented in this encounter Miscellaneous Notes [...] propranolol per cardiology. Encouraged to follow-up with information systems security manager as recommended. * Assessment & Plan Note - Lorie Vanessa NP - 12/12/2022 5:42 AM CDTAssociated Problem(s): Right upper quadrant pain Chronic, stable-continued on cromolyn, pantoprazole, and famotidine. Encouraged to keep appointmentfor EGD/colonoscopy and to follow-up with snack stewardess, Dr. Thomas, as recommended. * Assessment & Plan Note - Lorie Vanessa NP - 12/12/2022 5:41 AM CDTAssociated Problem(s): PCOS (polycystic ovarian syndrome) Chronic-encouraged to keep appointment with cost manager, Dr. Lin, on 01/11/2023. * Assessment & [...] appointment for EGD and to follow-up with snack stewardess, , as recommended. * Assessment & Plan Note - Lorie Vanessa NP - 12/12/2022 5:40 AM CDTAssociated Problem(s): Morbid obesity with BMI of 45.0-49.9, adult (HCC) (Resolved 12/12/2022) * Assessment & Plan Note - Lorie Vanessa NP - 12/12/2022 5:40 AM CDTAssociated Problem(s): Hemorrhoids Chronic, currently asymptomatic-encouraged to keep scheduled appointment for colonoscopy and to follow-up with snack stewardess, Dr. Thomas, as recommended. * Assessment & Plan Note - Lorie Vanessa NP - 12/12/2022 5:40 AM CDTAssociated Problem(s): Gastroesophageal reflux disease without esophagitis Chronic, stable, controlled with medication-continued on pantoprazole and famotidine. * Assessment & Plan Note - Lorie Vanessa NP - 12/12/2022 5:39 AM CDTAssociated Problem(s): Frequent infections Chronic, stable-continued on Augmentin, cetirizine, and Flonase per supervisor quality control, considering SCIT. Encouraged to follow-up with fermentologist as recommended. * Assessment & Plan Note [...] recent lab work. Encouraged to follow-up with information systems security manager as recommended. * Assessment & Plan Note - Lorie Vanessa NP - 12/12/2022 5:37 AM CDTAssociated Problem(s): Diarrhea Chronic, stable-encouraged diet high in fiber, 20-30 g per day. Advised to keep scheduled appointment for EGD/colonoscopy with snack stewardess, Dr. Thomas. * Assessment & Plan Note - Lorie Vanessa NP - 12/12/2022 5:37 AM CDTAssociated Problem(s): Constipation Chronic, stable-encouraged diet high in fiber, 20-30 g per day. Advised to keep scheduled appointment for EGD/colonoscopy with snack stewardess, Dr. Thomas. * Assessment & Plan Note [...] Problem(s): Amenorrhea Chronic-encouraged to keep appointment with cost manager, Dr. Lin, on 01/11/2023. * Assessment & [...] 25 hydroxy (10/08/2023 11:42 AM CDT) Pathologist [facility] Vitamin D 25-OH 35.0 30.0 - 80.0 ng/mL Blood 10/08/2023 11:4 2 AM CDT 10/08/2023 2:43 PM CDT us Lorie Vanessa DEPUTY ASSESSOR LAB BLOOD ORDERABLES Final Resul t [facility] [address] [facility] Department [place] [address] * (ABNORMAL) Lipid panel (10/08/2023 [...] on 2018. Testing performed by: [facility], [address] [place] [address]., [address] Triglycerides 196(H) <=149 mg/dL [facility] Comment: [...] revised on 2018. Testing performed by: [address] [address] HDL 33(L) >=40 mg/dL [facility]AN Comment: Interpretive [...] revised on 2018. Testing performed by: [address] [address] LDL, calculated 107 <=129 mg/dL [facility]AN Comment: [...] revised on 2018. Testing performed by: [address] [address] Non-HDL Cholesterol 146 mg/dL [facility]AN Comment: Interpretive [...] revised on 2018. Testing performed by: [address] [address] Chol/HDL ratio 5 [facility] Comment:Testing performed by : [address] [address] Blood 10/08/2023 11:4 2 AM CDT 10/08/2023 1:50 PM CDT us Lorie Vanessa NP LAB BLOOD ORDERABLES Final Resul t Performing Organization Address [facility] de Phone Number [facility] [address] [facility] Department [place] [address] * Thyroid Function Tensas (10/08/2023 11:42 AM CDT) TSH 1.42 0.30 - 4.20 mcIUnit/mL Comment:Testing performed by : [address] [address] Blood 10/08/2023 11:4 2 AM CDT 10/08/2023 1:50 PM CDT Lorie Vanessa NP LAB BLOOD ORDERABLES Final Resul t Performing Organization Address [facility] Co de Phone Number [facility] [address] [facility] Department [place] [address] documented in this encounter Visit Diagnoses Diagnosis [...] 3 added in this encounter Care Teams Operations Project Manager Relationship Specialty Start Date End Date Shellman, Lorie R., DEPUTY ASSESSOR [address] [place] [address] PCP - General Family Practice 05/29/22 No, Physician 06/08/21 documented as of this encounter
--- OUTSIDE RECORDS SUMMARY | 2024-06-06 05:26 | XMS_ITS | Encounter Summary ---
Author Organization [facility] Address [address] [place] [address] Care Team Providers Care Filling Technician Name Role Phone No, Physician Unavailable Lorie Vanessa NP Primary Care Provider [phone] Reason for Visit * Diagnostic Imaging (Routine) - Closed Specialty Diagnoses / Procedures Referred By Cyn burnett Referred To Contact Procedures NM Hepatobiliary Imaging Dereck Rojo, DO [address] [place] [address] Phone: tel: fax: [address] [phone] Referral ID Status Reason Start Date Expiration Date Visits Re quested Visits Authorized [id number] Closed 11/21/2022 12/21/2023 2 1 Encounter Details Date Type Department Care Team (Latest Contact Info) Description 11/23/2022 11:46 AM CDT - 11/23/2022 11:59 PM CDT Hospital Encounter [facility] Nuclear Medicine [address] [place] [address] Discharge Disposition: Discharge to home or [...] on file Legal Sex Female 6:55 PM GARNISHER Gender Identity Female 06/06/2022 7:40 AM GARNISHER Sexual Orientation Not on file documented as [...] 11/23/2022 documented in this encounter Care Teams Filling Technician Relationship Specialty Start Date End Date Lorie Vanessa NP [address] [place] [address] PCP - General Family Practice 05/29/22 No, Physician 06/08/21 documented as of this encounter
--- OUTSIDE RECORDS SUMMARY | 2024-06-06 05:26 | XMS_ITS | Encounter Summary ---
Author Organization [facility] Address [address] [place] [address] Care Team Providers Care Front Desk Specialist Name Role Phone No, Physician Unavailable Lorie Vanessa NP Primary Care Provider Reason for Referral * Diagnostic Imaging (Routine) - Closed Specialty Diagnoses / Procedures Referred By Cyn burnett Referred To Contact Diagnoses Acute left ankle pain Procedures XR Ankle Left 3+ Vw Lorie Vanessa NP [address] [place] [address] Phone: tel: fax: [address] [phone] Referral ID Status Reason Start Date Expiration Date Visits Re quested Visits Authorized [id number] Closed 09/10/2022 10/10/2023 1 1 Reason for Visit * Diagnostic Imaging (Routine) - Closed Specialty Diagnoses / Procedures Referred By Cyn burnett Referred To Contact Diagnoses Acute left ankle pain Procedures XR Ankle Left 3+ Vw Lorie Vanessa NP [address] [place] [address] Phone: tel: fax: [address] [phone] Referral ID Status Reason Start Date Expiration Date Visits Re quested Visits Authorized [id number] Closed 09/10/2022 10/10/2023 1 1 Encounter Details Date Type Department Care Team (Latest Contact Info) Description 09/14/2022 9:05 AM CDT - 09/14/2022 11:59 PM CDT Hospital Encounter [facility] Diagnostic Imaging [address] [place] [address] Acute left ankle pain Discharge Disposition: Discharge [...] on file Legal Sex Female 6:55 PM PLANT SENIOR MANAGER Gender Identity Female 06/06/2022 7:40 AM PLANT SENIOR MANAGER Sexual Orientation Not on file documented [...] D: ??09/14/2022 12:38 PM T: Report ID: [id number] Reading Location: [id number] Procedure Note Zaheer Berry Jr., MD - [...] - Electronically signed by Zaheer Berry M.D. CH T: Report ID: [id number] Reading Location: [id number] us Lorie Vanessa SENIOR ENGINEERING ASSOCIATE IMG XR PROCEDURES Final Result documented in this encounter Visit Diagnoses Diagnosis Acute left ankle pain documented in this encounter Care Teams Front Desk Specialist Relationship Specialty Start Date End Date Lorie Vanessa, DUDLEY [address] [place] [address] PCP - General Family Practice 05/29/22 No, Physician 06/08/21 documented as of this encounter
--- OUTSIDE RECORDS SUMMARY | 2024-06-06 05:26 | XMS_ITS | Encounter Summary ---
Author Organization [facility] Address [address] [place] [address] Care Team Providers Care Network Support Technician Name Role Phone No, Physician Unavailable Lorie Vanessa NP Primary Care Provider [phone] Encounter Details Date Type Department Care Team (Late st Contact Info) Description 09/17/2022 Telephone [facility] Gastroenterology at [address] [place] [address] Cj Thomsa MD [address] [place] [address] [address] [place], [place] [id number] Social History Tobacco Use Types Packs/Day Years Used Date Smoking Tobacco: Never Smokeless Tobacco: Never PHQ-2 Answer Date Recorded PHQ-2 Total Score (If total score is 3 or more points, staff should administer the PHQ-9) 0 04/12/2022 Comments No Sex and Gender Information Value Date Recorded Sex Assigned at Not on file Legal Sex Female 6:55 PM MITOCHONDRIAL DISORDERS COUNSELOR Gender Identity Female 06/06/2022 7:40 AM MITOCHONDRIAL DISORDERS COUNSELOR Sexual Orientation Not on file documented as of this encounter Miscellaneous Notes * Telephone Encounter - Ramya Castañeda MA - 09/21/2022 3:12 PM CDT Spoke to Pt. Regarding the US result. Pt is informed and verbally understood. * Telephone Encounter - Ramya Castañeda MA - 09/17/2022 4:27 PM CDT LVM [...] filedocumented in this encounter Care Teams Network Support Technician Relationship Specialty Start Date End Date Lorie Vanessa NP [address] [place] [address] PCP - General Family Practice 05/29/22 No, Physician 06/08/21 documented as of this encounter
--- OUTSIDE RECORDS SUMMARY | 2024-06-06 05:26 | XMS_ITS | Encounter Summary ---
Author Organization [facility] Address [address] [place] [address] Care Team Providers Care Head Teller Name Role Phone No, Physician Unavailable Lorie Vanessa NP Primary Care Provider [phone] Encounter Details Date Type Department Care Team (Late st Contact Info) Description 12/20/[address] [facility] Primary Care at [address] [place] [address] Shilo Michael MA Social History Tobacco Use Types Packs/Day Years Used Date Smoking Tobacco: Never Smokeless Tobacco: Never PHQ-2 Answer Date Recorded PHQ-2 Total Score (If total score is 3 or more points, staff should administer the PHQ-9) 1 12/11/2022 Comments No Sex and Gender Information Value Date Recorded Sex Assigned at Not on file Legal Sex Female 6:55 PM QUANTITY SURVEYOR Gender Identity Female 06/06/2022 7:40 AM QUANTITY SURVEYOR Sexual Orientation Not on file documented as of this encounter Miscellaneous Notes * Telephone Encounter - Shilo Michael MA - 12/20/2022 10:30 AM CDT Sent Ads-[employer] message to pt asking for updated provider name for pap as former name given results inreturn fax of no results on file. Pending pt response. documented in this encounter Plan of Treatment Not on file documented as of this encounter Visit Diagnoses Not on filedocumented in this encounter Care Teams Head Teller Relationship Specialty Start Date End Date Lorie Vanessa NP [address] [place] [address] PCP - General Family Practice 05/29/22 No, Physician 06/08/21 documented as of this encounter
--- OUTSIDE RECORDS SUMMARY | 2024-06-06 05:26 | XMS_ITS | Encounter Summary ---
Author Organization [facility] Address [address] [place] [address] Phone Care Team Providers Care Medical Communication Specialist Name Role Phone No, Physician Unavailable Lorie Vanessa NP Primary Care Provider [phone] Reason for Visit * Reason Comments Follow-up Encounter Details Date Type Department Care Team (Late st Contact Info) Description 12/03/2022 10:40 AM CDT Office Visit [facility] Allergy and Immunology [address] [place] [address] [place] Dodd MD PhD [address] [place] [address] Allergic conjunctivitis, bilateral (Primary Dx); Allergic rhinitis [...] file Legal Sex Female 6:55 PM GAS SYSTEM OPERATOR Gender Identity Female 06/06/2022 7:40 AM GAS SYSTEM OPERATOR Sexual Orientation Not on file documented [...] Testing from previous visits were reviewed in [facility]. Notably: CBC with Auto Differential 11/20/22 All values within normal limits except: WBC 11.4 Plt 416 MPV 8.3 Neutrophil abs 7.6 Labs 11/20/22 IgE, IgG, IgA, IgM, Immunoglobulin IgG Subclasses, Strep Pneumoniae antibody serotypes, Haemophilusinfluenza B Ab IgG, tetanus antibody IgG, Lymphocyte subpopulations 7, alpha gal, tryptase all within normal limits Skin Testing 09/04/22 Skin testing was positive to [place], oak, Bermuda grass, brome grass, Jorge L grass, [place] bluegrass, Timi grass, cockleburr, lambs quarter, anderson aria, slovenian plantain, alternaria, aspergillus, cladosporium, curvularia, epicoccum, fusarium, [...] evaluation. She is using a topical antibacterial [id number]-[id number] medication. Follow Up: Follow up in 4-6 weeks Orders Placed This Encounter Ambulatory referral to ENT Recurrent sinusitis Standing Status: Future Standing Expiration Date: 12/04/2023 Referral Priority: Routine Referral Type: Consultation Referral Reason: Specialty Services Required Referral Location: [facility] (All Locations) Requested Specialty: Otolaryngology Number of [...] as of this encounter Care Teams Medical Communication Specialist Relationship Specialty Start Date End Date Lorie Vanessa NP [address] [place] [address] PCP - General Family Practice 05/29/22 No, Physician 06/08/21 documented as of this encounter
--- OUTSIDE RECORDS SUMMARY | 2024-06-06 05:26 | XMS_ITS | Encounter Summary ---
Author Organization [facility] Address [address] [place] [address] Care Team Providers Care Video Surveillance Technician Name Role Phone No, Physician Unavailable Lorie Vanessa NP Primary Care Provider [phone] Encounter Details Date Type Department Care Team (Late st Contact Info) Description 09/04/2022 11:10 AM CDT [facility] at the [address] [place] [address] [address] Frequent infections; Upper abdominal pain; [...] on file Legal Sex Female 6:55 PM SOUS CHEF Gender Identity Female 06/06/2022 7:40 AM SOUS CHEF Sexual Orientation Not on file documented [...] CDT 09/04/2022 1:10 PM CDT us [place] MD PhD LAB BLOOD ORDERABLE S Final Result Performing Organization Address City/State/[facility] Co de Phone Number [facility] Department [place] [address] * Differential, auto (09/04/2022 11:30 AM CDT) Neutrophil abs 4.8 1.7 - 6.5 K/cumm [facility] Imm gran abs 0.0 0.0 - 0.1 K/cumm [facility] Lymphocyte abs 2.5 0.8 - 3.3 K/cumm [facility] Monocyte abs 0.7 0.2 - 0.8 K/cumm [facility] Eosinophil abs 0.2 0.0 - 0.5 K/cumm [facility] Basophil abs 0.1 0.0 - 0.1 K/cumm [facility] Neutrophil pct 57.9 % [facility] Comment: Interpretive Data Percent cell count reference ranges are not reported, since discordance with absolute values may lead to misinterpretation of CBC data. Current Interpretive Data was last revised on 2017. Imm gran pct 0.4 % [facility] Comment: Interpretive Data Percent cell count reference ranges are not reported, since discordance with absolute values may lead to misinterpretation of CBC data. Current Interpretive Data was last revised on 2017. Lymphocyte pct 30.8 % [facility] Comment: Interpretive Data Percent cell count reference ranges are not reported, since discordance with absolute values may lead to misinterpretation of CBC data. Current Interpretive Data was last revised on 2017. Monocyte pct 8.3 % [facility] Comment: Interpretive Data Percent cell count reference ranges are not reported, since discordance with absolute values may lead to misinterpretation of CBC data. Current Interpretive Data was last revised on 2017. Eosinophil pct 1.9 % [facility] Comment: Interpretive Data Percent cell count reference ranges are not reported, since discordance with absolute values may lead to misinterpretation of CBC data. Current Interpretive Data was last revised on 2017. Basophil pct 0.7 % [facility] Comment: Interpretive Data Percent cell count reference ranges are not reported, since discordance with absolute values may lead to misinterpretation of CBC data. Current Interpretive Data was last revised on 2017. Blood 09/04/2022 11:3 0 AM CDT 09/04/2022 1:05 PM CDT us [place] Elliott MD PhD LAB BLOOD ORDERABLE S Final Result [facility] Department [place] [address] * IgE (09/04/2022 11:30 AM CDT) IgE 56.6 1.0 - 100.0 IUnits/mL [facility] Blood 09/04/2022 11:3 0 AM CDT 09/04/2022 1:05 PM CDT [place] MD PhD LAB BLOOD ORDERABLE S Final Result Performing Organization Address [facility] de Phone Number [facility] [place] [address] * Galactose alpha 1,3 galactose IgE (09/04/2022 11:30 AM CDT) RAST, zyqaxndwl-bzowe-5 ,3-galactose <0.10 <0.70 kUnits/L [facility] Comment: Class 0 (Negative <0.10) Test Performed by: [place] [address] Peoplesoft Programmer: Lexx Pierre M.D. Ph.D.; CLIA# [id number] Blood 09/04/2022 11:3 0 AM CDT 09/04/2022 4:03 PM CDT [place] Elliott MD PhD LAB BLOOD ORDERABLE S Final Result Performing Organization Address [facility] [place] [address] * Tryptase (09/04/2022 11:30 AM CDT) Tryptase Level 2.7 <11.5 ng/mL [facility] Comment: Test Performed by: [place] [address] Peoplesoft Programmer: Lexx Pierre M.D. Ph.D.; CLIA# [id number] Blood 09/04/2022 11:3 0 AM CDT 09/04/2022 4:15 PM CDT [place] Elliott MD PhD LAB BLOOD ORDERABLE S Final Result Performing Organization Address [facility] Co de Phone Number [facility] Department [place] [address] * (ABNORMAL) CBC with auto differential (09/04/2022 11:30 AM CDT) [facility] WBC 8.2 3.8 - 9.9 K/cumm [facility] Hgb 13.1 11.9 - 15.5 g/dL [facility] Hct 40.7 35.6 - 45.5 % [facility] Plt 400 150 - 400 K/cumm [facility] MPV 9.0(L) 9.1 - 12.3 fL [facility] RBC 4.75 3.90 - 5.20 M/cumm [facility] MCV 85.7 81.3 - 96.4 fL [facility] MCH 27.6 27.1 - 33.3 pg [facility] MCHC 32.2(L) 32.3 - 35.7 g/dL [facility] RDW CV 12.6 11.1 - 14.9 % [facility] RDW SD 39.2 35.7 - 48.1 fL [facility] NRBC abs 0.00 0.00 - 0.01 K/cumm [facility] Blood 09/04/2022 11:3 0 AM CDT 09/04/2022 1:05 PM CDT [place] MD PhD LAB BLOOD ORDERABLE S Final Result Performing Organization Address [facility]/ZIP Co de Phone Number [facility] Department [place] [address] * Comprehensive metabolic panel (09/04/2022 11:30 AM CDT) [facility] Sodium 142 135 - 145 mmol/L [facility] Potassium, pl 3.9 3.3 - 4.9 mmol/L [facility] Chloride 106 97 - 110 mmol/L [facility] CO2 28 22 - 32 mmol/L [facility] Anion gap 8 2 - 15 mmol/L [facility] BUN 9 8 - 25 mg/dL [facility] Creatinine 0.68 0.60 - 1.10 mg/dL [facility] Glucose 85 70 - 199 mg/dL [facility] Comment: Interpretive Data Fasting glucose [...] 2022. Calcium 9.2 8.5 - 10.3 mg/dL [facility] Bilirubin, total 0.2 0.1 - 1.2 mg/dL [facility] Protein, pl 7.3 6.5 - 8.5 g/dL [facility] Albumin 4.2 3.5 - 5.0 g/dL [facility] Alk phos 93 40 - 130 Units/L [facility] ALT 16 7 - 45 Units/L [facility] AST 16 10 - 45 Units/L [facility] Blood 09/04/2022 11:3 0 AM CDT 09/04/2022 1:05 PM CDT us [place] MD PhD LAB BLOOD ORDERABLE S Final Result [facility] Department [place] [address] * IgG (09/04/2022 11:30 AM CDT) Immunoglobulin G 1,066.0 700.0 - 1,600.0 mg/dL [facility] Blood 09/04/2022 11:3 0 AM CDT 09/04/2022 1:05 PM CDT us [place] MD PhD LAB BLOOD ORDERABLE S Final Result [facility] Department [place] [address] * IgA (09/04/2022 11:30 AM CDT) Pathologist [facility] Immunoglobulin A 229.0 70.0 - 400.0 mg/dL [facility] Blood 09/04/2022 11:3 0 AM CDT 09/04/2022 1:05 PM CDT Narrative [facility] - 09/04/2022 2:33 PM CDT Send to [facility] lab for more sensitive test (lower limit of detection) [place] MD PhD LAB BLOOD ORDERABLE S Final Result Performing Organization Address City/[facility]/ZIP Co de Phone Number [facility] Department [place] [address] * IgM (09/04/2022 11:30 AM CDT) [facility] Immunoglobulin M 85.0 40.0 - 230.0 mg/dL [facility] Blood 09/04/2022 11:3 0 AM CDT 09/04/2022 1:05 PM CDT [place] MD PhD LAB BLOOD ORDERABLE S Final Result [facility] Department [place] [address] * Immunoglobulin IgG subclasses (09/04/2022 11:30 AM CDT) IgG 1033 767 - 1590 mg/dL [facility] IgG, fraction 1 597 341 - 894 mg/dL [facility] IgG, fraction 2 283 171 - 632 mg/dL [facility] IgG, fraction 3 43.9 18.4 - 106.0 mg/dL [facility] IgG, fraction 4 11.6 2.4 - 121.0 mg/dL [facility] Comment: Test Performed by: [facility] [address] [place] [address] Peoplesoft Programmer: Lexx Pierre M.D. Ph.D.; IA# [id number] Blood 09/04/2022 11:3 0 AM CDT 09/04/2022 4:10 PM CDT us [place] MD PhD LAB BLOOD ORDERABLE S Final Result [facility] Department [place] [address] * Strep pneumoniae antibody serotypes (09/04/2022 11:30 [...] developed and its performance characteristics determined by [facility] in a manner consistent with CLIA requirements. This test has not been cleared or approved by the U.S. Food and Drug Administration. Test Performed by: [place] [address] Peoples[employer] Programmer: Lexx Pierre M.D. Ph.D.; CLIA# [id number] Blood 09/04/2022 11:3 0 AM CDT 09/04/2022 4:08 PM CDT us [place] MD PhD LAB BLOOD ORDERABLE S Final Result [facility] Department [place] [address] * Haemophilus influenzae B Ab IgG (09/04/2022 11:30 AM CDT) [facility] Haemophilus Influenza B, Leyla 0.24 >=0.15 mg/L [facility] Comment: ADDITIONAL INFORMATION The minimum level of protective antibody in the normal population is 0.15 mg/L. However, the optimum antibody level to confer jail immunity is >= 1.0 mg/L post vaccination. Test Performed by: [facility] [place] [address] Peoples[employer] Programmer: Lexx Pierre M.D. Ph.D.; CLIA# [id number] Blood 09/04/2022 11:3 0 AM CDT 09/04/2022 4:06 PM CDT [place] MD PhD LAB BLOOD ORDERABLE S Final Result [facility] Department [place] [address] * Tetanus antibody, IgG (09/04/2022 11:30 AM CDT) Tetanus IgG Ab Positive [facility] Comment: REFERENCE VALUE Vaccinated: Positive (>= 0.01 IU/mL) Unvaccinated: Negative (< 0.01 IU/mL) Tetanus IgG Value >2.24 IUnits/mL [facility] Comment: ADDITIONAL INFORMATION This test was developed and its performance characteristics determined by [facility] in a manner consistent with CLIA requirements. This test has not been cleared or approved by the U.S. Food and Drug Administration. Test Performed by: [facility] - [address] [address] Peoples[employer] Programmer: Lexx Pierre M.D. Ph.D.; CLIA# [id number] Blood 09/04/2022 11:3 0 AM CDT 09/04/2022 4:15 PM CDT us [place] MD PhD LAB BLOOD ORDERABLE S Final Result [facility] Department [place] [address] * Lymphocyte subpopulation 7 (09/04/2022 11:30 AM CDT) WBC 8.2 3.8 - 9.9 K/cumm [facility] Lymphocyte pct 30.8 20.0 - 54.3 % [facility] Lymphocyte abs 2,526 /cumm [facility] CD3 pct 70 60 - 88 % [facility] CD3 abs 1,768 661 - 1,963 /cumm [facility] CD4 pct 46 31 - 64 % [facility] CD4 abs 1,162 365 - 1,294 /cumm [facility] CD8 pct 22 12 - 40 % [facility] CD8 abs 556 187 - 781 /cumm [facility] CD19 pct 10 6 - 25 % [facility] CD19 abs 253 86 - 488 /cumm [facility] [id number] pct 15 5 - 25 % [facility] [id number] abs 379 76 - 467 /cumm [facility] CD2 pct 84 % [facility] CD2 abs 2,122 /cumm [facility] HLA-DR pct 16 % [facility] HLA-DR abs 404 /cumm [facility] CD3 HLA-DR pct 2 % [facility] CD3 HLA-DR abs 51 /cumm [facility] CD4/CD8 ratio 2.1 0.9 - 4.4 [facility] Blood 09/04/2022 11:3 0 AM CDT 09/04/2022 1:05 PM CDT Narrative [facility] - 09/04/2022 3:32 PM CDT This test was developed and its performance characteristics determined by the [facility] Flow Cytometry Laboratory. It has not [...] LAB BLOOD ORDERABLE S Final Result [facility] Department [place] [address] documented in this encounter Visit Diagnoses Diagnosis Frequent infections Upper abdominal pain Allergic conjunctivitis, bilateral Other chronic allergic conjunctivitis Seasonal allergic rhinitis, unspecified trigger documented in this encounter Care Teams Video Surveillance Technician Relationship Specialty Start Date End Date Lorie Vanessa NP [address] [place] [address] PCP - General Family Practice 05/29/22 No, Physician 06/08/21 documented as of this encounter
--- OUTSIDE RECORDS SUMMARY | 2024-06-06 05:26 | XMS_ITS | Encounter Summary ---
Author Organization [facility] Address [address] [place] [address] Phone Care Team Providers Care Retail Receiving Clerk Name Role Phone No, Physician Unavailable Lorie Vanessa NP Primary Care Provider [phone] Encounter Details Date Type Department Care Team (Late st Contact Info) Description 11/01/2022 Orders Only [facility] Allergy and Immunology [address] [facility] [address] [place] [address] [place] Dodd MD PhD [address] [facility] [address] [place] [address] Chronic cough Social History Tobacco Use Types Packs/Day Years Used Date Smoking Tobacco: Never Smokeless Tobacco: Never PHQ-2 Answer Date Recorded PHQ-2 Total Score (If total score is 3 or more points, staff should administer the PHQ-9) 0 04/12/2022 Comments No Sex and Gender Information Value Date Recorded Sex Assigned at Not on file Legal Sex Female 6:55 PM CANDY COUNTER CLERK Gender Identity Female 06/06/2022 7:40 AM CANDY COUNTER CLERK Sexual Orientation Not on file documented [...] Da te levalbuterol (XOPENEX HFA) 45 mcg/actuation inhalerIndications:Metal Extrusion Supervisor shalini cough Inhale 1-2 puffs every 6 (six) hours as needed for wheezing Reorder 09/04/2022 11/01/2022 documented as of this encounter Care Teams Retail Receiving Clerk Relationship Specialty Start Date End Date Lorie Vanessa NP [address] [place] [address] PCP - General Family Practice 05/29/22 No, Physician 06/08/21 documented as of this encounter
--- OUTSIDE RECORDS SUMMARY | 2024-06-06 05:26 | XMS_ITS | Encounter Summary ---
Author Organization [facility] Healthcare Address [address] [place] [address] Care Team Providers Care Sanitary Napkin Machine Tender Name Role Phone No, Physician Unavailable Lorie Vanessa NP Primary Care Provider Reason for Visit * Diagnostic Imaging (Routine) - Closed Specialty Diagnoses / Procedures Referred By Cyn burnett Referred To Contact Diagnoses Upper abdominal pain Nausea Procedures US Abdomen Limited US Abdomen Complete Cj Thomas MD [address] [place] [address] Phone: tel: fax: [address] [address] Referral ID Status Reason Start Date Expiration Date Visits Re quested Visits Authorized [id number] Closed 08/21/2022 09/20/2023 1 1 Encounter Details Date Type Department Care Team (Latest Contact Info) Description 09/14/2022 8:29 AM CDT - 09/14/2022 11:59 PM CDT Hospital Encounter [address] [address] Upper abdominal pain; Nausea Discharge [...] file Legal Sex Female 6:55 PM CHIEF CREATIVE OFFICER Gender Identity Female 06/06/2022 7:40 AM CHIEF CREATIVE OFFICER Sexual Orientation Not on file documented [...] D: ??09/14/2022 12:37 PM T: Report ID: [id number] Reading Location: ??[id number] Procedure Note Zaheer Berry Jr., MD - [...] liver is slightly increased in echogenicity. Liver gloqyigw86.2 cm. No focal hepatic lesions are seen. [...] by Zaheer Berry M.D. T: Report ID: [id number] Reading Location: [id number] Cj William [facility] PROCEDURES Final Result documented in this encounter Visit Diagnoses Diagnosis Upper abdominal pain Nausea Nausea alone documented in this encounter Care Teams Sanitary Napkin Machine Tender Relationship Specialty Start Date End Date Lorie Vanessa NP [address] [place] [address] PCP - General Family Practice 05/29/22 No, Physician 06/08/21 documented as of this encounter
--- OUTSIDE RECORDS SUMMARY | 2024-06-06 05:26 | XMS_ITS | Encounter Summary ---
Author Organization [facility] Address [address] [place] [address] Care Team Providers Care Marriage And Family Teacher Name Role Phone No, Physician Unavailable Lorie Vanessa NP Primary Care Provider [phone] Encounter Details Date Type Department Care Team (Late st Contact Info) Description 09/11/2022 Telephone [facility] Primary Care at [place] [address] [facility] [address] [place] [address] Lorie Vanessa NP [address] [place] [id number] Social History Tobacco Use Types Packs/Day Years Used Date Smoking Tobacco: Never Smokeless Tobacco: Never PHQ-2 Answer Date Recorded PHQ-2 Total Score (If total score is 3 or more points, staff should administer the PHQ-9) 0 04/12/2022 Comments No Sex and Gender Information Value Date Recorded Sex Assigned at Not on file Legal Sex Female 6:55 PM STONE AND PLATE PREPARER APPRENTICE Gender Identity Female 06/06/2022 7:40 AM STONE AND PLATE PREPARER APPRENTICE Sexual Orientation Not on file documented [...] on filedocumented in this encounter Care Teams Marriage And Family Teacher Relationship Specialty Start Date End Date Lorie Vanessa NP [address] [place] [id number] PCP - General Family Practice 05/29/22 No, Physician 06/08/21 documented as of this encounter
--- OUTSIDE RECORDS SUMMARY | 2024-06-06 05:26 | XMS_ITS | Encounter Summary ---
Author Organization [facility] Address [address] [place] [address] Phone Care Team Providers Care Substance Abuse Nurse Name Role Phone No, Physician Unavailable Lorie Vanessa NP Primary Care Provider [phone] Reason for Visit * Reason Onset Date Comments Approval Letter 10/02/2022 Encounter Details Date Type Department Care Team (Late st Contact Info) Description 10/02/2022 Documentation [facility] Allergy and Immunology [address] [place] [address] Vera Nolan RN Approval Letter [...] file Legal Sex Female 6:55 PM INSTRUMENT MECHANIC WEAPONS SYSTEM Gender Identity Female 06/06/2022 7:40 AM INSTRUMENT MECHANIC WEAPONS SYSTEM Sexual Orientation Not on file documented as of this encounter Progress Notes * Vera Nolan RN - 10/02/2022 9:53 AM CDT Fax received from [employer] stating patient's Levalbuterol tartrate hfa 45 mcg HFA AER AD lila approved from 08/28/22-09/27/23. Patient notified. Approval letter sent for scanning documented in this encounter Plan of Treatment Not on file documented as of this encounter Visit Diagnoses Not on filedocumented in this encounter Care Teams Substance Abuse Nurse Relationship Specialty Start Date End Date Lorie Vanessa NP [address] [place] [id number] PCP - General Family Practice 05/29/22 No, Physician 06/08/21 documented as of this encounter
--- OUTSIDE RECORDS SUMMARY | 2024-06-06 05:26 | XMS_ITS | Encounter Summary ---
Author Organization [facility] Address [address] [place] [address] Care Team Providers Care Welfare Manager Name Role Phone No, Physician Unavailable Lorie Vanessa NP Primary Care Provider [phone] Encounter Details Date Type Department Care Team (Late st Contact Info) Description 09/13/2022 E-Visit [facility] Virtual Care [address] [place] [address] Adriana Marshall NP [address] [place] [address] E-Visit for Sinus Infection Social [...] file Legal Sex Female 6:55 PM MASTER WELDER Gender Identity Female 06/06/2022 7:40 AM MASTER WELDER Sexual Orientation Not on file documented as [...] prescribed, if applicable, as well as any gort-ptj-tjefibd remedies. She was given instructions regarding follow up and timeframe if symptoms worsen or don???t improve. These instructions were included in the [employer] message reply tothe patient. Patient Instructions were included in the message reply to patient. My total encounter time on 09/13/2022 was 5 minutes which was spent in the activities documented inthe note. Adriana Marshall NP documented in this encounter Plan of Treatment Not on file documented as of this encounter Visit Diagnoses Not on filedocumented in this encounter Care Teams Welfare Manager Relationship Specialty Start Date End Date Lorie Vanessa NP [address] [place] [id number] PCP - General Family Practice 05/29/22 No, Physician 06/08/21 documented as of this encounter
--- OUTSIDE RECORDS SUMMARY | 2024-06-06 05:26 | XMS_ITS | Encounter Summary ---
Author Organization [facility] Address [address] [place] [address] Care Team Providers Care Women Nurse Name Role Phone No, Physician Unavailable Lorie Vanessa NP Primary Care Provider [phone] Encounter Details Date Type Department Care Team (Late st Contact Info) Description 09/13/2022 Patient Self-Triage [facility] HealthCare/ Physicians [address] [place] [address] Mychart, Generic Provider [address] [place] [id number] Social History Tobacco Use Types Packs/Day Years Used Date Smoking Tobacco: Never Smokeless Tobacco: Never PHQ-2 Answer Date Recorded PHQ-2 Total Score (If total score is 3 or more points, staff should administer the PHQ-9) 0 04/12/2022 Comments No Sex and Gender Information Value Date Recorded Sex Assigned at Not on file Legal Sex Female 6:55 PM STUDIO RECEPTIONIST Gender Identity Female 06/06/2022 7:40 AM STUDIO RECEPTIONIST Sexual Orientation Not on file documented as of this encounter Plan of Treatment Not on file documented as of this encounter Visit Diagnoses Not on filedocumented in this encounter Care Teams Women Nurse Relationship Specialty Start Date End Date Lorie Vanessa NP [address] [place] [phone] PCP - General Family Practice 05/29/22 No, Physician 06/08/21 documented as of this encounter
--- OUTSIDE RECORDS SUMMARY | 2024-06-06 05:26 | XMS_ITS | Encounter Summary ---
Author Organization [facility] Address [address] [facility] [address] [place] [address] Care Team Providers Care Residential Support Worker Name Role Phone No, Physician Unavailable Lorie Vanessa NP Primary Care Provider [phone] Encounter Details Date Type Department Care Team (Late st Contact Info) Description 09/18/2022 Telephone [facility] Gastroenterology at [address] [place] [address] Cj Thomas MD [address] [place] [address] [address] [place], [place] [id number] Social History Tobacco Use Types Packs/Day Years Used Date Smoking Tobacco: Never Smokeless Tobacco: Never PHQ-2 Answer Date Recorded PHQ-2 Total Score (If total score is 3 or more points, staff should administer the PHQ-9) 0 04/12/2022 Comments No Sex and Gender Information Value Date Recorded Sex Assigned at Not on file Legal Sex Female 6:55 PM ROUTE PROCESS ADMINISTRATOR Gender Identity Female 06/06/2022 7:40 AM ROUTE PROCESS ADMINISTRATOR Sexual Orientation Not on file documented as [...] on filedocumented in this encounter Care Teams Residential Support Worker Relationship Specialty Start Date End Date Lorie Vanessa NP [address] [place] [id number] PCP - General Family Practice 05/29/22 No, Physician 06/08/21 documented as of this encounter
--- OUTSIDE RECORDS SUMMARY | 2024-06-06 05:26 | XMS_ITS | Encounter Summary ---
Author Organization [facility] Healthcare Address [address] [place] [address] Care Team Providers Care Insurance Legal Assistant Name Role Phone No, Physician Unavailable Lorie Vanessa NP Primary Care Provider [phone] Reason for Referral * Diagnostic Imaging (Routine) - Closed Specialty Diagnoses / Procedures Referred By Cyn burnett Referred To Contact Procedures NM Hepatobiliary Imaging W Dereck Seymour DO [address] [place] [address] Phone: tel: fax: [address] [address] Referral ID Status Reason Start Date Expiration Date Visits Re quested Visits Authorized [id number] Closed 11/21/2022 12/21/2023 2 1 * Diagnostic Imaging (Routine) - Closed Specialty Diagnoses / Procedures Referred By Cyn burnett Referred To Contact Procedures NM Hepatobiliary Imaging W Dereck Seymour DO [address] [place] [address] Phone: tel: fax: [address] [place] [address] Referral ID Status Reason Start Date Expiration Date Visits Re quested Visits Authorized [id number] Closed 11/21/2022 12/21/2023 2 2 Reason for Visit * Reason Comments Abdominal Pain Syncope Encounter Details Date Type Department Care Team (Late st Contact Info) Description 11/21/2022 12:03 AM CDT - 11/21/2022 4:47 PM CDT Emergency [facility] Emergency Department [address] [place] [address] Milton Jin DO [address] [place] [address] Dereck Nichols DO [address] [place] [address] Abdominal pain (Primary Dx) Discharge Disposition: Discharge [...] on file Legal 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 * Abdominal Pain (Discharge Care) (Sammarinese) documented in this encounter Medications at Time [...] tendency for uric acid stone formation. Source: [place] [employer].Last revised 06-06-2017 N. GONORRHOEAE/C. TRACHOMATIS AMPLIFICATION C. [...] Homero Albert M.D. JA: YAMEL Report ID: [id number] Reading Location: [id number] BP 140/84 Pulse 78 Temp 36.7 ??C [...] tendency for uric acid stone formation. Source: [place] [employer].Last revised 06-06-2017 N. GONORRHOEAE/C. TRACHOMATIS AMPLIFICATION C. [...] Homero Albert M.D. JA: YAMEL Report ID: [id number] Reading Location: [id number] 1. Abdominal pain This note was prepared [...] PM T: ??11/23/2022 2:48 PM Report ID: [id number] Reading Location: ??[id number] Procedure Note Zaheer Berry Jr., MD - [...] Zaheer Berry M.D. CH: ARAM Report ID: [id number] Reading Location: [id number] Dereck Nichols DO [facility] [place] PROCEDURES Final Result * NM Hepatobiliary [...] PM T: ??11/21/2022 1:29 PM Report ID: [id number] Reading Location: ??[id number] Procedure Note Zaheer Berry Jr., MD - [...] Zaheer Berry M.D. CH: CH Report ID: [id number] Reading Location: [id number] us Milton Jin DO IMG NM PROCEDURES [...] AM T: ??11/21/2022 7:38 AM Report ID: [id number] Reading Location: ??[id number] Procedure Note Fannie Mcdermott MD - 11/21/2022 [...] Fannie Mcdermott M.D. TW: TW Report ID: [id number] Reading Location: [id number] us Dereck Cheleik DO IMG US PROCEDURES Final Result * Trichomonas vaginalis PCR Urine (11/20/2022 10:06 PM CDT) Trichomonas DNA Not Detected Not Detected [facility] Comment: Interpretive Data Testing performed by [facility] using Nucleic Acid Amplification with the [employer] Xpert TV Assay. ??This assay detects DNA from Trichomonas vaginalis using Real-Time PCR. ??This test is cleared by the [facility] Food and Drug Administration for endocervical swabs, vaginal swabs, female urine (first-catch), and male urine (first-catch). ??The performance characteristics for these specimen types have been verified by the [facility]. ??Excess blood in specimens may be inhibitory and result in false negative results. ??The performance of this test has not been evaluated in women or individuals less than 18 years of age. Current Interpretive Data was last revised on 2019. Testing performed by: [facility], [address] [place]., [address] Urine 11/20/2022 10:0 6 PM CDT 11/21/2022 6:38 AM CDT us Lakisha LEYVA LAB MICROBIOLOGY - GENERAL ORDER DAVIN Final Result [facility]AN [facility] [address] [facility] [place] [address] * N. gonorrhoeae/C. trachomatis Amplification Urine (11/20/2022 10:06 PM CDT) Pathologist [facility] C. trachomatis Not Detected Not Detected [facility] Comment:Testing performed by : [address] [address] N. gonorrhoeae Not Detected Not Detected [facility] Comment: Interpretive Data Testing performed by the [facility]. This assay detects Chlamydia trachomatis and Neisseria gonorrhoeae by nucleic acid amplification testing (NAAT). This test is approved by the [facility] Food and Drug Administration and the performance characteristics have been verified by the laboratory. The performance characteristics of this test have not been evaluated in individuals less than 14 years of age. Current Interpretive Data was last revised on 2019. Testing performed by: [address] [address] Urine (None) 11/20/2022 10:0 6 PM CDT 11/20/2022 10:10 PM CDT Lakisha LEYVA LAB MICROBIOLOGY - GENERAL ORDER DAVIN Final Result Performing Organization Address City/[facility]/ZIP Co de Phone Number FRAN [address] [facility] [place] [address] * Troponin T high-sensitivity 2-hour (11/20/2022 10:03 PM CDT) Trop T hs <6 <=14 ng/L [facility] Comment: Interpretive Data For further hscTnT resources including the diagnostic algorithm and an aid in interpretation, copy and paste this link: https://nrl.testcatalog.org/show/hsTrop Current Interpretive Data last revised 2020. Testing performed by: [address] [address] Trop T hs delta 0 ng/L FRAN Comment:Testing performed by : [address] [address] Trop T hs interp Insignificant FRAN Comment:Testing performed by : [address] [address] Blood 11/20/2022 10:0 3 PM CDT 11/20/2022 10:10 PM CDT Milton Jin DO LAB BLOOD ORDERABLES F inal Result Performing Organization Address City/[facility]/ZIP Co de Phone Number FRAN [address] [facility] [place] [address] * CT Abdomen Pelvis W [...] PM T: ??11/20/2022 9:32 PM Report ID: [id number] Reading Location: ??[id number] Procedure Note Homero Albert MD - 11/20/2022 [...] Homero Albert M.D. JA: YAMEL Report ID: [id number] Reading Location: [id number] Lakisha LEYVA IMG CT PROCEDURES Final Result [...] Yellow Yellow FRAN Comment:Testing performed by : [address] [address] Clarity, ur Clear Clear FRAN Comment:Testing performed by : [address] [address] Specific gravity, ur 1.013 1.003 - 1.030 FRAN Comment:Testing performed by : [address] [address] pH, urine 5.0 FRAN Comment:Testing performed by : [address] [address] Protein, ur ql Negative Negative FRAN Comment:Testing performed by : [address] [address] Glucose, ur ql Negative Negative FRAN Comment:Testing performed by : [address] [address] Ketones, ur Negative Negative FRAN Comment:Testing performed by : [address] [address] Bilirubin, ur Negative Negative FRAN Comment:Testing performed by : [address] [address] Blood, ur Negative Negative FRAN Comment:Testing performed by : [facility], [address] [place] [address]., [address] Urobilinogen, ur <2.0 <2.0 mg/dL FRAN Comment:Testing performed by : [address] [address] Nitrite, ur Negative Negative FRAN Comment:Testing performed by : [address] [address] Leukocyte esterase, ur Negative Negative FRAN Comment:Testing performed by : [address], [place]., [address] UA reflex comment Reflex conditions for microscopic UA and culture not met. FRAN Comment:Testing performed by : [address], [place]., [address] Urine 11/20/2022 8:25 PM CDT 11/20/2022 8:28 [...] uric acid stone formation. Source: [facility] [employer]. Last revised 06-06-2017 Mitlon Jin DO LAB MICROBIOLOGY - GEN ERAL ORDERABLES Final Result FRAN [address] [facility] Department [place] [address] * eGFR (11/20/2022 8:17 PM CDT) Pathologist [facility] eGFR 123 mL/min/1. 73 m2 FRAN Comment: [...] was last reviewed 2021. Testing performed by: [address] [address] Blood 11/20/2022 8:17 PM CDT 11/20/2022 8:22 PM CDT us Milton Jin DO LAB BLOOD ORDERABLES F inal Result FRAN [address] [facility] [place] [address] * (ABNORMAL) Differential, auto (11/20/2022 8:17 PM CDT) Neutrophil abs 7.6(H) 1.7 - 6.5 K/cumm FRAN Comment:Testing performed by : [address] [address] Imm gran abs 0.0 0.0 - 0.1 K/cumm [facility]AN [facility]YS Comment:Testing performed by : [address] [address] Lymphocyte abs 2.7 0.8 - 3.3 K/cumm FRAN Comment:Testing performed by : [address] [address] Monocyte abs 0.8 0.2 - 0.8 K/cumm [facility] Comment:Testing performed by : [address] [address] Eosinophil abs 0.3 0.0 - 0.5 K/cumm [facility] Comment:Testing performed by : [address] [address] Basophil abs 0.1 0.0 - 0.1 K/cumm [facility] Comment:Testing performed by : [address] [address] Neutrophil pct 66.1 % [facility] Comment: Interpretive Data Percent cell count reference ranges are not reported, since discordance with absolute values may lead to misinterpretation of CBC data. Current Interpretive Data was last revised on 2017. Testing performed by: [address] [address] Imm gran pct 0.4 % [facility] Comment: Interpretive Data Percent cell count reference ranges are not reported, since discordance with absolute values may lead to misinterpretation of CBC data. Current Interpretive Data was last revised on 2017. Testing performed by: [address] [address] Lymphocyte pct 23.5 % [facility] Comment: Interpretive Data Percent cell count reference ranges are not reported, since discordance with absolute values may lead to misinterpretation of CBC data. Current Interpretive Data was last revised on 2017. Testing performed by: [address] [address] Monocyte pct 6.9 % [facility] Comment: Interpretive Data Percent cell count reference ranges are not reported, since discordance with absolute values may lead to misinterpretation of CBC data. Current Interpretive Data was last revised on 2017. Testing performed by: [address] [address] Eosinophil pct 2.2 % [facility] Comment: Interpretive Data Percent cell count reference ranges are not reported, since discordance with absolute values may lead to misinterpretation of CBC data. Current Interpretive Data was last revised on 2017. Testing performed by: [address] [address] Basophil pct 0.9 % [facility] Comment: Interpretive Data Percent cell count reference ranges are not reported, since discordance with absolute values may lead to misinterpretation of CBC data. Current Interpretive Data was last revised on 2017. Testing performed by: [address] [address] Blood 11/20/2022 8:17 PM CDT 11/20/2022 8:22 PM CDT [facility] BLOOD ORDERABLES F inal Result Performing Organization Address [facility] Co de Phone Number FRAN [address] [place] [address] * Troponin T high-sensitivity series (baseline, 2hr, 4hr, 6hr) (11/20/2022 8:17 PM CDT) Trop T hs <6 <=14 ng/L [facility]AN [facility]YS Comment: Interpretive Data For further hscTnT resources including the diagnostic algorithm and an aid in interpretation, copy and paste this link: https://nrl.testcatalog.org/show/hsTrop Current Interpretive Data last revised 2020. Testing performed by: [address] [address] Blood 11/20/2022 8:17 PM CDT 11/20/2022 8:22 PM CDT [facility] BLOOD ORDERABLES E dited Result - Final Performing Organization Address [facility] Co de Phone Number JENNIFER[address] [place] [address] * Lipase (11/20/2022 8:17 PM CDT) Lipase 26 10 - 99 Units/L FRAN Comment:Testing performed by : [address] [address] Blood (Blood, Venous) 11/20/2022 8:17 PM CDT 11/20/2022 8:22 PM CDT Milton Jin DO LAB BLOOD ORDERABLES F inal Result [facility] [address] [facility] [place] [address] * Comprehensive metabolic panel (11/20/2022 8:17 PM CDT) Sodium 140 135 - 145 mmol/L FRAN Comment:Testing performed by : [address] [address] Potassium, pl 4.2 3.3 - 4.9 mmol/L FRAN Comment:Testing performed by : [address] [address] Chloride 105 97 - 110 mmol/L FRAN Comment:Testing performed by : [address] [address] CO2 23 22 - 32 mmol/L FRAN Comment:Testing performed by : [address] [address] Anion gap 12 2 - 15 mmol/L FRAN Comment:Testing performed by : [address] [address] BUN 7 6 - 25 mg/dL FRAN Comment:Testing performed by : [address] [address] Creatinine 0.70 0.60 - 1.10 mg/dL FRAN Comment:Testing performed by : [address] [address] Glucose 138 70 - 199 mg/dL FRAN [...] was last revised 2022. Testing performed by: [address] [address] Calcium 9.4 8.5 - 10.3 mg/dL FRAN Comment:Testing performed by : [address] [address] Bilirubin, total 0.3 0.1 - 1.2 mg/dL FRAN Comment:Testing performed by : [address] [address] Protein, pl 7.6 6.5 - 8.5 g/dL FRAN Comment:Testing performed by : [address] [address] Albumin 4.3 3.5 - 5.0 g/dL FRAN Comment:Testing performed by : [address] [address] Alk phos 83 40 - 130 Units/L FRAN Comment:Testing performed by : [address] [address] ALT 18 7 - 45 Units/L FRAN Comment:Testing performed by : [address] [address] AST 20 10 - 45 Units/L [facility] Comment:Testing performed by : [address] [address] Blood 11/20/2022 8:17 PM CDT 11/20/2022 8:22 PM CDT us Milton Jin DO LAB BLOOD ORDERABLES F inal Result FRAN [address] [facility] Department [place] [address] * (ABNORMAL) CBC with auto differential (11/20/2022 8:17 PM CDT) Pathologist [facility] WBC 11.4(H) 3.8 - 9.9 K/cumm FRAN Comment:Testing performed by : [address], [address] Hgb 13.9 11.9 - 15.5 g/dL FRAN Comment:Testing performed by : [address] [address] Hct 42.5 35.6 - 45.5 % FRAN Comment:Testing performed by : [address] [address] Plt 416(H) 150 - 400 K/cumm FRAN Comment:Testing performed by : [address], [address] MPV 8.3(L) 9.1 - 12.3 fL FRAN Comment:Testing performed by : [address], [address] RBC 4.93 3.90 - 5.20 M/cumm FRAN Comment:Testing performed by : [address], [address] MCV 86.2 81.3 - 96.4 fL FRAN Comment:Testing performed by : [address], [address] MCH 28.2 27.1 - 33.3 pg FRAN Comment:Testing performed by : [address], [address] MCHC 32.7 32.3 - 35.7 g/dL FRAN Comment:Testing performed by : [address], [address] RDW CV 12.3 11.1 - 14.9 % FRAN Comment:Testing performed by : [address], [address] RDW SD 38.6 35.7 - 48.1 fL FRAN Comment:Testing performed by : [address], [address] NRBC abs 0.00 0.00 - 0.01 K/cumm FRAN Comment:Testing performed by : [address], [address] Blood (Blood, Venous) 11/20/2022 8:17 PM CDT 11/20/2022 8:22 PM CDT Milton Aragonhaniel Jin LAB BLOOD ORDERABLES F inal Result Performing Organization Address [facility] Co de Phone Number FRAN [facility] [facility] [place] [address] * ECG 12 lead (11/20/2022 8:16 PM CDT) Pathologist [facility] Ventricular Rate EKG/Min 80 BPM [facility] Atrial Rate 80 BPM [facility] DE-Interval (MSEC) 138 ms [facility] QRS-Interval (MSEC) 86 ms [facility] QT-Interval (MSEC) 376 ms [facility] QTc 433 ms [facility] P [place] 32 degrees [facility] R [place] -12 degrees [facility] T [place] 24 degrees [facility] Diagnosis Normal sinus rhythm 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 When compared with ECG of 06-AUG-2022 13:51, Inferior infarct is now Present [facility] 11/20/2022 8:16 PM CDT 11/21/2022 9:55 AM CDT Milton Lee Jin ECG ORDERABLES Final Result Performing Organization Address [facility] Phone Number [facility] documented in this encounter Visit Diagnoses Diagnosis [...] 11/20/2022 documented in this encounter Care Teams Insurance Legal Assistant Relationship Specialty Start Date End Date Lorie Vanessa FOURTH GRADE TEACHER [address] [place] [address] PCP - General Family Practice 05/29/22 No, Physician 06/08/21 documented as of this encounter
--- OUTSIDE RECORDS SUMMARY | 2024-06-06 05:27 | XMS_ITS | Encounter Summary ---
Author Organization 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 ??Testing performed by the [facility] Infectious Disease Laboratory. The 2019-Novel Coronavirus [...] 30, 2020. Influenza A RNA Not Detected [facility] Influenza B RNA Not Detected [facility] Comment: Interpretive Data Testing performed by the [facility] Molecular Infectious Disease Laboratory. This test is performed using the pieter Influenza A/B Assay. This is a real-time RT-PCR test for the qualitative detection of nucleic acid from Influenza A and Influenza B. This assay has been reviewed by the FDA for Emergency Use Authorization (EUA). The performance characteristics have been verified by the [facility]. Results should be interpreted in combination with clinical context and a negative result does not rule out infection. ?? Interpretive data last revised 2020. First COVID-19 test? Unknown [facility] Employeed in healthcare? Yes [facility] status? Unknown [facility] Group care resident? No [facility] Hospitalized? No [facility] Is patient in ICU? No [facility] Symptomatic as defined by CDC? Yes [facility] Nasopharyngeal 06/08/2021 3: 02 PM SILVER STEWARD 06/08/2021 11:07 PM [facility]IL[facility] STEWARD [facility]ative [facility] - 06/09/2021 5:36 AM SILVER STEWARD Patient is employed by/enrolled at:->[employer] Date of Symptom Onset->06/07/21 Reason for testing?->Symptomatic us Tanya Montaño MD LAB MICROBIOLOGY - GENERAL ORDERABLES Final Result [facility] Department [place] [address] documented in this encounter Visit Diagnoses Diagnosis Cough Myalgia Unspecified myalgia and myositis documented in this encounter Additional Health Concerns Infection Onset Date Last Indicated Resolved Time COVID: Suspected 06/08/2021 06/08/2021 06/09/2021 5:38 AM SILVER STEWARD documented as of this encounter Care Teams Computational Geneticist Relationship Specialty Start Date End Date Unknown, Notinfile PCP - General 06/08/21 08/18/21 No, Physician 06/08/21 documented as of this encounter
--- OUTSIDE RECORDS SUMMARY | 2024-06-06 05:27 | XMS_ITS | Encounter Summary ---
Author Organization [facility] Healthcare Address [address] [place] [address] Care Team Providers Care Electrolog Operator Name Role Phone No, Physician Unavailable Lorie Vanessa NP Primary Care Provider [phone] Reason for Referral * Cardiology (Routine) - Closed Specialty Diagnoses / Procedures Referred By Cyn burnett Referred To Contact Diagnoses Orthostatic hypotension Dizziness Tachycardia, unspecified GALEANO (dyspnea on exertion) Family history of CHF (congestive heart failure) Procedures Stress Treadmill Test Nile Prasad MD Phone: tel: fax: [address] [address] Referral ID Status Reason Start Date Expiration Date Visits Re quested Visits Authorized [id number] Closed 07/13/2022 08/12/2023 1 1 Reason for Visit * Cardiology (Routine) - Closed Specialty Diagnoses / Procedures Referred By Cyn burnett Referred To Contact Diagnoses Orthostatic hypotension Dizziness Tachycardia, unspecified GALEANO (dyspnea on exertion) Family history of CHF (congestive heart failure) Procedures Stress Treadmill Test Nile Prasad MD Phone: tel: fax: [facility] [address] [place] [address] Referral ID Status Reason Start Date Expiration Date Visits Re quested Visits Authorized [id number] Closed 07/13/2022 08/12/2023 1 1 Encounter Details Date Type Department Care Team (Latest Contact Info) Description 08/06/2022 1:04 PM CDT - 08/06/2022 11:59 PM CDT Hospital Encounter 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 female. MR#: [id number] CLINICAL INDICATION: ??Orthostatic hypotension, dyspnea on exertion, palpitations, family history of Congestive Heart Failure SITE: ??[facility] STUDY DESCRIPTION: After reviewing benefits, risks [...] blood pressure 138/78 mmHg Nile Prasad MD, [facility] Cardiology Copy to: Lorie Vanessa NP ?? us Nile Prasad MD CV STRESS PROCEDURES Final Resul t documented in this encounter Visit Diagnoses Diagnosis Orthostatic hypotension Dizziness Dizziness and giddiness Tachycardia, unspecified GALEANO (dyspnea on exertion) Other dyspnea and respiratory abnormality Family history of CHF (congestive heart failure) Family history of other cardiovascular diseases documented in this encounter Care Teams Electrolog Operator Relationship Specialty Start Date End Date Lorie Vanessa NP [address] [place] [address] PCP - General Family Practice 05/29/22 No, Physician 06/08/21 documented as of this encounter
--- OUTSIDE RECORDS SUMMARY | 2024-06-06 05:27 | XMS_ITS | Encounter Summary ---
Author Organization [facility] Address [address] [facility] [address] [place] [address] Care Team Providers Care Retail Loss Prevention Officer Name Role Phone No, Physician Unavailable Lorie Vanessa NP Primary Care Provider [phone] Reason for Referral * Cardiology (Routine) - Closed Specialty Diagnoses / Procedures Referred By Cyn burnett Referred To Contact Diagnoses Dizziness Tachycardia, unspecified GALEANO (dyspnea on exertion) Procedures Extended/Fci Holter Patch (>48 hours up to 7 days) Laurent Bueno MD Phone: tel: fax: [facility] Referral ID Status Reason Start Date Expiration Date Visits Re quested Visits Authorized [id number] Closed 07/13/2022 08/12/2023 1 1 OPEDIC ASSISTANT * Cardiology (Routine) - Closed Specialty Diagnoses / Procedures Referred By Cyn burnett Referred To Contact Diagnoses Orthostatic hypotension Dizziness Tachycardia, unspecified GALEANO (dyspnea on exertion) Family history of CHF (congestive heart failure) Procedures Stress Treadmill Test Laurent Bueno MD Phone: tel: fax: [address] [phone] Referral ID Status Reason Start Date Expiration Date Visits Re quested Visits Authorized [id number] Closed 07/13/2022 08/12/2023 1 1 OPEDIC ASSISTANT * Cardiology (Routine) - Closed Specialty Diagnoses / Procedures Referred By Contac t Referred To Contact Diagnoses Orthostatic hypotension Dizziness Tachycardia, unspecified GALEANO (dyspnea on exertion) Family history of CHF (congestive heart failure) Procedures Transthoracic Echo (TTE) Complete W Doppler/CF Laurent Bueno MD Phone: tel: fax: [address] [phone] Referral ID Status Reason Start Date Expiration Date Visits Re quested Visits Authorized [id number] Closed 07/13/2022 08/12/2023 1 1 OPEDIC ASSISTANT Reason for Visit * Reason Comments Dizziness Rapid Heart Rate * Consultation (Routine) - Closed Specialty Diagnoses / Procedures Referred By Contac t Referred To Contact Cardiology Diagnoses Orthostatic hypotension Dizziness Tachycardia, unspecified Lorie Vanessa, BENZENE WORKER [address] [address] Phone: tel: fax: Laurent Bueno MD Phone: tel: fax: Referral ID Status Reason Start Date Expiration Date V isits Requested Visits Authorized [id number] Closed Specialty Services Required 04/12/2022 05/12/2023 12 12 Encounter Details Date Type Department Care Team (Late st Contact Info) Description 07/13/2022 9:00 AM ORTHOPEDIC ASSISTANT Office Visit [facility] Cardiology [address] [phone] Laurent Bueno MD [address] [place] [address] [place] [id number] GALEANO (dyspnea on exertion) (Primary Dx); [...] on file Legal Sex Female 6:55 PM ORTHOPEDIC ASSISTANT Gender Identity Female 06/06/2022 7:40 AM ORTHOPEDIC ASSISTANT Sexual Orientation Not on file documented as of this encounter Last Filed Vital Signs Vital Sign Reading Time Taken Comments Blood Pressure 98/72 07/13/2022 9:10 AM ORTHOPEDIC ASSISTANT Pulse 82 07/13/2022 9:10 AM ORTHOPEDIC ASSISTANT Temperature - - Respiratory Rate - - Oxygen Saturation 99% 07/13/2022 9:10 AM ORTHOPEDIC ASSISTANT Inhaled Oxygen Concentration - - Weight 123.6 kg (272 lb 6.4 oz) 07/13/2022 9:10 AM ORTHOPEDIC ASSISTANT Height - - Body Mass Index 46.76 07/11/2022 6:01 PM ORTHOPEDIC ASSISTANT documented in this encounter Ordered Prescriptions Prescription [...] TSH reflex to free T4; Future - Extended/Fci Holter Patch (>48 hours up to 7 [...] TSH reflex to free T4; Future - Extended/Fci Holter Patch (>48 hours up to 7 days); Future Tachycardia, unspecified - Ambulatory referral to Cardiology - ECG 12 lead - Transthoracic Echo (TTE) Complete W Doppler/CF; Future - Stress Treadmill Test; Future - TSH reflex to free T4; Future - Extended/Fci Holter Patch (>48 hours up to 7 [...] awake/alert, no focal deficits On behalf of [facility] Cardiology at [facility], we appreciate the opportunity to participate in the care of your patient. Please feel free to contact us if if we can provide any further assistance in this patient's care. Laurent Bueno MD, [facility] Cardiology, [facility] Maribellh Director Database completed by using M*Modal Fluency Direct speaking software, inadvertent sound designer variances may occur. documented in this encounter [...] LAB BLOOD ORDERABLES Final Resul t FRAN [address] [facility] Department [place] [address] * Stress Treadmill Test (08/06/2022 2:55 PM CDT) Anatomical Region Laterality Modality Ultrasound Narrative 08/06/2022 4:42 PM CDT Patient: Teresa Cervantes is a 26 y.o. female. MR#: [id number] CLINICAL INDICATION: ??Orthostatic hypotension, dyspnea on exertion, palpitations, family history of Congestive Heart Failure SITE: ??[facility] STUDY DESCRIPTION: After reviewing benefits, [...] 138/78 mmHg Laurent Bueno MD, [facility] Card[facility] Copy to: Lorie Vanessa NP ?? [...] Date: 08/06/2022 Status: MHB: : Patient Location: [address]^MHBHeight: 64in : : Weight: 272lbBP: 120/82 [...] MD CV ECHO PROCEDURES Final Result * Extended/Fci Holter Patch (>48 hours up to 7 days) (07/17/2022 2:43 PM ORTHOPEDIC ASSISTANT) Anatomical Region Laterality Modality Electrocardiogra phy Narrative [...] rates between 85-136 beats per minute Result [facility] Laurent Bueno MD CV CARDIAC SERVICES PROCEDURES F inal Result * ECG 12 lead (07/13/2022) Result [facility] Laurent Bueno MD ECG ORDERABLES Final Result [...] 07/13/2022 documented in this encounter Care Teams Retail Loss Prevention Officer Relationship Specialty Start Date End Date Lorie Vanessa NP [address] [place] [address] PCP - General Family Practice 05/29/22 No, Physician 06/08/21 documented as of this encounter
--- OUTSIDE RECORDS SUMMARY | 2024-06-06 05:27 | XMS_ITS | Encounter Summary ---
Author Organization [facility] Address [address] [place] [address] Care Team Providers Care Consulting Networking Engineer Name Role Phone No, Physician Unavailable Unknown, Notinfile Primary Care Provider Unavail able Reason for Visit * Reason Comments Abdominal Pain Vomiting Nausea Encounter Details Date Type Department Care Team (Late st Contact Info) Description 03/21/2022 4:20 PM CDT - 03/21/2022 7:11 PM CDT Emergency [facility] Emergency Department [address] [place] [address] Abdominal pain (Primary Dx); Elevated lipase Discharge Disposition: Discharge to home or self care Social History Tobacco Use Types Packs/Day Years Used Date Smoking Tobacco: Never Comments No Sex and Gender Information Value Date Recorded Sex Assigned at Not on file Legal Sex Female 6:55 PM SANITARY ENGINEER Gender Identity Female 06/06/2022 7:40 AM SANITARY ENGINEER Sexual Orientation Not on file documented [...] Everywhere. * Acute Abdominal Pain (AfterCare(R) Instructions(ER/ED)) (Lithuanian) documented in this encounter Medications at Time [...] by mouth daily 02/23/2022 08/22/19 23 vit no.[id number] 28 mg iron- 800 mcg tablet Take [...] tendency for uric acid stone formation. Source: [facility].Last revised 06-06-2017 CBC WITH AUTO [...] based upon urinalysis results. Testing performed by [facility] ([phone]) COMPREHENSIVE METABOLIC PANEL Sodium 137 Potassium, pl [...] home. This examination was transcribed using the [employer] voice recognition system without human medical records clerk. In an effort to expedite patient care, this report has not been adjusted for typographical, grammatical, and syntax by a trained medical equipment technician. Close outpatient follow-up with a low threshold [...] Findings Committee. J Am Dom Radiol. 2017 Dec;14(8):8374-1991. THIS IS AN ELECTRONICALLY VERIFIED FINAL REPORT 03/21/2022 6:43 PM - Electronically signed by ??Jone Mercado M.D. RL: DAVID D: ??03/21/2022 6:43 PM T: ??03/21/2022 6:43 PM Report ID: [id number] Reading Location: ??[id number] Procedure Note Jone García MD - 03/21/2022 [...] Findings Committee. J Am Dom Radiol. 2017 Dec;14(8):7005-1806. THIS IS AN ELECTRONICALLY VERIFIED FINAL REPORT 03/21/2022 6:43 PM - Electronically signed by Jone Mercado M.D. RL: DAVID Report ID: [id number] Reading Location: [place] [address] [address] PROCEDURES Final Result * POCT hCG, urine (03/21/2022 4:14 PM CDT) HCG, ur, POC Negative Lot Number [id number] QC Backgroud Clear Acceptable QC Control Line Acceptable Urine 03/21/2022 4:14 PM CDT us Jennifer LEYVA POINT OF CARE TEST ORDERABLES F inal Result * Urine culture Urine (03/21/2022 3:09 PM CDT) Pathologist [facility] Report Final Report: Less than 100,000 colonies/mL (clinically insignificant growth based on current clinical standards) [facility]AN [facility] Comment:Testing performed by : [facility], [address] [facility] [place]., [address] Organism (CLINICALLY INSIGNIFICANT GROWTH [facility] Urine 03/21/2022 3:09 PM CDT 03/21/2022 10:36 PM CDT Narrative [facility] - 03/23/2022 8:04 AM CDT Urine culture reflexed based upon urinalysis results. Testing performed by [facility] ([phone]) Jennifer LEYVA LAB MICROBIOLOGY - GENERAL KAREN HIGHTOWER Final Result [facility]AN [facility]YS [address] [facility] Department [place] [address] * (ABNORMAL) Urinalysis, microscopic only (03/21/2022 3:09 PM CDT) WBC, ur 11-20(A) 0 - 5 /HPF [facility] Comment:Testing performed by : [address] [address] RBC, ur 0-2 0 - 2 /HPF FRAN Comment:Testing performed by : [address] [address] Epithelial cells, squamous, ur >50(A) 0 - 5 /HPF FRAN Comment: Suggestive of contamination. Consider recollection by clean catch. Testing performed by: [address] [address] Bacteria, ur 2+(A) FRAN Comment:Testing performed by : [address] [address] Mucous, ur Present(A) FRAN Comment:Testing performed by : [address] [address] Calcium oxalate crystals, ur 4+(A) FRAN Comment:Testing performed by : [address] [address] Culture Reflex Comment Reflex to urine culture will be performed. FRAN Comment:Testing performed by : [facility], [address] [place] [address]., [address] Urine 03/21/2022 3:0 9 PM CDT 03/21/2022 3:18 PM CDT us Jennifer LEYVA LAB URINE ORDERABLES Final Resu lt FRAN [address] [facility] Department [place] [address] * eGFR (03/21/2022 3:09 PM [...] was last reviewed 2021. Testing performed by: [facility], [address] [place] [address]., [address] Blood 03/21/2022 3:09 PM CDT 03/21/2022 3:18 PM CDT us Jennifer LEYVA LAB BLOOD ORDERABLES Final Resu lt [facility] [address] [facility] Department [place] [address] * (ABNORMAL) Differential, auto (03/21/2022 3:09 PM CDT) Neutrophil abs 12.3(H) 1.7 - 6.5 K/cumm FRAN Comment:Testing performed by : [address] [address] Imm gran abs 0.1 0.0 - 0.1 K/cumm FRAN Comment:Testing performed by : [address] [address] Lymphocyte abs 1.9 0.8 - 3.3 K/cumm FRAN Comment:Testing performed by : [address] [address] Monocyte abs 1.0(H) 0.2 - 0.8 K/cumm FRAN Comment:Testing performed by : [address] [address] Eosinophil abs 0.1 0.0 - 0.5 K/cumm FRAN Comment:Testing performed by : [address] [address] Basophil abs 0.1 0.0 - 0.1 K/cumm FRAN Comment:Testing performed by : [address] [address] Neutrophil pct 79.2 % FRAN Comment: Interpretive Data Percent cell count reference ranges are not reported, since discordance with absolute values may lead to misinterpretation of CBC data. Current Interpretive Data was last revised on 2017. Testing performed by: [address] [address] Imm gran pct 0.3 % FRAN Comment: Interpretive Data Percent cell count reference ranges are not reported, since discordance with absolute values may lead to misinterpretation of CBC data. Current Interpretive Data was last revised on 2017. Testing performed by: [address] [address] Lymphocyte pct 12.5 % FRAN Comment: Interpretive Data Percent cell count reference ranges are not reported, since discordance with absolute values may lead to misinterpretation of CBC data. Current Interpretive Data was last revised on 2017. Testing performed by: [address] [address] Monocyte pct 6.6 % FRAN Comment: Interpretive Data Percent cell count reference ranges are not reported, since discordance with absolute values may lead to misinterpretation of CBC data. Current Interpretive Data was last revised on 2017. Testing performed by: [address] [address] Eosinophil pct 0.9 % FRAN Comment: Interpretive Data Percent cell count reference ranges are not reported, since discordance with absolute values may lead to misinterpretation of CBC data. Current Interpretive Data was last revised on 2017. Testing performed by: [address] [address] Basophil pct 0.5 % FRAN Comment: Interpretive Data Percent cell count reference ranges are not reported, since discordance with absolute values may lead to misinterpretation of CBC data. Current Interpretive Data was last revised on 2017. Testing performed by: [address] [address] Blood 03/21/2022 3:09 PM CDT 03/21/2022 3:18 PM CDT us Jennifer LEYVA LAB BLOOD ORDERABLES Final Resu lt [facility] [address] [facility] Department [place] [address] * Sepsis Lactate w/ Reflex (03/21/2022 3:09 PM CDT) Sepsis Lactate 1.2 0.7 - 2.0 mmol/L FRAN Comment:Testing performed by : [address] [address] Blood 03/21/2022 3:09 PM CDT 03/21/2022 3:18 PM CDT Jennifer LEYVA LAB BLOOD ORDERABLES Final Resu lt FRAN [address] [facility] Department [place] [address] * Influenza A/B, RSV, and COVID-19 PCR Nasopharyngeal (03/21/2022 3:09 PM CDT) Pathologist [facility] COVID-19 RNA Negative Negative [facility] Comment:Testing performed by : [address] [address] Influenza A RNA Negative Negative [facility] Comment:Testing performed by : [address] [address] Influenza B RNA Negative Negative [facility] Comment:Testing performed by : [address] [address] RSV RNA Negative Negative [facility] Comment: Interpretive data: This test is performed using the ENDOGENX Xpert Xpress CoV-2/Flu/RSV plus assay. This is [...] Data last revised 2021. Testing performed by: [address] [address] Nasopharyngeal 03/21/2022 3: 09 PM CDT 03/21/2022 3:19 PM CDT Narrative FRAN - 03/21/2022 4:09 PM CDT Is the Patient experiencing symptoms consistent with COVID?->Yes Date of Symptom Onset->03/21/22 Reason for testing?->Symptomatic Jennifer LEYVA LAB MICROBIOLOGY - GENERAL ORDE CAMPBELL Final Result [facility] [address] [facility] Department [place] [address] * (ABNORMAL) Urinalysis reflex to microscopic and culture Urine (03/21/2022 3:09 PM CDT) Color, ur Brissa Yellow FRAN Comment:Testing performed by : [address] [address] Clarity, ur Cloudy(A) Clear FRAN Comment:Testing performed by : [address] [address] Specific gravity, ur 1.028 1.003 - 1.030 FRAN Comment:Testing performed by : [address] [address] pH, urine 5.0 FRAN Comment:Testing performed by : [address] [address] Protein, ur ql 1+(A) Negative FRAN Comment:Testing performed by : [address] [address] Glucose, ur ql Negative Negative FRAN Comment:Testing performed by : [address] [address] Ketones, ur Trace Negative FRAN Comment:Testing performed by : [address] [address] Bilirubin, ur Negative Negative FRAN Comment:Testing performed by : [address] [address] Blood, ur 1+(A) Negative FRAN Comment:Testing performed by : [address] [address] Urobilinogen, ur <2.0 <2.0 mg/dL FRAN Comment:Testing performed by : [address] [address] Nitrite, ur Negative Negative FRAN Comment:Testing performed by : [address] [address] Leukocyte esterase, ur 4+(A) Negative FRAN Comment:Testing performed by : [address] [address] UA reflex comment Reflex to microscopic UA will be performed. FRAN Comment:Testing performed by : [address] [address] Urine 03/21/2022 3:09 PM CDT 03/21/2022 3:18 [...] tendency for uric acid stone formation. Source: [facility] [employer]. Last revised 06-06-2017 Jennifer LEYVA LAB MICROBIOLOGY - GENERAL ORDE RABLES Final Result Performing Organization Address City/[facility]/ZIP Co de Phone Number FRAN [address] [place] [address] * (ABNORMAL) Lipase (03/21/2022 3:09 PM CDT) Lipase 194(H) 10 - 99 Units/L FRAN Comment:Testing performed by : [address] [address] Blood 03/21/2022 3:09 PM CDT 03/21/2022 3:18 PM CDT Jennifer LEYVA LAB BLOOD ORDERABLES Final Resu lt Performing Organization Address City/[facility]/ZIP Co de Phone Number JENNIFER[address] [place] [address] * Comprehensive metabolic panel (03/21/2022 3:09 PM CDT) Sodium 137 135 - 145 mmol/L FRAN Comment:Testing performed by : [address] [address] Potassium, pl 4.0 3.3 - 4.9 mmol/L [facility] Comment:Testing performed by : [address] [address] Chloride 102 97 - 110 mmol/L [facility] Comment:Testing performed by : [address], [place]., [address] CO2 26 22 - 32 mmol/L [facility] Comment:Testing performed by : [address] [address] Anion gap 9 2 - 15 mmol/L [facility] Comment:Testing performed by : [address], [place]., [address] BUN 9 8 - 25 mg/dL [facility] Comment:Testing performed by : [address] [address] Creatinine 0.80 0.60 - 1.10 mg/dL [facility] Comment:Testing performed by : [address] [address] Glucose 95 70 - 199 mg/dL [facility] Comment: Interpretive Data Fasting glucose [...] was last revised 2017. Testing performed by: [address] [address] Calcium 9.6 8.5 - 10.3 mg/dL [facility] Comment:Testing performed by : [address] [address] Bilirubin, total 0.4 0.1 - 1.2 mg/dL [facility] Comment:Testing performed by : [address] [address] Protein, pl 8.1 6.5 - 8.5 g/dL [facility] Comment:Testing performed by : [address] [address] Albumin 4.6 3.5 - 5.0 g/dL [facility] Comment:Testing performed by : [address] [address] Alk phos 103 40 - 130 Units/L [facility] Comment:Testing performed by : [address] [address] ALT 10 7 - 45 Units/L [facility] Comment:Testing performed by : [address] [address] AST 16 10 - 45 Units/L [facility] Comment:Testing performed by : [address] [address] Blood 03/21/2022 3:09 PM CDT 03/21/2022 3:18 PM CDT Jennifer LEYVA LAB BLOOD ORDERABLES Final Resu lt FRAN [address] Department [place] [address] * (ABNORMAL) CBC with auto differential (03/21/2022 3:09 PM CDT) Pathologist [facility] WBC 15.6(H) 3.8 - 9.9 K/cumm [facility] Comment:Testing performed by : [address] [address] Hgb 15.1 11.9 - 15.5 g/dL [facility] Comment:Testing performed by : [address] [address] Hct 45.7(H) 35.6 - 45.5 % [facility] Comment:Testing performed by : [address] [address] Plt 425(H) 150 - 400 K/cumm [facility] Comment:Testing performed by : [address] [address] MPV 8.6(L) 9.1 - 12.3 fL [facility] Comment:Testing performed by : [address] [address] RBC 5.30(H) 3.90 - 5.20 M/cumm [facility] Comment:Testing performed by : [address] [address] MCV 86.2 81.3 - 96.4 fL FRAN Comment:Testing performed by : [address] [address] MCH 28.5 27.1 - 33.3 pg FRAN Comment:Testing performed by : [address] [address] MCHC 33.0 32.3 - 35.7 g/dL FRAN Comment:Testing performed by : [address] [address] RDW CV 12.2 11.1 - 14.9 % FRAN Comment:Testing performed by : [address] [address] RDW SD 38.5 35.7 - 48.1 fL FRAN Comment:Testing performed by : [address] [address] NRBC abs 0.00 0.00 - 0.01 K/cumm FRAN Comment:Testing performed by : [address] [address] Blood 03/21/2022 3:09 PM CDT 03/21/2022 3:18 PM CDT Jennifer LEYVA LAB BLOOD ORDERABLES Final Resu lt [facility]AN [address] [facility] Department [place] [address] documented in this encounter Visit [...] Dong) documented in this encounter Care Teams Consulting Networking Engineer Relationship Specialty Start Date End Date Unknown, Notinfile PCP - General 08/22/21 04/11/22 No, Physician 06/08/21 documented as of this encounter
--- OUTSIDE RECORDS SUMMARY | 2024-06-06 05:27 | XMS_ITS | Encounter Summary ---
Author Organization [facility] Address [address] [facility] [address] [place] [address] Care Team Providers Care Cashier Checker Name Role Phone No, Physician Unavailable Lorie Vanessa NP Primary Care Provider [phone] Encounter Details Date Type Department Care Team (Late st Contact Info) Description 08/23/2022 Documentation [facility] Gastroenterology at [address] [place] [address] Cj Thomas MD [address] [place] [address] [address] [place], [place] [id number] Social History Tobacco Use Types Packs/Day Years Used Date Smoking Tobacco: Never PHQ-2 Answer Date Recorded PHQ-2 Total Score (If total score is 3 or more points, staff should administer the PHQ-9) 0 04/12/2022 Comments No Sex and Gender Information Value Date Recorded Sex Assigned at Not on file Legal Sex Female 6:55 PM CAGE LOADER Gender Identity Female 06/06/2022 7:40 AM CAGE LOADER Sexual Orientation Not on file documented as [...] on filedocumented in this encounter Care Teams Cashier Checker Relationship Specialty Start Date End Date Lorie Vanessa NP [address] [place] [address] PCP - General Family Practice 05/29/22 No, Physician 06/08/21 documented as of this encounter
--- OUTSIDE RECORDS SUMMARY | 2024-06-06 05:27 | XMS_ITS | Encounter Summary ---
Author Organization [facility] Address [address] [place] [address] Care Team Providers Care Supervisor Electronics Processing Name Role Phone No, Physician Unavailable Lorie Vanessa NP Primary Care Provider [phone] Encounter Details Date Type Department Care Team (Late st Contact Info) Description 07/12/2022 Patient Self-Triage [facility]/ Physicians [address] [place] [address] Mychart, Generic Provider [address] [place] [address] Social History Tobacco Use Types Packs/Day Years Used Date Smoking Tobacco: Never PHQ-2 Answer Date Recorded PHQ-2 Total Score (If total score is 3 or more points, staff should administer the PHQ-9) 0 04/12/2022 Comments No Sex and Gender Information Value Date Recorded Sex Assigned at Not on file Legal Sex Female 6:55 PM IMPORT AND EXPORT CLERK Gender Identity Female 06/06/2022 7:40 AM IMPORT AND EXPORT CLERK Sexual Orientation Not on file documented as of this encounter Plan of Treatment Not on file documented as of this encounter Visit Diagnoses Not on filedocumented in this encounter Care Teams Supervisor Electronics Processing Relationship Specialty Start Date End Date Lorie Vanessa NP [address] [place], [place] [id number] PCP - General Family Practice 05/29/22 No, Physician 06/08/21 documented as of this encounter
--- OUTSIDE RECORDS SUMMARY | 2024-06-06 05:27 | XMS_ITS | Encounter Summary ---
Author Organization [facility] Healthcare Address [address] [place] [address] Care Team Providers Care Collateral Specialist Name Role Phone No, Physician Primary Care Provider [phone] Reason for Visit * Reason Onset Date Comments COVID-19 EVALUATION 05/26/2021 Encounter Details Date Type Department Care Team (Late st Contact Info) Description 05/26/2021 Telephone [facility] [address] (Third Floor) [place] [address] Janie Timmons RN COVID-19 EVALUATION Social History Tobacco Use Types Packs/Day Years Used Date Smoking Tobacco: Never Assessed Comments Unknown Sex and Gender Information Value Date Recorded Sex Assigned at Not on file Legal Sex Female 6:55 PM ENTRY OPERATOR Gender Identity Female 06/06/2022 7:40 AM ENTRY OPERATOR Sexual Orientation Not on file documented as of this encounter Miscellaneous Notes * Telephone Encounter - Janie Timmons RN - 05/26/2021 9:38 AM CST Employee COVID-19 Screening 05/26/2021 Vaccine related call? No Email: [email or web address] Employee/Student ID# [id number] Are you an employee or student? Employee Employer: [facility] Employee Facility: [facility] Does your job primarily involve providing care for bone marrow transplant patients? 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 On-site Have you been tested for Covid-19 previously? Yes Have you ever had a positive COVID-19 swab or saliva test? No What was the date of your most recent negative test? 05/25/2021 What was the date of your most recent negative test? rapid tested at [facility] Have you been vaccinated against Covid-19? Yes [...] and test for symptoms Testing Site Location: [facility] Patient referred by Occupational Health for Covid-19 [...] go to the employee testing site at [place] 05/26/21. ??? While you are awaiting testing [...] Occupational Health will notify you and your manager university when you can return to work. ??? Should your test result positive, OH will work with you to identify any close contacts you may have had at work. OH will then alert your work contacts directly; you do not have to. Your trust evaluation supervisor should consult with OH if they have any questions and before any communication with coworkers about a positive test. OH will help ensure that coworkers potentially at risk are notified and given appropriate advice without unnecessary disclosure of personal health information. ??? We will send you an email with self-quarantine instructions (see [facility] Guidance for At-Home Isolation: Employees). ??? You must follow any additional isolation or quarantine instructions provided to you from federal, state or local public health authorities. ??? You should let your trust evaluation supervisor know that you will not be coming to work. Although the Call Center will email your trust evaluation supervisor to confirm that you have been instructed not to come to work, it is still your responsibility to notify your trust evaluation supervisor as you would for any other work absence. You should receive an email from the call center with these instructions. The email will come from [email or web address]; if you do not receive it, please check to see if your email call center consultant has automatically routed it to [facility]. Y OPERATOR documented in this encounter Plan of Treatment Not on file documented as of this encounter Results * Influenza A/B and COVID-19 PCR Nasopharyngeal (05/26/2021 10:54 AM ENTRY OPERATOR) COVID-19 RNA Not Detected [facility] Comment: Interpretive Data Synonyms for this test include: PCR and NAAT . ??Testing performed by the [facility] Molecular Infectious Disease Laboratory. The 2019-Novel [...] 2020. Influenza A RNA Not Detected [facility] Influenza B RNA Not Detected [facility] Comment: Interpretive Data Testing performed by the [facility] Molecular Infectious Disease Laboratory. This test is performed using the pieter Influenza A/B Assay. This is a real-time RT-PCR test for the qualitative detection of nucleic acid from Influenza A and Influenza B. This assay has been reviewed by the FDA for Emergency Use Authorization (EUA). The performance characteristics have been verified by the [facility] Laboratory. Results should be interpreted in combination with clinical context and a negative result does not rule out infection. ?? Interpretive data last revised 2020. First COVID-19 test? No [facility] Employeed in healthcare? Yes [facility] status? No [facility] Group care resident? No [facility] Hospitalized? No [facility] Is patient in ICU? No [facility] Symptomatic as defined by CDC? Yes [facility] Nasopharyngeal 05/26/2021 10 :54 AM ENTRY OPERATOR 05/27/2021 8:34 AM ENTRY OPERATOR Narrative [facility] - 05/27/2021 6:57 PM ENTRY OPERATOR Patient is employed by/enrolled at:->[facility] [employer] Date of Symptom Onset->05/22/21 us Tanya Montaño MD LAB MICROBIOLOGY - GENERAL ORDERABLES Final Result [facility] Department [place] [address] documented in this encounter Visit Diagnoses Diagnosis Cough- Primary Cough documented in this encounter Additional Health Concerns Infection Onset Date Last Indicated Resolved Time COVID: Suspected 05/26/2021 05/26/2021 05/27/2021 6:58 PM ENTRY OPERATOR documented as of this encounter Care Teams Collateral Specialist Relationship Specialty Start Date End Date No, Physician PCP - General 05/25/21 06/07/21 documented as of this encounter
--- OUTSIDE RECORDS SUMMARY | 2024-06-06 05:27 | XMS_ITS | Encounter Summary ---
Author Organization [facility] Healthcare Address [address] [place] [address] Care Team Providers Care Rocket Motor Mechanic Name Role Phone Unknown, Notinfile Primary Care Provider Unavail able No, Physician Unavailable Reason for Visit * Reason Onset Date Comments COVID-19 EVALUATION 06/12/2021 Encounter Details Date Type Department Care Team (Late st Contact Info) Description 06/12/2021 Telephone [facility] [id number] Floor) [place] [address] Yuly Nice, RN COVID-19 EVALUATION Social History Tobacco Use Types Packs/Day Years Used Date Smoking Tobacco: Never Comments Unknown Sex and Gender Information Value Date Recorded Sex Assigned at Not on file Legal Sex Female 6:55 PM EXECUTIVE ASST Gender Identity Female 06/06/2022 7:40 AM EXECUTIVE ASST Sexual Orientation Not on file documented as of this encounter Miscellaneous Notes * Telephone Encounter - Yuly Nice RN - 06/12/2021 9:13 AM CST Employee COVID-19 Screening 05/26/2021 06/12/2021 Vaccine related call? No No Email: [email or web address] Employee/Student ID# [id number] Are you an employee or student? Employee Employee Employer: [employer] Employee Facility: [facility] Does your job primarily involve providing care for bone marrow transplant patients? 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 On-site On-site Have you been tested for Covid-19 previously? Yes - Have you ever had a positive COVID-19 swab or saliva test? No - What was the date of your most recent negative test? 05/25/2021 - What was the date of your most recent negative test? rapid tested at [facility] - Have you been vaccinated against Covid-19? [...] and test for symptoms Testing Site Location: [facility] Script A0 (Stay home and test) for symptomatic, exposed HCW, symptomatic, unexposed Non-HCW or Vaccinated Non-HCW Thank you for calling the Employee COVID-19 Call Center. This email contains the same information and recommendations discussed during your call. You should also forward this information to your hull outfit supervisor as confirmation. Given your symptoms, you should not come to work and will be referred for combined COVID/Influenza testing. Or, if you have had a COVID infection in the past 3 months, you will be tested for influenza only. ??? If you are at work on site, you must leave work now. Notify your hull outfit supervisor that you have been directed to do so by the Occupational Health Employee COVID- 19 Call Center. ??? Please go to the employee testing site as directed for your test. They should be expecting you;if there is any confusion, please call us at [phone]. ??? While you are awaiting testing and results, you must remain off work. You should isolate yourself at home, avoid contact with any household members as much as possible, and stay in your home without leaving except for medical care. ??? You should let your hull outfit supervisor know that you will not be coming to work. Although we will emailyour hull outfit supervisor to confirm this, it is still your responsibility to notify your hull outfit supervisor as you would for any other work absence. We will notify you of your test results, which are usually available within 24- 48 hours. Your results will also post to your [facility] My Chart account ([email or web address]). Once yourresults are back, you will receive further instruction from Occupational Health. If you test positive for COVID-19, you must be cleared by Occupational Health (OH) before you can return to work. OH will notify you and your culinary manager when you can return to work. Should your test result positive, OH will work with you to identify any close contacts you may have had at work. OH willthen alert your work contacts directly; you do not have to. Your hull outfit supervisor should consult with OH if they [...] a negative test result, you and your hull outfit supervisor must decide when it is appropriate for you to return to work, using the guidance that will be send with your negative test notification. UTIVE ASST documented in this encounter Plan of Treatment Not on file documented as of this encounter Results * (ABNORMAL) Influenza A/B and COVID-19 PCR Nasopharyngeal (06/13/2021 9:51 AM EXECUTIVE ASST) COVID-19 RNA Detected(A) [facility] Comment: Interpretive Data Synonyms for this test include: PCR and NAAT . ??Testing performed by the [facility] Molecular Infectious Disease Laboratory. The 2019-Novel Coronavirus [...] 30, 2020. Influenza A RNA Not Detected [facility] Influenza B RNA Not Detected [facility] Comment: Interpretive Data Testing performed by the [facility] Molecular Infectious Disease Laboratory. This test is performed using the pieter Influenza A/B Assay. This is a real-time RT-PCR test for the qualitative detection of nucleic acid from Influenza A and Influenza B. This assay has been reviewed by the FDA for Emergency Use Authorization (EUA). The performance characteristics have been verified by the [facility] Laboratory. Results should be interpreted in combination with clinical context and a negative result does not rule out infection. ?? Interpretive data last revised 2020. First COVID-19 test? No [facility] Employeed in healthcare? Yes [facility] status? Unknown [facility] Group care resident? No [facility] Hospitalized? No [facility] Is patient in ICU? No [facility] Symptomatic as defined by CDC? Yes [facility] Nasopharyngeal 06/13/2021 9: 51 AM EXECUTIVE ASST 06/13/2021 1:33 PM EXECUTIVE ASST Narrative [facility] - 06/13/2021 8:28 PM EXECUTIVE ASST Patient is employed by/enrolled at:->[employer] Date of Symptom Onset->06/07/21 Reason for testing?->Symptomatic us Tanya Montaño MD LAB MICROBIOLOGY - GENERAL ORDERABLES Final Result [facility] [place] [address] documented in this encounter Visit Diagnoses Diagnosis Cough- Primary Cough documented in this encounter Additional Health Concerns Infection Onset Date Last Indicated Resolved Time COVID: Suspected 06/12/2021 06/13/2021 06/13/2021 8:28 PM EXECUTIVE ASST documented as of this encounter Care Teams Rocket Motor Mechanic Relationship Specialty Start Date End Date Unknown, Notinfile PCP - General 06/08/21 08/18/21 No, Physician 06/08/21 documented as of this encounter
--- OUTSIDE RECORDS SUMMARY | 2024-06-06 05:27 | XMS_ITS | Encounter Summary ---
Author Organization [facility] Address [address] [place] [address] Care Team Providers Care Barrelhead Inspector Name Role Phone No, Physician Unavailable Lorie Vanessa NP Primary Care Provider [phone] Reason for Visit * Reason Comments Abdominal Pain Pt states seen Satur day and dx with cyst on left ovary. Today at pmd and started with vaginal bleeding/cramping. Still having upper abd pain. Encounter Details Date Type Department Care Team (Late st Contact Info) Description 07/11/2022 7:06 PM WOOD TREATING INSPECTOR - 07/12/2022 12:55 AM [facility] Emergency [facility] Emergency Department [address] [place] [address] Can Valdez MD [address] [place] [address] [place] [address] Abdominal pain (Primary Dx); Cyst of left [...] on file Legal Sex Female 6:55 PM WOOD TREATING INSPECTOR Gender Identity Female 06/06/2022 7:40 AM WOOD TREATING INSPECTOR Sexual Orientation Not on file documented as of this encounter Last Filed Vital Signs Vital Sign Reading Time Taken Comments Blood Pressure 121/87 07/12/2022 12:35 AM WOOD TREATING INSPECTOR Pulse 94 07/12/2022 12:50 AM WOOD TREATING INSPECTOR Temperature 36.9 ??C (98.4 ??F) 07/11/2022 6:01 PM CS T Respiratory Rate 20 07/12/2022 12:5 0 AM WOOD TREATING INSPECTOR Oxygen Saturation 97% 07/12/2022 12: 50 AM WOOD TREATING INSPECTOR Inhaled Oxygen Concentration - - Weight 122.2 kg (269 lb 6.4 oz) 07/11/2022 6:01 PM WOOD TREATING INSPECTOR Height 162.6 cm (5' 4 ) 07/11/2022 6:01 PM WOOD TREATING INSPECTOR Body Mass Index 46.24 07/11/2022 6:01 PM WOOD TREATING INSPECTOR documented in this encounter Discharge Instructions * Discharge Instructions* Can Valdez MD - 07/12/2022 12:30 AM WOOD TREATING INSPECTOR Please follow up with your primary care [...] open17/12 and will take care of you. TREATING INSPECTOR * Attachments The following attachments cannot be sent through Care Everywhere. * Ovarian Cyst (AfterCare(R) Instructions(ER/ED)) (Norwegian) * Acute Abdominal Pain (AfterCare(R) Instructions(ER/ED)) (Norwegian) documented in this encounter Medications at Time [...] has follow-up with her OBGYN out of [facility] regularly. No past medical history on file. [...] time. Mental status is at baseline. Procedures [facility] Labs Reviewed URINALYSIS AND REFLEX TO [...] tendency for uric acid stone formation. Source: [facility] [employer].Last revised 06-06-2017 CBC WITH AUTO DIFFERENTIAL - [...] left ovarian cyst, I called in the guitar technician from home for repeat TVUS.No torsion - hemorrhagic cyst is decreased in size. Her abd is not peritoneal. I discussed with her the need to f/u with her electronic warfare technical. Pt is visibly frustrated and states she won'tbe able to see her electronic warfare technical because she is out of town. I offered her referral to a new electronic warfare technical with this system but the patient adamantly declines. I offered her pain medications but she states they just make me sick . After a lengthy discussion, pt agreed to take pain medications. Pt will be discharged with pain medications and plan to f/u with her pcp and electronic warfare technical. Vitals stable on discharge. Clinical Impression: Abdominal pain Cyst of left ovary Hemorrhagic cyst of left ovary Can Valdez MD 07/12/22 0059 TREATING INSPECTOR TREATING INSPECTOR TREATING INSPECTOR documented in this encounter Plan of Treatment Not on file documented as of this encounter Procedures Procedure Name Priority Date/Time Associated Diagnosis Comments US TRANSVAGINAL ED 07/11/2022 9:50 PM WOOD TREATING INSPECTOR POCT HCG, URINE STAT 07/11/2022 7:18 PM WOOD TREATING INSPECTOR URINALYSIS AND REFLEX TO MICROSCOPIC AND CULTURE STAT 07/11/2022 7:09 PM WOOD TREATING INSPECTOR URINALYSIS, MICROSCOPIC ONLY STAT 07/11/2022 7:09 PM WOOD TREATING INSPECTOR SEPSIS LACTATE WITH REFLEX STAT 07/11/2022 6:50 PM WOOD TREATING INSPECTOR EGFR STAT 07/11/2022 6:50 PM WOOD TREATING INSPECTOR DIFFERENTIAL AUTO STAT 07/11/2022 6:5 0 PM WOOD TREATING INSPECTOR CBC WITH AUTO DIFFERENTIAL STAT 07/11/2022 6:50 PM WOOD TREATING INSPECTOR LIPASE STAT 07/11/2022 6:50 PM WOOD TREATING INSPECTOR COMPREHENSIVE METABOLIC PANEL STAT 07/11/2022 6:50 PM WOOD TREATING INSPECTOR documented in this encounter Results * US Transvaginal (07/11/2022 9:50 PM WOOD TREATING INSPECTOR) Anatomical Region Laterality Modality Pelvis N/A Ultrasound 07/11/2022 11:0 3 PM WOOD TREATING INSPECTOR Narrative 07/11/2022 11:10 PM WOOD TREATING INSPECTOR EXAM DESCRIPTION: ?? US TRANSVAGINAL REASON FOR [...] PM T: ??07/11/2022 11:10 PM Report ID: [id number] Reading Location: ??[id number] Procedure Note Shawn Renteria MD - 07/11/2022 [...] Shawn Renteria M.D. DL: DL Report ID: [id number] Reading Location: [id number] Can Valdez MD IMG US PROCEDURES Final R esult * POCT hCG, urine (07/11/2022 7:18 PM WOOD TREATING INSPECTOR) Pathologist [facility] HCG, ur, POC Negative Lot Number [id number] QC Backgroud Clear Acceptable QC Control Line Acceptable Urine 07/11/2022 7:18 PM WOOD TREATING INSPECTOR us Charmaine LEYVA POINT OF CARE TEST ORDERABL ES Final Result * (ABNORMAL) Urinalysis, microscopic only (07/11/2022 7:09 PM WOOD TREATING INSPECTOR) Pathologist [facility] WBC, ur 0-5 0 - 5 /HPF [facility] Comment:Testing performed by : [facility], [address] [place] [address]., [address] RBC, ur 6-10(A) 0 - 2 /HPF [facility] Comment:Testing performed by : [address] [address] Epithelial cells, squamous, ur >50(A) 0 - 5 /HPF [facility] Comment:Testing performed by : [address] [address] Mucous, ur Present(A) [facility] Comment:Testing performed by : [address] [address] Culture Reflex Comment Reflex conditions for urine culture (WBC >10) not met. [facility] Comment:Testing performed by : [address] [address] Urine 07/11/2022 7:09 PM WOOD TREATING INSPECTOR 07/11/2022 7:12 PM WOOD TREATING INSPECTOR us Charmaine LEYVA LAB URINE ORDERABLES Final Result [facility] Department [place] [address] * (ABNORMAL) Urinalysis reflex to microscopic and culture Urine (07/11/2022 7:09 PM WOOD TREATING INSPECTOR) Color, ur Yellow Yellow FRAN Comment:Testing performed by : [address] [address] Clarity, ur Clear Clear FRAN Comment:Testing performed by : [address] [address] Specific gravity, ur 1.025 1.003 - 1.030 FRAN Comment:Testing performed by : [address] [address] pH, urine 7.0 FARN Comment:Testing performed by : [address] [address] Protein, ur ql Trace Negative FRAN Comment:Testing performed by : [address] [address] Glucose, ur ql Negative Negative FRAN Comment:Testing performed by : [address] [address] Ketones, ur Trace Negative [facility] Comment:Testing performed by : [address] [address] Bilirubin, ur Negative Negative FRAN Comment:Testing performed by : [address], [place]., [address] Blood, ur 2+(A) Negative FRAN Comment:Testing performed by : [address], [place]., [address] Urobilinogen, ur 0.2 <2.0 mg/dL FRAN Comment:Testing performed by : [address], [place]., [address] Nitrite, ur Negative Negative FRAN Comment:Testing performed by : [address] [address] Leukocyte esterase, ur Negative Negative FRAN Comment:Testing performed by : [address], [place]., [address] UA reflex comment Reflex to microscopic UA will be performed. FRAN Comment:Testing performed by : [address] [address] Urine 07/11/2022 7:09 PM WOOD TREATING INSPECTOR 07/11/2022 7:12 PM WOOD TREATING INSPECTOR Narrative FRAN - 07/11/2022 7:31 PM WOOD TREATING INSPECTOR ?? Urine pH is affected by diet, medications, systemic acid-base disturbances, and renal tubular function. ??pH may affect urinary stone formation. ??For example, urine pH below 6.0 may help reduce the tendency for calcium phosphate stones and pH greater than 6.0 may reduce the tendency for uric acid stone formation. Source: [employer]. Last revised 06-06-2017 us Chramaine LEYVA LAB MICROBIOLOGY - GENERAL ORDERABLES Final Result FRAN [address] [facility] Department [place] [address] * eGFR (07/11/2022 6:50 PM WOOD TREATING INSPECTOR) [facility] eGFR 128 mL/min/1. 73 m2 [facility] [...] was last reviewed 2021. Testing performed by: [address] [address] Blood 07/11/2022 6:50 PM WOOD TREATING INSPECTOR 07/11/2022 7:01 PM WOOD TREATING INSPECTOR us Charmaine LEYVA LAB BLOOD ORDERABLES Final Result Performing Organization Address City/State/[facility] Co de Phone Number FRAN [address] [facility] Department [place] [address] * (ABNORMAL) Differential, auto (07/11/2022 6:50 PM WOOD TREATING INSPECTOR) Neutrophil abs 6.9(H) 1.7 - 6.5 K/cumm [facility] Comment:Testing performed by : [address] [address] Imm gran abs 0.0 0.0 - 0.1 K/cumm [facility] Comment:Testing performed by : [address] [address] Lymphocyte abs 2.0 0.8 - 3.3 K/cumm [facility] Comment:Testing performed by : [address] [address] Monocyte abs 0.5 0.2 - 0.8 K/cumm [facility] Comment:Testing performed by : [address], [place]., [address] Eosinophil abs 0.1 0.0 - 0.5 K/cumm [facility] Comment:Testing performed by : [address], [place]., [address] Basophil abs 0.1 0.0 - 0.1 K/cumm [facility] Comment:Testing performed by : [address] [address] Neutrophil pct 71.7 % [facility] Comment: Interpretive Data Percent cell count reference ranges are not reported, since discordance with absolute values may lead to misinterpretation of CBC data. Current Interpretive Data was last revised on 2017. Testing performed by: [address] [address] Imm gran pct 0.4 % [facility] Comment: Interpretive Data Percent cell count reference ranges are not reported, since discordance with absolute values may lead to misinterpretation of CBC data. Current Interpretive Data was last revised on 2017. Testing performed by: [address] [address] Lymphocyte pct 20.8 % [facility] Comment: Interpretive Data Percent cell count reference ranges are not reported, since discordance with absolute values may lead to misinterpretation of CBC data. Current Interpretive Data was last revised on 2017. Testing performed by: [address] [address] Monocyte pct 5.6 % [facility] Comment: Interpretive Data Percent cell count reference ranges are not reported, since discordance with absolute values may lead to misinterpretation of CBC data. Current Interpretive Data was last revised on 2017. Testing performed by: [address] [address] Eosinophil pct 0.9 % [facility] Comment: Interpretive Data Percent cell count reference ranges are not reported, since discordance with absolute values may lead to misinterpretation of CBC data. Current Interpretive Data was last revised on 2017. Testing performed by: [address] [address] Basophil pct 0.6 % FRAN Comment: Interpretive Data Percent cell count reference ranges are not reported, since discordance with absolute values may lead to misinterpretation of CBC data. Current Interpretive Data was last revised on 2017. Testing performed by: [address] [address] Blood 07/11/2022 6:50 PM WOOD TREATING INSPECTOR 07/11/2022 7:01 PM WOOD TREATING INSPECTOR Charmaine LEYVA LAB BLOOD ORDERABLES Final Result Performing Organization Address City/[facility]/ZIP Co de Phone Number [address] [employer] [place] [address] * Lipase (07/11/2022 6:50 PM WOOD TREATING INSPECTOR) Lipase 24 10 - 99 Units/L FRAN Comment:Testing performed by : [address] [address] Blood 07/11/2022 6:50 PM WOOD TREATING INSPECTOR 07/11/2022 7:01 PM WOOD TREATING INSPECTOR us Charmaine LEYVA LAB BLOOD ORDERABLES Final Result Performing Organization Address City/[facility]/ZIP Co de Phone Number [address] [address] * Sepsis Lactate w/ Reflex (07/11/2022 6:50 PM WOOD TREATING INSPECTOR) Sepsis Lactate 1.2 0.7 - 2.0 mmol/L FRAN Comment:Testing performed by : [address] [address] Blood 07/11/2022 6:50 PM WOOD TREATING INSPECTOR 07/11/2022 7:01 PM WOOD TREATING INSPECTOR us Charmaine LEYVA LAB BLOOD ORDERABLES Final Result FRAN [address] [facility] Department [place] [address] * (ABNORMAL) Comprehensive metabolic panel (07/11/2022 6:50 PM WOOD TREATING INSPECTOR) Sodium 139 135 - 145 mmol/L FRAN Comment:Testing performed by : [address] [address] Potassium, pl 3.9 3.3 - 4.9 mmol/L FRAN Comment:Testing performed by : [address] [address] Chloride 104 97 - 110 mmol/L FRAN Comment:Testing performed by : [address] [address] CO2 25 22 - 32 mmol/L FRAN Comment:Testing performed by : [address] [address] Anion gap 10 2 - 15 mmol/L FRAN Comment:Testing performed by : [address] [address] BUN 7(L) 8 - 25 mg/dL FRAN Comment:Testing performed by : [address] [address] Creatinine 0.60 0.60 - 1.10 mg/dL FRAN Comment:Testing performed by : [address] [address] Glucose 96 70 - 199 mg/dL FRAN [...] was last revised 2022. Testing performed by: [address] [address] Calcium 9.2 8.5 - 10.3 mg/dL FRAN Comment:Testing performed by : [address] [address] Bilirubin, total 0.3 0.1 - 1.2 mg/dL FRAN Comment:Testing performed by : [address] [address] Protein, pl 7.6 6.5 - 8.5 g/dL FRAN Comment:Testing performed by : [address] [address] Albumin 4.4 3.5 - 5.0 g/dL FRAN Comment:Testing performed by : [address] [address] Alk phos 90 40 - 130 Units/L FRAN Comment:Testing performed by : [address] [address] ALT 10 7 - 45 Units/L FRAN Comment:Testing performed by : [address] [address] AST 14 10 - 45 Units/L FRAN Comment:Testing performed by : [address] [address] Blood 07/11/2022 6:50 PM WOOD TREATING INSPECTOR 07/11/2022 7:01 PM WOOD TREATING INSPECTOR us Charmaine LEYVA LAB BLOOD ORDERABLES Final Result [facility] [address] [facility] Department of Laboratories [place], [place] [id number] * (ABNORMAL) CBC with auto differential (07/11/2022 6:50 PM WOOD TREATING INSPECTOR) [facility] WBC 9.6 3.8 - 9.9 K/cumm FRAN Comment:Testing performed by : [address] [address] Hgb 14.5 11.9 - 15.5 g/dL FRAN Comment:Testing performed by : [address], [address] Hct 43.4 35.6 - 45.5 % FRAN Comment:Testing performed by : [address], [address] Plt 385 150 - 400 K/cumm FRAN Comment:Testing performed by : [address] [address] MPV 8.3(L) 9.1 - 12.3 fL FRAN Comment:Testing performed by : [address], [address] RBC 5.14 3.90 - 5.20 M/cumm FRAN Comment:Testing performed by : [address], [address] MCV 84.4 81.3 - 96.4 fL FRAN Comment:Testing performed by : [address], [address] MCH 28.2 27.1 - 33.3 pg FRAN Comment:Testing performed by : [address], [address] MCHC 33.4 32.3 - 35.7 g/dL FRAN Comment:Testing performed by : [address], [address] RDW CV 11.8 11.1 - 14.9 % FRAN Comment:Testing performed by : [address], [address] RDW SD 36.0 35.7 - 48.1 fL FRAN Comment:Testing performed by : [address], [address] NRBC abs 0.00 0.00 - 0.01 K/cumm FRAN Comment:Testing performed by : [address], [address] Blood 07/11/2022 6:50 PM WOOD TREATING INSPECTOR 07/11/2022 7:01 PM WOOD TREATING INSPECTOR us Charmaine LEYVA LAB BLOOD ORDERABLES Final Result [facility] [address] [facility] Department [place] [address] documented in this encounter Visit Diagnoses Diagnosis [...] intravenous, Administer over 2 Minutes, Once, On [place] 07/12/22 at 0025, For 1 dose Given 07/12/2022 12:34 AM WOOD TREATING INSPECTOR 0.5 mg ketorolac (TORADOL) 30 mg/mL (1 mL) injection 15 mg 15 mg, intravenous, Once, On Sat07/11/22 at 2028, For 1 dose, For Adult IV push, administer over 15 seconds Given 07/11/2022 8:37 PM WOOD TREATING INSPECTOR 15 mg morphine injection 4 mg 4 mg, intravenous, Administer over 4 Minutes, Once, On Sat07/11/22 at 8, For 1 dose Given 07/11/2022 9:20 PM WOOD TREATING INSPECTOR 4 mg ondansetron (ZOFRAN) injection 4 mg 4 mg, intravenous, Administer over 2 Minutes, Once, On Sat07/11/22 at 2028, For 1 dose Given 07/11/2022 8:37 PM WOOD TREATING INSPECTOR 4 mg sodium chloride 0.9% bolus 1,000 mL 1,000 mL, intravenous, at 1,000 mL/hr, Administer over 1 Hours, Once, On Sat07/11/22 at 2028, For 1 dose New Bag 07/11/2022 8:37 PM WOOD TREATING INSPECTOR 1,000 mL 100 0 mL/hr documented in this encounter Discontinued Medications Medication Sig Discontinue Reason Start Date End Da te HYDROcodone-acetaminophe n (NORCO) 5-325 mg per tablet Take 1 tablet by mouth 06/25/2022 07/12/2022 documented as of this encounter Active and Recently Administered Medications Times are shown in WOOD TREATING INSPECTOR. Scheduled Medication Order 07/10/2022 07/11/2022 07/12/2022 HYDROmorphone [...] KAYLEY) documented in this encounter Care Teams Barrelhead Inspector Relationship Specialty Start Date End Date Lorie Vanessa NP [address] [place] [id number] PCP - General Family Practice 05/29/22 No, Physician 06/08/21 documented as of this encounter
--- OUTSIDE RECORDS SUMMARY | 2024-06-06 05:27 | XMS_ITS | Encounter Summary ---
Author Organization [facility] Healthcare Address [address] [place] [address] Care Team Providers Care Driver License Examiner Name Role Phone No, Physician Unavailable Lorie Vanessa NP Primary Care Provider [phone] Reason for Visit * Reason Comments Abdominal Pain Vomiting Diarrhea Encounter Details Date Type Department Care Team (Late st Contact Info) Description 07/07/2022 11:56 AM PC NETWORK TECHNICIAN - 07/07/2022 4:52 PM [facility] Emergency [facility] Emergency Department [address] [place] [address] RUQ pain (Primary Dx); Left [...] on file Legal Sex Female 6:55 PM PC NETWORK TECHNICIAN Gender Identity Female 06/06/2022 7:40 AM PC NETWORK TECHNICIAN Sexual Orientation Not on file documented as of this encounter Last Filed Vital Signs Vital Sign Reading Time Taken Comments Blood Pressure 111/75 07/07/2022 4:40 PM PC NETWORK TECHNICIAN Pulse 91 07/07/2022 4:40 PM PC NETWORK TECHNICIAN Temperature 36.6 ??C (97.9 ??F) 07/07/2022 1 1:14 AM PC NETWORK TECHNICIAN Respiratory Rate 18 07/07/2022 4:40 PM PC NETWORK TECHNICIAN Oxygen Saturation 97% 07/07/2022 4:40 PM PC NETWORK TECHNICIAN Inhaled Oxygen Concentration - - Weight 121.8 kg (268 lb 8.3 oz) 023 11:14 AM PC NETWORK TECHNICIAN Height 162.6 cm (5' 4 ) 07/07/2022 11:1 4 AM PC NETWORK TECHNICIAN Body Mass Index 46.09 07/07/2022 11:14 AM PC NETWORK TECHNICIAN documented in this encounter Discharge Instructions * Discharge Instructions* Devorah Calhoun PA - 07/07/2022 4:41 PM PC NETWORK TECHNICIAN Take medication as prescribed. Follow up with [...] symptoms, worsening of symptoms, or persistent symptoms NETWORK TECHNICIAN * Attachments The following attachments cannot be sent through Care Everywhere. * Acute Nausea and Vomiting (AfterCare(R) Instructions(ER/ED)) (Citizen Of [place]) * Abdominal Pain (Patrol Agent) (Citizen Of [place]) * Ovarian Cyst (AfterCare(R) Instructions(ER/ED)) (Citizen Of [place]) documented in this encounter Medications at Time [...] total) by mouth daily 02/23/2022 3 vit no.[id number] 28 mg iron- 800 mcg tablet Take [...] by mouth daily, Disp: , Rfl: vit no.[id number] 28 mg iron- 800 mcg tablet, Take [...] tendency for uric acid stone formation. Source: [employer].Last revised 06-06-2017 CBC WITH AUTO DIFFERENTIAL - [...] INSTRUCTED TO FOLLOW UP Lorie Vanessa, DUDLEY [address] [place] [address] In 2 days for re-evaluation and [...] (37.5 mg total) by mouth daily vit no.[id number] 28 mg iron- 800 mcg tablet Take 1 tablet by mouth daily sertraline 100 mg tablet Commonly known as: ZOLOFT Take 100 mg by mouth daily traZODone 50 mg tablet Commonly known as: DESYREL Take 2 tablets (100 mg total) by mouth nightly Where to Get Your Medications These medications were sent to [id number] - [place], [place] - [address] [facility] [address] [facility] [id number] promethazine 25 mg tablet This examination was transcribed using the Arant[employer] voice recognition system without human sorting and folding supervisor. In an effort to expedite patient care, this report has not been adjusted for typographical, grammatical, and syntax by a trained medical art therapist. Devorah Calhoun PA 07/07/22 8050 Cosigned by Gopi Zaragoza MD at 07/07/2022 5:59 PM PC NETWORK TECHNICIAN NETWORK TECHNICIAN NETWORK TECHNICIAN * Tiffany Chavira, RN - 07/07/2022 11:12 AM CST RUQ pain that wraps around to the back for 3 days, worsening pain with N/V/D onset at 0400. Hx IBS NETWORK TECHNICIAN documented in this encounter Plan of Treatment Not on file documented as of this encounter Procedures Procedure Name Priority Date/Time Associated Diagnosis Comments US TRANSVAGINAL ED 07/07/2022 3:37 PM PC NETWORK TECHNICIAN CT ABDOMEN PELVIS W CONTRAST ED 07/07/2022 2:07 PM PC NETWORK TECHNICIAN POCT HCG, URINE STAT 07/07/2022 12:07 PM PC NETWORK TECHNICIAN EGFR STAT 07/07/2022 11:28 AM PC NETWORK TECHNICIAN DIFFERENTIAL AUTO STAT 07/07/2022 11: 28 AM PC NETWORK TECHNICIAN URINALYSIS AND REFLEX TO MICROSCOPIC AND CULTURE STAT 07/07/2022 11:28 AM PC NETWORK TECHNICIAN CBC WITH AUTO DIFFERENTIAL STAT 07/07/2022 11:28 AM PC NETWORK TECHNICIAN URINALYSIS, MICROSCOPIC ONLY STAT 07/07/2022 11:28 AM PC NETWORK TECHNICIAN LIPASE STAT 07/07/2022 11:28 AM PC NETWORK TECHNICIAN COMPREHENSIVE METABOLIC PANEL STAT 07/07/2022 11:28 AM PC NETWORK TECHNICIAN documented in this encounter Results * US Transvaginal (07/07/2022 3:37 PM PC NETWORK TECHNICIAN) Anatomical Region Laterality Modality Pelvis N/A Ultrasound 07/07/2022 3:57 PM PC NETWORK TECHNICIAN Narrative 07/07/2022 4:05 PM PC NETWORK TECHNICIAN EXAM DESCRIPTION: ?? US TRANSVAGINAL REASON FOR [...] PM T: ??07/07/2022 4:05 PM Report ID: [id number] Reading Location: ??[id number] Procedure Note Aamir Reyes MD - 07/07/2022 EXAM DESCRIPTION: US TRANSVAGINAL REASON FOR STUDY: Abnormal CT scan. Abdominal pain. Right sidedabdominal pain for 3 days. Worsening nausea, vomiting, and diarrhea. TECHNIQUE: Grayscale ultrasound of the pelvic contents was performed with transvaginal transducer. COMPARISON: CT abdomen and pelvis 07/07/2022, pelvic [id number]/26/2022 FINDINGS: UTERUS: The uterus is anteverted. The [...] Aamir Reyes M.D. LB: YADIEL Report ID: [id number] Reading Location: [id number] us Devorah LEYVA IMG US PROCEDURES Final R esult * CT Abdomen Pelvis W Contrast (07/07/2022 2:07 PM PC NETWORK TECHNICIAN) Anatomical Region Laterality Modality Body N/A Computed Tomogra phy 07/07/2022 2:31 PM PC NETWORK TECHNICIAN Narrative 07/07/2022 2:49 PM PC NETWORK TECHNICIAN EXAM DESCRIPTION: ?? CT ABDOMEN PELVIS W [...] PM T: ??07/07/2022 2:49 PM Report ID: [id number] Reading Location: ??[id number] Procedure Note Marleen George MD - 07/07/2022 EXAM DESCRIPTION: CT ABDOMEN PELVIS W CONTRAST REASON FOR STUDY: Abdominal pain, acute, nonlocalized Table formatting from the original note was not included. RUQ painthat wraps around to the back for 3 days, worsening pain with N/V/D onset [id number]. Hx IBS TECHNIQUE: CT scan of the [...] Marleen George M.D. QX: QX Report ID: [id number] Reading Location: [id number] us Devorah SINGLETARY CT PROCEDURES Final R esult * POCT hCG, urine (07/07/2022 12:07 PM PC NETWORK TECHNICIAN) HCG, ur, POC Negative Lot Number [id number] QC Backgroud Clear Acceptable QC Control Line Acceptable Urine 07/07/2022 12:0 7 PM PC NETWORK TECHNICIAN Devorah LEYVA POINT OF CARE TEST ORDERA BLES Final Result * eGFR (07/07/2022 11:28 AM PC NETWORK TECHNICIAN) Pathologist [facility] eGFR 128 mL/min/1. 73 m2 FRAN HAYS [...] reviewed 2021. Testing performed by: [facility], [address] [place] [address], [place]., [address] Blood 07/07/2022 11:2 8 AM PC NETWORK TECHNICIAN 07/07/2022 11:49 AM PC NETWORK TECHNICIAN Devorah LEYVA LAB BLOOD ORDERABLES Magda l Result FRAN [address] [facility] [place] [address] * (ABNORMAL) Differential, auto (07/07/2022 11:28 AM PC NETWORK TECHNICIAN) Neutrophil abs 12.2(H) 1.7 - 6.5 K/cumm FRAN Comment:Testing performed by : [address] [address] Imm gran abs 0.1 0.0 - 0.1 K/cumm FRAN Comment:Testing performed by : [address] [address] Lymphocyte abs 1.0 0.8 - 3.3 K/cumm FRAN Comment:Testing performed by : [address] [address] Monocyte abs 0.9(H) 0.2 - 0.8 K/cumm FRAN Comment:Testing performed by : [address] [address] Eosinophil abs 0.2 0.0 - 0.5 K/cumm FRAN Comment:Testing performed by : [address] [address] Basophil abs 0.0 0.0 - 0.1 K/cumm FRAN Comment:Testing performed by : [address] [address] Neutrophil pct 84.8 % FRAN Comment: Interpretive Data Percent cell count reference ranges are not reported, since discordance with absolute values may lead to misinterpretation of CBC data. Current Interpretive Data was last revised on 2017. Testing performed by: [address] [address] Imm gran pct 0.3 % FRAN Comment: Interpretive Data Percent cell count reference ranges are not reported, since discordance with absolute values may lead to misinterpretation of CBC data. Current Interpretive Data was last revised on 2017. Testing performed by: [address] [address] Lymphocyte pct 7.2 % FRAN Comment: Interpretive Data Percent cell count reference ranges are not reported, since discordance with absolute values may lead to misinterpretation of CBC data. Current Interpretive Data was last revised on 2017. Testing performed by: [address] [address] Monocyte pct 6.4 % FRAN Comment: Interpretive Data Percent cell count reference ranges are not reported, since discordance with absolute values may lead to misinterpretation of CBC data. Current Interpretive Data was last revised on 2017. Testing performed by: [address] [address] Eosinophil pct 1.0 % FRAN Comment: Interpretive Data Percent cell count reference ranges are not reported, since discordance with absolute values may lead to misinterpretation of CBC data. Current Interpretive Data was last revised on 2017. Testing performed by: [address] [address] Basophil pct 0.3 % FRAN Comment: Interpretive Data Percent cell count reference ranges are not reported, since discordance with absolute values may lead to misinterpretation of CBC data. Current Interpretive Data was last revised on 2017. Testing performed by: [address] [address] Blood 07/07/2022 11:2 8 AM PC NETWORK TECHNICIAN 07/07/2022 11:49 AM PC NETWORK TECHNICIAN Devorah LEYVA LAB BLOOD ORDERABLES Magda l Result [facility] [address] [facility] Department of Laboratories [place], [place] [id number] * (ABNORMAL) Urinalysis, microscopic only (07/07/2022 11:28 AM PC NETWORK TECHNICIAN) WBC, ur 6-10(A) 0 - 5 /HPF FRAN Comment:Testing performed by : [address] [address] RBC, ur 6-10(A) 0 - 2 /HPF FRAN Comment:Testing performed by : [address] [address] Epithelial cells, squamous, ur >50(A) 0 - 5 /HPF FRAN Comment:Testing performed by : [address] [address] Bacteria, ur Trace(A) FRAN Comment:Testing performed by : [address] [address] Mucous, ur Present(A) FRAN Comment:Testing performed by : [address] [address] Culture Reflex Comment Reflex conditions for urine culture (WBC >10) not met. FRAN Comment:Testing performed by : [address] [address] Urine 07/07/2022 11:2 8 AM PC NETWORK TECHNICIAN 07/07/2022 11:31 AM PC NETWORK TECHNICIAN Devorah LEYVA LAB URINE ORDERABLES Magda l Result Performing Organization Address City/[facility]/ZIP Co de Phone Number [address] [place] [address] * Lipase (07/07/2022 11:28 AM PC NETWORK TECHNICIAN) Lipase 23 10 - 99 Units/L FRAN Comment:Testing performed by : [address] [address] Blood 07/07/2022 11:2 8 AM PC NETWORK TECHNICIAN 07/07/2022 11:49 AM PC NETWORK TECHNICIAN Devorah LEYVA LAB BLOOD ORDERABLES Magda l Result Performing Organization Address City/[facility]/ZIP Co de Phone Number [address] [place] [place] [address] * (ABNORMAL) Urinalysis reflex to microscopic and culture Urine (07/07/2022 11:28 AM PC NETWORK TECHNICIAN) Color, ur Yellow Yellow FRAN Comment:Testing performed by : [address] [address] Clarity, ur Clear Clear FRAN Comment:Testing performed by : [facility], [address] [place] [address], [place]., [address] Specific gravity, ur >=1.030(A) 1.003 - 1.030 FRAN Comment:Testing performed by : [facility], [address] [place] [address], [place]., [address] pH, urine 5.5 FRAN Comment:Testing performed by : [address], [place]., [address] Protein, ur ql 1+(A) Negative FRAN Comment:Testing performed by : [address], [place]., [address] Glucose, ur ql Negative Negative FRAN Comment:Testing performed by : [address], [place]., [address] Ketones, ur 1+(A) Negative FRAN Comment:Testing performed by : [address], [place]., [address] Bilirubin, ur 1+(A) Negative FRAN Comment:Testing performed by : [address], [place]., [address] Blood, ur Negative Negative FRAN Comment:Testing performed by : [address] [address] Urobilinogen, ur 0.2 <2.0 mg/dL FRAN Comment:Testing performed by : [address] [address] Nitrite, ur Negative Negative FRAN Comment:Testing performed by : [address] [address] Leukocyte esterase, ur Trace(A) Negative FRAN Comment:Testing performed by : [address] [address] UA reflex comment Reflex to microscopic UA will be performed. FRAN Comment:Testing performed by : [address] [address] Urine 07/07/2022 11:2 8 AM PC NETWORK TECHNICIAN 07/07/2022 11:31 AM PC NETWORK TECHNICIAN Narrative FRAN - 07/07/2022 11:40 AM PC NETWORK TECHNICIAN ?? Urine pH is affected by diet, medications, systemic acid-base disturbances, and renal tubular function. ??pH may affect urinary stone formation. ??For example, urine pH below 6.0 may help reduce the tendency for calcium phosphate stones and pH greater than 6.0 may reduce the tendency for uric acid stone formation. Source: [employer]. Last revised 06-06-2017 us Devorah LEYVA LAB MICROBIOLOGY - GENERA L ORDERABLES Final Result FRAN [address] [facility] Department [place] [address] * (ABNORMAL) Comprehensive metabolic panel (07/07/2022 11:28 AM PC NETWORK TECHNICIAN) Sodium 136 135 - 145 mmol/L FRAN Comment:Testing performed by : [address] [address] Potassium, pl 4.2 3.3 - 4.9 mmol/L FRAN Comment:Testing performed by : [address] [address] Chloride 103 97 - 110 mmol/L FRAN Comment:Testing performed by : [address] [address] CO2 21(L) 22 - 32 mmol/L FRAN Comment:Testing performed by : [address] [address] Anion gap 12 2 - 15 mmol/L FRAN Comment:Testing performed by : [address] [address] BUN 10 8 - 25 mg/dL FRAN Comment:Testing performed by : [address] [address] Creatinine 0.60 0.60 - 1.10 mg/dL FRAN Comment:Testing performed by : [address] [address] Glucose 108 70 - 199 mg/dL FRAN [...] was last revised 2022. Testing performed by: [address] [address] Calcium 9.3 8.5 - 10.3 mg/dL FRAN Comment:Testing performed by : [address] [address] Bilirubin, total 0.6 0.1 - 1.2 mg/dL FRAN Comment:Testing performed by : [address] [address] Protein, pl 7.8 6.5 - 8.5 g/dL FRAN Comment:Testing performed by : [address], [address] Albumin 4.4 3.5 - 5.0 g/dL [facility] Comment:Testing performed by : [address] [address] Alk phos 100 40 - 130 Units/L FRAN Comment:Testing performed by : [address] [address] ALT 11 7 - 45 Units/L FRAN Comment:Testing performed by : [address] [address] AST 16 10 - 45 Units/L [facility] Comment:Testing performed by : [address] [address] Blood 07/07/2022 11:2 8 AM PC NETWORK TECHNICIAN 07/07/2022 11:49 AM PC NETWORK TECHNICIAN us Devorah LEYVA LAB BLOOD ORDERABLES Magda l Result FRAN [address] [facility] Department of Laboratories [place], [place] [id number] * (ABNORMAL) CBC with auto differential (07/07/2022 11:28 AM PC NETWORK TECHNICIAN) [facility] Signature WBC 14.4(H) 3.8 - 9.9 K/cumm FRAN Comment:Testing performed by : [address] [address] Hgb 14.7 11.9 - 15.5 g/dL FRAN Comment:Testing performed by : [address], [address] Hct 44.2 35.6 - 45.5 % FRAN Comment:Testing performed by : [address], [address] Plt 386 150 - 400 K/cumm FRAN Comment:Testing performed by : [address], [address] MPV 8.5(L) 9.1 - 12.3 fL FRAN Comment:Testing performed by : [address], [address] RBC 5.23(H) 3.90 - 5.20 M/cumm FRAN Comment:Testing performed by : [address], [address] MCV 84.5 81.3 - 96.4 fL FRAN Comment:Testing performed by : [address], [address] MCH 28.1 27.1 - 33.3 pg FRAN Comment:Testing performed by : [address], [address] MCHC 33.3 32.3 - 35.7 g/dL FRAN Comment:Testing performed by : [address], [address] RDW CV 12.3 11.1 - 14.9 % FRAN Comment:Testing performed by : [address], [address] RDW SD 37.4 35.7 - 48.1 fL FRAN Comment:Testing performed by : [address], [address] NRBC abs 0.00 0.00 - 0.01 K/cumm FRAN Comment:Testing performed by : [facility], [address] [place] [address], [place]., [address] Blood 07/07/2022 11:2 8 AM PC NETWORK TECHNICIAN 07/07/2022 11:49 AM PC NETWORK TECHNICIAN us Devorah LEYVA LAB BLOOD ORDERABLES Magda l Result FRAN [address] [facility] Department [place] [address] documented in this encounter Visit [...] 1 dose Contrast Given 07/07/2022 2:07 PM PC NETWORK TECHNICIAN 100 mL ketorolac (TORADOL) 30 mg/mL (1 mL) injection 15 mg 15 mg, intravenous, Once, On 07/07/22 at 1121, For 1 dose, For Adult IV push, administer over 15 seconds, Indications: PainIndications:Pain Given 07/07/2022 12:13 PM PC NETWORK TECHNICIAN 15 mg morphine injection 2 mg 2 mg, intravenous, Administer over 4 Minutes, Once, On 07/07/22 at 1244, For 1 dose Given 07/07/2022 12:49 PM PC NETWORK TECHNICIAN 2 mg morphine injection 2 mg 2 mg, intravenous, Administer over 4 Minutes, Once, On 07/07/22 at 1450, For 1 dose Given 07/07/2022 2:52 PM PC NETWORK TECHNICIAN 2 mg ondansetron (ZOFRAN) injection 4 mg 4 mg, intravenous, Administer over 2 Minutes, Once, On 07/07/22 at 1121, For 1 dose, Indications: Nausea, VomitingIndications:Nause a,Vomiting Given 07/07/2022 12:14 PM PC NETWORK TECHNICIAN 4 mg sodium chloride 0.9% bolus 1,000 mL 1,000 mL, intravenous, at 1,000 mL/hr, Administer over 1 Hours, Once, On 07/07/22 at 1121, For 1 dose New Bag 07/07/2022 12:12 PM PC NETWORK TECHNICIAN 1,000 mL 1000 mL/hr documented in this encounter Active and Recently Administered Medications Times are shown in PC NETWORK TECHNICIAN. Scheduled Medication Order 07/05/2022 07/06/2022 07/07/2022 ketorolac [...] RT) documented in this encounter Care Teams Driver License Examiner Relationship Specialty Start Date End Date Lorie Vanessa NP [facility] [address] PCP - General Family Practice 05/29/22 No, Physician 06/08/21 documented as of this encounter
--- OUTSIDE RECORDS SUMMARY | 2024-06-06 05:27 | XMS_ITS | Encounter Summary ---
Author Organization [facility] Address [address] [facility] [address] [place] [address] Care Team Providers Care Director Process Engineering Name Role Phone No, Physician Unavailable Lorie Vanessa NP Primary Care Provider [phone] Encounter Details Date Type Department Care Team (Late st Contact Info) Description 07/13/[address] [facility] Primary Care at [place] [address] [facility] [address] [place] [address] Lorie Vanessa NP [address] [place] [address] Social History Tobacco Use Types Packs/Day Years Used Date Smoking Tobacco: Never PHQ-2 Answer Date Recorded PHQ-2 Total Score (If total score is 3 or more points, staff should administer the PHQ-9) 0 04/12/2022 Comments No Sex and Gender Information Value Date Recorded Sex Assigned at Not on file Legal Sex Female 6:55 PM PRESS PIPE INSPECTOR Gender Identity Female 06/06/2022 7:40 AM PRESS PIPE INSPECTOR Sexual Orientation Not on file documented as of this encounter Miscellaneous Notes * Telephone Encounter - Lorie Vanessa NP - 07/13/2022 11:46 AM CST Called patient to check on status. She states she was seen by business support coordinator, Dr. Prasad, today, has been placed on a 7-day monitor. She states she is being worked up for POTS. She was also started on propranolol and Mg+. She will be getting a stress test and an echo in the near future. She was told to increase her sodium intake and wear compression socks/hose. She also saw the BARTENDERS at her associate merchant's office yesterday regarding her ovarian cyst, does not feel like much was accomplished, statesher associate merchant is out-of-town currently. She is feeling so-so. She is still having abdominal pain and dizziness. Offered meclizine for dizziness, however declined due to starting a new medication and Mg+. She was able to work last evening. Advised to send message with updates or if there is anything she needs. S PIPE INSPECTOR * Telephone Encounter - Lorie Vanessa NP - 07/13/2022 11:38 AM CST ----- Message from Shilo Michael MA sent at 07/12/2022 6:35 AM PRESS PIPE INSPECTOR ----- Regarding: FW: Follow up Contact: Please advise. ----- Message ----- From: Emily Guerrier Sent: 07/12/2022 2:13 AM PRESS PIPE INSPECTOR To: Surjit Pcp Cathy Metcalf [place] Subject: Follow up Hi, went to the [...] to seek help again with this treatment. S PIPE INSPECTOR * Telephone Encounter - Lorie Vanessa NP - 07/13/2022 11:32 AM CST Called patient to check on status. She states she saw her business support coordinator today, has been placed on a 7-day monitor. She states she is being worked up for POTS. S yes I hurts him many getting see he eye hurts yet have her S PIPE INSPECTOR * Telephone Encounter - Lorie Vanessa NP - 07/13/2022 11:32 AM CST ----- Message from Shilo Michael MA sent at 07/12/2022 6:35 AM PRESS PIPE INSPECTOR ----- Regarding: FW: Follow up Contact: Please advise. ----- Message ----- From: Emily Guerrier Sent: 07/12/2022 2:13 AM PRESS PIPE INSPECTOR To: Surjit Pcp Cathy Metcalf [place] Subject: Follow up Hi, went to the [...] to seek help again with this treatment. S PIPE INSPECTOR documented in this encounter Plan of Treatment Not on file documented as of this encounter Visit Diagnoses Not on filedocumented in this encounter Care Teams Director Process Engineering Relationship Specialty Start Date End Date Lorie Vanessa NP [address] [place] [id number] PCP - General Family Practice 05/29/22 No, Physician 06/08/21 documented as of this encounter
--- OUTSIDE RECORDS SUMMARY | 2024-06-06 05:27 | XMS_ITS | Encounter Summary ---
Author Organization [facility] Medical [facility] Address [address] [facility] [address] [place] [address] Care Team Providers Care Histotechnologist Supervisor Name Role Phone No, Physician Unavailable Lorie Vanessa NP Primary Care Provider [phone] Reason for Visit * Reason Comments Shortness of Breath Encounter Details Date Type Department Care Team (Late st Contact Info) Description 08/23/2022 9:30 AM CDT Office Visit [facility] Medical [facility] Cardiology [address] [facility] [address] [place] [address] Nile Prasad MD [address] [place] [address] [place] [address] GALEANO (dyspnea on exertion) (Primary Dx); [...] file Legal Sex Female 6:55 PM SOFT SUGAR CUTTER Gender Identity Female 06/06/2022 7:40 AM SOFT SUGAR CUTTER Sexual Orientation Not on file documented [...] awake/alert, no focal deficits. On behalf of [facility] Cardiology at [facility], we appreciate the opportunity to participate in the care of your patient. Please feel free to contact us if if we can provide any further assistance in this patient's care. Nile Prasad MD, FACC [facility] Cardiology, [facility] [place] Special Education Tutor completed by using M*Modal Fluency Direct speaking software, inadvertent fast food restaurant manager variances may occur. documented in this encounter Plan of Treatment Not on file documented as of this encounter Visit Diagnoses Diagnosis GALEANO (dyspnea on exertion)- Primary Other dyspnea and respiratory abnormality Orthostatic hypotension Preop cardiovascular exam Pre-operative cardiovascular examination documented in this encounter Care Teams Histotechnologist Supervisor Relationship Specialty Start Date End Date Lorie Vanessa NP [address] [place] [address] PCP - General Family Practice 05/29/22 No, Physician 06/08/21 documented as of this encounter
--- OUTSIDE RECORDS SUMMARY | 2024-06-06 05:27 | XMS_ITS | Encounter Summary ---
Author Organization [facility] Address [address] [place] [address] Care Team Providers Care Pool Hall Inspector Name Role Phone No, Physician Unavailable Sourav Jones NP Primary Care Provider [phone] Encounter Details Date Type Department Care Team (Late st Contact Info) Description 08/19/2021 1:40 PM CDT Lab [address] [address] Social History Tobacco Use Types Packs/Day Years Used Date Smoking Tobacco: Never Comments Unknown Sex and Gender Information Value Date Recorded Sex Assigned at Not on file Legal Sex Female 6:55 PM BUSINESS MACHINES TEACHER Gender Identity Female 06/06/2022 7:40 AM BUSINESS MACHINES TEACHER Sexual Orientation Not on file documented as of this encounter Plan of Treatment Not on file documented as of this encounter Visit Diagnoses Not on filedocumented in this encounter Additional Health Concerns Infection Onset Date Last Indicated Resolved Time COVID: Recovered Comment:Added based on recent COVID infection. 06/23/2021 08/17/2021 10/21/2021 3:06 AM C DT documented as of this encounter Care Teams Pool Hall Inspector Relationship Specialty Start Date End Date Sourav Jones NP PCP - General Family Medicine 08/19/21 08/20/21 No, Physician 06/08/21 documented as of this encounter
--- OUTSIDE RECORDS SUMMARY | 2024-06-06 05:27 | XMS_ITS | Encounter Summary ---
Author Organization [facility] Address [address] [facility] [address] [place] [address] Care Team Providers Care Plasma Processing Centrifuge Operator Name Role Phone No, Physician Unavailable Collin Valdez MD Primary Care Provider [phone] Encounter Details Date Type Department Care Team (Late st Contact Info) Description 04/18/2022 Telephone [facility] Primary Care at [address] [place] [address] Collin Valdez MD 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 Campbell at [facility] at [phone]. HIATRIC AIDE INSTRUCTOR documented in this encounter Plan of Treatment Not on file documented as of this encounter Visit Diagnoses Not on filedocumented in this encounter Care Teams Plasma Processing Centrifuge Operator Relationship Specialty Start Date End Date Collin Valdez MD PCP - General Family Medicine 04/12/22 05/28/22 No, Physician 06/08/21 documented as of this encounter
--- OUTSIDE RECORDS SUMMARY | 2024-06-06 05:27 | XMS_ITS | Encounter Summary ---
Author Organization [facility] Address [address] [place] [address] Phone Care Team Providers Care Parachute Manufacturing Supervisor Name Role Phone No, Physician Unavailable Lorie Vanessa NP Primary Care Provider Reason for Visit * Reason Comments New Patient * Consultation (Routine) - Closed Specialty Diagnoses / Procedures Referred By Cyn t Referred To Contact Immunology / Allergy and Immunology Diagnoses Frequent infections Lorie Vanessa BODY SPECIALIST [address] [address] Phone: tel: fax: [facility] Allergy and Immunology [address] [facility] [address] [place] [address] Phone: tel: fax: Referral ID Status Reason Start Date Expiration Date V isits Requested Visits Authorized [id number] Closed Specialty Services Required 07/04/2022 08/03/2023 12 12 Encounter Details Date Type Department Care Team (Late st Contact Info) Description 09/04/2022 9:00 AM CDT Office Visit [facility] Allergy and Immunology [address] [facility] [address] [place] [address] Jackson Dodd MD PhD [address] [facility] [address] [place] [address] Recurrent sinusitis (Primary Dx); Frequent infections; Allergic [...] on file Legal Sex Female 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 08/28/22 Allergen superintendent system operation Reese Method Epicutaneous Location Back Testing Nurse/RADHA Odom Reviewing Physician Dr Baker Panel 1: Trees Histamine (W/F millimeters) 9w/18x15f White Cole (W/F in millimeters) neg Birch Mix (W/F in millimeters) neg Athens Eastern (W/F in millimeters) 7w/9x9f Elm Mix (W/F in Millimeters) neg Abingdon (W/F in millimeters) neg Maple, Red ( W/F in millimeters) neg Lakeport (W/F in millimeters) neg Panel 2: Tree & Grass Saline (W/F millimeters) neg Vergas Mix (W/F in millimeters) 7w/10x10f Green Forest (W/F in millimeters) neg Stephensport (W/F in millimeters) neg Black [place] (W/F in millimeters) neg Bermuda (W/F in millimeters) 10w/25x25f Brome Grass (W/F in millimeters) 10w/25x25f Jorge L (W/F in millimeters) 9w/25x25f Panel 3: Grass & Weeds Histamine (W/F millimeters) 9w/25x25f Kentucky Ronks (W/F in millimeters) 13w/25x25f Timi (W/F in millimeters) 11w/25x25f Cockelbur (W/F in millimeters) 9w/25x25f Firebush/Kochia (W/F in millimeters) neg Isabel's Quarter (W/F in millimeters) neg Marshelder, True (W/F in millimeters) 7w/10x10f Nettle (W/F in millimeters) neg Panel 4: Weeds & Molds Saline (W/F millimeters) neg Pigweed Spiny (W/F in millimeters) neg Frisian Plantain (W/F in millimeters) neg Ragweed Mix (W/F in millimeters) neg Malagasy Thistle (W/F in millimeters) neg Sagebrush (W/F [...] the Division of Allergy and Immunology at [facility] in consultation for environmental [...] reflux disease. This is despite being on chcf therapy with a proton pump inhibitor. She has established recently with a youth associate and we'll begetting an EGD. --- Past [...] inhaler Discussion: Skin testing was positive to Athens, oak, Bermuda grass, brome grass, Jorge L grass, Kentucky bluegrass, Timi grass, cockleburr, lambs quarter, anderson aria, israeli plantain, alternaria, aspergillus, cladosporium, curvularia, epicoccum, fusarium, penicillium, might DP, might DF, cat, dog, mike kroach, mouse Skin testing was positive to Athens, oak, Bermuda grass, brome grass, Jorge L grass, [place] bluegrass, Timi grass, cockleburr, lambs quarter, anderson aria, israeli plantain, alternaria, aspergillus, cladosporium, curvularia, epicoccum, fusarium, [...] CDT) WBC 8.2 3.8 - 9.9 K/cumm [facility] Lymphocyte pct 30.8 20.0 - 54.3 % [facility] Lymphocyte abs 2,526 /cumm [facility] CD3 pct 70 60 - 88 % [facility] CD3 abs 1,768 661 - 1,963 /cumm [facility] CD4 pct 46 31 - 64 % [facility] CD4 abs 1,162 365 - 1,294 /cumm [facility] CD8 pct 22 12 - 40 % [facility] CD8 abs 556 187 - 781 /cumm [facility] CD19 pct 10 6 - 25 % [facility] CD19 abs 253 86 - 488 /cumm [facility] [id number] pct 15 5 - 25 % [facility] [id number] abs 379 76 - 467 /cumm [facility] CD2 pct 84 % [facility] CD2 abs 2,122 /cumm [facility] HLA-DR pct 16 % [facility] HLA-DR abs 404 /cumm [facility] CD3 HLA-DR pct 2 % [facility] CD3 HLA-DR abs 51 /cumm [facility] CD4/CD8 ratio 2.1 0.9 - 4.4 [facility] Blood 09/04/2022 11:3 0 AM CDT 09/04/2022 1:[address] [facility] - 09/04/2022 3:32 PM CDT This test was developed and its performance characteristics determined by the [facility] Flow Cytometry Laboratory. It has not been [...] PhD LAB BLOOD ORDERABLE S Final Result [facility] [place] [address] * Tetanus antibody, IgG (09/04/2022 11:30 AM CDT) [facility] Tetanus IgG Ab Positive [facility] Comment: REFERENCE VALUE Vaccinated: Positive (>= 0.01 IU/mL) Unvaccinated: Negative (< 0.01 IU/mL) Tetanus IgG Value >2.24 IUnits/mL [facility] Comment: ADDITIONAL INFORMATION This test was developed and its performance characteristics determined by [facility] in a manner consistent with CLIA requirements. This test has not been cleared or approved by the U.S. Food and Drug Administration. Test Performed by: [facility] [place] [address] Net Front End Developer: Lexx Pierre M.D. Ph.D.; CLIA# [id number] Blood 09/04/2022 11:3 0 AM CDT 09/04/2022 4:15 PM CDT Jackson Elliott MD PhD LAB BLOOD ORDERABLE S Final Result [facility] Department [place] [address] * Haemophilus influenzae B Ab IgG (09/04/2022 11:30 AM CDT) [facility] Haemophilus Influenza B, Leyla 0.24 >=0.15 mg/L [facility] Comment: ADDITIONAL INFORMATION The minimum level of protective antibody in the normal population is 0.15 mg/L. However, the optimum antibody level to confer chcf immunity is >= 1.0 mg/L post vaccination. Test Performed by: [facility] - [address] [address] Net Front End Developer: Lexx Pierre M.D. Ph.D.; CLIA# [id number] Blood 09/04/2022 11:3 0 AM CDT 09/04/2022 4:06 PM CDT us Jackson Elliott MD PhD LAB BLOOD ORDERABLE S Final Result [facility] [place] [address] * Strep pneumoniae antibody serotypes (09/04/2022 11:30 [...] Food and Drug Administration. Test Performed by: [place] [address] Net Front End Developer: Lexx Pierre M.D. Ph.D.; CLIA# [id number] Blood 09/04/2022 11:3 0 AM CDT 09/04/2022 4:08 PM CDT us Jackson Elliott MD PhD LAB BLOOD ORDERABLE S Final Result [facility] Department [place] [address] * Immunoglobulin IgG subclasses (09/04/2022 11:30 AM CDT) [facility] IgG 1033 767 - 1590 mg/dL [facility] IgG, fraction 1 597 341 - 894 mg/dL [facility] IgG, fraction 2 283 171 - 632 mg/dL [facility] IgG, fraction 3 43.9 18.4 - 106.0 mg/dL [facility] IgG, fraction 4 11.6 2.4 - 121.0 mg/dL [facility] Comment: Test Performed by: [place] [address] [address] Net Front End Developer: Lexx Pierre M.D. Ph.D.; [facility]# [id number] Blood 09/04/2022 11:3 0 AM CDT 09/04/2022 4:10 PM CDT Jackson Elliott MD PhD LAB BLOOD ORDERABLE S Final Result Performing Organization Address City/[facility]/ZIP Co de Phone Number [facility] Department [place] [address] * IgM (09/04/2022 11:30 AM CDT) Immunoglobulin M 85.0 40.0 - 230.0 mg/dL [facility] Blood 09/04/2022 11:3 0 AM CDT 09/04/2022 1:05 PM CDT Jackson Elliott MD PhD LAB BLOOD ORDERABLE S Final Result Performing Organization Address [facility] Co de Phone Number [facility] Department [place] [address] * IgA (09/04/2022 11:30 AM CDT) Pathologist [facility] Immunoglobulin A 229.0 70.0 - 400.0 mg/dL [facility] Blood 09/04/2022 11:3 0 AM CDT 09/04/2022 1:05 PM CDT Narrative [facility] - 09/04/2022 2:33 PM CDT Send to [facility] lab for more sensitive test (lower limit of detection) Jackson Elliott MD PhD LAB BLOOD ORDERABLE S Final Result Performing Organization Address City/[facility] Co de Phone Number [facility] [place] [address] * IgG (09/04/2022 11:30 AM CDT) Immunoglobulin G 1,066.0 700.0 - 1,600.0 mg/dL [facility] Blood 09/04/2022 11:3 0 AM CDT 09/04/2022 1:05 PM CDT us Jackson Elliott MD PhD LAB BLOOD ORDERABLE S Final Result [facility] [place] [address] * Comprehensive metabolic panel (09/04/2022 11:30 AM CDT) Sodium 142 135 - 145 mmol/L [facility] Potassium, pl 3.9 3.3 - 4.9 mmol/L [facility] Chloride 106 97 - 110 mmol/L [facility] CO2 28 22 - 32 mmol/L [facility] Anion gap 8 2 - 15 mmol/L [facility] BUN 9 8 - 25 mg/dL [facility] Creatinine 0.68 0.60 - 1.10 mg/dL [facility] Glucose 85 70 - 199 mg/dL [facility] Comment: Interpretive Data Fasting glucose >/= [...] 2022. Calcium 9.2 8.5 - 10.3 mg/dL [facility] Bilirubin, total 0.2 0.1 - 1.2 mg/dL [facility] Protein, pl 7.3 6.5 - 8.5 g/dL [facility] Albumin 4.2 3.5 - 5.0 g/dL [facility] Alk phos 93 40 - 130 Units/L [facility] ALT 16 7 - 45 Units/L [facility] AST 16 10 - 45 Units/L [facility] Blood 09/04/2022 11:3 0 AM CDT 09/04/2022 1:05 PM CDT us Jackson Elliott MD PhD LAB BLOOD ORDERABLE S Final Result Performing Organization Address City/[facility] Co de Phone Number [facility] Department [place] [employer] [place] [address] * (ABNORMAL) CBC with auto differential (09/04/2022 11:30 AM CDT) [facility] WBC 8.2 3.8 - 9.9 K/cumm [facility] Hgb 13.1 11.9 - 15.5 g/dL [facility] Hct 40.7 35.6 - 45.5 % [facility] Plt 400 150 - 400 K/cumm [facility] MPV 9.0(L) 9.1 - 12.3 fL [facility] RBC 4.75 3.90 - 5.20 M/cumm [facility] MCV 85.7 81.3 - 96.4 fL [facility] MCH 27.6 27.1 - 33.3 pg [facility] MCHC 32.2(L) 32.3 - 35.7 g/dL [facility] RDW CV 12.6 11.1 - 14.9 % [facility] RDW SD 39.2 35.7 - 48.1 fL [facility] NRBC abs 0.00 0.00 - 0.01 K/cumm [facility] Blood 09/04/2022 11:3 0 AM CDT 09/04/2022 1:05 PM CDT us Jackson Elliott MD PhD LAB BLOOD ORDERABLE S Final Result Performing Organization Address City/[facility]/ZIP Co de Phone Number [facility] Department [place] [address] * Tryptase (09/04/2022 11:30 AM CDT) [facility] Tryptase Level 2.7 <11.5 ng/mL [facility] Comment: Test Performed by: [place] [address] Net Front End Developer: Lexx Pierre M.D. Ph.D.; CLIA# [id number] Blood 09/04/2022 11:3 0 AM CDT 09/04/2022 4:15 PM CDT Jackson Elliott MD PhD LAB BLOOD ORDERABLE S Final Result Performing Organization Address City/[facility]/ZIP Co de Phone Number [facility] [place] [address] * Galactose alpha 1,3 galactose IgE (09/04/2022 11:30 AM CDT) [facility] RAST, [id number] ,3-galactose <0.10 <0.70 kUnits/L [facility] Comment: Class 0 (Negative <0.10) Test Performed by: [place] [address] Net Front End Developer: Lexx Pierre M.D. Ph.D.; CLIA# [id number] Blood 09/04/2022 11:3 0 AM CDT 09/04/2022 4:03 PM CDT us Jackson Elliott MD PhD LAB BLOOD ORDERABLE S Final Result [facility] [place] [address] * IgE (09/04/2022 11:30 AM CDT) Pathologist [facility] IgE 56.6 1.0 - 100.0 IUnits/mL [facility] Blood 09/04/2022 11:3 0 AM CDT 09/04/2022 1:05 PM CDT us Jackson Elliott MD PhD LAB BLOOD ORDERABLE S Final Result [facility] [place] [address] * SCAN - LABS (09/04/2022) us Provider [...] 09/04/2022 documented in this encounter Care Teams Parachute Manufacturing Supervisor Relationship Specialty Start Date End Date Lorie Vanessa NP [address] [place] [address] PCP - General Family Practice 05/29/22 No, Physician 06/08/21 documented as of this encounter
--- OUTSIDE RECORDS SUMMARY | 2024-06-06 05:27 | XMS_ITS | Encounter Summary ---
Author Organization [facility] Address [address] [place] [address] Care Team Providers Care Heel Blacker Name Role Phone Unknown, Notinfile Primary Care Provider Unavail able No, Physician Unavailable Encounter Details Date Type Department Care Team (Late st Contact Info) Description 06/15/2021 Orders Only [facility] Accountable Care Organization [address] [place] [address] [place], [address] [address] Social History Tobacco Use Types Packs/Day Years Used Date Smoking Tobacco: Never Comments Unknown Sex and Gender Information Value Date Recorded Sex Assigned at Not on file Legal Sex Female 6:55 PM 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 Gender Identity Female 06/06/2022 7:40 AM 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 Sexual Orientation Not on file documented as of this encounter Plan of Treatment Not on file documented as of this encounter Visit Diagnoses Not on filedocumented in this encounter Additional Health Concerns Infection Onset Date Last Indicated Resolved Time COVID19 06/13/2021 06/13/2021 06/23/2021 3:08 AM 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 documented as of this encounter Care Teams Heel Blacker Relationship Specialty Start Date End Date Unknown, Notinfile PCP - General 06/08/21 08/18/21 No, Physician 06/08/21 documented as of this encounter
--- OUTSIDE RECORDS SUMMARY | 2024-06-06 05:27 | XMS_ITS | Encounter Summary ---
Author Organization [facility] Healthcare Address [address] [place] [address] Care Team Providers Care Data Entry Associate Name Role Phone No, Physician Unavailable Sourav Jones NP Primary Care Provider Reason for Visit * Reason Comments Abdominal Pain Nausea Weakness - Generalized Back Pain Encounter Details Date Type Department Care Team (Late st Contact Info) Description 08/21/2021 12:21 PM CDT - 08/21/2021 3:03 PM CDT Emergency [facility] [address] [place] [address] Abdominal pain (Primary Dx); Leg weakness, bilateral; Urinary tract infection without hematuria, site unspecified; Nausea; Irritable bowel syndrome, unspecified type Discharge Disposition: Discharge to home or self care Social History Tobacco Use Types Packs/Day Years Used Date Smoking Tobacco: Never Comments No Sex and Gender Information Value Date Recorded Sex Assigned at Not on file Legal Sex Female 6:55 PM PRODUCE TEAM MEMBER Gender Identity Female 06/06/2022 7:40 AM PRODUCE TEAM MEMBER Sexual Orientation Not on file documented as [...] Everywhere. * Acute Abdominal Pain (AfterCare(R) Instructions(ER/ED)) (Nigerien) * Urinary Tract Infection in Women (AfterCare(R) Instructions(ER/ED)) (Nigerien) documented in this encounter Medications at Time [...] Thought content normal. Judgment: Judgment normal. Procedures [facility] Labs Reviewed URINALYSIS AND REFLEX TO [...] tendency for uric acid stone formation. Source: [facility] [employer].Last revised 06-06-2017 CBC WITH AUTO DIFFERENTIAL - [...] Detected N. gonorrhoeae Not Detected VAGINITIS PANEL Madison DNA probe Not Detected Gardnerella DNA probe [...] M.D. ?? RL: DAVID ?? Report ID: [id number] Reading Location: [id number] Urine culture Urine, clean voided Order: [id number] Collected 08/19/2021 09:21 ?? Status: Final result ?? Visible to patient: Yes (seen) ?? Dx: Urinary urgency ?? Specimen Information: Urine, clean voided ?? 1 Result Note Component Report Final Report: Less than 100,000 colonies/mL (clinically insignificant growth based on current clinical standards) Comment: Testing performed by: [facility], [address] [facility] [place]., [address] Organism (CLINICALLY INSIGNIFICANT GROWTH Resulting Agency Narrative Performed by: Testing performed by [facility] Microbiology Laboratory ([phone]) Specimen Collected: 08/19/21 09:21 Last Resulted: 08/21/21 07:05 Order Details ?? View Encounter ?? Lab and Collection Details ?? Routing ?? Result History ?? Result Care Coordination Result Notes Sonia Castro NP 08/21/2021 ??7:44 AM CDT Back to Top Please alert patient that urine culture was negative. ??She can stop taking antibiotics. If s/s persist, she should follow up with PCP. ED Course as of 08/21/21 5637 Time: 08/21 1210 Comment: Patient's urine culture [...] patient to follow-up with: Vinicius King MD [address] [place] [id number] Schedule an appointment as soon as possible for a visit Sourav Caldwell NP [address] [facility] [address] Schedule an appointment as soon as [...] was not asked to do so. * Saarh Romero RN - 08/21/2021 12:05 PM CDT [...] Detected FRAN HAYS Comment:Testing performed by : [facility], [address] [place] [address]., [address] Gardnerella DNA probe Not Detected Not Detected FRAN HAYS Comment:Testing performed by : [facility], [address] [place] [address]., [address] Trichomonas DNA probe Not Detected Not Detected FRAN Comment: Interpretive Data Testing performed by [facility] via [employer] VPIII Microbial Identification Test, a [...] last revised on 2020. Testing performed by: [facility], [address] [place] [address]., [address] Vaginal 08/21/2021 1:16 PM CDT 08/21/2021 1:21 PM CDT us Ann [facility] MICROBIOLOGY - GENERAL OR DERABLES Final Result FRAN [address] [facility] [place] [address] * N. gonorrhoeae/C. trachomatis Amplification Endocervical (08/21/2021 1:16 PM CDT) C. trachomatis Not Detected Not Detected FRAN HAYS Comment:Testing performed by : [facility], [address] [place] [address]., [address] N. gonorrhoeae Not Detected Not Detected FRAN HAYS Comment: Interpretive Data Testing performed by the [facility] Laboratory. This assay detects Chlamydia trachomatis and [...] last revised on 2019. Testing performed by: [facility], [address] [place] [address]., [address] Endocervical (None) 08/22/19 1:16 PM CDT 08/21/2021 1:21 PM CDT us Ann [facility] MICROBIOLOGY - GENERAL OR DERABLES Final Result Performing Organization Address City/State/[facility] Co de Phone Number [facility] [address] [facility] [place] [address] * eGFR (08/21/2021 12:33 PM CDT) eGFR [...] was last reviewed 2021. Testing performed by: [address] [address] Blood 08/21/2021 12:3 3 PM CDT 08/21/2021 12:47 PM CDT us Ann [facility] BLOOD ORDERABLES Final Re sult FRAN [address] [facility] [place] [address] * (ABNORMAL) Urinalysis, microscopic only (08/21/2021 12:33 PM CDT) WBC, ur 0-5 0 - 5 /HPF FRAN Comment:Testing performed by : [address] [address] RBC, ur 0-2 0 - 2 /HPF FRAN Comment:Testing performed by : [address] [address] Epithelial cells, squamous, ur >50(A) 0 - 5 /HPF FRAN Comment: Suggestive of contamination. Consider recollection by clean catch. Testing performed by: [address] [address] Mucous, ur Present(A) FRAN Comment:Testing performed by : [address] [address] Amorphous crystals, ur 1+(A) FRAN Comment:Testing performed by : [address] [address] Culture Reflex Comment Reflex conditions for urine culture (WBC >10) not met. FRAN Comment:Testing performed by : [address] [address] Urine 08/21/2021 12:3 3 PM CDT 08/21/2021 12:45 PM CDT us Ann [facility] URINE ORDERABLES Final Re sult FRAN [address] [facility] [place] [address] * (ABNORMAL) Differential, auto (08/21/2021 12:33 PM CDT) Neutrophil abs 5.5 1.7 - 6.5 K/cumm FRAN Comment:Testing performed by : [address] [address] Imm gran abs 0.0 0.0 - 0.1 K/cumm FRAN Comment:Testing performed by : [address] [address] Lymphocyte abs 3.5(H) 0.8 - 3.3 K/cumm FRAN Comment:Testing performed by : [address] [address] Monocyte abs 0.9(H) 0.2 - 0.8 K/cumm FRAN Comment:Testing performed by : [address] [address] Eosinophil abs 0.2 0.0 - 0.5 K/cumm FRAN Comment:Testing performed by : [address] [address] Basophil abs 0.1 0.0 - 0.1 K/cumm FRAN Comment:Testing performed by : [address] [address] Neutrophil pct 53.9 % FRAN Comment: Interpretive Data Percent cell count reference ranges are not reported, since discordance with absolute values may lead to misinterpretation of CBC data. Current Interpretive Data was last revised on 2017. Testing performed by: [address] [address] Imm gran pct 0.3 % [facility] Comment: Interpretive Data Percent cell count reference ranges are not reported, since discordance with absolute values may lead to misinterpretation of CBC data. Current Interpretive Data was last revised on 2017. Testing performed by: [address] [address] Lymphocyte pct 33.7 % [facility] Comment: Interpretive Data Percent cell count reference ranges are not reported, since discordance with absolute values may lead to misinterpretation of CBC data. Current Interpretive Data was last revised on 2017. Testing performed by: [address] [address] Monocyte pct 9.2 % [facility] Comment: Interpretive Data Percent cell count reference ranges are not reported, since discordance with absolute values may lead to misinterpretation of CBC data. Current Interpretive Data was last revised on 2017. Testing performed by: [address] [address] Eosinophil pct 2.1 % [facility] Comment: Interpretive Data Percent cell count reference ranges are not reported, since discordance with absolute values may lead to misinterpretation of CBC data. Current Interpretive Data was last revised on 2017. Testing performed by: [address] [address] Basophil pct 0.8 % [facility] Comment: Interpretive Data Percent cell count reference ranges are not reported, since discordance with absolute values may lead to misinterpretation of CBC data. Current Interpretive Data was last revised on 2017. Testing performed by: [address] [address] Blood 08/21/2021 12:3 3 PM CDT 08/21/2021 12:47 PM CDT us Ann [facility] BLOOD ORDERABLES Final Re sult FRAN [address] [facility] [place] [address] * (ABNORMAL) Urinalysis reflex to microscopic and culture Urine (08/21/2021 12:33 PM CDT) Color, ur Brissa Yellow FRAN Comment:Testing performed by : [address], [place]., [address] Clarity, ur Cloudy(A) Clear FRAN Comment:Testing performed by : [address], [place]., [address] Specific gravity, ur 1.023 1.003 - 1.030 FRAN Comment:Testing performed by : [address], [place]., [address] pH, urine 8.0 FRAN Comment:Testing performed by : [address], [place]., [address] Protein, ur ql Negative Negative FRAN Comment:Testing performed by : [address], [place]., [address] Glucose, ur ql Negative Negative FRAN Comment:Testing performed by : [address], [place]., [address] Ketones, ur Negative Negative FRAN Comment:Testing performed by : [address] [address] Bilirubin, ur Negative Negative FRAN Comment:Testing performed by : [address] [address] Blood, ur Negative Negative FRAN Comment:Testing performed by : [address] [address] Urobilinogen, ur <2.0 <2.0 mg/dL FRAN Comment:Testing performed by : [address] [address] Nitrite, ur Positive(A) Negative FRAN Comment:Testing performed by : [address] [address] Leukocyte esterase, ur Negative Negative FRAN Comment:Testing performed by : [address], [place]., [address] UA reflex comment Reflex to microscopic UA will be performed. FRAN Comment:Testing performed by : [address] [address] Urine 08/21/2021 12:3 3 PM CDT 08/21/2021 [...] tendency for uric acid stone formation. Source: [facility]. Last revised 06-06-2017 Ann [facility] MICROBIOLOGY - GENERAL OR DERABLES Final Result Performing Organization Address [facility] Co de Phone Number [address] [phone] * Sepsis Lactate w/ Reflex (08/21/2021 12:33 PM CDT) Sepsis Lactate 1.2 0.7 - 2.0 mmol/L FRAN Comment:Testing performed by : [address] [address] Blood 08/21/2021 12:3 3 PM CDT 08/21/2021 12:47 PM CDT Ann [facility] BLOOD ORDERABLES Final Re sult Performing Organization Address [facility] Co de Phone Number [facility] [address] [place] [address] * Comprehensive metabolic panel (08/21/2021 12:33 PM CDT) Sodium 140 135 - 145 mmol/L FRAN Comment:Testing performed by : [address] [address] Potassium, pl 3.9 3.3 - 4.9 mmol/L FRAN Comment:Testing performed by : [address] [address] Chloride 105 97 - 110 mmol/L FRAN Comment:Testing performed by : [address] [address] CO2 23 22 - 32 mmol/L FRAN Comment:Testing performed by : [address] [address] Anion gap 12 2 - 15 mmol/L FRAN Comment:Testing performed by : [address] [address] BUN 9 8 - 25 mg/dL FRAN Comment:Testing performed by : [address], [place]., [address] Creatinine 0.90 0.60 - 1.10 mg/dL [facility] Comment:Testing performed by : [address] [address] Glucose 80 70 - 199 mg/dL [facility] Comment: Interpretive Data Fasting glucose >/= [...] was last revised 2017. Testing performed by: [address] [address] Calcium 9.1 8.5 - 10.3 mg/dL FRAN Comment:Testing performed by : [address] [address] Bilirubin, total 0.2 0.1 - 1.2 mg/dL [facility] Comment:Testing performed by : [address] [address] Protein, pl 7.5 6.5 - 8.5 g/dL FRAN Comment:Testing performed by : [address] [address] Albumin 4.4 3.5 - 5.0 g/dL FRAN Comment:Testing performed by : [address] [address] Alk phos 94 40 - 130 Units/L FRAN HAYS Comment:Testing performed by : [address] [address] ALT 17 7 - 45 Units/L FRAN HAYS Comment:Testing performed by : [address] [address] AST 22 10 - 45 Units/L FRAN HAYS Comment:Testing performed by : [address] [address] Blood 08/21/2021 12:3 3 PM CDT 08/21/2021 12:47 PM CDT us Ann [facility] BLOOD ORDERABLES Final Re sult FRAN [facility] [place] [address] * (ABNORMAL) CBC with auto differential (08/21/2021 12:33 PM CDT) WBC 10.3(H) 3.8 - 9.9 K/cumm FRAN HAYS Comment:Testing performed by : [address] [address] Hgb 13.7 11.9 - 15.5 g/dL FRAN HAYS Comment:Testing performed by : [address] [address] Hct 42.2 35.6 - 45.5 % FRAN HAYS Comment:Testing performed by : [address] [address] Plt 418(H) 150 - 400 K/cumm FRAN HAYS Comment:Testing performed by : [address] [address] MPV 8.8(L) 9.1 - 12.3 fL FRAN HAYS Comment:Testing performed by : [address] [address] RBC 4.84 3.90 - 5.20 M/cumm FRAN HAYS Comment:Testing performed by : [address] [address] MCV 87.2 81.3 - 96.4 fL FRAN HAYS Comment:Testing performed by : [address] [address] MCH 28.3 27.1 - 33.3 pg FRAN HAYS Comment:Testing performed by : [address] [address] MCHC 32.5 32.3 - 35.7 g/dL FRAN HAYS Comment:Testing performed by : [address], [address] RDW CV 12.1 11.1 - 14.9 % FRAN HAYS Comment:Testing performed by : [address], [address] RDW SD 38.8 35.7 - 48.1 fL FRAN HAYS Comment:Testing performed by : [address], [address] NRBC abs 0.00 0.00 - 0.01 K/cumm FRAN HAYS Comment:Testing performed by : [address], [address] Blood 08/21/2021 12:3 3 PM CDT 08/21/2021 12:47 PM CDT Ann [facility] BLOOD ORDERABLES Final Re sult FRAN [address] [facility] [place] [address] documented in this encounter Visit [...] documented as of this encounter Care Teams Data Entry Associate Relationship Specialty Start Date End Date Sourav Jones NP PCP - General Family Medicine 08/21/21 08/21/21 No, Physician 06/08/21 documented as of this encounter
--- OUTSIDE RECORDS SUMMARY | 2024-06-06 05:27 | XMS_ITS | Encounter Summary ---
Author Organization [facility] Medical Group Address [address] [facility] [address] [place] [address] Care Team Providers Care Gambling Dealer Name Role Phone No, Physician Unavailable Sourav Jones NP Primary Care Provider [phone] Reason for Visit * Reason Comments Cough Sx have gotten worse over last 7 days Flank Pain Bilateral Chest Pain Sharp pain on right side when coughing UTI Constant urge to uri flavio; never gets other sx's w/ UTI's Encounter Details Date Type Department Care Team (Late st Contact Info) Description 08/19/2021 8:30 AM CDT Office Visit [facility] Out[facility] [address] [phone] Sourav Jones NP [address] [place] [address] [phone] Urinary urgency (Primary Dx); Flank pain; Viral upper respiratory tract infection Social History Tobacco Use Types Packs/Day Years Used Date Smoking Tobacco: Never Comments Unknown Sex and Gender Information Value Date Recorded Sex Assigned at Not on file Legal Sex Female 6:55 PM 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 Gender Identity Female 06/06/2022 7:40 AM 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 Sexual Orientation Not on file documented [...] Large Ketones, ur, POC Negative Negative Specific Victoria, POC 1.030 1.005 - 1.030 Blood, ur, [...] Encounter Lives with parents : (Added by [employer]) Currently in 11th grade : (Added by [employer]) Sibling : (Added by [employer]) Pets/Animals: Dog (Added by [employer]) Pets/Animals: Cat (Added by [employer]) Assessment/Plan Diagnoses and all orders for this [...] Large Ketones, ur, POC Negative Negative Specific Victoria, POC 1.030 1.005 - 1.030 Blood, ur, [...] FRAN CHIU Comment:Testing performed by : [facility], [address] [place]., [address] Organism (CLINICALLY INSIGNIFICANT GROWTH FRAN CHIU Urine, clean voided 08/19/2021 9:21 AM CDT 08/19/2021 4:44 PM CDT Narrative FRAN CHIU - 08/21/2021 7:05 AM CDT Testing performed by [facility] Microbiology Laboratory ([phone]) Sourav Jones NP LAB MICROBIOLOGY - GENERAL ORDERABLES Final Result FRAN CHIU [address] [place] [address] * (ABNORMAL) POCT urinalysis dipstick (08/19/2021 9:08 AM CDT) Color, Urine, POC Dark Brissa Clarity, ur, POC Cloudy(A) Clear Glucose, ur, POC Negative Negative mg/dL Bilirubin, ur, POC Negative Negative, Small, Moderate, Large Ketones, ur, POC Negative Negative Specific Victoria, POC 1.030 1.005 - 1.030 Blood, ur, POC Negative Negative pH, ur, POC 5.5 5.0 - 8.0 Protein, ur, POC Negative Negative Urobilinogen, urine, POC 0.2 0.2 - 1.0 mg/dL Nitrite, ur, POC Negative Negative Leukocytes, ur, POC Negative Negative Lot Number [id number] Urine 08/19/2021 9:08 AM CDT Sourav Jones [...] documented as of this encounter Care Teams Gambling Dealer Relationship Specialty Start Date End Date Sourav Jones NP PCP - General Family Medicine 08/19/21 08/20/21 No, Physician 06/08/21 documented as of this encounter
--- OUTSIDE RECORDS SUMMARY | 2024-06-06 05:27 | XMS_ITS | Encounter Summary ---
Author Organization [facility] Healthcare Address [address] [place] [address] Care Team Providers Care Senior Payroll Specialist Name Role Phone No, Physician Unavailable Lorie Vanessa NP Primary Care Provider [phone] Encounter Details Date Type Department Care Team (Late st Contact Info) Description 08/23/2022 10:20 AM CDT Lab [facility] [address] [place] [address] Orthostatic hypotension; Dizziness; Tachycardia, unspecified; GALEANO (dyspnea [...] on file Legal Sex Female 6:55 PM THUMB SEWER Gender Identity Female 06/06/2022 7:40 AM THUMB SEWER Sexual Orientation Not on file documented [...] BLOOD ORDERABLES Final Resul t FRAN [address] [facility] Department [place] [address] documented in this encounter Visit Diagnoses Diagnosis Orthostatic hypotension Dizziness Dizziness and giddiness Tachycardia, unspecified GALEANO (dyspnea on exertion) Other dyspnea and respiratory abnormality Family history of CHF (congestive heart failure) Family history of other cardiovascular diseases documented in this encounter Care Teams Senior Payroll Specialist Relationship Specialty Start Date End Date Lorie Vanessa NP [address] [place] [id number] PCP - General Family Practice 05/29/22 No, Physician 06/08/21 documented as of this encounter
--- OUTSIDE RECORDS SUMMARY | 2024-06-06 05:27 | XMS_ITS | Encounter Summary ---
Author Organization [facility] Healthcare Address [address] [place] [address] Care Team Providers Care Store Clerk Checker Name Role Phone No, Physician Unavailable Lorie Vanessa NP Primary Care Provider [phone] Reason for Referral * Cardiology (Routine) - Closed Specialty Diagnoses / Procedures Referred By Cyn burnett Referred To Contact Diagnoses Orthostatic hypotension Dizziness Tachycardia, unspecified GALEANO (dyspnea on exertion) Family history of CHF (congestive heart failure) Procedures Transthoracic Echo (TTE) Complete W Doppler/CF Laurent Bueno MD Phone: tel: fax: [address] [phone] Referral ID Status Reason Start Date Expiration Date Visits Re quested Visits Authorized [id number] Closed 07/13/2022 08/12/2023 1 1 Reason for Visit * Cardiology (Routine) - Closed Specialty Diagnoses / Procedures Referred By Cyn burnett Referred To Contact Diagnoses Orthostatic hypotension Dizziness Tachycardia, unspecified GALEANO (dyspnea on exertion) Family history of CHF (congestive heart failure) Procedures Transthoracic Echo (TTE) Complete W Doppler/CF Laurent Bueno MD Phone: tel: fax: [facility] [address] [place] [address] Referral ID Status Reason Start Date Expiration Date Visits Re quested Visits Authorized [id number] Closed 07/13/2022 08/12/2023 1 1 Encounter Details Date Type Department Care Team (Latest Contact Info) Description 08/06/2022 1:04 PM CDT - 08/06/2022 11:59 PM CDT Hospital Encounter [facility] OP Cardiac Testing [address] [place] [address] Orthostatic hypotension; Dizziness; Tachycardia, unspecified; [...] on file Legal Sex Female 6:55 PM SOLAR PV INSTALLER Gender Identity Female 06/06/2022 7:40 AM SOLAR PV INSTALLER Sexual Orientation Not on file documented as [...] Date: 08/06/2022 Status: MHB: : Patient Location: [address]^MHBHeight: 64in : : Weight: 272lbBP: 120/82 [...] diseases documented in this encounter Care Teams Store Clerk Checker Relationship Specialty Start Date End Date Lorie Vanessa NP [address] [place] [id number] PCP - General Family Practice 05/29/22 No, Physician 06/08/21 documented as of this encounter
--- OUTSIDE RECORDS SUMMARY | 2024-06-06 05:27 | XMS_ITS | Encounter Summary ---
Author Organization [facility] Healthcare Address [address] [place] [address] Care Team Providers Care Dietary Internship Name Role Phone Unknown, Notinfile Primary Care Provider Unavail able No, Physician Unavailable Encounter Details Date Type Department Care Team (Late st Contact Info) Description 06/13/2021 1:15 PM APPLICATION DEVELOPMENT TEAM LEAD Lab [address] [address] Cough Social History Tobacco Use Types Packs/Day Years Used Date Smoking Tobacco: Never Comments Unknown Sex and Gender Information Value Date Recorded Sex Assigned at Not on file Legal Sex Female 6:55 PM APPLICATION DEVELOPMENT TEAM LEAD Gender Identity Female 06/06/2022 7:40 AM APPLICATION DEVELOPMENT TEAM LEAD Sexual Orientation Not on file documented as of this encounter Plan of Treatment Not on file documented as of this encounter Procedures Procedure Name Priority Date/Time Associated Diagnosis Comments INFLUENZA A/B AND COVID-19 PCR Routine 06/13/2021 9:51 AM APPLICATION DEVELOPMENT TEAM LEAD Cough documented in this encounter Results * (ABNORMAL) Influenza A/B and COVID-19 PCR Nasopharyngeal (06/13/2021 9:51 AM APPLICATION DEVELOPMENT TEAM LEAD) COVID-19 RNA Detected(A) [facility] Comment: Interpretive Data Synonyms for this test include: PCR and NAAT . ??Testing performed by the [facility] Molecular Infectious Disease Laboratory. The 2019-Novel [...] 2020. Influenza A RNA Not Detected [facility] Influenza B RNA Not Detected [facility] Comment: Interpretive Data Testing performed by the [facility] Molecular Infectious Disease Laboratory. This test is performed using the pieter Influenza A/B Assay. This is a real-time RT-PCR test for the qualitative detection of nucleic acid from Influenza A and Influenza B. This assay has been reviewed by the FDA for Emergency Use Authorization (EUA). The performance characteristics have been verified by the [facility]. Results should be interpreted in combination with clinical context and a negative result does not rule out infection. ?? Interpretive data last revised 2020. First COVID-19 test? No [facility] Employeed in healthcare? Yes [facility] status? Unknown [facility] Group care resident? No [facility] Hospitalized? No [facility] Is patient in ICU? No [facility] Symptomatic as defined by CDC? Yes [facility] Nasopharyngeal 06/13/2021 9: 51 AM APPLICATION DEVELOPMENT TEAM LEAD 06/13/2021 1:33 PM APPLICATION DEVELOPMENT TEAM LEAD N[facility]ative [facility] - 06/13/2021 8:28 PM APPLICATION DEVELOPMENT TEAM LEAD Patient is employed by/enrolled at:->[employer] Date of Symptom Onset->06/07/21 Reason for testing?->Symptomatic Tanya Montaño MD LAB MICROBIOLOGY - GENERAL ORDERABLES Final Result [facility] Department [place] [address] documented in this encounter Visit Diagnoses Diagnosis Cough documented in this encounter Additional Health Concerns Infection Onset Date Last Indicated Resolved Time COVID: Suspected 06/12/2021 06/13/2021 06/13/2021 8:28 PM APPLICATION DEVELOPMENT TEAM LEAD documented as of this encounter Care Teams Dietary Internship Relationship Specialty Start Date End Date Unknown, Notinfile PCP - General 06/08/21 08/18/21 No, Physician 06/08/21 documented as of this encounter
--- OUTSIDE RECORDS SUMMARY | 2024-06-06 05:27 | XMS_ITS | Encounter Summary ---
Author Organization [facility] Healthcare Address [address] [place] [address] Care Team Providers Care Charter Representative Name Role Phone Unknown, Notinfile Primary Care Provider Unavail able No, Physician Unavailable Reason for Visit * Reason Onset Date Comments COVID-19 EVALUATION 06/08/2021 Encounter Details Date Type Department Care Team (Late st Contact Info) Description 06/08/2021 Telephone [facility] [address] (Third Floor) [place] [address] Jerilyn Hood, RN COVID-19 EVALUATION Social History Tobacco Use Types Packs/Day Years Used Date Smoking Tobacco: Never Comments Unknown Sex and Gender Information Value Date Recorded Sex Assigned at Not on file Legal Sex Female 6:55 PM SEAM HAMMERER Gender Identity Female 06/06/2022 7:40 AM SEAM HAMMERER Sexual Orientation Not on file documented as of this encounter Miscellaneous Notes * Telephone Encounter - Jerilyn Hood, RN - 06/08/2021 2:06 PM CST Emily [email or web address] Does not have [facility] Medical Oncology floor- no BMT patients RN [facility] employee [employer] Melter Helper: [email or web address] Last day worked: 06/06/21 Boyfriend is COVID [...] should also 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 Given your symptoms, you should not come to work and will be referred for combined COVID/Influenza testing. Or, if you have had a COVID infection in the past 3 months, you will be tested for influenza only. ??? If you are at work on site, you must leave work now. 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 ??? Please go to the employee testing site as directed for your test. They should be expecting you;if there is any confusion, please call us at [phone]. ??? While you are awaiting testing and results, you must remain off work. You should isolate yourself at home, avoid contact with any household members as much as possible, and stay in your home without leaving except for medical care. ??? 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 Although we will emailyour cold mill supervisor to confirm this, it is still your responsibility to notify your cold mill supervisor as you would for any other work absence. We will notify you of your test results, which are usually available within 24- 48 hours. Your results will also post to your [facility] My Chart account ([email or web address]). Once yourresults are back, you will receive further instruction from Occupational Health. If you test positive for COVID-19, you must be cleared by Occupational Health ([place]) before you can return to work. [place] will notify you and your compensation manager when you can return to work. Should your test result positive, [place] will work with you to identify any close contacts you may have had at work. [place] willthen alert your work contacts directly; you do not have to. Your cold mill supervisor should consult with [place] if they [...] a negative test result, you and your cold mill supervisor must decide when it is appropriate for you to return to work, using the guidance that will be send with your negative test notification. HAMMERER HAMMERER documented in this encounter Plan of Treatment Not on file documented as of this encounter Results * Influenza A/B and COVID-19 PCR Nasopharyngeal (06/08/2021 3:02 PM SEAM HAMMERER) Pathologist [facility] COVID-19 RNA Not Detected [facility] Comment: Interpretive Data Synonyms for this test include: PCR and NAAT . ??Testing performed by the [facility] Molecular Infectious Disease Laboratory. The 2019-Novel Coronavirus [...] Comment: Interpretive Data Testing performed by the [facility] Molecular Infectious Disease Laboratory. This test is performed using the pieter Influenza A/B Assay. This is a real-time RT-PCR test for the qualitative detection of nucleic acid from Influenza A and Influenza B. This assay has been reviewed by the FDA for Emergency Use Authorization (EUA). The performance characteristics have been verified by the [facility] Laboratory. Results should be interpreted in combination with clinical context and a negative result does not rule out infection. ?? Interpretive data last revised 2020. First COVID-19 test? Unknown [facility] Employeed in healthcare? Yes [facility] status? Unknown [facility] Group care resident? No [facility] Hospitalized? No [facility] Is patient in ICU? No [facility] Symptomatic as defined by CDC? Yes [facility] Nasopharyngeal 06/08/2021 3: 02 PM SEAM HAMMERER 06/08/2021 11:07 PM SEAM HAMMERER Narrative [facility] - 06/09/2021 5:36 AM SEAM HAMMERER Patient is employed by/enrolled at:->[employer] Date of Symptom Onset->06/07/21 Reason for testing?->Symptomatic Tanya Montaño MD LAB MICROBIOLOGY - GENERAL ORDERABLES Final Result [facility] Department [place] [address] documented in this encounter Visit Diagnoses Diagnosis Cough- Primary Myalgia Unspecified myalgia and myositis Cough Myalgia Unspecified myalgia and myositis documented in this encounter Additional Health Concerns Infection Onset Date Last Indicated Resolved Time COVID: Suspected 06/08/2021 06/08/2021 06/09/2021 5:38 AM SEAM HAMMERER documented as of this encounter Care Teams Charter Representative Relationship Specialty Start Date End Date Unknown, Notinfile PCP - General 06/08/21 08/18/21 No, Physician 06/08/21 documented as of this encounter
--- OUTSIDE RECORDS SUMMARY | 2024-06-06 05:27 | XMS_ITS | Encounter Summary ---
Author Organization [facility] Address [address] [place] [address] Care Team Providers Care Scheduling Analyst Name Role Phone No, Physician Unavailable Lorie Vanessa NP Primary Care Provider [phone] Reason for Referral * Consultation (Routine) - Closed Specialty Diagnoses / Procedures Referred By Cyn burnett Referred To Contact Immunology / Allergy and Immunology Diagnoses Frequent infections Lorie Vanessa NP [address] [address] Phone: tel: fax: [facility] Allergy and Immunology [facility] [place] [address] Phone: tel: fax: Referral ID Status Reason Start Date Expiration Date V isits Requested Visits Authorized [id number] Closed Specialty Services Required 07/04/2022 08/03/2023 12 12 Question Answer Please select the performing region: [facility] (All Locations) [167] # of visits: 1 [employer]Y EQUIPMENT HAY SORTER Encounter Details Date Type Department Care Team (Late st Contact Info) Description 07/04/2022 Telephone [facility] [place] [address] [facility] [facility] [address] [place] [address] Lorie Vanessa NP [address] [id number] Social History Tobacco Use Types Packs/Day Years Used Date Smoking Tobacco: Never PHQ-2 Answer Date Recorded PHQ-2 Total Score (If total score is 3 or more points, staff should administer the PHQ-9) 0 04/12/2022 Comments No Sex and Gender Information Value Date Recorded Sex Assigned at Not on file Legal Sex Female 6:55 PM ARCHERY EQUIPMENT HAY SORTER Gender Identity Female 06/06/2022 7:40 AM ARCHERY EQUIPMENT HAY SORTER Sexual Orientation Not on file documented as of this encounter Miscellaneous Notes * Telephone Encounter - Shilo Michael MA - 07/05/2022 8:23 AM CST [employer] message sent to pt. [employer] E[employer]MENT [employer]AY SORTER * Telephone Encounter - Lorie Vanessa NP - 07/04/2022 5:41 PM CST Referral made to immunology. [employer]MENT [employer]AY SORTER * Telephone Encounter - Lorie Vanessa NP - 07/04/2022 5:39 PM CST ----- Message from Shilo Michael MA sent at 07/04/2022 10:50 AM ARCHERY EQUIPMENT HAY SORTER ----- Regarding: FW: Work question Contact: Referral request. ----- Message ----- From: Emily Guerrier Sent: 07/04/2022 10:30 AM ARCHERY EQUIPMENT HAY SORTER To: [facility] P[facility] [place] [phone] [facility] Subject: Work question Alright. Can I get the referral to infectious disease then? [employer]IPMENT HAY SORTER documented in this encounter Plan of Treatment Scheduled Referrals Name Type Priority Associated Diagnoses Order Schedule Ambulatory referral to Immunology Outpatient Referral Routine Frequent infections Expected: 07/18/2022 (Approximate), Expires: 07/04/2023 documented as of this encounter Visit Diagnoses Diagnosis Frequent infections- Primary documented in this encounter Care Teams Scheduling Analyst Relationship Specialty Start Date End Date Lorie Vanessa NP [address] [place] [id number] PCP - General Family Practice 05/29/22 No, Physician 06/08/21 documented as of this encounter
--- OUTSIDE RECORDS SUMMARY | 2024-06-06 05:27 | XMS_ITS | Encounter Summary ---
Author Organization [facility] Healthcare Address [address] [place] [address] Care Team Providers Care Tester Compressed Gases Name Role Phone No, Physician Unavailable Sourav Jones NP Primary Care Provider Reason for Visit * Reason Comments Flank Pain Right sided flank pa in started last night + urinary ugency. Went to [facility] urgent care, checked urine but did not did do bloodwork. Wanted pt to go to ED to further evaluation. Encounter Details Date Type Department Care Team (Late st Contact Info) Description 08/19/2021 11:33 AM CDT - 08/19/2021 3:29 PM T Emergency [facility] Emergency Department [facility] [place] [address] Right flank pain (Primary Dx); RLQ abdominal pain; Nausea; Acute cystitis without hematuria; Leukocytosis, unspecified type Discharge Disposition: Discharge to home or self care Social History Tobacco Use Types Packs/Day Years Used Date Smoking Tobacco: Never Comments Unknown Sex and Gender Information Value Date Recorded Sex Assigned at Not on file Legal Sex Female 6:55 PM BIOMEDICAL REPAIR TECHNICIAN Gender Identity Female 06/06/2022 7:40 AM BIOMEDICAL REPAIR TECHNICIAN Sexual Orientation Not on file documented [...] * Discharge Instructions* Ann Roberson PA - 08/19/2021 2:58 PM CDT Follow-up [...] Everywhere. * Acute Abdominal Pain (AfterCare(R) Instructions(ER/ED)) ([place]) * Urinary Tract Infection in Women (Architect Manager) ([place]) * Leukocytosis (AfterCare(R) Instructions(ER/ED)) ([place]) * Acute Nausea and Vomiting (AfterCare(R) Instructions(ER/ED)) ([place]) documented in this encounter Medications at Time [...] last night + urinary ugency. Went to [facility] urgent care, checked urine but did [...] tendency for uric acid stone formation. Source: [facility] [employer].Last revised 06-06-2017 CBC WITH AUTO DIFFERENTIAL - [...] torsion. By: Ann Roberson PA Time: 08/19 6534 Comment: The patient explicitly denies concern for STDs. No vaginal irritation or discharge. By: Ann Roberson PA Time: 08/19 3989 Comment: I spoke with the patient about [...] important. By: Ann Roberson PA Time: 08/19 8235 Comment: Patient told she can take ibuprofen and Tylenol for pain. I do not want to give her anything stronger because I want her to realize if her pain worsen she needs to return. She agrees. By: Ann Roberson PA Time: 08/19 5433 Comment: Patient's family member in the room and he heard the conversation of us discussing admission and the patient wanting to go home as she is feeling better. Again return if problems By: Ann Roberson PA Time: 08/19 1637 Comment: Spoke with my nurse about the [...] the patient to follow-up with: Sourav Jones, STOREROOM ATTENDANT [address] [facility] [address] DIAGNOSIS: 1. Right flank pain 2. RLQ [...] PM T: ??08/19/2021 2:34 PM Report ID: [id number] Reading Location: ??[id number] Procedure Note Aamir Reyes MD - 08/19/2021 [...] Aamir Reyes M.D. LB: LB Report ID: [id number] Reading Location: [id number] us Ann LEYVA IMFortion US PROCEDURES Final Resul t * CT [...] PM T: ??08/19/2021 12:25 PM Report ID: [id number] Reading Location: ??[id number] Procedure Note Jone García MD - 08/19/2021 [...] Jone Mercado M.D. RL: DAVID Report ID: [id number] Reading Location: [place] [address] PROCEDURES Final Resul [...] 5 /HPF [facility] Comment:Testing performed by : [address] [address] RBC, ur 11-20(A) 0 - 2 /HPF [facility]AN Comment:Testing performed by : [address] [address] Epithelial cells, squamous, ur >50(A) 0 - 5 /HPF [facility]AN Comment: Suggestive of contamination. Consider recollection by clean catch. Testing performed by: [address] [address] Bacteria, ur 3+(A) [facility]AN Comment:Testing performed by : [address] [address] Mucous, ur Present(A) [facility] Comment:Testing performed by : [address] [address] Culture Reflex Comment Reflex conditions for urine culture (WBC >10) not met. FRAN Comment:Testing performed by : [address] [address] Urine 08/19/2021 11:2 5 AM CDT 08/19/2021 11:27 AM CDT us Kev Mora II, MD LAB URINE ORDERABLES Magda moreau Result [facility] [address] [facility] Department [place] [address] * (ABNORMAL) Urinalysis reflex to microscopic and culture Urine (08/19/2021 11:25 AM CDT) Color, ur Brissa Yellow [facility]AN Comment:Testing performed by : [address] [address] Clarity, ur Cloudy(A) Clear FRAN Comment:Testing performed by : [address] [address] Specific gravity, ur 1.036(H) 1.003 - 1.030 FRAN Comment:Testing performed by : [address] [address] pH, urine 5.0 FRAN Comment:Testing performed by : [address] [address] Protein, ur ql 1+(A) Negative FRAN Comment:Testing performed by : [address] [address] Glucose, ur ql Negative Negative FRAN Comment:Testing performed by : [address] [address] Ketones, ur Trace Negative FRAN Comment:Testing performed by : [facility], [address] [place] [address]., [address] Bilirubin, ur Negative Negative FRAN Comment:Testing performed by : [facility], [address] [place] [address], [place]., [address] Blood, ur Negative Negative FRAN Comment:Testing performed by : [address], [place]., [address] Urobilinogen, ur <2.0 <2.0 mg/dL FRAN Comment:Testing performed by : [address], [place]., [address] Nitrite, ur Negative Negative FRAN Comment:Testing performed by : [address] [address] Leukocyte esterase, ur 1+(A) Negative [facility] Comment:Testing performed by : [address] [address] UA reflex comment Reflex to microscopic UA will be performed. FRAN Comment:Testing performed by : [facility], [address] [place] [address], [place]., [address] Urine 08/19/2021 11:2 5 AM CDT 08/19/2021 [...] tendency for uric acid stone formation. Source: [employer]. Last revised 06-06-2017 us Kev Mora II, MD LAB MICROBIOLOGY - GENERA L ORDERABLES Final Result [facility] [address] [facility] Department [place] [address] * eGFR (08/19/2021 11:09 AM [...] was last reviewed 2021. Testing performed by: [address] [address] Blood 08/19/2021 11:0 9 AM CDT 08/19/2021 11:12 AM CDT us Kev Mora II, MD LAB BLOOD ORDERABLES Magda l Result [facility] [address] [facility] Department [place] [address] * (ABNORMAL) Differential, auto (08/19/2021 11:09 AM CDT) Neutrophil abs 8.4(H) 1.7 - 6.5 K/cumm [facility] Comment:Testing performed by : [address] [address] Imm gran abs 0.1 0.0 - 0.1 K/cumm [facility] Comment:Testing performed by : [address] [address] Lymphocyte abs 3.5(H) 0.8 - 3.3 K/cumm [facility] Comment:Testing performed by : [address] [address] Monocyte abs 1.1(H) 0.2 - 0.8 K/cumm [facility] Comment:Testing performed by : [address] [address] Eosinophil abs 0.1 0.0 - 0.5 K/cumm [facility] Comment:Testing performed by : [address] [address] Basophil abs 0.1 0.0 - 0.1 K/cumm [facility] Comment:Testing performed by : [address] [address] Neutrophil pct 63.2 % [facility] Comment: Interpretive Data Percent cell count reference ranges are not reported, since discordance with absolute values may lead to misinterpretation of CBC data. Current Interpretive Data was last revised on 2017. Testing performed by: [address] [address] Imm gran pct 0.4 % [facility] Comment: Interpretive Data Percent cell count reference ranges are not reported, since discordance with absolute values may lead to misinterpretation of CBC data. Current Interpretive Data was last revised on 2017. Testing performed by: [address] [address] Lymphocyte pct 26.6 % [facility] Comment: Interpretive Data Percent cell count reference ranges are not reported, since discordance with absolute values may lead to misinterpretation of CBC data. Current Interpretive Data was last revised on 2017. Testing performed by: [address] [address] Monocyte pct 8.1 % [facility] Comment: Interpretive Data Percent cell count reference ranges are not reported, since discordance with absolute values may lead to misinterpretation of CBC data. Current Interpretive Data was last revised on 2017. Testing performed by: [address] [address] Eosinophil pct 1.1 % FRAN Comment: Interpretive Data Percent cell count reference ranges are not reported, since discordance with absolute values may lead to misinterpretation of CBC data. Current Interpretive Data was last revised on 2017. Testing performed by: [address] [address] Basophil pct 0.6 % [facility]AN Comment: Interpretive Data Percent cell count reference ranges are not reported, since discordance with absolute values may lead to misinterpretation of CBC data. Current Interpretive Data was last revised on 2017. Testing performed by: [address] [address] Blood 08/19/2021 11:0 9 AM CDT 08/19/2021 11:12 AM CDT Kev Mora II, MD LAB BLOOD ORDERABLES Magda l Result Performing Organization Address City/[facility] Co de Phone Number [address] [place] [address] * Lipase (08/19/2021 11:09 AM CDT) Pathologist [facility] Lipase 21 10 - 99 Units/L [facility]AN Comment:Testing performed by : [address] [address] Blood (Blood, Venous) 08/19/2021 11:09 AM CDT 08/19/2021 11:12 AM CDT Kev Mora II, MD LAB BLOOD ORDERABLES Magda l Result [address] [address] * Comprehensive metabolic panel (08/19/2021 11:09 AM CDT) Sodium 140 135 - 145 mmol/L FRAN Comment:Testing performed by : [address] [address] Potassium, pl 3.8 3.3 - 4.9 mmol/L [facility] Comment:Testing performed by : [address] [address] Chloride 104 97 - 110 mmol/L [facility] Comment:Testing performed by : [address], [place]., [address] CO2 23 22 - 32 mmol/L [facility] Comment:Testing performed by : [address], [place]., [address] Anion gap 13 2 - 15 mmol/L [facility] Comment:Testing performed by : [address], [place]., [address] BUN 10 8 - 25 mg/dL [facility] Comment:Testing performed by : [address], [place]., [address] Creatinine 0.60 0.60 - 1.10 mg/dL [facility] Comment:Testing performed by : [address] [address] Glucose 101 70 - 199 mg/dL [facility] Comment: Interpretive Data Fasting glucose >/= [...] was last revised 2017. Testing performed by: [address] [address] Calcium 9.4 8.5 - 10.3 mg/dL [facility] Comment:Testing performed by : [address] [address] Bilirubin, total 0.5 0.1 - 1.2 mg/dL [facility] Comment:Testing performed by : [address] [address] Protein, pl 7.7 6.5 - 8.5 g/dL [facility] Comment:Testing performed by : [address] [address] Albumin 4.5 3.5 - 5.0 g/dL [facility] Comment:Testing performed by : [address] [address] Alk phos 91 40 - 130 Units/L [facility] Comment:Testing performed by : [address] [address] ALT 15 7 - 45 Units/L [facility] Comment:Testing performed by : [address] [address] AST 19 10 - 45 Units/L [facility] Comment:Testing performed by : [address] [address] Blood 08/19/2021 11:0 9 AM CDT 08/19/2021 11:12 AM CDT us Kev Mora II, MD LAB BLOOD ORDERABLES Magda l Result [place] [id number] [facility] Department [place] [address] * (ABNORMAL) CBC with auto differential (08/19/2021 11:09 AM CDT) [facility] WBC 13.2(H) 3.8 - 9.9 K/cumm [facility] Comment:Testing performed by : [address] [address] Hgb 13.2 11.9 - 15.5 g/dL [facility] Comment:Testing performed by : [address] [address] Hct 40.3 35.6 - 45.5 % [facility] Comment:Testing performed by : [address] [address] Plt 384 150 - 400 K/cumm [facility] Comment:Testing performed by : [address] [address] MPV 8.6(L) 9.1 - 12.3 fL [facility] Comment:Testing performed by : [address] [address] RBC 4.68 3.90 - 5.20 M/cumm [facility] Comment:Testing performed by : [address] [address] MCV 86.1 81.3 - 96.4 fL [facility] Comment:Testing performed by : [address] [address] MCH 28.2 27.1 - 33.3 pg [facility] Comment:Testing performed by : [address], [address] MCHC 32.8 32.3 - 35.7 g/dL [facility] Comment:Testing performed by : [address], [address] RDW CV 12.5 11.1 - 14.9 % [facility] Comment:Testing performed by : [address], [address] RDW SD 38.9 35.7 - 48.1 fL [facility] Comment:Testing performed by : [address], [address] NRBC abs 0.00 0.00 - 0.01 K/cumm [facility] Comment:Testing performed by : [address], [address] Blood (Blood, Venous) 08/19/2021 11:09 AM CDT 08/19/2021 11:12 AM CDT us Kev Mora II, MD LAB BLOOD ORDERABLES Magda moreau Result [place] [address] [facility] Department [place] [address] documented in this encounter Visit [...] documented as of this encounter Care Teams Tester Compressed Gases Relationship Specialty Start Date End Date Sourav Jones NP PCP - General Family Medicine 08/19/21 08/20/21 No, Physician 06/08/21 documented as of this encounter
--- OUTSIDE RECORDS SUMMARY | 2024-06-06 05:27 | XMS_ITS | Encounter Summary ---
Author Organization [facility] Healthcare Address [address] [place] [address] Care Team Providers Care Home Visit Field Care Manager Name Role Phone No, Physician Unavailable Lorie Vanessa NP Primary Care Provider [phone] Encounter Details Date Type Department Care Team (Late st Contact Info) Description 06/06/2022 9:50 AM DISTANCE LEARNING UNIT LEADER Lab [facility] Building [address] [address] Nausea; Amenorrhea Social History Tobacco Use Types Packs/Day Years Used Date Smoking Tobacco: Never PHQ-2 Answer Date Recorded PHQ-2 Total Score (If total score is 3 or more points, staff should administer the PHQ-9) 0 04/12/2022 Comments No Sex and Gender Information Value Date Recorded Sex Assigned at Not on file Legal Sex Female 6:55 PM DISTANCE LEARNING UNIT LEADER Gender Identity Female 06/06/2022 7:40 AM DISTANCE LEARNING UNIT LEADER Sexual Orientation Not on file documented as of this encounter Miscellaneous Notes * Result Encounter Note - Lorie Vanessa NP - 06/06/2022 12:12 PM CST Negative test. ANCE LEARNING UNIT LEADER documented in this encounter Plan of Treatment Not on file documented as of this encounter Procedures Procedure Name Priority Date/Time Associated Diagnosis Comments HCG, BLOOD, QUANTITATIVE Routine 06/06/2022 9:52 AM DISTANCE LEARNING UNIT LEADER Nausea Amenorrhea documented in this encounter Results * hCG, blood, quantitative (06/06/2022 9:52 AM DISTANCE LEARNING UNIT LEADER) hCG, quant 0.3 0.0 - 5.0 IUnits/L [...] revised on 2021. Testing performed by: [facility], [address] [place] [address]., [address] Blood 06/06/2022 9:52 AM DISTANCE LEARNING UNIT LEADER 06/06/2022 10:44 AM DISTANCE LEARNING UNIT LEADER us Lorie Vanessa NP LAB BLOOD ORDERABLES Edited Resu lt - Final [facility] [address] [facility] Department [place] [address] documented in this encounter Visit Diagnoses Diagnosis Nausea Nausea alone Amenorrhea Absence of menstruation documented in this encounter Care Teams Home Visit Field Care Manager Relationship Specialty Start Date End Date Lorie Vanessa NP [address] [place] [address] PCP - General Family Practice 05/29/22 No, Physician 06/08/21 documented as of this encounter
--- OUTSIDE RECORDS SUMMARY | 2024-06-06 05:27 | XMS_ITS | Encounter Summary ---
Author Organization [facility] Healthcare Address [address] [place] [address] Care Team Providers Care Manager Warehouse Name Role Phone No, Physician Unavailable Collin Valdez MD Primary Care Provider [phone] Encounter Details Date Type Department Care Team (Late st Contact Info) Description 04/12/2022 10:25 AM MACHINE CAPTAIN Lab [facility] Building [address] [address] Frequent infections; Upper abdominal pain Social History Tobacco Use Types Packs/Day Years Used Date Smoking Tobacco: Never PHQ-2 Answer Date Recorded PHQ-2 Total Score (If total score is 3 or more points, staff should administer the PHQ-9) 0 04/12/2022 Comments No Sex and Gender Information Value Date Recorded Sex Assigned at Not on file Legal Sex Female 6:55 PM MACHINE CAPTAIN Gender Identity Female 06/06/2022 7:40 AM MACHINE CAPTAIN Sexual Orientation Not on file documented [...] 3 weeks ago, was 15.6, now 11 INE CAPTAIN documented in this encounter Plan of Treatment Not on file documented as of this encounter Procedures Procedure Name Priority Date/Time Associated Diagnosis Comments BLOOD MISC TO MARICAO Routine 04/12/2022 10 :38 AM MACHINE CAPTAIN EGFR Routine 04/12/2022 10:38 AM MACHINE CAPTAIN Upper abdominal pain DIFFERENTIAL AUTO Routine 04/12/2022 10: 38 AM MACHINE CAPTAIN Upper abdominal pain CBC WITH AUTO DIFFERENTIAL Routine 04/12/2022 10:38 AM MACHINE CAPTAIN Upper abdominal pain VITAMIN D 25 HYDROXY Routine 04/12/2022 10:38 AM MACHINE CAPTAIN Frequent infections LIPASE Routine 04/12/2022 10:38 AM MACHINE CAPTAIN Upper abdominal pain AMYLASE Routine 04/12/2022 10:38 AM MACHINE CAPTAIN Upper abdominal pain COMPREHENSIVE METABOLIC PANEL Routine 04/12/2022 10:38 AM MACHINE CAPTAIN Upper abdominal pain documented in this encounter Results * eGFR (04/12/2022 10:38 AM MACHINE CAPTAIN) [facility] eGFR 105 mL/min/1. 73 m2 [facility] [...] was last reviewed 2021. Testing performed by: [address] [address] Blood 04/12/2022 10:3 8 AM MACHINE CAPTAIN 04/12/2022 11:50 AM MACHINE CAPTAIN us Lorie Vanessa DOCTOR ASSISTANT LAB BLOOD ORDERABLES Final Resul t [facility] [address] [facility] Department [place] [address] * (ABNORMAL) Differential, auto (04/12/2022 10:38 AM MACHINE CAPTAIN) Neutrophil abs 7.6(H) 1.7 - 6.5 K/cumm FRAN Comment:Testing performed by : [address] [address] Imm gran abs 0.1 0.0 - 0.1 K/cumm [facility]AN Comment:Testing performed by : [address] [address] Lymphocyte abs 2.3 0.8 - 3.3 K/cumm FRAN Comment:Testing performed by : [address] [address] Monocyte abs 0.8 0.2 - 0.8 K/cumm [facility]AN Comment:Testing performed by : [address] [address] Eosinophil abs 0.1 0.0 - 0.5 K/cumm [facility]AN Comment:Testing performed by : [address] [address] Basophil abs 0.1 0.0 - 0.1 K/cumm FRAN Comment:Testing performed by : [address] [address] Neutrophil pct 69.0 % [place] Comment: Interpretive Data Percent cell count reference ranges are not reported, since discordance with absolute values may lead to misinterpretation of CBC data. Current Interpretive Data was last revised on 2017. Testing performed by: [address] [address] Imm gran pct 0.5 % [facility] Comment: Interpretive Data Percent cell count reference ranges are not reported, since discordance with absolute values may lead to misinterpretation of CBC data. Current Interpretive Data was last revised on 2017. Testing performed by: [address] [address] Lymphocyte pct 20.9 % [facility] Comment: Interpretive Data Percent cell count reference ranges are not reported, since discordance with absolute values may lead to misinterpretation of CBC data. Current Interpretive Data was last revised on 2017. Testing performed by: [address] [address] Monocyte pct 7.6 % [facility] Comment: Interpretive Data Percent cell count reference ranges are not reported, since discordance with absolute values may lead to misinterpretation of CBC data. Current Interpretive Data was last revised on 2017. Testing performed by: [address] [address] Eosinophil pct 1.3 % [facility] [place] Comment: Interpretive Data Percent cell count reference ranges are not reported, since discordance with absolute values may lead to misinterpretation of CBC data. Current Interpretive Data was last revised on 2017. Testing performed by: [address] [address] Basophil pct 0.7 % [facility] Comment: Interpretive Data Percent cell count reference ranges are not reported, since discordance with absolute values may lead to misinterpretation of CBC data. Current Interpretive Data was last revised on 2017. Testing performed by: [address] [place] [address] Blood 04/12/2022 10:3 8 AM MACHINE CAPTAIN 04/12/2022 11:49 AM MACHINE CAPTAIN us Lorie Vanessa NP LAB BLOOD ORDERABLES Final Resul t [facility] [address] [facility] Department [place] [address] * BLOOD MISC TO MARICAO (04/12/2022 10:38 AM MACHINE CAPTAIN) Test name, chem PN23, Streptococcus pneumoniae IgG Antibodies, 23 [facility] Comment:Testing performed by : [facility], [address] [place] [address]., [address] Misc See Footnote FRAN Comment: Test ?Result [...] developed and its performance characteristics ?determined by [facility] in a manner consistent with CLIA ?requirements. This test has not been cleared or approved by ?the U.S. Food and Drug Administration. ?Test Performed by: ?[facility] ?[address] [place] [address] ?Oyster Harvester: Lexx Pierre M.D. Ph.D.; CLIA# [id number] Testing performed by: [address], [address] Blood 04/12/2022 10:3 8 AM MACHINE CAPTAIN 04/12/2022 11:07 AM MACHINE CAPTAIN Collin Valdez MD LAB BLOOD ORDERABLES Final Resul t Performing Organization Address [facility] de Phone Number [address] [place] [place] [address] * Lipase (04/12/2022 10:38 AM MACHINE CAPTAIN) Lipase 20 10 - 99 Units/L [facility]AN Comment:Testing performed by : [address], [address] Blood 04/12/2022 10:3 8 AM MACHINE CAPTAIN 04/12/2022 11:50 AM MACHINE CAPTAIN us Lorie Vanessa NP LAB BLOOD ORDERABLES Final Resul t Performing Organization Address [facility] de Phone Number [address] [place] [place] [address] * Amylase (04/12/2022 10:38 AM MACHINE CAPTAIN) Amylase 33 30 - 99 Units/L [facility] Comment:Testing performed by : [address] [address] Blood 04/12/2022 10:3 8 AM MACHINE CAPTAIN 04/12/2022 11:50 AM MACHINE CAPTAIN us Lorie Vanessa NP LAB BLOOD ORDERABLES Final Resul t [facility] Department [place] [address] * (ABNORMAL) CBC with auto differential (04/12/2022 10:38 AM MACHINE CAPTAIN) WBC 11.0(H) 3.8 - 9.9 K/cumm [facility] Comment:Testing performed by : [address] [address] Hgb 13.3 11.9 - 15.5 g/dL [facility] Comment:Testing performed by : [address] [address] Hct 40.7 35.6 - 45.5 % [facility] Comment:Testing performed by : [address] [address] Plt 373 150 - 400 K/cumm [facility]AN Comment:Testing performed by : [address] [address] MPV 8.9(L) 9.1 - 12.3 fL [facility] Comment:Testing performed by : [address] [address] RBC 4.65 3.90 - 5.20 M/cumm [facility] Comment:Testing performed by : [address] [address] MCV 87.5 81.3 - 96.4 fL [facility] Comment:Testing performed by : [address] [address] MCH 28.6 27.1 - 33.3 pg [facility] Comment:Testing performed by : [address] [address] MCHC 32.7 32.3 - 35.7 g/dL [facility] Comment:Testing performed by : [address] [address] RDW CV 12.2 11.1 - 14.9 % [facility] Comment:Testing performed by : [address] [address] RDW SD 38.9 35.7 - 48.1 fL [facility] Comment:Testing performed by : [address] [address] NRBC abs 0.00 0.00 - 0.01 K/cumm [facility] Comment:Testing performed by : [address] [address] Blood 04/12/2022 10:3 8 AM MACHINE CAPTAIN 04/12/2022 11:49 AM MACHINE CAPTAIN us Lorie Vanessa NP LAB BLOOD ORDERABLES Final Resul t [facility] Department [place] [address] * Comprehensive metabolic panel (04/12/2022 10:38 AM MACHINE CAPTAIN) Sodium 141 135 - 145 mmol/L [facility] Comment:Testing performed by : [address] [address] Potassium, pl 4.4 3.3 - 4.9 mmol/L [facility] Comment:Testing performed by : [address] [address] Chloride 104 97 - 110 mmol/L [facility]AN Comment:Testing performed by : [address] [address] CO2 26 22 - 32 mmol/L [facility] Comment:Testing performed by : [address] [address] Anion gap 11 2 - 15 mmol/L [facility] [place] Comment:Testing performed by : [address] [address] BUN 12 8 - 25 mg/dL [facility] Comment:Testing performed by : [address] [address] Creatinine 0.80 0.60 - 1.10 mg/dL [facility] [place] Comment:Testing performed by : [address] [place]., [address] Glucose 93 70 - 199 mg/dL [facility] Comment: Interpretive Data Fasting glucose >/= 126 [...] was last revised 2017. Testing performed by: [address] [address] Calcium 9.4 8.5 - 10.3 mg/dL [facility] Comment:Testing performed by : [address] [address] Bilirubin, total 0.4 0.1 - 1.2 mg/dL [facility] [place] Comment:Testing performed by : [address] [address] Protein, pl 7.2 6.5 - 8.5 g/dL [facility] Comment:Testing performed by : [address] [address] Albumin 4.1 3.5 - 5.0 g/dL [facility] [place] Comment:Testing performed by : [address] [address] Alk phos 100 40 - 130 Units/L [facility] [place] Comment:Testing performed by : [address] [address] ALT 7 7 - 45 Units/L [facility] [place] Comment:Testing performed by : [address] [address] AST 15 10 - 45 Units/L [facility] Comment:Testing performed by : [address] [address] Blood 04/12/2022 10:3 8 AM MACHINE CAPTAIN 04/12/2022 11:50 AM MACHINE CAPTAIN us Lorie R. Otf DOCTOR ASSISTANT LAB BLOOD ORDERABLES Final Resul t Performing Organization Address City/[facility]/ZIP Co de Phone Number FRAN [address] [place] [place] [address] * (ABNORMAL) Vitamin D 25 hydroxy (04/12/2022 10:38 AM MACHINE CAPTAIN) Vitamin D 25-OH 18.0(L) 30.0 - 80.0 ng/mL [facility] Comment:Below Ref Range Blood 04/12/2022 10:3 8 AM MACHINE CAPTAIN 04/12/2022 2:50 PM MACHINE CAPTAIN Lorie Vanessa NP LAB BLOOD ORDERABLES Final Resul t Performing Organization Address [facility] de Phone Number FRAN [address] [address] documented in this encounter Visit Diagnoses Diagnosis Frequent infections Upper abdominal pain documented in this encounter Care Teams Manager Warehouse Relationship Specialty Start Date End Date Collin Valdez MD PCP - General Family Medicine 04/12/22 05/28/22 No, Physician 06/08/21 documented as of this encounter
--- OUTSIDE RECORDS SUMMARY | 2024-06-06 05:27 | XMS_ITS | Encounter Summary ---
Author Organization [facility] Address [address] [place] [address] Care Team Providers Care Day Care Provider Name Role Phone No, Physician Unavailable Collin Valdez MD Primary Care Provider [phone] Reason for Referral * Consultation (Routine) - Closed Specialty Diagnoses / Procedures Referred By Cyn burnett Referred To Contact Gastroenterology Diagnoses Upper abdominal pain Nausea Lorie Vanessa NP [facility] [address] Phone: tel: fax: [facility] Gastroenterology at [address] [place] [address] Phone: tel: Referral ID Status Reason Start Date Expiration Date V isits Requested Visits Authorized [id number] Closed Specialty Services Required 04/12/2022 05/12/2023 12 12 Question Answer Please select the performing region: External Order [[id number]] # of visits: 1 Comments Patient to call back with name of chosen provider. CH ENGINE MARKETING MANAGER * Consultation (Routine) - Closed Specialty Diagnoses / Procedures Referred By Cyn t Referred To Contact Cardiology Diagnoses Orthostatic hypotension Dizziness Tachycardia, unspecified Lorie Vanessa NP [address] [place] [address] Phone: tel: fax: Laurent Bueno MD Phone: tel: fax: Referral ID Status Reason Start Date Expiration Date V isits Requested Visits Authorized [id number] Closed Specialty Services Required 04/12/2022 05/12/2023 12 12 Question Answer Please select the performing region: [facility] [[id number]] Please select the performing department: [facility] [[id number]] To provider: LAURENT BUENO [[id number]] # of visits: 1 CH ENGINE MARKETING MANAGER Reason for Visit * Reason Comments New Patient Encounter Details Date Type Department Care Team (Late st Contact Info) Description 04/12/2022 9:00 AM SEARCH ENGINE MARKETING MANAGER Office Visit [facility] Primary Care at [address] [address] Lorie Vanessa NP [address] [place] [place] [address] Encounter to establish care (Primary Dx); [...] on file Legal Sex Female 6:55 PM SEARCH ENGINE MARKETING MANAGER Gender Identity Female 06/06/2022 7:40 AM SEARCH ENGINE MARKETING MANAGER Sexual Orientation Not on file documented as of this encounter Last Filed Vital Signs Vital Sign Reading Time Taken Comments Blood Pressure 106/68 04/12/2022 8:55 AM SEARCH ENGINE MARKETING MANAGER Pulse 95 04/12/2022 8:55 AM SEARCH ENGINE MARKETING MANAGER Temperature 37.1 ??C (98.7 ??F) 04/12/2022 8:55 AM CS T Respiratory Rate - - Oxygen Saturation 98% 04/12/2022 8:55 AM SEARCH ENGINE MARKETING MANAGER Inhaled Oxygen Concentration - - Weight 123.8 kg (273 lb) 04/12/2022 8:55 AM SEARCH ENGINE MARKETING MANAGER Height 162.6 cm (5' 4.02 ) 04/12/2022 8:55 AM CS T Body Mass Index 46.84 04/12/2022 8:55 AM SEARCH ENGINE MARKETING MANAGER documented in this encounter Patient Instructions * Patient Instructions* Lorie Vanessa NP - 04/12/2022 9:00 AM SEARCH ENGINE MARKETING MANAGER Start antibiotic and Diflucan. Refills for your [...] follow-up in 6 months for annual physicalexam. CH ENGINE MARKETING MANAGER CH ENGINE MARKETING MANAGER CH ENGINE MARKETING MANAGER CH ENGINE MARKETING MANAGER CH ENGINE MARKETING MANAGER documented in this encounter Ordered Prescriptions [...] this encounter Progress Notes * Lorie Vanessa, MALLET AND DIE CUTTER - 04/12/2022 9:00 AM CST Subjective/Objective Patient [...] appetite, but is on phentermine prescribed by associate civil engineer. 2) I feel like I am constantly [...] addition to above, includes PCOS (sees a associate civil engineer at [facility]), allergic rhinitis (cetirizine), bipolar/depression (Lamictal, sertraline), [...] 1 dose *This note is dictated using Kobo voice recognition software, variances in spelling and vocabulary are possible and unintentional.* Lorie Vanessa NP CH ENGINE MARKETING MANAGER documented in this encounter Miscellaneous Notes * Assessment & Plan Note - Lorie Vanessa NP - 04/15/2022 11:50 AM CSTAssociated Problem(s): Dizziness Recent onset, occurs with standing, with orthostatic hypotension as evidenced by a 20 point drop insystolic pressure going from lying to standing-advised to get fasting lab work done. Referred to cardiology, number provided to call and schedule appointment. CH ENGINE MARKETING MANAGER CH ENGINE MARKETING MANAGER * Assessment & Plan Note - Lorie [...] annual physical exam or sooner if needed. CH ENGINE MARKETING MANAGER * Assessment & Plan Note - Lorie Vanessa NP - 04/15/2022 11:48 AM CSTAssociated Problem(s): Frequent infections Chronic, recurrent upper respiratory infections and gastrointestinal problems- ordered strep pneumoniae antibody serotype test. CH ENGINE MARKETING MANAGER * Assessment & Plan Note - Lorie Vanessa NP - 04/15/2022 11:47 AM CSTAssociated Problem(s): Ingrown right big toenail (Resolved 12/11/2022) Acute-prescribed cephalexin 500 mg BID x 1 week, Diflucan also sent to pharmacy per patient request. CH ENGINE MARKETING MANAGER * Assessment & Plan Note - Lorie Vanessa NP - 04/15/2022 11:47 AM CSTAssociated Problem(s): Nausea Chronicity and stability unknown-prescribed pantoprazole once daily in morning 1/2 hour before mealtime. Advised to get fasting lab work done. Referred to gastroenterology, number provided to call and schedule appointment. CH ENGINE MARKETING MANAGER * Assessment & Plan Note - Lorie Vanessa NP - 04/15/2022 11:43 AM CSTAssociated Problem(s): Orthostatic hypotension Chronicity and stability unknown, with 20 point drop in systolic from lying to standing-advised to get fasting lab work done. Referred to cardiology, number provided to call and schedule appointment. CH ENGINE MARKETING MANAGER CH ENGINE MARKETING MANAGER CH ENGINE MARKETING MANAGER * Assessment & Plan Note - Lorie Vanessa NP - 04/15/2022 11:43 AM CSTAssociated Problem(s): GALEANO (dyspnea on exertion) Chronic, episodic, relieved with inhaler-refill for albuterol MDI sent to pharmacy per patient request. CH ENGINE MARKETING MANAGER * Assessment & Plan Note - Lorie Vanessa NP - 04/15/2022 11:41 AM CSTAssociated Problem(s): Tachycardia, unspecified Chronicity and stability unknown, with increase in heart rate from 113 to 132 going from sitting tostanding position-advised to get fasting lab work done. Referred to cardiology, number provided to call and schedule appointment. CH ENGINE MARKETING MANAGER CH ENGINE MARKETING MANAGER CH ENGINE MARKETING MANAGER CH ENGINE MARKETING MANAGER CH ENGINE MARKETING MANAGER * Assessment & Plan Note - Lorie Vanessa NP - 04/15/2022 11:40 AM CSTAssociated Problem(s): Upper abdominal pain (Resolved 12/11/2022) Chronicity and stability unknown-prescribed pantoprazole once daily in morning 1/2 hour before mealtime. Advised to get fasting lab work done. Referred to gastroenterology, number provided to call and schedule appointment. CH ENGINE MARKETING MANAGER CH ENGINE MARKETING MANAGER CH ENGINE MARKETING MANAGER CH ENGINE MARKETING MANAGER documented in this encounter Plan of [...] Vitamin D 25 hydroxy (04/12/2022 10:38 AM SEARCH ENGINE MARKETING MANAGER) Pathologist [facility] Vitamin D 25-OH 18.0(L) 30.0 - 80.0 ng/mL [facility] Comment:Below Ref Range Blood 04/12/2022 10:3 8 AM SEARCH ENGINE MARKETING MANAGER 04/12/2022 2:50 PM SEARCH ENGINE MARKETING MANAGER us Lorie Vanessa MALLET AND DIE CUTTER LAB BLOOD ORDERABLES Final Resul t [place] [id number] [facility] Department [place] [address] * Comprehensive metabolic panel (04/12/2022 10:38 AM SEARCH ENGINE MARKETING MANAGER) [facility] Sodium 141 135 - 145 mmol/L [facility] Comment:Testing performed by : [address] [address] Potassium, pl 4.4 3.3 - 4.9 mmol/L [facility] Comment:Testing performed by : [address] [address] Chloride 104 97 - 110 mmol/L [facility] Comment:Testing performed by : [address] [address] CO2 26 22 - 32 mmol/L [facility] Comment:Testing performed by : [address] [address] Anion gap 11 2 - 15 mmol/L [facility] Comment:Testing performed by : [address] [address] BUN 12 8 - 25 mg/dL [facility] Comment:Testing performed by : [address] [address] Creatinine 0.80 0.60 - 1.10 mg/dL [facility] Comment:Testing performed by : [address] [address] Glucose 93 70 - 199 mg/dL [facility] Comment: Interpretive Data Fasting glucose [...] was last revised 2017. Testing performed by: [address] [address] Calcium 9.4 8.5 - 10.3 mg/dL [facility] Comment:Testing performed by : [address] [address] Bilirubin, total 0.4 0.1 - 1.2 mg/dL [facility] Comment:Testing performed by : [address] [address] Protein, pl 7.2 6.5 - 8.5 g/dL [facility] Comment:Testing performed by : [address] [address] Albumin 4.1 3.5 - 5.0 g/dL [facility] Comment:Testing performed by : [address] [address] Alk phos 100 40 - 130 Units/L [facility] Comment:Testing performed by : [address] [address] ALT 7 7 - 45 Units/L [facility] Comment:Testing performed by : [address] [address] AST 15 10 - 45 Units/L [facility] Comment:Testing performed by : [address] [address] Blood 04/12/2022 10:3 8 AM SEARCH ENGINE MARKETING MANAGER 04/12/2022 11:50 AM SEARCH ENGINE MARKETING MANAGER us Lorie Vanessa NP LAB BLOOD ORDERABLES Final Resul t [facility] [address] [facility] [place] [address] * (ABNORMAL) CBC with auto differential (04/12/2022 10:38 AM SEARCH ENGINE MARKETING MANAGER) WBC 11.0(H) 3.8 - 9.9 K/cumm [facility] Comment:Testing performed by : [address] [address] Hgb 13.3 11.9 - 15.5 g/dL [facility] Comment:Testing performed by : [address] [address] Hct 40.7 35.6 - 45.5 % [facility] Comment:Testing performed by : [address] [address] Plt 373 150 - 400 K/cumm [facility] Comment:Testing performed by : [address] [address] MPV 8.9(L) 9.1 - 12.3 fL [facility] Comment:Testing performed by : [address] [address] RBC 4.65 3.90 - 5.20 M/cumm [facility] Comment:Testing performed by : [address] [address] MCV 87.5 81.3 - 96.4 fL [facility] Comment:Testing performed by : [address] [address] MCH 28.6 27.1 - 33.3 pg [facility] Comment:Testing performed by : [address] [address] MCHC 32.7 32.3 - 35.7 g/dL [facility] Comment:Testing performed by : [address] [address] RDW CV 12.2 11.1 - 14.9 % [facility] Comment:Testing performed by : [address] [address] RDW SD 38.9 35.7 - 48.1 fL [facility] Comment:Testing performed by : [address] [address] NRBC abs 0.00 0.00 - 0.01 K/cumm [facility] Comment:Testing performed by : [address] [address] Blood 04/12/2022 10:3 8 AM SEARCH ENGINE MARKETING MANAGER 04/12/2022 11:49 AM SEARCH ENGINE MARKETING MANAGER us Lorie Vanessa NP LAB BLOOD ORDERABLES Final Resul t Performing Organization Address City/[facility]/ZIP Co de Phone Number [address] [place] [address] * Amylase (04/12/2022 10:38 AM SEARCH ENGINE MARKETING MANAGER) Amylase 33 30 - 99 Units/L [facility] Comment:Testing performed by : [address] [address] Blood 04/12/2022 10:3 8 AM SEARCH ENGINE MARKETING MANAGER 04/12/2022 11:50 AM SEARCH ENGINE MARKETING MANAGER us Lorie Vanessa NP LAB BLOOD ORDERABLES Final Resul t [address] [place] [place] [address] * Lipase (04/12/2022 10:38 AM SEARCH ENGINE MARKETING MANAGER) Lipase 20 10 - 99 Units/L [facility] Comment:Testing performed by : [address] [address] Blood 04/12/2022 10:3 8 AM SEARCH ENGINE MARKETING MANAGER 04/12/2022 11:50 AM SEARCH ENGINE MARKETING MANAGER us Lorie Vanessa NP LAB BLOOD ORDERABLES Final Resul t [facility] [address] [facility] [place] [address] documented in this encounter Visit Diagnoses Diagnosis [...] total) by mouth nightly 01/01/2022 3 vit no.[id number] c 28 mg iron- 800 mcg tablet [...] 2 added in this encounter Care Teams Day Care Provider Relationship Specialty Start Date End Date Collin Valdez MD PCP - General Family Medicine 04/12/22 05/28/22 Mel Physician 06/08/21 documented as of this encounter
--- OUTSIDE RECORDS SUMMARY | 2024-06-06 05:27 | XMS_ITS | Encounter Summary ---
Author Organization [facility] Healthcare Address [address] [place] [address] Care Team Providers Care Client Delivery Manager Name Role Phone No, Physician Unavailable Lorie Vanessa NP Primary Care Provider [phone] Reason for Referral * Diagnostic Imaging (Routine) - Closed Specialty Diagnoses / Procedures Referred By Contac t Referred To Contact Diagnoses Acute foot pain, left Procedures XR Foot Left 3+ Vw Lorie Vanessa NP [address] [place] [address] Phone: tel: fax: [address] [phone] Referral ID Status Reason Start Date Expiration Date Visits Re quested Visits Authorized [id number] Closed 09/03/2022 10/03/2023 1 1 * Diagnostic Imaging (Routine) - Closed Specialty Diagnoses / Procedures Referred By Contac t Referred To Contact Diagnoses Acute pain of left knee Procedures XR Knee Left 1 Or 2 Vw Lorie Vaenssa NP [address] [place] [address] Phone: tel: fax: [address] [phone] Referral ID Status Reason Start Date Expiration Date Visits Re quested Visits Authorized [id number] Closed 09/03/2022 10/03/2023 1 1 * Diagnostic Imaging (Routine) - Closed Specialty Diagnoses / Procedures Referred By Contac t Referred To Contact Diagnoses Acute hip pain, left Procedures XR Hip Left 2+ Vw Lorie Vanessa NP [facility] [address] [address] Phone: tel: fax: [address] [phone] Referral ID Status Reason Start Date Expiration Date Visits Re quested Visits Authorized [id number] Closed 09/03/2022 10/03/2023 1 1 * Diagnostic Imaging (Routine) - Closed Specialty Diagnoses / Procedures Referred By Contac t Referred To Contact Diagnoses Acute left-sided low back pain without sciatica Procedures XR Spine Lumbar 2 Or 3 Vw Lorie Vanessa SPLICING TECHNICIAN [address] [place] [address] Phone: tel: fax: [address] [phone] Referral ID Status Reason Start Date Expiration Date Visits Re quested Visits Authorized [id number] Closed 09/03/2022 10/03/2023 1 1 * Diagnostic Imaging (Routine) - Closed Specialty Diagnoses / Procedures Referred By Contac t Referred To Contact Diagnoses Left elbow pain Procedures XR Elbow Left 3+ Vw Lorie Vanessa NP [address] [place] [address] Phone: tel: fax: [address] [phone] Referral ID Status Reason Start Date Expiration Date Visits Re quested Visits Authorized [id number] Closed 09/03/2022 10/03/2023 1 1 * Diagnostic Imaging (Routine) - Closed Specialty Diagnoses / Procedures Referred By Contac t Referred To Contact Diagnoses Acute pain of left shoulder Procedures XR Shoulder Left 2+ Vw Lorie Vanessa NP [address] [place] [address] Phone: tel: fax: [address] [phone] Referral ID Status Reason Start Date Expiration Date Visits Re quested Visits Authorized [id number] Closed 09/03/2022 10/03/2023 1 1 Reason for Visit * Diagnostic Imaging (Routine) - Closed Specialty Diagnoses / Procedures Referred By Contac t Referred To Contact Diagnoses Acute pain of left shoulder Procedures XR Shoulder Left 2+ Vw Lorie Vanessa NP [address] [place] [address] Phone: tel: fax: [address] [phone] Referral ID Status Reason Start Date Expiration Date Visits Re quested Visits Authorized [id number] Closed 09/03/2022 10/03/2023 1 1 Encounter Details Date Type Department Care Team (Latest Contact Info) Description 09/03/2022 11:34 AM CDT - 09/03/2022 11:59 PM CDT Hospital Encounter [facility] MOB [address] [place] [id number] Acute pain of left shoulder; Left elbow [...] on file Legal Sex Female 6:55 PM SWITCHBOARD TROUBLESHOOTER Gender Identity Female 06/06/2022 7:40 AM SWITCHBOARD TROUBLESHOOTER Sexual Orientation Not on file documented as [...] AM T: ??09/04/2022 8:15 AM Report ID: [id number] Reading Location: ??[id number] Procedure Note Segundo Curry MD - 09/04/2022 [...] hallux valgus on this nonweightbearing exam with [id number] metatarsophalangeal joint osteoarthritis. THIS IS AN ELECTRONICALLY VERIFIED FINAL REPORT 09/04/2022 8:15 AM - Electronically signed by Segundo Curry M.D. MF: DAISY Report ID: [id number] Reading Location: [id number] Lorie Vanessa NP IMG XR PROCEDURES Final [...] AM T: ??09/04/2022 8:15 AM Report ID: [id number] Reading Location: ??[id number] Procedure Note Segundo Curry MD - 09/04/2022 [...] hallux valgus on this nonweightbearing exam with [id number] metatarsophalangeal joint osteoarthritis. THIS IS AN ELECTRONICALLY VERIFIED FINAL REPORT 09/04/2022 8:15 AM - Electronically signed by Segundo Curry M.D. MF: DAISY Report ID: [id number] Reading Location: [id number] Lorie Vanessa NP IMG XR PROCEDURES Final [...] AM T: ??09/04/2022 8:15 AM Report ID: [id number] Reading Location: ??[id number] Procedure Note Segundo Curry MD - 09/04/2022 [...] hallux valgus on this nonweightbearing exam with [id number] metatarsophalangeal joint osteoarthritis. THIS IS AN ELECTRONICALLY VERIFIED FINAL REPORT 09/04/2022 8:15 AM - Electronically signed by Segundo Curry M.D. MF: DAISY Report ID: [id number] Reading Location: [id number] Lorie Vanessa NP IMG XR PROCEDURES Final [...] AM T: ??09/04/2022 8:15 AM Report ID: [id number] Reading Location: ??[id number] Procedure Note Segundo Curry MD - 09/04/2022 [...] hallux valgus on this nonweightbearing exam with seer7yg metatarsophalangeal joint osteoarthritis. THIS IS AN ELECTRONICALLY VERIFIED FINAL REPORT 09/04/2022 8:15 AM - Electronically signed by Segundo Curry M.D. MF: DAISY Report ID: [id number] Reading Location: [id number] Lorie Vanessa NP IMG XR PROCEDURES Final [...] AM T: ??09/04/2022 8:15 AM Report ID: [id number] Reading Location: ??[id number] Procedure Note Segundo Curry MD - 09/04/2022 [...] hallux valgus on this nonweightbearing exam with ensk7uc metatarsophalangeal joint osteoarthritis. THIS IS AN ELECTRONICALLY VERIFIED FINAL REPORT 09/04/2022 8:15 AM - Electronically signed by Segundo Curry M.D. MF: DAISY Report ID: [id number] Reading Location: [place] [id number] Lorie Vanessa SPLICING TECHNICIAN IMG XR PROCEDURES Final Result * XR [...] AM T: ??09/04/2022 8:15 AM Report ID: [id number] Reading Location: ??[id number] Procedure Note Segundo Curry MD - 09/04/2022 [...] hallux valgus on this nonweightbearing exam with [id number] metatarsophalangeal joint osteoarthritis. THIS IS AN ELECTRONICALLY VERIFIED FINAL REPORT 09/04/2022 8:15 AM - Electronically signed by Segundo VILLA: DAISY Report ID: [id number] Reading Location: [id number] Lorie Vanessa NP IMG XR PROCEDURES Final Result documented in this encounter Visit Diagnoses Diagnosis Acute pain of left shoulder Left elbow pain Pain in joint, upper arm Acute left-sided low back pain without sciatica Acute hip pain, left Acute pain of left knee Acute foot pain, left documented in this encounter Care Teams Client Delivery Manager Relationship Specialty Start Date End Date Lorie Vanessa, SPLICING TECHNICIAN [address] [place] [address] PCP - General Family Practice 05/29/22 No, Physician 06/08/21 documented as of this encounter
--- OUTSIDE RECORDS SUMMARY | 2024-06-06 05:27 | XMS_ITS | Encounter Summary ---
Author Organization [facility] Medical Group Address [address] [facility] [address] [place] [address] Care Team Providers Care Car Mechanic Name Role Phone No, Physician Unavailable Lorie Vanessa NP Primary Care Provider [phone] Reason for Visit * Reason Comments Follow-up ER; 07/07 due to vom itus and severe abdominal pain; No fever; fiance also acquired same Sx; Encounter Details Date Type Department Care Team ([facility] st Contact Info) Description 07/11/2022 4:15 PM ASPHALT ROLLER PERSON Office Visit [facility] Medical [facility] [place] [address] [facility] [address] [place] [address] Lorie Vanessa NP [address] [place] [address] Right upper quadrant pain (Primary Dx); [...] on file Legal Sex Female 6:55 PM ASPHALT ROLLER PERSON Gender Identity Female 06/06/2022 7:40 AM ASPHALT ROLLER PERSON Sexual Orientation Not on file documented as of this encounter Last Filed Vital Signs Vital Sign Reading Time Taken Comments Blood Pressure 112/75 07/11/2022 4:39 PM ASPHALT ROLLER PERSON Pulse 113 07/11/2022 4:39 PM ASPHALT ROLLER PERSON Temperature 36.7 ??C (98.1 ??F) 07/11/2022 4:39 PM CS T Respiratory Rate 14 07/11/2022 4:39 PM ASPHALT ROLLER PERSON Oxygen Saturation 98% 07/11/2022 4:39 PM ASPHALT ROLLER PERSON Inhaled Oxygen Concentration - - Weight 122.1 kg (269 lb 3.2 oz) 07/11/2022 4:39 PM ASPHALT ROLLER PERSON Height 162.6 cm (5' 4.02 ) 07/11/2022 4:39 PM CS T Body Mass Index 46.18 07/11/2022 4:39 PM ASPHALT ROLLER PERSON documented in this encounter Patient Instructions * Patient Instructions* Lorie Vanessa NP - 07/11/2022 4:15 PM ASPHALT ROLLER PERSON Go to ER for further evaluation of your right upper abdominal pain, left lower abdominal pain, and dizziness/pre-syncopal episodes. ALT ROLLER PERSON ALT ROLLER PERSON documented in this encounter Progress Notes * [...] evaluation. She has an appointment with her underwater photographer on Saturday, with GI on 08/21/22, Immunology [...] abdominal pain. *This note is dictated using [employer] voice recognition software, variances in spelling and vocabulary are possible and unintentional.* Lorie Vanessa NP ALT ROLLER PERSON documented in this encounter Miscellaneous Notes * Assessment & Plan Note - Lorie Vanessa NP - 07/11/2022 5:53 PM CSTAssociated Problem(s): Left lower quadrant pain (Resolved 12/11/2022) Go to ER for further evaluation of your left lower abdominal pain. ALT ROLLER PERSON * Assessment & Plan Note - Lorie Vanessa NP - 07/11/2022 5:53 PM CSTAssociated Problem(s): Dizziness Go to ER for further evaluation of your dizziness/pre-syncopal episodes. ALT ROLLER PERSON * Assessment & Plan Note - Lorie Vanessa NP - 07/11/2022 5:53 PM CSTAssociated Problem(s): Right upper quadrant pain Go to ER for further evaluation of your right upper abdominal pain. ALT ROLLER PERSON documented in this encounter Plan of Treatment [...] mouth nightly Alternate therapy 01/01/2022 07/11/2022 vit no.820-[id number] 28 mg iron- 800 mcg tablet Take [...] 3 added in this encounter Care Teams Car Mechanic Relationship Specialty Start Date End Date Lorie Vanessa NP [address] [place] [address] PCP - General Family Practice 05/29/22 No, Physician 06/08/21 documented as of this encounter
--- OUTSIDE RECORDS SUMMARY | 2024-06-06 05:27 | XMS_ITS | Encounter Summary ---
Author Organization [facility] Medical Group Address [address] [facility] [address] [place] [address] Care Team Providers Care Carver Hand Name Role Phone No, Physician Unavailable Lorie [...] Diagnoses Upper abdominal pain Nausea Lorie Vanessa, CHIEF MARKETING OFFICER [facility] [address] [address] Phone: tel: fax: [facility] Gastroenterology at [address] [place] [address] Phone: tel: Referral ID Status Reason Start Date Expiration Date V isits Requested Visits Authorized [id number] Closed Specialty Services Required 04/12/2022 05/12/2023 12 12 Encounter Details Date Type Department Care Team (Latest Contact Info) Description 08/21/2022 8:00 AM CDT Office Visit [facility] Gastroenterology at [address] [place] [phone] Cj Thomas MD [address] [place] [address] [address] [place] [address] Upper abdominal pain (Primary Dx); Nausea; Gastroesophageal [...] file Legal Sex Female 6:55 PM BUTTON BUTTONHOLE MARKER Gender Identity Female 06/06/2022 7:40 AM BUTTON BUTTONHOLE MARKER Sexual Orientation Not on file documented as [...] from the original note were not included. [facility] [place] Subjective/Objective Patient ID: Emily Guerrier is a [...] 11/21/2022). Cj Thomas MD Voice recognition software ([employer] Direct) was used to complete this document. Despite proofreading, alcohol rubber variances and typographical errors may occur. documented [...] ORDER DAVIN Final Result Performing Organization Address [facility] de Phone Number FRAN [address] [address] * C. difficile testing Stool (01/07/2023 12:09 PM CDT) Pathologist [facility] C. diff result Negative, DNA Negative , DNA [facility] C. diff interp Negative for toxigenic Clostridioides [...] ORDER DAVIN Final Result Performing Organization Address [facility] de Phone Number FRAN [address] [address] * (ABNORMAL) Stool culture Stool Rectum (01/07/2023 12:09 PM CDT) [facility] Direct Specimen Exam Shiga Toxin Testing: Antigen detection assay for Shiga-toxin NEGATIVE for Shiga Toxin 1 and Shiga Toxin 2. FRAN Comment:Testing performed by : [facility], [address] [place]., [address] Report Final Report: Enterococcus faecium Vancomycin Resistant Predominant organism. No growth of enteric bacterial pathogens (.) FRAN Comment:Testing performed by : [facility], [address] [place]., [address] Organism ENTEROCOCCUS FAECIUM FRAN Stool (Rectum) 01/07/2023 12 :09 PM CDT 01/07/2023 5:58 PM CDT Narrative FRAN - 01/11/2023 6:10 PM CDT received in [facility] Testing performed by [facility] Microbiology Laboratory ([phone]). Routine stool cultures include procedures to detect Salmonella, Shigella, Edwardsiella, Aeromonas, Pleisiomonas, Campylobacter, Yersinia, E. coli O157, and Shiga-like toxins. ?? Vibrio is cultured only upon special request. ??If Vibrio is suspected, please call the laboratory at [phone]. Interpretive data was last updated October 01, 2016. Cj Thomas MD LAB MICROBIOLOGY - GENERAL ORDER DAVIN Final Result FRAN [address] [facility] Department [place] [address] documented in this encounter Visit Diagnoses Diagnosis [...] 08/21/2022 documented in this encounter Care Teams Carver Hand Relationship Specialty Start Date End Date Lorie Vanessa NP [address] [place] [address] PCP - General Family Practice 05/29/22 No, Physician 06/08/21 documented as of this encounter
--- OUTSIDE RECORDS SUMMARY | 2024-06-06 05:27 | XMS_ITS | Encounter Summary ---
Author Organization [facility] Medical Group Address [address] [facility] [address] [place] [address] Care Team Providers Care Corrugator Supervisor Name Role Phone No, Physician Unavailable Lorie Vanessa NP Primary Care Provider [phone] Reason for Visit * Cardiology (Routine) - Closed Specialty Diagnoses / Procedures Referred By Cyn burnett Referred To Contact Diagnoses Dizziness Tachycardia, unspecified GALEANO (dyspnea on exertion) Procedures Extended/Nursing Home Holter Patch (>48 hours up to 7 days) Nile Prasad MD Phone: tel: fax: [facility] Referral ID Status Reason Start Date Expiration Date Visits Re quested Visits Authorized [id number] Closed 07/13/2022 08/12/2023 1 1 Encounter Details Date Type Department Care Team (Latest Contact Info) Description 07/13/2022 10:30 AM TEACHING MANAGER Ancillary Procedure [facility] Medical [facility] Cardiology [address] [facility] [address] [address] Dizziness; Tachycardia, unspecified; GALEANO (dyspnea on exertion) Social History Tobacco Use Types Packs/Day Years Used Date Smoking Tobacco: Never PHQ-2 Answer Date Recorded PHQ-2 Total Score (If total score is 3 or more points, staff should administer the PHQ-9) 0 04/12/2022 Comments No Sex and Gender Information Value Date Recorded Sex Assigned at Not on file Legal Sex Female 6:55 PM TEACHING MANAGER Gender Identity Female 06/06/2022 7:40 AM TEACHING MANAGER Sexual Orientation Not on file documented as of this encounter Plan of Treatment Not on file documented as of this encounter Procedures Procedure Name Priority Date/Time Associated Diagnosis Comments EXTENDED/PENITENTIARY HOLTER PATCH (>48 HOURS UP TO 7 DAYS) Routine 07/17/2022 2:43 PM TEACHING MANAGER Dizziness Tachycardia, unspecified GALEANO (dyspnea on exertion) documented in this encounter Results * Extended/Nursing Home Holter Patch (>48 hours up to 7 days) (07/17/2022 2:43 PM TEACHING MANAGER) Anatomical Region Laterality Modality Electrocardiogra phy Narrative [...] abnormality documented in this encounter Care Teams Corrugator Supervisor Relationship Specialty Start Date End Date Lorie Vanessa NP [address] [place] [address] PCP - General Family Practice 05/29/22 No, Physician 06/08/21 documented as of this encounter
--- OUTSIDE RECORDS SUMMARY | 2024-06-06 05:27 | XMS_ITS | Encounter Summary ---
Author Organization [facility] Healthcare Address [address] [place] [address] Care Team Providers Care Plaster Machine Tender Name Role Phone No, Physician Unavailable Sourav Jones NP Primary Care Provider Encounter Details Date Type Department Care Team (Late st Contact Info) Description 08/19/2021 1:25 PM CDT Lab [address] [address] Urinary urgency Social History Tobacco Use Types Packs/Day Years Used Date Smoking Tobacco: Never Comments Unknown Sex and Gender Information Value Date Recorded Sex Assigned at Not on file Legal Sex Female 6:55 PM WRITER Gender Identity Female 06/06/2022 7:40 AM WRITER Sexual Orientation Not on file documented [...] standards) FRAN CHIU Comment:Testing performed by : [facility], [address] [place]., [address] Organism (CLINICALLY INSIGNIFICANT GROWTH FRAN Urine, clean voided 08/19/2021 9:21 AM CDT 08/19/2021 4:44 PM CDT Narrative FRAN CHIU - 08/21/2021 7:05 AM CDT Testing performed by [facility] Microbiology Laboratory ([phone]) Sourav Jnoes NP LAB MICROBIOLOGY - GENERAL ORDERABLES Final Result FRAN [address] Department of Laboratories [place], [place] [id number] documented in this encounter Visit Diagnoses Diagnosis Urinary urgency Urgency of urination documented in this encounter Additional Health Concerns Infection Onset Date Last Indicated Resolved Time COVID: Recovered Comment:Added based on recent COVID infection. 06/23/2021 08/17/2021 10/21/2021 3:06 AM C DT documented as of this encounter Care Teams Plaster Machine Tender Relationship Specialty Start Date End Date Sourav Jones NP PCP - General Family Medicine 08/19/21 08/20/21 No, Physician 06/08/21 documented as of this encounter
--- OUTSIDE RECORDS SUMMARY | 2024-06-06 05:27 | XMS_ITS | Encounter Summary ---
Author Organization [facility] Address [address] [facility] [address] [place] [address] Care Team Providers Care Conveyor Line Battery Charger Name Role Phone No, Physician Unavailable Lorie Vanessa NP Primary Care Provider [phone] Reason for Referral * Diagnostic Imaging (Routine) - Closed Specialty Diagnoses / Procedures Referred By Contac t Referred To Contact Diagnoses Acute foot pain, left Procedures XR Foot Left 3+ Vw Lorie Vanessa NP [address] [place] [address] Phone: tel: fax: [address] [phone] Referral ID Status Reason Start Date Expiration Date Visits Re quested Visits Authorized [id number] Closed 09/03/2022 10/03/2023 1 1 * Diagnostic Imaging (Routine) - Closed Specialty Diagnoses / Procedures Referred By Contac t Referred To Contact Diagnoses Acute pain of left knee Procedures XR Knee Left 1 Or 2 Vw Lorie Vanessa NP [address] [place] [address] Phone: tel: fax: [address] [phone] Referral ID Status Reason Start Date Expiration Date Visits Re quested Visits Authorized [id number] Closed 09/03/2022 10/03/2023 1 1 * Diagnostic Imaging (Routine) - Closed Specialty Diagnoses / Procedures Referred By Contac t Referred To Contact Diagnoses Acute hip pain, left Procedures XR Hip Left 2+ Vw Lorie Vanessa NP [facility] [address] Phone: tel: fax: [address] [phone] Referral ID Status Reason Start Date Expiration Date Visits Re quested Visits Authorized [id number] Closed 09/03/2022 10/03/2023 1 1 * Diagnostic Imaging (Routine) - Closed Specialty Diagnoses / Procedures Referred By Contac t Referred To Contact Diagnoses Acute left-sided low back pain without sciatica Procedures XR Spine Lumbar 2 Or 3 Vw Lorie Vanessa DAIRY FEED WORKER [facility] [address] [address] Phone: tel: fax: [address] [phone] Referral ID Status Reason Start Date Expiration Date Visits Re quested Visits Authorized [id number] Closed 09/03/2022 10/03/2023 1 1 * Diagnostic Imaging (Routine) - Closed Specialty Diagnoses / Procedures Referred By Contac t Referred To Contact Diagnoses Left elbow pain Procedures XR Elbow Left 3+ Vw Lorie Vanessa NP [address] [place] [address] Phone: tel: fax: [address] [phone] Referral ID Status Reason Start Date Expiration Date Visits Re quested Visits Authorized [id number] Closed 09/03/2022 10/03/2023 1 1 * Diagnostic Imaging (Routine) - Closed Specialty Diagnoses / Procedures Referred By Contac t Referred To Contact Diagnoses Acute pain of left shoulder Procedures XR Shoulder Left 2+ Vw Lorie Vanessa NP [address] [place] [address] Phone: tel: fax: [address] [phone] Referral ID Status Reason Start Date Expiration Date Visits Re quested Visits Authorized [id number] Closed 09/03/2022 10/03/2023 1 1 Reason for Visit * Reason Comments Fall Leg and back pain; W -2; Medication Problem New Rx for pantopraz ole for daily as per ins. Encounter Details Date Type Department Care Team (Late st Contact Info) Description 09/03/2022 10:30 AM CDT Office Visit [facility] Primary Care at [address] [address] Lorie Vanessa NP [address] [place] [address] Acute pain of left shoulder (Primary [...] on file Legal Sex Female 6:[address] MAGISTRATE Gender Identity Female 06/06/2022 7:[address] MAGISTRATE Sexual Orientation Not on file documented as [...] continue heat and/or ice. Can also use bwan-ezv-gjiyalv lidocaine patches OR topical analgesic creams as [...] 3 to 5 ft. She landed on [place]. Point of impact: Fell onto left side. [...] heat and/or ice. Informed can also use jplo-fnm-hbhqbtl lidocaine patchesOR topical analgesic creams as directed [...] heat and/or ice. Informed can also use jlws-izq-pvvwhic lidocaine patches ORtopical analgesic creams as directed [...] heat and/or ice. Informed can also use yngn-hnu-naojbhs lidocainepatches OR topical analgesic creams as directed [...] heat and/or ice. Informed can also use iddm-ehb-krvrqrn lidocaine patches OR topical analgesic creams as [...] heat and/or ice. Informed can also use bfhl-yqf-cwodsdv lidocaine patches OR topical analgesic creams as [...] heat and/or ice. Informed can also use ifky-apf-jwqbynu lidocaine patches OR topical analgesic creams as directed as needed, but NOT with heat or ice. Instructed that further rec ommendations will depend on outcome of xrays. Orders: - XR Foot Left 3+ Vw; Future *This note is dictated using [employer] medical voice recognition software, variances in spelling [...] heat and/or ice. Informed can also use ydcn-dps-aqsfyus lidocaine patches OR topical analgesic creams as [...] heat and/or ice. Informed can also use xiqb-gry-jfhywmb lidocaine patches OR topical analgesic creams as [...] heat and/or ice. Informed can also use gqxe-gtv-udqkwla lidocaine patches OR topical analgesic creams as [...] heat and/or ice. Informed can also use qscm-tmh-lusrmwf lidocainepatches OR topical analgesic creams as directed [...] heat and/or ice. Informed can also use gwvs-xbs-topuesf lidocaine patches ORtopical analgesic creams as directed [...] heat and/or ice. Informed can also use yjwa-vni-jcxyzpj lidocaine patchesOR topical analgesic creams as directed [...] AM T: ??09/04/2022 8:15 AM Report ID: [id number] Reading Location: ??[id number] Procedure Note Segundo Curry MD - 09/04/2022 [...] hallux valgus on this nonweightbearing exam with wczx5pl metatarsophalangeal joint osteoarthritis. THIS IS AN ELECTRONICALLY VERIFIED FINAL REPORT 09/04/2022 8:15 AM - Electronically signed by Segundo Curry M.D. MF: DAISY Report ID: [id number] Reading Location: [id number] us Lorie Vanessa DAIRY FEED WORKER IMG XR PROCEDURES Final Result * XR [...] AM T: ??09/04/2022 8:15 AM Report ID: [id number] Reading Location: ??[id number] Procedure Note Segundo Curry MD - 09/04/2022 [...] hallux valgus on this nonweightbearing exam with nhci7iz metatarsophalangeal joint osteoarthritis. THIS IS AN ELECTRONICALLY VERIFIED FINAL REPORT 09/04/2022 8:15 AM - Electronically signed by Segundo Curry M.D. MF: DAISY Report ID: [id number] Reading Location: [id number] Lorie LyleLaura Vanessa DAIRY FEED WORKER IMG XR PROCEDURES Final Result * XR [...] AM T: ??09/04/2022 8:15 AM Report ID: [id number] Reading Location: ??[id number] Procedure Note Segundo Curry MD - 09/04/2022 [...] hallux valgus on this nonweightbearing exam with [id number] metatarsophalangeal joint osteoarthritis. THIS IS AN ELECTRONICALLY VERIFIED FINAL REPORT 09/04/2022 8:15 AM - Electronically signed by Segundo VILLA: DAISY Report ID: [id number] Reading Location: [id number] us Lorie Vanessa DAIRY FEED WORKER IMG XR PROCEDURES Final Result * XR [...] AM T: ??09/04/2022 8:15 AM Report ID: [id number] Reading Location: ??[id number] Procedure Note Segudno Curry MD - 09/04/2022 EXAM DESCRIPTION: XR [...] hallux valgus on this nonweightbearing exam with jdrn6tg metatarsophalangeal joint osteoarthritis. THIS IS AN ELECTRONICALLY VERIFIED FINAL REPORT 09/04/2022 8:15 AM - Electronically signed by Segundo Curry M.D. MF: DAISY Report ID: [id number] Reading Location: [id number] Lorie Vanessa NP IMG XR PROCEDURES Final [...] AM T: ??09/04/2022 8:15 AM Report ID: [id number] Reading Location: ??[id number] Procedure Note Segundo Curry MD - 09/04/2022 [...] hallux valgus on this nonweightbearing exam with jjsz9df metatarsophalangeal joint osteoarthritis. THIS IS AN ELECTRONICALLY VERIFIED FINAL REPORT 09/04/2022 8:15 AM - Electronically signed by Segundo Curry M.D. MF: DAISY Report ID: [id number] Reading Location: [id number] Lorie Vanessa DAIRY FEED WORKER IMG XR PROCEDURES Final Result * XR [...] AM T: ??09/04/2022 8:15 AM Report ID: [id number] Reading Location: ??[id number] Procedure Note Segundo Curry MD - 09/04/2022 [...] hallux valgus on this nonweightbearing exam with [id number] metatarsophalangeal joint osteoarthritis. THIS IS AN ELECTRONICALLY VERIFIED FINAL REPORT 09/04/2022 8:15 AM - Electronically signed by Segundo Curry M.D. MF: DAISY Report ID: [id number] Reading Location: [place] [id number] Lorie Vanessa NP IMG XR PROCEDURES Final [...] documented as of this encounter Care Teams Conveyor Line Battery Charger Relationship Specialty Start Date End Date Lorie Vanessa NP [address] [place], [place] [id number] PCP - General Family Practice 05/29/22 No, Physician 06/08/21 documented as of this encounter
--- OUTSIDE RECORDS SUMMARY | 2024-06-06 05:27 | XMS_ITS | Encounter Summary ---
Author Organization [facility] Medical [facility] Address [address] [facility] [address] [place] [address] Care Team Providers Care Business Support Professional Name Role Phone No, Physician Unavailable Collin Valdez MD Primary Care Provider [phone] Encounter Details Date Type Department Care Team (Late st Contact Info) Description 05/02/2022 Telephone [facility] Primary Care [address] [facility] [address] [place] [address] Collin Valdez MD [facility] [address] Social History Tobacco Use Types Packs/Day Years Used Date Smoking Tobacco: Never PHQ-2 Answer Date Recorded PHQ-2 Total Score (If total score is 3 or more points, staff should administer the PHQ-9) 0 04/12/2022 Comments No Sex and Gender Information Value Date Recorded Sex Assigned at Not on file Legal Sex Female 6:55 PM BILINGUAL MEDICAL RECEPTIONIST Gender Identity Female 06/06/2022 7:40 AM BILINGUAL MEDICAL RECEPTIONIST Sexual Orientation Not on file documented as of this encounter Miscellaneous Notes * Telephone Encounter - Collin Valdez MD - 05/02/2022 10:10 AM CST Probably not good test for acute strep. She has antibody of serotype 1, history of previous infection. NGUAL MEDICAL RECEPTIONIST * Telephone Encounter - Miranda Mack LPN - 05/02/2022 8:25 AM CST Pneumonia titer? NGUAL MEDICAL RECEPTIONIST * Telephone Encounter - Miranda Mack LPN - 05/02/2022 8:24 AM CST ----- Message from Collin Valdez MD sent at 05/01/2022 5:00 PM BILINGUAL MEDICAL RECEPTIONIST ----- Regarding: FW: pneumonia titer Contact: ----- Message ----- From: Miranda Mack LPN Sent: 05/01/2022 8:19 AM BILINGUAL MEDICAL RECEPTIONIST To: Collin Valdez MD Subject: FW: pneumonia titer Please review and advise., ----- Message ----- From: Emily Guerrier Sent: 05/01/2022 1:57 AM BILINGUAL MEDICAL RECEPTIONIST To: Bjg Pcp Cathy Castellanos [facility] [place] Subject: pneumonia titer hi, I was reaching out to see if i'm able to get these test results explained. I've never seen thistest before and am just curious about what the results mean. i attempted to reach out to Lorie Vanessa and she has not responded back. thanks NGUAL MEDICAL RECEPTIONIST documented in this encounter Plan of Treatment Not on file documented as of this encounter Visit Diagnoses Not on filedocumented in this encounter Care Teams Business Support Professional Relationship Specialty Start Date End Date Collin Valdez MD PCP - General Family Medicine 04/12/22 05/28/22 No, Physician 06/08/21 documented as of this encounter
--- OUTSIDE RECORDS SUMMARY | 2024-06-06 05:27 | XMS_ITS | Encounter Summary ---
Author Organization [facility] Address [address] [facility] [address] [place] [address] Care Team Providers Care Check Cashier Name Role Phone No, Physician Unavailable Lorie Vanessa NP Primary Care Provider [phone] Reason for Visit * Reason Comments Follow-up Gastro issues; Cyst R Neck; has been pi cking at it; W-1; OTC Rx neosporin; Encounter Details Date Type Department Care Team ([facility] st Contact Info) Description 06/06/2022 8:30 AM TRANSPORTATION AID Office Visit [facility] Primary Care at [place] [id number] [address] Lorie Vanessa DIRECTOR OF PSYCHOLOGY [address] [place] [address] Nausea (Primary Dx); Amenorrhea; Need for [...] on file Legal Sex Female 6:55 PM TRANSPORTATION AID Gender Identity Female 06/06/2022 7:40 AM TRANSPORTATION AID Sexual Orientation Not on file documented as of this encounter Last Filed Vital Signs Vital Sign Reading Time Taken Comments Blood Pressure 120/74 06/06/2022 8:36 AM TRANSPORTATION AID Pulse 75 06/06/2022 8:36 AM TRANSPORTATION AID Temperature 36.6 ??C (97.9 ??F) 06/06/2022 8:36 AM CS T Respiratory Rate 14 06/06/2022 8:36 AM TRANSPORTATION AID Oxygen Saturation 99% 06/06/2022 8:36 AM TRANSPORTATION AID Inhaled Oxygen Concentration - - Weight 126.6 kg (279 lb 1.6 oz) 06/06/2022 8:36 AM TRANSPORTATION AID Height 162.6 cm (5' 4.02 ) 06/06/2022 8:36 AM CS T Body Mass Index 47.88 06/06/2022 8:36 AM TRANSPORTATION AID documented in this encounter Patient Instructions * Patient Instructions* Lorie Vanessa NP - 06/06/2022 8:30 AM TRANSPORTATION AID Increase pantoprazole to 40 mg twice daily, [...] in 6 months for annual physical exam. SPORTATION AID SPORTATION AID SPORTATION AID SPORTATION AID documented in this encounter Ordered Prescriptions Prescription [...] this encounter Progress Notes * Lorie Vanessa, DIRECTOR OF PSYCHOLOGY - 06/06/2022 8:30 AM CST Images from [...] tenderness. She was previously referred to a cardiology associate, has an appointment on 08/21/22. 2) At [...] immune response to vaccination and/or refer to exceptional children teacher. 3) Heart rate increase upon standing, chronicity unknown, states continues to happen, also with dizziness upon standing, negative when tested for orthostatic hypotension at last visit. She has an appointment with a erco machine operator on 07/13/22 for tachycardia and dizziness. 4) Sore on neck, states has been picking it, worried that it might be infected. Her past medical history, in addition to above, includes PCOS (sees a mechanic/welder at [facility]), allergic rhinitis (cetirizine), bipolar/depression (Lamictal, sertraline), [...] immune response to vaccination and/or refer to exceptional children teacher. Orders: - Tdap vaccine greater than or equal to 7yo IM - Pneumococcal polysaccharide vaccine 23-valent greater than or equal to 2yo subcutaneous/IM (PNEUMOVAX) Upper abdominal pain (R10.10) Assessment & Plan: Chronicity unknown, resolved with Protonix, however epigastric area tender upon palpation-increase Protonix to 40 mg twice daily. Encouraged to keep scheduled appointment with cardiology associate. Orders: - pantoprazole DR (PROTONIX) 40 mg EC tablet; Take 1 tablet (40 mg total) by mouth 2 (two) times a day Tachycardia, unspecified (R00.0) Assessment & Plan: Chronicity and stability unknown, heart rate 75 beats per minute and regular at today's visit-encouraged to keep scheduled appointment with erco machine operator. Frequent infections (Z86.19) Assessment & Plan: Currently asymptomatic-reviewed strep pneumoniae antibody serotypes, immune to 12/ types tested-recommended Pneumovax 23, given today. Advised if continues to get sick frequently after vaccination,can draw a post-vaccine titer to assess immune response to vaccination and/or refer to exceptional children teacher. Abrasion of neck, initial encounter (S10.91XA) Assessment & Plan: Acute-instructed to apply triple antibiotic ointment as directed as needed and avoid picking at area. *This note is dictated using [employer] voice recognition software, variances in spelling and vocabulary are possible and unintentional.* Lorie Vanessa NP Cosigned by Collin Valdez MD at 06/10/2022 5:51 PM TRANSPORTATION AID SPORTATION AID SPORTATION AID SPORTATION AID documented in this encounter Miscellaneous Notes * Assessment & Plan Note - Lorie Vanessa NP - 06/09/2022 2:52 PM CSTAssociated Problem(s): Abrasion of neck (Resolved 12/11/2022) Acute-instructed to apply triple antibiotic ointment as directed as needed and avoid picking at area. SPORTATION AID * Assessment & Plan Note - Lorie Vanessa NP - 06/09/2022 2:34 PM CSTAssociated Problem(s): Amenorrhea Acute-ordered serum test. SPORTATION AID * Assessment & Plan Note - Lorie Vanessa NP - 06/09/2022 2:31 PM CSTAssociated Problem(s): Frequent infections Currently asymptomatic-reviewed strep pneumoniae antibody serotypes, immune to 12/23 types tested-recommended Pneumovax 23, given today. Advised if continues to get sick frequently after vaccination,can draw a post-vaccine titer to assess immune response to vaccination and/or refer to exceptional children teacher. SPORTATION AID * Assessment & Plan Note - Lorie Vanessa NP - 06/09/2022 2:31 PM CSTAssociated Problem(s): Need for vaccination (Resolved 05/17/2023) Reviewed strep pneumoniae antibody serotypes, immune to 12/23 types tested- recommended Pneumovax 23, given today, also given Tdap, due. Advised if continues to get sick frequently after vaccination, can draw a post-vaccine titer to assess immune response to vaccination and/or refer to exceptional children teacher. SPORTATION AID SPORTATION AID * Assessment & Plan Note - Lorie Vanessa NP - 06/09/2022 2:30 PM CSTAssociated Problem(s): Nausea Chronic, uncontrolled, despite starting treatment with Protonix 40 mg once daily-increased Protonixto 40 mg twice daily, new prescription sent to pharmacy along with a refill for Zofran per your request. A urine test has been ordered. SPORTATION AID * Assessment & Plan Note - Lorie Vanessa NP - 06/09/2022 2:29 PM CSTAssociated Problem(s): Tachycardia, unspecified Chronicity and stability unknown, heart rate 75 beats per minute and regular at today's visit-encouraged to keep scheduled appointment with erco machine operator. SPORTATION AID SPORTATION AID * Assessment & Plan Note - Lorie Vanessa NP - 06/09/2022 2:28 PM CSTAssociated Problem(s): Upper abdominal pain (Resolved 12/11/2022) Chronicity unknown, resolved with Protonix, however epigastric area tender upon palpation-increase Protonix to 40 mg twice daily. Encouraged to keep scheduled appointment with cardiology associate. SPORTATION AID documented in this encounter Plan of Treatment Not on file documented as of this encounter Results * hCG, blood, quantitative (06/06/2022 9:52 AM TRANSPORTATION AID) hCG, quant 0.3 0.0 - 5.0 IUnits/L [...] last revised on 2021. Testing performed by: [facility], [address] [place] [address]., [id number] Blood 06/06/2022 9:52 AM TRANSPORTATION AID 06/06/2022 10:44 AM TRANSPORTATION AID us Lorie Vanessa NP LAB BLOOD ORDERABLES Edited Resu lt - Final FRAN [address] [facility] Department [place] [address] documented in this encounter Visit Diagnoses Diagnosis [...] 06/06/2022 documented in this encounter Care Teams Check Cashier Relationship Specialty Start Date End Date Lorie Vanessa NP [address] [place] [address] PCP - General Family Practice 05/29/22 No, Physician 06/08/21 documented as of this encounter
--- OUTSIDE RECORDS SUMMARY | 2024-06-06 05:27 | XMS_ITS | Encounter Summary ---
Author Organization [facility] Address [address] [place] [address] Care Team Providers Care Bathing Suit Maker Name Role Phone No, Physician Unavailable Lorie Vanessa NP Primary Care Provider [phone] Encounter Details Date Type Department Care Team (Late st Contact Info) Description 07/07/2022 E-Visit [facility] Virtual Care [address] [place] [address] Barb Otero NP [address] [place] [address] E-Visit for Diarrhea Social History Tobacco Use Types Packs/Day Years Used Date Smoking Tobacco: Never PHQ-2 Answer Date Recorded PHQ-2 Total Score (If total score is 3 or more points, staff should administer the PHQ-9) 0 04/12/2022 Comments No Sex and Gender Information Value Date Recorded Sex Assigned at Not on file Legal Sex Female 6:55 PM LAW ENFORCEMENT INSTRUCTOR Gender Identity Female 06/06/2022 7:40 AM LAW ENFORCEMENT INSTRUCTOR Sexual Orientation Not on file documented [...] prescribed, if applicable, as well as any kazg-zta-lwdlccy remedies. She was given instructions regarding follow up and timeframe if symptoms worsen or don???t improve. These instructions were included in the [employer] message reply tothe patient. Patient Instructions were included in the message reply to patient. My total encounter time on 07/07/2022 was 3 minutes which was spent in the activities documented inthe note. Barb Otero NP ENFORCEMENT INSTRUCTOR documented in this encounter Plan of Treatment Not on file documented as of this encounter Visit Diagnoses Diagnosis Abdominal pain- Primary Abdominal pain, unspecified site Vomiting, unspecified vomiting type, unspecified whether nausea present documented in this encounter Care Teams Bathing Suit Maker Relationship Specialty Start Date End Date Lorie Vanessa NP [address] [place] [address] PCP - General Family Practice 05/29/22 No, Physician 06/08/21 documented as of this encounter
--- OUTSIDE RECORDS SUMMARY | 2024-06-06 05:27 | XMS_ITS | Encounter Summary ---
Author Organization [facility] Address [address] [facility] [address] [place] [address] Care Team Providers Care High School Chemistry Teacher Name Role Phone No, Physician Unavailable Lorie Vanessa NP Primary Care Provider [phone] Encounter Details Date Type Department Care Team (Late st Contact Info) Description 06/15/[address] [facility] Primary Care at [place] [address] [facility] [address] [place] [address] Lorie Vanessa NP [address] [place] [address] Social History Tobacco Use Types Packs/Day Years Used Date Smoking Tobacco: Never PHQ-2 Answer Date Recorded PHQ-2 Total Score (If total score is 3 or more points, staff should administer the PHQ-9) 0 04/12/2022 Comments No Sex and Gender Information Value Date Recorded Sex Assigned at Not on file Legal Sex Female 6:55 PM CLINIC CHARGE NURSE Gender Identity Female 06/06/2022 7:40 AM CLINIC CHARGE NURSE Sexual Orientation Not on file documented as of this encounter Miscellaneous Notes * Telephone Encounter - Shilo Michael MA - 06/15/2022 8:38 AM CST Pantoprazole 40 mg BID PA submitted via CMM. Determination pending. IC CHARGE NURSE documented in this encounter Plan of Treatment Not on file documented as of this encounter Visit Diagnoses Not on filedocumented in this encounter Care Teams High School Chemistry Teacher Relationship Specialty Start Date End Date Lorie Vanessa NP [address] [place] [address] PCP - General Family Practice 05/29/22 No, Physician 06/08/21 documented as of this encounter
--- OUTSIDE RECORDS SUMMARY | 2024-06-06 05:27 | XMS_ITS | Encounter Summary ---
Author Organization [facility] Address [address] [facility] [address] [place] [address] Care Team Providers Care Application Defense Manager Name Role Phone No, Physician Unavailable Lorie Vanessa NP Primary Care Provider [phone] Encounter Details Date Type Department Care Team (Late st Contact Info) Description 07/10/2022 Telephone [facility] Primary Care at [place] [address] [facility] [address] [place] [address] Lorie Vanessa NP [address] [place] [address] Social History Tobacco Use Types Packs/Day Years Used Date Smoking Tobacco: Never PHQ-2 Answer Date Recorded PHQ-2 Total Score (If total score is 3 or more points, staff should administer the PHQ-9) 0 04/12/2022 Comments No Sex and Gender Information Value Date Recorded Sex Assigned at Not on file Legal Sex Female 6:55 PM DIRECTOR OF MANUFACTURING OPERATIONS Gender Identity Female 06/06/2022 7:40 AM DIRECTOR OF MANUFACTURING OPERATIONS Sexual Orientation Not on file documented as of this encounter Miscellaneous Notes * Telephone Encounter - Janelle Linda - 07/10/2022 9:37 AM CST Contacted pt and scheduled f/u CTOR OF MANUFACTURING OPERATIONS * Telephone Encounter - Janelle Linda - 07/10/2022 9:36 AM CST ----- Message from Lorie Vanessa NP sent at 07/10/2022 6:05 AM DIRECTOR OF MANUFACTURING OPERATIONS ----- Regarding: ER follow-up She needs an ER follow-up visit this week. CTOR OF MANUFACTURING OPERATIONS documented in this encounter Plan of Treatment Not on file documented as of this encounter Visit Diagnoses Not on filedocumented in this encounter Care Teams Application Defense Manager Relationship Specialty Start Date End Date Lorie Vanessa NP [address] [place] [address] PCP - General Family Practice 05/29/22 No, Physician 06/08/21 documented as of this encounter
--- OUTSIDE RECORDS SUMMARY | 2024-06-06 05:27 | XMS_ITS | Encounter Summary ---
Author Organization [facility] Healthcare Address [address] [place] [address] Care Team Providers Care Gericare Aide Name Role Phone No, Physician Unavailable Lorie Vanessa NP Primary Care Provider [phone] Encounter Details Date Type Department Care Team (Late st Contact Info) Description 07/07/2022 Patient Self-Triage [facility] HealthCare/ Physicians [address] [place] [address] Mychart, Generic Provider [address] [place] [address] Social History Tobacco Use Types Packs/Day Years Used Date Smoking Tobacco: Never PHQ-2 Answer Date Recorded PHQ-2 Total Score (If total score is 3 or more points, staff should administer the PHQ-9) 0 04/12/2022 Comments No Sex and Gender Information Value Date Recorded Sex Assigned at Not on file Legal Sex Female 6:55 PM FIBERGLASS TECHNICIAN Gender Identity Female 06/06/2022 7:40 AM FIBERGLASS TECHNICIAN Sexual Orientation Not on file documented as of this encounter Plan of Treatment Not on file documented as of this encounter Visit Diagnoses Not on filedocumented in this encounter Care Teams Gericare Aide Relationship Specialty Start Date End Date Lorie Vanessa NP [address] [place], [place] [id number] PCP - General Family Practice 05/29/22 No, Physician 06/08/21 documented as of this encounter
--- OUTSIDE RECORDS SUMMARY | 2024-06-06 05:27 | XMS_ITS | Encounter Summary ---
Author Organization [facility] Address [address] [facility] [address] [place] [address] Care Team Providers Care Lead Electrical Engineer Name Role Phone No, Physician Unavailable Lorie Vanessa NP Primary Care Provider [phone] Reason for Visit * Reason Onset Date Comments Patient Running Late For Apt 06/06/2022 Encounter Details Date Type Department Care Team (Late st Contact Info) Description 06/06/2022 Telephone [facility] Primary Care at [place] [id number] [address] Lorie Vanessa PAINTER MIRROR [address] [place] [address] Patient Running Late For Apt Social History Tobacco Use Types Packs/Day Years Used Date Smoking Tobacco: Never PHQ-2 Answer Date Recorded PHQ-2 Total Score (If total score is 3 or more points, staff should administer the PHQ-9) 0 04/12/2022 Comments No Sex and Gender Information Value Date Recorded Sex Assigned at Not on file Legal Sex Female 6:55 PM STOKER MECHANIC Gender Identity Female 06/06/2022 7:40 AM STOKER MECHANIC Sexual Orientation Not on file documented as of this encounter Miscellaneous Notes * Telephone Encounter - Janelle Linda - 06/06/2022 8:30 AM CST Noted. ER MECHANIC * Telephone Encounter - Lorie Hall - 06/06/2022 7:49 AM CST Patient running late for appointment Date of Appointment: 06/06/2022 Time of Appointment: 8:30 Reason for running late: couldn't get out of work on time Patient???s estimated time of arrival: 8:30 -08:35 Did you attempt to reschedule the appointment? Pt declined Caller???s [phone] #: Does message need to be routed?Yes-Action Needed ER MECHANIC documented in this encounter Plan of Treatment Not on file documented as of this encounter Visit Diagnoses Not on filedocumented in this encounter Care Teams Lead Electrical Engineer Relationship Specialty Start Date End Date Lorie Vanessa NP [address] [place] [address] PCP - General Family Practice 05/29/22 No, Physician 06/08/21 documented as of this encounter
--- OUTSIDE RECORDS SUMMARY | 2024-06-06 05:27 | XMS_ITS | Encounter Summary ---
Author Organization [facility] Healthcare Address [address] [place] [address] Care Team Providers Care Real Estate Development Manager Name Role Phone No, Physician Primary Care Provider [phone] Encounter Details Date Type Department Care Team (Late st Contact Info) Description 05/27/2021 6:50 AM TAR AND AMMONIA PUMP OPERATOR Lab [address] [address] Cough Social History Tobacco Use Types Packs/Day Years Used Date Smoking Tobacco: Never Assessed Comments Unknown Sex and Gender Information Value Date Recorded Sex Assigned at Not on file Legal Sex Female 6:55 PM TAR AND AMMONIA PUMP OPERATOR Gender Identity Female 06/06/2022 7:40 AM TAR AND AMMONIA PUMP OPERATOR Sexual Orientation Not on file documented as of this encounter Plan of Treatment Not on file documented as of this encounter Procedures Procedure Name Priority Date/Time Associated Diagnosis Comments INFLUENZA A/B AND COVID-19 PCR Routine 05/26/2021 10:54 AM TAR AND AMMONIA PUMP OPERATOR Cough documented in this encounter Results * Influenza A/B and COVID-19 PCR Nasopharyngeal (05/26/2021 10:54 AM TAR AND AMMONIA PUMP OPERATOR) COVID-19 RNA Not Detected [facility] Comment: Interpretive Data Synonyms for this test include: PCR and NAAT . ??Testing performed by the [facility] Molecular Infectious Disease Laboratory. The 2019-Novel [...] 2020. Influenza A RNA Not Detected [facility] Influenza B RNA Not Detected [facility] Comment: Interpretive Data Testing performed [...] revised 2020. First COVID-19 test? No [facility] Employeed in healthcare? Yes [facility] status? No [facility] Group care resident? No [facility] Hospitalized? No [facility] Is patient in ICU? No [facility] Symptomatic as defined by CDC? Yes [facility] Nasopharyngeal 05/26/2021 10 :54 AM TAR AND AMMONIA PUMP OPERATOR 05/27/2021 8:34 AM TAR AND AMMONIA PUMP OPERATOR Narrative [facility] - 05/27/2021 6:57 PM TAR AND AMMONIA PUMP OPERATOR Patient is employed by/enrolled at:->[employer] Date of Symptom Onset->05/22/21 us Tanya Montaño MD LAB MICROBIOLOGY - GENERAL ORDERABLES Final Result [facility] Department [place] [address] documented in this encounter Visit Diagnoses Diagnosis Cough documented in this encounter Additional Health Concerns Infection Onset Date Last Indicated Resolved Time COVID: Suspected 05/26/2021 05/26/2021 05/27/2021 6:58 PM TAR AND AMMONIA PUMP OPERATOR documented as of this encounter Care Teams Real Estate Development Manager Relationship Specialty Start Date End Date No, Physician PCP - General 05/25/21 06/07/21 documented as of this encounter
--- OUTSIDE RECORDS SUMMARY | 2024-06-06 05:28 | XMS_ITS | Encounter Summary ---
Author Organization [facility] Healthcare Address [address] [place] [address] Care Team Providers Care Food Mobile Driver Name Role Phone Unavailable Primary Care Provider Unavailabl e Encounter Details Date Type Department Care Team (Latest Contact Info) Description 11/02/2014 11:59 AM CDT Hospital Encounter [facility] David Santos MD [address] [place] [address] Injury, other and unspecified, knee, leg, ankle, and foot Social History Tobacco Use Types Packs/Day Years Used Date Smoking Tobacco: Never Assessed Comments Unknown Sex and Gender Information Value Date Recorded Sex Assigned at Not on file Legal Sex Female 6:55 PM WASTEWATER PLANT OPERATOR Gender Identity Female 06/06/2022 7:40 AM WASTEWATER PLANT OPERATOR Sexual Orientation Not on file documented [...] Tran M.D. MJ:aleah 02:59 PM 02:59 PM [facility] [EOD] David Santos MD IMG MRI PROCEDURES Final Resu lt documented in this encounter Visit Diagnoses Diagnosis Injury, other and unspecified, knee, leg, ankle, and foot documented in this encounter
--- OUTSIDE RECORDS SUMMARY | 2024-06-06 05:28 | XMS_ITS | Encounter Summary ---
Author Organization [facility] Healthcare Address [address] [place] [address] Care Team Providers Care Card Player Name Role Phone Unavailable Primary Care Provider Unavailabl e Encounter Details Date Type Department Care Team (Late st Contact Info) Description 09/13/2014 7:38 PM CDT - 09/13/2014 10:18 PM CDT Hospital Encounter [facility] ER Rai Ferrera MD [address] [facility] [place] [address] Sprain of foot; Accident Social History Tobacco Use Types Packs/Day Years Used Date Smoking Tobacco: Never Assessed Comments Unknown Sex and Gender Information Value Date Recorded Sex Assigned at Not on file Legal Sex Female 6:55 PM INSTRUCTOR MODELING Gender Identity Female 06/06/2022 7:40 AM INSTRUCTOR MODELING Sexual Orientation Not on file documented as [...] 09/13/2014 7:5 0 PM CDT Growth Chart: [facility] (Girls, 2- 20 Years) documented in this [...] Laterality Modality Lower Extremities, Foot Right [facility] 09/13/2014 Impressions 09/13/2014 8:27 PM CDT ??No fracture or other osseous abnormality in the right foot. THIS IS AN ELECTRONICALLY VERIFIED REPORT 09/13/2014 8:24 PM: ??Fly Moreira M.D. Fly Moreira M.D. CN:abad 08:24 PM 08:[address] [facility] [EOD] Narrative 09/13/2014 8:27 PM CDT EXAMINATION: [...] M.D. CN:abad 08:24 PM 08:[address] [facility] [EOD] Luz Maria Harris NP IMG XR PROCEDURES Final Resul t documented in this encounter Visit Diagnoses Diagnosis Sprain of foot Sprain and strain of unspecified site of foot Accident Unspecified accident documented in this encounter
--- OUTSIDE RECORDS SUMMARY | 2024-06-06 05:28 | XMS_ITS | Encounter Summary ---
Author Organization [facility] Healthcare Address [address] [place] [address] Care Team Providers Care Molder Closed Molds Name Role Phone Unavailable Primary Care Provider Unavailabl e Encounter Details Date Type Department Care Team (Late st Contact Info) Description 12/20/2013 2:25 PM CDT - 12/20/2013 3:49 PM CDT Hospital Encounter [facility] Jacky Turner MD [address] [address] Sprain of foot; Overexertion or strenuous or repetitive movements or loads Social History Tobacco Use Types Packs/Day Years Used Date Smoking Tobacco: Never Assessed Comments Unknown Sex and Gender Information Value Date Recorded Sex Assigned at Not on file Legal Sex Female 6:55 PM SCRUB WHEEL OPERATOR Gender Identity Female 06/06/2022 7:40 AM SCRUB WHEEL OPERATOR Sexual Orientation Not on file documented [...] 12/20/2013 2:2 8 PM CDT Growth Chart: [facility] (Girls, 2- 20 Years) documented in this [...] Carmen M.D. DS:ds 02:52 PM 02:52 PM [facility] [EOD] Narrative 12/20/2013 3:01 PM [...] Carmen M.D. DS:rosaline 02:52 PM 02:52 PM [facility] [EOD] Barbara LEYVA IMG XR PROCEDURES Final R esult * XR Foot Right 3 or More Views (12/20/2013 12:00 AM CDT) Anatomical Region Laterality Modality Lower Extremities, Foot Right [facility] 12/20/2013 Impressions 12/20/2013 3:01 PM CDT ??Negative right foot. THIS IS AN ELECTRONICALLY VERIFIED REPORT 12/20/2013 2:53 PM: ??Jacky Carmen M.D. Jacky Carmen M.D. DS:rosaline 02:53 PM 02:53 PM [facility] [EOD] Narrative 12/20/2013 3:01 PM [...] Carmen M.D. DS:ds 02:53 PM 02:53 PM [facility] [EOD] Barbara LEYVA IMG XR PROCEDURES Final R esult documented in this encounter Visit Diagnoses Diagnosis Sprain of foot Sprain and strain of unspecified site of foot Overexertion or strenuous or repetitive movements or loads documented in this encounter
--- OUTSIDE RECORDS SUMMARY | 2024-06-06 05:28 | XMS_ITS | Encounter Summary ---
Author Organization [facility] Address [address] [facility] [address] [place] [address] Care Team Providers Care Insurance Agency Manager Name Role Phone No, Physician Primary Care Provider [phone] Reason for Visit * Reason Comments URI started saturday, coug h, sore throat vaccinated. Encounter Details Date Type Department Care Team (Latest Contact Info) Description 05/25/2021 1:15 PM MORTUARY BEAUTICIAN Office Visit [facility] Outpatient Center [address] [address] Lynda Thompson NP [address] [place] [address] [address] [place] [address] Acute nasopharyngitis (Primary Dx) Social History Tobacco Use Types Packs/Day Years Used Date Smoking Tobacco: Never Assessed Comments Unknown Sex and Gender Information Value Date Recorded Sex Assigned at Not on file Legal Sex Female 6:55 PM MORTUARY BEAUTICIAN Gender Identity Female 06/06/2022 7:40 AM MORTUARY BEAUTICIAN Sexual Orientation Not on file documented as of this encounter Last Filed Vital Signs Vital Sign Reading Time Taken Comments Blood Pressure 136/83 05/25/2021 1:15 PM MORTUARY BEAUTICIAN Pulse 97 05/25/2021 1:15 PM MORTUARY BEAUTICIAN Temperature 37 ??C (98.6 ??F) 05/25/2021 1:15 PM MORTUARY BEAUTICIAN Respiratory Rate 20 05/25/2021 1:15 PM MORTUARY BEAUTICIAN Oxygen Saturation 98% 05/25/2021 1:15 PM MORTUARY BEAUTICIAN Inhaled Oxygen Concentration - - Weight 134.3 kg (296 lb) 05/25/2021 1:15 PM MORTUARY BEAUTICIAN Height 162.6 cm (5' 4 ) 05/25/2021 1:15 PM MORTUARY BEAUTICIAN Body Mass Index 50.81 05/25/2021 1:15 PM MORTUARY BEAUTICIAN documented in this encounter Patient Instructions * Patient Instructions* Fiordaliza Coats MA - 05/25/2021 1:15 PM MORTUARY BEAUTICIAN Results for orders placed or performed in visit on 05/25/21 POC Influenza A/B, COVID-19 antigen Result Value Ref Range Inflenza A Ag, POC Negative Influenza B Ag, POC Negative COVID-19 Ag POC Presumptive Negative Presumptive Negative, Invalid POCT rapid strep A Result Value Ref Range Rapid Strep A, POC Negative Patient Education Cold Symptoms INCINERATOR PLANT GENERAL SUPERVISOR: Cold symptoms include sneezing, dry throat, a [...] ask them during your visits. ?? 2017 [employer] Information is for End User's use only and may not be sold, redistributed or otherwise used for commercial purposes. All illustrations and images included in CareNotes?? are the copyrighted property of [employer] Inc[employer] or [employer]. The above information is an band aid machine operator only. It is not intended as medical advice for individual conditions or treatments. Talk to your doctor, nurse or pharmacist before following any medical regimen to see if it is safe and effective for you. UARY BEAUTICIAN UARY BEAUTICIAN documented in this encounter Ordered Prescriptions Prescription [...] tenderness or frontal sinus tenderness. Mouth/Throat: Lips: [place]roy. Mouth: Mucous membranes are moist. Tongue: Tongue [...] Del Cid MD at 05/25/2021 2:08 PM MORTUARY BEAUTICIAN UARY BEAUTICIAN UARY BEAUTICIAN documented in this encounter Plan of Treatment Not on file documented as of this encounter Procedures Procedure Name Priority Date/Time Associated Diagnosis Comments POC INFLUENZA A/B, COVID-19 ANTIGEN Routine 05/25/2021 1:33 PM MORTUARY BEAUTICIAN Acute nasopharyngitis POCT RAPID STREP Routine 05/25/2021 1:33 PM MORTUARY BEAUTICIAN Acute nasopharyngitis documented in this encounter Results * POCT rapid strep A (05/25/2021 1:33 PM MORTUARY BEAUTICIAN) Rapid Strep A, POC Negative Swab 05/25/2021 1:33 PM MORTUARY BEAUTICIAN Lynda Thompson VITICULTURIST POINT OF CARE TEST ORDERABLES F inal Result * POC Influenza A/B, COVID-19 antigen (05/25/2021 1:33 PM MORTUARY BEAUTICIAN) Influenza A Ag, POC Negative [facility] Influenza B Ag, POC Negative [facility] COVID-19 Ag POC Presumptive Negative Presumptive Negative, Invalid [facility] Nasal 05/25/2021 1:33 PM MORTUARY BEAUTICIAN Lynda Thompson VITICULTURIST POINT OF CARE TEST ORDERABLES F inal Result [facility] [address] [place] [address] documented in this encounter Visit Diagnoses Diagnosis [...] COVID: Suspected 05/25/2021 05/25/2021 05/25/2021 1:34 PM MORTUARY BEAUTICIAN documented as of this encounter Care Teams Insurance Agency Manager Relationship Specialty Start Date End Date No, Physician PCP - General 05/25/21 06/07/21 documented as of this encounter
--- OUTSIDE RECORDS SUMMARY | 2024-06-06 05:28 | XMS_ITS | Encounter Summary ---
Author Organization [facility] Healthcare Address [address] [place] [address] Care Team Providers Care Cds Sales Advisor Name Role Phone Unavailable Primary Care Provider Unavailabl e Encounter Details Date Type Department Care Team (Late st Contact Info) Description 12/29/2020 1:20 PM CDT Lab [facility] Outpatient Lab [address] [place] [address] Social History Tobacco Use Types Packs/Day Years Used Date Smoking Tobacco: Never Assessed Comments Unknown Sex and Gender Information Value Date Recorded Sex Assigned at Not on file Legal Sex Female 6:55 PM SPLITTING MACHINE OPERATOR HELPER Gender Identity Female 06/06/2022 7:40 AM SPLITTING MACHINE OPERATOR HELPER Sexual Orientation Not on file documented as of this encounter Plan of Treatment Not on file documented as of this encounter Procedures Procedure Name Priority Date/Time Associated Diagnosis Comments T-SPOT.TB Routine 12/29/2020 1:20 PM CDT documented in this encounter Results * T-SPOT.TB (12/29/2020 1:20 PM CDT) T-SPOT.TB Negative Alissa PETERS [facility] Comment: Normal Value: Negative A negative test [...] test. T-SPOT.TB Panel A Spot Count 0 [facility] T-SPOT.TB Panel B Spot Count 0 [facility] T-SPOT.TB Negative Control Passed [facility] T-SPOT.TB Positive Control Passed [facility] Comment: Test Performed at: [employer] TB, [employer] [address] [place] [address] ??[id number] ? DEYVI EDMONDS MD,PHD Blood specimen (specimen) 12/29/2020 1:20 PM CDT 12/29/2020 1:45 PM CDT us Notinfile Unknown LAB MICROBIOLOGY - GENERAL ORD ERABLES Final Result [facility] [address] Department of Laboratories [place], [place] [id number] documented in this encounter Visit Diagnoses Not on filedocumented in this encounter
--- OUTSIDE RECORDS SUMMARY | 2024-06-06 05:28 | XMS_ITS | Encounter Summary ---
Author Organization [facility] Healthcare Address [address] [place] [address] Care Team Providers Care Shredding Floor Equipment Operator Name Role Phone Unavailable Primary Care Provider Unavailabl e Encounter Details Date Type Department Care Team (Latest Contact Info) Description 02/18/2014 4:54 PM CDT Hospital Encounter [facility] OP David Santos MD [address] [place] [address] Pain in soft tissues of limb Social History Tobacco Use Types Packs/Day Years Used Date Smoking Tobacco: Never Assessed Comments Unknown Sex and Gender Information Value Date Recorded Sex Assigned at Not on file Legal Sex Female 6:55 PM SCRATCH POLISHER Gender Identity Female 06/06/2022 7:40 AM SCRATCH POLISHER Sexual Orientation Not on file documented [...] Moreira M.D. CN:abad 05:25 PM 05:25 PM [facility] [EOD] Narrative 02/18/2014 5:29 PM CDT EXAMINATION: [...] Moreira M.D. CN:abad 05:25 PM 05:25 PM [facility] [EOD] us David Santos MD IMG XR PROCEDURES Final Resul t documented in this encounter Visit Diagnoses Diagnosis Pain in soft tissues of limb documented in this encounter
--- OUTSIDE RECORDS SUMMARY | 2024-06-06 05:28 | XMS_ITS | Encounter Summary ---
Author Organization [facility] Healthcare Address [address] [place] [address] Care Team Providers Care Manager Floor Name Role Phone Unavailable Primary Care Provider Unavailabl e Encounter Details Date Type Department Care Team (Latest Contact Info) Description 01/30/2018 3:55 PM CDT - 01/30/2018 4:16 PM CDT Hospital Encounter [facility] Miranda Mchugh, [address] [facility] [address] Rash and other nonspecific skin eruption Social History Tobacco Use Types Packs/Day Years Used Date Smoking Tobacco: Never Assessed Comments Unknown Sex and Gender Information Value Date Recorded Sex Assigned at Not on file Legal Sex Female 6:55 PM TRACK INSPECTOR Gender Identity Female 06/06/2022 7:40 AM TRACK INSPECTOR Sexual Orientation Not on file documented [...]
--- OUTSIDE RECORDS SUMMARY | 2024-06-06 05:28 | XMS_ITS | Encounter Summary ---
Author Organization [facility] Healthcare Address [address] [place] [address] Care Team Providers Care Signal Helper Name Role Phone Unavailable Primary Care Provider Unavailabl e Encounter Details Date Type Department Care Team (Latest Contact Info) Description 09/20/2014 5:10 PM CDT Hospital Encounter [facility] OP David Santos MD [address] [place] [address] Radiological examination Social History Tobacco Use Types Packs/Day Years Used Date Smoking Tobacco: Never Assessed Comments Unknown Sex and Gender Information Value Date Recorded Sex Assigned at Not on file Legal Sex Female 6:[address] Gender Identity Female 06/06/2022 7:[address] Sexual Orientation Not on file documented [...] Berry M.D. CH:[place] 07:18 PM 08:13 AM [facility] [EOD] Narrative 09/21/2014 8:40 AM CDT EXAMINATION: [...] Berry M.D. CH:[place] 07:18 PM 08:13 AM [facility] [EOD] us David Santos MD IMG XR PROCEDURES Final Resul t documented in this encounter Visit Diagnoses Diagnosis Radiological examination documented in this encounter
--- OUTSIDE RECORDS SUMMARY | 2024-06-06 05:28 | XMS_ITS | Encounter Summary ---
Author Organization [facility] Healthcare Address [address] [place] [address] Care Team Providers Care Relish Blender Name Role Phone Unavailable Primary Care Provider Unavailabl e Encounter Details Date Type Department Care Team (Latest Contact Info) Description 01/26/2016 12:24 PM CDT - 01/26/2016 1:01 PM CDT Hospital Encounter [facility] Amanda Horn MD [address] [place] [address] Fracture of right foot with routine healing Social History Tobacco Use Types Packs/Day Years Used Date Smoking Tobacco: Never Assessed Comments Unknown Sex and Gender Information Value Date Recorded Sex Assigned at Not on file Legal Sex Female 6:55 PM WINE BOTTLE INSPECTOR Gender Identity Female 06/06/2022 7:40 AM WINE BOTTLE INSPECTOR Sexual Orientation Not on file documented [...]
--- OUTSIDE RECORDS SUMMARY | 2024-06-06 05:28 | XMS_ITS | Encounter Summary ---
Author Organization [facility] Healthcare Address [address] [place] [address] Care Team Providers Care Gripper Installer Name Role Phone Unavailable Primary Care Provider Unavailabl e Encounter Details Date Type Department Care Team (Latest Contact Info) Description 01/20/2016 3:09 PM CDT - 01/20/2016 5:02 PM CDT Hospital Encounter [facility] [place], [address] [id number] Closed nondisplaced fracture of fourth metatarsal bone of right foot; Striking against other stationary object, initial encounter Social History Tobacco Use Types Packs/Day Years Used Date Smoking Tobacco: Never Assessed Comments Unknown Sex and Gender Information Value Date Recorded Sex Assigned at Not on file Legal Sex Female 6:55 PM [employer] Gender Identity Female 06/06/2022 7:40 AM [employer] Sexual Orientation Not on file documented [...] 01/20/2016 3:1 0 PM CDT Growth Chart: [facility] (Girls, 2- 20 Years) documented in [...] Laterality Modality Lower Extremities, Foot [facility] 01/20/2016 Impressions 01/20/2016 4:48 PM CDT ?? Nondisplaced fracture of the head of the fourth metatarsal. THIS IS AN ELECTRONICALLY VERIFIED REPORT 01/20/2016 4:45 PM: ??Pavan Miles M.D. ?? Pavan Miles M.D. AT:at 04:45 PM 04:45 PM [facility] [EOD] Narrative 01/20/2016 4:48 PM [...] osseous structures appear intact. Procedure Note Provider, Marcela, - 10/11/2020 EXAMINATION: Three views of the [...] Miles M.D. AT:at 04:45 PM 04:45 PM [facility] [EOD] Historical Provider IMG XR PROCEDURES Final R esult documented in this encounter Visit Diagnoses Diagnosis Closed nondisplaced fracture of fourth metatarsal bone of right foot Striking against other stationary object, initial encounter documented in this encounter
== END 2024-05-30 00:15 | disposition left against medical advice (07) ==
LOC: ANHED 04:18
PROVIDERS: Emergency Provider Emergency Medicine; PCP Family Medicine
DX: R21 Rash and other nonspecific skin eruption (principal)
CPT/HCPCS: 93005; 99199